=== PATIENT | female | born 1945 | race Caucasian/White ===

== ENCOUNTER → 2016-10-29 | Outpatient (CLI) | payer MEDICARE, OTHER ==
[~2016-10-29] MED LIST: AC500T PO; ASP81CT PO; ATEN25TA PO; ATN25T; ATR20T; CHOL500044 PO; CINN500C2 PO; CLON0.1T PO; DIPH25CA79 PO; DOXA1TAB2 PO; FAMO40TA72 PO; GMFB600T; HCTZ12.5T PO; LOSA50TA36 PO; MAGN-47 PO; METHOTREXATE PO; MILK OF MAGNESIA PO; MTX2.5T PO; OMEG1CAP24 PO; OXYC-12 PO; OXYC-188 PO; PHT5T PO; PRD20T PO; SENN1TAB76 PO; SUCR1TAB PO; TRM50T PO; WRF5T PO; [UNRECOGNIZED DRUG - CODE]
--- OUTSIDE RECORDS SUMMARY | 2016-10-29 13:49 | XMS REPORT | Continuity of Care Document ---
Author Author [facility] Organization [facility] Address Unknown Phone Unavailable Care Team Providers Care Meat Smoker Name Role Phone MONICA GREGORIO MD PCP Insurance Providers Payer Name Policy Number Subscriber Name Relationship Wps Medicare [id number] Narinder Gandara 18 Self / Same As Patient [employer] [id number] Narinder Gandara 18 Self / Same As Patient Advance Directives Directive Response Recorded Date/Time Advance Directives No 07/28/16 2:00pm Health Care Power of Pipe Line Repairer No 07/28/16 2:00pm Organ Donor No 07/28/16 2:00pm Resuscitation Status Full Code 07/28/16 2:00pm Problems Active Problems Medical Problem Onset Date Status Acute urticaria Unknown Acute Acute urticaria Unknown Acute Epigastric abdominal pain Unknown Acute Hypertension Unknown Acute Tachycardia Unknown Acute Medications Current Home Medications Medication Dose Units Route Directions Days/Qty Instructions Start Date Aspirin 81 Mg 81 Mg Oral Daily 09/01/11 Hydrochlorothiazide 12.5 Mg 12.5 Mg Oral Daily 09/01/11 Clonidine Hcl 0.1 Mg 0.1 Mg Oral Twice A Day 14 01/18/16 Famotidine 40 Mg 40 Mg Oral Daily 20 07/17/16 Sucralfate 1 Gm 1 Gm Oral Three Times A Day Before Meals 07/28/16 Doxazosin Mesylate 1 Mg 1 Mg Oral Twice A Day 07/28/16 Losartan Potassium 50 Mg 50 Mg Oral Twice A Day 07/28/16 [place]-3 Fatty Acids/Fish Oil 1 Each 1 Each Oral Daily 07/28/16 Cholecalciferol (Vitamin D3) 5,000 Unit 5,000 Unit Oral Weekly 07/28 Cinnamon Bark 500 Mg 500 Mg Oral Daily 07/28/16 Diphenhydramine Hcl 25 Mg 25 Mg Oral As Needed 07/28/16 Past Home Medications Medication Directions Ordered Status Papaverine Hcl 150 Mg Tab, 05/03/07 Discontinued Atenolol 25 Mg Tablet, 05/03/07 Discontinued Gemfibrozil 600 Mg Tablet, 05/03/07 Discontinued Atorvastatin Calcium 20 Mg Tablet, 05/03/07 Discontinued Atenolol 25 Mg Tablet, 1 Each Oral Twice A Day 09/01/11 Discontinued Oxycodone/Acetaminophen 1 Each Tablet, 1 - 2 Each Oral Three Times A Day as needed 09/01/11 Discontinued Phytonadione 5 Mg Tab, 1 Tab Oral Daily as needed 09/01/11 Discontinued Senna 1 Ea Tablet, 1 Ea Oral Twice A Day 09/01/11 Discontinued Tramadol Hcl 50 Mg Tab, 50 Mg Oral Every 6 Hours as needed 09/01/11 Discontinued Warfarin Sodium 5 Mg Tab, 5 Mg Oral Daily@18 09/01/11 Discontinued Acetaminophen 500 Mg Tablet, 1000 Mg Oral Every 6 Hours as needed 09/01/11 Discontinued Methotrexate 2.5 Mg Tab, 7.5 Mg Oral Every Mon And Tues 09/01/11 Discontinued Magnesium Hydroxide 400 Mg/5 Ml Oral.susp, 30 Ml Oral Twice A Day as needed 09/01/11 Discontinued Prednisone 20 Mg Tab, 20 Mg Oral Twice A Day 06/09/14 Discontinued Social History Social History Problem Response Recorded Date/Time Alcohol Use Denies Use 01/22/2016 9:48pm Recreational Drug Use No 01/22/2016 9:48pm Recent Foreign Travel No 07/28/2016 1:59pm Recent Infectious Disease Exposure No 07/28/2016 1:59pm Sexually Transmitted Disease No 07/28/2016 2:00pm HIV/AIDS No 07/28/2016 2:00pm Smoking Status Never a Smoker 07/28/2016 2:00pm Recent Hopitalizations No 07/28/2016 2:00pm Sexually Transmitted Disease No 07/28/2016 2:00pm Query Response Start Date Stop Date Smoking Status Never a Smoker Hospital Discharge Instructions No hospital discharge instructions. Plan of Care Discharge Date 07/28/16 2:12pm Prescriptions See Medication Section Functional Status No functional status results. Allergies, Adverse Reactions, Alerts Allergen Type Severity Reaction Status Last Updated triamterene ([id number]) Allergy Unknown Active 07/28/16 metoprolol ([id number]) Allergy Mild Active 01/22/16 Etanercept Allergy Intermediate HTN Active 01/22/16 Immunizations No immunization records. Vital Signs Acute Vital Signs Vital Response Date/Time Temperature (Fahrenheit) 97.1 degrees F (97.6 - 99.5) 07/17/2016 4:45pm Temperature (Calculated Celsius) 36.22207 degrees C (36.4 - 37.5) 07/17/2016 4:45pm Pulse Rate (adult) 50 bpm (60 - 90) 07/17/2016 6:10pm Respiratory Rate 16 bpm (12 - 24) 07/17/2016 6:10pm O2 Sat by Pulse Oximetry 99 % (88 - 100) 07/17/2016 6:10pm Blood Pressure 137/75 mm Hg 07/17/2016 6:10pm Blood Pressure Mean 111 mm Hg 07/17/2016 4:45pm Pain Numeric Pain Scale 3 07/17/2016 6:10pm Height (Feet) 5 feet 07/28/2016 1:59pm Height (Inches) 4.00 inches 07/28/2016 1:59pm Height (Calculated Centimeters) 162.148300 cm 07/28/2016 1:59pm Weight (Pounds) 201 pounds 07/28/2016 1:59pm Weight (Ounces) 6.0 oz 07/28/2016 1:59pm Weight (Calculated Grams) 32900.16 gm 07/28/2016 1:59pm Weight (Calculated Kilograms) 91.867787 kilograms 07/28/2016 1:59pm Calculated BMI 34.6 07/28/2016 1:59pm Capillary Refill Capillary Refill Less Than 3 Seconds 07/17/2016 4:45pm Results Laboratory Results Test Name Result Units Flags Reference Collection Date/Time Result Date/ Time Comments White Blood Count 8.7 10^3/uL 4.3-11.0 07/17/2016 4:55pm 07/17/2016 5: 08pm Red Blood Count 4.39 10^6/uL 4.35-5.85 07/17/2016 4:55pm 07/17/2016 5: 08pm Hemoglobin 13.1 G/DL 11.5-16.0 07/17/2016 4:55pm 07/17/2016 5:08pm Hematocrit 38 % 35-52 07/17/2016 4:55pm 07/17/2016 5:08pm Mean Corpuscular Volume 87 FL 80-99 07/17/2016 4:55pm 07/17/2016 5: 08pm Mean Corpuscular Hemoglobin 30 PG 25-34 07/17/2016 4:55pm 07/17/2016 5: 08pm Mean Corpuscular Hemoglobin Concent 34 G/DL 32-36 07/17/2016 4:55pm 5:08pm Red Cell Distribution Width 13.5 % 10.0-14.5 07/17/2016 4:55pm 2015 5:08pm Platelet Count 233 10^3/uL 130-400 07/17/2016 4:55pm 07/17/2016 5:08pm Mean Platelet Volume 10.5 FL H 7.4-10.4 07/17/2016 4:55pm 07/17/2016 5: 08pm Neutrophils (%) (Auto) 60 % 42-75 07/17/2016 4:55pm 07/17/2016 5:08pm Lymphocytes (%) (Auto) 28 % 12-44 07/17/2016 4:55pm 07/17/2016 5:08pm Monocytes (%) (Auto) 10 % 0-12 07/17/2016 4:55pm 07/17/2016 5:08pm Eosinophils (%) (Auto) 1 % 0-10 07/17/2016 4:55pm 07/17/2016 5:08pm Basophils (%) (Auto) 1 % 0-10 07/17/2016 4:55pm 07/17/2016 5:08pm Neutrophils # (Auto) 5.3 X 10^3 1.8-7.8 07/17/2016 4:55pm 07/17/2016 5: 08pm Lymphocytes # (Auto) 2.5 X 10^3 1.0-4.0 07/17/2016 4:55pm 07/17/2016 5: 08pm Monocytes # (Auto) 0.8 X 10^3 0.0-1.0 07/17/2016 4:55pm 07/17/2016 5: 08pm Eosinophils # (Auto) 0.1 10^3/uL 0.0-0.3 07/17/2016 4:55pm 07/17/2016 5 :08pm Basophils # (Auto) 0.0 10^3/uL 0.0-0.1 07/17/2016 4:55pm 07/17/2016 5: 08pm Prothrombin Time 12.6 SEC 12.2-14.7 07/17/2016 4:55pm 07/17/2016 5: 22pm INR Comment 1.0 0.8-1.4 07/17/2016 4:55pm 07/17/2016 5:22pm INTERPRETIVE DATA SUGGESTED THERAPEUTIC RANGE FOR INR'S: VENOUS THROMBOSIS, PULMONARY EMBOLISM, OR PREVENTION OF SYSTEMIC EMBOLISM (EG. IN ATRIAL FIBRILLATION): 2.0 - 3.0 MECHANICAL PROSTHETIC HEART VALVES: 2.5 - 3.5* *NOTE: INR'S UP TO 4.5 MAY BE NECESSARY IN SELECTED GROUPS OF HIGH RISK PATIENTS. [employer] OF [employer]ST PH[employer]ICIANS CONSENSUS CONFERENCE ON ANTITHROMBOTIC THERAPY (2000). Activated Partial Thromboplast Time 25 SEC 24-35 07/17/2016 4:55pm 5:22pm Sodium Level 141 MMOL/L 135-145 07/17/2016 4:55pm 07/17/2016 5:32pm Potassium Level 3.8 MMOL/L 3.6-5.0 07/17/2016 4:55pm 07/17/2016 5:32pm Chloride Level 108 MMOL/L H 98-107 07/17/2016 4:55pm 07/17/2016 5:32pm Carbon Dioxide Level 24 MMOL/L 21-32 07/17/2016 4:55pm 07/17/2016 5: 32pm Anion Gap 9 MMOL/L 5-14 07/17/2016 4:55pm 07/17/2016 5:32pm Blood Urea Nitrogen 19 MG/DL H 7-18 07/17/2016 4:55pm 07/17/2016 5:32pm Creatinine 0.79 MG/DL 0.60-1.30 07/17/2016 4:55pm 07/17/2016 5:32pm BUN/Creatinine Ratio 24 07/17/2016 4:55pm 07/17/2016 5:32pm Estimat Glomerular Filtration Rate > 60 07/17/2016 4:55pm 2015 5:32pm GFR INTERPRETIVE DATA UNITS FOR ESTIMATED GFR (eGFR): mL/min/1.73 M2 REFERENCE RANGE FOR ESTIMATED GFR (eGFR) eGFR NORMAL eGFR >60 MODERATELY DECREASED eGFR 30-59 SEVERLY DECREASED eGFR 15-29 KIDNEY FAILURE <15 (OR DIALYSIS) Glucose Level 96 MG/DL 70-105 07/17/2016 4:55pm 07/17/2016 5:32pm Calcium Level 9.3 MG/DL 8.5-10.1 07/17/2016 4:55pm 07/17/2016 5:32pm Magnesium Level 2.0 MG/DL 1.8-2.4 07/17/2016 4:55pm 07/17/2016 5:32pm Total Bilirubin 0.5 MG/DL 0.1-1.0 07/17/2016 4:55pm 07/17/2016 5:32pm Alkaline Phosphatase 56 U/L 40-136 07/17/2016 4:55pm 07/17/2016 5:32pm Aspartate Amino Transf (AST/SGOT) 22 U/L 5-34 07/17/2016 4:55pm 2015 5:32pm Alanine Aminotransferase (ALT/SGPT) 24 U/L 0-55 07/17/2016 4:55pm 07/17 5:32pm Troponin I < 0.30 NG/ML <0.30 07/17/2016 4:55pm 07/17/2016 5:36pm Myoglobin 46.3 NG/ML 10.0-92.0 07/17/2016 4:55pm 07/17/2016 5:36pm Total Protein 6.0 G/DL L 6.4-8.2 07/17/2016 4:55pm 07/17/2016 5:32pm Albumin 3.7 G/DL 3.2-4.5 07/17/2016 4:55pm 07/17/2016 5:32pm Lipase 46 U/L 8-78 07/17/2016 4:55pm 07/17/2016 5:32pm Procedures Procedure Status Date Provider(s) Tracing only of electrocardiogram Completed 07/17/16 TRAM ZAMORANO MD Encounters Encounter Location Arrival/Admit Date Discharge/Depart Date Attending Provider Departed Clinic [facility] 07/28/16 5:36am 10/26/16 2: 12pm TRAM PERALTA MD Departed Emergency Room [facility] 07/17/16 4:41pm 07/17 6:09pm TRAM ZAMORANO MD
--- NOTE | 2016-11-01 16:47 | Diagnostic Imaging Report ---
Bilateral screening mammogram. The current study was also evaluated with a Computer Aided Detection (CAD) system. INDICATION: Screening. No current complaints stated on the questionnaire. COMPARISON: 05/07/14 FINDINGS: The breasts are composed of scattered fibroglandular densities. There are scattered benign-appearing calcifications seen. Allowing for technique and positional differences, no suspicious change is seen. IMPRESSION: No significant change. ACR BI-RADS Category 2: Benign findings. Result letter will be mailed to the patient. Note: At least 10% of breast cancer is not imaged by mammography. Dictated by: Dictated on workstation # [id number]
== END ==
LOC: RAD 13:45
PROVIDERS: ATTEND Nurse Practitioner Family
DX: Z12.31 Encounter for screening mammogram for malignant neoplasm of breast (principal)

== ENCOUNTER 2016-11-29 09:44 | Emergency (ER) | payer MEDICARE, OTHER ==
[~2016-11-29] VITALS: Ht 165.1 cm; Wt 86.2 kg
--- OUTSIDE RECORDS SUMMARY | 2016-11-29 09:50 | XMS REPORT | Continuity of Care Document ---
Author Author [facility] Organization [facility] Address Unknown Phone Unavailable Care Team Providers Care Licensing Coordinator Name Role Phone MONICA GREGORIO MD PCP Insurance Providers Payer Name Policy Number Subscriber Name Relationship Wps Medicare [id number] Narinder Gandara 18 Self / Same As Patient [place] [employer] [id number] Narinder Gandara 17 Self / Same As Patient Advance Directives Directive Response Recorded Date/Time Advance Directives No 07/28/16 2:00pm Health Care Power of X Ray Technician No 07/28/16 2:00pm Organ Donor No 07/28/16 [...] 50 Mg Oral Twice A Day 07/28/16 [place]-3 Fatty Acids/Fish Oil 1 Each 1 Each [...] Type Severity Reaction Status Last Updated triamterene ([id number]) Allergy Unknown Active 07/28/16 metoprolol ([id number]) Allergy Mild Active 01/22/16 Etanercept Allergy Intermediate HTN Active 01/22/16 Immunizations No immunization records. Vital Signs Acute Vital Signs Vital Response Date/Time Temperature (Fahrenheit) 97.1 degrees F (97.6 - 99.5) 07/17/2016 4:45pm Temperature (Calculated Celsius) 36.13533 degrees C (36.4 - 37.5) 07/17/2016 4:45pm [...] 4.00 inches 07/28/2016 1:59pm Height (Calculated Centimeters) 162.342018 cm 07/28/2016 1:59pm Weight (Pounds) 201 pounds 07/28/2016 1:59pm Weight (Ounces) 6.0 oz 07/28/2016 1:59pm Weight (Calculated Grams) 41372.16 gm 07/28/2016 1:59pm Weight (Calculated Kilograms) 91.926644 kilograms 07/28/2016 1:59pm Calculated BMI 34.6 07/28/2016 [...] SELECTED GROUPS OF HIGH RISK PATIENTS. [employer] [employer] CONSENSUS CONFERENCE ON [...] Discharge/Depart Date Attending Provider Departed Clinic [facility] 07/28/16 5:36am 10/26/16 2: 12pm TRAM PERALTA MD Departed Emergency Room [facility] 07/17/16 4:41pm 07/17 6:09pm TRAM ZAMORANO MD
[2016-11-29] MEDS ORDERED: NS IV 500 ML 500 ML IV ONE ×2 (10:26→12:20)
--- NOTE | 2016-11-29 11:05 | ED General ---
General Chief Complaint: Dizziness/Syncope Stated Complaint: WEAKNESS Nursing Triage Note: c/o intermittant dizziness x 1 month. States BP has been fluctuating. Occasional cough. Nursing Sepsis Screen: No Definite Risk Source of Information: Patient Exam Limitations: No Limitations History of Present Illness Time Seen by Provider: 10:10 Initial Comments Here with overall not feeling well for the last month. She was diagnosed with influenza month ago and took the Tamiflu. Since she is reporting persistent weakness and still has some cough. Denies dysuria. States that she is persistently weak. Denies vomiting or diarrhea. Reports taking her meds as directed. Timing/Duration: 1 Week, Changing Over Time, Getting Worse Severity: Moderate Associated Systoms: No Chest Pain, CoughNo Fever/Chills, No Nausea/Vomiting, No Shortness of Air, Weakness Allergies and Home Medications Allergies Coded Allergies: etanercept (Verified Allergy, Intermediate, HTN, 01/22/16) metoprolol (Verified Allergy, Mild, 01/22/16) triamterene (Verified Allergy, Unknown, 07/28/16) Home Medications Cholecalciferol (Vitamin D3) 5,000 Unit Tablet 5,000 UNIT PO WEEKLY (Reported) Cinnamon Bark 500 Mg Capsule 500 MG PO DAILY (Reported) Clonidine HCl 0.1 Mg Tablet #14 0.1 MG PO BID Prescribed by: BELEN WONG on 01/18/16 1329 Diphenhydramine HCl 25 Mg Capsule 25 MG PO PRN (Reported) Doxazosin Mesylate 1 Mg Tablet 1 MG PO BID (Reported) Famotidine 40 Mg Tablet #20 40 MG PO DAILY Prescribed by: TRAM ZAMORANO MD on 07/17/16 1802 Hydrochlorothiazide 12.5 Mg Cap 12.5 MG PO DAILY (Reported) Losartan Potassium 50 Mg Tablet 50 MG PO BID (Reported) Alsey-3 Fatty Acids/Fish Oil 1 Each Capsule.dr 1 EACH PO DAILY (Reported) Constitutional: see HPINo chills, dizzinessNo fever EENTM: No nose congestion, No throat pain Respiratory: coughNo short of breath Cardiovascular: No chest pain, No edema Gastrointestinal: no symptoms reportedNo nausea, No vomiting Musculoskeletal: no symptoms reported Skin: no symptoms reported Psychiatric/Neurological: See HPI Anxiety Weakness Hematologic/Lymphatic: No Symptoms Reported All Other Systems Reviewed Negative Unless Noted: Yes Past Xcviham-Zavuvw-Olbfat Hx Patient Social History Alcohol Use: Denies Use Recreational Drug Use: No Smoking Status: Never a Smoker Recent Foreign Travel: No Contact w/Someone Who Travel: No Recent Infectious Disease Expo: No Recent Hopitalizations: No Immunizations Up To Date Tetanus Booster (TDap): Unknown Date of Influenza Vaccine: Jul 21, 2016 Seasonal Allergies Seasonal Allergies: No Surgeries HX Surgeries: Yes (EGD/COLONOSCOPY, BACK SURGERY) Surgeries: Gallbladder, Hysterectomy, Joint Replacement Respiratory Hx Respiratory Disorders: No Cardiovascular Hx Cardiac Disorders: Yes (ELEVATED TRIGLYCERIDES) Cardiac Disorders: Chronic Edema/Swelling, High Cholesterol, Hypertension, Palpitations Neurological Hx Neurological Disorders: Yes (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) Neurological Disorders: TIA, Vertigo Reproductive System Hx Reproductive Disorders: Yes (BENIGN TUMOR -HYSTERECTOMY AGE 29) Sexually Transmitted Disease: No HIV/AIDS: 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 Genitourinary Hx Genitourinary Disorders: Yes (AGE 8-KIDNEY INFECTION) Gastrointestinal Hx Gastrointestinal Disorders: Yes Gastrointestinal Disorders: Gastroesophageal Reflux, Chronic Constipation Musculoskeletal Hx Musculoskeletal Disorders: Yes (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) Musculoskeletal Disorders: Arthritis, Chronic Back Pain, Contracture Endocrine Hx Endocrine Disorders: No HEENT HX ENT Disorders: Yes (GLASSES, PARTIAL DENTURE) Loss of Vision: Bilateral Hearing Impairment: Denies Cancer Hx Cancer: No Psychosocial Hx Psychiatric Problems: No Integumentary HX Skin/Integumentary Disorder: Yes Skin/Integumentary Disorders: Psoriasis Blood Transfusions Hx Blood Disorders: No Adverse Reaction to a Blood Tr: No (N/A) Reviewed Nursing Assessment Reviewed/Agree w Nursing PMH: Yes Family Medical History Significant Family History: No Pertinent Family Hx Physical Exam Vital Signs Vital Sign - Last 12Hours 11/29/16 09:56 Temp 97.5 Pulse 62 Resp 18 B/P 150/76 Pulse Ox 98 O2 Delivery Room Air Capillary Refill : Less Than 3 Seconds General Appearance: No Apparent Distress WD/WN HEENT: PERRL/EOMI Pharynx Normal Neck: Non Tender Supple Respiratory: Lungs Clear Normal Breath Sounds Cardiovascular: Regular Rate, Rhythm No Murmur Gastrointestinal: Non Tender Soft Back: Normal Inspection No CVA Tenderness No Vertebral Tenderness Extremity: Non Tender No Calf Tenderness Neurologic/Psychiatric: Alert Oriented x3 Skin: Normal Color Warm/Dry Progress/Results/Core Measures Results/Orders Lab Results Laboratory Tests Test 11/29/16 11:05 11/29/16 11:10 Range/Units Alanine Aminotransferase (ALT/SGPT) 39 0-55 U/L Albumin 3.7 3.2-4.5 G/DL Alkaline Phosphatase 68 40-136 U/L Anion Gap 16 H 5-14 MMOL/L Aspartate Amino Transf (AST/SGOT) 26 5-34 U/L BUN/Creatinine Ratio 28 Basophils # (Auto) 0.0 0.0-0.1 10^3/uL Basophils (%) (Auto) 0 0-10 % Blood Urea Nitrogen 21 H 7-18 MG/DL C-Reactive Protein High Sensitivity 0.36 0.00-0.50 MG/DL Calcium Level 9.7 8.5-10.1 MG/DL Carbon Dioxide Level 20 L 21-32 MMOL/L Chloride Level 104 98-107 MMOL/L Creatinine 0.75 0.60-1.30 MG/DL D-Dimer 0.96 H 0.00-0.49 UG/ML Eosinophils # (Auto) 0.0 0.0-0.3 10^3/uL Eosinophils (%) (Auto) 0 0-10 % Estimat Glomerular Filtration Rate > 60 Glucose Level 88 70-105 MG/DL Hematocrit 42 35-52 % Hemoglobin 14.8 11.5-16.0 G/DL Lymphocytes # (Auto) 1.9 1.0-4.0 X 10^3 Lymphocytes (%) (Auto) 17 12-44 % Magnesium Level 2.0 1.8-2.4 MG/DL Mean Corpuscular Hemoglobin 30 25-34 PG Mean Corpuscular Hemoglobin Concent 35 32-36 G/DL Mean Corpuscular Volume 85 80-99 FL Mean Platelet Volume 10.7 H 7.4-10.4 FL Monocytes # (Auto) 1.2 H 0.0-1.0 X 10^3 Monocytes (%) (Auto) 11 0-12 % Neutrophils # (Auto) 7.9 H 1.8-7.8 X 10^3 Neutrophils (%) (Auto) 72 42-75 % Platelet Count 226 130-400 10^3/uL Potassium Level 3.1 L 3.6-5.0 MMOL/L Red Blood Count 4.92 4.35-5.85 10^6/uL Red Cell Distribution Width 13.8 10.0-14.5 % Sodium Level 140 135-145 MMOL/L Thyroid Stimulating Hormone (TSH) 3.23 0.35-4.94 UIU/ML Total Bilirubin 0.7 0.1-1.0 MG/DL Total Protein 6.3 L 6.4-8.2 G/DL Troponin I < 0.30 <0.30 NG/ML White Blood Count 11.1 H 4.3-11.0 10^3/uL Urine Bacteria NEGATIVE /HPF Urine Bilirubin NEGATIVE NEGATIVE Urine Casts NONE /LPF Urine Clarity SLIGHTLY CLOUDY Urine Color YELLOW Urine Crystals NONE /LPF Urine Culture Indicated NO Urine Glucose (UA) NEGATIVE NEGATIVE Urine Ketones NEGATIVE NEGATIVE Urine Leukocyte Esterase 1+ H NEGATIVE Urine Mucus NEGATIVE /LPF Urine Nitrite NEGATIVE NEGATIVE Urine Protein NEGATIVE NEGATIVE Urine RBC NONE /HPF Urine RBC (Auto) NEGATIVE NEGATIVE Urine Specific [place] 1.010 L 1.016-1.022 Urine Squamous Epithelial Cells 0-2 /HPF Urine Urobilinogen NORMAL NORMAL MG/DL Urine WBC NONE /HPF Urine pH 6.5 5-9 My Orders Orders-BELEN WONG MD Cbc With Automated Diff (11/29/16 10:26) Comprehensive Metabolic Panel (11/29/16 10:26) Hs C Reactive Protein (11/29/16 10:26) Fibrin Degradation Products (11/29/16 10:26) Magnesium (11/29/16 10:26) Troponin I (11/29/16 10:26) Ua Culture If Indicated (11/29/16 10:26) Saline Lock/Iv-Start (11/29/16 10:26) Ns Iv 500 Ml (Sodium Chloride 0.9%) (11/29/16 10:26) Ekg Tracing (11/29/16 10:26) Chest Pa/Lat (2 View) (11/29/16 10:26) Thyroid Stimulating Hormone (11/29/16 10:26) Ct Angio Chest W (11/29/16 12:09) Iohexol Injection (Omnipaque 350 Mg/Ml 1 (11/29/16 12:15) Sodium Chloride Flush (Catheter Flush Sy (11/29/16 12:15) Ns (Ivpb) (Sodium Chloride 0.9% Ivpb Bag (11/29/16 12:15) Ns Iv 500 Ml (Sodium Chloride 0.9%) (11/29/16 12:20) Medications Given in ED Current Medications Medications Dose Ordered Sig/Cheng Route Start Time Stop Time Status Last Admin Dose Admin Iohexol 125 ml ONCE ONCE IV 11/29/16 12:15 11/29/16 12:18 DC 11/29/16 13:35 125 ML Sodium Chloride 500 ml @ 0 mls/hr Q0M ONCE IV 11/29/16 10:26 11/29/16 10:29 DC 11/29/16 11:58 500 MLS/HR Sodium Chloride 500 ml @ 0 mls/hr Q0M ONCE IV 11/29/16 12:20 11/29/16 12:21 DC 11/29/16 13:09 0 MLS/HR Sodium Chloride 100 ml 100 ml ONCE ONCE IV 11/29/16 12:15 11/29/16 12:18 DC 11/29/16 13:35 80 ML Vital Signs/I&O Vital Sign - Last 12Hours 11/29/16 09:56 Temp 97.5 Pulse 62 Resp 18 B/P 150/76 Pulse Ox 98 O2 Delivery Room Air Blood Pressure Mean: 100 Progress Note : Progress Note Seen and evaluated. IV, labs, normal saline 500 mL bolus, EKG, chest x-ray and UA ordered. Monitor patient. D-dimer is elevated. CT angiogram chest ordered. Repeat normal saline 500 mL bolus. Monitor patient. 1435: I did discuss the case with Dr. Manuel. We did review workup including CT scan results. There was a note of pulmonary nodule that will need recheck in 4 months. I will send chart to Dr. Manuel's office. She will follow CT results and recommendations. All findings and concerns were discussed with the patient and family who agree. Patient has follow-up appointment with Dr. Manuel's nurse practitioner on and she will keep that appointment. Discharged home with return precautions. Patient verbalized understanding instructions and agreement with plan. ECG Initial ECG Impression Date: Nov 29, 2016 Initial ECG Impression Time: 11:26 Initial ECG Rate: 94 Initial ECG Rhythm: Normal Sinus Comment Sinus rhythm with leftward axis. Diffuse T-wave flattening. No evidence of ST elevation IN. Similar to previous of 07/17/16. Interpreted by me. Diagnostic Imaging Diagonstic Imaging: Xray Plain Films/CT/US/NM/MRI: chest Comments NAME: NARINDER SHAW Alex [facility] REC#: [id number] PT STATUS: REG ER : 1945 PHYSICIAN: BELEN WONG MD ADMIT DATE: 11/29/16/ER Signed Date of Exam: 11/29/16 CHEST PA/LAT (2 VIEW) PA and lateral views of the chest Indication: Dizziness. Cough. Findings: The lungs are clear. The heart size is normal. There is no effusion or pneumothorax The mediastinum and ayse appear unremarkable. Impression: Unremarkable study. Dictated by: Dictated on workstation # [id number] Dict: 11/29/16 1207 Trans: 11/29/[address] [facility] [id number] Interpreted by: MANUELA HARDY MD Electronically signed by:MANUELA HARDY MD 11/29/161208 Diagonstic Imaging: CT Plain Films/CT/US/NM/MRI: chest Comments NAME: NARINDER SHAW [facility] REC#: [id number] PT STATUS: REG ER : 1945 PHYSICIAN: BELEN WONG MD ADMIT DATE: 11/29/16/ER Signed Date of Exam: 11/29/16 CT ANGIO CHEST W PROCEDURE: CT angiography of the chest with contrast. TECHNIQUE: Multiple contiguous axial images were obtained through the chest after uneventful bolus administration of intravenous contrast. Reconstructed CTA MIP acquisitions were also performed. INDICATION: positive d-dimer. Dizziness. Weakness. 125 ML of Omnipaque 350 given the intravenously. Findings: The pulmonary arteries are well opacified with no filling defects to suggest pulmonary embolism. The thoracic aorta is normal in caliber. There are no dissection or aneurysm. Indeterminate pulmonary nodules are seen in the left the lower lobe and inferior lingula nodules up to 8 mm in size, and the nodule in the left suprahilar region centrally in the left upper lobe measuring 7 mm. No prior from studies are available to compare. No significant consolidation or mass. The heart size is at the upper limits of normal. There is a tiny pericardial effusion. No pleural effusion. No mediastinal mass or significantly enlarged lymph nodes is seen. No hilar or axillary lymphadenopathy. Sections of the upper abdomen demonstrate the diffuse hepatic steatosis. Cholecystectomy clips are seen. The osseous structures demonstrate mild degenerative changes. Impression: 1. No PE or aortic dissection. 2. Tiny pericardial effusion of uncertain significance. 3. Indeterminate the left suprahilar and left basilar pulmonary nodules up to 8 mm in size. Followup low dose the CT scan of the chest without contrast in 4 months is recommended for reevaluation. Dictated by: Dictated on workstation # [id number] Dict: 11/29/16 1421 Trans: 11/29/[address] [facility] [id number] Interpreted by: MANUELA HARDY MD Electronically signed by:MANUELA HARDY MD 11/29/16 1425 Departure Impression Impression: Primary Impression: Near syncope Additional Impressions: Hypokalemia Pulmonary nodule Disposition: HOME, SELF-CARE Condition: Improved Departure-Patient Inst. Decision time for Depature: 14:38 Referrals: MONICA MANUEL MD (PCP/Family) Primary Care Physician Patient Instructions: Hypokalemia (DC), Single Pulmonary Nodule, Syncope ( Fainting) (DC) Add. Discharge Instructions: All discharge instructions reviewed with patient and/or family. Voiced understanding. Follow-up with Dr. Manuel's office on as scheduled. Stop hydrochlorothiazide as directed by Dr. Manuel. This will be reviewed on at your next appointment. Continue other medications as prescribed. Eat a normal diet and drink a normal amount of fluids. Slowly return to activity. Return for worse pain, fever, vomiting, weakness, facial droop, slurred speech or other concerns as needed. Copy Copies To 1: MONICA MANUEL MD, TIMOTHY D MD Nov 29, 2016 11:05
[2016-11-29 11:12] LABS: BASOPHILS % (AUTO) 0 % (0-10); EOSINOPHILS % (AUTO) 0 % (0-10); LYMPHOCYTES # (AUTO) 1.9 X 10^3 (1.0-4.0); LYMPHOCYTES % (AUTO) 17 % (12-44); MEAN CORPUSCULAR HEMOGLOBIN 30 PG (25-34); MEAN CORPUSCULAR HGB CONC 35 G/DL (32-36); MEAN CORPUSCULAR VOLUME 85 FL (80-99); MEAN PLATELET VOLUME 10.7 FL (7.4-10.4); MONOCYTES # (AUTO) 1.2 X 10^3 (0.0-1.0); MONOCYTES % (AUTO) 11 % (0-12); NEUTROPHILS # (AUTO) 7.9 X 10^3 (1.8-7.8); NEUTROPHILS % (AUTO) 72 % (42-75); PLATELET COUNT 226 10^3/uL (130-400); RED BLOOD COUNT 4.92 10^6/uL (4.35-5.85); RED CELL DISTRIBUTION WIDTH 13.8 % (10.0-14.5); WHITE BLOOD COUNT 11.1 10^3/uL (4.3-11.0)
[2016-11-29 11:22] LABS: BILIRUBIN,URINE NEGATIVE (NEGATIVE); KETONES,URINE NEGATIVE (NEGATIVE); LEUKOCYTE ESTERASE ,URINE 1+ (NEGATIVE); NITRITE,URINE NEGATIVE (NEGATIVE); PH,URINE 6.5 (5-9); PROTEIN,URINE NEGATIVE (NEGATIVE); UROBILINOGEN,URINE NORMAL (NORMAL)
[2016-11-29 11:31] LABS: SQUAMOUS EPITHELIAL CELL,UR 0-2 /HPF
[2016-11-29 11:32] LABS: ALANINE AMINOTRANSFERASE 39 U/L (0-55); ALBUMIN 3.7 G/DL (3.2-4.5); ANION GAP 16 MMOL/L (5-14); ASPARTATE AMINO TRANSFERASE 26 U/L (5-34); BILIRUBIN,TOTAL 0.7 MG/DL (0.1-1.0); BLOOD UREA NITROGEN 21 MG/DL (7-18); BUN/CREATININE RATIO 28; CALCIUM 9.7 MG/DL (8.5-10.1); CARBON DIOXIDE 20 MMOL/L (21-32); CHLORIDE 104 MMOL/L (98-107); CREATININE SERUM 0.75 MG/DL (0.60-1.30); GFR ESTIMATED > 60; GLUCOSE 88 MG/DL (70-105); POTASSIUM 3.1 MMOL/L (3.6-5.0); SODIUM 140 MMOL/L (135-145); TOTAL PROTEIN 6.3 G/DL (6.4-8.2); hs C REACTIVE PROTEIN 0.36 MG/DL (0.00-0.50)
[2016-11-29 11:56] LABS: THYROID STIMULATING HORMONE 3.23 UIU/ML (0.35-4.94); TROPONIN I < 0.30 NG/ML (<0.30)
--- NOTE | 2016-11-29 12:07 | Diagnostic Imaging Report ---
PA and lateral views of the chest Indication: Dizziness. Cough. Findings: The lungs are clear. The heart size is normal. There is no effusion or pneumothorax The mediastinum and ayse appear unremarkable. Impression: Unremarkable study. Dictated by: Dictated on workstation # [id number]
[2016-11-29] MEDS ORDERED: CATHETER FLUSH 10 ML SYR IV PRN (12:15)
[2016-11-29] MEDS ORDERED: NS 100 ML (IVPB) BAG IV ONE (12:15)
[2016-11-29] MEDS ORDERED: IOHEXOL 350 MG/ML 150 ML (OMNIPAQUE 350) VIAL IV ONE (12:15)
--- NOTE | 2016-11-29 14:25 | Diagnostic Imaging Report ---
PROCEDURE: CT angiography of the chest with contrast. TECHNIQUE: Multiple contiguous axial images were obtained through the chest after uneventful bolus administration of intravenous contrast. Reconstructed CTA MIP acquisitions were also performed. INDICATION: positive d-dimer. Dizziness. Weakness. 125 ML of Omnipaque 350 given the intravenously. Findings: The pulmonary arteries are well opacified with no filling defects to suggest pulmonary embolism. The thoracic aorta is normal in caliber. There are no dissection or aneurysm. Indeterminate pulmonary nodules are seen in the left the lower lobe and inferior lingula nodules up to 8 mm in size, and the nodule in the left suprahilar region centrally in the left upper lobe measuring 7 mm. No prior from studies are available to compare. No significant consolidation or mass. The heart size is at the upper limits of normal. There is a tiny pericardial effusion. No pleural effusion. No mediastinal mass or significantly enlarged lymph nodes is seen. No hilar or axillary lymphadenopathy. Sections of the upper abdomen demonstrate the diffuse hepatic steatosis. Cholecystectomy clips are seen. The osseous structures demonstrate mild degenerative changes. Impression: 1. No PE or aortic dissection. 2. Tiny pericardial effusion of uncertain significance. 3. Indeterminate the left suprahilar and left basilar pulmonary nodules up to 8 mm in size. Followup low dose the CT scan of the chest without contrast in 4 months is recommended for reevaluation. Dictated by: Dictated on workstation # [id number]
[2016-11-29] MEDS ORDERED: KCL 10 MEQ TAB (MICRO K) PO ONE (14:45)
[2016-11-29 15:02] VITALS: BP 132/70
== END 2016-11-29 15:02 | disposition home or self-care (01) ==
LOC: EDUNIT# 09:44 → ER 09:45
DX: R55 Syncope and collapse (principal); E87.6 Hypokalemia; J90 Pleural effusion, not elsewhere classified; R91.8 Other nonspecific abnormal finding of lung field; I10 Essential (primary) hypertension; Z79.899 Other long term (current) drug therapy
CPT/HCPCS: 36415; 71020; 71275; 80053; 81000; 83735; 84443; 84484; 85025; 85379; 86141; 93005; 96360; 96361

== ENCOUNTER → 2017-04-15 | Outpatient (CLI) | payer MEDICARE, OTHER ==
--- NOTE | 2017-04-15 15:56 | Diagnostic Imaging Report ---
PROCEDURE: CT chest without contrast. TECHNIQUE: Multiple contiguous axial images were obtained through the chest without the use of intravenous contrast. INDICATION: Pulmonary nodule. Compared November 29, 2016. FINDINGS: The left basilar nodule in the far inferior aspect of the lingula anterior to the major fissure had previously measured 8 mm and is no longer clearly apparent. There is some linear scarring or subsegmental atelectasis in this region but no mass. Some trace atelectasis in the right middle lobe and posterior sulcal left lower lobe noted as well. No findings suggestive of pneumonia, however. There is no evidence for thoracic adenopathy and no effusion or pneumothorax. No acute chest wall pathology. IMPRESSION: Resolution of left basilar nodule. No suspicious mass on followup. Trace zones of atelectasis, otherwise negative. No acute or suspicious abnormality. Dictated by: Dictated on workstation # [id number]
== END ==
LOC: RAD 13:40
PROVIDERS: ATTEND Nurse Practitioner Family
DX: R91.1 Solitary pulmonary nodule (principal)
CPT/HCPCS: 71250

== ENCOUNTER 2018-01-02 23:56 | Emergency (ER) | payer MEDICARE, OTHER ==
[~2018-01-02] VITALS: Ht 162.6 cm; Wt 90.7 kg
--- OUTSIDE RECORDS SUMMARY | 2018-01-03 00:06 | XMS REPORT | CCD ---
Author Author [facility] Organization [facility] Address [address] [place] [address] Phone Care Team Providers Care Energy Attorney Name Role Phone PP Unavailable CCM Unavailable Summary Purpose Interface Exchange Insurance Providers Payer name Policy type / Coverage type Covered libertarian ID Effective Begin Date Effective End Date WPS Medicare Part B Medicare Part B [id number] 2013 Unknown [employer] Medicare Part B [id number] Unknown Family history Mother Diagnosis Age At Onset Diabetes Unknown Brother Diagnosis Age At Onset Diabetes Unknown Heart disease Unknown Son Diagnosis Age At Onset No Family Disease Entered N/A Father Diagnosis Age At Onset Prostatic cancer Unknown Heart disease Unknown Leukemia Unknown Sister Diagnosis Age At Onset Diabetes Unknown Social History Social History Element Codes Description Effective Dates Employment Unknown 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 09/08/2015 Marital status Unknown 07/13/[address]: 005956205 Nonsmoker 07/13/[address]: 979331901 Never drinks alcohol 07/13/2011 Allergies, Adverse Reactions, Alerts Substance Reaction Codes Entered Date Inactivated Date Status Metoprolol Succinate anaphylaxis, rash RxNorm: 6918 02/13/2016 No Inactive Date Active Past Medical History Illness Codes Condition Status Onset Date Resolved Date Other specified intestinal infections ICD-9: 009.0 ICD-10: A08.8 Active 08/03/2017 Unknown Encounter for immunization ICD-9: V04.81 ICD-10: Z23 Active 07/05/2017 Unknown Essential (primary) hypertension ICD-9: 401.1 ICD-10: I10 Active 07/21/2016 Unknown Myalgia ICD-9: 729.1 ICD-10: M79.1 Active 07/05/2017 Unknown Personal history of poliomyelitis ICD-9: V12.02 ICD-10: Z86.12 Active 07/05/2017 Unknown 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 Active 07/05/2017 Unknown Vitamin D deficiency, unspecified ICD-9: 268.9 ICD-10: E55.9 Active 07/05/2017 Unknown Allergic rhinitis due to pollen ICD-9: 477.9 ICD-10: J30.1 Active 11/22/2016 Unknown Acute laryngopharyngitis ICD-9: 465.0 ICD-10: J06.0 Active 11/05/2016 Unknown Influenza due to unidentified influenza virus with other respiratory manifestations ICD-9: 487.1 ICD-10: J11.1 Active 11/05/2016 Unknown Gastro-esophageal reflux disease without esophagitis ICD-9: 530.81 ICD-10: K21.9 Active 07/21/2016 Unknown Abdominal distension (gaseous) ICD-9: 787.3 ICD-10: R14.0 Active 05/19/2016 Unknown Essential (primary) hypertension ICD-9: 401.9 ICD-10: I10 Active 02/12/2016 Unknown Body mass index (BMI) 36.0-36.9, adult ICD-9: V85.36 ICD-10: Z68.36 Active 01/01/2016 Unknown Benign paroxysmal vertigo, bilateral ICD-9: 386.11 ICD-10: H81.13 Active 04/10/2012 Unknown Radiculopathy, cervical region ICD-9: 723.1 ICD-10: M54.12 Active 03/16/2012 Unknown Myositis, unspecified ICD-9: 729.1 ICD-10: M60.9 Active 03/20/2014 Unknown Other specified nonscarring hair loss ICD-9: 704.09 ICD-10: L65.8 Active 07/08/2015 Unknown Psoriasis, unspecified ICD-9: 696.1 ICD-10: L40.9 Active 07/08/2015 Unknown PALPITATIONS ICD-9: 785.1 Active 01/03/2015 Unknown Shoulder pain ICD-9: 719.41 Active 01/03/2015 Unknown Sacroiliitis ICD-9: 720.2 Active 09/16/2014 Unknown Arrhythmia ICD-9: 427.9 Active 08/15/2014 Unknown Nausea ICD-9: 787.02 Active 08/15/2014 Unknown Allergic reaction ICD- 9: 995.3 Active 06/12/2014 Unknown Back pain ICD-9: 724.5 Active 06/12/2014 Unknown ESSENTIAL HYPERTENSION ICD-9: 401.9 Active 06/12/2014 Unknown MYALGIA AND MYOSITIS ICD-9: 729.1 Active 03/20/2014 Unknown Thoracic back pain ICD -9: 724.1 Active 03/20/2014 Unknown Bleeding from the nose ICD-9: 784.7 Active 09/20/2012 Unknown Hair loss ICD-9: 704.00 Active 09/20/2012 Unknown Vitamin d deficiency ICD-9: 268.9 Active 09/20/2012 Unknown BPPV (benign paroxysmal positional vertigo) ICD-9: 386.11 Active 04/10/2012 Unknown Diverticulitis ICD-9: 562.11 Active 04/10/2012 Unknown Neck pain ICD-9: 723.1 Active 03/16/2012 Unknown Constipation - functional ICD-9: 564.09 Active 02/03/2012 Unknown HYPERLIPIDEMIA ICD-9: 272.4 Active 11/04/2011 Unknown VITAMIN DEFICIENCY ICD -9: 269.2 Active 11/04/2011 Unknown Diphtheria Unknown Active 07/13/2011 Unknown Disability Unknown Active 07/13/2011 Unknown Fibromyalgia Unknown Active 07/13/2011 Unknown Hyperlipidemia Unknown Active 07/13/2011 Unknown Hypertension Unknown Active 07/13/2011 Unknown Polio Unknown Active 07/13/2011 Unknown Post polio syndrome Unknown Active 07/13/2011 Unknown Psoriasis Unknown Active 07/13/2011 Unknown Rabies Unknown Active 07/13/2011 Unknown Scoliosis Unknown Active 07/13/2011 Unknown Vestibular response Unknown Active 07/13/2011 Unknown Vitamin D Deficiency Unknown Active 07/13/2011 Unknown Abdominal pain ICD-9: 789.00 Active 07/13/2011 Unknown 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 Active 07/13/2011 Unknown OBESITY ICD-9: 278.00 Active 07/13/2011 Unknown Postprandial bloating ICD-9: 787.3 Active 07/13/2011 Unknown Seasonal allergies ICD -9: 477.9 Active 07/13/2011 Unknown VAC STREP PNEUMONIAE-FLU ICD-9: V06.6 Active 07/13/2011 Unknown Problems Condition Codes Effective Dates Condition Status Other specified intestinal infections ICD-9: 009.0 ICD-10: A08.8 08/03/2017 Active Encounter for immunization ICD-9: V04.81 ICD-10: Z23 07/05/2017 Active Essential (primary) hypertension ICD-9: 401.1 ICD-10: I10 07/21/2016 Active Myalgia ICD-9: 729.1 ICD-10: M79.1 07/05/2017 Active Personal history of poliomyelitis ICD-9: V12.02 ICD-10: Z86.12 07/05/2017 Active 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 07/05/2017 Active Vitamin D deficiency, unspecified ICD-9: 268.9 ICD-10: E55.9 07/05/2017 Active Allergic rhinitis due to pollen ICD-9: 477.9 ICD-10: J30.1 11/22/2016 Active Acute laryngopharyngitis ICD-9: 465.0 ICD-10: J06.0 11/05/2016 Active Influenza due to unidentified influenza virus with other respiratory manifestations ICD-9: 487.1 ICD-10: J11.1 11/05/2016 Active Gastro-esophageal reflux disease without esophagitis ICD-9: 530.81 ICD-10: K21.9 07/21/2016 Active Abdominal distension (gaseous) ICD-9: 787.3 ICD-10: R14.0 05/19/2016 Active Essential (primary) hypertension ICD-9: 401.9 ICD-10: I10 02/12/2016 Active Body mass index (BMI) 36.0-36.9, adult ICD-9: V85.36 ICD-10: Z68.36 01/01/2016 Active Benign paroxysmal vertigo, bilateral ICD-9: 386.11 ICD-10: H81.13 04/10/2012 Active Radiculopathy, cervical region ICD-9: 723.1 ICD-10: M54.12 03/16/2012 Active Myositis, unspecified ICD-9: 729.1 ICD-10: M60.9 03/20/2014 Active Other specified nonscarring hair loss ICD-9: 704.09 ICD-10: L65.8 07/08/2015 Active Psoriasis, unspecified ICD-9: 696.1 ICD-10: L40.9 07/08/2015 Active PALPITATIONS ICD-9: 785.1 01/03/2015 Active Shoulder pain ICD-9: 719.41 01/03/2015 Active Sacroiliitis ICD-9: 720.2 09/16/2014 Active Arrhythmia ICD-9: 427.9 08/15/2014 Active Nausea ICD-9: 787.02 08/15/2014 Active Allergic reaction ICD- 9: 995.3 06/12/2014 Active Back pain ICD-9: 724.5 06/12/2014 Active ESSENTIAL HYPERTENSION ICD-9: 401.9 06/12/2014 Active MYALGIA AND MYOSITIS ICD-9: 729.1 03/20/2014 Active Thoracic back pain ICD -9: 724.1 03/20/2014 Active Bleeding from the nose ICD-9: 784.7 09/20/2012 Active Hair loss ICD-9: 704.00 09/20/2012 Active Vitamin d deficiency ICD-9: 268.9 09/20/2012 Active BPPV (benign paroxysmal positional vertigo) ICD-9: 386.11 04/10/2012 Active Diverticulitis ICD-9: 562.11 04/10/2012 Active Neck pain ICD-9: 723.1 03/16/2012 Active Constipation - functional ICD-9: 564.09 02/03/2012 Active HYPERLIPIDEMIA ICD-9: 272.4 11/04/2011 Active VITAMIN DEFICIENCY ICD -9: 269.2 11/04/2011 Active Diphtheria Unknown 07/13/2011 Active Disability Unknown 07/13/2011 Active Fibromyalgia Unknown 07/13/2011 Active Hyperlipidemia Unknown 07/13/2011 Active Hypertension Unknown 07/13/2011 Active Polio Unknown 07/13/2011 Active Post polio syndrome Unknown 07/13/2011 Active Psoriasis Unknown 07/13/2011 Active Rabies Unknown 07/13/2011 Active Scoliosis Unknown 07/13/2011 Active Vestibular response Unknown 07/13/2011 Active Vitamin D Deficiency Unknown 07/13/2011 Active Abdominal pain ICD-9: 789.00 07/13/2011 Active 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 07/13/2011 Active OBESITY ICD-9: 278.00 07/13/2011 Active Postprandial bloating ICD-9: 787.3 07/13/2011 Active Seasonal allergies ICD -9: 477.9 07/13/2011 Active VAC STREP PNEUMONIAE-FLU ICD-9: V06.6 07/13/2011 Active Medications Medication Codes Instructions Start Date Stop Date Status Fill Instructions hydrochlorothiazide 12.5 mg tablet RxNorm: 864899 1 Tablet(s) PO daily 10/28/2017 10/22/2018 Active famotidine 40 mg tablet RxNorm: 204644 TAKE 1 TABLET BY MOUTH EVERY MORNING 10/04/2017 09/28/2018 Active - Ref: 795308521 clonidine HCl 0.1 mg tablet RxNorm: 030192 1/2 Tablet(s) PO BID 07/05/2017 No Stop Date Active doxazosin 1 mg tablet RxNorm: 206159 1 Tablet(s) PO daily at midnight 07/05/2017 No Stop Date Active midnight doxazosin 1 mg tablet RxNorm: 128359 1 Tablet(s) PO BID 201607/04/2017 Inactive midnight prednisone 20 mg tablet RxNorm: 642398 3 Tablet(s) PO daily 11/26/2016 Inactive Tessalon Perles 100 mg capsule RxNorm: 983981 1 -2 Capsule(s) PO TID as needed cough 11/19/2016 No Stop Date Active Zithromax Z-Jeff 250 mg tablet RxNorm: 718605 1 Tablet(s) PO UD 11/19/2016 12/01/2016 Inactive z pack as directed Tamiflu 75 mg capsule RxNorm: 702507 1 Capsule(s) PO BID 201611/09/2016 Inactive Kenalog 40 mg/mL suspension for injection RxNorm: 9989804 Milliliter(s) Inj 11/05/2016 11/05/2016 Inactive Tessalon Perles 100 mg capsule RxNorm: 164179 1 -2 Capsule(s) PO TID as needed cough 11/04/2016 11/18/2016 Inactive famotidine 40 mg tablet RxNorm: 079592 1 Tablet(s) PO QAM 10/2510/03/2017 Inactive famotidine 40 mg tablet RxNorm: 048413 1 Tablet(s) PO QAM 08/0210/24/2016 Inactive Carafate 1 gram tablet RxNorm: 256615 1 Tablet(s) PO TID DISSOLVE THE PILL IN 10ML OF WATER 07/22/2016 10/19/2016 Inactive clonidine HCl 0.1 mg tablet RxNorm: 510595 1 Tablet(s) PO BID and 1 tablet as needed 07/22/2016 12/01/2016 Inactive aspirin 81 mg tablet,delayed release RxNorm: 115627 1 Tablet(s) PO QHS 05/19/2016 No Stop Date Active Cinnamon 1000 mg RxNorm: 1 PO daily 05/19/2016 No Stop Date Active losartan 25 mg tablet RxNorm: 796574 1 Tablet(s) PO BID 2015 No Stop Date Active atenolol 25 mg tablet RxNorm: 766612 1.5 Tablet(s) PO BID 201507/21/2016 Inactive losartan 25 mg tablet RxNorm: 578141 2 Tablet(s) PO BID 201505/11/2016 Inactive Cardizem CD 240 mg capsule,extended release RxNorm: 245344 1 Capsule(s) PO daily 01/13/2016 02/12/2016 Inactive losartan 100 mg tablet RxNorm: 817442 1/2 Tablet(s) PO BID 04/201601/12/2016 Inactive losartan 25 mg tablet RxNorm: 457344 2 Tablet(s) PO QPM 1 Tablet(s) PO QPM 12/18/2015 01/07/2016 Inactive atenolol 25 mg tablet RxNorm: 586082 1.5 Tablet(s) PO BID TAKE ONE TABLET BY MOUTH TWICE A DAY 12/18/2015 01/12/2016 Inactive atenolol 25 mg tablet RxNorm: 755245 Tablet(s) TAKE ONE TABLET BY MOUTH TWICE A DAY 11/14/2015 12/17/2015 Inactive losartan 25 mg tablet RxNorm: 562533 Tablet(s) 1 Tablet(s) PO QPM 11/14/2015 12/17/2015 Inactive spironolactone 25 mg tablet RxNorm: 455743 1 Tablet(s) PO daily 11/14/2015 12/14/2015 Inactive atenolol 25 mg tablet RxNorm: 341835 TAKE ONE TABLET BY MOUTH TWICE A DAY 08/07/2015 11/13/2015 Inactive atenolol 25 mg tablet RxNorm: 071508 1 Tablet(s) PO daily TAKE ONE TABLET BY MOUTH TWICE DAILY 08/06/2015 08/06/2015 Inactive Generic For:TENORMIN 25 MG TABLET 05/05 10:00:22 AM atenolol 25 mg tablet RxNorm: 244106 1 Tablet(s) PO daily TAKE ONE TABLET BY MOUTH TWICE DAILY 08/06/2015 08/05/2015 Inactive Generic For:TENORMIN 25 MG TABLET 05/05 10:00:22 AM betamethasone dipropionate 0.05 % topical ointment RxNorm: 358747 1 TOP TID as needed rash 07/09/2015 05/18/2016 Inactive betamethasone dipropionate 0.05 % topical ointment RxNorm: 782073 1 TOP TID as needed rash 07/09/2015 07/08/2015 Inactive spironolactone 25 mg tablet RxNorm: 175456 1 Tablet(s) PO daily 07/09/2015 07/08/2015 Inactive spironolactone 25 mg tablet RxNorm: 362007 1 Tablet(s) PO daily 07/09/2015 11/13/2015 Inactive losartan 25 mg tablet RxNorm: 180489 Tablet(s) 1 Tablet(s) PO QPM 05/27/2015 11/13/2015 Inactive atenolol 25 mg tablet RxNorm: 257815 TAKE ONE TABLET BY MOUTH TWICE DAILY 05/05/2015 08/05/2015 Inactive Generic For:TENORMIN 25 MG TABLET 05/05/2015 10:00:22 AM hydrochlorothiazide 25 mg tablet RxNorm: 963331 1/2 Tablet(s) PO BID 02/17/2015 07/08/2015 Inactive Generic For:HYDRODIURIL 25 MG TABLET sulfamethoxazole 800 mg-trimethoprim 160 mg tablet RxNorm: 659207 1 Tablet(s) PO BID 01/16/2015 01/25/2015 Inactive losartan 25 mg tablet RxNorm: 730303 1 Tablet(s) PO QPM 201405/26/2015 Inactive Kenalog 40 mg/mL suspension for injection RxNorm: 6084135 1 Milliliter(s) Inj 09/16/2014 09/16/2014 Inactive prednisone 20 mg tablet RxNorm: 487108 3 Tablet(s) PO daily 09/18/2014 Inactive losartan 25 mg tablet RxNorm: 032995 1 Tablet(s) PO QPM 201312/08/2014 Inactive hydrochlorothiazide 25 mg tablet RxNorm: 913440 TAKE 1/2 TABLET BY MOUTH TWICE DAILY 08/13/2014 02/08/2015 Inactive Generic For:HYDRODIURIL 25 MG TABLET atenolol 25 mg tablet RxNorm: 545585 TAKE ONE TABLET BY MOUTH TWICE DAILY 05/07/2014 05/01/2015 Inactive Generic For:TENORMIN 25 MG TABLET ketorolac 60 mg/2 mL intramuscular solution RxNorm: 822328 2 Milliliter(s) IM 03/20/2014 03/20/2014 Inactive hydrochlorothiazide 25 mg tablet RxNorm: 692635 Tablet(s) PO TAKE 1/2 TABLET BY MOUTH TWICE DAILY 02/14/2014 08/12/2014 Inactive Generic For:HYDRODIURIL 25 MG TABLET Generic For:HYDRODIURIL 25 MG TABLET 02/14/2014 3:45:03 PM atorvastatin 10 mg tablet RxNorm: 016600 1 Tablet(s) PO TIW 03/19/2014 Inactive atorvastatin 10 mg tablet RxNorm: 165089 tablet oral 201206/04/2015 Inactive hydrochlorothiazide 25 mg tablet RxNorm: 262703 Tablet(s) PO TAKE 1/2 TABLET BY MOUTH TWICE DAILY 08/06/2013 02/13/2014 Inactive Generic For:HYDRODIURIL 25 MG TABLET Generic For:HYDRODIURIL 25 MG TABLET 08/06/2013 1:52:35 PM amoxicillin 500 mg tablet RxNorm: 296245 2 Tablet(s) PO 2 tablets PO 1 hour before dental procedure. 07/26/20132012 Inactive amoxicillin 500 mg tablet RxNorm: 923708 2 Tablet(s) PO 2 tablets PO 1 hour before dental procedure. 07/26/20132012 Inactive methotrexate sodium 2.5 mg tablet RxNorm: 120096 tablet oral 01/15/2015 Inactive atenolol 25 mg tablet RxNorm: 452926 Tablet(s) PO TAKE ONE TABLET BY MOUTH TWICE DAILY 05/01/2013 05/06/2014 Inactive Generic For:TENORMIN 25 MG TABLET hydrochlorothiazide 25 mg tablet RxNorm: 626343 Tablet(s) PO TAKE 1/2 TABLET BY MOUTH TWICE DAILY 11/21/2012 08/05/2013 Inactive Generic For:HYDRODIURIL 25 MG TABLET atenolol 25 mg tablet RxNorm: 617966 Tablet(s) PO TAKE ONE TABLET BY MOUTH TWICE DAILY 10/02/2012 04/30/2013 Inactive Generic For:TENORMIN 25 MG TABLET gemfibrozil 600 mg tablet RxNorm: 689914 1 Tablet(s) PO BID 03/201210/08/2012 Inactive meclizine 25 mg tablet RxNorm: 223819 1 Tablet(s) PO Q4 PRN 03/201209/05/2012 Inactive prednisone 10 mg Tab RxNorm: 323453 2 Tablet(s) PO daily 201103/20/2012 Inactive atorvastatin 10 mg Tab RxNorm: 182759 1 Tablet(s) PO daily 12/20/2011 Inactive atorvastatin 10 mg Tab RxNorm: 658424 1 Tablet(s) PO daily 06/08/2012 Inactive methotrexate sodium 2.5 mg Tab RxNorm: 484083 Tablet(s) PO 06/12/2012 Inactive 3 on tuesday3 on hydrochlorothiazide 25 mg Tab RxNorm: 425703 1/2 Tablet(s) PO BID 11/01/2011 11/24/2012 Inactive hydrochlorothiazide 12.5 mg Cap RxNorm: 561392 Capsule(s) PO 06/08/2012 Inactive TAKE ONE TABLET BY MOUTH TWICE DAILY;Generic For:MICROZIDE 12.5 MG CAPSULE hydrochlorothiazide 25 mg Tab RxNorm: 041848 1/2 Tablet(s) PO BID 11/01/2011 11/24/2012 Inactive hydrochlorothiazide 25 mg tablet RxNorm: 343973 1/2 Tablet(s) PO BID 11/01/2011 10/31/2011 Inactive hydrochlorothiazide 25 mg Tab RxNorm: 317195 1/2 Tablet(s) PO BID 11/01/2011 10/31/2011 Inactive atenolol 25 mg tablet RxNorm: 861605 Tablet(s) PO 10/04/2011 10/01/2012 Inactive TAKE ONE TABLET BY MOUTH TWICE DAILY;Generic For:TENORMIN 25 MG TABLET hydrochlorothiazide 12.5 mg Cap RxNorm: 189234 1 Capsule(s) PO BID 09/13/2011 10/31/2011 Inactive Influenza Virus Vaccine 0.5 mL RxNorm: IM 07/13/2011 07/13/2011 Inactive Pneumovax 23 25 mcg/0.5 mL Injection RxNorm: 821961 Milliliter(s) Inj 07/13/2011 07/13/2011 Inactive Phenergan VC-Codeine 6.25 mg-5 mg-10 mg/5 mL syrup RxNorm: 408680 5 Milliliter(s) PO Q6 as needed No Start Date Active Cardale 3 Cap RxNorm: 1 Capsule(s) PO BID No Start Date Active Cinnamon 1000 mg RxNorm: 2 PO daily No Start Date Active atenolol 25 mg Tab RxNorm: 443357 1 Tablet(s) PO BID No Start Date 10/03/2011 Inactive niacin ER 500 mg Cap RxNorm: 922145 1 Capsule(s) PO daily No Start Date 06/08/2012 Inactive gemfibrozil 600 mg tablet RxNorm: 845178 1 Tablet(s) PO BID No Start Date 06/07/2012 Inactive Vitamin C 500 mg Tab RxNorm: 827620 1 Tablet(s) PO daily No Start Date 07/21/2016 Inactive Zithromax Z-Jeff 250 mg tablet RxNorm: 301214 1 Tablet(s) PO UD No Start Date 11/18/2016 Inactive z pack as directed doxazosin 1 mg tablet RxNorm: 035911 1 Tablet(s) PO BID No Start Date 12/01/2016 Inactive vitamin E (dl, acetate) 400 unit Cap RxNorm: 834712 1 Capsule(s) PO daily No Start Date 07/21/2016 Inactive famotidine 40 mg tablet RxNorm: 230939 1 Tablet(s) PO QAM No Start Date 08/01/2016 Inactive hydrochlorothiazide 25 mg Tab RxNorm: 772364 1/2 Tablet(s) PO BID No Start Date 09/12/2011 Inactive Tessalon Perles 100 mg capsule RxNorm: 159864 1 -2 Capsule(s) PO TID as needed cough No Start Date 11/03/2016 Inactive aspirin 81 mg Tab, Delayed Release RxNorm: 617173 1 Tablet(s) PO every other day No Start Date 05/18/2016 Inactive Cinnamon 1000 mg RxNorm: 2 PO daily No Start Date 05/18/2016 Inactive clonidine HCl 0.1 mg tablet RxNorm: 437626 1 Tablet(s) PO QHS and 1 Tablet as needed No Start Date 07/21/2016 Inactive niacin 500 mg tablet RxNorm: 396251 1 Tablet(s) PO QHS No Start Date 01/01/2015 Inactive multivitamin Tab RxNorm: 1 Tablet(s) PO daily No Start Date 07/21/2016 Inactive methotrexate sodium 2.5 mg Tab RxNorm: 768331 Tablet(s) PO No Start Date 11/15/2011 Inactive 3 on tuesday3 on T-Bio RxNorm: 1 PO daily No Start Date Inactive Vitamin D 2,000 unit Cap RxNorm: 1 Capsule(s) PO daily No Start Date 07/21/2016 Inactive hydrochlorothiazide 12.5 mg tablet RxNorm: 005668 1 Tablet(s) PO daily No Start Date 10/27/2017 Inactive Medication Administered Medication Codes Instructions Start Date Status Kenalog 40 mg/mL suspension for injection RxNorm: 5779715 Milliliter 11/05/2016 No longer Active Kenalog 40 mg/mL suspension for injection RxNorm: 5651765 1Milliliter 09/16/2014 No longer Active ketorolac 60 mg/2 mL intramuscular solution RxNorm: 295293 2Milliliter 03/20/2014 No longer Active Influenza Virus Vaccine 0.5 mL RxNorm: 07/13/2011 No longer Active Pneumovax 23 25 mcg/0.5 mL Injection RxNorm: 469594 Milliliter 07/13/2011 No longer Active Immunizations Vaccine Codes Date Status Influenza CVX: 141 07/05/2017 completed Influenza CVX: 141 07/22/2016 completed Influenza CVX: 141 09/17/2013 completed Influenza CVX: 141 10/13/2012 completed Influenza CVX: 141 07/13/2011 completed Pneumococcal (Adult) CVX: 33 07/13/2011 completed Assessments Condition Codes Effective Dates Other specified intestinal infections ICD-10: A08.8 ICD-9: 009.0 08/03/2017 Vitamin D deficiency, unspecified ICD-10: E55.9 ICD-9: 268.9 07/05/2017 Encounter for immunization ICD-10: Z23 ICD-9: V04.81 07/05/2017 Essential (primary) hypertension ICD-10: I10 ICD-9: 401.1 07/05/2017 Personal history of poliomyelitis ICD-10: Z86.12 ICD-9: V12.02 07/05/2017 Myalgia ICD-10: M79.1 ICD-9: 729.1 07/05/2017 Postpolio syndrome ICD-10: G14 ICD-9: 138 07/05/2017 Allergic rhinitis due to pollen ICD-10: J30.1 ICD-9: 477.9 11/22/2016 Influenza due to unidentified influenza virus with other respiratory manifestations ICD-10: J11.1 ICD-9: 487.1 11/05/2016 Acute laryngopharyngitis ICD-10: J06.0 ICD-9: 465.0 11/05/2016 Gastro-esophageal reflux disease without esophagitis ICD-10 : K21.9 ICD-9: 530.81 07/22/2016 Abdominal distension (gaseous) ICD-10: R14.0 ICD-9: 787.3 05/19/2016 Essential (primary) hypertension ICD-10: I10 ICD-9: 401.9 02/13/2016 Body mass index (BMI) 36.0-36.9, adult ICD-10: Z68.36 ICD-9: V85.36 01/02/2016 Benign paroxysmal vertigo, bilateral ICD-10: H81.13 ICD-9: 386.11 09/08/2015 Radiculopathy, cervical region ICD-10: M54.12 ICD-9: 723.1 09/08/2015 Other specified nonscarring hair loss ICD-10: L65.8 ICD-9: 704.09 07/09/2015 Psoriasis, unspecified ICD-10: L40.9 ICD-9: 696.1 07/09/2015 Myositis, unspecified ICD-10: M60.9 ICD-9: 729.1 07/09/2015 ESSENTIAL HYPERTENSION ICD-9: 401.9 01/16 PALPITATIONS ICD-9: 785.1 01/03/2015 Shoulder pain ICD-9: 719.41 01/03/2015 Sacroiliitis ICD-9: 720.2 09/16/2014 Back pain ICD-9: 724.5 09/16/2014 Nausea ICD-9: 787.02 08/15/2014 Arrhythmia ICD-9: 427.9 08/15/2014 Allergic reaction ICD-9: 995.3 2013 MYALGIA AND MYOSITIS ICD-9: 729.1 2013 Thoracic back pain ICD-9: 724.1 2013 HYPERLIPIDEMIA ICD-9: 272.4 12/10/2013 ABDOM PAIN NOS SITE ICD-9: 789.00 2013 OBESITY ICD-9: 278.00 05/21/2013 BENIGN PAROXYSMAL VERTIGO ICD-9: 386.11 01/17/2013 Vitamin d deficiency ICD-9: 268.9 2011 Bleeding from the nose ICD-9: 784.7 09/20 Hair loss ICD-9: 704.00 09/20/2012 Diverticulitis ICD-9: 562.11 04/10/2012 Neck pain ICD-9: 723.1 03/16/2012 Constipation - functional ICD-9: 564.09 02/03/2012 VITAMIN DEFICIENCY ICD-9: 269.2 2011 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 08/2011 Postprandial bloating ICD-9: 787.3 2010 Seasonal allergies ICD-9: 477.9 2010 VAC STREP PNEUMONIAE-FLU ICD-9: V06.6 08/2011 Reason For Visit Reason For Visit Effective Dates Notes diarrhea 08/03/2017 hypertension 07/05/2017 hypertension 12/02/2016 hypertension 11/22/2016 sinus congestion 11/05/2016 hypertension 07/22/2016 hypertension 05/19/2016 blood pressure followup 02/13/2016 blood pressure followup 01/13/2016 hypertension 01/02/2016 hypertension 12/18/2015 vertigo 09/08/2015 palpitations 07/09/2015 palpitations 01/16/2015 Left palpitations 01/03/2015 Left back pain 09/16/2014 right lower back/ hip pain starting last week nausea 08/15/2014 rash 06/12/2014 back pain 03/20/2014 abdominal pain 12/10/2013 hypertension 09/17/2013 back pain 05/21/2013 hypertension 01/17/2013 pain 09/20/2012 hyperlipidemia 06/08/2012 vertigo 04/10/2012 shoulder pain 03/16/2012 hypertension 02/03/2012 hyperlipidemia 11/04/2011 abdominal pain 07/13/2011 Results Observation Observation Code Item Item Code Result Date Potassium Ord64 K 3.8 mEq/L 12/06/2016 Comp Metabolic Qkw718 NA 134 mEq/L 12/03/2016 Comp Metabolic Cte002 K Specimen 3+ Hemolyzed mEq/L 2016 Comp Metabolic Xuo496 CL 106 mEq/L 12/03/2016 Comp Metabolic Uyf987 CO2 20.0 mEq/L 12/03/2016 Comp Metabolic Tbz667 ANION GAP 16 12/03/2016 Comp Metabolic Dot761 GLUCOSE 93 mg/dL 12/03/2016 Comp Metabolic Rar341 Creat 0.8 mg/dL 12/03/2016 Comp Metabolic Gil232 eGFR 73 ml/min/1.73m2 12/03/2016 Comp Metabolic Vqm468 BUN 14 mg/dL 12/03/2016 Comp Metabolic Fvl655 B/C Ratio 17.1 Ratio 12/03/2016 Comp Metabolic Bcz359 CALCIUM 9.3 mg/dL 12/03/2016 Comp Metabolic Owy650 ALK PHOS 63 U/L 12/03/2016 Comp Metabolic Yms305 AST(SGOT) 69 U/L 12/03/2016 Comp Metabolic Jrb511 ALT(SGPT) 33 U/L 12/03/2016 Comp Metabolic Jqx371 BILI T 1.0 mg/dL 12/03/2016 Comp Metabolic Mhg219 ALBUMIN 4.3 g/dL 12/03/2016 Comp Metabolic Gzy817 TPRO 6.7 g/dL 12/03/2016 Comp Metabolic Hub152 GLOB 2.4 g/dL 12/03/2016 Comp Metabolic Zks590 A/G Ratio 1.7 Ratio 12/03/2016 Comp Metabolic Cqh245 Osmo 268 mOsmo 12/03/2016 Comp Metabolic Bnj120 NA 138 mEq/L 12/18/2015 Comp Metabolic Rfl094 K 4.1 mEq/L 12/18/2015 Comp Metabolic Nfq871 CL 104 mEq/L 12/18/2015 Comp Metabolic Hly720 CO2 22.0 mEq/L 12/18/2015 Comp Metabolic Sba844 ANION GAP 16 12/18/2015 Comp Metabolic Phm635 GLUCOSE 89 mg/dL 12/18/2015 Comp Metabolic Rbg166 Creat 0.6 mg/dL 12/18/2015 Comp Metabolic Oxl744 eGFR 99 ml/min/1.73m2 12/18/2015 Comp Metabolic Xmu842 BUN 15 mg/dL 12/18/2015 Comp Metabolic Qdp084 B/C Ratio 23.8 Ratio 12/18/2015 Comp Metabolic Miw770 CALCIUM 10.4 mg/dL 12/18/2015 Comp Metabolic Kzd836 ALK PHOS 77 U/L 12/18/2015 Comp Metabolic Phd539 AST(SGOT) 19 U/L 12/18/2015 Comp Metabolic Gus504 ALT(SGPT) 17 U/L 12/18/2015 Comp Metabolic Bjd324 BILI T 0.8 mg/dL 12/18/2015 Comp Metabolic Oof668 ALBUMIN 4.3 g/dL 12/18/2015 Comp Metabolic Mzo725 TPRO 6.7 g/dL 12/18/2015 Comp Metabolic Xll677 GLOB 2.4 g/dL 12/18/2015 Comp Metabolic Iil726 A/G Ratio 1.7 Ratio 12/18/2015 Comp Metabolic Dcc544 Osmo 276 mOsmo 12/18/2015 Cbc With Differential Ord2 WBC 8.41 K/ul 12/18/2015 Cbc With Differential Ord2 RBC 5.18 M/ul 12/18/2015 Cbc With Differential Ord2 HGB 15.3 g/dl 12/18/2015 Cbc With Differential Ord2 Neut% 58.3 % 12/18/2015 Cbc With Differential Ord2 HCT 46.3 % 12/18/2015 Cbc With Differential Ord2 Lymph% 30.6 % 12/18/2015 Cbc With Differential Ord2 MCV 89.4 fl 12/18/2015 Cbc With Differential Ord2 MCH 29.5 pg 12/18/2015 Cbc With Differential Ord2 [place]% 9.4 % 12/18/2015 Cbc With Differential Ord2 Eos% 1.2 % 12/18/2015 Cbc With Differential Ord2 MCHC 33.0 pg 12/18/2015 Cbc With Differential Ord2 PLT 306 K/ul 12/18/2015 Cbc With Differential Ord2 Baso% 0.5 % 12/18/2015 Cbc With Differential Ord2 RDW 14.9 % 12/18/2015 Cbc With Differential Ord2 Neut ABS# 4.91 K/ul 12/18/2015 Cbc With Differential Ord2 Lymph ABS# 2.57 K/ul 12/18/2015 Cbc With Differential Ord2 [place] ABS# 0.8 K/ul 12/18/2015 Cbc With Differential Ord2 Eos ABS# 0.1 K/ul 12/18/2015 Cbc With Differential Ord2 Baso ABS# 0.0 K/ul 12/18/2015 Cbc With Differential Ord2 New Analyzer Notice Please note new ref ranges starting 10-15-2015 due to implemntation of new five part differential hematolgy analyzer. 12/18/2015 Total T3 Ord42 TT3 1.0 ng/ml 07/10/2015 Tsh Ord6 hTSH II 1.18 uIU/mL 07/09/2015 Free T3 Yyc173 Free T3 2.92 pg/ml 07/09/2015 Free T4 Ugt583 FREE T4 0.90 ng/dL 07/09/2015 URINALYSIS NONAUTO W/O SCOPE 37078 Specific [place] 1.005 DateTime(Free Text in Aprima) URINALYSIS NONAUTO W/O SCOPE 73054 PH 6 DateTime(Free Text in Aprima) URINALYSIS NONAUTO W/O SCOPE 36253 GLUCOSE neg DateTime( Free Text in Aprima) URINALYSIS NONAUTO W/O SCOPE 59923 Protein neg DateTime( Free Text in Aprima) URINALYSIS NONAUTO W/O SCOPE 98347 Blood neg DateTime(Free Text in Aprima) URINALYSIS NONAUTO W/O SCOPE 62181 Bilirubin neg DateTime(Free Text in Aprima) URINALYSIS NONAUTO W/O SCOPE 94584 Ketones neg DateTime( Free Text in Aprima) URINALYSIS NONAUTO W/O SCOPE 42489 Urobilinogen neg DateTime(Free Text in Aprima) URINALYSIS NONAUTO W/O SCOPE 17945 Nitrite neg DateTime( Free Text in Aprima) URINALYSIS NONAUTO W/O SCOPE 25471 Leukocytes neg DateTime(Free Text in Apr) Review of Systems System Result Effective Dates Constitutional recent illness 08/03/2017 Constitutional No chills 08/03/2017 Constitutional No diaphoresis 08/03/2017 Constitutional No fever 08/03/2017 Eyes No eye erythema 08/03/2017 Ears/Nose/Throat/Neck No nasal discharge 08/03/2017 Ears/Nose/Throat/Neck No nasal allergies 08/03/2017 Cardiovascular No chest pain/pressure 10/2016 Cardiovascular No dyspnea 08/03/2017 Respiratory No cough 08/03/2017 Respiratory No chest congestion 2016 Gastrointestinal No abdominal pain 2016 Gastrointestinal No constipation 2016 Gastrointestinal diarrhea 08/03/2017 Gastrointestinal No vomiting 08/03/2017 Gastrointestinal No nausea 08/03/2017 Gastrointestinal No melena 08/03/2017 Gastrointestinal No hematochezia 2016 Gastrointestinal No gastroesophageal reflux 08/03/2017 Musculoskeletal No joint complaint 2016 Dermatologic No rash 08/03/2017 Neurologic No alteration of consciousness 08/03/2017 Neurologic No mental status change 2016 Constitutional No recent illness 2016 Constitutional No anorexia 07/05/2017 Constitutional No night sweats 2016 Constitutional No chills 07/05/2017 Constitutional No diaphoresis 07/05/2017 Constitutional fatigue 07/05/2017 Constitutional No fever 07/05/2017 Constitutional No insomnia 07/05/2017 Constitutional malaise 07/05/2017 Eyes No eye discharge 07/05/2017 Eyes No eye erythema 07/05/2017 Ears/Nose/Throat/Neck dizziness 2016 Ears/Nose/Throat/Neck No nasal allergies 07/05/2017 Ears/Nose/Throat/Neck No nasal discharge 07/05/2017 Cardiovascular No chest pain/pressure 12/2016 Cardiovascular No dyspnea 07/05/2017 Cardiovascular No edema 07/05/2017 Cardiovascular fatigue 07/05/2017 Cardiovascular hypertension 07/05/2017 Respiratory No cigarette smoking 2016 Respiratory No cough 07/05/2017 Respiratory No dyspnea on exertion 2016 Respiratory No dyspnea 07/05/2017 Gastrointestinal No constipation 2016 Gastrointestinal No diarrhea 07/05/2017 Genitourinary/Nephrology No dysuria 07/05 Genitourinary/Nephrology No nocturia 12/2016 Neurologic dizziness 07/05/2017 Neurologic headache 07/05/2017 Dermatologic No rash 07/05/2017 Dermatologic No sores 07/05/2017 Musculoskeletal stiffness 07/05/2017 Musculoskeletal arthralgia(s) 07/05/2017 Musculoskeletal back pain 07/05/2017 Musculoskeletal myalgias 07/05/2017 Musculoskeletal muscle weakness 2016 Constitutional No recent illness 2016 Constitutional No anorexia 12/02/2016 Constitutional No night sweats 2016 Constitutional No chills 12/02/2016 Constitutional No diaphoresis 12/02/2016 Constitutional fatigue 12/02/2016 Constitutional No fever 12/02/2016 Constitutional insomnia 12/02/2016 Constitutional No malaise 12/02/2016 Constitutional No weight loss 12/02/2016 Constitutional No weight gain 12/02/2016 Eyes No eye discharge 12/02/2016 Eyes No eye erythema 12/02/2016 Ears/Nose/Throat/Neck dizziness 2016 Ears/Nose/Throat/Neck headache 2016 Cardiovascular No chest pain/pressure 11/2016 Cardiovascular No dyspnea 12/02/2016 Respiratory No productive sputum 2016 Respiratory No cough 12/02/2016 Gastrointestinal No abdominal pain 2016 Gastrointestinal No constipation 2016 Gastrointestinal No diarrhea 12/02/2016 Genitourinary/Nephrology No dysuria 12/02 Gastrointestinal gas and bloating 2016 Musculoskeletal joint complaint 2016 Dermatologic No rash 12/02/2016 Neurologic No alteration of consciousness 12/02/2016 Constitutional No recent illness 2016 Constitutional No anorexia 11/22/2016 Constitutional No night sweats 2016 Constitutional No chills 11/22/2016 Constitutional No diaphoresis 11/22/2016 Constitutional fatigue 11/22/2016 Constitutional No fever 11/22/2016 Constitutional No insomnia 11/22/2016 Constitutional No malaise 11/22/2016 Eyes No eye discharge 11/22/2016 Eyes No eye erythema 11/22/2016 Ears/Nose/Throat/Neck dizziness 2016 Ears/Nose/Throat/Neck No nasal allergies 11/22/2016 Ears/Nose/Throat/Neck No nasal discharge 11/22/2016 Cardiovascular No chest pain/pressure Cardiovascular No dyspnea 11/22/2016 Cardiovascular No edema 11/22/2016 Cardiovascular fatigue 11/22/2016 Cardiovascular hypertension 11/22/2016 Respiratory No cigarette smoking 2016 Respiratory No cough 11/22/2016 Respiratory No dyspnea on exertion 2016 Respiratory No dyspnea 11/22/2016 Gastrointestinal No constipation 2016 Gastrointestinal No diarrhea 11/22/2016 Genitourinary/Nephrology No dysuria 11/22 Genitourinary/Nephrology No nocturia Neurologic dizziness 11/22/2016 Neurologic headache 11/22/2016 Constitutional recent illness 11/05/2016 Constitutional chills 11/05/2016 Constitutional No diaphoresis 11/05/2016 Constitutional fever 11/05/2016 Eyes No eye erythema 11/05/2016 Ears/Nose/Throat/Neck nasal allergies 12/2016 Ears/Nose/Throat/Neck nasal discharge 12/2016 Ears/Nose/Throat/Neck postnasal drip 12/2016 Ears/Nose/Throat/Neck sinus congestion Ears/Nose/Throat/Neck sore throat 2016 Cardiovascular No chest pain/pressure 12/2016 Cardiovascular No dyspnea 11/05/2016 Respiratory No chest congestion 2016 Respiratory cough 11/05/2016 Respiratory No dyspnea 11/05/2016 Gastrointestinal No constipation 2016 Gastrointestinal No diarrhea 11/05/2016 Gastrointestinal No nausea 11/05/2016 Gastrointestinal No vomiting 11/05/2016 Dermatologic No rash 11/05/2016 Neurologic No alteration of consciousness 11/05/2016 Neurologic No mental status change 2016 Constitutional No recent illness 2015 Constitutional No chills 07/22/2016 Constitutional fatigue 07/22/2016 Constitutional No fever 07/22/2016 Constitutional No insomnia 07/22/2016 Ears/Nose/Throat/Neck No dizziness 2015 Cardiovascular No chest pain/pressure Cardiovascular No dyspnea 07/22/2016 Cardiovascular No edema 07/22/2016 Cardiovascular fatigue 07/22/2016 Cardiovascular No palpitations 2015 Respiratory No chest congestion 2015 Gastrointestinal No abdominal pain 2015 Gastrointestinal No diarrhea 07/22/2016 Gastrointestinal No vomiting 07/22/2016 Genitourinary/Nephrology No dysuria 07/22 Genitourinary/Nephrology No urinary frequency 07/22/2016 Musculoskeletal arthralgia(s) 07/22/2016 Dermatologic No sores 07/22/2016 Neurologic dizziness 07/22/2016 Psychiatric No anxiety 07/22/2016 Psychiatric No depression 07/22/2016 Eyes No vision change 07/22/2016 Musculoskeletal muscle weakness 2015 Constitutional No recent illness 2015 Constitutional No chills 05/19/2016 Constitutional No diaphoresis 05/19/2016 Constitutional fatigue 05/19/2016 Eyes No eye discharge 05/19/2016 Eyes No eye erythema 05/19/2016 Ears/Nose/Throat/Neck dizziness 2015 Ears/Nose/Throat/Neck No headache 2015 Ears/Nose/Throat/Neck No nasal allergies 05/19/2016 Ears/Nose/Throat/Neck No nasal discharge 05/19/2016 Cardiovascular No chest pain/pressure Cardiovascular No dyspnea 05/19/2016 Cardiovascular No edema 05/19/2016 Respiratory No chest congestion 2015 Respiratory No cough 05/19/2016 Gastrointestinal No abdominal pain 2015 Gastrointestinal constipation 05/19/2016 Gastrointestinal No diarrhea 05/19/2016 Gastrointestinal No nausea 05/19/2016 Gastrointestinal No vomiting 05/19/2016 Genitourinary/Nephrology No dysuria 05/19 Musculoskeletal joint complaint 2015 Dermatologic No rash 05/19/2016 Neurologic No alteration of consciousness 05/19/2016 Neurologic No mental status change 2015 Constitutional No recent illness 2015 Constitutional No anorexia 02/13/2016 Constitutional No night sweats 2015 Constitutional No chills 02/13/2016 Constitutional No diaphoresis 02/13/2016 Constitutional fatigue 02/13/2016 Constitutional No fever 02/13/2016 Constitutional No insomnia 02/13/2016 Constitutional No malaise 02/13/2016 Constitutional No weight loss 02/13/2016 Constitutional No weight gain 02/13/2016 Constitutional No obesity 02/13/2016 Cardiovascular No chest pain/pressure Cardiovascular No edema 02/13/2016 Cardiovascular hypertension 02/13/2016 Cardiovascular fatigue 02/13/2016 Cardiovascular No dyspnea 02/13/2016 Ears/Nose/Throat/Neck dizziness 2015 Ears/Nose/Throat/Neck No nasal discharge 02/13/2016 Ears/Nose/Throat/Neck No nasal allergies 02/13/2016 Respiratory No cigarette smoking 2015 Respiratory No cough 02/13/2016 Respiratory No dyspnea on exertion 2015 Respiratory No dyspnea 02/13/2016 Genitourinary/Nephrology No dysuria 02/12 Genitourinary/Nephrology No nocturia Eyes No eye discharge 02/13/2016 Eyes No eye erythema 02/13/2016 Gastrointestinal No diarrhea 02/13/2016 Gastrointestinal No constipation 2015 Neurologic dizziness 02/13/2016 Neurologic headache 02/13/2016 Constitutional No recent illness 2015 Constitutional No anorexia 01/13/2016 Constitutional No night sweats 2015 Constitutional No chills 01/13/2016 Constitutional No diaphoresis 01/13/2016 Constitutional No fatigue 01/13/2016 Constitutional No fever 01/13/2016 Constitutional No insomnia 01/13/2016 Constitutional No malaise 01/13/2016 Constitutional No weight loss 01/13/2016 Constitutional No weight gain 01/13/2016 Constitutional No obesity 01/13/2016 Cardiovascular No chest pain/pressure 09/2016 Cardiovascular No dyspnea 01/13/2016 Cardiovascular No edema 01/13/2016 Cardiovascular palpitations 01/13/2016 Cardiovascular No near-syncope/dizziness 01/13/2016 Neurologic dizziness 01/13/2016 Neurologic headache 01/13/2016 Respiratory No cigarette smoking 2015 Respiratory No cough 01/13/2016 Respiratory No chest tightness 2015 Respiratory No chest congestion 2015 Respiratory No dyspnea on exertion 2015 Respiratory No dyspnea 01/13/2016 Constitutional No recent illness 2015 Constitutional No chills 01/02/2016 Constitutional No diaphoresis 01/02/2016 Constitutional fatigue 01/02/2016 Constitutional No fever 01/02/2016 Constitutional No insomnia 01/02/2016 Constitutional No malaise 01/02/2016 Eyes No eye discharge 01/02/2016 Eyes No eye erythema 01/02/2016 Ears/Nose/Throat/Neck dizziness 2015 Ears/Nose/Throat/Neck No headache 2015 Cardiovascular No chest pain/pressure 10/2015 Cardiovascular No dyspnea 01/02/2016 Cardiovascular No edema 01/02/2016 Respiratory No cough 01/02/2016 Gastrointestinal No abdominal pain 2015 Genitourinary/Nephrology No dysuria 01/01 Musculoskeletal joint complaint 2015 Dermatologic No rash 01/02/2016 Ears/Nose/Throat/Neck No nasal allergies 01/02/2016 Ears/Nose/Throat/Neck No nasal discharge 01/02/2016 Respiratory No chest congestion 2015 Gastrointestinal constipation 01/02/2016 Gastrointestinal No diarrhea 01/02/2016 Gastrointestinal No nausea 01/02/2016 Gastrointestinal No vomiting 01/02/2016 Neurologic No alteration of consciousness 01/02/2016 Neurologic No mental status change 2015 Constitutional No recent illness 2015 Constitutional No anorexia 12/18/2015 Constitutional No night sweats 2015 Constitutional No chills 12/18/2015 Constitutional No diaphoresis 12/18/2015 Constitutional No fatigue 12/18/2015 Constitutional No fever 12/18/2015 Constitutional No insomnia 12/18/2015 Constitutional No malaise 12/18/2015 Constitutional No weight loss 12/18/2015 Constitutional No weight gain 12/18/2015 Eyes No eye discharge 12/18/2015 Eyes No eye erythema 12/18/2015 Ears/Nose/Throat/Neck dizziness 2015 Ears/Nose/Throat/Neck No headache 2015 Cardiovascular No chest pain/pressure Cardiovascular No dyspnea 12/18/2015 Cardiovascular No edema 12/18/2015 Respiratory No cough 12/18/2015 Gastrointestinal No abdominal pain 2015 Genitourinary/Nephrology No dysuria 12/17 Musculoskeletal joint complaint 2015 Dermatologic No rash 12/18/2015 Constitutional No recent illness 2014 Constitutional No chills 09/08/2015 Constitutional fatigue 09/08/2015 Constitutional No fever 09/08/2015 Constitutional No insomnia 09/08/2015 Ears/Nose/Throat/Neck No dizziness 2014 Cardiovascular No chest pain/pressure 04/2015 Cardiovascular dyspnea 09/08/2015 Cardiovascular No edema 09/08/2015 Cardiovascular fatigue 09/08/2015 Cardiovascular palpitations 09/08/2015 Respiratory No chest congestion 2014 Gastrointestinal No abdominal pain 2014 Gastrointestinal No diarrhea 09/08/2015 Gastrointestinal No vomiting 09/08/2015 Genitourinary/Nephrology No dysuria 09/08 Genitourinary/Nephrology No urinary frequency 09/08/2015 Musculoskeletal arthralgia(s) 09/08/2015 Dermatologic No sores 09/08/2015 Neurologic dizziness 09/08/2015 Psychiatric No anxiety 09/08/2015 Psychiatric No depression 09/08/2015 Constitutional No recent illness 2014 Constitutional No chills 07/09/2015 Constitutional No fatigue 07/09/2015 Constitutional No fever 07/09/2015 Constitutional No insomnia 07/09/2015 Ears/Nose/Throat/Neck No dizziness 2014 Cardiovascular No chest pain/pressure 04/2015 Cardiovascular No dyspnea 07/09/2015 Cardiovascular No edema 07/09/2015 Cardiovascular No fatigue 07/09/2015 Cardiovascular palpitations 07/09/2015 Respiratory No chest congestion 2014 Gastrointestinal No abdominal pain 2014 Gastrointestinal No diarrhea 07/09/2015 Gastrointestinal No vomiting 07/09/2015 Genitourinary/Nephrology No dysuria 07/09 Genitourinary/Nephrology No urinary frequency 07/09/2015 Musculoskeletal arthralgia(s) 07/09/2015 Dermatologic No sores 07/09/2015 Neurologic No dizziness 07/09/2015 Psychiatric No anxiety 07/09/2015 Psychiatric No depression 07/09/2015 Constitutional No malaise 07/09/2015 Eyes No blindness 07/09/2015 Eyes No vision change 07/09/2015 Ears/Nose/Throat/Neck No dental pain 04/2015 Ears/Nose/Throat/Neck No dysphagia 2014 Ears/Nose/Throat/Neck No headache 2014 Ears/Nose/Throat/Neck No hearing loss 04/2015 Ears/Nose/Throat/Neck No nasal allergies 07/09/2015 Ears/Nose/Throat/Neck No sore throat 04/2015 Ears/Nose/Throat/Neck No postnasal drip 07/09/2015 Ears/Nose/Throat/Neck No sinus congestion 07/09/2015 Cardiovascular No exercise intolerance Cardiovascular No near-syncope/dizziness 07/09/2015 Respiratory No chest tightness 2014 Respiratory No cough 07/09/2015 Respiratory No dyspnea 07/09/2015 Respiratory No pedal edema 07/09/2015 Gastrointestinal No constipation 2014 Gastrointestinal No gastroesophageal reflux 07/09/2015 Gastrointestinal No nausea 07/09/2015 Genitourinary/Nephrology No nocturia 04/2015 Genitourinary/Nephrology No urinary incontinence 07/09/2015 Musculoskeletal No stiffness 07/09/2015 Musculoskeletal No swelling 07/09/2015 Musculoskeletal No muscle weakness 2014 Musculoskeletal No myalgias 07/09/2015 Dermatologic No rash 07/09/2015 Dermatologic No scar 07/09/2015 Neurologic No headache 07/09/2015 Neurologic No neck pain 07/09/2015 Neurologic No syncope 07/09/2015 Constitutional No recent illness 2014 Constitutional No chills 01/16/2015 Constitutional fatigue 01/16/2015 Constitutional No fever 01/16/2015 Constitutional No insomnia 01/16/2015 Ears/Nose/Throat/Neck No dizziness 2014 Cardiovascular No chest pain/pressure Cardiovascular dyspnea 01/16/2015 Cardiovascular No edema 01/16/2015 Cardiovascular fatigue 01/16/2015 Cardiovascular palpitations 01/16/2015 Respiratory No chest congestion 2014 Gastrointestinal No abdominal pain 2014 Gastrointestinal No diarrhea 01/16/2015 Gastrointestinal No vomiting 01/16/2015 Genitourinary/Nephrology No dysuria 01/16 Genitourinary/Nephrology No urinary frequency 01/16/2015 Musculoskeletal arthralgia(s) 01/16/2015 Dermatologic No sores 01/16/2015 Neurologic dizziness 01/16/2015 Psychiatric No anxiety 01/16/2015 Psychiatric No depression 01/16/2015 Constitutional No recent illness 2014 Constitutional No chills 01/03/2015 Constitutional fatigue 01/03/2015 Constitutional No fever 01/03/2015 Constitutional No insomnia 01/03/2015 Ears/Nose/Throat/Neck No dizziness 2014 Cardiovascular No chest pain/pressure 12/2014 Cardiovascular dyspnea 01/03/2015 Cardiovascular No edema 01/03/2015 Cardiovascular fatigue 01/03/2015 Cardiovascular palpitations 01/03/2015 Respiratory No chest congestion 2014 Gastrointestinal No abdominal pain 2014 Gastrointestinal No diarrhea 01/03/2015 Gastrointestinal No vomiting 01/03/2015 Genitourinary/Nephrology No dysuria 01/03 Genitourinary/Nephrology No urinary frequency 01/03/2015 Musculoskeletal arthralgia(s) 01/03/2015 Dermatologic No sores 01/03/2015 Neurologic dizziness 01/03/2015 Psychiatric No anxiety 01/03/2015 Psychiatric No depression 01/03/2015 Constitutional No chills 09/16/2014 Constitutional No fever 09/16/2014 Eyes No eye erythema 09/16/2014 Eyes No eye floaters 09/16/2014 Eyes No eye pain 09/16/2014 Eyes No vision change 09/16/2014 Ears/Nose/Throat/Neck No dizziness 2013 Cardiovascular No chest pain/pressure Cardiovascular No dyspnea 09/16/2014 Cardiovascular No edema 09/16/2014 Cardiovascular No palpitations 2013 Respiratory No chest congestion 2013 Respiratory No chest tightness 2013 Gastrointestinal No abdominal pain 2013 Psychiatric No anxiety 09/16/2014 Psychiatric No depression 09/16/2014 Musculoskeletal stiffness 09/16/2014 Musculoskeletal arthralgia(s) 09/16/2014 Musculoskeletal back pain 09/16/2014 Constitutional No recent illness 2013 Constitutional No insomnia 08/15/2014 Constitutional fatigue 08/15/2014 Cardiovascular No chest pain/pressure Cardiovascular dyspnea 08/15/2014 Cardiovascular No edema 08/15/2014 Respiratory No chest congestion 2013 Respiratory cough 08/15/2014 Gastrointestinal constipation 08/15/2014 Gastrointestinal No diarrhea 08/15/2014 Gastrointestinal nausea 08/15/2014 Gastrointestinal No vomiting 08/15/2014 Gastrointestinal dyspepsia 08/15/2014 Genitourinary/Nephrology No dysuria 08/15 Genitourinary/Nephrology No urinary frequency 08/15/2014 Neurologic dizziness 08/15/2014 Cardiovascular fatigue 08/15/2014 Cardiovascular palpitations 08/15/2014 Psychiatric No anxiety 08/15/2014 Psychiatric No depression 08/15/2014 Musculoskeletal arthralgia(s) 08/15/2014 Constitutional No chills 08/15/2014 Constitutional No fever 08/15/2014 Ears/Nose/Throat/Neck No dizziness 2013 Gastrointestinal No abdominal pain 2013 Dermatologic No sores 08/15/2014 Constitutional No chills 06/12/2014 Constitutional No fever 06/12/2014 Eyes No eye erythema 06/12/2014 Eyes No eye floaters 06/12/2014 Eyes No eye pain 06/12/2014 Eyes No vision change 06/12/2014 Ears/Nose/Throat/Neck No dizziness 2013 Cardiovascular No chest pain/pressure 07/2014 Cardiovascular No dyspnea 06/12/2014 Cardiovascular No edema 06/12/2014 Cardiovascular No palpitations 2013 Respiratory No chest congestion 2013 Respiratory No chest tightness 2013 Gastrointestinal No abdominal pain 2013 Psychiatric No anxiety 06/12/2014 Psychiatric No depression 06/12/2014 Constitutional No chills 03/20/2014 Constitutional No fever 03/20/2014 Eyes No eye erythema 03/20/2014 Eyes No eye floaters 03/20/2014 Eyes No eye pain 03/20/2014 Eyes No vision change 03/20/2014 Ears/Nose/Throat/Neck No dizziness 2013 Cardiovascular No chest pain/pressure Cardiovascular No dyspnea 03/20/2014 Cardiovascular No edema 03/20/2014 Cardiovascular No palpitations 2013 Respiratory No chest congestion 2013 Respiratory No chest tightness 2013 Gastrointestinal No abdominal pain 2013 Dermatologic No rash 03/20/2014 Dermatologic No sores 03/20/2014 Psychiatric No anxiety 03/20/2014 Psychiatric No depression 03/20/2014 Constitutional No chills 12/10/2013 Constitutional No fever 12/10/2013 Eyes No eye erythema 12/10/2013 Eyes No eye floaters 12/10/2013 Eyes No eye pain 12/10/2013 Eyes No vision change 12/10/2013 Ears/Nose/Throat/Neck No dizziness 2013 Cardiovascular No chest pain/pressure 07/2014 Cardiovascular No dyspnea 12/10/2013 Cardiovascular No edema 12/10/2013 Cardiovascular No palpitations 2013 Respiratory No chest congestion 2013 Respiratory No chest tightness 2013 Gastrointestinal abdominal pain 2013 Dermatologic No rash 12/10/2013 Dermatologic No sores 12/10/2013 Psychiatric No anxiety 12/10/2013 Psychiatric No depression 12/10/2013 Gastrointestinal constipation 12/10/2013 Constitutional No chills 09/17/2013 Constitutional No fever 09/17/2013 Eyes No eye erythema 09/17/2013 Eyes No eye floaters 09/17/2013 Eyes No eye pain 09/17/2013 Eyes No vision change 09/17/2013 Ears/Nose/Throat/Neck No dizziness 2012 Cardiovascular No chest pain/pressure Cardiovascular No dyspnea 09/17/2013 Cardiovascular No edema 09/17/2013 Cardiovascular No palpitations 2012 Respiratory No chest congestion 2012 Respiratory No chest tightness 2012 Gastrointestinal No abdominal pain 2012 Dermatologic No rash 09/17/2013 Dermatologic No sores 09/17/2013 Psychiatric No anxiety 09/17/2013 Psychiatric No depression 09/17/2013 Constitutional No chills 05/21/2013 Constitutional No fever 05/21/2013 Eyes No eye erythema 05/21/2013 Eyes No eye floaters 05/21/2013 Eyes No eye pain 05/21/2013 Eyes No vision change 05/21/2013 Cardiovascular No chest pain/pressure Cardiovascular No dyspnea 05/21/2013 Cardiovascular No edema 05/21/2013 Cardiovascular No palpitations 2012 Respiratory No chest congestion 2012 Respiratory No chest tightness 2012 Gastrointestinal No abdominal pain 2012 Dermatologic No rash 05/21/2013 Dermatologic No sores 05/21/2013 Psychiatric No anxiety 05/21/2013 Psychiatric No depression 05/21/2013 Ears/Nose/Throat/Neck No dizziness 2012 Constitutional No chills 01/17/2013 Constitutional No fever 01/17/2013 Eyes No eye erythema 01/17/2013 Eyes No eye floaters 01/17/2013 Eyes No eye pain 01/17/2013 Eyes No vision change 01/17/2013 Cardiovascular No chest pain/pressure Cardiovascular No dyspnea 01/17/2013 Cardiovascular No edema 01/17/2013 Cardiovascular No palpitations 2012 Respiratory No chest congestion 2012 Respiratory No chest tightness 2012 Gastrointestinal No abdominal pain 2012 Dermatologic No rash 01/17/2013 Dermatologic No sores 01/17/2013 Psychiatric No anxiety 01/17/2013 Psychiatric No depression 01/17/2013 Constitutional No chills 09/20/2012 Constitutional No fever 09/20/2012 Eyes No eye erythema 09/20/2012 Eyes No eye floaters 09/20/2012 Eyes No eye pain 09/20/2012 Eyes No vision change 09/20/2012 Cardiovascular No chest pain/pressure Cardiovascular No dyspnea 09/20/2012 Cardiovascular No edema 09/20/2012 Cardiovascular No palpitations 2011 Respiratory No chest congestion 2011 Respiratory No chest tightness 2011 Gastrointestinal No abdominal pain 2011 Dermatologic No rash 09/20/2012 Dermatologic No sores 09/20/2012 Psychiatric No anxiety 09/20/2012 Psychiatric No depression 09/20/2012 Musculoskeletal arthralgia(s) 09/20/2012 Musculoskeletal stiffness 09/20/2012 Musculoskeletal muscle weakness 2011 Musculoskeletal myalgias 09/20/2012 Constitutional No chills 06/08/2012 Constitutional No fever 06/08/2012 Cardiovascular No chest pain/pressure 03/2012 Cardiovascular No dyspnea 06/08/2012 Cardiovascular No edema 06/08/2012 Cardiovascular No palpitations 2011 Respiratory No chest congestion 2011 Respiratory No chest tightness 2011 Gastrointestinal No abdominal pain 2011 Dermatologic No rash 06/08/2012 Dermatologic No sores 06/08/2012 Psychiatric No anxiety 06/08/2012 Psychiatric No depression 06/08/2012 Eyes No eye floaters 06/08/2012 Eyes No eye erythema 06/08/2012 Eyes No eye pain 06/08/2012 Eyes No vision change 06/08/2012 Constitutional No chills 04/10/2012 Constitutional No fever 04/10/2012 Cardiovascular No chest pain/pressure 06/2012 Cardiovascular No dyspnea 04/10/2012 Cardiovascular No edema 04/10/2012 Cardiovascular No palpitations 2011 Respiratory No chest congestion 2011 Respiratory No chest tightness 2011 Gastrointestinal No abdominal pain 2011 Dermatologic No rash 04/10/2012 Dermatologic No sores 04/10/2012 Psychiatric No anxiety 04/10/2012 Psychiatric No depression 04/10/2012 Constitutional No chills 03/16/2012 Constitutional No fever 03/16/2012 Respiratory No chest congestion 2011 Respiratory No chest tightness 2011 Gastrointestinal No abdominal pain 2011 Cardiovascular No chest pain/pressure Cardiovascular No dyspnea 03/16/2012 Cardiovascular No edema 03/16/2012 Cardiovascular No palpitations 2011 Psychiatric No anxiety 03/16/2012 Psychiatric No depression 03/16/2012 Dermatologic No rash 03/16/2012 Dermatologic No sores 03/16/2012 Constitutional night sweats 02/03/2012 Constitutional No chills 02/03/2012 Constitutional fatigue 02/03/2012 Constitutional No fever 02/03/2012 Constitutional insomnia 02/03/2012 Eyes vision change 02/03/2012 Ears/Nose/Throat/Neck No facial weakness 02/03/2012 Ears/Nose/Throat/Neck No hoarseness 02/02 Ears/Nose/Throat/Neck No nasal allergies 02/03/2012 Ears/Nose/Throat/Neck No nasal discharge 02/03/2012 Ears/Nose/Throat/Neck No nasal pain 02/02 Ears/Nose/Throat/Neck No sore throat 12/2011 Respiratory No chest congestion 2011 Respiratory No chest tightness 2011 Respiratory cough 02/03/2012 Gastrointestinal No abdominal pain 2011 Gastrointestinal constipation 02/03/2012 Gastrointestinal gastroesophageal reflux 02/03/2012 Genitourinary/Nephrology No urinary urgency 02/03/2012 Genitourinary/Nephrology urinary frequency 02/03/2012 Musculoskeletal stiffness 02/03/2012 Musculoskeletal swelling 02/03/2012 Musculoskeletal arthralgia(s) 02/03/2012 Musculoskeletal back pain 02/03/2012 Musculoskeletal joint complaint 2011 Dermatologic sores 02/03/2012 Neurologic memory loss 02/03/2012 Constitutional night sweats 11/04/2011 Constitutional No fever 11/04/2011 Constitutional No chills 11/04/2011 Constitutional fatigue 11/04/2011 Constitutional insomnia 11/04/2011 Eyes vision change 11/04/2011 Ears/Nose/Throat/Neck No sore throat 11/2011 Ears/Nose/Throat/Neck No nasal pain 11/04 Ears/Nose/Throat/Neck No facial weakness 11/04/2011 Ears/Nose/Throat/Neck No hoarseness 11/04 Ears/Nose/Throat/Neck No nasal allergies 11/04/2011 Ears/Nose/Throat/Neck No nasal discharge 11/04/2011 Cardiovascular No chest pain/pressure 11/2011 Cardiovascular No palpitations 2011 Cardiovascular No dyspnea 11/04/2011 Cardiovascular No edema 11/04/2011 Respiratory cough 11/04/2011 Respiratory No chest congestion 2011 Respiratory No chest tightness 2011 Gastrointestinal No abdominal pain 2011 Gastrointestinal constipation 11/04/2011 Gastrointestinal gastroesophageal reflux 11/04/2011 Musculoskeletal stiffness 11/04/2011 Musculoskeletal swelling 11/04/2011 Musculoskeletal arthralgia(s) 11/04/2011 Musculoskeletal joint complaint 2011 Musculoskeletal back pain 11/04/2011 Genitourinary/Nephrology urinary frequency 11/04/2011 Genitourinary/Nephrology No urinary urgency 11/04/2011 Dermatologic sores 11/04/2011 Neurologic memory loss 11/04/2011 Constitutional No anorexia 07/13/2011 Constitutional No chills 07/13/2011 Constitutional No fever 07/13/2011 Cardiovascular No chest pain/pressure 08/2011 Cardiovascular No dyspnea 07/13/2011 Cardiovascular edema 07/13/2011 Respiratory No chest congestion 2010 Respiratory No chest tightness 2010 Respiratory No cough 07/13/2011 Genitourinary/Nephrology No urinary urgency 07/13/2011 Genitourinary/Nephrology No urinary frequency 07/13/2011 Musculoskeletal arthralgia(s) 07/13/2011 Musculoskeletal stiffness 07/13/2011 Musculoskeletal muscle weakness 2010 Dermatologic No rash 07/13/2011 Dermatologic No sores 07/13/2011 Psychiatric No anxiety 07/13/2011 Psychiatric No depression 07/13/2011 Eyes No vision change 07/13/2011 Physical Exam Exam Name System Name Item Name Status Result Effective Dates Notes Full Exam - General 1994 Constitutional general appearance Overall: well developed 08/03/2017 None Full Exam - General 1994 Constitutional general appearance Overall: in no acute distress 08/03/2017 None Full Exam - General 1994 Constitutional general appearance Overall: well nourished 08/03/2017 None Full Exam - General 1994 Eyes conjunctiva /eyelids Overall: conjunctiva clear 08/03/2017 None Full Exam - General 1994 Eyes conjunctiva /eyelids Overall: eyelids normal 08/03/2017 None Full Exam - General 1994 Ears/Nose/Throat lips/teeth/gingiva Overall: benign lips 08/03/2017 None Full Exam - General 1994 Ears/Nose/Throat oral cavity/pharynx/larynx Overall: oral mucosa clear 08/03/2017 None Full Exam - General 1994 Ears/Nose/Throat oral cavity/pharynx/larynx Overall: oropharyngeal mucosa clear 08/03/2017 None Full Exam - General 1994 Respiratory auscultation Overall: breath sounds clear bilaterally 08/03/2017 None Full Exam - General 1994 Respiratory respiratory effort/rhythm Overall: no retractions 08/03/2017 None Full Exam - General 1994 Respiratory respiratory effort/rhythm Overall: normal rate 08/03/2017 None Full Exam - General 1994 Cardiovascular auscultation of heart Overall: regular rate 08/03/2017 None Full Exam - General 1994 Cardiovascular auscultation of heart Overall: normal heart sounds 08/03/2017 None Full Exam - General 1994 Abdomen abdominal exam Overall: normal bowel sounds 08/03/2017 None Full Exam - General 1994 Abdomen abdominal exam Overall: no tenderness 08/03/2017 None Full Exam - General 1994 Lymphatic neck nodes Overall: posterior cervical chain benign 08/03/2017 None Full Exam - General 1994 Lymphatic neck nodes Overall: anterior cervical chain benign 08/03/2017 None Full Exam - General 1994 Musculoskeletal head and neck Overall: head atraumatic 08/03/2017 None Full Exam - General 1994 Musculoskeletal gait and station Overall: normal station 08/03/2017 None Full Exam - General 1994 Musculoskeletal gait and station Overall: normal gait 08/03/2017 None Full Exam - General 1994 Neurologic cranial nerves Overall: crainial nerves 2 - 12 grossly intact 08/03/2017 None Full Exam - General 1994 Psychiatric orientation/consciousness Overall: oriented to person, place and time 08/03/2017 None Full Exam - General 1994 Psychiatric mood and affect Overall: normal mood and affect 08/03/2017 None Full Exam - General 1994 Constitutional general appearance Overall: well developed 07/05/2017 None Full Exam - General 1994 Constitutional general appearance Overall: in no acute distress 07/05/2017 None Full Exam - General 1994 Constitutional general appearance Overall: well nourished 07/05/2017 None Full Exam - General 1994 Eyes pupils and irises Overall: pupils equal, round, reactive to light and accomodation 07/05/2017 None Full Exam - General 1994 Ears/Nose/Throat lips/teeth/gingiva Overall: benign lips 07/05/2017 None Full Exam - General 1994 Ears/Nose/Throat oral cavity/pharynx/larynx Overall: oral mucosa clear 07/05/2017 None Full Exam - General 1994 Respiratory auscultation Overall: breath sounds clear bilaterally 07/05/2017 None Full Exam - General 1994 Respiratory respiratory effort/rhythm Overall: no retractions 07/05/2017 None Full Exam - General 1994 Respiratory respiratory effort/rhythm Overall: normal rate 07/05/2017 None Full Exam - General 1994 Cardiovascular auscultation of heart Overall: regular rate 07/05/2017 None Full Exam - General 1994 Cardiovascular auscultation of heart Overall: normal heart sounds 07/05/2017 None Full Exam - General 1994 Integument inspection of skin Overall: few scattered moles, no gross abnormalities 07/05/2017 None Full Exam - General 1994 Neurologic cranial nerves Overall: crainial nerves 2 - 12 grossly intact 07/05/2017 None Full Exam - General 1994 Psychiatric orientation/consciousness Overall: oriented to person, place and time 07/05/2017 None Full Exam - General 1994 Psychiatric mood and affect Overall: normal mood and affect 07/05/2017 None Full Exam - General 1994 Abdomen abdominal exam Overall: no tenderness 07/05/2017 None Full Exam - General 1994 Abdomen abdominal exam Overall: normal bowel sounds 07/05/2017 None Full Exam - General 1994 Lymphatic neck nodes Overall: anterior cervical chain benign 07/05/2017 None Full Exam - General 1994 Lymphatic neck nodes Overall: posterior cervical chain benign 07/05/2017 None Full Exam - General 1994 Constitutional general appearance Overall: well developed 12/02/2016 None Full Exam - General 1994 Constitutional general appearance Overall: in no acute distress 12/02/2016 None Full Exam - General 1994 Constitutional general appearance Overall: well nourished 12/02/2016 None Full Exam - General 1994 Ears/Nose/Throat lips/teeth/gingiva Overall: benign lips 12/02/2016 None Full Exam - General 1994 Ears/Nose/Throat oral cavity/pharynx/larynx Overall: oral mucosa clear 12/02/2016 None Full Exam - General 1994 Respiratory auscultation Overall: breath sounds clear bilaterally 12/02/2016 None Full Exam - General 1994 Respiratory respiratory effort/rhythm Overall: no retractions 12/02/2016 None Full Exam - General 1994 Respiratory respiratory effort/rhythm Overall: normal rate 12/02/2016 None Full Exam - General 1994 Cardiovascular auscultation of heart Overall: regular rate 12/02/2016 None Full Exam - General 1994 Cardiovascular auscultation of heart Overall: normal heart sounds 12/02/2016 None Full Exam - General 1994 Integument inspection of skin Overall: few scattered moles, no gross abnormalities 12/02/2016 None Full Exam - General 1994 Neurologic cranial nerves Overall: crainial nerves 2 - 12 grossly intact 12/02/2016 None Full Exam - General 1994 Psychiatric orientation/consciousness Overall: oriented to person, place and time 12/02/2016 None Full Exam - General 1994 Psychiatric mood and affect Overall: normal mood and affect 12/02/2016 None Full Exam - General 1994 Abdomen abdominal exam Overall: normal bowel sounds 12/02/2016 None Full Exam - General 1994 Abdomen abdominal exam Overall: no tenderness 12/02/2016 None Full Exam - General 1994 Constitutional general appearance Overall: well developed 11/22/2016 None Full Exam - General 1994 Constitutional general appearance Overall: in no acute distress 11/22/2016 None Full Exam - General 1994 Constitutional general appearance Overall: well nourished 11/22/2016 None Full Exam - General 1994 Ears/Nose/Throat lips/teeth/gingiva Overall: benign lips 11/22/2016 None Full Exam - General 1994 Ears/Nose/Throat oral cavity/pharynx/larynx Overall: oral mucosa clear 11/22/2016 None Full Exam - General 1994 Respiratory auscultation Overall: breath sounds clear bilaterally 11/22/2016 None Full Exam - General 1994 Respiratory respiratory effort/rhythm Overall: no retractions 11/22/2016 None Full Exam - General 1994 Respiratory respiratory effort/rhythm Overall: normal rate 11/22/2016 None Full Exam - General 1994 Cardiovascular auscultation of heart Overall: regular rate 11/22/2016 None Full Exam - General 1994 Cardiovascular auscultation of heart Overall: normal heart sounds 11/22/2016 None Full Exam - General 1994 Integument inspection of skin Overall: few scattered moles, no gross abnormalities 11/22/2016 None Full Exam - General 1994 Neurologic cranial nerves Overall: crainial nerves 2 - 12 grossly intact 11/22/2016 None Full Exam - General 1994 Psychiatric orientation/consciousness Overall: oriented to person, place and time 11/22/2016 None Full Exam - General 1994 Psychiatric mood and affect Overall: normal mood and affect 11/22/2016 None Full Exam - General 1994 Eyes pupils and irises Overall: pupils equal, round, reactive to light and accomodation 11/22/2016 None Full Exam - ENT Constitutional general appearance Overall: well nourished 11/05/2016 None Full Exam - ENT Constitutional general appearance Overall: well developed 11/05/2016 None Full Exam - ENT Constitutional general appearance Overall: in no acute distress 11/05/2016 None Full Exam - ENT Ears/Nose/Throat otoscopic exam Overall: external auditory canals normal 11/05/2016 None Full Exam - ENT Ears/Nose/Throat otoscopic exam Left tympanic membrane: air -fluid level 11/05/2016 None Full Exam - ENT Ears/Nose/Throat otoscopic exam Right tympanic membrane: air-fluid level 11/05/2016 None Full Exam - ENT Ears/Nose/Throat lips/ teeth/gingiva Overall: benign lips 11/05/2016 None Full Exam - ENT Ears/Nose/Throat oropharynx Overall: oral mucosa clear 11/05/2016 None Full Exam - ENT Ears/Nose/Throat oropharynx Posterior Pharynx: clear post nasal drainage 11/05/2016 None Full Exam - ENT Ears/Nose/Throat oropharynx Posterior Pharynx: erythema 11/05/2016 None Full Exam - ENT Respiratory inspection Overall: no retractions 11/05/2016 None Full Exam - ENT Respiratory inspection Overall: normal rate 12/2016 None Full Exam - ENT Respiratory auscultation Overall: breath sounds clear bilaterally 11/05/2016 None Full Exam - ENT Cardiovascular auscultation of heart Rate: normal rate 11/05/2016 None Full Exam - ENT Cardiovascular auscultation of heart Rhythm: regular rhythm 11/05/2016 None Full Exam - ENT Lymphatic palpation of lymph nodes Overall: anterior cervical chain benign 11/05/2016 None Full Exam - ENT Lymphatic palpation of lymph nodes Overall: posterior cervical chain benign 11/05/2016 None Full Exam - ENT Neurologic mood and affect Overall: normal mood 11/05/2016 None Full Exam - ENT Neurologic mood and affect Overall: normal affect 11/05/2016 None Full Exam - ENT Neurologic orientation Overall: oriented to person, place and time 11/05/2016 None Full Exam - General 1994 Constitutional general appearance Overall: well developed 07/22/2016 None Full Exam - General 1994 Constitutional general appearance Overall: in no acute distress 07/22/2016 None Full Exam - General 1994 Constitutional general appearance Overall: well nourished 07/22/2016 None Full Exam - General 1994 Eyes pupils and irises Overall: pupils equal, round, reactive to light and accomodation 07/22/2016 None Full Exam - General 1994 Ears/Nose/Throat otoscopic exam Overall: external auditory canals clear 07/22/2016 None Full Exam - General 1994 Ears/Nose/Throat otoscopic exam Overall: tympanic membranes clear 07/22/2016 None Full Exam - General 1994 Ears/Nose/Throat oral cavity/pharynx/larynx Overall: oral mucosa clear 07/22/2016 None Full Exam - General 1994 Ears/Nose/Throat oral cavity/pharynx/larynx Overall: oropharyngeal mucosa clear 07/22/2016 None Full Exam - General 1994 Ears/Nose/Throat oral cavity/pharynx/larynx Overall: no masses 07/22/2016 None Full Exam - General 1994 Respiratory auscultation Overall: breath sounds clear bilaterally 07/22/2016 None Full Exam - General 1994 Respiratory respiratory effort/rhythm Overall: no retractions 07/22/2016 None Full Exam - General 1994 Respiratory respiratory effort/rhythm Overall: normal rate 07/22/2016 None Full Exam - General 1994 Cardiovascular inspection of carotid pulses Overall: strong, bilaterally equal, no bruits 07/22/2016 None Full Exam - General 1994 Cardiovascular extremities Overall: no clubbing 07/22/2016 None Full Exam - General 1994 Cardiovascular auscultation of heart Overall: normal heart sounds 07/22/2016 None Full Exam - General 1994 Cardiovascular auscultation of heart Rate: regular rate 07/22/2016 None Full Exam - General 1994 Cardiovascular auscultation of heart Rhythm: irregular rhythm 07/22/2016 None Full Exam - General 1994 Abdomen abdominal exam Contour: rounded 07/22/2016 None Full Exam - General 1994 Abdomen abdominal exam Bowel sounds: a normal exam 07/22/2016 None Full Exam - General 1994 Abdomen abdominal exam Upper quadrant: non-tender to palpation 07/22/2016 None Full Exam - General 1994 Abdomen abdominal exam Lower quadrant: tender to palpation 07/22/2016 None Full Exam - General 1994 Musculoskeletal upper extremity Palpation - shoulder: tenderness @ subacromial space 07/22/2016 None Full Exam - General 1994 Musculoskeletal upper extremity Palpation - shoulder: tenderness @ bicipital groove 07/22/2016 None Full Exam - General 1994 Musculoskeletal upper extremity ROM - shoulder: crepitus 07/22/2016 None Full Exam - General 1994 Musculoskeletal spine, ribs and pelvis Posture: lordosis 07/22/2016 None Full Exam - General 1994 Musculoskeletal spine, ribs and pelvis Sacroiliac joints: tender right sacroiliac joint 07/22/2016 None Full Exam - General 1994 Musculoskeletal head and neck Overall: head atraumatic 07/22/2016 None Full Exam - General 1994 Integument inspection of skin Location: diffuse 07/22/2016 pink papular confluent Full Exam - General 1994 Integument inspection of skin Location: neck 07/22/2016 None Full Exam - General 1994 Integument inspection of skin Location: left arm 07/22/2016 None Full Exam - General 1994 Integument inspection of skin Location: right arm 07/22/2016 None Full Exam - General 1994 Integument inspection of skin Location: chest 07/22/2016 None Full Exam - General 1994 Integument inspection of skin Location: abdomen 07/22/2016 None Full Exam - General 1994 Neurologic gait Conventional walking: ataxic rhythm 07/22/2016 None Full Exam - General 1994 Neurologic gait Conventional walking: wide-based 07/22/2016 None Full Exam - General 1994 Neurologic cranial nerves Overall: crainial nerves 2 - 12 grossly intact 07/22/2016 None Full Exam - General 1994 Psychiatric orientation/consciousness Overall: oriented to person, place and time 07/22/2016 None Full Exam - General 1994 Psychiatric mood and affect Overall: normal mood and affect 07/22/2016 None Full Exam - General 1994 Constitutional general appearance Overall: well developed 05/19/2016 None Full Exam - General 1994 Constitutional general appearance Overall: in no acute distress 05/19/2016 None Full Exam - General 1994 Constitutional general appearance Overall: well nourished 05/19/2016 None Full Exam - General 1994 Ears/Nose/Throat lips/teeth/gingiva Overall: benign lips 05/19/2016 None Full Exam - General 1994 Ears/Nose/Throat oral cavity/pharynx/larynx Overall: oral mucosa clear 05/19/2016 None Full Exam - General 1994 Respiratory auscultation Overall: breath sounds clear bilaterally 05/19/2016 None Full Exam - General 1994 Respiratory respiratory effort/rhythm Overall: no retractions 05/19/2016 None Full Exam - General 1994 Respiratory respiratory effort/rhythm Overall: normal rate 05/19/2016 None Full Exam - General 1994 Cardiovascular auscultation of heart Overall: regular rate 05/19/2016 None Full Exam - General 1994 Cardiovascular auscultation of heart Overall: normal heart sounds 05/19/2016 None Full Exam - General 1994 Integument inspection of skin Overall: few scattered moles, no gross abnormalities 05/19/2016 None Full Exam - General 1994 Neurologic cranial nerves Overall: crainial nerves 2 - 12 grossly intact 05/19/2016 None Full Exam - General 1994 Psychiatric orientation/consciousness Overall: oriented to person, place and time 05/19/2016 None Full Exam - General 1994 Psychiatric mood and affect Overall: normal mood and affect 05/19/2016 None Full Exam - General 1994 Constitutional general appearance Overall: well developed 02/13/2016 None Full Exam - General 1994 Constitutional general appearance Overall: in no acute distress 02/13/2016 None Full Exam - General 1994 Constitutional general appearance Overall: well nourished 02/13/2016 None Full Exam - General 1994 Ears/Nose/Throat lips/teeth/gingiva Overall: benign lips 02/13/2016 None Full Exam - General 1994 Ears/Nose/Throat oral cavity/pharynx/larynx Overall: oral mucosa clear 02/13/2016 None Full Exam - General 1994 Respiratory auscultation Overall: breath sounds clear bilaterally 02/13/2016 None Full Exam - General 1994 Respiratory respiratory effort/rhythm Overall: no retractions 02/13/2016 None Full Exam - General 1994 Respiratory respiratory effort/rhythm Overall: normal rate 02/13/2016 None Full Exam - General 1994 Cardiovascular auscultation of heart Overall: regular rate 02/13/2016 None Full Exam - General 1994 Cardiovascular auscultation of heart Overall: normal heart sounds 02/13/2016 None Full Exam - General 1994 Integument inspection of skin Overall: few scattered moles, no gross abnormalities 02/13/2016 None Full Exam - General 1994 Neurologic cranial nerves Overall: crainial nerves 2 - 12 grossly intact 02/13/2016 None Full Exam - General 1994 Psychiatric orientation/consciousness Overall: oriented to person, place and time 02/13/2016 None Full Exam - General 1994 Psychiatric mood and affect Overall: normal mood and affect 02/13/2016 None Full Exam - General 1994 Constitutional general appearance Overall: well developed 01/13/2016 None Full Exam - General 1994 Constitutional general appearance Overall: in no acute distress 01/13/2016 None Full Exam - General 1994 Constitutional general appearance Overall: well nourished 01/13/2016 None Full Exam - General 1994 Ears/Nose/Throat lips/teeth/gingiva Overall: benign lips 01/13/2016 None Full Exam - General 1994 Ears/Nose/Throat oral cavity/pharynx/larynx Overall: oral mucosa clear 01/13/2016 None Full Exam - General 1994 Respiratory auscultation Overall: breath sounds clear bilaterally 01/13/2016 None Full Exam - General 1994 Respiratory respiratory effort/rhythm Overall: no retractions 01/13/2016 None Full Exam - General 1994 Respiratory respiratory effort/rhythm Overall: normal rate 01/13/2016 None Full Exam - General 1994 Cardiovascular auscultation of heart Overall: regular rate 01/13/2016 None Full Exam - General 1994 Cardiovascular auscultation of heart Overall: normal heart sounds 01/13/2016 None Full Exam - General 1994 Integument inspection of skin Overall: few scattered moles, no gross abnormalities 01/13/2016 None Full Exam - General 1994 Neurologic cranial nerves Overall: crainial nerves 2 - 12 grossly intact 01/13/2016 None Full Exam - General 1994 Psychiatric orientation/consciousness Overall: oriented to person, place and time 01/13/2016 None Full Exam - General 1994 Psychiatric mood and affect Overall: normal mood and affect 01/13/2016 None Full Exam - General 1994 Constitutional general appearance Overall: well developed 01/02/2016 None Full Exam - General 1994 Constitutional general appearance Overall: in no acute distress 01/02/2016 None Full Exam - General 1994 Constitutional general appearance Overall: well nourished 01/02/2016 None Full Exam - General 1994 Ears/Nose/Throat oral cavity/pharynx/larynx Overall: oral mucosa clear 01/02/2016 None Full Exam - General 1994 Respiratory auscultation Overall: breath sounds clear bilaterally 01/02/2016 None Full Exam - General 1994 Respiratory respiratory effort/rhythm Overall: no retractions 01/02/2016 None Full Exam - General 1994 Respiratory respiratory effort/rhythm Overall: normal rate 01/02/2016 None Full Exam - General 1994 Cardiovascular auscultation of heart Overall: regular rate 01/02/2016 None Full Exam - General 1994 Cardiovascular auscultation of heart Overall: normal heart sounds 01/02/2016 None Full Exam - General 1994 Integument inspection of skin Overall: few scattered moles, no gross abnormalities 01/02/2016 None Full Exam - General 1994 Neurologic cranial nerves Overall: crainial nerves 2 - 12 grossly intact 01/02/2016 None Full Exam - General 1994 Psychiatric orientation/consciousness Overall: oriented to person, place and time 01/02/2016 None Full Exam - General 1994 Ears/Nose/Throat lips/teeth/gingiva Overall: benign lips 01/02/2016 None Full Exam - General 1994 Psychiatric mood and affect Overall: normal mood and affect 01/02/2016 None Full Exam - General 1994 Constitutional general appearance Overall: well nourished 12/18/2015 None Full Exam - General 1994 Constitutional general appearance Overall: in no acute distress 12/18/2015 None Full Exam - General 1994 Constitutional general appearance Overall: well developed 12/18/2015 None Full Exam - General 1994 Psychiatric orientation/consciousness Overall: oriented to person, place and time 12/18/2015 None Full Exam - General 1994 Neurologic deep tendon reflexes Overall: deep tendon reflexes intact 12/18/2015 None Full Exam - General 1994 Neurologic cranial nerves Overall: crainial nerves 2 - 12 grossly intact 12/18/2015 None Full Exam - General 1994 Integument inspection of skin Overall: few scattered moles, no gross abnormalities 12/18/2015 None Full Exam - General 1994 Ears/Nose/Throat otoscopic exam Overall: tympanic membranes clear 12/18/2015 None Full Exam - General 1994 Ears/Nose/Throat otoscopic exam Overall: external auditory canals clear 12/18/2015 None Full Exam - General 1994 Ears/Nose/Throat oral cavity/pharynx/larynx Overall: oropharyngeal mucosa clear 12/18/2015 None Full Exam - General 1994 Ears/Nose/Throat oral cavity/pharynx/larynx Overall: no masses 12/18/2015 None Full Exam - General 1994 Ears/Nose/Throat oral cavity/pharynx/larynx Overall: oral mucosa clear 12/18/2015 None Full Exam - General 1994 Respiratory auscultation Overall: breath sounds clear bilaterally 12/18/2015 None Full Exam - General 1994 Respiratory respiratory effort/rhythm Overall: normal rate 12/18/2015 None Full Exam - General 1994 Respiratory respiratory effort/rhythm Overall: no retractions 12/18/2015 None Full Exam - General 1994 Cardiovascular auscultation of heart Overall: regular rate 12/18/2015 None Full Exam - General 1994 Cardiovascular auscultation of heart Overall: normal heart sounds 12/18/2015 None Full Exam - General 1994 Cardiovascular auscultation of heart Overall: no murmurs 12/18/2015 None Full Exam - General 1994 Constitutional general appearance Overall: well developed 09/08/2015 None Full Exam - General 1994 Constitutional general appearance Overall: in no acute distress 09/08/2015 None Full Exam - General 1994 Constitutional general appearance Overall: well nourished 09/08/2015 None Full Exam - General 1994 Eyes pupils and irises Overall: pupils equal, round, reactive to light and accomodation 09/08/2015 None Full Exam - General 1994 Respiratory auscultation Overall: breath sounds clear bilaterally 09/08/2015 None Full Exam - General 1994 Respiratory respiratory effort/rhythm Overall: no retractions 09/08/2015 None Full Exam - General 1994 Respiratory respiratory effort/rhythm Overall: normal rate 09/08/2015 None Full Exam - General 1994 Cardiovascular extremities Overall: no clubbing 09/08/2015 None Full Exam - General 1994 Cardiovascular auscultation of heart Rate: regular rate 09/08/2015 None Full Exam - General 1994 Cardiovascular auscultation of heart Rhythm: irregular rhythm 09/08/2015 None Full Exam - General 1994 Musculoskeletal upper extremity Palpation - shoulder: tenderness @ subacromial space 09/08/2015 None Full Exam - General 1994 Musculoskeletal upper extremity Palpation - shoulder: tenderness @ bicipital groove 09/08/2015 None Full Exam - General 1994 Musculoskeletal upper extremity ROM - shoulder: crepitus 09/08/2015 None Full Exam - General 1994 Musculoskeletal spine, ribs and pelvis Posture: lordosis 09/08/2015 None Full Exam - General 1994 Musculoskeletal head and neck Overall: head atraumatic 09/08/2015 None Full Exam - General 1994 Neurologic gait Conventional walking: ataxic rhythm 09/08/2015 None Full Exam - General 1994 Neurologic gait Conventional walking: wide-based 09/08/2015 None Full Exam - General 1994 Neurologic cranial nerves Overall: crainial nerves 2 - 12 grossly intact 09/08/2015 None Full Exam - General 1994 Psychiatric orientation/consciousness Overall: oriented to person, place and time 09/08/2015 None Full Exam - General 1994 Psychiatric mood and affect Overall: normal mood and affect 09/08/2015 None Full Exam - General 1994 Cardiovascular inspection of carotid pulses Overall: strong, bilaterally equal, no bruits 09/08/2015 None Full Exam - General 1994 Ears/Nose/Throat otoscopic exam Overall: external auditory canals clear 09/08/2015 None Full Exam - General 1994 Ears/Nose/Throat otoscopic exam Overall: tympanic membranes clear 09/08/2015 None Full Exam - General 1994 Ears/Nose/Throat oral cavity/pharynx/larynx Overall: oral mucosa clear 09/08/2015 None Full Exam - General 1994 Ears/Nose/Throat oral cavity/pharynx/larynx Overall: oropharyngeal mucosa clear 09/08/2015 None Full Exam - General 1994 Ears/Nose/Throat oral cavity/pharynx/larynx Overall: no masses 09/08/2015 None Full Exam - General 1994 Cardiovascular auscultation of heart Overall: normal heart sounds 09/08/2015 None Full Exam - General 1994 Abdomen abdominal exam Contour: rounded 09/08/2015 None Full Exam - General 1994 Abdomen abdominal exam Bowel sounds: a normal exam 09/08/2015 None Full Exam - General 1994 Abdomen abdominal exam Upper quadrant: non-tender to palpation 09/08/2015 None Full Exam - General 1994 Abdomen abdominal exam Lower quadrant: tender to palpation 09/08/2015 None Full Exam - General 1994 Musculoskeletal spine, ribs and pelvis Sacroiliac joints: tender right sacroiliac joint 09/08/2015 None Full Exam - General 1994 Integument inspection of skin Location: diffuse 09/08/2015 pink papular confluent Full Exam - General 1994 Integument inspection of skin Location: neck 09/08/2015 None Full Exam - General 1994 Integument inspection of skin Location: left arm 09/08/2015 None Full Exam - General 1994 Integument inspection of skin Location: right arm 09/08/2015 None Full Exam - General 1994 Integument inspection of skin Location: chest 09/08/2015 None Full Exam - General 1994 Integument inspection of skin Location: abdomen 09/08/2015 None Full Exam - General 1994 Constitutional general appearance Overall: well developed 07/09/2015 None Full Exam - General 1994 Constitutional general appearance Overall: in no acute distress 07/09/2015 None Full Exam - General 1994 Constitutional general appearance Overall: well nourished 07/09/2015 None Full Exam - General 1994 Eyes pupils and irises Overall: pupils equal, round, reactive to light and accomodation 07/09/2015 None Full Exam - General 1994 Respiratory auscultation Overall: breath sounds clear bilaterally 07/09/2015 None Full Exam - General 1994 Respiratory respiratory effort/rhythm Overall: no retractions 07/09/2015 None Full Exam - General 1994 Respiratory respiratory effort/rhythm Overall: normal rate 07/09/2015 None Full Exam - General 1994 Cardiovascular inspection of carotid pulses Overall: strong, bilaterally equal, no bruits 07/09/2015 None Full Exam - General 1994 Cardiovascular extremities Overall: no clubbing 07/09/2015 None Full Exam - General 1994 Cardiovascular auscultation of heart Rate: regular rate 07/09/2015 None Full Exam - General 1994 Cardiovascular auscultation of heart Rhythm: irregular rhythm 07/09/2015 None Full Exam - General 1994 Musculoskeletal upper extremity Palpation - shoulder: tenderness @ subacromial space 07/09/2015 None Full Exam - General 1994 Musculoskeletal upper extremity Palpation - shoulder: tenderness @ bicipital groove 07/09/2015 None Full Exam - General 1994 Musculoskeletal upper extremity ROM - shoulder: crepitus 07/09/2015 None Full Exam - General 1994 Musculoskeletal spine, ribs and pelvis Posture: lordosis 07/09/2015 None Full Exam - General 1994 Musculoskeletal head and neck Overall: head atraumatic 07/09/2015 None Full Exam - General 1994 Neurologic gait Conventional walking: ataxic rhythm 07/09/2015 None Full Exam - General 1994 Neurologic gait Conventional walking: wide-based 07/09/2015 None Full Exam - General 1994 Neurologic cranial nerves Overall: crainial nerves 2 - 12 grossly intact 07/09/2015 None Full Exam - General 1994 Psychiatric orientation/consciousness Overall: oriented to person, place and time 07/09/2015 None Full Exam - General 1994 Psychiatric mood and affect Overall: normal mood and affect 07/09/2015 None Full Exam - General 1994 Constitutional general appearance Development: well developed 07/09/2015 None Full Exam - General 1994 Constitutional general appearance Development: appears stated age 1007/09/2015 None Full Exam - General 1994 Constitutional general appearance Hygiene/Attention to Grooming: good hygiene 07/09/2015 None Full Exam - General 1994 Eyes conjunctiva /eyelids Overall: conjunctiva clear 07/09/2015 None Full Exam - General 1994 Eyes conjunctiva /eyelids Overall: cornea clear 07/09/2015 None Full Exam - General 1994 Eyes conjunctiva /eyelids Overall: eyelids normal 07/09/2015 None Full Exam - General 1994 Ears/Nose/Throat otoscopic exam Overall: external auditory canals clear 07/09/2015 None Full Exam - General 1994 Ears/Nose/Throat otoscopic exam Overall: tympanic membranes clear 07/09/2015 None Full Exam - General 1994 Ears/Nose/Throat lips/teeth/gingiva Overall: benign lips 07/09/2015 None Full Exam - General 1994 Ears/Nose/Throat lips/teeth/gingiva Overall: normal dentition 07/09/2015 None Full Exam - General 1994 Ears/Nose/Throat oral cavity/pharynx/larynx Overall: oral mucosa clear 07/09/2015 None Full Exam - General 1994 Ears/Nose/Throat oral cavity/pharynx/larynx Overall: oropharyngeal mucosa clear 07/09/2015 None Full Exam - General 1994 Ears/Nose/Throat oral cavity/pharynx/larynx Overall: hypopharynx benign 07/09/2015 None Full Exam - General 1994 Ears/Nose/Throat oral cavity/pharynx/larynx Overall: no masses 07/09/2015 None Full Exam - General 1994 Cardiovascular auscultation of heart Overall: regular rate 07/09/2015 None Full Exam - General 1994 Cardiovascular auscultation of heart Overall: normal heart sounds 07/09/2015 None Full Exam - General 1994 Abdomen abdominal exam Overall: no tenderness 07/09/2015 None Full Exam - General 1994 Abdomen abdominal exam Overall: normal bowel sounds 07/09/2015 None Full Exam - General 1994 Lymphatic neck nodes Overall: anterior cervical chain benign 07/09/2015 None Full Exam - General 1994 Lymphatic neck nodes Overall: posterior cervical chain benign 07/09/2015 None Full Exam - General 1994 Musculoskeletal spine, ribs and pelvis Overall: spine benign 07/09/2015 None Full Exam - General 1994 Musculoskeletal spine, ribs and pelvis Overall: sacroiliac joint benign 07/09/2015 None Full Exam - General 1994 Musculoskeletal spine, ribs and pelvis Overall: good posture 07/09/2015 None Full Exam - General 1994 Musculoskeletal head and neck Overall: cervical spine benign 07/09/2015 None Full Exam - General 1994 Neurologic deep tendon reflexes Overall: deep tendon reflexes intact 07/09/2015 None Full Exam - General 1994 Integument inspection of skin Rash/Lesions: patch 07/09/2015 of dry skin over lower abdomen bilaterally Full Exam - General 1994 Constitutional general appearance Overall: well developed 01/16/2015 None Full Exam - General 1994 Constitutional general appearance Overall: in no acute distress 01/16/2015 None Full Exam - General 1994 Constitutional general appearance Overall: well nourished 01/16/2015 None Full Exam - General 1994 Eyes pupils and irises Overall: pupils equal, round, reactive to light and accomodation 01/16/2015 None Full Exam - General 1994 Respiratory auscultation Overall: breath sounds clear bilaterally 01/16/2015 None Full Exam - General 1994 Respiratory respiratory effort/rhythm Overall: no retractions 01/16/2015 None Full Exam - General 1994 Respiratory respiratory effort/rhythm Overall: normal rate 01/16/2015 None Full Exam - General 1994 Cardiovascular extremities Overall: no clubbing 01/16/2015 None Full Exam - General 1994 Cardiovascular auscultation of heart Rate: regular rate 01/16/2015 None Full Exam - General 1994 Cardiovascular auscultation of heart Rhythm: irregular rhythm 01/16/2015 None Full Exam - General 1994 Musculoskeletal upper extremity Palpation - shoulder: tenderness @ subacromial space 01/16/2015 None Full Exam - General 1994 Musculoskeletal upper extremity Palpation - shoulder: tenderness @ bicipital groove 01/16/2015 None Full Exam - General 1994 Musculoskeletal upper extremity ROM - shoulder: crepitus 01/16/2015 None Full Exam - General 1994 Musculoskeletal spine, ribs and pelvis Posture: lordosis 01/16/2015 None Full Exam - General 1994 Musculoskeletal head and neck Overall: head atraumatic 01/16/2015 None Full Exam - General 1994 Neurologic gait Conventional walking: ataxic rhythm 01/16/2015 None Full Exam - General 1994 Neurologic gait Conventional walking: wide-based 01/16/2015 None Full Exam - General 1994 Neurologic cranial nerves Overall: crainial nerves 2 - 12 grossly intact 01/16/2015 None Full Exam - General 1994 Psychiatric orientation/consciousness Overall: oriented to person, place and time 01/16/2015 None Full Exam - General 1994 Psychiatric mood and affect Overall: normal mood and affect 01/16/2015 None Full Exam - General 1994 Cardiovascular inspection of carotid pulses Overall: strong, bilaterally equal, no bruits 01/16/2015 None Full Exam - General 1994 Constitutional general appearance Overall: well developed 01/03/2015 None Full Exam - General 1994 Constitutional general appearance Overall: in no acute distress 01/03/2015 None Full Exam - General 1994 Constitutional general appearance Overall: well nourished 01/03/2015 None Full Exam - General 1994 Eyes pupils and irises Overall: pupils equal, round, reactive to light and accomodation 01/03/2015 None Full Exam - General 1994 Respiratory auscultation Overall: breath sounds clear bilaterally 01/03/2015 None Full Exam - General 1994 Respiratory respiratory effort/rhythm Overall: no retractions 01/03/2015 None Full Exam - General 1994 Respiratory respiratory effort/rhythm Overall: normal rate 01/03/2015 None Full Exam - General 1994 Cardiovascular extremities Overall: no clubbing 01/03/2015 None Full Exam - General 1994 Cardiovascular auscultation of heart Rate: regular rate 01/03/2015 None Full Exam - General 1994 Cardiovascular auscultation of heart Rhythm: irregular rhythm 01/03/2015 None Full Exam - General 1994 Musculoskeletal spine, ribs and pelvis Posture: lordosis 01/03/2015 None Full Exam - General 1994 Musculoskeletal head and neck Overall: head atraumatic 01/03/2015 None Full Exam - General 1994 Neurologic gait Conventional walking: ataxic rhythm 01/03/2015 None Full Exam - General 1994 Neurologic gait Conventional walking: wide-based 01/03/2015 None Full Exam - General 1994 Neurologic cranial nerves Overall: crainial nerves 2 - 12 grossly intact 01/03/2015 None Full Exam - General 1994 Psychiatric orientation/consciousness Overall: oriented to person, place and time 01/03/2015 None Full Exam - General 1994 Psychiatric mood and affect Overall: normal mood and affect 01/03/2015 None Full Exam - General 1994 Musculoskeletal upper extremity Palpation - shoulder: tenderness @ subacromial space 01/03/2015 None Full Exam - General 1994 Musculoskeletal upper extremity Palpation - shoulder: tenderness @ bicipital groove 01/03/2015 None Full Exam - General 1994 Musculoskeletal upper extremity ROM - shoulder: crepitus 01/03/2015 None Full Exam - General 1994 Constitutional general appearance Overall: well developed 09/16/2014 None Full Exam - General 1994 Constitutional general appearance Overall: in no acute distress 09/16/2014 None Full Exam - General 1994 Constitutional general appearance Overall: well nourished 09/16/2014 None Full Exam - General 1994 Eyes pupils and irises Overall: pupils equal, round, reactive to light and accomodation 09/16/2014 None Full Exam - General 1994 Ears/Nose/Throat otoscopic exam Overall: external auditory canals clear 09/16/2014 None Full Exam - General 1994 Ears/Nose/Throat otoscopic exam Overall: tympanic membranes clear 09/16/2014 None Full Exam - General 1994 Ears/Nose/Throat internal nose Turbinates: a normal exam 09/16/2014 None Full Exam - General 1994 Ears/Nose/Throat internal nose Drainage: clear 09/16/2014 None Full Exam - General 1994 Ears/Nose/Throat internal nose Nasal cavity: a normal exam 09/16/2014 None Full Exam - General 1994 Ears/Nose/Throat internal nose Nasal cavity: mucosal exudate 09/16/2014 None Full Exam - General 1994 Ears/Nose/Throat oral cavity/pharynx/larynx Overall: oral mucosa clear 09/16/2014 None Full Exam - General 1994 Ears/Nose/Throat oral cavity/pharynx/larynx Overall: oropharyngeal mucosa clear 09/16/2014 None Full Exam - General 1994 Ears/Nose/Throat oral cavity/pharynx/larynx Overall: no masses 09/16/2014 None Full Exam - General 1994 Respiratory auscultation Overall: breath sounds clear bilaterally 09/16/2014 None Full Exam - General 1994 Respiratory respiratory effort/rhythm Overall: no retractions 09/16/2014 None Full Exam - General 1994 Respiratory respiratory effort/rhythm Overall: normal rate 09/16/2014 None Full Exam - General 1994 Cardiovascular auscultation of heart Overall: regular rate 09/16/2014 None Full Exam - General 1994 Cardiovascular auscultation of heart Overall: normal heart sounds 09/16/2014 None Full Exam - General 1994 Abdomen abdominal exam Contour: rounded 09/16/2014 None Full Exam - General 1994 Abdomen abdominal exam Bowel sounds: a normal exam 09/16/2014 None Full Exam - General 1994 Abdomen abdominal exam Upper quadrant: non-tender to palpation 09/16/2014 None Full Exam - General 1994 Abdomen abdominal exam Lower quadrant: tender to palpation 09/16/2014 None Full Exam - General 1994 Musculoskeletal spine, ribs and pelvis Posture: lordosis 09/16/2014 None Full Exam - General 1994 Musculoskeletal head and neck Overall: head atraumatic 09/16/2014 None Full Exam - General 1994 Integument inspection of skin Location: diffuse 09/16/2014 pink papular confluent Full Exam - General 1994 Integument inspection of skin Location: neck 09/16/2014 None Full Exam - General 1994 Integument inspection of skin Location: left arm 09/16/2014 None Full Exam - General 1994 Integument inspection of skin Location: right arm 09/16/2014 None Full Exam - General 1994 Integument inspection of skin Location: chest 09/16/2014 None Full Exam - General 1994 Integument inspection of skin Location: abdomen 09/16/2014 None Full Exam - General 1994 Neurologic gait Conventional walking: ataxic rhythm 09/16/2014 None Full Exam - General 1994 Neurologic gait Conventional walking: wide-based 09/16/2014 None Full Exam - General 1994 Neurologic cranial nerves Overall: crainial nerves 2 - 12 grossly intact 09/16/2014 None Full Exam - General 1994 Psychiatric orientation/consciousness Overall: oriented to person, place and time 09/16/2014 None Full Exam - General 1994 Psychiatric mood and affect Overall: normal mood and affect 09/16/2014 None Full Exam - General 1994 Musculoskeletal spine, ribs and pelvis Sacroiliac joints: tender right sacroiliac joint 09/16/2014 None Full Exam - General 1994 Constitutional general appearance Overall: well developed 08/15/2014 None Full Exam - General 1994 Constitutional general appearance Overall: in no acute distress 08/15/2014 None Full Exam - General 1994 Constitutional general appearance Overall: well nourished 08/15/2014 None Full Exam - General 1994 Eyes pupils and irises Overall: pupils equal, round, reactive to light and accomodation 08/15/2014 None Full Exam - General 1994 Ears/Nose/Throat otoscopic exam Overall: external auditory canals clear 08/15/2014 None Full Exam - General 1994 Ears/Nose/Throat otoscopic exam Overall: tympanic membranes clear 08/15/2014 None Full Exam - General 1994 Ears/Nose/Throat internal nose Turbinates: a normal exam 08/15/2014 None Full Exam - General 1994 Ears/Nose/Throat internal nose Drainage: clear 08/15/2014 None Full Exam - General 1994 Ears/Nose/Throat oral cavity/pharynx/larynx Overall: oral mucosa clear 08/15/2014 None Full Exam - General 1994 Ears/Nose/Throat oral cavity/pharynx/larynx Overall: oropharyngeal mucosa clear 08/15/2014 None Full Exam - General 1994 Ears/Nose/Throat oral cavity/pharynx/larynx Overall: no masses 08/15/2014 None Full Exam - General 1994 Respiratory auscultation Overall: breath sounds clear bilaterally 08/15/2014 None Full Exam - General 1994 Respiratory respiratory effort/rhythm Overall: no retractions 08/15/2014 None Full Exam - General 1994 Respiratory respiratory effort/rhythm Overall: normal rate 08/15/2014 None Full Exam - General 1994 Abdomen abdominal exam Contour: rounded 08/15/2014 None Full Exam - General 1994 Abdomen abdominal exam Bowel sounds: a normal exam 08/15/2014 None Full Exam - General 1994 Abdomen abdominal exam Upper quadrant: non-tender to palpation 08/15/2014 None Full Exam - General 1994 Abdomen abdominal exam Lower quadrant: tender to palpation 08/15/2014 None Full Exam - General 1994 Musculoskeletal spine, ribs and pelvis Posture: lordosis 08/15/2014 None Full Exam - General 1994 Musculoskeletal spine, ribs and pelvis Spine: tender @ cervical spine 08/15/2014 pt has multiple tender spots over the upper right neck, trapezius, suprascapular region on right and left Full Exam - General 1994 Musculoskeletal head and neck Overall: head atraumatic 08/15/2014 None Full Exam - General 1994 Neurologic gait Conventional walking: ataxic rhythm 08/15/2014 None Full Exam - General 1994 Neurologic gait Conventional walking: wide-based 08/15/2014 None Full Exam - General 1994 Neurologic cranial nerves Overall: crainial nerves 2 - 12 grossly intact 08/15/2014 None Full Exam - General 1994 Psychiatric orientation/consciousness Overall: oriented to person, place and time 08/15/2014 None Full Exam - General 1994 Psychiatric mood and affect Overall: normal mood and affect 08/15/2014 None Full Exam - General 1994 Cardiovascular auscultation of heart Rate: regular rate 08/15/2014 None Full Exam - General 1994 Cardiovascular auscultation of heart Rhythm: irregular rhythm 08/15/2014 None Full Exam - General 1994 Cardiovascular extremities Overall: no clubbing 08/15/2014 None Full Exam - General 1994 Constitutional general appearance Overall: well developed 06/12/2014 None Full Exam - General 1994 Constitutional general appearance Overall: in no acute distress 06/12/2014 None Full Exam - General 1994 Constitutional general appearance Overall: well nourished 06/12/2014 None Full Exam - General 1994 Eyes pupils and irises Overall: pupils equal, round, reactive to light and accomodation 06/12/2014 None Full Exam - General 1994 Ears/Nose/Throat otoscopic exam Overall: external auditory canals clear 06/12/2014 None Full Exam - General 1994 Ears/Nose/Throat otoscopic exam Overall: tympanic membranes clear 06/12/2014 None Full Exam - General 1994 Ears/Nose/Throat internal nose Turbinates: a normal exam 06/12/2014 None Full Exam - General 1994 Ears/Nose/Throat internal nose Drainage: clear 06/12/2014 None Full Exam - General 1994 Ears/Nose/Throat internal nose Nasal cavity: a normal exam 06/12/2014 None Full Exam - General 1994 Ears/Nose/Throat internal nose Nasal cavity: mucosal exudate 06/12/2014 None Full Exam - General 1994 Ears/Nose/Throat oral cavity/pharynx/larynx Overall: oral mucosa clear 06/12/2014 None Full Exam - General 1994 Ears/Nose/Throat oral cavity/pharynx/larynx Overall: oropharyngeal mucosa clear 06/12/2014 None Full Exam - General 1994 Ears/Nose/Throat oral cavity/pharynx/larynx Overall: no masses 06/12/2014 None Full Exam - General 1994 Respiratory auscultation Overall: breath sounds clear bilaterally 06/12/2014 None Full Exam - General 1994 Respiratory respiratory effort/rhythm Overall: no retractions 06/12/2014 None Full Exam - General 1994 Respiratory respiratory effort/rhythm Overall: normal rate 06/12/2014 None Full Exam - General 1994 Cardiovascular auscultation of heart Overall: regular rate 06/12/2014 None Full Exam - General 1994 Cardiovascular auscultation of heart Overall: normal heart sounds 06/12/2014 None Full Exam - General 1994 Abdomen abdominal exam Contour: rounded 06/12/2014 None Full Exam - General 1994 Abdomen abdominal exam Bowel sounds: a normal exam 06/12/2014 None Full Exam - General 1994 Abdomen abdominal exam Upper quadrant: non-tender to palpation 06/12/2014 None Full Exam - General 1994 Abdomen abdominal exam Lower quadrant: tender to palpation 06/12/2014 None Full Exam - General 1994 Musculoskeletal spine, ribs and pelvis Posture: lordosis 06/12/2014 None Full Exam - General 1994 Musculoskeletal spine, ribs and pelvis Spine: tender @ cervical spine 06/12/2014 pt has multiple tender spots over the upper right neck, trapezius, suprascapular region on right and left Full Exam - General 1994 Musculoskeletal head and neck Overall: head atraumatic 06/12/2014 None Full Exam - General 1994 Neurologic gait Conventional walking: ataxic rhythm 06/12/2014 None Full Exam - General 1994 Neurologic gait Conventional walking: wide-based 06/12/2014 None Full Exam - General 1994 Neurologic cranial nerves Overall: crainial nerves 2 - 12 grossly intact 06/12/2014 None Full Exam - General 1994 Psychiatric orientation/consciousness Overall: oriented to person, place and time 06/12/2014 None Full Exam - General 1994 Psychiatric mood and affect Overall: normal mood and affect 06/12/2014 None Full Exam - General 1994 Integument inspection of skin Location: left arm 06/12/2014 None Full Exam - General 1994 Integument inspection of skin Location: right arm 06/12/2014 None Full Exam - General 1994 Integument inspection of skin Location: chest 06/12/2014 None Full Exam - General 1994 Integument inspection of skin Location: abdomen 06/12/2014 None Full Exam - General 1994 Integument inspection of skin Location: neck 06/12/2014 None Full Exam - General 1994 Integument inspection of skin Location: diffuse 06/12/2014 pink papular confluent Full Exam - General 1994 Constitutional general appearance Overall: well developed 03/20/2014 None Full Exam - General 1994 Constitutional general appearance Overall: in no acute distress 03/20/2014 None Full Exam - General 1994 Constitutional general appearance Overall: well nourished 03/20/2014 None Full Exam - General 1994 Eyes pupils and irises Overall: pupils equal, round, reactive to light and accomodation 03/20/2014 None Full Exam - General 1994 Ears/Nose/Throat otoscopic exam Overall: external auditory canals clear 03/20/2014 None Full Exam - General 1994 Ears/Nose/Throat otoscopic exam Overall: tympanic membranes clear 03/20/2014 None Full Exam - General 1994 Ears/Nose/Throat internal nose Turbinates: a normal exam 03/20/2014 None Full Exam - General 1994 Ears/Nose/Throat internal nose Drainage: clear 03/20/2014 None Full Exam - General 1994 Ears/Nose/Throat internal nose Nasal cavity: a normal exam 03/20/2014 None Full Exam - General 1994 Ears/Nose/Throat internal nose Nasal cavity: mucosal exudate 03/20/2014 None Full Exam - General 1994 Ears/Nose/Throat oral cavity/pharynx/larynx Overall: oral mucosa clear 03/20/2014 None Full Exam - General 1994 Ears/Nose/Throat oral cavity/pharynx/larynx Overall: oropharyngeal mucosa clear 03/20/2014 None Full Exam - General 1994 Ears/Nose/Throat oral cavity/pharynx/larynx Overall: no masses 03/20/2014 None Full Exam - General 1994 Respiratory auscultation Overall: breath sounds clear bilaterally 03/20/2014 None Full Exam - General 1994 Respiratory respiratory effort/rhythm Overall: no retractions 03/20/2014 None Full Exam - General 1994 Respiratory respiratory effort/rhythm Overall: normal rate 03/20/2014 None Full Exam - General 1994 Cardiovascular auscultation of heart Overall: regular rate 03/20/2014 None Full Exam - General 1994 Cardiovascular auscultation of heart Overall: normal heart sounds 03/20/2014 None Full Exam - General 1994 Abdomen abdominal exam Contour: rounded 03/20/2014 None Full Exam - General 1994 Abdomen abdominal exam Bowel sounds: a normal exam 03/20/2014 None Full Exam - General 1994 Abdomen abdominal exam Upper quadrant: non-tender to palpation 03/20/2014 None Full Exam - General 1994 Abdomen abdominal exam Lower quadrant: tender to palpation 03/20/2014 None Full Exam - General 1994 Musculoskeletal spine, ribs and pelvis Posture: lordosis 03/20/2014 None Full Exam - General 1994 Musculoskeletal spine, ribs and pelvis Spine: tender @ cervical spine 03/20/2014 pt has multiple tender spots over the upper right neck, trapezius, suprascapular region on right and left Full Exam - General 1994 Musculoskeletal head and neck Overall: head atraumatic 03/20/2014 None Full Exam - General 1994 Neurologic gait Conventional walking: ataxic rhythm 03/20/2014 None Full Exam - General 1994 Neurologic gait Conventional walking: wide-based 03/20/2014 None Full Exam - General 1994 Neurologic cranial nerves Overall: crainial nerves 2 - 12 grossly intact 03/20/2014 None Full Exam - General 1994 Psychiatric orientation/consciousness Overall: oriented to person, place and time 03/20/2014 None Full Exam - General 1994 Psychiatric mood and affect Overall: normal mood and affect 03/20/2014 None Full Exam - General 1994 Musculoskeletal spine, ribs and pelvis Sacroiliac joints: tender right sacroiliac joint 03/20/2014 None Full Exam - General 1994 Constitutional general appearance Overall: well developed 12/10/2013 None Full Exam - General 1994 Constitutional general appearance Overall: in no acute distress 12/10/2013 None Full Exam - General 1994 Constitutional general appearance Overall: well nourished 12/10/2013 None Full Exam - General 1994 Eyes pupils and irises Overall: pupils equal, round, reactive to light and accomodation 12/10/2013 None Full Exam - General 1994 Ears/Nose/Throat otoscopic exam Overall: external auditory canals clear 12/10/2013 None Full Exam - General 1994 Ears/Nose/Throat otoscopic exam Overall: tympanic membranes clear 12/10/2013 None Full Exam - General 1994 Ears/Nose/Throat internal nose Turbinates: a normal exam 12/10/2013 None Full Exam - General 1994 Ears/Nose/Throat internal nose Drainage: clear 12/10/2013 None Full Exam - General 1994 Ears/Nose/Throat internal nose Nasal cavity: a normal exam 12/10/2013 None Full Exam - General 1994 Ears/Nose/Throat internal nose Nasal cavity: mucosal exudate 12/10/2013 None Full Exam - General 1994 Ears/Nose/Throat oral cavity/pharynx/larynx Overall: oral mucosa clear 12/10/2013 None Full Exam - General 1994 Ears/Nose/Throat oral cavity/pharynx/larynx Overall: oropharyngeal mucosa clear 12/10/2013 None Full Exam - General 1994 Ears/Nose/Throat oral cavity/pharynx/larynx Overall: no masses 12/10/2013 None Full Exam - General 1994 Respiratory auscultation Overall: breath sounds clear bilaterally 12/10/2013 None Full Exam - General 1994 Respiratory respiratory effort/rhythm Overall: no retractions 12/10/2013 None Full Exam - General 1994 Respiratory respiratory effort/rhythm Overall: normal rate 12/10/2013 None Full Exam - General 1994 Cardiovascular auscultation of heart Overall: regular rate 12/10/2013 None Full Exam - General 1994 Cardiovascular auscultation of heart Overall: normal heart sounds 12/10/2013 None Full Exam - General 1994 Abdomen abdominal exam Contour: rounded 12/10/2013 None Full Exam - General 1994 Abdomen abdominal exam Bowel sounds: a normal exam 12/10/2013 None Full Exam - General 1994 Abdomen abdominal exam Upper quadrant: non-tender to palpation 12/10/2013 None Full Exam - General 1994 Abdomen abdominal exam Lower quadrant: tender to palpation 12/10/2013 None Full Exam - General 1994 Musculoskeletal spine, ribs and pelvis Posture: lordosis 12/10/2013 None Full Exam - General 1994 Musculoskeletal spine, ribs and pelvis Spine: tender @ cervical spine 12/10/2013 pt has multiple tender spots over the upper right neck, trapezius, suprascapular region on right and left Full Exam - General 1994 Musculoskeletal head and neck Overall: head atraumatic 12/10/2013 None Full Exam - General 1994 Neurologic gait Conventional walking: ataxic rhythm 12/10/2013 None Full Exam - General 1994 Neurologic gait Conventional walking: wide-based 12/10/2013 None Full Exam - General 1994 Neurologic cranial nerves Overall: crainial nerves 2 - 12 grossly intact 12/10/2013 None Full Exam - General 1994 Psychiatric orientation/consciousness Overall: oriented to person, place and time 12/10/2013 None Full Exam - General 1994 Psychiatric mood and affect Overall: normal mood and affect 12/10/2013 None Full Exam - General 1994 Constitutional general appearance Overall: well developed 09/17/2013 None Full Exam - General 1994 Constitutional general appearance Overall: in no acute distress 09/17/2013 None Full Exam - General 1994 Constitutional general appearance Overall: well nourished 09/17/2013 None Full Exam - General 1994 Eyes pupils and irises Overall: pupils equal, round, reactive to light and accomodation 09/17/2013 None Full Exam - General 1994 Ears/Nose/Throat otoscopic exam Overall: external auditory canals clear 09/17/2013 None Full Exam - General 1994 Ears/Nose/Throat otoscopic exam Overall: tympanic membranes clear 09/17/2013 None Full Exam - General 1994 Abdomen abdominal exam Bowel sounds: a normal exam 09/17/2013 None Full Exam - General 1994 Abdomen abdominal exam Upper quadrant: non-tender to palpation 09/17/2013 None Full Exam - General 1994 Abdomen abdominal exam Lower quadrant: tender to palpation 09/17/2013 None Full Exam - General 1994 Musculoskeletal spine, ribs and pelvis Posture: lordosis 09/17/2013 None Full Exam - General 1994 Musculoskeletal spine, ribs and pelvis Spine: tender @ cervical spine 09/17/2013 pt has multiple tender spots over the upper right neck, trapezius, suprascapular region on right and left Full Exam - General 1994 Musculoskeletal head and neck Overall: head atraumatic 09/17/2013 None Full Exam - General 1994 Neurologic gait Conventional walking: ataxic rhythm 09/17/2013 None Full Exam - General 1994 Neurologic gait Conventional walking: wide-based 09/17/2013 None Full Exam - General 1994 Neurologic cranial nerves Overall: crainial nerves 2 - 12 grossly intact 09/17/2013 None Full Exam - General 1994 Psychiatric orientation/consciousness Overall: oriented to person, place and time 09/17/2013 None Full Exam - General 1994 Psychiatric mood and affect Overall: normal mood and affect 09/17/2013 None Full Exam - General 1994 Ears/Nose/Throat internal nose Turbinates: a normal exam 09/17/2013 None Full Exam - General 1994 Ears/Nose/Throat internal nose Drainage: clear 09/17/2013 None Full Exam - General 1994 Ears/Nose/Throat internal nose Nasal cavity: a normal exam 09/17/2013 None Full Exam - General 1994 Ears/Nose/Throat internal nose Nasal cavity: mucosal exudate 09/17/2013 None Full Exam - General 1994 Ears/Nose/Throat oral cavity/pharynx/larynx Overall: oral mucosa clear 09/17/2013 None Full Exam - General 1994 Ears/Nose/Throat oral cavity/pharynx/larynx Overall: oropharyngeal mucosa clear 09/17/2013 None Full Exam - General 1994 Ears/Nose/Throat oral cavity/pharynx/larynx Overall: no masses 09/17/2013 None Full Exam - General 1994 Respiratory auscultation Overall: breath sounds clear bilaterally 09/17/2013 None Full Exam - General 1994 Respiratory respiratory effort/rhythm Overall: no retractions 09/17/2013 None Full Exam - General 1994 Respiratory respiratory effort/rhythm Overall: normal rate 09/17/2013 None Full Exam - General 1994 Cardiovascular auscultation of heart Overall: regular rate 09/17/2013 None Full Exam - General 1994 Cardiovascular auscultation of heart Overall: normal heart sounds 09/17/2013 None Full Exam - General 1994 Abdomen abdominal exam Contour: rounded 09/17/2013 None Full Exam - General 1994 Constitutional general appearance Overall: well developed 05/21/2013 None Full Exam - General 1994 Constitutional general appearance Overall: in no acute distress 05/21/2013 None Full Exam - General 1994 Constitutional general appearance Overall: well nourished 05/21/2013 None Full Exam - General 1994 Eyes pupils and irises Overall: pupils equal, round, reactive to light and accomodation 05/21/2013 None Full Exam - General 1994 Ears/Nose/Throat otoscopic exam Overall: external auditory canals clear 05/21/2013 None Full Exam - General 1994 Ears/Nose/Throat otoscopic exam Overall: tympanic membranes clear 05/21/2013 None Full Exam - General 1994 Ears/Nose/Throat internal nose Turbinates: a normal exam 05/21/2013 None Full Exam - General 1994 Ears/Nose/Throat internal nose Drainage: clear 05/21/2013 None Full Exam - General 1994 Ears/Nose/Throat internal nose Nasal cavity: a normal exam 05/21/2013 None Full Exam - General 1994 Ears/Nose/Throat internal nose Nasal cavity: mucosal exudate 05/21/2013 None Full Exam - General 1994 Ears/Nose/Throat oral cavity/pharynx/larynx Overall: oral mucosa clear 05/21/2013 None Full Exam - General 1994 Ears/Nose/Throat oral cavity/pharynx/larynx Overall: oropharyngeal mucosa clear 05/21/2013 None Full Exam - General 1994 Ears/Nose/Throat oral cavity/pharynx/larynx Overall: no masses 05/21/2013 None Full Exam - General 1994 Neck inspection of neck Overall: normal size 05/21/2013 None Full Exam - General 1994 Neck inspection of neck Overall: normal appearance 05/21/2013 None Full Exam - General 1994 Respiratory auscultation Overall: breath sounds clear bilaterally 05/21/2013 None Full Exam - General 1994 Respiratory respiratory effort/rhythm Overall: no retractions 05/21/2013 None Full Exam - General 1994 Respiratory respiratory effort/rhythm Overall: normal rate 05/21/2013 None Full Exam - General 1994 Cardiovascular auscultation of heart Overall: regular rate 05/21/2013 None Full Exam - General 1994 Cardiovascular auscultation of heart Overall: normal heart sounds 05/21/2013 None Full Exam - General 1994 Abdomen abdominal exam Contour: rounded 05/21/2013 None Full Exam - General 1994 Abdomen abdominal exam Bowel sounds: a normal exam 05/21/2013 None Full Exam - General 1994 Abdomen abdominal exam Upper quadrant: non-tender to palpation 05/21/2013 None Full Exam - General 1994 Abdomen abdominal exam Lower quadrant: tender to palpation 05/21/2013 None Full Exam - General 1994 Musculoskeletal spine, ribs and pelvis Posture: lordosis 05/21/2013 None Full Exam - General 1994 Musculoskeletal spine, ribs and pelvis Spine: tender @ cervical spine 05/21/2013 pt has multiple tender spots over the upper right neck, trapezius, suprascapular region on right and left Full Exam - General 1994 Musculoskeletal head and neck Overall: head atraumatic 05/21/2013 None Full Exam - General 1994 Neurologic gait Conventional walking: ataxic rhythm 05/21/2013 None Full Exam - General 1994 Neurologic gait Conventional walking: wide-based 05/21/2013 None Full Exam - General 1994 Neurologic cranial nerves Overall: crainial nerves 2 - 12 grossly intact 05/21/2013 None Full Exam - General 1994 Psychiatric orientation/consciousness Overall: oriented to person, place and time 05/21/2013 None Full Exam - General 1994 Psychiatric mood and affect Overall: normal mood and affect 05/21/2013 None Full Exam - General 1994 Constitutional general appearance Overall: well developed 01/17/2013 None Full Exam - General 1994 Constitutional general appearance Overall: in no acute distress 01/17/2013 None Full Exam - General 1994 Constitutional general appearance Overall: well nourished 01/17/2013 None Full Exam - General 1994 Eyes pupils and irises Overall: pupils equal, round, reactive to light and accomodation 01/17/2013 None Full Exam - General 1994 Ears/Nose/Throat otoscopic exam Overall: external auditory canals clear 01/17/2013 None Full Exam - General 1994 Ears/Nose/Throat otoscopic exam Overall: tympanic membranes clear 01/17/2013 None Full Exam - General 1994 Ears/Nose/Throat oral cavity/pharynx/larynx Overall: oral mucosa clear 01/17/2013 None Full Exam - General 1994 Ears/Nose/Throat oral cavity/pharynx/larynx Overall: oropharyngeal mucosa clear 01/17/2013 None Full Exam - General 1994 Ears/Nose/Throat oral cavity/pharynx/larynx Overall: no masses 01/17/2013 None Full Exam - General 1994 Neck inspection of neck Overall: normal size 01/17/2013 None Full Exam - General 1994 Neck inspection of neck Overall: normal appearance 01/17/2013 None Full Exam - General 1994 Respiratory auscultation Overall: breath sounds clear bilaterally 01/17/2013 None Full Exam - General 1994 Respiratory respiratory effort/rhythm Overall: no retractions 01/17/2013 None Full Exam - General 1994 Respiratory respiratory effort/rhythm Overall: normal rate 01/17/2013 None Full Exam - General 1994 Cardiovascular auscultation of heart Overall: regular rate 01/17/2013 None Full Exam - General 1994 Cardiovascular auscultation of heart Overall: normal heart sounds 01/17/2013 None Full Exam - General 1994 Abdomen abdominal exam Contour: rounded 01/17/2013 None Full Exam - General 1994 Abdomen abdominal exam Bowel sounds: a normal exam 01/17/2013 None Full Exam - General 1994 Abdomen abdominal exam Upper quadrant: non-tender to palpation 01/17/2013 None Full Exam - General 1994 Abdomen abdominal exam Lower quadrant: tender to palpation 01/17/2013 None Full Exam - General 1994 Musculoskeletal spine, ribs and pelvis Posture: lordosis 01/17/2013 None Full Exam - General 1994 Musculoskeletal spine, ribs and pelvis Spine: tender @ cervical spine 01/17/2013 pt has multiple tender spots over the upper right neck, trapezius, suprascapular region on right and left Full Exam - General 1994 Musculoskeletal head and neck Overall: head atraumatic 01/17/2013 None Full Exam - General 1994 Neurologic gait Conventional walking: ataxic rhythm 01/17/2013 None Full Exam - General 1994 Neurologic gait Conventional walking: wide-based 01/17/2013 None Full Exam - General 1994 Neurologic cranial nerves Overall: crainial nerves 2 - 12 grossly intact 01/17/2013 None Full Exam - General 1994 Psychiatric orientation/consciousness Overall: oriented to person, place and time 01/17/2013 None Full Exam - General 1994 Psychiatric mood and affect Overall: normal mood and affect 01/17/2013 None Full Exam - General 1994 Neck inspection of neck Overall: normal size 09/20/2012 None Full Exam - General 1994 Neck inspection of neck Overall: normal appearance 09/20/2012 None Full Exam - General 1994 Respiratory auscultation Overall: breath sounds clear bilaterally 09/20/2012 None Full Exam - General 1994 Respiratory respiratory effort/rhythm Overall: no retractions 09/20/2012 None Full Exam - General 1994 Respiratory respiratory effort/rhythm Overall: normal rate 09/20/2012 None Full Exam - General 1994 Cardiovascular auscultation of heart Overall: regular rate 09/20/2012 None Full Exam - General 1994 Cardiovascular auscultation of heart Overall: normal heart sounds 09/20/2012 None Full Exam - General 1994 Abdomen abdominal exam Contour: rounded 09/20/2012 None Full Exam - General 1994 Abdomen abdominal exam Bowel sounds: a normal exam 09/20/2012 None Full Exam - General 1994 Abdomen abdominal exam Upper quadrant: non-tender to palpation 09/20/2012 None Full Exam - General 1994 Abdomen abdominal exam Lower quadrant: tender to palpation 09/20/2012 None Full Exam - General 1994 Musculoskeletal spine, ribs and pelvis Posture: lordosis 09/20/2012 None Full Exam - General 1994 Musculoskeletal spine, ribs and pelvis Spine: tender @ cervical spine 09/20/2012 pt has multiple tender spots over the upper right neck, trapezius, suprascapular region on right and left Full Exam - General 1994 Musculoskeletal head and neck Overall: head atraumatic 09/20/2012 None Full Exam - General 1994 Constitutional general appearance Overall: well developed 09/20/2012 None Full Exam - General 1994 Constitutional general appearance Overall: in no acute distress 09/20/2012 None Full Exam - General 1994 Constitutional general appearance Overall: well nourished 09/20/2012 None Full Exam - General 1994 Eyes pupils and irises Overall: pupils equal, round, reactive to light and accomodation 09/20/2012 None Full Exam - General 1994 Ears/Nose/Throat otoscopic exam Overall: external auditory canals clear 09/20/2012 None Full Exam - General 1994 Ears/Nose/Throat otoscopic exam Overall: tympanic membranes clear 09/20/2012 None Full Exam - General 1994 Ears/Nose/Throat oral cavity/pharynx/larynx Overall: oral mucosa clear 09/20/2012 None Full Exam - General 1994 Ears/Nose/Throat oral cavity/pharynx/larynx Overall: oropharyngeal mucosa clear 09/20/2012 None Full Exam - General 1994 Ears/Nose/Throat oral cavity/pharynx/larynx Overall: no masses 09/20/2012 None Full Exam - General 1994 Neurologic gait Conventional walking: ataxic rhythm 09/20/2012 None Full Exam - General 1994 Neurologic gait Conventional walking: wide-based 09/20/2012 None Full Exam - General 1994 Neurologic cranial nerves Overall: crainial nerves 2 - 12 grossly intact 09/20/2012 None Full Exam - General 1994 Psychiatric orientation/consciousness Overall: oriented to person, place and time 09/20/2012 None Full Exam - General 1994 Psychiatric mood and affect Overall: normal mood and affect 09/20/2012 None Full Exam - General 1994 Ears/Nose/Throat internal nose Turbinates: a normal exam 09/20/2012 None Full Exam - General 1994 Ears/Nose/Throat internal nose Drainage: clear 09/20/2012 None Full Exam - General 1994 Ears/Nose/Throat internal nose Nasal cavity: mucosal exudate 09/20/2012 None Full Exam - General 1994 Ears/Nose/Throat internal nose Nasal cavity: a normal exam 09/20/2012 None Full Exam - General 1994 Constitutional general appearance Overall: well developed 06/08/2012 None Full Exam - General 1994 Constitutional general appearance Overall: in no acute distress 06/08/2012 None Full Exam - General 1994 Constitutional general appearance Overall: well nourished 06/08/2012 None Full Exam - General 1994 Eyes pupils and irises Overall: pupils equal, round, reactive to light and accomodation 06/08/2012 None Full Exam - General 1994 Neck inspection of neck Overall: normal size 06/08/2012 None Full Exam - General 1994 Neck inspection of neck Overall: normal appearance 06/08/2012 None Full Exam - General 1994 Respiratory auscultation Overall: breath sounds clear bilaterally 06/08/2012 None Full Exam - General 1994 Respiratory respiratory effort/rhythm Overall: no retractions 06/08/2012 None Full Exam - General 1994 Respiratory respiratory effort/rhythm Overall: normal rate 06/08/2012 None Full Exam - General 1994 Cardiovascular auscultation of heart Overall: regular rate 06/08/2012 None Full Exam - General 1994 Cardiovascular auscultation of heart Overall: normal heart sounds 06/08/2012 None Full Exam - General 1994 Abdomen abdominal exam Contour: rounded 06/08/2012 None Full Exam - General 1994 Abdomen abdominal exam Bowel sounds: a normal exam 06/08/2012 None Full Exam - General 1994 Abdomen abdominal exam Upper quadrant: non-tender to palpation 06/08/2012 None Full Exam - General 1994 Abdomen abdominal exam Lower quadrant: tender to palpation 06/08/2012 None Full Exam - General 1994 Musculoskeletal spine, ribs and pelvis Posture: lordosis 06/08/2012 None Full Exam - General 1994 Musculoskeletal spine, ribs and pelvis Spine: tender @ cervical spine 06/08/2012 pt has multiple tender spots over the upper right neck, trapezius, suprascapular region on right and left Full Exam - General 1994 Musculoskeletal head and neck Overall: head atraumatic 06/08/2012 None Full Exam - General 1994 Neurologic gait Conventional walking: ataxic rhythm 06/08/2012 None Full Exam - General 1994 Neurologic gait Conventional walking: wide-based 06/08/2012 None Full Exam - General 1994 Neurologic cranial nerves Overall: crainial nerves 2 - 12 grossly intact 06/08/2012 None Full Exam - General 1994 Psychiatric orientation/consciousness Overall: oriented to person, place and time 06/08/2012 None Full Exam - General 1994 Psychiatric mood and affect Overall: normal mood and affect 06/08/2012 None Full Exam - General 1994 Ears/Nose/Throat oral cavity/pharynx/larynx Overall: oropharyngeal mucosa clear 06/08/2012 None Full Exam - General 1994 Ears/Nose/Throat oral cavity/pharynx/larynx Overall: no masses 06/08/2012 None Full Exam - General 1994 Ears/Nose/Throat oral cavity/pharynx/larynx Overall: oral mucosa clear 06/08/2012 None Full Exam - General 1994 Ears/Nose/Throat otoscopic exam Overall: tympanic membranes clear 06/08/2012 None Full Exam - General 1994 Ears/Nose/Throat otoscopic exam Overall: external auditory canals clear 06/08/2012 None Full Exam - General 1994 Musculoskeletal spine, ribs and pelvis Posture: lordosis 04/10/2012 None Full Exam - General 1994 Musculoskeletal spine, ribs and pelvis Spine: tender @ cervical spine 04/10/2012 pt has multiple tender spots over the upper right neck, trapezius, suprascapular region on right and left Full Exam - General 1994 Constitutional general appearance Overall: well nourished 04/10/2012 None Full Exam - General 1995 Constitutional general appearance Overall: well developed 04/10/2012 None Full Exam - General 1994 Constitutional general appearance Overall: in no acute distress 04/10/2012 None Full Exam - General 1995 Respiratory auscultation Overall: breath sounds clear bilaterally 04/10/2012 None Full Exam - General 1995 Respiratory respiratory effort/rhythm Overall: no retractions 04/10/2012 None Full Exam - General 1995 Respiratory respiratory effort/rhythm Overall: normal rate 04/10/2012 None Full Exam - General 1995 Cardiovascular auscultation of heart Overall: regular rate 04/10/2012 None Full Exam - General 1994 Cardiovascular auscultation of heart Overall: normal heart sounds 04/10/2012 None Full Exam - General 1994 Abdomen abdominal exam Contour: rounded 04/10/2012 None Full Exam - General 1994 Abdomen abdominal exam Bowel sounds: a normal exam 04/10/2012 None Full Exam - General 1994 Musculoskeletal head and neck Overall: head atraumatic 04/10/2012 None Full Exam - General 1994 Neurologic gait Conventional walking: ataxic rhythm 04/10/2012 None Full Exam - General 1994 Neurologic gait Conventional walking: wide-based 04/10/2012 None Full Exam - General 1994 Psychiatric orientation/consciousness Overall: oriented to person, place and time 04/10/2012 None Full Exam - General 1994 Psychiatric mood and affect Overall: normal mood and affect 04/10/2012 None Full Exam - General 1994 Neurologic cranial nerves Overall: crainial nerves 2 - 12 grossly intact 04/10/2012 None Full Exam - General 1994 Neck inspection of neck Overall: normal size 04/10/2012 None Full Exam - General 1994 Neck inspection of neck Overall: normal appearance 04/10/2012 None Full Exam - General 1994 Eyes pupils and irises Overall: pupils equal, round, reactive to light and accomodation 04/10/2012 None Full Exam - General 1994 Abdomen abdominal exam Upper quadrant: non-tender to palpation 04/10/2012 None Full Exam - General 1994 Abdomen abdominal exam Lower quadrant: tender to palpation 04/10/2012 None Full Exam - General 1994 Constitutional general appearance Overall: well nourished 03/16/2012 None Full Exam - General 1994 Constitutional general appearance Overall: well developed 03/16/2012 None Full Exam - General 1994 Constitutional general appearance Overall: in no acute distress 03/16/2012 None Full Exam - General 1994 Respiratory auscultation Overall: breath sounds clear bilaterally 03/16/2012 None Full Exam - General 1994 Respiratory respiratory effort/rhythm Overall: no retractions 03/16/2012 None Full Exam - General 1994 Respiratory respiratory effort/rhythm Overall: normal rate 03/16/2012 None Full Exam - General 1994 Cardiovascular auscultation of heart Overall: regular rate 03/16/2012 None Full Exam - General 1994 Cardiovascular auscultation of heart Overall: normal heart sounds 03/16/2012 None Full Exam - General 1994 Abdomen abdominal exam Contour: rounded 03/16/2012 None Full Exam - General 1994 Abdomen abdominal exam Bowel sounds: a normal exam 03/16/2012 None Full Exam - General 1994 Abdomen abdominal exam Percussion: a normal exam 03/16/2012 None Full Exam - General 1994 Musculoskeletal head and neck Overall: head atraumatic 03/16/2012 None Full Exam - General 1994 Neurologic gait Conventional walking: ataxic rhythm 03/16/2012 None Full Exam - General 1994 Neurologic gait Conventional walking: wide-based 03/16/2012 None Full Exam - General 1994 Psychiatric orientation/consciousness Overall: oriented to person, place and time 03/16/2012 None Full Exam - General 1994 Psychiatric mood and affect Overall: normal mood and affect 03/16/2012 None Full Exam - General 1994 Musculoskeletal spine, ribs and pelvis Posture: lordosis 03/16/2012 None Full Exam - General 1994 Musculoskeletal spine, ribs and pelvis Spine: tender @ cervical spine 03/16/2012 pt has multiple tender spots over the upper right neck, trapezius, suprascapular region on right and left Full Exam - General 1994 Constitutional general appearance Overall: well developed 02/03/2012 None Full Exam - General 1994 Constitutional general appearance Overall: in no acute distress 02/03/2012 None Full Exam - General 1994 Constitutional general appearance Overall: well nourished 02/03/2012 None Full Exam - General 1994 Constitutional general appearance Nourishment: obese 02/03/2012 None Full Exam - General 1994 Constitutional general appearance Hygiene/Attention to Grooming: normal grooming 02/03/2012 None Full Exam - General 1994 Constitutional general appearance Assistive Device: walker 02/03/2012 and brace to left leg Full Exam - General 1994 Ears/Nose/Throat external ear Overall: normal appearance 02/03/2012 None Full Exam - General 1994 Ears/Nose/Throat external ear Overall: no masses 02/03/2012 None Full Exam - General 1995 Ears/Nose/Throat external ear Overall: normal mastoids 02/03/2012 None Full Exam - General 1995 Ears/Nose/Throat external nose Overall: benign appearance 02/03/2012 None Full Exam - General 1995 Ears/Nose/Throat external nose Overall: no masses 02/03/2012 None Full Exam - General 1995 Ears/Nose/Throat external nose Overall: non-tender 02/03/2012 None Full Exam - General 1995 Ears/Nose/Throat otoscopic exam External auditory canal: minimal cerumen 02/03/2012 None Full Exam - General 1995 Ears/Nose/Throat otoscopic exam Tympanic membrane: a normal exam 02/03/2012 None Full Exam - General 1995 Ears/Nose/Throat lips/teeth/gingiva Overall: benign lips 02/03/2012 None Full Exam - General 1995 Ears/Nose/Throat lips/teeth/gingiva Overall: normal dentition 02/03/2012 None Full Exam - General 1995 Ears/Nose/Throat lips/teeth/gingiva Overall: benign gingiva 02/03/2012 None Full Exam - General 1995 Ears/Nose/Throat lips/teeth/gingiva Overall: no masses 02/03/2012 None Full Exam - General 1994 Neck inspection of neck Overall: normal size 02/03/2012 None Full Exam - General 1994 Neck inspection of neck Overall: normal appearance 02/03/2012 None Full Exam - General 1994 Neck inspection of neck Overall: no masses 02/03/2012 None Full Exam - General 1994 Neck inspection of neck Overall: absence of swelling 02/03/2012 None Full Exam - General 1994 Neck inspection of neck Overall: normal tracheal position 02/03/2012 None Full Exam - General 1994 Respiratory auscultation Overall: breath sounds clear bilaterally 02/03/2012 None Full Exam - General 1994 Respiratory respiratory effort/rhythm Overall: no retractions 02/03/2012 None Full Exam - General 1994 Respiratory respiratory effort/rhythm Overall: normal rate 02/03/2012 None Full Exam - General 1994 Cardiovascular auscultation of heart Overall: regular rate 02/03/2012 None Full Exam - General 1994 Cardiovascular auscultation of heart Overall: normal heart sounds 02/03/2012 None Full Exam - General 1994 Cardiovascular inspection of pedal pulses Overall: strong , equal bilaterally 02/03/2012 None Full Exam - General 1994 Abdomen abdominal exam Overall: no tenderness 02/03/2012 None Full Exam - General 1994 Abdomen abdominal exam Overall: normal bowel sounds 02/03/2012 None Full Exam - General 1995 Musculoskeletal lower extremity Inspection - lower leg: normal appearance 02/03/2012 None Full Exam - General 1995 Musculoskeletal lower extremity Inspection - lower leg: deformity 02/03/2012 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, wears brace Full Exam - General 1994 Musculoskeletal gait and station Gait: asymmetric 02/03/2012 None Full Exam - General 1994 Integument inspection of skin Dermatitis: scaling 02/03/2012 psoriasis flares Full Exam - General 1994 Psychiatric orientation/consciousness Overall: oriented to person, place and time 02/03/2012 None Full Exam - General 1994 Eyes pupils and irises Overall: pupils equal, round, reactive to light and accomodation 02/03/2012 None Full Exam - General 1994 Neurologic gait Conventional walking: wide-based 02/03/2012 None Full Exam - General 1994 Constitutional general appearance Overall: well nourished 11/04/2011 None Full Exam - General 1994 Constitutional general appearance Overall: well developed 11/04/2011 None Full Exam - General 1994 Constitutional general appearance Overall: in no acute distress 11/04/2011 None Full Exam - General 1994 Constitutional general appearance Nourishment: obese 11/04/2011 None Full Exam - General 1994 Constitutional general appearance Hygiene/Attention to Grooming: normal grooming 11/04/2011 None Full Exam - General 1994 Constitutional general appearance Assistive Device: walker 11/04/2011 and brace to left leg Full Exam - General 1994 Ears/Nose/Throat external ear Overall: no masses 11/04/2011 None Full Exam - General 1994 Ears/Nose/Throat external ear Overall: normal appearance 11/04/2011 None Full Exam - General 1995 Ears/Nose/Throat external ear Overall: normal mastoids 11/04/2011 None Full Exam - General 1995 Ears/Nose/Throat external nose Overall: benign appearance 11/04/2011 None Full Exam - General 1994 Ears/Nose/Throat external nose Overall: non-tender 11/04/2011 None Full Exam - General 1995 Ears/Nose/Throat external nose Overall: no masses 11/04/2011 None Full Exam - General 1995 Ears/Nose/Throat otoscopic exam Tympanic membrane: a normal exam 11/04/2011 None Full Exam - General 1995 Ears/Nose/Throat otoscopic exam External auditory canal: minimal cerumen 11/04/2011 None Full Exam - General 1995 Ears/Nose/Throat lips/teeth/gingiva Overall: benign lips 11/04/2011 None Full Exam - General 1995 Ears/Nose/Throat lips/teeth/gingiva Overall: normal dentition 11/04/2011 None Full Exam - General 1995 Ears/Nose/Throat lips/teeth/gingiva Overall: benign gingiva 11/04/2011 None Full Exam - General 1995 Ears/Nose/Throat lips/teeth/gingiva Overall: no masses 11/04/2011 None Full Exam - General 1995 Neck inspection of neck Overall: normal appearance 11/04/2011 None Full Exam - General 1995 Neck inspection of neck Overall: normal tracheal position 11/04/2011 None Full Exam - General 1995 Neck inspection of neck Overall: absence of swelling 11/04/2011 None Full Exam - General 1995 Neck inspection of neck Overall: no masses 11/04/2011 None Full Exam - General 1995 Neck inspection of neck Overall: normal size 11/04/2011 None Full Exam - General 1994 Respiratory auscultation Overall: breath sounds clear bilaterally 11/04/2011 None Full Exam - General 1994 Respiratory respiratory effort/rhythm Overall: no retractions 11/04/2011 None Full Exam - General 1995 Respiratory respiratory effort/rhythm Overall: normal rate 11/04/2011 None Full Exam - General 1994 Cardiovascular auscultation of heart Overall: regular rate 11/04/2011 None Full Exam - General 1994 Cardiovascular auscultation of heart Overall: normal heart sounds 11/04/2011 None Full Exam - General 1994 Cardiovascular inspection of pedal pulses Overall: strong , equal bilaterally 11/04/2011 None Full Exam - General 1994 Abdomen abdominal exam Overall: no tenderness 11/04/2011 None Full Exam - General 1994 Abdomen abdominal exam Overall: normal bowel sounds 11/04/2011 None Full Exam - General 1994 Musculoskeletal lower extremity Inspection - lower leg: normal appearance 11/04/2011 None Full Exam - General 1994 Musculoskeletal lower extremity Inspection - lower leg: deformity 11/04/2011 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, wears brace Full Exam - General 1994 Musculoskeletal gait and station Gait: asymmetric 11/04/2011 None Full Exam - General 1994 Integument inspection of skin Dermatitis: scaling 11/04/2011 psoriasis flares Full Exam - General 1994 Psychiatric orientation/consciousness Overall: oriented to person, place and time 11/04/2011 None Full Exam - General 1994 Musculoskeletal head and neck Overall: cervical spine benign 07/13/2011 None Full Exam - General 1994 Musculoskeletal head and neck Overall: head atraumatic 07/13/2011 None Full Exam - General 1994 Abdomen abdominal exam Contour: rounded 07/13/2011 None Full Exam - General 1994 Abdomen abdominal exam Bowel sounds: a normal exam 07/13/2011 None Full Exam - General 1994 Abdomen abdominal exam Percussion: a normal exam 07/13/2011 None Full Exam - General 1994 Abdomen abdominal exam Upper quadrant: non-tender to palpation 07/13/2011 None Full Exam - General 1994 Abdomen abdominal exam Lower quadrant: non-tender to palpation 07/13/2011 None Full Exam - General 1994 Abdomen abdominal exam Epigastric: non-tender to palpation 07/13/2011 None Full Exam - General 1994 Cardiovascular auscultation of heart Overall: regular rate 07/13/2011 None Full Exam - General 1994 Cardiovascular auscultation of heart Overall: normal heart sounds 07/13/2011 None Full Exam - General 1994 Respiratory respiratory effort/rhythm Overall: normal rate 07/13/2011 None Full Exam - General 1994 Respiratory respiratory effort/rhythm Overall: no retractions 07/13/2011 None Full Exam - General 1994 Respiratory auscultation Overall: breath sounds clear bilaterally 07/13/2011 None Full Exam - General 1994 Psychiatric mood and affect Overall: normal mood and affect 07/13/2011 None Full Exam - General 1994 Psychiatric orientation/consciousness Overall: oriented to person, place and time 07/13/2011 None Full Exam - General 1994 Neurologic gait Conventional walking: ataxic rhythm 07/13/2011 None Full Exam - General 1994 Neurologic gait Conventional walking: wide-based 07/13/2011 None Full Exam - General 1994 Constitutional general appearance Overall: well nourished 07/13/2011 None Full Exam - General 1994 Constitutional general appearance Overall: well developed 07/13/2011 None Full Exam - General 1994 Constitutional general appearance Overall: in no acute distress 07/13/2011 None Full Exam - General 1994 Ears/Nose/Throat oral cavity/pharynx/larynx Overall: oropharyngeal mucosa clear 07/13/2011 None Full Exam - General 1994 Ears/Nose/Throat oral cavity/pharynx/larynx Overall: no masses 07/13/2011 None Full Exam - General 1994 Ears/Nose/Throat oral cavity/pharynx/larynx Overall: oral mucosa clear 07/13/2011 None Full Exam - General 1994 Ears/Nose/Throat otoscopic exam Overall: tympanic membranes clear 07/13/2011 None Full Exam - General 1994 Ears/Nose/Throat otoscopic exam Overall: external auditory canals clear 07/13/2011 None Procedures Procedure Codes Date ADMIN INFLUENZA VIRUS VAC CPT-4: G0008 07/05/2017 FLU VACC PRSV FREE INC ANTIG CPT-4: 05235 07/05/2017 THER/PROPH/DIAG INJ SC/IM CPT-4: 08825 11/05/2016 TRIAMCINOLONE ACET INJ NOS CPT-4: J3301 11/05/2016 TRIAMCINOLONE ACET INJ NOS CPT-4: J3301 09/16/2014 DRAIN/INJECT JOINT/BURSA CPT-4: 28668 09/16/2014 KETOROLAC TROMETHAMINE INJ CPT-4: J1885 03/20/2014 URINALYSIS NONAUTO W/O SCOPE CPT-4: 86715 12/10/2013 PRESCRIP TRANSMIT VIA ERX SY CPT-4: G8553 09/17/2013 PRESCRIP TRANSMIT VIA ERX SY CPT-4: G8553 06/08/2012 TRIAMCINOLONE ACET INJ NOS CPT-4: J3301 03/16/2012 INJ TRIGGER POINT 1/2 MUSCL CPT-4: 08640 03/16/2012 PRESCRIP TRANSMIT VIA ERX SY CPT-4: G8553 03/16/2012 ADMIN INFLUENZA VIRUS VAC CPT-4: G0008 07/13/2011 FLULAVAL VACC, 3 YRS & >, IM CPT-4: Q2036 07/13/2011 ADMIN PNEUMOCOCCAL VACCINE SNOMED CT: [id number] CPT-4: G0009 07/13/2011 Pneumococcal Polysaccharide Vaccine, 23-Valent, Ad CPT-4: 01741 07/13/2011 Vital Signs Date Vital 08/03/2017 Blood Pressure 1: 122/60 Code : 8480-6 BMI: 36.0 Code : 96353-6 Heart Rate 1 : 60 bpm Height: 5'3" SpO2: 97% Weight: 203 lbs 07/05/2017 Blood Pressure 1: 140/76 Code : 8480-6 BMI: 36.0 Code : 51999-8 Heart Rate 1 : 58 bpm Height: 5'3" SpO2: 98% Weight: 203 lbs 12/02/2016 Blood Pressure 1: 122/70 Code : 8480-6 BMI: 34.4 Code : 03526-1 Heart Rate 1 : 66 bpm Height: 5'3" SpO2: 99% Temperature: 36.4 (C) / 97.5 (F) Weight: 194 lbs 11/22/2016 Blood Pressure 1: 102/60 Code : 8480-6 BMI: 34.2 Code : 90767-7 Heart Rate 1 : 110 bpm Height: 5'3" SpO2: 98% Temperature: 36.7 (C) / 98.0 (F) Weight: 193 lbs 11/05/2016 Blood Pressure 1: 140/62 Code : 8480-6 BMI: 36.1 Code : 14385-0 Heart Rate 1 : 102 bpm Height: 5'3" SpO2: 97% Temperature: 37.1 (C) / 98.7 (F) Weight: 204 lbs 07/22/2016 Blood Pressure 1: 158/80 Code : 8480-6 Blood Pressure 1: 160/76 Code: 8480-6 BMI: 36.8 Code: 13151-4 Heart Rate 1: 56 bpm Height: 5'3" SpO2: 98% Weight: 208 lbs 05/19/2016 Blood Pressure 1: 150/78 Code : 8480-6 Blood Pressure 1: 122/69 Code: 8480-6 BMI: 37.0 Code: 24430-3 Heart Rate 1: 61 bpm Height: 5'3" SpO2: 98% Weight: 209 lbs 02/13/2016 Blood Pressure 1: 140/76 Code : 8480-6 BMI: 36.8 Code : 31282-6 Heart Rate 1 : 64 bpm Height: 5'3" SpO2: 97% Weight: 208 lbs 01/13/2016 Blood Pressure 1: 170/70 Code : 8480-6 BMI: 36.8 Code : 24699-9 Heart Rate 1 : 65 bpm Height: 5'3" SpO2: 95% Weight: 208 lbs 01/02/2016 Blood Pressure 1: 150/88 Code : 8480-6 BMI: 36.8 Code : 90027-4 Heart Rate 1 : 61 bpm Height: 5'3" SpO2: 98% Weight: 208 lbs 12/18/2015 Blood Pressure 1: 148/90 Code : 8480-6 BMI: 37.6 Code : 55542-8 Heart Rate 1 : 64 bpm Height: 5'3" SpO2: 96% Weight: 212 lbs 09/08/2015 Blood Pressure 1: 130/88 Code : 8480-6 BMI: 37.0 Code : 98737-3 Heart Rate 1 : 62 bpm Height: 5'3" SpO2: 97% Weight: 209 lbs 07/09/2015 Blood Pressure 1: 142/82 Code : 8480-6 BMI: 36.4 Code : 66852-9 Heart Rate 1 : 66 bpm Height: 5'3" SpO2: 97% Weight: 205 lbs 5 oz 01/16/2015 Blood Pressure 1: 122/80 Code : 8480-6 BMI: 35.6 Code : 41792-2 Heart Rate 1 : 67 bpm Height: 5'3" SpO2: 98% Weight: 201 lbs 01/03/2015 Blood Pressure 1: 122/70 Code : 8480-6 BMI: 35.6 Code : 26585-9 Heart Rate 1 : 61 bpm Height: 5'3" Respiratory Rate: 16 bpm SpO2: 98% Weight: 201 lbs 09/16/2014 Blood Pressure 1: 132/78 Code : 8480-6 BMI: 34.9 Code : 46425-9 Heart Rate 1 : 56 bpm Height: 5'3" Weight: 197 lbs 08/15/2014 Blood Pressure 1: 152/80 Code : 8480-6 Blood Pressure 2: 160/82 Code: 8480-6 BMI: 34.0 Code: 83301-3 Heart Rate 1: 75 bpm Height: 5'3" Weight: 192 lbs 06/12/2014 Blood Pressure 1: 136/82 Code : 8480-6 BMI: 34.9 Code : 80954-9 Heart Rate 1 : 58 bpm Height: 5'3" SpO2: 96% Weight: 197 lbs 03/20/2014 Blood Pressure 1: 140/72 Code : 8480-6 BMI: 34.9 Code : 04831-0 Heart Rate 1 : 60 bpm Height: 5'3" Weight: 197 lbs 12/10/2013 Blood Pressure 1: 132/78 Code : 8480-6 BMI: 35.1 Code : 17564-1 Heart Rate 1 : 68 bpm Height: 5'3" Weight: 198 lbs 09/17/2013 Blood Pressure 1: 128/78 Code : 8480-6 BMI: 34.9 Code : 66567-6 Heart Rate 1 : 68 bpm Height: 5'3" Weight: 197 lbs 05/21/2013 Blood Pressure 1: 128/82 Code : 8480-6 BMI: 35.6 Code : 55911-9 Heart Rate 1 : 80 bpm Height: 5'3" Weight: 201 lbs 01/17/2013 Blood Pressure 1: 138/72 Code : 8480-6 BMI: 36.7 Code : 93112-2 Heart Rate 1 : 60 bpm Height: 5'3" Weight: 207 lbs 5 oz 09/20/2012 Blood Pressure 1: 128/78 Code : 8480-6 Heart Rate 1: 60 bpm 06/08/2012 Blood Pressure 1: 142/84 Code : 8480-6 Heart Rate 1: 68 bpm Weight: 222 lbs 04/10/2012 Blood Pressure 1: 152/74 Code : 8480-6 Heart Rate 1: 72 bpm Respiratory Rate : 16 bpm Weight: 219 lbs 8 oz 03/16/2012 Blood Pressure 1: 132/78 Code : 8480-6 Heart Rate 1: 64 bpm Respiratory Rate : 16 bpm Weight: 224 lbs 02/03/2012 Blood Pressure 1: 140/78 Code : 8480-6 BMI: 40.0 Code : 80941-7 Heart Rate 1 : 64 bpm Height: 5'3" Respiratory Rate: 16 bpm Weight: 226 lbs 11/04/2011 Blood Pressure 1: 136/76 Code : 8480-6 Heart Rate 1: 68 bpm Respiratory Rate : 16 bpm Weight: 226 lbs 07/13/2011 Blood Pressure 1: 142/80 Code : 8480-6 BMI: 40.0 Code : 38551-4 Heart Rate 1 : 60 bpm Height: 5'4" Respiratory Rate: 16 bpm Weight: 233 lbs Functional Status No Functional Status data History of Present Illness Symptom Name Status Result Effective Date Notes diarrhea Quality loose 08/03/2017 None diarrhea Onset and Resolution sudden in onset 08/03/2017 None diarrhea Onset of Symptom _ days ago 08/03/2017 None hypertension Onset and Resolution ongoing 07/05/2017 None hypertension Onset of Symptom during adulthood 07/05/2017 None hypertension Blood Pressure Values patient checking blood pressure at home - did not bring in readings 07/05/2017 None hypertension Alleviating Factors medication 07/05/2017 None hypertension Pertinent Findings dizziness 07/05/2017 and imbalance hypertension Pertinent Findings Denies dyspnea 07/05/2017 None hypertension Pertinent Findings edema 07/05/2017 -wears christine hose bilaterally hypertension Quality primary hypertension 07/05/2017 None hypertension Pertinent Findings decreased energy 07/05/2017 None gait abnormality Quality unsteady 07/05/2017 None gait abnormality Onset and Resolution ongoing 07/05/2017 None gait abnormality Quality worsening 07/05/2017 None gait abnormality Assistive devices cane 07/05/2017 None hypertension Quality intermittent 12/02/2016 None hypertension Onset and Resolution ongoing 12/02/2016 None hypertension Onset of Symptom during adulthood 12/02/2016 None hypertension Alleviating Factors medication 12/02/2016 None hypertension Pertinent Findings dizziness 12/02/2016 None hypertension Pertinent Findings dyspnea 12/02/2016 None hypertension Pertinent Findings edema 12/02/2016 -wears christine hose occasionally hypertension Blood Pressure Values pt checking blood pressure - see scanned document 12/02/2016 None hypertension Blood Pressure Values Stage 1:SBP 140-159 mmHg / DBP 90-99 mmHg 12/02/2016 None hypertension Blood Pressure Values Stage 2:SBP 160-179 mmHg / DBP 100-109 mmHg 12/02/2016 None hypertension Severity mild 12/02/2016 None hypertension Quality intermittent 11/22/2016 None hypertension Onset and Resolution ongoing 11/22/2016 None hypertension Onset of Symptom during adulthood 11/22/2016 None hypertension Alleviating Factors medication 11/22/2016 None hypertension Pertinent Findings dizziness 11/22/2016 None hypertension Pertinent Findings dyspnea 11/22/2016 None hypertension Pertinent Findings Denies edema 11/22/2016 -wears christine hose occasionally cough Quality intermittent 11/22/2016 None cough Onset and Resolution ongoing 11/22/2016 None hypertension Blood Pressure Values patient checking blood pressure at home - did not bring in readings 11/22/2016 None chest congestion Quality acute 11/22/2016 None chest congestion Onset and Resolution sudden in onset 11/22/2016 None chest congestion Pertinent Findings decreased energy 11/22/2016 None chest congestion Pertinent Findings weight loss 11/22/2016 None chest congestion Pertinent Findings Denies sputum production 11/22/2016 None chest congestion Pertinent Findings loss of appetite 11/22/2016 None chest congestion Pertinent Findings fever 11/22/2016 None chest congestion Pertinent Findings dyspnea 11/22/2016 None chest congestion Pertinent Findings cough 11/22/2016 None cough Quality acute None cough Pertinent Findings Denies sputum production 11/22/2016 None cough Pertinent Findings fever 11/22/2016 None sinus congestion Location on both sides 11/05/2016 None sinus congestion Quality fullness 11/05/2016 None sinus congestion Quality pressure 11/05/2016 None sinus congestion Onset and Resolution sudden in onset 11/05/2016 None sinus congestion Onset of Symptom 3 days ago 11/05/2016 None sinus congestion Frequency of Episodes daily 11/05/2016 None sinus congestion Pertinent Findings cough 11/05/2016 None sinus congestion Pertinent Findings hoarseness 11/05/2016 None chest congestion Quality constant 11/05/2016 None chest congestion Onset and Resolution sudden in onset 11/05/2016 None chest congestion Onset of Symptom 3 days ago 11/05/2016 None chest congestion Pertinent Findings decreased energy 11/05/2016 None chest congestion Pertinent Findings loss of appetite 11/05/2016 None chest congestion Pertinent Findings nasal congestion 11/05/2016 None chest congestion Pertinent Findings sinus congestion 11/05/2016 None hypertension Quality intermittent 07/22/2016 None hypertension Onset and Resolution ongoing 07/22/2016 None hypertension Onset of Symptom during adulthood 07/22/2016 None hypertension Blood Pressure Values pt checking blood pressure - see scanned document 07/22/2016 None hypertension Pertinent Findings dizziness 07/22/2016 None hypertension Pertinent Findings dyspnea 07/22/2016 None hypertension Pertinent Findings edema 07/22/2016 in her ankles- wears christine hose hypertension Alleviating Factors medication 07/22/2016 None abdominal pain Location in the epigastric area 07/22/2016 None abdominal pain Quality intermittent 07/22/2016 None abdominal pain Onset and Resolution ongoing 07/22/2016 None abdominal pain Exacerbating Factors eating 07/22/2016 None abdominal pain Alleviating Factors medication 07/22/2016 None dysphagia Location in the throat 07/22/2016 None dysphagia Quality difficulty with solids 07/22/2016 None dysphagia Quality intermittent 07/22/2016 None hypertension Onset and Resolution ongoing 05/19/2016 None hypertension Onset of Symptom during adulthood 05/19/2016 None hypertension Quality intermittent 05/19/2016 None hypertension Blood Pressure Values pt checking blood pressure - see scanned document 05/19/2016 None hypertension Pertinent Findings dizziness 05/19/2016 "all the time" hypertension Pertinent Findings Denies dyspnea 05/19/2016 None hypertension Pertinent Findings edema 05/19/2016 "some"- mostly in her hands blood pressure followup Quality intermittent 02/13/2016 None blood pressure followup Onset and Resolution ongoing 02/13/2016 None blood pressure followup Blood Pressure Values pt checking blood pressure at home, did not bring in to clinic 02/13/2016 None blood pressure followup Severity mild 02/13/2016 None blood pressure followup Frequency of Episodes increasing 02/13/2016 None blood pressure followup Significant Family History cerebrovascular accident 02/13/2016 None blood pressure followup Significant Medical Conditions cardiac disease 02/13/2016 None blood pressure followup Triggers no known associated factors 02/13/2016 None blood pressure followup Exacerbating Factors medication 02/13/2016 None blood pressure followup Pertinent Findings Denies anxiety 02/13/2016 None blood pressure followup Pertinent Findings Denies dizziness 02/13/2016 None blood pressure followup Pertinent Findings Denies dyspnea 02/13/2016 None blood pressure followup Pertinent Findings Denies edema 02/13/2016 None blood pressure followup Quality intermittent 01/13/2016 None blood pressure followup Onset and Resolution ongoing 01/13/2016 None blood pressure followup Blood Pressure Values pt checking blood pressure at home, did not bring in to clinic 01/13/2016 None blood pressure followup Pertinent Findings Denies anxiety 01/13/2016 None blood pressure followup Pertinent Findings Denies dizziness 01/13/2016 None blood pressure followup Pertinent Findings Denies dyspnea 01/13/2016 None blood pressure followup Pertinent Findings Denies edema 01/13/2016 None blood pressure followup Severity mild 01/13/2016 None blood pressure followup Frequency of Episodes increasing 01/13/2016 None blood pressure followup Significant Family History cerebrovascular accident 01/13/2016 None blood pressure followup Significant Medical Conditions cardiac disease 01/13/2016 None blood pressure followup Triggers no known associated factors 01/13/2016 None blood pressure followup Exacerbating Factors medication 01/13/2016 None hypertension Quality chronic 01/02/2016 None hypertension Onset and Resolution ongoing 01/02/2016 None hypertension Onset of Symptom during adulthood 01/02/2016 None hypertension Blood Pressure Values pt checking blood pressure - see scanned document 01/02/2016 None hypertension Severity not consistently severe symptoms, the symptoms fluctuate from no symptoms to anxiety and headaches 01/02/2016 None hypertension Frequency of Episodes unchanged 01/02/2016 None hypertension Triggers no known associated factors 01/02/2016 None hypertension Pertinent Findings Denies anxiety 01/02/2016 None hypertension Pertinent Findings Denies confusion 01/02/2016 None hypertension Pertinent Findings Denies dyspnea 01/02/2016 None hypertension Pertinent Findings Denies edema 01/02/2016 None hypertension Quality chronic 12/18/2015 None hypertension Onset and Resolution ongoing 12/18/2015 None hypertension Onset of Symptom during adulthood 12/18/2015 None hypertension Blood Pressure Values pt checking blood pressure - see scanned document 12/18/2015 None hypertension Severity not consistently severe symptoms, the symptoms fluctuate from no symptoms to anxiety and headaches 12/18/2015 None hypertension Frequency of Episodes unchanged 12/18/2015 None hypertension Triggers no known associated factors 12/18/2015 None hypertension Pertinent Findings Denies anxiety 12/18/2015 None hypertension Pertinent Findings Denies confusion 12/18/2015 None hypertension Pertinent Findings Denies dyspnea 12/18/2015 None hypertension Pertinent Findings Denies edema 12/18/2015 None vertigo Quality intermittent 09/08/2015 None vertigo Onset and Resolution ongoing 09/08/2015 None vertigo Onset of Symptom 5 days ago 09/08/2015 None vertigo Length of Episodes 1-2 minutes 09/08/2015 None vertigo Pertinent Findings dizziness 09/08/2015 None vertigo Pertinent Findings Denies ear pain 09/08/2015 None vertigo Pertinent Findings Denies syncope 09/08/2015 None vertigo Pertinent Findings Denies dyspnea 09/08/2015 None hypertension Blood Pressure Values not checking blood pressure at home 09/08/2015 None hypertension Pertinent Findings dizziness 09/08/2015 None hypertension Pertinent Findings Denies dyspnea 09/08/2015 None arm pain Location left forearm 09/08/2015 None arm pain Location right forearm 09/08/2015 None arm pain Quality intermittent 09/08/2015 None arm pain Quality electricity 09/08/2015 None arm pain Quality sharp pain 09/08/2015 None arm pain Onset of Symptom 5 days ago 09/08/2015 None arm pain Pertinent Findings female 09/08/2015 None arm pain Pertinent Findings gait disturbance 09/08/2015 uses a cane arm pain Pertinent Findings Denies pain with movement 09/08/2015 None arm pain Pertinent Findings Denies right hand dominant 09/08/2015 None palpitations Quality awareness of heartbeat 07/09/2015 no episodes since last time she was here palpitations Quality skipped beats 07/09/2015 None palpitations Onset and Resolution sudden in onset 07/09/2015 None palpitations Onset of Symptom 1 days ago 07/09/2015 None palpitations Frequency of Episodes daily 07/09/2015 None palpitations Pertinent Findings tachycardia 07/09/2015 one episode yesterday. Pulse this am 85 hypertension Blood Pressure Values not checking blood pressure at home 07/09/2015 None hypertension Pertinent Findings Denies dizziness 07/09/2015 None hypertension Pertinent Findings Denies dyspnea 07/09/2015 None memory loss Onset of Symptom _ years ago 07/09/2015 None memory loss Onset and Resolution ongoing 07/09/2015 pt states her asked her to cut his hair and she forgot.. also states she forgets things within an hour memory loss Quality worsening 07/09/2015 None memory loss Triggers no known associated factors 07/09/2015 None palpitations Quality awareness of heartbeat 01/16/2015 no episodes since last time she was here palpitations Quality skipped beats 01/16/2015 None palpitations Onset and Resolution sudden in onset 01/16/2015 None palpitations Onset of Symptom 1 days ago 01/16/2015 None palpitations Frequency of Episodes daily 01/16/2015 None palpitations Pertinent Findings tachycardia 01/16/2015 one episode yesterday. Pulse this am 85 shoulder pain Location on the left shoulder 01/16/2015 None shoulder pain Onset and Resolution sudden in onset 01/16/2015 None shoulder pain Onset of Symptom 4 days ago 01/16/2015 has felt pain in shoulder before a while ago. shoulder pain Pertinent Findings Denies loss of range of motion 01/16/2015 None shoulder pain Quality intermittent 01/16/2015 sharp pain that catches her breath, reports a little better palpitations Quality skipped beats 01/03/2015 None palpitations Quality awareness of heartbeat 01/03/2015 None palpitations Onset and Resolution sudden in onset 01/03/2015 None palpitations Onset of Symptom 1 days ago 01/03/2015 None palpitations Frequency of Episodes daily 01/03/2015 None palpitations Pertinent Findings tachycardia 01/03/2015 one episode yesterday. Pulse this am 85 shoulder pain Location on the left shoulder 01/03/2015 None shoulder pain Quality constant 01/03/2015 None shoulder pain Onset and Resolution sudden in onset 01/03/2015 None shoulder pain Onset of Symptom 4 days ago 01/03/2015 has felt pain in shoulder before a while ago. shoulder pain Pertinent Findings Denies loss of range of motion 01/03/2015 None back pain Location in the right lower back area 09/16/2014 None back pain Onset of Symptom 1 weeks ago 09/16/2014 None back pain Quality acute 09/16/2014 None back pain Quality constant 09/16/2014 None back pain Onset and Resolution ongoing 09/16/2014 None back pain Triggers activity 09/16/2014 None nausea Onset of Symptom 1 weeks ago 08/15/2014 None nausea Onset and Resolution gradual in onset 08/15/2014 None nausea Severity mild 08/15/2014 None nausea Triggers no known associated factors 08/15/2014 None nausea Alleviating Factors no alleviatng factors 08/15/2014 None rash Location-Major on the neck 06/12/2014 None rash Location-Major on the chest 06/12/2014 None rash Location-Major on the arms 06/12/2014 None rash Location-Major on the head 06/12/2014 None rash Color pink 2013 None rash Onset of Symptom 4 days ago 06/12/2014 None rash Severity moderate 06/12/2014 None rash Triggers certain foods 06/12/2014 None rash Pertinent Findings Denies fever 06/12/2014 None rash Pertinent Findings dizziness 06/12/2014 chronic problem rash Pertinent Findings history of similar rash 06/12/2014 None rash Pertinent Findings itching 06/12/2014 None rash Pertinent Findings Denies pain 06/12/2014 None rash Alleviating Factors treatment medication 06/12/2014 None back pain Location in the left middle back area 03/20/2014 None back pain Quality intermittent 03/20/2014 None back pain Quality sharp 03/20/2014 after rodolfo on feet for more then 15mins back pain Pertinent Findings Denies fever 03/20/2014 None back pain Pertinent Findings morning stiffness 03/20/2014 None back pain Pertinent Findings Denies sleep disturbance 03/20/2014 None back pain Alleviating Factors rest 03/20/2014 None back pain Alleviating Factors position change 03/20/2014 None back pain Radiating the back 03/20/2014 to stomach back pain Severity moderate 03/20/2014 None back pain Onset and Resolution ongoing 03/20/2014 None back pain Limitation on Activities moderately limits activities 03/20/2014 None abdominal pain Location in the suprapubic area 12/10/2013 None abdominal pain Quality cramping 12/10/2013 None abdominal pain Quality dull 12/10/2013 None abdominal pain Pertinent Findings Denies bloating 12/10/2013 None abdominal pain Pertinent Findings Denies abdominal distension 12/10/2013 states possible constipation abdominal pain Pertinent Findings Denies nausea 12/10/2013 None abdominal pain Onset of Symptom 1 days ago 12/10/2013 None back pain Location in the midline of in the upper back area 12/10/2013 None back pain Quality dull 12/10/2013 not hurting today, its off and on abdominal pain Triggers no known associated factors 12/10/2013 None back pain Onset and Resolution ongoing 12/10/2013 None back pain Limitation on Activities moderately limits activities 12/10/2013 None back pain Pertinent Findings Denies chills 12/10/2013 None back pain Pertinent Findings Denies fever 12/10/2013 None hypertension Quality chronic 09/17/2013 None hypertension Onset and Resolution ongoing 09/17/2013 None hypertension Quality stable 09/17/2013 None hypertension Blood Pressure Values not checking blood pressure at home 09/17/2013 None hypertension Pertinent Findings Denies decreased energy 09/17/2013 None hypertension Pertinent Findings Denies dizziness 09/17/2013 None hypertension Pertinent Findings Denies palpitations 09/17/2013 None hypertension Pertinent Findings Denies orthostatic hypotension 09/17/2013 None hypertension Pertinent Findings Denies tachycardia 09/17/2013 None hypertension Pertinent Findings Denies edema 09/17/2013 None hypertension Pertinent Findings Denies dyspnea 09/17/2013 None hypertension Severity mild 09/17/2013 None back pain Location in the right middle back area 05/21/2013 None back pain Location in the left middle back area 05/21/2013 None back pain Quality squeezing 05/21/2013 None back pain Quality intermittent 05/21/2013 None back pain Onset and Resolution sudden in onset 05/21/2013 None back pain Onset of Symptom 1 weeks ago 05/21/2013 None back pain Alleviating Factors medication 05/21/2013 ibuprofen back pain Pertinent Findings Denies muscle strain 05/21/2013 None back pain Pertinent Findings Denies fever 05/21/2013 None back pain Pertinent Findings Denies weakness 05/21/2013 None hypertension Quality chronic 05/21/2013 None hypertension Onset and Resolution ongoing 05/21/2013 None hypertension Blood Pressure Values not checking blood pressure at home 05/21/2013 None hypertension Pertinent Findings Denies dizziness 05/21/2013 None hypertension Pertinent Findings Denies dyspnea 05/21/2013 None hypertension Pertinent Findings Denies edema 05/21/2013 None hypertension Pertinent Findings Denies orthostatic hypotension 05/21/2013 None hypertension Pertinent Findings Denies palpitations 05/21/2013 None hypertension Pertinent Findings Denies tachycardia 05/21/2013 None hypertension Quality chronic 01/17/2013 None hypertension Onset and Resolution ongoing 01/17/2013 None hypertension Onset of Symptom during adulthood 01/17/2013 None hypertension Severity mild 01/17/2013 None hypertension Pertinent Findings Denies decreased energy 01/17/2013 None hypertension Pertinent Findings dizziness 01/17/2013 None hypertension Pertinent Findings Denies anxiety 01/17/2013 None hypertension Exacerbating Factors stress 01/17/2013 None hypertension Alleviating Factors medication 01/17/2013 None hypertension Alleviating Factors diet changes 01/17/2013 None hypertension Significant Family History heart disease 01/17/2013 None vertigo Onset and Resolution sudden in onset 09/20/2012 None vertigo Onset and Resolution ongoing 09/20/2012 states has had 2 spells since here last pain Quality uncomfortable 09/20/2012 states has generalized joint pain pain Onset and Resolution gradual in onset 09/20/2012 None pain Onset and Resolution ongoing 09/20/2012 None nosebleed Frequency of Episodes increasing 09/20/2012 states 3-4x in past month hypertension Quality stable 09/20/2012 None vertigo Quality acute 09/20/2012 None vertigo Onset and Resolution gradual in onset 09/20/2012 None vertigo Frequency of Episodes increasing 09/20/2012 states use to have a vertigo once and year and has had 3 episodes so far this year vertigo Triggers activity 09/20/2012 None vertigo Alleviating Factors rest 09/20/2012 None vertigo Alleviating Factors medication 09/20/2012 None vertigo Exacerbating Factors turning head to the left 09/20/2012 None vertigo Exacerbating Factors turning head to the right 09/20/2012 None vertigo Exacerbating Factors position change 09/20/2012 None vertigo Pertinent Findings dizziness 09/20/2012 None nosebleed Pertinent Findings Denies cough 09/20/2012 None nosebleed Pertinent Findings Denies easy bruising 09/20/2012 None nosebleed Pertinent Findings Denies hoarseness 09/20/2012 None nosebleed Pertinent Findings Denies lightheadedness 09/20/2012 None nosebleed Pertinent Findings Denies loss of consciousness 09/20/2012 None nosebleed Pertinent Findings Denies recurrent epistaxis 09/20/2012 None nosebleed Pertinent Findings Denies poor appetite 09/20/2012 None nosebleed Triggers dry weather 09/20/2012 None nosebleed Triggers nose blowing 09/20/2012 None nosebleed Triggers seasonal changes 09/20/2012 None nosebleed Timing of Episodes at night 09/20/2012 None nosebleed Quality intermittent 09/20/2012 None nosebleed Significant Medical Conditions allergic rhinitis 09/20/2012 None hypertension Onset and Resolution ongoing 09/20/2012 None hypertension Onset of Symptom during adulthood 09/20/2012 None hypertension Pertinent Findings Denies anxiety 09/20/2012 None hypertension Pertinent Findings Denies confusion 09/20/2012 None hypertension Pertinent Findings dizziness 09/20/2012 None hypertension Pertinent Findings Denies decreased energy 09/20/2012 None hypertension Exacerbating Factors stress 09/20/2012 None hypertension Alleviating Factors medication 09/20/2012 None hypertension Severity mild 09/20/2012 None hypertension Blood Pressure Values patient checking blood pressure at home - did not bring in readings 09/20/2012 None hyperlipidemia Onset and Resolution ongoing 06/08/2012 None hypertension Quality stable 06/08/2012 None vertigo Quality acute 06/08/2012 None vertigo Frequency of Episodes increasing 06/08/2012 states use to have a vertigo once and year and has had 3 episodes so far this year vertigo Pertinent Findings dizziness 06/08/2012 None vertigo Onset and Resolution gradual in onset 06/08/2012 None vertigo Onset and Resolution ongoing 06/08/2012 None vertigo Triggers activity 06/08/2012 None vertigo Alleviating Factors rest 06/08/2012 None vertigo Alleviating Factors medication 06/08/2012 None vertigo Exacerbating Factors turning head to the left 06/08/2012 None vertigo Exacerbating Factors turning head to the right 06/08/2012 None vertigo Exacerbating Factors position change 06/08/2012 None vertigo Quality acute 04/10/2012 None vertigo Onset and Resolution resolved 04/10/2012 None vertigo Onset of Symptom 1 weeks ago 04/10/2012 None vertigo Pertinent Findings dizziness 04/10/2012 None vertigo Frequency of Episodes increasing 04/10/2012 states use to have a vertigo once and year and has had 3 episodes so far this year abdominal pain Location in the RLQ 04/10/2012 None abdominal pain Quality acute 04/10/2012 None abdominal pain Quality intermittent 04/10/2012 None abdominal pain Pertinent Findings Denies hematemesis 04/10/2012 None abdominal pain Pertinent Findings Denies emesis 04/10/2012 None abdominal pain Pertinent Findings Denies nausea 04/10/2012 states approx one week before vertigo episdose had headaches and also after the attack abdominal pain Onset of Symptom 1 weeks ago 04/10/2012 None shoulder pain Onset of Symptom 4 days ago 03/16/2012 None shoulder pain Quality acute 03/16/2012 None shoulder pain Quality sharp 03/16/2012 None shoulder pain Quality worsening 03/16/2012 None shoulder pain Pertinent Findings Denies swelling 03/16/2012 None shoulder pain Pertinent Findings Denies limited range of motion 03/16/2012 None shoulder pain Location diffusely 03/16/2012 None shoulder pain Location on the left shoulder 03/16/2012 starts in her scapula and then transmits to her shoulder and her clavicle. She states that she has to change positions and the pain will resolve. shoulder pain Onset and Resolution gradual in onset 03/16/2012 The pain started on Tuesday. shoulder pain Quality stabbing 03/16/2012 The pain starts out like a stabbing hot poker like pain that then goes into a throbbing pain. shoulder pain Limitation on Activities moderately limits activities 03/16/2012 None shoulder pain Frequency of Episodes daily 03/16/2012 None shoulder pain Length of Episodes 5 days 03/16/2012 None shoulder pain Timing of Episodes in the afternoon 03/16/2012 The pain starts in the afternoon then progresses into the evening/night-time hours. shoulder pain Significant Medications NSAID's(has tried ibuprofen, it helped a little) 03/16/2012 None shoulder pain Mechanism of injury unknown 03/16/2012 Charley notes that she had adhesive capsulitis and Dr. Velez manipulated the shoulder to break the adhesions. 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 shoulder pain Triggers no known associated factors 03/16/2012 None shoulder pain Alleviating Factors NSAID ingestion 03/16/2012 only helped a little shoulder pain Alleviating Factors medication 03/16/2012 oxycodone helped a little medication follow up Additional Comments medication: was started on lipitor 02/03/2012 None hypertension Quality chronic 02/03/2012 None hypertension Onset and Resolution ongoing 02/03/2012 None lower leg pain Onset of Symptom 3 months ago 02/03/2012 associates it with when she started lipitor hyperlipidemia Onset and Resolution ongoing 02/03/2012 None hyperlipidemia Onset of Symptom during adulthood 02/03/2012 None hyperlipidemia Severity moderate 02/03/2012 None hyperlipidemia Exacerbating Factors diet 02/03/2012 None hyperlipidemia Pertinent Findings obesity 02/03/2012 None hyperlipidemia Quality chronic 02/03/2012 None hyperlipidemia Quality increased cholesterol 02/03/2012 None hyperlipidemia Quality increased LDL 02/03/2012 None hyperlipidemia Quality increased TG 02/03/2012 None hyperlipidemia Quality worsening 02/03/2012 None hyperlipidemia Onset and Resolution ongoing 11/04/2011 None hyperlipidemia Onset of Symptom during adulthood 11/04/2011 None hyperlipidemia Severity moderate 11/04/2011 None hyperlipidemia Quality chronic 11/04/2011 None hyperlipidemia Quality increased cholesterol 11/04/2011 None hyperlipidemia Quality increased LDL 11/04/2011 None hyperlipidemia Quality increased TG 11/04/2011 None hyperlipidemia Quality worsening 11/04/2011 None hyperlipidemia Pertinent Findings obesity 11/04/2011 None hyperlipidemia Exacerbating Factors diet 11/04/2011 None abdominal pain Quality cramping 07/13/2011 within 30 min of eating abdominal pain Quality acute 07/13/2011 within 30 minutes of eating mental status change Onset and Resolution waxing and waning 07/13/2011 pt describes a funny feeling in brain, has developed nausea with it recently abdominal pain Location in the periumbilical area 07/13/2011 None abdominal pain Location in the suprapubic area 07/13/2011 None abdominal pain Onset and Resolution gradual in onset 07/13/2011 None abdominal pain Onset of Symptom during adulthood 07/13/2011 None abdominal pain Limitation on Activities moderately limits activities 07/13/2011 when she eats out she has the discomfort. Advance Directives No Advance Directive data Encounters Encounter Performer Location Codes Date EST. PATIENT, LEVEL III Diagnosis: Other specified intestinal infections[ICD10: A08.8] [facility] CPT-4: 07792 08/03/2017 [id number]) [id number] EST. 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 PATIENT, LEVEL III Diagnosis: Essential (primary) hypertension[ICD10: I10] Юлия Manuel MD, [facility] CPT-4: 03607 12/02/2016 ([id number]) [id number] EST. PATIENT, LEVEL III Diagnosis: Essential (primary) hypertension[ICD10: I10] Diagnosis: Allergic rhinitis due to pollen[ICD10: J30.1] Giuliana Manuel MD, [facility] CPT-4: [id number] 11/22/2016 [id number] EST. PATIENT, LEVEL III Diagnosis: Acute laryngopharyngitis[ICD10: J06.0] Diagnosis: Influenza due to unidentified influenza virus with other respiratory manifestations[ICD10: J11.1] Willow Manuel MD, [facility] CPT-4: 78164 11/05/2016 ([id number]) [id number] EST. PATIENT, LEVEL III Diagnosis: Gastro-esophageal reflux disease without esophagitis[ICD10: K21.9] Diagnosis: Essential (primary) hypertension[ICD10: I10] Giuliana Manuel MD, [facility] CPT-4: 85768 07/22/2016 ([id number]) 58883 EST. PATIENT, LEVEL IV Diagnosis: Essential (primary) hypertension[ICD10: I10] Diagnosis: Abdominal distension (gaseous)[ICD10: R14.0] Giuliana Manuel MD, [facility] CPT-4: 24561 05/19/2016 ([id number]) 99765 EST. PATIENT, LEVEL III Diagnosis: Essential (primary) hypertension[ICD10: I10] Юлия Manuel MD, [facility] CPT-4: 00514 02/13/2016 ([id number]) 09241 EST. PATIENT, LEVEL III Diagnosis: Essential (primary) hypertension[ICD10: I10] Юлия Manuel MD, [facility] CPT-4: 24644 01/13/2016 72631 EST. PATIENT, LEVEL IV Diagnosis: Essential (primary) hypertension[ICD10: I10] Diagnosis: Body mass index (BMI) 36.0-36.9, adult[ICD10: Z68.36] Willow Manuel MD, [facility] CPT-4: 76640 01/02/2016 ([id number]) 37980 EST. PATIENT, LEVEL III Diagnosis: Essential (primary) hypertension[ICD10: I10] Юлия Manuel MD, [facility] CPT-4: 92696 12/18/2015 ([id number] 54038 EST. PATIENT, LEVEL IV Diagnosis: Essential (primary) hypertension[ICD10: I10] Diagnosis: Benign paroxysmal vertigo, bilateral[ICD10: H81.13] Diagnosis: Radiculopathy, cervical region[ICD10: M54.12] Giuliana Manuel MD, [facility] CPT-4: 31195 09/08/2015 ([id number]) 27267 EST. PATIENT, LEVEL IV Diagnosis: Other specified nonscarring hair loss[ICD10: L65.8] Diagnosis: Myositis, unspecified[ICD10: M60.9] Diagnosis: Psoriasis, unspecified[ICD10: L40.9] Diagnosis: Essential (primary) hypertension[ICD10: I10] Giuliana Manuel MD, [facility] CPT-4: 27488 07/09/2015 ([id number]) 92426 EST. PATIENT, LEVEL III Diagnosis: ESSENTIAL HYPERTENSION[ICD9: 401.9] Giuliana Manuel MD, [facility] CPT-4: 24580 01/16/2015 ([id number]) 72264 EST. PATIENT, LEVEL III Diagnosis: Shoulder pain[ICD9: 719.41] Diagnosis: ESSENTIAL HYPERTENSION[ICD9: 401.9] Diagnosis: PALPITATIONS[ICD9: 785.1] Giuliana Manuel MD, [facility] CPT-4: 51087 01/03/2015 ([id number]) 46979 EST. PATIENT, LEVEL III Diagnosis: Sacroiliitis[ICD9: 720.2] Diagnosis: Back pain[ICD9: 724.5] Diagnosis: ESSENTIAL HYPERTENSION[ICD9: 401.9] Giuliana Manuel MD, [facility] CPT-4: 59096 09/16/2014 ([id number] 20704 EST. PATIENT, LEVEL IV Diagnosis: ESSENTIAL HYPERTENSION[ICD9: 401.9] Diagnosis: Arrhythmia[ICD9: 427.9] Diagnosis: Nausea[ICD9: 787.02] Giuliana Manuel MD, [facility] CPT-4: 66753 08/15/2014 ([id number]) 49131 EST. PATIENT, LEVEL IV Diagnosis: ESSENTIAL HYPERTENSION[ICD9: 401.9] Diagnosis: Back pain[ICD9: 724.5] Diagnosis: Allergic reaction[ICD9: 995.3] Giuliana Manuel MD [facility] CPT- 4: 32363 06/12/2014 ([id number]) 52142 EST. PATIENT, LEVEL III Diagnosis: Thoracic back pain[ICD9: 724.1] Diagnosis: MYALGIA AND MYOSITIS[ICD9: 729.1] Giuliana Manuel MD [facility] CPT-4: 38836 03/20/2014 ([id number]) 33381 EST. PATIENT, LEVEL IV Diagnosis: HYPERLIPIDEMIA[ICD9: 272.4] Diagnosis: ESSENTIAL HYPERTENSION[SNOMED: 87433499] Diagnosis: ABDOM PAIN NOS SITE[ICD9: 789.00] Giuliana Manuel MD [facility] CPT-4: 06114 12/10/2013 ([id number]) 38808 EST. PATIENT, LEVEL IV Diagnosis: ESSENTIAL HYPERTENSION[SNOMED: 79481201] Diagnosis: HYPERLIPIDEMIA[ICD9: 272.4] Giuliana Manuel MD [facility] CPT- 4: 10366 09/17/2013 ([id number]) 23772 EST. PATIENT, LEVEL IV Diagnosis: ESSENTIAL HYPERTENSION[SNOMED: 25145755] Diagnosis: OBESITY[ICD9: 278.00] Diagnosis: Back pain[ICD9: 724.5] Giuliana Manuel MD [facility] CPT-4: 79240 05/21/2013 ([id number]) 21935 EST. PATIENT, LEVEL IV Diagnosis: ESSENTIAL HYPERTENSION[SNOMED: 36162377] Diagnosis: HYPERLIPIDEMIA[ICD9: 272.4] Diagnosis: Abdominal pain[ICD9: 789.00] Diagnosis: BENIGN PAROXYSMAL VERTIGO[ICD9: 386.11] Giuliana Manuel MD [facility] CPT-4: 39875 01/17/2013 ([id number]) 34894 EST. PATIENT, LEVEL IV Diagnosis: ESSENTIAL HYPERTENSION[SNOMED: 28684192] Diagnosis: BENIGN PAROXYSMAL VERTIGO[ICD9: 386.11] Diagnosis: Hair loss[ICD9: 704.00] Diagnosis: Vitamin d deficiency[ICD9: 268.9] Diagnosis: Bleeding from the nose[ICD9: 784.7] Giuliana Manuel MD [facility] CPT-4: 11547 09/20/2012 68404 EST. PATIENT, LEVEL IV Diagnosis: BPPV (benign paroxysmal positional vertigo)[ICD9: 386.11] Diagnosis: HYPERLIPIDEMIA[ICD9: 272.4] Diagnosis: ESSENTIAL HYPERTENSION[SNOMED: 06228916] Giuliana Manuel MD [facility] CPT-4: 32997 06/08/2012 ([id number]) 00651 EST. PATIENT, LEVEL IV Diagnosis: BPPV (benign paroxysmal positional vertigo)[ICD9: 386.11] Diagnosis: Diverticulitis[ICD9: 562.11] Diagnosis: Abdominal pain[ICD9: 789.00] Giuliana Manuel MD [facility] CPT- 4: 13973 04/10/2012 ([id number]) 58747 EST. PATIENT, LEVEL III Diagnosis: Neck pain[ICD9: 723.1] Diagnosis: Acute upper back pain[ICD9: 724.1] Giuliana Manuel MD [facility] CPT-4: 76107 03/16/2012 ([id number]) 52574 EST. PATIENT, LEVEL IV Diagnosis: HYPERLIPIDEMIA[ICD9: 272.4] Diagnosis: ESSENTIAL HYPERTENSION[SNOMED: 37356781] Diagnosis: Constipation - functional[ICD9: 564.09] Giuliana Manuel MD [facility] CPT-4: 03103 02/03/2012 ([id number]) 37073 EST. PATIENT, LEVEL IV Diagnosis: HYPERLIPIDEMIA[ICD9: 272.4] Diagnosis: VITAMIN DEFICIENCY[ICD9: 269.2] Diagnosis: ESSENTIAL HYPERTENSION[SNOMED: 56951398] Giuliana Manuel MD, [facility] CPT-4: 23113 11/04/2011 81561 EST. 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 CPT- 4: 40648 07/13/2011 Plan of Care Planned Activity Notes Codes Status Date Appointment: [facility] [phone] [facility] [place] ([facility] min) Complex 08/03/2017 Patient Education: Patient Medication Summary Completed 08/03/2017 Patient Education: Obesity Completed 08/03/2017 Appointment: [facility] [phone] [facility] [place] (15 min) Moderate 07/05/2017 Patient Education: Patient Medication Summary Completed 07/05/2017 Patient Education: Obesity Completed 07/05/2017 Appointment: [facility] [phone] [facility] [place] (15 min) Moderate 06/27/2017 Appointment: [facility] [phone] [facility] [place] (15 min) Moderate 06/21/2017 Appointment: [facility]лия Rojas [facility] [phone] [facility] [place] (30 min) Complex 12/23/2016 Appointment: [facility]jas [facility] [phone] [facility] [place] (30 min) Complex 12/02/2016 Patient Education: Patient Medication Summary Completed 12/02/2016 Patient Education: Obesity Completed 12/02/2016 Appointment: [facility] [phone] [facility] [place] (15 min) Moderate 11/22/2016 Patient Education: Patient Medication Summary Completed 11/22/2016 Patient Education: Obesity Completed 11/22/2016 Appointment: [facility] [phone] [facility] [place] (30 min) Complex 11/05/2016 Patient Education: Patient Medication Summary Completed 11/05/2016 Referral: Duarte Catalan Patient informed. Referral info faxed. Completed Appointment: [facility] [phone] [facility] (15 min) Moderate 07/22/2016 Patient Education: Patient Medication Summary Completed 07/22/2016 Patient Education: Obesity Completed 07/22/2016 Care Plan: Referral Order SNOMED-CT : [id number] Pending 07/22/2016 Patient Education: Patient Medication Summary Completed 05/19/2016 Patient Education: Obesity Completed 05/19/2016 Appointment: Giuliana Manuel WPtel: [facility] [place] (15 min) Moderate 05/17/2016 Appointment: Юлия Rojas WPtel: [phone] [place] (30 min) Complex 02/13/2016 Patient Education: Patient Medication Summary Completed 02/13/2016 Patient Education: Obesity Completed 02/13/2016 Patient Education: Hypertension Completed 02/13/2016 Appointment: (15 min) Moderate 01/16/2016 Appointment: (30 min) Complex 01/13/2016 Patient Education: Patient Medication Summary Completed 01/13/2016 Patient Education: Obesity Completed 01/13/2016 Patient Education: Hypertension Completed 01/13/2016 Appointment: (15 min) Moderate 01/02/2016 Patient Education: Patient Medication Summary Completed 01/02/2016 Patient Education: Obesity Completed 01/02/2016 Care Plan: BMI Above normal followup SELF-MGMT EDUC & TRAIN 1 PT Ordered 2015 Patient Education: Patient Medication Summary Completed 12/18/2015 Patient Education: Obesity Completed 12/18/2015 Appointment: Giuliana Manuel WPtel: [facility] [place] (15 min) Moderate 12/08/2015 [facility]: [facility] [facility] [place] Referral Completed 10/17/2015 Appointment: Giuliana Manuel WPtel: [facility] [place] (15 min) Moderate 09/08/2015 Patient Education: Patient Medication Summary Completed 09/08/2015 Patient Education: .Cervicalgia Neck Pain Completed 09/08/2015 Care Plan: Referral Order SNOMED-CT : [id number] Ordered 09/08/2015 Appointment: Giuliana Manuel WPtel: [facility] (15 min) Moderate 07/09/2015 Patient Education: Patient Medication Summary Completed 07/09/2015 Appointment: Giuliana Manuel WPtel: [address] [place] [address] (15 min) Moderate 07/07/2015 Appointment: Giuliana Manuel WPtel: [address] [place], [place] [phone] Follow up 03/17/2015 Appointment: Giuliana Manuel WPtel: [address] [place], [place] [phone] Other 01/16/2015 Patient Education: Patient Medication Summary Completed 01/16/2015 Patient Education: Hypertension Completed 01/16/2015 Appointment: Giuliana Manuel WPtel: [address] [place], [place] [phone] Follow up 01/03/2015 Patient Education: Patient Medication Summary Completed 01/03/2015 Patient Education: Hypertension Completed 01/03/2015 Patient Education: Patient Medication Summary Completed 09/16/2014 Patient Education: Hypertension Completed 09/16/2014 Appointment: Giuliana Manuel WPtel: [address] [place] [address] Follow up 09/09/2014 Appointment: Giuliana Manuel WPtel: [address] [place] [address] Sick 08/15/2014 Patient Education: Patient Medication Summary Completed 08/15/2014 Patient Education: Hypertension Completed 08/15/2014 Care Plan: Referral Order SNOMED-CT : [id number] Ordered 08/15/2014 Appointment: Giuliana Manuel WPtel: [address] [place], [place] [phone] Follow up 06/18/2014 Appointment: Giuliana Manuel WPtel: [address] [place], [place] [phone] Sick 06/12/2014 Patient Education: Patient Medication Summary Completed 06/12/2014 Patient Education: Hypertension Completed 06/12/2014 Care Plan: Referral Order SNOMED-CT : [id number] Ordered 06/12/2014 Appointment: Giuliana Manuel WPtel: [address] [place], [place] [phone] Follow up 03/20/2014 Patient Education: Patient Medication Summary Completed 03/20/2014 Appointment: Giuliana Manuel WPtel: [address] [place], [place] [phone] Follow up 12/10/2013 Patient Education: Patient Medication Summary Completed 12/10/2013 Patient Education: Hypertension Completed 12/10/2013 Appointment: Giuliana Manuel WPtel: [address] [place], [place] [phone] Follow up 09/17/2013 Patient Education: Patient Medication Summary Completed 09/17/2013 Patient Education: Hypertension Completed 09/17/2013 Appointment: Giuliana Manuel WPtel: [address] [place], [place] [phone] Follow up 05/21/2013 Patient Education: Patient Medication Summary Completed 05/21/2013 Patient Education: Hypertension Completed 05/21/2013 Appointment: Giuliana Manuel WPtel: [address] [place], [place] [phone] Follow up 01/17/2013 Patient Education: Patient Medication Summary Completed 01/17/2013 Patient Education: Hypertension Completed 01/17/2013 Appointment: Giuliana Manuel WPtel: [address] [place], [place] [phone] Follow up 09/20/2012 Patient Education: Patient Medication Summary Completed 09/20/2012 Patient Education: Hypertension Completed 09/20/2012 Appointment: Giuliana Manuel WPtel: [address] [place] [phone] Follow up 06/08/2012 Patient Education: Patient Medication Summary Completed 06/08/2012 Patient Education: High Blood Pressure: Essential Hypertension Completed 2011 Appointment: Giuliana Manuel WPtel: [address] [place], [place] [phone] Other 04/10/2012 Patient Education: Patient Medication Summary Completed 04/10/2012 Patient Education: .Belgicaing charts Paroxysmal positional vertigo Completed 06/2012 Patient Education: Diverticulosis Diet Completed 04/10/2012 Appointment: Giuliana Manuel WPtel: [address] [place], [place] [phone] Other 03/16/2012 Patient Education: Patient Medication Summary Completed 03/16/2012 Appointment: Giuliana Manuel WPtel: [address] [place], [place] [phone] Other 02/03/2012 Patient Education: Patient Medication Summary Completed 02/03/2012 Patient Education: High Blood Pressure: Essential Hypertension Completed 2011 Patient Education: .[employer] Pudding Completed 02/03/2012 Appointment: Giuliana Manuel WPtel: [address] [place], [place] [phone] Follow up 11/04/2011 Patient Education: Patient Medication Summary Completed 11/04/2011 Patient Education: High Blood Pressure: Essential Hypertension Completed 2011 Appointment: Giuliana Manuel WPtel: [address] [place], [place] [phone] Other 07/13/2011 Patient Education: Patient Medication Summary Completed 07/13/2011 Patient Education: .Gage millan Diabetic meal planning guide Completed 07/13 Referral: [facility] [place] Referral Appointment Requested Referral: Duarte Catalan Referral Appointment Requested Referral: Dr. Willams WPtel: [address] [place], [place] [phone] [place] Referral Initiated Referral: [facility] W[facility]el: [phone] [facility] [place] Referral Initiated Instructions No Instructions
--- OUTSIDE RECORDS SUMMARY | 2018-01-03 00:07 | XMS REPORT ---
Author ARVIND Tom Organization [employer] Address Unknown Phone Unavailable Care Team Providers Care Product Technician Name Role Phone ARVIND YEAGER CP Unavailable Allergies No Known Allergies Problems Problem Type Condition Code Onset Dates Condition Status Assessment Encounter for PPD test Z11.1 Active Medications No Known Medications Procedures Procedure Coding System Code Date TB INTRADERMAL TEST CPT-4 97873 Oct 10, 2015 Results No Known Results Summary Purpose [employer] Submission
--- OUTSIDE RECORDS SUMMARY | 2018-01-03 00:08 | XMS REPORT | Continuity of Care Document ---
Author Author [facility] Organization [facility] Address Unknown Phone Unavailable Allergies Active Description Code Type Severity Reaction Onset Reported/Identified Relationship to Patient Clinical Status Yes NKANo Known Allergies NKA Miscellaneous Allergy Unknown N/A 05/03/2007 Yes etanercept [id number] Drug Allergy Moderate HTN 01/22/2016 Yes metoprolol [id number] Drug Allergy Mild N/A 01/22/2016 Yes triamterene [id number] Drug Allergy Unknown N/A 07/28/2016 Medications There is no data. Problems Date Dx Coded Attending Type Code Diagnosis Diagnosed By 09/02/2011 Ot 138 LATE EFFECT ACUTE POLIO 09/02/2011 Ot 401.9 HYPERTENSION NOS 09/02/2011 Ot 530.81 ESOPHAGEAL REFLUX 09/02/2011 Ot 696.1 OTHER PSORIASIS 09/02/2011 Ot 728.2 MUSC DISUSE ATROPHY NEC 09/02/2011 Ot 728.87 MUSCLE WEAKNESS (GENERALIZED) 09/02/2011 Ot V12.54 PERSONAL HX OF TIA, CEREBRAL INFARCTION 09/02/2011 Ot V43.64 HIP JOINT REPLACEMENT STATUS 09/02/2011 Ot V54.81 AFTERCARE FOLLOWING JOINT REPLACEMENT 09/02/2011 Ot V57.1 PHYSICAL THERAPY NEC 09/02/2011 Ot V57.21 ENCOUNTER FOR OCCUPATIONAL THERAPY 09/02/2011 Ot V58.61 ANTICOAGULANTS,LT,CURRENT USE 06/09/2014 BO VARGAS MD Ot 708.9 URTICARIA NOS 06/09/2014 BO VARGAS MD Ot 782.1 NONSPECIF SKIN ERUPT NEC 08/20/2014 MONICA GREGORIO MD Ot 427.9 10/02/2014 MONICA GREGORIO MD Ot 427.9 10/11/2014 MONICA GREGORIO MD Ot 427.9 11/17/2014 MONICA GREGORIO MD Ot 427.9 CARDIAC DYSRHYTHMIA NOS 01/02/2015 TOMI PARIS DO Ot 785.1 PALPITATIONS 01/02/2015 TOMI PARIS DO Ot V58.61 ANTICOAGULANTS,LT,CURRENT USE 01/02/2015 TOMI PARIS DO Ot V58.69 OTH MED,LT,CURRENT USE 12/08/2015 Ot 562.10 12/08/2015 Ot V12.72 12/08/2015 Ot V76.51 12/08/2015 Ot V76.12 12/08/2015 Ot 715.95 12/08/2015 Ot 959.6 12/08/2015 Ot 959.7 12/08/2015 Ot E000.8 12/08/2015 Ot E849.0 12/08/2015 Ot E888.9 12/08/2015 Ot V58.61 12/08/2015 Ot V58.83 12/08/2015 Ot V43.64 12/08/2015 Ot V58.61 12/08/2015 Ot V58.83 12/08/2015 Ot V43.64 12/08/2015 Ot V58.61 12/08/2015 Ot V58.83 12/08/2015 Ot 722.4 12/08/2015 Ot 780.4 12/08/2015 Ot V76.12 12/08/2015 JG RG, MONICA Reese Ot V76.12 12/08/2015 JG RG, MONICA Reese Ot 427.9 12/11/2015 LORRAINE LYNNC, ALI FACP CCDS Ot E78.0 12/11/2015 LORRAINE LYNNC, ALI FACP CCDS Ot I10 12/11/2015 LORRAINE LYNNC, ALI FACP CCDS Ot R00.2 12/11/2015 LORRAINE RG FACC, ALI FACP CCDS Ot R07.89 12/30/2015 LORRAINE RG FACC, ALI FACP CCDS Ot E78.0 12/30/2015 LORRAINE RG FACC, ALI FACP CCDS Ot I10 12/30/2015 LORRAINE LYNNC, ALI FACP CCDS Ot R00.2 12/30/2015 LORRAINE RG FACC, ALI FACP CCDS Ot R07.89 12/30/2015 LORRAINE RG FACC, ALI FACP CCDS Ot E78.0 12/30/2015 LORRAINE RG FACC, ALI FACP CCDS Ot I10 12/30/2015 LORRAINE RG FACC, ALI FACP CCDS Ot R00.2 12/30/2015 LORRAINE RG FAC, ALI FACP CCDS Ot R07.89 01/18/2016 BELEN WONG MD Ot G14 POSTPOLIO SYNDROME 01/18/2016 BELEN WONG MD Ot I10 ESSENTIAL (PRIMARY) HYPERTENSION 01/18/2016 BELEN WONG MD Ot R00.0 TACHYCARDIA, UNSPECIFIED 01/20/2016 LORRAINE RG FAC, ALI FACP CCDS Ot E78.0 PURE HYPERCHOLESTEROLEMIA 01/20/2016 LORRAINE RG FAC, ALI FACP CCDS Ot I10 ESSENTIAL (PRIMARY) HYPERTENSION 01/20/2016 LORRAINE RG FAC, ALI FACP CCDS Ot R00.2 PALPITATIONS 01/20/2016 LORRAINE GR FAC, ALI FACP CCDS Ot R07.89 OTHER CHEST PAIN 01/20/2016 LORRAINE RG FAC, ALI FACP CCDS Ot E78.0 PURE HYPERCHOLESTEROLEMIA 01/20/2016 LORRAINE RG FAC, ALI FACP CCDS Ot I10 ESSENTIAL (PRIMARY) HYPERTENSION 01/20/2016 LORRAINE RG [facility], ALI FACP CCDS Ot R00.2 PALPITATIONS 01/20/2016 LORRAINE RG FAC, ALI FACP CCDS Ot R07.89 OTHER CHEST PAIN 01/22/2016 MONICA GREGORIO MD Ot 427.9 CARDIAC DYSRHYTHMIA NOS 01/22/2016 BELEN WONG MD Ot L50.0 ALLERGIC URTICARIA 01/22/2016 BELEN WONG MD Ot T44.7X5A ADVERSE EFFECT OF BETA-ADRENORECEPTOR AN 01/22/2016 Ot V76.12 OTH SCREEN MAMMO-MALIGN NEOPLASM OF GWEN 01/22/2016 Ot 715.95 OSTEOARTHROS NOS-PELVIS 01/22/2016 Ot 959.6 HIP THIGH INJURY NOS 01/22/2016 Ot 959.7 LOWER LEG INJURY NOS 01/22/2016 Ot E000.8 OTHER EXTERNAL CAUSE STATUS 01/22/2016 Ot E849.0 ACCIDENT IN HOME 01/22/2016 Ot E888.9 FALL NOS 01/22/2016 Ot V58.61 ANTICOAGULANTS,LT,CURRENT USE 01/22/2016 Ot V58.83 ENCOUNTER FOR THERAPEUTIC DRUG MONITORIN 01/22/2016 Ot V43.64 HIP JOINT REPLACEMENT STATUS 01/22/2016 Ot V58.61 ANTICOAGULANTS,LT,CURRENT USE 01/22/2016 Ot V58.83 ENCOUNTER FOR THERAPEUTIC DRUG MONITORIN 01/22/2016 Ot V43.64 HIP JOINT REPLACEMENT STATUS 01/22/2016 Ot V58.61 ANTICOAGULANTS,LT,CURRENT USE 01/22/2016 Ot V58.83 ENCOUNTER FOR THERAPEUTIC DRUG MONITORIN 01/22/2016 Ot 722.4 CERVICAL DISC DEGEN 01/22/2016 Ot 780.4 DIZZINESS AND GIDDINESS 01/22/2016 Ot V76.12 OTH SCREEN MAMMO-MALIGN NEOPLASM OF GWEN 01/22/2016 MONICA GREGORIO MD Ot V76.12 OTH SCREEN MAMMO-MALIGN NEOPLASM OF GWEN 01/22/2016 JG RG, MONIAC Reese Ot 427.9 CARDIAC DYSRHYTHMIA NOS 01/22/2016 LORRAINE RG FAC, ALI FACP CCDS Ot E78.0 PURE HYPERCHOLESTEROLEMIA 01/22/2016 LORRAINE RG FACC, ALI FACP CCDS Ot I10 ESSENTIAL (PRIMARY) HYPERTENSION 01/22/2016 LORRAINE RG FACC, ALI FACP CCDS Ot R00.2 PALPITATIONS 01/22/2016 LORRAINE RG FACC, ALI FACP CCDS Ot R07.89 OTHER CHEST PAIN 01/22/2016 LORRAINE RG FACC, ALI FACP CCDS Ot E78.0 PURE HYPERCHOLESTEROLEMIA 01/22/2016 LORRAINE RG FACC, ALI FACP CCDS Ot I10 ESSENTIAL (PRIMARY) HYPERTENSION 01/22/2016 LORRAINE RG FACC, ALI FACP CCDS Ot R00.2 PALPITATIONS 01/22/2016 LORRAINE RG FAC, ALI FACP CCDS Ot R07.89 OTHER CHEST PAIN 04/02/2016 JAMAR DURAN DO Ot G47.33 OBSTRUCTIVE SLEEP APNEA (ADULT) (PEDIATR 04/03/2016 JAMAR DURAN DO Ot G47.33 OBSTRUCTIVE SLEEP APNEA (ADULT) (PEDIATR 04/03/2016 JAMAR DURAN DO Ot I10 ESSENTIAL (PRIMARY) HYPERTENSION 04/15/2016 JAMAR DURAN DO Ot G47.33 OBSTRUCTIVE SLEEP APNEA (ADULT) (PEDIATR 04/15/2016 JAMAR DURAN DO Ot I10 ESSENTIAL (PRIMARY) HYPERTENSION 07/17/2016 JAUN RG, TRAM Lozano Ot I10 ESSENTIAL (PRIMARY) HYPERTENSION 07/17/2016 JAUN RG, TRAM Lozano Ot R07.89 OTHER CHEST PAIN 07/17/2016 JAUN RG, TRAM Lozano Ot R10.30 LOWER ABDOMINAL PAIN, UNSPECIFIED 07/17/2016 JAUN RG, TRAM Lozano Ot Z79.82 DRYWALL HANGER (CURRENT) USE OF ASPIRIN 07/17/2016 JAUN RG TRAM Lozano Ot Z79.899 OTHER DRYWALL HANGER (CURRENT) DRUG THERAPY 07/19/2016 JAUN RG, TRAM Lozano Ot I10 ESSENTIAL (PRIMARY) HYPERTENSION 07/19/2016 JAUN RG, TRAM Lozano Ot R07.89 OTHER CHEST PAIN 07/19/2016 JAUN RG, TRAM Marta Ot R10.30 LOWER ABDOMINAL PAIN, UNSPECIFIED 07/19/2016 JAUN RG, TRAM Marta Ot Z79.82 JAIL (CURRENT) USE OF ASPIRIN 07/19/2016 JAUN RG, TRAM Marta Ot Z79.899 OTHER DRYWALL HANGER (CURRENT) DRUG THERAPY 07/28/2016 MONICA GREGORIO MD Ot 427.9 CARDIAC DYSRHYTHMIA NOS 07/28/2016 MONICA GREGORIO MD Ot 427.9 CARDIAC DYSRHYTHMIA NOS 07/28/2016 TRAM PERALTA MD Ot K21.9 GASTRO-ESOPHAGEAL REFLUX DISEASE WITHOUT 07/28/2016 TRAM PERALTA MD Ot R13.10 DYSPHAGIA, UNSPECIFIED 07/28/2016 TRAM PERALTA MD Ot Z01.818 ENCOUNTER FOR OTHER PREPROCEDURAL EXAMIN 07/29/2016 TRAM PERALTA MD Ot K21.9 GASTRO-ESOPHAGEAL REFLUX DISEASE WITHOUT 07/29/2016 TRAM PERALTA MD Ot R13.10 DYSPHAGIA, UNSPECIFIED 07/29/2016 TRAM PERALTA MD Ot Z01.818 ENCOUNTER FOR OTHER PREPROCEDURAL EXAMIN 07/30/2016 TRAM PERALTA MD Ot K29.50 UNSPECIFIED CHRONIC GASTRITIS WITHOUT BL 08/19/2016 TRAM PERALTA MD Ot K29.50 UNSPECIFIED CHRONIC GASTRITIS WITHOUT BL 10/28/2016 Ot V58.61 ANTICOAGULANTS,LT,CURRENT USE 10/28/2016 Ot V58.83 ENCOUNTER FOR THERAPEUTIC DRUG MONITORIN 10/28/2016 Ot V43.64 HIP JOINT REPLACEMENT STATUS 10/28/2016 Ot V58.61 ANTICOAGULANTS,LT,CURRENT USE 10/28/2016 Ot V58.83 ENCOUNTER FOR THERAPEUTIC DRUG MONITORIN 10/28/2016 Ot V43.64 HIP JOINT REPLACEMENT STATUS 10/28/2016 Ot V58.61 ANTICOAGULANTS,LT,CURRENT USE 10/28/2016 Ot V58.83 ENCOUNTER FOR THERAPEUTIC DRUG MONITORIN 10/28/2016 Ot 722.4 CERVICAL DISC DEGEN 10/28/2016 Ot 780.4 DIZZINESS AND GIDDINESS 10/28/2016 Ot V76.12 OTH SCREEN MAMMO-MALIGN NEOPLASM OF GWEN 10/28/2016 MONICA GREGORIO MD Ot V76.12 OTH SCREEN MAMMO-MALIGN NEOPLASM OF GWEN 10/28/2016 MONICA GREGORIO MD Ot 427.9 CARDIAC DYSRHYTHMIA NOS 10/28/2016 LORRAINE RG FAC, ALI FACP CCDS Ot E78.0 PURE HYPERCHOLESTEROLEMIA 10/28/2016 LORRAINE RG FACC, ALI FACP CCDS Ot I10 ESSENTIAL (PRIMARY) HYPERTENSION 10/28/2016 LORRAINE RG FACC, ALI FACP CCDS Ot R00.2 PALPITATIONS 10/28/2016 LORRAINE RG FAC, ALI FACP CCDS Ot R07.89 OTHER CHEST PAIN 10/28/2016 LORRAINE RG FACC, ALI FACP CCDS Ot E78.0 PURE HYPERCHOLESTEROLEMIA 10/28/2016 LORRAINE RG FACC, ALI FACP CCDS Ot I10 ESSENTIAL (PRIMARY) HYPERTENSION 10/28/2016 LORRAINE RG FAC, ALI FACP CCDS Ot R00.2 PALPITATIONS 10/28/2016 LORRAINE RG FACC, ALI FACP CCDS Ot R07.89 OTHER CHEST PAIN 10/28/2016 OLMAN NORTON BANDER AND CELLOPHANER MACHINE Ot Z12.31 ENCNTR SCREEN MAMMOGRAM FOR MALIGNANT NE 10/28/2016 OLMAN NORTON BANDER AND CELLOPHANER MACHINE Ot Z12.31 ENCNTR SCREEN MAMMOGRAM FOR MALIGNANT NE 11/01/2016 OLMAN NORTON BANDER AND CELLOPHANER MACHINE Ot Z12.31 ENCNTR SCREEN MAMMOGRAM FOR MALIGNANT NE 11/01/2016 OLMAN NORTON BANDER AND CELLOPHANER MACHINE Ot Z12.31 ENCNTR SCREEN MAMMOGRAM FOR MALIGNANT NE 11/23/2016 OLMAN NORTON BANDER AND CELLOPHANER MACHINE Ot Z12.31 ENCNTR SCREEN MAMMOGRAM FOR MALIGNANT NE 11/29/2016 MARVIN RG, BELEN Mack Ot E87.6 HYPOKALEMIA 11/29/2016 BELEN WONG MD Ot I10 ESSENTIAL (PRIMARY) HYPERTENSION 11/29/2016 BELEN WONG MD Ot J90 PLEURAL EFFUSION, NOT ELSEWHERE CLASSIFI 11/29/2016 BELEN WONG MD Ot R53.1 WEAKNESS 11/29/2016 BELEN WONG MD Ot R55 SYNCOPE AND COLLAPSE 11/29/2016 BELEN WONG MD Ot R91.8 OTHER NONSPECIFIC ABNORMAL FINDING OF KOFI 11/29/2016 BELEN WONG MD Ot Z79.899 OTHER JAIL (CURRENT) DRUG THERAPY 12/03/2016 BELEN WONG MD Ot E87.6 HYPOKALEMIA 12/03/2016 BELEN WONG MD Ot I10 ESSENTIAL (PRIMARY) HYPERTENSION 12/03/2016 BELEN WONG MD Ot J90 PLEURAL EFFUSION, NOT ELSEWHERE CLASSIFI 12/03/2016 BELEN WONG MD Ot R53.1 WEAKNESS 12/03/2016 BELEN WONG MD Ot R55 SYNCOPE AND COLLAPSE 12/03/2016 BELEN WONG MD Ot R91.8 OTHER NONSPECIFIC ABNORMAL FINDING OF KOFI 12/03/2016 BELEN WONG MD Ot Z79.899 OTHER JAIL (CURRENT) DRUG THERAPY 04/13/2017 Ot 722.4 CERVICAL DISC DEGEN 04/13/2017 Ot 780.4 DIZZINESS AND GIDDINESS 04/13/2017 Ot V76.12 OTH SCREEN MAMMO-MALIGN NEOPLASM OF GWEN 04/13/2017 MONICA GREGOIRO MD Ot V76.12 OTH SCREEN MAMMO-MALIGN NEOPLASM OF GWEN 04/13/2017 MONICA GREGORIO MD Ot 427.9 CARDIAC DYSRHYTHMIA NOS 04/13/2017 LORRAINE RG FACC, ALI FACP CCDS Ot E78.0 PURE HYPERCHOLESTEROLEMIA 04/13/2017 LORRAINE RG FACC, ALI FACP CCDS Ot I10 ESSENTIAL (PRIMARY) HYPERTENSION 04/13/2017 LORRAINE RG FACC, ALI FACP CCDS Ot R00.2 PALPITATIONS 04/13/2017 LORRAINE RG FACC, ALI FACP CCDS Ot R07.89 OTHER CHEST PAIN 04/13/2017 LORRAINE RG FACC, ALI FACP CCDS Ot E78.0 PURE HYPERCHOLESTEROLEMIA 04/13/2017 LORRAINE RG [facility] CCDS Ot I10 ESSENTIAL (PRIMARY) HYPERTENSION 04/13/2017 LORRAINE RG [facility] CCDS Ot R00.2 PALPITATIONS 04/13/2017 LORRAINE RG [facility] CCDS Ot R07.89 OTHER CHEST PAIN 04/13/2017 OLMAN NORTON EDILSON Ot Z12.31 ENCNTR SCREEN MAMMOGRAM FOR MALIGNANT NE 04/18/2017 JONI LAURENT URANIUM PROCESSING SUPERVISOR Ot R91.1 SOLITARY PULMONARY NODULE 05/06/2017 JONI LAURENT URANIUM PROCESSING SUPERVISOR Ot R91.1 SOLITARY PULMONARY NODULE 05/12/2017 JONI LAURENT URANIUM PROCESSING SUPERVISOR Ot R91.1 SOLITARY PULMONARY NODULE Procedures There is no data. Results Test Result Range Complete blood count (CBC) with automated white blood cell (WBC) differential - 07/17/16 16:55 Blood leukocytes automated count (number/volume) 8.7 10*3/uL 4.3-11.0 Blood erythrocytes automated count (number/volume) 4.39 10*6/uL 4.35-5.85 Venous blood hemoglobin measurement (mass/volume) 13.1 g/dL 11.5-16.0 Blood hematocrit (volume fraction) 38 % 35-52 Automated erythrocyte mean corpuscular volume 87 [foz_us] 80-99 Automated erythrocyte mean corpuscular hemoglobin (mass per erythrocyte) 30 pg 25-34 Automated erythrocyte mean corpuscular hemoglobin concentration measurement ( mass/volume) 34 g/dL 32-36 Automated erythrocyte distribution width ratio 13.5 % 10.0-14.5 Automated blood platelet count (count/volume) 233 10*3/uL 130-400 Automated blood platelet mean volume measurement 10.5 [foz_us] 7.4-10.4 Automated blood neutrophils/100 leukocytes 60 % 42-75 Automated blood lymphocytes/100 leukocytes 28 % 12-44 Blood monocytes/100 leukocytes 10 % 0-12 Automated blood eosinophils/100 leukocytes 1 % 0-10 Automated blood basophils/100 leukocytes 1 % 0-10 Blood neutrophils automated count (number/volume) 5.3 10*3 1.8-7.8 Blood lymphocytes automated count (number/volume) 2.5 10*3 1.0-4.0 Blood monocytes automated count (number/volume) 0.8 10*3 0.0-1.0 Automated eosinophil count 0.1 10*3/uL 0.0-0.3 Automated blood basophil count (count/volume) 0.0 10*3/uL 0.0-0.1 PT panel in platelet poor plasma by coagulation assay - 07/17/16 16:55 Prothrombin time (PT) in platelet poor plasma by coagulation assay 12.6 s 12.2-14.7 INR in platelet poor plasma or blood by coagulation assay 1.0 0.8-1.4 Activated partial thromboplastin time (aPTT) in platelet poor plasma bycoagulation assay - 07/17/16 16:55 Activated partial thromboplastin time (aPTT) in platelet poor plasma bycoagulation assay 25 s 24-35 Comprehensive metabolic panel - 07/17/16 16:55 Serum or plasma sodium measurement (moles/volume) 141 mmol/L 135-145 Serum or plasma potassium measurement (moles/volume) 3.8 mmol/L 3.6-5.0 Serum or plasma chloride measurement (moles/volume) 108 mmol/L 98-107 Carbon dioxide 24 mmol/L 21-32 Serum or plasma anion gap determination (moles/volume) 9 mmol/L 5-14 Serum or plasma urea nitrogen measurement (mass/volume) 19 mg/dL 7-18 Serum or plasma creatinine measurement (mass/volume) 0.79 mg/dL 0.60-1.30 Serum or plasma urea nitrogen/creatinine mass ratio 24 NRG Serum or plasma creatinine measurement with calculation of estimated glomerular filtration rate > NRG Serum or plasma glucose measurement (mass/volume) 96 mg/dL 70-105 Serum or plasma calcium measurement (mass/volume) 9.3 mg/dL 8.5-10.1 Serum or plasma total bilirubin measurement (mass/volume) 0.5 mg/dL 0.1-1.0 Serum or plasma alkaline phosphatase measurement (enzymatic activity/volume) 56 U/L 40-136 Serum or plasma aspartate aminotransferase measurement (enzymatic activity/ volume) 22 U/L 5-34 Serum or plasma alanine aminotransferase measurement (enzymatic activity/volume ) 24 U/L 0-55 Serum or plasma protein measurement (mass/volume) 6.0 g/dL 6.4-8.2 Serum or plasma albumin measurement (mass/volume) 3.7 g/dL 3.2-4.5 Magnesium - 07/17/16 16:55 Magnesium 2.0 mg/dL 1.8-2.4 Serum or plasma troponin i.cardiac measurement (mass/volume) - 07/17/16 16:55 Serum or plasma troponin i.cardiac measurement (mass/volume) < ng/ mL <0.30 Myoglobin, serum - 07/17/16 16:55 Myoglobin, serum 46.3 ng/mL 10.0-92.0 Lipase - 07/17/16 16:55 Lipase 46 U/L 8-78 Complete blood count (CBC) with automated white blood cell (WBC) differential - 11/29/16 11:05 Blood leukocytes automated count (number/volume) 11.1 10*3/uL 4.3-11.0 Blood erythrocytes automated count (number/volume) 4.92 10*6/uL 4.35-5.85 Venous blood hemoglobin measurement (mass/volume) 14.8 g/dL 11.5-16.0 Blood hematocrit (volume fraction) 42 % 35-52 Automated erythrocyte mean corpuscular volume 85 [foz_us] 80-99 Automated erythrocyte mean corpuscular hemoglobin (mass per erythrocyte) 30 pg 25-34 Automated erythrocyte mean corpuscular hemoglobin concentration measurement ( mass/volume) 35 g/dL 32-36 Automated erythrocyte distribution width ratio 13.8 % 10.0-14.5 Automated blood platelet count (count/volume) 226 10*3/uL 130-400 Automated blood platelet mean volume measurement 10.7 [foz_us] 7.4-10.4 Automated blood neutrophils/100 leukocytes 72 % 42-75 Automated blood lymphocytes/100 leukocytes 17 % 12-44 Blood monocytes/100 leukocytes 11 % 0-12 Automated blood eosinophils/100 leukocytes 0 % 0-10 Automated blood basophils/100 leukocytes 0 % 0-10 Blood neutrophils automated count (number/volume) 7.9 10*3 1.8-7.8 Blood lymphocytes automated count (number/volume) 1.9 10*3 1.0-4.0 Blood monocytes automated count (number/volume) 1.2 10*3 0.0-1.0 Automated eosinophil count 0.0 10*3/uL 0.0-0.3 Automated blood basophil count (count/volume) 0.0 10*3/uL 0.0-0.1 Fibrin D-dimer FEU measurement in platelet poor plasma (mass/volume) - 11:05 Fibrin D-dimer FEU measurement in platelet poor plasma (mass/volume) 0.96 ug/mL 0.00-0.49 Comprehensive metabolic panel - 11/29/16 11:05 Serum or plasma sodium measurement (moles/volume) 140 mmol/L 135-145 Serum or plasma potassium measurement (moles/volume) 3.1 mmol/L 3.6-5.0 Serum or plasma chloride measurement (moles/volume) 104 mmol/L 98-107 Carbon dioxide 20 mmol/L 21-32 Serum or plasma anion gap determination (moles/volume) 16 mmol/L 5-14 Serum or plasma urea nitrogen measurement (mass/volume) 21 mg/dL 7-18 Serum or plasma creatinine measurement (mass/volume) 0.75 mg/dL 0.60-1.30 Serum or plasma urea nitrogen/creatinine mass ratio 28 NRG Serum or plasma creatinine measurement with calculation of estimated glomerular filtration rate > NRG Serum or plasma glucose measurement (mass/volume) 88 mg/dL 70-105 Serum or plasma calcium measurement (mass/volume) 9.7 mg/dL 8.5-10.1 Serum or plasma total bilirubin measurement (mass/volume) 0.7 mg/dL 0.1-1.0 Serum or plasma alkaline phosphatase measurement (enzymatic activity/volume) 68 U/L 40-136 Serum or plasma aspartate aminotransferase measurement (enzymatic activity/ volume) 26 U/L 5-34 Serum or plasma alanine aminotransferase measurement (enzymatic activity/volume ) 39 U/L 0-55 Serum or plasma protein measurement (mass/volume) 6.3 g/dL 6.4-8.2 Serum or plasma albumin measurement (mass/volume) 3.7 g/dL 3.2-4.5 Magnesium - 11/29/16 11:05 Magnesium 2.0 mg/dL 1.8-2.4 Serum or plasma troponin i.cardiac measurement (mass/volume) - 11/29/16 11:05 Serum or plasma troponin i.cardiac measurement (mass/volume) < ng/ mL <0.30 THYROID STIMULATING HORMONE - 11/29/16 11:05 THYROID STIMULATING HORMONE 3.23 u[iU]/mL 0.35-4.94 Serum or plasma C reactive protein measurement (mass/volume) - 11/29/16 11:05 Serum or plasma C reactive protein measurement (mass/volume) 0.36 mg /dL 0.00-0.50 Complete urinalysis with reflex to culture - 11/29/16 11:10 Urine color determination YELLOW NRG Urine clarity determination SLIGHTLY CLOUDY NRG Urine pH measurement by test strip 6.5 5-9 Specific gravity of urine by test strip 1.010 1.016- 1.022 Urine protein assay by test strip, semi-quantitative NEGATIVE NEGATIVE Urine glucose detection by automated test strip NEGATIVE NEGATIVE Erythrocytes detection in urine sediment by light microscopy NEGATIVE NEGATIVE Urine ketones detection by automated test strip NEGATIVE NEGATIVE Urine nitrite detection by test strip NEGATIVE NEGATIVE Urine total bilirubin detection by test strip NEGATIVE NEGATIVE Urine urobilinogen measurement by automated test strip (mass/volume) NORMAL NORMAL Urine leukocyte esterase detection by dipstick 1+ NEGATIVE Automated urine sediment erythrocyte count by microscopy (number/high power field) NONE NRG Automated urine sediment leukocyte count by microscopy (number/high power field ) NONE NRG Bacteria detection in urine sediment by light microscopy NEGATIVE NRG Squamous epithelial cells detection in urine sediment by light microscopy 0-2 NRG Crystals detection in urine sediment by light microscopy NONE NRG Casts detection in urine sediment by light microscopy NONE NRG Mucus detection in urine sediment by light microscopy NEGATIVE NRG Complete urinalysis with reflex to culture NO NRG Encounters ACCT No. Visit Date/Time Discharge Status Pt. Type Provider Facility Loc./Unit Complaint [id number] 07/27/2017 09:35:00 07/27/2017 23:59:59 CLS Preadmit MONICA GREGORIO MD [facility] RAD POSSIBLE CERVICAL CRUSH INJ [id number] 04/15/2017 13:40:00 04/15/2017 23:59:59 CLS Outpatient JONI LAURENT [facility] RAD PULMONARY NODULES [id number] 11/29/2016 09:45:00 11/29/2016 15:02:00 DIS Emergency MARVIN RG, BELEN Mack [facility] ER WEAKNESS [id number] 10/29/2016 13:45:00 10/29/2016 23:59:59 CLS Outpatient OLMAN NORTON APRN [facility] RAD SCREENING [id number] 07/30/2016 07:07:00 07/30/2016 10:25:00 DIS Outpatient TRAM PERALTA MD [facility] SDC REFLUX [id number] 07/28/2016 05:36:00 07/28/2016 14:12:00 DIS Outpatient TRAM PERALTA MD [facility] PREOP GERD [id number] 07/17/2016 16:41:00 07/17/2016 18:09:00 DIS Emergency TRAM ZAMORANO MD [facility] ER CHEST TIGHTNESS, SHAKING, ANXIETY POSS FROM MEDS [id number] 04/02/2016 20:13:00 04/03/2016 06:30:00 DIS Outpatient JAMAR DURAN DO [facility] SLEEP SHONNA,HYPERSOMNIA,HTN, SLEEP DISTURBANCE [id number] 01/22/2016 21:44:00 01/22/2016 23:03:00 DIS Emergency BELEN WONG MD [facility] ER ALERGIC REACTION [id number] 01/18/2016 10:36:00 01/18/2016 13:40:00 DIS Emergency BELEN WONG MD [facility] ER ELEVATED HEART RATE, DIZZINESS, POSS MED REACTION [id number] 12/09/2015 11:34:00 12/09/2015 23:59:59 CLS Outpatient JAKUB PETERS MD, FACC, FACP CCDS [facility] CARD PALPATATIONS [id number] 12/08/2015 14:28:00 12/08/2015 23:59:59 CLS Outpatient JAKUB PETERS MD, FACC, FACP CCDS [facility] CARD PALPATATIONS [id number] 01/02/2015 13:29:00 01/02/2015 15:05:00 DIS Emergency TOMI PARIS DO [facility] ER HEART PALPITATIONS [id number] 11/18/2014 08:00:00 11/18/2014 23:59:59 CLS Preadmit MONICA GREGORIO MD [facility] CARD ARRYTHMIA [id number] 08/19/2014 07:52:00 11/17/2014 00:01:00 DIS Outpatient MONICA GREGORIO MD [facility] CARD ARRYTHMIA [id number] 06/09/2014 22:47:00 06/09/2014 23:50:00 DIS Emergency BO VARGAS MD [facility] ER ALLERGIC REACTION [id number] 05/07/2014 09:04:00 05/07/2014 23:59:59 CLS Outpatient MONICA GREGORIO MD [facility] RAD SCREENING [id number] 12/08/2015 14:28:00 Document Registration [id number] 12/08/2015 14:28:00 Document Registration [id number] 01/19/2013 10:53:00 Document Registration [id number] 04/13/2012 10:08:00 Document Registration [id number] 09/09/2011 11:10:00 Document Registration [id number] 09/06/2011 11:00:00 Document Registration [id number] 09/03/2011 10:25:00 Document Registration [id number] 08/27/2011 14:58:00 Document Registration [id number] 05/04/2011 08:47:00 Document Registration [id number] 04/12/2011 14:35:00 Document Registration [id number] 06/26/2010 11:30:00 Document Registration [id number] 08/03/2017 00:45:09 08/03/2017 23:59:59 CLS Outpatient [id number] 01/02/2015 13:30:13 ACT Document Registration
--- NOTE | 2018-01-03 01:07 | ED Cardiac General ---
History of Present Illness General Chief Complaint: Cardiac/General Problems Stated Complaint: HIGH BLOOD PRESSURE 191/87 Nursing Triage Note: PT TO ED 8 W/ C/O HYPERTENSION CHRONIC, WORSE THIS EVENING. PT REPORTS SHE "DIDN'T FEEL WELL" EARLIER THIS EVENING, TOOK HER B/P, IT WAS ELEVATED SO SHE TOOK HALF A CLONIDINE. STATES CHECKED IT AGAIN 30 MIN LATER, NO IMPROVEMENT SO SHE TOOK HALF OF ANOTHER CLONIDINE. PT REPORTS SHE CONTINUED TO CHECK HER B/P THROUGHOUT THE EVENING AND TAKING ADDITIONAL MEDS TO IF IT WOULD HELP. DENIES IMPROVEMENT History of Present Illness Date Seen by Provider: Jan 03, 2018 Time Seen by Provider: 00:56 Initial Comments The patient presents to the ER by private conveyance with a chief complaint she has high blood pressure and chest palpitations. She's had these palpitations periodically in the past and had them worked up by Dr. Perez, cardiology but nothing was found on the monitors. She is not on a blood thinner. She does not have a history of atrial fibrillation. She is not having any chest pain, shortness breath, nausea, sweats, chills. She says that she missed her noon meds for blood pressure and started feeling the symptoms around 5 or 6. She started taking her medications one at a time every hour when she checked her blood pressure and find that it was elevated above 160 systolic. He got to the peak of 191. She took her clonidine as well as her other medications and by the time she got here her palpitations as well as her blood pressure had resolved. She is not having any symptoms currently. She does not have any neurologic symptoms of weakness and numbness, double vision, blurred vision, gait instability. 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 Allergies and Home Medications Allergies Coded Allergies: etanercept (Verified Allergy, Intermediate, HTN, 01/22/16) metoprolol (Verified Allergy, Mild, 01/22/16) triamterene (Verified Allergy, Unknown, 07/28/16) Home Medications Cholecalciferol (Vitamin D3) 5,000 Unit Tablet, 5,000 UNIT PO WEEKLY, (Reported) Cinnamon Bark 500 Mg Capsule, 500 MG PO DAILY, (Reported) Clonidine HCl 0.1 Mg Tablet, 0.1 MG PO BID Prescribed by: BELEN WONG on 01/18/16 1329 Diphenhydramine HCl 25 Mg Capsule, 25 MG PO PRN, (Reported) Doxazosin Mesylate 1 Mg Tablet, 1 MG PO BID, (Reported) Famotidine 40 Mg Tablet, 40 MG PO DAILY Prescribed by: TRAM ZAMORANO MD on 07/17/16 1802 Hydrochlorothiazide 12.5 Mg Cap, 12.5 MG PO DAILY, (Reported) Losartan Potassium 50 Mg Tablet, 50 MG PO BID, (Reported) [place]-3 Fatty Acids/Fish Oil 1 Each Capsule.dr, 1 EACH PO DAILY, (Reported) Patient Home Medication List Home Medication List Reviewed: Yes Review of Systems Constitutional: No chills, No diaphoresis, No fever, No malaise EENTM: No Blurred Vision, No Double Vision Respiratory: Denies Cough, Denies Shortness of Air Cardiovascular: Denies Chest Pain, Denies Edema, Irregular Heart Rate, Denies Lightheadedness, Palpitations Gastrointestinal: Denies Abdominal Pain, Denies Constipated, Denies Diarrhea, Denies Nausea Genitourinary: Denies Burning, Denies Discharge Musculoskeletal: No back pain, No joint pain Skin: No pruritus, No rash Psychiatric/Neurological: Denies Headache, Denies Numbness Past Bfaspog-Dsilbl-Wupjtc Hx Patient Social History Alcohol Use: Denies Use Recreational Drug Use: No Smoking Status: Never a Smoker Recent Foreign Travel: No Contact w/Someone Who Travel: No Recent Infectious Disease Expo: No Recent Hopitalizations: No Physical Abuse: No Sexual Abuse: No Mistreated: No Fear: No Immunizations Up To Date Tetanus Booster (TDap): Unknown Date of Influenza Vaccine: Jul 21, 2016 Seasonal Allergies Seasonal Allergies: No Surgeries History of Surgeries: Yes (EGD/COLONOSCOPY, BACK SURGERY) Surgeries: Gallbladder, Hysterectomy, Joint Replacement Respiratory History of Respiratory Disorde: No Cardiovascular History of Cardiac Disorders: Yes (ELEVATED TRIGLYCERIDES) Cardiac Disorders: Chronic Edema/Swelling, High Cholesterol, Hypertension, Palpitations Neurological History of Neurological Disord: Yes (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) Neurological Disorders: TIA, Vertigo Reproductive System Hx Reproductive Disorders: Yes (BENIGN TUMOR -HYSTERECTOMY AGE 29) Sexually Transmitted Disease: No HIV/AIDS: No FISHING HAND History: Hysterectomy Gastrointestinal History of Gastrointestinal Di: Yes Gastrointestinal Disorders: Gastroesophageal Reflux, Chronic Constipation Musculoskeletal History of Musculoskeletal Dis: Yes (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) Musculoskeletal Disorders: Arthritis, Chronic Back Pain, Contracture Endocrine History of Endocrine Disorders: No HEENT Loss of Vision: Bilateral Hearing Impairment: Denies Cancer History of Cancer: No Psychosocial History of Psychiatric Problem: No Suicide Risk Score: 0 Integumentary History of Skin or Integumenta: Yes Skin/Integumentary Disorders: Psoriasis Blood Transfusions History of Blood Disorders: No Adverse Reaction to a Blood Tr: No (N/A) Family Medical History Significant Family History: No Pertinent Family Hx Physical Exam Vital Signs Vital Signs - First Documented 01/03/18 00:17 Temp 95.5 Pulse 79 Resp 20 B/P (MAP) 161/77 (105) Pulse Ox 97 O2 Delivery Room Air Capillary Refill : Less Than 3 Seconds General Appearance: No Apparent Distress, WD/WN HEENT: PERRL/EOMI, Pharynx Normal Neck: Full Range of Motion, Normal Inspection, Non Tender, Supple Respiratory: Chest Non Tender, Lungs Clear, Normal Breath Sounds, No Accessory Muscle Use, No Respiratory Distress Cardiovascular: Regular Rate, Rhythm, No Edema, Normal Peripheral Pulses Gastrointestinal: Non Tender, Soft Extremity: Normal Capillary Refill, Normal Inspection, Non Tender, No Pedal Edema Neurologic/Psychiatric: Alert, Oriented x3 Skin: Normal Color, Warm/Dry Progress/Results/Core Measures Results/Orders Lab Results Laboratory Tests Test 01/03/18 01:25 Range/Units White Blood Count 8.6 4.3-11.0 10^3/uL Red Blood Count 4.50 4.35-5.85 10^6/uL Hemoglobin 13.8 11.5-16.0 G/DL Hematocrit 40 35-52 % Mean Corpuscular Volume 89 80-99 FL Mean Corpuscular Hemoglobin 31 25-34 PG Mean Corpuscular Hemoglobin Concent 35 32-36 G/DL Red Cell Distribution Width 13.9 10.0-14.5 % Platelet Count 285 130-400 10^3/uL Mean Platelet Volume 10.6 H 7.4-10.4 FL Sodium Level 140 135-145 MMOL/L Potassium Level 3.9 3.6-5.0 MMOL/L Chloride Level 106 98-107 MMOL/L Carbon Dioxide Level 22 21-32 MMOL/L Anion Gap 12 5-14 MMOL/L Blood Urea Nitrogen 19 H 7-18 MG/DL Creatinine 0.88 0.60-1.30 MG/DL Estimat Glomerular Filtration Rate > 60 BUN/Creatinine Ratio 22 Glucose Level 108 H 70-105 MG/DL Calcium Level 9.6 8.5-10.1 MG/DL Total Bilirubin 0.6 0.1-1.0 MG/DL Aspartate Amino Transf (AST/SGOT) 23 5-34 U/L Alanine Aminotransferase (ALT/SGPT) 26 0-55 U/L Alkaline Phosphatase 63 40-136 U/L Troponin I < 0.30 <0.30 NG/ML Total Protein 6.4 6.4-8.2 GM/DL Albumin 3.9 3.2-4.5 GM/DL My Orders Orders - DAYAMI BRUMFIELD Jose Cbc No Diff (01/03/18 01:04) Comprehensive Metabolic Panel (01/03/18 01:04) Troponin I (01/03/18 01:04) Ekg Tracing (01/03/18 01:04) Continuous Ekg Monitoring (01/03/18 01:04) Vital Signs/I&O Vital Sign - Last 12Hours 01/03/18 00:17 Temp 95.5 Pulse 79 Resp 20 B/P (MAP) 161/77 (105) Pulse Ox 97 O2 Delivery Room Air Blood Pressure Mean: 105 Progress Note : Time: 01:52 Progress Note We didn't catch any dysrhythmias on her initial EKG we'll keep her on the monitor for short bit while we get some lab work and a troponin see if anything electrolytes are off for anemia with be contributing to her palpitations. She's had a workup outpatient before for this and not found anything that may not be related to her heart but she's not having any gastrointestinal distress or other concerns as her symptoms have abated. Her palpitations and high blood pressure do seem to have a temporal relationship with her missing of her medications and then catching up with them causing them to go away. ECG Initial ECG Impression Date: Jan 03, 2018 Initial ECG Impression Time: 01:02 Initial ECG Rate: 57 Initial ECG Rhythm: Normal Sinus Initial ECG Intervals: Normal Initial ECG Impression: Normal Initial ECG Comparisson: Unchanged Comment No ST segment elevation or depression. Departure Impression Impression: Primary Impression: Hypertension Qualified Codes: I10 - Essential (primary) hypertension Additional Impression: Palpitations Disposition: 01 HOME, SELF-CARE Condition: Stable Departure-Patient Inst. Decision time for Depature: 02:30 Referrals: MONICA GREGORIO MD (PCP/Family) Primary Care Physician Patient Instructions: Palpitations (DC) Add. Discharge Instructions: Follow-up with your primary care physician or the hydrologist outpatient within the next 2-4 weeks. Discuss your blood pressure medicines as well as her palpitations and any further management. All discharge instructions reviewed with patient and/or family. Voiced understanding. Copy Copies To 1: MONICA GREGORIO MD; JAKUB PETERS MD [facility] DAYAMI BRUMFIELD Jan 03, 2018 01:07
[2018-01-03 01:35] LABS: HEMOGLOBIN 13.8 G/DL (11.5-16.0); MEAN PLATELET VOLUME 10.6 FL (7.4-10.4); RED BLOOD COUNT 4.5 10^6/uL (4.35-5.85); RED CELL DISTRIBUTION WIDTH 13.9 % (10.0-14.5); WHITE BLOOD COUNT 8.6 10^3/uL (4.3-11.0)
[2018-01-03 01:53] LABS: ALANINE AMINOTRANSFERASE 26 U/L (0-55); ALBUMIN 3.9 GM/DL (3.2-4.5); ALKALINE PHOSPHATASE 63 U/L (40-136); BILIRUBIN,TOTAL 0.6 MG/DL (0.1-1.0); BUN/CREATININE RATIO 22; CALCIUM 9.6 MG/DL (8.5-10.1); CARBON DIOXIDE 22 MMOL/L (21-32); CHLORIDE 106 MMOL/L (98-107); CREATININE SERUM 0.88 MG/DL (0.60-1.30); GFR ESTIMATED > 60; GLUCOSE 108 MG/DL (70-105); POTASSIUM 3.9 MMOL/L (3.6-5.0); SODIUM 140 MMOL/L (135-145); TOTAL PROTEIN 6.4 GM/DL (6.4-8.2)
[2018-01-03 02:46] VITALS: BP 136/71
== END 2018-01-03 02:46 | disposition home or self-care (01) ==
LOC: EDUNIT# 23:56 → ER 23:58
DX: I10 Essential (primary) hypertension (principal); R00.2 Palpitations; K21.9 Gastro-esophageal reflux disease without esophagitis; K59.09 Other constipation; E78.00 Pure hypercholesterolemia, unspecified; R60.0 Localized edema; Z86.018 Personal history of other benign neoplasm; Z90.710 Acquired absence of both cervix and uterus; Z86.73 Personal history of transient ischemic attack (TIA), and cerebral infarction without residual deficits; Z88.8 Allergy status to other drugs, medicaments and biological substances
CPT/HCPCS: 36415; 80053; 84484; 85027; 93005

== ENCOUNTER 2019-01-08 12:49 | Outpatient (RCR) | payer MEDICARE, OTHER ==
[~2019-01-08 12:49] MED LIST changes: -LOSA50TA36 PO; +LOSA50TA63 PO
== END 2019-01-08 13:30 | disposition home or self-care (01) ==
PROVIDERS: ATTEND Nurse Practitioner Family
DX: M25.511 Pain in right shoulder (principal); Z98.890 Other specified postprocedural states

== ENCOUNTER → 2019-01-22 | Outpatient (CLI) | payer MEDICARE, OTHER ==
--- NOTE | 2019-01-22 12:18 | Diagnostic Imaging Report ---
INDICATION: Routine screening. COMPARISON: 10/29/2016 and 05/07/2014. TECHNIQUE: 2D and 3D bilateral screening mammography was performed with CAD. FINDINGS: Scattered fibroglandular densities are identified bilaterally. Benign-appearing parenchymal and vascular calcifications are again noted bilaterally. The circumscribed nodular densities appear to be stable and consistent with benign etiologies. No spiculated mass or malignant appearing microcalcifications are seen. The axillae are unremarkable. IMPRESSION: No mammographic features suspicious for malignancy are identified. ACR BI-RADS Category 2: Benign findings. Result letter will be mailed to the patient. Note: At least 10% of breast cancer is not imaged by mammography. Dictated by: Dictated on workstation # [id number]
== END ==
LOC: RAD 09:51
PROVIDERS: ATTEND Nurse Practitioner Family
DX: Z12.31 Encounter for screening mammogram for malignant neoplasm of breast (principal)
CPT/HCPCS: 77067

== ENCOUNTER → 2019-03-19 | Outpatient (CLI) | payer MEDICARE, OTHER ==
--- NOTE | 2019-03-19 16:45 | Diagnostic Imaging Report ---
INDICATION: Right lower leg pain. History of multiple falls. COMPARISON: None available. TECHNIQUE: AP and lateral views of the right tibia and fibula were obtained. FINDINGS: Smooth periosteal reaction is present in the proximal to mid right fibular shaft. No fracture line is appreciated. No tibial fracture. Ankle and knee are normal in alignment. IMPRESSION: 1. Suggestion of smooth periosteal reaction of the proximal fibular shaft could relate to healing fracture. Dictated by: Dictated on workstation # [id number]
--- NOTE | 2019-03-19 16:48 | Diagnostic Imaging Report ---
INDICATION: Right knee pain with history of multiple falls. COMPARISON: Right tibial and fibular radiographs performed concurrently. TECHNIQUE: Three views of the right knee were obtained. FINDINGS: No fracture or malalignment. No knee joint effusion or mineralized intra-articular bodies. Suprapatellar enthesopathy is present. The joint spaces are fairly well-preserved. IMPRESSION: 1. No acute osseous abnormality of the right knee. 2. Please see the tibia and fibula report for features of periosteal reaction of the proximal fibula. Dictated by: Dictated on workstation # [id number]
== END ==
LOC: RAD 16:07
PROVIDERS: ATTEND Nurse Practitioner Family
DX: M25.561 Pain in right knee (principal); M79.661 Pain in right lower leg; Z91.81 History of falling
CPT/HCPCS: 73562; 73590

== ENCOUNTER 2019-07-05 13:35 | Outpatient (RCR) | payer MEDICARE, OTHER | END 2019-07-05 16:14 | disposition home or self-care (01) | PROVIDERS: ATTEND Physical Medicine & Rehabilitation | DX: M54.2 Cervicalgia (principal); M54.5 Low back pain ==

== ENCOUNTER → 2019-09-04 | Outpatient (CLI) | payer MEDICARE, OTHER | LOC: CARD 08:03 | PROVIDERS: ATTEND Internal Medicine Interventional Cardiology | DX: I08.0 Rheumatic disorders of both mitral and aortic valves (principal); E78.01 Familial hypercholesterolemia; E78.1 Pure hyperglyceridemia; I10 Essential (primary) hypertension; R55 Syncope and collapse | CPT/HCPCS: 93306 ==

== ENCOUNTER → 2019-09-06 | Outpatient (CLI) | payer MEDICARE, OTHER ==
[~2019-09-06] VITALS: Ht 161 cm; Wt 95.0 kg
[~2019-09-06] MED LIST changes: +CATHETER FLUSH 10 ML SYR IV PRN; +REGADENOSON 0.4 MG/5 ML SYR (LEXISCAN) IV ONE
[2019-09-06 09:42] VITALS: BP 153/73
[2019-09-06 09:46] VITALS: BP 161/76
--- NOTE | 2019-09-18 17:01 | Cardiology Stress Test Report ---
Stress Test Report Type of NM Stress Test: Test Type: LEXISCAN 0.4MG/5ML Date of Procedure/Referring: Date of Procedure: Sep 06, 2019 PCP Fritz Emerson MD Admitting Physician Giuliana Manuel MD Indications: Palpitations, risk factors for CAD. Baseline Heart Rate: 67 Baseline Blood Pressure: Blood Pressure Systolic: 161 Blood Pressure Diastolic: 76 Baseline EKG: Baseline EKG: sinus rhythm Summary & Conclusion: Summary: The patient was brought to the stress lab after informed consent was taken. Stress test was performed according to the Lexiscan protocol. 0.4 mg of IV Lexiscan was given. Low-grade exercise was performed. Baseline EKG showed sinus rhythm at 67 BPM. Initial blood pressure was 145/75 mmHg. Maximum heart rate was 81 bpm and blood pressure 156/83 mmHg. Patient did not have any chest pain, arrhythmias or ST segment changes during the stress test. 10.91 mCi of Myoview were given for rest imaging and 31.8 mCi of Myoview given for stress imaging. Transient ischemic dilatation score 1.05, EF 64 percent. Normal wall motion. Normal myocardial perfusion imaging during rest and stress. Conclusion: Pharmacological stress test was negative for ischemia. Normal LV function with no wall motion abnormalities. Normal myocardial perfusion imaging during rest and stress. Fritz EMERSON MD Sep 18, 2019 17:01 POS
== END ==
LOC: CARD 07:33
PROVIDERS: ATTEND Internal Medicine Interventional Cardiology
DX: E78.01 Familial hypercholesterolemia (principal); E78.1 Pure hyperglyceridemia; I10 Essential (primary) hypertension; R06.02 Shortness of breath; R55 Syncope and collapse
CPT/HCPCS: 78452; 93017

== ENCOUNTER 2020-01-21 13:07 | Observation (INO) | payer MEDICARE, OTHER ==
[~2020-01-21] VITALS: Ht 162.6 cm; Wt 93.4 kg
[~2020-01-21 13:07] MED LIST changes: -CATHETER FLUSH 10 ML SYR IV PRN; -REGADENOSON 0.4 MG/5 ML SYR (LEXISCAN) IV ONE
[2020-01-21] MEDS ORDERED: ASPIRIN 81 MG CHEW (CHILDREN'S ASA) PO STA (13:24)
[2020-01-21 13:28] LABS: BASOPHILS % (AUTO) 0 % (0-10); EOSINOPHILS % (AUTO) 1 % (0-10); HEMATOCRIT 43 % (35-52); HEMOGLOBIN 14.4 G/DL (11.5-16.0); LYMPHOCYTES # (AUTO) 2.5 X 10^3 (1.0-4.0); LYMPHOCYTES % (AUTO) 29 % (12-44); MEAN CORPUSCULAR HEMOGLOBIN 30 PG (25-34); MEAN CORPUSCULAR HGB CONC 33 G/DL (32-36); MEAN CORPUSCULAR VOLUME 90 FL (80-99); MONOCYTES # (AUTO) 0.7 X 10^3 (0.0-1.0); MONOCYTES % (AUTO) 8 % (0-12); NEUTROPHILS # (AUTO) 5.5 X 10^3 (1.8-7.8); NEUTROPHILS % (AUTO) 63 % (42-75); PLATELET COUNT 316 10^3/uL (130-400); RED CELL DISTRIBUTION WIDTH 14.7 % (10.0-14.5); WHITE BLOOD COUNT 8.7 10^3/uL (4.3-11.0)
[2020-01-21 13:39] LABS: CHLORIDE 106 MMOL/L (98-107); POTASSIUM 3.6 MMOL/L (3.6-5.0); SODIUM 142 MMOL/L (135-145)
[2020-01-21 13:40] LABS: AMYLASE 50 U/L (25-125); CALCIUM 9.9 MG/DL (8.5-10.1); INR 0.9 (0.8-1.4); PROTHROMBIN TIME PATIENT 12.7 SEC (12.2-14.7)
[2020-01-21 13:41] LABS: GLUCOSE 136 MG/DL (70-105)
[2020-01-21 13:42] LABS: CARBON DIOXIDE 21 MMOL/L (21-32)
[2020-01-21 13:43] LABS: BILIRUBIN,TOTAL 0.6 MG/DL (0.1-1.0)
--- NOTE | 2020-01-21 13:43 | ED Cardiac General ---
History of Present Illness General Chief Complaint: Cardiac/General Problems Stated Complaint: RACING HEART Nursing Triage Note: Assisted pt via ED w/c from POV with c/o palpitations et weakness associated with intermittent SOA. Pt reports symptoms began at approx 0900 on this day. Pt denies fever, new cough, or having been exposed to any known COVID-19. Pt denies CP. A&OX4. History of Present Illness Date Seen by Provider: Jan 21, 2020 Time Seen by Provider: 13:10 Initial Comments 74 year old female reports palpitations and tachycardia since 0900. She has history of this in the past but it usually lasts an hour or less. Possible history of a-fib, but not on anticoagulants or ASA. Denies chest pain, nausea, vomiting, diabetes, cough or congestion. Patient had an echo and stress test in September 2019 which were both essentially normal. Patient denies any increased stress or anxiety. She is active in her home, has not been more sedentary than usual. No history of DVT or PE. Timing/Duration: 4-6 hours Severity: mild Prior CP/Workup: no prior chest pain, echocardiography, stress test NTG SL SHAREPOINT MANAGER: No ASA po SHAREPOINT MANAGER: No Associated Systoms: No Chest Pain, No Cough, No Diaphoresis, No Fever/Chills, No Headaches, No Loss of Appetite, No Malaise, No Nausea/Vomiting, No Rash, No Seizure, No Shortness of Air, No Syncope; Weakness Allergies and Home Medications Allergies Coded Allergies: etanercept (Verified Allergy, Intermediate, HTN, 01/22/16) metoprolol (Verified Allergy, Mild, 01/22/16) triamterene (Verified Allergy, Unknown, 07/28/16) Home Medications Cholecalciferol (Vitamin D3) 5,000 Unit Tablet, 5,000 UNIT PO WEEKLY, (Reported) Cinnamon Bark 500 Mg Capsule, 500 MG PO DAILY, (Reported) Clonidine HCl 0.1 Mg Tablet, 0.1 MG PO BID Prescribed by: BELEN WONG on 01/18/16 1329 Diphenhydramine HCl 25 Mg Capsule, 25 MG PO PRN, (Reported) Doxazosin Mesylate 1 Mg Tablet, 1 MG PO BID, (Reported) Famotidine 40 Mg Tablet, 40 MG PO DAILY Prescribed by: TRAM ZAMORANO MD on 07/17/16 1802 Hydrochlorothiazide 12.5 Mg Cap, 12.5 MG PO DAILY, (Reported) Losartan Potassium 50 Mg Tablet, 50 MG PO BID, (Reported) [place]-3 Fatty Acids/Fish Oil 1 Each Capsule.dr, 1 EACH PO DAILY, (Reported) Patient Home Medication List Home Medication List Reviewed: Yes Review of Systems Review of Systems Constitutional: no symptoms reported, see HPI, weakness Cardiovascular: See HPI; Denies Chest Pain; Irregular Heart Rate, Palpitations Gastrointestinal: No Symptoms Reported, See HPI; Denies Nausea, Denies Vomiting Endocrine: No Symptoms Reported, See HPI All Other Systems Reviewed Negative Unless Noted: Yes Past Jejdfuj-Jolaip-Khvmbf Hx Past Med/Social Hx: Reviewed Nursing Past Med/Soc Hx Patient Social History Alcohol Use: Denies Use Recreational Drug Use: No Smoking Status: Never a Smoker 2nd Hand Smoke Exposure: No Recent Foreign Travel: No Contact w/Someone Who Travel: No Recent Infectious Disease Expo: No Recent Hopitalizations: No Immunizations Up To Date Tetanus Booster (TDap): Unknown Date of Influenza Vaccine: Jul 21, 2016 Seasonal Allergies Seasonal Allergies: No Past Medical History Surgeries: Yes (EGD/COLONOSCOPY, BACK SURGERY) Gallbladder, Hysterectomy, Joint Replacement Respiratory: No Cardiac: Yes (ELEVATED TRIGLYCERIDES) Chronic Edema/Swelling, High Cholesterol, Hypertension, Palpitations Neurological: Yes (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) TIA, Vertigo Reproductive Disorders: Yes (BENIGN TUMOR -HYSTERECTOMY AGE 29) 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 Sexually Transmitted Disease: No HIV/AIDS: No Gastrointestinal: Yes Gastroesophageal Reflux, Chronic Constipation Musculoskeletal: Yes (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 6.0oz. 90.713508hu; 36.00 BMI Method:Stated General Appearance: No Apparent Distress, WD/WN HEENT: PERRL/EOMI, TMs Normal, Normal ENT Inspection, Pharynx Normal Neck: Full Range of Motion, Normal Inspection, Non Tender, Supple; No Carotid Bruit Respiratory: Chest Non Tender, Lungs Clear, Normal Breath Sounds, No Accessory Muscle Use, No Respiratory Distress Cardiovascular: No Edema, No Murmur, Tachycardia Gastrointestinal: Normal Bowel Sounds, Non Tender, Soft Neurologic/Psychiatric: Alert, Oriented x3, No Motor/Sensory Deficits, Normal Mood/Affect Skin: Normal Color, Warm/Dry Progress/Results/Core Measures Results/Orders Lab Results Laboratory Tests Test 01/21/20 13:19 01/21/20 16:00 Range/Units White Blood Count 8.7 4.3-11.0 10^3/uL Red Blood Count 4.79 4.35-5.85 10^6/uL Hemoglobin 14.4 11.5-16.0 G/DL Hematocrit 43 35-52 % Mean Corpuscular Volume 90 80-99 FL Mean Corpuscular Hemoglobin 30 25-34 PG Mean Corpuscular Hemoglobin Concent 33 32-36 G/DL Red Cell Distribution Width 14.7 H 10.0-14.5 % Platelet Count 316 130-400 10^3/uL Mean Platelet Volume 10.0 7.4-10.4 FL Neutrophils (%) (Auto) 63 42-75 % Lymphocytes (%) (Auto) 29 12-44 % Monocytes (%) (Auto) 8 0-12 % Eosinophils (%) (Auto) 1 0-10 % Basophils (%) (Auto) 0 0-10 % Neutrophils # (Auto) 5.5 1.8-7.8 X 10^3 Lymphocytes # (Auto) 2.5 1.0-4.0 X 10^3 Monocytes # (Auto) 0.7 0.0-1.0 X 10^3 Eosinophils # (Auto) 0.0 0.0-0.3 10^3/uL Basophils # (Auto) 0.0 0.0-0.1 10^3/uL Prothrombin Time 12.7 12.2-14.7 SEC INR Comment 0.9 0.8-1.4 Activated Partial Thromboplast Time 30 24-35 SEC D-Dimer 0.28 0.00-0.49 UG/ML Sodium Level 142 135-145 MMOL/L Potassium Level 3.6 3.6-5.0 MMOL/L Chloride Level 106 98-107 MMOL/L Carbon Dioxide Level 21 21-32 MMOL/L Anion Gap 15 H 5-14 MMOL/L Blood Urea Nitrogen 14 7-18 MG/DL Creatinine 0.80 0.60-1.30 MG/DL Estimat Glomerular Filtration Rate > 60 BUN/Creatinine Ratio 18 Glucose Level 136 H 70-105 MG/DL Calcium Level 9.9 8.5-10.1 MG/DL Corrected Calcium 9.9 8.5-10.1 MG/DL Magnesium Level 1.8 1.6-2.4 MG/DL Total Bilirubin 0.6 0.1-1.0 MG/DL Aspartate Amino Transf (AST/SGOT) 30 5-34 U/L Alanine Aminotransferase (ALT/SGPT) 32 0-55 U/L Alkaline Phosphatase 74 40-136 U/L Myoglobin 67.3 10.0-92.0 NG/ML Troponin I < 0.028 0.036 H <0.028 NG/ML B-Type Natriuretic Peptide 26.5 <100.0 PG/ML Total Protein 7.0 6.4-8.2 GM/DL Albumin 4.0 3.2-4.5 GM/DL Amylase Level 50 25-125 U/L Lipase 51 8-78 U/L TSH [place] Testing 1.00 0.35-4.94 UIU/ML My Orders Orders - SMITH,JOCELYN CHARTER COORDINATOR Cbc With Automated Diff (01/21/20 13:15) Magnesium (01/21/20 13:15) Chest 1 View, Ap/Pa Only (01/21/20 13:15) Ekg Tracing (01/21/20 13:15) Comprehensive Metabolic Panel (01/21/20 13:15) Myoglobin Serum (01/21/20 13:15) Protime With Inr (01/21/20 13:15) Partial Thromboplastin Time (01/21/20 13:15) O2 (01/21/20 13:15) Monitor-Rhythm Ecg Trace Only (01/21/20 13:15) Ed Iv/Invasive Line Start (01/21/20 13:15) Lipase (01/21/20 13:15) Amylase (01/21/20 13:15) BNP (01/21/20 13:15) Troponin I (01/21/20 13:15) Fibrin Degradation Products (01/21/20 13:24) Aspirin Chewable Tablet (Baby Aspirin Ch (01/21/20 13:24) Carvedilol Tablet (Coreg Tablet) (01/21/20 14:00) Ed Iv/Invasive Line Start (01/21/20 13:53) Ns Iv 500 Ml (Sodium Chloride 0.9%) (01/21/20 13:53) Thyroid Analyzer (01/21/20 14:19) Ekg Tracing (01/21/20 15:10) Troponin I (01/21/20 15:53) Medications Given in ED Current Medications Medications Dose Ordered Sig/Cheng Route Start Time Stop Time Status Last Admin Dose Admin Carvedilol 6.25 mg ONCE ONCE PO 01/21/20 14:00 01/21/20 14:01 DC 01/21/20 14:33 6.25 MG Sodium Chloride 500 ml @ 0 mls/hr Q0M ONCE IV 01/21/20 13:53 01/21/20 13:54 DC 01/21/20 14:16 0 MLS/HR Vital Signs/I&O 01/21/20 13:07 Temp 36.4 Pulse 131 Resp 20 B/P (MAP) 159/87 (111) Pulse Ox 94 O2 Delivery Room Air Blood Pressure Mean: 111 Progress Progress Note : Time: 13:10 Progress Note Patient seen and evaluated, will obtain labs, chest x-ray and EKG. [address] Emerson, agreed with plan. Will give Coreg for tachy and await lab/x-ray results. 1350 Hgb 14, so tachy not from anemia. Will also check Thyroid. 1420 Awaiting Coreg from Pharmacy, HR continues to be 105-120. 1500 HR down to 100 after Coreg. [address] Emerson, he will see patient. Requests repeat Troponin. 1600 Dr. Emerson here to see patient, no additional recommendations. Spoke to Dr. Manuel by phone, agreed with plan to d/c to home if repeat Troponin is negative. She has appt with Dr. aMnuel tomorrow at 11:00. 1630 Repeat Troponin elevated, Dr. Emerson and Mar notified, agreed with plan to admit. 1645 B/P Elevated 160s/90s. patient reports it is time for her Clonidine. Will give 0.2mg orally. 1730 B/P improving 140s/70s. No complaints of palpitations. Will continue to monitor. Initial ECG Impression Date: Jan 21, 2020 Initial ECG Impression Time: 13:11 Initial ECG Rate: 124 Initial ECG Rhythm: S.Tach Initial ECG Intervals TX 146, QRSD 80, QT 317, QTC 456. Terral P 43, QRS -38, T 59. Initial ECG Impression: Normal Initial ECG Comparisson: Changed EKG : EKG Time: 15:22 Rate: 109 Rhythm: S.Tach Intervals: Normal Intervals TX 151, QRSD 82, QT 321, QTC 433. Terral P 44, QRS -30, teeth negative for. ECG Comparisson: Unchanged Diagnostic Imaging Plain Films/CT/US/NM/MRI: chest Comments NAME: [facility] REC#: [id number] PT STATUS: REG ER : 1945 PHYSICIAN: JOCELYN MTZ ADMIT DATE: 01/21/20/ER Signed Date of Exam:01/21/20 CHEST 1 VIEW, AP/PA ONLY Indication: Arrhythmia Portable chest 1:49 PM Heart size and pulmonary vascularity are normal. Lungs are clear. There are no effusions or pneumothoraces. IMPRESSION: Negative chest Dictated by: Dictated on workstation # [id number] Dict: 01/21/20 1355 Trans: 01/21/20 1355 TB [id number] Interpreted by: BELEN OBRIEN MD Electronically signed by: BELEN OBRIEN MD 01/21/20 1355 Reviewed: Reviewed by Me Departure Impression Primary Impression: Palpitations Additional Impression: Sinus tachycardia Disposition: 01 HOME, SELF-CARE Condition: Stable Admissions Decision to Admit Reason: Admit from ER (General) Departure-Patient Inst. Referrals: MONICA MANUEL MD (PCP/Family) Primary Care Physician Patient Instructions: Sinus Tachycardia (DC) Add. Discharge Instructions: All discharge instructions reviewed with patient and/or family. Voiced understanding. Copy Copies To 1: Fritz EMERSON MD, AMY ARNP Jan 21, 2020 13:43
[2020-01-21 13:44] LABS: ALKALINE PHOSPHATASE 74 U/L (40-136)
[2020-01-21 13:45] LABS: GFR ESTIMATED > 60
[2020-01-21 13:46] LABS: BUN/CREATININE RATIO 18
[2020-01-21 13:47] LABS: ALANINE AMINOTRANSFERASE 32 U/L (0-55)
[2020-01-21 13:48] LABS: MAGNESIUM 1.8 MG/DL (1.6-2.4)
[2020-01-21 13:49] LABS: LIPASE 51 U/L (8-78)
--- OUTSIDE RECORDS SUMMARY | 2020-01-21 13:50 | XMS REPORT | CCD ---
Author Author Narinder Manuel Organization [facility] Address [address] [place] [address] Phone Care Team Providers Care Box Person Name Role Phone PP Unavailable CCM Unavailable Summary Purpose Interface Exchange Insurance Providers Payer name Policy type / Coverage type Covered republican ID Effective Begin Date Effective End Date WPS Medicare Part B Medicare Part B [id number] Unknown [employer] Medicare Part B [id number] Unknown Family history Mother Diagnosis Age At Onset Diabetes Unknown Brother Diagnosis Age At Onset Diabetes Unknown Heart disease Unknown Son Diagnosis Age At Onset No Family Disease Entered N/A Father Diagnosis Age At Onset Prostatic cancer Unknown Heart disease Unknown Leukemia Unknown Sister Diagnosis Age At Onset Diabetes Unknown Social History Social History Element Codes Description Effective Dates Employment Unknown 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 09/08/2015 Marital status Unknown M arried 07/13/[address]: 665824525 Nonsmoker 07/13/[address]: 197808991 Never drinks alcohol 07/13/2011 Allergies, Adverse Reactions, Alerts Substance Reaction Codes Entered Date Inactivated Date Status Soy Unknown 07/13/2011 No Inactive Date Active Cardizem RxNorm: 524014 05/19/2016 No Inactive Date Active Metoprolol Succinate anaphylaxis, rash, RxNorm: 6918 02/13/2016 No Inactive Date Active Past Medical History Illness Codes Condition Status Onset Date Resolved Date Pain in right knee ICD- 9: 719.46 ICD-10: M25.561 Active 03/20/2019 Unknown Unspecified fracture of shaft of right fibula, initial encounter for closed fracture ICD-9: 823.81 ICD-10: S82.401A Active 03/20/2019 Unknown Asymptomatic varicos e veins of right lower extremity ICD-9: 454.9 ICD-10: I83.91 Active 03/15/2019 Unknown Otalgia, right ear ICD- 9: 388.70 ICD-10: H92.01 Active 01/01/2019 Unknown Other specified diso rders of teeth and supporting structures ICD-9: 525.9 ICD-10: K08.89 Active 01/08/2019 Unknown Essential (primary) hypertension ICD-9: 401.1 ICD-10: I10 Active 07/21/2016 Unknown Gastro-esophageal re flux disease without esophagitis ICD-9: 530.81 ICD-10: K21.9 Active 07/21/2016 Unknown Myalgia, other site ICD- 9: 729.1 ICD-10: M79.18 Active 12/18/2018 Unknown 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 Active 07/05/2017 Unknown Sciatica Unknown Active 09/18/2018 Unknow n Lumbago with sciatic a, right side ICD-9: 724.3 ICD-10: M54.41 Active 09/18/2018 Unknown Sacroiliitis, not el sewhere classified ICD-9: 720.2 ICD-10: M46.1 Active 09/18/2018 Unknown Nasal congestion ICD-9: 478.19 ICD-10: R09.81 Active 08/31/2018 Unknown Other allergic rhinitis ICD-9: 477.8 ICD-10: J30.89 Active 08/31/2018 Unknown Acute recurrent maxi llary sinusitis ICD-9: 461.0 ICD-10: J01.01 Active 08/14/2018 Unknown Encounter for immuni zation ICD-9: V04.81 ICD-10: Z23 Active 07/05/2017 Unknown Pain in right arm ICD-9: 729.5 ICD-10: M79.601 Active 05/22/2018 Unknown Pain in right shoulder ICD-9: 719.41 ICD-10: M25.511 Active 05/22/2018 Unknown Benign paroxysmal ve rtigo, bilateral ICD-9: 386.11 ICD-10: H81.13 Active 04/10/2012 Unknown Other specified inte stinal infections ICD-9: 009.0 ICD-10: A08.8 Active 08/03/2017 Unknown Myalgia ICD-9: 729.1 ICD-10: M79.1 Active 07/05/2017 Unknown Personal history of poliomyelitis ICD-9: V12.02 ICD-10: Z86.12 Active 07/05/2017 Unknown Vitamin D deficiency , unspecified ICD-9: 268.9 ICD-10: E55.9 Active 07/05/2017 Unknown Allergic rhinitis du e to pollen ICD-9: 477.9 ICD-10: J30.1 Active 11/22/2016 Unknown Acute laryngopharyng itis ICD-9: 465.0 ICD-10: J06.0 Active 11/05/2016 Unknown Influenza due to uni dentified influenza virus with other respiratory manifestations ICD-9: 487.1 ICD-10: J11.1 Active 11/05/2016 Unknown Abdominal distension (gaseous) ICD-9: 787.3 ICD-10: R14.0 Active 05/19/2016 Unknown Essential (primary) hypertension ICD-9: 401.9 ICD-10: I10 Active 02/12/2016 Unknown Body mass index (BMI ) 36.0-36.9, adult ICD-9: V85.36 ICD-10: Z68.36 Active 01/01/2016 Unknown Radiculopathy, cervi radha region ICD-9: 723.1 ICD-10: M54.12 Active 03/16/2012 Unknown Myositis, unspecified ICD-9: 729.1 ICD-10: M60.9 Active 03/20/2014 Unknown Other specified nons carring hair loss ICD-9: 704.09 ICD-10: L65.8 Active 07/08/2015 Unknown Psoriasis, unspecified ICD-9: 696.1 ICD-10: L40.9 Active 07/08/2015 Unknown PALPITATIONS ICD-9: 785.1 Active 01/03/2015 Unknown Shoulder pain ICD-9: 719.41 Active 01/03/2015 Unknown Sacroiliitis ICD-9: 720.2 Active 09/16/2014 Unknown Arrhythmia ICD-9: 427.9 Active 08/15/2014 Unknow n Nausea ICD-9: 787.02 Active 08/15/2014 Unknow n Allergic reaction ICD-9: 995.3 Active 06/12/2014 Unknown Back pain ICD-9: 724.5 Active 06/12/2014 Unknow n ESSENTIAL HYPERTENSION ICD-9: 401.9 Active 06/12/2014 Unknown MYALGIA AND MYOSITIS ICD-9: 729.1 Active 03/20/2014 Unknown Thoracic back pain ICD- 9: 724.1 Active 03/20/2014 Unknown Bleeding from the nose ICD-9: 784.7 Active 09/20/2012 Unknown Hair loss ICD-9: 704.00 Active 09/20/2012 Unknow n Vitamin d deficiency ICD-9: 268.9 Active 09/20/2012 Unknown BPPV (benign paroxys mal positional vertigo) ICD-9: 386.11 Active 04/10/2012 Unknown Diverticulitis ICD-9: 562.11 Active 04/10/2012 Unknown Neck pain ICD-9: 723.1 Active 03/16/2012 Unknow n Constipation - funct ional ICD-9: 564.09 Active 12/2011 Unknown HYPERLIPIDEMIA ICD-9: 272.4 Active 11/04/2011 Unknown VITAMIN DEFICIENCY ICD- 9: 269.2 Active 11/04/2011 Unknown Diphtheria Unknown Active 07/13/2011 Unknow n Disability Unknown Active 07/13/2011 Unknow n Fibromyalgia Unknown Active 07/13/2011 Unknow n Hyperlipidemia Unknown Active 07/13/2011 Unknow n Hypertension Unknown Active 07/13/2011 Unknow n Polio Unknown Active 07/13/2011 Unknow n Post polio syndrome Unknown Active 07/13/2011 Unknown Psoriasis Unknown Active 07/13/2011 Unknow n Rabies Unknown Active 07/13/2011 Unknow n Scoliosis Unknown Active 07/13/2011 Unknow n Vestibular response Unknown Active 07/13/2011 Unknown Vitamin D Deficiency Unknown Active 07/13/2011 Unknown Abdominal pain ICD-9: 789.00 Active 07/13/2011 Unknown 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 Active 07/13/2011 Unknown OBESITY ICD-9: 278.00 Active 07/13/2011 Unknow n Postprandial bloating ICD-9: 787.3 Active 07/13/2011 Unknown Seasonal allergies ICD- 9: 477.9 Active 07/13/2011 Unknown VAC STREP PNEUMONIAE -FLU ICD-9: V06.6 Active 07/03 Unknown Problems Condition Codes Effectiv e Dates Condition Status Pain in right knee ICD- 9: 719.46 ICD-10: M25.561 03/20/2019 Active Unspecified fracture of shaft of right fibula, initial encounter for closed fracture ICD-9: 823.81 ICD-10: S82.401A 03/20/2019 Active Asymptomatic varicos e veins of right lower extremity ICD-9: 454.9 ICD-10: I83.91 03/15/2019 Active Otalgia, right ear ICD- 9: 388.70 ICD-10: H92.01 01/01/2019 Active Other specified diso rders of teeth and supporting structures ICD-9: 525.9 ICD-10: K08.89 01/08/2019 Active Essential (primary) hypertension ICD-9: 401.1 ICD-10: I10 07/21/2016 Active Gastro-esophageal re flux disease without esophagitis ICD-9: 530.81 ICD-10: K21.9 07/21/2016 Active Myalgia, other site ICD- 9: 729.1 ICD-10: M79.18 12/18/2018 Active 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 07/05/2017 Active Sciatica Unknown 09/18/2018 Active Lumbago with sciatic a, right side ICD-9: 724.3 ICD-10: M54.41 09/18/2018 Active Sacroiliitis, not el sewhere classified ICD-9: 720.2 ICD-10: M46.1 09/18/2018 Active Nasal congestion ICD-9: 478.19 ICD-10: R09.81 08/31/2018 Active Other allergic rhinitis ICD-9: 477.8 ICD-10: J30.89 08/31/2018 Active Acute recurrent maxi llary sinusitis ICD-9: 461.0 ICD-10: J01.01 08/14/2018 Active Encounter for immuni zation ICD-9: V04.81 ICD-10: Z23 07/05/2017 Active Pain in right arm ICD-9: 729.5 ICD-10: M79.601 05/22/2018 Active Pain in right shoulder ICD-9: 719.41 ICD-10: M25.511 05/22/2018 Active Benign paroxysmal ve rtigo, bilateral ICD-9: 386.11 ICD-10: H81.13 04/10/2012 Active Other specified inte stinal infections ICD-9: 009.0 ICD-10: A08.8 08/03/2017 Active Myalgia ICD-9: 729.1 ICD-10: M79.1 07/05/2017 Active Personal history of poliomyelitis ICD-9: V12.02 ICD-10: Z86.12 07/05/2017 Active Vitamin D deficiency , unspecified ICD-9: 268.9 ICD-10: E55.9 07/05/2017 Active Allergic rhinitis du e to pollen ICD-9: 477.9 ICD-10: J30.1 11/22/2016 Active Acute laryngopharyng itis ICD-9: 465.0 ICD-10: J06.0 11/05/2016 Active Influenza due to uni dentified influenza virus with other respiratory manifestations ICD-9: 487.1 ICD-10: J11.1 11/05/2016 Active Abdominal distension (gaseous) ICD-9: 787.3 ICD-10: R14.0 05/19/2016 Active Essential (primary) hypertension ICD-9: 401.9 ICD-10: I10 02/12/2016 Active Body mass index (BMI ) 36.0-36.9, adult ICD-9: V85.36 ICD-10: Z68.36 01/01/2016 Active Radiculopathy, cervi radha region ICD-9: 723.1 ICD-10: M54.12 03/16/2012 Active Myositis, unspecified ICD-9: 729.1 ICD-10: M60.9 03/20/2014 Active Other specified nons carring hair loss ICD-9: 704.09 ICD-10: L65.8 07/08/2015 Active Psoriasis, unspecified ICD-9: 696.1 ICD-10: L40.9 07/08/2015 Active PALPITATIONS ICD-9: 785.1 01/03/2015 Active Shoulder pain ICD-9: 719.41 01/03/2015 Active Sacroiliitis ICD-9: 720.2 09/16/2014 Active Arrhythmia ICD-9: 427.9 08/15/2014 Active Nausea ICD-9: 787.02 08/15/2014 Active Allergic reaction ICD-9: 995.3 06/12/2014 Active Back pain ICD-9: 724.5 06/12/2014 Active ESSENTIAL HYPERTENSION ICD-9: 401.9 06/12/2014 Active MYALGIA AND MYOSITIS ICD-9: 729.1 03/20/2014 Active Thoracic back pain ICD- 9: 724.1 03/20/2014 Active Bleeding from the nose ICD-9: 784.7 09/20/2012 Active Hair loss ICD-9: 704.00 09/20/2012 Active Vitamin d deficiency ICD-9: 268.9 09/20/2012 Active BPPV (benign paroxys mal positional vertigo) ICD-9: 386.11 04/10/2012 Active Diverticulitis ICD-9: 562.11 04/10/2012 Active Neck pain ICD-9: 723.1 03/16/2012 Active Constipation - funct ional ICD-9: 564.09 02/03/2012 Active HYPERLIPIDEMIA ICD-9: 272.4 11/04/2011 Active VITAMIN DEFICIENCY ICD- 9: 269.2 11/04/2011 Active Diphtheria Unknown 07/13/2011 Active Disability Unknown 07/13/2011 Active Fibromyalgia Unknown 07/13/2011 Active Hyperlipidemia Unknown 07/13/2011 Active Hypertension Unknown 07/13/2011 Active Polio Unknown 07/13/2011 Active Post polio syndrome Unknown 07/13/2011 Active Psoriasis Unknown 07/13/2011 Active Rabies Unknown 07/13/2011 Active Scoliosis Unknown 07/13/2011 Active Vestibular response Unknown 07/13/2011 Active Vitamin D Deficiency Unknown 07/13/2011 Active Abdominal pain ICD-9: 789.00 07/13/2011 Active 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 07/13/2011 Active OBESITY ICD-9: 278.00 07/13/2011 Active Postprandial bloating ICD-9: 787.3 07/13/2011 Active Seasonal allergies ICD- 9: 477.9 07/13/2011 Active VAC STREP PNEUMONIAE -FLU ICD-9: V06.6 07/13/2011 Active Medications Medication Codes Instruc tions Start Date Stop Date Sta tus Fill Instructions atenolol 25 mg tablet RxNorm: 312964 1 Tablet(s) PO daily 05/28/2019 05/21/2020 Active Vitamin D2 50,000 un it capsule RxNorm: 9557446 1 Capsule(s) PO QW 04/13/2019 07/05/2019 Active Vitamin D2 50,000 un it capsule RxNorm: 0111073 1 Capsule(s) PO QW 04/13/2019 04/12/2019 Inactive clonidine HCl 0.1 mg tablet RxNorm: 147831 TAKE ONE-HALF TABLET BY MOUTH TWO TIMES DAILY 04/04/2019 03/28/2020 Active - Ref: [id number] doxazosin 1 mg tablet RxNorm: 013188 TAKE 1 TABLET BY MOUTH EVERY DAY AT [facility] 02/27/2019 11/23/2019 Ac tive - Ref: [id number] hydrochlorothiazide 12.5 mg tablet RxNorm: 675927 TAKE 1 TABLET BY MOUT H EVERY DAY 02/27/2019 11/23/2019 Ac tive - Ref: [id number] famotidine 40 mg tablet RxNorm: 720754 TAKE 1 TABLET BY MOUTH EVERY MORNING 02/27/2019 11/23/2019 Ac tive - Ref: [id number] Kenalog 40 mg/mL karl pension for injection RxNorm: 5742144 Milliliter(s) Inj 01/01/2019 01/01/2019 In active losartan 25 mg tablet RxNorm: 973422 1 Tablet(s) PO BID 11/01/2018 10/26/2019 Active losartan 25 mg tablet RxNorm: 915189 1 Tablet(s) PO BID 11/01/2018 10/31/2018 Inactive hydrochlorothiazide 12.5 mg tablet RxNorm: 203768 TAKE 1 TABLET BY MOUT H EVERY DAY 10/02/2018 02/26/2019 In active - First Attempt Ref: [id number] famotidine 40 mg tablet RxNorm: 054127 TAKE 1 TABLET BY MOUTH EVERY MORNING 10/02/2018 02/26/2019 In active - First Attempt Ref: [id number] doxazosin 1 mg tablet RxNorm: 954155 TAKE 1 TABLET BY MOUTH EVERY DAY AT [facility] 10/02/2018 02/26/2019 Inactive - First Attempt Ref: [id number] naproxen 500 mg tablet RxNorm: 271718 1 Tablet(s) PO BID 09/18/2018 09/24/2018 Inactive diclofenac 1 % topic al gel RxNorm: 021185 2 Application TOP QID 09/18/2018 11/16/2018 Inactive Kenalog 40 mg/mL karl pension for injection RxNorm: 3473502 1 Milliliter(s) Inj 08/31/2018 08/31/2018 In active clonidine HCl 0.1 mg tablet RxNorm: 755832 1/2 Tablet(s) PO BID 08/16/2018 04/03/2019 Inactive amoxicillin 500 mg t ablet RxNorm: 194395 1 Tablet(s) PO TID 08/14/2018 08/20/2018 Inactive losartan 25 mg tablet RxNorm: 472883 1 Tablet(s) PO BID 05/02/2018 05/01/2018 Inactive losartan 25 mg tablet RxNorm: 519367 1 Tablet(s) PO BID 05/02/2018 10/31/2018 Inactive losartan 25 mg tablet RxNorm: 729522 1 Tablet(s) PO BID 01/30/2018 05/01/2018 Inactive Vitamin D 2,000 unit capsule RxNorm: 1 Capsule(s) PO daily 11/18/2017 No Stop Date Active atenolol 25 mg tablet RxNorm: 061376 1 Tablet(s) PO BID managed by Dr Lafleur 11/18/2017 11/17/2017 In active clonidine HCl 0.1 mg tablet RxNorm: 602827 1/2 Tablet(s) PO BID 11/18/2017 08/15/2018 Inactive doxazosin 1 mg tablet RxNorm: 138491 1 Tablet(s) PO daily at midnight 11/18/2017 10/01/2018 In active midnight losartan 25 mg tablet RxNorm: 782654 1 Tablet(s) PO BID 11/18/2017 01/29/2018 Inactive hydrochlorothiazide 12.5 mg tablet RxNorm: 988021 1 Tablet(s) PO daily 11/18/2017 10/01/2018 In active atenolol 25 mg tablet RxNorm: 265221 1 Tablet(s) PO daily 11/18/2017 11/12/2018 Inactive famotidine 40 mg tablet RxNorm: 739516 1 Tablet(s) PO daily TAKE 1 TABLET BY [facility] EVERY MORNING 11/18/2017 10/01/2018 Inactive - Ref: [id number] hydrochlorothiazide 12.5 mg tablet RxNorm: 362256 1 Tablet(s) PO daily 10/28/2017 11/17/2017 In active famotidine 40 mg tablet RxNorm: 193754 TAKE 1 TABLET BY MOUTH EVERY MORNING 10/04/2017 11/17/2017 In active - Ref: [id number] clonidine HCl 0.1 mg tablet RxNorm: 896775 1/2 Tablet(s) PO BID 07/05/2017 11/17/2017 Inactive doxazosin 1 mg tablet RxNorm: 777494 1 Tablet(s) PO daily at midnight 07/05/2017 11/17/2017 In active midnight doxazosin 1 mg tablet RxNorm: 785215 1 Tablet(s) PO BID 12/02/2016 2017 Inactive midnight prednisone 20 mg tablet RxNorm: 672162 3 Tablet(s) PO daily 11/22/2016 11/26/2016 Inactive Tessalon Perles 100 mg capsule RxNorm: 052312 1 -2 Capsule(s) PO TI D as needed cough 11/19/2016 12/31/2018 Inactive Zithromax Z-Jeff 250 mg tablet RxNorm: 041208 1 Tablet(s) PO UD 11/19/2016 12/01/2016 Inactive z pack as directed Tamiflu 75 mg capsule RxNorm: 420254 1 Capsule(s) PO BID 11/05/2016 11/09/2016 Inactive Kenalog 40 mg/mL karl pension for injection RxNorm: 8060377 Milliliter(s) Inj 11/05/2016 11/05/2016 In active Tessalon Perles 100 mg capsule RxNorm: 650482 1 -2 Capsule(s) PO TI D as needed cough 11/04/2016 11/18/2016 Inactive famotidine 40 mg tablet RxNorm: 474640 1 Tablet(s) PO QAM 10/25/2016 10/03/2017 Inactive famotidine 40 mg tablet RxNorm: 210427 1 Tablet(s) PO QAM 08/02/2016 10/24/2016 Inactive Carafate 1 gram tablet RxNorm: 079745 1 Tablet(s) PO TID DISSOLVE THE PILL IN 10ML OF WATER 07/22/2016 10/19/2016 Inactive clonidine HCl 0.1 mg tablet RxNorm: 183822 1 Tablet(s) PO BID an d 1 tablet as needed 07/22/2016 12/01/2016 Inactive Cinnamon 1000 mg RxNorm: 1 PO daily 05/19/2016 No Stop Date Active aspirin 81 mg tablet ,delayed release RxNorm: 550115 1 Tablet(s) PO QHS 05/19/2016 11/27/2018 In active losartan 25 mg tablet RxNorm: 334969 1 Tablet(s) PO BID 05/19/2016 11/17/2017 Inactive atenolol 25 mg tablet RxNorm: 920400 1.5 Tablet(s) PO BID 02/13/2016 07/21/2016 Inactive losartan 25 mg tablet RxNorm: 869034 2 Tablet(s) PO BID 01/13/2016 05/11/2016 Inactive Cardizem CD 240 mg c apsule,extended release RxNorm: 125641 1 Capsule(s) PO daily 01/13/2016 02/12/2016 In active losartan 100 mg tablet RxNorm: 957200 1/2 Tablet(s) PO BID 01/08/2016 01/12/2016 Inactive losartan 25 mg tablet RxNorm: 356696 2 Tablet(s) PO QPM 1 Tablet(s) PO QPM 12/18/2015 01/07/2016 In active atenolol 25 mg tablet RxNorm: 358791 1.5 Tablet(s) PO BID TAKE ONE TABLET BY MOUTH TWICE A DAY 12/18/2015 01/12/2016 Inactive atenolol 25 mg tablet RxNorm: 606390 Tablet(s) TAKE ONE TABLET BY MOUTH TWICE A DAY 11/14/2015 12/17/2015 Inactive losartan 25 mg tablet RxNorm: 141280 Tablet(s) 1 Tablet(s) PO QPM 11/14/2015 12/17/2015 Inactive spironolactone 25 mg tablet RxNorm: 196951 1 Tablet(s) PO daily 11/14/2015 12/14/2015 Inactive atenolol 25 mg tablet RxNorm: 575389 TAKE ONE TABLET BY MOUTH TWICE A DAY 08/07/2015 11/13/2015 In active atenolol 25 mg tablet RxNorm: 172641 1 Tablet(s) PO daily TAKE ONE TABLET BY MOUTH TWICE DAILY 08/06/2015 08/06/2015 Inactive Generic For:TENORMIN 25 MG TABLET 05/05/2015 10:00:22 AM atenolol 25 mg tablet RxNorm: 138561 1 Tablet(s) PO daily TAKE ONE TABLET BY MOUTH TWICE DAILY 08/06/2015 08/05/2015 Inactive Generic For:TENORMIN 25 MG TABLET 05/05/2015 10:00:22 AM betamethasone diprop ionate 0.05 % topical ointment RxNorm: 139754 1 TOP TID as needed rash 07/09/2015 05/18/2016 Inactive betamethasone diprop ionate 0.05 % topical ointment RxNorm: 167779 1 TOP TID as needed rash 07/09/2015 07/08/2015 Inactive spironolactone 25 mg tablet RxNorm: 870738 1 Tablet(s) PO daily 07/09/2015 07/08/2015 Inactive spironolactone 25 mg tablet RxNorm: 787952 1 Tablet(s) PO daily 07/09/2015 11/13/2015 Inactive losartan 25 mg tablet RxNorm: 152221 Tablet(s) 1 Tablet(s) PO QPM 05/27/2015 11/13/2015 Inactive atenolol 25 mg tablet RxNorm: 041092 TAKE ONE TABLET BY MOUTH TWICE DAILY 05/05/2015 08/05/2015 In active Generic For:TENORMIN 25 MG TABLET 05/05 10:00:22 AM hydrochlorothiazide 25 mg tablet RxNorm: 487913 1/2 Tablet(s) PO BID 02/17/2015 07/08/2015 Inactive Generic For:HYDRODIURIL 25 MG TABLET sulfamethoxazole 800 mg-trimethoprim 160 mg tablet RxNorm: 899637 1 Tablet(s) PO BID 01/16/2015 01/25/2015 Inactive losartan 25 mg tablet RxNorm: 607406 1 Tablet(s) PO QPM 12/09/2014 05/26/2015 Inactive Kenalog 40 mg/mL karl pension for injection RxNorm: 5969337 1 Milliliter(s) Inj 09/16/2014 09/16/2014 In active prednisone 20 mg tablet RxNorm: 499127 3 Tablet(s) PO daily 09/16/2014 09/18/2014 Inactive losartan 25 mg tablet RxNorm: 917953 1 Tablet(s) PO QPM 08/15/2014 12/08/2014 Inactive hydrochlorothiazide 25 mg tablet RxNorm: 514307 TAKE 1/2 TABLET BY [facility] TWICE DAILY 08/13/2014 02/08/2015 Inactive Generic For:HYDRODIURIL 25 MG TABLET atenolol 25 mg tablet RxNorm: 905531 TAKE ONE TABLET BY MOUTH TWICE DAILY 05/07/2014 05/01/2015 In active Generic For:TENORMIN 25 MG TABLET ketorolac 60 mg/2 mL intramuscular solution RxNorm: 105228 2 Milliliter(s) IM 03/20/2014 03/20/2014 In active hydrochlorothiazide 25 mg tablet RxNorm: 541729 Tablet(s) PO TAKE 1/2 TABLET BY MOUTH TWICE DAILY 02/14/2014 08/12/2014 Inactive Generic For:HYDRODIURIL 25 MG TABLET Generic For:HYDRODIURIL 25 MG TABLET 02/14/2014 3:45:03 PM atorvastatin 10 mg t ablet RxNorm: 075768 1 Tablet(s) PO TIW 09/17/2013 03/19/2014 Inactive atorvastatin 10 mg t ablet RxNorm: 581447 tablet oral 09/17/2013 06/04/2015 Inactive hydrochlorothiazide 25 mg tablet RxNorm: 711521 Tablet(s) PO TAKE 1/2 TABLET BY MOUTH TWICE DAILY 08/06/2013 02/13/2014 Inactive Generic For:HYDRODIURIL 25 MG TABLET Generic For:HYDRODIURIL 25 MG TABLET 08/06/2013 1:52:35 PM amoxicillin 500 mg t ablet RxNorm: 944646 2 Tablet(s) PO 2 tabl ets PO 1 hour before dental procedure. 07/26/2013 07/25/2013 Inactive amoxicillin 500 mg t ablet RxNorm: 442645 2 Tablet(s) PO 2 tabl ets PO 1 hour before dental procedure. 07/26/2013 07/26/2013 Inactive methotrexate sodium 2.5 mg tablet RxNorm: 937958 tablet oral 07/13/2013 01/15/2015 Inactive atenolol 25 mg tablet RxNorm: 021100 Tablet(s) PO TAKE ONE TABLET BY MOUTH TW ICE DAILY 05/01/2013 05/06/2014 Inactive Generic For:TENORMIN 25 MG TABLET hydrochlorothiazide 25 mg tablet RxNorm: 936872 Tablet(s) PO TAKE 1/2 TABLET BY MOUTH TWICE DAILY 11/21/2012 08/05/2013 Inactive Generic For:HYDRODIURIL 25 MG TABLET atenolol 25 mg tablet RxNorm: 340726 Tablet(s) PO TAKE ONE TABLET BY MOUTH TW ICE DAILY 10/02/2012 04/30/2013 Inactive Generic For:TENORMIN 25 MG TABLET gemfibrozil 600 mg t ablet RxNorm: 579945 1 Tablet(s) PO BID 06/08/2012 10/08/2012 Inactive meclizine 25 mg tablet RxNorm: 2137221 1 Tablet(s) PO Q4 PRN 06/08/2012 09/05/2012 Inactive prednisone 10 mg Tab RxNorm: 137884 2 Tablet(s) PO daily 03/16/2012 03/20/2012 Inactive atorvastatin 10 mg Tab RxNorm: 506006 1 Tablet(s) PO daily 12/21/2011 12/20/2011 Inactive atorvastatin 10 mg Tab RxNorm: 696564 1 Tablet(s) PO daily 12/21/2011 06/08/2012 Inactive methotrexate sodium 2.5 mg Tab RxNorm: 941495 Tablet(s) PO 11/16/2011 06/12/2012 Inactive 3 on tuesday3 on hydrochlorothiazide 25 mg Tab RxNorm: 454018 1/2 Tablet(s) PO BID 11/01/2011 11/24/2012 Inactive hydrochlorothiazide 12.5 mg Cap RxNorm: 058050 Capsule(s) PO 11/01/2011 06/08/2012 Inactive TAKE ONE TABLET BY MOUTH TWICE DAILY;Gen sky For:MICROZIDE 12.5 MG CAPSULE hydrochlorothiazide 25 mg Tab RxNorm: 054380 1/2 Tablet(s) PO BID 11/01/2011 11/24/2012 Inactive hydrochlorothiazide 25 mg tablet RxNorm: 943168 1/2 Tablet(s) PO BID 11/01/2011 10/31/2011 Inactive hydrochlorothiazide 25 mg Tab RxNorm: 693086 1/2 Tablet(s) PO BID 11/01/2011 10/31/2011 Inactive atenolol 25 mg tablet RxNorm: 646101 Tablet(s) PO 10/04/2011 10/01/2012 Inactive TAKE ONE TABLET BY MOUTH TWICE DAILY;Generic For:TENORMIN 25 MG TABLET hydrochlorothiazide 12.5 mg Cap RxNorm: 915243 1 Capsule(s) PO BID 09/13/2011 10/31/2011 Inactive Influenza Virus Vacc ine 0.5 mL RxNorm: IM 07/13/2011 07/13/2011 Inactive Pneumovax 23 25 mcg/ 0.5 mL Injection RxNorm: 131396 Milliliter(s) Inj 07/13/2011 07/13/2011 In active vitamin B complex oral RxNorm: 12187 oral No Start Date Active Cinnamon 1000 mg RxNorm: 2 PO daily No Start Date Active atenolol 25 mg Tab RxNorm: 063690 1 Tablet(s) PO BID No Start Date 10/03/2011 Inactive niacin ER 500 mg Cap RxNorm: 037872 1 Capsule(s) PO daily No Start Date 06/08/2012 Inactive gemfibrozil 600 mg t ablet RxNorm: 293972 1 Tablet(s) PO BID No Start Date 06/07/2012 Inactive Vitamin C 500 mg Tab RxNorm: 474330 1 Tablet(s) PO daily No Start Date 07/21/2016 Inactive Zithromax Z-Jeff 250 mg tablet RxNorm: 784252 1 Tablet(s) PO UD No Start Date 11/18/2016 Inactive z pack as directed doxazosin 1 mg tablet RxNorm: 128009 1 Tablet(s) PO BID No Start Date 12/01/2016 Inactive vitamin E (dl, aceta te) 400 unit Cap RxNorm: 726434 1 Capsule(s) PO daily No Start Date 07/21/2016 Inactive famotidine 40 mg tablet RxNorm: 088077 1 Tablet(s) PO QAM No Start Date 08/01/2016 Inactive Phenergan VC-Codeine 6.25 mg-5 mg-10 mg/5 mL syrup RxNorm: 607146 5 Milliliter(s) PO Q6 as needed No Start Date 12/31/2018 Inactive hydrochlorothiazide 25 mg Tab RxNorm: 182799 1/2 Tablet(s) PO BID No Start Date 09/12/2011 Inactive Tessalon Perles 100 mg capsule RxNorm: 804607 1 -2 Capsule(s) PO TI D as needed cough No Start Date 11/03/2016 Inactive aspirin 81 mg Tab, D elayed Release RxNorm: 505562 1 Tablet(s) PO every other day No Start Date 05/18/2016 Inactive Cinnamon 1000 mg RxNorm: 2 PO daily No Start Date 05/18/2016 Inactive clonidine HCl 0.1 mg tablet RxNorm: 276302 1 Tablet(s) PO QHS an d 1 Tablet as needed No Start Date 07/21/2016 Inactive Lanexa 3 Cap RxNorm: 1 Capsule(s) PO BID No Start Date 12/31/2018 Inactive niacin 500 mg tablet RxNorm: 726343 1 Tablet(s) PO QHS No Start Date 01/01/2015 Inactive multivitamin Tab RxNorm: 1 Tablet(s) PO daily No Start Date 07/21/2016 Inactive methotrexate sodium 2.5 mg Tab RxNorm: 185595 Tablet(s) PO No Start Date 11/15/2011 Inactive 3 on tuesday3 on [employer] RxNorm: 1 PO daily No Start Date 05/18/2016 Inactive Vitamin D 2,000 unit Cap RxNorm: 1 Capsule(s) PO daily No Start Date 07/21/2016 Inactive hydrochlorothiazide 12.5 mg tablet RxNorm: 279807 1 Tablet(s) PO daily No Start Date 10/27/2017 Inactive Medication Administered Medication Codes Instruc tions Start Date Status Kenalog 40 mg/mL suspension for injection RxNorm: 9356182 Milliliter 01/01/2019 No longer Active Kenalog 40 mg/mL suspension for injection RxNorm: 0865633 1Milliliter 08/31/2018 N o longer Active Kenalog 40 mg/mL suspension for injection RxNorm: 1709892 Milliliter 11/05/2016 No longer Active Kenalog 40 mg/mL suspension for injection RxNorm: 8825750 1Milliliter 09/16/2014 N o longer Active ketorolac 60 mg/2 mL intramuscular solution RxNorm: 113147 2Milliliter 03/20/2014 N o longer Active Influenza Virus Vaccine 0.5 mL RxNorm: 07/13/2011 No longer Active Pneumovax 23 25 mcg/0.5 mL Injection RxNorm: 419144 Milliliter 07/13/2011 No longer Active Immunizations Vaccine Codes Date Status Influenza CVX: 141 07/06 completed Influenza CVX: 141 07/05 completed Influenza CVX: 141 07/22 completed Influenza CVX: 141 09/17 completed Influenza CVX: 141 10/13 completed Influenza CVX: 141 07/13 completed Pneumococcal (Adult) CVX: 33 07/13/2011 completed Assessments Condition Codes Effectiv e Dates Unspecified fracture of shaft of right f ibula, initial encounter for closed fracture ICD-10: S82.401A ICD-9: 823.81 03/20/2019 Pain in right knee ICD-10: M25.561 ICD-9: 719.46 03/20/2019 Asymptomatic varicose veins of right lower extremity ICD-10: I83.91 ICD-9: 454.9 03/15/2019 Other specified disorders of teeth and supporting stru ctures ICD-10: K08.89 ICD-9: 525.9 01/08/2019 Otalgia, right ear ICD-10: H92.01 ICD-9: 388.70 01/08/2019 Gastro-esophageal reflux disease without esophagitis ICD-10: K21.9 ICD-9: 530.81 12/18/2018 Myalgia, other site ICD-10: M79.18 ICD-9: 729.1 12/18/2018 Essential (primary) hypertension ICD -10: I10 ICD-9: 401.1 12/18/2018 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 89 ICD-9: 477.8 08/31/2018 Nasal congestion ICD-10: R09.81 ICD-9: 478.19 08/31/2018 Acute recurrent maxillary sinusitis ICD-10: J01.01 ICD-9: 461.0 08/14/2018 Encounter for immunization ICD-10: Z 23 ICD-9: V04.81 07/06/2018 Pain in right arm ICD-10: M79.601 ICD-9: 729.5 05/22/2018 Pain in right shoulder ICD-10: M25.5 11 ICD-9: 719.41 05/22/2018 Other specified intestinal infections ICD-10: A08.8 ICD-9: 009.0 08/03/2017 Vitamin D deficiency, unspecified IC D-10: E55.9 ICD-9: 268.9 07/05/2017 Personal history of poliomyelitis IC D-10: Z86.12 ICD-9: V12.02 07/05/2017 Myalgia ICD-10: M79.1 ICD-9: 729.1 07/05/2017 Allergic rhinitis due to pollen ICD- 10: J30.1 ICD-9: 477.9 11/22/2016 Influenza due to unidentified influenza virus with other respiratory manifestations ICD-10: J11.1 ICD-9: 487.1 11/05/2016 Acute laryngopharyngitis ICD-10: J06 .0 ICD-9: 465.0 11/05/2016 Abdominal distension (gaseous) ICD-1 0: R14.0 ICD-9: 787.3 05/19/2016 Essential (primary) hypertension ICD -10: I10 ICD-9: 401.9 02/13/2016 Body mass index (BMI) 36.0-36.9, adult ICD-10: Z68.36 ICD-9: V85.36 01/02/2016 Benign paroxysmal vertigo, bilateral ICD-10: H81.13 ICD-9: 386.11 09/08/2015 Radiculopathy, cervical region ICD-1 0: M54.12 ICD-9: 723.1 09/08/2015 Other specified nonscarring hair loss ICD-10: L65.8 ICD-9: 704.09 07/09/2015 Psoriasis, unspecified ICD-10: L40.9 ICD-9: 696.1 07/09/2015 Myositis, unspecified ICD-10: M60.9 ICD-9: 729.1 07/09/2015 ESSENTIAL HYPERTENSION ICD-9: 401.9 01/16/2015 PALPITATIONS ICD-9: 785.1 01/03/2015 Shoulder pain ICD-9: 719.41 01/03/2015 Sacroiliitis ICD-9: 720.2 09/16/2014 Back pain ICD-9: 724.5 1 11/17/2013 Nausea ICD-9: 787.02 Arrhythmia ICD-9: 427.9 08/15/2014 Allergic reaction ICD-9: 995.3 06/12/2014 MYALGIA AND MYOSITIS ICD-9: 729.1 03/20/2014 Thoracic back pain ICD-9: 724.1 03/20/2014 HYPERLIPIDEMIA ICD-9: 272.4 12/10/2013 ABDOM PAIN NOS SITE ICD-9: 789.00 12/10/2013 OBESITY ICD-9: 278.00 BENIGN PAROXYSMAL VERTIGO ICD-9: 386.11 01/17/2013 Vitamin d deficiency ICD-9: 268.9 09/20/2012 Bleeding from the nose ICD-9: 784.7 09/20/2012 Hair loss ICD-9: 704.00 09/20/2012 Diverticulitis ICD-9: 562.11 04/10/2012 Neck pain ICD-9: 723.1 0 03/16/2012 Constipation - functional ICD-9: 564.09 02/03/2012 VITAMIN DEFICIENCY ICD-9: 269.2 11/04/2011 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 07/13/2011 Postprandial bloating ICD-9: 787.3 07/13/2011 Seasonal allergies ICD-9: 477.9 07/13/2011 VAC STREP PNEUMONIAE-FLU ICD-9: V06.6 07/13/2011 Reason For Visit Reason For Visit Effective Dates Notes knee pain 03/20/2019 pain, limb 03/15/2019 earache 01/08/2019 earache 01/01/2019 myalgias 12/18/2018 low back pain 09/18/2018 nasal discharge 08/31/2018 sinus congestion 08/14/2018 vaccination against influenza 07/06/2018 neck and arm pain 05/22/2018 hypertension 11/18/2017 diarrhea 08/03/2017 hypertension 07/05/2017 hypertension 12/02/2016 hypertension 11/22/2016 sinus congestion 11/05/2016 hypertension 07/22/2016 hypertension 05/19/2016 blood pressure followup 02/13/2016 blood pressure followup 01/13/2016 hypertension 01/02/2016 hypertension 12/18/2015 vertigo 09/08/2015 palpitations 07/09/2015 palpitations 01/16/2015 Left palpitations 01/03/2015 Left back pain 09/16/2014 rig ht lower back/hip pain starting last week nausea 08/15/2014 rash 06/12/2014 back pain 03/20/2014 abdominal pain 12/10/2013 hypertension 09/17/2013 back pain 05/21/2013 hypertension 01/17/2013 pain 09/20/2012 hyperlipidemia 06/08/2012 vertigo 04/10/2012 shoulder pain 03/16/2012 hypertension 02/03/2012 hyperlipidemia 11/04/2011 abdominal pain 07/13/2011 Results Observation Observation Code Item Item Code Result Date Cbc With Differential Ord2 WBC 9.90 K/ul 03/27/2019 Cbc With Differential Ord2 RBC 4.67 M/ul 03/27/2019 Cbc With Differential Ord2 HGB 14.3 g/dl 03/27/2019 Cbc With Differential Ord2 Neut% 65.7 % 03/27/2019 Cbc With Differential Ord2 HCT 43.0 % 03/27/2019 Cbc With Differential Ord2 MCV 92.1 fl 03/27/2019 Cbc With Differential Ord2 Lymph% 24.4 % 03/27/2019 Cbc With Differential Ord2 MCH 30.6 pg 03/27/2019 Cbc With Differential Ord2 [place]% 8.1 % 03/27/2019 Cbc With Differential Ord2 MCHC 33.3 pg 03/27/2019 Cbc With Differential Ord2 Eos% 1.3 % 03/27/2019 Cbc With Differential Ord2 PLT 335 K/ul 03/27/2019 Cbc With Differential Ord2 Baso% 0.5 % 03/27/2019 Cbc With Differential Ord2 RDW 14.9 % 03/27/2019 Cbc With Differential Ord2 Neut ABS# 6.50 K/ul 03/27/2019 Cbc With Differential Ord2 Lymph ABS# 2.42 K/ul 03/27/2019 Cbc With Differential Ord2 [place] ABS# 0.8 K/ul 03/27/2019 Cbc With Differential Ord2 Eos ABS# 0.1 K/ul 03/27/2019 Cbc With Differential Ord2 Baso ABS# 0.1 K/ul 03/27/2019 Comp Metabolic Luo190 NA 141 mEq/L 03/27/2019 Comp Metabolic Dvk351 K 4.0 mEq/L 03/27/2019 Comp Metabolic Kqq463 CL 105 mEq/L 03/27/2019 Comp Metabolic Dor685 CO2 25.0 mEq/L 03/27/2019 Comp Metabolic Fxk693 AN ION GAP 15 03/27/2019 Comp Metabolic Neu068 GL UCOSE 106 mg/dL 03/27/2019 Comp Metabolic Iha622 Cr eat 0.7 mg/dL 03/27/2019 Comp Metabolic Iif215 eG FR 87 ml/min/1.73m2 03/27 Comp Metabolic Xdq267 BUN 15 mg/dL 03/27/2019 Comp Metabolic Ttr019 B/ C Ratio 21.4 Ratio 03/27/2019 Comp Metabolic Ofb389 CA LCIUM 9.8 mg/dL 03/27/2019 Comp Metabolic Tni752 AL K PHOS 60 U/L 03/27/2019 Comp Metabolic Lkf880 T(SGOT) 21 U/L 03/27/2019 Comp Metabolic Zxg091 AL T(SGPT) 23 U/L 03/27/2019 Comp Metabolic Lfc976 BI LI T 0.7 mg/dL 03/27/2019 Comp Metabolic Xvh326 AL BUMIN 4.1 g/dL 03/27/2019 Comp Metabolic Wti684 TP RO 6.3 g/dL 03/27/2019 Comp Metabolic Sur760 GL OB 2.3 g/dL 03/27/2019 Comp Metabolic Ngn322 A/ G Ratio 1.8 Ratio 03/27/2019 Comp Metabolic Wdj266 Os mo 283 mOsmo 03/27/2019 Tsh Ord6 TSH (3rd IS) 1.87 uIU/mL 03/27/2019 Vitamin D 25 Oh Cjg5358 VITAMIN D, 25 HYDROXY 27.62 ng/mL 03/27/2019 Lipid Ord30 CHOL 308 mg/dL 03/27/2019 Lipid Ord30 HDL 46.0 mg/dl 03/27/2019 Lipid Ord30 TRIG 336 mg/dL 03/27/2019 Lipid Ord30 LDL 195 mg/dL 03/27/2019 Lipid Ord30 C/HDL 6.7 Ratio 03/27/2019 Potassium Ord64 K 3.8 mEq/L 12/06/2016 Comp Metabolic Xff195 NA 134 mEq/L 12/03/2016 Comp Metabolic Svt386 K Specimen 3+ Hemolyzed mEq/L 12/04/19 17 Comp Metabolic Plx372 CL 106 mEq/L 12/03/2016 Comp Metabolic Lpr455 CO2 20.0 mEq/L 12/03/2016 Comp Metabolic Tlr773 AN ION GAP 16 12/03/2016 Comp Metabolic Vsq206 GL UCOSE 93 mg/dL 12/03/2016 Comp Metabolic Jab134 Cr eat 0.8 mg/dL 12/03/2016 Comp Metabolic Zfi691 eG FR 73 ml/min/1.73m2 12/03 Comp Metabolic Sam314 BUN 14 mg/dL 12/03/2016 Comp Metabolic Dgh495 B/ C Ratio 17.1 Ratio 12/03/2016 Comp Metabolic Dth422 CA LCIUM 9.3 mg/dL 12/03/2016 Comp Metabolic Dsl240 AL K PHOS 63 U/L 12/03/2016 Comp Metabolic Tzq113 T(SGOT) 69 U/L 12/03/2016 Comp Metabolic Pnx715 AL T(SGPT) 33 U/L 12/03/2016 Comp Metabolic Lit999 BI LI T 1.0 mg/dL 12/03/2016 Comp Metabolic Ujc289 AL BUMIN 4.3 g/dL 12/03/2016 Comp Metabolic Xvw673 TP RO 6.7 g/dL 12/03/2016 Comp Metabolic Ceu857 GL OB 2.4 g/dL 12/03/2016 Comp Metabolic Wtn294 A/ G Ratio 1.7 Ratio 12/03/2016 Comp Metabolic App677 Os mo 268 mOsmo 12/03/2016 Comp Metabolic Orn947 NA 138 mEq/L 12/18/2015 Comp Metabolic Ojg028 K 4.1 mEq/L 12/18/2015 Comp Metabolic Dcd279 CL 104 mEq/L 12/18/2015 Comp Metabolic Cbg748 CO2 22.0 mEq/L 12/18/2015 Comp Metabolic Yto632 AN ION GAP 16 12/18/2015 Comp Metabolic Aks905 GL UCOSE 89 mg/dL 12/18/2015 Comp Metabolic Hsv133 Cr eat 0.6 mg/dL 12/18/2015 Comp Metabolic Udp704 eG FR 99 ml/min/1.73m2 12/17 Comp Metabolic Lgp364 BUN 15 mg/dL 12/18/2015 Comp Metabolic Fmn627 B/ C Ratio 23.8 Ratio 12/18/2015 Comp Metabolic Giz203 CA LCIUM 10.4 mg/dL 12/18/2015 Comp Metabolic Rcc286 AL K PHOS 77 U/L 12/18/2015 Comp Metabolic Rxn946 T(SGOT) 19 U/L 12/18/2015 Comp Metabolic Goy020 AL T(SGPT) 17 U/L 12/18/2015 Comp Metabolic Jdj904 BI LI T 0.8 mg/dL 12/18/2015 Comp Metabolic Cdr991 AL BUMIN 4.3 g/dL 12/18/2015 Comp Metabolic Iyd451 TP RO 6.7 g/dL 12/18/2015 Comp Metabolic Wkl424 GL OB 2.4 g/dL 12/18/2015 Comp Metabolic Hyf694 A/ G Ratio 1.7 Ratio 12/18/2015 Comp Metabolic Vhg773 Os mo 276 mOsmo 12/18/2015 Cbc With Differential Ord2 WBC 8.41 K/ul 12/18/2015 Cbc With Differential Ord2 RBC 5.18 M/ul 12/18/2015 Cbc With Differential Ord2 HGB 15.3 g/dl 12/18/2015 Cbc With Differential Ord2 HCT 46.3 % 12/18/2015 Cbc With Differential Ord2 Neut% 58.3 % 12/18/2015 Cbc With Differential Ord2 MCV 89.4 fl 12/18/2015 Cbc With Differential Ord2 Lymph% 30.6 % 12/18/2015 Cbc With Differential Ord2 MCH 29.5 pg 12/18/2015 Cbc With Differential Ord2 [place]% 9.4 % 12/18/2015 Cbc With Differential Ord2 MCHC 33.0 pg 12/18/2015 Cbc With Differential Ord2 Eos% 1.2 % 12/18/2015 Cbc With Differential Ord2 PLT 306 K/ul 12/18/2015 Cbc With Differential Ord2 Baso% 0.5 % 12/18/2015 Cbc With Differential Ord2 RDW 14.9 % 12/18/2015 Cbc With Differential Ord2 Neut ABS# 4.91 K/ul 12/18/2015 Cbc With Differential Ord2 Lymph ABS# 2.57 K/ul 12/18/2015 Cbc With Differential Ord2 [place] ABS# 0.8 K/ul 12/18/2015 Cbc With Differential Ord2 Eos ABS# 0.1 K/ul 12/18/2015 Cbc With Differential Ord2 Baso ABS# 0.0 K/ul 12/18/2015 Cbc With Differential Ord2 New Analyzer Notice Please note new ref ranges s tarting 10-15-2015 due to implemntation of new five part differential hematolgy analyzer. 12/18/2015 Total T3 Ord42 TT3 1.0 ng/ml 07/10/2015 Free T4 Jsu026 FREE T4 0.90 ng/dL 07/09/2015 Free T3 Mmz354 Free T3 2.92 pg/ml 07/09/2015 Tsh Ord6 hTSH II 1.18 uIU/mL 07/09/2015 URINALYSIS NONAUTO W/O SCOPE 30546 Specific [place] 1.005 DateTime(Free Text in Aprima) URINALYSIS NONAUTO W/O SCOPE 72453 PH 6 DateTime(Free Text in Aprima) URINALYSIS NONAUTO W/O SCOPE 80577 GLUCOSE neg DateTime(Free Dano t in Aprima) URINALYSIS NONAUTO W/O SCOPE 66531 Protein neg DateTime(Free Dano t in Aprima) URINALYSIS NONAUTO W/O SCOPE 53747 Blood neg DateTime(Free Dano t in Apr) URINALYSIS NONAUTO W/O SCOPE 52355 Bilirubin neg DateTime(Free Dano t in Apr) URINALYSIS NONAUTO W/O SCOPE 54332 Ketones neg DateTime(Free Dano t in Aprima) URINALYSIS NONAUTO W/O SCOPE 55908 Urobilinogen neg DateTime(Free Text in Apr) URINALYSIS NONAUTO W/O SCOPE 07944 Nitrite neg DateTime(Free Dano t in ) URINALYSIS NONAUTO W/O SCOPE 73125 Leukocytes neg DateTime(Free Text in ) Review of Systems System Result Effective Dates Constitutional No recent illness 03/20/2019 Constitutional No night sweats 03/20/2019 Constitutional No chills 03/20/2019 Constitutional No diaphoresis 03/20/2019 Constitutional No fatigue 03/20/2019 Constitutional No fever 03/20/2019 Constitutional No insomnia 03/20/2019 Constitutional No malaise 03/20/2019 Constitutional No weight loss 03/20/2019 Constitutional No weight gain 03/20/2019 Constitutional No obesity 03/20/2019 Eyes No blindness 2018 Eyes No eye discharge Eyes No eye erythema Eyes No eye floaters Eyes No eye foreign body 03/20/2019 Eyes No eye pain 019 Eyes No eye tearing 03/03 Eyes No eye trauma 03/20 Eyes No eyelid edema Eyes No eyelid erythema 03/20/2019 Eyes No eyelid pain 03/03 Eyes No photophobia 03/03 Eyes No vision change Eyes No amblyopia 2018 Eyes No cataract 019 Eyes No glaucoma 019 Eyes No macular degeneration 03/20/2019 Ears/Nose/Throat/Neck No dry mouth 03/20/2019 Ears/Nose/Throat/Neck No dental pain 03/20/2019 Ears/Nose/Throat/Neck No dizziness 03/20/2019 Ears/Nose/Throat/Neck No dysphagia 03/20/2019 Ears/Nose/Throat/Neck No headache 03/20/2019 Ears/Nose/Throat/Neck No hearing loss 03/20/2019 Ears/Nose/Throat/Neck No nasal allergies 03/20/2019 Ears/Nose/Throat/Neck No nasal discharge 03/20/2019 Ears/Nose/Throat/Neck No postnasal drip 03/20/2019 Ears/Nose/Throat/Neck No sinus congestion 03/20/2019 Ears/Nose/Throat/Neck No sore throat 03/20/2019 Cardiovascular No arrhythmia 03/20/2019 Cardiovascular No chest pain/pressure 03/20/2019 Cardiovascular No dyspnea 03/20/2019 Cardiovascular No edema 03/20/2019 Cardiovascular No exercise intolerance 03/20/2019 Cardiovascular No fatigue 03/20/2019 Cardiovascular No near-syncope/dizziness 03/20/2019 Cardiovascular No orthopnea 03/20/2019 Cardiovascular No palpitations 03/20/2019 Respiratory No electronic cigarettes/Vapor 03/20/2019 Respiratory No asthma Respiratory No pleuritic pain 03/20/2019 Respiratory No productive sputum 03/20/2019 Respiratory No chest tightness 03/20/2019 Respiratory No cigarette smoking 03/20/2019 Respiratory No cough Respiratory No dyspnea 0 03/20/2019 Respiratory No pedal edema 03/20/2019 Respiratory No snoring 0 03/20/2019 Respiratory No wheezing 03/20/2019 Gastrointestinal No hemorrhoids 03/20/2019 Gastrointestinal No abdominal pain 03/20/2019 Gastrointestinal No constipation 03/20/2019 Gastrointestinal No diarrhea 03/20/2019 Gastrointestinal No gastroesophageal reflu x 03/20/2019 Gastrointestinal No melena 03/20/2019 Gastrointestinal No nausea 03/20/2019 Gastrointestinal No vomiting 03/20/2019 Genitourinary/Nephrology No dysuria 03/20/2019 Genitourinary/Nephrology No nocturia 03/20/2019 Genitourinary/Nephrology No urinary incontinence 03/20/2019 Musculoskeletal No stiffness 03/20/2019 Musculoskeletal No swelling 03/20/2019 Musculoskeletal No muscle weakness 03/20/2019 Musculoskeletal No myalgias 03/20/2019 Dermatologic No pruritus 03/20/2019 Dermatologic No rash Dermatologic No scar Neurologic No dizziness 03/20/2019 Neurologic No headache 0 03/20/2019 Neurologic No neck pain 03/20/2019 Neurologic No syncope Psychiatric No confusion 03/20/2019 Psychiatric No anxiety 0 03/20/2019 Psychiatric No depression 03/20/2019 Musculoskeletal arthralgia(s) 03/20/2019 Musculoskeletal joint complaint 03/20/2019 Constitutional No recent illness 03/15/2019 Constitutional No night sweats 03/15/2019 Constitutional No chills 03/15/2019 Constitutional No diaphoresis 03/15/2019 Constitutional fatigue 0 03/15/2019 Constitutional No fever 03/15/2019 Constitutional No insomnia 03/15/2019 Constitutional No malaise 03/15/2019 Constitutional No weight loss 03/15/2019 Constitutional No weight gain 03/15/2019 Constitutional No obesity 03/15/2019 Eyes No blindness 2018 Eyes No eye discharge Eyes No eye erythema Eyes No eye floaters Eyes No eye foreign body 03/15/2019 Eyes No eye pain 019 Eyes No eye tearing 03/03 Eyes No eye trauma 03/15 Eyes No eyelid edema Eyes No eyelid erythema 03/15/2019 Eyes No eyelid pain 03/03 Eyes No photophobia 03/03 Eyes No vision change Eyes No amblyopia 2018 Eyes No cataract 019 Eyes No glaucoma 019 Eyes No macular degeneration 03/15/2019 Ears/Nose/Throat/Neck No dry mouth 03/15/2019 Ears/Nose/Throat/Neck No dental pain 03/15/2019 Ears/Nose/Throat/Neck No dizziness 03/15/2019 Ears/Nose/Throat/Neck No dysphagia 03/15/2019 Ears/Nose/Throat/Neck No headache 03/15/2019 Ears/Nose/Throat/Neck No hearing loss 03/15/2019 Ears/Nose/Throat/Neck No nasal allergies 03/15/2019 Ears/Nose/Throat/Neck No nasal discharge 03/15/2019 Ears/Nose/Throat/Neck No postnasal drip 03/15/2019 Ears/Nose/Throat/Neck No sinus congestion 03/15/2019 Ears/Nose/Throat/Neck No sore throat 03/15/2019 Cardiovascular No arrhythmia 03/15/2019 Cardiovascular No chest pain/pressure 03/15/2019 Cardiovascular No dyspnea 03/15/2019 Cardiovascular No edema 03/15/2019 Cardiovascular No exercise intolerance 03/15/2019 Cardiovascular No fatigue 03/15/2019 Cardiovascular No near-syncope/dizziness 03/15/2019 Cardiovascular No orthopnea 03/15/2019 Cardiovascular No palpitations 03/15/2019 Respiratory No electronic cigarettes/Vapor 03/15/2019 Respiratory No asthma Respiratory No pleuritic pain 03/15/2019 Respiratory No productive sputum 03/15/2019 Respiratory No chest tightness 03/15/2019 Respiratory No cigarette smoking 03/15/2019 Respiratory No cough Respiratory No dyspnea 0 03/15/2019 Respiratory No pedal edema 03/15/2019 Respiratory No snoring 0 03/15/2019 Respiratory No wheezing 03/15/2019 Gastrointestinal No hemorrhoids 03/15/2019 Gastrointestinal No abdominal pain 03/15/2019 Gastrointestinal No constipation 03/15/2019 Gastrointestinal No diarrhea 03/15/2019 Gastrointestinal No gastroesophageal reflu x 03/15/2019 Gastrointestinal No melena 03/15/2019 Gastrointestinal No nausea 03/15/2019 Gastrointestinal No vomiting 03/15/2019 Genitourinary/Nephrology No dysuria 03/15/2019 Genitourinary/Nephrology No nocturia 03/15/2019 Genitourinary/Nephrology No urinary incontinence 03/15/2019 Musculoskeletal swelling 03/15/2019 Musculoskeletal muscle weakness 03/15/2019 Neurologic No dizziness 03/15/2019 Neurologic No headache 0 03/15/2019 Neurologic No neck pain 03/15/2019 Neurologic No syncope Constitutional No anorexia 03/15/2019 Dermatologic No drainage 03/15/2019 Dermatologic No erythema 03/15/2019 Constitutional No recent illness 01/08/2019 Constitutional No anorexia 01/08/2019 Constitutional No night sweats 01/08/2019 Constitutional No chills 01/08/2019 Constitutional No diaphoresis 01/08/2019 Constitutional No fatigue 01/08/2019 Constitutional No fever 01/08/2019 Constitutional No insomnia 01/08/2019 Constitutional No malaise 01/08/2019 Constitutional No weight loss 01/08/2019 Constitutional No weight gain 01/08/2019 Eyes No eye discharge Eyes No eye erythema 05/2019 Cardiovascular No chest pain/pressure 01/08/2019 Respiratory No cough 05/2019 Gastrointestinal No constipation 01/08/2019 Gastrointestinal No diarrhea 01/08/2019 Gastrointestinal No nausea 01/08/2019 Gastrointestinal No vomiting 01/08/2019 Musculoskeletal No joint complaint 01/08/2019 Dermatologic No rash 05/2019 Neurologic No alteration of consciousness 01/08/2019 Constitutional No recent illness 01/01/2019 Constitutional No anorexia 01/01/2019 Constitutional No night sweats 01/01/2019 Constitutional No chills 01/01/2019 Constitutional No diaphoresis 01/01/2019 Constitutional No fatigue 01/01/2019 Constitutional No fever 01/01/2019 Constitutional No insomnia 01/01/2019 Constitutional No weight loss 01/01/2019 Constitutional No weight gain 01/01/2019 Constitutional No malaise 01/01/2019 Eyes No eye erythema 10/2018 Eyes No eye discharge Cardiovascular No chest pain/pressure 01/01/2019 Respiratory No cough 10/2018 Gastrointestinal No vomiting 01/01/2019 Gastrointestinal No nausea 01/01/2019 Gastrointestinal No diarrhea 01/01/2019 Gastrointestinal No constipation 01/01/2019 Musculoskeletal No joint complaint 01/01/2019 Dermatologic No rash 10/2018 Neurologic No alteration of consciousness 01/01/2019 Constitutional No recent illness 12/18/2018 Constitutional No anorexia 12/18/2018 Constitutional No night sweats 12/18/2018 Constitutional No chills 12/18/2018 Constitutional No diaphoresis 12/18/2018 Constitutional fatigue 0 12/18/2018 Constitutional No fever 12/18/2018 Constitutional No insomnia 12/18/2018 Constitutional malaise 0 12/18/2018 Eyes No eye discharge Eyes No eye erythema Ears/Nose/Throat/Neck dizziness 12/18/2018 Ears/Nose/Throat/Neck No nasal allergies 12/18/2018 Ears/Nose/Throat/Neck No nasal discharge 12/18/2018 Cardiovascular No chest pain/pressure 12/18/2018 Cardiovascular No dyspnea 12/18/2018 Cardiovascular No edema 12/18/2018 Cardiovascular fatigue 0 12/18/2018 Cardiovascular hypertension 12/18/2018 Respiratory No cigarette smoking 12/18/2018 Respiratory No cough Respiratory No dyspnea on exertion 12/18/2018 Respiratory No dyspnea 0 12/18/2018 Gastrointestinal No constipation 12/18/2018 Gastrointestinal No diarrhea 12/18/2018 Genitourinary/Nephrology No dysuria 12/18/2018 Genitourinary/Nephrology No nocturia 12/18/2018 Musculoskeletal stiffness 12/18/2018 Musculoskeletal arthralgia(s) 12/18/2018 Musculoskeletal back pain 12/18/2018 Musculoskeletal muscle weakness 12/18/2018 Musculoskeletal myalgias 12/18/2018 Dermatologic No rash Dermatologic No sores Neurologic dizziness Neurologic headache 12/01 Psychiatric No anxiety 0 12/18/2018 Psychiatric No depression 12/18/2018 Gastrointestinal abdominal pain 12/18/2018 Constitutional No recent illness 09/18/2018 Constitutional No anorexia 09/18/2018 Constitutional No night sweats 09/18/2018 Constitutional No chills 09/18/2018 Constitutional No diaphoresis 09/18/2018 Constitutional fatigue 1 11/19/2017 Constitutional No fever 09/18/2018 Constitutional No insomnia 09/18/2018 Constitutional malaise 1 11/19/2017 Eyes No eye discharge Eyes No eye erythema Ears/Nose/Throat/Neck dizziness 09/18/2018 Ears/Nose/Throat/Neck No nasal allergies 09/18/2018 Ears/Nose/Throat/Neck No nasal discharge 09/18/2018 Cardiovascular No chest pain/pressure 09/18/2018 Cardiovascular No dyspnea 09/18/2018 Cardiovascular No edema 09/18/2018 Cardiovascular fatigue 1 11/19/2017 Cardiovascular hypertension 09/18/2018 Respiratory No cigarette smoking 09/18/2018 Respiratory No cough Respiratory No dyspnea on exertion 09/18/2018 Respiratory No dyspnea 1 11/19/2017 Gastrointestinal No constipation 09/18/2018 Gastrointestinal No diarrhea 09/18/2018 Genitourinary/Nephrology No dysuria 09/18/2018 Genitourinary/Nephrology No nocturia 09/18/2018 Musculoskeletal stiffness 09/18/2018 Musculoskeletal arthralgia(s) 09/18/2018 Musculoskeletal back pain 09/18/2018 Musculoskeletal muscle weakness 09/18/2018 Musculoskeletal myalgias 09/18/2018 Dermatologic No rash Dermatologic No sores Neurologic dizziness Neurologic headache 09/02 Psychiatric No anxiety 1 11/19/2017 Psychiatric No depression 09/18/2018 Constitutional recent illness 08/31/2018 Constitutional No anorexia 08/31/2018 Constitutional No night sweats 08/31/2018 Constitutional No chills 08/31/2018 Constitutional No diaphoresis 08/31/2018 Constitutional No fatigue 08/31/2018 Constitutional No fever 08/31/2018 Constitutional No insomnia 08/31/2018 Constitutional No weight loss 08/31/2018 Constitutional No weight gain 08/31/2018 Constitutional No malaise 08/31/2018 Eyes No eye discharge Eyes No eye erythema Ears/Nose/Throat/Neck No dizziness 08/31/2018 Ears/Nose/Throat/Neck No headache 08/31/2018 Ears/Nose/Throat/Neck nasal allergies 08/31/2018 Ears/Nose/Throat/Neck nasal discharge 08/31/2018 Ears/Nose/Throat/Neck No otalgia 08/31/2018 Ears/Nose/Throat/Neck sinus congestion 08/31/2018 Ears/Nose/Throat/Neck No sore throat 08/31/2018 Cardiovascular No chest pain/pressure 08/31/2018 Respiratory No productive sputum 08/31/2018 Respiratory cough 2017 Gastrointestinal No abdominal pain 08/31/2018 Gastrointestinal No anorexia 08/31/2018 Gastrointestinal No constipation 08/31/2018 Gastrointestinal No diarrhea 08/31/2018 Genitourinary/Nephrology No dysuria 08/31/2018 Musculoskeletal No joint complaint 08/31/2018 Dermatologic No pigmentation change 08/31/2018 Dermatologic No rash Dermatologic No sores Constitutional recent illness 08/14/2018 Constitutional No chills 08/14/2018 Constitutional No diaphoresis 08/14/2018 Constitutional No fever 08/14/2018 Eyes No blindness 2017 Ears/Nose/Throat/Neck nasal allergies 08/14/2018 Ears/Nose/Throat/Neck nasal discharge 08/14/2018 Ears/Nose/Throat/Neck postnasal drip 08/14/2018 Ears/Nose/Throat/Neck sinus congestion 08/14/2018 Ears/Nose/Throat/Neck sore throat 08/14/2018 Cardiovascular No chest pain/pressure 08/14/2018 Cardiovascular No dyspnea 08/14/2018 Respiratory No chest congestion 08/14/2018 Respiratory cough 2017 Respiratory No dyspnea 1 10/14/2017 Gastrointestinal No constipation 08/14/2018 Gastrointestinal No diarrhea 08/14/2018 Gastrointestinal No nausea 08/14/2018 Gastrointestinal No vomiting 08/14/2018 Dermatologic No rash 09/2018 Neurologic No alteration of consciousness 08/14/2018 Neurologic No mental status change 08/14/2018 Genitourinary/Nephrology No dysuria 08/14/2018 Constitutional No anorexia 08/14/2018 Constitutional No night sweats 08/14/2018 Constitutional No fatigue 08/14/2018 Constitutional No insomnia 08/14/2018 Constitutional No malaise 08/14/2018 Constitutional No weight loss 08/14/2018 Constitutional No weight gain 08/14/2018 Constitutional No recent illness 05/22/2018 Constitutional No chills 05/22/2018 Constitutional No fever 05/22/2018 Eyes No eye erythema Ears/Nose/Throat/Neck No nasal discharge 05/22/2018 Cardiovascular No chest pain/pressure 05/22/2018 Cardiovascular No dyspnea 05/22/2018 Respiratory No cough Respiratory No dyspnea 0 05/22/2018 Musculoskeletal joint complaint 05/22/2018 Neurologic No alteration of consciousness 05/22/2018 Neurologic No mental status change 05/22/2018 Musculoskeletal shoulder pain 05/22/2018 Constitutional No recent illness 11/18/2017 Constitutional No anorexia 11/18/2017 Constitutional No night sweats 11/18/2017 Constitutional No chills 11/18/2017 Constitutional No diaphoresis 11/18/2017 Constitutional fatigue 0 11/18/2017 Constitutional No fever 11/18/2017 Constitutional No insomnia 11/18/2017 Constitutional malaise 0 11/18/2017 Eyes No eye discharge Eyes No eye erythema Ears/Nose/Throat/Neck dizziness 11/18/2017 Ears/Nose/Throat/Neck No nasal allergies 11/18/2017 Ears/Nose/Throat/Neck No nasal discharge 11/18/2017 Cardiovascular No chest pain/pressure 11/18/2017 Cardiovascular No dyspnea 11/18/2017 Cardiovascular No edema 11/18/2017 Cardiovascular fatigue 0 11/18/2017 Cardiovascular hypertension 11/18/2017 Respiratory No cigarette smoking 11/18/2017 Respiratory No cough Respiratory No dyspnea on exertion 11/18/2017 Respiratory No dyspnea 0 11/18/2017 Gastrointestinal No constipation 11/18/2017 Gastrointestinal No diarrhea 11/18/2017 Genitourinary/Nephrology No dysuria 11/18/2017 Genitourinary/Nephrology No nocturia 11/18/2017 Musculoskeletal stiffness 11/18/2017 Musculoskeletal arthralgia(s) 11/18/2017 Musculoskeletal back pain 11/18/2017 Musculoskeletal muscle weakness 11/18/2017 Musculoskeletal myalgias 11/18/2017 Dermatologic No rash Dermatologic No sores Neurologic dizziness Neurologic headache 11/03 Psychiatric No anxiety 0 11/18/2017 Psychiatric No depression 11/18/2017 Constitutional recent illness 08/03/2017 Constitutional No chills 08/03/2017 Constitutional No diaphoresis 08/03/2017 Constitutional No fever 08/03/2017 Eyes No eye erythema 10/2016 Ears/Nose/Throat/Neck No nasal discharge 08/03/2017 Ears/Nose/Throat/Neck No nasal allergies 08/03/2017 Cardiovascular No chest pain/pressure 08/03/2017 Cardiovascular No dyspnea 08/03/2017 Respiratory No cough 10/2016 Respiratory No chest congestion 08/03/2017 Gastrointestinal No abdominal pain 08/03/2017 Gastrointestinal No constipation 08/03/2017 Gastrointestinal diarrhea 08/03/2017 Gastrointestinal No vomiting 08/03/2017 Gastrointestinal No nausea 08/03/2017 Gastrointestinal No melena 08/03/2017 Gastrointestinal No hematochezia 08/03/2017 Gastrointestinal No gastroesophageal reflu x 08/03/2017 Musculoskeletal No joint complaint 08/03/2017 Dermatologic No rash 10/2016 Neurologic No alteration of consciousness 08/03/2017 Neurologic No mental status change 08/03/2017 Constitutional No recent illness 07/05/2017 Constitutional No anorexia 07/05/2017 Constitutional No night sweats 07/05/2017 Constitutional No chills 07/05/2017 Constitutional No diaphoresis 07/05/2017 Constitutional fatigue 1 Constitutional No fever 07/05/2017 Constitutional No insomnia 07/05/2017 Constitutional malaise 1 Eyes No eye discharge Eyes No eye erythema 12/2016 Ears/Nose/Throat/Neck dizziness 07/05/2017 Ears/Nose/Throat/Neck No nasal allergies 07/05/2017 Ears/Nose/Throat/Neck No nasal discharge 07/05/2017 Cardiovascular No chest pain/pressure 07/05/2017 Cardiovascular No dyspnea 07/05/2017 Cardiovascular No edema 07/05/2017 Cardiovascular fatigue 1 Cardiovascular hypertension 07/05/2017 Respiratory No cigarette smoking 07/05/2017 Respiratory No cough 12/2016 Respiratory No dyspnea on exertion 07/05/2017 Respiratory No dyspnea 1 Gastrointestinal No constipation 07/05/2017 Gastrointestinal No diarrhea 07/05/2017 Genitourinary/Nephrology No dysuria 07/05/2017 Genitourinary/Nephrology No nocturia 07/05/2017 Neurologic dizziness 12/2016 Neurologic headache 12/2016 Dermatologic No rash 12/2016 Dermatologic No sores Musculoskeletal stiffness 07/05/2017 Musculoskeletal arthralgia(s) 07/05/2017 Musculoskeletal back pain 07/05/2017 Musculoskeletal myalgias 07/05/2017 Musculoskeletal muscle weakness 07/05/2017 Constitutional No recent illness 12/02/2016 Constitutional No anorexia 12/02/2016 Constitutional No night sweats 12/02/2016 Constitutional No chills 12/02/2016 Constitutional No diaphoresis 12/02/2016 Constitutional fatigue 0 12/02/2016 Constitutional No fever 12/02/2016 Constitutional insomnia 12/02/2016 Constitutional No malaise 12/02/2016 Constitutional No weight loss 12/02/2016 Constitutional No weight gain 12/02/2016 Eyes No eye discharge Eyes No eye erythema 11/2016 Ears/Nose/Throat/Neck dizziness 12/02/2016 Ears/Nose/Throat/Neck headache 12/02/2016 Cardiovascular No chest pain/pressure 12/02/2016 Cardiovascular No dyspnea 12/02/2016 Respiratory No productive sputum 12/02/2016 Respiratory No cough 11/2016 Gastrointestinal No abdominal pain 12/02/2016 Gastrointestinal No constipation 12/02/2016 Gastrointestinal No diarrhea 12/02/2016 Genitourinary/Nephrology No dysuria 12/02/2016 Gastrointestinal gas and bloating 12/02/2016 Musculoskeletal joint complaint 12/02/2016 Dermatologic No rash 11/2016 Neurologic No alteration of consciousness 12/02/2016 Constitutional No recent illness 11/22/2016 Constitutional No anorexia 11/22/2016 Constitutional No night sweats 11/22/2016 Constitutional No chills 11/22/2016 Constitutional No diaphoresis 11/22/2016 Constitutional fatigue 0 11/22/2016 Constitutional No fever 11/22/2016 Constitutional No insomnia 11/22/2016 Constitutional No malaise 11/22/2016 Eyes No eye discharge Eyes No eye erythema Ears/Nose/Throat/Neck dizziness 11/22/2016 Ears/Nose/Throat/Neck No nasal allergies 11/22/2016 Ears/Nose/Throat/Neck No nasal discharge 11/22/2016 Cardiovascular No chest pain/pressure 11/22/2016 Cardiovascular No dyspnea 11/22/2016 Cardiovascular No edema 11/22/2016 Cardiovascular fatigue 0 11/22/2016 Cardiovascular hypertension 11/22/2016 Respiratory No cigarette smoking 11/22/2016 Respiratory No cough Respiratory No dyspnea on exertion 11/22/2016 Respiratory No dyspnea 0 11/22/2016 Gastrointestinal No constipation 11/22/2016 Gastrointestinal No diarrhea 11/22/2016 Genitourinary/Nephrology No dysuria 11/22/2016 Genitourinary/Nephrology No nocturia 11/22/2016 Neurologic dizziness Neurologic headache 11/04 Constitutional recent illness 11/05/2016 Constitutional chills Constitutional No diaphoresis 11/05/2016 Constitutional fever 12/2016 Eyes No eye erythema 12/2016 Ears/Nose/Throat/Neck nasal allergies 11/05/2016 Ears/Nose/Throat/Neck nasal discharge 11/05/2016 Ears/Nose/Throat/Neck postnasal drip 11/05/2016 Ears/Nose/Throat/Neck sinus congestion 11/05/2016 Ears/Nose/Throat/Neck sore throat 11/05/2016 Cardiovascular No chest pain/pressure 11/05/2016 Cardiovascular No dyspnea 11/05/2016 Respiratory No chest congestion 11/05/2016 Respiratory cough 2016 Respiratory No dyspnea 0 11/05/2016 Gastrointestinal No constipation 11/05/2016 Gastrointestinal No diarrhea 11/05/2016 Gastrointestinal No nausea 11/05/2016 Gastrointestinal No vomiting 11/05/2016 Dermatologic No rash 12/2016 Neurologic No alteration of consciousness 11/05/2016 Neurologic No mental status change 11/05/2016 Constitutional No recent illness 07/22/2016 Constitutional No chills 07/22/2016 Constitutional fatigue 1 Constitutional No fever 07/22/2016 Constitutional No insomnia 07/22/2016 Ears/Nose/Throat/Neck No dizziness 07/22/2016 Cardiovascular No chest pain/pressure 07/22/2016 Cardiovascular No dyspnea 07/22/2016 Cardiovascular No edema 07/22/2016 Cardiovascular fatigue 1 Cardiovascular No palpitations 07/22/2016 Respiratory No chest congestion 07/22/2016 Gastrointestinal No abdominal pain 07/22/2016 Gastrointestinal No diarrhea 07/22/2016 Gastrointestinal No vomiting 07/22/2016 Genitourinary/Nephrology No dysuria 07/22/2016 Genitourinary/Nephrology No urinary frequency 07/22/2016 Musculoskeletal arthralgia(s) 07/22/2016 Dermatologic No sores Neurologic dizziness Psychiatric No anxiety 1 Psychiatric No depression 07/22/2016 Eyes No vision change Musculoskeletal muscle weakness 07/22/2016 Constitutional No recent illness 05/19/2016 Constitutional No chills 05/19/2016 Constitutional No diaphoresis 05/19/2016 Constitutional fatigue 0 05/19/2016 Eyes No eye discharge Eyes No eye erythema Ears/Nose/Throat/Neck dizziness 05/19/2016 Ears/Nose/Throat/Neck No headache 05/19/2016 Ears/Nose/Throat/Neck No nasal allergies 05/19/2016 Ears/Nose/Throat/Neck No nasal discharge 05/19/2016 Cardiovascular No chest pain/pressure 05/19/2016 Cardiovascular No dyspnea 05/19/2016 Cardiovascular No edema 05/19/2016 Respiratory No chest congestion 05/19/2016 Respiratory No cough Gastrointestinal No abdominal pain 05/19/2016 Gastrointestinal constipation 05/19/2016 Gastrointestinal No diarrhea 05/19/2016 Gastrointestinal No nausea 05/19/2016 Gastrointestinal No vomiting 05/19/2016 Genitourinary/Nephrology No dysuria 05/19/2016 Musculoskeletal joint complaint 05/19/2016 Dermatologic No rash Neurologic No alteration of consciousness 05/19/2016 Neurologic No mental status change 05/19/2016 Constitutional No recent illness 02/13/2016 Constitutional No anorexia 02/13/2016 Constitutional No night sweats 02/13/2016 Constitutional No chills 02/13/2016 Constitutional No diaphoresis 02/13/2016 Constitutional fatigue 0 02/13/2016 Constitutional No fever 02/13/2016 Constitutional No insomnia 02/13/2016 Constitutional No malaise 02/13/2016 Constitutional No weight loss 02/13/2016 Constitutional No weight gain 02/13/2016 Constitutional No obesity 02/13/2016 Cardiovascular No chest pain/pressure 02/13/2016 Cardiovascular No edema 02/13/2016 Cardiovascular hypertension 02/13/2016 Cardiovascular fatigue 0 02/13/2016 Cardiovascular No dyspnea 02/13/2016 Ears/Nose/Throat/Neck dizziness 02/13/2016 Ears/Nose/Throat/Neck No nasal discharge 02/13/2016 Ears/Nose/Throat/Neck No nasal allergies 02/13/2016 Respiratory No cigarette smoking 02/13/2016 Respiratory No cough Respiratory No dyspnea on exertion 02/13/2016 Respiratory No dyspnea 0 02/13/2016 Genitourinary/Nephrology No dysuria 02/13/2016 Genitourinary/Nephrology No nocturia 02/13/2016 Eyes No eye discharge Eyes No eye erythema Gastrointestinal No diarrhea 02/13/2016 Gastrointestinal No constipation 02/13/2016 Neurologic dizziness Neurologic headache 01/31 Constitutional No recent illness 01/13/2016 Constitutional No anorexia 01/13/2016 Constitutional No night sweats 01/13/2016 Constitutional No chills 01/13/2016 Constitutional No diaphoresis 01/13/2016 Constitutional No fatigue 01/13/2016 Constitutional No fever 01/13/2016 Constitutional No insomnia 01/13/2016 Constitutional No malaise 01/13/2016 Constitutional No weight loss 01/13/2016 Constitutional No weight gain 01/13/2016 Constitutional No obesity 01/13/2016 Cardiovascular No chest pain/pressure 01/13/2016 Cardiovascular No dyspnea 01/13/2016 Cardiovascular No edema 01/13/2016 Cardiovascular palpitations 01/13/2016 Cardiovascular No near-syncope/dizziness 01/13/2016 Neurologic dizziness 09/2016 Neurologic headache 01/01 Respiratory No cigarette smoking 01/13/2016 Respiratory No cough 09/2016 Respiratory No chest tightness 01/13/2016 Respiratory No chest congestion 01/13/2016 Respiratory No dyspnea on exertion 01/13/2016 Respiratory No dyspnea 0 01/13/2016 Constitutional No recent illness 01/02/2016 Constitutional No chills 01/02/2016 Constitutional No diaphoresis 01/02/2016 Constitutional fatigue 0 01/02/2016 Constitutional No fever 01/02/2016 Constitutional No insomnia 01/02/2016 Constitutional No malaise 01/02/2016 Eyes No eye discharge Eyes No eye erythema 10/2015 Ears/Nose/Throat/Neck dizziness 01/02/2016 Ears/Nose/Throat/Neck No headache 01/02/2016 Cardiovascular No chest pain/pressure 01/02/2016 Cardiovascular No dyspnea 01/02/2016 Cardiovascular No edema 01/02/2016 Respiratory No cough 10/2015 Gastrointestinal No abdominal pain 01/02/2016 Genitourinary/Nephrology No dysuria 01/02/2016 Musculoskeletal joint complaint 01/02/2016 Dermatologic No rash 10/2015 Ears/Nose/Throat/Neck No nasal allergies 01/02/2016 Ears/Nose/Throat/Neck No nasal discharge 01/02/2016 Respiratory No chest congestion 01/02/2016 Gastrointestinal constipation 01/02/2016 Gastrointestinal No diarrhea 01/02/2016 Gastrointestinal No nausea 01/02/2016 Gastrointestinal No vomiting 01/02/2016 Neurologic No alteration of consciousness 01/02/2016 Neurologic No mental status change 01/02/2016 Constitutional No recent illness 12/18/2015 Constitutional No anorexia 12/18/2015 Constitutional No night sweats 12/18/2015 Constitutional No chills 12/18/2015 Constitutional No diaphoresis 12/18/2015 Constitutional No fatigue 12/18/2015 Constitutional No fever 12/18/2015 Constitutional No insomnia 12/18/2015 Constitutional No malaise 12/18/2015 Constitutional No weight loss 12/18/2015 Constitutional No weight gain 12/18/2015 Eyes No eye discharge Eyes No eye erythema Ears/Nose/Throat/Neck dizziness 12/18/2015 Ears/Nose/Throat/Neck No headache 12/18/2015 Cardiovascular No chest pain/pressure 12/18/2015 Cardiovascular No dyspnea 12/18/2015 Cardiovascular No edema 12/18/2015 Respiratory No cough Gastrointestinal No abdominal pain 12/18/2015 Genitourinary/Nephrology No dysuria 12/18/2015 Musculoskeletal joint complaint 12/18/2015 Dermatologic No rash Constitutional No recent illness 09/08/2015 Constitutional No chills 09/08/2015 Constitutional fatigue 1 11/09/2014 Constitutional No fever 09/08/2015 Constitutional No insomnia 09/08/2015 Ears/Nose/Throat/Neck No dizziness 09/08/2015 Cardiovascular No chest pain/pressure 09/08/2015 Cardiovascular dyspnea 1 11/09/2014 Cardiovascular No edema 09/08/2015 Cardiovascular fatigue 1 11/09/2014 Cardiovascular palpitations 09/08/2015 Respiratory No chest congestion 09/08/2015 Gastrointestinal No abdominal pain 09/08/2015 Gastrointestinal No diarrhea 09/08/2015 Gastrointestinal No vomiting 09/08/2015 Genitourinary/Nephrology No dysuria 09/08/2015 Genitourinary/Nephrology No urinary frequency 09/08/2015 Musculoskeletal arthralgia(s) 09/08/2015 Dermatologic No sores Neurologic dizziness 04/2015 Psychiatric No anxiety 1 11/09/2014 Psychiatric No depression 09/08/2015 Constitutional No recent illness 07/09/2015 Constitutional No chills 07/09/2015 Constitutional No fatigue 07/09/2015 Constitutional No fever 07/09/2015 Constitutional No insomnia 07/09/2015 Ears/Nose/Throat/Neck No dizziness 07/09/2015 Cardiovascular No chest pain/pressure 07/09/2015 Cardiovascular No dyspnea 07/09/2015 Cardiovascular No edema 07/09/2015 Cardiovascular No fatigue 07/09/2015 Cardiovascular palpitations 07/09/2015 Respiratory No chest congestion 07/09/2015 Gastrointestinal No abdominal pain 07/09/2015 Gastrointestinal No diarrhea 07/09/2015 Gastrointestinal No vomiting 07/09/2015 Genitourinary/Nephrology No dysuria 07/09/2015 Genitourinary/Nephrology No urinary frequency 07/09/2015 Musculoskeletal arthralgia(s) 07/09/2015 Dermatologic No sores Neurologic No dizziness 07/09/2015 Psychiatric No anxiety 1 Psychiatric No depression 07/09/2015 Constitutional No malaise 07/09/2015 Eyes No blindness 2014 Eyes No vision change Ears/Nose/Throat/Neck No dental pain 07/09/2015 Ears/Nose/Throat/Neck No dysphagia 07/09/2015 Ears/Nose/Throat/Neck No headache 07/09/2015 Ears/Nose/Throat/Neck No hearing loss 07/09/2015 Ears/Nose/Throat/Neck No nasal allergies 07/09/2015 Ears/Nose/Throat/Neck No sore throat 07/09/2015 Ears/Nose/Throat/Neck No postnasal drip 07/09/2015 Ears/Nose/Throat/Neck No sinus congestion 07/09/2015 Cardiovascular No exercise intolerance 07/09/2015 Cardiovascular No near-syncope/dizziness 07/09/2015 Respiratory No chest tightness 07/09/2015 Respiratory No cough 04/2015 Respiratory No dyspnea 1 Respiratory No pedal edema 07/09/2015 Gastrointestinal No constipation 07/09/2015 Gastrointestinal No gastroesophageal reflu x 07/09/2015 Gastrointestinal No nausea 07/09/2015 Genitourinary/Nephrology No nocturia 07/09/2015 Genitourinary/Nephrology No urinary incontinence 07/09/2015 Musculoskeletal No stiffness 07/09/2015 Musculoskeletal No swelling 07/09/2015 Musculoskeletal No muscle weakness 07/09/2015 Musculoskeletal No myalgias 07/09/2015 Dermatologic No rash 04/2015 Dermatologic No scar 04/2015 Neurologic No headache 1 Neurologic No neck pain 07/09/2015 Neurologic No syncope Constitutional No recent illness 01/16/2015 Constitutional No chills 01/16/2015 Constitutional fatigue 0 01/16/2015 Constitutional No fever 01/16/2015 Constitutional No insomnia 01/16/2015 Ears/Nose/Throat/Neck No dizziness 01/16/2015 Cardiovascular No chest pain/pressure 01/16/2015 Cardiovascular dyspnea 0 01/16/2015 Cardiovascular No edema 01/16/2015 Cardiovascular fatigue 0 01/16/2015 Cardiovascular palpitations 01/16/2015 Respiratory No chest congestion 01/16/2015 Gastrointestinal No abdominal pain 01/16/2015 Gastrointestinal No diarrhea 01/16/2015 Gastrointestinal No vomiting 01/16/2015 Genitourinary/Nephrology No dysuria 01/16/2015 Genitourinary/Nephrology No urinary frequency 01/16/2015 Musculoskeletal arthralgia(s) 01/16/2015 Dermatologic No sores Neurologic dizziness Psychiatric No anxiety 0 01/16/2015 Psychiatric No depression 01/16/2015 Constitutional No recent illness 01/03/2015 Constitutional No chills 01/03/2015 Constitutional fatigue 0 01/03/2015 Constitutional No fever 01/03/2015 Constitutional No insomnia 01/03/2015 Ears/Nose/Throat/Neck No dizziness 01/03/2015 Cardiovascular No chest pain/pressure 01/03/2015 Cardiovascular dyspnea 0 01/03/2015 Cardiovascular No edema 01/03/2015 Cardiovascular fatigue 0 01/03/2015 Cardiovascular palpitations 01/03/2015 Respiratory No chest congestion 01/03/2015 Gastrointestinal No abdominal pain 01/03/2015 Gastrointestinal No diarrhea 01/03/2015 Gastrointestinal No vomiting 01/03/2015 Genitourinary/Nephrology No dysuria 01/03/2015 Genitourinary/Nephrology No urinary frequency 01/03/2015 Musculoskeletal arthralgia(s) 01/03/2015 Dermatologic No sores Neurologic dizziness 12/2014 Psychiatric No anxiety 0 01/03/2015 Psychiatric No depression 01/03/2015 Constitutional No chills 09/16/2014 Constitutional No fever 09/16/2014 Eyes No eye erythema Eyes No eye floaters Eyes No eye pain 014 Eyes No vision change Ears/Nose/Throat/Neck No dizziness 09/16/2014 Cardiovascular No chest pain/pressure 09/16/2014 Cardiovascular No dyspnea 09/16/2014 Cardiovascular No edema 09/16/2014 Cardiovascular No palpitations 09/16/2014 Respiratory No chest congestion 09/16/2014 Respiratory No chest tightness 09/16/2014 Gastrointestinal No abdominal pain 09/16/2014 Psychiatric No anxiety 1 11/17/2013 Psychiatric No depression 09/16/2014 Musculoskeletal stiffness 09/16/2014 Musculoskeletal arthralgia(s) 09/16/2014 Musculoskeletal back pain 09/16/2014 Constitutional No recent illness 08/15/2014 Constitutional No insomnia 08/15/2014 Constitutional fatigue 1 10/15/2013 Cardiovascular No chest pain/pressure 08/15/2014 Cardiovascular dyspnea 1 10/15/2013 Cardiovascular No edema 08/15/2014 Respiratory No chest congestion 08/15/2014 Respiratory cough 2013 Gastrointestinal constipation 08/15/2014 Gastrointestinal No diarrhea 08/15/2014 Gastrointestinal nausea 08/15/2014 Gastrointestinal No vomiting 08/15/2014 Gastrointestinal dyspepsia 08/15/2014 Genitourinary/Nephrology No dysuria 08/15/2014 Genitourinary/Nephrology No urinary frequency 08/15/2014 Neurologic dizziness Cardiovascular fatigue 1 10/15/2013 Cardiovascular palpitations 08/15/2014 Psychiatric No anxiety 1 10/15/2013 Psychiatric No depression 08/15/2014 Musculoskeletal arthralgia(s) 08/15/2014 Constitutional No chills 08/15/2014 Constitutional No fever 08/15/2014 Ears/Nose/Throat/Neck No dizziness 08/15/2014 Gastrointestinal No abdominal pain 08/15/2014 Dermatologic No sores Constitutional No chills 06/12/2014 Constitutional No fever 06/12/2014 Eyes No eye erythema 07/2014 Eyes No eye floaters 07/2014 Eyes No eye pain 014 Eyes No vision change Ears/Nose/Throat/Neck No dizziness 06/12/2014 Cardiovascular No chest pain/pressure 06/12/2014 Cardiovascular No dyspnea 06/12/2014 Cardiovascular No edema 06/12/2014 Cardiovascular No palpitations 06/12/2014 Respiratory No chest congestion 06/12/2014 Respiratory No chest tightness 06/12/2014 Gastrointestinal No abdominal pain 06/12/2014 Psychiatric No anxiety 0 06/12/2014 Psychiatric No depression 06/12/2014 Constitutional No chills 03/20/2014 Constitutional No fever 03/20/2014 Eyes No eye erythema Eyes No eye floaters Eyes No eye pain 014 Eyes No vision change Ears/Nose/Throat/Neck No dizziness 03/20/2014 Cardiovascular No chest pain/pressure 03/20/2014 Cardiovascular No dyspnea 03/20/2014 Cardiovascular No edema 03/20/2014 Cardiovascular No palpitations 03/20/2014 Respiratory No chest congestion 03/20/2014 Respiratory No chest tightness 03/20/2014 Gastrointestinal No abdominal pain 03/20/2014 Dermatologic No rash Dermatologic No sores Psychiatric No anxiety 0 03/20/2014 Psychiatric No depression 03/20/2014 Constitutional No chills 12/10/2013 Constitutional No fever 12/10/2013 Eyes No eye erythema 07/2014 Eyes No eye floaters 07/2014 Eyes No eye pain 014 Eyes No vision change Ears/Nose/Throat/Neck No dizziness 12/10/2013 Cardiovascular No chest pain/pressure 12/10/2013 Cardiovascular No dyspnea 12/10/2013 Cardiovascular No edema 12/10/2013 Cardiovascular No palpitations 12/10/2013 Respiratory No chest congestion 12/10/2013 Respiratory No chest tightness 12/10/2013 Gastrointestinal abdominal pain 12/10/2013 Dermatologic No rash 07/2014 Dermatologic No sores Psychiatric No anxiety 0 12/10/2013 Psychiatric No depression 12/10/2013 Gastrointestinal constipation 12/10/2013 Constitutional No chills 09/17/2013 Constitutional No fever 09/17/2013 Eyes No eye erythema Eyes No eye floaters Eyes No eye pain 013 Eyes No vision change Ears/Nose/Throat/Neck No dizziness 09/17/2013 Cardiovascular No chest pain/pressure 09/17/2013 Cardiovascular No dyspnea 09/17/2013 Cardiovascular No edema 09/17/2013 Cardiovascular No palpitations 09/17/2013 Respiratory No chest congestion 09/17/2013 Respiratory No chest tightness 09/17/2013 Gastrointestinal No abdominal pain 09/17/2013 Dermatologic No rash Dermatologic No sores Psychiatric No anxiety 1 11/18/2012 Psychiatric No depression 09/17/2013 Constitutional No chills 05/21/2013 Constitutional No fever 05/21/2013 Eyes No eye erythema Eyes No eye floaters Eyes No eye pain 013 Eyes No vision change Cardiovascular No chest pain/pressure 05/21/2013 Cardiovascular No dyspnea 05/21/2013 Cardiovascular No edema 05/21/2013 Cardiovascular No palpitations 05/21/2013 Respiratory No chest congestion 05/21/2013 Respiratory No chest tightness 05/21/2013 Gastrointestinal No abdominal pain 05/21/2013 Dermatologic No rash Dermatologic No sores Psychiatric No anxiety 0 05/21/2013 Psychiatric No depression 05/21/2013 Ears/Nose/Throat/Neck No dizziness 05/21/2013 Constitutional No chills 01/17/2013 Constitutional No fever 01/17/2013 Eyes No eye erythema Eyes No eye floaters Eyes No eye pain 013 Eyes No vision change Cardiovascular No chest pain/pressure 01/17/2013 Cardiovascular No dyspnea 01/17/2013 Cardiovascular No edema 01/17/2013 Cardiovascular No palpitations 01/17/2013 Respiratory No chest congestion 01/17/2013 Respiratory No chest tightness 01/17/2013 Gastrointestinal No abdominal pain 01/17/2013 Dermatologic No rash Dermatologic No sores Psychiatric No anxiety 0 01/17/2013 Psychiatric No depression 01/17/2013 Constitutional No chills 09/20/2012 Constitutional No fever 09/20/2012 Eyes No eye erythema Eyes No eye floaters Eyes No eye pain 012 Eyes No vision change Cardiovascular No chest pain/pressure 09/20/2012 Cardiovascular No dyspnea 09/20/2012 Cardiovascular No edema 09/20/2012 Cardiovascular No palpitations 09/20/2012 Respiratory No chest congestion 09/20/2012 Respiratory No chest tightness 09/20/2012 Gastrointestinal No abdominal pain 09/20/2012 Dermatologic No rash Dermatologic No sores Psychiatric No anxiety 1 11/21/2011 Psychiatric No depression 09/20/2012 Musculoskeletal arthralgia(s) 09/20/2012 Musculoskeletal stiffness 09/20/2012 Musculoskeletal muscle weakness 09/20/2012 Musculoskeletal myalgias 09/20/2012 Constitutional No chills 06/08/2012 Constitutional No fever 06/08/2012 Cardiovascular No chest pain/pressure 06/08/2012 Cardiovascular No dyspnea 06/08/2012 Cardiovascular No edema 06/08/2012 Cardiovascular No palpitations 06/08/2012 Respiratory No chest congestion 06/08/2012 Respiratory No chest tightness 06/08/2012 Gastrointestinal No abdominal pain 06/08/2012 Dermatologic No rash 03/2012 Dermatologic No sores Psychiatric No anxiety 0 06/08/2012 Psychiatric No depression 06/08/2012 Eyes No eye floaters 03/2012 Eyes No eye erythema 03/2012 Eyes No eye pain 012 Eyes No vision change Constitutional No chills 04/10/2012 Constitutional No fever 04/10/2012 Cardiovascular No chest pain/pressure 04/10/2012 Cardiovascular No dyspnea 04/10/2012 Cardiovascular No edema 04/10/2012 Cardiovascular No palpitations 04/10/2012 Respiratory No chest congestion 04/10/2012 Respiratory No chest tightness 04/10/2012 Gastrointestinal No abdominal pain 04/10/2012 Dermatologic No rash 06/2012 Dermatologic No sores Psychiatric No anxiety 0 04/10/2012 Psychiatric No depression 04/10/2012 Constitutional No chills 03/16/2012 Constitutional No fever 03/16/2012 Respiratory No chest congestion 03/16/2012 Respiratory No chest tightness 03/16/2012 Gastrointestinal No abdominal pain 03/16/2012 Cardiovascular No chest pain/pressure 03/16/2012 Cardiovascular No dyspnea 03/16/2012 Cardiovascular No edema 03/16/2012 Cardiovascular No palpitations 03/16/2012 Psychiatric No anxiety 0 03/16/2012 Psychiatric No depression 03/16/2012 Dermatologic No rash Dermatologic No sores Constitutional night sweats 02/03/2012 Constitutional No chills 02/03/2012 Constitutional fatigue 0 02/03/2012 Constitutional No fever 02/03/2012 Constitutional insomnia 02/03/2012 Eyes vision change 02/02 Ears/Nose/Throat/Neck No facial weakness 02/03/2012 Ears/Nose/Throat/Neck No hoarseness 02/03/2012 Ears/Nose/Throat/Neck No nasal allergies 02/03/2012 Ears/Nose/Throat/Neck No nasal discharge 02/03/2012 Ears/Nose/Throat/Neck No nasal pain 02/03/2012 Ears/Nose/Throat/Neck No sore throat 02/03/2012 Respiratory No chest congestion 02/03/2012 Respiratory No chest tightness 02/03/2012 Respiratory cough 2011 Gastrointestinal No abdominal pain 02/03/2012 Gastrointestinal constipation 02/03/2012 Gastrointestinal gastroesophageal reflux 02/03/2012 Genitourinary/Nephrology No urinary urgenc y 02/03/2012 Genitourinary/Nephrology urinary frequency 02/03/2012 Musculoskeletal stiffness 02/03/2012 Musculoskeletal swelling 02/03/2012 Musculoskeletal arthralgia(s) 02/03/2012 Musculoskeletal back pain 02/03/2012 Musculoskeletal joint complaint 02/03/2012 Dermatologic sores 02/02 Neurologic memory loss 0 02/03/2012 Constitutional night sweats 11/04/2011 Constitutional No fever 11/04/2011 Constitutional No chills 11/04/2011 Constitutional fatigue 0 11/04/2011 Constitutional insomnia 11/04/2011 Eyes vision change 11/04 Ears/Nose/Throat/Neck No sore throat 11/04/2011 Ears/Nose/Throat/Neck No nasal pain 11/04/2011 Ears/Nose/Throat/Neck No facial weakness 11/04/2011 Ears/Nose/Throat/Neck No hoarseness 11/04/2011 Ears/Nose/Throat/Neck No nasal allergies 11/04/2011 Ears/Nose/Throat/Neck No nasal discharge 11/04/2011 Cardiovascular No chest pain/pressure 11/04/2011 Cardiovascular No palpitations 11/04/2011 Cardiovascular No dyspnea 11/04/2011 Cardiovascular No edema 11/04/2011 Respiratory cough 2011 Respiratory No chest congestion 11/04/2011 Respiratory No chest tightness 11/04/2011 Gastrointestinal No abdominal pain 11/04/2011 Gastrointestinal constipation 11/04/2011 Gastrointestinal gastroesophageal reflux 11/04/2011 Musculoskeletal stiffness 11/04/2011 Musculoskeletal swelling 11/04/2011 Musculoskeletal arthralgia(s) 11/04/2011 Musculoskeletal joint complaint 11/04/2011 Musculoskeletal back pain 11/04/2011 Genitourinary/Nephrology urinary frequency 11/04/2011 Genitourinary/Nephrology No urinary urgenc y 11/04/2011 Dermatologic sores 11/04 Neurologic memory loss 0 11/04/2011 Constitutional No anorexia 07/13/2011 Constitutional No chills 07/13/2011 Constitutional No fever 07/13/2011 Cardiovascular No chest pain/pressure 07/13/2011 Cardiovascular No dyspnea 07/13/2011 Cardiovascular edema 08/2011 Respiratory No chest congestion 07/13/2011 Respiratory No chest tightness 07/13/2011 Respiratory No cough 08/2011 Genitourinary/Nephrology No urinary urgenc y 07/13/2011 Genitourinary/Nephrology No urinary frequency 07/13/2011 Musculoskeletal arthralgia(s) 07/13/2011 Musculoskeletal stiffness 07/13/2011 Musculoskeletal muscle weakness 07/13/2011 Dermatologic No rash 08/2011 Dermatologic No sores Psychiatric No anxiety 1 Psychiatric No depression 07/13/2011 Eyes No vision change Physical Exam Exam Name System Name It em Name Status Result Effective Dates Notes Full Exam - Orthopedics Constitutional general appearance Overall: well nourished 03/20/2019 None Full Exam - Orthopedics Constitutional general appearance Overall: well developed 03/20/2019 None Full Exam - Orthopedics Constitutional general appearance Overall: in no acute distress 03/20/2019 None Full Exam - Orthopedics Psychiatric orientation/consciousness Overall: oriented to person, place and time 03/20/2019 None Full Exam - Orthopedics MS: right lo wer extremity insp & palp - RLE Knee: tenderness over medial joint line 03/20/2019 None Full Exam - Orthopedics MS: right lo wer extremity insp & palp - RLE Lower leg: normal on palpation 03/20/2019 None Full Exam - Orthopedics Cardiovascular examination of vasculature Overall: no clubbing, cyanosis, edema 03/20/2019 None Full Exam - Orthopedics Respiratory auscultation Overall: breath sounds clear bilaterally 03/20/2019 None Full Exam - Orthopedics Respiratory respiratory effort/rhythm Overall: no retractions 03/20/2019 None Full Exam - Orthopedics Respiratory respiratory effort/rhythm Overall: normal rate 03/20/2019 None Full Exam - Orthopedics Respiratory respiratory effort/rhythm Overall: normal, symmetric chest expansion 03/20/2019 None Full Exam - General 1994 Constitutional general appearance Overall: well developed 03/15/2019 None Full Exam - General 1994 Constitutional general appearance Overall: in no acute distress 03/15/2019 None Full Exam - General 1994 Constitutional general appearance Overall: well nourished 03/15/2019 None Full Exam - General 1994 Eyes pupils and irises Overall: pupils equal, round, reactive to light and accomodation 03/15/2019 None Full Exam - General 1994 Ears/Nose/Throat lips/teeth/gingiva Overall: benign lips 03/15/2019 None Full Exam - General 1994 Ears/Nose/Throat oral cavity/pharynx/larynx Overall: oral mucosa clear 03/15/2019 None Full Exam - General 1994 Respiratory auscultation Overall: breath sounds clear bilaterally 03/15/2019 None Full Exam - General 1994 Respiratory respiratory effort/rhythm Overall: no retractions 03/15/2019 None Full Exam - General 1994 Respiratory respiratory effort/rhythm Overall: normal rate 03/15/2019 None Full Exam - General 1994 Cardiovascular auscultation of heart Overall: regular rate 03/15/2019 None Full Exam - General 1994 Cardiovascular auscultation of heart Overall: normal heart sounds 03/15/2019 None Full Exam - General 1994 Abdomen abdominal exam Overall: no tenderness 03/15/2019 None Full Exam - General 1994 Abdomen abdominal exam Overall: normal bowel sounds 03/15/2019 None Full Exam - General 1994 Lymphatic neck nodes Overall: anterior cervical chain benign 03/15/2019 None Full Exam - General 1994 Lymphatic neck nodes Overall: posterior cervical chain benign 03/15/2019 None Full Exam - General 1994 Integument inspection of skin Overall: few scattered moles, no gross abnormalities 03/15/2019 None Full Exam - General 1994 Neurologic cranial nerves Overall: crainial nerves 2 - 12 grossly intact 03/15/2019 None Full Exam - General 1994 Psychiatric orientation/consciousness Overall: oriented to person, place and time 03/15/2019 None Full Exam - General 1994 Psychiatric mood and affect Overall: normal mood and affect 03/15/2019 None Full Exam - Cardiology Integument inspection/palpation Location: right leg 03/15/2019 superficial varicose vein right anterior lower leg Full Exam - General 1994 Constitutional general appearance Overall: well developed 01/08/2019 None Full Exam - General 1994 Constitutional general appearance Overall: in no acute distress 01/08/2019 None Full Exam - General 1994 Constitutional general appearance Overall: well nourished 01/08/2019 None Full Exam - Cardiology Ears/Nose/Throat oral mucosa Overall: oral mucosa clear 01/08/2019 None Full Exam - General 1994 Eyes pupils and irises Overall: pupils equal, round, reactive to light and accomodation 01/08/2019 None Full Exam - General 1994 Ears/Nose/Throat lips/teeth/gingiva Overall: benign lips 01/08/2019 None Full Exam - General 1994 Ears/Nose/Throat oral cavity/pharynx/larynx Overall: oral mucosa clear 01/08/2019 None Full Exam - General 1994 Respiratory auscultation Overall: breath sounds clear bilaterally 01/08/2019 None Full Exam - General 1994 Respiratory respiratory effort/rhythm Overall: no retractions 01/08/2019 None Full Exam - General 1994 Respiratory respiratory effort/rhythm Overall: normal rate 01/08/2019 None Full Exam - General 1994 Cardiovascular auscultation of heart Overall: regular rate 01/08/2019 None Full Exam - General 1994 Cardiovascular auscultation of heart Overall: normal heart sounds 01/08/2019 None Full Exam - General 1994 Abdomen abdominal exam Overall: no tenderness 01/08/2019 None Full Exam - General 1994 Abdomen abdominal exam Overall: normal bowel sounds 01/08/2019 None Full Exam - General 1994 Lymphatic neck nodes Overall: anterior cervical chain benign 01/08/2019 None Full Exam - General 1994 Lymphatic neck nodes Overall: posterior cervical chain benign 01/08/2019 None Full Exam - General 1994 Integument inspection of skin Overall: few scattered moles, no gross abnormalities 01/08/2019 None Full Exam - General 1994 Neurologic cranial nerves Overall: crainial nerves 2 - 12 grossly intact 01/08/2019 None Full Exam - General 1994 Psychiatric orientation/consciousness Overall: oriented to person, place and time 01/08/2019 None Full Exam - General 1994 Psychiatric mood and affect Overall: normal mood and affect 01/08/2019 None Full Exam - General 1994 Ears/Nose/Throat lips/teeth/gingiva Teeth: partially edentulous 01/08/2019 None Full Exam - General 1994 Constitutional general appearance Overall: well developed 01/01/2019 None Full Exam - General 1994 Constitutional general appearance Overall: in no acute distress 01/01/2019 None Full Exam - General 1994 Constitutional general appearance Overall: well nourished 01/01/2019 None Full Exam - General 1994 Eyes pupils and irises Overall: pupils equal, round, reactive to light and accomodation 01/01/2019 None Full Exam - General 1994 Ears/Nose/Throat lips/teeth/gingiva Overall: benign lips 01/01/2019 None Full Exam - General 1994 Ears/Nose/Throat oral cavity/pharynx/larynx Overall: oral mucosa clear 01/01/2019 None Full Exam - General 1994 Respiratory auscultation Overall: breath sounds clear bilaterally 01/01/2019 None Full Exam - General 1994 Respiratory respiratory effort/rhythm Overall: no retractions 01/01/2019 None Full Exam - General 1994 Respiratory respiratory effort/rhythm Overall: normal rate 01/01/2019 None Full Exam - General 1994 Cardiovascular auscultation of heart Overall: regular rate 01/01/2019 None Full Exam - General 1994 Cardiovascular auscultation of heart Overall: normal heart sounds 01/01/2019 None Full Exam - General 1994 Abdomen abdominal exam Overall: no tenderness 01/01/2019 None Full Exam - General 1994 Abdomen abdominal exam Overall: normal bowel sounds 01/01/2019 None Full Exam - General 1994 Lymphatic neck nodes Overall: anterior cervical chain benign 01/01/2019 None Full Exam - General 1994 Lymphatic neck nodes Overall: posterior cervical chain benign 01/01/2019 None Full Exam - General 1994 Integument inspection of skin Overall: few scattered moles, no gross abnormalities 01/01/2019 None Full Exam - General 1994 Neurologic cranial nerves Overall: crainial nerves 2 - 12 grossly intact 01/01/2019 None Full Exam - General 1994 Psychiatric orientation/consciousness Overall: oriented to person, place and time 01/01/2019 None Full Exam - General 1994 Psychiatric mood and affect Overall: normal mood and affect 01/01/2019 None Full Exam - Cardiology Ears/Nose/Throat oral mucosa Overall: oral mucosa clear 01/01/2019 None Full Exam - General 1994 Constitutional general appearance Overall: well developed 12/18/2018 None Full Exam - General 1994 Constitutional general appearance Overall: in no acute distress 12/18/2018 None Full Exam - General 1994 Constitutional general appearance Overall: well nourished 12/18/2018 None Full Exam - General 1994 Eyes pupils and irises Overall: pupils equal, round, reactive to light and accomodation 12/18/2018 None Full Exam - General 1994 Ears/Nose/Throat lips/teeth/gingiva Overall: benign lips 12/18/2018 None Full Exam - General 1994 Ears/Nose/Throat oral cavity/pharynx/larynx Overall: oral mucosa clear 12/18/2018 None Full Exam - General 1994 Respiratory auscultation Overall: breath sounds clear bilaterally 12/18/2018 None Full Exam - General 1994 Respiratory respiratory effort/rhythm Overall: no retractions 12/18/2018 None Full Exam - General 1994 Respiratory respiratory effort/rhythm Overall: normal rate 12/18/2018 None Full Exam - General 1994 Cardiovascular auscultation of heart Overall: regular rate 12/18/2018 None Full Exam - General 1994 Cardiovascular auscultation of heart Overall: normal heart sounds 12/18/2018 None Full Exam - General 1994 Abdomen abdominal exam Overall: no tenderness 12/18/2018 None Full Exam - General 1994 Abdomen abdominal exam Overall: normal bowel sounds 12/18/2018 None Full Exam - General 1994 Lymphatic neck nodes Overall: anterior cervical chain benign 12/18/2018 None Full Exam - General 1994 Lymphatic neck nodes Overall: posterior cervical chain benign 12/18/2018 None Full Exam - General 1994 Integument inspection of skin Overall: few scattered moles, no gross abnormalities 12/18/2018 None Full Exam - General 1994 Neurologic cranial nerves Overall: crainial nerves 2 - 12 grossly intact 12/18/2018 None Full Exam - General 1994 Psychiatric orientation/consciousness Overall: oriented to person, place and time 12/18/2018 None Full Exam - General 1994 Psychiatric mood and affect Overall: normal mood and affect 12/18/2018 None Full Exam - General 1994 Constitutional general appearance Overall: well developed 09/18/2018 None Full Exam - General 1994 Constitutional general appearance Overall: in no acute distress 09/18/2018 None Full Exam - General 1994 Constitutional general appearance Overall: well nourished 09/18/2018 None Full Exam - General 1994 Eyes pupils and irises Overall: pupils equal, round, reactive to light and accomodation 09/18/2018 None Full Exam - General 1994 Ears/Nose/Throat lips/teeth/gingiva Overall: benign lips 09/18/2018 None Full Exam - General 1994 Ears/Nose/Throat oral cavity/pharynx/larynx Overall: oral mucosa clear 09/18/2018 None Full Exam - General 1994 Respiratory auscultation Overall: breath sounds clear bilaterally 09/18/2018 None Full Exam - General 1994 Respiratory respiratory effort/rhythm Overall: no retractions 09/18/2018 None Full Exam - General 1994 Respiratory respiratory effort/rhythm Overall: normal rate 09/18/2018 None Full Exam - General 1994 Cardiovascular auscultation of heart Overall: regular rate 09/18/2018 None Full Exam - General 1994 Cardiovascular auscultation of heart Overall: normal heart sounds 09/18/2018 None Full Exam - General 1994 Abdomen abdominal exam Overall: no tenderness 09/18/2018 None Full Exam - General 1994 Abdomen abdominal exam Overall: normal bowel sounds 09/18/2018 None Full Exam - General 1994 Lymphatic neck nodes Overall: anterior cervical chain benign 09/18/2018 None Full Exam - General 1994 Lymphatic neck nodes Overall: posterior cervical chain benign 09/18/2018 None Full Exam - General 1994 Integument inspection of skin Overall: few scattered moles, no gross abnormalities 09/18/2018 None Full Exam - General 1994 Neurologic cranial nerves Overall: crainial nerves 2 - 12 grossly intact 09/18/2018 None Full Exam - General 1994 Psychiatric orientation/consciousness Overall: oriented to person, place and time 09/18/2018 None Full Exam - General 1994 Psychiatric mood and affect Overall: normal mood and affect 09/18/2018 None Full Exam - ENT Constitutional general appearance Overall: well nourished 08/31/2018 None Full Exam - ENT Constitutional general appearance Overall: well developed 08/31/2018 None Full Exam - ENT Constitutional general appearance Overall: in no acute distress 08/31/2018 None Full Exam - ENT Ears/Nose/Throat otoscopic exam Overall: external auditory canals normal 08/31/2018 None Full Exam - ENT Ears/Nose/Throat otoscopic exam Right tympanic membrane: air-fluid level 08/31/2018 None Full Exam - ENT Ears/Nose/Throat lips/teeth/gingiva Overall: benign lips 08/31/2018 None Full Exam - ENT Ears/Nose/Throat oropharynx Overall: oral mucosa clear 08/31/2018 None Full Exam - ENT Ears/Nose/Throat oropharynx Posterior Pharynx: clear post nasal drainage 08/31/2018 None Full Exam - ENT Respiratory inspection Overall: no retractions 08/31/2018 None Full Exam - ENT Respiratory inspection Overall: normal rate None Full Exam - ENT Respiratory auscultation Overall: breath sounds clear bilater ally 08/31/2018 None Full Exam - ENT Cardiovascular auscultation of heart Rate: normal rate 08/31/2018 None Full Exam - ENT Cardiovascular auscultation of heart Rhythm: regular rhythm 08/31/2018 None Full Exam - ENT Lymphatic palpation of lymph nodes Overall: anterior cervical chain benign 08/31/2018 None Full Exam - ENT Lymphatic palpation of lymph nodes Overall: posterior cervical chain benign 08/31/2018 None Full Exam - ENT Neurologic mood and affect Overall: normal mood 08/31/2018 None Full Exam - ENT Neurologic mood and affect Overall: normal affect 08/31/2018 None Full Exam - ENT Neurologic orientation Overall: oriented to person, place a nd time 08/31/2018 None Full Exam - ENT Face and Head palpation Overall: no sinus tenderness 08/31/2018 None Full Exam - ENT Face and Head palpation Overall: no induration, no tendernes s 08/31/2018 None Full Exam - ENT Ears/Nose/Throat otoscopic exam Left tympanic membrane: intact 08/31/2018 None Full Exam - ENT Ears/Nose/Throat otoscopic exam Overall: tympanic membranes normal 08/31/2018 None Full Exam - ENT Constitutional general appearance Overall: well nourished 08/14/2018 None Full Exam - ENT Constitutional general appearance Overall: well developed 08/14/2018 None Full Exam - ENT Constitutional general appearance Overall: in no acute distress 08/14/2018 None Full Exam - ENT Ears/Nose/Throat otoscopic exam Overall: external auditory canals normal 08/14/2018 None Full Exam - ENT Ears/Nose/Throat otoscopic exam Left tympanic membrane: air-fluid le funmi 08/14/2018 None Full Exam - ENT Ears/Nose/Throat otoscopic exam Right tympanic membrane: air-fluid level 08/14/2018 None Full Exam - ENT Ears/Nose/Throat lips/teeth/gingiva Overall: benign lips 08/14/2018 None Full Exam - ENT Ears/Nose/Throat oropharynx Overall: oral mucosa clear 08/14/2018 None Full Exam - ENT Ears/Nose/Throat oropharynx Posterior Pharynx: clear post nasal drainage 08/14/2018 None Full Exam - ENT Ears/Nose/Throat oropharynx Posterior Pharynx: erythema 08/14/2018 None Full Exam - ENT Respiratory inspection Overall: no retractions 08/14/2018 None Full Exam - ENT Respiratory inspection Overall: normal rate 09/2018 None Full Exam - ENT Respiratory auscultation Overall: breath sounds clear bilater ally 08/14/2018 None Full Exam - ENT Cardiovascular auscultation of heart Rate: normal rate 08/14/2018 None Full Exam - ENT Cardiovascular auscultation of heart Rhythm: regular rhythm 08/14/2018 None Full Exam - ENT Lymphatic palpation of lymph nodes Overall: anterior cervical chain benign 08/14/2018 None Full Exam - ENT Lymphatic palpation of lymph nodes Overall: posterior cervical chain benign 08/14/2018 None Full Exam - ENT Neurologic mood and affect Overall: normal mood 08/14/2018 None Full Exam - ENT Neurologic mood and affect Overall: normal affect 08/14/2018 None Full Exam - ENT Neurologic orientation Overall: oriented to person, place a nd time 08/14/2018 None Full Exam - ENT Ears/Nose/Throat otoscopic exam Left tympanic membrane: erythematous 08/14/2018 None Full Exam - ENT Face and Head palpation Left maxillary sinus: tender 08/14/2018 None Full Exam - ENT Face and Head palpation Right maxillary sinus: tender 08/14/2018 None Full Exam - Orthopedics Constitutional general appearance Overall: well nourished 05/22/2018 None Full Exam - Orthopedics Constitutional general appearance Overall: well developed 05/22/2018 None Full Exam - Orthopedics Constitutional general appearance Overall: in no acute distress 05/22/2018 None Full Exam - Orthopedics Eyes conjunctiva/eyelids Overall: conjunctiva clear 05/22/2018 None Full Exam - Orthopedics Eyes conjunctiva/eyelids Overall: eyelids normal 05/22/2018 None Full Exam - Orthopedics Ears/Nose/Throat lips/teeth/gingiva Overall: benign lips 05/22/2018 None Full Exam - Orthopedics Ears/Nose/Throat oral cavity/pharynx/larynx Overall: oral mucosa clear 05/22/2018 None Full Exam - Orthopedics Respiratory respiratory effort/rhythm Overall: no retractions 05/22/2018 None Full Exam - Orthopedics Respiratory respiratory effort/rhythm Overall: normal rate 05/22/2018 None Full Exam - Orthopedics Psychiatric orientation/consciousness Overall: oriented to person, place and time 05/22/2018 None Full Exam - Orthopedics Psychiatric mood and affect Overall: normal mood and affect 05/22/2018 None Full Exam - Orthopedics Psychiatric appearance Overall: well-groomed, good eye contact 05/22/2018 None Full Exam - Orthopedics MS: head/neck insp & palp - H/N Overall: head atraumatic 05/22/2018 None Full Exam - Orthopedics MS: right up per extremity insp & palp - RUE Shoulder: normal appearance 05/22/2018 None Full Exam - Orthopedics MS: right up per extremity insp & palp - RUE Shoulder: tenderness on the long head of the biceps tendon 05/22/2018 None Full Exam - Orthopedics MS: right up per extremity insp & palp - RUE Shoulder: acromioclavicular joint tenderness 05/22/2018 None Full Exam - Orthopedics MS: right up per extremity insp & palp - RUE Upper arm: normal appearance 05/22/2018 None Full Exam - Orthopedics MS: right up per extremity insp & palp - RUE Upper arm: tenderness 05/22/2018 None Full Exam - General 1995 Constitutional general appearance Overall: well developed 11/18/2017 None Full Exam - General 1994 Constitutional general appearance Overall: in no acute distress 11/18/2017 None Full Exam - General 1994 Constitutional general appearance Overall: well nourished 11/18/2017 None Full Exam - General 1994 Eyes pupils and irises Overall: pupils equal, round, reactive to light and accomodation 11/18/2017 None Full Exam - General 1994 Ears/Nose/Throat lips/teeth/gingiva Overall: benign lips 11/18/2017 None Full Exam - General 1994 Ears/Nose/Throat oral cavity/pharynx/larynx Overall: oral mucosa clear 11/18/2017 None Full Exam - General 1994 Respiratory auscultation Overall: breath sounds clear bilaterally 11/18/2017 None Full Exam - General 1994 Respiratory respiratory effort/rhythm Overall: no retractions 11/18/2017 None Full Exam - General 1994 Respiratory respiratory effort/rhythm Overall: normal rate 11/18/2017 None Full Exam - General 1994 Cardiovascular auscultation of heart Overall: regular rate 11/18/2017 None Full Exam - General 1994 Cardiovascular auscultation of heart Overall: normal heart sounds 11/18/2017 None Full Exam - General 1994 Abdomen abdominal exam Overall: no tenderness 11/18/2017 None Full Exam - General 1994 Abdomen abdominal exam Overall: normal bowel sounds 11/18/2017 None Full Exam - General 1994 Lymphatic neck nodes Overall: anterior cervical chain benign 11/18/2017 None Full Exam - General 1994 Lymphatic neck nodes Overall: posterior cervical chain benign 11/18/2017 None Full Exam - General 1994 Integument inspection of skin Overall: few scattered moles, no gross abnormalities 11/18/2017 None Full Exam - General 1994 Neurologic cranial nerves Overall: crainial nerves 2 - 12 grossly intact 11/18/2017 None Full Exam - General 1994 Psychiatric orientation/consciousness Overall: oriented to person, place and time 11/18/2017 None Full Exam - General 1994 Psychiatric mood and affect Overall: normal mood and affect 11/18/2017 None Full Exam - General 1994 Constitutional general appearance Overall: well developed 08/03/2017 None Full Exam - General 1994 Constitutional general appearance Overall: in no acute distress 08/03/2017 None Full Exam - General 1994 Constitutional general appearance Overall: well nourished 08/03/2017 None Full Exam - General 1994 Eyes conjunctiva/eyelids Overall: conjunctiva clear 08/03/2017 None Full Exam - General 1994 Eyes conjunctiva/eyelids Overall: eyelids normal 08/03/2017 None Full Exam [...] ENT Ears/Nose/Throat otoscopic exam Left tympanic membrane: air-fluid le funmi 11/05/2016 None Full Exam - ENT Ears/Nose/Throat otoscopic exam Right tympanic membrane: air-fluid level 11/05/2016 None Full Exam - ENT Ears/Nose/Throat lips/teeth/gingiva Overall: benign lips 11/05/2016 None Full Exam [...] ENT Respiratory auscultation Overall: breath sounds clear bilater ally 11/05/2016 None Full Exam - ENT Cardiovascular [...] Neurologic orientation Overall: oriented to person, place a nd time 11/05/2016 None Full Exam - General [...] Abdomen abdominal exam Upper quadrant: non-tender to palpat ion 07/22/2016 None Full Exam - General 1994 [...] Abdomen abdominal exam Upper quadrant: non-tender to palpat ion 09/08/2015 None Full Exam - General 1994 [...] None Full Exam - General 1994 Eyes conjunctiva/eyelids Overall: conjunctiva clear 07/09/2015 None Full Exam - General 1994 Eyes conjunctiva/eyelids Overall: cornea clear 07/09/2015 None Full Exam - General 1994 Eyes conjunctiva/eyelids Overall: eyelids normal 07/09/2015 None Full Exam [...] patch 07/09/2015 of dry skin over lower ab domen bilaterally Full Exam - General 1994 Constitutional [...] Abdomen abdominal exam Upper quadrant: non-tender to palpat ion 09/16/2014 None Full Exam - General 1994 [...] Abdomen abdominal exam Upper quadrant: non-tender to palpat ion 08/15/2014 None Full Exam - General 1994 [...] Abdomen abdominal exam Upper quadrant: non-tender to palpat ion 06/12/2014 None Full Exam - General 1994 [...] clear 03/20/2014 None Full Exam - General 1995 Ears/Nose/Throat oral cavity/pharynx/larynx Overall: oropharyngeal mucosa clear [...] Abdomen abdominal exam Upper quadrant: non-tender to palpat ion 03/20/2014 None Full Exam - General 1994 [...] Abdomen abdominal exam Upper quadrant: non-tender to palpat ion 12/10/2013 None Full Exam - General 1994 [...] atraumatic 12/10/2013 None Full Exam - General 1995 Neurologic gait Conventional walking: ataxic rhythm 12/10/2013 [...] Abdomen abdominal exam Upper quadrant: non-tender to palpat ion 09/17/2013 None Full Exam - General 1994 [...] Abdomen abdominal exam Upper quadrant: non-tender to palpat ion 05/21/2013 None Full Exam - General 1994 [...] Abdomen abdominal exam Upper quadrant: non-tender to palpat ion 01/17/2013 None Full Exam - General 1994 [...] Abdomen abdominal exam Upper quadrant: non-tender to palpat ion 09/20/2012 None Full Exam - General 1994 [...] Abdomen abdominal exam Upper quadrant: non-tender to palpat ion 06/08/2012 None Full Exam - General 1994 [...] nourished 04/10/2012 None Full Exam - General 1994 Constitutional general appearance Overall: well developed 04/10/2012 None Full Exam - General 1994 Constitutional general appearance Overall: in no acute distress 04/10/2012 None Full Exam - General 1994 Respiratory auscultation Overall: breath sounds clear bilaterally 04/10/2012 None Full Exam - General 1994 Respiratory respiratory effort/rhythm Overall: no retractions 04/10/2012 None Full Exam - General 1994 Respiratory respiratory effort/rhythm Overall: normal rate 04/10/2012 [...] Abdomen abdominal exam Upper quadrant: non-tender to palpat ion 04/10/2012 None Full Exam - General 1994 [...] General 1994 Ears/Nose/Throat external ear Overall: normal mastoids 02/03/2012 None Full Exam - General 1994 Ears/Nose/Throat external nose Overall: benign appearance 02/03/2012 None Full Exam - General 1994 Ears/Nose/Throat external nose Overall: no masses 02/03/2012 None Full Exam - General 1994 Ears/Nose/Throat external nose Overall: non-tender 02/03/2012 None Full Exam - General 1994 Ears/Nose/Throat otoscopic exam External auditory canal: minimal cerumen 02/03/2012 None Full Exam - General 1994 Ears/Nose/Throat otoscopic exam Tympanic membrane: a normal exam 02/03/2012 None Full Exam - General 1994 Ears/Nose/Throat lips/teeth/gingiva Overall: benign lips 02/03/2012 None Full Exam - General 1995 Ears/Nose/Throat lips/teeth/gingiva Overall: normal dentition 02/03/2012 None Full Exam - General 1994 Ears/Nose/Throat lips/teeth/gingiva Overall: benign gingiva 02/03/2012 None Full Exam - General 1994 Ears/Nose/Throat lips/teeth/gingiva Overall: no masses 02/03/2012 None Full Exam - General 1995 Neck [...] 1994 Cardiovascular inspection of pedal pulses Overall: strong, equal bilaterally 02/03/2012 None Full Exam - General 1994 Abdomen abdominal exam Overall: no tenderness 02/03/2012 None Full Exam - General 1994 Abdomen abdominal exam Overall: normal bowel sounds 02/03/2012 None Full Exam - General 1994 Musculoskeletal [...] distress 11/04/2011 None Full Exam - General 1995 Constitutional general appearance Nourishment: obese 11/04/2011 None Full Exam - General 1995 Constitutional general appearance Hygiene/Attention to Grooming: normal grooming 11/04/2011 None Full Exam - General 1995 Constitutional general appearance Assistive Device: walker 11/04/2011 and brace to left leg Full Exam - General 1994 Ears/Nose/Throat external ear Overall: no masses 11/04/2011 None Full Exam - General 1995 Ears/Nose/Throat external ear Overall: normal appearance 11/04/2011 None Full Exam - General 1995 Ears/Nose/Throat external ear Overall: normal mastoids 11/04/2011 None Full Exam - General 1995 Ears/Nose/Throat external nose Overall: benign appearance 11/04/2011 None Full Exam - General 1995 Ears/Nose/Throat external nose Overall: non-tender 11/04/2011 None [...] 11/04/2011 None Full Exam - General 1994 Neck inspection of neck Overall: normal appearance 11/04/2011 None Full Exam - General 1994 Neck inspection of neck Overall: normal tracheal position 11/04/2011 None Full Exam - General 1994 Neck inspection of neck Overall: absence of swelling 11/04/2011 None Full Exam - General 1994 Neck inspection of neck Overall: no masses 11/04/2011 None Full Exam - General 1994 Neck inspection of neck Overall: normal size 11/04/2011 None Full Exam - General 1994 Respiratory auscultation Overall: breath sounds clear bilaterally 11/04/2011 None Full Exam - General 1995 Respiratory respiratory effort/rhythm Overall: no retractions 11/04/2011 None Full Exam - General 1994 Respiratory respiratory effort/rhythm Overall: normal rate 11/04/2011 None Full Exam - General 1994 Cardiovascular auscultation of heart Overall: regular rate 11/04/2011 None Full Exam - General 1994 Cardiovascular auscultation of heart Overall: normal heart sounds 11/04/2011 None Full Exam - General 1994 Cardiovascular inspection of pedal pulses Overall: strong, equal bilaterally 11/04/2011 None Full Exam - [...] Abdomen abdominal exam Upper quadrant: non-tender to palpat ion 07/13/2011 None Full Exam - General 1994 Abdomen abdominal exam Lower quadrant: non-tender to palpat ion 07/13/2011 None Full Exam - General 1994 [...] clear 07/13/2011 None Procedures Procedure Codes Date TRIAMCINOLONE ACET I [place] NOS CPT-4: J3301 01/01/2019 TRIAMCINOLONE ACET I NJ NOS CPT-4: J3301 08/31/2018 ADMIN INFLUENZA VIRU S VAC CPT-4: G0008 07/06/2018 FLU VACC PRSV FREE I NC ANTIG Formatting Model/CDA Sections, Assigned to/Kimberley Fagan CPT-4: 92040Auththq 07/06/2018 ADMIN INFLUENZA VIRU S VAC CPT-4: G0008 07/05/2017 FLU VACC PRSV FREE I NC ANTIG CPT-4: 47586 07/05/2017 THER/PROPH/DIAG INJ SC/IM CPT-4: 50558 11/05/2016 TRIAMCINOLONE ACET I NJ NOS CPT-4: J3301 11/05/2016 TRIAMCINOLONE ACET I NJ NOS CPT-4: J3301 09/16/2014 DRAIN/INJECT JOINT/B URSA CPT-4: 57231 09/16/2014 KETOROLAC TROMETHAMI NE INJ CPT-4: J1885 03/20/2014 URINALYSIS NONAUTO W /O SCOPE CPT-4: 41550 12/10/2013 PRESCRIP TRANSMIT A ERX SY CPT-4: G8553 09/17/2013 PRESCRIP TRANSMIT A ERX SY CPT-4: G8553 06/08/2012 TRIAMCINOLONE ACET I NJ NOS CPT-4: J3301 03/16/2012 INJ TRIGGER POINT 1/ 2 MUSCL CPT-4: 16048 03/16/2012 PRESCRIP TRANSMIT A ERX SY CPT-4: G8553 03/16/2012 ADMIN INFLUENZA VIRU S VAC CPT-4: G0008 07/13/2011 FLULAVAL VACC, 3 YRS & >, IM CPT-4: Q2036 07/13/2011 ADMIN PNEUMOCOCCAL V ACCINE SNOMED CT: [id number] CPT-4: G0009 07/13/2011 Pneumococcal Polysac charide Vaccine, 23-Valent, Ad CPT-4: 89799 07/13/2011 Vital Signs Date Vital 03/20/2019 Blood Pressure 1: 134/84 Code: 8480-6 BMI: 36.7 Code: 21887-7 Heart Rate 1: 63 bpm Height: 5'3" SpO2: 97% Weight: 207 lbs 03/15/2019 Blood Pressure 1: 138/76 Code: 8480-6 BMI: 36.7 Code: 88412-6 Heart Rate 1: 64 bpm Height: 5'3" SpO2: 98% Weight: 207 lbs 01/08/2019 Blood Pressure 1: 128/70 Code: 8480-6 Heart Rate 1: 67 bpm SpO2: 97% 01/01/2019 Blood Pressure 1: 138/80 Code: 8480-6 BMI: 36.3 Code: 79101-9 Heart Rate 1: 64 bpm Height: 5'3" SpO2: 98% Weight: 205 lbs 12/18/2018 Blood Pressure 1: 120/62 Code: 8480-6 BMI: 36.0 Code: 84562-9 Heart Rate 1: 67 bpm Height: 5'3" SpO2: 97% Weight: 203 lbs 09/18/2018 Blood Pressure 1: 126/70 Code: 8480-6 BMI: 36.3 Code: 96367-0 Heart Rate 1: 58 bpm Height: 5'3" SpO2: 98% Weight: 205 lbs 08/31/2018 Blood Pressure 1: 148/76 Code: 8480-6 BMI: 37.0 Code: 38025-0 Heart Rate 1: 60 bpm Height: 5'3" SpO2: 98% Weight: 209 lbs 08/14/2018 Blood Pressure 1: 140/80 Code: 8480-6 BMI: 37.2 Code: 32413-9 Heart Rate 1: 76 bpm Height: 5'3" SpO2: 96% Weight: 210 lbs 05/22/2018 Blood Pressure 1: 150/62 Code: 8480-6 BMI: 36.7 Code: 42206-1 Heart Rate 1: 74 bpm Height: 5'3" SpO2: 98% Weight: 207 lbs 11/18/2017 Blood Pressure 1: 122/66 Code: 8480-6 BMI: 35.8 Code: 93795-7 Heart Rate 1: 59 bpm Height: 5'3" SpO2: 97% Weight: 202 lbs 08/03/2017 Blood Pressure 1: 122/60 Code: 8480-6 BMI: 36.0 Code: 22950-3 Heart Rate 1: 60 bpm Height: 5'3" SpO2: 97% Weight: 203 lbs 07/05/2017 Blood Pressure 1: 140/76 Code: 8480-6 BMI: 36.0 Code: 22208-6 Heart Rate 1: 58 bpm Height: 5'3" SpO2: 98% Weight: 203 lbs 12/02/2016 Blood Pressure 1: 122/70 Code: 8480-6 BMI: 34.4 Code: 75524-7 Heart Rate 1: 66 bpm Height: 5'3" SpO2: 99% Temperature: 36.4 (C ) / 97.5 (F) Weight: 194 lbs 11/22/2016 Blood Pressure 1: 102/60 Code: 8480-6 BMI: 34.2 Code: 71639-3 Heart Rate 1: 110 bpm Height: 5'3" SpO2: 98% Temperature: 36.7 (C ) / 98.0 (F) Weight: 193 lbs 11/05/2016 Blood Pressure 1: 140/62 Code: 8480-6 BMI: 36.1 Code: 49599-5 Heart Rate 1: 102 bpm Height: 5'3" SpO2: 97% Temperature: 37.1 (C ) / 98.7 (F) Weight: 204 lbs 07/22/2016 Blood Pressure 1: 158/80 Code: 8480-6 Blood Pressure 1: 160/76 Code: 8480-6 BMI: 36.8 Code: 96938-1 Heart Rate 1: 56 bpm Height: 5'3" SpO2: 98% Weight: 208 lbs 05/19/2016 Blood Pressure 1: 150/78 Code: 8480-6 Blood Pressure 1: 122/69 Code: 8480-6 BMI: 37.0 Code: 24305-2 Heart Rate 1: 61 bpm Height: 5'3" SpO2: 98% Weight: 209 lbs 02/13/2016 Blood Pressure 1: 140/76 Code: 8480-6 BMI: 36.8 Code: 77155-2 Heart Rate 1: 64 bpm Height: 5'3" SpO2: 97% Weight: 208 lbs 01/13/2016 Blood Pressure 1: 170/70 Code: 8480-6 BMI: 36.8 Code: 91912-6 Heart Rate 1: 65 bpm Height: 5'3" SpO2: 95% Weight: 208 lbs 01/02/2016 Blood Pressure 1: 150/88 Code: 8480-6 BMI: 36.8 Code: 11739-7 Heart Rate 1: 61 bpm Height: 5'3" SpO2: 98% Weight: 208 lbs 12/18/2015 Blood Pressure 1: 148/90 Code: 8480-6 BMI: 37.6 Code: 41246-8 Heart Rate 1: 64 bpm Height: 5'3" SpO2: 96% Weight: 212 lbs 09/08/2015 Blood Pressure 1: 130/88 Code: 8480-6 BMI: 37.0 Code: 87311-3 Heart Rate 1: 62 bpm Height: 5'3" SpO2: 97% Weight: 209 lbs 07/09/2015 Blood Pressure 1: 142/82 Code: 8480-6 BMI: 36.4 Code: 47613-8 Heart Rate 1: 66 bpm Height: 5'3" SpO2: 97% Weight: 205 lbs 5 oz 01/16/2015 Blood Pressure 1: 122/80 Code: 8480-6 BMI: 35.6 Code: 43117-3 Heart Rate 1: 67 bpm Height: 5'3" SpO2: 98% Weight: 201 lbs 01/03/2015 Blood Pressure 1: 122/70 Code: 8480-6 BMI: 35.6 Code: 24671-7 Heart Rate 1: 61 bpm Height: 5'3" Respiratory Rate: 16 bpm SpO2: 98% Weight: 201 lbs 09/16/2014 Blood Pressure 1: 132/78 Code: 8480-6 BMI: 34.9 Code: 79274-3 Heart Rate 1: 56 bpm Height: 5'3" Weight: 197 lbs 08/15/2014 Blood Pressure 1: 152/80 Code: 8480-6 Blood Pressure 2: 160/82 Code: 8480-6 BMI: 34.0 Code: 39965-1 Heart Rate 1: 75 bpm Height: 5'3" Weight: 192 lbs 06/12/2014 Blood Pressure 1: 136/82 Code: 8480-6 BMI: 34.9 Code: 23344-6 Heart Rate 1: 58 bpm Height: 5'3" SpO2: 96% Weight: 197 lbs 03/20/2014 Blood Pressure 1: 140/72 Code: 8480-6 BMI: 34.9 Code: 77731-9 Heart Rate 1: 60 bpm Height: 5'3" Weight: 197 lbs 12/10/2013 Blood Pressure 1: 132/78 Code: 8480-6 BMI: 35.1 Code: 25886-9 Heart Rate 1: 68 bpm Height: 5'3" Weight: 198 lbs 09/17/2013 Blood Pressure 1: 128/78 Code: 8480-6 BMI: 34.9 Code: 42993-7 Heart Rate 1: 68 bpm Height: 5'3" Weight: 197 lbs 05/21/2013 Blood Pressure 1: 128/82 Code: 8480-6 BMI: 35.6 Code: 80687-2 Heart Rate 1: 80 bpm Height: 5'3" Weight: 201 lbs 01/17/2013 Blood Pressure 1: 138/72 Code: 8480-6 BMI: 36.7 Code: 55763-2 Heart Rate 1: 60 bpm Height: 5'3" Weight: 207 lbs 5 oz 09/20/2012 Blood Pressure 1: 128/78 Code: 8480-6 Heart Rate 1: 60 bpm 06/08/2012 Blood Pressure 1: 142/84 Code: 8480-6 Heart Rate 1: 68 bpm Weight: 222 lbs 04/10/2012 Blood Pressure 1: 152/74 Code: 8480-6 Heart Rate 1: 72 bpm Respiratory Rate: 16 bpm Weight: 219 lbs 8 oz 03/16/2012 Blood Pressure 1: 132/78 Code: 8480-6 Heart Rate 1: 64 bpm Respiratory Rate: 16 bpm Weight: 224 lbs 02/03/2012 Blood Pressure 1: 140/78 Code: 8480-6 BMI: 40.0 Code: 19552-5 Heart Rate 1: 64 bpm Height: 5'3" Respiratory Rate: 16 bpm Weight: 226 lbs 11/04/2011 Blood Pressure 1: 136/76 Code: 8480-6 Heart Rate 1: 68 bpm Respiratory Rate: 16 bpm Weight: 226 lbs 07/13/2011 Blood Pressure 1: 142/80 Code: 8480-6 BMI: 40.0 Code: 62854-0 Heart Rate 1: 60 bpm Height: 5'4" Respiratory Rate: 16 bpm Weight: 233 lbs Functional Status No Functional Status data History of Present Illness Symptom Name Status Resu lt Effective Date Notes Location on the right 03/20/[address] 03/20/2019 None Quality popping 03/20/2019 None Quality constant 03/20/2019 None Onset of Symptom _ wee ks ago 03/20/2019 None Frequency of Episodes decreasing 03/20/2019 None Severity mild 03/20/2019 None Significant Medical Conditions degenerative joint disease 03/20/2019 None Significant Medical Conditions prior injury 03/20/2019 None Significant Medications NSAID's 03/20/2019 None Mechanism of injury di rect trauma 03/20/2019 None Sports Participation n ot significant 03/20/2019 None Location on the right leg 03/15/2019 None Quality acute 03/15/2019 None Triggers no known asso ciated factors 03/15/2019 None Pertinent Findings mus daniela tenderness 03/15/2019 None Onset and Resolution o ngoing 03/15/2019 None Onset of Symptom _ wee ks ago 03/15/2019 None Limitation on Activities does not limit activities 03/15/2019 None Frequency of Episodes unchanged 03/15/2019 None Location right ear 01/08/2019 None Quality acute 01/08/2019 None Onset and Resolution o ngoing 01/08/2019 None Onset of Symptom _ wee ks ago 01/08/2019 None Severity mild 01/08/2019 None Frequency of Episodes daily 01/08/2019 None Triggers no known trig gers 01/08/2019 None Location right ear 01/01/2019 None Quality acute 01/01/2019 None Onset and Resolution g radual in onset 01/01/2019 None Onset of Symptom 1 wee ks ago 01/01/2019 None Severity mild 01/01/2019 None Frequency of Episodes increasing 01/01/2019 None Triggers no known trig gers 01/01/2019 None Location diffusely 12/18/2018 None Quality intermittent 12/18/2018 None Onset and Resolution g radual in onset 12/18/2018 None Onset of Symptom 3 mon ths ago 12/18/2018 None Frequency of Episodes daily 12/18/2018 None Location on both sides 09/18/2018 -worse on the right side - bad enough t o bring her to tears Quality acute 09/18/2018 None Onset and Resolution s udden in onset 09/18/2018 None Onset of Symptom 1 wee ks ago 09/18/2018 None Limitation on Activities moderately limits activities 09/18/2018 None Limitation on Activities is incapacitating 09/18/2018 None Alleviating Factors me dications 09/18/2018 None Alleviating Factors ch anging position 09/18/2018 None Exacerbating Factors c hanging position 09/18/2018 None Exacerbating Factors a ctivity 09/18/2018 None nasal discharge Location in both nares 08/31/2018 None nasal discharge Onset and Resolution ongoing 08/31/2018 None nasal discharge Quality acute 08/31/2018 None nasal discharge Onset of Symptom 6 weeks ago 08/31/2018 None nasal discharge Frequency of Episodes daily 08/31/2018 None nasal discharge Pertinent Findings cough 08/31/2018 -improving nasal discharge Pertinent Findings hearing change 08/31/2018 None nasal discharge Quality improving 08/31/2018 None sinus congestion Onset and Resolution gradual in onset 08/14/2018 None sinus congestion Onset of Symptom 2 weeks ago 08/14/2018 None sinus congestion Frequency of Episodes daily 08/14/2018 None sinus congestion Pertinent Findings cough 08/14/2018 None sinus congestion Pertinent Findings Denies dysphagia 08/14/2018 None sinus congestion Pertinent Findings Denies fever 08/14/2018 None sinus congestion Triggers no known associated factors 08/14/2018 None sinus congestion Location on both sides 08/14/2018 None sinus congestion Quality acute 08/14/2018 None neck and arm pain Radiating down the right arm 05/22/2018 None neck and arm pain Quality sharp pain 05/22/2018 None neck and arm pain Quality constant 05/22/2018 None hypertension Quality naomi mehta hypertension 11/18/2017 None hypertension Onset and Resolution ongoing 11/18/2017 None hypertension Onset of Symptom during adulthood 11/18/2017 None hypertension Blood Pressure Values patient checking blood pressure at home - did not bring in readings 11/18/2017 None hypertension Alleviating Factors medication 11/18/2017 None hypertension Pertinent Findings decreased energy 11/18/2017 None hypertension Pertinent Findings dizziness 11/18/2017 and imbalance hypertension Pertinent Findings Denies dyspnea 11/18/2017 None hypertension Pertinent Findings edema 11/18/2017 -wears christine hose bilateral ly abdominal pain Location in the LUQ 11/18/2017 None abdominal pain Quality c hronic 11/18/2017 None abdominal pain Quality i ntermittent 11/18/2017 None abdominal pain Quality a cute 11/18/2017 None abdominal pain Onset and Resolution ongoing 11/18/2017 None abdominal pain Onset of Symptom 1 weeks ago 11/18/2017 None abdominal pain Onset of Symptom during adulthood 11/18/2017 None abdominal pain Limitation on Activities does not limit activities 11/18/2017 None abdominal pain Triggers no known associated factors 11/18/2017 None diarrhea Quality loose 08/03/2017 None diarrhea Onset [...] Pertinent Findings edema 07/05/2017 -wears christine hose bilateral ly hypertension Quality naomi mehta hypertension 07/05/2017 None hypertension Pertinent Findings decreased energy 07/05/2017 None gait abnormality Quality unsteady 07/05/2017 None gait abnormality Onset and Resolution ongoing 07/05/2017 None gait abnormality Quality worsening 07/05/2017 None gait abnormality Assistive devices cane 07/05/2017 None hypertension Quality int ermittent 12/02/2016 None hypertension Onset and Resolution ongoing 12/02/2016 None hypertension Onset of Symptom during adulthood 12/02/2016 None hypertension Alleviating Factors medication 12/02/2016 None hypertension Pertinent Findings dizziness 12/02/2016 None hypertension Pertinent Findings dyspnea 12/02/2016 None hypertension Pertinent Findings edema 12/02/2016 -wears christine hose occasiona lly hypertension Blood Pressure Values pt checking blood pressure - see scanned document 12/02/2016 None hypertension Blood Pressure Values Stage 1:SBP 140-159 mmHg / DBP 90-99 mmHg 12/02/2016 None hypertension Blood Pressure Values Stage 2:SBP 160-179 mmHg / DBP 100-109 mmHg 12/02/2016 None hypertension Severity mi ld 12/02/2016 None hypertension Quality int ermittent 11/22/2016 None hypertension Onset and Resolution ongoing 11/22/2016 None hypertension Onset of Symptom during adulthood 11/22/2016 None hypertension Alleviating Factors medication 11/22/2016 None hypertension Pertinent Findings dizziness 11/22/2016 None hypertension Pertinent Findings dyspnea 11/22/2016 None hypertension Pertinent Findings Denies edema 11/22/2016 -wears christine hose occasiona lly cough Quality intermitte nt 11/22/2016 None cough Onset and Resolution ongoing [...] Findings cough 11/22/2016 None cough Quality acute 11/22/2016 None cough Pertinent Findings Denies sputum production [...] Findings sinus congestion 11/05/2016 None hypertension Quality int ermittent 07/22/2016 None hypertension Onset and Resolution ongoing [...] epigastric area 07/22/2016 None abdominal pain Quality i ntermittent 07/22/2016 None abdominal pain Onset and Resolution ongoing 07/22/2016 None abdominal pain Exacerbating Factors eating 07/22/2016 None abdominal pain Alleviating Factors medication 07/22/2016 None dysphagia Location in th e throat 07/22/2016 None dysphagia Quality diffic ulty with solids 07/22/2016 None dysphagia Quality interm ittent 07/22/2016 None hypertension Onset and Resolution ongoing 05/19/2016 None hypertension Onset of Symptom during adulthood 05/19/2016 None hypertension Quality int ermittent 05/19/2016 None hypertension Blood Pressure Values pt checking blood pressure - see scanned document 05/19/2016 None hypertension Pertinent Findings dizziness 05/19/2016 "all the time" hypertension Pertinent Findings Denies dyspnea 05/19/2016 None hypertension Pertinent Findings edema 05/19/2016 "some"- mostly in her beck ds blood pressure followup Quality intermittent 02/13/2016 None blood pressure followup Onset and Re solution ongoing 02/13/2016 None blood pressure followup Blood Pressu re Values pt checking blood pressure at home, did not bring in to clinic 02/13/2016 None blood pressure followup Severity mild 02/13/2016 None blood pressure followup Frequency of Episodes increasing 02/13/2016 No ne blood pressure followup Significant Family History cerebrovascular accident 02/13/2016 None blood pressure followup Significant Medical Conditions cardiac disease 02/13/2016 None blood pressure followup Triggers no known associated factors 02/13/2016 None blood pressure followup Exacerbating Factors medication 02/13/2016 No ne blood pressure followup Pertinent Findings Denies anxiety 02/13/2016 None blood pressure followup Pertinent Findings Denies dizziness 02/13/2016 None blood pressure followup Pertinent Findings Denies dyspnea 02/13/2016 None blood pressure followup Pertinent Findings Denies edema 02/13/2016 None blood pressure followup Quality intermittent 01/13/2016 None blood pressure followup Onset and Re solution ongoing 01/13/2016 None blood pressure followup Blood Pressu re Values pt checking blood pressure at home, [...] pressure followup Frequency of Episodes increasing 01/13/2016 No ne blood pressure followup Significant Family History cerebrovascular accident 01/13/2016 None blood pressure followup Significant Medical Conditions cardiac disease 01/13/2016 None blood pressure followup Triggers no known associated factors 01/13/2016 None blood pressure followup Exacerbating Factors medication 01/13/2016 No ne hypertension Quality chr onic 01/02/2016 None hypertension Onset and Resolution ongoing 01/02/2016 None hypertension Onset of Symptom during adulthood 01/02/2016 None hypertension Blood Pressure Values pt checking blood pressure - see scanned document 01/02/2016 None hypertension Severity no t consistently severe symptoms, the symptoms fluctuate from no symptoms to anxiety and headaches 01/02/2016 None hypertension Frequency of Episodes unchanged 01/02/2016 None hypertension Triggers no known associated factors 01/02/2016 None hypertension Pertinent Findings Denies anxiety 01/02/2016 None hypertension Pertinent Findings Denies confusion 01/02/2016 None hypertension Pertinent Findings Denies dyspnea 01/02/2016 None hypertension Pertinent Findings Denies edema 01/02/2016 None hypertension Quality chr onic 12/18/2015 None hypertension Onset and Resolution ongoing 12/18/2015 None hypertension Onset of Symptom during adulthood 12/18/2015 None hypertension Blood Pressure Values pt checking blood pressure - see scanned document 12/18/2015 None hypertension Severity no t consistently severe symptoms, the symptoms fluctuate from no symptoms to anxiety and headaches 12/18/2015 None hypertension Frequency of Episodes unchanged 12/18/2015 None hypertension Triggers no known associated factors 12/18/2015 None hypertension Pertinent Findings Denies anxiety 12/18/2015 None hypertension Pertinent Findings Denies confusion 12/18/2015 None hypertension Pertinent Findings Denies dyspnea 12/18/2015 None hypertension Pertinent Findings Denies edema 12/18/2015 None vertigo Quality intermit tent 09/08/2015 None vertigo Onset and Resolution ongoing [...] dyspnea 09/08/2015 None arm pain Location left f orearm 09/08/2015 None arm pain Location right forearm 09/08/2015 None arm pain Quality intermi ttent 09/08/2015 None arm pain Quality electri city 09/08/2015 None arm pain Quality sharp p ain 09/08/2015 None arm pain Onset of Symptom 5 days ago 09/08/2015 None arm pain Pertinent Findings female 09/08/2015 None arm pain Pertinent Findings gait disturbance 09/08/2015 uses a cane arm pain Pertinent Findings Denies pain with movement 09/08/2015 None arm pain Pertinent Findings Denies right hand dominant 09/08/2015 None palpitations Quality braden reness of heartbeat 07/09/2015 no episodes since last ti me she was here palpitations Quality ski pped beats 07/09/2015 None palpitations Onset and Resolution sudden in onset 07/09/2015 None palpitations Onset of Symptom 1 days ago 07/09/2015 None palpitations Frequency of Episodes daily 07/09/2015 None palpitations Pertinent Findings tachycardia 07/09/2015 one episode yesterday. Pu lse this am 84 hypertension Blood Pressure Values not checking blood pressure at home 07/09/2015 None hypertension Pertinent Findings Denies dizziness 07/09/2015 None hypertension Pertinent Findings Denies dyspnea 07/09/2015 None memory loss Onset of Symptom _ years ago 07/09/2015 None memory loss Onset and Resolution ongoing 07/09/2015 pt states her ask ed her to cut his hair and she forgot.. also states she forgets things within an hour memory loss Quality wors ening 07/09/2015 None memory loss Triggers no known associated factors 07/09/2015 None palpitations Quality braden reness of heartbeat 01/16/2015 no episodes since last ti me she was here palpitations Quality ski pped beats 01/16/2015 None palpitations Onset and Resolution sudden in onset 01/16/2015 None palpitations Onset of Symptom 1 days ago 01/16/2015 None palpitations Frequency of Episodes daily 01/16/2015 None palpitations Pertinent Findings tachycardia 01/16/2015 one episode yesterday. Pu lse this am 84 shoulder pain Location o n the left shoulder 01/16/2015 None shoulder pain Onset and Resolution sudden in onset 01/16/2015 None shoulder pain Onset of Symptom 4 days ago 01/16/2015 has felt pain in shoulder before a while ago. shoulder pain Pertinent Findings Denies loss of range of motion 01/16/2015 None shoulder pain Quality in termittent 01/16/2015 sharp pain that catches h er breath, reports a little better palpitations Quality ski pped beats 01/03/2015 None palpitations Quality braden reness of heartbeat 01/03/2015 None palpitations Onset and Resolution sudden in onset 01/03/2015 None palpitations Onset of Symptom 1 days ago 01/03/2015 None palpitations Frequency of Episodes daily 01/03/2015 None palpitations Pertinent Findings tachycardia 01/03/2015 one episode yesterday. Pu lse this am 84 shoulder pain Location o n the left shoulder 01/03/2015 None shoulder pain Quality co nstant 01/03/2015 None shoulder pain Onset and Resolution sudden in onset 01/03/2015 None shoulder pain Onset of Symptom 4 days ago 01/03/2015 has felt pain in shoulder before a while ago. shoulder pain Pertinent Findings Denies loss of range of motion 01/03/2015 None back pain Location in th e right lower back area 09/16/2014 None back pain Onset of Symptom 1 weeks ago 09/16/2014 None back pain Quality acute 09/16/2014 None back pain Quality consta nt 09/16/2014 None back pain Onset and Resolution ongoing 09/16/2014 None back pain Triggers activ ity 09/16/2014 None nausea Onset of Symptom 1 weeks ago 08/15/2014 None nausea Onset and Resolution gradual in onset 08/15/2014 None nausea Severity mild 08/15/2014 None nausea Triggers no known associated factors 08/15/2014 None nausea Alleviating Factors no alleviatng factors 08/15/2014 None rash Location-Major on t he neck 06/12/2014 None rash Location-Major on t he chest 06/12/2014 None rash Location-Major on t he arms 06/12/2014 None rash Location-Major on t he head 06/12/2014 None rash Color pink 06/12/2014 None rash Onset of Symptom 4 days ago 06/12/2014 None rash Severity moderate 06/12/2014 None rash Triggers certain fo ods 06/12/2014 None rash Pertinent Findings Denies fever 06/12/2014 None rash Pertinent Findings dizziness 06/12/2014 chronic problem rash Pertinent Findings history of similar rash 06/12/2014 None rash Pertinent Findings itching 06/12/2014 None rash Pertinent Findings Denies pain 06/12/2014 None rash Alleviating Factors treatment medication 06/12/2014 None back pain Location in th e left middle back area 03/20/2014 None back pain Quality interm ittent 03/20/2014 None back pain Quality sharp 03/20/2014 [...] back 03/20/2014 to stomach back pain Severity moder ate 03/20/2014 None back pain Onset and Resolution ongoing 03/20/2014 None back pain Limitation on Activities moderately limits activities 03/20/2014 None abdominal pain Location in the suprapubic area 12/10/2013 None abdominal pain Quality c ramping 12/10/2013 None abdominal pain Quality d ull 12/10/2013 None abdominal pain Pertinent Findings Denies bloating 12/10/2013 None abdominal pain Pertinent Findings Denies abdominal distension 12/10/2013 states possible constipation abdominal pain Pertinent Findings Denies nausea 12/10/2013 None abdominal pain Onset of Symptom 1 days ago 12/10/2013 None back pain Location in th e midline of in the upper back area [...] Findings Denies fever 12/10/2013 None hypertension Quality chr onic 09/17/2013 None hypertension Onset and Resolution ongoing 09/17/2013 None hypertension Quality sta ble 09/17/2013 None hypertension Blood Pressure Values not [...] Findings Denies dyspnea 09/17/2013 None hypertension Severity mi ld 09/17/2013 None back pain Location in th e right middle back area 05/21/2013 None back pain Location in th e left middle back area 05/21/2013 None back pain Quality squeez ing 05/21/2013 None back pain Quality interm ittent 05/21/2013 None back pain Onset and Resolution sudden in onset 05/21/2013 None back pain Onset of Symptom 1 weeks ago 05/21/2013 None back pain Alleviating Factors medication 05/21/2013 ibuprofen back pain Pertinent Findings Denies muscle strain 05/21/2013 None back pain Pertinent Findings Denies fever 05/21/2013 None back pain Pertinent Findings Denies weakness 05/21/2013 None hypertension Quality chr onic 05/21/2013 None hypertension Onset and Resolution ongoing [...] Findings Denies tachycardia 05/21/2013 None hypertension Quality chr onic 01/17/2013 None hypertension Onset and Resolution ongoing 01/17/2013 None hypertension Onset of Symptom during adulthood 01/17/2013 None hypertension Severity mi ld 01/17/2013 None hypertension Pertinent Findings Denies decreased [...] ongoing 09/20/2012 states has had 2 spells s donna here last pain Quality uncomfortab le 09/20/2012 states has generalized alfredo int pain pain Onset and Resolution gradual in onset 09/20/2012 None pain Onset and Resolution ongoing 09/20/2012 None nosebleed Frequency of Episodes increasing 09/20/2012 states 3-4x in past month hypertension Quality sta ble 09/20/2012 None vertigo Quality acute 09/20/2012 None vertigo Onset and Resolution gradual in onset 09/20/2012 None vertigo Frequency of Episodes increasing 09/20/2012 states use to have a vert igo once and year and has had 3 [...] poor appetite 09/20/2012 None nosebleed Triggers dry w eather 09/20/2012 None nosebleed Triggers nose blowing 09/20/2012 None nosebleed Triggers seaso nal changes 09/20/2012 None nosebleed Timing of Episodes at night 09/20/2012 None nosebleed Quality interm ittent 09/20/2012 None nosebleed Significant Medical Conditions allergic [...] Alleviating Factors medication 09/20/2012 None hypertension Severity mi ld 09/20/2012 None hypertension Blood Pressure Values patient checking blood pressure at home - did not bring in readings 09/20/2012 None hyperlipidemia Onset and Resolution ongoing 06/08/2012 None hypertension Quality sta ble 06/08/2012 None vertigo Quality acute 06/08/2012 None vertigo Frequency of Episodes increasing 06/08/2012 states use to have a vert igo once and year and has had 3 [...] increasing 04/10/2012 states use to have a vert igo once and year and has had 3 episodes so far this year abdominal pain Location in the RLQ 04/10/2012 None abdominal pain Quality a cute 04/10/2012 None abdominal pain Quality i ntermittent 04/10/2012 None abdominal pain Pertinent Findings Denies hematemesis 04/10/2012 None abdominal pain Pertinent Findings Denies emesis 04/10/2012 None abdominal pain Pertinent Findings Denies nausea 04/10/2012 states approx one week before vertigo episdose had headaches and also after the attack abdominal pain Onset of Symptom 1 weeks ago 04/10/2012 None shoulder pain Onset of Symptom 4 days ago 03/16/2012 None shoulder pain Quality ac nikolski 03/16/2012 None shoulder pain Quality sh kate 03/16/2012 None shoulder pain Quality wo rsening 03/16/2012 None shoulder pain Pertinent Findings Denies swelling 03/16/2012 None shoulder pain Pertinent Findings Denies limited range of motion 03/16/2012 None shoulder pain Location d iffusely 03/16/2012 None shoulder pain Location o n the left shoulder 03/16/2012 starts in her scapula and then transmits to her shoulder and her clavicle. She states that she has to change positions and the pain will resolve. shoulder pain Onset and Resolution gradual in onset 03/16/2012 The pain started on Tuesday. shoulder pain Quality st abbing 03/16/2012 The pain starts out like a [...] shoulder pain Mechanism of injury unknown 03/16/2012 Narinder notes that she had a dhesive capsulitis and Dr. Velez manipulated the shoulder to break the adhesions. 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 shoulder pain Triggers n o known associated factors 03/16/2012 None shoulder pain Alleviating Factors NSAID ingestion 03/16/2012 only helped a little shoulder pain Alleviating Factors medication 03/16/2012 oxycodone helped a little medication follow up Additional Comments medication: was started on lipitor 02/03/2012 None hypertension Quality chr onic 02/03/2012 None hypertension Onset and Resolution ongoing 02/03/2012 None lower leg pain Onset of Symptom 3 months ago 02/03/2012 associates it with when s he started lipitor hyperlipidemia Onset and Resolution ongoing 02/03/2012 None hyperlipidemia Onset of Symptom during adulthood 02/03/2012 None hyperlipidemia Severity moderate 02/03/2012 None hyperlipidemia Exacerbating Factors diet 02/03/2012 None hyperlipidemia Pertinent Findings obesity 02/03/2012 None hyperlipidemia Quality c hronic 02/03/2012 None hyperlipidemia Quality i ncreased cholesterol 02/03/2012 None hyperlipidemia Quality i ncreased LDL 02/03/2012 None hyperlipidemia Quality i ncreased TG 02/03/2012 None hyperlipidemia Quality w orsening 02/03/2012 None hyperlipidemia Onset and Resolution ongoing 11/04/2011 None hyperlipidemia Onset of Symptom during adulthood 11/04/2011 None hyperlipidemia Severity moderate 11/04/2011 None hyperlipidemia Quality c hronic 11/04/2011 None hyperlipidemia Quality i ncreased cholesterol 11/04/2011 None hyperlipidemia Quality i ncreased LDL 11/04/2011 None hyperlipidemia Quality i ncreased TG 11/04/2011 None hyperlipidemia Quality w orsening 11/04/2011 None hyperlipidemia Pertinent Findings obesity 11/04/2011 None hyperlipidemia Exacerbating Factors diet 11/04/2011 None abdominal pain Quality c ramping 07/13/2011 within 30 min of eating abdominal pain Quality a cute 07/13/2011 within 30 minutes of eati ng mental status change Onset and Resolution waxing [...] No Advance Directive data Encounters Encounter Performer Loca tion Codes Date [id number] EST. PATIENT, LEVEL II Diagnosis: Pain in right knee[ICD10: M25.561] Diagnosis: Unspecified fracture of shaft of right fibula, initial encounter for closed fracture[ICD10: S82.401A] [facility] CPT-4: 16021 03/20/2019 98875 EST. PATIENT, LEVEL III Diagnosis: Asymptomatic varicose veins of right lower extremity[ICD10: I83.91] Юлия Manuel MD, [facility] CPT-4: 31607 03/15/2019 ([id number]) 53405 EST. P ATIENT, LEVEL II Diagnosis: Otalgia, right ear[ICD10: H92.01] Diagnosis: Other specified disorders of teeth and supporting structures[ICD10: K08.89] Юлия Manuel MD, [facility] CPT-4: 61245 01/08/2019 ([id number]) 95801 EST. P ATIENT, LEVEL III Diagnosis: Otalgia, right ear[ICD10: H92.01] Юлия Manuel MD, [facility] CPT- 4: 44307 01/01/2019 ([id number]) 52723 EST. 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 P ATIENT, LEVEL III Diagnosis: Nasal congestion[ICD10: R09.81] Diagnosis: Other allergic rhinitis[ICD10: J30.89] Юлия Manuel MD, [facility] CPT-4: 07551 08/31/2018 ([id number]) 88017 EST. P ATIENT, LEVEL III Diagnosis: Acute recurrent maxillary sinusitis[ICD10: J01.01] Юлия Manuel MD, [facility] CPT-4: 16975 08/14/2018 24499 EST. PATIENT, LEVEL III Diagnosis: Pain in right shoulder[ICD10: M25.511] Diagnosis: Pain in right arm[ICD10: M79.601] Willow Manuel MD, [facility] CPT-4: 03099 05/22/2018 ([id number]) 33964 EST. 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 PATIENT, LEVEL III Diagnosis: Other specified intestinal infections[ICD10: A08.8] Willow Manuel MD, [facility] CPT-4: 25950 08/03/2017 ([id number]) 54165 EST. 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 P ATIENT, LEVEL III Diagnosis: Essential (primary) hypertension[ICD10: I10] Юлия Manuel MD, [facility] CPT-4: 97121 12/02/2016 ([id number]) 02031 EST. P ATIENT, LEVEL III Diagnosis: Essential (primary) hypertension[ICD10: I10] Diagnosis: Allergic rhinitis due to pollen[ICD10: J30.1] Giuliana Manuel MD, [facility] CPT-4: 71455 11/22/2016 57162 EST. PATIENT, LEVEL III Diagnosis: Acute laryngopharyngitis[ICD10: J06.0] Diagnosis: Influenza due to unidentified influenza virus with other respiratory manifestations[ICD10: J11.1] Willow Manuel MD, [facility] CPT-4: 14050 11/05/2016 ([id number]) 81860 EST. P ATIENT, LEVEL III Diagnosis: Gastro-esophageal reflux disease without esophagitis[ICD10: K21.9] Diagnosis: Essential (primary) hypertension[ICD10: I10] Giuliana Manuel MD, [facility] CPT-4: 82865 07/22/2016 ([id number]) 87079 EST. P ATIENT, LEVEL IV Diagnosis: Essential (primary) hypertension[ICD10: I10] Diagnosis: Abdominal distension (gaseous)[ICD10: R14.0] Giuliana Manuel MD, [facility] CPT-4: 07078 05/19/2016 ([id number]) 50515 EST. P ATIENT, LEVEL III Diagnosis: Essential (primary) hypertension[ICD10: I10] Юлия Manuel MD, [facility] CPT-4: 24833 02/13/2016 ([id number]) 70802 EST. P ATIENT, LEVEL III Diagnosis: Essential (primary) hypertension[ICD10: I10] Юлия Manuel MD, [facility] CPT-4: 82834 01/13/2016 22645 EST. PATIENT, LEVEL IV Diagnosis: Essential (primary) hypertension[ICD10: I10] Diagnosis: Body mass index (BMI) 36.0-36.9, adult[ICD10: Z68.36] Willow Manuel MD, [facility] CPT-4: 44391 01/02/2016 ([id number]) 21401 EST. P ATIENT, LEVEL III Diagnosis: Essential (primary) hypertension[ICD10: I10] Юлия Manuel MD, [facility] CPT-4: 62402 12/18/2015 ([id number]) 24583 EST. P ATIENT, LEVEL IV Diagnosis: Essential (primary) hypertension[ICD10: I10] Diagnosis: Benign paroxysmal vertigo, bilateral[ICD10: H81.13] Diagnosis: Radiculopathy, cervical region[ICD10: M54.12] Giuliana Manuel MD, [facility] CPT-4: 10652 09/08/2015 ([id number]) 03403 EST. P ATIENT, LEVEL IV Diagnosis: Other specified nonscarring hair loss[ICD10: L65.8] Diagnosis: Myositis, unspecified[ICD10: M60.9] Diagnosis: Psoriasis, unspecified[ICD10: L40.9] Diagnosis: Essential (primary) hypertension[ICD10: I10] Giuliana Manuel MD, [facility] CPT-4: 38480 07/09/2015 ([id number]) 09061 EST. P ATIENT, LEVEL III Diagnosis: ESSENTIAL HYPERTENSION[ICD9: 401.9] Giuliana Manuel MD, [facility] CPT- 4: 15830 01/16/2015 ([id number]) 53106 EST. P ATIENT, LEVEL III Diagnosis: Shoulder pain[ICD9: 719.41] Diagnosis: ESSENTIAL HYPERTENSION[ICD9: 401.9] Diagnosis: PALPITATIONS[ICD9: 785.1] Giuliana Manuel MD, [facility] CPT-4: 34034 01/03/2015 ([id number]) 08555 EST. P ATIENT, LEVEL III Diagnosis: Sacroiliitis[ICD9: 720.2] Diagnosis: Back pain[ICD9: 724.5] Diagnosis: ESSENTIAL HYPERTENSION[ICD9: 401.9] Giuliana Manuel MD, [facility] CPT- 4: 11133 09/16/2014 ([id number]) 13420 EST. P ATIENT, LEVEL IV Diagnosis: ESSENTIAL HYPERTENSION[ICD9: 401.9] Diagnosis: Arrhythmia[ICD9: 427.9] Diagnosis: Nausea[ICD9: 787.02] Giuliana Manuel MD, [facility] CPT-4: 13432 08/15/2014 ([id number]) 11314 EST. P ATIENT, LEVEL IV Diagnosis: ESSENTIAL HYPERTENSION[ICD9: 401.9] Diagnosis: Back pain[ICD9: 724.5] Diagnosis: Allergic reaction[ICD9: 995.3] Giuliana Manuel MD, [facility] CPT-4: 01410 06/12/2014 ([id number]) 23099 EST. P ATIENT, LEVEL III Diagnosis: Thoracic back pain[ICD9: 724.1] Diagnosis: MYALGIA AND MYOSITIS[ICD9: 729.1] Giuliana Manuel MD, [facility] CPT-4: 08364 03/20/2014 ([id number]) 40605 EST. P ATIENT, LEVEL IV Diagnosis: HYPERLIPIDEMIA[ICD9: 272.4] Diagnosis: ESSENTIAL HYPERTENSION[SNOMED: 36830591] Diagnosis: ABDOM PAIN NOS SITE[ICD9: 789.00] Giuliana Manuel MD, [facility] CPT-4: 28744 12/10/2013 ([id number]) 76927 EST. P ATIENT, LEVEL IV Diagnosis: ESSENTIAL HYPERTENSION[SNOMED: 75803753] Diagnosis: HYPERLIPIDEMIA[ICD9: 272.4] Giuliana Manuel MD, [facility] CPT-4: 91082 09/17/2013 ([id number]) 72428 EST. P ATIENT, LEVEL IV Diagnosis: ESSENTIAL HYPERTENSION[SNOMED: 63135851] Diagnosis: OBESITY[ICD9: 278.00] Diagnosis: Back pain[ICD9: 724.5] Giuliana Manuel MD, [facility] CPT-4: 16382 05/21/2013 ([id number]) 07758 EST. P ATIENT, LEVEL IV Diagnosis: ESSENTIAL HYPERTENSION[SNOMED: 91221158] Diagnosis: HYPERLIPIDEMIA[ICD9: 272.4] Diagnosis: Abdominal pain[ICD9: 789.00] Diagnosis: BENIGN PAROXYSMAL VERTIGO[ICD9: 386.11] Giuliana Manuel MD, [facility] CPT-4: 81982 01/17/2013 ([id number]) 44980 EST. P ATIENT, LEVEL IV Diagnosis: ESSENTIAL HYPERTENSION[SNOMED: 82207864] Diagnosis: BENIGN PAROXYSMAL VERTIGO[ICD9: 386.11] Diagnosis: Hair loss[ICD9: 704.00] Diagnosis: Vitamin d deficiency[ICD9: 268.9] Diagnosis: Bleeding from the nose[ICD9: 784.7] Giuliana Manuel MD, [facility] CPT- 4: 24432 09/20/2012 [id number] EST. PATIENT, LEVEL IV Diagnosis: BPPV (benign paroxysmal positional vertigo)[ICD9: 386.11] Diagnosis: HYPERLIPIDEMIA[ICD9: 272.4] Diagnosis: ESSENTIAL HYPERTENSION[SNOMED: 67769177] Giulinaa Manuel MD, [facility] CPT-4: 64908 06/08/2012 ([id number]) 43141 EST. P ATIENT, LEVEL IV Diagnosis: BPPV (benign paroxysmal positional vertigo)[ICD9: 386.11] Diagnosis: Diverticulitis[ICD9: 562.11] Diagnosis: Abdominal pain[ICD9: 789.00] Giuliana Manuel MD, [facility] CPT-4: 94808 04/10/2012 ([id number]) 51432 EST. P ATIENT, LEVEL III Diagnosis: Neck pain[ICD9: 723.1] Diagnosis: Acute upper back pain[ICD9: 724.1] Giuliana Manuel MD, [facility] CPT- 4: 14843 03/16/2012 ([id number]) 04002 EST. P ATIENT, LEVEL IV Diagnosis: HYPERLIPIDEMIA[ICD9: 272.4] Diagnosis: ESSENTIAL HYPERTENSION[SNOMED: 58138688] Diagnosis: Constipation - functional[ICD9: 564.09] Giuliana Manuel MD, [facility] CPT-4: 89239 02/03/2012 ([id number]) 12002 EST. P ATIENT, LEVEL IV Diagnosis: HYPERLIPIDEMIA[ICD9: 272.4] Diagnosis: VITAMIN DEFICIENCY[ICD9: 269.2] Diagnosis: ESSENTIAL HYPERTENSION[SNOMED: 51025423] Giuliana Manuel MD, [facility] CPT-4: 06736 11/04/2011 81185 EST. 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] Diagnosis: Seasonal allergies[ICD9: 477.9] Giuliana Manuel MD, [facility] CPT-4: 99090 07/13/2011 Plan of Care Planned Activity Notes C odes Status Date Appointment: Giuliana Manuel WPtel: [address] [place], [place] [id number] (15 min) Moderate 04/23/2019 Visit Plan: Right knee pain -contin ue rest, ice and anti inflammatories- call if pain does not improve or if any worse Fracture of right fibular shaft-xray shows healing -no change in current treatment -continue rest, anti inflammatories 03/20/2019 Patient Education: Patient Medication Summary Completed 03/20/2019 Visit Plan: Varicose vein -right lo wer leg -mildly tender - not inflamed -instructed patient to monitor and call if symptoms worsen, persist or new symptoms develop. Patient verbalized understanding of plan. 03/15/2019 Appointment: Юлия Rojas WPtel: [facility]5 [phone] (15 min) Moderate 03/15/2019 Patient Education: Patient Medication Summary Completed 03/15/2019 Visit Plan: Right earache -suspect trigeminal neuralgia- recommend patient have a dental eval to also check tooth that is bothering her on the right upper jaw -discussed treating trigeminal neuralgia if tooth is okay but instructed her to call if symptoms worsen -patient verbalized understanding of plan. 01/08/2019 Appointment: Юлия Rojas WPtel: [facility]5 [phone] (30 min) Complex 01/08/2019 Patient Education: Patient Medication Summary Completed 01/08/2019 Visit Plan: Right ear pain -concern for trigeminal neuralgia -she does have some sinus tenderness -will give kenalog injection today - continue anti histamine daily -monitor symptoms and call if persistent, worsen o r new symptoms develop. Patient verbalized understanding of plan. 01/01/2019 Appointment: Юлия Rojas WPtel: [facility]5 [phone] (30 min) Complex 01/01/2019 Patient Education: Patient Medication Summary Completed 01/01/2019 Visit Plan: Hypertension - well con trolled - continue with current medications, continue with no added salt diet. Pt has been encouraged to exercise daily. The pt has been advised to call the office if there are any acute concerns about change in blood pressure readings at home. 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 hold the omega 3 fish oil tabs x 2 weeks take ibuprofen 400mg twice daily x 2 weeks - then stop and restart the fish oil Esophageal Reflux - the patient has been counseled against excessive intake of caffeine, spicy foods, peppermint, and cinnamon - all of which can exacerbate esophageal reflux. The patient is to take medications as prescribed and call the office if the symptoms are not improving. 12/18/2018 Appointment: Giuliana Manuel WPtel: [phone] [facility] [place] (15 min) Moderate 12/18/2018 Patient Education: Patient Medication Summary Completed 12/18/2018 Visit Plan: Hypertension - well zoe de santiago - continue with current medications, continue with no added salt diet. Pt has been encouraged to exercise daily. The pt has been advised to call the office if there are any acute concerns about change in blood pressure readings at home. Sacroilitis - Lumbago with sciatic symptoms - rx for naproxen and voltaren gel, if not improving in the next 5-7 days - pt to call the office, she may need injection into low back. 09/18/2018 Appointment: Giuliana Manuel WPtel: [phone] [facility] (15 min) Moderate 09/18/2018 Patient Education: Patient Medication Summary Completed 09/18/2018 Visit Plan: Allergies - chronic - r ecommended pt to use allergy medication as prescribed. Pt has been counseled as to the appropriate use of the medication. Pt to call if allergy symptoms are not controlled with th e medication. If using nasal spray, instructions as follows: Nasal spray- use twice daily, one spray per nostril twice daily, after 30 minutes, rinse out nose with saline spray.. Use opposite hand per nostril to spray in the nasal steroid allergy spray. 08/31/2018 Visit Plan: Allergies - chronic - r ecommended pt to use allergy medication as prescribed. Pt has been counseled as to the appropriate use of the medication. Pt to call if allergy symptoms are not controlled with th e medication. If using nasal spray, instructions as follows: Nasal spray- use twice daily, one spray per nostril twice daily, after 30 minutes, rinse out nose with saline spray.. Use opposite hand per nostril to spray in the nasal steroid allergy spray. 08/31/2018 Appointment: Юлия Rojas WPtel: [phone] [phone] [place] (15 min) Moderate 08/31/2018 Patient Education: Patient Medication Summary Completed 08/31/2018 Visit Plan: Sinusitis - Pt has acut e infection - pain in face, maxillary region, Pt informed to use decongestant, RX given to patient, sinus rinses also recommended. Call if symptoms do not show improvement. 08/14/2018 Appointment: (15 min) Moderate 08/14/2018 Patient Education: Patient Medication Summary Completed 08/14/2018 Appointment: Injection 07/06/2018 Patient Education: Patient Medication Summary Completed 07/06/2018 Visit Plan: Right arm/shoulder pain - the patient was instructed in appropriate posture. The pt is to use prn antiinflammatories to manage acute pain. The patient is to call the office if the pain is worsening or does not improve. 05/22/2018 Appointment: Willow Garcia WPtel: [facility]9 [facility] (15 min) Moderate 05/22/2018 Patient Education: Patient Medication Summary Completed 05/22/2018 Visit Plan: Hypertension - well con trolled - continue with current medications, continue with no added salt diet. Pt has been encouraged to exercise daily. The pt has been advised to call the office if there are any acute concerns about change in blood pressure readings at home. 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 Esophageal Reflux - the patient has been counseled against excessive intake of caffeine, spicy foods, peppermint, and cinnamon - all of which can exacerbate esophageal reflux. The patient is to take medications as prescribed and call the office if the symptoms are not improving. 11/18/2017 Appointment: Giuliana Manuel WPtel: [facility]0 [facility] (15 min) Moderate 11/18/2017 Patient Education: Patient Medication Summary Completed 11/18/2017 Appointment: Giuliana Manuel WPtel: [phone] [facility] (15 min) Moderate 11/07/2017 Visit Plan: Diarrhea - recommended bland diet, low fat diet, start on probiotic, and rehydrate with gatorade-like product. Pt to call if feeling worse, diarrhea becomes bloody, or does not improve with above recomm endations. Pt to call for acute worsening of stomach upset or stomach pain. Gastroenteritis - discussed need to stay away from milk products while acutely ill with diarrhea and nausea and emesis as it may worsen the symptoms. Liquids initially until the nausea improves, then recommend to advance to bland diet for 1 day, then advance as tolerated. Call if symptoms not improved. 08/03/2017 Appointment: Willow Garcia WPtel: [facility]5 [facility] (30 min) Complex 08/03/2017 Patient Education: Patient Medication Summary Completed 08/03/2017 Patient Education: Obesity Completed 08/03/2017 Visit Plan: Hypertension - well con trolled - continue with current medications, continue with no added salt diet. Pt has been encouraged to exercise daily. The pt has been advised to call the office if there are any acute concerns about change in blood pressure readings at home. Post-polio syndrome - generalized weakness - I have recommended patient to have Referral to Dr. Kothari to do EMG. Vitamin D deficiency - continue with vitamin D daily. 07/05/2017 Appointment: Giuliana Manuel WPtel: [facility]5 [facility] (15 min) Moderate 07/05/2017 Patient Education: Patient Medication Summary Completed 07/05/2017 Patient Education: Obesity Completed 07/05/2017 Appointment: Giuliana Manuel WPtel: [facility]5 [facility] (15 min) Moderate 06/27/2017 Appointment: Giuliana Manuel WPtel: [facility]5 [facility] (15 min) Moderate 06/21/2017 Appointment: Юлия Rojas WPtel: [facility]5 [phone] [place] (30 min) Complex 12/23/2016 Visit Plan: Hypertension - - the pa amado's medications have been modified as documented in the visit note. The patient has been counseled to cut back on salt in diet for a no added salt diet, low fat diet, start an exercise program with low weight bearing exercises and higher aerobic activity for heart health. The patient is to check blood pressure readings as an outpatient and either fax, call, or email the readings to the office next week for practitioner to review. The pt is to call for acute concerns. STOP CLONIDINE DUE TO NIGHTMARES-INCREASE DOXAZOSIN TO TWICE DAILY-CHECK POTASSIUM LEVEL-OKAY TO RESTART HCTZ 12/02/2016 Appointment: Юлия Rojas WPtel: [phone] [phone] (30 min) Complex 12/02/2016 Patient Education: Patient Medication Summary Completed 12/02/2016 Patient Education: Obesity Completed 12/02/2016 Visit Plan: Hypertension - well con trolled - continue with current medications, continue with no added salt diet. Pt has been encouraged to exercise daily. The pt has been advised to call the office if there are any acute concerns about change in blood pressure readings at home.hold clonidine x 3 days then restart if blood pressure is above 130/70. URI - Pt advised to increase fluids, vitamin C. Discussed natural and expected course of this diagnosis and need to alert me if symptoms do not follow expected course, or if any worse. RX sent to patient's pharmacy. start on Robitussin over the counter and start on mucinex 600mg twice daily x 7 days 11/22/2016 Appointment: Giuliana Manuel WPtel: [facility]0 [facility] (15 min) Moderate 11/22/2016 Patient Education: Patient Medication Summary Completed 11/22/2016 Patient Education: Obesity Completed 11/22/2016 Visit Plan: Influenza - pt started on tamiflu - pt to start on anti-inflammatories, tylenol and monitor symptoms. Pt to call if not improving. Pt to alert any close contacts as to illness. 11/05/2016 [facility] ([facility] min[facility] 11/05/2016 Patient Education: Patient Medication Summary Completed 11/05/2016 Referral: Duarte Catalan Patient info rmed. Referral info faxed. Completed 07/26/2016 Visit Plan: Hypertension - uncontro lled - the patient's medications have been modified as documented in the visit note. The patient has been counseled to cut back on salt in diet for a no added salt diet, low fat d iet, start an exercise program with low weight bearing exercises and higher aerobic activity for heart health. The patient is to check blood pressure readings as an outpatient and either fax, call, or email the readings to the office next week for practitioner to review. The pt is to call for acute concerns. Esophageal Reflux - the patient has been counseled against excessive intake of caffeine, spicy foods, peppermint, and cinnamon - all of which can exacerbate esophageal reflux. The patient is to take medications as prescribed and call the office if the symptoms are not improving. Pt to start on carafate 07/22/2016 Appointment: Giuliana Manuel WPtel: [facility]5 [facility] (15 min) Moderate 07/22/2016 Patient Education: Patient Medication Summary Completed 07/22/2016 Patient Education: Obesity Completed 07/22/2016 Care Plan: Referral Order SNOMED-CT : [id number] Pending 07/22/2016 Visit Plan: Hypertension - well con trolled - continue with current medications, continue with no added salt diet. Pt has been encouraged to exercise daily. The pt has been advised to call the office if there are any acute concerns about change in blood pressure readings at home. Abdominal bloating - recommended gas-ex otc. - cut back on carbonated beverages. 05/19/2016 Patient Education: Patient Medication Summary Completed 05/19/2016 Patient Education: Obesity Completed 05/19/2016 Appointment: Giuliana Manuel WPtel: [facility]5 [facility] (15 min) Moderate 05/17/2016 Visit Plan: Hypertension - well con trolled - continue with current medications, continue with no added salt diet. Pt has been encouraged to exercise daily. The pt has been advised to call the office if there are any acute concerns about change in blood pressure readings at home. 02/13/2016 Appointment: Юлия Rojas WPtel: [facility]5 [phone] [place] (30 min) Complex 02/13/2016 Patient Education: Patient Medication Summary Completed 02/13/2016 Patient Education: Obesity Completed 02/13/2016 Patient Education: Hypertension Completed 02/13/2016 Appointment: (15 min) Moderate 01/16/2016 Visit Plan: Hypertension - uncontro lled - the patient's medications have been modified as documented in the visit note. The patient has been counseled to cut back on salt in diet for a no added salt diet, low fat d iet, start an exercise program with low weight bearing exercises and higher aerobic activity for heart health. The patient is to check blood pressure readings as an outpatient and either fax, call, or email the readings to the office next week for practitioner to review. The pt is to call for acute concerns. 01/13/2016 Appointment: (30 min) Complex 01/13/2016 Patient Education: Patient Medication Summary Completed 01/13/2016 Patient Education: Obesity Completed 01/13/2016 Patient Education: Hypertension Completed 01/13/2016 Visit Plan: Hypertension - uncontro lled - the patient's medications have been modified as documented in the visit note. The patient has been counseled to cut back on salt in diet for a no added salt diet, low fat d iet, start an exercise program with low weight bearing exercises and higher aerobic activity for heart health. The patient is to check blood pressure readings as an outpatient and either fax, call, or email the readings to the office next week for practitioner to review. The pt is to call for acute concerns. BMI 36 - The pt has been counseled about diet changes, calorie restriction, and need to exercise. Pt will RTC in 2 weeks for weight check. 01/02/2016 Appointment: (15 min) Moderate 01/02/2016 Patient Education: Patient Medication Summary Completed 01/02/2016 Patient Education: Obesity Completed 01/02/2016 Care Plan: BMI Above normal followup [facility]AN[facility]MT EDUC & TRAIN 1 PT Ordered 01/02/2016 Visit Plan: Hypertension - uncontro lled - the patient's medications have been modified as documented in the visit note. The patient has been counseled to cut back on salt in diet for a no added salt diet, low fat d iet, start an exercise program with low weight bearing exercises and higher aerobic activity for heart health. The patient is to check blood pressure readings as an outpatient and either fax, call, or email the readings to the office next week for practitioner to review. The pt is to call for acute concerns. 12/18/2015 Patient Education: Patient Medication Summary Completed 12/18/2015 Patient Education: Obesity Completed 12/18/2015 Appointment: Giuliana Manuel WPtel: [facility]9 [facility] (15 min) Moderate 12/08/2015 Referral: Jared Lafleur [address] [facility] Referral Completed 10/17/2015 Visit Plan: Hypertension - well con trolled - continue with current medications, continue with no added salt diet. Pt has been encouraged to exercise daily. The pt has been advised to call the office if there are any acute concerns about change in blood pressure readings at home. BPPV - Benign Paroxysmal Positional Vertigo - discussed diagnosis with the patient, offered the pt the appropriate additional information in hand-out. Pt instructed in home exercises to help alleviate and prevent future recurrent episodes of vertigo. Pt informed that if symptoms worsen, call the office for further instructions/medication interventions. Recommended pt to be seen by cardiology - need to consider a stress test. 09/08/2015 Appointment: Giuliana Manuel WPtel: [address] [place], [place] [id number] (15 min) Moderate 09/08/2015 Patient Education: Patient Medication Summary Completed 09/08/2015 Patient Education: .Cervicalgia Neck Pain Completed 09/08/2015 Care Plan: Referral Order SNOMED-CT : [id number] Ordered 09/08/2015 Visit Plan: Hypertension - uncontro lled - the patient's medications have been modified as documented in the visit note. The patient has been counseled to cut back on salt in diet for a no added salt diet, low fat d iet, start an exercise program with low weight bearing exercises and higher aerobic activity for heart health. The patient is to check blood pressure readings as an outpatient and either fax, call, or email the readings to the office next week for practitioner to review. The pt is to call for acute concerns. 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 Psoriasis - continue with steroid cream as prescribed today. Hair loss - and weight gain - recommended pt to have labs checked today. 07/09/2015 Appointment: Giuliana Manuel WPtel: [facility]7 [facility] (15 min) Moderate 07/09/2015 Patient Education: Patient Medication Summary Completed 07/09/2015 Appointment: Tonia Manuely WPtel: [address] [place] [address] [place] (15 min) Moderate 07/07/2015 Appointment: Tonia Manuely WPtel: [address] [place] [address] Follow up 03/17/2015 Visit Plan: Hypertension - well con trolled - continue with current medications, continue with no added salt diet. Pt has been encouraged to exercise daily. The pt has been advised to call the office if there are any acute concerns about change in blood pressure readings at home. Palpitations resolved. 01/16/2015 Appointment: Mar Giuliana WPtel: [address] [place] [address] Other 01/16/2015 Patient Education: Patient Medication Summary Completed 01/16/2015 Patient Education: Hypertension Completed 01/16/2015 Visit Plan: Hypertension - well con trolled - continue with current medications, continue with no added salt diet. Pt has been encouraged to exercise daily. The pt has been advised to call the office if there are any acute concerns about change in blood pressure readings at home. Palpitations - stable today - recommended pt to have an extra atenolol with her to take when she has symptoms of palpitations. Shoulder pain - - occasionally uncontrolled symptoms- recommend pt to take antiinflammatory as directed for pain control. Use tylenol for break through pain symptoms. 01/03/2015 Appointment: Giuliana Manuel WPtel: [address] [place] [address] Follow up 01/03/2015 Patient Education: Patient Medication Summary Completed 01/03/2015 Patient Education: Hypertension Completed 01/03/2015 Visit Plan: Hypertension - well con trolled - continue with current medications, continue with no added salt diet. Pt has been encouraged to exercise daily. The pt has been advised to call the office if there are any acute concerns about change in blood pressure readings at home. Sacroiliitis - back exercises discussed with the patient, pt to continue with anti- inflammatories. Pt is to call if the symptoms do not improve or if they worsen. 09/16/2014 Patient Education: Patient Medication Summary Completed 09/16/2014 Patient Education: Hypertension Completed 09/16/2014 Appointment: Giuliana Manuel WPtel: [address] [place], [place] [id number] Follow up 09/09/2014 Visit Plan: Hypertension - uncontro lled - the patient's medications have been modified as documented in the visit note. The patient has been counseled to cut back on salt in diet for a no added salt diet, low fat d iet, start an exercise program with low weight bearing exercises and higher aerobic activity for heart health. The patient is to check blood pressure readings as an outpatient and either fax, call, or email the readings to the office next week for practitioner to review. The pt is to call for acute concerns. Continue with atenolol and HCTZ, Start losartan (Cozaar) 25mg take at bedtime Will refer to Dr. Willams and Holter monitor x 48 hour Nausea - bland diet, monitor symptoms with improvement in her blood pressure, may notice improved nausea. Pt to go to emergency room if symptoms worsen. 08/15/2014 Appointment: Giuliana Manuel WPtel: [address] [place], [place] [phone] Sick 08/15/2014 Patient Education: Patient Medication Summary Completed 08/15/2014 Patient Education: Hypertension Completed 08/15/2014 Care Plan: Referral Order SNOMED-CT : [id number] Ordered 08/15/2014 Appointment: Giuliana Manuel WPtel: [address] [place], [place] [phone] Follow up 06/18/2014 Visit Plan: [facility]. Rash - reaction to soy containing food/drink. Pt to avoid use of food or beverage or body products with soy. Pt to finish steroid taper and call offic e if not improving. Pt to take steroid with food to avoid stomach upset. Hypertension - well controlled - continue with current medications, continue with no added salt diet. Pt has been encouraged to exercise daily. The pt has been advised to call the office if there are any acute concerns about change in blood pressure readings at home. 06/12/2014 Appointment: Giuliana Manuel WPtel: [address] [place] [id number] Sick 06/12/2014 Patient Education: Patient Medication Summary Completed 06/12/2014 Patient Education: Hypertension Completed 06/12/2014 Care Plan: Referral Order SNOMED-CT : [id number] Ordered 06/12/2014 Visit Plan: Hypertension - well con trolled - continue with current medications, continue with no added salt diet. Pt has been encouraged to exercise daily. The pt has been advised to call the office if there are any acute concerns about change in blood pressure readings at home. Back pain - Muscle aches - pt is to stop the statin therapy - and she is to start on ibuprofen 600mg bid x 10 days, then change to as needed, if symptoms do not resolve or improve with stopping of the statin, we will then do lumbar and throacic spine xrays. 03/20/2014 Appointment: Giuliana Manuel WPtel: [facility]5 [facility] Follow up 03/20/2014 Patient Education: Patient Medication Summary Completed 03/20/2014 Visit Plan: Hyperlipidemia - pt has been counseled about appropriate diet, exercise, and need for low fat food choices. I have discussed the need for the patient to take medications as prescribed. If the patient has negative side effects from the medication, they are to CALL the office and not abruptly discontinue the medication without discussion with a practicioner in the office. We will check labs in 3-6 months for follow up on the patient's chronic medical problem and to assure normal liver response to medications. Pt's labs are significantly improved from last labs - pt to stay on statin therapy. Hypertension - well controlled - continue with current medications, continue with no added salt diet. Pt has been encouraged to exercise daily. The pt has been advised to call the office if there are any acute concerns about change in blood pressure readings at home. Abdominal pain - recommended pt to increase the fiber in her diet. Urine check was negative for a UTI 12/10/2013 Appointment: Giuliana Manuel WPtel: [address] [facility] Follow up 12/10/2013 Patient Education: Patient Medication Summary Completed 12/10/2013 Patient Education: Hypertension Completed 12/10/2013 Visit Plan: Hypertension - well con trolled - continue with current medications, continue with no added salt diet. Pt has been encouraged to exercise daily. The pt has been advised to call the office if there are any acute concerns about change in blood pressure readings at home. Hyperlipidemia - pt has been counseled about appropriate diet, exercise, and need for low fat food choices. I have discussed the need for the patient to take medications as prescribed. If the patient has negative side effects from the medication, they are to CALL the office and not abruptly discontinue the medication without discussion with a practicioner in the office. We will check labs in 3-6 months for follow up on the patient's chronic medical problem and to assure normal liver response to medications. Pt has agreed to restart the atorvastatin and start three times weekly. 09/17/2013 Appointment: Giuliana Manuel WPtel: [phone] [id number] Follow up 09/17/2013 Patient Education: Patient Medication Summary Completed 09/17/2013 Patient Education: Hypertension Completed 09/17/2013 Visit Plan: Hypertension - well con trolled - continue with current medications, continue with no added salt diet. Pt has been encouraged to exercise daily. The pt has been advised to call the office if there are any acute concerns about change in blood pressure readings at home. Overweight - pt has lost 6.5 pounds and has been feeling a little bit better off and on. Back pain - recommended pt to start with muscle rub. 05/21/2013 Appointment: Giuliana Manuel WPtel: [phone] [id number] Follow up 05/21/2013 Patient Education: Patient Medication Summary Completed 05/21/2013 Patient Education: Hypertension Completed 05/21/2013 Visit Plan: Hypertension - well con trolled - continue with current medications, continue with no added salt diet. Pt has been encouraged to exercise daily. The pt has been advised to call the office if there are any acute concerns about change in blood pressure readings at home. Hyperlipidemia - pt has been counseled about appropriate diet, exercise, and need for low fat food choices. I have discussed the need for the patient to take medications as prescribed. If the patient has negative side effects from the medication, they are to CALL the office and not abruptly discontinue the medication without discussion with a practicioner in the office. We will check labs in 3-6 months for follow up on the patient's chronic medical problem and to assure normal liver response to medications. Pt is on Niacin - did not tolerate the statins, with her weight loss, will check labs. Abdominal pain - recommended pt to seeif the abdominal pain worsens with specific foods - monitor. Vertigo - chronic in nature - pt to continue with vertigo exercises, needs to be doing this chronically. Pt given exercises for the vertigo. 01/17/2013 App[facility]ment: [id number] Follow up 01/17/2013 Patient Education: Patient Medication Summary Completed 01/17/2013 Patient Education: Hypertension Completed 01/17/2013 Visit Plan: Hypertension - well con trolled - continue with current medications, continue with no added salt diet. Pt has been encouraged to exercise daily. The pt has been advised to call the office if there are any acute concerns about change in blood pressure readings at home. BPPV - Benign Paroxysmal Positional Vertigo - discussed diagnosis with the patient, offered the pt the appropriate additional information in hand-out. Pt instructed in home exercises to help alleviate and prevent future recurrent episodes of vertigo. Pt informed that if symptoms worsen, call the office for further instructions/medication interventions. Vitamin D deficiency - - check vitamin D level Hair loss - check TSH and consider treatment if needed. 09/20/2012 Appointment: Giuliana Manuel WPtel[id number] Follow up 09/20/2012 Patient Education: Patient Medication Summary Completed 09/20/2012 Patient Education: Hypertension Completed 09/20/2012 Visit Plan: BPPV - Benign Paroxysma l Positional Vertigo - discussed diagnosis with the patient, offered the pt the appropriate additional information in hand-out. Pt instructed in home exercises to help alleviate and prevent future recurrent episodes of vertigo. Pt informed that if symptoms worsen, call the office for further instructions/medication interventions. Hypertension - well controlled - continue with current medications, continue with no added salt diet. Pt has been encouraged to exercise daily. The pt has been advised to call the office if there are any acute concerns about change in blood pressure readings at home. Hyperlipidemia - pt to continue with gemfibrozil, call if having muscle weakness from medication, or symptoms of intolerance begin. 06/08/2012 Appointment: Giuliana Manuel WPtel: [address] [place], [place] [id number] Follow up 06/08/2012 Patient Education: Patient Medication Summary Completed 06/08/2012 Patient Education: High Blood Pressure: Essential Hypertension Completed 06/08/2012 Visit Plan: Neck pain- start physic al therapy and MRI OF CERVICAL SPINE The pt is to use prn antiinflammatories to manage acute pain. The patient is to call the office if the pain is worsening or does not improve. Diverticulitis - pt started on a liquid diet, and given RX for flagyl and cipro. No seeds, nuts, or popcorn. 04/10/2012 Appointment: Giuliana Manuel WPtel: [address] [place], [place] [phone] Other 04/10/2012 Patient Education: Patient Medication Summary Completed 04/10/2012 Patient Education: .Amazing charts Parox ysmal positional vertigo Completed 04/10/2012 Patient Education: Diverticulosis Diet Completed 04/10/2012 Visit Plan: Trigger Points - Inject ed trigger points today, pt given post-injection instructions, signs and symptoms for which to call the office. Pt to use heat to the muscles today, and take an anti-inflammatory today unless otherwise contraindicated by renal function or other disease process. Trigger points of left upper back and shoulder and neck Shoulder, neck and back pain - continue with prednisone taper as directed and use heat to neck and back - call if not better by Tuesday. 03/16/2012 Appointment: Giuliana Manuel WPtel: [address] [place], [place] [phone] [place] Other 03/16/2012 Patient Education: Patient Medication Summary Completed 03/16/2012 Visit Plan: Hypertension - well con trolled - continue with current medications, continue with no added salt diet. Pt has been encouraged to exercise daily. The pt has been advised to call the office if there are any acute concerns about change in blood pressure readings at home. Hyperlipidemia - pt has been counseled about appropriate diet, exercise, and need for low fat food choices. I have discussed the need for the patient to take medications as prescribed. If the patient has negative side effects from the medication, they are to CALL the office and not abruptly discontinue the medication without discussion with a practicioner in the office. We will check labs in 3-6 months for follow up on the patient's chronic medical problem and to assure normal liver response to medications. DUE TO PAIN AND MUSCLE WEAKNESS - WE HAVE DECIDED TO HOLD THE LIPITOR (ATORVASTATIN) FOR TWO WEEKS AND NARINDER IS TO CALL THE OFFICE AND LET US KNOW IF HER PAIN AND WEAKNESS IS BETTER OFF OF THE LIPITOR. IF THE PAIN AND WEAKNESS ARE BETTER OFF OF THE LIPITOR, THEN WILL TRY GEMFIBROZIL 600MG BID FOR HER CHOLESTEROL TREATMENT. NO CHANGE IN OTHER MEDICATIONS OF FISH OIL AND NIACIN. Constipation - uncontrolled - I have discussed with the patient the need for adequate fiber and water intake to facilitate soft, easily passed stools. The pt noted understanding of our conversation. I have given the patient a recipe for "power pudding" - equal parts, bran flakes, prune juice, and apple sauce. The pt is to call if symptoms not improved on this regimen. 02/03/2012 Appointment: Giuliana Manuel WPtel: [id number] Other 02/03/2012 Patient Education: Patient Medication Summary Completed 02/03/2012 Patient Education: High Blood Pressure: Essential Hypertension Completed 02/03/2012 Patient Education: .Amazing charts Power Pudding Completed 02/03/2012 Visit Plan: Hyperlipidemia - pt has been counseled about appropriate diet, exercise, and need for low fat food choices. I have discussed the need for the patient to take medications as prescribed. If the patient has negative side effects from the medication, they are to CALL the office and not abruptly discontinue the medication without discussion with a practicioner in the office. We will check labs in 3-6 months for follow up on the patient's chronic medical problem and to assure normal liver response to medications. START ON LIPITOR 10 mg every other day. Hypertension - well controlled - continue with current medications, continue with no added salt diet. Pt has been encouraged to exercise daily. The pt has been advised to call the office if there are any acute concerns about change in blood pressure readings at home. Vitamin D deficiency - pt to take an extra 5000mg of vitamin D once a week. 11/04/2011 Appointment: Giuliana Manuel WPtel: [address] [place], [place] [phone] Follow up 11/04/2011 Patient Education: Patient Medication Summary Completed 11/04/2011 Patient Education: High Blood Pressure: Essential Hypertension Completed 11/04/2011 Visit Plan: Abdominal pain - Gas an d bloating - discussed pt's need to monitor symptoms in relation to food intake. The patient has been instructed that the fat in her meals may be contributing to her symptoms. Pt is to keep a food diary. Obesity - chronic issue with this patient. The pt has been counseled about diet changes, calorie restriction, and need to exercise. Pt will RTC in a few months for weight check. 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 She will monitor her intake. Allergies - zyrte for the headaches to see ifnallergy medication helps to prevent the headaches flu shot pneumonia shot 07/13/2011 Appointment: Giuliana Manuel WPtel: [address] [place], [place] [phone] Other 07/13/2011 Patient Education: Patient Medication Summary Completed 07/13/2011 Patient Education: .Amazing yana [employer] tic meal planning guide Completed 07/13/2011 Referral: Jared Lafleur [address] [place], [place] [phone] [place] Referral Appointment Requested Referral: Duarte Catalan Referral Appointment Requested Referral: Dr. Willams WPtel: [address] [place], [place] [phone] [place] Referral Initiated Referral: [facility] WPtel: [address] [facility] [place] Referral Initiated Instructions Comment Add a losartan pill in the morning. Continue to check blood pressures, follow up in 2 weeks to see how you are doing. cut back on salt in diet for a no added salt diet, low fat diet, start an exercise program with low weight bearing exercises and higher aerobic activity for heart health. check blood pressure . Hypertension - uncontrolled - the osmin ent's medications have been modified as documented in the visit note. The patient has been counseled to cut back on salt in diet for a no added salt diet, low fat diet, start an exercise program with low weight bearing exercises and higher aerobic activity for heart health. The patient is to check blood pressure readings as an outpatient and either fax, call, or email the readings to the office next week for practitioner to review. The pt is to call for acute concerns. BMI 36 - The pt has been counseled about diet changes, calorie restriction, and need to exercise. Pt will RTC in 2 weeks for weight check. Back pain - Muscle a ches - pt is to stop the statin therapy - and she is to start on ibuprofen 600mg bid x 10 days, then change to as needed, if symptoms do not resolve or improve with stopping of the statin, we will then do lumbar and throacic spine xrays. . Hypertension - well controlled - mj nue with current medications, continue with no added salt diet. Pt has been encouraged to exercise daily. The pt has been advised to call the office if there are any acute concerns about change in blood pressure readings at home. Back pain - Muscle aches - pt is to stop the statin therapy - and she is to start on ibuprofen 600mg bid x 10 days, then change to as needed, if symptoms do not resolve or improve with stopping of the statin, we will then do lumbar and throacic spine xrays. . Sinusitis - Pt has acute infection - pain in face, maxillary region, Pt informed to use decongestant, RX given to patient, sinus rinses also recommended. Call if symptoms do not show improvement. . Hypertension - wel l controlled - continue with current medications, continue with no added salt diet. Pt has been encouraged to exercise daily. The pt has been advised to call the office if there are any acute concerns about change in blood pressure readings at home. BPPV - Benign Paroxysmal Positional Vertigo - discussed diagnosis with the patient, offered the pt the appropriate additional information in hand-out. Pt instructed in home exercises to help alleviate and prevent future recurrent episodes of vertigo. Pt informed that if symptoms worsen, call the office for further instructions/medication interventions. Vitamin D deficiency - - check vitamin D level Hair loss - check TSH and consider treatment if needed. . Varicose vein -rig ht lower leg -mildly tender -not inflamed -instructed patient to monitor and call if symptoms worsen, persist or new symptoms develop. Patient verbalized understanding of plan. . Hypertension - wel l controlled - continue with current medications, continue with no added salt diet. Pt has been encouraged to exercise daily. The pt has been advised to call the office if there are any acute concerns about change in blood pressure readings at home. Palpitations - stable today - recommended pt to have an extra atenolol with her to take when she has symptoms of palpitations. Shoulder pain - - occasionally uncontrolled symptoms- recommend pt to take antiinflammatory as directed for pain control. Use tylenol for break through pain symptoms. . Hyperlipidemia - pt has been counseled about appropriate diet, exercise, and need for low fat food choices. I have discussed the need for the patient to take medications as prescribed. If the patient has negative side effects from the medication, they are to CALL the office and not abruptly discontinue the medication without discussion with a practicioner in the office. We will check labs in 3-6 months for follow up on the patient's chronic medical problem and to assure normal liver response to medications. START ON LIPITOR 10 mg every other day. Hypertension - well controlled - continue with current medications, continue with no added salt diet. Pt has been encouraged to exercise daily. The pt has been advised to call the office if there are any acute concerns about change in blood pressure readings at home. Vitamin D deficiency - pt to take an extra 5000mg of vitamin D once a week. . Trigger Points - I njected trigger points today, pt given post-injection instructions, signs and symptoms for which to call the office. Pt to use heat to the muscles today, and take an anti-inflammatory today unless otherwise contraindicated by renal function or other disease process. Trigger points of left upper back and shoulder and neck Shoulder, neck and back pain - continue with prednisone taper as directed and use heat to neck and back - call if not better by Tuesday. . Hypertension - unc ontrolled - the patient's medications have been modified as documented in the visit note. The patient has been counseled to cut back on salt in diet for a no added salt diet, low fat diet, start an exercise program with low weight bearing exercises and higher aerobic activity for heart health. The patient is to check blood pressure readings as an outpatient and either fax, call, or email the readings to the office next week for practitioner to review. The pt is to call for acute concerns. . Neck pain- start p hysical therapy and MRI OF CERVICAL SPINE The pt is to use prn antiinflammatories to manage acute pain. The patient is to call the office if the pain is worsening or does not improve. Diverticulitis - pt started on a liquid diet, and given RX for flagyl and cipro. No seeds, nuts, or popcorn. increase Atenolol to 1.5 tabs twice daily . Hypertension - uncontrolled - the osmin ent's medications have been modified as documented in the visit note. The patient has been counseled to cut back on salt in diet for a no added salt diet, low fat diet, start an exercise program with low weight bearing exercises and higher aerobic activity for heart health. The patient is to check blood pressure readings as an outpatient and either fax, call, or email the readings to the office next week for practitioner to review. The pt is to call for acute concerns. KENALOG CONTINUE BENADRYL AT BEDTIME . Right ear pain -concern for trigeminal neuralgia -she does have some sinus tenderness -will give kenalog injection today -continue anti histamine daily - monitor symptoms and call if persistent, worsen or new symptoms develop. Patient verbalized understanding of plan. . Hypertension - unc ontrolled - the patient's medications have been modified as documented in the visit note. The patient has been counseled to cut back on salt in diet for a no added salt diet, low fat diet, start an exercise program with low weight bearing exercises and higher aerobic activity for heart health. The patient is to check blood pressure readings as an outpatient and either fax, call, or email the readings to the office next week for practitioner to review. The pt is to call for acute concerns. Esophageal Reflux - the patient has been counseled against excessive intake of caffeine, spicy foods, peppermint, and cinnamon - all of which can exacerbate esophageal reflux. The patient is to take medications as prescribed and call the office if the symptoms are not improving. Pt to start on carafate . Hypertension - wel l controlled - continue with current medications, continue with no added salt diet. Pt has been encouraged to exercise daily. The pt has been advised to call the office if there are any acute concerns about change in blood pressure readings at home. . Hypertension - uncontrolled - the patient's medications have been modified as documented in the visit note. The patient has been counseled to cut back on salt in diet for a no added salt diet, low fat diet, start an exercise program with low weight bearing exercises and higher aerobic activity for heart health. The patient is to check blood pressure readings as an outpatient and either fax, call, or email the readings to the office next week for practitioner to review. The pt is to call for acute concerns. 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 Psoriasis - continue with steroid cream as prescribed today. Hair loss - and weight gain - recommended pt to have labs checked today. . Hypertension - wel l controlled - continue with current medications, continue with no added salt diet. Pt has been encouraged to exercise daily. The pt has been advised to call the office if there are any acute concerns about change in blood pressure readings at home. Abdominal bloating - recommended gas-ex otc. - cut back on carbonated beverages. . Hypertension - wel l controlled - continue with current medications, continue with no added salt diet. Pt has been encouraged to exercise daily. The pt has been advised to call the office if there are any acute concerns about change in blood pressure readings at home. Sacroiliitis - back exercises discussed with the patient, pt to continue with anti-inflammatories. Pt is to call if the symptoms do not improve or if they worsen. . Right knee pain -c ontinue rest, ice and anti inflammatories- call if pain does not improve or if any worse Fracture of right fibular shaft-xray shows healing -no change in current treatment -continue rest, anti inflammatories . Right earache -karl pect trigeminal neuralgia- recommend patient have a dental eval to also check tooth that is bothering her on the right upper jaw -discussed treating trigeminal neuralgia if tooth is okay but instructed her to call if symptoms worsen -patient verbalized understanding of plan. . Back pain - referr al to [facility] therapy. Rash - reaction to soy containing food/drink. Pt to avoid use of food or beverage or body products with soy. Pt to finish steroid taper and call office if not improving. Pt to take steroid with food to avoid stomach upset. Hypertension - well controlled - continue with current medications, continue with no added salt diet. Pt has been encouraged to exercise daily. The pt has been advised to call the office if there are any acute concerns about change in blood pressure readings at home. . Hypertension - wel l controlled - continue with current medications, continue with no added salt diet. Pt has been encouraged to exercise daily. The pt has been advised to call the office if there are any acute concerns about change in blood pressure readings at home. BPPV - Benign Paroxysmal Positional Vertigo - discussed diagnosis with the patient, offered the pt the appropriate additional information in hand-out. Pt instructed in home exercises to help alleviate and prevent future recurrent episodes of vertigo. Pt informed that if symptoms worsen, call the office for further instructions/medication interventions. Recommended pt to be seen by cardiology - need to consider a stress test. . Hypertension - we ll controlled - continue with current medications, continue with no added salt diet. Pt has been encouraged to exercise daily. The pt has been advised to call the office if there are any acute concerns about change in blood pressure readings at home. Hyperlipidemia - pt has been counseled about appropriate diet, exercise, and need for low fat food choices. I have discussed the need for the patient to take medications as prescribed. If the patient has negative side effects from the medication, they are to CALL the office and not abruptly discontinue the medication without discussion with a practicioner in the office. We will check labs in 3-6 months for follow up on the patient's chronic medical problem and to assure normal liver response to medications. DUE TO PAIN AND MUSCLE WEAKNESS - WE HAVE DECIDED TO HOLD THE LIPITOR (ATORVASTATIN) FOR TWO WEEKS AND NARINDER IS TO CALL THE OFFICE AND LET US KNOW IF HER PAIN AND WEAKNESS IS BETTER OFF OF THE LIPITOR. IF THE PAIN AND WEAKNESS ARE BETTER OFF OF THE LIPITOR, THEN WILL TRY GEMFIBROZIL 600MG BID FOR HER CHOLESTEROL TREATMENT. NO CHANGE IN OTHER MEDICATIONS OF FISH OIL AND NIACIN. Constipation - uncontrolled - I have discussed with the patient the need for adequate fiber and water intake to facilitate soft, easily passed stools. The pt noted understanding of our conversation. I have given the patient a recipe for "power pudding" - equal parts, bran flakes, prune juice, and apple sauce. The pt is to call if symptoms not improved on this regimen. . Hyperlipidemia - pt has been counseled about appropriate diet, exercise, and need for low fat food choices. I have discussed the need for the patient to take medications as prescribed. If the patient has negative side effects from the medication, they are to CALL the office and not abruptly discontinue the medication without discussion with a practicioner in the office. We will check labs in 3-6 months for follow up on the patient's chronic medical problem and to assure normal liver response to medications. Pt's labs are significantly improved from last labs - pt to stay on statin therapy. Hypertension - well controlled - continue with current medications, continue with no added salt diet. Pt has been encouraged to exercise daily. The pt has been advised to call the office if there are any acute concerns about change in blood pressure readings at home. Abdominal pain - recommended pt to increase the fiber in her diet. Urine check was negative for a UTI Continue with atenol ol and HCTZ, Start losartan (Cozaar) 25mg take at bedtime Will refer to Dr. Willams and Holter monitor x 48 hour . Hypertension - uncontrolled - the osmin ent's medications have been modified as documented in the visit note. The patient has been counseled to cut back on salt in diet for a no added salt diet, low fat diet, start an exercise program with low weight bearing exercises and higher aerobic activity for heart health. The patient is to check blood pressure readings as an outpatient and either fax, call, or email the readings to the office next week for practitioner to review. The pt is to call for acute concerns. Continue with atenolol and HCTZ, Start losartan (Cozaar) 25mg take at bedtime Will refer to Dr. Willams and Holter monitor x 48 hour Nausea - bland diet, monitor symptoms with improvement in her blood pressure, may notice improved nausea. Pt to go to emergency room if symptoms worsen. . Hypertension - wel l controlled - continue with current medications, continue with no added salt diet. Pt has been encouraged to exercise daily. The pt has been advised to call the office if there are any acute concerns about change in blood pressure readings at home. Overweight - pt has lost 6.5 pounds and has been feeling a little bit better off and on. Back pain - recommended pt to start with muscle rub. . Hypertension - wel l controlled - continue with current medications, continue with no added salt diet. Pt has been encouraged to exercise daily. The pt has been advised to call the office if there are any acute concerns about change in blood pressure readings at home. Hyperlipidemia - pt has been counseled about appropriate diet, exercise, and need for low fat food choices. I have discussed the need for the patient to take medications as prescribed. If the patient has negative side effects from the medication, they are to CALL the office and not abruptly discontinue the medication without discussion with a practicioner in the office. We will check labs in 3-6 months for follow up on the patient's chronic medical problem and to assure normal liver response to medications. Pt has agreed to restart the atorvastatin and start three times weekly. . Hypertension - wel l controlled - continue with current medications, continue with no added salt diet. Pt has been encouraged to exercise daily. The pt has been advised to call the office if there are any acute concerns about change in blood pressure readings at home. Palpitations resolved. . Hypertension - wel l controlled - continue with current medications, continue with no added salt diet. Pt has been encouraged to exercise daily. The pt has been advised to call the office if there are any acute concerns about change in blood pressure readings at home. Post-polio syndrome - generalized weakness - I have recommended patient to have Referral to Dr. Kothari to do EMG. Vitamin D deficiency - continue with vitamin D daily. ibuprofen 2 pills 3 times a day x 3 days voltaren gel 3 times a day x 3 days if no better let me know and we will order an MRI. Right arm/shoulder pain - the patient was instructed in appropriate posture. The pt is to use prn antiinflammatories to manage acute pain. The patient is to call the office if the pain is worsening or does not improve. hold the omega 3 fis h oil tabs x 2 weeks take ibuprofen 400mg twice daily x 2 weeks - then stop and restart the fish oil vitamin b 12 liquid or dissolving tablets - 2000mcg daily folate 100mg daily . Hypertension - well controlled - mj nue with current medications, continue with no added salt diet. Pt has been encouraged to exercise daily. The pt has been advised to call the office if there are any acute concerns about change in blood pressure readings at home. 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 hold the omega 3 fish oil tabs x 2 weeks take ibuprofen 400mg twice daily x 2 weeks - then stop and restart the fish oil Esophageal Reflux - the patient has been counseled against excessive intake of caffeine, spicy foods, peppermint, and cinnamon - all of which can exacerbate esophageal reflux. The patient is to take medications as prescribed and call the office if the symptoms are not improving. bland diet, low fat diet, start on probiotic, and rehydrate with gatorade-like product. Pt to call if feeling worse, diarrhea becomes bloody, or does not improve with above recommendations. Pt to call for acute worsening of stomach upset or stomach pain.. Diarrhea - recommended bland diet, low fat diet, start on probiotic, and rehydrate with gatorade-like product. Pt to call if feeling worse, diarrhea becomes bloody, or does not improve with above recommendations. Pt to call for acute worsening of stomach upset or stomach pain. Gastroenteritis - discussed need to stay away from milk products while acutely ill with diarrhea and nausea and emesis as it may worsen the symptoms. Liquids initially until the nausea improves, then recommend to advance to bland diet for 1 day, then advance as tolerated. Call if symptoms not improved. hold clonidine x 3 d ays then restart if blood pressure is above 130/70. start on Robitussin over the counter and start on mucinex 600mg twice daily x 7 days . Hypertension - well controlled - mj nue with current medications, continue with no added salt diet. Pt has been encouraged to exercise daily. The pt has been advised to call the office if there are any acute concerns about change in blood pressure readings at home.hold clonidine x 3 days then restart if blood pressure is above 130/70. URI - Pt advised to increase fluids, vitamin C. Discussed natural and expected course of this diagnosis and need to alert me if symptoms do not follow expected course, or if any worse. RX sent to patient's pharmacy. start on Robitussin over the counter and start on mucinex 600mg twice daily x 7 days apply the voltaren g el to both sides of your lower back - 4 times a day. take the naproxen 500mg twice daily x 1 week . Hypertension - well controlled - mj nue with current medications, continue with no added salt diet. Pt has been encouraged to exercise daily. The pt has been advised to call the office if there are any acute concerns about change in blood pressure readings at home. Sacroilitis - Lumbago with sciatic symptoms - rx for naproxen and voltaren gel, if not improving in the next 5-7 days - pt to call the office, she may need injection into low back. . Abdominal pain - G as and bloating - discussed pt's need to monitor symptoms in relation to food intake. The patient has been instructed that the fat in her meals may be contributing to her symptoms. Pt is to keep a food diary. Obesity - chronic issue with this patient. The pt has been counseled about diet changes, calorie restriction, and need to exercise. Pt will RTC in a few months for weight check. 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 She will monitor her intake. Allergies - zyrtec for the headaches to see ifnallergy medication helps to prevent the headaches flu shot pneumonia shot . BPPV - Benign Paro xysmal Positional Vertigo - discussed diagnosis with the patient, offered the pt the appropriate additional information in hand-out. Pt instructed in home exercises to help alleviate and prevent future recurrent episodes of vertigo. Pt informed that if symptoms worsen, call the office for further instructions/medication interventions. Hypertension - well controlled - continue with current medications, continue with no added salt diet. Pt has been encouraged to exercise daily. The pt has been advised to call the office if there are any acute concerns about change in blood pressure readings at home. Hyperlipidemia - pt to continue with gemfibrozil, call if having muscle weakness from medication, or symptoms of intolerance begin. . Influenza - pt sta rted on tamiflu - pt to start on anti- inflammatories, tylenol and monitor symptoms. Pt to call if not improving. Pt to alert any close contacts as to illness. . Hypertension - wel l controlled - continue with current medications, continue with no added salt diet. Pt has been encouraged to exercise daily. The pt has been advised to call the office if there are any acute concerns about change in blood pressure readings at home. Hyperlipidemia - pt has been counseled about appropriate diet, exercise, and need for low fat food choices. I have discussed the need for the patient to take medications as prescribed. If the patient has negative side effects from the medication, they are to CALL the office and not abruptly discontinue the medication without discussion with a practicioner in the office. We will check labs in 3-6 months for follow up on the patient's chronic medical problem and to assure normal liver response to medications. Pt is on Niacin - did not tolerate the statins, with her weight loss, will check labs. Abdominal pain - recommended pt to seeif the abdominal pain worsens with specific foods - monitor. Vertigo - chronic in nature - pt to continue with vertigo exercises, needs to be doing this chronically. Pt given exercises for the vertigo. STOP CLONIDINE INCREASE DOXAZOSIN TO TWICE DAILY MAY TAKE A 3RD DOSE IF NEEDED FOR ELEVATED BLOOD PRESSURE RESTART HCTZ . Hypertension - - the patient's medicat ions have been modified as documented in the visit note. The patient has been counseled to cut back on salt in diet for a no added salt diet, low fat diet, start an exercise program with low weight bearing exercises and higher aerobic activity for heart health. The patient is to check blood pressure readings as an outpatient and either fax, call, or email the readings to the office next week for practitioner to review. The pt is to call for acute concerns. STOP CLONIDINE DUE TO NIGHTMARES-INCREASE DOXAZOSIN TO TWICE DAILY-CHECK POTASSIUM LEVEL-OKAY TO RESTART HCTZ . Hypertension - wel l controlled - continue with current medications, continue with no added salt diet. Pt has been encouraged to exercise daily. The pt has been advised to call the office if there are any acute concerns about change in blood pressure readings at home. 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 Esophageal Reflux - the patient has been counseled against excessive intake of caffeine, spicy foods, peppermint, and cinnamon - all of which can exacerbate esophageal reflux. The patient is to take medications as prescribed and call the office if the symptoms are not improving. KENALOG FLONASE BENADRYL . Allergies - chronic - recommended pt t o use allergy medication as prescribed. Pt has been counseled as to the appropriate use of the medication. Pt to call if allergy symptoms are not controlled with the medication. If using nasal spray, instructions as follows: Nasal spray- use twice daily, one spray per nostril twice daily, after 30 minutes, rinse out nose with saline spray.. Use opposite hand per nostril to spray in the nasal steroid allergy spray. KENALOG FLONASE BENADRYL . Allergies - chronic - recommended pt t o use allergy medication as prescribed. Pt has been counseled as to the appropriate use of the medication. Pt to call if allergy symptoms are not controlled with the medication. If using nasal spray, instructions as follows: Nasal spray- use twice daily, one spray per nostril twice daily, after 30 minutes, rinse out nose with saline spray.. Use opposite hand per nostril to spray in the nasal steroid allergy spray.
--- OUTSIDE RECORDS SUMMARY | 2020-01-21 13:52 | XMS REPORT | CCD ---
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 09/08/2015 Marital status Unknown M arried 07/13/[address]: 093412532 Nonsmoker 07/13/[address]: 130370809 Never drinks alcohol 07/13/2011 Allergies, Adverse Reactions, Alerts Substance Reaction Codes Entered Date Inactivated Date Status Soy Unknown 07/13/2011 No Inactive Date Active Cardizem RxNorm: 685559 05/19/2016 No Inactive Date Active Metoprolol Succinate [...] pain ICD-9: 789.00 Active 07/13/2011 Unknown DIETARY SURVEIL/TRADE SHOW COORDINATOR ICD-9: V65.3 Active 07/13/2011 Unknown OBESITY ICD-9: [...] Abdominal pain ICD-9: 789.00 07/13/2011 Active DIETARY SURVEIL/TRADE SHOW COORDINATOR ICD-9: V65.3 07/13/2011 Active OBESITY ICD-9: 278.00 07/13/2011 Active Postprandial bloating ICD-9: 787.3 07/13/2011 Active Seasonal allergies ICD- 9: 477.9 07/13/2011 Active VAC STREP PNEUMONIAE -FLU ICD-9: V06.6 07/13/2011 Active Medications Medication Codes Instruc tions Start Date Stop Date Sta tus Fill Instructions clonidine HCl 0.1 mg tablet RxNorm: 777523 TAKE ONE-HALF TABLET BY MOUTH TWO TIMES DAILY 04/04/2019 03/28/2020 Active - Ref: [id number] doxazosin 1 mg tablet RxNorm: 586858 TAKE 1 TABLET BY MOUTH EVERY DAY AT MIDN IGHT 02/27/2019 11/23/2019 Ac tive - Ref: [id number] hydrochlorothiazide 12.5 mg tablet RxNorm: 826198 TAKE 1 TABLET BY MOUT H EVERY DAY 02/27/2019 11/23/2019 Ac tive - Ref: [id number] famotidine 40 mg tablet RxNorm: 384308 TAKE 1 TABLET BY MOUTH EVERY MORNING 02/27/2019 11/23/2019 Ac tive - Ref: [id number] Kenalog 40 mg/mL karl pension for injection RxNorm: 1809408 Milliliter(s) Inj 01/01/2019 01/01/2019 In active losartan 25 mg tablet RxNorm: 114140 1 Tablet(s) PO BID 11/01/2018 10/26/2019 Active losartan 25 mg tablet RxNorm: 907163 1 Tablet(s) PO BID 11/01/2018 10/31/2018 Inactive hydrochlorothiazide 12.5 mg tablet RxNorm: 037770 TAKE 1 TABLET BY MOUT H EVERY DAY 10/02/2018 02/26/2019 In active - First Attempt Ref: [id number] famotidine 40 mg tablet RxNorm: 083755 TAKE 1 TABLET BY MOUTH EVERY MORNING 10/02/2018 02/26/2019 In active - First Attempt Ref: [id number] doxazosin 1 mg tablet RxNorm: 543714 TAKE 1 TABLET BY MOUTH EVERY DAY AT [facility] 10/02/2018 02/26/2019 Inactive - First Attempt Ref: [id number] naproxen 500 mg tablet RxNorm: 677086 1 Tablet(s) PO BID 09/18/2018 09/24/2018 Inactive diclofenac 1 % topic al gel RxNorm: 699861 2 Application TOP QID 09/18/2018 11/16/2018 Inactive Kenalog 40 mg/mL karl pension for injection RxNorm: 6815556 1 Milliliter(s) Inj 08/31/2018 08/31/2018 In active clonidine HCl 0.1 mg tablet RxNorm: 247795 1/2 Tablet(s) PO BID 08/16/2018 04/03/2019 Inactive amoxicillin 500 mg t ablet RxNorm: 055719 1 Tablet(s) PO TID 08/14/2018 08/20/2018 Inactive losartan 25 mg tablet RxNorm: 328802 1 Tablet(s) PO BID 05/02/2018 05/01/2018 Inactive losartan 25 mg tablet RxNorm: 471077 1 Tablet(s) PO BID 05/02/2018 10/31/2018 Inactive losartan 25 mg tablet RxNorm: 348581 1 Tablet(s) PO BID 01/30/2018 05/01/2018 Inactive Vitamin D 2,000 unit capsule RxNorm: 1 Capsule(s) PO daily 11/18/2017 No Stop Date Active atenolol 25 mg tablet RxNorm: 470038 1 Tablet(s) PO daily 11/18/2017 11/12/2018 Inactive atenolol 25 mg tablet RxNorm: 415558 1 Tablet(s) PO BID managed by Dr Lafleur 11/18/2017 11/17/2017 In active clonidine HCl 0.1 mg tablet RxNorm: 209350 1/2 Tablet(s) PO BID 11/18/2017 08/15/2018 Inactive doxazosin 1 mg tablet RxNorm: 206047 1 Tablet(s) PO daily at midnight 11/18/2017 10/01/2018 In active midnight losartan 25 mg tablet RxNorm: 183729 1 Tablet(s) PO BID 11/18/2017 01/29/2018 Inactive hydrochlorothiazide 12.5 mg tablet RxNorm: 814988 1 Tablet(s) PO daily 11/18/2017 10/01/2018 In active famotidine 40 mg tablet RxNorm: 660357 1 Tablet(s) PO daily TAKE 1 TABLET BY MO GAH EVERY MORNING 11/18/2017 10/01/2018 Inactive - Ref: [id number] hydrochlorothiazide 12.5 mg tablet RxNorm: 183174 1 Tablet(s) PO daily 10/28/2017 11/17/2017 In active famotidine 40 mg tablet RxNorm: 395874 TAKE 1 TABLET BY MOUTH EVERY MORNING 10/04/2017 11/17/2017 In active - Ref: [id number] clonidine HCl 0.1 mg tablet RxNorm: 280294 1/2 Tablet(s) PO BID 07/05/2017 11/17/2017 Inactive doxazosin 1 mg tablet RxNorm: 426501 1 Tablet(s) PO daily at midnight 07/05/2017 11/17/2017 In active midnight doxazosin 1 mg tablet RxNorm: 607613 1 Tablet(s) PO BID 12/02/2016 2017 Inactive midnight prednisone 20 mg tablet RxNorm: 132036 3 Tablet(s) PO daily 11/22/2016 11/26/2016 Inactive Tessalon Perles 100 mg capsule RxNorm: 634229 1 -2 Capsule(s) PO TI D as needed cough 11/19/2016 12/31/2018 Inactive Zithromax Z-Jeff 250 mg tablet RxNorm: 125618 1 Tablet(s) PO UD 11/19/2016 12/01/2016 Inactive z pack as directed Tamiflu 75 mg capsule RxNorm: 761137 1 Capsule(s) PO BID 11/05/2016 11/09/2016 Inactive Kenalog 40 mg/mL karl pension for injection RxNorm: 8509960 Milliliter(s) Inj 11/05/2016 11/05/2016 In active Tessalon Perles 100 mg capsule RxNorm: 834714 1 -2 Capsule(s) PO TI D as needed cough 11/04/2016 11/18/2016 Inactive famotidine 40 mg tablet RxNorm: 831370 1 Tablet(s) PO QAM 10/25/2016 10/03/2017 Inactive famotidine 40 mg tablet RxNorm: 909227 1 Tablet(s) PO QAM 08/02/2016 10/24/2016 Inactive Carafate 1 gram tablet RxNorm: 829374 1 Tablet(s) PO TID DISSOLVE THE PILL IN 10ML OF WATER 07/22/2016 10/19/2016 Inactive clonidine HCl 0.1 mg tablet RxNorm: 184714 1 Tablet(s) PO BID an d 1 tablet as needed 07/22/2016 12/01/2016 Inactive Cinnamon 1000 mg RxNorm: 1 PO daily 05/19/2016 No Stop Date Active aspirin 81 mg tablet ,delayed release RxNorm: 707496 1 Tablet(s) PO QHS 05/19/2016 11/27/2018 In active losartan 25 mg tablet RxNorm: 584380 1 Tablet(s) PO BID 05/19/2016 11/17/2017 Inactive atenolol 25 mg tablet RxNorm: 650649 1.5 Tablet(s) PO BID 02/13/2016 07/21/2016 Inactive losartan 25 mg tablet RxNorm: 516070 2 Tablet(s) PO BID 01/13/2016 05/11/2016 Inactive Cardizem CD 240 mg c apsule,extended release RxNorm: 288588 1 Capsule(s) PO daily 01/13/2016 02/12/2016 In active losartan 100 mg tablet RxNorm: 336690 1/2 Tablet(s) PO BID 01/08/2016 01/12/2016 Inactive losartan 25 mg tablet RxNorm: 828332 2 Tablet(s) PO QPM 1 Tablet(s) PO QPM 12/18/2015 01/07/2016 In active atenolol 25 mg tablet RxNorm: 223169 1.5 Tablet(s) PO BID TAKE ONE TABLET BY MOUTH TWICE A DAY 12/18/2015 01/12/2016 Inactive atenolol 25 mg tablet RxNorm: 007738 Tablet(s) TAKE ONE TABLET BY MOUTH TWICE A DAY 11/14/2015 12/17/2015 Inactive losartan 25 mg tablet RxNorm: 377907 Tablet(s) 1 Tablet(s) PO QPM 11/14/2015 12/17/2015 Inactive spironolactone 25 mg tablet RxNorm: 697284 1 Tablet(s) PO daily 11/14/2015 12/14/2015 Inactive atenolol 25 mg tablet RxNorm: 105091 TAKE ONE TABLET BY MOUTH TWICE A DAY 08/07/2015 11/13/2015 In active atenolol 25 mg tablet RxNorm: 041936 1 Tablet(s) PO daily TAKE ONE TABLET BY MOUTH TWICE DAILY 08/06/2015 08/06/2015 Inactive Generic For:TENORMIN 25 MG TABLET 05/05/2015 10:00:22 AM atenolol 25 mg tablet RxNorm: 592097 1 Tablet(s) PO daily TAKE ONE TABLET BY MOUTH TWICE DAILY 08/06/2015 08/05/2015 Inactive Generic For:TENORMIN 25 MG TABLET 05/05/2015 10:00:22 AM betamethasone diprop ionate 0.05 % topical ointment RxNorm: 244387 1 TOP TID as needed rash 07/09/2015 05/18/2016 Inactive betamethasone diprop ionate 0.05 % topical ointment RxNorm: 433024 1 TOP TID as needed rash 07/09/2015 07/08/2015 Inactive spironolactone 25 mg tablet RxNorm: 878375 1 Tablet(s) PO daily 07/09/2015 07/08/2015 Inactive spironolactone 25 mg tablet RxNorm: 953173 1 Tablet(s) PO daily 07/09/2015 11/13/2015 Inactive losartan 25 mg tablet RxNorm: 380506 Tablet(s) 1 Tablet(s) PO QPM 05/27/2015 11/13/2015 Inactive atenolol 25 mg tablet RxNorm: 579325 TAKE ONE TABLET BY MOUTH TWICE DAILY 05/05/2015 08/05/2015 In active Generic For:TENORMIN 25 MG TABLET 05/05 10:00:22 AM hydrochlorothiazide 25 mg tablet RxNorm: 239011 1/2 Tablet(s) PO BID 02/17/2015 07/08/2015 Inactive Generic For:HYDRODIURIL 25 MG TABLET sulfamethoxazole 800 mg-trimethoprim 160 mg tablet RxNorm: 421986 1 Tablet(s) PO BID 01/16/2015 01/25/2015 Inactive losartan 25 mg tablet RxNorm: 137281 1 Tablet(s) PO QPM 12/09/2014 05/26/2015 Inactive Kenalog 40 mg/mL karl pension for injection RxNorm: 3456736 1 Milliliter(s) Inj 09/16/2014 09/16/2014 In active prednisone 20 mg tablet RxNorm: 172682 3 Tablet(s) PO daily 09/16/2014 09/18/2014 Inactive losartan 25 mg tablet RxNorm: 904040 1 Tablet(s) PO QPM 08/15/2014 12/08/2014 Inactive hydrochlorothiazide 25 mg tablet RxNorm: 186349 TAKE 1/2 TABLET BY MO [facility] TWICE DAILY 08/13/2014 02/08/2015 Inactive Generic For:HYDRODIURIL 25 MG TABLET atenolol 25 mg tablet RxNorm: 640129 TAKE ONE TABLET BY MOUTH TWICE DAILY 05/07/2014 05/01/2015 In active Generic For:TENORMIN 25 MG TABLET ketorolac 60 mg/2 mL intramuscular solution RxNorm: 938424 2 Milliliter(s) IM 03/20/2014 03/20/2014 In active hydrochlorothiazide 25 mg tablet RxNorm: 441255 Tablet(s) PO TAKE 1/2 TABLET BY MOUTH TWICE DAILY 02/14/2014 08/12/2014 Inactive Generic For:HYDRODIURIL 25 MG TABLET Generic For:HYDRODIURIL 25 MG TABLET 02/14/2014 3:45:03 PM atorvastatin 10 mg t ablet RxNorm: 001745 1 Tablet(s) PO TIW 09/17/2013 03/19/2014 Inactive atorvastatin 10 mg t ablet RxNorm: 184364 tablet oral 09/17/2013 06/04/2015 Inactive hydrochlorothiazide 25 mg tablet RxNorm: 533699 Tablet(s) PO TAKE 1/2 TABLET BY MOUTH TWICE DAILY 08/06/2013 02/13/2014 Inactive Generic For:HYDRODIURIL 25 MG TABLET Generic For:HYDRODIURIL 25 MG TABLET 08/06/2013 1:52:35 PM amoxicillin 500 mg t ablet RxNorm: 259239 2 Tablet(s) PO 2 tabl ets PO 1 hour before dental procedure. 07/26/2013 07/25/2013 Inactive amoxicillin 500 mg t ablet RxNorm: 022885 2 Tablet(s) PO 2 tabl ets PO 1 hour before dental procedure. 07/26/2013 07/26/2013 Inactive methotrexate sodium 2.5 mg tablet RxNorm: 012156 tablet oral 07/13/2013 01/15/2015 Inactive atenolol 25 mg tablet RxNorm: 359066 Tablet(s) PO TAKE ONE TABLET BY MOUTH TW ICE DAILY 05/01/2013 05/06/2014 Inactive Generic For:TENORMIN 25 MG TABLET hydrochlorothiazide 25 mg tablet RxNorm: 602537 Tablet(s) PO TAKE 1/2 TABLET BY MOUTH TWICE DAILY 11/21/2012 08/05/2013 Inactive Generic For:HYDRODIURIL 25 MG TABLET atenolol 25 mg tablet RxNorm: 831127 Tablet(s) PO TAKE ONE TABLET BY MOUTH TW ICE DAILY 10/02/2012 04/30/2013 Inactive Generic For:TENORMIN 25 MG TABLET gemfibrozil 600 mg t ablet RxNorm: 447896 1 Tablet(s) PO BID 06/08/2012 10/08/2012 Inactive meclizine 25 mg tablet RxNorm: 0788546 1 Tablet(s) PO Q4 PRN 06/08/2012 09/05/2012 Inactive prednisone 10 mg Tab RxNorm: 060995 2 Tablet(s) PO daily 03/16/2012 03/20/2012 Inactive atorvastatin 10 mg Tab RxNorm: 541626 1 Tablet(s) PO daily 12/21/2011 12/20/2011 Inactive atorvastatin 10 mg Tab RxNorm: 560552 1 Tablet(s) PO daily 12/21/2011 06/08/2012 Inactive methotrexate sodium 2.5 mg Tab RxNorm: 965132 Tablet(s) PO 11/16/2011 06/12/2012 Inactive 3 on tuesday3 on hydrochlorothiazide 25 mg Tab RxNorm: 106648 1/2 Tablet(s) PO BID 11/01/2011 11/24/2012 Inactive hydrochlorothiazide 12.5 mg Cap RxNorm: 118599 Capsule(s) PO 11/01/2011 06/08/2012 Inactive TAKE ONE TABLET BY MOUTH TWICE DAILY;Gen sky For:MICROZIDE 12.5 MG CAPSULE hydrochlorothiazide 25 mg Tab RxNorm: 711321 1/2 Tablet(s) PO BID 11/01/2011 11/24/2012 Inactive hydrochlorothiazide 25 mg tablet RxNorm: 044095 1/2 Tablet(s) PO BID 11/01/2011 10/31/2011 Inactive hydrochlorothiazide 25 mg Tab RxNorm: 779764 1/2 Tablet(s) PO BID 11/01/2011 10/31/2011 Inactive atenolol 25 mg tablet RxNorm: 518595 Tablet(s) PO 10/04/2011 10/01/2012 Inactive TAKE ONE TABLET BY MOUTH TWICE DAILY;Generic For:TENORMIN 25 MG TABLET hydrochlorothiazide 12.5 mg Cap RxNorm: 240400 1 Capsule(s) PO BID 09/13/2011 10/31/2011 Inactive Influenza Virus Vacc ine 0.5 mL RxNorm: IM 07/13/2011 07/13/2011 Inactive Pneumovax 23 25 mcg/ 0.5 mL Injection RxNorm: 646231 Milliliter(s) Inj 07/13/2011 07/13/2011 In active vitamin B complex oral RxNorm: 69244 oral No Start Date Active Cinnamon 1000 mg RxNorm: 2 PO daily No Start Date Active atenolol 25 mg Tab RxNorm: 755663 1 Tablet(s) PO BID No Start Date 10/03/2011 Inactive niacin ER 500 mg Cap RxNorm: 387208 1 Capsule(s) PO daily No Start Date 06/08/2012 Inactive gemfibrozil 600 mg t ablet RxNorm: 741558 1 Tablet(s) PO BID No Start Date 06/07/2012 Inactive Vitamin C 500 mg Tab RxNorm: 203522 1 Tablet(s) PO daily No Start Date 07/21/2016 Inactive Zithromax Z-Jeff 250 mg tablet RxNorm: 929894 1 Tablet(s) PO UD No Start Date 11/18/2016 Inactive z pack as directed doxazosin 1 mg tablet RxNorm: 466159 1 Tablet(s) PO BID No Start Date 12/01/2016 Inactive vitamin E (dl, aceta te) 400 unit Cap RxNorm: 995686 1 Capsule(s) PO daily No Start Date 07/21/2016 Inactive famotidine 40 mg tablet RxNorm: 497130 1 Tablet(s) PO QAM No Start Date 08/01/2016 Inactive Phenergan VC-Codeine 6.25 mg-5 mg-10 mg/5 mL syrup RxNorm: 121411 5 Milliliter(s) PO Q6 as needed No Start Date 12/31/2018 Inactive hydrochlorothiazide 25 mg Tab RxNorm: 478064 1/2 Tablet(s) PO BID No Start Date 09/12/2011 Inactive Tessalon Perles 100 mg capsule RxNorm: 652136 1 -2 Capsule(s) PO TI D as needed cough No Start Date 11/03/2016 Inactive aspirin 81 mg Tab, D elayed Release RxNorm: 459887 1 Tablet(s) PO every other day No Start Date 05/18/2016 Inactive Cinnamon 1000 mg RxNorm: 2 PO daily No Start Date 05/18/2016 Inactive clonidine HCl 0.1 mg tablet RxNorm: 343490 1 Tablet(s) PO QHS an d 1 Tablet as needed No Start Date 07/21/2016 Inactive [place] 3 Cap RxNorm: 1 Capsule(s) PO BID No Start Date 12/31/2018 Inactive niacin 500 mg tablet RxNorm: 131895 1 Tablet(s) PO QHS No Start Date 01/01/2015 Inactive multivitamin Tab RxNorm: 1 Tablet(s) PO daily No Start Date 07/21/2016 Inactive methotrexate sodium 2.5 mg Tab RxNorm: 796252 Tablet(s) PO No Start Date 11/15/2011 Inactive 3 on tuesday3 on T-Bio RxNorm: 1 PO daily No Start Date 05/18/2016 Inactive Vitamin D 2,000 unit Cap RxNorm: 1 Capsule(s) PO daily No Start Date 07/21/2016 Inactive hydrochlorothiazide 12.5 mg tablet RxNorm: 919303 1 Tablet(s) PO daily No Start Date 10/27/2017 Inactive Medication Administered Medication Codes Instruc tions Start Date Status Kenalog 40 mg/mL suspension for injection RxNorm: 9825966 Milliliter 01/01/2019 No longer Active Kenalog 40 mg/mL suspension for injection RxNorm: 5033274 1Milliliter 08/31/2018 N o longer Active Kenalog 40 mg/mL suspension for injection RxNorm: 1765709 Milliliter 11/05/2016 No longer Active Kenalog 40 mg/mL suspension for injection RxNorm: 9033349 1Milliliter 09/16/2014 N o longer Active ketorolac 60 mg/2 mL intramuscular solution RxNorm: 450562 2Milliliter 03/20/2014 N o longer Active Influenza Virus Vaccine 0.5 mL RxNorm: 07/13/2011 No longer Active Pneumovax 23 25 mcg/0.5 mL Injection RxNorm: 454960 Milliliter 07/13/2011 No longer Active Immunizations Vaccine [...] 02/03/2012 VITAMIN DEFICIENCY ICD-9: 269.2 11/04/2011 DIETARY SURVEIL/TRADE SHOW COORDINATOR ICD-9: V65.3 07/13/2011 Postprandial bloating ICD-9: 787.3 [...] 30.6 pg 03/27/2019 Cbc With Differential Ord2 [place]% 8.1 % 03/27/2019 Cbc With Differential Ord2 [...] 2.42 K/ul 03/27/2019 Cbc With Differential Ord2 [place] ABS# 0.8 K/ul 03/27/2019 Cbc With Differential Ord2 Eos ABS# 0.1 K/ul 03/27/2019 Cbc With Differential Ord2 Baso ABS# 0.1 K/ul 03/27/2019 Comp Metabolic Rkt619 NA 141 mEq/L 03/27/2019 Comp Metabolic Que630 K 4.0 mEq/L 03/27/2019 Comp Metabolic Zbs886 CL 105 mEq/L 03/27/2019 Comp Metabolic Jxf553 CO2 25.0 mEq/L 03/27/2019 Comp Metabolic Ant908 AN ION GAP 15 03/27/2019 Comp Metabolic Sqr197 GL UCOSE 106 mg/dL 03/27/2019 Comp Metabolic Umw907 Cr eat 0.7 mg/dL 03/27/2019 Comp Metabolic Twy275 eG FR 87 ml/min/1.73m2 03/27 Comp Metabolic Jyc840 BUN 15 mg/dL 03/27/2019 Comp Metabolic Wwj158 B/ C Ratio 21.4 Ratio 03/27/2019 Comp Metabolic Nyg567 CA LCIUM 9.8 mg/dL 03/27/2019 Comp Metabolic Wxm539 AL K PHOS 60 U/L 03/27/2019 Comp Metabolic Ghr614 T(SGOT) 21 U/L 03/27/2019 Comp Metabolic Kyo562 AL T(SGPT) 23 U/L 03/27/2019 Comp Metabolic Cpx183 BI LI T 0.7 mg/dL 03/27/2019 Comp Metabolic Krj886 AL BUMIN 4.1 g/dL 03/27/2019 Comp Metabolic Hks556 TP RO 6.3 g/dL 03/27/2019 Comp Metabolic Fgh228 GL OB 2.3 g/dL 03/27/2019 Comp Metabolic Sqx984 A/ G Ratio 1.8 Ratio 03/27/2019 Comp Metabolic Jzl213 Os mo 283 mOsmo 03/27/2019 Tsh Ord6 TSH (3rd IS) 1.87 uIU/mL 03/27/2019 Vitamin D 25 Oh Iyx2511 VITAMIN D, 25 HYDROXY 27.62 ng/mL 03/27/2019 Lipid Ord30 CHOL 308 mg/dL 03/27/2019 Lipid Ord30 HDL 46.0 mg/dl 03/27/2019 Lipid Ord30 TRIG 336 mg/dL 03/27/2019 Lipid Ord30 LDL 195 mg/dL 03/27/2019 Lipid Ord30 C/HDL 6.7 Ratio 03/27/2019 Potassium Ord64 K 3.8 mEq/L 12/06/2016 Comp Metabolic Gkl400 NA 134 mEq/L 12/03/2016 Comp Metabolic Xci729 K Specimen 3+ Hemolyzed mEq/L 12/04/19 17 Comp Metabolic Jim607 CL 106 mEq/L 12/03/2016 Comp Metabolic Lwx958 CO2 20.0 mEq/L 12/03/2016 Comp Metabolic Qxq527 AN ION GAP 16 12/03/2016 Comp Metabolic Xvr213 GL UCOSE 93 mg/dL 12/03/2016 Comp Metabolic Xzr635 Cr eat 0.8 mg/dL 12/03/2016 Comp Metabolic Jtp004 eG FR 73 ml/min/1.73m2 12/03 Comp Metabolic Bda530 BUN 14 mg/dL 12/03/2016 Comp Metabolic Grf548 B/ C Ratio 17.1 Ratio 12/03/2016 Comp Metabolic Zaw979 CA LCIUM 9.3 mg/dL 12/03/2016 Comp Metabolic Sdk356 AL K PHOS 63 U/L 12/03/2016 Comp Metabolic Ikj735 T(SGOT) 69 U/L 12/03/2016 Comp Metabolic Bsh676 AL T(SGPT) 33 U/L 12/03/2016 Comp Metabolic Zui561 BI LI T 1.0 mg/dL 12/03/2016 Comp Metabolic Qpj920 AL BUMIN 4.3 g/dL 12/03/2016 Comp Metabolic Fnf291 TP RO 6.7 g/dL 12/03/2016 Comp Metabolic Pwa944 GL OB 2.4 g/dL 12/03/2016 Comp Metabolic Xtu818 A/ G Ratio 1.7 Ratio 12/03/2016 Comp Metabolic Gkp090 Os mo 268 mOsmo 12/03/2016 Comp Metabolic Krw965 NA 138 mEq/L 12/18/2015 Comp Metabolic Zga624 K 4.1 mEq/L 12/18/2015 Comp Metabolic Gqb771 CL 104 mEq/L 12/18/2015 Comp Metabolic Amb633 CO2 22.0 mEq/L 12/18/2015 Comp Metabolic Cgi654 AN ION GAP 16 12/18/2015 Comp Metabolic Nyb749 GL UCOSE 89 mg/dL 12/18/2015 Comp Metabolic Xcl723 Cr eat 0.6 mg/dL 12/18/2015 Comp Metabolic Oku007 eG FR 99 ml/min/1.73m2 12/17 Comp Metabolic Eqf579 BUN 15 mg/dL 12/18/2015 Comp Metabolic Zhm751 B/ C Ratio 23.8 Ratio 12/18/2015 Comp Metabolic Uxk663 CA LCIUM 10.4 mg/dL 12/18/2015 Comp Metabolic Cvg126 AL K PHOS 77 U/L 12/18/2015 Comp Metabolic Exm363 T(SGOT) 19 U/L 12/18/2015 Comp Metabolic Vhi818 AL T(SGPT) 17 U/L 12/18/2015 Comp Metabolic Pwd615 BI LI T 0.8 mg/dL 12/18/2015 Comp Metabolic Grf943 AL BUMIN 4.3 g/dL 12/18/2015 Comp Metabolic Jow533 TP RO 6.7 g/dL 12/18/2015 Comp Metabolic Ptc489 GL OB 2.4 g/dL 12/18/2015 Comp Metabolic Nds292 A/ G Ratio 1.7 Ratio 12/18/2015 Comp Metabolic Fjc232 Os mo 276 mOsmo 12/18/2015 Cbc With [...] 29.5 pg 12/18/2015 Cbc With Differential Ord2 [place]% 9.4 % 12/18/2015 Cbc With Differential Ord2 [...] 2.57 K/ul 12/18/2015 Cbc With Differential Ord2 [place] ABS# 0.8 K/ul 12/18/2015 Cbc With Differential Ord2 Eos ABS# 0.1 K/ul 12/18/2015 Cbc With Differential Ord2 Baso ABS# 0.0 K/ul 12/18/2015 Cbc With Differential Ord2 New Analyzer Notice Please note new ref ranges s tarting 10-15-2015 due to implemntation of new five part differential hematolgy analyzer. 12/18/2015 Total T3 Ord42 TT3 1.0 ng/ml 07/10/2015 Free T4 Mqb091 FREE T4 0.90 ng/dL 07/09/2015 Free T3 Zhw064 Free T3 2.92 pg/ml 07/09/2015 Tsh Ord6 hTSH II 1.18 uIU/mL 07/09/2015 URINALYSIS NONAUTO W/O SCOPE 61237 Specific [place] 1.005 DateTime(Free Text in Aprima) URINALYSIS NONAUTO W/O SCOPE 73104 PH 6 DateTime(Free Text in Aprima) URINALYSIS NONAUTO W/O SCOPE 67784 GLUCOSE neg DateTime(Free Dano t in Aprima) URINALYSIS NONAUTO W/O SCOPE 48213 Protein neg DateTime(Free Dano t in Aprima) URINALYSIS NONAUTO W/O SCOPE 92181 Blood neg DateTime(Free Dano t in Aprima) URINALYSIS NONAUTO W/O SCOPE 21545 Bilirubin neg DateTime(Free Dano t in Aprima) URINALYSIS NONAUTO W/O SCOPE 86797 Ketones neg DateTime(Free Dano t in Aprima) URINALYSIS NONAUTO W/O SCOPE 31894 Urobilinogen neg DateTime(Free Text in Aprima) URINALYSIS NONAUTO W/O SCOPE 25833 Nitrite neg DateTime(Free Dano t in ) URINALYSIS NONAUTO W/O SCOPE 46533 Leukocytes neg DateTime(Free Text in ) Review [...] developed 03/15/2019 None Full Exam - General 1995 Constitutional general appearance Overall: in no acute [...] tenderness 05/22/2018 None Full Exam - General 1994 Constitutional general appearance Overall: well developed 11/18/2017 [...] exam 09/17/2013 None Full Exam - General 1995 Ears/Nose/Throat internal nose Drainage: clear 09/17/2013 None Full Exam - General 1994 Ears/Nose/Throat internal nose Nasal cavity: a normal exam 09/17/2013 None Full Exam - General 1995 Ears/Nose/Throat internal nose Nasal cavity: mucosal exudate 09/17/2013 None Full Exam - General 1995 Ears/Nose/Throat oral cavity/pharynx/larynx Overall: oral mucosa clear 09/17/2013 None Full Exam - General 1995 Ears/Nose/Throat oral cavity/pharynx/larynx Overall: oropharyngeal mucosa clear 09/17/2013 None Full Exam - General 1995 Ears/Nose/Throat oral cavity/pharynx/larynx Overall: no masses 09/17/2013 [...] exam 05/21/2013 None Full Exam - General 1995 Ears/Nose/Throat internal nose Nasal cavity: mucosal exudate [...] masses 06/08/2012 None Full Exam - General 1995 Ears/Nose/Throat oral cavity/pharynx/larynx Overall: oral mucosa clear [...] lips 02/03/2012 None Full Exam - General 1994 Ears/Nose/Throat lips/teeth/gingiva Overall: normal dentition 02/03/2012 None [...] swelling 02/03/2012 None Full Exam - General 1995 Neck inspection of neck Overall: normal tracheal position 02/03/2012 None Full Exam - General 1994 Respiratory auscultation Overall: breath sounds clear bilaterally 02/03/2012 None Full Exam - General 1994 Respiratory respiratory effort/rhythm Overall: no retractions 02/03/2012 None Full Exam - General 1995 Respiratory respiratory effort/rhythm Overall: normal rate 02/03/2012 [...] Formatting Model/CDA Sections, Assigned to/Kimberley Fagan CPT-4: [id number] 07/06/2018 ADMIN INFLUENZA VIRU S VAC CPT-4: G0008 07/05/2017 FLU VACC PRSV FREE I NC ANTIG CPT-4: 77181 07/05/2017 THER/PROPH/DIAG INJ SC/IM CPT-4: 16904 11/05/2016 TRIAMCINOLONE ACET I [place] NOS CPT-4: J3301 11/05/2016 TRIAMCINOLONE ACET I [place] NOS CPT-4: J3301 09/16/2014 DRAIN/INJECT JOINT/B URSA CPT-4: 15826 09/16/2014 KETOROLAC TROMETHAMI NE INJ CPT-4: J1885 03/20/2014 URINALYSIS NONAUTO W /O SCOPE CPT-4: 46574 12/10/2013 PRESCRIP TRANSMIT A ERX SY CPT-4: G8553 09/17/2013 PRESCRIP TRANSMIT A ERX SY CPT-4: G8553 06/08/2012 TRIAMCINOLONE ACET I [place] NOS CPT-4: J3301 03/16/2012 INJ TRIGGER POINT 1/ 2 MUSCL CPT-4: 16000 03/16/2012 PRESCRIP TRANSMIT A ERX SY CPT-4: G8553 03/16/2012 ADMIN INFLUENZA VIRU S VAC CPT-4: G0008 07/13/2011 FLULAVAL VACC, 3 YRS & >, IM CPT-4: Q2036 07/13/2011 ADMIN PNEUMOCOCCAL V ACCINE SNOMED CT: [id number] CPT-4: G0009 07/13/2011 Pneumococcal Polysac charide Vaccine, 23-Valent, Ad CPT-4: 71125 07/13/2011 Vital Signs Date Vital 03/20/2019 Blood Pressure 1: 134/84 Code: 8480-6 BMI: 36.7 Code: 47145-1 Heart Rate 1: 63 bpm Height: 5'3" SpO2: 97% Weight: 207 lbs 03/15/2019 Blood Pressure 1: 138/76 Code: 8480-6 BMI: 36.7 Code: 60868-5 Heart Rate 1: 64 bpm Height: 5'3" SpO2: 98% Weight: 207 lbs 01/08/2019 Blood Pressure 1: 128/70 Code: 8480-6 Heart Rate 1: 67 bpm SpO2: 97% 01/01/2019 Blood Pressure 1: 138/80 Code: 8480-6 BMI: 36.3 Code: 21411-7 Heart Rate 1: 64 bpm Height: 5'3" SpO2: 98% Weight: 205 lbs 12/18/2018 Blood Pressure 1: 120/62 Code: 8480-6 BMI: 36.0 Code: 33275-9 Heart Rate 1: 67 bpm Height: 5'3" SpO2: 97% Weight: 203 lbs 09/18/2018 Blood Pressure 1: 126/70 Code: 8480-6 BMI: 36.3 Code: 31683-0 Heart Rate 1: 58 bpm Height: 5'3" SpO2: 98% Weight: 205 lbs 08/31/2018 Blood Pressure 1: 148/76 Code: 8480-6 BMI: 37.0 Code: 70255-2 Heart Rate 1: 60 bpm Height: 5'3" SpO2: 98% Weight: 209 lbs 08/14/2018 Blood Pressure 1: 140/80 Code: 8480-6 BMI: 37.2 Code: 44945-9 Heart Rate 1: 76 bpm Height: 5'3" SpO2: 96% Weight: 210 lbs 05/22/2018 Blood Pressure 1: 150/62 Code: 8480-6 BMI: 36.7 Code: 13108-5 Heart Rate 1: 74 bpm Height: 5'3" SpO2: 98% Weight: 207 lbs 11/18/2017 Blood Pressure 1: 122/66 Code: 8480-6 BMI: 35.8 Code: 21056-2 Heart Rate 1: 59 bpm Height: 5'3" SpO2: 97% Weight: 202 lbs 08/03/2017 Blood Pressure 1: 122/60 Code: 8480-6 BMI: 36.0 Code: 31455-1 Heart Rate 1: 60 bpm Height: 5'3" SpO2: 97% Weight: 203 lbs 07/05/2017 Blood Pressure 1: 140/76 Code: 8480-6 BMI: 36.0 Code: 83589-3 Heart Rate 1: 58 bpm Height: 5'3" SpO2: 98% Weight: 203 lbs 12/02/2016 Blood Pressure 1: 122/70 Code: 8480-6 BMI: 34.4 Code: 83594-1 Heart Rate 1: 66 bpm Height: 5'3" SpO2: 99% Temperature: 36.4 (C ) / 97.5 (F) Weight: 194 lbs 11/22/2016 Blood Pressure 1: 102/60 Code: 8480-6 BMI: 34.2 Code: 02952-4 Heart Rate 1: 110 bpm Height: 5'3" SpO2: 98% Temperature: 36.7 (C ) / 98.0 (F) Weight: 193 lbs 11/05/2016 Blood Pressure 1: 140/62 Code: 8480-6 BMI: 36.1 Code: 65313-1 Heart Rate 1: 102 bpm Height: 5'3" SpO2: 97% Temperature: 37.1 (C ) / 98.7 (F) Weight: 204 lbs 07/22/2016 Blood Pressure 1: 158/80 Code: 8480-6 Blood Pressure 1: 160/76 Code: 8480-6 BMI: 36.8 Code: 10596-2 Heart Rate 1: 56 bpm Height: 5'3" SpO2: 98% Weight: 208 lbs 05/19/2016 Blood Pressure 1: 150/78 Code: 8480-6 Blood Pressure 1: 122/69 Code: 8480-6 BMI: 37.0 Code: 35701-3 Heart Rate 1: 61 bpm Height: 5'3" SpO2: 98% Weight: 209 lbs 02/13/2016 Blood Pressure 1: 140/76 Code: 8480-6 BMI: 36.8 Code: 09024-2 Heart Rate 1: 64 bpm Height: 5'3" SpO2: 97% Weight: 208 lbs 01/13/2016 Blood Pressure 1: 170/70 Code: 8480-6 BMI: 36.8 Code: 78883-6 Heart Rate 1: 65 bpm Height: 5'3" SpO2: 95% Weight: 208 lbs 01/02/2016 Blood Pressure 1: 150/88 Code: 8480-6 BMI: 36.8 Code: 67217-0 Heart Rate 1: 61 bpm Height: 5'3" SpO2: 98% Weight: 208 lbs 12/18/2015 Blood Pressure 1: 148/90 Code: 8480-6 BMI: 37.6 Code: 57212-6 Heart Rate 1: 64 bpm Height: 5'3" SpO2: 96% Weight: 212 lbs 09/08/2015 Blood Pressure 1: 130/88 Code: 8480-6 BMI: 37.0 Code: 10650-3 Heart Rate 1: 62 bpm Height: 5'3" SpO2: 97% Weight: 209 lbs 07/09/2015 Blood Pressure 1: 142/82 Code: 8480-6 BMI: 36.4 Code: 87463-2 Heart Rate 1: 66 bpm Height: 5'3" SpO2: 97% Weight: 205 lbs 5 oz 01/16/2015 Blood Pressure 1: 122/80 Code: 8480-6 BMI: 35.6 Code: 21906-0 Heart Rate 1: 67 bpm Height: 5'3" SpO2: 98% Weight: 201 lbs 01/03/2015 Blood Pressure 1: 122/70 Code: 8480-6 BMI: 35.6 Code: 07913-6 Heart Rate 1: 61 bpm Height: 5'3" Respiratory Rate: 16 bpm SpO2: 98% Weight: 201 lbs 09/16/2014 Blood Pressure 1: 132/78 Code: 8480-6 BMI: 34.9 Code: 61403-9 Heart Rate 1: 56 bpm Height: 5'3" Weight: 197 lbs 08/15/2014 Blood Pressure 1: 152/80 Code: 8480-6 Blood Pressure 2: 160/82 Code: 8480-6 BMI: 34.0 Code: 80376-0 Heart Rate 1: 75 bpm Height: 5'3" Weight: 192 lbs 06/12/2014 Blood Pressure 1: 136/82 Code: 8480-6 BMI: 34.9 Code: 19864-9 Heart Rate 1: 58 bpm Height: 5'3" SpO2: 96% Weight: 197 lbs 03/20/2014 Blood Pressure 1: 140/72 Code: 8480-6 BMI: 34.9 Code: 31825-4 Heart Rate 1: 60 bpm Height: 5'3" Weight: 197 lbs 12/10/2013 Blood Pressure 1: 132/78 Code: 8480-6 BMI: 35.1 Code: 66970-2 Heart Rate 1: 68 bpm Height: 5'3" Weight: 198 lbs 09/17/2013 Blood Pressure 1: 128/78 Code: 8480-6 BMI: 34.9 Code: 48553-8 Heart Rate 1: 68 bpm Height: 5'3" Weight: 197 lbs 05/21/2013 Blood Pressure 1: 128/82 Code: 8480-6 BMI: 35.6 Code: 96070-1 Heart Rate 1: 80 bpm Height: 5'3" Weight: 201 lbs 01/17/2013 Blood Pressure 1: 138/72 Code: 8480-6 BMI: 36.7 Code: 20101-9 Heart Rate 1: 60 bpm Height: 5'3" [...] 1: 140/78 Code: 8480-6 BMI: 40.0 Code: 79182-4 Heart Rate 1: 64 bpm Height: 5'3" Respiratory Rate: 16 bpm Weight: 226 lbs 11/04/2011 Blood Pressure 1: 136/76 Code: 8480-6 Heart Rate 1: 68 bpm Respiratory Rate: 16 bpm Weight: 226 lbs 07/13/2011 Blood Pressure 1: 142/80 Code: 8480-6 BMI: 40.0 Code: 33623-2 Heart Rate 1: 60 bpm Height: 5'4" [...] Quality constant 05/22/2018 None hypertension Quality naomi janine hypertension 11/18/2017 None hypertension Onset and Resolution [...] christine hose bilateral ly hypertension Quality naomi janine hypertension 07/05/2017 None hypertension Pertinent Findings decreased [...] ago 03/16/2012 None shoulder pain Quality ac [place] 03/16/2012 None shoulder pain Quality sh kate [...] Encounters Encounter Performer Loca tion Codes Date EST. PATIENT, LEVEL II Diagnosis: Pain in right knee[ICD10: M25.561] Diagnosis: Unspecified fracture of shaft of right fibula, initial encounter for closed fracture[ICD10: S82.401A] [facility] CPT-4: 97715 03/20/2019 40597 EST. PATIENT, LEVEL III Diagnosis: Asymptomatic varicose veins of right lower extremity[ICD10: I83.91] [facility] CPT-4: 78178 03/15/2019 ([id number]) 64763 EST. P ATIENT, LEVEL II Diagnosis: Otalgia, right ear[ICD10: H92.01] Diagnosis: Other specified disorders of teeth and supporting structures[ICD10: K08.89] [facility] CPT-4: 37686 01/08/2019 ([id number]) 53123 EST. P ATIENT, LEVEL III Diagnosis: Otalgia, right ear[ICD10: H92.01] Юлия Manuel MD, [facility] CPT- 4: 04324 01/01/2019 ([id number]) 93475 EST. 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 P ATIENT, LEVEL III Diagnosis: Nasal congestion[ICD10: R09.81] Diagnosis: Other allergic rhinitis[ICD10: J30.89] Юлия Manuel MD, [facility] CPT-4: 34401 08/31/2018 ([id number]) 92308 EST. P ATIENT, LEVEL III Diagnosis: Acute recurrent maxillary sinusitis[ICD10: J01.01] Юлия Manuel MD, [facility] CPT-4: 73193 08/14/2018 23530 EST. PATIENT, LEVEL III Diagnosis: Pain in right shoulder[ICD10: M25.511] Diagnosis: Pain in right arm[ICD10: M79.601] Willow Manuel MD, [facility] CPT-4: 12563 05/22/2018 ([id number]) 62957 EST. 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 PATIENT, LEVEL III Diagnosis: Other specified intestinal infections[ICD10: A08.8] Willow Manuel MD, [facility] CPT-4: 73120 08/03/2017 ([id number]) 18604 EST. 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 P ATIENT, LEVEL III Diagnosis: Essential (primary) hypertension[ICD10: I10] Юлия Manuel MD, [facility] CPT-4: 47595 12/02/2016 ([id number]) 33577 EST. P ATIENT, LEVEL III Diagnosis: Essential (primary) hypertension[ICD10: I10] Diagnosis: Allergic rhinitis due to pollen[ICD10: J30.1] Giuliana Manuel MD, [facility] CPT-4: 08108 11/22/2016 12027 EST. PATIENT, LEVEL III Diagnosis: Acute laryngopharyngitis[ICD10: J06.0] Diagnosis: Influenza due to unidentified influenza virus with other respiratory manifestations[ICD10: J11.1] Willow Manuel MD, [facility] CPT-4: 59485 11/05/2016 ([id number]) 64193 EST. P ATIENT, LEVEL III Diagnosis: Gastro-esophageal reflux disease without esophagitis[ICD10: K21.9] Diagnosis: Essential (primary) hypertension[ICD10: I10] Giuliana Manuel [facility] CPT-4: 21466 07/22/2016 ([id number]) 02667 EST. P ATIENT, LEVEL IV Diagnosis: Essential (primary) hypertension[ICD10: I10] Diagnosis: Abdominal distension (gaseous)[ICD10: R14.0] Giuliana Manuel [facility] CPT-4: 04651 05/19/2016 ([id number]) 37971 EST. P ATIENT, LEVEL III Diagnosis: Essential (primary) hypertension[ICD10: I10] Юлия Manuel MD, [facility] CPT-4: 51021 02/13/2016 ([id number]) 22935 EST. P ATIENT, LEVEL III Diagnosis: Essential (primary) hypertension[ICD10: I10] Юлия Manuel MD, [facility] CPT-4: 69494 01/13/2016 21210 EST. PATIENT, LEVEL IV Diagnosis: Essential (primary) hypertension[ICD10: I10] Diagnosis: Body mass index (BMI) 36.0-36.9, adult[ICD10: Z68.36] Willow Manuel MD, [facility] CPT-4: 19907 01/02/2016 ([id number]) 74773 EST. P ATIENT, LEVEL III Diagnosis: Essential (primary) hypertension[ICD10: I10] Юлия Manuel MD, [facility] CPT-4: 12640 12/18/2015 ([id number]) 58608 EST. P ATIENT, LEVEL IV Diagnosis: Essential (primary) hypertension[ICD10: I10] Diagnosis: Benign paroxysmal vertigo, bilateral[ICD10: H81.13] Diagnosis: Radiculopathy, cervical region[ICD10: M54.12] Giuliana Manuel MD, [facility] CPT-4: 68513 09/08/2015 ([id number]) 84437 EST. P ATIENT, LEVEL IV Diagnosis: Other specified nonscarring hair loss[ICD10: L65.8] Diagnosis: Myositis, unspecified[ICD10: M60.9] Diagnosis: Psoriasis, unspecified[ICD10: L40.9] Diagnosis: Essential (primary) hypertension[ICD10: I10] Giuliana Manuel [facility] CPT-4: 53851 07/09/2015 ([id number]) 91181 EST. P ATIENT, LEVEL III Diagnosis: ESSENTIAL HYPERTENSION[ICD9: 401.9] Giuliana Manuel MD, [facility] CPT- 4: 33839 01/16/2015 ([id number]) 64477 EST. P ATIENT, LEVEL III Diagnosis: Shoulder pain[ICD9: 719.41] Diagnosis: ESSENTIAL HYPERTENSION[ICD9: 401.9] Diagnosis: PALPITATIONS[ICD9: 785.1] Giuliana Manuel MD, [facility] CPT-4: 32161 01/03/2015 ([id number]) 14526 EST. P ATIENT, LEVEL III Diagnosis: Sacroiliitis[ICD9: 720.2] Diagnosis: Back pain[ICD9: 724.5] Diagnosis: ESSENTIAL HYPERTENSION[ICD9: 401.9] Giuliana Manuel MD, [facility] CPT- 4: 39566 09/16/2014 ([id number]) 76438 EST. P ATIENT, LEVEL IV Diagnosis: ESSENTIAL HYPERTENSION[ICD9: 401.9] Diagnosis: Arrhythmia[ICD9: 427.9] Diagnosis: Nausea[ICD9: 787.02] Giuliana Manuel MD [facility] CPT-4: 37358 08/15/2014 ([id number]) 65344 EST. P ATIENT, LEVEL IV Diagnosis: ESSENTIAL HYPERTENSION[ICD9: 401.9] Diagnosis: Back pain[ICD9: 724.5] Diagnosis: Allergic reaction[ICD9: 995.3] Giuliana Manuel MD, [facility] CPT-4: 59549 06/12/2014 ([id number]) 98027 EST. P ATIENT, LEVEL III Diagnosis: Thoracic back pain[ICD9: 724.1] Diagnosis: MYALGIA AND MYOSITIS[ICD9: 729.1] Giuliana Manuel MD [facility] CPT-4: 52291 03/20/2014 ([id number]) 98001 EST. P ATIENT, LEVEL IV Diagnosis: HYPERLIPIDEMIA[ICD9: 272.4] Diagnosis: ESSENTIAL HYPERTENSION[SNOMED: 04566426] Diagnosis: ABDOM PAIN NOS SITE[ICD9: 789.00] Giuliana Manuel MD, [facility] CPT-4: 14430 12/10/2013 ([id number]) 42854 EST. P ATIENT, LEVEL IV Diagnosis: ESSENTIAL HYPERTENSION[SNOMED: 07512799] Diagnosis: HYPERLIPIDEMIA[ICD9: 272.4] Giuliana Manuel MD, [facility] CPT-4: 57471 09/17/2013 ([id number]) 84919 EST. P ATIENT, LEVEL IV Diagnosis: ESSENTIAL HYPERTENSION[SNOMED: 89672997] Diagnosis: OBESITY[ICD9: 278.00] Diagnosis: Back pain[ICD9: 724.5] Giuliana Manuel MD, [facility] CPT-4: 32771 05/21/2013 ([id number]) 47179 EST. P ATIENT, LEVEL IV Diagnosis: ESSENTIAL HYPERTENSION[SNOMED: 39728920] Diagnosis: HYPERLIPIDEMIA[ICD9: 272.4] Diagnosis: Abdominal pain[ICD9: 789.00] Diagnosis: BENIGN PAROXYSMAL VERTIGO[ICD9: 386.11] Giuliana Manuel MD, [facility] CPT-4: 00187 01/17/2013 ([id number]) 86615 EST. P ATIENT, LEVEL IV Diagnosis: ESSENTIAL HYPERTENSION[SNOMED: 27497398] Diagnosis: BENIGN PAROXYSMAL VERTIGO[ICD9: 386.11] Diagnosis: Hair loss[ICD9: 704.00] Diagnosis: Vitamin d deficiency[ICD9: 268.9] Diagnosis: Bleeding from the nose[ICD9: 784.7] Giuliana Manuel MD, [facility] CPT- 4: 34700 09/20/2012 34873 EST. PATIENT, LEVEL IV Diagnosis: BPPV (benign paroxysmal positional vertigo)[ICD9: 386.11] Diagnosis: HYPERLIPIDEMIA[ICD9: 272.4] Diagnosis: ESSENTIAL HYPERTENSION[SNOMED: 39629378] Giuliana Manuel MD, [facility] CPT-4: 52020 06/08/2012 ([id number]) 18568 EST. P ATIENT, LEVEL IV Diagnosis: BPPV (benign paroxysmal positional vertigo)[ICD9: 386.11] Diagnosis: Diverticulitis[ICD9: 562.11] Diagnosis: Abdominal pain[ICD9: 789.00] Giuliana Manuel MD, [facility] CPT-4: 35381 04/10/2012 ([id number]) 86604 EST. P ATIENT, LEVEL III Diagnosis: Neck pain[ICD9: 723.1] Diagnosis: Acute upper back pain[ICD9: 724.1] Giuliana Manuel MD, [facility] CPT- 4: 50730 03/16/2012 ([id number]) 93865 EST. P ATIENT, LEVEL IV Diagnosis: HYPERLIPIDEMIA[ICD9: 272.4] Diagnosis: ESSENTIAL HYPERTENSION[SNOMED: 45181784] Diagnosis: Constipation - functional[ICD9: 564.09] Giuliana Manuel MD, [facility] CPT-4: 23978 02/03/2012 ([id number]) 25241 EST. P ATIENT, LEVEL IV Diagnosis: HYPERLIPIDEMIA[ICD9: 272.4] Diagnosis: VITAMIN DEFICIENCY[ICD9: 269.2] Diagnosis: ESSENTIAL HYPERTENSION[SNOMED: 73513226] Giuliana Manuel MD, [facility] CPT-4: 88007 11/04/2011 26436 EST. 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 03/15/2019 Appointment: Юлия Rojas WPtel: [address] [place], [place] [phone] (15 min) Moderate 03/15/2019 Patient Education: Patient Medication Summary Completed 03/15/2019 Visit Plan: Right earache -suspect trigeminal neuralgia- recommend patient have a dental eval to also check tooth that is bothering her on the right upper jaw -discussed treating trigeminal neuralgia if tooth is okay but instructed her to call if symptoms worsen -patient verbalized understanding of plan. 01/08/2019 Appointment: Юлия Rojas WPtel: [facility]0 [phone] (30 min) Complex 01/08/2019 Patient Education: Patient Medication Summary Completed 01/08/2019 Visit Plan: Right ear pain -concern for trigeminal neuralgia -she does have some sinus tenderness -will give kenalog injection today - continue anti histamine daily -monitor symptoms and call if persistent, worsen o r new symptoms develop. Patient verbalized understanding of plan. 01/01/2019 Appointment: Юлия Rojas WPtel: [phone] [phone] (30 min) Complex 01/01/2019 Patient Education: [...] not improving. 12/18/2018 Appointment: Giuliana Manuel WPtel: [facility]1 [facility] (15 min) Moderate 12/18/2018 Patient Education: Patient Medication Summary Completed 12/18/2018 Visit Plan: Hypertension - well con trolled [...] low back. 09/18/2018 Appointment: Giuliana Manuel WPtel: [phone] [facility] (15 min) Moderate 09/18/2018 Patient Education: Patient [...] allergy spray. 08/31/2018 Appointment: Юлия Rojas WPtel: [phone] [phone] (15 min) Moderate 08/31/2018 Patient Education: Patient [...] not improve. 05/22/2018 Appointment: Willow Garcia WPtel: [address] [facility] (15 min) Moderate 05/22/2018 Patient Education: Patient [...] not improving. 11/18/2017 Appointment: Giuliana Manuel WPtel: [address] [facility] (15 min) Moderate 11/18/2017 Patient Education: Patient Medication Summary Completed 11/18/2017 Appointment: Giuliana Manuel WPtel: [phone] [facility] (15 min) Moderate 11/07/2017 Visit Plan: Diarrhea [...] not improved. 08/03/2017 Appointment: Willow Garcia WPtel: [facility]7 [facility] (30 min) Complex 08/03/2017 Patient Education: [...] D daily. 07/05/2017 Appointment: Giuliana Manuel WPtel: [phone] [facility] [place] (15 min) Moderate 07/05/2017 Patient Education: Patient Medication Summary Completed 07/05/2017 Patient Education: Obesity Completed 07/05/2017 Appointment: iGuliana Manuel WPtel: [phone] [facility] [place] (15 min) Moderate 06/27/2017 Appointment: Giuliana Manuel WPtel: [phone] [facility] [place] (15 min) Moderate 06/21/2017 Appointment: Юлия Rojas WPtel: [address] [phone] [place] (30 min) Complex 12/23/2016 Visit Plan: Hypertension - - the sharron amado's medications have been modified as documented [...] RESTART HCTZ 12/02/2016 Appointment: Юлия Rojas WPtel: [phone] [phone] [place] (30 min) Complex 12/02/2016 Patient Education: [...] 7 days 11/22/2016 Appointment: Giuliana Manuel WPtel: [address] [facility] (15 min) Moderate 11/22/2016 Patient Education: Patient Medication Summary Completed 11/22/2016 Patient Education: Obesity Completed 11/22/2016 Visit Plan: Influenza - pt started on tamiflu - pt to start on anti-inflammatories, tylenol and monitor symptoms. Pt to call if not improving. Pt to alert any close contacts as to illness. 11/05/2016 Appointment: Willow Garcia WPtel: [phone] [facility] (30 min) Complex 11/05/2016 Patient Education: Patient [...] on carafate 07/22/2016 Appointment: Giuliana Manuel WPtel: [phone] [facility] (15 min) Moderate 07/22/2016 Patient Education: Patient Medication Summary Completed 07/22/2016 Patient Education: Obesity Completed 07/22/2016 Care Plan: Referral Order SNOMED-CT : [id number] Pending 07/22/2016 Visit Plan: Hypertension - well [...] Obesity Completed 05/19/2016 Appointment: Giuliana Manuel WPtel: [facility]5 [facility] (15 min) Moderate 05/17/2016 Visit Plan: Hypertension - well con trolled - continue with current medications, continue with no added salt diet. Pt has been encouraged to exercise daily. The pt has been advised to call the office if there are any acute concerns about change in blood pressure readings at home. 02/13/2016 Appointment: Юлия Rojas WPtel: [facility]5 [phone] (30 min) Complex 02/13/2016 Patient Education: Patient [...] Obesity Completed 12/18/2015 [facility]ment: [phone] ([facility]) Moderate 12/08/2015 [facility] [facility] Completed 10/17/2015 Visit Plan: Hypertension - [...] stress test. 09/08/2015 Appointment: Giuliana Manuel WPtel: [facility]5 [facility] (15 min) Moderate 09/08/2015 Patient Education: Patient Medication Summary Completed 09/08/2015 Patient Education: .Cervicalgia Neck Pain Completed 09/08/2015 Care Plan: Referral Order SNOMED-CT : [id number] Ordered 09/08/2015 Visit Plan: Hypertension - uncontro [...] checked today. 07/09/2015 Appointment: Giuliana Manuel WPtel: [address] [place], [place] [phone] (15 min) Moderate 07/09/2015 Patient Education: Patient Medication Summary Completed 07/09/2015 Appointment: Giuliana Manuel WPtel: [address] [place], [place] [phone] (15 min) Moderate 07/07/2015 Appointment: Giuliana Manuel WPtel: [address] [place], [place] [phone] Follow up 03/17/2015 Visit Plan: Hypertension - well con trolled - continue with current medications, continue with no added salt diet. Pt has been encouraged to exercise daily. The pt has been advised to call the office if there are any acute concerns about change in blood pressure readings at home. Palpitations resolved. 01/16/2015 Appointment: Giuliana Manuel WPtel: [facility]5 [facility] Other 01/16/2015 Patient Education: Patient Medication Summary [...] pain symptoms. 01/03/2015 Appointment: Giuliana Manuel WPtel: [facility] Follow up 01/03/2015 Patient Education: Patient Medication [...] Hypertension Completed 09/16/2014 Appointment: Giuliana Manuel WPtel: [phone] [facility] Follow up 09/09/2014 Visit Plan: Hypertension - [...] symptoms worsen. 08/15/2014 Appointment: Giuliana Manuel WPtel: [address] [place], [place] [phone] [facility] 08/15/2014 Patient Education: Patient Medication Summary Completed 08/15/2014 Patient Education: Hypertension Completed 08/15/2014 Care Plan: Referral Order SNOMED-CT : [id number] Ordered 08/15/2014 Appointment: Giuliana Manuel WPtel: [facility]5 [place] [phone] Follow up 06/18/2014 Visit Plan: Back pain - referral to [facility]. Rash - reaction to soy [...] at home. 06/12/2014 Appointment: Giuliana Manuel WPtel: [facility]5 [facility] [facility] 06/12/2014 Patient Education: Patient Medication Summary Completed 06/12/2014 Patient Education: Hypertension Completed 06/12/2014 Care Plan: Referral Order SNOMED-CT : [id number] Ordered 06/12/2014 Visit Plan: Hypertension - well [...] spine xrays. 03/20/2014 Appointment: [phone] [facility] 03/20/2014 Patient Education: Patient Medication [...] was negative for a UTI 12/10/2013 Appointment: Ranchita[place]onia guzmany [facility]Ptel[phone] Follow up 12/10/2013 Patient Education: Patient Medication [...] times weekly. 09/17/2013 Appointment: Giuliana Manuel WPtel: [phone] [facility] Follow up 09/17/2013 Patient Education: Patient Medication [...] muscle rub. 05/21/2013 Appointment: Giuliana Manuel WPtel: [facility]2 [facility] Follow up 05/21/2013 Patient Education: Patient Medication [...] the vertigo. 01/17/2013 Appointment: Giuliana Manuel WPtel: [phone] [facility] Follow up 01/17/2013 Patient Education: Patient Medication [...] if needed. 09/20/2012 Appointment: Giuliana Manuel WPtel: [address] [place] [address] Follow up 09/20/2012 Patient Education: Patient Medication [...] intolerance begin. 06/08/2012 Appointment: Giuliana Manuel WPtel: [address] [place], [place] [phone] Follow up 06/08/2012 Patient Education: Patient Medication [...] or popcorn. 04/10/2012 Appointment: Giuliana Manuel WPtel: [phone] [facility] Other 04/10/2012 Patient Education: Patient Medication Summary [...] by Tuesday. 03/16/2012 Appointment: [facility] [facility] 03/16/2012 Patient Education: Patient Medication Summary [...] this regimen. 02/03/2012 Appointment: Giul[phone] Other 02/03/2012 Patient Education: Patient Medication Summary [...] a week. 11/04/2011 Appointment: Giul[facility] Manuel [facility]el[phone] Follow [facility] 11/04/2011 Patient Education: Patient Medication [...] She will monitor her intake. Allergies - [facility] for [facility] headaches to see ifnallergy medication helps to prevent the headaches flu shot pneumonia shot 07/13/2011 Appointment: Giuliana Manuel WPtel: [address]5 [facility] [place] Other 07/13/2011 Patient Education: Patient Medication Summary Completed 07/13/2011 Patient Education: .Amazing charts Di[employer] tic meal planning guide Completed 07/13/2011 Referral: Jared Lafleur [address] [facility] [place] Referral Appointment Requested Referral: Duarte Catalan Referral Appointment Requested Referral: Dr. Willams WPtel: [id number] [place] Referral Initiated Referral: [facility] WPtel: [id number] [facility] [place] Referral Initiated Instructions Comment . Hypertension - wel l controlled - [...] TSH and consider treatment if needed. . Hypertension - wel l controlled - [...] Use tylenol for break through pain symptoms. increase Atenolol to 1.5 tabs twice daily [...] is to call for acute concerns. . Hypertension - unc ontrolled - the [...] - need to consider a stress test. KENALOG CONTINUE BENADRYL AT BEDTIME . Right ear pain -concern for trigeminal neuralgia -she does have some sinus tenderness -will give kenalog injection today -continue anti histamine daily - monitor symptoms and call if persistent, worsen or new symptoms develop. Patient verbalized understanding of plan. . Neck pain- start p hysical therapy and MRI OF CERVICAL SPINE The pt is to use prn antiinflammatories to manage acute pain. The patient is to call the office if the pain is worsening or does not improve. Diverticulitis - pt started on a liquid diet, and given RX for flagyl and cipro. No seeds, nuts, or popcorn. . Hypertension - unc ontrolled - the [...] is to call for acute concerns. . Trigger Points - I njected trigger [...] call if not better by Tuesday. . Hyperlipidemia - pt has been counseled [...] of vitamin D once a week. . Varicose vein -rig ht lower leg -mildly tender -not inflamed -instructed patient to monitor and call if symptoms worsen, persist or new symptoms develop. Patient verbalized understanding of plan. . Sinusitis - Pt has acute infection - pain in face, maxillary region, Pt informed to use decongestant, RX given to patient, sinus rinses also recommended. Call if symptoms do not show improvement. Back pain - Muscle a ches - [...] then do lumbar and throacic spine xrays. Add a losartan pill in the morning. [...] RTC in 2 weeks for weight check. . Hypertension - wel l controlled - [...] recommended pt to start with muscle rub. Continue with atenol ol and HCTZ, Start [...] to emergency room if symptoms worsen. . Hyperlipidemia - pt has been counseled [...] Urine check was negative for a UTI . Hypertension - we ll controlled - [...] symptoms not improved on this regimen. . Back pain - referr al to [facility]. Rash - reaction to soy [...] in blood pressure readings at home. . Right earache -karl yanez trigeminal neuralgia- recommend patient have a dental eval to also check tooth that is bothering her on the right upper jaw -discussed treating trigeminal neuralgia if tooth is okay but instructed her to call if symptoms worsen -patient verbalized understanding of plan. . Right knee pain -c ontinue rest, ice and anti inflammatories- call if pain does not improve or if any worse Fracture of right fibular shaft-xray shows healing -no change in current treatment -continue rest, anti inflammatories . Hypertension - wel l controlled - [...] not improve or if they worsen. . Hypertension - wel l controlled - continue with current medications, continue with no added salt diet. Pt has been encouraged to exercise daily. The pt has been advised to call the office if there are any acute concerns about change in blood pressure readings at home. Abdominal bloating - recommended gas-ex otc. - cut back on carbonated beverages. . Hypertension - uncontrolled - the patient's [...] chronically. Pt given exercises for the vertigo. . Hypertension - wel l controlled - [...] spray in the nasal steroid allergy spray. STOP CLONIDINE INCREASE DOXAZOSIN TO TWICE DAILY [...]
[2020-01-21] MEDS ORDERED: NS IV 500 ML 500 ML IV ONE (13:53)
--- OUTSIDE RECORDS SUMMARY | 2020-01-21 13:54 | XMS REPORT | CCD ---
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/2015 Marital status Unknown M arried 07/13/[address]: 667939009 Nonsmoker 07/13/[address]: 152718218 Never drinks alcohol 07/13/2011 Allergies, Adverse Reactions, Alerts Substance Reaction Codes Entered Date Inactivated Date Status Soy Unknown 07/13/2011 No Inactive Date Active Cardizem RxNorm: 204312 05/19/2016 No Inactive Date Active Metoprolol Succinate [...] pain ICD-9: 789.00 Active 07/13/2011 Unknown 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 Active 07/13/2011 Unknown OBESITY ICD-9: [...] Abdominal pain ICD-9: 789.00 07/13/2011 Active 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 07/13/2011 Active OBESITY ICD-9: 278.00 07/13/2011 Active Postprandial bloating ICD-9: 787.3 07/13/2011 Active Seasonal allergies ICD- 9: 477.9 07/13/2011 Active VAC STREP PNEUMONIAE -FLU ICD-9: V06.6 07/13/2011 Active Medications Medication Codes Instruc tions Start Date Stop Date Sta tus Fill Instructions doxazosin 1 mg tablet RxNorm: 211134 TAKE 1 TABLET BY MOUTH EVERY DAY AT [facility] 02/27/2019 11/23/2019 Ac tive - Ref: [id number] hydrochlorothiazide 12.5 mg tablet RxNorm: 641458 TAKE 1 TABLET BY MOUT H EVERY DAY 02/27/2019 11/23/2019 Ac tive - Ref: [id number] famotidine 40 mg tablet RxNorm: 857344 TAKE 1 TABLET BY MOUTH EVERY MORNING 02/27/2019 11/23/2019 Ac tive - Ref: [id number] Kenalog 40 mg/mL karl pension for injection RxNorm: 1434888 Milliliter(s) Inj 01/01/2019 01/01/2019 In active losartan 25 mg tablet RxNorm: 438744 1 Tablet(s) PO BID 11/01/2018 10/26/2019 Active losartan 25 mg tablet RxNorm: 920117 1 Tablet(s) PO BID 11/01/2018 10/31/2018 Inactive hydrochlorothiazide 12.5 mg tablet RxNorm: 885882 TAKE 1 TABLET BY MOUT H EVERY DAY 10/02/2018 02/26/2019 In active - First Attempt Ref: [id number] famotidine 40 mg tablet RxNorm: 746600 TAKE 1 TABLET BY MOUTH EVERY MORNING 10/02/2018 02/26/2019 In active - First Attempt Ref: [id number] doxazosin 1 mg tablet RxNorm: 764673 TAKE 1 TABLET BY MOUTH EVERY DAY AT [facility] 10/02/2018 02/26/2019 Inactive - First Attempt Ref: [id number] naproxen 500 mg tablet RxNorm: 868292 1 Tablet(s) PO BID 09/18/2018 09/24/2018 Inactive diclofenac 1 % topic al gel RxNorm: 011998 2 Application TOP QID 09/18/2018 11/16/2018 Inactive Kenalog 40 mg/mL karl pension for injection RxNorm: 7813805 1 Milliliter(s) Inj 08/31/2018 08/31/2018 In active clonidine HCl 0.1 mg tablet RxNorm: 339172 1/2 Tablet(s) PO BID 08/16/2018 08/10/2019 Active amoxicillin 500 mg t ablet RxNorm: 675104 1 Tablet(s) PO TID 08/14/2018 08/20/2018 Inactive losartan 25 mg tablet RxNorm: 603836 1 Tablet(s) PO BID 05/02/2018 05/01/2018 Inactive losartan 25 mg tablet RxNorm: 544307 1 Tablet(s) PO BID 05/02/2018 10/31/2018 Inactive losartan 25 mg tablet RxNorm: 944670 1 Tablet(s) PO BID 01/30/2018 05/01/2018 Inactive Vitamin D 2,000 unit capsule RxNorm: 1 Capsule(s) PO daily 11/18/2017 No Stop Date Active atenolol 25 mg tablet RxNorm: 324813 1 Tablet(s) PO daily 11/18/2017 11/12/2018 Inactive atenolol 25 mg tablet RxNorm: 811239 1 Tablet(s) PO BID managed by Dr Lafleur 11/18/2017 11/17/2017 In active clonidine HCl 0.1 mg tablet RxNorm: 273479 1/2 Tablet(s) PO BID 11/18/2017 08/15/2018 Inactive doxazosin 1 mg tablet RxNorm: 958753 1 Tablet(s) PO daily at midnight 11/18/2017 10/01/2018 In active midnight losartan 25 mg tablet RxNorm: 454003 1 Tablet(s) PO BID 11/18/2017 01/29/2018 Inactive hydrochlorothiazide 12.5 mg tablet RxNorm: 013441 1 Tablet(s) PO daily 11/18/2017 10/01/2018 In active famotidine 40 mg tablet RxNorm: 320460 1 Tablet(s) PO daily TAKE 1 TABLET BY MO [facility] EVERY MORNING 11/18/2017 10/01/2018 Inactive - Ref: [id number] hydrochlorothiazide 12.5 mg tablet RxNorm: 350393 1 Tablet(s) PO daily 10/28/2017 11/17/2017 In active famotidine 40 mg tablet RxNorm: 230625 TAKE 1 TABLET BY MOUTH EVERY MORNING 10/04/2017 11/17/2017 In active - Ref: [id number] clonidine HCl 0.1 mg tablet RxNorm: 616703 1/2 Tablet(s) PO BID 07/05/2017 11/17/2017 Inactive doxazosin 1 mg tablet RxNorm: 055255 1 Tablet(s) PO daily at midnight 07/05/2017 11/17/2017 In active midnight doxazosin 1 mg tablet RxNorm: 787073 1 Tablet(s) PO BID 12/02/2016 2017 Inactive midnight prednisone 20 mg tablet RxNorm: 090732 3 Tablet(s) PO daily 11/22/2016 11/26/2016 Inactive Tessalon Perles 100 mg capsule RxNorm: 301553 1 -2 Capsule(s) PO TI D as needed cough 11/19/2016 12/31/2018 Inactive Zithromax Z-Jeff 250 mg tablet RxNorm: 122433 1 Tablet(s) PO UD 11/19/2016 12/01/2016 Inactive z pack as directed Tamiflu 75 mg capsule RxNorm: 154967 1 Capsule(s) PO BID 11/05/2016 11/09/2016 Inactive Kenalog 40 mg/mL karl pension for injection RxNorm: 3277840 Milliliter(s) Inj 11/05/2016 11/05/2016 In active Tessalon Perles 100 mg capsule RxNorm: 966101 1 -2 Capsule(s) PO TI D as needed cough 11/04/2016 11/18/2016 Inactive famotidine 40 mg tablet RxNorm: 326547 1 Tablet(s) PO QAM 10/25/2016 10/03/2017 Inactive famotidine 40 mg tablet RxNorm: 343436 1 Tablet(s) PO QAM 08/02/2016 10/24/2016 Inactive Carafate 1 gram tablet RxNorm: 351391 1 Tablet(s) PO TID DISSOLVE THE PILL IN 10ML OF WATER 07/22/2016 10/19/2016 Inactive clonidine HCl 0.1 mg tablet RxNorm: 750770 1 Tablet(s) PO BID an d 1 tablet as needed 07/22/2016 12/01/2016 Inactive Cinnamon 1000 mg RxNorm: 1 PO daily 05/19/2016 No Stop Date Active aspirin 81 mg tablet ,delayed release RxNorm: 990935 1 Tablet(s) PO QHS 05/19/2016 11/27/2018 In active losartan 25 mg tablet RxNorm: 055875 1 Tablet(s) PO BID 05/19/2016 11/17/2017 Inactive atenolol 25 mg tablet RxNorm: 226555 1.5 Tablet(s) PO BID 02/13/2016 07/21/2016 Inactive losartan 25 mg tablet RxNorm: 849928 2 Tablet(s) PO BID 01/13/2016 05/11/2016 Inactive Cardizem CD 240 mg c apsule,extended release RxNorm: 112585 1 Capsule(s) PO daily 01/13/2016 02/12/2016 In active losartan 100 mg tablet RxNorm: 204132 1/2 Tablet(s) PO BID 01/08/2016 01/12/2016 Inactive losartan 25 mg tablet RxNorm: 408002 2 Tablet(s) PO QPM 1 Tablet(s) PO QPM 12/18/2015 01/07/2016 In active atenolol 25 mg tablet RxNorm: 288116 1.5 Tablet(s) PO BID TAKE ONE TABLET BY MOUTH TWICE A DAY 12/18/2015 01/12/2016 Inactive atenolol 25 mg tablet RxNorm: 597075 Tablet(s) TAKE ONE TABLET BY MOUTH TWICE A DAY 11/14/2015 12/17/2015 Inactive losartan 25 mg tablet RxNorm: 607963 Tablet(s) 1 Tablet(s) PO QPM 11/14/2015 12/17/2015 Inactive spironolactone 25 mg tablet RxNorm: 920700 1 Tablet(s) PO daily 11/14/2015 12/14/2015 Inactive atenolol 25 mg tablet RxNorm: 897108 TAKE ONE TABLET BY MOUTH TWICE A DAY 08/07/2015 11/13/2015 In active atenolol 25 mg tablet RxNorm: 760947 1 Tablet(s) PO daily TAKE ONE TABLET BY MOUTH TWICE DAILY 08/06/2015 08/06/2015 Inactive Generic For:TENORMIN 25 MG TABLET 05/05/2015 10:00:22 AM atenolol 25 mg tablet RxNorm: 865568 1 Tablet(s) PO daily TAKE ONE TABLET BY MOUTH TWICE DAILY 08/06/2015 08/05/2015 Inactive Generic For:TENORMIN 25 MG TABLET 05/05/2015 10:00:22 AM betamethasone diprop ionate 0.05 % topical ointment RxNorm: 764790 1 TOP TID as needed rash 07/09/2015 05/18/2016 Inactive betamethasone diprop ionate 0.05 % topical ointment RxNorm: 129504 1 TOP TID as needed rash 07/09/2015 07/08/2015 Inactive spironolactone 25 mg tablet RxNorm: 880891 1 Tablet(s) PO daily 07/09/2015 07/08/2015 Inactive spironolactone 25 mg tablet RxNorm: 549962 1 Tablet(s) PO daily 07/09/2015 11/13/2015 Inactive losartan 25 mg tablet RxNorm: 545016 Tablet(s) 1 Tablet(s) PO QPM 05/27/2015 11/13/2015 Inactive atenolol 25 mg tablet RxNorm: 446246 TAKE ONE TABLET BY MOUTH TWICE DAILY 05/05/2015 08/05/2015 In active Generic For:TENORMIN 25 MG TABLET 05/05 10:00:22 AM hydrochlorothiazide 25 mg tablet RxNorm: 753812 1/2 Tablet(s) PO BID 02/17/2015 07/08/2015 Inactive Generic For:HYDRODIURIL 25 MG TABLET sulfamethoxazole 800 mg-trimethoprim 160 mg tablet RxNorm: 820866 1 Tablet(s) PO BID 01/16/2015 01/25/2015 Inactive losartan 25 mg tablet RxNorm: 078321 1 Tablet(s) PO QPM 12/09/2014 05/26/2015 Inactive Kenalog 40 mg/mL karl pension for injection RxNorm: 8366651 1 Milliliter(s) Inj 09/16/2014 09/16/2014 In active prednisone 20 mg tablet RxNorm: 536576 3 Tablet(s) PO daily 09/16/2014 09/18/2014 Inactive losartan 25 mg tablet RxNorm: 244842 1 Tablet(s) PO QPM 08/15/2014 12/08/2014 Inactive hydrochlorothiazide 25 mg tablet RxNorm: 663325 TAKE 1/2 TABLET BY MO [facility] TWICE DAILY 08/13/2014 02/08/2015 Inactive Generic For:HYDRODIURIL 25 MG TABLET atenolol 25 mg tablet RxNorm: 912794 TAKE ONE TABLET BY MOUTH TWICE DAILY 05/07/2014 05/01/2015 In active Generic For:TENORMIN 25 MG TABLET ketorolac 60 mg/2 mL intramuscular solution RxNorm: 131208 2 Milliliter(s) IM 03/20/2014 03/20/2014 In active hydrochlorothiazide 25 mg tablet RxNorm: 689067 Tablet(s) PO TAKE 1/2 TABLET BY MOUTH TWICE DAILY 02/14/2014 08/12/2014 Inactive Generic For:HYDRODIURIL 25 MG TABLET Generic For:HYDRODIURIL 25 MG TABLET 02/14/2014 3:45:03 PM atorvastatin 10 mg t ablet RxNorm: 754835 1 Tablet(s) PO TIW 09/17/2013 03/19/2014 Inactive atorvastatin 10 mg t ablet RxNorm: 425072 tablet oral 09/17/2013 06/04/2015 Inactive hydrochlorothiazide 25 mg tablet RxNorm: 482035 Tablet(s) PO TAKE 1/2 TABLET BY MOUTH TWICE DAILY 08/06/2013 02/13/2014 Inactive Generic For:HYDRODIURIL 25 MG TABLET Generic For:HYDRODIURIL 25 MG TABLET 08/06/2013 1:52:35 PM amoxicillin 500 mg t ablet RxNorm: 088186 2 Tablet(s) PO 2 tabl ets PO 1 hour before dental procedure. 07/26/2013 07/25/2013 Inactive amoxicillin 500 mg t ablet RxNorm: 368924 2 Tablet(s) PO 2 tabl ets PO 1 hour before dental procedure. 07/26/2013 07/26/2013 Inactive methotrexate sodium 2.5 mg tablet RxNorm: 043288 tablet oral 07/13/2013 01/15/2015 Inactive atenolol 25 mg tablet RxNorm: 721107 Tablet(s) PO TAKE ONE TABLET BY MOUTH TW ICE DAILY 05/01/2013 05/06/2014 Inactive Generic For:TENORMIN 25 MG TABLET hydrochlorothiazide 25 mg tablet RxNorm: 040274 Tablet(s) PO TAKE 1/2 TABLET BY MOUTH TWICE DAILY 11/21/2012 08/05/2013 Inactive Generic For:HYDRODIURIL 25 MG TABLET atenolol 25 mg tablet RxNorm: 808128 Tablet(s) PO TAKE ONE TABLET BY MOUTH TW ICE DAILY 10/02/2012 04/30/2013 Inactive Generic For:TENORMIN 25 MG TABLET gemfibrozil 600 mg t ablet RxNorm: 918612 1 Tablet(s) PO BID 06/08/2012 10/08/2012 Inactive meclizine 25 mg tablet RxNorm: 9582686 1 Tablet(s) PO Q4 PRN 06/08/2012 09/05/2012 Inactive prednisone 10 mg Tab RxNorm: 548441 2 Tablet(s) PO daily 03/16/2012 03/20/2012 Inactive atorvastatin 10 mg Tab RxNorm: 767291 1 Tablet(s) PO daily 12/21/2011 12/20/2011 Inactive atorvastatin 10 mg Tab RxNorm: 526406 1 Tablet(s) PO daily 12/21/2011 06/08/2012 Inactive methotrexate sodium 2.5 mg Tab RxNorm: 366639 Tablet(s) PO 11/16/2011 06/12/2012 Inactive 3 on tuesday3 on hydrochlorothiazide 25 mg Tab RxNorm: 363239 1/2 Tablet(s) PO BID 11/01/2011 11/24/2012 Inactive hydrochlorothiazide 12.5 mg Cap RxNorm: 219689 Capsule(s) PO 11/01/2011 06/08/2012 Inactive TAKE ONE TABLET BY MOUTH TWICE DAILY;Gen sky For:MICROZIDE 12.5 MG CAPSULE hydrochlorothiazide 25 mg Tab RxNorm: 910610 1/2 Tablet(s) PO BID 11/01/2011 11/24/2012 Inactive hydrochlorothiazide 25 mg tablet RxNorm: 928424 1/2 Tablet(s) PO BID 11/01/2011 10/31/2011 Inactive hydrochlorothiazide 25 mg Tab RxNorm: 418089 1/2 Tablet(s) PO BID 11/01/2011 10/31/2011 Inactive atenolol 25 mg tablet RxNorm: 157811 Tablet(s) PO 10/04/2011 10/01/2012 Inactive TAKE ONE TABLET BY MOUTH TWICE DAILY;Generic For:TENORMIN 25 MG TABLET hydrochlorothiazide 12.5 mg Cap RxNorm: 152870 1 Capsule(s) PO BID 09/13/2011 10/31/2011 Inactive Influenza Virus Vacc ine 0.5 mL RxNorm: IM 07/13/2011 07/13/2011 Inactive Pneumovax 23 25 mcg/ 0.5 mL Injection RxNorm: 359238 Milliliter(s) Inj 07/13/2011 07/13/2011 In active vitamin B complex oral RxNorm: 51912 oral No Start Date Active Cinnamon 1000 mg RxNorm: 2 PO daily No Start Date Active atenolol 25 mg Tab RxNorm: 190705 1 Tablet(s) PO BID No Start Date 10/03/2011 Inactive niacin ER 500 mg Cap RxNorm: 602379 1 Capsule(s) PO daily No Start Date 06/08/2012 Inactive gemfibrozil 600 mg t ablet RxNorm: 047002 1 Tablet(s) PO BID No Start Date 06/07/2012 Inactive Vitamin C 500 mg Tab RxNorm: 693680 1 Tablet(s) PO daily No Start Date 07/21/2016 Inactive Zithromax Z-Jeff 250 mg tablet RxNorm: 327180 1 Tablet(s) PO UD No Start Date 11/18/2016 Inactive z pack as directed doxazosin 1 mg tablet RxNorm: 186137 1 Tablet(s) PO BID No Start Date 12/01/2016 Inactive vitamin E (dl, aceta te) 400 unit Cap RxNorm: 215502 1 Capsule(s) PO daily No Start Date 07/21/2016 Inactive famotidine 40 mg tablet RxNorm: 461077 1 Tablet(s) PO QAM No Start Date 08/01/2016 Inactive Phenergan VC-Codeine 6.25 mg-5 mg-10 mg/5 mL syrup RxNorm: 805031 5 Milliliter(s) PO Q6 as needed No Start Date 12/31/2018 Inactive hydrochlorothiazide 25 mg Tab RxNorm: 598045 1/2 Tablet(s) PO BID No Start Date 09/12/2011 Inactive Tessalon Perles 100 mg capsule RxNorm: 150179 1 -2 Capsule(s) PO TI D as needed cough No Start Date 11/03/2016 Inactive aspirin 81 mg Tab, D elayed Release RxNorm: 526457 1 Tablet(s) PO every other day No Start Date 05/18/2016 Inactive Cinnamon 1000 mg RxNorm: 2 PO daily No Start Date 05/18/2016 Inactive clonidine HCl 0.1 mg tablet RxNorm: 706670 1 Tablet(s) PO QHS an d 1 Tablet as needed No Start Date 07/21/2016 Inactive [place] 3 Cap RxNorm: 1 Capsule(s) PO BID No Start Date 12/31/2018 Inactive niacin 500 mg tablet RxNorm: 047410 1 Tablet(s) PO QHS No Start Date 01/01/2015 Inactive multivitamin Tab RxNorm: 1 Tablet(s) PO daily No Start Date 07/21/2016 Inactive methotrexate sodium 2.5 mg Tab RxNorm: 397613 Tablet(s) PO No Start Date 11/15/2011 Inactive 3 on tuesday3 on T-Bio RxNorm: 1 PO daily No Start Date 05/18/2016 Inactive Vitamin D 2,000 unit Cap RxNorm: 1 Capsule(s) PO daily No Start Date 07/21/2016 Inactive hydrochlorothiazide 12.5 mg tablet RxNorm: 036977 1 Tablet(s) PO daily No Start Date 10/27/2017 Inactive Medication Administered Medication Codes Instruc tions Start Date Status Kenalog 40 mg/mL suspension for injection RxNorm: 2686190 Milliliter 01/01/2019 No longer Active Kenalog 40 mg/mL suspension for injection RxNorm: 8440929 1Milliliter 08/31/2018 N o longer Active Kenalog 40 mg/mL suspension for injection RxNorm: 9831902 Milliliter 11/05/2016 No longer Active Kenalog 40 mg/mL suspension for injection RxNorm: 1447168 1Milliliter 09/16/2014 N o longer Active ketorolac 60 mg/2 mL intramuscular solution RxNorm: 252108 2Milliliter 03/20/2014 N o longer Active Influenza Virus Vaccine 0.5 mL RxNorm: 07/13/2011 No longer Active Pneumovax 23 25 mcg/0.5 mL Injection RxNorm: 998348 Milliliter 07/13/2011 No longer Active Immunizations Vaccine [...] 02/03/2012 VITAMIN DEFICIENCY ICD-9: 269.2 11/04/2011 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 07/13/2011 Postprandial bloating ICD-9: 787.3 [...] 14.3 g/dl 03/27/2019 Cbc With Differential Ord2 HCT 43.0 % 03/27/2019 Cbc With Differential Ord2 Neut% 65.7 % 03/27/2019 Cbc With Differential Ord2 MCV 92.1 fl 03/27/2019 Cbc With Differential Ord2 Lymph% 24.4 % 03/27/2019 Cbc With Differential Ord2 MCH 30.6 pg 03/27/2019 Cbc With Differential Ord2 [place]% 8.1 % 03/27/2019 Cbc With Differential Ord2 [...] 2.42 K/ul 03/27/2019 Cbc With Differential Ord2 [place] ABS# 0.8 K/ul 03/27/2019 Cbc With Differential Ord2 Eos ABS# 0.1 K/ul 03/27/2019 Cbc With Differential Ord2 Baso ABS# 0.1 K/ul 03/27/2019 Comp Metabolic Wvv881 NA 141 mEq/L 03/27/2019 Comp Metabolic Ywl140 K 4.0 mEq/L 03/27/2019 Comp Metabolic Jwy706 CL 105 mEq/L 03/27/2019 Comp Metabolic Qds480 CO2 25.0 mEq/L 03/27/2019 Comp Metabolic Dkq598 AN ION GAP 15 03/27/2019 Comp Metabolic Rcb035 GL UCOSE 106 mg/dL 03/27/2019 Comp Metabolic Cfu350 Cr eat 0.7 mg/dL 03/27/2019 Comp Metabolic Qmi262 eG FR 87 ml/min/1.73m2 03/27 Comp Metabolic Oxg930 BUN 15 mg/dL 03/27/2019 Comp Metabolic Dtj532 B/ C Ratio 21.4 Ratio 03/27/2019 Comp Metabolic Wop249 CA LCIUM 9.8 mg/dL 03/27/2019 Comp Metabolic Uyi657 AL K PHOS 60 U/L 03/27/2019 Comp Metabolic Gic573 T(SGOT) 21 U/L 03/27/2019 Comp Metabolic Jjq261 AL T(SGPT) 23 U/L 03/27/2019 Comp Metabolic Ckf091 BI LI T 0.7 mg/dL 03/27/2019 Comp Metabolic Lmr485 AL BUMIN 4.1 g/dL 03/27/2019 Comp Metabolic Ssb634 TP RO 6.3 g/dL 03/27/2019 Comp Metabolic Gti640 GL OB 2.3 g/dL 03/27/2019 Comp Metabolic Cyo270 A/ G Ratio 1.8 Ratio 03/27/2019 Comp Metabolic Aia864 Os mo 283 mOsmo 03/27/2019 Tsh Ord6 TSH (3rd IS) 1.87 uIU/mL 03/27/2019 Vitamin D 25 Oh Svd9716 VITAMIN D, 25 HYDROXY 27.62 ng/mL 03/27/2019 Lipid Ord30 CHOL 308 mg/dL 03/27/2019 Lipid Ord30 HDL 46.0 mg/dl 03/27/2019 Lipid Ord30 TRIG 336 mg/dL 03/27/2019 Lipid Ord30 LDL 195 mg/dL 03/27/2019 Lipid Ord30 C/HDL 6.7 Ratio 03/27/2019 Potassium Ord64 K 3.8 mEq/L 12/06/2016 Comp Metabolic Wlc937 NA 134 mEq/L 12/03/2016 Comp Metabolic Kvh607 K Specimen 3+ Hemolyzed mEq/L 12/04/19 17 Comp Metabolic Lqg244 CL 106 mEq/L 12/03/2016 Comp Metabolic Ahz617 CO2 20.0 mEq/L 12/03/2016 Comp Metabolic Jqy250 AN ION GAP 16 12/03/2016 Comp Metabolic Xvl026 GL UCOSE 93 mg/dL 12/03/2016 Comp Metabolic Int433 Cr eat 0.8 mg/dL 12/03/2016 Comp Metabolic Uvd394 eG FR 73 ml/min/1.73m2 12/03 Comp Metabolic Zfd597 BUN 14 mg/dL 12/03/2016 Comp Metabolic Qfe240 B/ C Ratio 17.1 Ratio 12/03/2016 Comp Metabolic Kqu488 CA LCIUM 9.3 mg/dL 12/03/2016 Comp Metabolic Naz615 AL K PHOS 63 U/L 12/03/2016 Comp Metabolic Nuj836 T(SGOT) 69 U/L 12/03/2016 Comp Metabolic Yog138 AL T(SGPT) 33 U/L 12/03/2016 Comp Metabolic Wss336 BI LI T 1.0 mg/dL 12/03/2016 Comp Metabolic Vef803 AL BUMIN 4.3 g/dL 12/03/2016 Comp Metabolic Cib295 TP RO 6.7 g/dL 12/03/2016 Comp Metabolic Mtq726 GL OB 2.4 g/dL 12/03/2016 Comp Metabolic Wzr786 A/ G Ratio 1.7 Ratio 12/03/2016 Comp Metabolic Xpb053 Os mo 268 mOsmo 12/03/2016 Comp Metabolic Wcy828 NA 138 mEq/L 12/18/2015 Comp Metabolic Srs942 K 4.1 mEq/L 12/18/2015 Comp Metabolic Clq589 CL 104 mEq/L 12/18/2015 Comp Metabolic Rzw528 CO2 22.0 mEq/L 12/18/2015 Comp Metabolic Njo476 AN ION GAP 16 12/18/2015 Comp Metabolic Xih023 GL UCOSE 89 mg/dL 12/18/2015 Comp Metabolic Odx968 Cr eat 0.6 mg/dL 12/18/2015 Comp Metabolic Kvq381 eG FR 99 ml/min/1.73m2 12/17 Comp Metabolic Aie668 BUN 15 mg/dL 12/18/2015 Comp Metabolic Zyv979 B/ C Ratio 23.8 Ratio 12/18/2015 Comp Metabolic Thf024 CA LCIUM 10.4 mg/dL 12/18/2015 Comp Metabolic Ojd486 AL K PHOS 77 U/L 12/18/2015 Comp Metabolic Frt804 T(SGOT) 19 U/L 12/18/2015 Comp Metabolic Bey125 AL T(SGPT) 17 U/L 12/18/2015 Comp Metabolic Gdy969 BI LI T 0.8 mg/dL 12/18/2015 Comp Metabolic Pnf672 AL BUMIN 4.3 g/dL 12/18/2015 Comp Metabolic Lze920 TP RO 6.7 g/dL 12/18/2015 Comp Metabolic Hgp698 GL OB 2.4 g/dL 12/18/2015 Comp Metabolic Bbe745 A/ G Ratio 1.7 Ratio 12/18/2015 Comp Metabolic Zqi873 Os mo 276 mOsmo 12/18/2015 Cbc With [...] 29.5 pg 12/18/2015 Cbc With Differential Ord2 [place]% 9.4 % 12/18/2015 Cbc With Differential Ord2 [...] 2.57 K/ul 12/18/2015 Cbc With Differential Ord2 [place] ABS# 0.8 K/ul 12/18/2015 Cbc With Differential Ord2 Eos ABS# 0.1 K/ul 12/18/2015 Cbc With Differential Ord2 Baso ABS# 0.0 K/ul 12/18/2015 Cbc With Differential Ord2 New Analyzer Notice Please note new ref ranges s tarting 10-15-2015 due to implemntation of new five part differential hematolgy analyzer. 12/18/2015 Total T3 Ord42 TT3 1.0 ng/ml 07/10/2015 Free T4 Bhh228 FREE T4 0.90 ng/dL 07/09/2015 Free T3 Mqs170 Free T3 2.92 pg/ml 07/09/2015 Tsh Ord6 hTSH II 1.18 uIU/mL 07/09/2015 URINALYSIS NONAUTO W/O SCOPE 96710 Specific [place] 1.005 DateTime(Free Text in Aprima) URINALYSIS NONAUTO W/O SCOPE 32265 PH 6 DateTime(Free Text in Aprima) URINALYSIS NONAUTO W/O SCOPE 62209 GLUCOSE neg DateTime(Free Dano t in Aprima) URINALYSIS NONAUTO W/O SCOPE 04741 Protein neg DateTime(Free Dano t in Aprima) URINALYSIS NONAUTO W/O SCOPE 93456 Blood neg DateTime(Free Dano t in Aprima) URINALYSIS NONAUTO W/O SCOPE 99579 Bilirubin neg DateTime(Free Dano t in Aprima) URINALYSIS NONAUTO W/O SCOPE 18104 Ketones neg DateTime(Free Dano t in Aprima) URINALYSIS NONAUTO W/O SCOPE 08660 Urobilinogen neg DateTime(Free Text in Aprima) URINALYSIS NONAUTO W/O SCOPE 38118 Nitrite neg DateTime(Free Dano t in Aprima) URINALYSIS NONAUTO W/O SCOPE 97067 Leukocytes neg DateTime(Free Text in Aprima) Review of Systems System Result Effective Dates [...] nocturia 07/05/2017 Neurologic dizziness 12/2016 Neurologic headache 10/0 12/2016 Dermatologic No rash 12/2016 Dermatologic No [...] bilaterally 02/03/2012 None Full Exam - General 1995 Respiratory respiratory effort/rhythm Overall: no retractions 02/03/2012 None Full Exam - General 1995 Respiratory respiratory effort/rhythm Overall: normal rate 02/03/2012 None Full Exam - General 1995 Cardiovascular auscultation of heart Overall: regular rate 02/03/2012 None Full Exam - General 1995 Cardiovascular auscultation of heart Overall: normal heart sounds 02/03/2012 None Full Exam - General 1994 Cardiovascular inspection of pedal pulses Overall: strong, equal bilaterally 02/03/2012 None Full Exam - General 1994 Abdomen abdominal exam Overall: no tenderness 02/03/2012 None Full Exam - General 1995 Abdomen abdominal exam Overall: normal bowel sounds [...] 1994 Ears/Nose/Throat external ear Overall: normal mastoids 11/04/2011 [...] Formatting Model/CDA Sections, Assigned to/Kimberley Fagan CPT-4: 01073Jjqhynt 07/06/2018 ADMIN INFLUENZA VIRU S VAC CPT-4: G0008 07/05/2017 FLU VACC PRSV FREE I NC ANTIG CPT-4: 06068 07/05/2017 THER/PROPH/DIAG INJ SC/IM CPT-4: 69830 11/05/2016 TRIAMCINOLONE ACET I [place] NOS CPT-4: J3301 11/05/2016 TRIAMCINOLONE ACET I [place] NOS CPT-4: J3301 09/16/2014 DRAIN/INJECT JOINT/B URSA CPT-4: 16522 09/16/2014 KETOROLAC TROMETHAMI NE INJ CPT-4: J1885 03/20/2014 URINALYSIS NONAUTO W /O SCOPE CPT-4: 37590 12/10/2013 PRESCRIP TRANSMIT A ERX SY CPT-4: G8553 09/17/2013 PRESCRIP TRANSMIT A ERX SY CPT-4: G8553 06/08/2012 TRIAMCINOLONE ACET I [place] NOS CPT-4: J3301 03/16/2012 INJ TRIGGER POINT 1/ 2 MUSCL CPT-4: 09473 03/16/2012 PRESCRIP TRANSMIT A ERX SY CPT-4: G8553 03/16/2012 ADMIN INFLUENZA VIRU S VAC CPT-4: G0008 07/13/2011 FLULAVAL VACC, 3 YRS & >, IM CPT-4: Q2036 07/13/2011 ADMIN PNEUMOCOCCAL V ACCINE SNOMED CT: 84216075 CPT-4: G0009 07/13/2011 Pneumococcal Polysac charide Vaccine, 23-Valent, Ad CPT-4: 27387 07/13/2011 Vital Signs Date Vital 03/20/2019 Blood Pressure 1: 134/84 Code: 8480-6 BMI: 36.7 Code: 06352-5 Heart Rate 1: 63 bpm Height: 5'3" SpO2: 97% Weight: 207 lbs 03/15/2019 Blood Pressure 1: 138/76 Code: 8480-6 BMI: 36.7 Code: 85543-8 Heart Rate 1: 64 bpm Height: 5'3" SpO2: 98% Weight: 207 lbs 01/08/2019 Blood Pressure 1: 128/70 Code: 8480-6 Heart Rate 1: 67 bpm SpO2: 97% 01/01/2019 Blood Pressure 1: 138/80 Code: 8480-6 BMI: 36.3 Code: 66065-8 Heart Rate 1: 64 bpm Height: 5'3" SpO2: 98% Weight: 205 lbs 12/18/2018 Blood Pressure 1: 120/62 Code: 8480-6 BMI: 36.0 Code: 65001-1 Heart Rate 1: 67 bpm Height: 5'3" SpO2: 97% Weight: 203 lbs 09/18/2018 Blood Pressure 1: 126/70 Code: 8480-6 BMI: 36.3 Code: 63405-3 Heart Rate 1: 58 bpm Height: 5'3" SpO2: 98% Weight: 205 lbs 08/31/2018 Blood Pressure 1: 148/76 Code: 8480-6 BMI: 37.0 Code: 95351-4 Heart Rate 1: 60 bpm Height: 5'3" SpO2: 98% Weight: 209 lbs 08/14/2018 Blood Pressure 1: 140/80 Code: 8480-6 BMI: 37.2 Code: 44622-0 Heart Rate 1: 76 bpm Height: 5'3" SpO2: 96% Weight: 210 lbs 05/22/2018 Blood Pressure 1: 150/62 Code: 8480-6 BMI: 36.7 Code: 06265-8 Heart Rate 1: 74 bpm Height: 5'3" SpO2: 98% Weight: 207 lbs 11/18/2017 Blood Pressure 1: 122/66 Code: 8480-6 BMI: 35.8 Code: 17550-1 Heart Rate 1: 59 bpm Height: 5'3" SpO2: 97% Weight: 202 lbs 08/03/2017 Blood Pressure 1: 122/60 Code: 8480-6 BMI: 36.0 Code: 72479-8 Heart Rate 1: 60 bpm Height: 5'3" SpO2: 97% Weight: 203 lbs 07/05/2017 Blood Pressure 1: 140/76 Code: 8480-6 BMI: 36.0 Code: 32187-8 Heart Rate 1: 58 bpm Height: 5'3" SpO2: 98% Weight: 203 lbs 12/02/2016 Blood Pressure 1: 122/70 Code: 8480-6 BMI: 34.4 Code: 40071-4 Heart Rate 1: 66 bpm Height: 5'3" SpO2: 99% Temperature: 36.4 (C ) / 97.5 (F) Weight: 194 lbs 11/22/2016 Blood Pressure 1: 102/60 Code: 8480-6 BMI: 34.2 Code: 08525-8 Heart Rate 1: 110 bpm Height: 5'3" SpO2: 98% Temperature: 36.7 (C ) / 98.0 (F) Weight: 193 lbs 11/05/2016 Blood Pressure 1: 140/62 Code: 8480-6 BMI: 36.1 Code: 48789-5 Heart Rate 1: 102 bpm Height: 5'3" SpO2: 97% Temperature: 37.1 (C ) / 98.7 (F) Weight: 204 lbs 07/22/2016 Blood Pressure 1: 158/80 Code: 8480-6 Blood Pressure 1: 160/76 Code: 8480-6 BMI: 36.8 Code: 99610-4 Heart Rate 1: 56 bpm Height: 5'3" SpO2: 98% Weight: 208 lbs 05/19/2016 Blood Pressure 1: 150/78 Code: 8480-6 Blood Pressure 1: 122/69 Code: 8480-6 BMI: 37.0 Code: 54075-0 Heart Rate 1: 61 bpm Height: 5'3" SpO2: 98% Weight: 209 lbs 02/13/2016 Blood Pressure 1: 140/76 Code: 8480-6 BMI: 36.8 Code: 80008-1 Heart Rate 1: 64 bpm Height: 5'3" SpO2: 97% Weight: 208 lbs 01/13/2016 Blood Pressure 1: 170/70 Code: 8480-6 BMI: 36.8 Code: 24060-3 Heart Rate 1: 65 bpm Height: 5'3" SpO2: 95% Weight: 208 lbs 01/02/2016 Blood Pressure 1: 150/88 Code: 8480-6 BMI: 36.8 Code: 74710-1 Heart Rate 1: 61 bpm Height: 5'3" SpO2: 98% Weight: 208 lbs 12/18/2015 Blood Pressure 1: 148/90 Code: 8480-6 BMI: 37.6 Code: 99185-2 Heart Rate 1: 64 bpm Height: 5'3" SpO2: 96% Weight: 212 lbs 09/08/2015 Blood Pressure 1: 130/88 Code: 8480-6 BMI: 37.0 Code: 61754-8 Heart Rate 1: 62 bpm Height: 5'3" SpO2: 97% Weight: 209 lbs 07/09/2015 Blood Pressure 1: 142/82 Code: 8480-6 BMI: 36.4 Code: 71294-8 Heart Rate 1: 66 bpm Height: 5'3" SpO2: 97% Weight: 205 lbs 5 oz 01/16/2015 Blood Pressure 1: 122/80 Code: 8480-6 BMI: 35.6 Code: 44013-1 Heart Rate 1: 67 bpm Height: 5'3" SpO2: 98% Weight: 201 lbs 01/03/2015 Blood Pressure 1: 122/70 Code: 8480-6 BMI: 35.6 Code: 09561-2 Heart Rate 1: 61 bpm Height: 5'3" Respiratory Rate: 16 bpm SpO2: 98% Weight: 201 lbs 09/16/2014 Blood Pressure 1: 132/78 Code: 8480-6 BMI: 34.9 Code: 66458-6 Heart Rate 1: 56 bpm Height: 5'3" Weight: 197 lbs 08/15/2014 Blood Pressure 1: 152/80 Code: 8480-6 Blood Pressure 2: 160/82 Code: 8480-6 BMI: 34.0 Code: 12878-6 Heart Rate 1: 75 bpm Height: 5'3" Weight: 192 lbs 06/12/2014 Blood Pressure 1: 136/82 Code: 8480-6 BMI: 34.9 Code: 62662-2 Heart Rate 1: 58 bpm Height: 5'3" SpO2: 96% Weight: 197 lbs 03/20/2014 Blood Pressure 1: 140/72 Code: 8480-6 BMI: 34.9 Code: 91354-9 Heart Rate 1: 60 bpm Height: 5'3" Weight: 197 lbs 12/10/2013 Blood Pressure 1: 132/78 Code: 8480-6 BMI: 35.1 Code: 48214-4 Heart Rate 1: 68 bpm Height: 5'3" Weight: 198 lbs 09/17/2013 Blood Pressure 1: 128/78 Code: 8480-6 BMI: 34.9 Code: 32382-9 Heart Rate 1: 68 bpm Height: 5'3" Weight: 197 lbs 05/21/2013 Blood Pressure 1: 128/82 Code: 8480-6 BMI: 35.6 Code: 04280-9 Heart Rate 1: 80 bpm Height: 5'3" Weight: 201 lbs 01/17/2013 Blood Pressure 1: 138/72 Code: 8480-6 BMI: 36.7 Code: 40116-4 Heart Rate 1: 60 bpm Height: 5'3" [...] 1: 140/78 Code: 8480-6 BMI: 40.0 Code: 68301-3 Heart Rate 1: 64 bpm Height: 5'3" Respiratory Rate: 16 bpm Weight: 226 lbs 11/04/2011 Blood Pressure 1: 136/76 Code: 8480-6 Heart Rate 1: 68 bpm Respiratory Rate: 16 bpm Weight: 226 lbs 07/13/2011 Blood Pressure 1: 142/80 Code: 8480-6 BMI: 40.0 Code: 75704-4 Heart Rate 1: 60 bpm Height: 5'4" [...] ago 03/16/2012 None shoulder pain Quality ac earnest 03/16/2012 None shoulder pain Quality sh kate [...] Encounters Encounter Performer Loca tion Codes Date 89554 EST. PATIENT, LEVEL II Diagnosis: Pain in right knee[ICD10: M25.561] Diagnosis: Unspecified fracture of shaft of right fibula, initial encounter for closed fracture[ICD10: S82.401A] [facility] CPT-4: 68053 03/20/2019 08646 EST. PATIENT, LEVEL III Diagnosis: Asymptomatic varicose veins of right lower extremity[ICD10: I83.91] [facility] CPT-4: 86808 03/15/2019 ([id number]) 60285 EST. P ATIENT, LEVEL II Diagnosis: Otalgia, right ear[ICD10: H92.01] Diagnosis: Other specified disorders of teeth and supporting structures[ICD10: K08.89] [facility] CPT-4: 37294 01/08/2019 ([id number]) 23206 EST. P ATIENT, LEVEL III Diagnosis: Otalgia, right ear[ICD10: H92.01] [facility] CPT- 4: 91781 01/01/2019 ([id number]) 47215 EST. 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 P ATIENT, LEVEL III Diagnosis: Nasal congestion[ICD10: R09.81] Diagnosis: Other allergic rhinitis[ICD10: J30.89] Юлия Manuel MD, [facility] CPT-4: 21833 08/31/2018 ([id number]) 81503 EST. P ATIENT, LEVEL III Diagnosis: Acute recurrent maxillary sinusitis[ICD10: J01.01] Юлия Manuel MD, [facility] CPT-4: 38709 08/14/2018 91960 EST. PATIENT, LEVEL III Diagnosis: Pain in right shoulder[ICD10: M25.511] Diagnosis: Pain in right arm[ICD10: M79.601] Willow Manuel MD, [facility] CPT-4: 26884 05/22/2018 ([id number]) 19628 EST. 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 PATIENT, LEVEL III Diagnosis: Other specified intestinal infections[ICD10: A08.8] Willow Manuel MD, [facility] CPT-4: 06805 08/03/2017 ([id number]) 12777 EST. 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 P ATIENT, LEVEL III Diagnosis: Essential (primary) hypertension[ICD10: I10] Юлия Manuel MD, [facility] CPT-4: 86119 12/02/2016 ([id number]) 44616 EST. P ATIENT, LEVEL III Diagnosis: Essential (primary) hypertension[ICD10: I10] Diagnosis: Allergic rhinitis due to pollen[ICD10: J30.1] Giuliana Manuel MD[facility] CPT-4: 49154 11/22/2016 88149 EST. PATIENT, LEVEL III Diagnosis: Acute laryngopharyngitis[ICD10: J06.0] Diagnosis: Influenza due to unidentified influenza virus with other respiratory manifestations[ICD10: J11.1] Willow Manuel MD, [facility] CPT-4: 30294 11/05/2016 ([id number]) 58679 EST. P ATIENT, LEVEL III Diagnosis: Gastro-esophageal reflux disease without esophagitis[ICD10: K21.9] Diagnosis: Essential (primary) hypertension[ICD10: I10] Giuliana Manuel [facility] CPT-4: 96705 07/22/2016 ([id number]) 03718 EST. P ATIENT, LEVEL IV Diagnosis: Essential (primary) hypertension[ICD10: I10] Diagnosis: Abdominal distension (gaseous)[ICD10: R14.0] Giuliana Manuel [facility] CPT-4: 29646 05/19/2016 ([id number]) 92738 EST. P ATIENT, LEVEL III Diagnosis: Essential (primary) hypertension[ICD10: I10] Юлия Manuel MD, [facility] CPT-4: 52194 02/13/2016 ([id number]) 46766 EST. P ATIENT, LEVEL III Diagnosis: Essential (primary) hypertension[ICD10: I10] Юлия Manuel MD, [facility] CPT-4: 57122 01/13/2016 09862 EST. PATIENT, LEVEL IV Diagnosis: Essential (primary) hypertension[ICD10: I10] Diagnosis: Body mass index (BMI) 36.0-36.9, adult[ICD10: Z68.36] Willow Manuel MD, [facility] CPT-4: 23675 01/02/2016 ([id number]) 14802 EST. P ATIENT, LEVEL III Diagnosis: Essential (primary) hypertension[ICD10: I10] Юлия Manuel MD, [facility] CPT-4: 60558 12/18/2015 ([id number]) 10725 EST. P ATIENT, LEVEL IV Diagnosis: Essential (primary) hypertension[ICD10: I10] Diagnosis: Benign paroxysmal vertigo, bilateral[ICD10: H81.13] Diagnosis: Radiculopathy, cervical region[ICD10: M54.12] Giuliana Manuel [facility] CPT-4: 98284 09/08/2015 ([id number]) 23364 EST. P ATIENT, LEVEL IV Diagnosis: Other specified nonscarring hair loss[ICD10: L65.8] Diagnosis: Myositis, unspecified[ICD10: M60.9] Diagnosis: Psoriasis, unspecified[ICD10: L40.9] Diagnosis: Essential (primary) hypertension[ICD10: I10] Giuliana Manuel [facility] CPT-4: 75626 07/09/2015 ([id number]) 37601 EST. P ATIENT, LEVEL III Diagnosis: ESSENTIAL HYPERTENSION[ICD9: 401.9] Giuliana Manuel MD, [facility] CPT- 4: 61569 01/16/2015 ([id number]) 52968 EST. P ATIENT, LEVEL III Diagnosis: Shoulder pain[ICD9: 719.41] Diagnosis: ESSENTIAL HYPERTENSION[ICD9: 401.9] Diagnosis: PALPITATIONS[ICD9: 785.1] Giuliana Manuel MD, [facility] CPT-4: 69536 01/03/2015 ([id number]) 38853 EST. P ATIENT, LEVEL III Diagnosis: Sacroiliitis[ICD9: 720.2] Diagnosis: Back pain[ICD9: 724.5] Diagnosis: ESSENTIAL HYPERTENSION[ICD9: 401.9] Giuliana Manuel MD [facility] CPT- 4: 44244 09/16/2014 ([id number]) 11949 EST. P ATIENT, LEVEL IV Diagnosis: ESSENTIAL HYPERTENSION[ICD9: 401.9] Diagnosis: Arrhythmia[ICD9: 427.9] Diagnosis: Nausea[ICD9: 787.02] Giuliana Manuel MD [facility] CPT-4: 94290 08/15/2014 ([id number]) 21725 EST. P ATIENT, LEVEL IV Diagnosis: ESSENTIAL HYPERTENSION[ICD9: 401.9] Diagnosis: Back pain[ICD9: 724.5] Diagnosis: Allergic reaction[ICD9: 995.3] Giuliana Manuel MD, [facility] CPT-4: 23515 06/12/2014 ([id number]) 27088 EST. P ATIENT, LEVEL III Diagnosis: Thoracic back pain[ICD9: 724.1] Diagnosis: MYALGIA AND MYOSITIS[ICD9: 729.1] Giuliana Manuel MD, [facility] CPT-4: 40322 03/20/2014 ([id number]) 79839 EST. P ATIENT, LEVEL IV Diagnosis: HYPERLIPIDEMIA[ICD9: 272.4] Diagnosis: ESSENTIAL HYPERTENSION[SNOMED: 85262863] Diagnosis: ABDOM PAIN NOS SITE[ICD9: 789.00] Giuliana Manuel MD, [facility] CPT-4: 48049 12/10/2013 ([id number]) 52367 EST. P ATIENT, LEVEL IV Diagnosis: ESSENTIAL HYPERTENSION[SNOMED: 38077843] Diagnosis: HYPERLIPIDEMIA[ICD9: 272.4] Giuliana Manuel MD, [facility] CPT-4: 60117 09/17/2013 ([id number]) 77340 EST. P ATIENT, LEVEL IV Diagnosis: ESSENTIAL HYPERTENSION[SNOMED: 83723804] Diagnosis: OBESITY[ICD9: 278.00] Diagnosis: Back pain[ICD9: 724.5] Giuliana Manuel MD, [facility] CPT-4: 76214 05/21/2013 ([id number]) 13208 EST. P ATIENT, LEVEL IV Diagnosis: ESSENTIAL HYPERTENSION[SNOMED: 33251658] Diagnosis: HYPERLIPIDEMIA[ICD9: 272.4] Diagnosis: Abdominal pain[ICD9: 789.00] Diagnosis: BENIGN PAROXYSMAL VERTIGO[ICD9: 386.11] Giuliana Manuel MD, [facility] CPT-4: 27638 01/17/2013 ([id number]) 99879 EST. P ATIENT, LEVEL IV Diagnosis: ESSENTIAL HYPERTENSION[SNOMED: 30447870] Diagnosis: BENIGN PAROXYSMAL VERTIGO[ICD9: 386.11] Diagnosis: Hair loss[ICD9: 704.00] Diagnosis: Vitamin d deficiency[ICD9: 268.9] Diagnosis: Bleeding from the nose[ICD9: 784.7] Giuliana Manuel MD, [facility] CPT- 4: 74886 09/20/2012 46158 EST. PATIENT, LEVEL IV Diagnosis: BPPV (benign paroxysmal positional vertigo)[ICD9: 386.11] Diagnosis: HYPERLIPIDEMIA[ICD9: 272.4] Diagnosis: ESSENTIAL HYPERTENSION[SNOMED: 64252695] Giuliana Manuel MD, [facility] CPT-4: 71170 06/08/2012 ([id number]) 49713 EST. P ATIENT, LEVEL IV Diagnosis: BPPV (benign paroxysmal positional vertigo)[ICD9: 386.11] Diagnosis: Diverticulitis[ICD9: 562.11] Diagnosis: Abdominal pain[ICD9: 789.00] Giuliana Manule MD, [facility] CPT-4: 70212 04/10/2012 ([id number]) 85304 EST. P ATIENT, LEVEL III Diagnosis: Neck pain[ICD9: 723.1] Diagnosis: Acute upper back pain[ICD9: 724.1] Giuliana Manuel MD, [facility] CPT- 4: 77112 03/16/2012 ([id number]) 36391 EST. P ATIENT, LEVEL IV Diagnosis: HYPERLIPIDEMIA[ICD9: 272.4] Diagnosis: ESSENTIAL HYPERTENSION[SNOMED: 92772506] Diagnosis: Constipation - functional[ICD9: 564.09] Giuliana Manuel MD, [facility] CPT-4: 85341 02/03/2012 ([id number]) 47184 EST. P ATIENT, LEVEL IV Diagnosis: HYPERLIPIDEMIA[ICD9: 272.4] Diagnosis: VITAMIN DEFICIENCY[ICD9: 269.2] Diagnosis: ESSENTIAL HYPERTENSION[SNOMED: 45653989] Giuliana Manuel MD, [facility] CPT-4: 67085 11/04/2011 07781 EST. 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 03/15/2019 Appointment: [facility]el[phone] (15 min) Moderate 03/15/2019 Patient Education: Patient Medication Summary Completed 03/15/2019 Visit Plan: Right earache -suspect trigeminal neuralgia- recommend patient have a dental eval to also check tooth that is bothering her on the right upper jaw -discussed treating trigeminal neuralgia if tooth is okay but instructed her to call if symptoms worsen -patient verbalized understanding of plan. 01/08/2019 Appointment: Юлия Rojas WPtel: [phone] [phone] (30 min) Complex 01/08/2019 Patient Education: Patient Medication Summary Completed 01/08/2019 Visit Plan: Right ear pain -concern for trigeminal neuralgia -she does have some sinus tenderness -will give kenalog injection today - continue anti histamine daily -monitor symptoms and call if persistent, worsen o r new symptoms develop. Patient verbalized understanding of plan. 01/01/2019 Appointment: Юлия Rojas WPtel: [phone] [phone] (30 min) Complex 01/01/2019 Patient Education: Patient [...] not improving. 12/18/2018 Appointment: Giuliana Manuel WPtel: [facility] (15 min) Moderate 12/18/2018 Patient Education: Patient [...] back. 09/18/2018 Appointment: Giuliana Manuel WPtel: [phone] [facility] (15 min) Moderate 09/18/2018 Patient Education: Patient [...] spray. 08/31/2018 Appointment: Юлия Rojas WPtel: [phone] [phone] [place] (15 min) Moderate 08/31/2018 Patient Education: [...] improve. 05/22/2018 Appointment: Willow Garcia [phone] [facility] [place] (15 min) Moderate 05/22/2018 Patient Education: Patient [...] improving. 11/18/2017 Appointment: Giuliana Manuel WPtel: [phone] [facility] (15 min) Moderate 11/18/2017 Patient Education: Patient Medication Summary Completed 11/18/2017 Appointment: Giuliana Manuel WPtel: [phone] [facility] (15 min) Moderate 11/07/2017 Visit Plan: Diarrhea [...] not improved. 08/03/2017 Appointment: Willow Garcia WPtel: [phone] [facility] (30 min) Complex 08/03/2017 Patient Education: Patient [...] D daily. 07/05/2017 Appointment: Giuliana Manuel WPtel: [facility] [place] (15 min) Moderate 07/05/2017 Patient Education: Patient Medication Summary Completed 07/05/2017 Patient Education: Obesity Completed 07/05/2017 Appointment: Giuliana Manuel WPtel: [phone] [facility] [place] (15 min) Moderate 06/27/2017 Appointment: Giuliana Manuel WPtel: [phone] [facility] [place] (15 min) Moderate 06/21/2017 Appointment: Юлия Rojas WPtel: [phone] [phone] [place] (30 min) Complex 12/23/2016 Visit Plan: Hypertension - - the sharron fischer's medications have been modified as documented in [...] RESTART HCTZ 12/02/2016 Appointment: Юлия Rojas WPtel: [phone] [place] (30 min) Complex 12/02/2016 Patient Education: [...] 7 days 11/22/2016 Appointment: Giuliana Manuel WPtel: [phone] [facility] (15 min) Moderate 11/22/2016 Patient Education: Patient Medication Summary Completed 11/22/2016 Patient Education: Obesity Completed 11/22/2016 Visit Plan: Influenza - pt started on tamiflu - pt to start on anti-inflammatories, tylenol and monitor symptoms. Pt to call if not improving. Pt to alert any close contacts as to illness. 11/05/2016 Appointment: Willow Garcia WPtel: [phone] [facility] (30 min) Complex 11/05/2016 Patient Education: Patient [...] carafate 07/22/2016 [facility]ment: [phone] ([facility]) Moderate 07/22/2016 Patient Education: Patient Medication Summary Completed 07/22/2016 Patient Education: Obesity Completed 07/22/2016 Care Plan: Referral Order SNOMED-CT : [id number] Pending 07/22/2016 Visit Plan: Hypertension - well [...] Obesity Completed 05/19/2016 Appointment: Giuliana Manuel WPtel: [facility] (15 min) Moderate 05/17/2016 Visit Plan: Hypertension - well con trolled - continue with current medications, continue with no added salt diet. Pt has been encouraged to exercise daily. The pt has been advised to call the office if there are any acute concerns about change in blood pressure readings at home. 02/13/2016 Appointment: Юлия Rojas WPtel: [phone] (30 min) Complex 02/13/2016 Patient Education: Patient [...] Obesity Completed 12/18/2015 Appointment: Giul[facility] Manuel [phone] [facility] ([facility] min) Moderate 12/08/2015 [facility] [address] [facility] Ref[facility] Completed 10/17/2015 Visit Plan: Hypertension [...] stress test. 09/08/2015 Appointment: Giuliana Manuel WPtel: [address] [place], [place] [phone] (15 min) Moderate 09/08/2015 Patient Education: Patient Medication Summary Completed 09/08/2015 Patient Education: .Cervicalgia Neck Pain Completed 09/08/2015 Care Plan: Referral Order SNOMED-CT : [id number] Ordered 09/08/2015 Visit Plan: Hypertension - uncontro [...] checked today. 07/09/2015 Appointment: Giuliana Manuel WPtel: [address] [place], [place] [phone] (15 min) Moderate 07/09/2015 Patient Education: Patient Medication Summary Completed 07/09/2015 Appointment: Giuliana Manuel WPtel: [address] [place], [place] [phone] (15 min) Moderate 07/07/2015 Appointment: Giuliana Manuel WPtel: [address] [place], [place] [phone] [place] Follow up 03/17/2015 Visit Plan: Hypertension - well con trolled - continue with current medications, continue with no added salt diet. Pt has been encouraged to exercise daily. The pt has been advised to call the office if there are any acute concerns about change in blood pressure readings at home. Palpitations resolved. 01/16/2015 Appointment: Giuliana Manuel WPtel: [address] [place], [place] [phone] Other 01/16/2015 Patient Education: Patient Medication Summary Completed 01/16/2015 Patient Education: Hypertension Completed 01/16/2015 Visit Plan: Hypertension - well con seanlled - continue with current medications, continue with [...] pain symptoms. 01/03/2015 Appointment: Giuliana Manuel WPtel: [phone] [facility] Follow up 01/03/2015 Patient Education: Patient Medication Summary Completed 01/03/2015 Patient Education: Hypertension Completed 01/03/2015 Visit Plan: Hypertension - well con seanlled - continue with current medications, continue with [...] Hypertension Completed 09/16/2014 Appointment: Giuliana Manuel WPtel: [phone] [facility] Follow up 09/09/2014 Visit Plan: Hypertension - [...] symptoms worsen. 08/15/2014 Appointment: Giuliana Manuel WPtel: [address] [place], [place] [phone] Sick 08/15/2014 Patient Education: Patient Medication Summary Completed 08/15/2014 Patient Education: Hypertension Completed 08/15/2014 Care Plan: Referral Order SNOMED-CT : [id number] Ordered 08/15/2014 Appointment: Giuliana Manuel WPtel: [address] [place] [address] Follow up 06/18/2014 Visit Plan: Back pain - referral to [facility]. Rash - reaction to soy [...] at home. 06/12/2014 Appointment: Giuliana Manuel WPtel: [address] [place], [place] [phone] Sick 06/12/2014 Patient Education: Patient Medication Summary Completed 06/12/2014 Patient Education: Hypertension Completed 06/12/2014 Care Plan: Referral Order SNOMED-CT : [id number] Ordered 06/12/2014 Visit Plan: Hypertension - well [...] xrays. 03/20/2014 Appointment: Giul[phone] [facility] 03/20/2014 Patient Education: Patient Medication [...] a UTI 12/10/2013 Appointment: Giul[facility] Manuel [phone] Follow [facility] 12/10/2013 Patient Education: Patient Medication [...] times weekly. 09/17/2013 Appointment: Giuliana Manuel [facility]Ptel[phone] [facility] [place] Follow up 09/17/2013 Patient Education: Patient Medication [...] muscle rub. 05/21/2013 Appointment: Giuliana Manuel WPtel: [address] [facility] Follow up 05/21/2013 Patient Education: Patient Medication [...] the vertigo. 01/17/2013 Appointment: Giuliana Manuel WPtel: [address] [facility] Follow up 01/17/2013 Patient Education: Patient Medication [...] if needed. 09/20/2012 Appointment: Giuliana Manuel WPtel: [address] [place], [place] [phone] Follow up 09/20/2012 Patient Education: Patient Medication [...] intolerance begin. 06/08/2012 Appointment: Giuliana Manuel WPtel: [address] [place], [place] [phone] Follow up 06/08/2012 Patient Education: Patient Medication [...] popcorn. 04/10/2012 Appointment: Giul[facility] Manuel [phone] [facility] 04/10/2012 Patient Education: Patient Medication Summary [...] by Tuesday. 03/16/2012 Appointment: Giul[facility] Manuel [facility] [facility] [place] 03/16/2012 Patient Education: Patient Medication Summary [...] this regimen. 02/03/2012 Appointment: Giuliana Manuel [facility]Ptel[phone] [facility] [place] 02/03/2012 Patient Education: Patient Medication [...] a week. 11/04/2011 Appointment: Giul[facility] Manuel [facility]Ptel[phone] Follow [facility] 11/04/2011 Patient Education: Patient Medication [...] shot 07/13/2011 Appointment: Giuliana Manuel WPtel: [address] [facility] Other 07/13/2011 Patient Education: Patient Medication Summary Completed 07/13/2011 Patient Education: .Amazing charts Diabe tic meal planning guide Completed 07/13/2011 Referral: Jared Lafleur [address] [facility] Referral Appointment Requested Referral: Duarte Catalan Referral Appointment Requested Referral: Dr. Willams WPtel: [address] [place], [place] [phone] [place] Referral Initiated Referral: [facility] WPtel: [address] Referral Initiated Instructions Comment . Trigger Points - I njected trigger [...] call if not better by Tuesday. . Neck pain- start p hysical therapy and MRI OF CERVICAL SPINE The pt is to use prn antiinflammatories to manage acute pain. The patient is to call the office if the pain is worsening or does not improve. Diverticulitis - pt started on a liquid diet, and given RX for flagyl and cipro. No seeds, nuts, or popcorn. . Hyperlipidemia - pt has been counseled [...] symptoms not improved on this regimen. . Hypertension - wel l controlled - [...] need to consider a stress test. . Back pain - referr al to [facility]. Rash - reaction to [...] readings at home. . Right earache -karl pect trigeminal neuralgia- recommend patient have a dental eval to also check tooth that is bothering her on the right upper jaw -discussed treating trigeminal neuralgia if tooth is okay but instructed her to call if symptoms worsen -patient verbalized understanding of plan. hold the omega 3 fis h oil [...] office if the symptoms are not improving. . Right knee pain -c ontinue rest, [...] do not improve or if they worsen. apply the voltaren g el to both [...] may need injection into low back. . Hypertension - wel l controlled - continue with current medications, continue with no added salt diet. Pt has been encouraged to exercise daily. The pt has been advised to call the office if there are any acute concerns about change in blood pressure readings at home. Abdominal bloating - recommended gas-ex otc. - cut back on carbonated beverages. . BPPV - Benign Paro xysmal Positional [...] contacts as to illness. . Hypertension - uncontrolled - the patient's [...] pressure readings at home. . Hypertension - unc ontrolled - the [...] not improving. Pt to start on carafate KENALOG CONTINUE BENADRYL AT BEDTIME . Right ear pain -concern for trigeminal neuralgia -she does have some sinus tenderness -will give kenalog injection today -continue anti histamine daily - monitor symptoms and call if persistent, worsen or new symptoms develop. Patient verbalized understanding of plan. increase Atenolol to 1.5 tabs twice daily [...] is to call for acute concerns. . Hyperlipidemia - pt has been counseled [...] of vitamin D once a week. . Hypertension - wel l controlled - [...] tylenol for break through pain symptoms. . Varicose vein -rig ht lower leg [...] TSH and consider treatment if needed. . Sinusitis - Pt has acute infection [...] RTC in 2 weeks for weight check. Continue with atenol ol and HCTZ, Start [...] pain is worsening or does not improve. bland diet, low fat diet, start on [...] 600mg twice daily x 7 days . Abdominal pain - G as and [...] the headaches flu shot pneumonia shot . Hypertension - wel l controlled - [...]
--- NOTE | 2020-01-21 13:57 | Diagnostic Imaging Report ---
Indication: Arrhythmia Portable chest 1:49 PM Heart size and pulmonary vascularity are normal. Lungs are clear. There are no effusions or pneumothoraces. IMPRESSION: Negative chest Dictated by: Dictated on workstation # [id number]
--- OUTSIDE RECORDS SUMMARY | 2020-01-21 13:57 | XMS REPORT | CCD ---
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/08/2015 Marital status Unknown M arried 07/13/[address]: 106867672 Nonsmoker 07/13/[address]: 759288359 Never drinks alcohol 07/13/2011 Allergies, Adverse Reactions, Alerts Substance Reaction Codes Entered Date Inactivated Date Status Soy Unknown 07/13/2011 No Inactive Date Active Cardizem RxNorm: 303904 05/19/2016 No Inactive Date Active Metoprolol Succinate [...] pain ICD-9: 789.00 Active 07/13/2011 Unknown 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 Active 07/13/2011 Unknown OBESITY ICD-9: [...] Abdominal pain ICD-9: 789.00 07/13/2011 Active 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 07/13/2011 Active OBESITY ICD-9: 278.00 07/13/2011 Active Postprandial bloating ICD-9: 787.3 07/13/2011 Active Seasonal allergies ICD- 9: 477.9 07/13/2011 Active VAC STREP PNEUMONIAE -FLU ICD-9: V06.6 07/13/2011 Active Medications Medication Codes Instruc tions Start Date Stop Date Sta tus Fill Instructions doxazosin 1 mg tablet RxNorm: 687435 TAKE 1 TABLET BY MOUTH EVERY DAY AT [facility] 02/27/2019 11/23/2019 Ac tive - Ref: [id number] hydrochlorothiazide 12.5 mg tablet RxNorm: 681328 TAKE 1 TABLET BY MOUT H EVERY DAY 02/27/2019 11/23/2019 Ac tive - Ref: [id number] famotidine 40 mg tablet RxNorm: 617726 TAKE 1 TABLET BY MOUTH EVERY MORNING 02/27/2019 11/23/2019 Ac tive - Ref: [id number] Kenalog 40 mg/mL karl pension for injection RxNorm: 6036794 Milliliter(s) Inj 01/01/2019 01/01/2019 In active losartan 25 mg tablet RxNorm: 326915 1 Tablet(s) PO BID 11/01/2018 10/26/2019 Active losartan 25 mg tablet RxNorm: 143347 1 Tablet(s) PO BID 11/01/2018 10/31/2018 Inactive hydrochlorothiazide 12.5 mg tablet RxNorm: 515131 TAKE 1 TABLET BY MOUT H EVERY DAY 10/02/2018 02/26/2019 In active - First Attempt Ref: [id number] famotidine 40 mg tablet RxNorm: 843091 TAKE 1 TABLET BY MOUTH EVERY MORNING 10/02/2018 02/26/2019 In active - First Attempt Ref: [id number] doxazosin 1 mg tablet RxNorm: 499782 TAKE 1 TABLET BY MOUTH EVERY DAY AT [facility] 10/02/2018 02/26/2019 Inactive - First Attempt Ref: [id number] naproxen 500 mg tablet RxNorm: 481185 1 Tablet(s) PO BID 09/18/2018 09/24/2018 Inactive diclofenac 1 % topic al gel RxNorm: 585088 2 Application TOP QID 09/18/2018 11/16/2018 Inactive Kenalog 40 mg/mL karl pension for injection RxNorm: 3208699 1 Milliliter(s) Inj 08/31/2018 08/31/2018 In active clonidine HCl 0.1 mg tablet RxNorm: 601866 1/2 Tablet(s) PO BID 08/16/2018 08/10/2019 Active amoxicillin 500 mg t ablet RxNorm: 477707 1 Tablet(s) PO TID 08/14/2018 08/20/2018 Inactive losartan 25 mg tablet RxNorm: 865457 1 Tablet(s) PO BID 05/02/2018 05/01/2018 Inactive losartan 25 mg tablet RxNorm: 230663 1 Tablet(s) PO BID 05/02/2018 10/31/2018 Inactive losartan 25 mg tablet RxNorm: 707430 1 Tablet(s) PO BID 01/30/2018 05/01/2018 Inactive Vitamin D 2,000 unit capsule RxNorm: 1 Capsule(s) PO daily 11/18/2017 No Stop Date Active atenolol 25 mg tablet RxNorm: 898607 1 Tablet(s) PO daily 11/18/2017 11/12/2018 Inactive atenolol 25 mg tablet RxNorm: 364220 1 Tablet(s) PO BID managed by Dr Lafleur 11/18/2017 11/17/2017 In active clonidine HCl 0.1 mg tablet RxNorm: 496288 1/2 Tablet(s) PO BID 11/18/2017 08/15/2018 Inactive doxazosin 1 mg tablet RxNorm: 387307 1 Tablet(s) PO daily at midnight 11/18/2017 10/01/2018 In active midnight losartan 25 mg tablet RxNorm: 416192 1 Tablet(s) PO BID 11/18/2017 01/29/2018 Inactive hydrochlorothiazide 12.5 mg tablet RxNorm: 025827 1 Tablet(s) PO daily 11/18/2017 10/01/2018 In active famotidine 40 mg tablet RxNorm: 914032 1 Tablet(s) PO daily TAKE 1 TABLET BY [facility] EVERY MORNING 11/18/2017 10/01/2018 Inactive - Ref: [id number] hydrochlorothiazide 12.5 mg tablet RxNorm: 389733 1 Tablet(s) PO daily 10/28/2017 11/17/2017 In active famotidine 40 mg tablet RxNorm: 928276 TAKE 1 TABLET BY MOUTH EVERY MORNING 10/04/2017 11/17/2017 In active - Ref: [id number] clonidine HCl 0.1 mg tablet RxNorm: 442901 1/2 Tablet(s) PO BID 07/05/2017 11/17/2017 Inactive doxazosin 1 mg tablet RxNorm: 115073 1 Tablet(s) PO daily at midnight 07/05/2017 11/17/2017 In active midnight doxazosin 1 mg tablet RxNorm: 429718 1 Tablet(s) PO BID 12/02/2016 2017 Inactive midnight prednisone 20 mg tablet RxNorm: 246287 3 Tablet(s) PO daily 11/22/2016 11/26/2016 Inactive Tessalon Perles 100 mg capsule RxNorm: 549354 1 -2 Capsule(s) PO TI D as needed cough 11/19/2016 12/31/2018 Inactive Zithromax Z-Jeff 250 mg tablet RxNorm: 406567 1 Tablet(s) PO UD 11/19/2016 12/01/2016 Inactive z pack as directed Tamiflu 75 mg capsule RxNorm: 129529 1 Capsule(s) PO BID 11/05/2016 11/09/2016 Inactive Kenalog 40 mg/mL karl pension for injection RxNorm: 1092852 Milliliter(s) Inj 11/05/2016 11/05/2016 In active Tessalon Perles 100 mg capsule RxNorm: 906128 1 -2 Capsule(s) PO TI D as needed cough 11/04/2016 11/18/2016 Inactive famotidine 40 mg tablet RxNorm: 703051 1 Tablet(s) PO QAM 10/25/2016 10/03/2017 Inactive famotidine 40 mg tablet RxNorm: 542249 1 Tablet(s) PO QAM 08/02/2016 10/24/2016 Inactive Carafate 1 gram tablet RxNorm: 801162 1 Tablet(s) PO TID DISSOLVE THE PILL IN 10ML OF WATER 07/22/2016 10/19/2016 Inactive clonidine HCl 0.1 mg tablet RxNorm: 796056 1 Tablet(s) PO BID an d 1 tablet as needed 07/22/2016 12/01/2016 Inactive Cinnamon 1000 mg RxNorm: 1 PO daily 05/19/2016 No Stop Date Active aspirin 81 mg tablet ,delayed release RxNorm: 160966 1 Tablet(s) PO QHS 05/19/2016 11/27/2018 In active losartan 25 mg tablet RxNorm: 912516 1 Tablet(s) PO BID 05/19/2016 11/17/2017 Inactive atenolol 25 mg tablet RxNorm: 643621 1.5 Tablet(s) PO BID 02/13/2016 07/21/2016 Inactive losartan 25 mg tablet RxNorm: 472156 2 Tablet(s) PO BID 01/13/2016 05/11/2016 Inactive Cardizem CD 240 mg c apsule,extended release RxNorm: 904857 1 Capsule(s) PO daily 01/13/2016 02/12/2016 In active losartan 100 mg tablet RxNorm: 573571 1/2 Tablet(s) PO BID 01/08/2016 01/12/2016 Inactive losartan 25 mg tablet RxNorm: 300494 2 Tablet(s) PO QPM 1 Tablet(s) PO QPM 12/18/2015 01/07/2016 In active atenolol 25 mg tablet RxNorm: 546127 1.5 Tablet(s) PO BID TAKE ONE TABLET BY MOUTH TWICE A DAY 12/18/2015 01/12/2016 Inactive atenolol 25 mg tablet RxNorm: 950441 Tablet(s) TAKE ONE TABLET BY MOUTH TWICE A DAY 11/14/2015 12/17/2015 Inactive losartan 25 mg tablet RxNorm: 703906 Tablet(s) 1 Tablet(s) PO QPM 11/14/2015 12/17/2015 Inactive spironolactone 25 mg tablet RxNorm: 198323 1 Tablet(s) PO daily 11/14/2015 12/14/2015 Inactive atenolol 25 mg tablet RxNorm: 273913 TAKE ONE TABLET BY MOUTH TWICE A DAY 08/07/2015 11/13/2015 In active atenolol 25 mg tablet RxNorm: 090141 1 Tablet(s) PO daily TAKE ONE TABLET BY MOUTH TWICE DAILY 08/06/2015 08/06/2015 Inactive Generic For:TENORMIN 25 MG TABLET 05/05/2015 10:00:22 AM atenolol 25 mg tablet RxNorm: 348976 1 Tablet(s) PO daily TAKE ONE TABLET BY MOUTH TWICE DAILY 08/06/2015 08/05/2015 Inactive Generic For:TENORMIN 25 MG TABLET 05/05/2015 10:00:22 AM betamethasone diprop ionate 0.05 % topical ointment RxNorm: 257126 1 TOP TID as needed rash 07/09/2015 05/18/2016 Inactive betamethasone diprop ionate 0.05 % topical ointment RxNorm: 967336 1 TOP TID as needed rash 07/09/2015 07/08/2015 Inactive spironolactone 25 mg tablet RxNorm: 978276 1 Tablet(s) PO daily 07/09/2015 07/08/2015 Inactive spironolactone 25 mg tablet RxNorm: 069637 1 Tablet(s) PO daily 07/09/2015 11/13/2015 Inactive losartan 25 mg tablet RxNorm: 560354 Tablet(s) 1 Tablet(s) PO QPM 05/27/2015 11/13/2015 Inactive atenolol 25 mg tablet RxNorm: 697634 TAKE ONE TABLET BY MOUTH TWICE DAILY 05/05/2015 08/05/2015 In active Generic For:TENORMIN 25 MG TABLET 05/05 10:00:22 AM hydrochlorothiazide 25 mg tablet RxNorm: 539033 1/2 Tablet(s) PO BID 02/17/2015 07/08/2015 Inactive Generic For:HYDRODIURIL 25 MG TABLET sulfamethoxazole 800 mg-trimethoprim 160 mg tablet RxNorm: 625929 1 Tablet(s) PO BID 01/16/2015 01/25/2015 Inactive losartan 25 mg tablet RxNorm: 468754 1 Tablet(s) PO QPM 12/09/2014 05/26/2015 Inactive Kenalog 40 mg/mL karl pension for injection RxNorm: 6238613 1 Milliliter(s) Inj 09/16/2014 09/16/2014 In active prednisone 20 mg tablet RxNorm: 547916 3 Tablet(s) PO daily 09/16/2014 09/18/2014 Inactive losartan 25 mg tablet RxNorm: 269866 1 Tablet(s) PO QPM 08/15/2014 12/08/2014 Inactive hydrochlorothiazide 25 mg tablet RxNorm: 163443 TAKE 1/2 TABLET BY MO [facility] TWICE DAILY 08/13/2014 02/08/2015 Inactive Generic For:HYDRODIURIL 25 MG TABLET atenolol 25 mg tablet RxNorm: 997056 TAKE ONE TABLET BY MOUTH TWICE DAILY 05/07/2014 05/01/2015 In active Generic For:TENORMIN 25 MG TABLET ketorolac 60 mg/2 mL intramuscular solution RxNorm: 777112 2 Milliliter(s) IM 03/20/2014 03/20/2014 In active hydrochlorothiazide 25 mg tablet RxNorm: 605546 Tablet(s) PO TAKE 1/2 TABLET BY MOUTH TWICE DAILY 02/14/2014 08/12/2014 Inactive Generic For:HYDRODIURIL 25 MG TABLET Generic For:HYDRODIURIL 25 MG TABLET 02/14/2014 3:45:03 PM atorvastatin 10 mg t ablet RxNorm: 712736 1 Tablet(s) PO TIW 09/17/2013 03/19/2014 Inactive atorvastatin 10 mg t ablet RxNorm: 630772 tablet oral 09/17/2013 06/04/2015 Inactive hydrochlorothiazide 25 mg tablet RxNorm: 329992 Tablet(s) PO TAKE 1/2 TABLET BY MOUTH TWICE DAILY 08/06/2013 02/13/2014 Inactive Generic For:HYDRODIURIL 25 MG TABLET Generic For:HYDRODIURIL 25 MG TABLET 08/06/2013 1:52:35 PM amoxicillin 500 mg t ablet RxNorm: 706959 2 Tablet(s) PO 2 tabl ets PO 1 hour before dental procedure. 07/26/2013 07/25/2013 Inactive amoxicillin 500 mg t ablet RxNorm: 963878 2 Tablet(s) PO 2 tabl ets PO 1 hour before dental procedure. 07/26/2013 07/26/2013 Inactive methotrexate sodium 2.5 mg tablet RxNorm: 843207 tablet oral 07/13/2013 01/15/2015 Inactive atenolol 25 mg tablet RxNorm: 237400 Tablet(s) PO TAKE ONE TABLET BY MOUTH TW ICE DAILY 05/01/2013 05/06/2014 Inactive Generic For:TENORMIN 25 MG TABLET hydrochlorothiazide 25 mg tablet RxNorm: 032034 Tablet(s) PO TAKE 1/2 TABLET BY MOUTH TWICE DAILY 11/21/2012 08/05/2013 Inactive Generic For:HYDRODIURIL 25 MG TABLET atenolol 25 mg tablet RxNorm: 998682 Tablet(s) PO TAKE ONE TABLET BY MOUTH TW ICE DAILY 10/02/2012 04/30/2013 Inactive Generic For:TENORMIN 25 MG TABLET gemfibrozil 600 mg t ablet RxNorm: 068428 1 Tablet(s) PO BID 06/08/2012 10/08/2012 Inactive meclizine 25 mg tablet RxNorm: 6352046 1 Tablet(s) PO Q4 PRN 06/08/2012 09/05/2012 Inactive prednisone 10 mg Tab RxNorm: 192958 2 Tablet(s) PO daily 03/16/2012 03/20/2012 Inactive atorvastatin 10 mg Tab RxNorm: 028860 1 Tablet(s) PO daily 12/21/2011 12/20/2011 Inactive atorvastatin 10 mg Tab RxNorm: 027963 1 Tablet(s) PO daily 12/21/2011 06/08/2012 Inactive methotrexate sodium 2.5 mg Tab RxNorm: 923142 Tablet(s) PO 11/16/2011 06/12/2012 Inactive 3 on tuesday3 on hydrochlorothiazide 25 mg Tab RxNorm: 729283 1/2 Tablet(s) PO BID 11/01/2011 11/24/2012 Inactive hydrochlorothiazide 12.5 mg Cap RxNorm: 219512 Capsule(s) PO 11/01/2011 06/08/2012 Inactive TAKE ONE TABLET BY MOUTH TWICE DAILY;Gen sky For:MICROZIDE 12.5 MG CAPSULE hydrochlorothiazide 25 mg Tab RxNorm: 295564 1/2 Tablet(s) PO BID 11/01/2011 11/24/2012 Inactive hydrochlorothiazide 25 mg tablet RxNorm: 766510 1/2 Tablet(s) PO BID 11/01/2011 10/31/2011 Inactive hydrochlorothiazide 25 mg Tab RxNorm: 221327 1/2 Tablet(s) PO BID 11/01/2011 10/31/2011 Inactive atenolol 25 mg tablet RxNorm: 472997 Tablet(s) PO 10/04/2011 10/01/2012 Inactive TAKE ONE TABLET BY MOUTH TWICE DAILY;Generic For:TENORMIN 25 MG TABLET hydrochlorothiazide 12.5 mg Cap RxNorm: 403948 1 Capsule(s) PO BID 09/13/2011 10/31/2011 Inactive Influenza Virus Vacc ine 0.5 mL RxNorm: IM 07/13/2011 07/13/2011 Inactive Pneumovax 23 25 mcg/ 0.5 mL Injection RxNorm: 805616 Milliliter(s) Inj 07/13/2011 07/13/2011 In active vitamin B complex oral RxNorm: 22339 oral No Start Date Active Cinnamon 1000 mg RxNorm: 2 PO daily No Start Date Active atenolol 25 mg Tab RxNorm: 067868 1 Tablet(s) PO BID No Start Date 10/03/2011 Inactive niacin ER 500 mg Cap RxNorm: 880506 1 Capsule(s) PO daily No Start Date 06/08/2012 Inactive gemfibrozil 600 mg t ablet RxNorm: 433256 1 Tablet(s) PO BID No Start Date 06/07/2012 Inactive Vitamin C 500 mg Tab RxNorm: 959270 1 Tablet(s) PO daily No Start Date 07/21/2016 Inactive Zithromax Z-Jeff 250 mg tablet RxNorm: 219729 1 Tablet(s) PO UD No Start Date 11/18/2016 Inactive z pack as directed doxazosin 1 mg tablet RxNorm: 572344 1 Tablet(s) PO BID No Start Date 12/01/2016 Inactive vitamin E (dl, aceta te) 400 unit Cap RxNorm: 507342 1 Capsule(s) PO daily No Start Date 07/21/2016 Inactive famotidine 40 mg tablet RxNorm: 161211 1 Tablet(s) PO QAM No Start Date 08/01/2016 Inactive Phenergan VC-Codeine 6.25 mg-5 mg-10 mg/5 mL syrup RxNorm: 309884 5 Milliliter(s) PO Q6 as needed No Start Date 12/31/2018 Inactive hydrochlorothiazide 25 mg Tab RxNorm: 062212 1/2 Tablet(s) PO BID No Start Date 09/12/2011 Inactive Tessalon Perles 100 mg capsule RxNorm: 611743 1 -2 Capsule(s) PO TI D as needed cough No Start Date 11/03/2016 Inactive aspirin 81 mg Tab, D elayed Release RxNorm: 519866 1 Tablet(s) PO every other day No Start Date 05/18/2016 Inactive Cinnamon 1000 mg RxNorm: 2 PO daily No Start Date 05/18/2016 Inactive clonidine HCl 0.1 mg tablet RxNorm: 064094 1 Tablet(s) PO QHS an d 1 Tablet as needed No Start Date 07/21/2016 Inactive Rosalia 3 Cap RxNorm: 1 Capsule(s) PO BID No Start Date 12/31/2018 Inactive niacin 500 mg tablet RxNorm: 271019 1 Tablet(s) PO QHS No Start Date 01/01/2015 Inactive multivitamin Tab RxNorm: 1 Tablet(s) PO daily No Start Date 07/21/2016 Inactive methotrexate sodium 2.5 mg Tab RxNorm: 150278 Tablet(s) PO No Start Date 11/15/2011 Inactive 3 on tuesday3 on T-Bio RxNorm: 1 PO daily No Start Date 05/18/2016 Inactive Vitamin D 2,000 unit Cap RxNorm: 1 Capsule(s) PO daily No Start Date 07/21/2016 Inactive hydrochlorothiazide 12.5 mg tablet RxNorm: 734324 1 Tablet(s) PO daily No Start Date 10/27/2017 Inactive Medication Administered Medication Codes Instruc tions Start Date Status Kenalog 40 mg/mL suspension for injection RxNorm: 2372188 Milliliter 01/01/2019 No longer Active Kenalog 40 mg/mL suspension for injection RxNorm: 8367264 1Milliliter 08/31/2018 N o longer Active Kenalog 40 mg/mL suspension for injection RxNorm: 6924063 Milliliter 11/05/2016 No longer Active Kenalog 40 mg/mL suspension for injection RxNorm: 9180442 1Milliliter 09/16/2014 N o longer Active ketorolac 60 mg/2 mL intramuscular solution RxNorm: 794564 2Milliliter 03/20/2014 N o longer Active Influenza Virus Vaccine 0.5 mL RxNorm: 07/13/2011 No longer Active Pneumovax 23 25 mcg/0.5 mL Injection RxNorm: 832826 Milliliter 07/13/2011 No longer Active Immunizations Vaccine [...] 02/03/2012 VITAMIN DEFICIENCY ICD-9: 269.2 11/04/2011 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 07/13/2011 Postprandial bloating ICD-9: 787.3 [...] Ord64 K 3.8 mEq/L 12/06/2016 Comp Metabolic Vue265 NA 134 mEq/L 12/03/2016 Comp Metabolic Gmz396 K Specimen 3+ Hemolyzed mEq/L 12/04/19 17 Comp Metabolic Oii587 CL 106 mEq/L 12/03/2016 Comp Metabolic Egx678 CO2 20.0 mEq/L 12/03/2016 Comp Metabolic Hxb822 AN ION GAP 16 12/03/2016 Comp Metabolic Vlv590 GL UCOSE 93 mg/dL 12/03/2016 Comp Metabolic Rhy735 Cr eat 0.8 mg/dL 12/03/2016 Comp Metabolic Jhu296 eG FR 73 ml/min/1.73m2 12/03 Comp Metabolic Ktc578 BUN 14 mg/dL 12/03/2016 Comp Metabolic Xod605 B/ C Ratio 17.1 Ratio 12/03/2016 Comp Metabolic Wln065 CA LCIUM 9.3 mg/dL 12/03/2016 Comp Metabolic Qrn046 AL K PHOS 63 U/L 12/03/2016 Comp Metabolic Goo634 T(SGOT) 69 U/L 12/03/2016 Comp Metabolic Clx704 AL T(SGPT) 33 U/L 12/03/2016 Comp Metabolic Wqj391 BI LI T 1.0 mg/dL 12/03/2016 Comp Metabolic Unr742 AL BUMIN 4.3 g/dL 12/03/2016 Comp Metabolic Qst049 TP RO 6.7 g/dL 12/03/2016 Comp Metabolic Lzw630 GL OB 2.4 g/dL 12/03/2016 Comp Metabolic Mfm278 A/ G Ratio 1.7 Ratio 12/03/2016 Comp Metabolic Qsb890 Os mo 268 mOsmo 12/03/2016 Comp Metabolic Ydj771 NA 138 mEq/L 12/18/2015 Comp Metabolic Buf801 K 4.1 mEq/L 12/18/2015 Comp Metabolic Gmb922 CL 104 mEq/L 12/18/2015 Comp Metabolic Fik751 CO2 22.0 mEq/L 12/18/2015 Comp Metabolic Tnp647 AN ION GAP 16 12/18/2015 Comp Metabolic Sln108 GL UCOSE 89 mg/dL 12/18/2015 Comp Metabolic Mgc598 Cr eat 0.6 mg/dL 12/18/2015 Comp Metabolic Lrl395 eG FR 99 ml/min/1.73m2 12/17 Comp Metabolic Nme237 BUN 15 mg/dL 12/18/2015 Comp Metabolic Eoi769 B/ C Ratio 23.8 Ratio 12/18/2015 Comp Metabolic Bsd389 CA LCIUM 10.4 mg/dL 12/18/2015 Comp Metabolic Uvr372 AL K PHOS 77 U/L 12/18/2015 Comp Metabolic Ajf117 T(SGOT) 19 U/L 12/18/2015 Comp Metabolic Dnn010 AL T(SGPT) 17 U/L 12/18/2015 Comp Metabolic Ffe171 BI LI T 0.8 mg/dL 12/18/2015 Comp Metabolic Awl642 AL BUMIN 4.3 g/dL 12/18/2015 Comp Metabolic Sfo470 TP RO 6.7 g/dL 12/18/2015 Comp Metabolic Yld193 GL OB 2.4 g/dL 12/18/2015 Comp Metabolic Erc733 A/ G Ratio 1.7 Ratio 12/18/2015 Comp Metabolic Kkx945 Os mo 276 mOsmo 12/18/2015 Cbc With [...] 29.5 pg 12/18/2015 Cbc With Differential Ord2 Phillips% 9.4 % 12/18/2015 Cbc With Differential Ord2 [...] 2.57 K/ul 12/18/2015 Cbc With Differential Ord2 Phillips ABS# 0.8 K/ul 12/18/2015 Cbc With Differential Ord2 Eos ABS# 0.1 K/ul 12/18/2015 Cbc With Differential Ord2 Baso ABS# 0.0 K/ul 12/18/2015 Cbc With Differential Ord2 New Analyzer Notice Please note new ref ranges s tarting 10-15-2015 due to implemntation of new five part differential hematolgy analyzer. 12/18/2015 Total T3 Ord42 TT3 1.0 ng/ml 07/10/2015 Free T4 Aan357 FREE T4 0.90 ng/dL 07/09/2015 Free T3 Jcf878 Free T3 2.92 pg/ml 07/09/2015 Tsh Ord6 hTSH II 1.18 uIU/mL 07/09/2015 URINALYSIS NONAUTO W/O SCOPE 36168 Specific [place] 1.005 DateTime(Free Text in Apr) URINALYSIS NONAUTO W/O SCOPE 89692 PH 6 DateTime(Free Text in Apr) URINALYSIS NONAUTO W/O SCOPE 18073 GLUCOSE neg DateTime(Free Dano t in Aprima) URINALYSIS NONAUTO W/O SCOPE 72350 Protein neg DateTime(Free Dano t in Aprima) URINALYSIS NONAUTO W/O SCOPE 01540 Blood neg DateTime(Free Dano t in Apr) URINALYSIS NONAUTO W/O SCOPE 80395 Bilirubin neg DateTime(Free Dano t in Apr) URINALYSIS NONAUTO W/O SCOPE 15131 Ketones neg DateTime(Free Dano t in Apr) URINALYSIS NONAUTO W/O SCOPE 27080 Urobilinogen neg DateTime(Free Text in ) URINALYSIS NONAUTO W/O SCOPE 89704 Nitrite neg DateTime(Free Dano t in Apr) URINALYSIS NONAUTO W/O SCOPE 12784 Leukocytes neg DateTime(Free Text in ) Review [...] nocturia 07/05/2017 Neurologic dizziness 12/2016 Neurologic headache 10/12/2016 Dermatologic No rash 12/2016 Dermatologic No sores [...] No constipation 02/13/2016 Neurologic dizziness Neurologic headache /1 12/2015 Constitutional No recent illness 01/13/2016 Constitutional No [...] clear 05/21/2013 None Full Exam - General 1995 Ears/Nose/Throat oral cavity/pharynx/larynx Overall: oropharyngeal mucosa clear 05/21/2013 None Full Exam - General 1995 Ears/Nose/Throat oral cavity/pharynx/larynx Overall: no masses 05/21/2013 [...] atraumatic 06/08/2012 None Full Exam - General 1995 Neurologic gait Conventional walking: ataxic rhythm 06/08/2012 None Full Exam - General 1995 Neurologic gait Conventional walking: wide-based 06/08/2012 None Full Exam - General 1994 Neurologic cranial nerves Overall: crainial nerves 2 - 12 grossly intact 06/08/2012 None Full Exam - General 1994 Psychiatric orientation/consciousness Overall: oriented to person, place and time 06/08/2012 None Full Exam - General 1994 Psychiatric mood and affect Overall: normal mood and affect 06/08/2012 None Full Exam - General 1995 Ears/Nose/Throat oral cavity/pharynx/larynx Overall: oropharyngeal mucosa clear 06/08/2012 None Full Exam - General 1995 Ears/Nose/Throat oral cavity/pharynx/larynx Overall: no masses 06/08/2012 None Full Exam - General 1995 Ears/Nose/Throat oral cavity/pharynx/larynx Overall: oral mucosa clear 06/08/2012 None Full Exam - General 1994 Ears/Nose/Throat otoscopic exam Overall: tympanic membranes clear 06/08/2012 None Full Exam - General 1995 Ears/Nose/Throat otoscopic exam Overall: external auditory canals [...] nourished 11/04/2011 None Full Exam - General 1995 Constitutional general appearance Overall: well developed 11/04/2011 [...] rate 11/04/2011 None Full Exam - General 1995 Cardiovascular [...] Formatting Model/CDA Sections, Assigned to/Kimberley Fagan CPT-4: 45428Ntzocdl 07/06/2018 ADMIN INFLUENZA VIRU S VAC CPT-4: G0008 07/05/2017 FLU VACC PRSV FREE I NC ANTIG CPT-4: 16257 07/05/2017 THER/PROPH/DIAG INJ SC/IM CPT-4: 90352 11/05/2016 TRIAMCINOLONE ACET I NJ NOS CPT-4: J3301 11/05/2016 TRIAMCINOLONE ACET I [place] NOS CPT-4: J3301 09/16/2014 DRAIN/INJECT JOINT/B URSA CPT-4: 73002 09/16/2014 KETOROLAC TROMETHAMI NE INJ CPT-4: J1885 03/20/2014 URINALYSIS NONAUTO W /O SCOPE CPT-4: 09042 12/10/2013 PRESCRIP TRANSMIT A ERX SY CPT-4: G8553 09/17/2013 PRESCRIP TRANSMIT A ERX SY CPT-4: G8553 06/08/2012 TRIAMCINOLONE ACET I [place] NOS CPT-4: J3301 03/16/2012 INJ TRIGGER POINT 1/ 2 MUSCL CPT-4: 10159 03/16/2012 PRESCRIP TRANSMIT A ERX SY CPT-4: G8553 03/16/2012 ADMIN INFLUENZA VIRU S VAC CPT-4: G0008 07/13/2011 FLULAVAL VACC, 3 YRS & >, IM CPT-4: Q2036 07/13/2011 ADMIN PNEUMOCOCCAL V ACCINE SNOMED CT: [id number] CPT-4: G0009 07/13/2011 Pneumococcal Polysac charide Vaccine, 23-Valent, Ad CPT-4: 23289 07/13/2011 Vital Signs Date Vital 03/20/2019 Blood Pressure 1: 134/84 Code: 8480-6 BMI: 36.7 Code: 79839-8 Heart Rate 1: 63 bpm Height: 5'3" SpO2: 97% Weight: 207 lbs 03/15/2019 Blood Pressure 1: 138/76 Code: 8480-6 BMI: 36.7 Code: 40518-1 Heart Rate 1: 64 bpm Height: 5'3" SpO2: 98% Weight: 207 lbs 01/08/2019 Blood Pressure 1: 128/70 Code: 8480-6 Heart Rate 1: 67 bpm SpO2: 97% 01/01/2019 Blood Pressure 1: 138/80 Code: 8480-6 BMI: 36.3 Code: 33234-6 Heart Rate 1: 64 bpm Height: 5'3" SpO2: 98% Weight: 205 lbs 12/18/2018 Blood Pressure 1: 120/62 Code: 8480-6 BMI: 36.0 Code: 85129-0 Heart Rate 1: 67 bpm Height: 5'3" SpO2: 97% Weight: 203 lbs 09/18/2018 Blood Pressure 1: 126/70 Code: 8480-6 BMI: 36.3 Code: 38268-6 Heart Rate 1: 58 bpm Height: 5'3" SpO2: 98% Weight: 205 lbs 08/31/2018 Blood Pressure 1: 148/76 Code: 8480-6 BMI: 37.0 Code: 18605-6 Heart Rate 1: 60 bpm Height: 5'3" SpO2: 98% Weight: 209 lbs 08/14/2018 Blood Pressure 1: 140/80 Code: 8480-6 BMI: 37.2 Code: 72114-0 Heart Rate 1: 76 bpm Height: 5'3" SpO2: 96% Weight: 210 lbs 05/22/2018 Blood Pressure 1: 150/62 Code: 8480-6 BMI: 36.7 Code: 23937-9 Heart Rate 1: 74 bpm Height: 5'3" SpO2: 98% Weight: 207 lbs 11/18/2017 Blood Pressure 1: 122/66 Code: 8480-6 BMI: 35.8 Code: 28922-0 Heart Rate 1: 59 bpm Height: 5'3" SpO2: 97% Weight: 202 lbs 08/03/2017 Blood Pressure 1: 122/60 Code: 8480-6 BMI: 36.0 Code: 01127-2 Heart Rate 1: 60 bpm Height: 5'3" SpO2: 97% Weight: 203 lbs 07/05/2017 Blood Pressure 1: 140/76 Code: 8480-6 BMI: 36.0 Code: 28260-7 Heart Rate 1: 58 bpm Height: 5'3" SpO2: 98% Weight: 203 lbs 12/02/2016 Blood Pressure 1: 122/70 Code: 8480-6 BMI: 34.4 Code: 85172-8 Heart Rate 1: 66 bpm Height: 5'3" SpO2: 99% Temperature: 36.4 (C ) / 97.5 (F) Weight: 194 lbs 11/22/2016 Blood Pressure 1: 102/60 Code: 8480-6 BMI: 34.2 Code: 14397-4 Heart Rate 1: 110 bpm Height: 5'3" SpO2: 98% Temperature: 36.7 (C ) / 98.0 (F) Weight: 193 lbs 11/05/2016 Blood Pressure 1: 140/62 Code: 8480-6 BMI: 36.1 Code: 41277-4 Heart Rate 1: 102 bpm Height: 5'3" SpO2: 97% Temperature: 37.1 (C ) / 98.7 (F) Weight: 204 lbs 07/22/2016 Blood Pressure 1: 158/80 Code: 8480-6 Blood Pressure 1: 160/76 Code: 8480-6 BMI: 36.8 Code: 25498-6 Heart Rate 1: 56 bpm Height: 5'3" SpO2: 98% Weight: 208 lbs 05/19/2016 Blood Pressure 1: 150/78 Code: 8480-6 Blood Pressure 1: 122/69 Code: 8480-6 BMI: 37.0 Code: 25965-0 Heart Rate 1: 61 bpm Height: 5'3" SpO2: 98% Weight: 209 lbs 02/13/2016 Blood Pressure 1: 140/76 Code: 8480-6 BMI: 36.8 Code: 70799-7 Heart Rate 1: 64 bpm Height: 5'3" SpO2: 97% Weight: 208 lbs 01/13/2016 Blood Pressure 1: 170/70 Code: 8480-6 BMI: 36.8 Code: 79810-3 Heart Rate 1: 65 bpm Height: 5'3" SpO2: 95% Weight: 208 lbs 01/02/2016 Blood Pressure 1: 150/88 Code: 8480-6 BMI: 36.8 Code: 58603-5 Heart Rate 1: 61 bpm Height: 5'3" SpO2: 98% Weight: 208 lbs 12/18/2015 Blood Pressure 1: 148/90 Code: 8480-6 BMI: 37.6 Code: 90887-0 Heart Rate 1: 64 bpm Height: 5'3" SpO2: 96% Weight: 212 lbs 09/08/2015 Blood Pressure 1: 130/88 Code: 8480-6 BMI: 37.0 Code: 24793-8 Heart Rate 1: 62 bpm Height: 5'3" SpO2: 97% Weight: 209 lbs 07/09/2015 Blood Pressure 1: 142/82 Code: 8480-6 BMI: 36.4 Code: 82080-3 Heart Rate 1: 66 bpm Height: 5'3" SpO2: 97% Weight: 205 lbs 5 oz 01/16/2015 Blood Pressure 1: 122/80 Code: 8480-6 BMI: 35.6 Code: 19744-5 Heart Rate 1: 67 bpm Height: 5'3" SpO2: 98% Weight: 201 lbs 01/03/2015 Blood Pressure 1: 122/70 Code: 8480-6 BMI: 35.6 Code: 16451-3 Heart Rate 1: 61 bpm Height: 5'3" Respiratory Rate: 16 bpm SpO2: 98% Weight: 201 lbs 09/16/2014 Blood Pressure 1: 132/78 Code: 8480-6 BMI: 34.9 Code: 70217-3 Heart Rate 1: 56 bpm Height: 5'3" Weight: 197 lbs 08/15/2014 Blood Pressure 1: 152/80 Code: 8480-6 Blood Pressure 2: 160/82 Code: 8480-6 BMI: 34.0 Code: 27871-2 Heart Rate 1: 75 bpm Height: 5'3" Weight: 192 lbs 06/12/2014 Blood Pressure 1: 136/82 Code: 8480-6 BMI: 34.9 Code: 00813-8 Heart Rate 1: 58 bpm Height: 5'3" SpO2: 96% Weight: 197 lbs 03/20/2014 Blood Pressure 1: 140/72 Code: 8480-6 BMI: 34.9 Code: 94146-0 Heart Rate 1: 60 bpm Height: 5'3" Weight: 197 lbs 12/10/2013 Blood Pressure 1: 132/78 Code: 8480-6 BMI: 35.1 Code: 16167-5 Heart Rate 1: 68 bpm Height: 5'3" Weight: 198 lbs 09/17/2013 Blood Pressure 1: 128/78 Code: 8480-6 BMI: 34.9 Code: 90827-2 Heart Rate 1: 68 bpm Height: 5'3" Weight: 197 lbs 05/21/2013 Blood Pressure 1: 128/82 Code: 8480-6 BMI: 35.6 Code: 92131-7 Heart Rate 1: 80 bpm Height: 5'3" Weight: 201 lbs 01/17/2013 Blood Pressure 1: 138/72 Code: 8480-6 BMI: 36.7 Code: 31526-9 Heart Rate 1: 60 bpm Height: 5'3" [...] 1: 140/78 Code: 8480-6 BMI: 40.0 Code: 08400-5 Heart Rate 1: 64 bpm Height: 5'3" Respiratory Rate: 16 bpm Weight: 226 lbs 11/04/2011 Blood Pressure 1: 136/76 Code: 8480-6 Heart Rate 1: 68 bpm Respiratory Rate: 16 bpm Weight: 226 lbs 07/13/2011 Blood Pressure 1: 142/80 Code: 8480-6 BMI: 40.0 Code: 54486-6 Heart Rate 1: 60 bpm Height: 5'4" [...] ngoing 03/15/2019 None Onset of Symptom _ [place] 03/15/2019 None Limitation on Activities does not limit activities 03/15/2019 None Frequency of Episodes unchanged 03/15/2019 None Location right ear 01/08/2019 None Quality acute 01/08/2019 None Onset and Resolution o ngoing 01/08/2019 None Onset of Symptom _ [place] ago 01/08/2019 None Severity mild 01/08/2019 [...] ago 03/16/2012 None shoulder pain Quality ac [place] 03/16/2012 None shoulder pain Quality sh kate [...] Encounters Encounter Performer Loca tion Codes Date 60107 EST. PATIENT, LEVEL II Diagnosis: Pain in right knee[ICD10: M25.561] Diagnosis: Unspecified fracture of shaft of right fibula, initial encounter for closed fracture[ICD10: S82.401A] Юлия Manuel MD, [facility] CPT-4: 70952 03/20/2019 05770 EST. PATIENT, LEVEL III Diagnosis: Asymptomatic varicose veins of right lower extremity[ICD10: I83.91] Юлия Manuel MD, [facility] CPT-4: 03739 03/15/2019 ([id number]) 78635 EST. P ATIENT, LEVEL II Diagnosis: Otalgia, right ear[ICD10: H92.01] Diagnosis: Other specified disorders of teeth and supporting structures[ICD10: K08.89] Юлия Manuel MD, [facility] CPT-4: 10633 01/08/2019 ([id number]) 73512 EST. P ATIENT, LEVEL III Diagnosis: Otalgia, right ear[ICD10: H92.01] Юлия Manuel MD, [facility] CPT- 4: 75238 01/01/2019 ([id number]) 20518 EST. 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 P ATIENT, LEVEL III Diagnosis: Nasal congestion[ICD10: R09.81] Diagnosis: Other allergic rhinitis[ICD10: J30.89] Юлия Manuel MD, [facility] CPT-4: 05933 08/31/2018 ([id number]) 12431 EST. P ATIENT, LEVEL III Diagnosis: Acute recurrent maxillary sinusitis[ICD10: J01.01] Юлия Manuel MD, [facility] CPT-4: 39491 08/14/2018 60122 EST. PATIENT, LEVEL III Diagnosis: Pain in right shoulder[ICD10: M25.511] Diagnosis: Pain in right arm[ICD10: M79.601] Willow Manuel MD, [facility] CPT-4: 43332 05/22/2018 ([id number]) 30701 EST. 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 PATIENT, LEVEL III Diagnosis: Other specified intestinal infections[ICD10: A08.8] Willow Manuel MD, [facility] CPT-4: 40122 08/03/2017 ([id number]) 21788 EST. 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 P ATIENT, LEVEL III Diagnosis: Essential (primary) hypertension[ICD10: I10] Юлия Manuel MD, [facility] CPT-4: 18405 12/02/2016 ([id number]) 55120 EST. P ATIENT, LEVEL III Diagnosis: Essential (primary) hypertension[ICD10: I10] Diagnosis: Allergic rhinitis due to pollen[ICD10: J30.1] Giuliana Manuel MD, [facility] CPT-4: 61403 11/22/2016 29408 EST. PATIENT, LEVEL III Diagnosis: Acute laryngopharyngitis[ICD10: J06.0] Diagnosis: Influenza due to unidentified influenza virus with other respiratory manifestations[ICD10: J11.1] Willow Manuel MD, [facility] CPT-4: 67161 11/05/2016 ([id number]) 54848 EST. P ATIENT, LEVEL III Diagnosis: Gastro-esophageal reflux disease without esophagitis[ICD10: K21.9] Diagnosis: Essential (primary) hypertension[ICD10: I10] Giuliana Manuel MD, [facility] CPT-4: 57309 07/22/2016 ([id number]) 73019 EST. P ATIENT, LEVEL IV Diagnosis: Essential (primary) hypertension[ICD10: I10] Diagnosis: Abdominal distension (gaseous)[ICD10: R14.0] Giuliana Manuel MD, [facility] CPT-4: 61644 05/19/2016 ([id number]) 35708 EST. P ATIENT, LEVEL III Diagnosis: Essential (primary) hypertension[ICD10: I10] Юлия Manuel MD, [facility] CPT-4: 04762 02/13/2016 ([id number]) 97596 EST. P ATIENT, LEVEL III Diagnosis: Essential (primary) hypertension[ICD10: I10] Юлия Manuel MD, [facility] CPT-4: 20479 01/13/2016 42533 EST. PATIENT, LEVEL IV Diagnosis: Essential (primary) hypertension[ICD10: I10] Diagnosis: Body mass index (BMI) 36.0-36.9, adult[ICD10: Z68.36] Willow Manuel MD, [facility] CPT-4: 76702 01/02/2016 ([id number]) 17922 EST. P ATIENT, LEVEL III Diagnosis: Essential (primary) hypertension[ICD10: I10] Юлия Manuel MD, [facility] CPT-4: 11198 12/18/2015 ([id number]) 52839 EST. P ATIENT, LEVEL IV Diagnosis: Essential (primary) hypertension[ICD10: I10] Diagnosis: Benign paroxysmal vertigo, bilateral[ICD10: H81.13] Diagnosis: Radiculopathy, cervical region[ICD10: M54.12] Giuliana Manuel MD, [facility] CPT-4: 66175 09/08/2015 ([id number]) 67318 EST. P ATIENT, LEVEL IV Diagnosis: Other specified nonscarring hair loss[ICD10: L65.8] Diagnosis: Myositis, unspecified[ICD10: M60.9] Diagnosis: Psoriasis, unspecified[ICD10: L40.9] Diagnosis: Essential (primary) hypertension[ICD10: I10] Giuliana Manuel MD, [facility] CPT-4: 52841 07/09/2015 ([id number]) 75001 EST. P ATIENT, LEVEL III Diagnosis: ESSENTIAL HYPERTENSION[ICD9: 401.9] Giuliana Manuel MD, [facility] CPT- 4: 92265 01/16/2015 ([id number]) 44577 EST. P ATIENT, LEVEL III Diagnosis: Shoulder pain[ICD9: 719.41] Diagnosis: ESSENTIAL HYPERTENSION[ICD9: 401.9] Diagnosis: PALPITATIONS[ICD9: 785.1] Giuliana Manuel MD, [facility] CPT-4: 58752 01/03/2015 ([id number]) 66833 EST. P ATIENT, LEVEL III Diagnosis: Sacroiliitis[ICD9: 720.2] Diagnosis: Back pain[ICD9: 724.5] Diagnosis: ESSENTIAL HYPERTENSION[ICD9: 401.9] Giuliana Manuel MD, [facility] CPT- 4: 05888 09/16/2014 ([id number]) 26208 EST. P ATIENT, LEVEL IV Diagnosis: ESSENTIAL HYPERTENSION[ICD9: 401.9] Diagnosis: Arrhythmia[ICD9: 427.9] Diagnosis: Nausea[ICD9: 787.02] Giuliana Manuel MD, [facility] CPT-4: 56163 08/15/2014 ([id number]) 11476 EST. P ATIENT, LEVEL IV Diagnosis: ESSENTIAL HYPERTENSION[ICD9: 401.9] Diagnosis: Back pain[ICD9: 724.5] Diagnosis: Allergic reaction[ICD9: 995.3] Giuliana Manuel MD, [facility] CPT-4: 40879 06/12/2014 ([id number]) 18164 EST. P ATIENT, LEVEL III Diagnosis: Thoracic back pain[ICD9: 724.1] Diagnosis: MYALGIA AND MYOSITIS[ICD9: 729.1] Giuliana Manuel MD, [facility] CPT-4: 50723 03/20/2014 ([id number]) 01990 EST. P ATIENT, LEVEL IV Diagnosis: HYPERLIPIDEMIA[ICD9: 272.4] Diagnosis: ESSENTIAL HYPERTENSION[SNOMED: 09605708] Diagnosis: ABDOM PAIN NOS SITE[ICD9: 789.00] Giuliana Manuel MD, [facility] CPT-4: 09605 12/10/2013 ([id number]) 92043 EST. P ATIENT, LEVEL IV Diagnosis: ESSENTIAL HYPERTENSION[SNOMED: 90607845] Diagnosis: HYPERLIPIDEMIA[ICD9: 272.4] Giuliana Manuel MD, [facility] CPT-4: 04874 09/17/2013 ([id number]) 98787 EST. P ATIENT, LEVEL IV Diagnosis: ESSENTIAL HYPERTENSION[SNOMED: 77369995] Diagnosis: OBESITY[ICD9: 278.00] Diagnosis: Back pain[ICD9: 724.5] Giuliana Manuel MD, [facility] CPT-4: 11547 05/21/2013 ([id number]) 36109 EST. P ATIENT, LEVEL IV Diagnosis: ESSENTIAL HYPERTENSION[SNOMED: 05882893] Diagnosis: HYPERLIPIDEMIA[ICD9: 272.4] Diagnosis: Abdominal pain[ICD9: 789.00] Diagnosis: BENIGN PAROXYSMAL VERTIGO[ICD9: 386.11] Giuliana Manuel MD, [facility] CPT-4: 39681 01/17/2013 ([id number]) 57664 EST. P ATIENT, LEVEL IV Diagnosis: ESSENTIAL HYPERTENSION[SNOMED: 11550956] Diagnosis: BENIGN PAROXYSMAL VERTIGO[ICD9: 386.11] Diagnosis: Hair loss[ICD9: 704.00] Diagnosis: Vitamin d deficiency[ICD9: 268.9] Diagnosis: Bleeding from the nose[ICD9: 784.7] Giuliana Manuel MD, [facility] CPT- 4: 55949 09/20/2012 63557 EST. PATIENT, LEVEL IV Diagnosis: BPPV (benign paroxysmal positional vertigo)[ICD9: 386.11] Diagnosis: HYPERLIPIDEMIA[ICD9: 272.4] Diagnosis: ESSENTIAL HYPERTENSION[SNOMED: 08325989] Giuliana Manuel MD, C CPT-4: 14448 06/08/2012 ([id number]) 34489 EST. P ATIENT, LEVEL IV Diagnosis: BPPV (benign paroxysmal positional vertigo)[ICD9: 386.11] Diagnosis: Diverticulitis[ICD9: 562.11] Diagnosis: Abdominal pain[ICD9: 789.00] Giuliana Manuel MD, [facility] CPT-4: 54396 04/10/2012 ([id number]) 22768 EST. P ATIENT, LEVEL III Diagnosis: Neck pain[ICD9: 723.1] Diagnosis: Acute upper back pain[ICD9: 724.1] Giuliana Manuel MD, [facility] CPT- 4: 82647 03/16/2012 ([id number]) 67246 EST. P ATIENT, LEVEL IV Diagnosis: HYPERLIPIDEMIA[ICD9: 272.4] Diagnosis: ESSENTIAL HYPERTENSION[SNOMED: 08284004] Diagnosis: Constipation - functional[ICD9: 564.09] Giuliana Manuel MD, [facility] CPT-4: 37582 02/03/2012 ([id number]) 28644 EST. P ATIENT, LEVEL IV Diagnosis: HYPERLIPIDEMIA[ICD9: 272.4] Diagnosis: VITAMIN DEFICIENCY[ICD9: 269.2] Diagnosis: ESSENTIAL HYPERTENSION[SNOMED: 14447724] Giuliana Manuel MD, C CPT-4: 22304 11/04/2011 88291 EST. 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 03/15/2019 Appointment: Юлия Rojas WPtel: [phone] [phone] (15 min) Moderate 03/15/2019 Patient Education: Patient Medication Summary Completed 03/15/2019 Visit Plan: Right earache -suspect trigeminal neuralgia- recommend patient have a dental eval to also check tooth that is bothering her on the right upper jaw -discussed treating trigeminal neuralgia if tooth is okay but instructed her to call if symptoms worsen -patient verbalized understanding of plan. 01/08/2019 Appointment: Юлия Rojas WPtel: [phone] (30 min) Complex 01/08/2019 Patient Education: Patient Medication Summary Completed 01/08/2019 Visit Plan: Right ear pain -concern for trigeminal neuralgia -she does have some sinus tenderness -will give kenalog injection today - continue anti histamine daily -monitor symptoms and call if persistent, worsen o r new symptoms develop. Patient verbalized understanding of plan. 01/01/2019 Appointment: Юлия Rojas WPtel: [facility]5 [phone] (30 min) Complex 01/01/2019 Patient Education: Patient [...] not improving. 12/18/2018 Appointment: Giuliana Manuel WPtel: [facility]6 [facility] (15 min) Moderate 12/18/2018 Patient Education: Patient [...] low back. 09/18/2018 Appointment: Giuliana Manuel WPtel: [facility]6 [facility] (15 min) Moderate 09/18/2018 Patient Education: Patient [...] allergy spray. 08/31/2018 Appointment: Юлия Rojas WPtel: [phone] [place] (15 min) Moderate 08/31/2018 Patient Education: [...] improve. 05/22/2018 Appointment: Willow Garcia WPtel: [phone] [phone] (15 min) Moderate 05/22/2018 Patient Education: Patient [...] not improving. 11/18/2017 Appointment: Giuliana Manuel WPtel: [facility] [place] (15 min) Moderate 11/18/2017 Patient Education: Patient Medication Summary Completed 11/18/2017 Appointment: Giuliana Manuel WPtel: [phone] [facility] [place] (15 min) Moderate 11/07/2017 Visit Plan: Diarrhea [...] not improved. 08/03/2017 Appointment: Willow Garcia WPtel: [facility]5 [facility] (30 min) Complex 08/03/2017 Patient Education: Patient [...] D daily. 07/05/2017 Appointment: Giuliana Manuel WPtel: [facility]5 [facility] (15 min) Moderate 07/05/2017 Patient Education: Patient Medication Summary Completed 07/05/2017 Patient Education: Obesity Completed 07/05/2017 Appointment: Giuliana Manuel WPtel: [facility] (15 min) Moderate 06/27/2017 Appointment: Giuliana Manuel WPtel: [facility] (15 min) Moderate 06/21/2017 Appointment: Юлия Rojas WPtel: [phone] [place] (30 min) Complex 12/23/2016 Visit Plan: [...] RESTART HCTZ 12/02/2016 Appointment: Юлия Rojas WPtel: [phone] (30 min) Complex 12/02/2016 Patient Education: Patient [...] 7 days 11/22/2016 Appointment: Giuliana Manuel WPtel: [facility] (15 min) Moderate 11/22/2016 Patient Education: Patient Medication Summary Completed 11/22/2016 Patient Education: Obesity Completed 11/22/2016 Visit Plan: Influenza - pt started on tamiflu - pt to start on anti-inflammatories, tylenol and monitor symptoms. Pt to call if not improving. Pt to alert any close contacts as to illness. 11/05/2016 Appointment: Willow Garcia WPtel: [facility]4 [facility] (30 min) Complex 11/05/2016 Patient Education: Patient [...] on carafate 07/22/2016 Appointment: Giuliana Manuel WPtel: [facility]5 [facility] (15 min) Moderate 07/22/2016 Patient Education: Patient Medication Summary Completed 07/22/2016 Patient Education: Obesity Completed 07/22/2016 Care Plan: Referral Order SNOMED-CT : [id number] Pending 07/22/2016 Visit Plan: Hypertension - well [...] Obesity Completed 05/19/2016 Appointment: Giuliana Manuel WPtel: [facility] [facility] [place] (15 min) Moderate 05/17/2016 Visit Plan: Hypertension - well con trolled - continue with current medications, continue with no added salt diet. Pt has been encouraged to exercise daily. The pt has been advised to call the office if there are any acute concerns about change in blood pressure readings at home. 02/13/2016 Appointment: Юлия Rojas WPtel: [phone] [place] (30 min) Complex 02/13/2016 Patient Education: [...] Completed 12/18/2015 Appointment: Giuliana Manuel WPtel: [phone] [facility] (15 min) Moderate 12/08/2015 Referral: Jared Lafleur [address] [place], [place] [id number] Referral Completed 10/17/2015 Visit Plan: Hypertension - [...] to consider a stress test. 09/08/2015 Appointment: Giulaina Manuel WPtel: [phone] [facility] (15 min) Moderate 09/08/2015 Patient Education: Patient Medication Summary Completed 09/08/2015 Patient Education: .Cervicalgia Neck Pain Completed 09/08/2015 Care Plan: Referral Order SNOMED-CT : [id number] Ordered 09/08/2015 Visit Plan: Hypertension - uncontro [...] checked today. 07/09/2015 Appointment: Giuliana Manuel WPtel: [address] [place], [place] [phone] (15 min) Moderate 07/09/2015 Patient Education: Patient Medication Summary Completed 07/09/2015 Appointment: Tonia Manuely WPtel: [address] [place], [place] [phone] (15 min) Moderate 07/07/2015 [place]: [place] W[place]: [address] [place], [place] [phone] Follow up 03/17/2015 Visit Plan: Hypertension - well con trolled - continue with current medications, continue with no added salt diet. Pt has been encouraged to exercise daily. The pt has been advised to call the office if there are any acute concerns about change in blood pressure readings at home. Palpitations resolved. 01/16/2015 Appointment: Mar Giuliana WPtel: [address] [place], [place] [phone] Other 01/16/2015 Patient Education: Patient Medication Summary [...] for break through pain symptoms. 01/03/2015 Appointment: Tonia Manuely WPtel: [address] [place], [place] [phone] Follow up 01/03/2015 Patient Education: Patient Medication [...] Hypertension Completed 09/16/2014 Appointment: Giuliana Manuel WPtel: [address] [place] [address] Follow up 09/09/2014 Visit Plan: Hypertension - [...] symptoms worsen. 08/15/2014 Appointment: Giuliana Manuel WPtel: [facility]5 [facility] Sick 08/15/2014 Patient Education: Patient Medication Summary Completed 08/15/2014 Patient Education: Hypertension Completed 08/15/2014 Care Plan: Referral Order SNOMED-CT : [id number] Ordered 08/15/2014 Appointment: Giuliana Manuel WPtel: [address] [place], [place] [phone] Follow up 06/18/2014 Visit Plan: Back pain [facility]. Rash - reaction to soy [...] at home. 06/12/2014 Appointment: Giuliana Manuel WPtel: [address] [facility] [facility] 06/12/2014 Patient Education: Patient Medication Summary Completed 06/12/2014 Patient Education: Hypertension Completed 06/12/2014 Care Plan: Referral Order SNOMED-CT : [id number] Ordered 06/12/2014 Visit Plan: Hypertension - well [...] spine xrays. 03/20/2014 Appointment: Giuliana Manuel WPtel: [facility] Follow up 03/20/2014 Patient Education: Patient [...] UTI 12/10/2013 Appointment: Giuliana Manuel WPtel: [phone] [facility] Follow up 12/10/2013 Patient Education: Patient [...] times weekly. 09/17/2013 Appointment: Giuliana Manuel WPtel: [phone] [facility] Follow up 09/17/2013 Patient Education: Patient Medication [...] muscle rub. 05/21/2013 Appointment: Giuliana Manuel WPtel: [phone] [facility] Follow up 05/21/2013 Patient Education: Patient Medication [...] vertigo. 01/17/2013 Appointment: Giuliana Manuel WPtel: [phone] [facility] Follow up 01/17/2013 Patient Education: Patient [...] if needed. 09/20/2012 Appointment: Giuliana Manuel WPtel: [address] [facility] Follow up 09/20/2012 Patient Education: Patient Medication [...] intolerance begin. 06/08/2012 Appointment: Giuliana Manuel WPtel: [address] [place], [place] [phone] Follow up 06/08/2012 Patient Education: Patient Medication [...] or popcorn. 04/10/2012 Appointment: Giuliana Manuel WPtel: [address] [place], [place] [phone] Other 04/10/2012 Patient Education: Patient Medication Summary [...] by Tuesday. 03/16/2012 Appointment: Giuliana Manuel WPtel: [facility] Other 03/16/2012 Patient Education: Patient Medication Summary [...] this regimen. 02/03/2012 Appointment: Giuliana Manuel WPtel: [address] [place], [place] [address] Other 02/03/2012 Patient Education: Patient Medication Summary [...] a week. 11/04/2011 Appointment: Giuliana Manuel WPtel: [facility] Follow up 11/04/2011 Patient Education: Patient Medication [...] She will monitor her intake. Allergies - [facility] for the headaches to see ifnallergy medication helps to prevent the headaches flu shot pneumonia shot 07/13/2011 Appointment: Giuliana Manuel WPtel: [address] [place], [place] [phone] Other 07/13/2011 Patient Education: Patient Medication Summary Completed 07/13/2011 Patient Education: .Amazing charts Diabe tic meal planning guide Completed 07/13/2011 Referral: Jared Lafleur [address] [facility] [place] Referral Appointment Requested Referral: Duarte Catalan Referral Appointment Requested Referral: Dr. Willams WPtel: [address] [place], [place] [phone] [place] Referral Initiated Referral: [facility] WPtel: [address] [place] [phone] [place] Referral Initiated Instructions Comment . Varicose vein -rig ht lower leg -mildly tender -not inflamed -instructed patient to monitor and call if symptoms worsen, persist or new symptoms develop. Patient verbalized understanding of plan. . Hyperlipidemia - pt has been counseled [...] of vitamin D once a week. . Neck pain- start p hysical therapy [...] improving. Pt to start on carafate . Right knee pain -c ontinue rest, [...] atorvastatin and start three times weekly. . Right earache -karl yanez trigeminal neuralgia- recommend patient have a dental eval to also check tooth that is bothering her on the right upper jaw -discussed treating trigeminal neuralgia if tooth is okay but instructed her to call if symptoms worsen -patient verbalized understanding of plan. . Hypertension - [...] in blood pressure readings at home. . Abdominal pain - G as and [...] prevent the headaches flu shot pneumonia shot KENALOG CONTINUE BENADRYL AT BEDTIME . Right ear pain -concern for trigeminal neuralgia -she does have some sinus tenderness -will give kenalog injection today -continue anti histamine daily - monitor symptoms and call if persistent, worsen or new symptoms develop. Patient verbalized understanding of plan. . Influenza - pt sta rted on tamiflu - pt to start on anti- inflammatories, tylenol and monitor symptoms. Pt to call if not improving. Pt to alert any close contacts as to illness. increase Atenolol to 1.5 tabs twice daily [...] to call for acute concerns. STOP CLONIDINE INCREASE DOXAZOSIN TO TWICE DAILY [...] if the symptoms are not improving. . Hypertension - unc ontrolled - the [...] not better by Tuesday. . Hypertension - wel l controlled - [...] tylenol for break through pain symptoms. . Hypertension - wel l controlled - [...] RTC in 2 weeks for weight check. ibuprofen 2 pills 3 times a day [...] pain is worsening or does not improve. . Hypertension - wel l controlled - [...] deficiency - continue with vitamin D daily. . Hypertension - wel l controlled - [...] . Back pain - referr al to [facility]. Rash - reaction to soy [...] change in blood pressure readings at home. hold the omega 3 fis h oil [...] may need injection into low back. . BPPV - Benign Paro xysmal Positional [...] medication, or symptoms of intolerance begin. . Hypertension - wel l controlled - [...] chronically. Pt given exercises for the vertigo. KENALOG FLONASE BENADRYL . Allergies - chronic [...]
--- OUTSIDE RECORDS SUMMARY | 2020-01-21 13:59 | XMS REPORT | CCD ---
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 09/08/2015 Marital status Unknown M arried 07/13/[address]: 600914265 Nonsmoker 07/13/[address]: 856772280 Never drinks alcohol 07/13/2011 Allergies, Adverse Reactions, Alerts Substance Reaction Codes Entered Date Inactivated Date Status Soy Unknown 07/13/2011 No Inactive Date Active Cardizem RxNorm: 425092 05/19/2016 No Inactive Date Active Metoprolol Succinate [...] pain ICD-9: 789.00 Active 07/13/2011 Unknown 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 Active 07/13/2011 Unknown OBESITY ICD-9: [...] Abdominal pain ICD-9: 789.00 07/13/2011 Active 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 07/13/2011 Active OBESITY ICD-9: 278.00 07/13/2011 Active Postprandial bloating ICD-9: 787.3 07/13/2011 Active Seasonal allergies ICD- 9: 477.9 07/13/2011 Active VAC STREP PNEUMONIAE -FLU ICD-9: V06.6 07/13/2011 Active Medications Medication Codes Instruc tions Start Date Stop Date Sta tus Fill Instructions doxazosin 1 mg tablet RxNorm: 503188 TAKE 1 TABLET BY [facility] 02/27/2019 11/23/2019 Ac tive - Ref: [id number] hydrochlorothiazide 12.5 mg tablet RxNorm: 606218 TAKE 1 TABLET BY MOUT H EVERY DAY 02/27/2019 11/23/2019 Ac tive - Ref: [id number] famotidine 40 mg tablet RxNorm: 337584 TAKE 1 TABLET BY MOUTH EVERY MORNING 02/27/2019 11/23/2019 Ac tive - Ref: [id number] Kenalog 40 mg/mL karl pension for injection RxNorm: 7234680 Milliliter(s) Inj 01/01/2019 01/01/2019 In active losartan 25 mg tablet RxNorm: 851818 1 Tablet(s) PO BID 11/01/2018 10/26/2019 Active losartan 25 mg tablet RxNorm: 841535 1 Tablet(s) PO BID 11/01/2018 10/31/2018 Inactive hydrochlorothiazide 12.5 mg tablet RxNorm: 780923 TAKE 1 TABLET BY MOUT H EVERY DAY 10/02/2018 02/26/2019 In active - First Attempt Ref: [id number] famotidine 40 mg tablet RxNorm: 855851 TAKE 1 TABLET BY MOUTH EVERY MORNING 10/02/2018 02/26/2019 In active - First Attempt Ref: [id number] doxazosin 1 mg tablet RxNorm: 343736 TAKE 1 TABLET BY MOUTH EVERY DAY AT [facility] 10/02/2018 02/26/2019 Inactive - First Attempt Ref: [id number] naproxen 500 mg tablet RxNorm: 965909 1 Tablet(s) PO BID 09/18/2018 09/24/2018 Inactive diclofenac 1 % topic al gel RxNorm: 777879 2 Application TOP QID 09/18/2018 11/16/2018 Inactive Kenalog 40 mg/mL karl pension for injection RxNorm: 8946356 1 Milliliter(s) Inj 08/31/2018 08/31/2018 In active clonidine HCl 0.1 mg tablet RxNorm: 895591 1/2 Tablet(s) PO BID 08/16/2018 08/10/2019 Active amoxicillin 500 mg t ablet RxNorm: 823078 1 Tablet(s) PO TID 08/14/2018 08/20/2018 Inactive losartan 25 mg tablet RxNorm: 148627 1 Tablet(s) PO BID 05/02/2018 05/01/2018 Inactive losartan 25 mg tablet RxNorm: 061931 1 Tablet(s) PO BID 05/02/2018 10/31/2018 Inactive losartan 25 mg tablet RxNorm: 473662 1 Tablet(s) PO BID 01/30/2018 05/01/2018 Inactive Vitamin D 2,000 unit capsule RxNorm: 1 Capsule(s) PO daily 11/18/2017 No Stop Date Active atenolol 25 mg tablet RxNorm: 570981 1 Tablet(s) PO daily 11/18/2017 11/12/2018 Inactive atenolol 25 mg tablet RxNorm: 515578 1 Tablet(s) PO BID managed by Dr Lafleur 11/18/2017 11/17/2017 In active clonidine HCl 0.1 mg tablet RxNorm: 071399 1/2 Tablet(s) PO BID 11/18/2017 08/15/2018 Inactive doxazosin 1 mg tablet RxNorm: 431158 1 Tablet(s) PO daily at midnight 11/18/2017 10/01/2018 In active midnight losartan 25 mg tablet RxNorm: 784654 1 Tablet(s) PO BID 11/18/2017 01/29/2018 Inactive hydrochlorothiazide 12.5 mg tablet RxNorm: 919530 1 Tablet(s) PO daily 11/18/2017 10/01/2018 In active famotidine 40 mg tablet RxNorm: 389783 1 Tablet(s) PO daily TAKE 1 TABLET BY MO [facility] EVERY MORNING 11/18/2017 10/01/2018 Inactive - Ref: [id number] hydrochlorothiazide 12.5 mg tablet RxNorm: 807373 1 Tablet(s) PO daily 10/28/2017 11/17/2017 In active famotidine 40 mg tablet RxNorm: 295158 TAKE 1 TABLET BY MOUTH EVERY MORNING 10/04/2017 11/17/2017 In active - Ref: [id number] clonidine HCl 0.1 mg tablet RxNorm: 843817 1/2 Tablet(s) PO BID 07/05/2017 11/17/2017 Inactive doxazosin 1 mg tablet RxNorm: 661559 1 Tablet(s) PO daily at midnight 07/05/2017 11/17/2017 In active midnight doxazosin 1 mg tablet RxNorm: 584196 1 Tablet(s) PO BID 12/02/2016 2017 Inactive midnight prednisone 20 mg tablet RxNorm: 147600 3 Tablet(s) PO daily 11/22/2016 11/26/2016 Inactive Tessalon Perles 100 mg capsule RxNorm: 304388 1 -2 Capsule(s) PO TI D as needed cough 11/19/2016 12/31/2018 Inactive Zithromax Z-Jeff 250 mg tablet RxNorm: 884248 1 Tablet(s) PO UD 11/19/2016 12/01/2016 Inactive z pack as directed Tamiflu 75 mg capsule RxNorm: 466535 1 Capsule(s) PO BID 11/05/2016 11/09/2016 Inactive Kenalog 40 mg/mL karl pension for injection RxNorm: 1717361 Milliliter(s) Inj 11/05/2016 11/05/2016 In active Tessalon Perles 100 mg capsule RxNorm: 976822 1 -2 Capsule(s) PO TI D as needed cough 11/04/2016 11/18/2016 Inactive famotidine 40 mg tablet RxNorm: 893796 1 Tablet(s) PO QAM 10/25/2016 10/03/2017 Inactive famotidine 40 mg tablet RxNorm: 307066 1 Tablet(s) PO QAM 08/02/2016 10/24/2016 Inactive Carafate 1 gram tablet RxNorm: 616408 1 Tablet(s) PO TID DISSOLVE THE PILL IN 10ML OF WATER 07/22/2016 10/19/2016 Inactive clonidine HCl 0.1 mg tablet RxNorm: 582423 1 Tablet(s) PO BID an d 1 tablet as needed 07/22/2016 12/01/2016 Inactive Cinnamon 1000 mg RxNorm: 1 PO daily 05/19/2016 No Stop Date Active aspirin 81 mg tablet ,delayed release RxNorm: 217563 1 Tablet(s) PO QHS 05/19/2016 11/27/2018 In active losartan 25 mg tablet RxNorm: 092859 1 Tablet(s) PO BID 05/19/2016 11/17/2017 Inactive atenolol 25 mg tablet RxNorm: 302810 1.5 Tablet(s) PO BID 02/13/2016 07/21/2016 Inactive losartan 25 mg tablet RxNorm: 703581 2 Tablet(s) PO BID 01/13/2016 05/11/2016 Inactive Cardizem CD 240 mg c apsule,extended release RxNorm: 449506 1 Capsule(s) PO daily 01/13/2016 02/12/2016 In active losartan 100 mg tablet RxNorm: 893336 1/2 Tablet(s) PO BID 01/08/2016 01/12/2016 Inactive losartan 25 mg tablet RxNorm: 432925 2 Tablet(s) PO QPM 1 Tablet(s) PO QPM 12/18/2015 01/07/2016 In active atenolol 25 mg tablet RxNorm: 438031 1.5 Tablet(s) PO BID TAKE ONE TABLET BY MOUTH TWICE A DAY 12/18/2015 01/12/2016 Inactive atenolol 25 mg tablet RxNorm: 813348 Tablet(s) TAKE ONE TABLET BY MOUTH TWICE A DAY 11/14/2015 12/17/2015 Inactive losartan 25 mg tablet RxNorm: 498192 Tablet(s) 1 Tablet(s) PO QPM 11/14/2015 12/17/2015 Inactive spironolactone 25 mg tablet RxNorm: 054607 1 Tablet(s) PO daily 11/14/2015 12/14/2015 Inactive atenolol 25 mg tablet RxNorm: 121450 TAKE ONE TABLET BY MOUTH TWICE A DAY 08/07/2015 11/13/2015 In active atenolol 25 mg tablet RxNorm: 845232 1 Tablet(s) PO daily TAKE ONE TABLET BY MOUTH TWICE DAILY 08/06/2015 08/06/2015 Inactive Generic For:TENORMIN 25 MG TABLET 05/05/2015 10:00:22 AM atenolol 25 mg tablet RxNorm: 337609 1 Tablet(s) PO daily TAKE ONE TABLET BY MOUTH TWICE DAILY 08/06/2015 08/05/2015 Inactive Generic For:TENORMIN 25 MG TABLET 05/05/2015 10:00:22 AM betamethasone diprop ionate 0.05 % topical ointment RxNorm: 260452 1 TOP TID as needed rash 07/09/2015 05/18/2016 Inactive betamethasone diprop ionate 0.05 % topical ointment RxNorm: 920317 1 TOP TID as needed rash 07/09/2015 07/08/2015 Inactive spironolactone 25 mg tablet RxNorm: 383497 1 Tablet(s) PO daily 07/09/2015 07/08/2015 Inactive spironolactone 25 mg tablet RxNorm: 123467 1 Tablet(s) PO daily 07/09/2015 11/13/2015 Inactive losartan 25 mg tablet RxNorm: 826004 Tablet(s) 1 Tablet(s) PO QPM 05/27/2015 11/13/2015 Inactive atenolol 25 mg tablet RxNorm: 913033 TAKE ONE TABLET BY MOUTH TWICE DAILY 05/05/2015 08/05/2015 In active Generic For:TENORMIN 25 MG TABLET 05/05 10:00:22 AM hydrochlorothiazide 25 mg tablet RxNorm: 495870 1/2 Tablet(s) PO BID 02/17/2015 07/08/2015 Inactive Generic For:HYDRODIURIL 25 MG TABLET sulfamethoxazole 800 mg-trimethoprim 160 mg tablet RxNorm: 777806 1 Tablet(s) PO BID 01/16/2015 01/25/2015 Inactive losartan 25 mg tablet RxNorm: 804459 1 Tablet(s) PO QPM 12/09/2014 05/26/2015 Inactive Kenalog 40 mg/mL karl pension for injection RxNorm: 9583353 1 Milliliter(s) Inj 09/16/2014 09/16/2014 In active prednisone 20 mg tablet RxNorm: 093991 3 Tablet(s) PO daily 09/16/2014 09/18/2014 Inactive losartan 25 mg tablet RxNorm: 054139 1 Tablet(s) PO QPM 08/15/2014 12/08/2014 Inactive hydrochlorothiazide 25 mg tablet RxNorm: 234309 TAKE 1/2 TABLET BY MO [facility] TWICE DAILY 08/13/2014 02/08/2015 Inactive Generic For:HYDRODIURIL 25 MG TABLET atenolol 25 mg tablet RxNorm: 736603 TAKE ONE TABLET BY MOUTH TWICE DAILY 05/07/2014 05/01/2015 In active Generic For:TENORMIN 25 MG TABLET ketorolac 60 mg/2 mL intramuscular solution RxNorm: 070444 2 Milliliter(s) IM 03/20/2014 03/20/2014 In active hydrochlorothiazide 25 mg tablet RxNorm: 895074 Tablet(s) PO TAKE 1/2 TABLET BY MOUTH TWICE DAILY 02/14/2014 08/12/2014 Inactive Generic For:HYDRODIURIL 25 MG TABLET Generic For:HYDRODIURIL 25 MG TABLET 02/14/2014 3:45:03 PM atorvastatin 10 mg t ablet RxNorm: 738662 1 Tablet(s) PO TIW 09/17/2013 03/19/2014 Inactive atorvastatin 10 mg t ablet RxNorm: 034069 tablet oral 09/17/2013 06/04/2015 Inactive hydrochlorothiazide 25 mg tablet RxNorm: 654710 Tablet(s) PO TAKE 1/2 TABLET BY MOUTH TWICE DAILY 08/06/2013 02/13/2014 Inactive Generic For:HYDRODIURIL 25 MG TABLET Generic For:HYDRODIURIL 25 MG TABLET 08/06/2013 1:52:35 PM amoxicillin 500 mg t ablet RxNorm: 896390 2 Tablet(s) PO 2 tabl ets PO 1 hour before dental procedure. 07/26/2013 07/25/2013 Inactive amoxicillin 500 mg t ablet RxNorm: 159136 2 Tablet(s) PO 2 tabl ets PO 1 hour before dental procedure. 07/26/2013 07/26/2013 Inactive methotrexate sodium 2.5 mg tablet RxNorm: 099712 tablet oral 07/13/2013 01/15/2015 Inactive atenolol 25 mg tablet RxNorm: 696303 Tablet(s) PO TAKE ONE TABLET BY MOUTH TW ICE DAILY 05/01/2013 05/06/2014 Inactive Generic For:TENORMIN 25 MG TABLET hydrochlorothiazide 25 mg tablet RxNorm: 516660 Tablet(s) PO TAKE 1/2 TABLET BY MOUTH TWICE DAILY 11/21/2012 08/05/2013 Inactive Generic For:HYDRODIURIL 25 MG TABLET atenolol 25 mg tablet RxNorm: 288183 Tablet(s) PO TAKE ONE TABLET BY MOUTH TW ICE DAILY 10/02/2012 04/30/2013 Inactive Generic For:TENORMIN 25 MG TABLET gemfibrozil 600 mg t ablet RxNorm: 399938 1 Tablet(s) PO BID 06/08/2012 10/08/2012 Inactive meclizine 25 mg tablet RxNorm: 0813751 1 Tablet(s) PO Q4 PRN 06/08/2012 09/05/2012 Inactive prednisone 10 mg Tab RxNorm: 598870 2 Tablet(s) PO daily 03/16/2012 03/20/2012 Inactive atorvastatin 10 mg Tab RxNorm: 312083 1 Tablet(s) PO daily 12/21/2011 12/20/2011 Inactive atorvastatin 10 mg Tab RxNorm: 619770 1 Tablet(s) PO daily 12/21/2011 06/08/2012 Inactive methotrexate sodium 2.5 mg Tab RxNorm: 050887 Tablet(s) PO 11/16/2011 06/12/2012 Inactive 3 on tuesday3 on hydrochlorothiazide 25 mg Tab RxNorm: 000100 1/2 Tablet(s) PO BID 11/01/2011 11/24/2012 Inactive hydrochlorothiazide 12.5 mg Cap RxNorm: 576151 Capsule(s) PO 11/01/2011 06/08/2012 Inactive TAKE ONE TABLET BY MOUTH TWICE DAILY;Gen sky For:MICROZIDE 12.5 MG CAPSULE hydrochlorothiazide 25 mg Tab RxNorm: 626974 1/2 Tablet(s) PO BID 11/01/2011 11/24/2012 Inactive hydrochlorothiazide 25 mg tablet RxNorm: 067107 1/2 Tablet(s) PO BID 11/01/2011 10/31/2011 Inactive hydrochlorothiazide 25 mg Tab RxNorm: 299961 1/2 Tablet(s) PO BID 11/01/2011 10/31/2011 Inactive atenolol 25 mg tablet RxNorm: 847898 Tablet(s) PO 10/04/2011 10/01/2012 Inactive TAKE ONE TABLET BY MOUTH TWICE DAILY;Generic For:TENORMIN 25 MG TABLET hydrochlorothiazide 12.5 mg Cap RxNorm: 712839 1 Capsule(s) PO BID 09/13/2011 10/31/2011 Inactive Influenza Virus Vacc ine 0.5 mL RxNorm: IM 07/13/2011 07/13/2011 Inactive Pneumovax 23 25 mcg/ 0.5 mL Injection RxNorm: 908004 Milliliter(s) Inj 07/13/2011 07/13/2011 In active vitamin B complex oral RxNorm: 68562 oral No Start Date Active Cinnamon 1000 mg RxNorm: 2 PO daily No Start Date Active atenolol 25 mg Tab RxNorm: 478281 1 Tablet(s) PO BID No Start Date 10/03/2011 Inactive niacin ER 500 mg Cap RxNorm: 477639 1 Capsule(s) PO daily No Start Date 06/08/2012 Inactive gemfibrozil 600 mg t ablet RxNorm: 155382 1 Tablet(s) PO BID No Start Date 06/07/2012 Inactive Vitamin C 500 mg Tab RxNorm: 486313 1 Tablet(s) PO daily No Start Date 07/21/2016 Inactive Zithromax Z-Jeff 250 mg tablet RxNorm: 792849 1 Tablet(s) PO UD No Start Date 11/18/2016 Inactive z pack as directed doxazosin 1 mg tablet RxNorm: 548174 1 Tablet(s) PO BID No Start Date 12/01/2016 Inactive vitamin E (dl, aceta te) 400 unit Cap RxNorm: 890074 1 Capsule(s) PO daily No Start Date 07/21/2016 Inactive famotidine 40 mg tablet RxNorm: 256350 1 Tablet(s) PO QAM No Start Date 08/01/2016 Inactive Phenergan VC-Codeine 6.25 mg-5 mg-10 mg/5 mL syrup RxNorm: 132376 5 Milliliter(s) PO Q6 as needed No Start Date 12/31/2018 Inactive hydrochlorothiazide 25 mg Tab RxNorm: 812720 1/2 Tablet(s) PO BID No Start Date 09/12/2011 Inactive Tessalon Perles 100 mg capsule RxNorm: 321102 1 -2 Capsule(s) PO TI D as needed cough No Start Date 11/03/2016 Inactive aspirin 81 mg Tab, D elayed Release RxNorm: 015034 1 Tablet(s) PO every other day No Start Date 05/18/2016 Inactive Cinnamon 1000 mg RxNorm: 2 PO daily No Start Date 05/18/2016 Inactive clonidine HCl 0.1 mg tablet RxNorm: 113729 1 Tablet(s) PO QHS an d 1 Tablet as needed No Start Date 07/21/2016 Inactive Webster 3 Cap RxNorm: 1 Capsule(s) PO BID No Start Date 12/31/2018 Inactive niacin 500 mg tablet RxNorm: 723691 1 Tablet(s) PO QHS No Start Date 01/01/2015 Inactive multivitamin Tab RxNorm: 1 Tablet(s) PO daily No Start Date 07/21/2016 Inactive methotrexate sodium 2.5 mg Tab RxNorm: 505600 Tablet(s) PO No Start Date 11/15/2011 Inactive 3 on tuesday3 on T-Bio RxNorm: 1 PO daily No Start Date 05/18/2016 Inactive Vitamin D 2,000 unit Cap RxNorm: 1 Capsule(s) PO daily No Start Date 07/21/2016 Inactive hydrochlorothiazide 12.5 mg tablet RxNorm: 497204 1 Tablet(s) PO daily No Start Date 10/27/2017 Inactive Medication Administered Medication Codes Instruc tions Start Date Status Kenalog 40 mg/mL suspension for injection RxNorm: 8622450 Milliliter 01/01/2019 No longer Active Kenalog 40 mg/mL suspension for injection RxNorm: 4067347 1Milliliter 08/31/2018 N o longer Active Kenalog 40 mg/mL suspension for injection RxNorm: 2899330 Milliliter 11/05/2016 No longer Active Kenalog 40 mg/mL suspension for injection RxNorm: 4250517 1Milliliter 09/16/2014 N o longer Active ketorolac 60 mg/2 mL intramuscular solution RxNorm: 464298 2Milliliter 03/20/2014 N o longer Active Influenza Virus Vaccine 0.5 mL RxNorm: 07/13/2011 No longer Active Pneumovax 23 25 mcg/0.5 mL Injection RxNorm: 375207 Milliliter 07/13/2011 No longer Active Immunizations Vaccine [...] 02/03/2012 VITAMIN DEFICIENCY ICD-9: 269.2 11/04/2011 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 07/13/2011 Postprandial bloating ICD-9: 787.3 [...] Ord64 K 3.8 mEq/L 12/06/2016 Comp Metabolic Vnd800 NA 134 mEq/L 12/03/2016 Comp Metabolic Xfe143 K Specimen 3+ Hemolyzed mEq/L 12/04/19 17 Comp Metabolic Dbq659 CL 106 mEq/L 12/03/2016 Comp Metabolic Iub843 CO2 20.0 mEq/L 12/03/2016 Comp Metabolic Zle352 AN ION GAP 16 12/03/2016 Comp Metabolic Pxi631 GL UCOSE 93 mg/dL 12/03/2016 Comp Metabolic Obp185 Cr eat 0.8 mg/dL 12/03/2016 Comp Metabolic Knn208 eG FR 73 ml/min/1.73m2 12/03 Comp Metabolic Dji714 BUN 14 mg/dL 12/03/2016 Comp Metabolic Mwc096 B/ C Ratio 17.1 Ratio 12/03/2016 Comp Metabolic Htl873 CA LCIUM 9.3 mg/dL 12/03/2016 Comp Metabolic Usy397 AL K PHOS 63 U/L 12/03/2016 Comp Metabolic Tee872 T(SGOT) 69 U/L 12/03/2016 Comp Metabolic Bym673 AL T(SGPT) 33 U/L 12/03/2016 Comp Metabolic Uoq780 BI LI T 1.0 mg/dL 12/03/2016 Comp Metabolic Jie566 AL BUMIN 4.3 g/dL 12/03/2016 Comp Metabolic Wlh404 TP RO 6.7 g/dL 12/03/2016 Comp Metabolic Kjr210 GL OB 2.4 g/dL 12/03/2016 Comp Metabolic Rqa529 A/ G Ratio 1.7 Ratio 12/03/2016 Comp Metabolic Mvi891 Os mo 268 mOsmo 12/03/2016 Comp Metabolic Jgm425 NA 138 mEq/L 12/18/2015 Comp Metabolic Uva665 K 4.1 mEq/L 12/18/2015 Comp Metabolic Lzg320 CL 104 mEq/L 12/18/2015 Comp Metabolic Kgq947 CO2 22.0 mEq/L 12/18/2015 Comp Metabolic Lhh614 AN ION GAP 16 12/18/2015 Comp Metabolic Hnw583 GL UCOSE 89 mg/dL 12/18/2015 Comp Metabolic Qgk890 Cr eat 0.6 mg/dL 12/18/2015 Comp Metabolic Mor866 eG FR 99 ml/min/1.73m2 12/17 Comp Metabolic Xjn752 BUN 15 mg/dL 12/18/2015 Comp Metabolic Oos002 B/ C Ratio 23.8 Ratio 12/18/2015 Comp Metabolic Isp392 CA LCIUM 10.4 mg/dL 12/18/2015 Comp Metabolic Jto903 AL K PHOS 77 U/L 12/18/2015 Comp Metabolic Yxd628 T(SGOT) 19 U/L 12/18/2015 Comp Metabolic Ccf603 AL T(SGPT) 17 U/L 12/18/2015 Comp Metabolic Uid328 BI LI T 0.8 mg/dL 12/18/2015 Comp Metabolic Ocx760 AL BUMIN 4.3 g/dL 12/18/2015 Comp Metabolic Irv791 TP RO 6.7 g/dL 12/18/2015 Comp Metabolic Scv146 GL OB 2.4 g/dL 12/18/2015 Comp Metabolic Aoc775 A/ G Ratio 1.7 Ratio 12/18/2015 Comp Metabolic Emu729 Os mo 276 mOsmo 12/18/2015 Cbc With [...] 29.5 pg 12/18/2015 Cbc With Differential Ord2 [place]% 9.4 % 12/18/2015 Cbc With Differential Ord2 [...] 2.57 K/ul 12/18/2015 Cbc With Differential Ord2 [place] ABS# 0.8 K/ul 12/18/2015 Cbc With Differential Ord2 Eos ABS# 0.1 K/ul 12/18/2015 Cbc With Differential Ord2 Baso ABS# 0.0 K/ul 12/18/2015 Cbc With Differential Ord2 New Analyzer Notice Please note new ref ranges s tarting 10-15-2015 due to implemntation of new five part differential hematolgy analyzer. 12/18/2015 Total T3 Ord42 TT3 1.0 ng/ml 07/10/2015 Free T4 Zcj186 FREE T4 0.90 ng/dL 07/09/2015 Free T3 Tnt052 Free T3 2.92 pg/ml 07/09/2015 Tsh Ord6 hTSH II 1.18 uIU/mL 07/09/2015 URINALYSIS NONAUTO W/O SCOPE 27450 Specific [place] 1.005 DateTime(Free Text in Apr) URINALYSIS NONAUTO W/O SCOPE 87544 PH 6 DateTime(Free Text in Apr) URINALYSIS NONAUTO W/O SCOPE 61190 GLUCOSE neg DateTime(Free Dano t in Aprima) URINALYSIS NONAUTO W/O SCOPE 84764 Protein neg DateTime(Free Dano t in Aprima) URINALYSIS NONAUTO W/O SCOPE 29142 Blood neg DateTime(Free Dano t in Apr) URINALYSIS NONAUTO W/O SCOPE 61212 Bilirubin neg DateTime(Free Dano t in Apr) URINALYSIS NONAUTO W/O SCOPE 48855 Ketones neg DateTime(Free Dano t in Apr) URINALYSIS NONAUTO W/O SCOPE 25139 Urobilinogen neg DateTime(Free Text in ) URINALYSIS NONAUTO W/O SCOPE 81652 Nitrite neg DateTime(Free Dano t in Apr) URINALYSIS NONAUTO W/O SCOPE 08648 Leukocytes neg DateTime(Free Text in ) Review [...] Formatting Model/CDA Sections, Assigned to/Kimberley Fagan CPT-4: 74460Opsjskq 07/06/2018 ADMIN INFLUENZA VIRU S VAC CPT-4: G0008 07/05/2017 FLU VACC PRSV FREE I NC ANTIG CPT-4: 13380 07/05/2017 THER/PROPH/DIAG INJ SC/IM CPT-4: 23256 11/05/2016 TRIAMCINOLONE ACET I [place] NOS CPT-4: J3301 11/05/2016 TRIAMCINOLONE ACET I [place] NOS CPT-4: J3301 09/16/2014 DRAIN/INJECT JOINT/B URSA CPT-4: 88857 09/16/2014 KETOROLAC TROMETHAMI NE INJ CPT-4: J1885 03/20/2014 URINALYSIS NONAUTO W /O SCOPE CPT-4: 17650 12/10/2013 PRESCRIP TRANSMIT A ERX SY CPT-4: G8553 09/17/2013 PRESCRIP TRANSMIT A ERX SY CPT-4: G8553 06/08/2012 TRIAMCINOLONE ACET I [place] NOS CPT-4: J3301 03/16/2012 INJ TRIGGER POINT 1/ 2 MUSCL CPT-4: 86633 03/16/2012 PRESCRIP TRANSMIT A ERX SY CPT-4: G8553 03/16/2012 ADMIN INFLUENZA VIRU S VAC CPT-4: G0008 07/13/2011 FLULAVAL VACC, 3 YRS & >, IM CPT-4: Q2036 07/13/2011 ADMIN PNEUMOCOCCAL V ACCINE SNOMED CT: 07745930 CPT-4: G0009 07/13/2011 Pneumococcal Polysac charide Vaccine, 23-Valent, Ad CPT-4: 61275 07/13/2011 Vital Signs Date Vital 03/20/2019 Blood Pressure 1: 134/84 Code: 8480-6 BMI: 36.7 Code: 62226-9 Heart Rate 1: 63 bpm Height: 5'3" SpO2: 97% Weight: 207 lbs 03/15/2019 Blood Pressure 1: 138/76 Code: 8480-6 BMI: 36.7 Code: 50350-0 Heart Rate 1: 64 bpm Height: 5'3" SpO2: 98% Weight: 207 lbs 01/08/2019 Blood Pressure 1: 128/70 Code: 8480-6 Heart Rate 1: 67 bpm SpO2: 97% 01/01/2019 Blood Pressure 1: 138/80 Code: 8480-6 BMI: 36.3 Code: 49242-1 Heart Rate 1: 64 bpm Height: 5'3" SpO2: 98% Weight: 205 lbs 12/18/2018 Blood Pressure 1: 120/62 Code: 8480-6 BMI: 36.0 Code: 46563-8 Heart Rate 1: 67 bpm Height: 5'3" SpO2: 97% Weight: 203 lbs 09/18/2018 Blood Pressure 1: 126/70 Code: 8480-6 BMI: 36.3 Code: 61297-0 Heart Rate 1: 58 bpm Height: 5'3" SpO2: 98% Weight: 205 lbs 08/31/2018 Blood Pressure 1: 148/76 Code: 8480-6 BMI: 37.0 Code: 35309-3 Heart Rate 1: 60 bpm Height: 5'3" SpO2: 98% Weight: 209 lbs 08/14/2018 Blood Pressure 1: 140/80 Code: 8480-6 BMI: 37.2 Code: 57706-4 Heart Rate 1: 76 bpm Height: 5'3" SpO2: 96% Weight: 210 lbs 05/22/2018 Blood Pressure 1: 150/62 Code: 8480-6 BMI: 36.7 Code: 46932-1 Heart Rate 1: 74 bpm Height: 5'3" SpO2: 98% Weight: 207 lbs 11/18/2017 Blood Pressure 1: 122/66 Code: 8480-6 BMI: 35.8 Code: 24575-4 Heart Rate 1: 59 bpm Height: 5'3" SpO2: 97% Weight: 202 lbs 08/03/2017 Blood Pressure 1: 122/60 Code: 8480-6 BMI: 36.0 Code: 98315-1 Heart Rate 1: 60 bpm Height: 5'3" SpO2: 97% Weight: 203 lbs 07/05/2017 Blood Pressure 1: 140/76 Code: 8480-6 BMI: 36.0 Code: 16062-0 Heart Rate 1: 58 bpm Height: 5'3" SpO2: 98% Weight: 203 lbs 12/02/2016 Blood Pressure 1: 122/70 Code: 8480-6 BMI: 34.4 Code: 73971-4 Heart Rate 1: 66 bpm Height: 5'3" SpO2: 99% Temperature: 36.4 (C ) / 97.5 (F) Weight: 194 lbs 11/22/2016 Blood Pressure 1: 102/60 Code: 8480-6 BMI: 34.2 Code: 74408-8 Heart Rate 1: 110 bpm Height: 5'3" SpO2: 98% Temperature: 36.7 (C ) / 98.0 (F) Weight: 193 lbs 11/05/2016 Blood Pressure 1: 140/62 Code: 8480-6 BMI: 36.1 Code: 03096-0 Heart Rate 1: 102 bpm Height: 5'3" SpO2: 97% Temperature: 37.1 (C ) / 98.7 (F) Weight: 204 lbs 07/22/2016 Blood Pressure 1: 158/80 Code: 8480-6 Blood Pressure 1: 160/76 Code: 8480-6 BMI: 36.8 Code: 83740-0 Heart Rate 1: 56 bpm Height: 5'3" SpO2: 98% Weight: 208 lbs 05/19/2016 Blood Pressure 1: 150/78 Code: 8480-6 Blood Pressure 1: 122/69 Code: 8480-6 BMI: 37.0 Code: 38137-9 Heart Rate 1: 61 bpm Height: 5'3" SpO2: 98% Weight: 209 lbs 02/13/2016 Blood Pressure 1: 140/76 Code: 8480-6 BMI: 36.8 Code: 68837-9 Heart Rate 1: 64 bpm Height: 5'3" SpO2: 97% Weight: 208 lbs 01/13/2016 Blood Pressure 1: 170/70 Code: 8480-6 BMI: 36.8 Code: 99045-5 Heart Rate 1: 65 bpm Height: 5'3" SpO2: 95% Weight: 208 lbs 01/02/2016 Blood Pressure 1: 150/88 Code: 8480-6 BMI: 36.8 Code: 44324-1 Heart Rate 1: 61 bpm Height: 5'3" SpO2: 98% Weight: 208 lbs 12/18/2015 Blood Pressure 1: 148/90 Code: 8480-6 BMI: 37.6 Code: 30152-4 Heart Rate 1: 64 bpm Height: 5'3" SpO2: 96% Weight: 212 lbs 09/08/2015 Blood Pressure 1: 130/88 Code: 8480-6 BMI: 37.0 Code: 96276-5 Heart Rate 1: 62 bpm Height: 5'3" SpO2: 97% Weight: 209 lbs 07/09/2015 Blood Pressure 1: 142/82 Code: 8480-6 BMI: 36.4 Code: 54501-4 Heart Rate 1: 66 bpm Height: 5'3" SpO2: 97% Weight: 205 lbs 5 oz 01/16/2015 Blood Pressure 1: 122/80 Code: 8480-6 BMI: 35.6 Code: 36749-9 Heart Rate 1: 67 bpm Height: 5'3" SpO2: 98% Weight: 201 lbs 01/03/2015 Blood Pressure 1: 122/70 Code: 8480-6 BMI: 35.6 Code: 20948-7 Heart Rate 1: 61 bpm Height: 5'3" Respiratory Rate: 16 bpm SpO2: 98% Weight: 201 lbs 09/16/2014 Blood Pressure 1: 132/78 Code: 8480-6 BMI: 34.9 Code: 65266-6 Heart Rate 1: 56 bpm Height: 5'3" Weight: 197 lbs 08/15/2014 Blood Pressure 1: 152/80 Code: 8480-6 Blood Pressure 2: 160/82 Code: 8480-6 BMI: 34.0 Code: 21756-7 Heart Rate 1: 75 bpm Height: 5'3" Weight: 192 lbs 06/12/2014 Blood Pressure 1: 136/82 Code: 8480-6 BMI: 34.9 Code: 99958-3 Heart Rate 1: 58 bpm Height: 5'3" SpO2: 96% Weight: 197 lbs 03/20/2014 Blood Pressure 1: 140/72 Code: 8480-6 BMI: 34.9 Code: 74606-4 Heart Rate 1: 60 bpm Height: 5'3" Weight: 197 lbs 12/10/2013 Blood Pressure 1: 132/78 Code: 8480-6 BMI: 35.1 Code: 19833-5 Heart Rate 1: 68 bpm Height: 5'3" Weight: 198 lbs 09/17/2013 Blood Pressure 1: 128/78 Code: 8480-6 BMI: 34.9 Code: 67817-7 Heart Rate 1: 68 bpm Height: 5'3" Weight: 197 lbs 05/21/2013 Blood Pressure 1: 128/82 Code: 8480-6 BMI: 35.6 Code: 23020-8 Heart Rate 1: 80 bpm Height: 5'3" Weight: 201 lbs 01/17/2013 Blood Pressure 1: 138/72 Code: 8480-6 BMI: 36.7 Code: 40713-5 Heart Rate 1: 60 bpm Height: 5'3" [...] 1: 140/78 Code: 8480-6 BMI: 40.0 Code: 24536-6 Heart Rate 1: 64 bpm Height: 5'3" Respiratory Rate: 16 bpm Weight: 226 lbs 11/04/2011 Blood Pressure 1: 136/76 Code: 8480-6 Heart Rate 1: 68 bpm Respiratory Rate: 16 bpm Weight: 226 lbs 07/13/2011 Blood Pressure 1: 142/80 Code: 8480-6 BMI: 40.0 Code: 17699-2 Heart Rate 1: 60 bpm Height: 5'4" [...] ago 03/16/2012 None shoulder pain Quality ac rincon 03/16/2012 None shoulder pain Quality sh kate [...] Encounters Encounter Performer Loca tion Codes Date 43060 EST. PATIENT, LEVEL II Diagnosis: Pain in right knee[ICD10: M25.561] Diagnosis: Unspecified fracture of shaft of right fibula, initial encounter for closed fracture[ICD10: S82.401A] Юлия Manuel MD, [facility] CPT-4: 88912 03/20/2019 [id number] EST. PATIENT, LEVEL III Diagnosis: Asymptomatic varicose veins of right lower extremity[ICD10: I83.91] Юлия Manuel MD, [facility] CPT-4: 05014 03/15/2019 ([id number]) 16659 EST. P ATIENT, LEVEL II Diagnosis: Otalgia, right ear[ICD10: H92.01] Diagnosis: Other specified disorders of teeth and supporting structures[ICD10: K08.89] Юлия Manuel MD, [facility] CPT-4: 93767 01/08/2019 ([id number]) 51693 EST. P ATIENT, LEVEL III Diagnosis: Otalgia, right ear[ICD10: H92.01] Юлия Manuel MD, [facility] CPT- 4: 89931 01/01/2019 ([id number]) 84392 EST. 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 P ATIENT, LEVEL III Diagnosis: Nasal congestion[ICD10: R09.81] Diagnosis: Other allergic rhinitis[ICD10: J30.89] Юлия Manuel MD, [facility] CPT-4: 24820 08/31/2018 ([id number]) 58390 EST. P ATIENT, LEVEL III Diagnosis: Acute recurrent maxillary sinusitis[ICD10: J01.01] Юлия Manuel MD, [facility] CPT-4: 80629 08/14/2018 80098 EST. PATIENT, LEVEL III Diagnosis: Pain in right shoulder[ICD10: M25.511] Diagnosis: Pain in right arm[ICD10: M79.601] Willow Manuel MD, [facility] CPT-4: 01135 05/22/2018 ([id number]) 99228 EST. 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 PATIENT, LEVEL III Diagnosis: Other specified intestinal infections[ICD10: A08.8] Willow Manuel MD, [facility] CPT-4: 20743 08/03/2017 ([id number]) 82023 EST. 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 P ATIENT, LEVEL III Diagnosis: Essential (primary) hypertension[ICD10: I10] Юлия Manuel MD, [facility] CPT-4: 48911 12/02/2016 ([id number]) 08548 EST. P ATIENT, LEVEL III Diagnosis: Essential (primary) hypertension[ICD10: I10] Diagnosis: Allergic rhinitis due to pollen[ICD10: J30.1] Giuliana Manuel MD, [facility] CPT-4: 36235 11/22/2016 98180 EST. PATIENT, LEVEL III Diagnosis: Acute laryngopharyngitis[ICD10: J06.0] Diagnosis: Influenza due to unidentified influenza virus with other respiratory manifestations[ICD10: J11.1] Willow Manuel MD, [facility] CPT-4: 64099 11/05/2016 ([id number]) 22844 EST. P ATIENT, LEVEL III Diagnosis: Gastro-esophageal reflux disease without esophagitis[ICD10: K21.9] Diagnosis: Essential (primary) hypertension[ICD10: I10] Giuliana Manuel MD, C CPT-4: 77552 07/22/2016 ([id number]) 06078 EST. P ATIENT, LEVEL IV Diagnosis: Essential (primary) hypertension[ICD10: I10] Diagnosis: Abdominal distension (gaseous)[ICD10: R14.0] Giuliana Manuel MD, [facility] CPT-4: 99540 05/19/2016 ([id number]) 86065 EST. P ATIENT, LEVEL III Diagnosis: Essential (primary) hypertension[ICD10: I10] Юлия Manuel MD, [facility] CPT-4: 84970 02/13/2016 ([id number]) 43885 EST. P ATIENT, LEVEL III Diagnosis: Essential (primary) hypertension[ICD10: I10] Юлия Manuel MD, [facility] CPT-4: 04247 01/13/2016 87447 EST. PATIENT, LEVEL IV Diagnosis: Essential (primary) hypertension[ICD10: I10] Diagnosis: Body mass index (BMI) 36.0-36.9, adult[ICD10: Z68.36] Willow Manuel MD, [facility] CPT-4: 13584 01/02/2016 ([id number]) 59100 EST. P ATIENT, LEVEL III Diagnosis: Essential (primary) hypertension[ICD10: I10] Юлия Manuel MD, [facility] CPT-4: 76643 12/18/2015 ([id number]) 87492 EST. P ATIENT, LEVEL IV Diagnosis: Essential (primary) hypertension[ICD10: I10] Diagnosis: Benign paroxysmal vertigo, bilateral[ICD10: H81.13] Diagnosis: Radiculopathy, cervical region[ICD10: M54.12] Giuliana Manuel MD, C CPT-4: 94695 09/08/2015 ([id number]) 43357 EST. P ATIENT, LEVEL IV Diagnosis: Other specified nonscarring hair loss[ICD10: L65.8] Diagnosis: Myositis, unspecified[ICD10: M60.9] Diagnosis: Psoriasis, unspecified[ICD10: L40.9] Diagnosis: Essential (primary) hypertension[ICD10: I10] Giuliana Manuel MD, [facility] CPT-4: 96275 07/09/2015 ([id number]) 43054 EST. P ATIENT, LEVEL III Diagnosis: ESSENTIAL HYPERTENSION[ICD9: 401.9] Giuliana Manuel MD, [facility] CPT- 4: 27980 01/16/2015 ([id number]) 49224 EST. P ATIENT, LEVEL III Diagnosis: Shoulder pain[ICD9: 719.41] Diagnosis: ESSENTIAL HYPERTENSION[ICD9: 401.9] Diagnosis: PALPITATIONS[ICD9: 785.1] Giuliana Manuel MD, [facility] CPT-4: 67935 01/03/2015 ([id number]) 04281 EST. P ATIENT, LEVEL III Diagnosis: Sacroiliitis[ICD9: 720.2] Diagnosis: Back pain[ICD9: 724.5] Diagnosis: ESSENTIAL HYPERTENSION[ICD9: 401.9] Giuliana Manuel MD, [facility] CPT- 4: 70539 09/16/2014 ([id number]) 14886 EST. P ATIENT, LEVEL IV Diagnosis: ESSENTIAL HYPERTENSION[ICD9: 401.9] Diagnosis: Arrhythmia[ICD9: 427.9] Diagnosis: Nausea[ICD9: 787.02] Giuliana Manuel MD, [facility] CPT-4: 27448 08/15/2014 ([id number]) 35236 EST. P ATIENT, LEVEL IV Diagnosis: ESSENTIAL HYPERTENSION[ICD9: 401.9] Diagnosis: Back pain[ICD9: 724.5] Diagnosis: Allergic reaction[ICD9: 995.3] Giuliana Manuel MD, [facility] CPT-4: 50428 06/12/2014 ([id number]) 24950 EST. P ATIENT, LEVEL III Diagnosis: Thoracic back pain[ICD9: 724.1] Diagnosis: MYALGIA AND MYOSITIS[ICD9: 729.1] Giuliana Manuel MD, [facility] CPT-4: 76920 03/20/2014 ([id number]) 42161 EST. P ATIENT, LEVEL IV Diagnosis: HYPERLIPIDEMIA[ICD9: 272.4] Diagnosis: ESSENTIAL HYPERTENSION[SNOMED: 28623366] Diagnosis: ABDOM PAIN NOS SITE[ICD9: 789.00] Giuliana Manuel MD, [facility] CPT-4: 39302 12/10/2013 ([id number]) 59098 EST. P ATIENT, LEVEL IV Diagnosis: ESSENTIAL HYPERTENSION[SNOMED: 45671604] Diagnosis: HYPERLIPIDEMIA[ICD9: 272.4] Giuliana Manuel MD, [facility] CPT-4: 05662 09/17/2013 ([id number]) 82107 EST. P ATIENT, LEVEL IV Diagnosis: ESSENTIAL HYPERTENSION[SNOMED: 02915838] Diagnosis: OBESITY[ICD9: 278.00] Diagnosis: Back pain[ICD9: 724.5] Giuliana Manuel MD, [facility] CPT-4: 29172 05/21/2013 ([id number]) 82766 EST. P ATIENT, LEVEL IV Diagnosis: ESSENTIAL HYPERTENSION[SNOMED: 74726459] Diagnosis: HYPERLIPIDEMIA[ICD9: 272.4] Diagnosis: Abdominal pain[ICD9: 789.00] Diagnosis: BENIGN PAROXYSMAL VERTIGO[ICD9: 386.11] Giuliana Manuel MD, [facility] CPT-4: 24131 01/17/2013 ([id number]) 38444 EST. P ATIENT, LEVEL IV Diagnosis: ESSENTIAL HYPERTENSION[SNOMED: 52235103] Diagnosis: BENIGN PAROXYSMAL VERTIGO[ICD9: 386.11] Diagnosis: Hair loss[ICD9: 704.00] Diagnosis: Vitamin d deficiency[ICD9: 268.9] Diagnosis: Bleeding from the nose[ICD9: 784.7] Giuliana Manuel MD, [facility] CPT- 4: 95188 09/20/2012 31368 EST. PATIENT, LEVEL IV Diagnosis: BPPV (benign paroxysmal positional vertigo)[ICD9: 386.11] Diagnosis: HYPERLIPIDEMIA[ICD9: 272.4] Diagnosis: ESSENTIAL HYPERTENSION[SNOMED: 42444691] Giuliana Manuel MD, C CPT-4: 63130 06/08/2012 ([id number]) 91572 EST. P ATIENT, LEVEL IV Diagnosis: BPPV (benign paroxysmal positional vertigo)[ICD9: 386.11] Diagnosis: Diverticulitis[ICD9: 562.11] Diagnosis: Abdominal pain[ICD9: 789.00] Giuliana Manuel MD, [facility] CPT-4: 13240 04/10/2012 ([id number]) 39062 EST. P ATIENT, LEVEL III Diagnosis: Neck pain[ICD9: 723.1] Diagnosis: Acute upper back pain[ICD9: 724.1] Giuliana Manuel MD, [facility] CPT- 4: 91920 03/16/2012 ([id number]) 58794 EST. P ATIENT, LEVEL IV Diagnosis: HYPERLIPIDEMIA[ICD9: 272.4] Diagnosis: ESSENTIAL HYPERTENSION[SNOMED: 04732296] Diagnosis: Constipation - functional[ICD9: 564.09] Giuliana Manuel MD, [facility] CPT-4: 42278 02/03/2012 ([id number]) 25055 EST. P ATIENT, LEVEL IV Diagnosis: HYPERLIPIDEMIA[ICD9: 272.4] Diagnosis: VITAMIN DEFICIENCY[ICD9: 269.2] Diagnosis: ESSENTIAL HYPERTENSION[SNOMED: 69731128] Giuliana Manuel MD, C CPT-4: 14450 11/04/2011 69258 EST. 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 03/15/2019 Appointment: Юлия Rojas WPtel: [phone] [phone] (15 min) Moderate 03/15/2019 Patient Education: [...] of plan. 01/08/2019 Appointment: Юлия Rojas WPtel: [phone] (30 min) Complex 01/08/2019 Patient Education: Patient Medication Summary Completed 01/08/2019 Visit Plan: Right ear pain -concern for trigeminal neuralgia -she does have some sinus tenderness -will give kenalog injection today - continue anti histamine daily -monitor symptoms and call if persistent, worsen o r new symptoms develop. Patient verbalized understanding of plan. 01/01/2019 Appointment: Юлия Rojas WPtel: [phone] (30 min) Complex 01/01/2019 Patient Education: [...] not improving. 12/18/2018 Appointment: Giuliana Manuel WPtel: [facility] (15 min) Moderate 12/18/2018 Patient Education: Patient [...] low back. 09/18/2018 Appointment: Giuliana Manuel WPtel: [facility] (15 min) Moderate 09/18/2018 Patient Education: Patient [...] allergy spray. 08/31/2018 Appointment: Юлия Rojas WPtel: [phone] [place] (15 min) Moderate 08/31/2018 Patient [...] improve. 05/22/2018 Appointment: Willow Garcia WPtel: [phone] [facility] (15 min) Moderate 05/22/2018 Patient Education: Patient [...] not improving. 11/18/2017 Appointment: Giuliana Manuel WPtel: [facility] [place] (15 min) Moderate 11/18/2017 Patient Education: Patient Medication Summary Completed 11/18/2017 Appointment: Giuliana Manuel WPtel: [phone] [facility] [place] (15 min) Moderate 11/07/2017 Visit Plan: [...] not improved. 08/03/2017 Appointment: Willow Garcia WPtel: [facility] (30 min) Complex 08/03/2017 Patient Education: [...] D daily. 07/05/2017 Appointment: Giuliana Manuel WPtel: [facility] (15 min) Moderate 07/05/2017 Patient Education: Patient Medication Summary Completed 07/05/2017 Patient Education: Obesity Completed 07/05/2017 Appointment: Giuliana Manuel WPtel: [facility] (15 min) Moderate 06/27/2017 Appointment: Giuliana Manuel WPtel: [facility] (15 min) Moderate 06/21/2017 Appointment: Юлия Rojas WPtel: [phone] [place] (30 min) Complex 12/23/2016 Visit [...] RESTART HCTZ 12/02/2016 Appointment: Юлия Rojas WPtel: [phone] (30 min) Complex 12/02/2016 Patient Education: [...] 7 days 11/22/2016 Appointment: Giuliana Manuel WPtel: [facility] [address] (15 min) Moderate 11/22/2016 Patient Education: Patient Medication Summary Completed 11/22/2016 Patient Education: Obesity Completed 11/22/2016 Visit Plan: Influenza - pt started on tamiflu - pt to start on anti-inflammatories, tylenol and monitor symptoms. Pt to call if not improving. Pt to alert any close contacts as to illness. 11/05/2016 Appointment: Willow Garcia WPtel: [facility] (30 min) Complex 11/05/2016 Patient Education: [...] on carafate 07/22/2016 Appointment: Giuliana Manuel WPtel: [facility] (15 min) Moderate 07/22/2016 Patient Education: Patient Medication Summary Completed 07/22/2016 Patient Education: Obesity Completed 07/22/2016 Care Plan: Referral Order SNOMED-CT : [id number] Pending 07/22/2016 Visit Plan: Hypertension - well [...] Obesity Completed 05/19/2016 Appointment: Giuliana Manuel WPtel: [facility] [place] [place] (15 min) Moderate 05/17/2016 Visit Plan: Hypertension - well con trolled - continue with current medications, continue with no added salt diet. Pt has been encouraged to exercise daily. The pt has been advised to call the office if there are any acute concerns about change in blood pressure readings at home. 02/13/2016 Appointment: Юлия Rojas WPtel: [phone] [place] (30 min) Complex 02/13/2016 Patient [...] Completed 12/18/2015 Appointment: Giuliana Manuel WPtel: [phone] [facility] (15 min) Moderate 12/08/2015 Referral: Jared Lafleur [address] [place], [place] [id number] Referral Completed 10/17/2015 Visit Plan: Hypertension - [...] stress test. 09/08/2015 Appointment: Giuliana Manuel WPtel: [phone] [facility] (15 min) Moderate 09/08/2015 Patient Education: Patient Medication Summary Completed 09/08/2015 Patient Education: .Cervicalgia Neck Pain Completed 09/08/2015 Care Plan: Referral Order SNOMED-CT : [id number] Ordered 09/08/2015 Visit Plan: Hypertension - uncontro [...] checked today. 07/09/2015 Appointment: Giuliana Manuel WPtel: [address] [place], [place] [phone] (15 min) Moderate 07/09/2015 Patient Education: Patient Medication Summary Completed 07/09/2015 Appointment: Tonia Manuely WPtel: [address] [place], [place] [phone] (15 min) Moderate 07/07/2015 Appointment: HallettTonia guzmany WPtel: [address] [place], [place] [phone] Follow up 03/17/2015 Visit Plan: Hypertension - well con trolled - continue with current medications, continue with no added salt diet. Pt has been encouraged to exercise daily. The pt has been advised to call the office if there are any acute concerns about change in blood pressure readings at home. Palpitations resolved. 01/16/2015 Appointment: Mar Giuliana WPtel: [address] [place], [place] [phone] Other 01/16/2015 Patient Education: Patient Medication Summary [...] pain symptoms. 01/03/2015 Appointment: Tonia Manuely WPtel: [address] [place], [place] [phone] Follow up 01/03/2015 Patient Education: Patient Medication [...] Hypertension Completed 09/16/2014 Appointment: Giuliana Manuel WPtel: [address] [place] [address] Follow up 09/09/2014 Visit Plan: Hypertension - [...] symptoms worsen. 08/15/2014 Appointment: Giuliana Manuel WPtel: [facility]5 [facility] Sick 08/15/2014 Patient Education: Patient Medication Summary Completed 08/15/2014 Patient Education: Hypertension Completed 08/15/2014 Care Plan: Referral Order SNOMED-CT : [id number] Ordered 08/15/2014 Appointment: Giuliana Manuel WPtel: [address] [place], [place] [phone] Follow up 06/18/2014 Visit Plan: [facility]. Rash - reaction [...] home. 06/12/2014 Appointment: Giuliana Manuel WPtel: [phone] [facility] [facility] 06/12/2014 Patient Education: Patient Medication Summary Completed 06/12/2014 Patient Education: Hypertension Completed 06/12/2014 Care Plan: Referral Order SNOMED-CT : [id number] Ordered 06/12/2014 Visit Plan: Hypertension - well [...] spine xrays. 03/20/2014 Appointment: Giuliana Manuel WPtel: [facility] [place] Follow up 03/20/2014 Patient Education: Patient Medication [...] UTI 12/10/2013 Appointment: Giuliana Manuel WPtel: [phone] Follow up 12/10/2013 Patient Education: Patient Medication [...] times weekly. 09/17/2013 Appointment: Giuliana Manuel WPtel: [phone] [facility] Follow up 09/17/2013 Patient Education: Patient [...] muscle rub. 05/21/2013 Appointment: Giuliana Manuel WPtel: [phone] Follow up 05/21/2013 Patient Education: Patient Medication [...] vertigo. 01/17/2013 Appointment: Giuliana Manuel WPtel: [phone] [facility] Follow up 01/17/2013 Patient Education: Patient [...] if needed. 09/20/2012 Appointment: Giuliana Manuel WPtel: [phone] [place] Follow up 09/20/2012 Patient Education: Patient Medication [...] intolerance begin. 06/08/2012 Appointment: Giuliana Manuel WPtel: [address] [place], [place] [phone] Follow up 06/08/2012 Patient Education: Patient Medication [...] or popcorn. 04/10/2012 Appointment: Giuliana Manuel WPtel: [address] [place], [place] [phone] Other 04/10/2012 Patient Education: Patient Medication Summary [...] by Tuesday. 03/16/2012 Appointment: Giuliana Manuel WPtel: [facility] Other 03/16/2012 Patient Education: Patient Medication Summary [...] this regimen. 02/03/2012 Appointment: Giuliana Manuel WPtel: [address] [place] [address] Other 02/03/2012 Patient Education: Patient Medication Summary [...] vitamin D once a week. 11/04/2011 Appointment: Giuliaan Manuel WPtel: [facility] Follow up 11/04/2011 Patient Education: Patient Medication [...] She will monitor her intake. Allergies - [facility] for the headaches to see ifnallergy medication helps to prevent the headaches flu shot pneumonia shot 07/13/2011 Appointment: Giuliana Manuel WPtel: [address] [place], [place] [phone] Other 07/13/2011 Patient Education: Patient Medication Summary Completed 07/13/2011 Patient Education: .Amazing charts Diabe tic meal planning guide Completed 07/13/2011 Referral: Jared Lafleur [facility] [place] Referral Appointment Requested Referral: Duarte Catalan Referral Appointment Requested Referral: Dr. Willams WPtel: [address] [place], [place] [phone] [place] Referral Initiated Referral: [facility] WPtel: [address] [phone] [place] Referral Initiated Instructions Comment Add a [...] . Back pain - referr al to [facility] therapy. Rash - reaction to [...] She will monitor her intake. Allergies - zte for the headaches to see ifnallergy medication [...]
[2020-01-21] MEDS ORDERED: CARVEDILOL 6.25 MG (COREG) TAB PO ONE (14:00)
--- OUTSIDE RECORDS SUMMARY | 2020-01-21 14:02 | XMS REPORT | CCD ---
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/08/2015 Marital status Unknown M arried 07/13/[address]: 603851864 Nonsmoker 07/13/[address]: 919188198 Never drinks alcohol 07/13/2011 Allergies, Adverse Reactions, Alerts Substance Reaction Codes Entered Date Inactivated Date Status Soy Unknown 07/13/2011 No Inactive Date Active Cardizem RxNorm: 736453 05/19/2016 No Inactive Date Active Metoprolol Succinate anaphylaxis, rash, RxNorm: 6918 02/13/2016 No Inactive Date Active Past Medical History Illness Codes Condition Status Onset Date Resolved Date Asymptomatic varicos e veins of right lower [...] pain ICD-9: 789.00 Active 07/13/2011 Unknown 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 Active 07/13/2011 Unknown OBESITY ICD-9: 278.00 Active 07/13/2011 Unknow n Postprandial bloating ICD-9: 787.3 Active 07/13/2011 Unknown Seasonal allergies ICD- 9: 477.9 Active 07/13/2011 Unknown VAC STREP PNEUMONIAE -FLU ICD-9: V06.6 Active 07/03 Unknown Problems Condition Codes Effectiv e Dates Condition Status Asymptomatic varicos e veins of right lower [...] Abdominal pain ICD-9: 789.00 07/13/2011 Active 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 07/13/2011 Active OBESITY ICD-9: 278.00 07/13/2011 Active Postprandial bloating ICD-9: 787.3 07/13/2011 Active Seasonal allergies ICD- 9: 477.9 07/13/2011 Active VAC STREP PNEUMONIAE -FLU ICD-9: V06.6 07/13/2011 Active Medications Medication Codes Instruc tions Start Date Stop Date Sta tus Fill Instructions doxazosin 1 mg tablet RxNorm: 992396 TAKE 1 TABLET BY M[facility]TH [facility] 02/27/2019 11/23/2019 Ac tive - Ref: [id number] hydrochlorothiazide 12.5 mg tablet RxNorm: 566941 TAKE 1 TABLET BY MOUT H EVERY DAY 02/27/2019 11/23/2019 Ac tive - Ref: [id number] famotidine 40 mg tablet RxNorm: 595952 TAKE 1 TABLET BY MOUTH EVERY MORNING 02/27/2019 11/23/2019 Ac tive - Ref: [id number] Kenalog 40 mg/mL karl pension for injection RxNorm: 0516728 Milliliter(s) Inj 01/01/2019 01/01/2019 In active losartan 25 mg tablet RxNorm: 641142 1 Tablet(s) PO BID 11/01/2018 10/26/2019 Active losartan 25 mg tablet RxNorm: 359186 1 Tablet(s) PO BID 11/01/2018 10/31/2018 Inactive hydrochlorothiazide 12.5 mg tablet RxNorm: 478102 TAKE 1 TABLET BY MOUT H EVERY DAY 10/02/2018 02/26/2019 In active - First Attempt Ref: [id number] famotidine 40 mg tablet RxNorm: 679150 TAKE 1 TABLET BY MOUTH EVERY MORNING 10/02/2018 02/26/2019 In active - First Attempt Ref: [id number] doxazosin 1 mg tablet RxNorm: 419041 TAKE 1 TABLET BY MOUTH [facility] DAY [facility] 10/02/2018 02/26/2019 Inactive - First Attempt Ref: [id number] naproxen 500 mg tablet RxNorm: 168729 1 Tablet(s) PO BID 09/18/2018 09/24/2018 Inactive diclofenac 1 % topic al gel RxNorm: 893516 2 Application TOP QID 09/18/2018 11/16/2018 Inactive Kenalog 40 mg/mL karl pension for injection RxNorm: 4054463 1 Milliliter(s) Inj 08/31/2018 08/31/2018 In active clonidine HCl 0.1 mg tablet RxNorm: 317887 1/2 Tablet(s) PO BID 08/16/2018 08/10/2019 Active amoxicillin 500 mg t ablet RxNorm: 215529 1 Tablet(s) PO TID 08/14/2018 08/20/2018 Inactive losartan 25 mg tablet RxNorm: 641197 1 Tablet(s) PO BID 05/02/2018 05/01/2018 Inactive losartan 25 mg tablet RxNorm: 503091 1 Tablet(s) PO BID 05/02/2018 10/31/2018 Inactive losartan 25 mg tablet RxNorm: 474293 1 Tablet(s) PO BID 01/30/2018 05/01/2018 Inactive Vitamin D 2,000 unit capsule RxNorm: 1 Capsule(s) PO daily 11/18/2017 No Stop Date Active atenolol 25 mg tablet RxNorm: 489267 1 Tablet(s) PO daily 11/18/2017 11/12/2018 Inactive atenolol 25 mg tablet RxNorm: 575423 1 Tablet(s) PO BID managed by Dr Lafleur 11/18/2017 11/17/2017 In active clonidine HCl 0.1 mg tablet RxNorm: 646940 1/2 Tablet(s) PO BID 11/18/2017 08/15/2018 Inactive doxazosin 1 mg tablet RxNorm: 151942 1 Tablet(s) PO daily at midnight 11/18/2017 10/01/2018 In active midnight losartan 25 mg tablet RxNorm: 422332 1 Tablet(s) PO BID 11/18/2017 01/29/2018 Inactive hydrochlorothiazide 12.5 mg tablet RxNorm: 228093 1 Tablet(s) PO daily 11/18/2017 10/01/2018 In active famotidine 40 mg tablet RxNorm: 808919 1 Tablet(s) PO daily TAKE 1 TABLET BY MO UTH EVERY MORNING 11/18/2017 10/01/2018 Inactive - Ref: [id number] hydrochlorothiazide 12.5 mg tablet RxNorm: 184131 1 Tablet(s) PO daily 10/28/2017 11/17/2017 In active famotidine 40 mg tablet RxNorm: 345789 TAKE 1 TABLET BY MOUTH EVERY MORNING 10/04/2017 11/17/2017 In active - Ref: [id number] clonidine HCl 0.1 mg tablet RxNorm: 425489 1/2 Tablet(s) PO BID 07/05/2017 11/17/2017 Inactive doxazosin 1 mg tablet RxNorm: 538156 1 Tablet(s) PO daily at midnight 07/05/2017 11/17/2017 In active midnight doxazosin 1 mg tablet RxNorm: 149313 1 Tablet(s) PO BID 12/02/2016 2017 Inactive midnight prednisone 20 mg tablet RxNorm: 809882 3 Tablet(s) PO daily 11/22/2016 11/26/2016 Inactive Tessalon Perles 100 mg capsule RxNorm: 725667 1 -2 Capsule(s) PO TI D as needed cough 11/19/2016 12/31/2018 Inactive Zithromax Z-Jeff 250 mg tablet RxNorm: 941866 1 Tablet(s) PO UD 11/19/2016 12/01/2016 Inactive z pack as directed Tamiflu 75 mg capsule RxNorm: 236586 1 Capsule(s) PO BID 11/05/2016 11/09/2016 Inactive Kenalog 40 mg/mL karl pension for injection RxNorm: 5248522 Milliliter(s) Inj 11/05/2016 11/05/2016 In active Tessalon Perles 100 mg capsule RxNorm: 901262 1 -2 Capsule(s) PO TI D as needed cough 11/04/2016 11/18/2016 Inactive famotidine 40 mg tablet RxNorm: 567118 1 Tablet(s) PO QAM 10/25/2016 10/03/2017 Inactive famotidine 40 mg tablet RxNorm: 730745 1 Tablet(s) PO QAM 08/02/2016 10/24/2016 Inactive Carafate 1 gram tablet RxNorm: 274116 1 Tablet(s) PO TID DISSOLVE THE PILL IN 10ML OF WATER 07/22/2016 10/19/2016 Inactive clonidine HCl 0.1 mg tablet RxNorm: 086384 1 Tablet(s) PO BID an d 1 tablet as needed 07/22/2016 12/01/2016 Inactive Cinnamon 1000 mg RxNorm: 1 PO daily 05/19/2016 No Stop Date Active aspirin 81 mg tablet ,delayed release RxNorm: 547312 1 Tablet(s) PO QHS 05/19/2016 11/27/2018 In active losartan 25 mg tablet RxNorm: 855855 1 Tablet(s) PO BID 05/19/2016 11/17/2017 Inactive atenolol 25 mg tablet RxNorm: 969409 1.5 Tablet(s) PO BID 02/13/2016 07/21/2016 Inactive losartan 25 mg tablet RxNorm: 176772 2 Tablet(s) PO BID 01/13/2016 05/11/2016 Inactive Cardizem CD 240 mg c apsule,extended release RxNorm: 864369 1 Capsule(s) PO daily 01/13/2016 02/12/2016 In active losartan 100 mg tablet RxNorm: 994919 1/2 Tablet(s) PO BID 01/08/2016 01/12/2016 Inactive losartan 25 mg tablet RxNorm: 723167 2 Tablet(s) PO QPM 1 Tablet(s) PO QPM 12/18/2015 01/07/2016 In active atenolol 25 mg tablet RxNorm: 723398 1.5 Tablet(s) PO BID TAKE ONE TABLET BY MOUTH TWICE A DAY 12/18/2015 01/12/2016 Inactive atenolol 25 mg tablet RxNorm: 577034 Tablet(s) TAKE ONE TABLET BY MOUTH TWICE A DAY 11/14/2015 12/17/2015 Inactive losartan 25 mg tablet RxNorm: 963800 Tablet(s) 1 Tablet(s) PO QPM 11/14/2015 12/17/2015 Inactive spironolactone 25 mg tablet RxNorm: 817835 1 Tablet(s) PO daily 11/14/2015 12/14/2015 Inactive atenolol 25 mg tablet RxNorm: 433826 TAKE ONE TABLET BY MOUTH TWICE A DAY 08/07/2015 11/13/2015 In active atenolol 25 mg tablet RxNorm: 322805 1 Tablet(s) PO daily TAKE ONE TABLET BY MOUTH TWICE DAILY 08/06/2015 08/06/2015 Inactive Generic For:TENORMIN 25 MG TABLET 05/05/2015 10:00:22 AM atenolol 25 mg tablet RxNorm: 484396 1 Tablet(s) PO daily TAKE ONE TABLET BY MOUTH TWICE DAILY 08/06/2015 08/05/2015 Inactive Generic For:TENORMIN 25 MG TABLET 05/05/2015 10:00:22 AM betamethasone diprop ionate 0.05 % topical ointment RxNorm: 670595 1 TOP TID as needed rash 07/09/2015 05/18/2016 Inactive betamethasone diprop ionate 0.05 % topical ointment RxNorm: 765479 1 TOP TID as needed rash 07/09/2015 07/08/2015 Inactive spironolactone 25 mg tablet RxNorm: 529302 1 Tablet(s) PO daily 07/09/2015 07/08/2015 Inactive spironolactone 25 mg tablet RxNorm: 504302 1 Tablet(s) PO daily 07/09/2015 11/13/2015 Inactive losartan 25 mg tablet RxNorm: 262469 Tablet(s) 1 Tablet(s) PO QPM 05/27/2015 11/13/2015 Inactive atenolol 25 mg tablet RxNorm: 272714 TAKE ONE TABLET BY MOUTH TWICE DAILY 05/05/2015 08/05/2015 In active Generic For:TENORMIN 25 MG TABLET 05/05 10:00:22 AM hydrochlorothiazide 25 mg tablet RxNorm: 210445 1/2 Tablet(s) PO BID 02/17/2015 07/08/2015 Inactive Generic For:HYDRODIURIL 25 MG TABLET sulfamethoxazole 800 mg-trimethoprim 160 mg tablet RxNorm: 733297 1 Tablet(s) PO BID 01/16/2015 01/25/2015 Inactive losartan 25 mg tablet RxNorm: 853362 1 Tablet(s) PO QPM 12/09/2014 05/26/2015 Inactive Kenalog 40 mg/mL karl pension for injection RxNorm: 0489589 1 Milliliter(s) Inj 09/16/2014 09/16/2014 In active prednisone 20 mg tablet RxNorm: 356972 3 Tablet(s) PO daily 09/16/2014 09/18/2014 Inactive losartan 25 mg tablet RxNorm: 838612 1 Tablet(s) PO QPM 08/15/2014 12/08/2014 Inactive hydrochlorothiazide 25 mg tablet RxNorm: 193372 TAKE 1/2 TABLET BY MO UTH TWICE DAILY 08/13/2014 02/08/2015 Inactive Generic For:HYDRODIURIL 25 MG TABLET atenolol 25 mg tablet RxNorm: 097240 TAKE ONE TABLET BY MOUTH TWICE DAILY 05/07/2014 05/01/2015 In active Generic For:TENORMIN 25 MG TABLET ketorolac 60 mg/2 mL intramuscular solution RxNorm: 248243 2 Milliliter(s) IM 03/20/2014 03/20/2014 In active hydrochlorothiazide 25 mg tablet RxNorm: 011356 Tablet(s) PO TAKE 1/2 TABLET BY MOUTH TWICE DAILY 02/14/2014 08/12/2014 Inactive Generic For:HYDRODIURIL 25 MG TABLET Generic For:HYDRODIURIL 25 MG TABLET 02/14/2014 3:45:03 PM atorvastatin 10 mg t ablet RxNorm: 585129 1 Tablet(s) PO TIW 09/17/2013 03/19/2014 Inactive atorvastatin 10 mg t ablet RxNorm: 599211 tablet oral 09/17/2013 06/04/2015 Inactive hydrochlorothiazide 25 mg tablet RxNorm: 758351 Tablet(s) PO TAKE 1/2 TABLET BY MOUTH TWICE DAILY 08/06/2013 02/13/2014 Inactive Generic For:HYDRODIURIL 25 MG TABLET Generic For:HYDRODIURIL 25 MG TABLET 08/06/2013 1:52:35 PM amoxicillin 500 mg t ablet RxNorm: 543889 2 Tablet(s) PO 2 tabl ets PO 1 hour before dental procedure. 07/26/2013 07/25/2013 Inactive amoxicillin 500 mg t ablet RxNorm: 915755 2 Tablet(s) PO 2 tabl ets PO 1 hour before dental procedure. 07/26/2013 07/26/2013 Inactive methotrexate sodium 2.5 mg tablet RxNorm: 929896 tablet oral 07/13/2013 01/15/2015 Inactive atenolol 25 mg tablet RxNorm: 837920 Tablet(s) PO TAKE ONE TABLET BY MOUTH TW ICE DAILY 05/01/2013 05/06/2014 Inactive Generic For:TENORMIN 25 MG TABLET hydrochlorothiazide 25 mg tablet RxNorm: 460828 Tablet(s) PO TAKE 1/2 TABLET BY MOUTH TWICE DAILY 11/21/2012 08/05/2013 Inactive Generic For:HYDRODIURIL 25 MG TABLET atenolol 25 mg tablet RxNorm: 095044 Tablet(s) PO TAKE ONE TABLET BY MOUTH TW ICE DAILY 10/02/2012 04/30/2013 Inactive Generic For:TENORMIN 25 MG TABLET gemfibrozil 600 mg t ablet RxNorm: 442508 1 Tablet(s) PO BID 06/08/2012 10/08/2012 Inactive meclizine 25 mg tablet RxNorm: 7163157 1 Tablet(s) PO Q4 PRN 06/08/2012 09/05/2012 Inactive prednisone 10 mg Tab RxNorm: 705006 2 Tablet(s) PO daily 03/16/2012 03/20/2012 Inactive atorvastatin 10 mg Tab RxNorm: 818642 1 Tablet(s) PO daily 12/21/2011 12/20/2011 Inactive atorvastatin 10 mg Tab RxNorm: 162825 1 Tablet(s) PO daily 12/21/2011 06/08/2012 Inactive methotrexate sodium 2.5 mg Tab RxNorm: 196112 Tablet(s) PO 11/16/2011 06/12/2012 Inactive 3 on tuesday3 on hydrochlorothiazide 25 mg Tab RxNorm: 446156 1/2 Tablet(s) PO BID 11/01/2011 11/24/2012 Inactive hydrochlorothiazide 12.5 mg Cap RxNorm: 953117 Capsule(s) PO 11/01/2011 06/08/2012 Inactive TAKE ONE TABLET BY MOUTH TWICE DAILY;Gen sky For:MICROZIDE 12.5 MG CAPSULE hydrochlorothiazide 25 mg Tab RxNorm: 889982 1/2 Tablet(s) PO BID 11/01/2011 11/24/2012 Inactive hydrochlorothiazide 25 mg tablet RxNorm: 909850 1/2 Tablet(s) PO BID 11/01/2011 10/31/2011 Inactive hydrochlorothiazide 25 mg Tab RxNorm: 193470 1/2 Tablet(s) PO BID 11/01/2011 10/31/2011 Inactive atenolol 25 mg tablet RxNorm: 382532 Tablet(s) PO 10/04/2011 10/01/2012 Inactive TAKE ONE TABLET BY MOUTH TWICE DAILY;Generic For:TENORMIN 25 MG TABLET hydrochlorothiazide 12.5 mg Cap RxNorm: 381723 1 Capsule(s) PO BID 09/13/2011 10/31/2011 Inactive Influenza Virus Vacc ine 0.5 mL RxNorm: IM 07/13/2011 07/13/2011 Inactive Pneumovax 23 25 mcg/ 0.5 mL Injection RxNorm: 623584 Milliliter(s) Inj 07/13/2011 07/13/2011 In active vitamin B complex oral RxNorm: 56172 oral No Start Date Active Cinnamon 1000 mg RxNorm: 2 PO daily No Start Date Active atenolol 25 mg Tab RxNorm: 853685 1 Tablet(s) PO BID No Start Date 10/03/2011 Inactive niacin ER 500 mg Cap RxNorm: 318507 1 Capsule(s) PO daily No Start Date 06/08/2012 Inactive gemfibrozil 600 mg t ablet RxNorm: 007630 1 Tablet(s) PO BID No Start Date 06/07/2012 Inactive Vitamin C 500 mg Tab RxNorm: 888144 1 Tablet(s) PO daily No Start Date 07/21/2016 Inactive Zithromax Z-Jeff 250 mg tablet RxNorm: 916825 1 Tablet(s) PO UD No Start Date 11/18/2016 Inactive z pack as directed doxazosin 1 mg tablet RxNorm: 113114 1 Tablet(s) PO BID No Start Date 12/01/2016 Inactive vitamin E (dl, aceta te) 400 unit Cap RxNorm: 475207 1 Capsule(s) PO daily No Start Date 07/21/2016 Inactive famotidine 40 mg tablet RxNorm: 388707 1 Tablet(s) PO QAM No Start Date 08/01/2016 Inactive Phenergan VC-Codeine 6.25 mg-5 mg-10 mg/5 mL syrup RxNorm: 902493 5 Milliliter(s) PO Q6 as needed No Start Date 12/31/2018 Inactive hydrochlorothiazide 25 mg Tab RxNorm: 271046 1/2 Tablet(s) PO BID No Start Date 09/12/2011 Inactive Tessalon Perles 100 mg capsule RxNorm: 499151 1 -2 Capsule(s) PO TI D as needed cough No Start Date 11/03/2016 Inactive aspirin 81 mg Tab, D elayed Release RxNorm: 869941 1 Tablet(s) PO every other day No Start Date 05/18/2016 Inactive Cinnamon 1000 mg RxNorm: 2 PO daily No Start Date 05/18/2016 Inactive clonidine HCl 0.1 mg tablet RxNorm: 736914 1 Tablet(s) PO QHS an d 1 Tablet as needed No Start Date 07/21/2016 Inactive Clarence 3 Cap RxNorm: 1 Capsule(s) PO BID No Start Date 12/31/2018 Inactive niacin 500 mg tablet RxNorm: 151663 1 Tablet(s) PO QHS No Start Date 01/01/2015 Inactive multivitamin Tab RxNorm: 1 Tablet(s) PO daily No Start Date 07/21/2016 Inactive methotrexate sodium 2.5 mg Tab RxNorm: 425598 Tablet(s) PO No Start Date 11/15/2011 Inactive 3 on tuesday3 on T-Bio RxNorm: 1 PO daily No Start Date 05/18/2016 Inactive Vitamin D 2,000 unit Cap RxNorm: 1 Capsule(s) PO daily No Start Date 07/21/2016 Inactive hydrochlorothiazide 12.5 mg tablet RxNorm: 052792 1 Tablet(s) PO daily No Start Date 10/27/2017 Inactive Medication Administered Medication Codes Instruc tions Start Date Status Kenalog 40 mg/mL suspension for injection RxNorm: 5306053 Milliliter 01/01/2019 No longer Active Kenalog 40 mg/mL suspension for injection RxNorm: 0679067 1Milliliter 08/31/2018 N o longer Active Kenalog 40 mg/mL suspension for injection RxNorm: 4756363 Milliliter 11/05/2016 No longer Active Kenalog 40 mg/mL suspension for injection RxNorm: 8621258 1Milliliter 09/16/2014 N o longer Active ketorolac 60 mg/2 mL intramuscular solution RxNorm: 633518 2Milliliter 03/20/2014 N o longer Active Influenza Virus Vaccine 0.5 mL RxNorm: 07/13/2011 No longer Active Pneumovax 23 25 mcg/0.5 mL Injection RxNorm: 744703 Milliliter 07/13/2011 No longer Active Immunizations Vaccine Codes Date Status Influenza CVX: 141 07/06 completed Influenza CVX: 141 07/05 completed Influenza CVX: 141 07/22 completed Influenza CVX: 141 09/17 completed Influenza CVX: 141 10/13 completed Influenza CVX: 141 07/13 completed Pneumococcal (Adult) CVX: 33 07/13/2011 completed Assessments Condition Codes Effectiv e Dates Asymptomatic varicose veins of right lower extremity [...] 02/03/2012 VITAMIN DEFICIENCY ICD-9: 269.2 11/04/2011 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 07/13/2011 Postprandial bloating ICD-9: 787.3 07/13/2011 Seasonal allergies ICD-9: 477.9 07/13/2011 VAC STREP PNEUMONIAE-FLU ICD-9: V06.6 07/13/2011 Reason For Visit Reason For Visit Effective Dates Notes pain, limb 03/15/2019 earache 01/08/2019 earache 01/01/2019 [...] Ord64 K 3.8 mEq/L 12/06/2016 Comp Metabolic Lrp679 NA 134 mEq/L 12/03/2016 Comp Metabolic Tva365 K Specimen 3+ Hemolyzed mEq/L 12/04/19 17 Comp Metabolic Lfe302 CL 106 mEq/L 12/03/2016 Comp Metabolic Tll248 CO2 20.0 mEq/L 12/03/2016 Comp Metabolic Upn413 AN ION GAP 16 12/03/2016 Comp Metabolic Txh523 GL UCOSE 93 mg/dL 12/03/2016 Comp Metabolic Kli857 Cr eat 0.8 mg/dL 12/03/2016 Comp Metabolic Wam246 eG FR 73 ml/min/1.73m2 12/03 Comp Metabolic Tkp391 BUN 14 mg/dL 12/03/2016 Comp Metabolic Doc573 B/ C Ratio 17.1 Ratio 12/03/2016 Comp Metabolic Lza126 CA LCIUM 9.3 mg/dL 12/03/2016 Comp Metabolic Kqs003 AL K PHOS 63 U/L 12/03/2016 Comp Metabolic Tlk863 T(SGOT) 69 U/L 12/03/2016 Comp Metabolic Ons201 AL T(SGPT) 33 U/L 12/03/2016 Comp Metabolic Whg847 BI LI T 1.0 mg/dL 12/03/2016 Comp Metabolic Tmv335 AL BUMIN 4.3 g/dL 12/03/2016 Comp Metabolic Xtn543 TP RO 6.7 g/dL 12/03/2016 Comp Metabolic Ylx046 GL OB 2.4 g/dL 12/03/2016 Comp Metabolic Atw240 A/ G Ratio 1.7 Ratio 12/03/2016 Comp Metabolic Hgl993 Os mo 268 mOsmo 12/03/2016 Comp Metabolic Rwm536 NA 138 mEq/L 12/18/2015 Comp Metabolic Kwt979 K 4.1 mEq/L 12/18/2015 Comp Metabolic Uag697 CL 104 mEq/L 12/18/2015 Comp Metabolic Xph508 CO2 22.0 mEq/L 12/18/2015 Comp Metabolic Grx793 AN ION GAP 16 12/18/2015 Comp Metabolic Hkv125 GL UCOSE 89 mg/dL 12/18/2015 Comp Metabolic Rax597 Cr eat 0.6 mg/dL 12/18/2015 Comp Metabolic Dzw122 eG FR 99 ml/min/1.73m2 12/17 Comp Metabolic Gno666 BUN 15 mg/dL 12/18/2015 Comp Metabolic Gzr711 B/ C Ratio 23.8 Ratio 12/18/2015 Comp Metabolic Ujk615 CA LCIUM 10.4 mg/dL 12/18/2015 Comp Metabolic Apz768 AL K PHOS 77 U/L 12/18/2015 Comp Metabolic Lgp032 T(SGOT) 19 U/L 12/18/2015 Comp Metabolic Bsq670 AL T(SGPT) 17 U/L 12/18/2015 Comp Metabolic Ted046 BI LI T 0.8 mg/dL 12/18/2015 Comp Metabolic Jmw703 AL BUMIN 4.3 g/dL 12/18/2015 Comp Metabolic Jkd029 TP RO 6.7 g/dL 12/18/2015 Comp Metabolic Jmm701 GL OB 2.4 g/dL 12/18/2015 Comp Metabolic Jhr453 A/ G Ratio 1.7 Ratio 12/18/2015 Comp Metabolic Egy117 Os mo 276 mOsmo 12/18/2015 Cbc With [...] 29.5 pg 12/18/2015 Cbc With Differential Ord2 [place]% 9.4 % 12/18/2015 Cbc With Differential Ord2 [...] 2.57 K/ul 12/18/2015 Cbc With Differential Ord2 [place] ABS# 0.8 K/ul 12/18/2015 Cbc With Differential Ord2 Eos ABS# 0.1 K/ul 12/18/2015 Cbc With Differential Ord2 Baso ABS# 0.0 K/ul 12/18/2015 Cbc With Differential Ord2 New Analyzer Notice Please note new ref ranges s tarting 10-15-2015 due to implemntation of new five part differential hematolgy analyzer. 12/18/2015 Total T3 Ord42 TT3 1.0 ng/ml 07/10/2015 Free T4 Hqc674 FREE T4 0.90 ng/dL 07/09/2015 Free T3 Gld419 Free T3 2.92 pg/ml 07/09/2015 Tsh Ord6 hTSH II 1.18 uIU/mL 07/09/2015 URINALYSIS NONAUTO W/O SCOPE 29442 Specific [place] 1.005 DateTime(Free Text in Aprima) URINALYSIS NONAUTO W/O SCOPE 05691 PH 6 DateTime(Free Text in Aprima) URINALYSIS NONAUTO W/O SCOPE 67907 GLUCOSE neg DateTime(Free Dano t in Aprima) URINALYSIS NONAUTO W/O SCOPE 71654 Protein neg DateTime(Free Dano t in Aprima) URINALYSIS NONAUTO W/O SCOPE 87069 Blood neg DateTime(Free Dano t in Aprima) URINALYSIS NONAUTO W/O SCOPE 98434 Bilirubin neg DateTime(Free Dano t in Aprima) URINALYSIS NONAUTO W/O SCOPE 95119 Ketones neg DateTime(Free Dano t in Aprima) URINALYSIS NONAUTO W/O SCOPE 62496 Urobilinogen neg DateTime(Free Text in Aprima) URINALYSIS NONAUTO W/O SCOPE 63911 Nitrite neg DateTime(Free Dano t in ) URINALYSIS NONAUTO W/O SCOPE 16274 Leukocytes neg DateTime(Free Text in ) Review of Systems System Result Effective Dates Constitutional No recent illness 03/15/2019 Constitutional No [...] accomodation 09/17/2013 None Full Exam - General 1995 Ears/Nose/Throat otoscopic exam Overall: external auditory canals clear 09/17/2013 None Full Exam - General 1995 Ears/Nose/Throat otoscopic exam Overall: tympanic membranes clear [...] clear 09/20/2012 None Full Exam - General 1995 Ears/Nose/Throat [...] right and left Full Exam - General 1995 Constitutional general appearance Overall: well nourished 04/10/2012 [...] - General 1995 Ears/Nose/Throat external ear Overall: no masses 02/03/2012 [...] - General 1995 Abdomen abdominal exam Overall: no tenderness 02/03/2012 [...] non-tender 11/04/2011 None Full Exam - General 1994 Ears/Nose/Throat external nose Overall: no masses 11/04/2011 [...] Formatting Model/CDA Sections, Assigned to/Kimberley Fagan CPT-4: [id number] 07/06/2018 ADMIN INFLUENZA VIRU S VAC CPT-4: G0008 07/05/2017 FLU VACC PRSV FREE I NC ANTIG CPT-4: 63096 07/05/2017 THER/PROPH/DIAG INJ SC/IM CPT-4: 98879 11/05/2016 TRIAMCINOLONE ACET I [place] NOS CPT-4: J3301 11/05/2016 TRIAMCINOLONE ACET I [place] NOS CPT-4: J3301 09/16/2014 DRAIN/INJECT JOINT/B URSA CPT-4: 73933 09/16/2014 KETOROLAC TROMETHAMI NE INJ CPT-4: J1885 03/20/2014 URINALYSIS NONAUTO W /O SCOPE CPT-4: 79065 12/10/2013 PRESCRIP TRANSMIT A ERX SY CPT-4: G8553 09/17/2013 PRESCRIP TRANSMIT A ERX SY CPT-4: G8553 06/08/2012 TRIAMCINOLONE ACET I [place] NOS CPT-4: J3301 03/16/2012 INJ TRIGGER POINT 1/ 2 MUSCL CPT-4: 32315 03/16/2012 PRESCRIP TRANSMIT A ERX SY CPT-4: G8553 03/16/2012 ADMIN INFLUENZA VIRU S VAC CPT-4: G0008 07/13/2011 FLULAVAL VACC, 3 YRS & >, IM CPT-4: Q2036 07/13/2011 ADMIN PNEUMOCOCCAL V ACCINE SNOMED CT: [id number] CPT-4: G0009 07/13/2011 Pneumococcal Polysac charide Vaccine, 23-Valent, Ad CPT-4: 46151 07/13/2011 Vital Signs Date Vital 03/15/2019 Blood Pressure 1: 138/76 Code: 8480-6 BMI: 36.7 Code: 10778-7 Heart Rate 1: 64 bpm Height: 5'3" SpO2: 98% Weight: 207 lbs 01/08/2019 Blood Pressure 1: 128/70 Code: 8480-6 Heart Rate 1: 67 bpm SpO2: 97% 01/01/2019 Blood Pressure 1: 138/80 Code: 8480-6 BMI: 36.3 Code: 58838-8 Heart Rate 1: 64 bpm Height: 5'3" SpO2: 98% Weight: 205 lbs 12/18/2018 Blood Pressure 1: 120/62 Code: 8480-6 BMI: 36.0 Code: 82318-9 Heart Rate 1: 67 bpm Height: 5'3" SpO2: 97% Weight: 203 lbs 09/18/2018 Blood Pressure 1: 126/70 Code: 8480-6 BMI: 36.3 Code: 71321-6 Heart Rate 1: 58 bpm Height: 5'3" SpO2: 98% Weight: 205 lbs 08/31/2018 Blood Pressure 1: 148/76 Code: 8480-6 BMI: 37.0 Code: 19138-1 Heart Rate 1: 60 bpm Height: 5'3" SpO2: 98% Weight: 209 lbs 08/14/2018 Blood Pressure 1: 140/80 Code: 8480-6 BMI: 37.2 Code: 12532-9 Heart Rate 1: 76 bpm Height: 5'3" SpO2: 96% Weight: 210 lbs 05/22/2018 Blood Pressure 1: 150/62 Code: 8480-6 BMI: 36.7 Code: 38055-4 Heart Rate 1: 74 bpm Height: 5'3" SpO2: 98% Weight: 207 lbs 11/18/2017 Blood Pressure 1: 122/66 Code: 8480-6 BMI: 35.8 Code: 56854-5 Heart Rate 1: 59 bpm Height: 5'3" SpO2: 97% Weight: 202 lbs 08/03/2017 Blood Pressure 1: 122/60 Code: 8480-6 BMI: 36.0 Code: 21547-8 Heart Rate 1: 60 bpm Height: 5'3" SpO2: 97% Weight: 203 lbs 07/05/2017 Blood Pressure 1: 140/76 Code: 8480-6 BMI: 36.0 Code: 23122-4 Heart Rate 1: 58 bpm Height: 5'3" SpO2: 98% Weight: 203 lbs 12/02/2016 Blood Pressure 1: 122/70 Code: 8480-6 BMI: 34.4 Code: 66026-9 Heart Rate 1: 66 bpm Height: 5'3" SpO2: 99% Temperature: 36.4 (C ) / 97.5 (F) Weight: 194 lbs 11/22/2016 Blood Pressure 1: 102/60 Code: 8480-6 BMI: 34.2 Code: 71318-9 Heart Rate 1: 110 bpm Height: 5'3" SpO2: 98% Temperature: 36.7 (C ) / 98.0 (F) Weight: 193 lbs 11/05/2016 Blood Pressure 1: 140/62 Code: 8480-6 BMI: 36.1 Code: 19500-9 Heart Rate 1: 102 bpm Height: 5'3" SpO2: 97% Temperature: 37.1 (C ) / 98.7 (F) Weight: 204 lbs 07/22/2016 Blood Pressure 1: 158/80 Code: 8480-6 Blood Pressure 1: 160/76 Code: 8480-6 BMI: 36.8 Code: 33198-4 Heart Rate 1: 56 bpm Height: 5'3" SpO2: 98% Weight: 208 lbs 05/19/2016 Blood Pressure 1: 150/78 Code: 8480-6 Blood Pressure 1: 122/69 Code: 8480-6 BMI: 37.0 Code: 05533-4 Heart Rate 1: 61 bpm Height: 5'3" SpO2: 98% Weight: 209 lbs 02/13/2016 Blood Pressure 1: 140/76 Code: 8480-6 BMI: 36.8 Code: 23953-7 Heart Rate 1: 64 bpm Height: 5'3" SpO2: 97% Weight: 208 lbs 01/13/2016 Blood Pressure 1: 170/70 Code: 8480-6 BMI: 36.8 Code: 78404-0 Heart Rate 1: 65 bpm Height: 5'3" SpO2: 95% Weight: 208 lbs 01/02/2016 Blood Pressure 1: 150/88 Code: 8480-6 BMI: 36.8 Code: 31812-5 Heart Rate 1: 61 bpm Height: 5'3" SpO2: 98% Weight: 208 lbs 12/18/2015 Blood Pressure 1: 148/90 Code: 8480-6 BMI: 37.6 Code: 20261-9 Heart Rate 1: 64 bpm Height: 5'3" SpO2: 96% Weight: 212 lbs 09/08/2015 Blood Pressure 1: 130/88 Code: 8480-6 BMI: 37.0 Code: 95568-8 Heart Rate 1: 62 bpm Height: 5'3" SpO2: 97% Weight: 209 lbs 07/09/2015 Blood Pressure 1: 142/82 Code: 8480-6 BMI: 36.4 Code: 08034-0 Heart Rate 1: 66 bpm Height: 5'3" SpO2: 97% Weight: 205 lbs 5 oz 01/16/2015 Blood Pressure 1: 122/80 Code: 8480-6 BMI: 35.6 Code: 21592-0 Heart Rate 1: 67 bpm Height: 5'3" SpO2: 98% Weight: 201 lbs 01/03/2015 Blood Pressure 1: 122/70 Code: 8480-6 BMI: 35.6 Code: 49301-3 Heart Rate 1: 61 bpm Height: 5'3" Respiratory Rate: 16 bpm SpO2: 98% Weight: 201 lbs 09/16/2014 Blood Pressure 1: 132/78 Code: 8480-6 BMI: 34.9 Code: 70869-9 Heart Rate 1: 56 bpm Height: 5'3" Weight: 197 lbs 08/15/2014 Blood Pressure 1: 152/80 Code: 8480-6 Blood Pressure 2: 160/82 Code: 8480-6 BMI: 34.0 Code: 12207-6 Heart Rate 1: 75 bpm Height: 5'3" Weight: 192 lbs 06/12/2014 Blood Pressure 1: 136/82 Code: 8480-6 BMI: 34.9 Code: 18695-3 Heart Rate 1: 58 bpm Height: 5'3" SpO2: 96% Weight: 197 lbs 03/20/2014 Blood Pressure 1: 140/72 Code: 8480-6 BMI: 34.9 Code: 43132-6 Heart Rate 1: 60 bpm Height: 5'3" Weight: 197 lbs 12/10/2013 Blood Pressure 1: 132/78 Code: 8480-6 BMI: 35.1 Code: 27657-7 Heart Rate 1: 68 bpm Height: 5'3" Weight: 198 lbs 09/17/2013 Blood Pressure 1: 128/78 Code: 8480-6 BMI: 34.9 Code: 93607-6 Heart Rate 1: 68 bpm Height: 5'3" Weight: 197 lbs 05/21/2013 Blood Pressure 1: 128/82 Code: 8480-6 BMI: 35.6 Code: 15330-1 Heart Rate 1: 80 bpm Height: 5'3" Weight: 201 lbs 01/17/2013 Blood Pressure 1: 138/72 Code: 8480-6 BMI: 36.7 Code: 32435-6 Heart Rate 1: 60 bpm Height: 5'3" [...] 1: 140/78 Code: 8480-6 BMI: 40.0 Code: 15701-1 Heart Rate 1: 64 bpm Height: 5'3" Respiratory Rate: 16 bpm Weight: 226 lbs 11/04/2011 Blood Pressure 1: 136/76 Code: 8480-6 Heart Rate 1: 68 bpm Respiratory Rate: 16 bpm Weight: 226 lbs 07/13/2011 Blood Pressure 1: 142/80 Code: 8480-6 BMI: 40.0 Code: 94196-2 Heart Rate 1: 60 bpm Height: 5'4" Respiratory Rate: 16 bpm Weight: 233 lbs Functional Status No Functional Status data History of Present Illness Symptom Name Status Resu lt Effective Date Notes Location on the right leg 03/15/2019 None Quality acute 03/15/2019 None Triggers no known asso ciated factors 03/15/2019 None Pertinent Findings mus daniela tenderness 03/15/2019 None Onset and Resolution o ngoing 03/15/2019 None Onset of Symptom _ darrell conner ago 03/15/2019 None Limitation on Activities does not limit activities 03/15/2019 None Frequency of Episodes unchanged 03/15/2019 None Location right ear 01/08/2019 None Quality acute 01/08/2019 None Onset and Resolution o ngoing 01/08/2019 None Onset of Symptom _ darrell conner ago 01/08/2019 None Severity mild 01/08/2019 None Frequency of Episodes daily 01/08/2019 None Triggers no known trig gers 01/08/2019 None Location right ear 01/01/2019 None Quality acute 01/01/2019 None Onset and Resolution g radual in onset 01/01/2019 None Onset of Symptom 1 darrell conner ago 01/01/2019 None Severity mild 01/01/2019 None [...] onset 09/18/2018 None Onset of Symptom 1 darrell conner ago 09/18/2018 None Limitation on Activities moderately [...] Encounters Encounter Performer Loca tion Codes Date [id number] EST. PATIENT, LEVEL III Diagnosis: Asymptomatic varicose veins of right lower extremity[ICD10: I83.91] Юлия Manuel MD, [facility] CPT-4: 48760 03/15/2019 ([id number]) 87791 EST. P ATIENT, LEVEL II Diagnosis: Otalgia, right ear[ICD10: H92.01] Diagnosis: Other specified disorders of teeth and supporting structures[ICD10: K08.89] Юлия Manuel MD, [facility] CPT-4: 65334 01/08/2019 ([id number]) 39582 EST. P ATIENT, LEVEL III Diagnosis: Otalgia, right ear[ICD10: H92.01] Юлия Manuel MD, [facility] CPT- 4: 27687 01/01/2019 ([id number]) 56906 EST. 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 CPT-4: 83687 12/18/2018 ([id number]) 23682 EST. 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 CPT-4: 81919 09/18/2018 ([id number]) 82443 EST. P ATIENT, LEVEL III Diagnosis: Nasal congestion[ICD10: R09.81] Diagnosis: Other allergic rhinitis[ICD10: J30.89] Юлия Manuel MD, [facility] CPT-4: 78717 08/31/2018 ([id number]) 75481 EST. P ATIENT, LEVEL III Diagnosis: Acute recurrent maxillary sinusitis[ICD10: J01.01] Юлия Manuel MD, [facility] CPT-4: 69242 08/14/2018 22871 EST. PATIENT, LEVEL III Diagnosis: Pain in right shoulder[ICD10: M25.511] Diagnosis: Pain in right arm[ICD10: M79.601] Willow Manuel MD, [facility] CPT-4: 50553 05/22/2018 ([id number]) 40555 EST. 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 CPT-4: 03106 11/18/2017 [id number] EST. PATIENT, LEVEL III Diagnosis: Other specified intestinal infections[ICD10: A08.8] Willow Manuel MD, [facility] CPT-4: 67944 08/03/2017 ([id number]) 71693 EST. 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 CPT-4: 34509 07/05/2017 ([id number]) 22772 EST. P ATIENT, LEVEL III Diagnosis: Essential (primary) hypertension[ICD10: I10] Юлия Manuel MD, [facility] CPT-4: 45330 12/02/2016 ([id number]) 57842 EST. P ATIENT, LEVEL III Diagnosis: Essential (primary) hypertension[ICD10: I10] Diagnosis: Allergic rhinitis due to pollen[ICD10: J30.1] Giuliana Manuel MD, [facility] CPT-4: 55068 11/22/2016 [id number] EST. PATIENT, LEVEL III Diagnosis: Acute laryngopharyngitis[ICD10: J06.0] Diagnosis: Influenza due to unidentified influenza virus with other respiratory manifestations[ICD10: J11.1] Willow Manuel MD, [facility] CPT-4: 49175 11/05/2016 ([id number]) 34567 EST. P ATIENT, LEVEL III Diagnosis: Gastro-esophageal reflux disease without esophagitis[ICD10: K21.9] Diagnosis: Essential (primary) hypertension[ICD10: I10] Giuliana Manuel MD, [facility] CPT-4: 60363 07/22/2016 ([id number]) 95582 EST. P ATIENT, LEVEL IV Diagnosis: Essential (primary) hypertension[ICD10: I10] Diagnosis: Abdominal distension (gaseous)[ICD10: R14.0] Giuliana Manuel MD, [facility] CPT-4: 61087 05/19/2016 ([id number]) 09923 EST. P ATIENT, LEVEL III Diagnosis: Essential (primary) hypertension[ICD10: I10] Юлия Manuel MD, [facility] CPT-4: 50307 02/13/2016 ([id number]) 87584 EST. P ATIENT, LEVEL III Diagnosis: Essential (primary) hypertension[ICD10: I10] Юлия Manuel MD, [facility] CPT-4: 64672 01/13/2016 76279 EST. PATIENT, LEVEL IV Diagnosis: Essential (primary) hypertension[ICD10: I10] Diagnosis: Body mass index (BMI) 36.0-36.9, adult[ICD10: Z68.36] Willow Manuel MD, [facility] CPT-4: 02561 01/02/2016 ([id number]) 74977 EST. P ATIENT, LEVEL III Diagnosis: Essential (primary) hypertension[ICD10: I10] Юлия Manuel MD, [facility] CPT-4: 23496 12/18/2015 ([id number]) 47910 EST. P ATIENT, LEVEL IV Diagnosis: Essential (primary) hypertension[ICD10: I10] Diagnosis: Benign paroxysmal vertigo, bilateral[ICD10: H81.13] Diagnosis: Radiculopathy, cervical region[ICD10: M54.12] Giuliana Manuel MD, [facility] CPT-4: 24444 09/08/2015 ([id number]) 71388 EST. P ATIENT, LEVEL IV Diagnosis: Other specified nonscarring hair loss[ICD10: L65.8] Diagnosis: Myositis, unspecified[ICD10: M60.9] Diagnosis: Psoriasis, unspecified[ICD10: L40.9] Diagnosis: Essential (primary) hypertension[ICD10: I10] Giuliana Manuel MD, [facility] CPT-4: 82960 07/09/2015 ([id number]) 63269 EST. P ATIENT, LEVEL III Diagnosis: ESSENTIAL HYPERTENSION[ICD9: 401.9] Giuliana Manuel MD, [facility] CPT- 4: 49110 01/16/2015 ([id number]) 52054 EST. P ATIENT, LEVEL III Diagnosis: Shoulder pain[ICD9: 719.41] Diagnosis: ESSENTIAL HYPERTENSION[ICD9: 401.9] Diagnosis: PALPITATIONS[ICD9: 785.1] Giuliana Manuel MD, [facility] CPT-4: 69934 01/03/2015 ([id number]) 48182 EST. P ATIENT, LEVEL III Diagnosis: Sacroiliitis[ICD9: 720.2] Diagnosis: Back pain[ICD9: 724.5] Diagnosis: ESSENTIAL HYPERTENSION[ICD9: 401.9] Giuliana Manuel MD, [facility] CPT- 4: 95797 09/16/2014 ([id number]) 51357 EST. P ATIENT, LEVEL IV Diagnosis: ESSENTIAL HYPERTENSION[ICD9: 401.9] Diagnosis: Arrhythmia[ICD9: 427.9] Diagnosis: Nausea[ICD9: 787.02] Giuliana Manuel MD, [facility] CPT-4: 29816 08/15/2014 ([id number]) 66411 EST. P ATIENT, LEVEL IV Diagnosis: ESSENTIAL HYPERTENSION[ICD9: 401.9] Diagnosis: Back pain[ICD9: 724.5] Diagnosis: Allergic reaction[ICD9: 995.3] Giuliana Manuel MD, [facility] CPT-4: 69517 06/12/2014 ([id number]) 96258 EST. P ATIENT, LEVEL III Diagnosis: Thoracic back pain[ICD9: 724.1] Diagnosis: MYALGIA AND MYOSITIS[ICD9: 729.1] Giuliana Manuel MD, [facility] CPT-4: 64328 03/20/2014 ([id number]) 09590 EST. P ATIENT, LEVEL IV Diagnosis: HYPERLIPIDEMIA[ICD9: 272.4] Diagnosis: ESSENTIAL HYPERTENSION[SNOMED: 52475682] Diagnosis: ABDOM PAIN NOS SITE[ICD9: 789.00] Giuliana Manuel MD, [facility] CPT-4: 05374 12/10/2013 ([id number]) 55608 EST. P ATIENT, LEVEL IV Diagnosis: ESSENTIAL HYPERTENSION[SNOMED: 10779187] Diagnosis: HYPERLIPIDEMIA[ICD9: 272.4] Giuliana Manuel MD, [facility] CPT-4: 85493 09/17/2013 ([id number]) 90838 EST. P ATIENT, LEVEL IV Diagnosis: ESSENTIAL HYPERTENSION[SNOMED: 63887734] Diagnosis: OBESITY[ICD9: 278.00] Diagnosis: Back pain[ICD9: 724.5] Giuliana Manuel MD, [facility] CPT-4: 38143 05/21/2013 ([id number]) 69860 EST. P ATIENT, LEVEL IV Diagnosis: ESSENTIAL HYPERTENSION[SNOMED: 18490203] Diagnosis: HYPERLIPIDEMIA[ICD9: 272.4] Diagnosis: Abdominal pain[ICD9: 789.00] Diagnosis: BENIGN PAROXYSMAL VERTIGO[ICD9: 386.11] Giuliana Manuel MD, [facility] CPT-4: 21185 01/17/2013 ([id number]) 01064 EST. P ATIENT, LEVEL IV Diagnosis: ESSENTIAL HYPERTENSION[SNOMED: 96919339] Diagnosis: BENIGN PAROXYSMAL VERTIGO[ICD9: 386.11] Diagnosis: Hair loss[ICD9: 704.00] Diagnosis: Vitamin d deficiency[ICD9: 268.9] Diagnosis: Bleeding from the nose[ICD9: 784.7] Giuliana Manuel MD, [facility] CPT- 4: 36142 09/20/2012 70264 EST. PATIENT, LEVEL IV Diagnosis: BPPV (benign paroxysmal positional vertigo)[ICD9: 386.11] Diagnosis: HYPERLIPIDEMIA[ICD9: 272.4] Diagnosis: ESSENTIAL HYPERTENSION[SNOMED: 03711066] Giuliana Manuel MD, [facility] CPT-4: 83686 06/08/2012 ([id number]) 43371 EST. P ATIENT, LEVEL IV Diagnosis: BPPV (benign paroxysmal positional vertigo)[ICD9: 386.11] Diagnosis: Diverticulitis[ICD9: 562.11] Diagnosis: Abdominal pain[ICD9: 789.00] Giuliana Manuel MD, [facility] CPT-4: 90190 04/10/2012 ([id number]) 62333 EST. P ATIENT, LEVEL III Diagnosis: Neck pain[ICD9: 723.1] Diagnosis: Acute upper back pain[ICD9: 724.1] Giuliana Manuel MD, [facility] CPT- 4: 04687 03/16/2012 ([id number]) 69437 EST. P ATIENT, LEVEL IV Diagnosis: HYPERLIPIDEMIA[ICD9: 272.4] Diagnosis: ESSENTIAL HYPERTENSION[SNOMED: 59461413] Diagnosis: Constipation - functional[ICD9: 564.09] Giuliana Manuel MD, [facility] CPT-4: 04024 02/03/2012 ([id number]) 86217 EST. P ATIENT, LEVEL IV Diagnosis: HYPERLIPIDEMIA[ICD9: 272.4] Diagnosis: VITAMIN DEFICIENCY[ICD9: 269.2] Diagnosis: ESSENTIAL HYPERTENSION[SNOMED: 35214759] Giuliana Manuel MD, [facility] CPT-4: 27145 11/04/2011 [id number] EST. 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 CPT-4: 18868 07/13/2011 Plan of Care Planned Activity Notes C odes Status Date Visit Plan: Varicose vein -right lo wer leg -mildly tender - not inflamed -instructed patient to monitor and call if symptoms worsen, persist or new symptoms develop. Patient verbalized understanding of plan. 03/15/2019 Patient Education: Patient Medication Summary Completed 03/15/2019 Visit Plan: Right earache -suspect trigeminal neuralgia- recommend patient have a dental eval to also check tooth that is bothering her on the right upper jaw -discussed treating trigeminal neuralgia if tooth is okay but instructed her to call if symptoms worsen -patient verbalized understanding of plan. 01/08/2019 Appointment: Юлия Rojas WPtel: [facility]5 [phone] (30 min) Complex 01/08/2019 Patient Education: Patient Medication Summary Completed 01/08/2019 Visit Plan: Right ear pain -concern for trigeminal neuralgia -she does have some sinus tenderness -will give kenalog injection today - continue anti histamine daily -monitor symptoms and call if persistent, worsen o r new symptoms develop. Patient verbalized understanding of plan. 01/01/2019 Appointment: Юлия Rojas WPtel: [phone] [phone] (30 min) Complex 01/01/2019 Patient Education: Patient [...] not improving. 12/18/2018 Appointment: Giuliana Manuel WPtel: [facility] (15 min) Moderate 12/18/2018 Patient Education: Patient [...] low back. 09/18/2018 Appointment: Giuliana Manuel WPtel: [phone] [facility] (15 min) Moderate 09/18/2018 Patient Education: Patient [...] allergy spray. 08/31/2018 Appointment: Юлия Rojas WPtel: [phone] [phone] (15 min) Moderate 08/31/2018 Patient Education: Patient [...] improve. 05/22/2018 Appointment: Willow Garcia WPtel: [phone] [facility] (15 min) Moderate 05/22/2018 Patient Education: [...] improving. 11/18/2017 Appointment: Giuliana Manuel WPtel: [phone] [facility] (15 min) Moderate 11/18/2017 Patient Education: Patient Medication Summary Completed 11/18/2017 Appointment: Giuliana Manuel WPtel: [phone] [facility] (15 min) Moderate 11/07/2017 Visit Plan: Diarrhea [...] not improved. 08/03/2017 Appointment: Willow Garcia WPtel: [phone] [facility] (30 min) Complex 08/03/2017 Patient Education: Patient [...] daily. 07/05/2017 Appointment: Giuliana Manuel WPtel: [phone] [facility] [place] (15 min) Moderate 07/05/2017 Patient Education: Patient Medication Summary Completed 07/05/2017 Patient Education: Obesity Completed 07/05/2017 Appointment: Giuliana Manuel WPtel: [phone] [facility] [place] (15 min) Moderate 06/27/2017 Appointment: Giuliana Manuel WPtel: [phone] [facility] [place] (15 min) Moderate 06/21/2017 Appointment: Юлия Rojas WPtel: [phone] [phone] [place] (30 min) Complex 12/23/2016 Visit Plan: [...] RESTART HCTZ 12/02/2016 Appointment: Юлия Rojas WPtel: [phone] [phone] [place] (30 min) Complex 12/02/2016 Patient Education: [...] days 11/22/2016 Appointment: Giuliana Manuel WPtel: [phone] [facility] (15 min) Moderate 11/22/2016 Patient Education: Patient Medication Summary Completed 11/22/2016 Patient Education: Obesity Completed 11/22/2016 Visit Plan: Influenza - pt started on tamiflu - pt to start on anti-inflammatories, tylenol and monitor symptoms. Pt to call if not improving. Pt to alert any close contacts as to illness. 11/05/2016 Appointment: Willow Garcia WPtel: [phone] [facility] (30 min) Complex 11/05/2016 Patient Education: Patient [...] carafate 07/22/2016 Appointment: Giuliana Manuel WPtel: [phone] [facility] (15 min) Moderate 07/22/2016 Patient Education: Patient Medication Summary Completed 07/22/2016 Patient Education: Obesity Completed 07/22/2016 Care Plan: Referral Order SNOMED-CT : [id number] Pending 07/22/2016 Visit Plan: Hypertension - well [...] Obesity Completed 05/19/2016 Appointment: Giuliana Manuel WPtel: [phone] [facility] (15 min) Moderate 05/17/2016 Visit Plan: Hypertension - well con trolled - continue with current medications, continue with no added salt diet. Pt has been encouraged to exercise daily. The pt has been advised to call the office if there are any acute concerns about change in blood pressure readings at home. 02/13/2016 Appointment: Юлия Rojas WPtel: [phone] [phone] (30 min) Complex 02/13/2016 Patient Education: Patient [...] Completed 12/18/2015 Appointment: Giul[phone] (15 min) Moderate 12/08/2015 [facility] Referral Completed 10/17/2015 Visit Plan: Hypertension - [...] stress test. 09/08/2015 Appointment: Giuliana Manuel WPtel: [facility]5 [facility] (15 min) Moderate 09/08/2015 Patient Education: Patient Medication Summary Completed 09/08/2015 Patient Education: .Cervicalgia Neck Pain Completed 09/08/2015 Care Plan: Referral Order SNOMED-CT : [id number] Ordered 09/08/2015 Visit Plan: Hypertension - uncontro [...] checked today. 07/09/2015 Appointment: Giuliana Manuel WPtel: [address] [place], [place] [phone] (15 min) Moderate 07/09/2015 Patient Education: Patient Medication Summary Completed 07/09/2015 Appointment: Giuliana Manuel WPtel: [address] [place] [phone] (15 min) Moderate 07/07/2015 Appointment: Giuliana Manuel WPtel: [address] [place] [phone] Follow up 03/17/2015 Visit Plan: Hypertension - well con trolled - continue with current medications, continue with no added salt diet. Pt has been encouraged to exercise daily. The pt has been advised to call the office if there are any acute concerns about change in blood pressure readings at home. Palpitations resolved. 01/16/2015 Appointment: Giuliana Manuel WPtel: [facility]5 [facility] Other 01/16/2015 Patient Education: Patient Medication Summary [...] pain symptoms. 01/03/2015 Appointment: Giuliana Manuel WPtel: [facility]3 [facility] Follow up 01/03/2015 Patient Education: Patient Medication [...] Hypertension Completed 09/16/2014 Appointment: Giuliana Manuel WPtel: [facility]8 [facility] Follow up 09/09/2014 Visit Plan: Hypertension - [...] worsen. 08/15/2014 Appointment: Giuliana Manuel WPtel: [address] [place], [place] [phone] [facility] 08/15/2014 Patient Education: Patient Medication Summary Completed 08/15/2014 Patient Education: Hypertension Completed 08/15/2014 Care Plan: Referral Order SNOMED-CT : [id number] Ordered 08/15/2014 Appointment: Giuliana Manuel WPtel: [facility]5 [facility] Follow up 06/18/2014 Visit Plan: [facility]. Rash - reaction to soy [...] at home. 06/12/2014 Appointment: Giuliana Manuel WPtel: [facility]5 [facility] [facility] 06/12/2014 Patient Education: Patient Medication Summary Completed 06/12/2014 Patient Education: Hypertension Completed 06/12/2014 Care Plan: Referral Order SNOMED-CT : [id number] Ordered 06/12/2014 Visit Plan: Hypertension - well [...] xrays. 03/20/2014 Appointment: Giuliana Manuel [facility]Ptel: [phone] [facility] Follow [facility] 03/20/2014 Patient Education: Patient [...] was negative for a UTI 12/10/2013 Appointment: Brodhead Giuliana WPtel: [phone] [facility] Follow up 12/10/2013 Patient Education: Patient [...] weekly. 09/17/2013 Appointment: Giuliana Manuel WPtel: 101 [facility] Follow up 09/17/2013 Patient Education: Patient Medication [...] muscle rub. 05/21/2013 Appointment: Giuliana Manuel WPtel: [facility]4 [facility] Follow up 05/21/2013 Patient Education: Patient Medication [...] the vertigo. 01/17/2013 Appointment: Giuliana Manuel WPtel: [facility]9 [facility] Follow up 01/17/2013 Patient Education: Patient Medication [...] if needed. 09/20/2012 Appointment: Giuliana Manuel [facility]Ptel: [phone] [facility] Follow up 09/20/2012 Patient Education: Patient [...] intolerance begin. 06/08/2012 Appointment: Giuliana Manuel [facility]Ptel: [facility] Follow up 06/08/2012 Patient Education: Patient Medication [...] or popcorn. 04/10/2012 Appointment: Giuliana Manuel [facility]Ptel: [phone] [facility] Other 04/10/2012 Patient Education: Patient Medication [...] by Tuesday. 03/16/2012 Appointment: Giuliana Manuel [facility]Ptel: [facility] [facility] Other 03/16/2012 Patient Education: Patient Medication [...] regimen. 02/03/2012 Appointment: Giuliana Manuel [facility]Ptel: [facility] [facility] Other 02/03/2012 Patient Education: Patient Medication [...] week. 11/04/2011 Appointment: Giuliana Manuel [facility]Ptel: [phone] [facility] Follow up 11/04/2011 Patient Education: Patient [...] She will monitor her intake. Allergies - [facility] for the headaches to see ifnallergy medication helps to prevent the headaches flu shot pneumonia shot 07/13/2011 Appointment: Giuliana Manuel WPtel: [address]5 [facility] [place] Other 07/13/2011 Patient Education: Patient Medication Summary Completed 07/13/2011 Patient Education: .Amazing charts Di[employer] tic meal planning guide Completed 07/13/2011 Referral: Jared Lafleur [address] [facility] [place] Referral Appointment Requested Referral: Duarte Catalan Referral Appointment Requested Referral: Dr. Willams WPtel: [facility] [place] Referral Initiated Referral: [facility] WPtel: [address] [facility] [place] Referral Initiated Instructions Comment Add a [...] improve or if they worsen. . Right earache -karl pect trigeminal neuralgia- recommend patient have a dental eval to also check tooth that is bothering her on the right upper jaw -discussed treating trigeminal neuralgia if tooth is okay but instructed her to call if symptoms worsen -patient verbalized understanding of plan. . Back pain - referr al to [facility]. Rash - reaction to [...] She will monitor her intake. Allergies - [facility] for the headaches to see ifnallergy [...]
--- OUTSIDE RECORDS SUMMARY | 2020-01-21 14:04 | XMS REPORT | CCD ---
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 09/08/2015 Marital status Unknown M arried 07/13/[address]: 977139593 Nonsmoker 07/13/[address]: 534360103 Never drinks alcohol 07/13/2011 Allergies, Adverse Reactions, Alerts Substance Reaction Codes Entered Date Inactivated Date Status Soy Unknown 07/13/2011 No Inactive Date Active Cardizem RxNorm: 656624 05/19/2016 No Inactive Date Active Metoprolol Succinate anaphylaxis, rash, RxNorm: 6918 02/13/2016 No Inactive Date Active Past Medical History Illness Codes Condition Status Onset Date Resolved Date Otalgia, right ear ICD- 9: 388.70 ICD-10: [...] pain ICD-9: 789.00 Active 07/13/2011 Unknown 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 07/13/2011 Unknown OBESITY ICD-9: 278.00 Active 07/13/2011 Unknow n Postprandial bloating ICD-9: 787.3 Active 07/13/2011 Unknown Seasonal allergies ICD- 9: 477.9 Active 07/13/2011 Unknown VAC STREP PNEUMONIAE -FLU ICD-9: V06.6 Active 07/03 Unknown Problems Condition Codes Effectiv e Dates Condition Status Otalgia, right ear ICD- 9: 388.70 ICD-10: [...] Abdominal pain ICD-9: 789.00 07/13/2011 Active 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 07/13/2011 Active OBESITY ICD-9: 278.00 07/13/2011 Active Postprandial bloating ICD-9: 787.3 07/13/2011 Active Seasonal allergies ICD- 9: 477.9 07/13/2011 Active VAC STREP PNEUMONIAE -FLU ICD-9: V06.6 07/13/2011 Active Medications Medication Codes Instruc tions Start Date Stop Date Sta tus Fill Instructions doxazosin 1 mg tablet RxNorm: 939170 TAKE 1 TABLET BY MOUTH EVERY DAY AT [facility] 02/27/2019 11/23/2019 Ac tive - Ref: [id number] hydrochlorothiazide 12.5 mg tablet RxNorm: 379872 TAKE 1 TABLET BY MOUT H EVERY DAY 02/27/2019 11/23/2019 Ac tive - Ref: [id number] famotidine 40 mg tablet RxNorm: 926831 TAKE 1 TABLET BY MOUTH EVERY MORNING 02/27/2019 11/23/2019 Ac tive - Ref: [id number] Kenalog 40 mg/mL karl pension for injection RxNorm: 8501616 Milliliter(s) Inj 01/01/2019 01/01/2019 In active losartan 25 mg tablet RxNorm: 542038 1 Tablet(s) PO BID 11/01/2018 10/26/2019 Active losartan 25 mg tablet RxNorm: 876300 1 Tablet(s) PO BID 11/01/2018 10/31/2018 Inactive hydrochlorothiazide 12.5 mg tablet RxNorm: 167168 TAKE 1 TABLET BY MOUT H EVERY DAY 10/02/2018 02/26/2019 In active - First Attempt Ref: [id number] famotidine 40 mg tablet RxNorm: 341279 TAKE 1 TABLET BY MOUTH EVERY MORNING 10/02/2018 02/26/2019 In active - First Attempt Ref: [id number] doxazosin 1 mg tablet RxNorm: 497444 TAKE 1 TABLET BY MOUTH EVERY DAY AT MIDN IGHT 10/02/2018 02/26/2019 Inactive - First Attempt Ref: [id number] naproxen 500 mg tablet RxNorm: 139273 1 Tablet(s) PO BID 09/18/2018 09/24/2018 Inactive diclofenac 1 % topic al gel RxNorm: 987984 2 Application TOP QID 09/18/2018 11/16/2018 Inactive Kenalog 40 mg/mL karl pension for injection RxNorm: 8646688 1 Milliliter(s) Inj 08/31/2018 08/31/2018 In active clonidine HCl 0.1 mg tablet RxNorm: 334986 1/2 Tablet(s) PO BID 08/16/2018 08/10/2019 Active amoxicillin 500 mg t ablet RxNorm: 178978 1 Tablet(s) PO TID 08/14/2018 08/20/2018 Inactive losartan 25 mg tablet RxNorm: 420716 1 Tablet(s) PO BID 05/02/2018 05/01/2018 Inactive losartan 25 mg tablet RxNorm: 714306 1 Tablet(s) PO BID 05/02/2018 10/31/2018 Inactive losartan 25 mg tablet RxNorm: 335773 1 Tablet(s) PO BID 01/30/2018 05/01/2018 Inactive Vitamin D 2,000 unit capsule RxNorm: 1 Capsule(s) PO daily 11/18/2017 No Stop Date Active atenolol 25 mg tablet RxNorm: 195640 1 Tablet(s) PO daily 11/18/2017 11/12/2018 Inactive atenolol 25 mg tablet RxNorm: 954343 1 Tablet(s) PO BID managed by Dr Lafleur 11/18/2017 11/17/2017 In active clonidine HCl 0.1 mg tablet RxNorm: 051324 1/2 Tablet(s) PO BID 11/18/2017 08/15/2018 Inactive doxazosin 1 mg tablet RxNorm: 011470 1 Tablet(s) PO daily at midnight 11/18/2017 10/01/2018 In active midnight losartan 25 mg tablet RxNorm: 309055 1 Tablet(s) PO BID 11/18/2017 01/29/2018 Inactive hydrochlorothiazide 12.5 mg tablet RxNorm: 798572 1 Tablet(s) PO daily 11/18/2017 10/01/2018 In active famotidine 40 mg tablet RxNorm: 886694 1 Tablet(s) PO daily TAKE 1 TABLET BY MO UTH EVERY MORNING 11/18/2017 10/01/2018 Inactive - Ref: [id number] hydrochlorothiazide 12.5 mg tablet RxNorm: 995545 1 Tablet(s) PO daily 10/28/2017 11/17/2017 In active famotidine 40 mg tablet RxNorm: 399153 TAKE 1 TABLET BY MOUTH EVERY MORNING 10/04/2017 11/17/2017 In active - Ref: [id number] clonidine HCl 0.1 mg tablet RxNorm: 113164 1/2 Tablet(s) PO BID 07/05/2017 11/17/2017 Inactive doxazosin 1 mg tablet RxNorm: 954201 1 Tablet(s) PO daily at midnight 07/05/2017 11/17/2017 In active midnight doxazosin 1 mg tablet RxNorm: 654472 1 Tablet(s) PO BID 12/02/2016 2017 Inactive midnight prednisone 20 mg tablet RxNorm: 159028 3 Tablet(s) PO daily 11/22/2016 11/26/2016 Inactive Tessalon Perles 100 mg capsule RxNorm: 468425 1 -2 Capsule(s) PO TI D as needed cough 11/19/2016 12/31/2018 Inactive Zithromax Z-Jeff 250 mg tablet RxNorm: 252076 1 Tablet(s) PO UD 11/19/2016 12/01/2016 Inactive z pack as directed Tamiflu 75 mg capsule RxNorm: 639769 1 Capsule(s) PO BID 11/05/2016 11/09/2016 Inactive Kenalog 40 mg/mL karl pension for injection RxNorm: 1124143 Milliliter(s) Inj 11/05/2016 11/05/2016 In active Tessalon Perles 100 mg capsule RxNorm: 438095 1 -2 Capsule(s) PO TI D as needed cough 11/04/2016 11/18/2016 Inactive famotidine 40 mg tablet RxNorm: 315149 1 Tablet(s) PO QAM 10/25/2016 10/03/2017 Inactive famotidine 40 mg tablet RxNorm: 657805 1 Tablet(s) PO QAM 08/02/2016 10/24/2016 Inactive Carafate 1 gram tablet RxNorm: 461259 1 Tablet(s) PO TID DISSOLVE THE PILL IN 10ML OF WATER 07/22/2016 10/19/2016 Inactive clonidine HCl 0.1 mg tablet RxNorm: 607583 1 Tablet(s) PO BID an d 1 tablet as needed 07/22/2016 12/01/2016 Inactive Cinnamon 1000 mg RxNorm: 1 PO daily 05/19/2016 No Stop Date Active aspirin 81 mg tablet ,delayed release RxNorm: 602655 1 Tablet(s) PO QHS 05/19/2016 11/27/2018 In active losartan 25 mg tablet RxNorm: 094319 1 Tablet(s) PO BID 05/19/2016 11/17/2017 Inactive atenolol 25 mg tablet RxNorm: 801758 1.5 Tablet(s) PO BID 02/13/2016 07/21/2016 Inactive losartan 25 mg tablet RxNorm: 610218 2 Tablet(s) PO BID 01/13/2016 05/11/2016 Inactive Cardizem CD 240 mg c apsule,extended release RxNorm: 271174 1 Capsule(s) PO daily 01/13/2016 02/12/2016 In active losartan 100 mg tablet RxNorm: 861164 1/2 Tablet(s) PO BID 01/08/2016 01/12/2016 Inactive losartan 25 mg tablet RxNorm: 336098 2 Tablet(s) PO QPM 1 Tablet(s) PO QPM 12/18/2015 01/07/2016 In active atenolol 25 mg tablet RxNorm: 713616 1.5 Tablet(s) PO BID TAKE ONE TABLET BY MOUTH TWICE A DAY 12/18/2015 01/12/2016 Inactive atenolol 25 mg tablet RxNorm: 743886 Tablet(s) TAKE ONE TABLET BY MOUTH TWICE A DAY 11/14/2015 12/17/2015 Inactive losartan 25 mg tablet RxNorm: 101895 Tablet(s) 1 Tablet(s) PO QPM 11/14/2015 12/17/2015 Inactive spironolactone 25 mg tablet RxNorm: 812677 1 Tablet(s) PO daily 11/14/2015 12/14/2015 Inactive atenolol 25 mg tablet RxNorm: 305159 TAKE ONE TABLET BY MOUTH TWICE A DAY 08/07/2015 11/13/2015 In active atenolol 25 mg tablet RxNorm: 895711 1 Tablet(s) PO daily TAKE ONE TABLET BY MOUTH TWICE DAILY 08/06/2015 08/06/2015 Inactive Generic For:TENORMIN 25 MG TABLET 05/05/2015 10:00:22 AM atenolol 25 mg tablet RxNorm: 080465 1 Tablet(s) PO daily TAKE ONE TABLET BY MOUTH TWICE DAILY 08/06/2015 08/05/2015 Inactive Generic For:TENORMIN 25 MG TABLET 05/05/2015 10:00:22 AM betamethasone diprop ionate 0.05 % topical ointment RxNorm: 694227 1 TOP TID as needed rash 07/09/2015 05/18/2016 Inactive betamethasone diprop ionate 0.05 % topical ointment RxNorm: 283962 1 TOP TID as needed rash 07/09/2015 07/08/2015 Inactive spironolactone 25 mg tablet RxNorm: 406657 1 Tablet(s) PO daily 07/09/2015 07/08/2015 Inactive spironolactone 25 mg tablet RxNorm: 620220 1 Tablet(s) PO daily 07/09/2015 11/13/2015 Inactive losartan 25 mg tablet RxNorm: 727847 Tablet(s) 1 Tablet(s) PO QPM 05/27/2015 11/13/2015 Inactive atenolol 25 mg tablet RxNorm: 252843 TAKE ONE TABLET BY MOUTH TWICE DAILY 05/05/2015 08/05/2015 In active Generic For:TENORMIN 25 MG TABLET 05/05 10:00:22 AM hydrochlorothiazide 25 mg tablet RxNorm: 825125 1/2 Tablet(s) PO BID 02/17/2015 07/08/2015 Inactive Generic For:HYDRODIURIL 25 MG TABLET sulfamethoxazole 800 mg-trimethoprim 160 mg tablet RxNorm: 136601 1 Tablet(s) PO BID 01/16/2015 01/25/2015 Inactive losartan 25 mg tablet RxNorm: 187079 1 Tablet(s) PO QPM 12/09/2014 05/26/2015 Inactive Kenalog 40 mg/mL karl pension for injection RxNorm: 4415343 1 Milliliter(s) Inj 09/16/2014 09/16/2014 In active prednisone 20 mg tablet RxNorm: 246357 3 Tablet(s) PO daily 09/16/2014 09/18/2014 Inactive losartan 25 mg tablet RxNorm: 406533 1 Tablet(s) PO QPM 08/15/2014 12/08/2014 Inactive hydrochlorothiazide 25 mg tablet RxNorm: 572037 TAKE 1/2 TABLET BY MO UTH TWICE DAILY 08/13/2014 02/08/2015 Inactive Generic For:HYDRODIURIL 25 MG TABLET atenolol 25 mg tablet RxNorm: 123915 TAKE ONE TABLET BY MOUTH TWICE DAILY 05/07/2014 05/01/2015 In active Generic For:TENORMIN 25 MG TABLET ketorolac 60 mg/2 mL intramuscular solution RxNorm: 444120 2 Milliliter(s) IM 03/20/2014 03/20/2014 In active hydrochlorothiazide 25 mg tablet RxNorm: 867928 Tablet(s) PO TAKE 1/2 TABLET BY MOUTH TWICE DAILY 02/14/2014 08/12/2014 Inactive Generic For:HYDRODIURIL 25 MG TABLET Generic For:HYDRODIURIL 25 MG TABLET 02/14/2014 3:45:03 PM atorvastatin 10 mg t ablet RxNorm: 041778 1 Tablet(s) PO TIW 09/17/2013 03/19/2014 Inactive atorvastatin 10 mg t ablet RxNorm: 108115 tablet oral 09/17/2013 06/04/2015 Inactive hydrochlorothiazide 25 mg tablet RxNorm: 714374 Tablet(s) PO TAKE 1/2 TABLET BY MOUTH TWICE DAILY 08/06/2013 02/13/2014 Inactive Generic For:HYDRODIURIL 25 MG TABLET Generic For:HYDRODIURIL 25 MG TABLET 08/06/2013 1:52:35 PM amoxicillin 500 mg t ablet RxNorm: 130240 2 Tablet(s) PO 2 tabl ets PO 1 hour before dental procedure. 07/26/2013 07/25/2013 Inactive amoxicillin 500 mg t ablet RxNorm: 102855 2 Tablet(s) PO 2 tabl ets PO 1 hour before dental procedure. 07/26/2013 07/26/2013 Inactive methotrexate sodium 2.5 mg tablet RxNorm: 637038 tablet oral 07/13/2013 01/15/2015 Inactive atenolol 25 mg tablet RxNorm: 127643 Tablet(s) PO TAKE ONE TABLET BY MOUTH TW ICE DAILY 05/01/2013 05/06/2014 Inactive Generic For:TENORMIN 25 MG TABLET hydrochlorothiazide 25 mg tablet RxNorm: 761729 Tablet(s) PO TAKE 1/2 TABLET BY MOUTH TWICE DAILY 11/21/2012 08/05/2013 Inactive Generic For:HYDRODIURIL 25 MG TABLET atenolol 25 mg tablet RxNorm: 970246 Tablet(s) PO TAKE ONE TABLET BY MOUTH TW ICE DAILY 10/02/2012 04/30/2013 Inactive Generic For:TENORMIN 25 MG TABLET gemfibrozil 600 mg t ablet RxNorm: 216031 1 Tablet(s) PO BID 06/08/2012 10/08/2012 Inactive meclizine 25 mg tablet RxNorm: 3353134 1 Tablet(s) PO Q4 PRN 06/08/2012 09/05/2012 Inactive prednisone 10 mg Tab RxNorm: 055705 2 Tablet(s) PO daily 03/16/2012 03/20/2012 Inactive atorvastatin 10 mg Tab RxNorm: 450506 1 Tablet(s) PO daily 12/21/2011 12/20/2011 Inactive atorvastatin 10 mg Tab RxNorm: 749348 1 Tablet(s) PO daily 12/21/2011 06/08/2012 Inactive methotrexate sodium 2.5 mg Tab RxNorm: 783900 Tablet(s) PO 11/16/2011 06/12/2012 Inactive 3 on tuesday3 on hydrochlorothiazide 25 mg Tab RxNorm: 060572 1/2 Tablet(s) PO BID 11/01/2011 11/24/2012 Inactive hydrochlorothiazide 12.5 mg Cap RxNorm: 959056 Capsule(s) PO 11/01/2011 06/08/2012 Inactive TAKE ONE TABLET BY MOUTH TWICE DAILY;Gen swanson For:MICROZIDE 12.5 MG CAPSULE hydrochlorothiazide 25 mg Tab RxNorm: 090640 1/2 Tablet(s) PO BID 11/01/2011 11/24/2012 Inactive hydrochlorothiazide 25 mg tablet RxNorm: 851962 1/2 Tablet(s) PO BID 11/01/2011 10/31/2011 Inactive hydrochlorothiazide 25 mg Tab RxNorm: 294024 1/2 Tablet(s) PO BID 11/01/2011 10/31/2011 Inactive atenolol 25 mg tablet RxNorm: 709049 Tablet(s) PO 10/04/2011 10/01/2012 Inactive TAKE ONE TABLET BY MOUTH TWICE DAILY;Generic For:TENORMIN 25 MG TABLET hydrochlorothiazide 12.5 mg Cap RxNorm: 849818 1 Capsule(s) PO BID 09/13/2011 10/31/2011 Inactive Influenza Virus Vacc ine 0.5 mL RxNorm: IM 07/13/2011 07/13/2011 Inactive Pneumovax 23 25 mcg/ 0.5 mL Injection RxNorm: 525263 Milliliter(s) Inj 07/13/2011 07/13/2011 In active Cinnamon 1000 mg RxNorm: 2 PO daily No Start Date Active atenolol 25 mg Tab RxNorm: 878776 1 Tablet(s) PO BID No Start Date 10/03/2011 Inactive niacin ER 500 mg Cap RxNorm: 381185 1 Capsule(s) PO daily No Start Date 06/08/2012 Inactive gemfibrozil 600 mg t ablet RxNorm: 539828 1 Tablet(s) PO BID No Start Date 06/07/2012 Inactive Vitamin C 500 mg Tab RxNorm: 721617 1 Tablet(s) PO daily No Start Date 07/21/2016 Inactive Zithromax Z-Jeff 250 mg tablet RxNorm: 004984 1 Tablet(s) PO UD No Start Date 11/18/2016 Inactive z pack as directed doxazosin 1 mg tablet RxNorm: 860516 1 Tablet(s) PO BID No Start Date 12/01/2016 Inactive vitamin E (dl, aceta te) 400 unit Cap RxNorm: 839532 1 Capsule(s) PO daily No Start Date 07/21/2016 Inactive famotidine 40 mg tablet RxNorm: 130436 1 Tablet(s) PO QAM No Start Date 08/01/2016 Inactive Phenergan VC-Codeine 6.25 mg-5 mg-10 mg/5 mL syrup RxNorm: 866481 5 Milliliter(s) PO Q6 as needed No Start Date 12/31/2018 Inactive hydrochlorothiazide 25 mg Tab RxNorm: 333493 1/2 Tablet(s) PO BID No Start Date 09/12/2011 Inactive Tessalon Perles 100 mg capsule RxNorm: 151865 1 -2 Capsule(s) PO TI D as needed cough No Start Date 11/03/2016 Inactive aspirin 81 mg Tab, D elayed Release RxNorm: 101485 1 Tablet(s) PO every other day No Start Date 05/18/2016 Inactive Cinnamon 1000 mg RxNorm: 2 PO daily No Start Date 05/18/2016 Inactive clonidine HCl 0.1 mg tablet RxNorm: 807207 1 Tablet(s) PO QHS an d 1 Tablet as needed No Start Date 07/21/2016 Inactive Polo 3 Cap RxNorm: 1 Capsule(s) PO BID No Start Date 12/31/2018 Inactive niacin 500 mg tablet RxNorm: 405429 1 Tablet(s) PO QHS No Start Date 01/01/2015 Inactive multivitamin Tab RxNorm: 1 Tablet(s) PO daily No Start Date 07/21/2016 Inactive methotrexate sodium 2.5 mg Tab RxNorm: 618371 Tablet(s) PO No Start Date 11/15/2011 Inactive 3 on tuesday3 on T-Bio RxNorm: 1 PO daily No Start Date 05/18/2016 Inactive Vitamin D 2,000 unit Cap RxNorm: 1 Capsule(s) PO daily No Start Date 07/21/2016 Inactive hydrochlorothiazide 12.5 mg tablet RxNorm: 207834 1 Tablet(s) PO daily No Start Date 10/27/2017 Inactive Medication Administered Medication Codes Instruc tions Start Date Status Kenalog 40 mg/mL suspension for injection RxNorm: 7852463 Milliliter 01/01/2019 No longer Active Kenalog 40 mg/mL suspension for injection RxNorm: 1668974 1Milliliter 08/31/2018 N o longer Active Kenalog 40 mg/mL suspension for injection RxNorm: 4620532 Milliliter 11/05/2016 No longer Active Kenalog 40 mg/mL suspension for injection RxNorm: 6688211 1Milliliter 09/16/2014 N o longer Active ketorolac 60 mg/2 mL intramuscular solution RxNorm: 672258 2Milliliter 03/20/2014 N o longer Active Influenza Virus Vaccine 0.5 mL RxNorm: 07/13/2011 No longer Active Pneumovax 23 25 mcg/0.5 mL Injection RxNorm: 537310 Milliliter 07/13/2011 No longer Active Immunizations Vaccine Codes Date Status Influenza CVX: 141 07/06 completed Influenza CVX: 141 07/05 completed Influenza CVX: 141 07/22 completed Influenza CVX: 141 09/17 completed Influenza CVX: 141 10/13 completed Influenza CVX: 141 07/13 completed Pneumococcal (Adult) CVX: 33 07/13/2011 completed Assessments Condition Codes Effectiv e Dates Other specified disorders of teeth and supporting [...] 02/03/2012 VITAMIN DEFICIENCY ICD-9: 269.2 11/04/2011 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 07/13/2011 Postprandial bloating ICD-9: 787.3 07/13/2011 Seasonal allergies ICD-9: 477.9 07/13/2011 VAC STREP PNEUMONIAE-FLU ICD-9: V06.6 07/13/2011 Reason For Visit Reason For Visit Effective Dates Notes earache 01/08/2019 earache 01/01/2019 myalgias 12/18/2018 low [...] Ord64 K 3.8 mEq/L 12/06/2016 Comp Metabolic Mpp810 NA 134 mEq/L 12/03/2016 Comp Metabolic Xrk524 K Specimen 3+ Hemolyzed mEq/L 12/04/19 Comp Metabolic Zck308 CL 106 mEq/L 12/03/2016 Comp Metabolic Hif963 CO2 20.0 mEq/L 12/03/2016 Comp Metabolic Gnp522 AN ION GAP 16 12/03/2016 Comp Metabolic Qnd202 GL UCOSE 93 mg/dL 12/03/2016 Comp Metabolic Yjw020 Cr eat 0.8 mg/dL 12/03/2016 Comp Metabolic Mud757 eG FR 73 ml/min/1.73m2 12/03 Comp Metabolic Shi962 BUN 14 mg/dL 12/03/2016 Comp Metabolic Ttd113 B/ C Ratio 17.1 Ratio 12/03/2016 Comp Metabolic Gvl090 CA LCIUM 9.3 mg/dL 12/03/2016 Comp Metabolic Vrq902 AL K PHOS 63 U/L 12/03/2016 Comp Metabolic Mew679 T(SGOT) 69 U/L 12/03/2016 Comp Metabolic Nwq496 AL T(SGPT) 33 U/L 12/03/2016 Comp Metabolic Plj407 BI LI T 1.0 mg/dL 12/03/2016 Comp Metabolic Xhg197 AL BUMIN 4.3 g/dL 12/03/2016 Comp Metabolic Kwp080 TP RO 6.7 g/dL 12/03/2016 Comp Metabolic Zjo209 GL OB 2.4 g/dL 12/03/2016 Comp Metabolic Urn707 A/ G Ratio 1.7 Ratio 12/03/2016 Comp Metabolic Nfd907 Os mo 268 mOsmo 12/03/2016 Comp Metabolic Pma339 NA 138 mEq/L 12/18/2015 Comp Metabolic Etj149 K 4.1 mEq/L 12/18/2015 Comp Metabolic Wib366 CL 104 mEq/L 12/18/2015 Comp Metabolic Fkz934 CO2 22.0 mEq/L 12/18/2015 Comp Metabolic Fkh024 AN ION GAP 16 12/18/2015 Comp Metabolic Xuv881 GL UCOSE 89 mg/dL 12/18/2015 Comp Metabolic Smf685 Cr eat 0.6 mg/dL 12/18/2015 Comp Metabolic Mjo862 eG FR 99 ml/min/1.73m2 12/17 Comp Metabolic Igx207 BUN 15 mg/dL 12/18/2015 Comp Metabolic Laa258 B/ C Ratio 23.8 Ratio 12/18/2015 Comp Metabolic Ymq139 CA LCIUM 10.4 mg/dL 12/18/2015 Comp Metabolic Dyq730 AL K PHOS 77 U/L 12/18/2015 Comp Metabolic Xlm104 T(SGOT) 19 U/L 12/18/2015 Comp Metabolic Ozn174 AL T(SGPT) 17 U/L 12/18/2015 Comp Metabolic Hkd646 BI LI T 0.8 mg/dL 12/18/2015 Comp Metabolic Swl195 AL BUMIN 4.3 g/dL 12/18/2015 Comp Metabolic Nrm712 TP RO 6.7 g/dL 12/18/2015 Comp Metabolic Ztz190 GL OB 2.4 g/dL 12/18/2015 Comp Metabolic Kgy139 A/ G Ratio 1.7 Ratio 12/18/2015 Comp Metabolic Rdf068 Os mo 276 mOsmo 12/18/2015 Cbc With [...] 29.5 pg 12/18/2015 Cbc With Differential Ord2 [place]verse% 9.4 % 12/18/2015 Cbc With Differential Ord2 [...] 2.57 K/ul 12/18/2015 Cbc With Differential Ord2 Converse ABS# 0.8 K/ul 12/18/2015 Cbc With Differential Ord2 Eos ABS# 0.1 K/ul 12/18/2015 Cbc With Differential Ord2 Baso ABS# 0.0 K/ul 12/18/2015 Cbc With Differential Ord2 New Analyzer Notice Please note new ref ranges s tarting 10-15-2015 due to implemntation of new five part differential hematolgy analyzer. 12/18/2015 Total T3 Ord42 TT3 1.0 ng/ml 07/10/2015 Free T4 Iyo852 FREE T4 0.90 ng/dL 07/09/2015 Free T3 Ojw993 Free T3 2.92 pg/ml 07/09/2015 Tsh Ord6 hTSH II 1.18 uIU/mL 07/09/2015 URINALYSIS NONAUTO W/O SCOPE 91373 Specific [place] 1.005 DateTime(Free Text in Aprima) URINALYSIS NONAUTO W/O SCOPE 48588 PH 6 DateTime(Free Text in Aprima) URINALYSIS NONAUTO W/O SCOPE 44183 GLUCOSE neg DateTime(Free Dano t in Aprima) URINALYSIS NONAUTO W/O SCOPE 75262 Protein neg DateTime(Free Dano t in Aprima) URINALYSIS NONAUTO W/O SCOPE 79419 Blood neg DateTime(Free Dano t in Aprima) URINALYSIS NONAUTO W/O SCOPE 69424 Bilirubin neg DateTime(Free Dano t in Aprima) URINALYSIS NONAUTO W/O SCOPE 45890 Ketones neg DateTime(Free Dano t in Aprima) URINALYSIS NONAUTO W/O SCOPE 23581 Urobilinogen neg DateTime(Free Text in Aprima) URINALYSIS NONAUTO W/O SCOPE 85140 Nitrite neg DateTime(Free Dano t in Aprima) URINALYSIS NONAUTO W/O SCOPE 82408 Leukocytes neg DateTime(Free Text in Aprima) Review of Systems System Result Effective Dates Constitutional No recent illness 01/08/2019 Constitutional No [...] lips 11/18/2017 None Full Exam - General 1995 Ears/Nose/Throat [...] exam 06/12/2014 None Full Exam - General 1995 Ears/Nose/Throat internal nose Nasal cavity: mucosal exudate 06/12/2014 None Full Exam - General 1994 Ears/Nose/Throat oral cavity/pharynx/larynx Overall: oral mucosa clear 06/12/2014 None Full Exam - General 1995 Ears/Nose/Throat [...] exudate 05/21/2013 None Full Exam - General 1995 [...] accomodation 06/08/2012 None Full Exam - General 1995 Neck inspection of neck Overall: normal size 06/08/2012 None Full Exam - General 1994 Neck inspection of neck Overall: normal appearance 06/08/2012 None Full Exam - General 1995 Respiratory [...] to left leg Full Exam - General 1995 Ears/Nose/Throat external ear Overall: normal appearance 02/03/2012 [...] position 02/03/2012 None Full Exam - General 1995 [...] None Full Exam - General 1995 Cardiovascular inspection of pedal pulses Overall: strong, [...] Formatting Model/CDA Sections, Assigned to/Kimberley Fagan CPT-4: 79609Wuksnlm 07/06/2018 ADMIN INFLUENZA VIRU S VAC CPT-4: G0008 07/05/2017 FLU VACC PRSV FREE I NC ANTIG CPT-4: 44391 07/05/2017 THER/PROPH/DIAG INJ SC/IM CPT-4: 58426 11/05/2016 TRIAMCINOLONE ACET I [place] NOS CPT-4: J3301 11/05/2016 TRIAMCINOLONE ACET I [place] NOS CPT-4: J3301 09/16/2014 DRAIN/INJECT JOINT/B URSA CPT-4: 33756 09/16/2014 KETOROLAC TROMETHAMI NE INJ CPT-4: J1885 03/20/2014 URINALYSIS NONAUTO W /O SCOPE CPT-4: 77301 12/10/2013 PRESCRIP TRANSMIT A ERX SY CPT-4: G8553 09/17/2013 PRESCRIP TRANSMIT A ERX SY CPT-4: G8553 06/08/2012 TRIAMCINOLONE ACET I [place] NOS CPT-4: J3301 03/16/2012 INJ TRIGGER POINT 1/ 2 MUSCL CPT-4: 79211 03/16/2012 PRESCRIP TRANSMIT A ERX SY CPT-4: G8553 03/16/2012 ADMIN INFLUENZA VIRU S VAC CPT-4: G0008 07/13/2011 FLULAVAL VACC, 3 YRS & >, IM CPT-4: Q2036 07/13/2011 ADMIN PNEUMOCOCCAL V ACCINE SNOMED CT: 04284243 CPT-4: G0009 07/13/2011 Pneumococcal Polysac charide Vaccine, 23-Valent, Ad CPT-4: 27204 07/13/2011 Vital Signs Date Vital 01/08/2019 Blood Pressure 1: 128/70 Code: 8480-6 Heart Rate 1: 67 bpm SpO2: 97% 01/01/2019 Blood Pressure 1: 138/80 Code: 8480-6 BMI: 36.3 Code: 04189-9 Heart Rate 1: 64 bpm Height: 5'3" SpO2: 98% Weight: 205 lbs 12/18/2018 Blood Pressure 1: 120/62 Code: 8480-6 BMI: 36.0 Code: 61406-7 Heart Rate 1: 67 bpm Height: 5'3" SpO2: 97% Weight: 203 lbs 09/18/2018 Blood Pressure 1: 126/70 Code: 8480-6 BMI: 36.3 Code: 27288-5 Heart Rate 1: 58 bpm Height: 5'3" SpO2: 98% Weight: 205 lbs 08/31/2018 Blood Pressure 1: 148/76 Code: 8480-6 BMI: 37.0 Code: 17734-8 Heart Rate 1: 60 bpm Height: 5'3" SpO2: 98% Weight: 209 lbs 08/14/2018 Blood Pressure 1: 140/80 Code: 8480-6 BMI: 37.2 Code: 81202-4 Heart Rate 1: 76 bpm Height: 5'3" SpO2: 96% Weight: 210 lbs 05/22/2018 Blood Pressure 1: 150/62 Code: 8480-6 BMI: 36.7 Code: 75913-1 Heart Rate 1: 74 bpm Height: 5'3" SpO2: 98% Weight: 207 lbs 11/18/2017 Blood Pressure 1: 122/66 Code: 8480-6 BMI: 35.8 Code: 01926-9 Heart Rate 1: 59 bpm Height: 5'3" SpO2: 97% Weight: 202 lbs 08/03/2017 Blood Pressure 1: 122/60 Code: 8480-6 BMI: 36.0 Code: 57874-6 Heart Rate 1: 60 bpm Height: 5'3" SpO2: 97% Weight: 203 lbs 07/05/2017 Blood Pressure 1: 140/76 Code: 8480-6 BMI: 36.0 Code: 34916-8 Heart Rate 1: 58 bpm Height: 5'3" SpO2: 98% Weight: 203 lbs 12/02/2016 Blood Pressure 1: 122/70 Code: 8480-6 BMI: 34.4 Code: 18642-4 Heart Rate 1: 66 bpm Height: 5'3" SpO2: 99% Temperature: 36.4 (C ) / 97.5 (F) Weight: 194 lbs 11/22/2016 Blood Pressure 1: 102/60 Code: 8480-6 BMI: 34.2 Code: 99551-3 Heart Rate 1: 110 bpm Height: 5'3" SpO2: 98% Temperature: 36.7 (C ) / 98.0 (F) Weight: 193 lbs 11/05/2016 Blood Pressure 1: 140/62 Code: 8480-6 BMI: 36.1 Code: 67426-2 Heart Rate 1: 102 bpm Height: 5'3" SpO2: 97% Temperature: 37.1 (C ) / 98.7 (F) Weight: 204 lbs 07/22/2016 Blood Pressure 1: 158/80 Code: 8480-6 Blood Pressure 1: 160/76 Code: 8480-6 BMI: 36.8 Code: 33343-6 Heart Rate 1: 56 bpm Height: 5'3" SpO2: 98% Weight: 208 lbs 05/19/2016 Blood Pressure 1: 150/78 Code: 8480-6 Blood Pressure 1: 122/69 Code: 8480-6 BMI: 37.0 Code: 09064-7 Heart Rate 1: 61 bpm Height: 5'3" SpO2: 98% Weight: 209 lbs 02/13/2016 Blood Pressure 1: 140/76 Code: 8480-6 BMI: 36.8 Code: 71806-8 Heart Rate 1: 64 bpm Height: 5'3" SpO2: 97% Weight: 208 lbs 01/13/2016 Blood Pressure 1: 170/70 Code: 8480-6 BMI: 36.8 Code: 85991-7 Heart Rate 1: 65 bpm Height: 5'3" SpO2: 95% Weight: 208 lbs 01/02/2016 Blood Pressure 1: 150/88 Code: 8480-6 BMI: 36.8 Code: 25609-7 Heart Rate 1: 61 bpm Height: 5'3" SpO2: 98% Weight: 208 lbs 12/18/2015 Blood Pressure 1: 148/90 Code: 8480-6 BMI: 37.6 Code: 61907-6 Heart Rate 1: 64 bpm Height: 5'3" SpO2: 96% Weight: 212 lbs 09/08/2015 Blood Pressure 1: 130/88 Code: 8480-6 BMI: 37.0 Code: 17788-9 Heart Rate 1: 62 bpm Height: 5'3" SpO2: 97% Weight: 209 lbs 07/09/2015 Blood Pressure 1: 142/82 Code: 8480-6 BMI: 36.4 Code: 36509-5 Heart Rate 1: 66 bpm Height: 5'3" SpO2: 97% Weight: 205 lbs 5 oz 01/16/2015 Blood Pressure 1: 122/80 Code: 8480-6 BMI: 35.6 Code: 47699-3 Heart Rate 1: 67 bpm Height: 5'3" SpO2: 98% Weight: 201 lbs 01/03/2015 Blood Pressure 1: 122/70 Code: 8480-6 BMI: 35.6 Code: 30059-9 Heart Rate 1: 61 bpm Height: 5'3" Respiratory Rate: 16 bpm SpO2: 98% Weight: 201 lbs 09/16/2014 Blood Pressure 1: 132/78 Code: 8480-6 BMI: 34.9 Code: 74082-1 Heart Rate 1: 56 bpm Height: 5'3" Weight: 197 lbs 08/15/2014 Blood Pressure 1: 152/80 Code: 8480-6 Blood Pressure 2: 160/82 Code: 8480-6 BMI: 34.0 Code: 41226-1 Heart Rate 1: 75 bpm Height: 5'3" Weight: 192 lbs 06/12/2014 Blood Pressure 1: 136/82 Code: 8480-6 BMI: 34.9 Code: 65404-7 Heart Rate 1: 58 bpm Height: 5'3" SpO2: 96% Weight: 197 lbs 03/20/2014 Blood Pressure 1: 140/72 Code: 8480-6 BMI: 34.9 Code: 51078-1 Heart Rate 1: 60 bpm Height: 5'3" Weight: 197 lbs 12/10/2013 Blood Pressure 1: 132/78 Code: 8480-6 BMI: 35.1 Code: 58576-3 Heart Rate 1: 68 bpm Height: 5'3" Weight: 198 lbs 09/17/2013 Blood Pressure 1: 128/78 Code: 8480-6 BMI: 34.9 Code: 95360-1 Heart Rate 1: 68 bpm Height: 5'3" Weight: 197 lbs 05/21/2013 Blood Pressure 1: 128/82 Code: 8480-6 BMI: 35.6 Code: 96597-0 Heart Rate 1: 80 bpm Height: 5'3" Weight: 201 lbs 01/17/2013 Blood Pressure 1: 138/72 Code: 8480-6 BMI: 36.7 Code: 31906-2 Heart Rate 1: 60 bpm Height: 5'3" [...] 1: 140/78 Code: 8480-6 BMI: 40.0 Code: 65864-5 Heart Rate 1: 64 bpm Height: 5'3" Respiratory Rate: 16 bpm Weight: 226 lbs 11/04/2011 Blood Pressure 1: 136/76 Code: 8480-6 Heart Rate 1: 68 bpm Respiratory Rate: 16 bpm Weight: 226 lbs 07/13/2011 Blood Pressure 1: 142/80 Code: 8480-6 BMI: 40.0 Code: 11508-2 Heart Rate 1: 60 bpm Height: 5'4" Respiratory Rate: 16 bpm Weight: 233 lbs Functional Status No Functional Status data History of Present Illness Symptom Name Status Resu lt Effective Date Notes Location right ear 01/08/2019 None Quality acute [...] she had a dhesive capsulitis and Dr. Vleez manipulated the shoulder to break the adhesions. [...] Encounters Encounter Performer Loca tion Codes Date ([id number]) 49468 EST. P ATIENT, LEVEL II Diagnosis: Otalgia, right ear[ICD10: H92.01] Diagnosis: Other specified disorders of teeth and supporting structures[ICD10: K08.89] Юлия Manuel MD, [facility] CPT-4: 16115 01/08/2019 ([id number]) 05391 EST. P ATIENT, LEVEL III Diagnosis: Otalgia, right ear[ICD10: H92.01] Юлия Manuel MD, [facility] CPT- 4: 55153 01/01/2019 ([id number]) 13868 EST. 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 P ATIENT, LEVEL III Diagnosis: Nasal congestion[ICD10: R09.81] Diagnosis: Other allergic rhinitis[ICD10: J30.89] Юлия Manuel MD, [facility] CPT-4: 67492 08/31/2018 ([id number]) 48393 EST. P ATIENT, LEVEL III Diagnosis: Acute recurrent maxillary sinusitis[ICD10: J01.01] Юлия Manuel MD, [facility] CPT-4: 70560 08/14/2018 29273 EST. PATIENT, LEVEL III Diagnosis: Pain in right shoulder[ICD10: M25.511] Diagnosis: Pain in right arm[ICD10: M79.601] Willow Manuel MD, [facility] CPT-4: 15459 05/22/2018 ([id number]) 20832 EST. 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 PATIENT, LEVEL III Diagnosis: Other specified intestinal infections[ICD10: A08.8] Willow Manuel MD, [facility] CPT-4: 84256 08/03/2017 ([id number]) 30845 EST. 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 P ATIENT, LEVEL III Diagnosis: Essential (primary) hypertension[ICD10: I10] Юлия Manuel MD, [facility] CPT-4: 49800 12/02/2016 ([id number]) 75873 EST. P ATIENT, LEVEL III Diagnosis: Essential (primary) hypertension[ICD10: I10] Diagnosis: Allergic rhinitis due to pollen[ICD10: J30.1] Giuliana Manuel MD, [facility] CPT-4: 94581 11/22/2016 50942 EST. PATIENT, LEVEL III Diagnosis: Acute laryngopharyngitis[ICD10: J06.0] Diagnosis: Influenza due to unidentified influenza virus with other respiratory manifestations[ICD10: J11.1] Willow Manuel MD, [facility] CPT-4: 72149 11/05/2016 ([id number]) 58505 EST. P ATIENT, LEVEL III Diagnosis: Gastro-esophageal reflux disease without esophagitis[ICD10: K21.9] Diagnosis: Essential (primary) hypertension[ICD10: I10] Giuliana Manuel MD, [facility] CPT-4: 85483 07/22/2016 ([id number]) 01814 EST. P ATIENT, LEVEL IV Diagnosis: Essential (primary) hypertension[ICD10: I10] Diagnosis: Abdominal distension (gaseous)[ICD10: R14.0] Giuliana Manuel MD, [facility] CPT-4: 01754 05/19/2016 ([id number]) 29627 EST. P ATIENT, LEVEL III Diagnosis: Essential (primary) hypertension[ICD10: I10] Юлия Manuel MD, [facility] CPT-4: 59781 02/13/2016 ([id number]) 48755 EST. P ATIENT, LEVEL III Diagnosis: Essential (primary) hypertension[ICD10: I10] Юлия Manuel MD, [facility] CPT-4: 08572 01/13/2016 76069 EST. PATIENT, LEVEL IV Diagnosis: Essential (primary) hypertension[ICD10: I10] Diagnosis: Body mass index (BMI) 36.0-36.9, adult[ICD10: Z68.36] Willow Manuel MD, [facility] CPT-4: 98654 01/02/2016 ([id number]) 30280 EST. P ATIENT, LEVEL III Diagnosis: Essential (primary) hypertension[ICD10: I10] Юлия Manuel MD, [facility] CPT-4: 56999 12/18/2015 ([id number]) 92562 EST. P ATIENT, LEVEL IV Diagnosis: Essential (primary) hypertension[ICD10: I10] Diagnosis: Benign paroxysmal vertigo, bilateral[ICD10: H81.13] Diagnosis: Radiculopathy, cervical region[ICD10: M54.12] Giuliana Manuel MD, [facility] CPT-4: 37164 09/08/2015 ([id number]) 34207 EST. P ATIENT, LEVEL IV Diagnosis: Other specified nonscarring hair loss[ICD10: L65.8] Diagnosis: Myositis, unspecified[ICD10: M60.9] Diagnosis: Psoriasis, unspecified[ICD10: L40.9] Diagnosis: Essential (primary) hypertension[ICD10: I10] Giuliana Manuel MD, [facility] CPT-4: 79251 07/09/2015 ([id number]) 04329 EST. P ATIENT, LEVEL III Diagnosis: ESSENTIAL HYPERTENSION[ICD9: 401.9] Giuliana Manuel MD, [facility] CPT- 4: 81336 01/16/2015 ([id number]) 78297 EST. P ATIENT, LEVEL III Diagnosis: Shoulder pain[ICD9: 719.41] Diagnosis: ESSENTIAL HYPERTENSION[ICD9: 401.9] Diagnosis: PALPITATIONS[ICD9: 785.1] Giuliana Manuel MD, [facility] CPT-4: 94144 01/03/2015 ([id number]) 16394 EST. P ATIENT, LEVEL III Diagnosis: Sacroiliitis[ICD9: 720.2] Diagnosis: Back pain[ICD9: 724.5] Diagnosis: ESSENTIAL HYPERTENSION[ICD9: 401.9] Giuliana Manuel MD, [facility] CPT- 4: 46201 09/16/2014 ([id number]) 53683 EST. P ATIENT, LEVEL IV Diagnosis: ESSENTIAL HYPERTENSION[ICD9: 401.9] Diagnosis: Arrhythmia[ICD9: 427.9] Diagnosis: Nausea[ICD9: 787.02] Giuliana Manuel MD, [facility] CPT-4: 16704 08/15/2014 ([id number]) 77658 EST. P ATIENT, LEVEL IV Diagnosis: ESSENTIAL HYPERTENSION[ICD9: 401.9] Diagnosis: Back pain[ICD9: 724.5] Diagnosis: Allergic reaction[ICD9: 995.3] Giuliana Manuel MD, [facility] CPT-4: 62902 06/12/2014 ([id number]) 05972 EST. P ATIENT, LEVEL III Diagnosis: Thoracic back pain[ICD9: 724.1] Diagnosis: MYALGIA AND MYOSITIS[ICD9: 729.1] Giuliana Manuel MD, [facility] CPT-4: 61263 03/20/2014 ([id number]) 10333 EST. P ATIENT, LEVEL IV Diagnosis: HYPERLIPIDEMIA[ICD9: 272.4] Diagnosis: ESSENTIAL HYPERTENSION[SNOMED: 93770796] Diagnosis: ABDOM PAIN NOS SITE[ICD9: 789.00] Giuliana Manuel MD, [facility] CPT-4: 64257 12/10/2013 ([id number]) 12636 EST. P ATIENT, LEVEL IV Diagnosis: ESSENTIAL HYPERTENSION[SNOMED: 26081080] Diagnosis: HYPERLIPIDEMIA[ICD9: 272.4] Giuliana Manuel MD, [facility] CPT-4: 94798 09/17/2013 ([id number]) 69174 EST. P ATIENT, LEVEL IV Diagnosis: ESSENTIAL HYPERTENSION[SNOMED: 14370577] Diagnosis: OBESITY[ICD9: 278.00] Diagnosis: Back pain[ICD9: 724.5] Giuliana Manuel MD, [facility] CPT-4: 09261 05/21/2013 ([id number]) 78229 EST. P ATIENT, LEVEL IV Diagnosis: ESSENTIAL HYPERTENSION[SNOMED: 23672028] Diagnosis: HYPERLIPIDEMIA[ICD9: 272.4] Diagnosis: Abdominal pain[ICD9: 789.00] Diagnosis: BENIGN PAROXYSMAL VERTIGO[ICD9: 386.11] Giuliana Manuel MD, [facility] CPT-4: 86573 01/17/2013 ([id number]) 78360 EST. P ATIENT, LEVEL IV Diagnosis: ESSENTIAL HYPERTENSION[SNOMED: 35757381] Diagnosis: BENIGN PAROXYSMAL VERTIGO[ICD9: 386.11] Diagnosis: Hair loss[ICD9: 704.00] Diagnosis: Vitamin d deficiency[ICD9: 268.9] Diagnosis: Bleeding from the nose[ICD9: 784.7] Giuliana Manuel MD, [facility] CPT- 4: 88748 09/20/2012 48369 EST. PATIENT, LEVEL IV Diagnosis: BPPV (benign paroxysmal positional vertigo)[ICD9: 386.11] Diagnosis: HYPERLIPIDEMIA[ICD9: 272.4] Diagnosis: ESSENTIAL HYPERTENSION[SNOMED: 33651472] Giuliana Manuel MD, [facility] CPT-4: 39783 06/08/2012 ([id number]) 73753 EST. P ATIENT, LEVEL IV Diagnosis: BPPV (benign paroxysmal positional vertigo)[ICD9: 386.11] Diagnosis: Diverticulitis[ICD9: 562.11] Diagnosis: Abdominal pain[ICD9: 789.00] Giuliana Manuel MD, [facility] CPT-4: 98120 04/10/2012 ([id number]) 26564 EST. P ATIENT, LEVEL III Diagnosis: Neck pain[ICD9: 723.1] Diagnosis: Acute upper back pain[ICD9: 724.1] Giuliana Manuel MD, [facility] CPT- 4: 20282 03/16/2012 ([id number]) 17637 EST. P ATIENT, LEVEL IV Diagnosis: HYPERLIPIDEMIA[ICD9: 272.4] Diagnosis: ESSENTIAL HYPERTENSION[SNOMED: 15350606] Diagnosis: Constipation - functional[ICD9: 564.09] Giuliana Manuel MD, [facility] CPT-4: 15616 02/03/2012 ([id number]) 53834 EST. P ATIENT, LEVEL IV Diagnosis: HYPERLIPIDEMIA[ICD9: 272.4] Diagnosis: VITAMIN DEFICIENCY[ICD9: 269.2] Diagnosis: ESSENTIAL HYPERTENSION[SNOMED: 86381520] Giuliana Manuel MD, [facility] CPT-4: 10567 11/04/2011 01242 EST. 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 01/08/2019 Appointment: Юлия Rojas WPtel: [address] [place], [place] [phone] (30 min) [facility] 01/08/2019 Patient Education: Patient Medication Summary Completed 01/08/2019 Visit Plan: Right ear pain -concern for trigeminal neuralgia -she does have some sinus tenderness -will give kenalog injection today - continue anti histamine daily -monitor symptoms and call if persistent, worsen o r new symptoms develop. Patient verbalized understanding of plan. 01/01/2019 Appointment: Юлия Rojas WPtel: [phone] [phone] (30 min) Complex 01/01/2019 Patient Education: [...] not improving. 12/18/2018 Appointment: Giuliana Manuel WPtel: [phone] [facility] (15 min) Moderate 12/18/2018 Patient Education: [...] low back. 09/18/2018 Appointment: Giuliana Manuel WPtel: [phone] [facility] (15 min) Moderate 09/18/2018 Patient Education: [...] allergy spray. 08/31/2018 Appointment: Юлия Rojas WPtel: [phone] [phone] (15 min) Moderate 08/31/2018 Patient Education: [...] not improve. 05/22/2018 [facility]ment[phone] ([facility] min) Moderate 05/22/2018 Patient Education: Patient [...] improving. 11/18/2017 Appointment: Giuliana Manuel WPtel: [facility] (15 min) Moderate 11/18/2017 Patient Education: Patient Medication Summary Completed 11/18/2017 Appointment: Giuliana Manuel WPtel: [address] [place], [place] [phone] (15 min) Moderate 11/07/2017 Visit Plan: Diarrhea [...] improved. 08/03/2017 Appointment: Willow Garcia WPtel: [facility] (30 min) Complex 08/03/2017 Patient Education: [...] daily. 07/05/2017 Appointment: Giuliana Manuel WPtel: [facility] (15 min) Moderate 07/05/2017 Patient Education: Patient Medication Summary Completed 07/05/2017 Patient Education: Obesity Completed 07/05/2017 Appointment: Giuliana Manuel WPtel: [facility] (15 min) Moderate 06/27/2017 Appointment: Giuliana Manuel WPtel: [phone] [facility] (15 min) Moderate 06/21/2017 Appointment: Юлия Rojas WPtel: [address] [place], [place] [phone] (30 min) Complex 12/23/2016 Visit Plan: Hypertension - - the pa amaod's medications have been modified as documented in [...] RESTART HCTZ 12/02/2016 Appointment: Юлия Rojas WPtel: [address] [place], [place] [phone] (30 min) Complex 12/02/2016 Patient Education: Patient [...] days 11/22/2016 Appointment: Giuliana Manuel WPtel: [facility] (15 min) Moderate 11/22/2016 Patient Education: Patient Medication Summary Completed 11/22/2016 Patient Education: Obesity Completed 11/22/2016 Visit Plan: Influenza - pt started on tamiflu - pt to start on anti-inflammatories, tylenol and monitor symptoms. Pt to call if not improving. Pt to alert any close contacts as to illness. 11/05/2016 [facility]ment: [phone] (30 min) Complex 11/05/2016 Patient Education: Patient [...] on carafate 07/22/2016 [facility]ment: [phone] ([facility]) Mod[facility] 07/22/2016 Patient Education: Patient Medication Summary Completed 07/22/2016 Patient Education: Obesity Completed 07/22/2016 Care Plan: Referral Order SNOMED-CT : [id number] Pending 07/22/2016 Visit Plan: Hypertension - well [...] Obesity Completed 05/19/2016 Appointment: [phone] (15 min) Moderate 05/17/2016 Visit Plan: Hypertension - well con trolled - continue with current medications, continue with no added salt diet. Pt has been encouraged to exercise daily. The pt has been advised to call the office if there are any acute concerns about change in blood pressure readings at home. 02/13/2016 Appointment: [phone] (30 min) Complex 02/13/2016 Patient Education: Patient [...] Obesity Completed 12/18/2015 Appointment: Giuliana Manuel WPtel: [facility] (15 min) Moderate 12/08/2015 Referral: Jared Lafleur [address] [place], [place] [phone] Referral Completed 10/17/2015 Visit Plan: Hypertension - [...] stress test. 09/08/2015 Appointment: Giuliana Manuel WPtel: [facility] (15 min) Moderate 09/08/2015 Patient Education: Patient Medication Summary Completed 09/08/2015 Patient Education: .Cervicalgia Neck Pain Completed 09/08/2015 Care Plan: Referral Order SNOMED-CT : [id number] Ordered 09/08/2015 Visit Plan: Hypertension - uncontro [...] checked today. 07/09/2015 Appointment: Giuliana Manuel WPtel: [address] [place] [address] (15 min) Moderate 07/09/2015 Patient Education: Patient Medication Summary Completed 07/09/2015 Appointment: Giuliana Manuel WPtel: [address] [place], [place] [phone] (15 min) Moderate 07/07/2015 Appointment: Giuliana Manuel WPtel: [address] [place], [place] [phone] Follow up 03/17/2015 Visit Plan: Hypertension - well con trolled - continue with current medications, continue with no added salt diet. Pt has been encouraged to exercise daily. The pt has been advised to call the office if there are any acute concerns about change in blood pressure readings at home. Palpitations resolved. 01/16/2015 Appointment: Giuliana Manuel WPtel: [facility] Other 01/16/2015 Patient Education: Patient Medication [...] pain symptoms. 01/03/2015 Appointment: Giuliana Manuel WPtel: [facility] Follow up 01/03/2015 Patient Education: Patient [...] Hypertension Completed 09/16/2014 Appointment: Giuliana Manuel WPtel: [facility] Follow up 09/09/2014 Visit Plan: Hypertension [...] worsen. 08/15/2014 Appointment: Giuliana Manuel WPtel: [facility] [facility] 08/15/2014 Patient Education: Patient Medication Summary Completed 08/15/2014 Patient Education: Hypertension Completed 08/15/2014 Care Plan: Referral Order SNOMED-CT : [id number] Ordered 08/15/2014 Appointment: Giuliana Manuel WPtel: [phone] [facility] Follow up 06/18/2014 Visit Plan: Back pain - [facility] Rash - reaction to [...] at home. 06/12/2014 Appointment: Giuliana Manuel WPtel: [facility] [facility] 06/12/2014 Patient Education: Patient Medication Summary Completed 06/12/2014 Patient Education: Hypertension Completed 06/12/2014 Care Plan: Referral Order SNOMED-CT : [id number] Ordered 06/12/2014 Visit Plan: Hypertension - well [...] spine xrays. 03/20/2014 Appointment: Giuliana Manuel WPtel: [phone] [facility] Follow up 03/20/2014 Patient Education: Patient Medication [...] UTI 12/10/2013 Appointment: Giuliana Manuel WPtel: [phone] [facility] Follow up 12/10/2013 Patient Education: Patient Medication [...] weekly. 09/17/2013 Appointment: Giuliana Manuel WPtel: [phone] [facility] Follow up 09/17/2013 Patient Education: Patient [...] muscle rub. 05/21/2013 Appointment: [phone] Follow [facility] 05/21/2013 Patient Education: Patient Medication [...] vertigo. 01/17/2013 Appointment: Giul[phone] Follow up 01/17/2013 Patient Education: Patient Medication [...] if needed. 09/20/2012 Appointment: Giuliana Manuel WPtel: [facility] Follow up 09/20/2012 Patient Education: Patient Medication [...] intolerance begin. 06/08/2012 Appointment: Giuliana Manuel WPtel: [facility] Follow up 06/08/2012 Patient Education: Patient Medication [...] or popcorn. 04/10/2012 Appointment: Giuliana Manuel WPtel: [address] [place], [place] [phone] Other 04/10/2012 Patient Education: Patient Medication Summary [...] if not better by Tuesday. 03/16/2012 Appointment: Mar Giuliana WPtel: [phone] [facility] Other 03/16/2012 Patient Education: Patient Medication Summary Completed 03/16/2012 Visit Plan: Hypertension - well con trolalyed - continue with current medications, continue with [...] this regimen. 02/03/2012 Appointment: [phone] Other 02/03/2012 Patient Education: Patient Medication Summary Completed 02/03/2012 Patient Education: High Blood Pressure: Essential Hypertension Completed 02/03/2012 Patient Education: .Belgicaing yana Stephan Soni Completed 02/03/2012 Visit Plan: Hyperlipidemia - pt [...] week. 11/04/2011 Appointment: Giuliana Manuel WPtel: [facility] Follow up 11/04/2011 Patient Education: Patient [...] She will monitor her intake. Allergies - [facility] for the headaches to see ifnallergy medication helps to prevent the headaches flu shot pneumonia shot 07/13/2011 Appointment: Giul[facility] Manuel [facility]el[phone] Other 07/13/2011 Patient Education: Patient Medication Summary Completed 07/13/2011 Patient Education: .Gage millan Diabe tic meal planning guide Completed 07/13/2011 Referral: Jared Lafleur [address] [facility] D [id number] Referral Appointment Requested Referral: Duarte Catalan Referral Appointment Requested Referral: Dr. Willams WPtel: [phone] [facility] [place] Referral Initiated Referral: [facility] WPtel: [phone] [facility] Referral Initiated Instructions Comment . Hyperlipidemia - pt has been counseled [...] negative for a UTI . Hypertension - wel l controlled - [...] . Back pain - referr al to [facility]. Rash - reaction to soy [...] recommended pt to have labs checked today. KENALOG CONTINUE BENADRYL AT BEDTIME . Right [...] pt is to call for acute concerns. apply the voltaren g el to both [...] may need injection into low back. . Neck pain- start p hysical therapy [...] back - call if not better by Thong. . Hyperlipidemia - pt has been counseled [...] room if symptoms worsen. . Hypertension - we ll controlled - [...] THE LIPITOR (ATORVASTATIN) FOR TWO WEEKS AND NARINEDR IS TO CALL THE OFFICE AND LET [...] blood pressure readings at home. Palpitations resolved. ibuprofen 2 pills 3 times a day [...] do not improve or if they worsen. hold the omega 3 fis h oil [...] as tolerated. Call if symptoms not improved. . Hypertension - wel l controlled - [...] not improving. Pt to start on carafate hold clonidine x 3 d ays then [...]
--- OUTSIDE RECORDS SUMMARY | 2020-01-21 14:06 | XMS REPORT | CCD ---
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 09/08/2015 Marital status Unknown M arried 07/13/[address]: 981359904 Nonsmoker 07/13/[address]: 167155957 Never drinks alcohol 07/13/2011 Allergies, Adverse Reactions, Alerts Substance Reaction Codes Entered Date Inactivated Date Status Soy Unknown 07/13/2011 No Inactive Date Active Cardizem RxNorm: 043652 05/19/2016 No Inactive Date Active Metoprolol Succinate [...] pain ICD-9: 789.00 Active 07/13/2011 Unknown 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 Active 07/13/2011 Unknown OBESITY ICD-9: [...] Abdominal pain ICD-9: 789.00 07/13/2011 Active 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 07/13/2011 Active OBESITY ICD-9: 278.00 07/13/2011 Active Postprandial bloating ICD-9: 787.3 07/13/2011 Active Seasonal allergies ICD- 9: 477.9 07/13/2011 Active VAC STREP PNEUMONIAE -FLU ICD-9: V06.6 07/13/2011 Active Medications Medication Codes Instruc tions Start Date Stop Date Sta tus Fill Instructions Kenalog 40 mg/mL karl pension for injection RxNorm: 8935581 Milliliter(s) Inj 01/01/2019 01/01/2019 In active losartan 25 mg tablet RxNorm: 618686 1 Tablet(s) PO BID 11/01/2018 10/26/2019 Active losartan 25 mg tablet RxNorm: 625423 1 Tablet(s) PO BID 11/01/2018 10/31/2018 Inactive hydrochlorothiazide 12.5 mg tablet RxNorm: 691723 TAKE 1 TABLET BY MOUT H EVERY DAY 10/02/2018 03/30/2019 Ac tive - First Attempt Ref: [id number] famotidine 40 mg tablet RxNorm: 298711 TAKE 1 TABLET BY MOUTH EVERY MORNING 10/02/2018 03/30/2019 Ac tive - First Attempt Ref: [id number] doxazosin 1 mg tablet RxNorm: 071379 TAKE 1 TABLET BY [facility] 10/02/2018 03/30/2019 Ac tive - First Attempt Ref: [id number] naproxen 500 mg tablet RxNorm: 133465 1 Tablet(s) PO BID 09/18/2018 09/24/2018 Inactive diclofenac 1 % topic al gel RxNorm: 592932 2 Application TOP QID 09/18/2018 11/16/2018 Inactive Kenalog 40 mg/mL karl pension for injection RxNorm: 3212969 1 Milliliter(s) Inj 08/31/2018 08/31/2018 In active clonidine HCl 0.1 mg tablet RxNorm: 146761 1/2 Tablet(s) PO BID 08/16/2018 08/10/2019 Active amoxicillin 500 mg t ablet RxNorm: 564171 1 Tablet(s) PO TID 08/14/2018 08/20/2018 Inactive losartan 25 mg tablet RxNorm: 190786 1 Tablet(s) PO BID 05/02/2018 05/01/2018 Inactive losartan 25 mg tablet RxNorm: 804465 1 Tablet(s) PO BID 05/02/2018 10/31/2018 Inactive losartan 25 mg tablet RxNorm: 039345 1 Tablet(s) PO BID 01/30/2018 05/01/2018 Inactive Vitamin D 2,000 unit capsule RxNorm: 1 Capsule(s) PO daily 11/18/2017 No Stop Date Active atenolol 25 mg tablet RxNorm: 832547 1 Tablet(s) PO daily 11/18/2017 11/12/2018 Inactive atenolol 25 mg tablet RxNorm: 928577 1 Tablet(s) PO BID managed by Dr Lafleur 11/18/2017 11/17/2017 In active clonidine HCl 0.1 mg tablet RxNorm: 940837 1/2 Tablet(s) PO BID 11/18/2017 08/15/2018 Inactive doxazosin 1 mg tablet RxNorm: 896193 1 Tablet(s) PO daily at midnight 11/18/2017 10/01/2018 In active midnight losartan 25 mg tablet RxNorm: 970740 1 Tablet(s) PO BID 11/18/2017 01/29/2018 Inactive hydrochlorothiazide 12.5 mg tablet RxNorm: 746007 1 Tablet(s) PO daily 11/18/2017 10/01/2018 In active famotidine 40 mg tablet RxNorm: 318296 1 Tablet(s) PO daily TAKE 1 TABLET BY MO UTH EVERY MORNING 11/18/2017 10/01/2018 Inactive - Ref: [id number] hydrochlorothiazide 12.5 mg tablet RxNorm: 231098 1 Tablet(s) PO daily 10/28/2017 11/17/2017 In active famotidine 40 mg tablet RxNorm: 548244 TAKE 1 TABLET BY MOUTH EVERY MORNING 10/04/2017 11/17/2017 In active - Ref: [id number] clonidine HCl 0.1 mg tablet RxNorm: 590210 1/2 Tablet(s) PO BID 07/05/2017 11/17/2017 Inactive doxazosin 1 mg tablet RxNorm: 412783 1 Tablet(s) PO daily at midnight 07/05/2017 11/17/2017 In active midnight doxazosin 1 mg tablet RxNorm: 691679 1 Tablet(s) PO BID 12/02/2016 2017 Inactive midnight prednisone 20 mg tablet RxNorm: 986470 3 Tablet(s) PO daily 11/22/2016 11/26/2016 Inactive Tessalon Perles 100 mg capsule RxNorm: 509304 1 -2 Capsule(s) PO TI D as needed cough 11/19/2016 12/31/2018 Inactive Zithromax Z-Jeff 250 mg tablet RxNorm: 515177 1 Tablet(s) PO UD 11/19/2016 12/01/2016 Inactive z pack as directed Tamiflu 75 mg capsule RxNorm: 529440 1 Capsule(s) PO BID 11/05/2016 11/09/2016 Inactive Kenalog 40 mg/mL karl pension for injection RxNorm: 2482396 Milliliter(s) Inj 11/05/2016 11/05/2016 In active Tessalon Perles 100 mg capsule RxNorm: 075670 1 -2 Capsule(s) PO TI D as needed cough 11/04/2016 11/18/2016 Inactive famotidine 40 mg tablet RxNorm: 800040 1 Tablet(s) PO QAM 10/25/2016 10/03/2017 Inactive famotidine 40 mg tablet RxNorm: 124699 1 Tablet(s) PO QAM 08/02/2016 10/24/2016 Inactive Carafate 1 gram tablet RxNorm: 613715 1 Tablet(s) PO TID DISSOLVE THE PILL IN 10ML OF WATER 07/22/2016 10/19/2016 Inactive clonidine HCl 0.1 mg tablet RxNorm: 458496 1 Tablet(s) PO BID an d 1 tablet as needed 07/22/2016 12/01/2016 Inactive Cinnamon 1000 mg RxNorm: 1 PO daily 05/19/2016 No Stop Date Active aspirin 81 mg tablet ,delayed release RxNorm: 134257 1 Tablet(s) PO QHS 05/19/2016 11/27/2018 In active losartan 25 mg tablet RxNorm: 710156 1 Tablet(s) PO BID 05/19/2016 11/17/2017 Inactive atenolol 25 mg tablet RxNorm: 625123 1.5 Tablet(s) PO BID 02/13/2016 07/21/2016 Inactive losartan 25 mg tablet RxNorm: 604662 2 Tablet(s) PO BID 01/13/2016 05/11/2016 Inactive Cardizem CD 240 mg c apsule,extended release RxNorm: 332012 1 Capsule(s) PO daily 01/13/2016 02/12/2016 In active losartan 100 mg tablet RxNorm: 632537 1/2 Tablet(s) PO BID 01/08/2016 01/12/2016 Inactive losartan 25 mg tablet RxNorm: 128734 2 Tablet(s) PO QPM 1 Tablet(s) PO QPM 12/18/2015 01/07/2016 In active atenolol 25 mg tablet RxNorm: 041013 1.5 Tablet(s) PO BID TAKE ONE TABLET BY MOUTH TWICE A DAY 12/18/2015 01/12/2016 Inactive atenolol 25 mg tablet RxNorm: 616849 Tablet(s) TAKE ONE TABLET BY MOUTH TWICE A DAY 11/14/2015 12/17/2015 Inactive losartan 25 mg tablet RxNorm: 779131 Tablet(s) 1 Tablet(s) PO QPM 11/14/2015 12/17/2015 Inactive spironolactone 25 mg tablet RxNorm: 705645 1 Tablet(s) PO daily 11/14/2015 12/14/2015 Inactive atenolol 25 mg tablet RxNorm: 087562 TAKE ONE TABLET BY MOUTH TWICE A DAY 08/07/2015 11/13/2015 In active atenolol 25 mg tablet RxNorm: 887798 1 Tablet(s) PO daily TAKE ONE TABLET BY MOUTH TWICE DAILY 08/06/2015 08/06/2015 Inactive Generic For:TENORMIN 25 MG TABLET 05/05/2015 10:00:22 AM atenolol 25 mg tablet RxNorm: 905664 1 Tablet(s) PO daily TAKE ONE TABLET BY MOUTH TWICE DAILY 08/06/2015 08/05/2015 Inactive Generic For:TENORMIN 25 MG TABLET 05/05/2015 10:00:22 AM betamethasone diprop ionate 0.05 % topical ointment RxNorm: 896298 1 TOP TID as needed rash 07/09/2015 05/18/2016 Inactive betamethasone diprop ionate 0.05 % topical ointment RxNorm: 746621 1 TOP TID as needed rash 07/09/2015 07/08/2015 Inactive spironolactone 25 mg tablet RxNorm: 544339 1 Tablet(s) PO daily 07/09/2015 07/08/2015 Inactive spironolactone 25 mg tablet RxNorm: 253357 1 Tablet(s) PO daily 07/09/2015 11/13/2015 Inactive losartan 25 mg tablet RxNorm: 969285 Tablet(s) 1 Tablet(s) PO QPM 05/27/2015 11/13/2015 Inactive atenolol 25 mg tablet RxNorm: 139888 TAKE ONE TABLET BY MOUTH TWICE DAILY 05/05/2015 08/05/2015 In active Generic For:TENORMIN 25 MG TABLET 05/05 10:00:22 AM hydrochlorothiazide 25 mg tablet RxNorm: 544878 1/2 Tablet(s) PO BID 02/17/2015 07/08/2015 Inactive Generic For:HYDRODIURIL 25 MG TABLET sulfamethoxazole 800 mg-trimethoprim 160 mg tablet RxNorm: 830159 1 Tablet(s) PO BID 01/16/2015 01/25/2015 Inactive losartan 25 mg tablet RxNorm: 752665 1 Tablet(s) PO QPM 12/09/2014 05/26/2015 Inactive Kenalog 40 mg/mL karl pension for injection RxNorm: 3649438 1 Milliliter(s) Inj 09/16/2014 09/16/2014 In active prednisone 20 mg tablet RxNorm: 055483 3 Tablet(s) PO daily 09/16/2014 09/18/2014 Inactive losartan 25 mg tablet RxNorm: 343878 1 Tablet(s) PO QPM 08/15/2014 12/08/2014 Inactive hydrochlorothiazide 25 mg tablet RxNorm: 630827 TAKE 1/2 TABLET BY MO UTH TWICE DAILY 08/13/2014 02/08/2015 Inactive Generic For:HYDRODIURIL 25 MG TABLET atenolol 25 mg tablet RxNorm: 097086 TAKE ONE TABLET BY MOUTH TWICE DAILY 05/07/2014 05/01/2015 In active Generic For:TENORMIN 25 MG TABLET ketorolac 60 mg/2 mL intramuscular solution RxNorm: 444287 2 Milliliter(s) IM 03/20/2014 03/20/2014 In active hydrochlorothiazide 25 mg tablet RxNorm: 818895 Tablet(s) PO TAKE 1/2 TABLET BY MOUTH TWICE DAILY 02/14/2014 08/12/2014 Inactive Generic For:HYDRODIURIL 25 MG TABLET Generic For:HYDRODIURIL 25 MG TABLET 02/14/2014 3:45:03 PM atorvastatin 10 mg t ablet RxNorm: 585383 1 Tablet(s) PO TIW 09/17/2013 03/19/2014 Inactive atorvastatin 10 mg t ablet RxNorm: 603788 tablet oral 09/17/2013 06/04/2015 Inactive hydrochlorothiazide 25 mg tablet RxNorm: 988617 Tablet(s) PO TAKE 1/2 TABLET BY MOUTH TWICE DAILY 08/06/2013 02/13/2014 Inactive Generic For:HYDRODIURIL 25 MG TABLET Generic For:HYDRODIURIL 25 MG TABLET 08/06/2013 1:52:35 PM amoxicillin 500 mg t ablet RxNorm: 987232 2 Tablet(s) PO 2 tabl ets PO 1 hour before dental procedure. 07/26/2013 07/25/2013 Inactive amoxicillin 500 mg t ablet RxNorm: 396296 2 Tablet(s) PO 2 tabl ets PO 1 hour before dental procedure. 07/26/2013 07/26/2013 Inactive methotrexate sodium 2.5 mg tablet RxNorm: 836791 tablet oral 07/13/2013 01/15/2015 Inactive atenolol 25 mg tablet RxNorm: 645813 Tablet(s) PO TAKE ONE TABLET BY MOUTH TW ICE DAILY 05/01/2013 05/06/2014 Inactive Generic For:TENORMIN 25 MG TABLET hydrochlorothiazide 25 mg tablet RxNorm: 371381 Tablet(s) PO TAKE 1/2 TABLET BY MOUTH TWICE DAILY 11/21/2012 08/05/2013 Inactive Generic For:HYDRODIURIL 25 MG TABLET atenolol 25 mg tablet RxNorm: 969579 Tablet(s) PO TAKE ONE TABLET BY MOUTH TW ICE DAILY 10/02/2012 04/30/2013 Inactive Generic For:TENORMIN 25 MG TABLET gemfibrozil 600 mg t ablet RxNorm: 698255 1 Tablet(s) PO BID 06/08/2012 10/08/2012 Inactive meclizine 25 mg tablet RxNorm: 7247609 1 Tablet(s) PO Q4 PRN 06/08/2012 09/05/2012 Inactive prednisone 10 mg Tab RxNorm: 448736 2 Tablet(s) PO daily 03/16/2012 03/20/2012 Inactive atorvastatin 10 mg Tab RxNorm: 854087 1 Tablet(s) PO daily 12/21/2011 12/20/2011 Inactive atorvastatin 10 mg Tab RxNorm: 441912 1 Tablet(s) PO daily 12/21/2011 06/08/2012 Inactive methotrexate sodium 2.5 mg Tab RxNorm: 661983 Tablet(s) PO 11/16/2011 06/12/2012 Inactive 3 on tuesday3 on hydrochlorothiazide 25 mg Tab RxNorm: 357078 1/2 Tablet(s) PO BID 11/01/2011 11/24/2012 Inactive hydrochlorothiazide 12.5 mg Cap RxNorm: 278833 Capsule(s) PO 11/01/2011 06/08/2012 Inactive TAKE ONE TABLET BY MOUTH TWICE DAILY;Gen sky For:MICROZIDE 12.5 MG CAPSULE hydrochlorothiazide 25 mg Tab RxNorm: 537942 1/2 Tablet(s) PO BID 11/01/2011 11/24/2012 Inactive hydrochlorothiazide 25 mg tablet RxNorm: 093214 1/2 Tablet(s) PO BID 11/01/2011 10/31/2011 Inactive hydrochlorothiazide 25 mg Tab RxNorm: 330662 1/2 Tablet(s) PO BID 11/01/2011 10/31/2011 Inactive atenolol 25 mg tablet RxNorm: 863468 Tablet(s) PO 10/04/2011 10/01/2012 Inactive TAKE ONE TABLET BY MOUTH TWICE DAILY;Generic For:TENORMIN 25 MG TABLET hydrochlorothiazide 12.5 mg Cap RxNorm: 523687 1 Capsule(s) PO BID 09/13/2011 10/31/2011 Inactive Influenza Virus Vacc ine 0.5 mL RxNorm: IM 07/13/2011 07/13/2011 Inactive Pneumovax 23 25 mcg/ 0.5 mL Injection RxNorm: 797730 Milliliter(s) Inj 07/13/2011 07/13/2011 In active Cinnamon 1000 mg RxNorm: 2 PO daily No Start Date Active atenolol 25 mg Tab RxNorm: 057288 1 Tablet(s) PO BID No Start Date 10/03/2011 Inactive niacin ER 500 mg Cap RxNorm: 604517 1 Capsule(s) PO daily No Start Date 06/08/2012 Inactive gemfibrozil 600 mg t ablet RxNorm: 694070 1 Tablet(s) PO BID No Start Date 06/07/2012 Inactive Vitamin C 500 mg Tab RxNorm: 218451 1 Tablet(s) PO daily No Start Date 07/21/2016 Inactive Zithromax Z-Jeff 250 mg tablet RxNorm: 617814 1 Tablet(s) PO UD No Start Date 11/18/2016 Inactive z pack as directed doxazosin 1 mg tablet RxNorm: 667654 1 Tablet(s) PO BID No Start Date 12/01/2016 Inactive vitamin E (dl, aceta te) 400 unit Cap RxNorm: 956949 1 Capsule(s) PO daily No Start Date 07/21/2016 Inactive famotidine 40 mg tablet RxNorm: 394017 1 Tablet(s) PO QAM No Start Date 08/01/2016 Inactive Phenergan VC-Codeine 6.25 mg-5 mg-10 mg/5 mL syrup RxNorm: 282218 5 Milliliter(s) PO Q6 as needed No Start Date 12/31/2018 Inactive hydrochlorothiazide 25 mg Tab RxNorm: 104345 1/2 Tablet(s) PO BID No Start Date 09/12/2011 Inactive Tessalon Perles 100 mg capsule RxNorm: 400952 1 -2 Capsule(s) PO TI D as needed cough No Start Date 11/03/2016 Inactive aspirin 81 mg Tab, D elayed Release RxNorm: 710811 1 Tablet(s) PO every other day No Start Date 05/18/2016 Inactive Cinnamon 1000 mg RxNorm: 2 PO daily No Start Date 05/18/2016 Inactive clonidine HCl 0.1 mg tablet RxNorm: 024062 1 Tablet(s) PO QHS an d 1 Tablet as needed No Start Date 07/21/2016 Inactive [place] 3 Cap RxNorm: 1 Capsule(s) PO BID No Start Date 12/31/2018 Inactive niacin 500 mg tablet RxNorm: 450848 1 Tablet(s) PO QHS No Start Date 01/01/2015 Inactive multivitamin Tab RxNorm: 1 Tablet(s) PO daily No Start Date 07/21/2016 Inactive methotrexate sodium 2.5 mg Tab RxNorm: 185518 Tablet(s) PO No Start Date 11/15/2011 Inactive 3 on tuesday3 on T-Bio RxNorm: 1 PO daily No Start Date 05/18/2016 Inactive Vitamin D 2,000 unit Cap RxNorm: 1 Capsule(s) PO daily No Start Date 07/21/2016 Inactive hydrochlorothiazide 12.5 mg tablet RxNorm: 166068 1 Tablet(s) PO daily No Start Date 10/27/2017 Inactive Medication Administered Medication Codes Instruc tions Start Date Status Kenalog 40 mg/mL suspension for injection RxNorm: 0327405 Milliliter 01/01/2019 No longer Active Kenalog 40 mg/mL suspension for injection RxNorm: 6323127 1Milliliter 08/31/2018 N o longer Active Kenalog 40 mg/mL suspension for injection RxNorm: 0203283 Milliliter 11/05/2016 No longer Active Kenalog 40 mg/mL suspension for injection RxNorm: 3027025 1Milliliter 09/16/2014 N o longer Active ketorolac 60 mg/2 mL intramuscular solution RxNorm: 093166 2Milliliter 03/20/2014 N o longer Active Influenza Virus Vaccine 0.5 mL RxNorm: 07/13/2011 No longer Active Pneumovax 23 25 mcg/0.5 mL Injection RxNorm: 330478 Milliliter 07/13/2011 No longer Active Immunizations Vaccine [...] 02/03/2012 VITAMIN DEFICIENCY ICD-9: 269.2 11/04/2011 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 07/13/2011 Postprandial bloating ICD-9: 787.3 [...] Ord64 K 3.8 mEq/L 12/06/2016 Comp Metabolic Qlx525 NA 134 mEq/L 12/03/2016 Comp Metabolic Jws623 K Specimen 3+ Hemolyzed mEq/L 12/04/19 Comp Metabolic Lgx799 CL 106 mEq/L 12/03/2016 Comp Metabolic Vmy274 CO2 20.0 mEq/L 12/03/2016 Comp Metabolic Gwd794 AN ION GAP 16 12/03/2016 Comp Metabolic Wra278 GL UCOSE 93 mg/dL 12/03/2016 Comp Metabolic Xup427 Cr eat 0.8 mg/dL 12/03/2016 Comp Metabolic Bve367 eG FR 73 ml/min/1.73m2 12/03 Comp Metabolic Spg967 BUN 14 mg/dL 12/03/2016 Comp Metabolic Xhm498 B/ C Ratio 17.1 Ratio 12/03/2016 Comp Metabolic Dxy720 CA LCIUM 9.3 mg/dL 12/03/2016 Comp Metabolic Afp518 AL K PHOS 63 U/L 12/03/2016 Comp Metabolic Ruj495 T(SGOT) 69 U/L 12/03/2016 Comp Metabolic Mnd732 AL T(SGPT) 33 U/L 12/03/2016 Comp Metabolic Klk392 BI LI T 1.0 mg/dL 12/03/2016 Comp Metabolic Nkl424 AL BUMIN 4.3 g/dL 12/03/2016 Comp Metabolic Ocx843 TP RO 6.7 g/dL 12/03/2016 Comp Metabolic Ugx661 GL OB 2.4 g/dL 12/03/2016 Comp Metabolic Zri311 A/ G Ratio 1.7 Ratio 12/03/2016 Comp Metabolic Wpv606 Os mo 268 mOsmo 12/03/2016 Comp Metabolic Cbp819 NA 138 mEq/L 12/18/2015 Comp Metabolic Oyx607 K 4.1 mEq/L 12/18/2015 Comp Metabolic Rew346 CL 104 mEq/L 12/18/2015 Comp Metabolic Epc974 CO2 22.0 mEq/L 12/18/2015 Comp Metabolic Myl311 AN ION GAP 16 12/18/2015 Comp Metabolic Xys694 GL UCOSE 89 mg/dL 12/18/2015 Comp Metabolic Jax348 Cr eat 0.6 mg/dL 12/18/2015 Comp Metabolic Sid627 eG FR 99 ml/min/1.73m2 12/17 Comp Metabolic Cwl167 BUN 15 mg/dL 12/18/2015 Comp Metabolic Xof735 B/ C Ratio 23.8 Ratio 12/18/2015 Comp Metabolic Jrq219 CA LCIUM 10.4 mg/dL 12/18/2015 Comp Metabolic Vhm387 AL K PHOS 77 U/L 12/18/2015 Comp Metabolic Ogc454 T(SGOT) 19 U/L 12/18/2015 Comp Metabolic Knv113 AL T(SGPT) 17 U/L 12/18/2015 Comp Metabolic Ngs041 BI LI T 0.8 mg/dL 12/18/2015 Comp Metabolic Pte990 AL BUMIN 4.3 g/dL 12/18/2015 Comp Metabolic Qmn924 TP RO 6.7 g/dL 12/18/2015 Comp Metabolic Nwr216 GL OB 2.4 g/dL 12/18/2015 Comp Metabolic Vye787 A/ G Ratio 1.7 Ratio 12/18/2015 Comp Metabolic Oiy767 Os mo 276 mOsmo 12/18/2015 Cbc With [...] 29.5 pg 12/18/2015 Cbc With Differential Ord2 [place]% 9.4 % 12/18/2015 Cbc With Differential Ord2 [...] 2.57 K/ul 12/18/2015 Cbc With Differential Ord2 [place] ABS# 0.8 K/ul 12/18/2015 Cbc With Differential Ord2 Eos ABS# 0.1 K/ul 12/18/2015 Cbc With Differential Ord2 Baso ABS# 0.0 K/ul 12/18/2015 Cbc With Differential Ord2 New Analyzer Notice Please note new ref ranges s tarting 10-15-2015 due to implemntation of new five part differential hematolgy analyzer. 12/18/2015 Total T3 Ord42 TT3 1.0 ng/ml 07/10/2015 Free T4 Zzy250 FREE T4 0.90 ng/dL 07/09/2015 Free T3 Keb675 Free T3 2.92 pg/ml 07/09/2015 Tsh Ord6 hTSH II 1.18 uIU/mL 07/09/2015 URINALYSIS NONAUTO W/O SCOPE 65168 Specific [place] 1.005 DateTime(Free Text in ) URINALYSIS NONAUTO W/O SCOPE 30989 PH 6 DateTime(Free Text in ) URINALYSIS NONAUTO W/O SCOPE 21591 GLUCOSE neg DateTime(Free Dano t in ) URINALYSIS NONAUTO W/O SCOPE 14190 Protein neg DateTime(Free Dano t in ) URINALYSIS NONAUTO W/O SCOPE 40147 Blood neg DateTime(Free Dano t in ) URINALYSIS NONAUTO W/O SCOPE 41080 Bilirubin neg DateTime(Free Dano t in ) URINALYSIS NONAUTO W/O SCOPE 87786 Ketones neg DateTime(Free Dano t in ) URINALYSIS NONAUTO W/O SCOPE 03825 Urobilinogen neg DateTime(Free Text in ) URINALYSIS NONAUTO W/O SCOPE 59036 Nitrite neg DateTime(Free Dano t in ) URINALYSIS NONAUTO W/O SCOPE 20019 Leukocytes neg DateTime(Free Text in ) Review [...] clear 12/10/2013 None Full Exam - General 1995 Ears/Nose/Throat [...] Formatting Model/CDA Sections, Assigned to/Kimberley Fagan CPT-4: 56606Rvvplki 07/06/2018 ADMIN INFLUENZA VIRU S VAC CPT-4: G0008 07/05/2017 FLU VACC PRSV FREE I NC ANTIG CPT-4: 66578 07/05/2017 THER/PROPH/DIAG INJ SC/IM CPT-4: 89092 11/05/2016 TRIAMCINOLONE ACET I [place] NOS CPT-4: J3301 11/05/2016 TRIAMCINOLONE ACET I [place] NOS CPT-4: J3301 09/16/2014 DRAIN/INJECT JOINT/B URSA CPT-4: 15428 09/16/2014 KETOROLAC TROMETHAMI NE INJ CPT-4: J1885 03/20/2014 URINALYSIS NONAUTO W /O SCOPE CPT-4: 91973 12/10/2013 PRESCRIP TRANSMIT A ERX SY CPT-4: G8553 09/17/2013 PRESCRIP TRANSMIT A ERX SY CPT-4: G8553 06/08/2012 TRIAMCINOLONE ACET I [place] NOS CPT-4: J3301 03/16/2012 INJ TRIGGER POINT 1/ 2 MUSCL CPT-4: 72164 03/16/2012 PRESCRIP TRANSMIT A ERX SY CPT-4: G8553 03/16/2012 ADMIN INFLUENZA VIRU S VAC CPT-4: G0008 07/13/2011 FLULAVAL VACC, 3 YRS & >, IM CPT-4: Q2036 07/13/2011 ADMIN PNEUMOCOCCAL V ACCINE SNOMED CT: [id number] CPT-4: G0009 07/13/2011 Pneumococcal Polysac charide Vaccine, 23-Valent, Ad CPT-4: 19675 07/13/2011 Vital Signs Date Vital 01/08/2019 Blood Pressure 1: 128/70 Code: 8480-6 Heart Rate 1: 67 bpm SpO2: 97% 01/01/2019 Blood Pressure 1: 138/80 Code: 8480-6 BMI: 36.3 Code: 82259-0 Heart Rate 1: 64 bpm Height: 5'3" SpO2: 98% Weight: 205 lbs 12/18/2018 Blood Pressure 1: 120/62 Code: 8480-6 BMI: 36.0 Code: 03235-2 Heart Rate 1: 67 bpm Height: 5'3" SpO2: 97% Weight: 203 lbs 09/18/2018 Blood Pressure 1: 126/70 Code: 8480-6 BMI: 36.3 Code: 92023-0 Heart Rate 1: 58 bpm Height: 5'3" SpO2: 98% Weight: 205 lbs 08/31/2018 Blood Pressure 1: 148/76 Code: 8480-6 BMI: 37.0 Code: 15323-7 Heart Rate 1: 60 bpm Height: 5'3" SpO2: 98% Weight: 209 lbs 08/14/2018 Blood Pressure 1: 140/80 Code: 8480-6 BMI: 37.2 Code: 06829-1 Heart Rate 1: 76 bpm Height: 5'3" SpO2: 96% Weight: 210 lbs 05/22/2018 Blood Pressure 1: 150/62 Code: 8480-6 BMI: 36.7 Code: 01735-7 Heart Rate 1: 74 bpm Height: 5'3" SpO2: 98% Weight: 207 lbs 11/18/2017 Blood Pressure 1: 122/66 Code: 8480-6 BMI: 35.8 Code: 11192-7 Heart Rate 1: 59 bpm Height: 5'3" SpO2: 97% Weight: 202 lbs 08/03/2017 Blood Pressure 1: 122/60 Code: 8480-6 BMI: 36.0 Code: 39856-9 Heart Rate 1: 60 bpm Height: 5'3" SpO2: 97% Weight: 203 lbs 07/05/2017 Blood Pressure 1: 140/76 Code: 8480-6 BMI: 36.0 Code: 25497-4 Heart Rate 1: 58 bpm Height: 5'3" SpO2: 98% Weight: 203 lbs 12/02/2016 Blood Pressure 1: 122/70 Code: 8480-6 BMI: 34.4 Code: 88747-5 Heart Rate 1: 66 bpm Height: 5'3" SpO2: 99% Temperature: 36.4 (C ) / 97.5 (F) Weight: 194 lbs 11/22/2016 Blood Pressure 1: 102/60 Code: 8480-6 BMI: 34.2 Code: 06228-0 Heart Rate 1: 110 bpm Height: 5'3" SpO2: 98% Temperature: 36.7 (C ) / 98.0 (F) Weight: 193 lbs 11/05/2016 Blood Pressure 1: 140/62 Code: 8480-6 BMI: 36.1 Code: 45237-4 Heart Rate 1: 102 bpm Height: 5'3" SpO2: 97% Temperature: 37.1 (C ) / 98.7 (F) Weight: 204 lbs 07/22/2016 Blood Pressure 1: 158/80 Code: 8480-6 Blood Pressure 1: 160/76 Code: 8480-6 BMI: 36.8 Code: 61186-7 Heart Rate 1: 56 bpm Height: 5'3" SpO2: 98% Weight: 208 lbs 05/19/2016 Blood Pressure 1: 150/78 Code: 8480-6 Blood Pressure 1: 122/69 Code: 8480-6 BMI: 37.0 Code: 04264-2 Heart Rate 1: 61 bpm Height: 5'3" SpO2: 98% Weight: 209 lbs 02/13/2016 Blood Pressure 1: 140/76 Code: 8480-6 BMI: 36.8 Code: 97327-4 Heart Rate 1: 64 bpm Height: 5'3" SpO2: 97% Weight: 208 lbs 01/13/2016 Blood Pressure 1: 170/70 Code: 8480-6 BMI: 36.8 Code: 06096-4 Heart Rate 1: 65 bpm Height: 5'3" SpO2: 95% Weight: 208 lbs 01/02/2016 Blood Pressure 1: 150/88 Code: 8480-6 BMI: 36.8 Code: 69238-8 Heart Rate 1: 61 bpm Height: 5'3" SpO2: 98% Weight: 208 lbs 12/18/2015 Blood Pressure 1: 148/90 Code: 8480-6 BMI: 37.6 Code: 10313-1 Heart Rate 1: 64 bpm Height: 5'3" SpO2: 96% Weight: 212 lbs 09/08/2015 Blood Pressure 1: 130/88 Code: 8480-6 BMI: 37.0 Code: 54829-9 Heart Rate 1: 62 bpm Height: 5'3" SpO2: 97% Weight: 209 lbs 07/09/2015 Blood Pressure 1: 142/82 Code: 8480-6 BMI: 36.4 Code: 20732-8 Heart Rate 1: 66 bpm Height: 5'3" SpO2: 97% Weight: 205 lbs 5 oz 01/16/2015 Blood Pressure 1: 122/80 Code: 8480-6 BMI: 35.6 Code: 24030-8 Heart Rate 1: 67 bpm Height: 5'3" SpO2: 98% Weight: 201 lbs 01/03/2015 Blood Pressure 1: 122/70 Code: 8480-6 BMI: 35.6 Code: 90067-1 Heart Rate 1: 61 bpm Height: 5'3" Respiratory Rate: 16 bpm SpO2: 98% Weight: 201 lbs 09/16/2014 Blood Pressure 1: 132/78 Code: 8480-6 BMI: 34.9 Code: 89423-4 Heart Rate 1: 56 bpm Height: 5'3" Weight: 197 lbs 08/15/2014 Blood Pressure 1: 152/80 Code: 8480-6 Blood Pressure 2: 160/82 Code: 8480-6 BMI: 34.0 Code: 24338-9 Heart Rate 1: 75 bpm Height: 5'3" Weight: 192 lbs 06/12/2014 Blood Pressure 1: 136/82 Code: 8480-6 BMI: 34.9 Code: 58083-3 Heart Rate 1: 58 bpm Height: 5'3" SpO2: 96% Weight: 197 lbs 03/20/2014 Blood Pressure 1: 140/72 Code: 8480-6 BMI: 34.9 Code: 55645-6 Heart Rate 1: 60 bpm Height: 5'3" Weight: 197 lbs 12/10/2013 Blood Pressure 1: 132/78 Code: 8480-6 BMI: 35.1 Code: 52659-7 Heart Rate 1: 68 bpm Height: 5'3" Weight: 198 lbs 09/17/2013 Blood Pressure 1: 128/78 Code: 8480-6 BMI: 34.9 Code: 09420-8 Heart Rate 1: 68 bpm Height: 5'3" Weight: 197 lbs 05/21/2013 Blood Pressure 1: 128/82 Code: 8480-6 BMI: 35.6 Code: 66167-2 Heart Rate 1: 80 bpm Height: 5'3" Weight: 201 lbs 01/17/2013 Blood Pressure 1: 138/72 Code: 8480-6 BMI: 36.7 Code: 68760-7 Heart Rate 1: 60 bpm Height: 5'3" [...] 1: 140/78 Code: 8480-6 BMI: 40.0 Code: 01616-1 Heart Rate 1: 64 bpm Height: 5'3" Respiratory Rate: 16 bpm Weight: 226 lbs 11/04/2011 Blood Pressure 1: 136/76 Code: 8480-6 Heart Rate 1: 68 bpm Respiratory Rate: 16 bpm Weight: 226 lbs 07/13/2011 Blood Pressure 1: 142/80 Code: 8480-6 BMI: 40.0 Code: 06295-6 Heart Rate 1: 60 bpm Height: 5'4" [...] ago 03/16/2012 None shoulder pain Quality [facility] 03/16/2012 None shoulder pain Quality sh kate [...] Encounters Encounter Performer Loca tion Codes Date ) 87822 EST. P ATIENT, LEVEL II Diagnosis: Otalgia, right ear[ICD10: H92.01] Diagnosis: Other specified disorders of teeth and supporting structures[ICD10: K08.89] [facility] CPT-4: 38131 01/08/2019 [id number]) 03251 EST. P ATIENT, LEVEL III Diagnosis: Otalgia, right ear[ICD10: H92.01] [facility] CPT- 4: 99021 01/01/2019 [id number] 41514 EST. 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 P ATIENT, LEVEL III Diagnosis: Nasal congestion[ICD10: R09.81] Diagnosis: Other allergic rhinitis[ICD10: J30.89] Юлия Manuel MD, [facility] CPT-4: 10702 08/31/2018 ([id number]) 01811 EST. P ATIENT, LEVEL III Diagnosis: Acute recurrent maxillary sinusitis[ICD10: J01.01] [facility] CPT-4: 98904 08/14/2018 49143 EST. PATIENT, LEVEL III Diagnosis: Pain in right shoulder[ICD10: M25.511] Diagnosis: Pain in right arm[ICD10: M79.601] Willow [facility] CPT-4: 22819 05/22/2018 ([id number]) 16005 EST. 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 PATIENT, LEVEL III Diagnosis: Other specified intestinal infections[ICD10: A08.8] [facility] CPT-4: 78868 08/03/2017 ([id number]) 82624 EST. 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 P ATIENT, LEVEL III Diagnosis: Essential (primary) hypertension[ICD10: I10] Юлия Manuel MD, [facility] CPT-4: 35321 12/02/2016 ([id number]) 85799 EST. P ATIENT, LEVEL III Diagnosis: Essential (primary) hypertension[ICD10: I10] Diagnosis: Allergic rhinitis due to pollen[ICD10: J30.1] Giuliana Manuel MD, C CPT-4: 04720 11/22/2016 61509 EST. PATIENT, LEVEL III Diagnosis: Acute laryngopharyngitis[ICD10: J06.0] Diagnosis: Influenza due to unidentified influenza virus with other respiratory manifestations[ICD10: J11.1] Willow Manuel MD, [facility] CPT-4: 24910 11/05/2016 ([id number]) 48998 EST. P ATIENT, LEVEL III Diagnosis: Gastro-esophageal reflux disease without esophagitis[ICD10: K21.9] Diagnosis: Essential (primary) hypertension[ICD10: I10] Giuliana Manuel MD[facility] C CPT-4: 08852 07/22/2016 ([id number]) 10058 EST. P ATIENT, LEVEL IV Diagnosis: Essential (primary) hypertension[ICD10: I10] Diagnosis: Abdominal distension (gaseous)[ICD10: R14.0] Giuliana Manuel MD[facility] C CPT-4: 62813 05/19/2016 ([id number]) 55647 EST. P ATIENT, LEVEL III Diagnosis: Essential (primary) hypertension[ICD10: I10] Юлия Manuel MD, [facility] CPT-4: 95343 02/13/2016 ([id number]) 93921 EST. P ATIENT, LEVEL III Diagnosis: Essential (primary) hypertension[ICD10: I10] Юлия Manuel MD, [facility] CPT-4: 77485 01/13/2016 29005 EST. PATIENT, LEVEL IV Diagnosis: Essential (primary) hypertension[ICD10: I10] Diagnosis: Body mass index (BMI) 36.0-36.9, adult[ICD10: Z68.36] Willow Manuel MD, [facility] CPT-4: 93299 01/02/2016 ([id number]) 00826 EST. P ATIENT, LEVEL III Diagnosis: Essential (primary) hypertension[ICD10: I10] Юлия Manuel MD, [facility] CPT-4: 54218 12/18/2015 ([id number]) 46961 EST. P ATIENT, LEVEL IV Diagnosis: Essential (primary) hypertension[ICD10: I10] Diagnosis: Benign paroxysmal vertigo, bilateral[ICD10: H81.13] Diagnosis: Radiculopathy, cervical region[ICD10: M54.12] Giuliana Manuel MD, [facility] CPT-4: 71587 09/08/2015 ([id number]) 93860 EST. P ATIENT, LEVEL IV Diagnosis: Other specified nonscarring hair loss[ICD10: L65.8] Diagnosis: Myositis, unspecified[ICD10: M60.9] Diagnosis: Psoriasis, unspecified[ICD10: L40.9] Diagnosis: Essential (primary) hypertension[ICD10: I10] Giuliana Manuel MD, C CPT-4: 19064 07/09/2015 ([id number]) 28813 EST. P ATIENT, LEVEL III Diagnosis: ESSENTIAL HYPERTENSION[ICD9: 401.9] Giuliana Manuel MD, [facility] CPT- 4: 21730 01/16/2015 ([id number]) 73323 EST. P ATIENT, LEVEL III Diagnosis: Shoulder pain[ICD9: 719.41] Diagnosis: ESSENTIAL HYPERTENSION[ICD9: 401.9] Diagnosis: PALPITATIONS[ICD9: 785.1] Giuliana Manuel MD, [facility] CPT-4: 64145 01/03/2015 ([id number]) 40800 EST. P ATIENT, LEVEL III Diagnosis: Sacroiliitis[ICD9: 720.2] Diagnosis: Back pain[ICD9: 724.5] Diagnosis: ESSENTIAL HYPERTENSION[ICD9: 401.9] Giuliana Manuel MD [facility] CPT- 4: 59443 09/16/2014 ([id number]) 48633 EST. P ATIENT, LEVEL IV Diagnosis: ESSENTIAL HYPERTENSION[ICD9: 401.9] Diagnosis: Arrhythmia[ICD9: 427.9] Diagnosis: Nausea[ICD9: 787.02] Giuliana Manuel MD [facility] CPT-4: 13251 08/15/2014 ([id number]) 18331 EST. P ATIENT, LEVEL IV Diagnosis: ESSENTIAL HYPERTENSION[ICD9: 401.9] Diagnosis: Back pain[ICD9: 724.5] Diagnosis: Allergic reaction[ICD9: 995.3] Giuliana Manuel MD [facility] CPT-4: 56278 06/12/2014 ([id number]) 00248 EST. P ATIENT, LEVEL III Diagnosis: Thoracic back pain[ICD9: 724.1] Diagnosis: MYALGIA AND MYOSITIS[ICD9: 729.1] Giuliana Manuel MD [facility] CPT-4: 18328 03/20/2014 ([id number]) 27351 EST. P ATIENT, LEVEL IV Diagnosis: HYPERLIPIDEMIA[ICD9: 272.4] Diagnosis: ESSENTIAL HYPERTENSION[SNOMED: 78083405] Diagnosis: ABDOM PAIN NOS SITE[ICD9: 789.00] Giuliana Manuel MD [facility] CPT-4: 69690 12/10/2013 ([id number]) 01079 EST. P ATIENT, LEVEL IV Diagnosis: ESSENTIAL HYPERTENSION[SNOMED: 12995400] Diagnosis: HYPERLIPIDEMIA[ICD9: 272.4] Giuliana Manuel MD [facility] CPT-4: 47541 09/17/2013 ([id number]) 56257 EST. P ATIENT, LEVEL IV Diagnosis: ESSENTIAL HYPERTENSION[SNOMED: 40397994] Diagnosis: OBESITY[ICD9: 278.00] Diagnosis: Back pain[ICD9: 724.5] Giuliana Manuel MD [facility] CPT-4: 47116 05/21/2013 ([id number]) 24518 EST. P ATIENT, LEVEL IV Diagnosis: ESSENTIAL HYPERTENSION[SNOMED: 04306112] Diagnosis: HYPERLIPIDEMIA[ICD9: 272.4] Diagnosis: Abdominal pain[ICD9: 789.00] Diagnosis: BENIGN PAROXYSMAL VERTIGO[ICD9: 386.11] Giuliana Manuel MD, [facility] CPT-4: 49226 01/17/2013 ([id number]) 73517 EST. P ATIENT, LEVEL IV Diagnosis: ESSENTIAL HYPERTENSION[SNOMED: 54064626] Diagnosis: BENIGN PAROXYSMAL VERTIGO[ICD9: 386.11] Diagnosis: Hair loss[ICD9: 704.00] Diagnosis: Vitamin d deficiency[ICD9: 268.9] Diagnosis: Bleeding from the nose[ICD9: 784.7] Giuliana Manuel MD, [facility] CPT- 4: 58486 09/20/2012 87394 EST. PATIENT, LEVEL IV Diagnosis: BPPV (benign paroxysmal positional vertigo)[ICD9: 386.11] Diagnosis: HYPERLIPIDEMIA[ICD9: 272.4] Diagnosis: ESSENTIAL HYPERTENSION[SNOMED: 48334431] Giuliana Manuel MD, [facility] CPT-4: 91788 06/08/2012 ([id number]) 16600 EST. P ATIENT, LEVEL IV Diagnosis: BPPV (benign paroxysmal positional vertigo)[ICD9: 386.11] Diagnosis: Diverticulitis[ICD9: 562.11] Diagnosis: Abdominal pain[ICD9: 789.00] Giuliana Manuel MD, [facility] CPT-4: 06129 04/10/2012 ([id number]) 56706 EST. P ATIENT, LEVEL III Diagnosis: Neck pain[ICD9: 723.1] Diagnosis: Acute upper back pain[ICD9: 724.1] Giuliana Manuel MD, [facility] CPT- 4: 81395 03/16/2012 ([id number]) 52753 EST. P ATIENT, LEVEL IV Diagnosis: HYPERLIPIDEMIA[ICD9: 272.4] Diagnosis: ESSENTIAL HYPERTENSION[SNOMED: 32794806] Diagnosis: Constipation - functional[ICD9: 564.09] Giuliana Manuel MD, [facility] CPT-4: 20314 02/03/2012 ([id number] 61876 EST. P ATIENT, LEVEL IV Diagnosis: HYPERLIPIDEMIA[ICD9: 272.4] Diagnosis: VITAMIN DEFICIENCY[ICD9: 269.2] Diagnosis: ESSENTIAL HYPERTENSION[SNOMED: 81029944] Giuliana Manuel MD, [facility] CPT-4: 00498 11/04/2011 24123 EST. 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 01/08/2019 Appointment: Юлия Rojas WPtel: [address] [place] [address] (30 min) Complex 01/08/2019 Patient Education: Patient Medication Summary Completed 01/08/2019 Visit Plan: Right ear pain -concern for trigeminal neuralgia -she does have some sinus tenderness -will give kenalog injection today - continue anti histamine daily -monitor symptoms and call if persistent, worsen o r new symptoms develop. Patient verbalized understanding of plan. 01/01/2019 Appointment: Юлия Rojas WPtel: [phone] (30 min) Complex 01/01/2019 Patient Education: [...] improving. 12/18/2018 Appointment: Giuliana Manuel WPtel: [phone] [facility] (15 min) Moderate 12/18/2018 Patient Education: [...] back. 09/18/2018 Appointment: Giuliana Manuel WPtel: [phone] [facility] (15 min) Moderate 09/18/2018 Patient Education: [...] spray. 08/31/2018 Appointment: Юлия Rojas WPtel: [phone] [phone] [place] (15 min) Moderate 08/31/2018 Patient [...] not improve. 05/22/2018 Appointment: Willow Garcia WPtel: [address] [facility] [place] (15 min) Moderate 05/22/2018 Patient Education: [...] not improving. 11/18/2017 Appointment: Giuliana Manuel WPtel: [phone] [facility] [place] (15 min) Moderate 11/18/2017 Patient Education: Patient Medication Summary Completed 11/18/2017 Appointment: Giuliana Manuel WPtel: [phone] [facility] [place] (15 min) Moderate 11/07/2017 Visit [...] Willow Garcia WPtel: [facility] (30 min) Complex 08/03/2017 Patient Education: [...] daily. 07/05/2017 Appointment: Giuliana Manuel WPtel: [phone] [facility] (15 min) Moderate 07/05/2017 Patient Education: Patient Medication Summary Completed 07/05/2017 Patient Education: Obesity Completed 07/05/2017 Appointment: Giuliana Manuel WPtel: [facility] [place] (15 min) Moderate 06/27/2017 Appointment: Giuliana Manuel WPtel: [phone] [facility] [place] (15 min) Moderate 06/21/2017 Appointment: Юлия Rojas WPtel: [phone] [place] (30 min) Complex 12/23/2016 Visit [...] HCTZ 12/02/2016 Appointment: Юлия Rojas WPtel: [phone] (30 min) Complex 12/02/2016 Patient Education: [...] Manuel WPtel: [facility] (15 min) Moderate 11/22/2016 Patient Education: Patient Medication Summary Completed 11/22/2016 Patient Education: Obesity Completed 11/22/2016 Visit Plan: Influenza - pt started on tamiflu - pt to start on anti-inflammatories, tylenol and monitor symptoms. Pt to call if not improving. Pt to alert any close contacts as to illness. 11/05/2016 Appointment: Willow Garcia WPtel: [facility] (30 min) Complex 11/05/2016 Patient Education: [...] carafate 07/22/2016 Appointment: Giuliana Manuel WPtel: [facility] (15 min) Moderate 07/22/2016 Patient Education: Patient Medication Summary Completed 07/22/2016 Patient Education: Obesity Completed 07/22/2016 Care Plan: Referral Order SNOMED-CT : [id number] Pending 07/22/2016 Visit Plan: Hypertension - well [...] Completed 05/19/2016 Appointment: Giuliana Manuel WPtel: [facility] (15 min) Moderate 05/17/2016 Visit Plan: Hypertension - well con trolled - continue with current medications, continue with no added salt diet. Pt has been encouraged to exercise daily. The pt has been advised to call the office if there are any acute concerns about change in blood pressure readings at home. 02/13/2016 Appointment: Rojas Юлия [facility]Ptel[phone] (30 min) Complex 02/13/2016 Patient Education: [...] Manuel WPtel: [facility] (15 min) Moderate 12/08/2015 [facility]: [facility] Referral Completed 10/17/2015 Visit Plan: Hypertension - [...] Manuel WPtel: [facility] (15 min) Moderate 09/08/2015 Patient Education: Patient Medication Summary Completed 09/08/2015 Patient Education: .Cervicalgia Neck Pain Completed 09/08/2015 Care Plan: Referral Order SNOMED-CT : [id number] Ordered 09/08/2015 Visit Plan: Hypertension - uncontro [...] checked today. 07/09/2015 Appointment: Giuliana Manuel WPtel: [address] [place], [place] [phone] (15 min) Moderate 07/09/2015 Patient Education: Patient Medication Summary Completed 07/09/2015 Appointment: Giuliana Manuel WPtel: [address] [place], [place] [phone] (15 min) Moderate 07/07/2015 Appointment: Giuliana Manuel WPtel: [address] [place] [address] Follow up 03/17/2015 Visit Plan: Hypertension - well con trolled - continue with current medications, continue with no added salt diet. Pt has been encouraged to exercise daily. The pt has been advised to call the office if there are any acute concerns about change in blood pressure readings at home. Palpitations resolved. 01/16/2015 Appointment: Giuliana Manuel WPtel: [address] [place] [address] Other 01/16/2015 Patient Education: Patient Medication Summary [...] pain symptoms. 01/03/2015 Appointment: Giuliana Manuel WPtel: [address] [place], [place] [phone] Follow up 01/03/2015 Patient Education: Patient Medication [...] Hypertension Completed 09/16/2014 Appointment: Giuliana Manuel WPtel: [address] [place] [address] Follow up 09/09/2014 Visit Plan: Hypertension - [...] Manuel WPtel: [facility] Sick 08/15/2014 Patient Education: Patient Medication Summary Completed 08/15/2014 Patient Education: Hypertension Completed 08/15/2014 Care Plan: Referral Order SNOMED-CT : [id number] Ordered 08/15/2014 Appointment: Giuliana Manuel WPtel: [facility] Follow up 06/18/2014 Visit Plan: Back pain [facility]. Rash - reaction to [...] home. 06/12/2014 Appointment: Giuliana Manuel WPtel: [phone] [facility] [facility] 06/12/2014 Patient Education: Patient Medication Summary Completed 06/12/2014 Patient Education: Hypertension Completed 06/12/2014 Care Plan: Referral Order SNOMED-CT : [id number] Ordered 06/12/2014 Visit Plan: Hypertension - well [...] xrays. 03/20/2014 Appointment: Giuliana Manuel WPtel: [phone] [facility] Follow up 03/20/2014 Patient Education: Patient [...] UTI 12/10/2013 Appointment: Giuliana Manuel [facility]Ptel: [phone] Follow up 12/10/2013 Patient Education: Patient [...] weekly. 09/17/2013 Appointment: Giuliana Manuel WPtel: [phone] [facility] Follow up 09/17/2013 Patient Education: Patient [...] muscle rub. 05/21/2013 Appointment: Giuliana Manuel [facility]Ptel: [phone] [facility] Follow up 05/21/2013 Patient Education: Patient Medication [...] the vertigo. 01/17/2013 Appointment: Giuliana Manuel WPtel: [facility] Follow up 01/17/2013 Patient Education: Patient [...] needed. 09/20/2012 Appointment: Giuliana Manuel WPtel: [phone] [facility] Follow up 09/20/2012 Patient Education: Patient [...] intolerance begin. 06/08/2012 Appointment: Giuliana Manuel WPtel: [address] [place], [place] [phone] Follow up 06/08/2012 Patient Education: Patient Medication [...] or popcorn. 04/10/2012 Appointment: Giuliana Manuel WPtel: [address] [place], [place] [phone] [place] Other 04/10/2012 Patient Education: Patient Medication Summary [...] Tuesday. 03/16/2012 Appointment: Giuliana Manuel WPtel: [facility] Other 03/16/2012 Patient Education: Patient Medication Summary Completed 03/16/2012 Visit Plan: Hypertension - well zoe de [...] this regimen. 02/03/2012 Appointment: Giuliana Manuel WPtel: [facility] Other 02/03/2012 Patient Education: Patient Medication [...] Manuel WPtel: [facility] Follow up 11/04/2011 Patient Education: Patient [...] She will monitor her intake. Allergies - [facility] for the headaches to see ifnallergy medication helps to prevent the headaches flu shot pneumonia shot 07/13/2011 Appointment: Giuliana Manuel WPtel: [facility] [place] Other 07/13/2011 Patient Education: Patient Medication Summary Completed 07/13/2011 Patient Education: .Gage Wilder tic meal planning guide Completed 07/13/2011 Referral: Jared Lafleur [address] [facility] [id number] [place] Referral Appointment Requested Referral: Duarte Catalan Referral Appointment Requested Referral: Dr. Willams WPtel: [address] [facility] [place] Referral Initiated Referral: [facility] WPtel: [address] [facility] [place] Referral Initiated Instructions Comment . [...] TSH and consider treatment if needed. . Neck pain- start p hysical therapy and MRI OF CERVICAL SPINE The pt is to use prn antiinflammatories to manage acute pain. The patient is to call the office if the pain is worsening or does not improve. Diverticulitis - pt started on a liquid diet, and given RX for flagyl and cipro. No seeds, nuts, or popcorn. KENALOG CONTINUE BENADRYL AT BEDTIME . Right ear pain -concern for trigeminal neuralgia -she does have some sinus tenderness -will give kenalog injection today -continue anti histamine daily - monitor symptoms and call if persistent, worsen or new symptoms develop. Patient verbalized understanding of plan. . Right earache -karl pect trigeminal neuralgia- recommend patient have a dental eval to also check tooth that is bothering her on the right upper jaw -discussed treating trigeminal neuralgia if tooth is okay but instructed her to call if symptoms worsen -patient verbalized understanding of plan. . Hypertension - we ll controlled - [...] deficiency - continue with vitamin D daily. apply the voltaren g el to both [...] She will monitor her intake. Allergies - [facility] for the headaches to see ifnallergy medication helps to prevent the headaches flu shot pneumonia shot hold clonidine x 3 d ays then [...] mucinex 600mg twice daily x 7 days bland diet, low fat diet, start on [...] TWICE DAILY-CHECK POTASSIUM LEVEL-OKAY TO RESTART HCTZ hold the omega 3 fis h oil [...] office if the symptoms are not improving. ibuprofen 2 pills 3 times a day [...] the atorvastatin and start three times weekly. Continue with atenol ol and HCTZ, Start [...] Back pain - referr al to [facility] physical therapy. Rash - reaction to [...] not improving. Pt to start on carafate increase Atenolol to 1.5 tabs twice daily [...] tylenol for break through pain symptoms. . Sinusitis - Pt has acute infection [...] in 2 weeks for weight check. . BPPV - Benign Paro xysmal Positional [...]
--- OUTSIDE RECORDS SUMMARY | 2020-01-21 14:08 | XMS REPORT | CCD ---
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 09/08/2015 Marital status Unknown M arried 07/13/[address]: 204967926 Nonsmoker 07/13/[address]: 670240030 Never drinks alcohol 07/13/2011 Allergies, Adverse Reactions, Alerts Substance Reaction Codes Entered Date Inactivated Date Status Soy Unknown 07/13/2011 No Inactive Date Active Cardizem RxNorm: 209461 05/19/2016 No Inactive Date Active Metoprolol Succinate [...] pain ICD-9: 789.00 Active 07/13/2011 Unknown 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 Active 07/13/2011 Unknown OBESITY ICD-9: [...] Abdominal pain ICD-9: 789.00 07/13/2011 Active 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 07/13/2011 Active OBESITY ICD-9: 278.00 07/13/2011 Active Postprandial bloating ICD-9: 787.3 07/13/2011 Active Seasonal allergies ICD- 9: 477.9 07/13/2011 Active VAC STREP PNEUMONIAE -FLU ICD-9: V06.6 07/13/2011 Active Medications Medication Codes Instruc tions Start Date Stop Date Sta tus Fill Instructions Kenalog 40 mg/mL karl pension for injection RxNorm: 6867696 Milliliter(s) Inj 01/01/2019 01/01/2019 In active losartan 25 mg tablet RxNorm: 950004 1 Tablet(s) PO BID 11/01/2018 10/26/2019 Active losartan 25 mg tablet RxNorm: 698002 1 Tablet(s) PO BID 11/01/2018 10/31/2018 Inactive hydrochlorothiazide 12.5 mg tablet RxNorm: 778999 TAKE 1 TABLET BY MOUT H EVERY DAY 10/02/2018 03/30/2019 Ac tive - First Attempt Ref: [id number] famotidine 40 mg tablet RxNorm: 100116 TAKE 1 TABLET BY MOUTH EVERY MORNING 10/02/2018 03/30/2019 Ac tive - First Attempt Ref: [id number] doxazosin 1 mg tablet RxNorm: 481053 [facility] 10/02/2018 03/30/2019 Ac tive - First Attempt Ref: [id number] naproxen 500 mg tablet RxNorm: 445021 1 Tablet(s) PO BID 09/18/2018 09/24/2018 Inactive diclofenac 1 % topic al gel RxNorm: 265672 2 Application TOP QID 09/18/2018 11/16/2018 Inactive Kenalog 40 mg/mL karl pension for injection RxNorm: 5901660 1 Milliliter(s) Inj 08/31/2018 08/31/2018 In active clonidine HCl 0.1 mg tablet RxNorm: 312121 1/2 Tablet(s) PO BID 08/16/2018 08/10/2019 Active amoxicillin 500 mg t ablet RxNorm: 449871 1 Tablet(s) PO TID 08/14/2018 08/20/2018 Inactive losartan 25 mg tablet RxNorm: 558397 1 Tablet(s) PO BID 05/02/2018 05/01/2018 Inactive losartan 25 mg tablet RxNorm: 458739 1 Tablet(s) PO BID 05/02/2018 10/31/2018 Inactive losartan 25 mg tablet RxNorm: 612772 1 Tablet(s) PO BID 01/30/2018 05/01/2018 Inactive Vitamin D 2,000 unit capsule RxNorm: 1 Capsule(s) PO daily 11/18/2017 No Stop Date Active atenolol 25 mg tablet RxNorm: 317786 1 Tablet(s) PO daily 11/18/2017 11/12/2018 Inactive atenolol 25 mg tablet RxNorm: 897975 1 Tablet(s) PO BID managed by Dr Lafleur 11/18/2017 11/17/2017 In active clonidine HCl 0.1 mg tablet RxNorm: 758463 1/2 Tablet(s) PO BID 11/18/2017 08/15/2018 Inactive doxazosin 1 mg tablet RxNorm: 012710 1 Tablet(s) PO daily at midnight 11/18/2017 10/01/2018 In active midnight losartan 25 mg tablet RxNorm: 040392 1 Tablet(s) PO BID 11/18/2017 01/29/2018 Inactive hydrochlorothiazide 12.5 mg tablet RxNorm: 351980 1 Tablet(s) PO daily 11/18/2017 10/01/2018 In active famotidine 40 mg tablet RxNorm: 344422 1 Tablet(s) PO daily TAKE 1 TABLET BY MO UTH EVERY MORNING 11/18/2017 10/01/2018 Inactive - Ref: [id number] hydrochlorothiazide 12.5 mg tablet RxNorm: 766902 1 Tablet(s) PO daily 10/28/2017 11/17/2017 In active famotidine 40 mg tablet RxNorm: 584678 TAKE 1 TABLET BY MOUTH EVERY MORNING 10/04/2017 11/17/2017 In active - Ref: [id number] clonidine HCl 0.1 mg tablet RxNorm: 823565 1/2 Tablet(s) PO BID 07/05/2017 11/17/2017 Inactive doxazosin 1 mg tablet RxNorm: 791009 1 Tablet(s) PO daily at midnight 07/05/2017 11/17/2017 In active midnight doxazosin 1 mg tablet RxNorm: 757431 1 Tablet(s) PO BID 12/02/2016 2017 Inactive midnight prednisone 20 mg tablet RxNorm: 090557 3 Tablet(s) PO daily 11/22/2016 11/26/2016 Inactive Tessalon Perles 100 mg capsule RxNorm: 904811 1 -2 Capsule(s) PO TI D as needed cough 11/19/2016 12/31/2018 Inactive Zithromax Z-Jeff 250 mg tablet RxNorm: 498576 1 Tablet(s) PO UD 11/19/2016 12/01/2016 Inactive z pack as directed Tamiflu 75 mg capsule RxNorm: 812911 1 Capsule(s) PO BID 11/05/2016 11/09/2016 Inactive Kenalog 40 mg/mL karl pension for injection RxNorm: 1808207 Milliliter(s) Inj 11/05/2016 11/05/2016 In active Tessalon Perles 100 mg capsule RxNorm: 934689 1 -2 Capsule(s) PO TI D as needed cough 11/04/2016 11/18/2016 Inactive famotidine 40 mg tablet RxNorm: 803433 1 Tablet(s) PO QAM 10/25/2016 10/03/2017 Inactive famotidine 40 mg tablet RxNorm: 760896 1 Tablet(s) PO QAM 08/02/2016 10/24/2016 Inactive Carafate 1 gram tablet RxNorm: 132325 1 Tablet(s) PO TID DISSOLVE THE PILL IN 10ML OF WATER 07/22/2016 10/19/2016 Inactive clonidine HCl 0.1 mg tablet RxNorm: 065422 1 Tablet(s) PO BID an d 1 tablet as needed 07/22/2016 12/01/2016 Inactive Cinnamon 1000 mg RxNorm: 1 PO daily 05/19/2016 No Stop Date Active aspirin 81 mg tablet ,delayed release RxNorm: 848598 1 Tablet(s) PO QHS 05/19/2016 11/27/2018 In active losartan 25 mg tablet RxNorm: 136157 1 Tablet(s) PO BID 05/19/2016 11/17/2017 Inactive atenolol 25 mg tablet RxNorm: 891775 1.5 Tablet(s) PO BID 02/13/2016 07/21/2016 Inactive losartan 25 mg tablet RxNorm: 761618 2 Tablet(s) PO BID 01/13/2016 05/11/2016 Inactive Cardizem CD 240 mg c apsule,extended release RxNorm: 043467 1 Capsule(s) PO daily 01/13/2016 02/12/2016 In active losartan 100 mg tablet RxNorm: 505726 1/2 Tablet(s) PO BID 01/08/2016 01/12/2016 Inactive losartan 25 mg tablet RxNorm: 794601 2 Tablet(s) PO QPM 1 Tablet(s) PO QPM 12/18/2015 01/07/2016 In active atenolol 25 mg tablet RxNorm: 218322 1.5 Tablet(s) PO BID TAKE ONE TABLET BY MOUTH TWICE A DAY 12/18/2015 01/12/2016 Inactive atenolol 25 mg tablet RxNorm: 013898 Tablet(s) TAKE ONE TABLET BY MOUTH TWICE A DAY 11/14/2015 12/17/2015 Inactive losartan 25 mg tablet RxNorm: 830107 Tablet(s) 1 Tablet(s) PO QPM 11/14/2015 12/17/2015 Inactive spironolactone 25 mg tablet RxNorm: 363376 1 Tablet(s) PO daily 11/14/2015 12/14/2015 Inactive atenolol 25 mg tablet RxNorm: 947371 TAKE ONE TABLET BY MOUTH TWICE A DAY 08/07/2015 11/13/2015 In active atenolol 25 mg tablet RxNorm: 382503 1 Tablet(s) PO daily TAKE ONE TABLET BY MOUTH TWICE DAILY 08/06/2015 08/06/2015 Inactive Generic For:TENORMIN 25 MG TABLET 05/05/2015 10:00:22 AM atenolol 25 mg tablet RxNorm: 685450 1 Tablet(s) PO daily TAKE ONE TABLET BY MOUTH TWICE DAILY 08/06/2015 08/05/2015 Inactive Generic For:TENORMIN 25 MG TABLET 05/05/2015 10:00:22 AM betamethasone diprop ionate 0.05 % topical ointment RxNorm: 862496 1 TOP TID as needed rash 07/09/2015 05/18/2016 Inactive betamethasone diprop ionate 0.05 % topical ointment RxNorm: 634446 1 TOP TID as needed rash 07/09/2015 07/08/2015 Inactive spironolactone 25 mg tablet RxNorm: 102068 1 Tablet(s) PO daily 07/09/2015 07/08/2015 Inactive spironolactone 25 mg tablet RxNorm: 728134 1 Tablet(s) PO daily 07/09/2015 11/13/2015 Inactive losartan 25 mg tablet RxNorm: 537167 Tablet(s) 1 Tablet(s) PO QPM 05/27/2015 11/13/2015 Inactive atenolol 25 mg tablet RxNorm: 317743 TAKE ONE TABLET BY MOUTH TWICE DAILY 05/05/2015 08/05/2015 In active Generic For:TENORMIN 25 MG TABLET 05/05 10:00:22 AM hydrochlorothiazide 25 mg tablet RxNorm: 697690 1/2 Tablet(s) PO BID 02/17/2015 07/08/2015 Inactive Generic For:HYDRODIURIL 25 MG TABLET sulfamethoxazole 800 mg-trimethoprim 160 mg tablet RxNorm: 577355 1 Tablet(s) PO BID 01/16/2015 01/25/2015 Inactive losartan 25 mg tablet RxNorm: 232620 1 Tablet(s) PO QPM 12/09/2014 05/26/2015 Inactive Kenalog 40 mg/mL karl pension for injection RxNorm: 6514779 1 Milliliter(s) Inj 09/16/2014 09/16/2014 In active prednisone 20 mg tablet RxNorm: 338277 3 Tablet(s) PO daily 09/16/2014 09/18/2014 Inactive losartan 25 mg tablet RxNorm: 782737 1 Tablet(s) PO QPM 08/15/2014 12/08/2014 Inactive hydrochlorothiazide 25 mg tablet RxNorm: 988843 TAKE 1/2 TABLET BY MO UTH TWICE DAILY 08/13/2014 02/08/2015 Inactive Generic For:HYDRODIURIL 25 MG TABLET atenolol 25 mg tablet RxNorm: 009947 TAKE ONE TABLET BY MOUTH TWICE DAILY 05/07/2014 05/01/2015 In active Generic For:TENORMIN 25 MG TABLET ketorolac 60 mg/2 mL intramuscular solution RxNorm: 254267 2 Milliliter(s) IM 03/20/2014 03/20/2014 In active hydrochlorothiazide 25 mg tablet RxNorm: 574276 Tablet(s) PO TAKE 1/2 TABLET BY MOUTH TWICE DAILY 02/14/2014 08/12/2014 Inactive Generic For:HYDRODIURIL 25 MG TABLET Generic For:HYDRODIURIL 25 MG TABLET 02/14/2014 3:45:03 PM atorvastatin 10 mg t ablet RxNorm: 464724 1 Tablet(s) PO TIW 09/17/2013 03/19/2014 Inactive atorvastatin 10 mg t ablet RxNorm: 526987 tablet oral 09/17/2013 06/04/2015 Inactive hydrochlorothiazide 25 mg tablet RxNorm: 716279 Tablet(s) PO TAKE 1/2 TABLET BY MOUTH TWICE DAILY 08/06/2013 02/13/2014 Inactive Generic For:HYDRODIURIL 25 MG TABLET Generic For:HYDRODIURIL 25 MG TABLET 08/06/2013 1:52:35 PM amoxicillin 500 mg t ablet RxNorm: 121497 2 Tablet(s) PO 2 tabl ets PO 1 hour before dental procedure. 07/26/2013 07/25/2013 Inactive amoxicillin 500 mg t ablet RxNorm: 261536 2 Tablet(s) PO 2 tabl ets PO 1 hour before dental procedure. 07/26/2013 07/26/2013 Inactive methotrexate sodium 2.5 mg tablet RxNorm: 594597 tablet oral 07/13/2013 01/15/2015 Inactive atenolol 25 mg tablet RxNorm: 131698 Tablet(s) PO TAKE ONE TABLET BY MOUTH TW ICE DAILY 05/01/2013 05/06/2014 Inactive Generic For:TENORMIN 25 MG TABLET hydrochlorothiazide 25 mg tablet RxNorm: 999528 Tablet(s) PO TAKE 1/2 TABLET BY MOUTH TWICE DAILY 11/21/2012 08/05/2013 Inactive Generic For:HYDRODIURIL 25 MG TABLET atenolol 25 mg tablet RxNorm: 340156 Tablet(s) PO TAKE ONE TABLET BY MOUTH TW ICE DAILY 10/02/2012 04/30/2013 Inactive Generic For:TENORMIN 25 MG TABLET gemfibrozil 600 mg t ablet RxNorm: 856553 1 Tablet(s) PO BID 06/08/2012 10/08/2012 Inactive meclizine 25 mg tablet RxNorm: 5253009 1 Tablet(s) PO Q4 PRN 06/08/2012 09/05/2012 Inactive prednisone 10 mg Tab RxNorm: 518930 2 Tablet(s) PO daily 03/16/2012 03/20/2012 Inactive atorvastatin 10 mg Tab RxNorm: 425241 1 Tablet(s) PO daily 12/21/2011 12/20/2011 Inactive atorvastatin 10 mg Tab RxNorm: 678882 1 Tablet(s) PO daily 12/21/2011 06/08/2012 Inactive methotrexate sodium 2.5 mg Tab RxNorm: 508230 Tablet(s) PO 11/16/2011 06/12/2012 Inactive 3 on tuesday3 on hydrochlorothiazide 25 mg Tab RxNorm: 712430 1/2 Tablet(s) PO BID 11/01/2011 11/24/2012 Inactive hydrochlorothiazide 12.5 mg Cap RxNorm: 636790 Capsule(s) PO 11/01/2011 06/08/2012 Inactive TAKE ONE TABLET BY MOUTH TWICE DAILY;Gen sky For:MICROZIDE 12.5 MG CAPSULE hydrochlorothiazide 25 mg Tab RxNorm: 510480 1/2 Tablet(s) PO BID 11/01/2011 11/24/2012 Inactive hydrochlorothiazide 25 mg tablet RxNorm: 347079 1/2 Tablet(s) PO BID 11/01/2011 10/31/2011 Inactive hydrochlorothiazide 25 mg Tab RxNorm: 294362 1/2 Tablet(s) PO BID 11/01/2011 10/31/2011 Inactive atenolol 25 mg tablet RxNorm: 979643 Tablet(s) PO 10/04/2011 10/01/2012 Inactive TAKE ONE TABLET BY MOUTH TWICE DAILY;Generic For:TENORMIN 25 MG TABLET hydrochlorothiazide 12.5 mg Cap RxNorm: 811183 1 Capsule(s) PO BID 09/13/2011 10/31/2011 Inactive Influenza Virus Vacc ine 0.5 mL RxNorm: IM 07/13/2011 07/13/2011 Inactive Pneumovax 23 25 mcg/ 0.5 mL Injection RxNorm: 216521 Milliliter(s) Inj 07/13/2011 07/13/2011 In active Cinnamon 1000 mg RxNorm: 2 PO daily No Start Date Active atenolol 25 mg Tab RxNorm: 334386 1 Tablet(s) PO BID No Start Date 10/03/2011 Inactive niacin ER 500 mg Cap RxNorm: 832351 1 Capsule(s) PO daily No Start Date 06/08/2012 Inactive gemfibrozil 600 mg t ablet RxNorm: 553604 1 Tablet(s) PO BID No Start Date 06/07/2012 Inactive Vitamin C 500 mg Tab RxNorm: 184688 1 Tablet(s) PO daily No Start Date 07/21/2016 Inactive Zithromax Z-Jeff 250 mg tablet RxNorm: 192592 1 Tablet(s) PO UD No Start Date 11/18/2016 Inactive z pack as directed doxazosin 1 mg tablet RxNorm: 723124 1 Tablet(s) PO BID No Start Date 12/01/2016 Inactive vitamin E (dl, aceta te) 400 unit Cap RxNorm: 568306 1 Capsule(s) PO daily No Start Date 07/21/2016 Inactive famotidine 40 mg tablet RxNorm: 402362 1 Tablet(s) PO QAM No Start Date 08/01/2016 Inactive Phenergan VC-Codeine 6.25 mg-5 mg-10 mg/5 mL syrup RxNorm: 378141 5 Milliliter(s) PO Q6 as needed No Start Date 12/31/2018 Inactive hydrochlorothiazide 25 mg Tab RxNorm: 539249 1/2 Tablet(s) PO BID No Start Date 09/12/2011 Inactive Tessalon Perles 100 mg capsule RxNorm: 703577 1 -2 Capsule(s) PO TI D as needed cough No Start Date 11/03/2016 Inactive aspirin 81 mg Tab, D elayed Release RxNorm: 143980 1 Tablet(s) PO every other day No Start Date 05/18/2016 Inactive Cinnamon 1000 mg RxNorm: 2 PO daily No Start Date 05/18/2016 Inactive clonidine HCl 0.1 mg tablet RxNorm: 708714 1 Tablet(s) PO QHS an d 1 Tablet as needed No Start Date 07/21/2016 Inactive [place] 3 Cap RxNorm: 1 Capsule(s) PO BID No Start Date 12/31/2018 Inactive niacin 500 mg tablet RxNorm: 770478 1 Tablet(s) PO QHS No Start Date 01/01/2015 Inactive multivitamin Tab RxNorm: 1 Tablet(s) PO daily No Start Date 07/21/2016 Inactive methotrexate sodium 2.5 mg Tab RxNorm: 823662 Tablet(s) PO No Start Date 11/15/2011 Inactive 3 on tuesday3 on T-Bio RxNorm: 1 PO daily No Start Date 05/18/2016 Inactive Vitamin D 2,000 unit Cap RxNorm: 1 Capsule(s) PO daily No Start Date 07/21/2016 Inactive hydrochlorothiazide 12.5 mg tablet RxNorm: 538214 1 Tablet(s) PO daily No Start Date 10/27/2017 Inactive Medication Administered Medication Codes Instruc tions Start Date Status Kenalog 40 mg/mL suspension for injection RxNorm: 4330423 Milliliter 01/01/2019 No longer Active Kenalog 40 mg/mL suspension for injection RxNorm: 6914848 1Milliliter 08/31/2018 N o longer Active Kenalog 40 mg/mL suspension for injection RxNorm: 5906849 Milliliter 11/05/2016 No longer Active Kenalog 40 mg/mL suspension for injection RxNorm: 9647371 1Milliliter 09/16/2014 N o longer Active ketorolac 60 mg/2 mL intramuscular solution RxNorm: 736061 2Milliliter 03/20/2014 N o longer Active Influenza Virus Vaccine 0.5 mL RxNorm: 07/13/2011 No longer Active Pneumovax 23 25 mcg/0.5 mL Injection RxNorm: 175501 Milliliter 07/13/2011 No longer Active Immunizations Vaccine [...] 02/03/2012 VITAMIN DEFICIENCY ICD-9: 269.2 11/04/2011 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 07/13/2011 Postprandial bloating ICD-9: 787.3 [...] Ord64 K 3.8 mEq/L 12/06/2016 Comp Metabolic Aur238 NA 134 mEq/L 12/03/2016 Comp Metabolic Ipa220 K Specimen 3+ Hemolyzed mEq/L 12/04/19 Comp Metabolic Pxp144 CL 106 mEq/L 12/03/2016 Comp Metabolic Rfu545 CO2 20.0 mEq/L 12/03/2016 Comp Metabolic Zxt171 AN ION GAP 16 12/03/2016 Comp Metabolic Msj530 GL UCOSE 93 mg/dL 12/03/2016 Comp Metabolic Kzb803 Cr eat 0.8 mg/dL 12/03/2016 Comp Metabolic Ttr469 eG FR 73 ml/min/1.73m2 12/03 Comp Metabolic Rsk987 BUN 14 mg/dL 12/03/2016 Comp Metabolic Cnt041 B/ C Ratio 17.1 Ratio 12/03/2016 Comp Metabolic Nvp027 CA LCIUM 9.3 mg/dL 12/03/2016 Comp Metabolic Hvd330 AL K PHOS 63 U/L 12/03/2016 Comp Metabolic Wua605 T(SGOT) 69 U/L 12/03/2016 Comp Metabolic Wmg574 AL T(SGPT) 33 U/L 12/03/2016 Comp Metabolic Jth486 BI LI T 1.0 mg/dL 12/03/2016 Comp Metabolic Vww995 AL BUMIN 4.3 g/dL 12/03/2016 Comp Metabolic Wqh162 TP RO 6.7 g/dL 12/03/2016 Comp Metabolic Yow082 GL OB 2.4 g/dL 12/03/2016 Comp Metabolic Oam603 A/ G Ratio 1.7 Ratio 12/03/2016 Comp Metabolic Tad683 Os mo 268 mOsmo 12/03/2016 Comp Metabolic Drl129 NA 138 mEq/L 12/18/2015 Comp Metabolic Rxh495 K 4.1 mEq/L 12/18/2015 Comp Metabolic Xns875 CL 104 mEq/L 12/18/2015 Comp Metabolic Tos788 CO2 22.0 mEq/L 12/18/2015 Comp Metabolic Eaf929 AN ION GAP 16 12/18/2015 Comp Metabolic Cur572 GL UCOSE 89 mg/dL 12/18/2015 Comp Metabolic Hhv704 Cr eat 0.6 mg/dL 12/18/2015 Comp Metabolic Lip628 eG FR 99 ml/min/1.73m2 12/17 Comp Metabolic Xyp580 BUN 15 mg/dL 12/18/2015 Comp Metabolic Xtp820 B/ C Ratio 23.8 Ratio 12/18/2015 Comp Metabolic Teb953 CA LCIUM 10.4 mg/dL 12/18/2015 Comp Metabolic Wbn922 AL K PHOS 77 U/L 12/18/2015 Comp Metabolic Tvt217 T(SGOT) 19 U/L 12/18/2015 Comp Metabolic Was600 AL T(SGPT) 17 U/L 12/18/2015 Comp Metabolic Wxo811 BI LI T 0.8 mg/dL 12/18/2015 Comp Metabolic Ykd039 AL BUMIN 4.3 g/dL 12/18/2015 Comp Metabolic Jxd339 TP RO 6.7 g/dL 12/18/2015 Comp Metabolic Hpx612 GL OB 2.4 g/dL 12/18/2015 Comp Metabolic Kup826 A/ G Ratio 1.7 Ratio 12/18/2015 Comp Metabolic Wej882 Os mo 276 mOsmo 12/18/2015 Cbc With [...] 29.5 pg 12/18/2015 Cbc With Differential Ord2 [place]% 9.4 % 12/18/2015 Cbc With Differential Ord2 [...] 2.57 K/ul 12/18/2015 Cbc With Differential Ord2 [place] ABS# 0.8 K/ul 12/18/2015 Cbc With Differential Ord2 Eos ABS# 0.1 K/ul 12/18/2015 Cbc With Differential Ord2 Baso ABS# 0.0 K/ul 12/18/2015 Cbc With Differential Ord2 New Analyzer Notice Please note new ref ranges s tarting 10-15-2015 due to implemntation of new five part differential hematolgy analyzer. 12/18/2015 Total T3 Ord42 TT3 1.0 ng/ml 07/10/2015 Free T4 Skz198 FREE T4 0.90 ng/dL 07/09/2015 Free T3 Ufm609 Free T3 2.92 pg/ml 07/09/2015 Tsh Ord6 hTSH II 1.18 uIU/mL 07/09/2015 URINALYSIS NONAUTO W/O SCOPE 26059 Specific [place] 1.005 DateTime(Free Text in ) URINALYSIS NONAUTO W/O SCOPE 99021 PH 6 DateTime(Free Text in ) URINALYSIS NONAUTO W/O SCOPE 47034 GLUCOSE neg DateTime(Free Dano t in ) URINALYSIS NONAUTO W/O SCOPE 14506 Protein neg DateTime(Free Dano t in ) URINALYSIS NONAUTO W/O SCOPE 24483 Blood neg DateTime(Free Dano t in ) URINALYSIS NONAUTO W/O SCOPE 60639 Bilirubin neg DateTime(Free Dano t in ) URINALYSIS NONAUTO W/O SCOPE 35217 Ketones neg DateTime(Free Dano t in ) URINALYSIS NONAUTO W/O SCOPE 03661 Urobilinogen neg DateTime(Free Text in ) URINALYSIS NONAUTO W/O SCOPE 82213 Nitrite neg DateTime(Free Dano t in ) URINALYSIS NONAUTO W/O SCOPE 27329 Leukocytes neg DateTime(Free Text in ) Review [...] Formatting Model/CDA Sections, Assigned to/Kimberley Fagan CPT-4: 42309Ejswwyt 07/06/2018 ADMIN INFLUENZA VIRU S VAC CPT-4: G0008 07/05/2017 FLU VACC PRSV FREE I NC ANTIG CPT-4: 38619 07/05/2017 THER/PROPH/DIAG INJ SC/IM CPT-4: 81919 11/05/2016 TRIAMCINOLONE ACET I [place] NOS CPT-4: J3301 11/05/2016 TRIAMCINOLONE ACET I [place] NOS CPT-4: J3301 09/16/2014 DRAIN/INJECT JOINT/B URSA CPT-4: 52105 09/16/2014 KETOROLAC TROMETHAMI NE INJ CPT-4: J1885 03/20/2014 URINALYSIS NONAUTO W /O SCOPE CPT-4: 02971 12/10/2013 PRESCRIP TRANSMIT A ERX SY CPT-4: G8553 09/17/2013 PRESCRIP TRANSMIT A ERX SY CPT-4: G8553 06/08/2012 TRIAMCINOLONE ACET I [place] NOS CPT-4: J3301 03/16/2012 INJ TRIGGER POINT 1/ 2 MUSCL CPT-4: 57789 03/16/2012 PRESCRIP TRANSMIT A ERX SY CPT-4: G8553 03/16/2012 ADMIN INFLUENZA VIRU S VAC CPT-4: G0008 07/13/2011 FLULAVAL VACC, 3 YRS & >, IM CPT-4: Q2036 07/13/2011 ADMIN PNEUMOCOCCAL V ACCINE SNOMED CT: [id number] CPT-4: G0009 07/13/2011 Pneumococcal Polysac charide Vaccine, 23-Valent, Ad CPT-4: 21693 07/13/2011 Vital Signs Date Vital 01/08/2019 Blood Pressure 1: 128/70 Code: 8480-6 Heart Rate 1: 67 bpm SpO2: 97% 01/01/2019 Blood Pressure 1: 138/80 Code: 8480-6 BMI: 36.3 Code: 12684-8 Heart Rate 1: 64 bpm Height: 5'3" SpO2: 98% Weight: 205 lbs 12/18/2018 Blood Pressure 1: 120/62 Code: 8480-6 BMI: 36.0 Code: 94827-0 Heart Rate 1: 67 bpm Height: 5'3" SpO2: 97% Weight: 203 lbs 09/18/2018 Blood Pressure 1: 126/70 Code: 8480-6 BMI: 36.3 Code: 24167-7 Heart Rate 1: 58 bpm Height: 5'3" SpO2: 98% Weight: 205 lbs 08/31/2018 Blood Pressure 1: 148/76 Code: 8480-6 BMI: 37.0 Code: 09231-1 Heart Rate 1: 60 bpm Height: 5'3" SpO2: 98% Weight: 209 lbs 08/14/2018 Blood Pressure 1: 140/80 Code: 8480-6 BMI: 37.2 Code: 21609-3 Heart Rate 1: 76 bpm Height: 5'3" SpO2: 96% Weight: 210 lbs 05/22/2018 Blood Pressure 1: 150/62 Code: 8480-6 BMI: 36.7 Code: 97186-4 Heart Rate 1: 74 bpm Height: 5'3" SpO2: 98% Weight: 207 lbs 11/18/2017 Blood Pressure 1: 122/66 Code: 8480-6 BMI: 35.8 Code: 64358-8 Heart Rate 1: 59 bpm Height: 5'3" SpO2: 97% Weight: 202 lbs 08/03/2017 Blood Pressure 1: 122/60 Code: 8480-6 BMI: 36.0 Code: 79689-1 Heart Rate 1: 60 bpm Height: 5'3" SpO2: 97% Weight: 203 lbs 07/05/2017 Blood Pressure 1: 140/76 Code: 8480-6 BMI: 36.0 Code: 68470-1 Heart Rate 1: 58 bpm Height: 5'3" SpO2: 98% Weight: 203 lbs 12/02/2016 Blood Pressure 1: 122/70 Code: 8480-6 BMI: 34.4 Code: 38987-5 Heart Rate 1: 66 bpm Height: 5'3" SpO2: 99% Temperature: 36.4 (C ) / 97.5 (F) Weight: 194 lbs 11/22/2016 Blood Pressure 1: 102/60 Code: 8480-6 BMI: 34.2 Code: 18993-1 Heart Rate 1: 110 bpm Height: 5'3" SpO2: 98% Temperature: 36.7 (C ) / 98.0 (F) Weight: 193 lbs 11/05/2016 Blood Pressure 1: 140/62 Code: 8480-6 BMI: 36.1 Code: 64865-5 Heart Rate 1: 102 bpm Height: 5'3" SpO2: 97% Temperature: 37.1 (C ) / 98.7 (F) Weight: 204 lbs 07/22/2016 Blood Pressure 1: 158/80 Code: 8480-6 Blood Pressure 1: 160/76 Code: 8480-6 BMI: 36.8 Code: 76700-7 Heart Rate 1: 56 bpm Height: 5'3" SpO2: 98% Weight: 208 lbs 05/19/2016 Blood Pressure 1: 150/78 Code: 8480-6 Blood Pressure 1: 122/69 Code: 8480-6 BMI: 37.0 Code: 74803-7 Heart Rate 1: 61 bpm Height: 5'3" SpO2: 98% Weight: 209 lbs 02/13/2016 Blood Pressure 1: 140/76 Code: 8480-6 BMI: 36.8 Code: 33161-0 Heart Rate 1: 64 bpm Height: 5'3" SpO2: 97% Weight: 208 lbs 01/13/2016 Blood Pressure 1: 170/70 Code: 8480-6 BMI: 36.8 Code: 43110-1 Heart Rate 1: 65 bpm Height: 5'3" SpO2: 95% Weight: 208 lbs 01/02/2016 Blood Pressure 1: 150/88 Code: 8480-6 BMI: 36.8 Code: 27198-8 Heart Rate 1: 61 bpm Height: 5'3" SpO2: 98% Weight: 208 lbs 12/18/2015 Blood Pressure 1: 148/90 Code: 8480-6 BMI: 37.6 Code: 71131-2 Heart Rate 1: 64 bpm Height: 5'3" SpO2: 96% Weight: 212 lbs 09/08/2015 Blood Pressure 1: 130/88 Code: 8480-6 BMI: 37.0 Code: 69778-0 Heart Rate 1: 62 bpm Height: 5'3" SpO2: 97% Weight: 209 lbs 07/09/2015 Blood Pressure 1: 142/82 Code: 8480-6 BMI: 36.4 Code: 08717-0 Heart Rate 1: 66 bpm Height: 5'3" SpO2: 97% Weight: 205 lbs 5 oz 01/16/2015 Blood Pressure 1: 122/80 Code: 8480-6 BMI: 35.6 Code: 91890-7 Heart Rate 1: 67 bpm Height: 5'3" SpO2: 98% Weight: 201 lbs 01/03/2015 Blood Pressure 1: 122/70 Code: 8480-6 BMI: 35.6 Code: 82011-6 Heart Rate 1: 61 bpm Height: 5'3" Respiratory Rate: 16 bpm SpO2: 98% Weight: 201 lbs 09/16/2014 Blood Pressure 1: 132/78 Code: 8480-6 BMI: 34.9 Code: 33792-4 Heart Rate 1: 56 bpm Height: 5'3" Weight: 197 lbs 08/15/2014 Blood Pressure 1: 152/80 Code: 8480-6 Blood Pressure 2: 160/82 Code: 8480-6 BMI: 34.0 Code: 86476-3 Heart Rate 1: 75 bpm Height: 5'3" Weight: 192 lbs 06/12/2014 Blood Pressure 1: 136/82 Code: 8480-6 BMI: 34.9 Code: 83994-2 Heart Rate 1: 58 bpm Height: 5'3" SpO2: 96% Weight: 197 lbs 03/20/2014 Blood Pressure 1: 140/72 Code: 8480-6 BMI: 34.9 Code: 33125-6 Heart Rate 1: 60 bpm Height: 5'3" Weight: 197 lbs 12/10/2013 Blood Pressure 1: 132/78 Code: 8480-6 BMI: 35.1 Code: 87465-8 Heart Rate 1: 68 bpm Height: 5'3" Weight: 198 lbs 09/17/2013 Blood Pressure 1: 128/78 Code: 8480-6 BMI: 34.9 Code: 12202-1 Heart Rate 1: 68 bpm Height: 5'3" Weight: 197 lbs 05/21/2013 Blood Pressure 1: 128/82 Code: 8480-6 BMI: 35.6 Code: 53138-8 Heart Rate 1: 80 bpm Height: 5'3" Weight: 201 lbs 01/17/2013 Blood Pressure 1: 138/72 Code: 8480-6 BMI: 36.7 Code: 39894-5 Heart Rate 1: 60 bpm Height: 5'3" [...] 1: 140/78 Code: 8480-6 BMI: 40.0 Code: 75652-7 Heart Rate 1: 64 bpm Height: 5'3" Respiratory Rate: 16 bpm Weight: 226 lbs 11/04/2011 Blood Pressure 1: 136/76 Code: 8480-6 Heart Rate 1: 68 bpm Respiratory Rate: 16 bpm Weight: 226 lbs 07/13/2011 Blood Pressure 1: 142/80 Code: 8480-6 BMI: 40.0 Code: 84748-6 Heart Rate 1: 60 bpm Height: 5'4" [...] ago 03/16/2012 None shoulder pain Quality [place] 03/16/2012 None shoulder pain Quality sh kate [...] Encounter Performer Loca tion Codes Date ) 96541 EST. P ATIENT, LEVEL II Diagnosis: Otalgia, right ear[ICD10: H92.01] Diagnosis: Other specified disorders of teeth and supporting structures[ICD10: K08.89] [facility] CPT-4: 08440 01/08/2019 [id number]) 56683 EST. P ATIENT, LEVEL III Diagnosis: Otalgia, right ear[ICD10: H92.01] [facility] CPT- 4: 57841 01/01/2019 [id number] 84224 EST. 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 P ATIENT, LEVEL III Diagnosis: Nasal congestion[ICD10: R09.81] Diagnosis: Other allergic rhinitis[ICD10: J30.89] Юлия Manuel MD, [facility] CPT-4: 77948 08/31/2018 ([id number]) 03599 EST. P ATIENT, LEVEL III Diagnosis: Acute recurrent maxillary sinusitis[ICD10: J01.01] [facility] CPT-4: 56240 08/14/2018 79310 EST. PATIENT, LEVEL III Diagnosis: Pain in right shoulder[ICD10: M25.511] Diagnosis: Pain in right arm[ICD10: M79.601] Willow [facility] CPT-4: 72268 05/22/2018 ([id number]) 90442 EST. 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 PATIENT, LEVEL III Diagnosis: Other specified intestinal infections[ICD10: A08.8] [facility]ow [facility] CPT-4: 67229 08/03/2017 ([id number]) 25583 EST. 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 P ATIENT, LEVEL III Diagnosis: Essential (primary) hypertension[ICD10: I10] Юлия Manuel MD, [facility] CPT-4: 44840 12/02/2016 ([id number]) 58278 EST. P ATIENT, LEVEL III Diagnosis: Essential (primary) hypertension[ICD10: I10] Diagnosis: Allergic rhinitis due to pollen[ICD10: J30.1] Giuliana Manuel MD, C CPT-4: 70455 11/22/2016 35778 EST. PATIENT, LEVEL III Diagnosis: Acute laryngopharyngitis[ICD10: J06.0] Diagnosis: Influenza due to unidentified influenza virus with other respiratory manifestations[ICD10: J11.1] Willow Manuel MD, [facility] CPT-4: 59535 11/05/2016 ([id number]) 28086 EST. P ATIENT, LEVEL III Diagnosis: Gastro-esophageal reflux disease without esophagitis[ICD10: K21.9] Diagnosis: Essential (primary) hypertension[ICD10: I10] Giuliana Manuel MD, C CPT-4: 64607 07/22/2016 ([id number]) 22689 EST. P ATIENT, LEVEL IV Diagnosis: Essential (primary) hypertension[ICD10: I10] Diagnosis: Abdominal distension (gaseous)[ICD10: R14.0] Giuliana Manuel MD, C CPT-4: 75681 05/19/2016 ([id number]) 71768 EST. P ATIENT, LEVEL III Diagnosis: Essential (primary) hypertension[ICD10: I10] Юлия Manuel MD, [facility] CPT-4: 14420 02/13/2016 ([id number]) 76788 EST. P ATIENT, LEVEL III Diagnosis: Essential (primary) hypertension[ICD10: I10] Юлия Manuel MD, [facility] CPT-4: 60212 01/13/2016 53788 EST. PATIENT, LEVEL IV Diagnosis: Essential (primary) hypertension[ICD10: I10] Diagnosis: Body mass index (BMI) 36.0-36.9, adult[ICD10: Z68.36] Willow Manuel MD, [facility] CPT-4: 31989 01/02/2016 ([id number]) 54609 EST. P ATIENT, LEVEL III Diagnosis: Essential (primary) hypertension[ICD10: I10] Юлия Manuel MD, [facility] CPT-4: 43911 12/18/2015 ([id number]) 66533 EST. P ATIENT, LEVEL IV Diagnosis: Essential (primary) hypertension[ICD10: I10] Diagnosis: Benign paroxysmal vertigo, bilateral[ICD10: H81.13] Diagnosis: Radiculopathy, cervical region[ICD10: M54.12] Giuliana Manuel MD, [facility] CPT-4: 70304 09/08/2015 ([id number]) 95349 EST. P ATIENT, LEVEL IV Diagnosis: Other specified nonscarring hair loss[ICD10: L65.8] Diagnosis: Myositis, unspecified[ICD10: M60.9] Diagnosis: Psoriasis, unspecified[ICD10: L40.9] Diagnosis: Essential (primary) hypertension[ICD10: I10] Giuliana Manuel MD, C CPT-4: 14973 07/09/2015 ([id number]) 31511 EST. P ATIENT, LEVEL III Diagnosis: ESSENTIAL HYPERTENSION[ICD9: 401.9] Giuliana Manuel MD, [facility] CPT- 4: 85886 01/16/2015 ([id number]) 52307 EST. P ATIENT, LEVEL III Diagnosis: Shoulder pain[ICD9: 719.41] Diagnosis: ESSENTIAL HYPERTENSION[ICD9: 401.9] Diagnosis: PALPITATIONS[ICD9: 785.1] Giuliana Manuel MD, [facility] CPT-4: 44782 01/03/2015 ([id number]) 97032 EST. P ATIENT, LEVEL III Diagnosis: Sacroiliitis[ICD9: 720.2] Diagnosis: Back pain[ICD9: 724.5] Diagnosis: ESSENTIAL HYPERTENSION[ICD9: 401.9] Giuliana Manuel MD [facility] CPT- 4: 25284 09/16/2014 ([id number]) 87066 EST. P ATIENT, LEVEL IV Diagnosis: ESSENTIAL HYPERTENSION[ICD9: 401.9] Diagnosis: Arrhythmia[ICD9: 427.9] Diagnosis: Nausea[ICD9: 787.02] Giuliana Manuel MD [facility] CPT-4: 95254 08/15/2014 ([id number]) 66396 EST. P ATIENT, LEVEL IV Diagnosis: ESSENTIAL HYPERTENSION[ICD9: 401.9] Diagnosis: Back pain[ICD9: 724.5] Diagnosis: Allergic reaction[ICD9: 995.3] Giuliana Manuel MD [facility] CPT-4: 34815 06/12/2014 ([id number]) 38151 EST. P ATIENT, LEVEL III Diagnosis: Thoracic back pain[ICD9: 724.1] Diagnosis: MYALGIA AND MYOSITIS[ICD9: 729.1] Giuliana Manuel MD [facility] CPT-4: 53107 03/20/2014 ([id number]) 02944 EST. P ATIENT, LEVEL IV Diagnosis: HYPERLIPIDEMIA[ICD9: 272.4] Diagnosis: ESSENTIAL HYPERTENSION[SNOMED: 38525564] Diagnosis: ABDOM PAIN NOS SITE[ICD9: 789.00] Giuliana Manuel MD [facility] CPT-4: 08595 12/10/2013 ([id number]) 56417 EST. P ATIENT, LEVEL IV Diagnosis: ESSENTIAL HYPERTENSION[SNOMED: 30982117] Diagnosis: HYPERLIPIDEMIA[ICD9: 272.4] Giuliana Manuel MD [facility] CPT-4: 95342 09/17/2013 ([id number]) 70028 EST. P ATIENT, LEVEL IV Diagnosis: ESSENTIAL HYPERTENSION[SNOMED: 75261203] Diagnosis: OBESITY[ICD9: 278.00] Diagnosis: Back pain[ICD9: 724.5] Giuliana Manuel MD [facility] CPT-4: 62014 05/21/2013 ([id number]) 22582 EST. P ATIENT, LEVEL IV Diagnosis: ESSENTIAL HYPERTENSION[SNOMED: 68960425] Diagnosis: HYPERLIPIDEMIA[ICD9: 272.4] Diagnosis: Abdominal pain[ICD9: 789.00] Diagnosis: BENIGN PAROXYSMAL VERTIGO[ICD9: 386.11] Giuliana Manuel MD, [facility] CPT-4: 37845 01/17/2013 ([id number]) 30807 EST. P ATIENT, LEVEL IV Diagnosis: ESSENTIAL HYPERTENSION[SNOMED: 66440502] Diagnosis: BENIGN PAROXYSMAL VERTIGO[ICD9: 386.11] Diagnosis: Hair loss[ICD9: 704.00] Diagnosis: Vitamin d deficiency[ICD9: 268.9] Diagnosis: Bleeding from the nose[ICD9: 784.7] Giuliana Manuel MD, [facility] CPT- 4: 54689 09/20/2012 02357 EST. PATIENT, LEVEL IV Diagnosis: BPPV (benign paroxysmal positional vertigo)[ICD9: 386.11] Diagnosis: HYPERLIPIDEMIA[ICD9: 272.4] Diagnosis: ESSENTIAL HYPERTENSION[SNOMED: 23645264] Giuliana Manuel MD, [facility] CPT-4: 43117 06/08/2012 ([id number]) 25300 EST. P ATIENT, LEVEL IV Diagnosis: BPPV (benign paroxysmal positional vertigo)[ICD9: 386.11] Diagnosis: Diverticulitis[ICD9: 562.11] Diagnosis: Abdominal pain[ICD9: 789.00] Giuliana Manuel MD, [facility] CPT-4: 36288 04/10/2012 ([id number]) 71584 EST. P ATIENT, LEVEL III Diagnosis: Neck pain[ICD9: 723.1] Diagnosis: Acute upper back pain[ICD9: 724.1] Giuliana Manuel MD, [facility] CPT- 4: 12670 03/16/2012 ([id number]) 49284 EST. P ATIENT, LEVEL IV Diagnosis: HYPERLIPIDEMIA[ICD9: 272.4] Diagnosis: ESSENTIAL HYPERTENSION[SNOMED: 11294477] Diagnosis: Constipation - functional[ICD9: 564.09] Giuliana Manuel MD, [facility] CPT-4: 74948 02/03/2012 ([id number] 81225 EST. P ATIENT, LEVEL IV Diagnosis: HYPERLIPIDEMIA[ICD9: 272.4] Diagnosis: VITAMIN DEFICIENCY[ICD9: 269.2] Diagnosis: ESSENTIAL HYPERTENSION[SNOMED: 08401817] Giuliana Manuel MD, [facility] CPT-4: 34030 11/04/2011 65171 EST. 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 01/08/2019 Patient Education: Patient Medication Summary Completed 01/08/2019 Visit Plan: Right ear pain -concern for trigeminal neuralgia -she does have some sinus tenderness -will give kenalog injection today - continue anti histamine daily -monitor symptoms and call if persistent, worsen o r new symptoms develop. Patient verbalized understanding of plan. 01/01/2019 Appointment: Юлия Rojas WPtel: [address] [place], [place] [phone] (30 min) [facility] 01/01/2019 Patient Education: Patient Medication Summary Completed [...] improving. 12/18/2018 Appointment: Giuliana Manuel WPtel: [phone] [facility] (15 min) Moderate 12/18/2018 Patient Education: Patient [...] low back. 09/18/2018 Appointment: Giuliana Manuel WPtel: [facility] (15 min) Moderate 09/18/2018 Patient Education: Patient [...] spray. 08/31/2018 Appointment: [phone] [place] (15 min) Moderate 08/31/2018 Patient Education: [...] improve. 05/22/2018 Appointment: Willow [facility] (15 min) Moderate 05/22/2018 Patient Education: Patient [...] improving. 11/18/2017 Appointment: [facility] Manuel [phone] [place] (15 min) Moderate 11/18/2017 Patient Education: Patient Medication Summary Completed 11/18/2017 Appointment: Giuliana Manuel WPtel: [phone] [facility] [place] (15 min) Moderate 11/07/2017 Visit Plan: [...] not improved. 08/03/2017 Appointment: Willow Garcia WPtel: [facility]5 [facility] (30 min) Complex 08/03/2017 Patient Education: [...] D daily. 07/05/2017 Appointment: Giuliana Manuel WPtel: [facility] (15 min) Moderate 07/05/2017 Patient Education: Patient Medication Summary Completed 07/05/2017 Patient Education: Obesity Completed 07/05/2017 Appointment: Giuliana Manuel WPtel: [address] [place], [place] [phone] (15 min) Moderate 06/27/2017 Appointment: Giuliana Manuel WPtel: [facility] (15 min) Moderate 06/21/2017 Appointment: Юлия Rojas WPtel: [address] [place], [place] [phone] [place] (30 min) Complex 12/23/2016 Visit Plan: [...] RESTART HCTZ 12/02/2016 Appointment: Юлия Rojas WPtel: [facility]3 [phone] (30 min) Complex 12/02/2016 Patient Education: [...] 7 days 11/22/2016 Appointment: Giuliana Manuel WPtel: [facility] (15 min) Moderate 11/22/2016 Patient Education: Patient Medication Summary Completed 11/22/2016 Patient Education: Obesity Completed 11/22/2016 Visit Plan: Influenza - pt started on tamiflu - pt to start on anti-inflammatories, tylenol and monitor symptoms. Pt to call if not improving. Pt to alert any close contacts as to illness. 11/05/2016 Appointment: Willow Garcia WPtel: [facility] (30 min) Complex 11/05/2016 Patient Education: [...] on carafate 07/22/2016 Appointment: Giuliana Manuel WPtel: [facility] (15 min) Moderate 07/22/2016 Patient Education: Patient Medication Summary Completed 07/22/2016 Patient Education: Obesity Completed 07/22/2016 Care Plan: Referral Order SNOMED-CT : [id number] Pending 07/22/2016 Visit Plan: Hypertension - well [...] Obesity Completed 05/19/2016 Appointment: Giuliana Manuel WPtel: [facility] [place] (15 min) Moderate 05/17/2016 Visit Plan: Hypertension - well con trolled - continue with current medications, continue with no added salt diet. Pt has been encouraged to exercise daily. The pt has been advised to call the office if there are any acute concerns about change in blood pressure readings at home. 02/13/2016 Appointment: Юлия Rojas WPtel: [facility]3 [phone] [place] (30 min) Complex 02/13/2016 Patient [...] Obesity Completed 12/18/2015 Appointment: Giuliana Manuel WPtel: [facility] (15 min) Moderate 12/08/2015 Referral: Jared Lafleur [address] [facility] Referral Completed 10/17/2015 Visit Plan: Hypertension - [...] stress test. 09/08/2015 Appointment: Giuliana Manuel WPtel: [facility] (15 min) Moderate 09/08/2015 Patient Education: Patient Medication Summary Completed 09/08/2015 Patient Education: .Cervicalgia Neck Pain Completed 09/08/2015 Care Plan: Referral Order SNOMED-CT : [id number] Ordered 09/08/2015 Visit Plan: Hypertension - uncontro [...] checked today. 07/09/2015 Appointment: Giuliana Manuel WPtel: [facility] (15 min) Moderate 07/09/2015 Patient Education: Patient Medication Summary Completed 07/09/2015 Appointment: Tonia Manuely WPtel: [address] [place], [place] [phone] (15 min) Moderate 07/07/2015 Appointment: [place] W[place]el: [address] [place], [place] [phone] Follow up 03/17/2015 Visit Plan: Hypertension - well con trolled - continue with current medications, continue with no added salt diet. Pt has been encouraged to exercise daily. The pt has been advised to call the office if there are any acute concerns about change in blood pressure readings at home. Palpitations resolved. 01/16/2015 Appointment: Giuliana Manuel WPtel: [address] [place], [place] [phone] Other 01/16/2015 Patient Education: Patient Medication Summary [...] pain symptoms. 01/03/2015 Appointment: Giuliana Manuel WPtel: [address] [place], [place] [phone] Follow up 01/03/2015 Patient Education: Patient Medication [...] Hypertension Completed 09/16/2014 Appointment: Giuliana Manuel WPtel: [address] [place], [place] [phone] Follow up 09/09/2014 Visit Plan: Hypertension - [...] symptoms worsen. 08/15/2014 Appointment: Giuliana Manuel WPtel: [facility] Sick 08/15/2014 Patient Education: Patient Medication Summary Completed 08/15/2014 Patient Education: Hypertension Completed 08/15/2014 Care Plan: Referral Order SNOMED-CT : [id number] Ordered 08/15/2014 Appointment: Giuliana Manuel WPtel: [facility] Follow up 06/18/2014 Visit Plan: Back pain - [facility]. Rash - reaction to [...] at home. 06/12/2014 Appointment: Giuliana Manuel WPtel: [address] [place], [place] [phone] [facility] 06/12/2014 Patient Education: Patient Medication Summary Completed 06/12/2014 Patient Education: Hypertension Completed 06/12/2014 Care Plan: Referral Order SNOMED-CT : [id number] Ordered 06/12/2014 Visit Plan: Hypertension - well [...] spine xrays. 03/20/2014 Appointment: Giuliana Manuel WPtel: [address] [place], [place] [phone] Follow up 03/20/2014 Patient Education: Patient Medication [...] a UTI 12/10/2013 Appointment: Giuliana Manuel WPtel: [facility] Follow up 12/10/2013 Patient Education: Patient Medication [...] weekly. 09/17/2013 Appointment: Giuliana Manuel WPtel: [phone] [facility] Follow up 09/17/2013 Patient Education: Patient Medication [...] muscle rub. 05/21/2013 Appointment: Giuliana Manuel [facility]el: [phone] Follow up 05/21/2013 Patient Education: Patient Medication [...] vertigo. 01/17/2013 Appointment: Giuliana Manuel WPtel: [phone] [facility] Follow up 01/17/2013 Patient Education: Patient Medication [...] if needed. 09/20/2012 Appointment: Giuliana Manuel WPtel: [phone] [place] Follow up 09/20/2012 Patient Education: Patient Medication [...] intolerance begin. 06/08/2012 Appointment: Giuliana Manuel WPtel: [address] [place], [place] [phone] Follow up 06/08/2012 Patient Education: Patient Medication [...] or popcorn. 04/10/2012 Appointment: Giuliana Manuel WPtel: [facility] Other 04/10/2012 Patient Education: Patient Medication Summary [...] by Tuesday. 03/16/2012 Appointment: Giuliana Manuel WPtel: [facility] Other 03/16/2012 Patient Education: Patient Medication Summary [...] this regimen. 02/03/2012 Appointment: Giuliana Manuel WPtel: [address] [place], [place] [address] Other 02/03/2012 Patient Education: Patient Medication Summary [...] a week. 11/04/2011 Appointment: Giuliana Manuel WPtel: [address] [place], [place] [phone] Follow up 11/04/2011 Patient Education: Patient Medication [...] She will monitor her intake. Allergies - [facility] for the headaches to see ifnallergy medication helps to prevent the headaches flu shot pneumonia shot 07/13/2011 Appointment: Giuliana Manuel WPtel: [address] [place], [place] [phone] Other 07/13/2011 Patient Education: Patient Medication Summary Completed 07/13/2011 Patient Education: .Amazing charts Diabe tic meal planning guide Completed 07/13/2011 Referral: Jared Lafleur [facility] [place] Referral Appointment Requested Referral: Duarte Catalan Referral Appointment Requested Referral: Dr. Willams WPtel: [address] [place], [place] [phone] [place] Referral Initiated Referral: [facility] WPtel: [address] [place] [phone] [place] Referral Initiated Instructions Comment Add a [...] Back pain - referr al to [facility] physical therapy. Rash - reaction to [...]
--- OUTSIDE RECORDS SUMMARY | 2020-01-21 14:10 | XMS REPORT | CCD ---
Author Author Narinder Manuel Organization [facility] Address [address] [place] [address] Phone Care Team Providers Care Sports Therapist Name Role Phone PP Unavailable CCM Unavailable Summary Purpose Interface Exchange Insurance Providers Payer name Policy type / Coverage type Covered constitution party ID Effective Begin Date Effective End Date WPS Medicare Part B Medicare Part B [id number] Unknown [employer] Medicare Part B [id number] Unknown Family history Mother Diagnosis Age At [...] M arried 07/13/[address]: 616506784 Nonsmoker 07/13/[address]: 282600596 Never drinks alcohol 07/13/2011 Allergies, Adverse Reactions, Alerts Substance Reaction Codes Entered Date Inactivated Date Status Soy Unknown 07/13/2011 No Inactive Date Active Cardizem RxNorm: 061956 05/19/2016 No Inactive Date Active Metoprolol Succinate anaphylaxis, rash, RxNorm: 6918 02/13/2016 No Inactive Date Active Past Medical History Illness Codes Condition Status Onset Date Resolved Date Otalgia, right ear ICD- 9: 388.70 ICD-10: H92.01 Active 01/01/2019 Unknown Essential (primary) hypertension ICD-9: 401.1 ICD-10: [...] pain ICD-9: 789.00 Active 07/13/2011 Unknown 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 Unknown OBESITY ICD-9: 278.00 Active 07/13/2011 Unknow n Postprandial bloating ICD-9: 787.3 Active 07/13/2011 Unknown Seasonal allergies ICD- 9: 477.9 Active 07/13/2011 Unknown VAC STREP PNEUMONIAE -FLU ICD-9: V06.6 Active 07/03 Unknown Problems Condition Codes Effectiv e Dates Condition Status Otalgia, right ear ICD- 9: 388.70 ICD-10: H92.01 01/01/2019 Active Essential (primary) hypertension ICD-9: 401.1 ICD-10: [...] Abdominal pain ICD-9: 789.00 07/13/2011 Active 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/13/2011 Active OBESITY ICD-9: 278.00 07/13/2011 Active Postprandial bloating ICD-9: 787.3 07/13/2011 Active Seasonal allergies ICD- 9: 477.9 07/13/2011 Active VAC STREP PNEUMONIAE -FLU ICD-9: V06.6 07/13/2011 Active Medications Medication Codes Instruc tions Start Date Stop Date Sta tus Fill Instructions Kenalog 40 mg/mL karl pension for injection RxNorm: 5002097 Milliliter(s) Inj 01/01/2019 01/01/2019 In active losartan 25 mg tablet RxNorm: 328913 1 Tablet(s) PO BID 11/01/2018 10/26/2019 Active losartan 25 mg tablet RxNorm: 553861 1 Tablet(s) PO BID 11/01/2018 10/31/2018 Inactive hydrochlorothiazide 12.5 mg tablet RxNorm: 224494 TAKE 1 TABLET BY MOUT H EVERY DAY 10/02/2018 03/30/2019 Ac tive - First Attempt Ref: [id number] famotidine 40 mg tablet RxNorm: 815875 TAKE 1 TABLET BY MOUTH EVERY MORNING 10/02/2018 03/30/2019 Ac tive - First Attempt Ref: [id number] doxazosin 1 mg tablet RxNorm: 257248 TAKE 1 TABLET BY MOUTH EVERY DAY AT [facility] 10/02/2018 03/30/2019 Ac tive - First Attempt Ref: [id number] naproxen 500 mg tablet RxNorm: 741577 1 Tablet(s) PO BID 09/18/2018 09/24/2018 Inactive diclofenac 1 % topic al gel RxNorm: 257958 2 Application TOP QID 09/18/2018 11/16/2018 Inactive Kenalog 40 mg/mL karl pension for injection RxNorm: 5881510 1 Milliliter(s) Inj 08/31/2018 08/31/2018 In active clonidine HCl 0.1 mg tablet RxNorm: 123286 1/2 Tablet(s) PO BID 08/16/2018 08/10/2019 Active amoxicillin 500 mg t ablet RxNorm: 350965 1 Tablet(s) PO TID 08/14/2018 08/20/2018 Inactive losartan 25 mg tablet RxNorm: 784718 1 Tablet(s) PO BID 05/02/2018 05/01/2018 Inactive losartan 25 mg tablet RxNorm: 478501 1 Tablet(s) PO BID 05/02/2018 10/31/2018 Inactive losartan 25 mg tablet RxNorm: 903578 1 Tablet(s) PO BID 01/30/2018 05/01/2018 Inactive Vitamin D 2,000 unit capsule RxNorm: 1 Capsule(s) PO daily 11/18/2017 No Stop Date Active atenolol 25 mg tablet RxNorm: 619022 1 Tablet(s) PO daily 11/18/2017 11/12/2018 Inactive atenolol 25 mg tablet RxNorm: 603052 1 Tablet(s) PO BID managed by Dr Lafleur 11/18/2017 11/17/2017 In active clonidine HCl 0.1 mg tablet RxNorm: 492581 1/2 Tablet(s) PO BID 11/18/2017 08/15/2018 Inactive doxazosin 1 mg tablet RxNorm: 375798 1 Tablet(s) PO daily at midnight 11/18/2017 10/01/2018 In active midnight losartan 25 mg tablet RxNorm: 988399 1 Tablet(s) PO BID 11/18/2017 01/29/2018 Inactive hydrochlorothiazide 12.5 mg tablet RxNorm: 265927 1 Tablet(s) PO daily 11/18/2017 10/01/2018 In active famotidine 40 mg tablet RxNorm: 016445 1 Tablet(s) PO daily TAKE 1 TABLET BY [facility] EVERY MORNING 11/18/2017 10/01/2018 Inactive - Ref: [id number] hydrochlorothiazide 12.5 mg tablet RxNorm: 205470 1 Tablet(s) PO daily 10/28/2017 11/17/2017 In active famotidine 40 mg tablet RxNorm: 962766 TAKE 1 TABLET BY MOUTH EVERY MORNING 10/04/2017 11/17/2017 In active - Ref: [id number] clonidine HCl 0.1 mg tablet RxNorm: 837580 1/2 Tablet(s) PO BID 07/05/2017 11/17/2017 Inactive doxazosin 1 mg tablet RxNorm: 261871 1 Tablet(s) PO daily at midnight 07/05/2017 11/17/2017 In active midnight doxazosin 1 mg tablet RxNorm: 199356 1 Tablet(s) PO BID 12/02/2016 2017 Inactive midnight prednisone 20 mg tablet RxNorm: 631852 3 Tablet(s) PO daily 11/22/2016 11/26/2016 Inactive Tessalon Perles 100 mg capsule RxNorm: 832183 1 -2 Capsule(s) PO TI D as needed cough 11/19/2016 12/31/2018 Inactive Zithromax Z-Jeff 250 mg tablet RxNorm: 215903 1 Tablet(s) PO UD 11/19/2016 12/01/2016 Inactive z pack as directed Tamiflu 75 mg capsule RxNorm: 444225 1 Capsule(s) PO BID 11/05/2016 11/09/2016 Inactive Kenalog 40 mg/mL karl pension for injection RxNorm: 9164042 Milliliter(s) Inj 11/05/2016 11/05/2016 In active Tessalon Perles 100 mg capsule RxNorm: 303331 1 -2 Capsule(s) PO TI D as needed cough 11/04/2016 11/18/2016 Inactive famotidine 40 mg tablet RxNorm: 622653 1 Tablet(s) PO QAM 10/25/2016 10/03/2017 Inactive famotidine 40 mg tablet RxNorm: 121442 1 Tablet(s) PO QAM 08/02/2016 10/24/2016 Inactive Carafate 1 gram tablet RxNorm: 973758 1 Tablet(s) PO TID DISSOLVE THE PILL IN 10ML OF WATER 07/22/2016 10/19/2016 Inactive clonidine HCl 0.1 mg tablet RxNorm: 419633 1 Tablet(s) PO BID an d 1 tablet as needed 07/22/2016 12/01/2016 Inactive Cinnamon 1000 mg RxNorm: 1 PO daily 05/19/2016 No Stop Date Active aspirin 81 mg tablet ,delayed release RxNorm: 454064 1 Tablet(s) PO QHS 05/19/2016 11/27/2018 In active losartan 25 mg tablet RxNorm: 634928 1 Tablet(s) PO BID 05/19/2016 11/17/2017 Inactive atenolol 25 mg tablet RxNorm: 558916 1.5 Tablet(s) PO BID 02/13/2016 07/21/2016 Inactive losartan 25 mg tablet RxNorm: 545592 2 Tablet(s) PO BID 01/13/2016 05/11/2016 Inactive Cardizem CD 240 mg c apsule,extended release RxNorm: 138161 1 Capsule(s) PO daily 01/13/2016 02/12/2016 In active losartan 100 mg tablet RxNorm: 445400 1/2 Tablet(s) PO BID 01/08/2016 01/12/2016 Inactive losartan 25 mg tablet RxNorm: 693362 2 Tablet(s) PO QPM 1 Tablet(s) PO QPM 12/18/2015 01/07/2016 In active atenolol 25 mg tablet RxNorm: 478347 1.5 Tablet(s) PO BID TAKE ONE TABLET BY MOUTH TWICE A DAY 12/18/2015 01/12/2016 Inactive atenolol 25 mg tablet RxNorm: 612722 Tablet(s) TAKE ONE TABLET BY MOUTH TWICE A DAY 11/14/2015 12/17/2015 Inactive losartan 25 mg tablet RxNorm: 072079 Tablet(s) 1 Tablet(s) PO QPM 11/14/2015 12/17/2015 Inactive spironolactone 25 mg tablet RxNorm: 042158 1 Tablet(s) PO daily 11/14/2015 12/14/2015 Inactive atenolol 25 mg tablet RxNorm: 710011 TAKE ONE TABLET BY MOUTH TWICE A DAY 08/07/2015 11/13/2015 In active atenolol 25 mg tablet RxNorm: 535328 1 Tablet(s) PO daily TAKE ONE TABLET BY MOUTH TWICE DAILY 08/06/2015 08/06/2015 Inactive Generic For:TENORMIN 25 MG TABLET 05/05/2015 10:00:22 AM atenolol 25 mg tablet RxNorm: 920260 1 Tablet(s) PO daily TAKE ONE TABLET BY MOUTH TWICE DAILY 08/06/2015 08/05/2015 Inactive Generic For:TENORMIN 25 MG TABLET 05/05/2015 10:00:22 AM betamethasone diprop ionate 0.05 % topical ointment RxNorm: 061676 1 TOP TID as needed rash 07/09/2015 05/18/2016 Inactive betamethasone diprop ionate 0.05 % topical ointment RxNorm: 384915 1 TOP TID as needed rash 07/09/2015 07/08/2015 Inactive spironolactone 25 mg tablet RxNorm: 843347 1 Tablet(s) PO daily 07/09/2015 07/08/2015 Inactive spironolactone 25 mg tablet RxNorm: 178819 1 Tablet(s) PO daily 07/09/2015 11/13/2015 Inactive losartan 25 mg tablet RxNorm: 152716 Tablet(s) 1 Tablet(s) PO QPM 05/27/2015 11/13/2015 Inactive atenolol 25 mg tablet RxNorm: 961064 TAKE ONE TABLET BY MOUTH TWICE DAILY 05/05/2015 08/05/2015 In active Generic For:TENORMIN 25 MG TABLET 05/05 10:00:22 AM hydrochlorothiazide 25 mg tablet RxNorm: 014615 1/2 Tablet(s) PO BID 02/17/2015 07/08/2015 Inactive Generic For:HYDRODIURIL 25 MG TABLET sulfamethoxazole 800 mg-trimethoprim 160 mg tablet RxNorm: 516133 1 Tablet(s) PO BID 01/16/2015 01/25/2015 Inactive losartan 25 mg tablet RxNorm: 393646 1 Tablet(s) PO QPM 12/09/2014 05/26/2015 Inactive Kenalog 40 mg/mL karl pension for injection RxNorm: 5409181 1 Milliliter(s) Inj 09/16/2014 09/16/2014 In active prednisone 20 mg tablet RxNorm: 461112 3 Tablet(s) PO daily 09/16/2014 09/18/2014 Inactive losartan 25 mg tablet RxNorm: 462048 1 Tablet(s) PO QPM 08/15/2014 12/08/2014 Inactive hydrochlorothiazide 25 mg tablet RxNorm: 789021 TAKE 1/2 TABLET BY [facility] TWICE DAILY 08/13/2014 02/08/2015 Inactive Generic For:HYDRODIURIL 25 MG TABLET atenolol 25 mg tablet RxNorm: 531553 TAKE ONE TABLET BY MOUTH TWICE DAILY 05/07/2014 05/01/2015 In active Generic For:TENORMIN 25 MG TABLET ketorolac 60 mg/2 mL intramuscular solution RxNorm: 767670 2 Milliliter(s) IM 03/20/2014 03/20/2014 In active hydrochlorothiazide 25 mg tablet RxNorm: 931780 Tablet(s) PO TAKE 1/2 TABLET BY MOUTH TWICE DAILY 02/14/2014 08/12/2014 Inactive Generic For:HYDRODIURIL 25 MG TABLET Generic For:HYDRODIURIL 25 MG TABLET 02/14/2014 3:45:03 PM atorvastatin 10 mg t ablet RxNorm: 958843 1 Tablet(s) PO TIW 09/17/2013 03/19/2014 Inactive atorvastatin 10 mg t ablet RxNorm: 355845 tablet oral 09/17/2013 06/04/2015 Inactive hydrochlorothiazide 25 mg tablet RxNorm: 823919 Tablet(s) PO TAKE 1/2 TABLET BY MOUTH TWICE DAILY 08/06/2013 02/13/2014 Inactive Generic For:HYDRODIURIL 25 MG TABLET Generic For:HYDRODIURIL 25 MG TABLET 08/06/2013 1:52:35 PM amoxicillin 500 mg t ablet RxNorm: 263579 2 Tablet(s) PO 2 tabl ets PO 1 hour before dental procedure. 07/26/2013 07/25/2013 Inactive amoxicillin 500 mg t ablet RxNorm: 829266 2 Tablet(s) PO 2 tabl ets PO 1 hour before dental procedure. 07/26/2013 07/26/2013 Inactive methotrexate sodium 2.5 mg tablet RxNorm: 892839 tablet oral 07/13/2013 01/15/2015 Inactive atenolol 25 mg tablet RxNorm: 635781 Tablet(s) PO TAKE ONE TABLET BY MOUTH TW ICE DAILY 05/01/2013 05/06/2014 Inactive Generic For:TENORMIN 25 MG TABLET hydrochlorothiazide 25 mg tablet RxNorm: 344412 Tablet(s) PO TAKE 1/2 TABLET BY MOUTH TWICE DAILY 11/21/2012 08/05/2013 Inactive Generic For:HYDRODIURIL 25 MG TABLET atenolol 25 mg tablet RxNorm: 228614 Tablet(s) PO TAKE ONE TABLET BY MOUTH TW ICE DAILY 10/02/2012 04/30/2013 Inactive Generic For:TENORMIN 25 MG TABLET gemfibrozil 600 mg t ablet RxNorm: 107283 1 Tablet(s) PO BID 06/08/2012 10/08/2012 Inactive meclizine 25 mg tablet RxNorm: 3246258 1 Tablet(s) PO Q4 PRN 06/08/2012 09/05/2012 Inactive prednisone 10 mg Tab RxNorm: 667411 2 Tablet(s) PO daily 03/16/2012 03/20/2012 Inactive atorvastatin 10 mg Tab RxNorm: 528065 1 Tablet(s) PO daily 12/21/2011 12/20/2011 Inactive atorvastatin 10 mg Tab RxNorm: 205753 1 Tablet(s) PO daily 12/21/2011 06/08/2012 Inactive methotrexate sodium 2.5 mg Tab RxNorm: 504152 Tablet(s) PO 11/16/2011 06/12/2012 Inactive 3 on on hydrochlorothiazide 25 mg Tab RxNorm: 893637 1/2 Tablet(s) PO BID 11/01/2011 11/24/2012 Inactive hydrochlorothiazide 12.5 mg Cap RxNorm: 668233 Capsule(s) PO 11/01/2011 06/08/2012 Inactive TAKE ONE TABLET BY MOUTH TWICE DAILY;Gen sky For:MICROZIDE 12.5 MG CAPSULE hydrochlorothiazide 25 mg Tab RxNorm: 352775 1/2 Tablet(s) PO BID 11/01/2011 11/24/2012 Inactive hydrochlorothiazide 25 mg tablet RxNorm: 270858 1/2 Tablet(s) PO BID 11/01/2011 10/31/2011 Inactive hydrochlorothiazide 25 mg Tab RxNorm: 716377 1/2 Tablet(s) PO BID 11/01/2011 10/31/2011 Inactive atenolol 25 mg tablet RxNorm: 400536 Tablet(s) PO 10/04/2011 10/01/2012 Inactive TAKE ONE TABLET BY MOUTH TWICE DAILY;Generic For:TENORMIN 25 MG TABLET hydrochlorothiazide 12.5 mg Cap RxNorm: 041276 1 Capsule(s) PO BID 09/13/2011 10/31/2011 Inactive Influenza Virus Vacc ine 0.5 mL RxNorm: IM 07/13/2011 07/13/2011 Inactive Pneumovax 23 25 mcg/ 0.5 mL Injection RxNorm: 633319 Milliliter(s) Inj 07/13/2011 07/13/2011 In active Cinnamon 1000 mg RxNorm: 2 PO daily No Start Date Active atenolol 25 mg Tab RxNorm: 056694 1 Tablet(s) PO BID No Start Date 10/03/2011 Inactive niacin ER 500 mg Cap RxNorm: 023470 1 Capsule(s) PO daily No Start Date 06/08/2012 Inactive gemfibrozil 600 mg t ablet RxNorm: 546847 1 Tablet(s) PO BID No Start Date 06/07/2012 Inactive Vitamin C 500 mg Tab RxNorm: 710081 1 Tablet(s) PO daily No Start Date 07/21/2016 Inactive Zithromax Z-Jeff 250 mg tablet RxNorm: 766115 1 Tablet(s) PO UD No Start Date 11/18/2016 Inactive z pack as directed doxazosin 1 mg tablet RxNorm: 043814 1 Tablet(s) PO BID No Start Date 12/01/2016 Inactive vitamin E (dl, aceta te) 400 unit Cap RxNorm: 272254 1 Capsule(s) PO daily No Start Date 07/21/2016 Inactive famotidine 40 mg tablet RxNorm: 127733 1 Tablet(s) PO QAM No Start Date 08/01/2016 Inactive Phenergan VC-Codeine 6.25 mg-5 mg-10 mg/5 mL syrup RxNorm: 044120 5 Milliliter(s) PO Q6 as needed No Start Date 12/31/2018 Inactive hydrochlorothiazide 25 mg Tab RxNorm: 744850 1/2 Tablet(s) PO BID No Start Date 09/12/2011 Inactive Tessalon Perles 100 mg capsule RxNorm: 971582 1 -2 Capsule(s) PO TI D as needed cough No Start Date 11/03/2016 Inactive aspirin 81 mg Tab, D elayed Release RxNorm: 376983 1 Tablet(s) PO every other day No Start Date 05/18/2016 Inactive Cinnamon 1000 mg RxNorm: 2 PO daily No Start Date 05/18/2016 Inactive clonidine HCl 0.1 mg tablet RxNorm: 398286 1 Tablet(s) PO QHS an d 1 Tablet as needed No Start Date 07/21/2016 Inactive [place] 3 Cap RxNorm: 1 Capsule(s) PO BID No Start Date 12/31/2018 Inactive niacin 500 mg tablet RxNorm: 588303 1 Tablet(s) PO QHS No Start Date 01/01/2015 Inactive multivitamin Tab RxNorm: 1 Tablet(s) PO daily No Start Date 07/21/2016 Inactive methotrexate sodium 2.5 mg Tab RxNorm: 142337 Tablet(s) PO No Start Date 11/15/2011 Inactive 3 on tuesday3 on T-Bio RxNorm: 1 PO daily No Start Date 05/18/2016 Inactive Vitamin D 2,000 unit Cap RxNorm: 1 Capsule(s) PO daily No Start Date 07/21/2016 Inactive hydrochlorothiazide 12.5 mg tablet RxNorm: 846982 1 Tablet(s) PO daily No Start Date 10/27/2017 Inactive Medication Administered Medication Codes Instruc tions Start Date Status Kenalog 40 mg/mL suspension for injection RxNorm: 1850176 Milliliter 01/01/2019 Ac tive Kenalog 40 mg/mL suspension for injection RxNorm: 2881703 1Milliliter 08/31/2018 N o longer Active Kenalog 40 mg/mL suspension for injection RxNorm: 5858301 Milliliter 11/05/2016 No longer Active Kenalog 40 mg/mL suspension for injection RxNorm: 2984453 1Milliliter 09/16/2014 N o longer Active ketorolac 60 mg/2 mL intramuscular solution RxNorm: 816854 2Milliliter 03/20/2014 N o longer Active Influenza Virus Vaccine 0.5 mL RxNorm: 07/13/2011 No longer Active Pneumovax 23 25 mcg/0.5 mL Injection RxNorm: 523788 Milliliter 07/13/2011 No longer Active Immunizations Vaccine Codes Date Status Influenza CVX: 141 07/06 completed Influenza CVX: 141 07/05 completed Influenza CVX: 141 07/22 completed Influenza CVX: 141 09/17 completed Influenza CVX: 141 10/13 completed Influenza CVX: 141 07/13 completed Pneumococcal (Adult) CVX: 33 07/13/2011 completed Assessments Condition Codes Effectiv e Dates Otalgia, right ear ICD-10: H92.01 ICD-9: 388.70 01/01/2019 Gastro-esophageal reflux disease without esophagitis ICD-10: K21.9 [...] 02/03/2012 VITAMIN DEFICIENCY ICD-9: 269.2 11/04/2011 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/13/2011 Postprandial bloating ICD-9: 787.3 07/13/2011 Seasonal allergies ICD-9: 477.9 07/13/2011 VAC STREP PNEUMONIAE-FLU ICD-9: V06.6 07/13/2011 Reason For Visit Reason For Visit Effective Dates Notes earache 01/01/2019 myalgias 12/18/2018 low back pain [...] Ord64 K 3.8 mEq/L 12/06/2016 Comp Metabolic Sql285 NA 134 mEq/L 12/03/2016 Comp Metabolic Asl954 K Specimen 3+ Hemolyzed mEq/L 12/04/19 17 Comp Metabolic Dou007 CL 106 mEq/L 12/03/2016 Comp Metabolic Dmr930 CO2 20.0 mEq/L 12/03/2016 Comp Metabolic Rxo362 AN ION GAP 16 12/03/2016 Comp Metabolic Tmy908 GL UCOSE 93 mg/dL 12/03/2016 Comp Metabolic Bsg567 Cr eat 0.8 mg/dL 12/03/2016 Comp Metabolic Osx568 eG FR 73 ml/min/1.73m2 12/03 Comp Metabolic Mvl539 BUN 14 mg/dL 12/03/2016 Comp Metabolic Ftp954 B/ C Ratio 17.1 Ratio 12/03/2016 Comp Metabolic Yew559 CA LCIUM 9.3 mg/dL 12/03/2016 Comp Metabolic Bjm417 AL K PHOS 63 U/L 12/03/2016 Comp Metabolic Ryt130 T(SGOT) 69 U/L 12/03/2016 Comp Metabolic Hll381 AL T(SGPT) 33 U/L 12/03/2016 Comp Metabolic Tau808 BI LI T 1.0 mg/dL 12/03/2016 Comp Metabolic Ntp703 AL BUMIN 4.3 g/dL 12/03/2016 Comp Metabolic Hgo355 TP RO 6.7 g/dL 12/03/2016 Comp Metabolic Uxm666 GL OB 2.4 g/dL 12/03/2016 Comp Metabolic Rgc555 A/ G Ratio 1.7 Ratio 12/03/2016 Comp Metabolic Yoe086 Os mo 268 mOsmo 12/03/2016 Comp Metabolic Vrn705 NA 138 mEq/L 12/18/2015 Comp Metabolic Ozb388 K 4.1 mEq/L 12/18/2015 Comp Metabolic Oqm341 CL 104 mEq/L 12/18/2015 Comp Metabolic Myi104 CO2 22.0 mEq/L 12/18/2015 Comp Metabolic Yxq476 AN ION GAP 16 12/18/2015 Comp Metabolic Hkp927 GL UCOSE 89 mg/dL 12/18/2015 Comp Metabolic Cja287 Cr eat 0.6 mg/dL 12/18/2015 Comp Metabolic Heb033 eG FR 99 ml/min/1.73m2 12/17 Comp Metabolic Oex052 BUN 15 mg/dL 12/18/2015 Comp Metabolic Jzu210 B/ C Ratio 23.8 Ratio 12/18/2015 Comp Metabolic Pxo976 CA LCIUM 10.4 mg/dL 12/18/2015 Comp Metabolic Wqo347 AL K PHOS 77 U/L 12/18/2015 Comp Metabolic Mtm090 T(SGOT) 19 U/L 12/18/2015 Comp Metabolic Crv741 AL T(SGPT) 17 U/L 12/18/2015 Comp Metabolic Kyv991 BI LI T 0.8 mg/dL 12/18/2015 Comp Metabolic Ant349 AL BUMIN 4.3 g/dL 12/18/2015 Comp Metabolic Bry990 TP RO 6.7 g/dL 12/18/2015 Comp Metabolic Jgg308 GL OB 2.4 g/dL 12/18/2015 Comp Metabolic Zob677 A/ G Ratio 1.7 Ratio 12/18/2015 Comp Metabolic Kcm161 Os mo 276 mOsmo 12/18/2015 Cbc With [...] 29.5 pg 12/18/2015 Cbc With Differential Ord2 [place]% 9.4 % 12/18/2015 Cbc With Differential Ord2 [...] 2.57 K/ul 12/18/2015 Cbc With Differential Ord2 [place] ABS# 0.8 K/ul 12/18/2015 Cbc With Differential Ord2 Eos ABS# 0.1 K/ul 12/18/2015 Cbc With Differential Ord2 Baso ABS# 0.0 K/ul 12/18/2015 Cbc With Differential Ord2 New Analyzer Notice Please note new ref ranges s tarting 10-15-2015 due to implemntation of new five part differential hematolgy analyzer. 12/18/2015 Total T3 Ord42 TT3 1.0 ng/ml 07/10/2015 Free T4 Rrs632 FREE T4 0.90 ng/dL 07/09/2015 Free T3 Czd473 Free T3 2.92 pg/ml 07/09/2015 Tsh Ord6 hTSH II 1.18 uIU/mL 07/09/2015 URINALYSIS NONAUTO W/O SCOPE 89452 Specific [place] 1.005 DateTime(Free Text in Aprima) URINALYSIS NONAUTO W/O SCOPE 86594 PH 6 DateTime(Free Text in Aprima) URINALYSIS NONAUTO W/O SCOPE 02950 GLUCOSE neg DateTime(Free Dano t in Aprima) URINALYSIS NONAUTO W/O SCOPE 79122 Protein neg DateTime(Free Dano t in Aprima) URINALYSIS NONAUTO W/O SCOPE 21891 Blood neg DateTime(Free Dano t in Aprima) URINALYSIS NONAUTO W/O SCOPE 59501 Bilirubin neg DateTime(Free Dano t in Aprima) URINALYSIS NONAUTO W/O SCOPE 29950 Ketones neg DateTime(Free Dano t in Aprima) URINALYSIS NONAUTO W/O SCOPE 78912 Urobilinogen neg DateTime(Free Text in Apr) URINALYSIS NONAUTO W/O SCOPE 72959 Nitrite neg DateTime(Free Dano t in Apr) URINALYSIS NONAUTO W/O SCOPE 30709 Leukocytes neg DateTime(Free Text in Apr) Review of Systems System Result Effective Dates Constitutional No recent illness 01/01/2019 Constitutional No [...] No constipation 02/13/2016 Neurologic dizziness Neurologic headache 05/12/2015 Constitutional No recent illness 01/13/2016 Constitutional No [...] accomodation 07/05/2017 None Full Exam - General 1995 Ears/Nose/Throat lips/teeth/gingiva Overall: benign lips 07/05/2017 None [...] exam 09/20/2012 None Full Exam - General 1995 Constitutional general appearance Overall: well developed 06/08/2012 [...] size 02/03/2012 None Full Exam - General 1995 [...] 1995 Ears/Nose/Throat external ear Overall: no masses 11/04/2011 [...] sounds 11/04/2011 None Full Exam - General 1995 Musculoskeletal lower extremity Inspection - lower leg: normal appearance 11/04/2011 None Full Exam - General 1995 Musculoskeletal [...] Formatting Model/CDA Sections, Assigned to/Kimberley Fagan CPT-4: [id number] 07/06/2018 ADMIN INFLUENZA VIRU S VAC CPT-4: G0008 07/05/2017 FLU VACC PRSV FREE I NC ANTIG CPT-4: 91146 07/05/2017 THER/PROPH/DIAG INJ SC/IM CPT-4: 34652 11/05/2016 TRIAMCINOLONE ACET I [place] NOS CPT-4: J3301 11/05/2016 TRIAMCINOLONE ACET I [place] NOS CPT-4: J3301 09/16/2014 DRAIN/INJECT JOINT/B URSA CPT-4: 95861 09/16/2014 KETOROLAC TROMETHAMI NE INJ CPT-4: J1885 03/20/2014 URINALYSIS NONAUTO W /O SCOPE CPT-4: 81266 12/10/2013 PRESCRIP TRANSMIT A ERX SY CPT-4: G8553 09/17/2013 PRESCRIP TRANSMIT A ERX SY CPT-4: G8553 06/08/2012 TRIAMCINOLONE ACET I [place] NOS CPT-4: J3301 03/16/2012 INJ TRIGGER POINT 1/ 2 MUSCL CPT-4: 71705 03/16/2012 PRESCRIP TRANSMIT A ERX SY CPT-4: G8553 03/16/2012 ADMIN INFLUENZA VIRU S VAC CPT-4: G0008 07/13/2011 FLULAVAL VACC, 3 YRS & >, IM CPT-4: Q2036 07/13/2011 ADMIN PNEUMOCOCCAL V ACCINE SNOMED CT: 80105744 CPT-4: G0009 07/13/2011 Pneumococcal Polysac charide Vaccine, 23-Valent, Ad CPT-4: 40610 07/13/2011 Vital Signs Date Vital 01/01/2019 Blood Pressure 1: 138/80 Code: 8480-6 BMI: 36.3 Code: 07215-4 Heart Rate 1: 64 bpm Height: 5'3" SpO2: 98% Weight: 205 lbs 12/18/2018 Blood Pressure 1: 120/62 Code: 8480-6 BMI: 36.0 Code: 67540-7 Heart Rate 1: 67 bpm Height: 5'3" SpO2: 97% Weight: 203 lbs 09/18/2018 Blood Pressure 1: 126/70 Code: 8480-6 BMI: 36.3 Code: 43985-4 Heart Rate 1: 58 bpm Height: 5'3" SpO2: 98% Weight: 205 lbs 08/31/2018 Blood Pressure 1: 148/76 Code: 8480-6 BMI: 37.0 Code: 62641-9 Heart Rate 1: 60 bpm Height: 5'3" SpO2: 98% Weight: 209 lbs 08/14/2018 Blood Pressure 1: 140/80 Code: 8480-6 BMI: 37.2 Code: 76353-4 Heart Rate 1: 76 bpm Height: 5'3" SpO2: 96% Weight: 210 lbs 05/22/2018 Blood Pressure 1: 150/62 Code: 8480-6 BMI: 36.7 Code: 60229-2 Heart Rate 1: 74 bpm Height: 5'3" SpO2: 98% Weight: 207 lbs 11/18/2017 Blood Pressure 1: 122/66 Code: 8480-6 BMI: 35.8 Code: 93721-3 Heart Rate 1: 59 bpm Height: 5'3" SpO2: 97% Weight: 202 lbs 08/03/2017 Blood Pressure 1: 122/60 Code: 8480-6 BMI: 36.0 Code: 97602-6 Heart Rate 1: 60 bpm Height: 5'3" SpO2: 97% Weight: 203 lbs 07/05/2017 Blood Pressure 1: 140/76 Code: 8480-6 BMI: 36.0 Code: 89048-5 Heart Rate 1: 58 bpm Height: 5'3" SpO2: 98% Weight: 203 lbs 12/02/2016 Blood Pressure 1: 122/70 Code: 8480-6 BMI: 34.4 Code: 03337-1 Heart Rate 1: 66 bpm Height: 5'3" SpO2: 99% Temperature: 36.4 (C ) / 97.5 (F) Weight: 194 lbs 11/22/2016 Blood Pressure 1: 102/60 Code: 8480-6 BMI: 34.2 Code: 13332-0 Heart Rate 1: 110 bpm Height: 5'3" SpO2: 98% Temperature: 36.7 (C ) / 98.0 (F) Weight: 193 lbs 11/05/2016 Blood Pressure 1: 140/62 Code: 8480-6 BMI: 36.1 Code: 25124-8 Heart Rate 1: 102 bpm Height: 5'3" SpO2: 97% Temperature: 37.1 (C ) / 98.7 (F) Weight: 204 lbs 07/22/2016 Blood Pressure 1: 158/80 Code: 8480-6 Blood Pressure 1: 160/76 Code: 8480-6 BMI: 36.8 Code: 91687-6 Heart Rate 1: 56 bpm Height: 5'3" SpO2: 98% Weight: 208 lbs 05/19/2016 Blood Pressure 1: 150/78 Code: 8480-6 Blood Pressure 1: 122/69 Code: 8480-6 BMI: 37.0 Code: 52312-6 Heart Rate 1: 61 bpm Height: 5'3" SpO2: 98% Weight: 209 lbs 02/13/2016 Blood Pressure 1: 140/76 Code: 8480-6 BMI: 36.8 Code: 24348-9 Heart Rate 1: 64 bpm Height: 5'3" SpO2: 97% Weight: 208 lbs 01/13/2016 Blood Pressure 1: 170/70 Code: 8480-6 BMI: 36.8 Code: 71928-6 Heart Rate 1: 65 bpm Height: 5'3" SpO2: 95% Weight: 208 lbs 01/02/2016 Blood Pressure 1: 150/88 Code: 8480-6 BMI: 36.8 Code: 78113-9 Heart Rate 1: 61 bpm Height: 5'3" SpO2: 98% Weight: 208 lbs 12/18/2015 Blood Pressure 1: 148/90 Code: 8480-6 BMI: 37.6 Code: 26176-6 Heart Rate 1: 64 bpm Height: 5'3" SpO2: 96% Weight: 212 lbs 09/08/2015 Blood Pressure 1: 130/88 Code: 8480-6 BMI: 37.0 Code: 61431-0 Heart Rate 1: 62 bpm Height: 5'3" SpO2: 97% Weight: 209 lbs 07/09/2015 Blood Pressure 1: 142/82 Code: 8480-6 BMI: 36.4 Code: 52904-5 Heart Rate 1: 66 bpm Height: 5'3" SpO2: 97% Weight: 205 lbs 5 oz 01/16/2015 Blood Pressure 1: 122/80 Code: 8480-6 BMI: 35.6 Code: 79024-6 Heart Rate 1: 67 bpm Height: 5'3" SpO2: 98% Weight: 201 lbs 01/03/2015 Blood Pressure 1: 122/70 Code: 8480-6 BMI: 35.6 Code: 17936-5 Heart Rate 1: 61 bpm Height: 5'3" Respiratory Rate: 16 bpm SpO2: 98% Weight: 201 lbs 09/16/2014 Blood Pressure 1: 132/78 Code: 8480-6 BMI: 34.9 Code: 99131-5 Heart Rate 1: 56 bpm Height: 5'3" Weight: 197 lbs 08/15/2014 Blood Pressure 1: 152/80 Code: 8480-6 Blood Pressure 2: 160/82 Code: 8480-6 BMI: 34.0 Code: 08034-8 Heart Rate 1: 75 bpm Height: 5'3" Weight: 192 lbs 06/12/2014 Blood Pressure 1: 136/82 Code: 8480-6 BMI: 34.9 Code: 10656-0 Heart Rate 1: 58 bpm Height: 5'3" SpO2: 96% Weight: 197 lbs 03/20/2014 Blood Pressure 1: 140/72 Code: 8480-6 BMI: 34.9 Code: 54093-1 Heart Rate 1: 60 bpm Height: 5'3" Weight: 197 lbs 12/10/2013 Blood Pressure 1: 132/78 Code: 8480-6 BMI: 35.1 Code: 52164-3 Heart Rate 1: 68 bpm Height: 5'3" Weight: 198 lbs 09/17/2013 Blood Pressure 1: 128/78 Code: 8480-6 BMI: 34.9 Code: 83671-1 Heart Rate 1: 68 bpm Height: 5'3" Weight: 197 lbs 05/21/2013 Blood Pressure 1: 128/82 Code: 8480-6 BMI: 35.6 Code: 55754-6 Heart Rate 1: 80 bpm Height: 5'3" Weight: 201 lbs 01/17/2013 Blood Pressure 1: 138/72 Code: 8480-6 BMI: 36.7 Code: 28226-8 Heart Rate 1: 60 bpm Height: 5'3" [...] 1: 140/78 Code: 8480-6 BMI: 40.0 Code: 98829-7 Heart Rate 1: 64 bpm Height: 5'3" Respiratory Rate: 16 bpm Weight: 226 lbs 11/04/2011 Blood Pressure 1: 136/76 Code: 8480-6 Heart Rate 1: 68 bpm Respiratory Rate: 16 bpm Weight: 226 lbs 07/13/2011 Blood Pressure 1: 142/80 Code: 8480-6 BMI: 40.0 Code: 48054-2 Heart Rate 1: 60 bpm Height: 5'4" Respiratory Rate: 16 bpm Weight: 233 lbs Functional Status No Functional Status data History of Present Illness Symptom Name Status Resu lt Effective Date Notes Location right ear 01/01/2019 None Quality acute [...] intermi ttent 09/08/2015 None arm pain Quality [facility] 09/08/2015 None arm pain Quality [place] [...] ago 03/16/2012 None shoulder pain Quality [place] 03/16/2012 None shoulder pain Quality sh kate [...] Encounters Encounter Performer Loca tion Codes Date ([id number]) 30306 EST. P ATIENT, LEVEL III Diagnosis: Otalgia, right ear[ICD10: H92.01] [facility] CPT- 4: 75170 01/01/2019 ([id number]) 19201 EST. 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 P ATIENT, LEVEL III Diagnosis: Nasal congestion[ICD10: R09.81] Diagnosis: Other allergic rhinitis[ICD10: J30.89] Юлия Manuel MD, [facility] CPT-4: 61277 08/31/2018 ([id number]) 12864 EST. P ATIENT, LEVEL III Diagnosis: Acute recurrent maxillary sinusitis[ICD10: J01.01] Юлия Manuel MD, [facility] CPT-4: 65288 08/14/2018 35433 EST. PATIENT, LEVEL III Diagnosis: Pain in right shoulder[ICD10: M25.511] Diagnosis: Pain in right arm[ICD10: M79.601] Willow Manuel MD, [facility] CPT-4: 33363 05/22/2018 ([id number]) 45671 EST. 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 PATIENT, LEVEL III Diagnosis: Other specified intestinal infections[ICD10: A08.8] Willow Manuel MD, [facility] CPT-4: 96961 08/03/2017 ([id number]) 21401 EST. 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 P ATIENT, LEVEL III Diagnosis: Essential (primary) hypertension[ICD10: I10] Юлия Manuel MD, [facility] CPT-4: 47428 12/02/2016 ([id number]) 00690 EST. P ATIENT, LEVEL III Diagnosis: Essential (primary) hypertension[ICD10: I10] Diagnosis: Allergic rhinitis due to pollen[ICD10: J30.1] Giuliana Manuel MD, [facility] CPT-4: 00916 11/22/2016 01281 EST. PATIENT, LEVEL III Diagnosis: Acute laryngopharyngitis[ICD10: J06.0] Diagnosis: Influenza due to unidentified influenza virus with other respiratory manifestations[ICD10: J11.1] Willow Manuel MD, [facility] CPT-4: 51394 11/05/2016 ([id number]) 51015 EST. P ATIENT, LEVEL III Diagnosis: Gastro-esophageal reflux disease without esophagitis[ICD10: K21.9] Diagnosis: Essential (primary) hypertension[ICD10: I10] Giuliana Manuel MD[facility] CPT-4: 97296 07/22/2016 ([id number]) 16788 EST. P ATIENT, LEVEL IV Diagnosis: Essential (primary) hypertension[ICD10: I10] Diagnosis: Abdominal distension (gaseous)[ICD10: R14.0] Giuliana Manuel MD, [facility] CPT-4: 35338 05/19/2016 ([id number]) 98793 EST. P ATIENT, LEVEL III Diagnosis: Essential (primary) hypertension[ICD10: I10] Юлия Manuel MD, [facility] CPT-4: 31408 02/13/2016 ([id number]) 38002 EST. P ATIENT, LEVEL III Diagnosis: Essential (primary) hypertension[ICD10: I10] Юлия Manuel MD, [facility] CPT-4: 18441 01/13/2016 83999 EST. PATIENT, LEVEL IV Diagnosis: Essential (primary) hypertension[ICD10: I10] Diagnosis: Body mass index (BMI) 36.0-36.9, adult[ICD10: Z68.36] Willow Manuel MD, [facility] CPT-4: 68446 01/02/2016 ([id number]) 30454 EST. P ATIENT, LEVEL III Diagnosis: Essential (primary) hypertension[ICD10: I10] Юлия Manuel MD, [facility] CPT-4: 94497 12/18/2015 ([id number]) 73031 EST. P ATIENT, LEVEL IV Diagnosis: Essential (primary) hypertension[ICD10: I10] Diagnosis: Benign paroxysmal vertigo, bilateral[ICD10: H81.13] Diagnosis: Radiculopathy, cervical region[ICD10: M54.12] Giuliana Manuel MD, [facility] CPT-4: 53747 09/08/2015 ([id number]) 90954 EST. P ATIENT, LEVEL IV Diagnosis: Other specified nonscarring hair loss[ICD10: L65.8] Diagnosis: Myositis, unspecified[ICD10: M60.9] Diagnosis: Psoriasis, unspecified[ICD10: L40.9] Diagnosis: Essential (primary) hypertension[ICD10: I10] Giuliana Manuel MD[facility] CPT-4: 53407 07/09/2015 ([id number]) 41736 EST. P ATIENT, LEVEL III Diagnosis: ESSENTIAL HYPERTENSION[ICD9: 401.9] Giuliana Manuel MD, [facility] CPT- 4: 72215 01/16/2015 ([id number]) 95777 EST. P ATIENT, LEVEL III Diagnosis: Shoulder pain[ICD9: 719.41] Diagnosis: ESSENTIAL HYPERTENSION[ICD9: 401.9] Diagnosis: PALPITATIONS[ICD9: 785.1] Giuliana Manuel MD, [facility] CPT-4: 82439 01/03/2015 ([id number]) 38790 EST. P ATIENT, LEVEL III Diagnosis: Sacroiliitis[ICD9: 720.2] Diagnosis: Back pain[ICD9: 724.5] Diagnosis: ESSENTIAL HYPERTENSION[ICD9: 401.9] Giuliana Manuel MD, [facility] CPT- 4: 46430 09/16/2014 ([id number]) 69371 EST. P ATIENT, LEVEL IV Diagnosis: ESSENTIAL HYPERTENSION[ICD9: 401.9] Diagnosis: Arrhythmia[ICD9: 427.9] Diagnosis: Nausea[ICD9: 787.02] Giuliana Manuel MD [facility] CPT-4: 04781 08/15/2014 ([id number]) 21990 EST. P ATIENT, LEVEL IV Diagnosis: ESSENTIAL HYPERTENSION[ICD9: 401.9] Diagnosis: Back pain[ICD9: 724.5] Diagnosis: Allergic reaction[ICD9: 995.3] Giuliana Manuel MD, [facility] CPT-4: 95887 06/12/2014 ([id number]) 01684 EST. P ATIENT, LEVEL III Diagnosis: Thoracic back pain[ICD9: 724.1] Diagnosis: MYALGIA AND MYOSITIS[ICD9: 729.1] Giuliana Manuel MD, [facility] CPT-4: 99820 03/20/2014 ([id number]) 90205 EST. P ATIENT, LEVEL IV Diagnosis: HYPERLIPIDEMIA[ICD9: 272.4] Diagnosis: ESSENTIAL HYPERTENSION[SNOMED: 68799648] Diagnosis: ABDOM PAIN NOS SITE[ICD9: 789.00] Giuliana Manuel MD, [facility] CPT-4: 93377 12/10/2013 ([id number]) 41362 EST. P ATIENT, LEVEL IV Diagnosis: ESSENTIAL HYPERTENSION[SNOMED: 08123815] Diagnosis: HYPERLIPIDEMIA[ICD9: 272.4] Giuliana Manuel MD, [facility] CPT-4: 68560 09/17/2013 ([id number]) 07144 EST. P ATIENT, LEVEL IV Diagnosis: ESSENTIAL HYPERTENSION[SNOMED: 07334229] Diagnosis: OBESITY[ICD9: 278.00] Diagnosis: Back pain[ICD9: 724.5] Giuliana Manuel MD, [facility] CPT-4: 16722 05/21/2013 ([id number]) 24737 EST. P ATIENT, LEVEL IV Diagnosis: ESSENTIAL HYPERTENSION[SNOMED: 47628255] Diagnosis: HYPERLIPIDEMIA[ICD9: 272.4] Diagnosis: Abdominal pain[ICD9: 789.00] Diagnosis: BENIGN PAROXYSMAL VERTIGO[ICD9: 386.11] Giuliana Manuel MD, [facility] CPT-4: 56482 01/17/2013 ([id number]) 85688 EST. P ATIENT, LEVEL IV Diagnosis: ESSENTIAL HYPERTENSION[SNOMED: 74444648] Diagnosis: BENIGN PAROXYSMAL VERTIGO[ICD9: 386.11] Diagnosis: Hair loss[ICD9: 704.00] Diagnosis: Vitamin d deficiency[ICD9: 268.9] Diagnosis: Bleeding from the nose[ICD9: 784.7] Giuliana Manuel MD, [facility] CPT- 4: 75265 09/20/2012 33208 EST. PATIENT, LEVEL IV Diagnosis: BPPV (benign paroxysmal positional vertigo)[ICD9: 386.11] Diagnosis: HYPERLIPIDEMIA[ICD9: 272.4] Diagnosis: ESSENTIAL HYPERTENSION[SNOMED: 05825659] Giuliana Manuel MD, [facility] CPT-4: 50407 06/08/2012 ([id number]) 04172 [facility]: BPPV (benign paroxysmal positional vertigo)[ICD9: 386.11] Diagnosis: Diverticulitis[ICD9: 562.11] Diagnosis: Abdominal pain[ICD9: 789.00] Giuliana Manuel MD, [facility] CPT-4: 13580 04/10/2012 ([id number]) 81937 EST. [facility] Diagnosis: Neck pain[ICD9: 723.1] Diagnosis: Acute upper back pain[ICD9: 724.1] Giuliana Manuel MD, [facility] CPT- 4: 64986 03/16/2012 ([id number]) 81116 EST. [facility] Diagnosis: HYPERLIPIDEMIA[ICD9: 272.4] Diagnosis: ESSENTIAL HYPERTENSION[SNOMED: 35148741] Diagnosis: Constipation - functional[ICD9: 564.09] Giuliana Manuel MD, [facility] CPT-4: 78175 02/03/2012 ([id number]) 25782 EST. P ATIENT, LEVEL IV Diagnosis: HYPERLIPIDEMIA[ICD9: 272.4] Diagnosis: VITAMIN DEFICIENCY[ICD9: 269.2] Diagnosis: ESSENTIAL HYPERTENSION[SNOMED: 98526209] Giuliana Manuel MD, [facility] CPT-4: 32569 11/04/2011 16813 EST. PATIENT, LEVEL IV Diagnosis: Abdominal pain[ICD9: 789.00] Diagnosis: Postprandial bloating[ICD9: 787.3] Diagnosis: VAC STREP PNEUMONIAE-FLU[ICD9: V06.6] Diagnosis: OBESITY[ICD9: 278.00] Diagnosis: DIETARY SURVEIL/[employer][ICD9: V65.3] Diagnosis: Seasonal allergies[ICD9: 477.9] Giuliana Manuel MD, [facility] CPT-4: 18096 07/13/2011 Plan of Care Planned Activity Notes C odes Status Date Visit Plan: Right ear pain -concern for trigeminal neuralgia -she does have some sinus tenderness -will give kenalog injection today - continue anti histamine daily -monitor symptoms and call if persistent, worsen o r new symptoms develop. Patient verbalized understanding of plan. 01/01/2019 Patient Education: Patient Medication Summary Completed [...] not improving. 12/18/2018 Appointment: Giuliana Manuel WPtel: [address] [place], [place] [address] [place] (15 min) Moderate 12/18/2018 Patient Education: Patient Medication Summary Completed 12/18/2018 Visit Plan: Hypertension - well con anyi - continue with current medications, continue with [...] back. 09/18/2018 App[facility]ment: [phone] (15 min) Moderate 09/18/2018 Patient Education: Patient [...] spray. 08/31/2018 App[facility]ment[phone] [place] (15 min) Moderate 08/31/2018 Patient Education: [...] improve. 05/22/2018 Appointment: Willow Garcia WPtel: [phone] [facility] (15 min) Moderate 05/22/2018 Patient Education: [...] improving. 11/18/2017 Appointment: Giuliana Manuel WPtel: [phone] [facility] (15 min) Moderate 11/18/2017 Patient Education: Patient Medication Summary Completed 11/18/2017 Appointment: Giuliana Manuel WPtel: [phone] [facility] (15 min) Moderate 11/07/2017 Visit Plan: [...] improved. 08/03/2017 Appointment: Willow Garcia WPtel: [phone] [facility] (30 min) Complex 08/03/2017 Patient Education: [...] daily. 07/05/2017 Appointment: Giuliana Manuel WPtel: [phone] [facility] (15 min) Moderate 07/05/2017 Patient Education: Patient Medication Summary Completed 07/05/2017 Patient Education: Obesity Completed 07/05/2017 Appointment: Giuliana Manuel WPtel: [phone] [facility] (15 min) Moderate 06/27/2017 Appointment: Giuliana Manuel WPtel: [phone] [facility] (15 min) Moderate 06/21/2017 Appointment: Юлия Rojas WPtel: [phone] [phone] [place] (30 min) Complex 12/23/2016 Visit Plan: Hypertension - - the sharron ramirezjennifer's medications have been modified as documented in [...] RESTART HCTZ 12/02/2016 Appointment: Юлия Rojas WPtel: [phone] (30 min) Complex 12/02/2016 Patient Education: [...] 7 days 11/22/2016 Appointment: Giuliana Manuel WPtel: [facility] (15 min) Moderate 11/22/2016 Patient Education: Patient Medication Summary Completed 11/22/2016 Patient Education: Obesity Completed 11/22/2016 Visit Plan: Influenza - pt started on tamiflu - pt to start on anti-inflammatories, tylenol and monitor symptoms. Pt to call if not improving. Pt to alert any close contacts as to illness. 11/05/2016 Appointment: Willow Garcia WPtel: [facility] (30 min) Complex 11/05/2016 Patient Education: Patient [...] on carafate 07/22/2016 Appointment: Giul[facility] Manuel [facility]el[facility] [address] [facility] (15 min) Moderate 07/22/2016 Patient Education: Patient Medication Summary Completed 07/22/2016 Patient Education: Obesity Completed 07/22/2016 Care Plan: Referral Order SNOMED-CT : [id number] Pending 07/22/2016 Visit Plan: Hypertension - well [...] Obesity Completed 05/19/2016 Appointment: Giuliana Manuel WPtel: [facility] [place] (15 min) Moderate 05/17/2016 Visit Plan: Hypertension - well con trolled - continue with current medications, continue with no added salt diet. Pt has been encouraged to exercise daily. The pt has been advised to call the office if there are any acute concerns about change in blood pressure readings at home. 02/13/2016 Appointment: Юлия Rojas [facility]Ptel[facility] [phone] [phone] [place] (30 min) Complex 02/13/2016 Patient Education: [...] 12/18/2015 Appointment: Giuliana Manuel [facility]Ptel[facility] [phone] [facility] (15 min) Moderate 12/08/2015 Referral: Jared Lafleur [address] [facility] D [id number] Referral Completed 10/17/2015 Visit Plan: Hypertension - [...] stress test. 09/08/2015 Appointment: Giuliana Manuel WPtel: [address] [place], [place] [phone] (15 min) Moderate 09/08/2015 Patient Education: Patient Medication Summary Completed 09/08/2015 Patient Education: .Cervicalgia Neck Pain Completed 09/08/2015 Care Plan: Referral Order SNOMED-CT : [id number] Ordered 09/08/2015 Visit Plan: Hypertension - uncontro [...] checked today. 07/09/2015 Appointment: Giuliana Manuel WPtel: [address] [place], [place] [phone] (15 min) Moderate 07/09/2015 Patient Education: Patient Medication Summary Completed 07/09/2015 Appointment: Giuliana Manuel WPtel: [address] [place], [place] [phone] (15 min) Moderate 07/07/2015 Appointment: Giuliana Manuel WPtel: [address] [place], [place] [phone] Follow up 03/17/2015 Visit Plan: Hypertension - well con trolled - continue with current medications, continue with no added salt diet. Pt has been encouraged to exercise daily. The pt has been advised to call the office if there are any acute concerns about change in blood pressure readings at home. Palpitations resolved. 01/16/2015 Appointment: Giuliana Manuel WPtel: [address] [place], [place] [phone] Other 01/16/2015 Patient Education: Patient Medication Summary [...] pain symptoms. 01/03/2015 Appointment: Giuliana Manuel WPtel: [address] [place], [place] [phone] Follow up 01/03/2015 Patient Education: Patient Medication [...] Hypertension Completed 09/16/2014 Appointment: Giuliana Manuel WPtel: [address] [place], [place] [phone] Follow up 09/09/2014 Visit Plan: Hypertension - [...] symptoms worsen. 08/15/2014 Appointment: Giuliana Manuel WPtel: [address] [place] [address] Sick 08/15/2014 Patient Education: Patient Medication Summary Completed 08/15/2014 Patient Education: Hypertension Completed 08/15/2014 Care Plan: Referral Order SNOMED-CT : [id number] Ordered 08/15/2014 Appointment: Giuliana Manuel WPtel: [address] [place], [place] [phone] Follow up 06/18/2014 Visit Plan: [facility] Rash - reaction [...] at home. 06/12/2014 Appointment: Giuliana Manuel WPtel: [facility] Sick 06/12/2014 Patient Education: Patient Medication Summary Completed 06/12/2014 Patient Education: Hypertension Completed 06/12/2014 Care Plan: Referral Order SNOMED-CT : [id number] Ordered 06/12/2014 Visit Plan: Hypertension - well [...] xrays. 03/20/2014 Appointment: Giul[facility]Ptel[phone] Follow up 03/20/2014 Patient Education: Patient [...] UTI 12/10/2013 Appointment: Giul[facility] Manuel [facility]Ptel: [phone] Follow up 12/10/2013 Patient Education: Patient [...] weekly. 09/17/2013 Appointment: Giuliana Manuel WPtel: [phone] [facility] Follow up 09/17/2013 Patient Education: [...] rub. 05/21/2013 Appointment: Giuliana Manuel WPtel: [address] [facility] Follow up 05/21/2013 Patient Education: Patient [...] the vertigo. 01/17/2013 Appointment: Giuliana Manuel WPtel: [address] [place] [address] Follow up 01/17/2013 Patient Education: Patient Medication [...] if needed. 09/20/2012 Appointment: Giuliana Manuel WPtel: [address] [place], [place] [phone] Follow up 09/20/2012 Patient Education: Patient Medication [...] begin. 06/08/2012 Appointment: Giul[facility] Manuel [facility]Ptel: [phone] Follow up 06/08/2012 Patient Education: Patient [...] or popcorn. 04/10/2012 Appointment: Giuliana Manuel WPtel: [facility] Other 04/10/2012 Patient Education: Patient Medication Summary [...] by Tuesday. 03/16/2012 Appointment: Giuliana Manuel WPtel: [address] [place], [place] [phone] Other 03/16/2012 Patient Education: Patient Medication Summary [...] regimen. 02/03/2012 Appointment: Giul[facility] Manuel [facility]Ptel[phone] [facility] Other 02/03/2012 Patient Education: Patient Medication [...] a week. 11/04/2011 Appointment: Giul[facility] Manuel [facility]Ptel[phone] Follow up 11/04/2011 Patient Education: Patient [...] shot 07/13/2011 Appointment: Giuliana Manuel WPtel: [phone] [facility] Other 07/13/2011 Patient Education: Patient Medication Summary Completed 07/13/2011 Patient Education: .Gage Gallaghere tic meal planning guide Completed 07/13/2011 Referral: [facility] Referral Appointment Requested Referral: Duarte Catalan Referral Appointment Requested Referral: Dr. Willams WPtel: [address] [place], [place] [phone] Referral Initiated Referral: [facility] WPtel: [address] [facility] [place] Referral Initiated Instructions Comment Add a [...] not improve or if they worsen. . Back pain - [facility]. Rash - reaction to [...]
--- OUTSIDE RECORDS SUMMARY | 2020-01-21 14:12 | XMS REPORT | CCD ---
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 09/08/2015 Marital status Unknown M arried 07/13/[address]: 038687525 Nonsmoker 07/13/[address]: 523491509 Never drinks alcohol 07/13/2011 Allergies, Adverse Reactions, Alerts Substance Reaction Codes Entered Date Inactivated Date Status Soy Unknown 07/13/2011 No Inactive Date Active Cardizem RxNorm: 792652 05/19/2016 No Inactive Date Active Metoprolol Succinate [...] pain ICD-9: 789.00 Active 07/13/2011 Unknown 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 Active 07/13/2011 Unknown OBESITY ICD-9: [...] Abdominal pain ICD-9: 789.00 07/13/2011 Active 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 07/13/2011 Active OBESITY ICD-9: 278.00 07/13/2011 Active Postprandial bloating ICD-9: 787.3 07/13/2011 Active Seasonal allergies ICD- 9: 477.9 07/13/2011 Active VAC STREP PNEUMONIAE -FLU ICD-9: V06.6 07/13/2011 Active Medications Medication Codes Instruc tions Start Date Stop Date Sta tus Fill Instructions Kenalog 40 mg/mL karl pension for injection RxNorm: 4598420 Milliliter(s) Inj 01/01/2019 01/01/2019 In active losartan 25 mg tablet RxNorm: 134404 1 Tablet(s) PO BID 11/01/2018 10/26/2019 Active losartan 25 mg tablet RxNorm: 067169 1 Tablet(s) PO BID 11/01/2018 10/31/2018 Inactive hydrochlorothiazide 12.5 mg tablet RxNorm: 361670 TAKE 1 TABLET BY MOUT H EVERY DAY 10/02/2018 03/30/2019 Ac tive - First Attempt Ref: [id number] famotidine 40 mg tablet RxNorm: 446490 TAKE 1 TABLET BY MOUTH EVERY MORNING 10/02/2018 03/30/2019 Ac tive - First Attempt Ref: [id number] doxazosin 1 mg tablet RxNorm: 479988 TAKE 1 TABLET BY MOUTH EVERY DAY AT [facility] 10/02/2018 03/30/2019 Ac tive - First Attempt Ref: [id number] naproxen 500 mg tablet RxNorm: 897682 1 Tablet(s) PO BID 09/18/2018 09/24/2018 Inactive diclofenac 1 % topic al gel RxNorm: 715661 2 Application TOP QID 09/18/2018 11/16/2018 Inactive Kenalog 40 mg/mL karl pension for injection RxNorm: 2616704 1 Milliliter(s) Inj 08/31/2018 08/31/2018 In active clonidine HCl 0.1 mg tablet RxNorm: 439417 1/2 Tablet(s) PO BID 08/16/2018 08/10/2019 Active amoxicillin 500 mg t ablet RxNorm: 760339 1 Tablet(s) PO TID 08/14/2018 08/20/2018 Inactive losartan 25 mg tablet RxNorm: 794806 1 Tablet(s) PO BID 05/02/2018 05/01/2018 Inactive losartan 25 mg tablet RxNorm: 419354 1 Tablet(s) PO BID 05/02/2018 10/31/2018 Inactive losartan 25 mg tablet RxNorm: 422781 1 Tablet(s) PO BID 01/30/2018 05/01/2018 Inactive Vitamin D 2,000 unit capsule RxNorm: 1 Capsule(s) PO daily 11/18/2017 No Stop Date Active atenolol 25 mg tablet RxNorm: 585297 1 Tablet(s) PO daily 11/18/2017 11/12/2018 Inactive atenolol 25 mg tablet RxNorm: 094222 1 Tablet(s) PO BID managed by Dr Lafleur 11/18/2017 11/17/2017 In active clonidine HCl 0.1 mg tablet RxNorm: 092173 1/2 Tablet(s) PO BID 11/18/2017 08/15/2018 Inactive doxazosin 1 mg tablet RxNorm: 379459 1 Tablet(s) PO daily at midnight 11/18/2017 10/01/2018 In active midnight losartan 25 mg tablet RxNorm: 268995 1 Tablet(s) PO BID 11/18/2017 01/29/2018 Inactive hydrochlorothiazide 12.5 mg tablet RxNorm: 958119 1 Tablet(s) PO daily 11/18/2017 10/01/2018 In active famotidine 40 mg tablet RxNorm: 042808 1 Tablet(s) PO daily TAKE 1 TABLET BY [facility] EVERY MORNING 11/18/2017 10/01/2018 Inactive - Ref: [id number] hydrochlorothiazide 12.5 mg tablet RxNorm: 460301 1 Tablet(s) PO daily 10/28/2017 11/17/2017 In active famotidine 40 mg tablet RxNorm: 907245 TAKE 1 TABLET BY MOUTH EVERY MORNING 10/04/2017 11/17/2017 In active - Ref: [id number] clonidine HCl 0.1 mg tablet RxNorm: 468516 1/2 Tablet(s) PO BID 07/05/2017 11/17/2017 Inactive doxazosin 1 mg tablet RxNorm: 146707 1 Tablet(s) PO daily at midnight 07/05/2017 11/17/2017 In active midnight doxazosin 1 mg tablet RxNorm: 655250 1 Tablet(s) PO BID 12/02/2016 2017 Inactive midnight prednisone 20 mg tablet RxNorm: 790552 3 Tablet(s) PO daily 11/22/2016 11/26/2016 Inactive Tessalon Perles 100 mg capsule RxNorm: 374651 1 -2 Capsule(s) PO TI D as needed cough 11/19/2016 12/31/2018 Inactive Zithromax Z-Jfef 250 mg tablet RxNorm: 337007 1 Tablet(s) PO UD 11/19/2016 12/01/2016 Inactive z pack as directed Tamiflu 75 mg capsule RxNorm: 511605 1 Capsule(s) PO BID 11/05/2016 11/09/2016 Inactive Kenalog 40 mg/mL karl pension for injection RxNorm: 3754575 Milliliter(s) Inj 11/05/2016 11/05/2016 In active Tessalon Perles 100 mg capsule RxNorm: 346150 1 -2 Capsule(s) PO TI D as needed cough 11/04/2016 11/18/2016 Inactive famotidine 40 mg tablet RxNorm: 583904 1 Tablet(s) PO QAM 10/25/2016 10/03/2017 Inactive famotidine 40 mg tablet RxNorm: 927911 1 Tablet(s) PO QAM 08/02/2016 10/24/2016 Inactive Carafate 1 gram tablet RxNorm: 595815 1 Tablet(s) PO TID DISSOLVE THE PILL IN 10ML OF WATER 07/22/2016 10/19/2016 Inactive clonidine HCl 0.1 mg tablet RxNorm: 697186 1 Tablet(s) PO BID an d 1 tablet as needed 07/22/2016 12/01/2016 Inactive Cinnamon 1000 mg RxNorm: 1 PO daily 05/19/2016 No Stop Date Active aspirin 81 mg tablet ,delayed release RxNorm: 813200 1 Tablet(s) PO QHS 05/19/2016 11/27/2018 In active losartan 25 mg tablet RxNorm: 652934 1 Tablet(s) PO BID 05/19/2016 11/17/2017 Inactive atenolol 25 mg tablet RxNorm: 509225 1.5 Tablet(s) PO BID 02/13/2016 07/21/2016 Inactive losartan 25 mg tablet RxNorm: 021701 2 Tablet(s) PO BID 01/13/2016 05/11/2016 Inactive Cardizem CD 240 mg c apsule,extended release RxNorm: 604610 1 Capsule(s) PO daily 01/13/2016 02/12/2016 In active losartan 100 mg tablet RxNorm: 779316 1/2 Tablet(s) PO BID 01/08/2016 01/12/2016 Inactive losartan 25 mg tablet RxNorm: 101753 2 Tablet(s) PO QPM 1 Tablet(s) PO QPM 12/18/2015 01/07/2016 In active atenolol 25 mg tablet RxNorm: 640281 1.5 Tablet(s) PO BID TAKE ONE TABLET BY MOUTH TWICE A DAY 12/18/2015 01/12/2016 Inactive atenolol 25 mg tablet RxNorm: 998777 Tablet(s) TAKE ONE TABLET BY MOUTH TWICE A DAY 11/14/2015 12/17/2015 Inactive losartan 25 mg tablet RxNorm: 827887 Tablet(s) 1 Tablet(s) PO QPM 11/14/2015 12/17/2015 Inactive spironolactone 25 mg tablet RxNorm: 101284 1 Tablet(s) PO daily 11/14/2015 12/14/2015 Inactive atenolol 25 mg tablet RxNorm: 140449 TAKE ONE TABLET BY MOUTH TWICE A DAY 08/07/2015 11/13/2015 In active atenolol 25 mg tablet RxNorm: 768199 1 Tablet(s) PO daily TAKE ONE TABLET BY MOUTH TWICE DAILY 08/06/2015 08/06/2015 Inactive Generic For:TENORMIN 25 MG TABLET 05/05/2015 10:00:22 AM atenolol 25 mg tablet RxNorm: 150228 1 Tablet(s) PO daily TAKE ONE TABLET BY MOUTH TWICE DAILY 08/06/2015 08/05/2015 Inactive Generic For:TENORMIN 25 MG TABLET 05/05/2015 10:00:22 AM betamethasone diprop ionate 0.05 % topical ointment RxNorm: 872970 1 TOP TID as needed rash 07/09/2015 05/18/2016 Inactive betamethasone diprop ionate 0.05 % topical ointment RxNorm: 172600 1 TOP TID as needed rash 07/09/2015 07/08/2015 Inactive spironolactone 25 mg tablet RxNorm: 878105 1 Tablet(s) PO daily 07/09/2015 07/08/2015 Inactive spironolactone 25 mg tablet RxNorm: 634780 1 Tablet(s) PO daily 07/09/2015 11/13/2015 Inactive losartan 25 mg tablet RxNorm: 336930 Tablet(s) 1 Tablet(s) PO QPM 05/27/2015 11/13/2015 Inactive atenolol 25 mg tablet RxNorm: 334827 TAKE ONE TABLET BY MOUTH TWICE DAILY 05/05/2015 08/05/2015 In active Generic For:TENORMIN 25 MG TABLET 05/05 10:00:22 AM hydrochlorothiazide 25 mg tablet RxNorm: 276608 1/2 Tablet(s) PO BID 02/17/2015 07/08/2015 Inactive Generic For:HYDRODIURIL 25 MG TABLET sulfamethoxazole 800 mg-trimethoprim 160 mg tablet RxNorm: 007296 1 Tablet(s) PO BID 01/16/2015 01/25/2015 Inactive losartan 25 mg tablet RxNorm: 704539 1 Tablet(s) PO QPM 12/09/2014 05/26/2015 Inactive Kenalog 40 mg/mL karl pension for injection RxNorm: 2334257 1 Milliliter(s) Inj 09/16/2014 09/16/2014 In active prednisone 20 mg tablet RxNorm: 228019 3 Tablet(s) PO daily 09/16/2014 09/18/2014 Inactive losartan 25 mg tablet RxNorm: 525716 1 Tablet(s) PO QPM 08/15/2014 12/08/2014 Inactive hydrochlorothiazide 25 mg tablet RxNorm: 134686 TAKE 1/2 TABLET BY [facility] TWICE DAILY 08/13/2014 02/08/2015 Inactive Generic For:HYDRODIURIL 25 MG TABLET atenolol 25 mg tablet RxNorm: 044045 TAKE ONE TABLET BY MOUTH TWICE DAILY 05/07/2014 05/01/2015 In active Generic For:TENORMIN 25 MG TABLET ketorolac 60 mg/2 mL intramuscular solution RxNorm: 404892 2 Milliliter(s) IM 03/20/2014 03/20/2014 In active hydrochlorothiazide 25 mg tablet RxNorm: 398938 Tablet(s) PO TAKE 1/2 TABLET BY MOUTH TWICE DAILY 02/14/2014 08/12/2014 Inactive Generic For:HYDRODIURIL 25 MG TABLET Generic For:HYDRODIURIL 25 MG TABLET 02/14/2014 3:45:03 PM atorvastatin 10 mg t ablet RxNorm: 535219 1 Tablet(s) PO TIW 09/17/2013 03/19/2014 Inactive atorvastatin 10 mg t ablet RxNorm: 294862 tablet oral 09/17/2013 06/04/2015 Inactive hydrochlorothiazide 25 mg tablet RxNorm: 650107 Tablet(s) PO TAKE 1/2 TABLET BY MOUTH TWICE DAILY 08/06/2013 02/13/2014 Inactive Generic For:HYDRODIURIL 25 MG TABLET Generic For:HYDRODIURIL 25 MG TABLET 08/06/2013 1:52:35 PM amoxicillin 500 mg t ablet RxNorm: 520708 2 Tablet(s) PO 2 tabl ets PO 1 hour before dental procedure. 07/26/2013 07/25/2013 Inactive amoxicillin 500 mg t ablet RxNorm: 108805 2 Tablet(s) PO 2 tabl ets PO 1 hour before dental procedure. 07/26/2013 07/26/2013 Inactive methotrexate sodium 2.5 mg tablet RxNorm: 627988 tablet oral 07/13/2013 01/15/2015 Inactive atenolol 25 mg tablet RxNorm: 962211 Tablet(s) PO TAKE ONE TABLET BY MOUTH TW ICE DAILY 05/01/2013 05/06/2014 Inactive Generic For:TENORMIN 25 MG TABLET hydrochlorothiazide 25 mg tablet RxNorm: 938669 Tablet(s) PO TAKE 1/2 TABLET BY MOUTH TWICE DAILY 11/21/2012 08/05/2013 Inactive Generic For:HYDRODIURIL 25 MG TABLET atenolol 25 mg tablet RxNorm: 065779 Tablet(s) PO TAKE ONE TABLET BY MOUTH TW ICE DAILY 10/02/2012 04/30/2013 Inactive Generic For:TENORMIN 25 MG TABLET gemfibrozil 600 mg t ablet RxNorm: 291631 1 Tablet(s) PO BID 06/08/2012 10/08/2012 Inactive meclizine 25 mg tablet RxNorm: 4221486 1 Tablet(s) PO Q4 PRN 06/08/2012 09/05/2012 Inactive prednisone 10 mg Tab RxNorm: 876714 2 Tablet(s) PO daily 03/16/2012 03/20/2012 Inactive atorvastatin 10 mg Tab RxNorm: 647185 1 Tablet(s) PO daily 12/21/2011 12/20/2011 Inactive atorvastatin 10 mg Tab RxNorm: 423837 1 Tablet(s) PO daily 12/21/2011 06/08/2012 Inactive methotrexate sodium 2.5 mg Tab RxNorm: 955327 Tablet(s) PO 11/16/2011 06/12/2012 Inactive 3 on on hydrochlorothiazide 25 mg Tab RxNorm: 107639 1/2 Tablet(s) PO BID 11/01/2011 11/24/2012 Inactive hydrochlorothiazide 12.5 mg Cap RxNorm: 703537 Capsule(s) PO 11/01/2011 06/08/2012 Inactive TAKE ONE TABLET BY MOUTH TWICE DAILY;Gen sky For:MICROZIDE 12.5 MG CAPSULE hydrochlorothiazide 25 mg Tab RxNorm: 427435 1/2 Tablet(s) PO BID 11/01/2011 11/24/2012 Inactive hydrochlorothiazide 25 mg tablet RxNorm: 745923 1/2 Tablet(s) PO BID 11/01/2011 10/31/2011 Inactive hydrochlorothiazide 25 mg Tab RxNorm: 108061 1/2 Tablet(s) PO BID 11/01/2011 10/31/2011 Inactive atenolol 25 mg tablet RxNorm: 716845 Tablet(s) PO 10/04/2011 10/01/2012 Inactive TAKE ONE TABLET BY MOUTH TWICE DAILY;Generic For:TENORMIN 25 MG TABLET hydrochlorothiazide 12.5 mg Cap RxNorm: 066573 1 Capsule(s) PO BID 09/13/2011 10/31/2011 Inactive Influenza Virus Vacc ine 0.5 mL RxNorm: IM 07/13/2011 07/13/2011 Inactive Pneumovax 23 25 mcg/ 0.5 mL Injection RxNorm: 098407 Milliliter(s) Inj 07/13/2011 07/13/2011 In active Cinnamon 1000 mg RxNorm: 2 PO daily No Start Date Active atenolol 25 mg Tab RxNorm: 496416 1 Tablet(s) PO BID No Start Date 10/03/2011 Inactive niacin ER 500 mg Cap RxNorm: 271954 1 Capsule(s) PO daily No Start Date 06/08/2012 Inactive gemfibrozil 600 mg t ablet RxNorm: 636716 1 Tablet(s) PO BID No Start Date 06/07/2012 Inactive Vitamin C 500 mg Tab RxNorm: 669694 1 Tablet(s) PO daily No Start Date 07/21/2016 Inactive Zithromax Z-Jeff 250 mg tablet RxNorm: 419308 1 Tablet(s) PO UD No Start Date 11/18/2016 Inactive z pack as directed doxazosin 1 mg tablet RxNorm: 896678 1 Tablet(s) PO BID No Start Date 12/01/2016 Inactive vitamin E (dl, aceta te) 400 unit Cap RxNorm: 355009 1 Capsule(s) PO daily No Start Date 07/21/2016 Inactive famotidine 40 mg tablet RxNorm: 651818 1 Tablet(s) PO QAM No Start Date 08/01/2016 Inactive Phenergan VC-Codeine 6.25 mg-5 mg-10 mg/5 mL syrup RxNorm: 727776 5 Milliliter(s) PO Q6 as needed No Start Date 12/31/2018 Inactive hydrochlorothiazide 25 mg Tab RxNorm: 494156 1/2 Tablet(s) PO BID No Start Date 09/12/2011 Inactive Tessalon Perles 100 mg capsule RxNorm: 505575 1 -2 Capsule(s) PO TI D as needed cough No Start Date 11/03/2016 Inactive aspirin 81 mg Tab, D elayed Release RxNorm: 071589 1 Tablet(s) PO every other day No Start Date 05/18/2016 Inactive Cinnamon 1000 mg RxNorm: 2 PO daily No Start Date 05/18/2016 Inactive clonidine HCl 0.1 mg tablet RxNorm: 399717 1 Tablet(s) PO QHS an d 1 Tablet as needed No Start Date 07/21/2016 Inactive [place] 3 Cap RxNorm: 1 Capsule(s) PO BID No Start Date 12/31/2018 Inactive niacin 500 mg tablet RxNorm: 098190 1 Tablet(s) PO QHS No Start Date 01/01/2015 Inactive multivitamin Tab RxNorm: 1 Tablet(s) PO daily No Start Date 07/21/2016 Inactive methotrexate sodium 2.5 mg Tab RxNorm: 831020 Tablet(s) PO No Start Date 11/15/2011 Inactive 3 on tuesday3 on T-Bio RxNorm: 1 PO daily No Start Date 05/18/2016 Inactive Vitamin D 2,000 unit Cap RxNorm: 1 Capsule(s) PO daily No Start Date 07/21/2016 Inactive hydrochlorothiazide 12.5 mg tablet RxNorm: 155485 1 Tablet(s) PO daily No Start Date 10/27/2017 Inactive Medication Administered Medication Codes Instruc tions Start Date Status Kenalog 40 mg/mL suspension for injection RxNorm: 8351311 Milliliter 01/01/2019 Ac tive Kenalog 40 mg/mL suspension for injection RxNorm: 5086649 1Milliliter 08/31/2018 N o longer Active Kenalog 40 mg/mL suspension for injection RxNorm: 3376072 Milliliter 11/05/2016 No longer Active Kenalog 40 mg/mL suspension for injection RxNorm: 8600717 1Milliliter 09/16/2014 N o longer Active ketorolac 60 mg/2 mL intramuscular solution RxNorm: 140636 2Milliliter 03/20/2014 N o longer Active Influenza Virus Vaccine 0.5 mL RxNorm: 07/13/2011 No longer Active Pneumovax 23 25 mcg/0.5 mL Injection RxNorm: 376181 Milliliter 07/13/2011 No longer Active Immunizations Vaccine [...] 02/03/2012 VITAMIN DEFICIENCY ICD-9: 269.2 11/04/2011 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 07/13/2011 Postprandial bloating ICD-9: 787.3 [...] Ord64 K 3.8 mEq/L 12/06/2016 Comp Metabolic Crd696 NA 134 mEq/L 12/03/2016 Comp Metabolic Uqy635 K Specimen 3+ Hemolyzed mEq/L 12/04/19 17 Comp Metabolic Pgd476 CL 106 mEq/L 12/03/2016 Comp Metabolic Hxl048 CO2 20.0 mEq/L 12/03/2016 Comp Metabolic Qxu240 AN ION GAP 16 12/03/2016 Comp Metabolic Rmb164 GL UCOSE 93 mg/dL 12/03/2016 Comp Metabolic Ffq869 Cr eat 0.8 mg/dL 12/03/2016 Comp Metabolic Sec559 eG FR 73 ml/min/1.73m2 12/03 Comp Metabolic Oii643 BUN 14 mg/dL 12/03/2016 Comp Metabolic Hem850 B/ C Ratio 17.1 Ratio 12/03/2016 Comp Metabolic Muo190 CA LCIUM 9.3 mg/dL 12/03/2016 Comp Metabolic Ciu341 AL K PHOS 63 U/L 12/03/2016 Comp Metabolic Vtc665 T(SGOT) 69 U/L 12/03/2016 Comp Metabolic Cbg374 AL T(SGPT) 33 U/L 12/03/2016 Comp Metabolic Uhp023 BI LI T 1.0 mg/dL 12/03/2016 Comp Metabolic Kqm385 AL BUMIN 4.3 g/dL 12/03/2016 Comp Metabolic Paf623 TP RO 6.7 g/dL 12/03/2016 Comp Metabolic Hws744 GL OB 2.4 g/dL 12/03/2016 Comp Metabolic Fby713 A/ G Ratio 1.7 Ratio 12/03/2016 Comp Metabolic Fmd219 Os mo 268 mOsmo 12/03/2016 Comp Metabolic Hcs410 NA 138 mEq/L 12/18/2015 Comp Metabolic Rsj148 K 4.1 mEq/L 12/18/2015 Comp Metabolic Max986 CL 104 mEq/L 12/18/2015 Comp Metabolic Ouw858 CO2 22.0 mEq/L 12/18/2015 Comp Metabolic Ftf702 AN ION GAP 16 12/18/2015 Comp Metabolic Lin405 GL UCOSE 89 mg/dL 12/18/2015 Comp Metabolic Sls090 Cr eat 0.6 mg/dL 12/18/2015 Comp Metabolic Nxr172 eG FR 99 ml/min/1.73m2 12/17 Comp Metabolic Mbw004 BUN 15 mg/dL 12/18/2015 Comp Metabolic Fyd844 B/ C Ratio 23.8 Ratio 12/18/2015 Comp Metabolic Olq230 CA LCIUM 10.4 mg/dL 12/18/2015 Comp Metabolic Jiq462 AL K PHOS 77 U/L 12/18/2015 Comp Metabolic Hzc593 T(SGOT) 19 U/L 12/18/2015 Comp Metabolic Nia917 AL T(SGPT) 17 U/L 12/18/2015 Comp Metabolic Oqv929 BI LI T 0.8 mg/dL 12/18/2015 Comp Metabolic Dhx921 AL BUMIN 4.3 g/dL 12/18/2015 Comp Metabolic Wzy313 TP RO 6.7 g/dL 12/18/2015 Comp Metabolic Ckt569 GL OB 2.4 g/dL 12/18/2015 Comp Metabolic Dfx839 A/ G Ratio 1.7 Ratio 12/18/2015 Comp Metabolic Szz632 Os mo 276 mOsmo 12/18/2015 Cbc With [...] 29.5 pg 12/18/2015 Cbc With Differential Ord2 [place]% 9.4 % 12/18/2015 Cbc With Differential Ord2 [...] 2.57 K/ul 12/18/2015 Cbc With Differential Ord2 [place] ABS# 0.8 K/ul 12/18/2015 Cbc With Differential Ord2 Eos ABS# 0.1 K/ul 12/18/2015 Cbc With Differential Ord2 Baso ABS# 0.0 K/ul 12/18/2015 Cbc With Differential Ord2 New Analyzer Notice Please note new ref ranges s tarting 10-15-2015 due to implemntation of new five part differential hematolgy analyzer. 12/18/2015 Total T3 Ord42 TT3 1.0 ng/ml 07/10/2015 Free T4 Fao958 FREE T4 0.90 ng/dL 07/09/2015 Free T3 Gxe889 Free T3 2.92 pg/ml 07/09/2015 Tsh Ord6 hTSH II 1.18 uIU/mL 07/09/2015 URINALYSIS NONAUTO W/O SCOPE 22308 Specific [place] 1.005 DateTime(Free Text in Aprima) URINALYSIS NONAUTO W/O SCOPE 38274 PH 6 DateTime(Free Text in Aprima) URINALYSIS NONAUTO W/O SCOPE 73793 GLUCOSE neg DateTime(Free Dano t in Aprima) URINALYSIS NONAUTO W/O SCOPE 37893 Protein neg DateTime(Free Dano t in Aprima) URINALYSIS NONAUTO W/O SCOPE 35928 Blood neg DateTime(Free Dano t in Aprima) URINALYSIS NONAUTO W/O SCOPE 47872 Bilirubin neg DateTime(Free Dano t in Aprima) URINALYSIS NONAUTO W/O SCOPE 82661 Ketones neg DateTime(Free Dano t in Aprima) URINALYSIS NONAUTO W/O SCOPE 36679 Urobilinogen neg DateTime(Free Text in Apr) URINALYSIS NONAUTO W/O SCOPE 86013 Nitrite neg DateTime(Free Dano t in Apr) URINALYSIS NONAUTO W/O SCOPE 90720 Leukocytes neg DateTime(Free Text in Apr) Review [...] Formatting Model/CDA Sections, Assigned to/Kimberley Fagan CPT-4: [id number] 07/06/2018 ADMIN INFLUENZA VIRU S VAC CPT-4: G0008 07/05/2017 FLU VACC PRSV FREE I NC ANTIG CPT-4: 76631 07/05/2017 THER/PROPH/DIAG INJ SC/IM CPT-4: 01255 11/05/2016 TRIAMCINOLONE ACET I [place] NOS CPT-4: J3301 11/05/2016 TRIAMCINOLONE ACET I [place] NOS CPT-4: J3301 09/16/2014 DRAIN/INJECT JOINT/B URSA CPT-4: 36945 09/16/2014 KETOROLAC TROMETHAMI NE INJ CPT-4: J1885 03/20/2014 URINALYSIS NONAUTO W /O SCOPE CPT-4: 43307 12/10/2013 PRESCRIP TRANSMIT A ERX SY CPT-4: G8553 09/17/2013 PRESCRIP TRANSMIT A ERX SY CPT-4: G8553 06/08/2012 TRIAMCINOLONE ACET I [place] NOS CPT-4: J3301 03/16/2012 INJ TRIGGER POINT 1/ 2 MUSCL CPT-4: 92614 03/16/2012 PRESCRIP TRANSMIT A ERX SY CPT-4: G8553 03/16/2012 ADMIN INFLUENZA VIRU S VAC CPT-4: G0008 07/13/2011 FLULAVAL VACC, 3 YRS & >, IM CPT-4: Q2036 07/13/2011 ADMIN PNEUMOCOCCAL V ACCINE SNOMED CT: 01406349 CPT-4: G0009 07/13/2011 Pneumococcal Polysac charide Vaccine, 23-Valent, Ad CPT-4: 27048 07/13/2011 Vital Signs Date Vital 01/01/2019 Blood Pressure 1: 138/80 Code: 8480-6 BMI: 36.3 Code: 35701-2 Heart Rate 1: 64 bpm Height: 5'3" SpO2: 98% Weight: 205 lbs 12/18/2018 Blood Pressure 1: 120/62 Code: 8480-6 BMI: 36.0 Code: 29237-5 Heart Rate 1: 67 bpm Height: 5'3" SpO2: 97% Weight: 203 lbs 09/18/2018 Blood Pressure 1: 126/70 Code: 8480-6 BMI: 36.3 Code: 53380-2 Heart Rate 1: 58 bpm Height: 5'3" SpO2: 98% Weight: 205 lbs 08/31/2018 Blood Pressure 1: 148/76 Code: 8480-6 BMI: 37.0 Code: 08883-3 Heart Rate 1: 60 bpm Height: 5'3" SpO2: 98% Weight: 209 lbs 08/14/2018 Blood Pressure 1: 140/80 Code: 8480-6 BMI: 37.2 Code: 47462-5 Heart Rate 1: 76 bpm Height: 5'3" SpO2: 96% Weight: 210 lbs 05/22/2018 Blood Pressure 1: 150/62 Code: 8480-6 BMI: 36.7 Code: 71785-0 Heart Rate 1: 74 bpm Height: 5'3" SpO2: 98% Weight: 207 lbs 11/18/2017 Blood Pressure 1: 122/66 Code: 8480-6 BMI: 35.8 Code: 69807-6 Heart Rate 1: 59 bpm Height: 5'3" SpO2: 97% Weight: 202 lbs 08/03/2017 Blood Pressure 1: 122/60 Code: 8480-6 BMI: 36.0 Code: 38071-7 Heart Rate 1: 60 bpm Height: 5'3" SpO2: 97% Weight: 203 lbs 07/05/2017 Blood Pressure 1: 140/76 Code: 8480-6 BMI: 36.0 Code: 97040-9 Heart Rate 1: 58 bpm Height: 5'3" SpO2: 98% Weight: 203 lbs 12/02/2016 Blood Pressure 1: 122/70 Code: 8480-6 BMI: 34.4 Code: 06803-6 Heart Rate 1: 66 bpm Height: 5'3" SpO2: 99% Temperature: 36.4 (C ) / 97.5 (F) Weight: 194 lbs 11/22/2016 Blood Pressure 1: 102/60 Code: 8480-6 BMI: 34.2 Code: 59090-6 Heart Rate 1: 110 bpm Height: 5'3" SpO2: 98% Temperature: 36.7 (C ) / 98.0 (F) Weight: 193 lbs 11/05/2016 Blood Pressure 1: 140/62 Code: 8480-6 BMI: 36.1 Code: 36077-5 Heart Rate 1: 102 bpm Height: 5'3" SpO2: 97% Temperature: 37.1 (C ) / 98.7 (F) Weight: 204 lbs 07/22/2016 Blood Pressure 1: 158/80 Code: 8480-6 Blood Pressure 1: 160/76 Code: 8480-6 BMI: 36.8 Code: 98896-9 Heart Rate 1: 56 bpm Height: 5'3" SpO2: 98% Weight: 208 lbs 05/19/2016 Blood Pressure 1: 150/78 Code: 8480-6 Blood Pressure 1: 122/69 Code: 8480-6 BMI: 37.0 Code: 91426-3 Heart Rate 1: 61 bpm Height: 5'3" SpO2: 98% Weight: 209 lbs 02/13/2016 Blood Pressure 1: 140/76 Code: 8480-6 BMI: 36.8 Code: 16911-0 Heart Rate 1: 64 bpm Height: 5'3" SpO2: 97% Weight: 208 lbs 01/13/2016 Blood Pressure 1: 170/70 Code: 8480-6 BMI: 36.8 Code: 34479-2 Heart Rate 1: 65 bpm Height: 5'3" SpO2: 95% Weight: 208 lbs 01/02/2016 Blood Pressure 1: 150/88 Code: 8480-6 BMI: 36.8 Code: 09613-8 Heart Rate 1: 61 bpm Height: 5'3" SpO2: 98% Weight: 208 lbs 12/18/2015 Blood Pressure 1: 148/90 Code: 8480-6 BMI: 37.6 Code: 35988-7 Heart Rate 1: 64 bpm Height: 5'3" SpO2: 96% Weight: 212 lbs 09/08/2015 Blood Pressure 1: 130/88 Code: 8480-6 BMI: 37.0 Code: 59976-0 Heart Rate 1: 62 bpm Height: 5'3" SpO2: 97% Weight: 209 lbs 07/09/2015 Blood Pressure 1: 142/82 Code: 8480-6 BMI: 36.4 Code: 00872-6 Heart Rate 1: 66 bpm Height: 5'3" SpO2: 97% Weight: 205 lbs 5 oz 01/16/2015 Blood Pressure 1: 122/80 Code: 8480-6 BMI: 35.6 Code: 75327-0 Heart Rate 1: 67 bpm Height: 5'3" SpO2: 98% Weight: 201 lbs 01/03/2015 Blood Pressure 1: 122/70 Code: 8480-6 BMI: 35.6 Code: 09492-4 Heart Rate 1: 61 bpm Height: 5'3" Respiratory Rate: 16 bpm SpO2: 98% Weight: 201 lbs 09/16/2014 Blood Pressure 1: 132/78 Code: 8480-6 BMI: 34.9 Code: 60065-2 Heart Rate 1: 56 bpm Height: 5'3" Weight: 197 lbs 08/15/2014 Blood Pressure 1: 152/80 Code: 8480-6 Blood Pressure 2: 160/82 Code: 8480-6 BMI: 34.0 Code: 71567-1 Heart Rate 1: 75 bpm Height: 5'3" Weight: 192 lbs 06/12/2014 Blood Pressure 1: 136/82 Code: 8480-6 BMI: 34.9 Code: 56483-9 Heart Rate 1: 58 bpm Height: 5'3" SpO2: 96% Weight: 197 lbs 03/20/2014 Blood Pressure 1: 140/72 Code: 8480-6 BMI: 34.9 Code: 19086-2 Heart Rate 1: 60 bpm Height: 5'3" Weight: 197 lbs 12/10/2013 Blood Pressure 1: 132/78 Code: 8480-6 BMI: 35.1 Code: 45224-2 Heart Rate 1: 68 bpm Height: 5'3" Weight: 198 lbs 09/17/2013 Blood Pressure 1: 128/78 Code: 8480-6 BMI: 34.9 Code: 50745-2 Heart Rate 1: 68 bpm Height: 5'3" Weight: 197 lbs 05/21/2013 Blood Pressure 1: 128/82 Code: 8480-6 BMI: 35.6 Code: 84110-2 Heart Rate 1: 80 bpm Height: 5'3" Weight: 201 lbs 01/17/2013 Blood Pressure 1: 138/72 Code: 8480-6 BMI: 36.7 Code: 94342-7 Heart Rate 1: 60 bpm Height: 5'3" [...] 1: 140/78 Code: 8480-6 BMI: 40.0 Code: 84630-9 Heart Rate 1: 64 bpm Height: 5'3" Respiratory Rate: 16 bpm Weight: 226 lbs 11/04/2011 Blood Pressure 1: 136/76 Code: 8480-6 Heart Rate 1: 68 bpm Respiratory Rate: 16 bpm Weight: 226 lbs 07/13/2011 Blood Pressure 1: 142/80 Code: 8480-6 BMI: 40.0 Code: 13549-8 Heart Rate 1: 60 bpm Height: 5'4" [...] intermi ttent 09/08/2015 None arm pain Quality the [facility] [place] [facility] 09/08/2015 None arm pain Quality sharp [...] 09/20/2012 states has had 2 spells s odnna here last pain Quality uncomfortab le 09/20/2012 [...] ago 03/16/2012 None shoulder pain Quality ac samish 03/16/2012 None shoulder pain Quality sh kate [...] Encounters Encounter Performer Loca tion Codes Date ([id number]) 43370 EST. P ATIENT, LEVEL III Diagnosis: Otalgia, right ear[ICD10: H92.01] [facility] CPT- 4: 84673 01/01/2019 ([id number]) 02001 EST. 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 P ATIENT, LEVEL III Diagnosis: Nasal congestion[ICD10: R09.81] Diagnosis: Other allergic rhinitis[ICD10: J30.89] Юлия Manuel MD, [facility] CPT-4: 95091 08/31/2018 ([id number]) 26998 EST. P ATIENT, LEVEL III Diagnosis: Acute recurrent maxillary sinusitis[ICD10: J01.01] Юлия Manuel MD, [facility] CPT-4: 70743 08/14/2018 46496 EST. PATIENT, LEVEL III Diagnosis: Pain in right shoulder[ICD10: M25.511] Diagnosis: Pain in right arm[ICD10: M79.601] Willow Manuel MD, [facility] CPT-4: 50873 05/22/2018 ([id number]) 06460 EST. 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 PATIENT, LEVEL III Diagnosis: Other specified intestinal infections[ICD10: A08.8] Willow Manuel MD, [facility] CPT-4: 09021 08/03/2017 ([id number]) 23452 EST. 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 P ATIENT, LEVEL III Diagnosis: Essential (primary) hypertension[ICD10: I10] Юлия Manuel MD, [facility] CPT-4: 29382 12/02/2016 ([id number]) 19206 EST. P ATIENT, LEVEL III Diagnosis: Essential (primary) hypertension[ICD10: I10] Diagnosis: Allergic rhinitis due to pollen[ICD10: J30.1] Giuliana Manuel MD, C CPT-4: 90962 11/22/2016 78964 EST. PATIENT, LEVEL III Diagnosis: Acute laryngopharyngitis[ICD10: J06.0] Diagnosis: Influenza due to unidentified influenza virus with other respiratory manifestations[ICD10: J11.1] Willow Manuel MD, [facility] CPT-4: 18721 11/05/2016 ([id number]) 40934 EST. P ATIENT, LEVEL III Diagnosis: Gastro-esophageal reflux disease without esophagitis[ICD10: K21.9] Diagnosis: Essential (primary) hypertension[ICD10: I10] Giuliana Manuel MD, C CPT-4: 33328 07/22/2016 ([id number]) 11156 EST. P ATIENT, LEVEL IV Diagnosis: Essential (primary) hypertension[ICD10: I10] Diagnosis: Abdominal distension (gaseous)[ICD10: R14.0] Giuliana Manuel MD, C CPT-4: 34650 05/19/2016 ([id number]) 07461 EST. P ATIENT, LEVEL III Diagnosis: Essential (primary) hypertension[ICD10: I10] Юлия Manuel MD, [facility] CPT-4: 73282 02/13/2016 ([id number]) 07713 EST. P ATIENT, LEVEL III Diagnosis: Essential (primary) hypertension[ICD10: I10] Юлия Manuel MD, [facility] CPT-4: 46599 01/13/2016 88716 EST. PATIENT, LEVEL IV Diagnosis: Essential (primary) hypertension[ICD10: I10] Diagnosis: Body mass index (BMI) 36.0-36.9, adult[ICD10: Z68.36] Willow Manuel MD, [facility] CPT-4: 39956 01/02/2016 ([id number]) 78381 EST. P ATIENT, LEVEL III Diagnosis: Essential (primary) hypertension[ICD10: I10] Юлия Manuel MD, [facility] CPT-4: 45001 12/18/2015 ([id number]) 20582 EST. P ATIENT, LEVEL IV Diagnosis: Essential (primary) hypertension[ICD10: I10] Diagnosis: Benign paroxysmal vertigo, bilateral[ICD10: H81.13] Diagnosis: Radiculopathy, cervical region[ICD10: M54.12] Giuliana Manuel MD, C CPT-4: 90917 09/08/2015 ([id number]) 73986 EST. P ATIENT, LEVEL IV Diagnosis: Other specified nonscarring hair loss[ICD10: L65.8] Diagnosis: Myositis, unspecified[ICD10: M60.9] Diagnosis: Psoriasis, unspecified[ICD10: L40.9] Diagnosis: Essential (primary) hypertension[ICD10: I10] Giuliana Manuel MD, C CPT-4: 27344 07/09/2015 ([id number]) 49886 EST. P ATIENT, LEVEL III Diagnosis: ESSENTIAL HYPERTENSION[ICD9: 401.9] Giuliana Manuel MD, [facility] CPT- 4: 96357 01/16/2015 ([id number]) 65938 EST. P ATIENT, LEVEL III Diagnosis: Shoulder pain[ICD9: 719.41] Diagnosis: ESSENTIAL HYPERTENSION[ICD9: 401.9] Diagnosis: PALPITATIONS[ICD9: 785.1] Giuliana Manuel MD, [facility] CPT-4: 49065 01/03/2015 ([id number]) 41922 EST. P ATIENT, LEVEL III Diagnosis: Sacroiliitis[ICD9: 720.2] Diagnosis: Back pain[ICD9: 724.5] Diagnosis: ESSENTIAL HYPERTENSION[ICD9: 401.9] Giuliana Manuel MD, [facility] CPT- 4: 39001 09/16/2014 ([id number]) 41305 EST. P ATIENT, LEVEL IV Diagnosis: ESSENTIAL HYPERTENSION[ICD9: 401.9] Diagnosis: Arrhythmia[ICD9: 427.9] Diagnosis: Nausea[ICD9: 787.02] Giuliana Manuel MD [facility] CPT-4: 81595 08/15/2014 ([id number]) 38159 EST. P ATIENT, LEVEL IV Diagnosis: ESSENTIAL HYPERTENSION[ICD9: 401.9] Diagnosis: Back pain[ICD9: 724.5] Diagnosis: Allergic reaction[ICD9: 995.3] Giuliana Manuel MD, [facility] CPT-4: 29214 06/12/2014 ([id number]) 39325 EST. P ATIENT, LEVEL III Diagnosis: Thoracic back pain[ICD9: 724.1] Diagnosis: MYALGIA AND MYOSITIS[ICD9: 729.1] Giuliana Manuel MD, [facility] CPT-4: 09915 03/20/2014 ([id number]) 80096 EST. P ATIENT, LEVEL IV Diagnosis: HYPERLIPIDEMIA[ICD9: 272.4] Diagnosis: ESSENTIAL HYPERTENSION[SNOMED: 71977297] Diagnosis: ABDOM PAIN NOS SITE[ICD9: 789.00] Giuliana Manuel MD, [facility] CPT-4: 08963 12/10/2013 ([id number]) 36812 EST. P ATIENT, LEVEL IV Diagnosis: ESSENTIAL HYPERTENSION[SNOMED: 86950893] Diagnosis: HYPERLIPIDEMIA[ICD9: 272.4] Giuliana Manuel MD, [facility] CPT-4: 56693 09/17/2013 ([id number]) 36346 EST. P ATIENT, LEVEL IV Diagnosis: ESSENTIAL HYPERTENSION[SNOMED: 90489533] Diagnosis: OBESITY[ICD9: 278.00] Diagnosis: Back pain[ICD9: 724.5] Giuliana Manuel MD, [facility] CPT-4: 77813 05/21/2013 ([id number]) 22032 EST. P ATIENT, LEVEL IV Diagnosis: ESSENTIAL HYPERTENSION[SNOMED: 97108751] Diagnosis: HYPERLIPIDEMIA[ICD9: 272.4] Diagnosis: Abdominal pain[ICD9: 789.00] Diagnosis: BENIGN PAROXYSMAL VERTIGO[ICD9: 386.11] Giuliana Manuel MD, [facility] CPT-4: 11762 01/17/2013 ([id number]) 05461 EST. P ATIENT, LEVEL IV Diagnosis: ESSENTIAL HYPERTENSION[SNOMED: 41539497] Diagnosis: BENIGN PAROXYSMAL VERTIGO[ICD9: 386.11] Diagnosis: Hair loss[ICD9: 704.00] Diagnosis: Vitamin d deficiency[ICD9: 268.9] Diagnosis: Bleeding from the nose[ICD9: 784.7] Giuliana Manuel MD, [facility] CPT- 4: 24290 09/20/2012 94988 EST. PATIENT, LEVEL IV Diagnosis: BPPV (benign paroxysmal positional vertigo)[ICD9: 386.11] Diagnosis: HYPERLIPIDEMIA[ICD9: 272.4] Diagnosis: ESSENTIAL HYPERTENSION[SNOMED: 62442240] Giuliana Manuel MD, [facility] CPT-4: 56244 06/08/2012 ([id number]) 35955 EST. [facility]: BPPV (benign paroxysmal positional vertigo)[ICD9: 386.11] Diagnosis: Diverticulitis[ICD9: 562.11] Diagnosis: Abdominal pain[ICD9: 789.00] Giuliana Manuel MD, [facility] CPT-4: 56450 04/10/2012 ([id number]) 21035 EST. [facility] Diagnosis: Neck pain[ICD9: 723.1] Diagnosis: Acute upper back pain[ICD9: 724.1] Giuliana Manuel MD, [facility] CPT- 4: 11520 03/16/2012 ([id number]) 88996 EST. [facility] Diagnosis: HYPERLIPIDEMIA[ICD9: 272.4] Diagnosis: ESSENTIAL HYPERTENSION[SNOMED: 13382654] Diagnosis: Constipation - functional[ICD9: 564.09] Giuliana Manuel MD, [facility] CPT-4: 58022 02/03/2012 ([id number]) 07168 EST. P ATIENT, LEVEL IV Diagnosis: HYPERLIPIDEMIA[ICD9: 272.4] Diagnosis: VITAMIN DEFICIENCY[ICD9: 269.2] Diagnosis: ESSENTIAL HYPERTENSION[SNOMED: 01932294] Giuliana Manuel MD, [facility] CPT-4: 12781 11/04/2011 31846 EST. PATIENT, LEVEL IV Diagnosis: Abdominal pain[ICD9: 789.00] Diagnosis: Postprandial bloating[ICD9: 787.3] Diagnosis: VAC STREP PNEUMONIAE-FLU[ICD9: V06.6] Diagnosis: OBESITY[ICD9: 278.00] Diagnosis: DIETARY SURVEIL/WIRE GALVANIZER[ICD9: V65.3] Diagnosis: Seasonal allergies[ICD9: 477.9] Giuliana Manuel MD, [facility] CPT-4: 47625 07/13/2011 Plan of Care Planned Activity Notes [...] not improving. 12/18/2018 Appointment: Giuliana Manuel WPtel: [address] [place], [place] [address] [place] (15 min) Moderate 12/18/2018 Patient Education: [...] back. 09/18/2018 Appointment: [phone] [place] (15 min) Moderate 09/18/2018 Patient Education: Patient [...] spray. 08/31/2018 Appointment: [phone] [phone] [place] (15 min) Moderate 08/31/2018 Patient Education: [...] improve. 05/22/2018 Appointment: Willow Garcia WPtel: [phone] [facility] (15 min) Moderate 05/22/2018 Patient Education: [...] improving. 11/18/2017 Appointment: Giuliana Manuel WPtel: [phone] [facility] (15 min) Moderate 11/18/2017 Patient Education: Patient Medication Summary Completed 11/18/2017 Appointment: Giuliana Manuel WPtel: [phone] [facility] (15 min) Moderate 11/07/2017 Visit Plan: [...] if symptoms not improved. 08/03/2017 Appointment: Willow Gacria WPtel: [phone] [facility] (30 min) Complex 08/03/2017 Patient Education: [...] daily. 07/05/2017 Appointment: Giuliana Manuel WPtel: [phone] [facility] (15 min) Moderate 07/05/2017 Patient Education: Patient Medication Summary Completed 07/05/2017 Patient Education: Obesity Completed 07/05/2017 Appointment: Giuliana Manuel WPtel: [phone] [facility] (15 min) Moderate 06/27/2017 Appointment: Giuliana Manuel WPtel: [phone] [facility] (15 min) Moderate 06/21/2017 Appointment: Юлия Rojas WPtel: [phone] [phone] [place] (30 min) Complex 12/23/2016 Visit [...] RESTART HCTZ 12/02/2016 Appointment: Юлия Rojas WPtel: [facility]5 [phone] (30 min) Complex 12/02/2016 Patient Education: [...] 7 days 11/22/2016 Appointment: Giuliana Manuel WPtel: [facility]5 [facility] (15 min) Moderate 11/22/2016 Patient Education: Patient Medication Summary Completed 11/22/2016 Patient Education: Obesity Completed 11/22/2016 Visit Plan: Influenza - pt started on tamiflu - pt to start on anti-inflammatories, tylenol and monitor symptoms. Pt to call if not improving. Pt to alert any close contacts as to illness. 11/05/2016 Appointment: Willow Garcai WPtel: [facility]5 [facility] (30 min) Complex 11/05/2016 Patient Education: Patient [...] carafate 07/22/2016 Appointment: Giuliana Manuel [facility]Ptel: [phone] [facility] [place] (15 min) Moderate 07/22/2016 Patient Education: Patient Medication Summary Completed 07/22/2016 Patient Education: Obesity Completed 07/22/2016 Care Plan: Referral Order SNOMED-CT : [id number] Pending 07/22/2016 Visit Plan: Hypertension - well [...] Obesity Completed 05/19/2016 Appointment: Giuliana Manuel WPtel: [facility] [place] [place] (15 min) Moderate 05/17/2016 Visit Plan: Hypertension - well con trolled - continue with current medications, continue with no added salt diet. Pt has been encouraged to exercise daily. The pt has been advised to call the office if there are any acute concerns about change in blood pressure readings at home. 02/13/2016 Appointment: [facility] Rojas [facility]el[phone] [phone] [place] (30 min) Complex 02/13/2016 Patient Education: [...] Completed 12/18/2015 Appointment: Giuliana Manuel WPtel: [phone] [place] (15 min) Moderate 12/08/2015 Referral: Jared Lafleur [address] [facility] D [id number] Referral Completed 10/17/2015 Visit Plan: Hypertension - [...] stress test. 09/08/2015 Appointment: Giuliana Manuel WPtel: [address] [place], [place] [phone] (15 min) Moderate 09/08/2015 Patient Education: Patient Medication Summary Completed 09/08/2015 Patient Education: .Cervicalgia Neck Pain Completed 09/08/2015 Care Plan: Referral Order SNOMED-CT : [id number] Ordered 09/08/2015 Visit Plan: Hypertension - uncontro [...] checked today. 07/09/2015 Appointment: Giuliana Manuel WPtel: [address] [place], [place] [phone] (15 min) Moderate 07/09/2015 Patient Education: Patient Medication Summary Completed 07/09/2015 Appointment: Giuliana Manuel WPtel: [address] [place], [place] [phone] (15 min) Moderate 07/07/2015 Appointment: Giuliana Manuel WPtel: [address] [place], [place] [phone] Follow up 03/17/2015 Visit Plan: Hypertension - well con trolled - continue with current medications, continue with no added salt diet. Pt has been encouraged to exercise daily. The pt has been advised to call the office if there are any acute concerns about change in blood pressure readings at home. Palpitations resolved. 01/16/2015 Appointment: Giuliana Manuel WPtel: [address] [place], [place] [phone] Other 01/16/2015 Patient Education: Patient Medication Summary [...] pain symptoms. 01/03/2015 Appointment: Giuliana Manuel WPtel: [address] [place], [place] [phone] Follow up 01/03/2015 Patient Education: Patient Medication [...] Hypertension Completed 09/16/2014 Appointment: Giuliana Manuel WPtel: [address] [place], [place] [phone] Follow up 09/09/2014 Visit Plan: Hypertension - [...] symptoms worsen. 08/15/2014 Appointment: Giuliana Manuel WPtel: [address] [place] [address] Sick 08/15/2014 Patient Education: Patient Medication Summary Completed 08/15/2014 Patient Education: Hypertension Completed 08/15/2014 Care Plan: Referral Order SNOMED-CT : [id number] Ordered 08/15/2014 Appointment: Giuliana Manuel WPtel: [address] [place], [place] [phone] Follow up 06/18/2014 Visit Plan: [facility] Rash - reaction [...] at home. 06/12/2014 Appointment: Giuliana Manuel WPtel: [facility] Sick 06/12/2014 Patient Education: Patient Medication Summary Completed 06/12/2014 Patient Education: Hypertension Completed 06/12/2014 Care Plan: Referral Order SNOMED-CT : [id number] Ordered 06/12/2014 Visit Plan: Hypertension - well [...] xrays. 03/20/2014 Appointment: Giuliana Manuel WPtel: [phone] [place] Follow up 03/20/2014 Patient Education: Patient Medication [...] UTI 12/10/2013 Appointment: Giuliana Manuel WPtel: [phone] [place] Follow up 12/10/2013 Patient Education: Patient Medication [...] times weekly. 09/17/2013 Appointment: Giuliana Manuel WPtel: [phone] [facility] Follow up 09/17/2013 Patient Education: Patient [...] rub. 05/21/2013 Appointment: Giuliana Manuel WPtel: [phone] [facility] Follow up 05/21/2013 Patient Education: Patient [...] the vertigo. 01/17/2013 Appointment: Giuliana Manuel WPtel: [address] [place] [address] Follow up 01/17/2013 Patient Education: Patient Medication [...] if needed. 09/20/2012 Appointment: Giuliana Manuel WPtel: [address] [place], [place] [phone] Follow up 09/20/2012 Patient Education: Patient Medication [...] begin. 06/08/2012 Appointment: Giuliana Manuel WPtel: [phone] [place] Follow up 06/08/2012 Patient Education: Patient Medication [...] or popcorn. 04/10/2012 Appointment: Giuliana Manuel WPtel: [facility] Other 04/10/2012 Patient Education: Patient Medication [...] by Tuesday. 03/16/2012 Appointment: Giuliana Manuel WPtel: [address] [place], [place] [phone] Other 03/16/2012 Patient Education: Patient Medication Summary [...] improved on this regimen. 02/03/2012 Appointment: Giuliana Maneul WPtel: [phone] [facility] [place] Other 02/03/2012 Patient Education: Patient Medication Summary [...] a week. 11/04/2011 Appointment: Giuliana Manuel WPtel: [phone] [facility] [place] Follow up 11/04/2011 Patient Education: Patient Medication [...] shot 07/13/2011 Appointment: Giuliana Manuel WPtel: [phone] [facility] [place] Other 07/13/2011 Patient Education: Patient Medication Summary Completed 07/13/2011 Patient Education: .Gage Gallaghere tic meal planning guide Completed 07/13/2011 Referral: Jared Lafleur [facility] [facility] [place] Referral Appointment Requested Referral: Duarte Catalan Referral Appointment Requested Referral: Dr. Willams WPtel: [address] [place], [place] [phone] Referral Initiated Referral: [facility] WPtel: [address] [facility]66[facility] Referral Initiated Instructions Comment . Sinusitis - Pt has acute infection - pain in face, maxillary region, Pt informed to use decongestant, RX given to patient, sinus rinses also recommended. Call if symptoms do not show improvement. KENALOG CONTINUE BENADRYL AT BEDTIME . Right [...] pt is to call for acute concerns. hold the omega 3 fis h oil [...] if the symptoms are not improving. . Trigger Points - I njected trigger [...] - call if not better by Tuesday. apply the voltaren g el to both [...] may need injection into low back. . Hyperlipidemia - pt has been counseled [...] check TSH and consider treatment if needed. Back pain - Muscle a ches - [...] . Back pain - referr al to [facility] physical therapy. Rash - reaction to [...]
--- OUTSIDE RECORDS SUMMARY | 2020-01-21 14:14 | XMS REPORT | CCD ---
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/08/2015 Marital status Unknown M arried 07/13/[address]: 592387277 Nonsmoker 07/13/[address]: 806475165 Never drinks alcohol 07/13/2011 Allergies, Adverse Reactions, Alerts Substance Reaction Codes Entered Date Inactivated Date Status Soy Unknown 07/13/2011 No Inactive Date Active Cardizem RxNorm: 475177 05/19/2016 No Inactive Date Active Metoprolol Succinate anaphylaxis, rash, RxNorm: 6918 02/13/2016 No Inactive Date Active Past Medical History Illness Codes Condition Status Onset Date Resolved Date Essential (primary) hypertension ICD-9: 401.1 ICD-10: I10 [...] pain ICD-9: 789.00 Active 07/13/2011 Unknown 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 Active 07/13/2011 Unknown OBESITY ICD-9: 278.00 Active 07/13/2011 Unknow n Postprandial bloating ICD-9: 787.3 Active 07/13/2011 Unknown Seasonal allergies ICD- 9: 477.9 Active 07/13/2011 Unknown VAC STREP PNEUMONIAE -FLU ICD-9: V06.6 Active 07/03 Unknown Problems Condition Codes Effectiv e Dates Condition Status Essential (primary) hypertension ICD-9: 401.1 ICD-10: I10 [...] Abdominal pain ICD-9: 789.00 07/13/2011 Active 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 07/13/2011 Active OBESITY ICD-9: 278.00 07/13/2011 Active Postprandial bloating ICD-9: 787.3 07/13/2011 Active Seasonal allergies ICD- 9: 477.9 07/13/2011 Active VAC STREP PNEUMONIAE -FLU ICD-9: V06.6 07/13/2011 Active Medications Medication Codes Instruc tions Start Date Stop Date Sta tus Fill Instructions losartan 25 mg tablet RxNorm: 230332 1 Tablet(s) PO BID 11/01/2018 10/26/2019 Active losartan 25 mg tablet RxNorm: 347786 1 Tablet(s) PO BID 11/01/2018 10/31/2018 Inactive hydrochlorothiazide 12.5 mg tablet RxNorm: 466948 TAKE 1 TABLET BY MOUT H EVERY DAY 10/02/2018 03/30/2019 Ac tive - First Attempt Ref: [id number] famotidine 40 mg tablet RxNorm: 842196 TAKE 1 TABLET BY MOUTH EVERY MORNING 10/02/2018 03/30/2019 Ac tive - First Attempt Ref: [id number] doxazosin 1 mg tablet RxNorm: 344680 TAKE 1 TABLET BY MOUTH EVERY DAY AT [facility] 10/02/2018 03/30/2019 Ac tive - First Attempt Ref: [id number] naproxen 500 mg tablet RxNorm: 911565 1 Tablet(s) PO BID 09/18/2018 09/24/2018 Inactive diclofenac 1 % topic al gel RxNorm: 886502 2 Application TOP QID 09/18/2018 11/16/2018 Inactive Kenalog 40 mg/mL karl pension for injection RxNorm: 4139837 1 Milliliter(s) Inj 08/31/2018 08/31/2018 In active clonidine HCl 0.1 mg tablet RxNorm: 511480 1/2 Tablet(s) PO BID 08/16/2018 08/10/2019 Active amoxicillin 500 mg t ablet RxNorm: 927053 1 Tablet(s) PO TID 08/14/2018 08/20/2018 Inactive losartan 25 mg tablet RxNorm: 773148 1 Tablet(s) PO BID 05/02/2018 05/01/2018 Inactive losartan 25 mg tablet RxNorm: 825631 1 Tablet(s) PO BID 05/02/2018 10/31/2018 Inactive losartan 25 mg tablet RxNorm: 176667 1 Tablet(s) PO BID 01/30/2018 05/01/2018 Inactive Vitamin D 2,000 unit capsule RxNorm: 1 Capsule(s) PO daily 11/18/2017 No Stop Date Active atenolol 25 mg tablet RxNorm: 775925 1 Tablet(s) PO daily 11/18/2017 11/12/2018 Inactive atenolol 25 mg tablet RxNorm: 004655 1 Tablet(s) PO BID managed by Dr Lafleur 11/18/2017 11/17/2017 In active clonidine HCl 0.1 mg tablet RxNorm: 537862 1/2 Tablet(s) PO BID 11/18/2017 08/15/2018 Inactive doxazosin 1 mg tablet RxNorm: 219863 1 Tablet(s) PO daily at midnight 11/18/2017 10/01/2018 In active midnight losartan 25 mg tablet RxNorm: 849340 1 Tablet(s) PO BID 11/18/2017 01/29/2018 Inactive hydrochlorothiazide 12.5 mg tablet RxNorm: 146147 1 Tablet(s) PO daily 11/18/2017 10/01/2018 In active famotidine 40 mg tablet RxNorm: 756974 1 Tablet(s) PO daily TAKE 1 TABLET BY MO SCH EVERY MORNING 11/18/2017 10/01/2018 Inactive - Ref: [id number] hydrochlorothiazide 12.5 mg tablet RxNorm: 423330 1 Tablet(s) PO daily 10/28/2017 11/17/2017 In active famotidine 40 mg tablet RxNorm: 424803 TAKE 1 TABLET BY MOUTH EVERY MORNING 10/04/2017 11/17/2017 In active - Ref: [id number] clonidine HCl 0.1 mg tablet RxNorm: 153198 1/2 Tablet(s) PO BID 07/05/2017 11/17/2017 Inactive doxazosin 1 mg tablet RxNorm: 188426 1 Tablet(s) PO daily at midnight 07/05/2017 11/17/2017 In active midnight doxazosin 1 mg tablet RxNorm: 160548 1 Tablet(s) PO BID 12/02/2016 2017 Inactive midnight prednisone 20 mg tablet RxNorm: 218559 3 Tablet(s) PO daily 11/22/2016 11/26/2016 Inactive Tessalon Perles 100 mg capsule RxNorm: 326574 1 -2 Capsule(s) PO TI D as needed cough 11/19/2016 No Stop Date Active Zithromax Z-Jeff 250 mg tablet RxNorm: 258629 1 Tablet(s) PO UD 11/19/2016 12/01/2016 Inactive z pack as directed Tamiflu 75 mg capsule RxNorm: 793419 1 Capsule(s) PO BID 11/05/2016 11/09/2016 Inactive Kenalog 40 mg/mL karl pension for injection RxNorm: 3880753 Milliliter(s) Inj 11/05/2016 11/05/2016 In active Tessalon Perles 100 mg capsule RxNorm: 745829 1 -2 Capsule(s) PO TI D as needed cough 11/04/2016 11/18/2016 Inactive famotidine 40 mg tablet RxNorm: 379144 1 Tablet(s) PO QAM 10/25/2016 10/03/2017 Inactive famotidine 40 mg tablet RxNorm: 826808 1 Tablet(s) PO QAM 08/02/2016 10/24/2016 Inactive Carafate 1 gram tablet RxNorm: 759772 1 Tablet(s) PO TID DISSOLVE THE PILL IN 10ML OF WATER 07/22/2016 10/19/2016 Inactive clonidine HCl 0.1 mg tablet RxNorm: 420167 1 Tablet(s) PO BID an d 1 tablet as needed 07/22/2016 12/01/2016 Inactive Cinnamon 1000 mg RxNorm: 1 PO daily 05/19/2016 No Stop Date Active aspirin 81 mg tablet ,delayed release RxNorm: 783166 1 Tablet(s) PO QHS 05/19/2016 11/27/2018 In active losartan 25 mg tablet RxNorm: 122063 1 Tablet(s) PO BID 05/19/2016 11/17/2017 Inactive atenolol 25 mg tablet RxNorm: 599241 1.5 Tablet(s) PO BID 02/13/2016 07/21/2016 Inactive losartan 25 mg tablet RxNorm: 038198 2 Tablet(s) PO BID 01/13/2016 05/11/2016 Inactive Cardizem CD 240 mg c apsule,extended release RxNorm: 800734 1 Capsule(s) PO daily 01/13/2016 02/12/2016 In active losartan 100 mg tablet RxNorm: 311757 1/2 Tablet(s) PO BID 01/08/2016 01/12/2016 Inactive losartan 25 mg tablet RxNorm: 168017 2 Tablet(s) PO QPM 1 Tablet(s) PO QPM 12/18/2015 01/07/2016 In active atenolol 25 mg tablet RxNorm: 358973 1.5 Tablet(s) PO BID TAKE ONE TABLET BY MOUTH TWICE A DAY 12/18/2015 01/12/2016 Inactive atenolol 25 mg tablet RxNorm: 782535 Tablet(s) TAKE ONE TABLET BY MOUTH TWICE A DAY 11/14/2015 12/17/2015 Inactive losartan 25 mg tablet RxNorm: 890091 Tablet(s) 1 Tablet(s) PO QPM 11/14/2015 12/17/2015 Inactive spironolactone 25 mg tablet RxNorm: 019078 1 Tablet(s) PO daily 11/14/2015 12/14/2015 Inactive atenolol 25 mg tablet RxNorm: 052462 TAKE ONE TABLET BY MOUTH TWICE A DAY 08/07/2015 11/13/2015 In active atenolol 25 mg tablet RxNorm: 323113 1 Tablet(s) PO daily TAKE ONE TABLET BY MOUTH TWICE DAILY 08/06/2015 08/06/2015 Inactive Generic For:TENORMIN 25 MG TABLET 05/05/2015 10:00:22 AM atenolol 25 mg tablet RxNorm: 846327 1 Tablet(s) PO daily TAKE ONE TABLET BY MOUTH TWICE DAILY 08/06/2015 08/05/2015 Inactive Generic For:TENORMIN 25 MG TABLET 05/05/2015 10:00:22 AM betamethasone diprop ionate 0.05 % topical ointment RxNorm: 730816 1 TOP TID as needed rash 07/09/2015 05/18/2016 Inactive betamethasone diprop ionate 0.05 % topical ointment RxNorm: 303987 1 TOP TID as needed rash 07/09/2015 07/08/2015 Inactive spironolactone 25 mg tablet RxNorm: 905299 1 Tablet(s) PO daily 07/09/2015 07/08/2015 Inactive spironolactone 25 mg tablet RxNorm: 675449 1 Tablet(s) PO daily 07/09/2015 11/13/2015 Inactive losartan 25 mg tablet RxNorm: 720682 Tablet(s) 1 Tablet(s) PO QPM 05/27/2015 11/13/2015 Inactive atenolol 25 mg tablet RxNorm: 720762 TAKE ONE TABLET BY MOUTH TWICE DAILY 05/05/2015 08/05/2015 In active Generic For:TENORMIN 25 MG TABLET 05/05 10:00:22 AM hydrochlorothiazide 25 mg tablet RxNorm: 678311 1/2 Tablet(s) PO BID 02/17/2015 07/08/2015 Inactive Generic For:HYDRODIURIL 25 MG TABLET sulfamethoxazole 800 mg-trimethoprim 160 mg tablet RxNorm: 111620 1 Tablet(s) PO BID 01/16/2015 01/25/2015 Inactive losartan 25 mg tablet RxNorm: 181915 1 Tablet(s) PO QPM 12/09/2014 05/26/2015 Inactive Kenalog 40 mg/mL karl pension for injection RxNorm: 6739278 1 Milliliter(s) Inj 09/16/2014 09/16/2014 In active prednisone 20 mg tablet RxNorm: 754893 3 Tablet(s) PO daily 09/16/2014 09/18/2014 Inactive losartan 25 mg tablet RxNorm: 362466 1 Tablet(s) PO QPM 08/15/2014 12/08/2014 Inactive hydrochlorothiazide 25 mg tablet RxNorm: 573771 TAKE 1/2 TABLET BY MO UT TWICE DAILY 08/13/2014 02/08/2015 Inactive Generic For:HYDRODIURIL 25 MG TABLET atenolol 25 mg tablet RxNorm: 002935 TAKE ONE TABLET BY MOUTH TWICE DAILY 05/07/2014 05/01/2015 In active Generic For:TENORMIN 25 MG TABLET ketorolac 60 mg/2 mL intramuscular solution RxNorm: 213524 2 Milliliter(s) IM 03/20/2014 03/20/2014 In active hydrochlorothiazide 25 mg tablet RxNorm: 015917 Tablet(s) PO TAKE 1/2 TABLET BY MOUTH TWICE DAILY 02/14/2014 08/12/2014 Inactive Generic For:HYDRODIURIL 25 MG TABLET Generic For:HYDRODIURIL 25 MG TABLET 02/14/2014 3:45:03 PM atorvastatin 10 mg t ablet RxNorm: 267093 1 Tablet(s) PO TIW 09/17/2013 03/19/2014 Inactive atorvastatin 10 mg t ablet RxNorm: 761411 tablet oral 09/17/2013 06/04/2015 Inactive hydrochlorothiazide 25 mg tablet RxNorm: 284269 Tablet(s) PO TAKE 1/2 TABLET BY MOUTH TWICE DAILY 08/06/2013 02/13/2014 Inactive Generic For:HYDRODIURIL 25 MG TABLET Generic For:HYDRODIURIL 25 MG TABLET 08/06/2013 1:52:35 PM amoxicillin 500 mg t ablet RxNorm: 453615 2 Tablet(s) PO 2 tabl ets PO 1 hour before dental procedure. 07/26/2013 07/25/2013 Inactive amoxicillin 500 mg t ablet RxNorm: 344019 2 Tablet(s) PO 2 tabl ets PO 1 hour before dental procedure. 07/26/2013 07/26/2013 Inactive methotrexate sodium 2.5 mg tablet RxNorm: 623540 tablet oral 07/13/2013 01/15/2015 Inactive atenolol 25 mg tablet RxNorm: 230314 Tablet(s) PO TAKE ONE TABLET BY MOUTH TW ICE DAILY 05/01/2013 05/06/2014 Inactive Generic For:TENORMIN 25 MG TABLET hydrochlorothiazide 25 mg tablet RxNorm: 683929 Tablet(s) PO TAKE 1/2 TABLET BY MOUTH TWICE DAILY 11/21/2012 08/05/2013 Inactive Generic For:HYDRODIURIL 25 MG TABLET atenolol 25 mg tablet RxNorm: 664711 Tablet(s) PO TAKE ONE TABLET BY MOUTH TW ICE DAILY 10/02/2012 04/30/2013 Inactive Generic For:TENORMIN 25 MG TABLET gemfibrozil 600 mg t ablet RxNorm: 323656 1 Tablet(s) PO BID 06/08/2012 10/08/2012 Inactive meclizine 25 mg tablet RxNorm: 7152107 1 Tablet(s) PO Q4 PRN 06/08/2012 09/05/2012 Inactive prednisone 10 mg Tab RxNorm: 784004 2 Tablet(s) PO daily 03/16/2012 03/20/2012 Inactive atorvastatin 10 mg Tab RxNorm: 288855 1 Tablet(s) PO daily 12/21/2011 12/20/2011 Inactive atorvastatin 10 mg Tab RxNorm: 457646 1 Tablet(s) PO daily 12/21/2011 06/08/2012 Inactive methotrexate sodium 2.5 mg Tab RxNorm: 916140 Tablet(s) PO 11/16/2011 06/12/2012 Inactive 3 on tuesday3 on hydrochlorothiazide 25 mg Tab RxNorm: 489514 1/2 Tablet(s) PO BID 11/01/2011 11/24/2012 Inactive hydrochlorothiazide 12.5 mg Cap RxNorm: Capsule(s) PO 11/01/2011 06/08/2012 Inactive TAKE ONE TABLET BY MOUTH TWICE DAILY;Gen sky For:MICROZIDE 12.5 MG CAPSULE hydrochlorothiazide 25 mg Tab RxNorm: 245329 1/2 Tablet(s) PO BID 11/01/2011 11/24/2012 Inactive hydrochlorothiazide 25 mg tablet RxNorm: 907246 1/2 Tablet(s) PO BID 11/01/2011 10/31/2011 Inactive hydrochlorothiazide 25 mg Tab RxNorm: 259034 1/2 Tablet(s) PO BID 11/01/2011 10/31/2011 Inactive atenolol 25 mg tablet RxNorm: 357582 Tablet(s) PO 10/04/2011 10/01/2012 Inactive TAKE ONE TABLET BY MOUTH TWICE DAILY;Generic For:TENORMIN 25 MG TABLET hydrochlorothiazide 12.5 mg Cap RxNorm: 926259 1 Capsule(s) PO BID 09/13/2011 10/31/2011 Inactive Influenza Virus Vacc ine 0.5 mL RxNorm: IM 07/13/2011 07/13/2011 Inactive Pneumovax 23 25 mcg/ 0.5 mL Injection RxNorm: 941354 Milliliter(s) Inj 07/13/2011 07/13/2011 In active Phenergan VC-Codeine 6.25 mg-5 mg-10 mg/5 mL syrup RxNorm: 463440 5 Milliliter(s) PO Q6 as needed No Start Date Active [place] 3 Cap RxNorm: 1 Capsule(s) PO BID No Start Date Active Cinnamon 1000 mg RxNorm: 2 PO daily No Start Date Active atenolol 25 mg Tab RxNorm: 680156 1 Tablet(s) PO BID No Start Date 10/03/2011 Inactive niacin ER 500 mg Cap RxNorm: 934611 1 Capsule(s) PO daily No Start Date 06/08/2012 Inactive gemfibrozil 600 mg t ablet RxNorm: 575143 1 Tablet(s) PO BID No Start Date 06/07/2012 Inactive Vitamin C 500 mg Tab RxNorm: 474344 1 Tablet(s) PO daily No Start Date 07/21/2016 Inactive Zithromax Z-Jeff 250 mg tablet RxNorm: 559186 1 Tablet(s) PO UD No Start Date 11/18/2016 Inactive z pack as directed doxazosin 1 mg tablet RxNorm: 954160 1 Tablet(s) PO BID No Start Date 12/01/2016 Inactive vitamin E (dl, aceta te) 400 unit Cap RxNorm: 403641 1 Capsule(s) PO daily No Start Date 07/21/2016 Inactive famotidine 40 mg tablet RxNorm: 140323 1 Tablet(s) PO QAM No Start Date 08/01/2016 Inactive hydrochlorothiazide 25 mg Tab RxNorm: 909770 1/2 Tablet(s) PO BID No Start Date 09/12/2011 Inactive Tessalon Perles 100 mg capsule RxNorm: 255061 1 -2 Capsule(s) PO TI D as needed cough No Start Date 11/03/2016 Inactive aspirin 81 mg Tab, D elayed Release RxNorm: 337003 1 Tablet(s) PO every other day No Start Date 05/18/2016 Inactive Cinnamon 1000 mg RxNorm: 2 PO daily No Start Date 05/18/2016 Inactive clonidine HCl 0.1 mg tablet RxNorm: 780219 1 Tablet(s) PO QHS an d 1 Tablet as needed No Start Date 07/21/2016 Inactive niacin 500 mg tablet RxNorm: 641285 1 Tablet(s) PO QHS No Start Date 01/01/2015 Inactive multivitamin Tab RxNorm: 1 Tablet(s) PO daily No Start Date 07/21/2016 Inactive methotrexate sodium 2.5 mg Tab RxNorm: 742028 Tablet(s) PO No Start Date 11/15/2011 Inactive 3 on tuesday3 on T-Bio RxNorm: 1 PO daily No Start Date 05/18/2016 Inactive Vitamin D 2,000 unit Cap RxNorm: 1 Capsule(s) PO daily No Start Date 07/21/2016 Inactive hydrochlorothiazide 12.5 mg tablet RxNorm: 595961 1 Tablet(s) PO daily No Start Date 10/27/2017 Inactive Medication Administered Medication Codes Instruc tions Start Date Status Kenalog 40 mg/mL suspension for injection RxNorm: 4026136 1Milliliter 08/31/2018 N o longer Active Kenalog 40 mg/mL suspension for injection RxNorm: 2504846 Milliliter 11/05/2016 No longer Active Kenalog 40 mg/mL suspension for injection RxNorm: 5325687 1Milliliter 09/16/2014 N o longer Active ketorolac 60 mg/2 mL intramuscular solution RxNorm: 427222 2Milliliter 03/20/2014 N o longer Active Influenza Virus Vaccine 0.5 mL RxNorm: 07/13/2011 No longer Active Pneumovax 23 25 mcg/0.5 mL Injection RxNorm: 333225 Milliliter 07/13/2011 No longer Active Immunizations Vaccine Codes Date Status Influenza CVX: 141 07/06 completed Influenza CVX: 141 07/05 completed Influenza CVX: 141 07/22 completed Influenza CVX: 141 09/17 completed Influenza CVX: 141 10/13 completed Influenza CVX: 141 07/13 completed Pneumococcal (Adult) CVX: 33 07/13/2011 completed Assessments Condition Codes Effectiv e Dates Gastro-esophageal reflux disease without esophagitis ICD-10: K21.9 [...] 02/03/2012 VITAMIN DEFICIENCY ICD-9: 269.2 11/04/2011 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 07/13/2011 Postprandial bloating ICD-9: 787.3 07/13/2011 Seasonal allergies ICD-9: 477.9 07/13/2011 VAC STREP PNEUMONIAE-FLU ICD-9: V06.6 07/13/2011 Reason For Visit Reason For Visit Effective Dates Notes myalgias 12/18/2018 low back pain 09/18/2018 nasal [...] Ord64 K 3.8 mEq/L 12/06/2016 Comp Metabolic Pwz995 NA 134 mEq/L 12/03/2016 Comp Metabolic Hxq748 K Specimen 3+ Hemolyzed mEq/L 12/04/19 17 Comp Metabolic Cvf849 CL 106 mEq/L 12/03/2016 Comp Metabolic Lbi392 CO2 20.0 mEq/L 12/03/2016 Comp Metabolic Yuk579 AN ION GAP 16 12/03/2016 Comp Metabolic Rep510 GL UCOSE 93 mg/dL 12/03/2016 Comp Metabolic Mps846 Cr eat 0.8 mg/dL 12/03/2016 Comp Metabolic Nch032 eG FR 73 ml/min/1.73m2 12/03 Comp Metabolic Cbb171 BUN 14 mg/dL 12/03/2016 Comp Metabolic Cox197 B/ C Ratio 17.1 Ratio 12/03/2016 Comp Metabolic Xcz224 CA LCIUM 9.3 mg/dL 12/03/2016 Comp Metabolic Kib454 AL K PHOS 63 U/L 12/03/2016 Comp Metabolic Msi060 T(SGOT) 69 U/L 12/03/2016 Comp Metabolic Cad995 AL T(SGPT) 33 U/L 12/03/2016 Comp Metabolic Tij716 BI LI T 1.0 mg/dL 12/03/2016 Comp Metabolic Qhv053 AL BUMIN 4.3 g/dL 12/03/2016 Comp Metabolic Jda673 TP RO 6.7 g/dL 12/03/2016 Comp Metabolic Ibq434 GL OB 2.4 g/dL 12/03/2016 Comp Metabolic Hlp603 A/ G Ratio 1.7 Ratio 12/03/2016 Comp Metabolic Hzr736 Os mo 268 mOsmo 12/03/2016 Comp Metabolic Afo247 NA 138 mEq/L 12/18/2015 Comp Metabolic Wnd531 K 4.1 mEq/L 12/18/2015 Comp Metabolic Ter651 CL 104 mEq/L 12/18/2015 Comp Metabolic Awp427 CO2 22.0 mEq/L 12/18/2015 Comp Metabolic Bbi222 AN ION GAP 16 12/18/2015 Comp Metabolic Ksp651 GL UCOSE 89 mg/dL 12/18/2015 Comp Metabolic Lht350 Cr eat 0.6 mg/dL 12/18/2015 Comp Metabolic Pkj615 eG FR 99 ml/min/1.73m2 12/17 Comp Metabolic Tii597 BUN 15 mg/dL 12/18/2015 Comp Metabolic Mee745 B/ C Ratio 23.8 Ratio 12/18/2015 Comp Metabolic Jbc330 CA LCIUM 10.4 mg/dL 12/18/2015 Comp Metabolic Gsz981 AL K PHOS 77 U/L 12/18/2015 Comp Metabolic Idk836 T(SGOT) 19 U/L 12/18/2015 Comp Metabolic Txe418 AL T(SGPT) 17 U/L 12/18/2015 Comp Metabolic Alw087 BI LI T 0.8 mg/dL 12/18/2015 Comp Metabolic Eiy184 AL BUMIN 4.3 g/dL 12/18/2015 Comp Metabolic Vjo707 TP RO 6.7 g/dL 12/18/2015 Comp Metabolic Yir399 GL OB 2.4 g/dL 12/18/2015 Comp Metabolic Ogb882 A/ G Ratio 1.7 Ratio 12/18/2015 Comp Metabolic Dmf738 Os mo 276 mOsmo 12/18/2015 Cbc With [...] 29.5 pg 12/18/2015 Cbc With Differential Ord2 [place]% 9.4 % 12/18/2015 Cbc With Differential Ord2 [...] 2.57 K/ul 12/18/2015 Cbc With Differential Ord2 [place] ABS# 0.8 K/ul 12/18/2015 Cbc With Differential Ord2 Eos ABS# 0.1 K/ul 12/18/2015 Cbc With Differential Ord2 Baso ABS# 0.0 K/ul 12/18/2015 Cbc With Differential Ord2 New Analyzer Notice Please note new ref ranges s tarting 10-15-2015 due to implemntation of new five part differential hematolgy analyzer. 12/18/2015 Total T3 Ord42 TT3 1.0 ng/ml 07/10/2015 Free T4 Jux545 FREE T4 0.90 ng/dL 07/09/2015 Free T3 Msx808 Free T3 2.92 pg/ml 07/09/2015 Tsh Ord6 hTSH II 1.18 uIU/mL 07/09/2015 URINALYSIS NONAUTO W/O SCOPE 13592 Specific [place] 1.005 DateTime(Free Text in Aprima) URINALYSIS NONAUTO W/O SCOPE 84435 PH 6 DateTime(Free Text in Aprima) URINALYSIS NONAUTO W/O SCOPE 75697 GLUCOSE neg DateTime(Free Dano t in Aprima) URINALYSIS NONAUTO W/O SCOPE 81677 Protein neg DateTime(Free Dano t in Aprima) URINALYSIS NONAUTO W/O SCOPE 59199 Blood neg DateTime(Free Dano t in Aprima) URINALYSIS NONAUTO W/O SCOPE 49639 Bilirubin neg DateTime(Free Dano t in Aprima) URINALYSIS NONAUTO W/O SCOPE 53248 Ketones neg DateTime(Free Dano t in Aprima) URINALYSIS NONAUTO W/O SCOPE 75001 Urobilinogen neg DateTime(Free Text in Aprima) URINALYSIS NONAUTO W/O SCOPE 61257 Nitrite neg DateTime(Free Dano t in ) URINALYSIS NONAUTO W/O SCOPE 49683 Leukocytes neg DateTime(Free Text in ) Review of Systems System Result Effective Dates Constitutional No recent illness 12/18/2018 Constitutional No [...] masses 01/17/2013 None Full Exam - General 1995 Neck inspection of neck Overall: normal size 01/17/2013 None Full Exam - General 1994 Neck inspection of neck Overall: normal appearance 01/17/2013 None Full Exam - General 1995 Respiratory auscultation Overall: breath sounds clear bilaterally 01/17/2013 None Full Exam - General 1995 Respiratory respiratory effort/rhythm Overall: no retractions 01/17/2013 [...] sounds 04/10/2012 None Full Exam - General 1995 Abdomen abdominal exam Contour: rounded 04/10/2012 None Full Exam - General 1995 Abdomen abdominal exam Bowel sounds: a normal exam 04/10/2012 None Full Exam - General 1995 Musculoskeletal head and neck Overall: head atraumatic 04/10/2012 None Full Exam - General 1994 Neurologic gait Conventional walking: ataxic rhythm 04/10/2012 None Full Exam - General 1995 Neurologic gait Conventional walking: wide-based 04/10/2012 None [...] size 11/04/2011 None Full Exam - General 1995 [...] Formatting Model/CDA Sections, Assigned to/Kimberley Fagan CPT-4: 67717Phuudmg 07/06/2018 ADMIN INFLUENZA VIRU S VAC CPT-4: G0008 07/05/2017 FLU VACC PRSV FREE I NC ANTIG CPT-4: 00816 07/05/2017 THER/PROPH/DIAG INJ SC/IM CPT-4: 26758 11/05/2016 TRIAMCINOLONE ACET I [place] NOS CPT-4: J3301 11/05/2016 TRIAMCINOLONE ACET I [place] NOS CPT-4: J3301 09/16/2014 DRAIN/INJECT JOINT/B URSA CPT-4: 35475 09/16/2014 KETOROLAC TROMETHAMI NE INJ CPT-4: J1885 03/20/2014 URINALYSIS NONAUTO W /O SCOPE CPT-4: 68755 12/10/2013 PRESCRIP TRANSMIT A ERX SY CPT-4: G8553 09/17/2013 PRESCRIP TRANSMIT A ERX SY CPT-4: G8553 06/08/2012 TRIAMCINOLONE ACET I [place] NOS CPT-4: J3301 03/16/2012 INJ TRIGGER POINT 1/ 2 MUSCL CPT-4: 30999 03/16/2012 PRESCRIP TRANSMIT A ERX SY CPT-4: G8553 03/16/2012 ADMIN INFLUENZA VIRU S VAC CPT-4: G0008 07/13/2011 FLULAVAL VACC, 3 YRS & >, IM CPT-4: Q2036 07/13/2011 ADMIN PNEUMOCOCCAL V ACCINE SNOMED CT: [id number] CPT-4: G0009 07/13/2011 Pneumococcal Polysac charide Vaccine, 23-Valent, Ad CPT-4: 25761 07/13/2011 Vital Signs Date Vital 12/18/2018 Blood Pressure 1: 120/62 Code: 8480-6 BMI: 36.0 Code: 26968-1 Heart Rate 1: 67 bpm Height: 5'3" SpO2: 97% Weight: 203 lbs 09/18/2018 Blood Pressure 1: 126/70 Code: 8480-6 BMI: 36.3 Code: 01929-6 Heart Rate 1: 58 bpm Height: 5'3" SpO2: 98% Weight: 205 lbs 08/31/2018 Blood Pressure 1: 148/76 Code: 8480-6 BMI: 37.0 Code: 29389-1 Heart Rate 1: 60 bpm Height: 5'3" SpO2: 98% Weight: 209 lbs 08/14/2018 Blood Pressure 1: 140/80 Code: 8480-6 BMI: 37.2 Code: 61007-9 Heart Rate 1: 76 bpm Height: 5'3" SpO2: 96% Weight: 210 lbs 05/22/2018 Blood Pressure 1: 150/62 Code: 8480-6 BMI: 36.7 Code: 60936-3 Heart Rate 1: 74 bpm Height: 5'3" SpO2: 98% Weight: 207 lbs 11/18/2017 Blood Pressure 1: 122/66 Code: 8480-6 BMI: 35.8 Code: 73874-7 Heart Rate 1: 59 bpm Height: 5'3" SpO2: 97% Weight: 202 lbs 08/03/2017 Blood Pressure 1: 122/60 Code: 8480-6 BMI: 36.0 Code: 01086-8 Heart Rate 1: 60 bpm Height: 5'3" SpO2: 97% Weight: 203 lbs 07/05/2017 Blood Pressure 1: 140/76 Code: 8480-6 BMI: 36.0 Code: 06309-7 Heart Rate 1: 58 bpm Height: 5'3" SpO2: 98% Weight: 203 lbs 12/02/2016 Blood Pressure 1: 122/70 Code: 8480-6 BMI: 34.4 Code: 40896-5 Heart Rate 1: 66 bpm Height: 5'3" SpO2: 99% Temperature: 36.4 (C ) / 97.5 (F) Weight: 194 lbs 11/22/2016 Blood Pressure 1: 102/60 Code: 8480-6 BMI: 34.2 Code: 79345-5 Heart Rate 1: 110 bpm Height: 5'3" SpO2: 98% Temperature: 36.7 (C ) / 98.0 (F) Weight: 193 lbs 11/05/2016 Blood Pressure 1: 140/62 Code: 8480-6 BMI: 36.1 Code: 55086-8 Heart Rate 1: 102 bpm Height: 5'3" SpO2: 97% Temperature: 37.1 (C ) / 98.7 (F) Weight: 204 lbs 07/22/2016 Blood Pressure 1: 158/80 Code: 8480-6 Blood Pressure 1: 160/76 Code: 8480-6 BMI: 36.8 Code: 57030-5 Heart Rate 1: 56 bpm Height: 5'3" SpO2: 98% Weight: 208 lbs 05/19/2016 Blood Pressure 1: 150/78 Code: 8480-6 Blood Pressure 1: 122/69 Code: 8480-6 BMI: 37.0 Code: 56013-4 Heart Rate 1: 61 bpm Height: 5'3" SpO2: 98% Weight: 209 lbs 02/13/2016 Blood Pressure 1: 140/76 Code: 8480-6 BMI: 36.8 Code: 17044-8 Heart Rate 1: 64 bpm Height: 5'3" SpO2: 97% Weight: 208 lbs 01/13/2016 Blood Pressure 1: 170/70 Code: 8480-6 BMI: 36.8 Code: 45358-6 Heart Rate 1: 65 bpm Height: 5'3" SpO2: 95% Weight: 208 lbs 01/02/2016 Blood Pressure 1: 150/88 Code: 8480-6 BMI: 36.8 Code: 58510-3 Heart Rate 1: 61 bpm Height: 5'3" SpO2: 98% Weight: 208 lbs 12/18/2015 Blood Pressure 1: 148/90 Code: 8480-6 BMI: 37.6 Code: 16199-7 Heart Rate 1: 64 bpm Height: 5'3" SpO2: 96% Weight: 212 lbs 09/08/2015 Blood Pressure 1: 130/88 Code: 8480-6 BMI: 37.0 Code: 75308-6 Heart Rate 1: 62 bpm Height: 5'3" SpO2: 97% Weight: 209 lbs 07/09/2015 Blood Pressure 1: 142/82 Code: 8480-6 BMI: 36.4 Code: 65865-3 Heart Rate 1: 66 bpm Height: 5'3" SpO2: 97% Weight: 205 lbs 5 oz 01/16/2015 Blood Pressure 1: 122/80 Code: 8480-6 BMI: 35.6 Code: 70256-3 Heart Rate 1: 67 bpm Height: 5'3" SpO2: 98% Weight: 201 lbs 01/03/2015 Blood Pressure 1: 122/70 Code: 8480-6 BMI: 35.6 Code: 73367-6 Heart Rate 1: 61 bpm Height: 5'3" Respiratory Rate: 16 bpm SpO2: 98% Weight: 201 lbs 09/16/2014 Blood Pressure 1: 132/78 Code: 8480-6 BMI: 34.9 Code: 01960-3 Heart Rate 1: 56 bpm Height: 5'3" Weight: 197 lbs 08/15/2014 Blood Pressure 1: 152/80 Code: 8480-6 Blood Pressure 2: 160/82 Code: 8480-6 BMI: 34.0 Code: 61235-6 Heart Rate 1: 75 bpm Height: 5'3" Weight: 192 lbs 06/12/2014 Blood Pressure 1: 136/82 Code: 8480-6 BMI: 34.9 Code: 69337-2 Heart Rate 1: 58 bpm Height: 5'3" SpO2: 96% Weight: 197 lbs 03/20/2014 Blood Pressure 1: 140/72 Code: 8480-6 BMI: 34.9 Code: 21034-9 Heart Rate 1: 60 bpm Height: 5'3" Weight: 197 lbs 12/10/2013 Blood Pressure 1: 132/78 Code: 8480-6 BMI: 35.1 Code: 57162-2 Heart Rate 1: 68 bpm Height: 5'3" Weight: 198 lbs 09/17/2013 Blood Pressure 1: 128/78 Code: 8480-6 BMI: 34.9 Code: 56017-8 Heart Rate 1: 68 bpm Height: 5'3" Weight: 197 lbs 05/21/2013 Blood Pressure 1: 128/82 Code: 8480-6 BMI: 35.6 Code: 33823-4 Heart Rate 1: 80 bpm Height: 5'3" Weight: 201 lbs 01/17/2013 Blood Pressure 1: 138/72 Code: 8480-6 BMI: 36.7 Code: 06835-1 Heart Rate 1: 60 bpm Height: 5'3" [...] 1: 140/78 Code: 8480-6 BMI: 40.0 Code: 06956-1 Heart Rate 1: 64 bpm Height: 5'3" Respiratory Rate: 16 bpm Weight: 226 lbs 11/04/2011 Blood Pressure 1: 136/76 Code: 8480-6 Heart Rate 1: 68 bpm Respiratory Rate: 16 bpm Weight: 226 lbs 07/13/2011 Blood Pressure 1: 142/80 Code: 8480-6 BMI: 40.0 Code: 11946-6 Heart Rate 1: 60 bpm Height: 5'4" Respiratory Rate: 16 bpm Weight: 233 lbs Functional Status No Functional Status data History of Present Illness Symptom Name Status Resu lt Effective Date Notes Location diffusely 12/18/2018 None Quality intermittent 12/18/2018 [...] hypertension Pertinent Findings edema 12/02/2016 -wears christine clarkea lly hypertension Blood Pressure Values pt checking [...] Pertinent Findings Denies edema 11/22/2016 -wears christine clarkea lly cough Quality intermitte nt 11/22/2016 None [...] Encounters Encounter Performer Loca tion Codes Date ([id number]) 33939 EST. 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 CPT-4: 22447 12/18/2018 ([id number]) 93998 EST. 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 CPT-4: 88401 09/18/2018 ([id number]) 11880 EST. P ATIENT, LEVEL III Diagnosis: Nasal congestion[ICD10: R09.81] Diagnosis: Other allergic rhinitis[ICD10: J30.89] Юлия Manuel MD, [facility] CPT-4: 09362 08/31/2018 ([id number]) 31598 EST. P ATIENT, LEVEL III Diagnosis: Acute recurrent maxillary sinusitis[ICD10: J01.01] Юлия Manuel MD, [facility] CPT-4: 29280 08/14/2018 44905 EST. PATIENT, LEVEL III Diagnosis: Pain in right shoulder[ICD10: M25.511] Diagnosis: Pain in right arm[ICD10: M79.601] Willow Manuel MD, [facility] CPT-4: 83964 05/22/2018 ([id number]) 43245 EST. 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 CPT-4: 41792 11/18/2017 45512 EST. PATIENT, LEVEL III Diagnosis: Other specified intestinal infections[ICD10: A08.8] Willow Manuel MD, [facility] CPT-4: 02997 08/03/2017 ([id number]) 37163 EST. 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 CPT-4: 33736 07/05/2017 ([id number]) 05897 EST. P ATIENT, LEVEL III Diagnosis: Essential (primary) hypertension[ICD10: I10] Юлия Manuel MD, [facility] CPT-4: 04777 12/02/2016 ([id number]) 13324 EST. P ATIENT, LEVEL III Diagnosis: Essential (primary) hypertension[ICD10: I10] Diagnosis: Allergic rhinitis due to pollen[ICD10: J30.1] Giuliana Manuel MD, C CPT-4: 72346 11/22/2016 86812 EST. PATIENT, LEVEL III Diagnosis: Acute laryngopharyngitis[ICD10: J06.0] Diagnosis: Influenza due to unidentified influenza virus with other respiratory manifestations[ICD10: J11.1] Willow Manuel MD, [facility] CPT-4: 57289 11/05/2016 ([id number]) 67817 EST. P ATIENT, LEVEL III Diagnosis: Gastro-esophageal reflux disease without esophagitis[ICD10: K21.9] Diagnosis: Essential (primary) hypertension[ICD10: I10] Giuliana Manuel MD, [facility] CPT-4: 57907 07/22/2016 ([id number]) 85115 EST. P ATIENT, LEVEL IV Diagnosis: Essential (primary) hypertension[ICD10: I10] Diagnosis: Abdominal distension (gaseous)[ICD10: R14.0] Giuliana Manuel MD, [facility] CPT-4: 96066 05/19/2016 ([id number]) 14248 EST. P ATIENT, LEVEL III Diagnosis: Essential (primary) hypertension[ICD10: I10] Юлия Manuel MD, [facility] CPT-4: 96970 02/13/2016 ([id number]) 08437 EST. P ATIENT, LEVEL III Diagnosis: Essential (primary) hypertension[ICD10: I10] Юлия Manuel MD, [facility] CPT-4: 63574 01/13/2016 30549 EST. PATIENT, LEVEL IV Diagnosis: Essential (primary) hypertension[ICD10: I10] Diagnosis: Body mass index (BMI) 36.0-36.9, adult[ICD10: Z68.36] Willow Manuel MD, [facility] CPT-4: 72978 01/02/2016 ([id number]) 31573 EST. P ATIENT, LEVEL III Diagnosis: Essential (primary) hypertension[ICD10: I10] Юлия Manuel MD, [facility] CPT-4: 88363 12/18/2015 ([id number]) 29298 EST. P ATIENT, LEVEL IV Diagnosis: Essential (primary) hypertension[ICD10: I10] Diagnosis: Benign paroxysmal vertigo, bilateral[ICD10: H81.13] Diagnosis: Radiculopathy, cervical region[ICD10: M54.12] Giuliana Manuel MD, [facility] CPT-4: 58773 09/08/2015 ([id number]) 81827 EST. P ATIENT, LEVEL IV Diagnosis: Other specified nonscarring hair loss[ICD10: L65.8] Diagnosis: Myositis, unspecified[ICD10: M60.9] Diagnosis: Psoriasis, unspecified[ICD10: L40.9] Diagnosis: Essential (primary) hypertension[ICD10: I10] Giuliana Manuel MD, [facility] CPT-4: 99472 07/09/2015 ([id number]) 44603 EST. P ATIENT, LEVEL III Diagnosis: ESSENTIAL HYPERTENSION[ICD9: 401.9] Giuliana Manuel MD, [facility] CPT- 4: 34894 01/16/2015 ([id number]) 38358 EST. P ATIENT, LEVEL III Diagnosis: Shoulder pain[ICD9: 719.41] Diagnosis: ESSENTIAL HYPERTENSION[ICD9: 401.9] Diagnosis: PALPITATIONS[ICD9: 785.1] Giuliana Manuel MD, [facility] CPT-4: 58654 01/03/2015 ([id number]) 50193 EST. P ATIENT, LEVEL III Diagnosis: Sacroiliitis[ICD9: 720.2] Diagnosis: Back pain[ICD9: 724.5] Diagnosis: ESSENTIAL HYPERTENSION[ICD9: 401.9] Giuliana Manuel MD, [facility] CPT- 4: 77294 09/16/2014 ([id number]) 68719 EST. P ATIENT, LEVEL IV Diagnosis: ESSENTIAL HYPERTENSION[ICD9: 401.9] Diagnosis: Arrhythmia[ICD9: 427.9] Diagnosis: Nausea[ICD9: 787.02] Giuliana Manuel MD, [facility] CPT-4: 28800 08/15/2014 ([id number]) 67772 EST. P ATIENT, LEVEL IV Diagnosis: ESSENTIAL HYPERTENSION[ICD9: 401.9] Diagnosis: Back pain[ICD9: 724.5] Diagnosis: Allergic reaction[ICD9: 995.3] Giuliana Manuel MD, [facility] CPT-4: 47886 06/12/2014 ([id number]) 86246 EST. P ATIENT, LEVEL III Diagnosis: Thoracic back pain[ICD9: 724.1] Diagnosis: MYALGIA AND MYOSITIS[ICD9: 729.1] Giuliana Manuel MD, [facility] CPT-4: 15880 03/20/2014 ([id number]) 34411 EST. P ATIENT, LEVEL IV Diagnosis: HYPERLIPIDEMIA[ICD9: 272.4] Diagnosis: ESSENTIAL HYPERTENSION[SNOMED: 54666177] Diagnosis: ABDOM PAIN NOS SITE[ICD9: 789.00] Giuliana Manuel MD, [facility] CPT-4: 59416 12/10/2013 ([id number]) 01581 EST. P ATIENT, LEVEL IV Diagnosis: ESSENTIAL HYPERTENSION[SNOMED: 63341558] Diagnosis: HYPERLIPIDEMIA[ICD9: 272.4] Giuliana Manuel MD, [facility] CPT-4: 94002 09/17/2013 ([id number]) 68171 EST. P ATIENT, LEVEL IV Diagnosis: ESSENTIAL HYPERTENSION[SNOMED: 47328945] Diagnosis: OBESITY[ICD9: 278.00] Diagnosis: Back pain[ICD9: 724.5] Giuliana Manuel MD, [facility] CPT-4: 63869 05/21/2013 ([id number]) 31714 EST. P ATIENT, LEVEL IV Diagnosis: ESSENTIAL HYPERTENSION[SNOMED: 60658140] Diagnosis: HYPERLIPIDEMIA[ICD9: 272.4] Diagnosis: Abdominal pain[ICD9: 789.00] Diagnosis: BENIGN PAROXYSMAL VERTIGO[ICD9: 386.11] Giuliana Manuel MD, [facility] CPT-4: 92060 01/17/2013 ([id number]) 49040 EST. P ATIENT, LEVEL IV Diagnosis: ESSENTIAL HYPERTENSION[SNOMED: 32328592] Diagnosis: BENIGN PAROXYSMAL VERTIGO[ICD9: 386.11] Diagnosis: Hair loss[ICD9: 704.00] Diagnosis: Vitamin d deficiency[ICD9: 268.9] Diagnosis: Bleeding from the nose[ICD9: 784.7] Giuliana Manuel MD, [facility] CPT- 4: 55230 09/20/2012 31368 EST. PATIENT, LEVEL IV Diagnosis: BPPV (benign paroxysmal positional vertigo)[ICD9: 386.11] Diagnosis: HYPERLIPIDEMIA[ICD9: 272.4] Diagnosis: ESSENTIAL HYPERTENSION[SNOMED: 19911040] Giuliana Manuel MD, [facility] CPT-4: 01601 06/08/2012 ([id number]) 71477 EST. P ATIENT, LEVEL IV Diagnosis: BPPV (benign paroxysmal positional vertigo)[ICD9: 386.11] Diagnosis: Diverticulitis[ICD9: 562.11] Diagnosis: Abdominal pain[ICD9: 789.00] Giuliana Manuel MD, [facility] CPT-4: 38096 04/10/2012 ([id number]) 09730 EST. P ATIENT, LEVEL III Diagnosis: Neck pain[ICD9: 723.1] Diagnosis: Acute upper back pain[ICD9: 724.1] Giuliana Manuel MD, [facility] CPT- 4: 06763 03/16/2012 ([id number]) 50500 EST. P ATIENT, LEVEL IV Diagnosis: HYPERLIPIDEMIA[ICD9: 272.4] Diagnosis: ESSENTIAL HYPERTENSION[SNOMED: 16333004] Diagnosis: Constipation - functional[ICD9: 564.09] [facility] CPT-4: 92196 02/03/2012 ([id number]) 44729 EST. P ATIENT, LEVEL IV Diagnosis: HYPERLIPIDEMIA[ICD9: 272.4] Diagnosis: VITAMIN DEFICIENCY[ICD9: 269.2] Diagnosis: ESSENTIAL HYPERTENSION[SNOMED: 51933085] Giuliana Manuel MD, [facility] CPT-4: 72751 11/04/2011 43079 EST. 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 CPT-4: 68213 07/13/2011 Plan of Care Planned Activity Notes C odes Status Date Visit Plan: Hypertension - well con anyi [...] if the symptoms are not improving. 12/18/2018 Patient Education: Patient Medication Summary Completed 12/18/2018 Visit Plan: Hypertension - well con seanlled [...] back. 09/18/2018 Appointment: Giuliana Manuel WPtel: [phone] [facility] (15 min) Moderate 09/18/2018 Patient Education: [...] allergy spray. 08/31/2018 Appointment: Юлия Rojas WPtel: [phone] (15 min) Moderate 08/31/2018 Patient Education: [...] improve. 05/22/2018 Appointment: Willow Garcia WPtel: [phone] [facility] (15 min) Moderate 05/22/2018 Patient Education: [...] not improving. 11/18/2017 Appointment: Giuliana Manuel WPtel: [phone] [facility] (15 min) Moderate 11/18/2017 Patient Education: Patient Medication Summary Completed 11/18/2017 Appointment: Giuliana Manuel WPtel: [phone] [facility] (15 min) Moderate 11/07/2017 Visit [...] not improved. 08/03/2017 [facility]ment: [phone] (30 min) Complex 08/03/2017 Patient Education: Patient [...] daily. 07/05/2017 Appointment: Giuliana Manuel WPtel: [phone] [facility] (15 min) Moderate 07/05/2017 Patient Education: Patient Medication Summary Completed 07/05/2017 Patient Education: Obesity Completed 07/05/2017 Appointment: Giuliana Manuel WPtel: [phone] [facility] [place] (15 min) Moderate 06/27/2017 Appointment: Giuliana Manuel WPtel: [phone] [facility] (15 min) Moderate 06/21/2017 Appointment: Юлия Rojas WPtel: [phone] [phone] [place] (30 min) Complex 12/23/2016 Visit [...] HCTZ 12/02/2016 Appointment: Юлия Rojas WPtel: [phone] [phone] [place] (30 min) Complex 12/02/2016 Patient [...] 7 days 11/22/2016 Appointment: Giul[facility]el[phone] (15 min) Moderate 11/22/2016 Patient Education: Patient Medication Summary Completed 11/22/2016 Patient Education: Obesity Completed 11/22/2016 Visit Plan: Influenza - pt started on tamiflu - pt to start on anti-inflammatories, tylenol and monitor symptoms. Pt to call if not improving. Pt to alert any close contacts as to illness. 11/05/2016 Appointment: [phone] (30 min) Complex 11/05/2016 Patient Education: [...] carafate 07/22/2016 Appointment: Giul[facility] Manuel [facility]Ptel[phone] (15 min) Moderate 07/22/2016 Patient Education: Patient Medication Summary Completed 07/22/2016 Patient Education: Obesity Completed 07/22/2016 Care Plan: Referral Order SNOMED-CT : [id number] Pending 07/22/2016 Visit Plan: Hypertension - well [...] Obesity Completed 05/19/2016 Appointment: Giuliana Manuel WPtel: [facility] (15 min) Moderate 05/17/2016 Visit Plan: Hypertension - well con trolled - continue with current medications, continue with no added salt diet. Pt has been encouraged to exercise daily. The pt has been advised to call the office if there are any acute concerns about change in blood pressure readings at home. 02/13/2016 Appointment: Юлия Rojas WPtel: [phone] (30 min) Complex 02/13/2016 Patient Education: [...] Obesity Completed 12/18/2015 Appointment: Giuliana Manuel WPtel: [phone] (15 min) Moderate 12/08/2015 [facility]: [facility] [place] Referral Completed 10/17/2015 Visit Plan: Hypertension - [...] stress test. 09/08/2015 Appointment: Giuliana Manuel WPtel: [address] [place], [place] [phone] (15 min) Moderate 09/08/2015 Patient Education: Patient Medication Summary Completed 09/08/2015 Patient Education: .Cervicalgia Neck Pain Completed 09/08/2015 Care Plan: Referral Order SNOMED-CT : [id number] Ordered 09/08/2015 Visit Plan: Hypertension - uncontro [...] checked today. 07/09/2015 Appointment: Giuliana Manuel WPtel: [address] [place], [place] [phone] (15 min) Moderate 07/09/2015 Patient Education: Patient Medication Summary Completed 07/09/2015 Appointment: Giuliana Manuel WPtel: [address] [place], [place] [phone] (15 min) Moderate 07/07/2015 Appointment: Giuliana Manuel WPtel: [address] [place], [place] [phone] [place] Follow up 03/17/2015 Visit Plan: Hypertension - well con trolled - continue with current medications, continue with no added salt diet. Pt has been encouraged to exercise daily. The pt has been advised to call the office if there are any acute concerns about change in blood pressure readings at home. Palpitations resolved. 01/16/2015 Appointment: Giuliana Manuel WPtel: [phone] [facility] [place] Other 01/16/2015 Patient Education: Patient Medication Summary Completed 01/16/2015 Patient Education: Hypertension Completed 01/16/2015 Visit Plan: Hypertension - well zoe de [...] for break through pain symptoms. 01/03/2015 Appointment: Giuilana Manuel WPtel: [phone] [facility] Follow up 01/03/2015 Patient Education: Patient Medication Summary Completed 01/03/2015 Patient Education: Hypertension Completed 01/03/2015 Visit Plan: Hypertension - well con anyi [...] Hypertension Completed 09/16/2014 Appointment: Giuliana Manuel WPtel: [phone] [facility] Follow up 09/09/2014 Visit Plan: [...] symptoms worsen. 08/15/2014 Appointment: Giuliana Manuel WPtel: [address] [place] [address] Sick 08/15/2014 Patient Education: Patient Medication Summary Completed 08/15/2014 Patient Education: Hypertension Completed 08/15/2014 Care Plan: Referral Order SNOMED-CT : [id number] Ordered 08/15/2014 Appointment: Giuliana Manuel WPtel: [address] [place], [place] [phone] Follow up 06/18/2014 Visit Plan: [facility]. Rash - reaction to soy [...] at home. 06/12/2014 Appointment: Giuliana Manuel WPtel: [facility] [facility] 06/12/2014 Patient Education: Patient Medication Summary Completed 06/12/2014 Patient Education: Hypertension Completed 06/12/2014 Care Plan: Referral Order SNOMED-CT : [id number] Ordered 06/12/2014 Visit Plan: Hypertension - well [...] xrays. 03/20/2014 Appointment: Giuliana Manuel WPtel: [phone] Follow up 03/20/2014 Patient Education: Patient [...] Giuliana Manuel [facility]Ptel: [phone] Follow up 12/10/2013 Patient Education: Patient [...] start three times weekly. 09/17/2013 Appointment: Giuliana Manuell: [phone] Follow up 09/17/2013 Patient Education: Patient Medication [...] rub. 05/21/2013 Appointment: Giuliana Manuel WPtel: [phone] [facility] Follow up 05/21/2013 Patient Education: [...] vertigo. 01/17/2013 Appointment: Giuliana Manuel WPtel: [phone] [facility] Follow up 01/17/2013 Patient Education: [...] Giuliana Manuel WPtel: [phone] Follow up 09/20/2012 Patient Education: Patient [...] intolerance begin. 06/08/2012 Appointment: Giuliana Manuel WPtel: [facility] Follow up 06/08/2012 Patient Education: Patient [...] popcorn. 04/10/2012 Appointment: Giuliana Manuel WPtel: [phone] Other 04/10/2012 Patient Education: Patient Medication [...] Tuesday. 03/16/2012 Appointment: Giuliana Manuel WPtel: [phone] Other 03/16/2012 Patient Education: Patient Medication [...] this regimen. 02/03/2012 Appointment: Giuliana Manuel WPtel: [phone] Other 02/03/2012 Patient Education: Patient Medication [...] a week. 11/04/2011 Appointment: Giuliana Manuel WPtel: [phone] Follow up 11/04/2011 Patient Education: Patient [...] She will monitor her intake. [facility]ies - [facility] to see ifnallergy medication helps to prevent the headaches flu shot pneumonia shot 07/13/2011 Appointment: Giuliana Manuel WPtel: [phone] [facility] [place] Other 07/13/2011 Patient Education: Patient Medication Summary Completed 07/13/2011 Patient Education: .Amazing charts Diabe tic meal planning guide Completed 07/13/2011 Referral: Jared Lafleur [address] [facility] [place] Referral Appointment Requested Referral: Duarte Catalan Referral Appointment Requested Referral: Dr. Willams WPtel: [address] [place] [address] [place] Referral Initiated Referral: [facility] WPtel: [phone] [place] [address] [place] Referral Initiated Instructions Comment . Neck pain- start p hysical therapy [...] go to emergency room if symptoms worsen. hold the omega 3 fis h [...] symptoms are not improving. . Hypertension - we ll controlled - [...] pain - referr al to [facility] physical therapy. Rash - reaction to [...] blood pressure readings at home. Palpitations resolved. bland diet, low fat diet, start on [...] TWICE DAILY-CHECK POTASSIUM LEVEL-OKAY TO RESTART HCTZ KENALOG FLONASE BENADRYL . Allergies - chronic [...]
--- OUTSIDE RECORDS SUMMARY | 2020-01-21 14:16 | XMS REPORT | CCD ---
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 09/08/2015 Marital status Unknown M arried 07/13/[address]: 495234324 Nonsmoker 07/13/[address]: 463359355 Never drinks alcohol 07/13/2011 Allergies, Adverse Reactions, Alerts Substance Reaction Codes Entered Date Inactivated Date Status Soy Unknown 07/13/2011 No Inactive Date Active Cardizem RxNorm: 663307 05/19/2016 No Inactive Date Active Metoprolol Succinate anaphylaxis, rash, RxNorm: 6918 02/13/2016 No Inactive Date Active Past Medical History Illness Codes Condition Status Onset Date Resolved Date Sciatica Unknown Active 09/18/2018 Unknow n Lumbago with sciatic a, right side ICD-9: 724.3 ICD-10: M54.41 Active 09/18/2018 Unknown 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 Active 07/05/2017 Unknown Sacroiliitis, not el sewhere classified ICD-9: [...] ICD-9: 386.11 ICD-10: H81.13 Active 04/10/2012 Unknown Essential (primary) hypertension ICD-9: 401.1 ICD-10: I10 Active 07/21/2016 Unknown Gastro-esophageal re flux disease without esophagitis ICD-9: 530.81 ICD-10: K21.9 Active 07/21/2016 Unknown Other specified inte stinal infections ICD-9: [...] pain ICD-9: 789.00 Active 07/13/2011 Unknown 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 Active 07/13/2011 Unknown OBESITY ICD-9: 278.00 Active 07/13/2011 Unknow n Postprandial bloating ICD-9: 787.3 Active 07/13/2011 Unknown Seasonal allergies ICD- 9: 477.9 Active 07/13/2011 Unknown VAC STREP PNEUMONIAE -FLU ICD-9: V06.6 Active 07/03 Unknown Problems Condition Codes Effectiv e Dates Condition Status Sciatica Unknown 09/18/2018 Active Lumbago with sciatic a, right side ICD-9: 724.3 ICD-10: M54.41 09/18/2018 Active 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 07/05/2017 Active Sacroiliitis, not el sewhere classified ICD-9: [...] bilateral ICD-9: 386.11 ICD-10: H81.13 04/10/2012 Active Essential (primary) hypertension ICD-9: 401.1 ICD-10: I10 07/21/2016 Active Gastro-esophageal re flux disease without esophagitis ICD-9: 530.81 ICD-10: K21.9 07/21/2016 Active Other specified inte stinal infections ICD-9: [...] Abdominal pain ICD-9: 789.00 07/13/2011 Active 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 07/13/2011 Active OBESITY ICD-9: 278.00 07/13/2011 Active Postprandial bloating ICD-9: 787.3 07/13/2011 Active Seasonal allergies ICD- 9: 477.9 07/13/2011 Active VAC STREP PNEUMONIAE -FLU ICD-9: V06.6 07/13/2011 Active Medications Medication Codes Instruc tions Start Date Stop Date Sta tus Fill Instructions losartan 25 mg tablet RxNorm: 291472 1 Tablet(s) PO BID 11/01/2018 10/26/2019 Active losartan 25 mg tablet RxNorm: 700253 1 Tablet(s) PO BID 11/01/2018 10/31/2018 Inactive hydrochlorothiazide 12.5 mg tablet RxNorm: 041032 TAKE 1 TABLET BY MOUT H EVERY DAY 10/02/2018 03/30/2019 Ac tive - First Attempt Ref: [id number] famotidine 40 mg tablet RxNorm: 521491 TAKE 1 TABLET BY MOUTH EVERY MORNING 10/02/2018 03/30/2019 Ac tive - First Attempt Ref: [id number] doxazosin 1 mg tablet RxNorm: 443551 TAKE 1 TABLET BY MOUTH [facility] 10/02/2018 03/30/2019 Ac tive - First Attempt Ref: [id number] diclofenac 1 % topic al gel RxNorm: 486200 2 Application TOP QID 09/18/2018 11/16/2018 Active naproxen 500 mg tablet RxNorm: 422380 1 Tablet(s) PO BID 09/18/2018 09/24/2018 Inactive Kenalog 40 mg/mL karl pension for injection RxNorm: 2619966 1 Milliliter(s) Inj 08/31/2018 08/31/2018 In active clonidine HCl 0.1 mg tablet RxNorm: 487545 1/2 Tablet(s) PO BID 08/16/2018 08/10/2019 Active amoxicillin 500 mg t ablet RxNorm: 780598 1 Tablet(s) PO TID 08/14/2018 08/20/2018 Inactive losartan 25 mg tablet RxNorm: 833848 1 Tablet(s) PO BID 05/02/2018 05/01/2018 Inactive losartan 25 mg tablet RxNorm: 980802 1 Tablet(s) PO BID 05/02/2018 10/31/2018 Inactive losartan 25 mg tablet RxNorm: 118652 1 Tablet(s) PO BID 01/30/2018 05/01/2018 Inactive Vitamin D 2,000 unit capsule RxNorm: 1 Capsule(s) PO daily 11/18/2017 No Stop Date Active atenolol 25 mg tablet RxNorm: 449532 1 Tablet(s) PO daily 11/18/2017 11/12/2018 Active atenolol 25 mg tablet RxNorm: 940038 1 Tablet(s) PO BID managed by Dr Lafleur 11/18/2017 11/17/2017 In active clonidine HCl 0.1 mg tablet RxNorm: 792740 1/2 Tablet(s) PO BID 11/18/2017 08/15/2018 Inactive doxazosin 1 mg tablet RxNorm: 348893 1 Tablet(s) PO daily at midnight 11/18/2017 10/01/2018 In active midnight losartan 25 mg tablet RxNorm: 470388 1 Tablet(s) PO BID 11/18/2017 01/29/2018 Inactive hydrochlorothiazide 12.5 mg tablet RxNorm: 318115 1 Tablet(s) PO daily 11/18/2017 10/01/2018 In active famotidine 40 mg tablet RxNorm: 875600 1 Tablet(s) PO daily TAKE 1 TABLET BY MO UTH EVERY MORNING 11/18/2017 10/01/2018 Inactive - Ref: [id number] hydrochlorothiazide 12.5 mg tablet RxNorm: 155517 1 Tablet(s) PO daily 10/28/2017 11/17/2017 In active famotidine 40 mg tablet RxNorm: 603359 TAKE 1 TABLET BY MOUTH EVERY MORNING 10/04/2017 11/17/2017 In active - Ref: [id number] clonidine HCl 0.1 mg tablet RxNorm: 438988 1/2 Tablet(s) PO BID 07/05/2017 11/17/2017 Inactive doxazosin 1 mg tablet RxNorm: 547468 1 Tablet(s) PO daily at midnight 07/05/2017 11/17/2017 In active midnight doxazosin 1 mg tablet RxNorm: 722021 1 Tablet(s) PO BID 12/02/2016 2017 Inactive midnight prednisone 20 mg tablet RxNorm: 493870 3 Tablet(s) PO daily 11/22/2016 11/26/2016 Inactive Tessalon Perles 100 mg capsule RxNorm: 563164 1 -2 Capsule(s) PO TI D as needed cough 11/19/2016 No Stop Date Active Zithromax Z-Jeff 250 mg tablet RxNorm: 498652 1 Tablet(s) PO UD 11/19/2016 12/01/2016 Inactive z pack as directed Tamiflu 75 mg capsule RxNorm: 013121 1 Capsule(s) PO BID 11/05/2016 11/09/2016 Inactive Kenalog 40 mg/mL karl pension for injection RxNorm: 7011481 Milliliter(s) Inj 11/05/2016 11/05/2016 In active Tessalon Perles 100 mg capsule RxNorm: 168556 1 -2 Capsule(s) PO TI D as needed cough 11/04/2016 11/18/2016 Inactive famotidine 40 mg tablet RxNorm: 610478 1 Tablet(s) PO QAM 10/25/2016 10/03/2017 Inactive famotidine 40 mg tablet RxNorm: 334280 1 Tablet(s) PO QAM 08/02/2016 10/24/2016 Inactive Carafate 1 gram tablet RxNorm: 468132 1 Tablet(s) PO TID DISSOLVE THE PILL IN 10ML OF WATER 07/22/2016 10/19/2016 Inactive clonidine HCl 0.1 mg tablet RxNorm: 999504 1 Tablet(s) PO BID an d 1 tablet as needed 07/22/2016 12/01/2016 Inactive aspirin 81 mg tablet ,delayed release RxNorm: 930234 1 Tablet(s) PO QHS 05/19/2016 No Stop Date Active Cinnamon 1000 mg RxNorm: 1 PO daily 05/19/2016 No Stop Date Active losartan 25 mg tablet RxNorm: 635346 1 Tablet(s) PO BID 05/19/2016 11/17/2017 Inactive atenolol 25 mg tablet RxNorm: 977177 1.5 Tablet(s) PO BID 02/13/2016 07/21/2016 Inactive losartan 25 mg tablet RxNorm: 822335 2 Tablet(s) PO BID 01/13/2016 05/11/2016 Inactive Cardizem CD 240 mg c apsule,extended release RxNorm: 191414 1 Capsule(s) PO daily 01/13/2016 02/12/2016 In active losartan 100 mg tablet RxNorm: 841162 1/2 Tablet(s) PO BID 01/08/2016 01/12/2016 Inactive losartan 25 mg tablet RxNorm: 464099 2 Tablet(s) PO QPM 1 Tablet(s) PO QPM 12/18/2015 01/07/2016 In active atenolol 25 mg tablet RxNorm: 435407 1.5 Tablet(s) PO BID TAKE ONE TABLET BY MOUTH TWICE A DAY 12/18/2015 01/12/2016 Inactive atenolol 25 mg tablet RxNorm: 629801 Tablet(s) TAKE ONE TABLET BY MOUTH TWICE A DAY 11/14/2015 12/17/2015 Inactive losartan 25 mg tablet RxNorm: 140583 Tablet(s) 1 Tablet(s) PO QPM 11/14/2015 12/17/2015 Inactive spironolactone 25 mg tablet RxNorm: 351382 1 Tablet(s) PO daily 11/14/2015 12/14/2015 Inactive atenolol 25 mg tablet RxNorm: 017474 TAKE ONE TABLET BY MOUTH TWICE A DAY 08/07/2015 11/13/2015 In active atenolol 25 mg tablet RxNorm: 070329 1 Tablet(s) PO daily TAKE ONE TABLET BY MOUTH TWICE DAILY 08/06/2015 08/06/2015 Inactive Generic For:TENORMIN 25 MG TABLET 05/05/2015 10:00:22 AM atenolol 25 mg tablet RxNorm: 330403 1 Tablet(s) PO daily TAKE ONE TABLET BY MOUTH TWICE DAILY 08/06/2015 08/05/2015 Inactive Generic For:TENORMIN 25 MG TABLET 05/05/2015 10:00:22 AM betamethasone diprop ionate 0.05 % topical ointment RxNorm: 078812 1 TOP TID as needed rash 07/09/2015 05/18/2016 Inactive betamethasone diprop ionate 0.05 % topical ointment RxNorm: 275239 1 TOP TID as needed rash 07/09/2015 07/08/2015 Inactive spironolactone 25 mg tablet RxNorm: 759118 1 Tablet(s) PO daily 07/09/2015 07/08/2015 Inactive spironolactone 25 mg tablet RxNorm: 072837 1 Tablet(s) PO daily 07/09/2015 11/13/2015 Inactive losartan 25 mg tablet RxNorm: 096506 Tablet(s) 1 Tablet(s) PO QPM 05/27/2015 11/13/2015 Inactive atenolol 25 mg tablet RxNorm: 580662 TAKE ONE TABLET BY MOUTH TWICE DAILY 05/05/2015 08/05/2015 In active Generic For:TENORMIN 25 MG TABLET 05/05 10:00:22 AM hydrochlorothiazide 25 mg tablet RxNorm: 382183 1/2 Tablet(s) PO BID 02/17/2015 07/08/2015 Inactive Generic For:HYDRODIURIL 25 MG TABLET sulfamethoxazole 800 mg-trimethoprim 160 mg tablet RxNorm: 169769 1 Tablet(s) PO BID 01/16/2015 01/25/2015 Inactive losartan 25 mg tablet RxNorm: 125795 1 Tablet(s) PO QPM 12/09/2014 05/26/2015 Inactive Kenalog 40 mg/mL karl pension for injection RxNorm: 4973477 1 Milliliter(s) Inj 09/16/2014 09/16/2014 In active prednisone 20 mg tablet RxNorm: 690122 3 Tablet(s) PO daily 09/16/2014 09/18/2014 Inactive losartan 25 mg tablet RxNorm: 032569 1 Tablet(s) PO QPM 08/15/2014 12/08/2014 Inactive hydrochlorothiazide 25 mg tablet RxNorm: 021719 TAKE 1/2 TABLET BY MO UTH TWICE DAILY 08/13/2014 02/08/2015 Inactive Generic For:HYDRODIURIL 25 MG TABLET atenolol 25 mg tablet RxNorm: 915020 TAKE ONE TABLET BY MOUTH TWICE DAILY 05/07/2014 05/01/2015 In active Generic For:TENORMIN 25 MG TABLET ketorolac 60 mg/2 mL intramuscular solution RxNorm: 643391 2 Milliliter(s) IM 03/20/2014 03/20/2014 In active hydrochlorothiazide 25 mg tablet RxNorm: 667505 Tablet(s) PO TAKE 1/2 TABLET BY MOUTH TWICE DAILY 02/14/2014 08/12/2014 Inactive Generic For:HYDRODIURIL 25 MG TABLET Generic For:HYDRODIURIL 25 MG TABLET 02/14/2014 3:45:03 PM atorvastatin 10 mg t ablet RxNorm: 423784 1 Tablet(s) PO TIW 09/17/2013 03/19/2014 Inactive atorvastatin 10 mg t ablet RxNorm: 113524 tablet oral 09/17/2013 06/04/2015 Inactive hydrochlorothiazide 25 mg tablet RxNorm: 041593 Tablet(s) PO TAKE 1/2 TABLET BY MOUTH TWICE DAILY 08/06/2013 02/13/2014 Inactive Generic For:HYDRODIURIL 25 MG TABLET Generic For:HYDRODIURIL 25 MG TABLET 08/06/2013 1:52:35 PM amoxicillin 500 mg t ablet RxNorm: 246778 2 Tablet(s) PO 2 tabl ets PO 1 hour before dental procedure. 07/26/2013 07/25/2013 Inactive amoxicillin 500 mg t ablet RxNorm: 913259 2 Tablet(s) PO 2 tabl ets PO 1 hour before dental procedure. 07/26/2013 07/26/2013 Inactive methotrexate sodium 2.5 mg tablet RxNorm: 533882 tablet oral 07/13/2013 01/15/2015 Inactive atenolol 25 mg tablet RxNorm: 112972 Tablet(s) PO TAKE ONE TABLET BY MOUTH TW ICE DAILY 05/01/2013 05/06/2014 Inactive Generic For:TENORMIN 25 MG TABLET hydrochlorothiazide 25 mg tablet RxNorm: 880526 Tablet(s) PO TAKE 1/2 TABLET BY MOUTH TWICE DAILY 11/21/2012 08/05/2013 Inactive Generic For:HYDRODIURIL 25 MG TABLET atenolol 25 mg tablet RxNorm: 748946 Tablet(s) PO TAKE ONE TABLET BY MOUTH TW ICE DAILY 10/02/2012 04/30/2013 Inactive Generic For:TENORMIN 25 MG TABLET gemfibrozil 600 mg t ablet RxNorm: 714357 1 Tablet(s) PO BID 06/08/2012 10/08/2012 Inactive meclizine 25 mg tablet RxNorm: 235339 1 Tablet(s) PO Q4 PRN 06/08/2012 09/05/2012 Inactive prednisone 10 mg Tab RxNorm: 719794 2 Tablet(s) PO daily 03/16/2012 03/20/2012 Inactive atorvastatin 10 mg Tab RxNorm: 322650 1 Tablet(s) PO daily 12/21/2011 12/20/2011 Inactive atorvastatin 10 mg Tab RxNorm: 749456 1 Tablet(s) PO daily 12/21/2011 06/08/2012 Inactive methotrexate sodium 2.5 mg Tab RxNorm: 878576 Tablet(s) PO 11/16/2011 06/12/2012 Inactive 3 on hydrochlorothiazide 25 mg Tab RxNorm: 837119 1/2 Tablet(s) PO BID 11/01/2011 11/24/2012 Inactive hydrochlorothiazide 12.5 mg Cap RxNorm: Capsule(s) PO 11/01/2011 06/08/2012 Inactive TAKE ONE TABLET BY MOUTH TWICE DAILY;Gen sky For:MICROZIDE 12.5 MG CAPSULE hydrochlorothiazide 25 mg Tab RxNorm: 840881 1/2 Tablet(s) PO BID 11/01/2011 11/24/2012 Inactive hydrochlorothiazide 25 mg tablet RxNorm: 969484 1/2 Tablet(s) PO BID 11/01/2011 10/31/2011 Inactive hydrochlorothiazide 25 mg Tab RxNorm: 469077 1/2 Tablet(s) PO BID 11/01/2011 10/31/2011 Inactive atenolol 25 mg tablet RxNorm: 366264 Tablet(s) PO 10/04/2011 10/01/2012 Inactive TAKE ONE TABLET BY MOUTH TWICE DAILY;Generic For:TENORMIN 25 MG TABLET hydrochlorothiazide 12.5 mg Cap RxNorm: 083086 1 Capsule(s) PO BID 09/13/2011 10/31/2011 Inactive Influenza Virus Vacc ine 0.5 mL RxNorm: IM 07/13/2011 07/13/2011 Inactive Pneumovax 23 25 mcg/ 0.5 mL Injection RxNorm: 499230 Milliliter(s) Inj 07/13/2011 07/13/2011 In active Phenergan VC-Codeine 6.25 mg-5 mg-10 mg/5 mL syrup RxNorm: 101922 5 Milliliter(s) PO Q6 as needed No Start Date Active [place] 3 Cap RxNorm: 1 Capsule(s) PO BID No Start Date Active Cinnamon 1000 mg RxNorm: 2 PO daily No Start Date Active atenolol 25 mg Tab RxNorm: 332660 1 Tablet(s) PO BID No Start Date 10/03/2011 Inactive niacin ER 500 mg Cap RxNorm: 175775 1 Capsule(s) PO daily No Start Date 06/08/2012 Inactive gemfibrozil 600 mg t ablet RxNorm: 784840 1 Tablet(s) PO BID No Start Date 06/07/2012 Inactive Vitamin C 500 mg Tab RxNorm: 643552 1 Tablet(s) PO daily No Start Date 07/21/2016 Inactive Zithromax Z-Jeff 250 mg tablet RxNorm: 979256 1 Tablet(s) PO UD No Start Date 11/18/2016 Inactive z pack as directed doxazosin 1 mg tablet RxNorm: 986199 1 Tablet(s) PO BID No Start Date 12/01/2016 Inactive vitamin E (dl, aceta te) 400 unit Cap RxNorm: 926623 1 Capsule(s) PO daily No Start Date 07/21/2016 Inactive famotidine 40 mg tablet RxNorm: 772858 1 Tablet(s) PO QAM No Start Date 08/01/2016 Inactive hydrochlorothiazide 25 mg Tab RxNorm: 167326 1/2 Tablet(s) PO BID No Start Date 09/12/2011 Inactive Tessalon Perles 100 mg capsule RxNorm: 604751 1 -2 Capsule(s) PO TI D as needed cough No Start Date 11/03/2016 Inactive aspirin 81 mg Tab, D elayed Release RxNorm: 922290 1 Tablet(s) PO every other day No Start Date 05/18/2016 Inactive Cinnamon 1000 mg RxNorm: 2 PO daily No Start Date 05/18/2016 Inactive clonidine HCl 0.1 mg tablet RxNorm: 060955 1 Tablet(s) PO QHS an d 1 Tablet as needed No Start Date 07/21/2016 Inactive niacin 500 mg tablet RxNorm: 135848 1 Tablet(s) PO QHS No Start Date 01/01/2015 Inactive multivitamin Tab RxNorm: 1 Tablet(s) PO daily No Start Date 07/21/2016 Inactive methotrexate sodium 2.5 mg Tab RxNorm: 827732 Tablet(s) PO No Start Date 11/15/2011 Inactive 3 on tuesday3 on T-Bio RxNorm: 1 PO daily No Start Date 05/18/2016 Inactive Vitamin D 2,000 unit Cap RxNorm: 1 Capsule(s) PO daily No Start Date 07/21/2016 Inactive hydrochlorothiazide 12.5 mg tablet RxNorm: 476576 1 Tablet(s) PO daily No Start Date 10/27/2017 Inactive Medication Administered Medication Codes Instruc tions Start Date Status Kenalog 40 mg/mL suspension for injection RxNorm: 4846153 1Milliliter 08/31/2018 N o longer Active Kenalog 40 mg/mL suspension for injection RxNorm: 7635754 Milliliter 11/05/2016 No longer Active Kenalog 40 mg/mL suspension for injection RxNorm: 7443571 1Milliliter 09/16/2014 N o longer Active ketorolac 60 mg/2 mL intramuscular solution RxNorm: 344836 2Milliliter 03/20/2014 N o longer Active Pneumovax 23 25 mcg/0.5 mL Injection RxNorm: 712240 Milliliter 07/13/2011 No longer Active Influenza Virus Vaccine 0.5 mL RxNorm: 07/13/2011 No longer Active Immunizations Vaccine Codes Date Status Influenza CVX: 141 07/06 completed Influenza CVX: 141 07/05 completed Influenza CVX: 141 07/22 completed Influenza CVX: 141 09/17 completed Influenza CVX: 141 10/13 completed Influenza CVX: 141 07/13 completed Pneumococcal (Adult) CVX: 33 07/13/2011 completed Assessments Condition Codes Effectiv e Dates Sacroiliitis, not elsewhere classified ICD-10: M46.1 ICD-9: 720.2 09/18/2018 Postpolio syndrome ICD-10: G14 ICD-9: 138 09/18/2018 Lumbago with sciatica, right side IC [...] shoulder ICD-10: M25.5 11 ICD-9: 719.41 05/22/2018 Essential (primary) hypertension ICD -10: I10 ICD-9: 401.1 11/18/2017 Gastro-esophageal reflux disease without esophagitis ICD-10: K21.9 ICD-9: 530.81 11/18/2017 Other specified intestinal infections ICD-10: A08.8 ICD-9: [...] 02/03/2012 VITAMIN DEFICIENCY ICD-9: 269.2 11/04/2011 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 07/13/2011 Postprandial bloating ICD-9: 787.3 07/13/2011 Seasonal allergies ICD-9: 477.9 07/13/2011 VAC STREP PNEUMONIAE-FLU ICD-9: V06.6 07/13/2011 Reason For Visit Reason For Visit Effective Dates Notes low back pain 09/18/2018 nasal discharge 08/31/2018 [...] Ord64 K 3.8 mEq/L 12/06/2016 Comp Metabolic Jdp497 NA 134 mEq/L 12/03/2016 Comp Metabolic Rgu637 K Specimen 3+ Hemolyzed mEq/L 12/04/19 Comp Metabolic Uim795 CL 106 mEq/L 12/03/2016 Comp Metabolic Cxz444 CO2 20.0 mEq/L 12/03/2016 Comp Metabolic Lom985 AN ION GAP 16 12/03/2016 Comp Metabolic Stv657 GL UCOSE 93 mg/dL 12/03/2016 Comp Metabolic Spp072 Cr eat 0.8 mg/dL 12/03/2016 Comp Metabolic Zrr372 eG FR 73 ml/min/1.73m2 12/03 Comp Metabolic Mpc330 BUN 14 mg/dL 12/03/2016 Comp Metabolic Jka089 B/ C Ratio 17.1 Ratio 12/03/2016 Comp Metabolic Cos034 CA LCIUM 9.3 mg/dL 12/03/2016 Comp Metabolic Ogi446 AL K PHOS 63 U/L 12/03/2016 Comp Metabolic Tex959 T(SGOT) 69 U/L 12/03/2016 Comp Metabolic Zud807 AL T(SGPT) 33 U/L 12/03/2016 Comp Metabolic Ngt541 BI LI T 1.0 mg/dL 12/03/2016 Comp Metabolic Egv285 AL BUMIN 4.3 g/dL 12/03/2016 Comp Metabolic Rif675 TP RO 6.7 g/dL 12/03/2016 Comp Metabolic Nxe138 GL OB 2.4 g/dL 12/03/2016 Comp Metabolic Doz196 A/ G Ratio 1.7 Ratio 12/03/2016 Comp Metabolic Xlf503 Os mo 268 mOsmo 12/03/2016 Comp Metabolic Cys580 NA 138 mEq/L 12/18/2015 Comp Metabolic Rbj245 K 4.1 mEq/L 12/18/2015 Comp Metabolic Ecl307 CL 104 mEq/L 12/18/2015 Comp Metabolic Sdi008 CO2 22.0 mEq/L 12/18/2015 Comp Metabolic Uov691 AN ION GAP 16 12/18/2015 Comp Metabolic Vvq900 GL UCOSE 89 mg/dL 12/18/2015 Comp Metabolic Ddv140 Cr eat 0.6 mg/dL 12/18/2015 Comp Metabolic Uck345 eG FR 99 ml/min/1.73m2 12/17 Comp Metabolic Lch214 BUN 15 mg/dL 12/18/2015 Comp Metabolic Vkl537 B/ C Ratio 23.8 Ratio 12/18/2015 Comp Metabolic Yjp573 CA LCIUM 10.4 mg/dL 12/18/2015 Comp Metabolic Lup806 AL K PHOS 77 U/L 12/18/2015 Comp Metabolic Dcw249 T(SGOT) 19 U/L 12/18/2015 Comp Metabolic Tjy560 AL T(SGPT) 17 U/L 12/18/2015 Comp Metabolic Dhz543 BI LI T 0.8 mg/dL 12/18/2015 Comp Metabolic Gaw640 AL BUMIN 4.3 g/dL 12/18/2015 Comp Metabolic Vrc238 TP RO 6.7 g/dL 12/18/2015 Comp Metabolic Lvg446 GL OB 2.4 g/dL 12/18/2015 Comp Metabolic Yel652 A/ G Ratio 1.7 Ratio 12/18/2015 Comp Metabolic Ays889 Os mo 276 mOsmo 12/18/2015 Cbc With [...] 29.5 pg 12/18/2015 Cbc With Differential Ord2 Sanders% 9.4 % 12/18/2015 Cbc With Differential Ord2 [...] 2.57 K/ul 12/18/2015 Cbc With Differential Ord2 Sanders ABS# 0.8 K/ul 12/18/2015 Cbc With Differential Ord2 Eos ABS# 0.1 K/ul 12/18/2015 Cbc With Differential Ord2 Baso ABS# 0.0 K/ul 12/18/2015 Cbc With Differential Ord2 New Analyzer Notice Please note new ref ranges s tarting 10-15-2015 due to implemntation of new five part differential hematolgy analyzer. 12/18/2015 Total T3 Ord42 TT3 1.0 ng/ml 07/10/2015 Free T4 Pvn173 FREE T4 0.90 ng/dL 07/09/2015 Free T3 Cux618 Free T3 2.92 pg/ml 07/09/2015 Tsh Ord6 hTSH II 1.18 uIU/mL 07/09/2015 URINALYSIS NONAUTO W/O SCOPE 72196 Specific [place] 1.005 DateTime(Free Text in Aprima) URINALYSIS NONAUTO W/O SCOPE 40027 PH 6 DateTime(Free Text in Aprima) URINALYSIS NONAUTO W/O SCOPE 41316 GLUCOSE neg DateTime(Free Dano t in Aprima) URINALYSIS NONAUTO W/O SCOPE 76811 Protein neg DateTime(Free Dano t in Aprima) URINALYSIS NONAUTO W/O SCOPE 30876 Blood neg DateTime(Free Dano t in Aprima) URINALYSIS NONAUTO W/O SCOPE 58782 Bilirubin neg DateTime(Free Dano t in Aprima) URINALYSIS NONAUTO W/O SCOPE 26288 Ketones neg DateTime(Free Dano t in Aprima) URINALYSIS NONAUTO W/O SCOPE 16704 Urobilinogen neg DateTime(Free Text in Aprima) URINALYSIS NONAUTO W/O SCOPE 91609 Nitrite neg DateTime(Free Dano t in Aprima) URINALYSIS NONAUTO W/O SCOPE 74314 Leukocytes neg DateTime(Free Text in Aprima) Review of Systems System Result Effective Dates Constitutional No recent illness 09/18/2018 Constitutional No [...] nocturia 07/05/2017 Neurologic dizziness 12/2016 Neurologic headache 1012/2016 Dermatologic No rash 12/2016 Dermatologic No sores [...] otoscopic exam Left tympanic membrane: air-fluid le fnumi 11/05/2016 None Full Exam - ENT Ears/Nose/Throat [...] 1995 Ears/Nose/Throat oral cavity/pharynx/larynx Overall: no masses 09/20/2012 [...] rounded 03/16/2012 None Full Exam - General 1995 Abdomen [...] Formatting Model/CDA Sections, Assigned to/Kimberley Fagan CPT-4: [id number] 07/06/2018 ADMIN INFLUENZA VIRU S VAC CPT-4: G0008 07/05/2017 FLU VACC PRSV FREE I NC ANTIG CPT-4: 35426 07/05/2017 THER/PROPH/DIAG INJ SC/IM CPT-4: 44352 11/05/2016 TRIAMCINOLONE ACET I [place] NOS CPT-4: J3301 11/05/2016 TRIAMCINOLONE ACET I [place] NOS CPT-4: J3301 09/16/2014 DRAIN/INJECT JOINT/B URSA CPT-4: 81964 09/16/2014 KETOROLAC TROMETHAMI NE INJ CPT-4: J1885 03/20/2014 URINALYSIS NONAUTO W /O SCOPE CPT-4: 60552 12/10/2013 PRESCRIP TRANSMIT A ERX SY CPT-4: G8553 09/17/2013 PRESCRIP TRANSMIT A ERX SY CPT-4: G8553 06/08/2012 TRIAMCINOLONE ACET I [place] NOS CPT-4: J3301 03/16/2012 INJ TRIGGER POINT 1/ 2 MUSCL CPT-4: 63084 03/16/2012 PRESCRIP TRANSMIT A ERX SY CPT-4: G8553 03/16/2012 ADMIN INFLUENZA VIRU S VAC CPT-4: G0008 07/13/2011 FLULAVAL VACC, 3 YRS & >, IM CPT-4: Q2036 07/13/2011 ADMIN PNEUMOCOCCAL V ACCINE SNOMED CT: 11776181 CPT-4: G0009 07/13/2011 Pneumococcal Polysac charide Vaccine, 23-Valent, Ad CPT-4: 56994 07/13/2011 Vital Signs Date Vital 09/18/2018 Blood Pressure 1: 126/70 Code: 8480-6 BMI: 36.3 Code: 05556-9 Heart Rate 1: 58 bpm Height: 5'3" SpO2: 98% Weight: 205 lbs 08/31/2018 Blood Pressure 1: 148/76 Code: 8480-6 BMI: 37.0 Code: 59321-6 Heart Rate 1: 60 bpm Height: 5'3" SpO2: 98% Weight: 209 lbs 08/14/2018 Blood Pressure 1: 140/80 Code: 8480-6 BMI: 37.2 Code: 18808-2 Heart Rate 1: 76 bpm Height: 5'3" SpO2: 96% Weight: 210 lbs 05/22/2018 Blood Pressure 1: 150/62 Code: 8480-6 BMI: 36.7 Code: 77555-2 Heart Rate 1: 74 bpm Height: 5'3" SpO2: 98% Weight: 207 lbs 11/18/2017 Blood Pressure 1: 122/66 Code: 8480-6 BMI: 35.8 Code: 95214-7 Heart Rate 1: 59 bpm Height: 5'3" SpO2: 97% Weight: 202 lbs 08/03/2017 Blood Pressure 1: 122/60 Code: 8480-6 BMI: 36.0 Code: 40005-4 Heart Rate 1: 60 bpm Height: 5'3" SpO2: 97% Weight: 203 lbs 07/05/2017 Blood Pressure 1: 140/76 Code: 8480-6 BMI: 36.0 Code: 92852-9 Heart Rate 1: 58 bpm Height: 5'3" SpO2: 98% Weight: 203 lbs 12/02/2016 Blood Pressure 1: 122/70 Code: 8480-6 BMI: 34.4 Code: 47915-8 Heart Rate 1: 66 bpm Height: 5'3" SpO2: 99% Temperature: 36.4 (C ) / 97.5 (F) Weight: 194 lbs 11/22/2016 Blood Pressure 1: 102/60 Code: 8480-6 BMI: 34.2 Code: 94343-0 Heart Rate 1: 110 bpm Height: 5'3" SpO2: 98% Temperature: 36.7 (C ) / 98.0 (F) Weight: 193 lbs 11/05/2016 Blood Pressure 1: 140/62 Code: 8480-6 BMI: 36.1 Code: 62381-0 Heart Rate 1: 102 bpm Height: 5'3" SpO2: 97% Temperature: 37.1 (C ) / 98.7 (F) Weight: 204 lbs 07/22/2016 Blood Pressure 1: 158/80 Code: 8480-6 Blood Pressure 1: 160/76 Code: 8480-6 BMI: 36.8 Code: 45328-8 Heart Rate 1: 56 bpm Height: 5'3" SpO2: 98% Weight: 208 lbs 05/19/2016 Blood Pressure 1: 150/78 Code: 8480-6 Blood Pressure 1: 122/69 Code: 8480-6 BMI: 37.0 Code: 14375-0 Heart Rate 1: 61 bpm Height: 5'3" SpO2: 98% Weight: 209 lbs 02/13/2016 Blood Pressure 1: 140/76 Code: 8480-6 BMI: 36.8 Code: 16454-2 Heart Rate 1: 64 bpm Height: 5'3" SpO2: 97% Weight: 208 lbs 01/13/2016 Blood Pressure 1: 170/70 Code: 8480-6 BMI: 36.8 Code: 66438-2 Heart Rate 1: 65 bpm Height: 5'3" SpO2: 95% Weight: 208 lbs 01/02/2016 Blood Pressure 1: 150/88 Code: 8480-6 BMI: 36.8 Code: 47712-3 Heart Rate 1: 61 bpm Height: 5'3" SpO2: 98% Weight: 208 lbs 12/18/2015 Blood Pressure 1: 148/90 Code: 8480-6 BMI: 37.6 Code: 13196-2 Heart Rate 1: 64 bpm Height: 5'3" SpO2: 96% Weight: 212 lbs 09/08/2015 Blood Pressure 1: 130/88 Code: 8480-6 BMI: 37.0 Code: 74139-3 Heart Rate 1: 62 bpm Height: 5'3" SpO2: 97% Weight: 209 lbs 07/09/2015 Blood Pressure 1: 142/82 Code: 8480-6 BMI: 36.4 Code: 49563-7 Heart Rate 1: 66 bpm Height: 5'3" SpO2: 97% Weight: 205 lbs 5 oz 01/16/2015 Blood Pressure 1: 122/80 Code: 8480-6 BMI: 35.6 Code: 64060-6 Heart Rate 1: 67 bpm Height: 5'3" SpO2: 98% Weight: 201 lbs 01/03/2015 Blood Pressure 1: 122/70 Code: 8480-6 BMI: 35.6 Code: 99532-2 Heart Rate 1: 61 bpm Height: 5'3" Respiratory Rate: 16 bpm SpO2: 98% Weight: 201 lbs 09/16/2014 Blood Pressure 1: 132/78 Code: 8480-6 BMI: 34.9 Code: 47586-1 Heart Rate 1: 56 bpm Height: 5'3" Weight: 197 lbs 08/15/2014 Blood Pressure 1: 152/80 Code: 8480-6 Blood Pressure 2: 160/82 Code: 8480-6 BMI: 34.0 Code: 55295-4 Heart Rate 1: 75 bpm Height: 5'3" Weight: 192 lbs 06/12/2014 Blood Pressure 1: 136/82 Code: 8480-6 BMI: 34.9 Code: 39607-2 Heart Rate 1: 58 bpm Height: 5'3" SpO2: 96% Weight: 197 lbs 03/20/2014 Blood Pressure 1: 140/72 Code: 8480-6 BMI: 34.9 Code: 94048-3 Heart Rate 1: 60 bpm Height: 5'3" Weight: 197 lbs 12/10/2013 Blood Pressure 1: 132/78 Code: 8480-6 BMI: 35.1 Code: 72188-0 Heart Rate 1: 68 bpm Height: 5'3" Weight: 198 lbs 09/17/2013 Blood Pressure 1: 128/78 Code: 8480-6 BMI: 34.9 Code: 53622-8 Heart Rate 1: 68 bpm Height: 5'3" Weight: 197 lbs 05/21/2013 Blood Pressure 1: 128/82 Code: 8480-6 BMI: 35.6 Code: 08749-3 Heart Rate 1: 80 bpm Height: 5'3" Weight: 201 lbs 01/17/2013 Blood Pressure 1: 138/72 Code: 8480-6 BMI: 36.7 Code: 20932-9 Heart Rate 1: 60 bpm Height: 5'3" [...] 1: 140/78 Code: 8480-6 BMI: 40.0 Code: 92121-8 Heart Rate 1: 64 bpm Height: 5'3" Respiratory Rate: 16 bpm Weight: 226 lbs 11/04/2011 Blood Pressure 1: 136/76 Code: 8480-6 Heart Rate 1: 68 bpm Respiratory Rate: 16 bpm Weight: 226 lbs 07/13/2011 Blood Pressure 1: 142/80 Code: 8480-6 BMI: 40.0 Code: 57500-0 Heart Rate 1: 60 bpm Height: 5'4" Respiratory Rate: 16 bpm Weight: 233 lbs Functional Status No Functional Status data History of Present Illness Symptom Name Status Resu lt Effective Date Notes Location on both sides 09/18/2018 -worse on [...] ago 03/16/2012 None shoulder pain Quality ac [place] 03/16/2012 None shoulder pain Quality sh kate [...] Encounters Encounter Performer Loca tion Codes Date ([id number]) 93628 EST. 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 P ATIENT, LEVEL III Diagnosis: Nasal congestion[ICD10: R09.81] Diagnosis: Other allergic rhinitis[ICD10: J30.89] Юлия Manuel MD, [facility] CPT-4: 37492 08/31/2018 ([id number]) 35908 EST. P ATIENT, LEVEL III Diagnosis: Acute recurrent maxillary sinusitis[ICD10: J01.01] Юлия Manuel MD, [facility] CPT-4: 62838 08/14/2018 22724 EST. PATIENT, LEVEL III Diagnosis: Pain in right shoulder[ICD10: M25.511] Diagnosis: Pain in right arm[ICD10: M79.601] Willow Manuel MD, [facility] CPT-4: 78146 05/22/2018 ([id number]) 58946 EST. 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 PATIENT, LEVEL III Diagnosis: Other specified intestinal infections[ICD10: A08.8] Willow Manuel MD, [facility] CPT-4: 55062 08/03/2017 ([id number]) 91193 EST. 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 P ATIENT, LEVEL III Diagnosis: Essential (primary) hypertension[ICD10: I10] Юлия Manuel MD, [facility] CPT-4: 95379 12/02/2016 ([id number]) 62794 EST. P ATIENT, LEVEL III Diagnosis: Essential (primary) hypertension[ICD10: I10] Diagnosis: Allergic rhinitis due to pollen[ICD10: J30.1] Giuliana Manuel MD, [facility] CPT-4: 14565 11/22/2016 85037 EST. PATIENT, LEVEL III Diagnosis: Acute laryngopharyngitis[ICD10: J06.0] Diagnosis: Influenza due to unidentified influenza virus with other respiratory manifestations[ICD10: J11.1] Willow Manuel MD, [facility] CPT-4: 01577 11/05/2016 ([id number]) 50049 EST. P ATIENT, LEVEL III Diagnosis: Gastro-esophageal reflux disease without esophagitis[ICD10: K21.9] Diagnosis: Essential (primary) hypertension[ICD10: I10] Giuliana Manuel MD, [facility] CPT-4: 70698 07/22/2016 ([id number]) 76854 EST. P ATIENT, LEVEL IV Diagnosis: Essential (primary) hypertension[ICD10: I10] Diagnosis: Abdominal distension (gaseous)[ICD10: R14.0] Giuliana Manuel MD, [facility] CPT-4: 34664 05/19/2016 ([id number]) 63445 EST. P ATIENT, LEVEL III Diagnosis: Essential (primary) hypertension[ICD10: I10] Юлия Manuel MD, [facility] CPT-4: 61848 02/13/2016 ([id number]) 15445 EST. P ATIENT, LEVEL III Diagnosis: Essential (primary) hypertension[ICD10: I10] Юлия Manuel MD, [facility] CPT-4: 69031 01/13/2016 57988 EST. PATIENT, LEVEL IV Diagnosis: Essential (primary) hypertension[ICD10: I10] Diagnosis: Body mass index (BMI) 36.0-36.9, adult[ICD10: Z68.36] Willow Manuel MD, [facility] CPT-4: 84916 01/02/2016 ([id number]) 23826 EST. P ATIENT, LEVEL III Diagnosis: Essential (primary) hypertension[ICD10: I10] Юлия Manuel MD, [facility] CPT-4: 96464 12/18/2015 ([id number]) 29472 EST. P ATIENT, LEVEL IV Diagnosis: Essential (primary) hypertension[ICD10: I10] Diagnosis: Benign paroxysmal vertigo, bilateral[ICD10: H81.13] Diagnosis: Radiculopathy, cervical region[ICD10: M54.12] Giuliana Manuel MD, [facility] CPT-4: 18848 09/08/2015 ([id number]) 21746 EST. P ATIENT, LEVEL IV Diagnosis: Other specified nonscarring hair loss[ICD10: L65.8] Diagnosis: Myositis, unspecified[ICD10: M60.9] Diagnosis: Psoriasis, unspecified[ICD10: L40.9] Diagnosis: Essential (primary) hypertension[ICD10: I10] Giuliana Manuel MD, [facility] CPT-4: 11567 07/09/2015 ([id number]) 28571 EST. P ATIENT, LEVEL III Diagnosis: ESSENTIAL HYPERTENSION[ICD9: 401.9] Giuliana Manuel MD, [facility] CPT- 4: 05860 01/16/2015 ([id number]) 85000 EST. P ATIENT, LEVEL III Diagnosis: Shoulder pain[ICD9: 719.41] Diagnosis: ESSENTIAL HYPERTENSION[ICD9: 401.9] Diagnosis: PALPITATIONS[ICD9: 785.1] Giuliana Manuel MD, [facility] CPT-4: 73931 01/03/2015 ([id number]) 65375 EST. P ATIENT, LEVEL III Diagnosis: Sacroiliitis[ICD9: 720.2] Diagnosis: Back pain[ICD9: 724.5] Diagnosis: ESSENTIAL HYPERTENSION[ICD9: 401.9] Giuliana Manuel MD, [facility] CPT- 4: 88452 09/16/2014 ([id number]) 34614 EST. P ATIENT, LEVEL IV Diagnosis: ESSENTIAL HYPERTENSION[ICD9: 401.9] Diagnosis: Arrhythmia[ICD9: 427.9] Diagnosis: Nausea[ICD9: 787.02] Giuliana Manuel MD, [facility] CPT-4: 33698 08/15/2014 ([id number]) 11019 EST. P ATIENT, LEVEL IV Diagnosis: ESSENTIAL HYPERTENSION[ICD9: 401.9] Diagnosis: Back pain[ICD9: 724.5] Diagnosis: Allergic reaction[ICD9: 995.3] Giuliana Manuel MD, [facility] CPT-4: 43346 06/12/2014 ([id number]) 05807 EST. P ATIENT, LEVEL III Diagnosis: Thoracic back pain[ICD9: 724.1] Diagnosis: MYALGIA AND MYOSITIS[ICD9: 729.1] Giuliana Manuel MD, [facility] CPT-4: 38751 03/20/2014 ([id number]) 77528 EST. P ATIENT, LEVEL IV Diagnosis: HYPERLIPIDEMIA[ICD9: 272.4] Diagnosis: ESSENTIAL HYPERTENSION[SNOMED: 75641134] Diagnosis: ABDOM PAIN NOS SITE[ICD9: 789.00] Giuliana Manuel MD, [facility] CPT-4: 87711 12/10/2013 ([id number]) 21913 EST. P ATIENT, LEVEL IV Diagnosis: ESSENTIAL HYPERTENSION[SNOMED: 72169723] Diagnosis: HYPERLIPIDEMIA[ICD9: 272.4] Giuliana Mnauel MD, [facility] CPT-4: 42482 09/17/2013 ([id number]) 36919 EST. P ATIENT, LEVEL IV Diagnosis: ESSENTIAL HYPERTENSION[SNOMED: 41394465] Diagnosis: OBESITY[ICD9: 278.00] Diagnosis: Back pain[ICD9: 724.5] Giuliana Manuel MD, [facility] CPT-4: 34283 05/21/2013 ([id number]) 12260 EST. P ATIENT, LEVEL IV Diagnosis: ESSENTIAL HYPERTENSION[SNOMED: 68540850] Diagnosis: HYPERLIPIDEMIA[ICD9: 272.4] Diagnosis: Abdominal pain[ICD9: 789.00] Diagnosis: BENIGN PAROXYSMAL VERTIGO[ICD9: 386.11] Giuliana Manuel MD, [facility] CPT-4: 17864 01/17/2013 ([id number]) 31827 EST. P ATIENT, LEVEL IV Diagnosis: ESSENTIAL HYPERTENSION[SNOMED: 02814833] Diagnosis: BENIGN PAROXYSMAL VERTIGO[ICD9: 386.11] Diagnosis: Hair loss[ICD9: 704.00] Diagnosis: Vitamin d deficiency[ICD9: 268.9] Diagnosis: Bleeding from the nose[ICD9: 784.7] Giuliana Manuel MD, [facility] CPT- 4: 41543 09/20/2012 77989 EST. PATIENT, LEVEL IV Diagnosis: BPPV (benign paroxysmal positional vertigo)[ICD9: 386.11] Diagnosis: HYPERLIPIDEMIA[ICD9: 272.4] Diagnosis: ESSENTIAL HYPERTENSION[SNOMED: 47334449] Giuliana Manuel MD, [facility] CPT-4: 20165 06/08/2012 ([id number]) 12224 EST. P ATIENT, LEVEL IV Diagnosis: BPPV (benign paroxysmal positional vertigo)[ICD9: 386.11] Diagnosis: Diverticulitis[ICD9: 562.11] Diagnosis: Abdominal pain[ICD9: 789.00] Giuliana Manuel MD, [facility] CPT-4: 88998 04/10/2012 ([id number]) 58670 EST. P ATIENT, LEVEL III Diagnosis: Neck pain[ICD9: 723.1] Diagnosis: Acute upper back pain[ICD9: 724.1] Giuliana Manuel MD, [facility] CPT- 4: 53688 03/16/2012 ([id number]) 57006 EST. P ATIENT, LEVEL IV Diagnosis: HYPERLIPIDEMIA[ICD9: 272.4] Diagnosis: ESSENTIAL HYPERTENSION[SNOMED: 24915758] Diagnosis: Constipation - functional[ICD9: 564.09] Giuliana Manuel MD, [facility] CPT-4: 08583 02/03/2012 ([id number]) 62268 EST. P ATIENT, LEVEL IV Diagnosis: HYPERLIPIDEMIA[ICD9: 272.4] Diagnosis: VITAMIN DEFICIENCY[ICD9: 269.2] Diagnosis: ESSENTIAL HYPERTENSION[SNOMED: 12909046] Giuliana Manuel MD, [facility] CPT-4: 70674 11/04/2011 13135 EST. 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 08/31/2018 App[facility]ment[phone] [place] (15 min) Moderate 08/31/2018 Patient Education: [...] improve. 05/22/2018 Appointment: [phone] (15 min) Moderate 05/22/2018 Patient Education: Patient [...] improving. 11/18/2017 Appointment: Giul[facility] Manuel [facility]: [phone] [place] (15 min) Moderate 11/18/2017 Patient Education: Patient Medication Summary Completed 11/18/2017 Appointment: Giuliana Manuel WPtel: [phone] [facility] [place] (15 min) Moderate 11/07/2017 Visit [...] not improved. 08/03/2017 Appointment: Willow Garcia WPtel: [facility]5 [facility] (30 min) Complex 08/03/2017 Patient Education: Patient [...] D daily. 07/05/2017 Appointment: Giuliana Manuel WPtel: [facility]5 [facility] (15 min) Moderate 07/05/2017 Patient Education: Patient Medication Summary Completed 07/05/2017 Patient Education: Obesity Completed 07/05/2017 Appointment: Giuliana Manuel WPtel: [address] [place], [place] [phone] (15 min) Moderate 06/27/2017 Appointment: Giuliana Manuel WPtel: [facility]5 [facility] (15 min) Moderate 06/21/2017 Appointment: Юлия Rojas WPtel: [address] [place], [place] [phone] [place] (30 min) Complex 12/23/2016 Visit Plan: [...] RESTART HCTZ 12/02/2016 Appointment: Юлия Rojas WPtel: [facility]1 [phone] (30 min) Complex 12/02/2016 Patient Education: Patient [...] 7 days 11/22/2016 Appointment: Giuliana Manuel WPtel: [facility]7 [address] (15 min) Moderate 11/22/2016 Patient Education: Patient Medication Summary Completed 11/22/2016 Patient Education: Obesity Completed 11/22/2016 Visit Plan: Influenza - pt started on tamiflu - pt to start on anti-inflammatories, tylenol and monitor symptoms. Pt to call if not improving. Pt to alert any close contacts as to illness. 11/05/2016 Appointment: Willow Garcia WPtel: [facility]8 [phone] (30 min) Complex 11/05/2016 Patient Education: Patient [...] on carafate 07/22/2016 Appointment: Giuliana Manuel WPtel: [facility]5 [facility] (15 min) Moderate 07/22/2016 Patient Education: Patient Medication Summary Completed 07/22/2016 Patient Education: Obesity Completed 07/22/2016 Care Plan: Referral Order SNOMED-CT : [id number] Pending 07/22/2016 Visit Plan: Hypertension - well [...] Obesity Completed 05/19/2016 Appointment: Giuliana Manuel WPtel: [facility]5 [facility] [place] (15 min) Moderate 05/17/2016 Visit Plan: Hypertension - well con trolled - continue with current medications, continue with no added salt diet. Pt has been encouraged to exercise daily. The pt has been advised to call the office if there are any acute concerns about change in blood pressure readings at home. 02/13/2016 Appointment: Юлия Rojas WPtel: [facility]1 [phone] [place] (30 min) Complex 02/13/2016 Patient Education: [...] Obesity Completed 12/18/2015 Appointment: Giuliana Manuel WPtel: [facility]5 [facility]6[address] (15 min) Moderate 12/08/2015 Referral: Jared Lafleur [address] [facility] Referral Completed 10/17/2015 Visit Plan: Hypertension [...] stress test. 09/08/2015 Appointment: Giuliana Manuel WPtel: [facility]5 [facility]6[address] (15 min) Moderate 09/08/2015 Patient Education: Patient Medication Summary Completed 09/08/2015 Patient Education: .Cervicalgia Neck Pain Completed 09/08/2015 Care Plan: Referral Order SNOMED-CT : [id number] Ordered 09/08/2015 Visit Plan: Hypertension - uncontro [...] checked today. 07/09/2015 Appointment: Giuliana Manuel WPtel: [facility]5 [facility] (15 min) Moderate 07/09/2015 Patient Education: Patient Medication Summary Completed 07/09/2015 Appointment: Tonia Manuely WPtel: [address] [place], [place] [phone] (15 min) Moderate 07/07/2015 Appointment: MarTonia guzmany WPtel: [address] [place], [place] [phone] Follow up 03/17/2015 Visit Plan: Hypertension - well con trolled - continue with current medications, continue with no added salt diet. Pt has been encouraged to exercise daily. The pt has been advised to call the office if there are any acute concerns about change in blood pressure readings at home. Palpitations resolved. 01/16/2015 Appointment: Giuliana Manuel WPtel: [address] [place], [place] [phone] Other 01/16/2015 Patient Education: Patient Medication Summary [...] pain symptoms. 01/03/2015 Appointment: Giuliana Manuel WPtel: [address] [place], [place] [phone] Follow up 01/03/2015 Patient Education: Patient Medication [...] Hypertension Completed 09/16/2014 Appointment: Giuliana Manuel WPtel: [address] [place], [place] [phone] Follow up 09/09/2014 Visit Plan: Hypertension - [...] symptoms worsen. 08/15/2014 Appointment: Giuliana Manuel WPtel: [facility]5 [facility] Sick 08/15/2014 Patient Education: Patient Medication Summary Completed 08/15/2014 Patient Education: Hypertension Completed 08/15/2014 Care Plan: Referral Order SNOMED-CT : [id number] Ordered 08/15/2014 Appointment: Giuliana Manuel WPtel: [facility]5 [facility] Follow up 06/18/2014 Visit Plan: [facility] Rash - [...] at home. 06/12/2014 Appointment: Giuliana Manuel WPtel: [address] [place], [place] [phone] [facility] 06/12/2014 Patient Education: Patient Medication Summary Completed 06/12/2014 Patient Education: Hypertension Completed 06/12/2014 Care Plan: Referral Order SNOMED-CT : [id number] Ordered 06/12/2014 Visit Plan: Hypertension - well [...] spine xrays. 03/20/2014 Appointment: Giuliana Manuel WPtel: [address] [place], [place] [phone] Follow up 03/20/2014 Patient Education: Patient Medication [...] a UTI 12/10/2013 Appointment: Giuliana Manuel WPtel: [facility]6 [facility] Follow up 12/10/2013 Patient Education: Patient Medication [...] weekly. 09/17/2013 Appointment: Giuliana Manuel WPtel: [phone] [facility] Follow up 09/17/2013 Patient Education: [...] muscle rub. 05/21/2013 Appointment: Giuliana Manuel WPtel: [phone] Follow up 05/21/2013 Patient Education: Patient Medication [...] the vertigo. 01/17/2013 Appointment: Giuliana Manuel WPtel: [phone] [facility] Follow up 01/17/2013 Patient Education: [...] if needed. 09/20/2012 Appointment: Giuliana Manuel WPtel: [phone] [place] Follow up 09/20/2012 Patient Education: Patient [...] intolerance begin. 06/08/2012 Appointment: Giuliana Manuel WPtel: [address] [place], [place] [phone] Follow up 06/08/2012 Patient Education: Patient Medication [...] or popcorn. 04/10/2012 Appointment: Giuliana Manuel WPtel: [facility]4 [facility] Other 04/10/2012 Patient Education: Patient [...] by Tuesday. 03/16/2012 Appointment: Giuliana Manuel WPtel: [facility]3 [facility] Other 03/16/2012 Patient Education: Patient Medication [...] this regimen. 02/03/2012 Appointment: Giuliana Manuel WPtel: [address] [place] [id number] Other 02/03/2012 Patient Education: Patient Medication Summary [...] a week. 11/04/2011 Appointment: Giuliana Manuel WPtel: [address] [place], [place] [phone] Follow up 11/04/2011 Patient Education: Patient Medication [...] She will monitor her intake. Allergies - [facility] for the headaches to see ifnallergy medication helps to prevent the headaches flu shot pneumonia shot 07/13/2011 Appointment: Giuliana Manuel WPtel: [address] [place], [place] [phone] Other 07/13/2011 Patient Education: Patient Medication Summary Completed 07/13/2011 Patient Education: .Amazing charts Diabe tic meal planning guide Completed 07/13/2011 Referral: Jared Lafleur [facility]1 [facility] [place] Referral Appointment Requested Referral: Duarte Catalan Referral Appointment Requested Referral: Dr. Willams WPtel: [address] [place], [place] [phone] [place] Referral Initiated Referral: [facility] WPtel: [address] [place] [phone] [place] Referral Initiated Instructions Comment Add a [...] . Back pain - referr al to [facility] physical therapy. Rash - reaction to soy [...]
--- OUTSIDE RECORDS SUMMARY | 2020-01-21 14:18 | XMS REPORT | CCD ---
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/08/2015 Marital status Unknown M arried 07/13/[address]: 418261327 Nonsmoker 07/13/[address]: 787914675 Never drinks alcohol 07/13/2011 Allergies, Adverse Reactions, Alerts Substance Reaction Codes Entered Date Inactivated Date Status Soy Unknown 07/13/2011 No Inactive Date Active Cardizem RxNorm: 392493 05/19/2016 No Inactive Date Active Metoprolol Succinate [...] pain ICD-9: 789.00 Active 07/13/2011 Unknown 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 Active 07/13/2011 Unknown OBESITY ICD-9: [...] Abdominal pain ICD-9: 789.00 07/13/2011 Active 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 07/13/2011 Active OBESITY ICD-9: 278.00 07/13/2011 Active Postprandial bloating ICD-9: 787.3 07/13/2011 Active Seasonal allergies ICD- 9: 477.9 07/13/2011 Active VAC STREP PNEUMONIAE -FLU ICD-9: V06.6 07/13/2011 Active Medications Medication Codes Instruc tions Start Date Stop Date Sta tus Fill Instructions losartan 25 mg tablet RxNorm: 147825 1 Tablet(s) PO BID 11/01/2018 11/30/2018 Active hydrochlorothiazide 12.5 mg tablet RxNorm: 920004 TAKE 1 TABLET BY MOUT H EVERY DAY 10/02/2018 03/30/2019 Ac tive - First Attempt Ref: [id number] famotidine 40 mg tablet RxNorm: 858417 TAKE 1 TABLET BY MOUTH EVERY MORNING 10/02/2018 03/30/2019 Ac tive - First Attempt Ref: [id number] doxazosin 1 mg tablet RxNorm: 603637 TAKE 1 TABLET BY [facility] 10/02/2018 03/30/2019 Ac tive - First Attempt Ref: [id number] diclofenac 1 % topic al gel RxNorm: 792894 2 Application TOP QID 09/18/2018 11/16/2018 Active naproxen 500 mg tablet RxNorm: 082543 1 Tablet(s) PO BID 09/18/2018 09/24/2018 Inactive Kenalog 40 mg/mL karl pension for injection RxNorm: 6788343 1 Milliliter(s) Inj 08/31/2018 08/31/2018 In active clonidine HCl 0.1 mg tablet RxNorm: 166612 1/2 Tablet(s) PO BID 08/16/2018 08/10/2019 Active amoxicillin 500 mg t ablet RxNorm: 331718 1 Tablet(s) PO TID 08/14/2018 08/20/2018 Inactive losartan 25 mg tablet RxNorm: 947008 1 Tablet(s) PO BID 05/02/2018 05/01/2018 Inactive losartan 25 mg tablet RxNorm: 738718 1 Tablet(s) PO BID 05/02/2018 10/31/2018 Inactive losartan 25 mg tablet RxNorm: 367747 1 Tablet(s) PO BID 01/30/2018 05/01/2018 Inactive Vitamin D 2,000 unit capsule RxNorm: 1 Capsule(s) PO daily 11/18/2017 No Stop Date Active atenolol 25 mg tablet RxNorm: 256252 1 Tablet(s) PO daily 11/18/2017 11/12/2018 Active atenolol 25 mg tablet RxNorm: 748643 1 Tablet(s) PO BID managed by Dr Lafleur 11/18/2017 11/17/2017 In active clonidine HCl 0.1 mg tablet RxNorm: 746223 1/2 Tablet(s) PO BID 11/18/2017 08/15/2018 Inactive doxazosin 1 mg tablet RxNorm: 058076 1 Tablet(s) PO daily at midnight 11/18/2017 10/01/2018 In active midnight losartan 25 mg tablet RxNorm: 817777 1 Tablet(s) PO BID 11/18/2017 01/29/2018 Inactive hydrochlorothiazide 12.5 mg tablet RxNorm: 454621 1 Tablet(s) PO daily 11/18/2017 10/01/2018 In active famotidine 40 mg tablet RxNorm: 836898 1 Tablet(s) PO daily TAKE 1 TABLET BY MO UTH EVERY MORNING 11/18/2017 10/01/2018 Inactive - Ref: [id number] hydrochlorothiazide 12.5 mg tablet RxNorm: 984312 1 Tablet(s) PO daily 10/28/2017 11/17/2017 In active famotidine 40 mg tablet RxNorm: 324953 TAKE 1 TABLET BY MOUTH EVERY MORNING 10/04/2017 11/17/2017 In active - Ref: [id number] clonidine HCl 0.1 mg tablet RxNorm: 556214 1/2 Tablet(s) PO BID 07/05/2017 11/17/2017 Inactive doxazosin 1 mg tablet RxNorm: 811770 1 Tablet(s) PO daily at midnight 07/05/2017 11/17/2017 In active midnight doxazosin 1 mg tablet RxNorm: 630681 1 Tablet(s) PO BID 12/02/2016 2017 Inactive midnight prednisone 20 mg tablet RxNorm: 354694 3 Tablet(s) PO daily 11/22/2016 11/26/2016 Inactive Tessalon Perles 100 mg capsule RxNorm: 863621 1 -2 Capsule(s) PO TI D as needed cough 11/19/2016 No Stop Date Active Zithromax Z-Jeff 250 mg tablet RxNorm: 543587 1 Tablet(s) PO UD 11/19/2016 12/01/2016 Inactive z pack as directed Tamiflu 75 mg capsule RxNorm: 512387 1 Capsule(s) PO BID 11/05/2016 11/09/2016 Inactive Kenalog 40 mg/mL karl pension for injection RxNorm: 8317459 Milliliter(s) Inj 11/05/2016 11/05/2016 In active Sushmasalmarylou Perles 100 mg capsule RxNorm: 320304 1 -2 Capsule(s) PO TI D as needed cough 11/04/2016 11/18/2016 Inactive famotidine 40 mg tablet RxNorm: 765001 1 Tablet(s) PO QAM 10/25/2016 10/03/2017 Inactive famotidine 40 mg tablet RxNorm: 803805 1 Tablet(s) PO QAM 08/02/2016 10/24/2016 Inactive Carafate 1 gram tablet RxNorm: 394873 1 Tablet(s) PO TID DISSOLVE THE PILL IN 10ML OF WATER 07/22/2016 10/19/2016 Inactive clonidine HCl 0.1 mg tablet RxNorm: 476916 1 Tablet(s) PO BID an d 1 tablet as needed 07/22/2016 12/01/2016 Inactive aspirin 81 mg tablet ,delayed release RxNorm: 162788 1 Tablet(s) PO QHS 05/19/2016 No Stop Date Active Cinnamon 1000 mg RxNorm: 1 PO daily 05/19/2016 No Stop Date Active losartan 25 mg tablet RxNorm: 810009 1 Tablet(s) PO BID 05/19/2016 11/17/2017 Inactive atenolol 25 mg tablet RxNorm: 765304 1.5 Tablet(s) PO BID 02/13/2016 07/21/2016 Inactive losartan 25 mg tablet RxNorm: 383338 2 Tablet(s) PO BID 01/13/2016 05/11/2016 Inactive Cardizem CD 240 mg c apsule,extended release RxNorm: 207003 1 Capsule(s) PO daily 01/13/2016 02/12/2016 In active losartan 100 mg tablet RxNorm: 432081 1/2 Tablet(s) PO BID 01/08/2016 01/12/2016 Inactive losartan 25 mg tablet RxNorm: 892999 2 Tablet(s) PO QPM 1 Tablet(s) PO QPM 12/18/2015 01/07/2016 In active atenolol 25 mg tablet RxNorm: 449019 1.5 Tablet(s) PO BID TAKE ONE TABLET BY MOUTH TWICE A DAY 12/18/2015 01/12/2016 Inactive atenolol 25 mg tablet RxNorm: 011351 Tablet(s) TAKE ONE TABLET BY MOUTH TWICE A DAY 11/14/2015 12/17/2015 Inactive losartan 25 mg tablet RxNorm: 186978 Tablet(s) 1 Tablet(s) PO QPM 11/14/2015 12/17/2015 Inactive spironolactone 25 mg tablet RxNorm: 304777 1 Tablet(s) PO daily 11/14/2015 12/14/2015 Inactive atenolol 25 mg tablet RxNorm: 867149 TAKE ONE TABLET BY MOUTH TWICE A DAY 08/07/2015 11/13/2015 In active atenolol 25 mg tablet RxNorm: 136312 1 Tablet(s) PO daily TAKE ONE TABLET BY MOUTH TWICE DAILY 08/06/2015 08/06/2015 Inactive Generic For:TENORMIN 25 MG TABLET 05/05/2015 10:00:22 AM atenolol 25 mg tablet RxNorm: 507181 1 Tablet(s) PO daily TAKE ONE TABLET BY MOUTH TWICE DAILY 08/06/2015 08/05/2015 Inactive Generic For:TENORMIN 25 MG TABLET 05/05/2015 10:00:22 AM betamethasone diprop ionate 0.05 % topical ointment RxNorm: 380834 1 TOP TID as needed rash 07/09/2015 05/18/2016 Inactive betamethasone diprop ionate 0.05 % topical ointment RxNorm: 441276 1 TOP TID as needed rash 07/09/2015 07/08/2015 Inactive spironolactone 25 mg tablet RxNorm: 056042 1 Tablet(s) PO daily 07/09/2015 07/08/2015 Inactive spironolactone 25 mg tablet RxNorm: 570112 1 Tablet(s) PO daily 07/09/2015 11/13/2015 Inactive losartan 25 mg tablet RxNorm: 228668 Tablet(s) 1 Tablet(s) PO QPM 05/27/2015 11/13/2015 Inactive atenolol 25 mg tablet RxNorm: 338187 TAKE ONE TABLET BY MOUTH TWICE DAILY 05/05/2015 08/05/2015 In active Generic For:TENORMIN 25 MG TABLET 05/05 10:00:22 AM hydrochlorothiazide 25 mg tablet RxNorm: 241015 1/2 Tablet(s) PO BID 02/17/2015 07/08/2015 Inactive Generic For:HYDRODIURIL 25 MG TABLET sulfamethoxazole 800 mg-trimethoprim 160 mg tablet RxNorm: 233718 1 Tablet(s) PO BID 01/16/2015 01/25/2015 Inactive losartan 25 mg tablet RxNorm: 247417 1 Tablet(s) PO QPM 12/09/2014 05/26/2015 Inactive Kenalog 40 mg/mL karl pension for injection RxNorm: 5405576 1 Milliliter(s) Inj 09/16/2014 09/16/2014 In active prednisone 20 mg tablet RxNorm: 257966 3 Tablet(s) PO daily 09/16/2014 09/18/2014 Inactive losartan 25 mg tablet RxNorm: 538850 1 Tablet(s) PO QPM 08/15/2014 12/08/2014 Inactive hydrochlorothiazide 25 mg tablet RxNorm: 816004 TAKE 1/2 TABLET BY MO UTH TWICE DAILY 08/13/2014 02/08/2015 Inactive Generic For:HYDRODIURIL 25 MG TABLET atenolol 25 mg tablet RxNorm: 539870 TAKE ONE TABLET BY MOUTH TWICE DAILY 05/07/2014 05/01/2015 In active Generic For:TENORMIN 25 MG TABLET ketorolac 60 mg/2 mL intramuscular solution RxNorm: 348382 2 Milliliter(s) IM 03/20/2014 03/20/2014 In active hydrochlorothiazide 25 mg tablet RxNorm: 325133 Tablet(s) PO TAKE 1/2 TABLET BY MOUTH TWICE DAILY 02/14/2014 08/12/2014 Inactive Generic For:HYDRODIURIL 25 MG TABLET Generic For:HYDRODIURIL 25 MG TABLET 02/14/2014 3:45:03 PM atorvastatin 10 mg t ablet RxNorm: 629941 1 Tablet(s) PO TIW 09/17/2013 03/19/2014 Inactive atorvastatin 10 mg t ablet RxNorm: 195212 tablet oral 09/17/2013 06/04/2015 Inactive hydrochlorothiazide 25 mg tablet RxNorm: 424118 Tablet(s) PO TAKE 1/2 TABLET BY MOUTH TWICE DAILY 08/06/2013 02/13/2014 Inactive Generic For:HYDRODIURIL 25 MG TABLET Generic For:HYDRODIURIL 25 MG TABLET 08/06/2013 1:52:35 PM amoxicillin 500 mg t ablet RxNorm: 679197 2 Tablet(s) PO 2 tabl ets PO 1 hour before dental procedure. 07/26/2013 07/25/2013 Inactive amoxicillin 500 mg t ablet RxNorm: 772253 2 Tablet(s) PO 2 tabl ets PO 1 hour before dental procedure. 07/26/2013 07/26/2013 Inactive methotrexate sodium 2.5 mg tablet RxNorm: 509700 tablet oral 07/13/2013 01/15/2015 Inactive atenolol 25 mg tablet RxNorm: 615196 Tablet(s) PO TAKE ONE TABLET BY MOUTH TW ICE DAILY 05/01/2013 05/06/2014 Inactive Generic For:TENORMIN 25 MG TABLET hydrochlorothiazide 25 mg tablet RxNorm: 222656 Tablet(s) PO TAKE 1/2 TABLET BY MOUTH TWICE DAILY 11/21/2012 08/05/2013 Inactive Generic For:HYDRODIURIL 25 MG TABLET atenolol 25 mg tablet RxNorm: 726231 Tablet(s) PO TAKE ONE TABLET BY MOUTH TW ICE DAILY 10/02/2012 04/30/2013 Inactive Generic For:TENORMIN 25 MG TABLET gemfibrozil 600 mg t ablet RxNorm: 703603 1 Tablet(s) PO BID 06/08/2012 10/08/2012 Inactive meclizine 25 mg tablet RxNorm: 001631 1 Tablet(s) PO Q4 PRN 06/08/2012 09/05/2012 Inactive prednisone 10 mg Tab RxNorm: 552853 2 Tablet(s) PO daily 03/16/2012 03/20/2012 Inactive atorvastatin 10 mg Tab RxNorm: 129447 1 Tablet(s) PO daily 12/21/2011 12/20/2011 Inactive atorvastatin 10 mg Tab RxNorm: 170385 1 Tablet(s) PO daily 12/21/2011 06/08/2012 Inactive methotrexate sodium 2.5 mg Tab RxNorm: 092211 Tablet(s) PO 11/16/2011 06/12/2012 Inactive 3 on tuesday3 on hydrochlorothiazide 25 mg Tab RxNorm: 101099 1/2 Tablet(s) PO BID 11/01/2011 11/24/2012 Inactive hydrochlorothiazide 12.5 mg Cap RxNorm: Capsule(s) PO 11/01/2011 06/08/2012 Inactive TAKE ONE TABLET BY MOUTH TWICE DAILY;Gen sky For:MICROZIDE 12.5 MG CAPSULE hydrochlorothiazide 25 mg Tab RxNorm: 604989 1/2 Tablet(s) PO BID 11/01/2011 11/24/2012 Inactive hydrochlorothiazide 25 mg tablet RxNorm: 652057 1/2 Tablet(s) PO BID 11/01/2011 10/31/2011 Inactive hydrochlorothiazide 25 mg Tab RxNorm: 584625 1/2 Tablet(s) PO BID 11/01/2011 10/31/2011 Inactive atenolol 25 mg tablet RxNorm: 347470 Tablet(s) PO 10/04/2011 10/01/2012 Inactive TAKE ONE TABLET BY MOUTH TWICE DAILY;Generic For:TENORMIN 25 MG TABLET hydrochlorothiazide 12.5 mg Cap RxNorm: 003140 1 Capsule(s) PO BID 09/13/2011 10/31/2011 Inactive Influenza Virus Vacc ine 0.5 mL RxNorm: IM 07/13/2011 07/13/2011 Inactive Pneumovax 23 25 mcg/ 0.5 mL Injection RxNorm: 539890 Milliliter(s) Inj 07/13/2011 07/13/2011 In active Phenergan VC-Codeine 6.25 mg-5 mg-10 mg/5 mL syrup RxNorm: 668548 5 Milliliter(s) PO Q6 as needed No Start Date Active [place] 3 Cap RxNorm: 1 Capsule(s) PO BID No Start Date Active Cinnamon 1000 mg RxNorm: 2 PO daily No Start Date Active atenolol 25 mg Tab RxNorm: 981799 1 Tablet(s) PO BID No Start Date 10/03/2011 Inactive niacin ER 500 mg Cap RxNorm: 663269 1 Capsule(s) PO daily No Start Date 06/08/2012 Inactive gemfibrozil 600 mg t ablet RxNorm: 875060 1 Tablet(s) PO BID No Start Date 06/07/2012 Inactive Vitamin C 500 mg Tab RxNorm: 160387 1 Tablet(s) PO daily No Start Date 07/21/2016 Inactive Zithromax Z-Jeff 250 mg tablet RxNorm: 027493 1 Tablet(s) PO UD No Start Date 11/18/2016 Inactive z pack as directed doxazosin 1 mg tablet RxNorm: 960017 1 Tablet(s) PO BID No Start Date 12/01/2016 Inactive vitamin E (dl, aceta te) 400 unit Cap RxNorm: 331631 1 Capsule(s) PO daily No Start Date 07/21/2016 Inactive famotidine 40 mg tablet RxNorm: 568151 1 Tablet(s) PO QAM No Start Date 08/01/2016 Inactive hydrochlorothiazide 25 mg Tab RxNorm: 621090 1/2 Tablet(s) PO BID No Start Date 09/12/2011 Inactive Tessalon Perles 100 mg capsule RxNorm: 736542 1 -2 Capsule(s) PO TI D as needed cough No Start Date 11/03/2016 Inactive aspirin 81 mg Tab, D elayed Release RxNorm: 922869 1 Tablet(s) PO every other day No Start Date 05/18/2016 Inactive Cinnamon 1000 mg RxNorm: 2 PO daily No Start Date 05/18/2016 Inactive clonidine HCl 0.1 mg tablet RxNorm: 187751 1 Tablet(s) PO QHS an d 1 Tablet as needed No Start Date 07/21/2016 Inactive niacin 500 mg tablet RxNorm: 249960 1 Tablet(s) PO QHS No Start Date 01/01/2015 Inactive multivitamin Tab RxNorm: 1 Tablet(s) PO daily No Start Date 07/21/2016 Inactive methotrexate sodium 2.5 mg Tab RxNorm: 466490 Tablet(s) PO No Start Date 11/15/2011 Inactive 3 on tuesday3 on T-Bio RxNorm: 1 PO daily No Start Date 05/18/2016 Inactive Vitamin D 2,000 unit Cap RxNorm: 1 Capsule(s) PO daily No Start Date 07/21/2016 Inactive hydrochlorothiazide 12.5 mg tablet RxNorm: 580758 1 Tablet(s) PO daily No Start Date 10/27/2017 Inactive Medication Administered Medication Codes Instruc tions Start Date Status Kenalog 40 mg/mL suspension for injection RxNorm: 6990859 1Milliliter 08/31/2018 N o longer Active Kenalog 40 mg/mL suspension for injection RxNorm: 1340970 Milliliter 11/05/2016 No longer Active Kenalog 40 mg/mL suspension for injection RxNorm: 7585665 1Milliliter 09/16/2014 N o longer Active ketorolac 60 mg/2 mL intramuscular solution RxNorm: 678556 2Milliliter 03/20/2014 N o longer Active Pneumovax 23 25 mcg/0.5 mL Injection RxNorm: 024273 Milliliter 07/13/2011 No longer Active Influenza Virus [...] 02/03/2012 VITAMIN DEFICIENCY ICD-9: 269.2 11/04/2011 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 07/13/2011 Postprandial bloating ICD-9: 787.3 [...] Ord64 K 3.8 mEq/L 12/06/2016 Comp Metabolic Ohp460 NA 134 mEq/L 12/03/2016 Comp Metabolic Ktt956 K Specimen 3+ Hemolyzed mEq/L 12/04/19 Comp Metabolic Rcp181 CL 106 mEq/L 12/03/2016 Comp Metabolic Dxx177 CO2 20.0 mEq/L 12/03/2016 Comp Metabolic Bdd040 AN ION GAP 16 12/03/2016 Comp Metabolic Yuw590 GL UCOSE 93 mg/dL 12/03/2016 Comp Metabolic Ixj059 Cr eat 0.8 mg/dL 12/03/2016 Comp Metabolic Tia572 eG FR 73 ml/min/1.73m2 12/03 Comp Metabolic Blv316 BUN 14 mg/dL 12/03/2016 Comp Metabolic Bgr698 B/ C Ratio 17.1 Ratio 12/03/2016 Comp Metabolic Rdf256 CA LCIUM 9.3 mg/dL 12/03/2016 Comp Metabolic Ptn639 AL K PHOS 63 U/L 12/03/2016 Comp Metabolic Nrj447 T(SGOT) 69 U/L 12/03/2016 Comp Metabolic Knm929 AL T(SGPT) 33 U/L 12/03/2016 Comp Metabolic Fgp721 BI LI T 1.0 mg/dL 12/03/2016 Comp Metabolic Ecf904 AL BUMIN 4.3 g/dL 12/03/2016 Comp Metabolic Vrt183 TP RO 6.7 g/dL 12/03/2016 Comp Metabolic Uia195 GL OB 2.4 g/dL 12/03/2016 Comp Metabolic Ujt745 A/ G Ratio 1.7 Ratio 12/03/2016 Comp Metabolic Wnl093 Os mo 268 mOsmo 12/03/2016 Comp Metabolic Cck140 NA 138 mEq/L 12/18/2015 Comp Metabolic Nvh478 K 4.1 mEq/L 12/18/2015 Comp Metabolic Ozj729 CL 104 mEq/L 12/18/2015 Comp Metabolic Agf721 CO2 22.0 mEq/L 12/18/2015 Comp Metabolic Yqg394 AN ION GAP 16 12/18/2015 Comp Metabolic Rfu056 GL UCOSE 89 mg/dL 12/18/2015 Comp Metabolic Vhd467 Cr eat 0.6 mg/dL 12/18/2015 Comp Metabolic Sap934 eG FR 99 ml/min/1.73m2 12/17 Comp Metabolic Hfr873 BUN 15 mg/dL 12/18/2015 Comp Metabolic Nda045 B/ C Ratio 23.8 Ratio 12/18/2015 Comp Metabolic Xfc997 CA LCIUM 10.4 mg/dL 12/18/2015 Comp Metabolic Wyy221 AL K PHOS 77 U/L 12/18/2015 Comp Metabolic Wxz277 T(SGOT) 19 U/L 12/18/2015 Comp Metabolic Xho287 AL T(SGPT) 17 U/L 12/18/2015 Comp Metabolic Sek915 BI LI T 0.8 mg/dL 12/18/2015 Comp Metabolic Lwd788 AL BUMIN 4.3 g/dL 12/18/2015 Comp Metabolic Omi398 TP RO 6.7 g/dL 12/18/2015 Comp Metabolic Ucj720 GL OB 2.4 g/dL 12/18/2015 Comp Metabolic Ztl576 A/ G Ratio 1.7 Ratio 12/18/2015 Comp Metabolic Exb449 Os mo 276 mOsmo 12/18/2015 Cbc With Differential Ord2 WBC 8.41 K/ul 12/18/2015 Cbc With Differential Ord2 RBC 5.18 M/ul 12/18/2015 Cbc With Differential Ord2 HGB 15.3 g/dl 12/18/2015 Cbc With Differential Ord2 Neut% 58.3 % 12/18/2015 Cbc With Differential Ord2 HCT 46.3 % 12/18/2015 Cbc With Differential Ord2 MCV 89.4 fl 12/18/2015 Cbc With Differential Ord2 Lymph% 30.6 % 12/18/2015 Cbc With Differential Ord2 MCH 29.5 pg 12/18/2015 Cbc With Differential Ord2 [place]% 9.4 % 12/18/2015 Cbc With Differential Ord2 Eos% 1.2 % 12/18/2015 Cbc With Differential Ord2 MCHC 33.0 pg 12/18/2015 Cbc With Differential Ord2 Baso% 0.5 % 12/18/2015 Cbc With Differential Ord2 PLT 306 K/ul 12/18/2015 Cbc With Differential Ord2 RDW 14.9 % 12/18/2015 Cbc With Differential Ord2 Neut ABS# 4.91 K/ul 12/18/2015 Cbc With Differential Ord2 Lymph ABS# 2.57 K/ul 12/18/2015 Cbc With Differential Ord2 [place] ABS# 0.8 K/ul 12/18/2015 Cbc With Differential Ord2 Eos ABS# 0.1 K/ul 12/18/2015 Cbc With Differential Ord2 Baso ABS# 0.0 K/ul 12/18/2015 Cbc With Differential Ord2 New Analyzer Notice Please note new ref ranges s tarting 10-15-2015 due to implemntation of new five part differential hematolgy analyzer. 12/18/2015 Total T3 Ord42 TT3 1.0 ng/ml 07/10/2015 Free T4 Zeq502 FREE T4 0.90 ng/dL 07/09/2015 Free T3 Sbp504 Free T3 2.92 pg/ml 07/09/2015 Tsh Ord6 hTSH II 1.18 uIU/mL 07/09/2015 URINALYSIS NONAUTO W/O SCOPE 12554 Specific [place] 1.005 DateTime(Free Text in Aprima) URINALYSIS NONAUTO W/O SCOPE 35805 PH 6 DateTime(Free Text in Aprima) URINALYSIS NONAUTO W/O SCOPE 86974 GLUCOSE neg DateTime(Free Dano t in Aprima) URINALYSIS NONAUTO W/O SCOPE 81091 Protein neg DateTime(Free Dano t in Aprima) URINALYSIS NONAUTO W/O SCOPE 90386 Blood neg DateTime(Free Dano t in Aprima) URINALYSIS NONAUTO W/O SCOPE 02780 Bilirubin neg DateTime(Free Dano t in Aprima) URINALYSIS NONAUTO W/O SCOPE 14346 Ketones neg DateTime(Free Dano t in Aprima) URINALYSIS NONAUTO W/O SCOPE 07417 Urobilinogen neg DateTime(Free Text in Aprima) URINALYSIS NONAUTO W/O SCOPE 97137 Nitrite neg DateTime(Free Dano t in Aprima) URINALYSIS NONAUTO W/O SCOPE 48749 Leukocytes neg DateTime(Free Text in Aprima) Review [...] No constipation 02/13/2016 Neurologic dizziness Neurologic headache 1 12/2015 Constitutional No recent illness 01/13/2016 Constitutional [...] clear 01/17/2013 None Full Exam - General 1995 Ears/Nose/Throat [...] wide-based 02/03/2012 None Full Exam - General 1995 Constitutional general appearance Overall: well nourished 11/04/2011 [...] Formatting Model/CDA Sections, Assigned to/Kimberley Fagan CPT-4: 71630Iwgqgbj 07/06/2018 ADMIN INFLUENZA VIRU S VAC CPT-4: G0008 07/05/2017 FLU VACC PRSV FREE I NC ANTIG CPT-4: 53625 07/05/2017 THER/PROPH/DIAG INJ SC/IM CPT-4: 97127 11/05/2016 TRIAMCINOLONE ACET I [place] NOS CPT-4: J3301 11/05/2016 TRIAMCINOLONE ACET I [place] NOS CPT-4: J3301 09/16/2014 DRAIN/INJECT JOINT/B URSA CPT-4: 28524 09/16/2014 KETOROLAC TROMETHAMI NE INJ CPT-4: J1885 03/20/2014 URINALYSIS NONAUTO W /O SCOPE CPT-4: 51829 12/10/2013 PRESCRIP TRANSMIT A ERX SY CPT-4: G8553 09/17/2013 PRESCRIP TRANSMIT A ERX SY CPT-4: G8553 06/08/2012 TRIAMCINOLONE ACET I [place] NOS CPT-4: J3301 03/16/2012 INJ TRIGGER POINT 1/ 2 MUSCL CPT-4: 81721 03/16/2012 PRESCRIP TRANSMIT A ERX SY CPT-4: G8553 03/16/2012 ADMIN INFLUENZA VIRU S VAC CPT-4: G0008 07/13/2011 FLULAVAL VACC, 3 YRS & >, IM CPT-4: Q2036 07/13/2011 ADMIN PNEUMOCOCCAL V ACCINE SNOMED CT: 06983477 CPT-4: G0009 07/13/2011 Pneumococcal Polysac charide Vaccine, 23-Valent, Ad CPT-4: 64499 07/13/2011 Vital Signs Date Vital 09/18/2018 Blood Pressure 1: 126/70 Code: 8480-6 BMI: 36.3 Code: 29801-3 Heart Rate 1: 58 bpm Height: 5'3" SpO2: 98% Weight: 205 lbs 08/31/2018 Blood Pressure 1: 148/76 Code: 8480-6 BMI: 37.0 Code: 54838-0 Heart Rate 1: 60 bpm Height: 5'3" SpO2: 98% Weight: 209 lbs 08/14/2018 Blood Pressure 1: 140/80 Code: 8480-6 BMI: 37.2 Code: 85747-7 Heart Rate 1: 76 bpm Height: 5'3" SpO2: 96% Weight: 210 lbs 05/22/2018 Blood Pressure 1: 150/62 Code: 8480-6 BMI: 36.7 Code: 12697-4 Heart Rate 1: 74 bpm Height: 5'3" SpO2: 98% Weight: 207 lbs 11/18/2017 Blood Pressure 1: 122/66 Code: 8480-6 BMI: 35.8 Code: 90859-8 Heart Rate 1: 59 bpm Height: 5'3" SpO2: 97% Weight: 202 lbs 08/03/2017 Blood Pressure 1: 122/60 Code: 8480-6 BMI: 36.0 Code: 27478-7 Heart Rate 1: 60 bpm Height: 5'3" SpO2: 97% Weight: 203 lbs 07/05/2017 Blood Pressure 1: 140/76 Code: 8480-6 BMI: 36.0 Code: 62462-1 Heart Rate 1: 58 bpm Height: 5'3" SpO2: 98% Weight: 203 lbs 12/02/2016 Blood Pressure 1: 122/70 Code: 8480-6 BMI: 34.4 Code: 63017-7 Heart Rate 1: 66 bpm Height: 5'3" SpO2: 99% Temperature: 36.4 (C ) / 97.5 (F) Weight: 194 lbs 11/22/2016 Blood Pressure 1: 102/60 Code: 8480-6 BMI: 34.2 Code: 05390-7 Heart Rate 1: 110 bpm Height: 5'3" SpO2: 98% Temperature: 36.7 (C ) / 98.0 (F) Weight: 193 lbs 11/05/2016 Blood Pressure 1: 140/62 Code: 8480-6 BMI: 36.1 Code: 98779-5 Heart Rate 1: 102 bpm Height: 5'3" SpO2: 97% Temperature: 37.1 (C ) / 98.7 (F) Weight: 204 lbs 07/22/2016 Blood Pressure 1: 158/80 Code: 8480-6 Blood Pressure 1: 160/76 Code: 8480-6 BMI: 36.8 Code: 60762-3 Heart Rate 1: 56 bpm Height: 5'3" SpO2: 98% Weight: 208 lbs 05/19/2016 Blood Pressure 1: 122/69 Code: 8480-6 Blood Pressure 1: 150/78 Code: 8480-6 BMI: 37.0 Code: 35638-3 Heart Rate 1: 61 bpm Height: 5'3" SpO2: 98% Weight: 209 lbs 02/13/2016 Blood Pressure 1: 140/76 Code: 8480-6 BMI: 36.8 Code: 83768-4 Heart Rate 1: 64 bpm Height: 5'3" SpO2: 97% Weight: 208 lbs 01/13/2016 Blood Pressure 1: 170/70 Code: 8480-6 BMI: 36.8 Code: 51718-0 Heart Rate 1: 65 bpm Height: 5'3" SpO2: 95% Weight: 208 lbs 01/02/2016 Blood Pressure 1: 150/88 Code: 8480-6 BMI: 36.8 Code: 08658-0 Heart Rate 1: 61 bpm Height: 5'3" SpO2: 98% Weight: 208 lbs 12/18/2015 Blood Pressure 1: 148/90 Code: 8480-6 BMI: 37.6 Code: 22410-6 Heart Rate 1: 64 bpm Height: 5'3" SpO2: 96% Weight: 212 lbs 09/08/2015 Blood Pressure 1: 130/88 Code: 8480-6 BMI: 37.0 Code: 15874-9 Heart Rate 1: 62 bpm Height: 5'3" SpO2: 97% Weight: 209 lbs 07/09/2015 Blood Pressure 1: 142/82 Code: 8480-6 BMI: 36.4 Code: 11613-3 Heart Rate 1: 66 bpm Height: 5'3" SpO2: 97% Weight: 205 lbs 5 oz 01/16/2015 Blood Pressure 1: 122/80 Code: 8480-6 BMI: 35.6 Code: 98329-3 Heart Rate 1: 67 bpm Height: 5'3" SpO2: 98% Weight: 201 lbs 01/03/2015 Blood Pressure 1: 122/70 Code: 8480-6 BMI: 35.6 Code: 60094-6 Heart Rate 1: 61 bpm Height: 5'3" Respiratory Rate: 16 bpm SpO2: 98% Weight: 201 lbs 09/16/2014 Blood Pressure 1: 132/78 Code: 8480-6 BMI: 34.9 Code: 84515-5 Heart Rate 1: 56 bpm Height: 5'3" Weight: 197 lbs 08/15/2014 Blood Pressure 1: 152/80 Code: 8480-6 Blood Pressure 2: 160/82 Code: 8480-6 BMI: 34.0 Code: 23079-3 Heart Rate 1: 75 bpm Height: 5'3" Weight: 192 lbs 06/12/2014 Blood Pressure 1: 136/82 Code: 8480-6 BMI: 34.9 Code: 21356-0 Heart Rate 1: 58 bpm Height: 5'3" SpO2: 96% Weight: 197 lbs 03/20/2014 Blood Pressure 1: 140/72 Code: 8480-6 BMI: 34.9 Code: 13644-6 Heart Rate 1: 60 bpm Height: 5'3" Weight: 197 lbs 12/10/2013 Blood Pressure 1: 132/78 Code: 8480-6 BMI: 35.1 Code: 32866-6 Heart Rate 1: 68 bpm Height: 5'3" Weight: 198 lbs 09/17/2013 Blood Pressure 1: 128/78 Code: 8480-6 BMI: 34.9 Code: 45396-8 Heart Rate 1: 68 bpm Height: 5'3" Weight: 197 lbs 05/21/2013 Blood Pressure 1: 128/82 Code: 8480-6 BMI: 35.6 Code: 95452-3 Heart Rate 1: 80 bpm Height: 5'3" Weight: 201 lbs 01/17/2013 Blood Pressure 1: 138/72 Code: 8480-6 BMI: 36.7 Code: 23364-8 Heart Rate 1: 60 bpm Height: 5'3" [...] 1: 140/78 Code: 8480-6 BMI: 40.0 Code: 99093-2 Heart Rate 1: 64 bpm Height: 5'3" Respiratory Rate: 16 bpm Weight: 226 lbs 11/04/2011 Blood Pressure 1: 136/76 Code: 8480-6 Heart Rate 1: 68 bpm Respiratory Rate: 16 bpm Weight: 226 lbs 07/13/2011 Blood Pressure 1: 142/80 Code: 8480-6 BMI: 40.0 Code: 33540-7 Heart Rate 1: 60 bpm Height: 5'4" [...] intermi ttent 09/08/2015 None arm pain Quality [facility] [place] 09/08/2015 None arm pain Quality [...] ago 03/16/2012 None shoulder pain Quality ac crow 03/16/2012 None shoulder pain Quality sh kate [...] Encounters Encounter Performer Loca tion Codes Date ([id number]) 65804 EST. 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 P ATIENT, LEVEL III Diagnosis: Nasal congestion[ICD10: R09.81] Diagnosis: Other allergic rhinitis[ICD10: J30.89] Юлия Manuel MD, [facility] CPT-4: 03741 08/31/2018 ([id number]) 25627 EST. P ATIENT, LEVEL III Diagnosis: Acute recurrent maxillary sinusitis[ICD10: J01.01] Юлия Manuel MD, [facility] CPT-4: 06045 08/14/2018 24688 EST. PATIENT, LEVEL III Diagnosis: Pain in right shoulder[ICD10: M25.511] Diagnosis: Pain in right arm[ICD10: M79.601] Willow Manuel MD, [facility] CPT-4: 19391 05/22/2018 ([id number]) 07053 EST. 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 PATIENT, LEVEL III Diagnosis: Other specified intestinal infections[ICD10: A08.8] Willow Manuel MD, [facility] CPT-4: 32214 08/03/2017 ([id number]) 16916 EST. 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 P ATIENT, LEVEL III Diagnosis: Essential (primary) hypertension[ICD10: I10] Юлия Manuel MD, [facility] CPT-4: 20723 12/02/2016 ([id number]) 28817 EST. P ATIENT, LEVEL III Diagnosis: Essential (primary) hypertension[ICD10: I10] Diagnosis: Allergic rhinitis due to pollen[ICD10: J30.1] Giuliana Manuel MD, C CPT-4: 74216 11/22/2016 04478 EST. PATIENT, LEVEL III Diagnosis: Acute laryngopharyngitis[ICD10: J06.0] Diagnosis: Influenza due to unidentified influenza virus with other respiratory manifestations[ICD10: J11.1] Willow Manuel MD, [facility] CPT-4: 88534 11/05/2016 ([id number]) 62727 EST. P ATIENT, LEVEL III Diagnosis: Gastro-esophageal reflux disease without esophagitis[ICD10: K21.9] Diagnosis: Essential (primary) hypertension[ICD10: I10] Giuliana Manuel MD, [facility] CPT-4: 08566 07/22/2016 ([id number]) 15995 EST. P ATIENT, LEVEL IV Diagnosis: Essential (primary) hypertension[ICD10: I10] Diagnosis: Abdominal distension (gaseous)[ICD10: R14.0] Giuliana Manuel MD, [facility] CPT-4: 77136 05/19/2016 ([id number]) 07723 EST. P ATIENT, LEVEL III Diagnosis: Essential (primary) hypertension[ICD10: I10] Юлия Manuel MD, [facility] CPT-4: 57916 02/13/2016 ([id number]) 72614 EST. P ATIENT, LEVEL III Diagnosis: Essential (primary) hypertension[ICD10: I10] Юлия Manuel MD, [facility] CPT-4: 60694 01/13/2016 19163 EST. PATIENT, LEVEL IV Diagnosis: Essential (primary) hypertension[ICD10: I10] Diagnosis: Body mass index (BMI) 36.0-36.9, adult[ICD10: Z68.36] Willow Manuel MD, [facility] CPT-4: 84757 01/02/2016 ([id number]) 80694 EST. P ATIENT, LEVEL III Diagnosis: Essential (primary) hypertension[ICD10: I10] Юлия Manuel MD, [facility] CPT-4: 34411 12/18/2015 ([id number]) 78357 EST. P ATIENT, LEVEL IV Diagnosis: Essential (primary) hypertension[ICD10: I10] Diagnosis: Benign paroxysmal vertigo, bilateral[ICD10: H81.13] Diagnosis: Radiculopathy, cervical region[ICD10: M54.12] Giuliana Manuel MD, [facility] CPT-4: 42570 09/08/2015 ([id number]) 93113 EST. P ATIENT, LEVEL IV Diagnosis: Other specified nonscarring hair loss[ICD10: L65.8] Diagnosis: Myositis, unspecified[ICD10: M60.9] Diagnosis: Psoriasis, unspecified[ICD10: L40.9] Diagnosis: Essential (primary) hypertension[ICD10: I10] Giuliana Manuel MD, [facility] CPT-4: 96895 07/09/2015 ([id number]) 36859 EST. P ATIENT, LEVEL III Diagnosis: ESSENTIAL HYPERTENSION[ICD9: 401.9] Giuliana Manuel MD, [facility] CPT- 4: 37256 01/16/2015 ([id number]) 09283 EST. P ATIENT, LEVEL III Diagnosis: Shoulder pain[ICD9: 719.41] Diagnosis: ESSENTIAL HYPERTENSION[ICD9: 401.9] Diagnosis: PALPITATIONS[ICD9: 785.1] Giuliana Manuel MD, [facility] CPT-4: 56339 01/03/2015 ([id number]) 77277 EST. P ATIENT, LEVEL III Diagnosis: Sacroiliitis[ICD9: 720.2] Diagnosis: Back pain[ICD9: 724.5] Diagnosis: ESSENTIAL HYPERTENSION[ICD9: 401.9] Giuliana Manuel MD, [facility] CPT- 4: 17969 09/16/2014 ([id number]) 09773 EST. P ATIENT, LEVEL IV Diagnosis: ESSENTIAL HYPERTENSION[ICD9: 401.9] Diagnosis: Arrhythmia[ICD9: 427.9] Diagnosis: Nausea[ICD9: 787.02] Giuliana Manuel MD, [facility] CPT-4: 16530 08/15/2014 ([id number]) 79873 EST. P ATIENT, LEVEL IV Diagnosis: ESSENTIAL HYPERTENSION[ICD9: 401.9] Diagnosis: Back pain[ICD9: 724.5] Diagnosis: Allergic reaction[ICD9: 995.3] Giuliana Manuel MD [facility] CPT-4: 42670 06/12/2014 ([id number]) 38083 EST. P ATIENT, LEVEL III Diagnosis: Thoracic back pain[ICD9: 724.1] Diagnosis: MYALGIA AND MYOSITIS[ICD9: 729.1] Giuliana Manuel MD [facility] CPT-4: 29531 03/20/2014 ([id number]) 83426 EST. P ATIENT, LEVEL IV Diagnosis: HYPERLIPIDEMIA[ICD9: 272.4] Diagnosis: ESSENTIAL HYPERTENSION[SNOMED: 38985282] Diagnosis: ABDOM PAIN NOS SITE[ICD9: 789.00] Giuliana Manuel MD [facility] CPT-4: 29675 12/10/2013 ([id number]) 11251 EST. P ATIENT, LEVEL IV Diagnosis: ESSENTIAL HYPERTENSION[SNOMED: 25398756] Diagnosis: HYPERLIPIDEMIA[ICD9: 272.4] Giuliaan Manuel MD [facility] CPT-4: 37995 09/17/2013 ([id number]) 46597 EST. P ATIENT, LEVEL IV Diagnosis: ESSENTIAL HYPERTENSION[SNOMED: 81653049] Diagnosis: OBESITY[ICD9: 278.00] Diagnosis: Back pain[ICD9: 724.5] Giuliana Manuel MD [facility] CPT-4: 40995 05/21/2013 ([id number]) 34382 EST. P ATIENT, LEVEL IV Diagnosis: ESSENTIAL HYPERTENSION[SNOMED: 72363782] Diagnosis: HYPERLIPIDEMIA[ICD9: 272.4] Diagnosis: Abdominal pain[ICD9: 789.00] Diagnosis: BENIGN PAROXYSMAL VERTIGO[ICD9: 386.11] Giuliana Manuel MD [facility] CPT-4: 83275 01/17/2013 ([id number]) 76356 EST. P ATIENT, LEVEL IV Diagnosis: ESSENTIAL HYPERTENSION[SNOMED: 84685468] Diagnosis: BENIGN PAROXYSMAL VERTIGO[ICD9: 386.11] Diagnosis: Hair loss[ICD9: 704.00] Diagnosis: Vitamin d deficiency[ICD9: 268.9] Diagnosis: Bleeding from the nose[ICD9: 784.7] Giuliana Manuel MD, [facility] CPT- 4: 27055 09/20/2012 21459 EST. PATIENT, LEVEL IV Diagnosis: BPPV (benign paroxysmal positional vertigo)[ICD9: 386.11] Diagnosis: HYPERLIPIDEMIA[ICD9: 272.4] Diagnosis: ESSENTIAL HYPERTENSION[SNOMED: 92563397] Giuliana Manuel MD, C CPT-4: 83150 06/08/2012 ([id number]) 84588 EST. P ATIENT, LEVEL IV Diagnosis: BPPV (benign paroxysmal positional vertigo)[ICD9: 386.11] Diagnosis: Diverticulitis[ICD9: 562.11] Diagnosis: Abdominal pain[ICD9: 789.00] Giuliana Manuel MD, [facility] CPT-4: 86697 04/10/2012 ([id number]) 25635 EST. P ATIENT, LEVEL III Diagnosis: Neck pain[ICD9: 723.1] Diagnosis: Acute upper back pain[ICD9: 724.1] Giuliana Manuel MD, [facility] CPT- 4: 94381 03/16/2012 ([id number]) 23161 EST. P ATIENT, LEVEL IV Diagnosis: HYPERLIPIDEMIA[ICD9: 272.4] Diagnosis: ESSENTIAL HYPERTENSION[SNOMED: 51888494] Diagnosis: Constipation - functional[ICD9: 564.09] Giuliana Manuel MD, [facility] CPT-4: 49531 02/03/2012 ([id number]) 35628 EST. P ATIENT, LEVEL IV Diagnosis: HYPERLIPIDEMIA[ICD9: 272.4] Diagnosis: VITAMIN DEFICIENCY[ICD9: 269.2] Diagnosis: ESSENTIAL HYPERTENSION[SNOMED: 06797871] Giuliana Manuel MD, C CPT-4: 56507 11/04/2011 91923 EST. 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 09/18/2018 App[facility]ment[phone] (15 min) Moderate 09/18/2018 Patient Education: [...] spray. 08/31/2018 Appointment: [facility]jas [phone] [phone] (15 min) Moderate 08/31/2018 Patient Education: Patient [...] not improve. 05/22/2018 Appointment: Willow Garcia WPtel: [facility]5 [facility] (15 min) Moderate 05/22/2018 Patient [...] not improving. 11/18/2017 Appointment: Giuliana Manuel WPtel: [facility]5 [facility] (15 min) Moderate 11/18/2017 Patient Education: Patient Medication Summary Completed 11/18/2017 Appointment: Giuliana Manuel WPtel: [facility]6 [facility] (15 min) Moderate 11/07/2017 Visit Plan: [...] not improved. 08/03/2017 Appointment: Willow Garcia WPtel: [facility]5 [facility] (30 min) Complex 08/03/2017 Patient Education: Patient [...] D daily. 07/05/2017 Appointment: Giuliana Manuel WPtel: [facility]5 [facility] (15 min) Moderate 07/05/2017 Patient Education: Patient Medication Summary Completed 07/05/2017 Patient Education: Obesity Completed 07/05/2017 Appointment: Giuliana Manuel WPtel: [facility]5 [facility] (15 min) Moderate 06/27/2017 Appointment: Giuliana Manuel WPtel: [facility]5 [facility] (15 min) Moderate 06/21/2017 Appointment: Юлия Rojas WPtel: [facility]5 [phone] [place] (30 min) Complex 12/23/2016 Visit Plan: [...] RESTART HCTZ 12/02/2016 Appointment: Юлия Rojas WPtel: [phone] [phone] (30 min) Complex 12/02/2016 Patient Education: Patient [...] days 11/22/2016 Appointment: Giuliana Manuel WPtel: [phone] [facility] (15 min) Moderate 11/22/2016 Patient Education: Patient Medication Summary Completed 11/22/2016 Patient Education: Obesity Completed 11/22/2016 Visit Plan: Influenza - pt started on tamiflu - pt to start on anti-inflammatories, tylenol and monitor symptoms. Pt to call if not improving. Pt to alert any close contacts as to illness. 11/05/2016 Appointment: Willow Garcia WPtel: [phone] [facility] [place] (30 min) Complex 11/05/2016 Patient Education: [...] on carafate 07/22/2016 Appointment: Giuliana Manuel WPtel: [facility]5 [facility] (15 min) Moderate 07/22/2016 Patient Education: Patient Medication Summary Completed 07/22/2016 Patient Education: Obesity Completed 07/22/2016 Care Plan: Referral Order SNOMED-CT : [id number] Pending 07/22/2016 Visit Plan: Hypertension - well [...] Obesity Completed 05/19/2016 Appointment: Giuliana Manuel WPtel: [facility]5 [facility] [place] (15 min) Moderate 05/17/2016 Visit Plan: Hypertension - well con trolled - continue with current medications, continue with no added salt diet. Pt has been encouraged to exercise daily. The pt has been advised to call the office if there are any acute concerns about change in blood pressure readings at home. 02/13/2016 Appointment: Юлия Rojas WPtel: [phone] [place] (30 min) Complex 02/13/2016 Patient Education: [...] Completed 12/18/2015 Appointment: Giuliana Manuel WPtel: [phone] [facility] (15 min) Moderate 12/08/2015 Referral: Jared Lafleur 27[address] [facility] Referral Completed 10/17/2015 Visit Plan: Hypertension - [...] stress test. 09/08/2015 Appointment: Giuliana Manuel WPtel: [phone] [facility] (15 min) Moderate 09/08/2015 Patient Education: Patient Medication Summary Completed 09/08/2015 Patient Education: .Cervicalgia Neck Pain Completed 09/08/2015 Care Plan: Referral Order SNOMED-CT : [id number] Ordered 09/08/2015 Visit Plan: Hypertension - uncontro [...] checked today. 07/09/2015 Appointment: Giuliana Manuel WPtel: [phone] [facility] (15 min) Moderate 07/09/2015 Patient Education: Patient Medication Summary Completed 07/09/2015 Appointment: Giuliana Manuel WPtel: [facility]8 [facility] (15 min) Moderate 07/07/2015 Appointment: Giuliana Manuel WPtel: [address] [place], [place] [phone] Follow up 03/17/2015 Visit Plan: Hypertension - well con trolled - continue with current medications, continue with no added salt diet. Pt has been encouraged to exercise daily. The pt has been advised to call the office if there are any acute concerns about change in blood pressure readings at home. Palpitations resolved. 01/16/2015 Appointment: Mar Giuliana WPtel: [facility]0 [facility] Other 01/16/2015 Patient Education: Patient Medication [...] for break through pain symptoms. 01/03/2015 Appointment: Mar Giuliana WPtel: [address] [place], [place] [phone] Follow up 01/03/2015 Patient Education: Patient Medication [...] Hypertension Completed 09/16/2014 Appointment: Giuliana Manuel WPtel: [facility]5 [facility] Follow up 09/09/2014 Visit Plan: Hypertension [...] symptoms worsen. 08/15/2014 Appointment: Giuliana Manuel WPtel: [address] [place], [place] [phone] [facility] 08/15/2014 Patient Education: Patient Medication Summary Completed 08/15/2014 Patient Education: Hypertension Completed 08/15/2014 Care Plan: Referral Order SNOMED-CT : [id number] Ordered 08/15/2014 Appointment: Giuliana Manuel WPtel: [facility]5 [facility] Follow up 06/18/2014 Visit Plan: [facility]. Rash - reaction [...] home. 06/12/2014 Appointment: [phone] [facility] 06/12/2014 Patient Education: Patient Medication Summary Completed 06/12/2014 Patient Education: Hypertension Completed 06/12/2014 Care Plan: Referral Order SNOMED-CT : [id number] Ordered 06/12/2014 Visit Plan: Hypertension - well [...] xrays. 03/20/2014 Appointment: Giuliana Manuel WPtel: [phone] [facility] Follow up 03/20/2014 Patient Education: Patient [...] a UTI 12/10/2013 Appointment: Giuliana Manuel WPtel: [phone] [facility] Follow up 12/10/2013 Patient Education: Patient [...] times weekly. 09/17/2013 Appointment: Giuliana Manuel WPtel: [phone] [facility] Follow up 09/17/2013 Patient Education: Patient [...] rub. 05/21/2013 Appointment: Giuliana Manuel WPtel: [phone] [facility] Follow up 05/21/2013 Patient Education: Patient [...] the vertigo. 01/17/2013 Appointment: Giuliana Manuel WPtel: [address] [place], [place] [phone] Follow up 01/17/2013 Patient Education: Patient Medication [...] if needed. 09/20/2012 Appointment: Giuliana Manuel WPtel: [facility] Follow up 09/20/2012 Patient Education: [...] intolerance begin. 06/08/2012 Appointment: Giuliana Manuel WPtel: [facility]2 [facility] Follow up 06/08/2012 Patient Education: Patient [...] or popcorn. 04/10/2012 Appointment: Giuliana Manuel WPtel: [address] [place] [address] [place] Other 04/10/2012 Patient Education: Patient Medication [...] by Tuesday. 03/16/2012 Appointment: Giuliana Manuel WPtel: [facility]3 [facility] [place] Other 03/16/2012 Patient Education: Patient Medication [...] this regimen. 02/03/2012 Appointment: Giuliana Manuel WPtel: [address] [place], [place] [address] Other 02/03/2012 Patient Education: Patient Medication Summary [...] a week. 11/04/2011 Appointment: Giuliana Manuel WPtel: [address] [place], [place] [phone] Follow up 11/04/2011 Patient Education: Patient Medication [...] pneumonia shot 07/13/2011 Appointment: Giuliana Manuel WPtel: [facility]5 [facility] [place] Other 07/13/2011 Patient Education: Patient Medication Summary Completed 07/13/2011 Patient Education: .Belgicaing yana Diabe tic meal planning guide Completed 07/13/2011 Referral: Jared Lafleur [address] [facility] [place] Referral Appointment Requested Referral: Duarte Catalan Referral Appointment Requested Referral: Dr. Willams WPtel: [address] [place], [place] [phone] [place] Referral Initiated Referral: [facility] WPtel: [phone] [facility] [place] Referral Initiated Instructions Comment . Hypertension [...] Back pain - referr al to [facility]. Rash - reaction to soy [...] pressure readings at home. Palpitations resolved. . Hyperlipidemia - pt has been counseled [...] - need to consider a stress test. ibuprofen 2 pills 3 times a day [...] spray in the nasal steroid allergy spray. . Hypertension - wel l controlled - [...]
--- OUTSIDE RECORDS SUMMARY | 2020-01-21 14:20 | XMS REPORT | CCD ---
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/08/2015 Marital status Unknown M arried 07/13/[address]: 017295952 Nonsmoker 07/13/[address]: 071858346 Never drinks alcohol 07/13/2011 Allergies, Adverse Reactions, Alerts Substance Reaction Codes Entered Date Inactivated Date Status Soy Unknown 07/13/2011 No Inactive Date Active Cardizem RxNorm: 678642 05/19/2016 No Inactive Date Active Metoprolol Succinate [...] pain ICD-9: 789.00 Active 07/13/2011 Unknown 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 Active 07/13/2011 Unknown OBESITY ICD-9: [...] Abdominal pain ICD-9: 789.00 07/13/2011 Active 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 07/13/2011 Active OBESITY ICD-9: 278.00 07/13/2011 Active Postprandial bloating ICD-9: 787.3 07/13/2011 Active Seasonal allergies ICD- 9: 477.9 07/13/2011 Active VAC STREP PNEUMONIAE -FLU ICD-9: V06.6 07/13/2011 Active Medications Medication Codes Instruc tions Start Date Stop Date Sta tus Fill Instructions famotidine 40 mg tablet RxNorm: 496227 TAKE 1 TABLET BY MOUTH EVERY MORNING 10/02/2018 03/30/2019 Ac tive - First Attempt Ref: [id number] doxazosin 1 mg tablet RxNorm: 678504 TAKE 1 TABLET BY MOUTH EVERY DAY AT MIDN IGHT 10/02/2018 03/30/2019 Ac tive - First Attempt Ref: [id number] diclofenac 1 % topic al gel RxNorm: 351000 2 Application TOP QID 09/18/2018 11/16/2018 Active naproxen 500 mg tablet RxNorm: 542092 1 Tablet(s) PO BID 09/18/2018 09/24/2018 Inactive Kenalog 40 mg/mL karl pension for injection RxNorm: 3041775 1 Milliliter(s) Inj 08/31/2018 08/31/2018 In active clonidine HCl 0.1 mg tablet RxNorm: 660500 1/2 Tablet(s) PO BID 08/16/2018 08/10/2019 Active amoxicillin 500 mg t ablet RxNorm: 486087 1 Tablet(s) PO TID 08/14/2018 08/20/2018 Inactive losartan 25 mg tablet RxNorm: 244480 1 Tablet(s) PO BID 05/02/2018 04/26/2019 Active losartan 25 mg tablet RxNorm: 283718 1 Tablet(s) PO BID 05/02/2018 05/01/2018 Inactive losartan 25 mg tablet RxNorm: 765541 1 Tablet(s) PO BID 01/30/2018 05/01/2018 Inactive Vitamin D 2,000 unit capsule RxNorm: 1 Capsule(s) PO daily 11/18/2017 No Stop Date Active hydrochlorothiazide 12.5 mg tablet RxNorm: 362055 1 Tablet(s) PO daily 11/18/2017 11/12/2018 Ac tive atenolol 25 mg tablet RxNorm: 614399 1 Tablet(s) PO daily 11/18/2017 11/12/2018 Active atenolol 25 mg tablet RxNorm: 935349 1 Tablet(s) PO BID managed by Dr Lafleur 11/18/2017 11/17/2017 In active clonidine HCl 0.1 mg tablet RxNorm: 654775 1/2 Tablet(s) PO BID 11/18/2017 08/15/2018 Inactive doxazosin 1 mg tablet RxNorm: 844930 1 Tablet(s) PO daily at midnight 11/18/2017 10/01/2018 In active midnight losartan 25 mg tablet RxNorm: 246021 1 Tablet(s) PO BID 11/18/2017 01/29/2018 Inactive famotidine 40 mg tablet RxNorm: 925747 1 Tablet(s) PO daily TAKE 1 TABLET BY MO UTH EVERY MORNING 11/18/2017 10/01/2018 Inactive - Ref: [id number] hydrochlorothiazide 12.5 mg tablet RxNorm: 446334 1 Tablet(s) PO daily 10/28/2017 11/17/2017 In active famotidine 40 mg tablet RxNorm: 504504 TAKE 1 TABLET BY MOUTH EVERY MORNING 10/04/2017 11/17/2017 In active - Ref: [id number] clonidine HCl 0.1 mg tablet RxNorm: 272221 1/2 Tablet(s) PO BID 07/05/2017 11/17/2017 Inactive doxazosin 1 mg tablet RxNorm: 459920 1 Tablet(s) PO daily at midnight 07/05/2017 11/17/2017 In active midnight doxazosin 1 mg tablet RxNorm: 511070 1 Tablet(s) PO BID 12/02/2016 2017 Inactive midnight prednisone 20 mg tablet RxNorm: 643735 3 Tablet(s) PO daily 11/22/2016 11/26/2016 Inactive Tessalon Perles 100 mg capsule RxNorm: 857162 1 -2 Capsule(s) PO TI D as needed cough 11/19/2016 No Stop Date Active Zithromax Z-Jeff 250 mg tablet RxNorm: 804297 1 Tablet(s) PO UD 11/19/2016 12/01/2016 Inactive z pack as directed Tamiflu 75 mg capsule RxNorm: 067873 1 Capsule(s) PO BID 11/05/2016 11/09/2016 Inactive Kenalog 40 mg/mL karl pension for injection RxNorm: 9768162 Milliliter(s) Inj 11/05/2016 11/05/2016 In active Tessalon Perles 100 mg capsule RxNorm: 595269 1 -2 Capsule(s) PO TI D as needed cough 11/04/2016 11/18/2016 Inactive famotidine 40 mg tablet RxNorm: 063188 1 Tablet(s) PO QAM 10/25/2016 10/03/2017 Inactive famotidine 40 mg tablet RxNorm: 895741 1 Tablet(s) PO QAM 08/02/2016 10/24/2016 Inactive Carafate 1 gram tablet RxNorm: 400658 1 Tablet(s) PO TID DISSOLVE THE PILL IN 10ML OF WATER 07/22/2016 10/19/2016 Inactive clonidine HCl 0.1 mg tablet RxNorm: 747927 1 Tablet(s) PO BID an d 1 tablet as needed 07/22/2016 12/01/2016 Inactive aspirin 81 mg tablet ,delayed release RxNorm: 088038 1 Tablet(s) PO QHS 05/19/2016 No Stop Date Active Cinnamon 1000 mg RxNorm: 1 PO daily 05/19/2016 No Stop Date Active losartan 25 mg tablet RxNorm: 995979 1 Tablet(s) PO BID 05/19/2016 11/17/2017 Inactive atenolol 25 mg tablet RxNorm: 497973 1.5 Tablet(s) PO BID 02/13/2016 07/21/2016 Inactive losartan 25 mg tablet RxNorm: 008301 2 Tablet(s) PO BID 01/13/2016 05/11/2016 Inactive Cardizem CD 240 mg c apsule,extended release RxNorm: 884987 1 Capsule(s) PO daily 01/13/2016 02/12/2016 In active losartan 100 mg tablet RxNorm: 516180 1/2 Tablet(s) PO BID 01/08/2016 01/12/2016 Inactive losartan 25 mg tablet RxNorm: 282571 2 Tablet(s) PO QPM 1 Tablet(s) PO QPM 12/18/2015 01/07/2016 In active atenolol 25 mg tablet RxNorm: 887575 1.5 Tablet(s) PO BID TAKE ONE TABLET BY MOUTH TWICE A DAY 12/18/2015 01/12/2016 Inactive atenolol 25 mg tablet RxNorm: 831543 Tablet(s) TAKE ONE TABLET BY MOUTH TWICE A DAY 11/14/2015 12/17/2015 Inactive losartan 25 mg tablet RxNorm: 365204 Tablet(s) 1 Tablet(s) PO QPM 11/14/2015 12/17/2015 Inactive spironolactone 25 mg tablet RxNorm: 304013 1 Tablet(s) PO daily 11/14/2015 12/14/2015 Inactive atenolol 25 mg tablet RxNorm: 225557 TAKE ONE TABLET BY MOUTH TWICE A DAY 08/07/2015 11/13/2015 In active atenolol 25 mg tablet RxNorm: 147044 1 Tablet(s) PO daily TAKE ONE TABLET BY MOUTH TWICE DAILY 08/06/2015 08/06/2015 Inactive Generic For:TENORMIN 25 MG TABLET 05/05/2015 10:00:22 AM atenolol 25 mg tablet RxNorm: 780643 1 Tablet(s) PO daily TAKE ONE TABLET BY MOUTH TWICE DAILY 08/06/2015 08/05/2015 Inactive Generic For:TENORMIN 25 MG TABLET 05/05/2015 10:00:22 AM betamethasone diprop ionate 0.05 % topical ointment RxNorm: 249741 1 TOP TID as needed rash 07/09/2015 05/18/2016 Inactive betamethasone diprop ionate 0.05 % topical ointment RxNorm: 118997 1 TOP TID as needed rash 07/09/2015 07/08/2015 Inactive spironolactone 25 mg tablet RxNorm: 247701 1 Tablet(s) PO daily 07/09/2015 07/08/2015 Inactive spironolactone 25 mg tablet RxNorm: 958904 1 Tablet(s) PO daily 07/09/2015 11/13/2015 Inactive losartan 25 mg tablet RxNorm: 394086 Tablet(s) 1 Tablet(s) PO QPM 05/27/2015 11/13/2015 Inactive atenolol 25 mg tablet RxNorm: 894508 TAKE ONE TABLET BY MOUTH TWICE DAILY 05/05/2015 08/05/2015 In active Generic For:TENORMIN 25 MG TABLET 05/05 10:00:22 AM hydrochlorothiazide 25 mg tablet RxNorm: 377888 1/2 Tablet(s) PO BID 02/17/2015 07/08/2015 Inactive Generic For:HYDRODIURIL 25 MG TABLET sulfamethoxazole 800 mg-trimethoprim 160 mg tablet RxNorm: 792748 1 Tablet(s) PO BID 01/16/2015 01/25/2015 Inactive losartan 25 mg tablet RxNorm: 444884 1 Tablet(s) PO QPM 12/09/2014 05/26/2015 Inactive Kenalog 40 mg/mL karl pension for injection RxNorm: 8163232 1 Milliliter(s) Inj 09/16/2014 09/16/2014 In active prednisone 20 mg tablet RxNorm: 454458 3 Tablet(s) PO daily 09/16/2014 09/18/2014 Inactive losartan 25 mg tablet RxNorm: 523863 1 Tablet(s) PO QPM 08/15/2014 12/08/2014 Inactive hydrochlorothiazide 25 mg tablet RxNorm: 868845 TAKE 1/2 TABLET BY MO UTH TWICE DAILY 08/13/2014 02/08/2015 Inactive Generic For:HYDRODIURIL 25 MG TABLET atenolol 25 mg tablet RxNorm: 108517 TAKE ONE TABLET BY MOUTH TWICE DAILY 05/07/2014 05/01/2015 In active Generic For:TENORMIN 25 MG TABLET ketorolac 60 mg/2 mL intramuscular solution RxNorm: 157654 2 Milliliter(s) IM 03/20/2014 03/20/2014 In active hydrochlorothiazide 25 mg tablet RxNorm: 581764 Tablet(s) PO TAKE 1/2 TABLET BY MOUTH TWICE DAILY 02/14/2014 08/12/2014 Inactive Generic For:HYDRODIURIL 25 MG TABLET Generic For:HYDRODIURIL 25 MG TABLET 02/14/2014 3:45:03 PM atorvastatin 10 mg t ablet RxNorm: 181274 1 Tablet(s) PO TIW 09/17/2013 03/19/2014 Inactive atorvastatin 10 mg t ablet RxNorm: 471300 tablet oral 09/17/2013 06/04/2015 Inactive hydrochlorothiazide 25 mg tablet RxNorm: 573179 Tablet(s) PO TAKE 1/2 TABLET BY MOUTH TWICE DAILY 08/06/2013 02/13/2014 Inactive Generic For:HYDRODIURIL 25 MG TABLET Generic For:HYDRODIURIL 25 MG TABLET 08/06/2013 1:52:35 PM amoxicillin 500 mg t ablet RxNorm: 930782 2 Tablet(s) PO 2 tabl ets PO 1 hour before dental procedure. 07/26/2013 07/25/2013 Inactive amoxicillin 500 mg t ablet RxNorm: 274639 2 Tablet(s) PO 2 tabl ets PO 1 hour before dental procedure. 07/26/2013 07/26/2013 Inactive methotrexate sodium 2.5 mg tablet RxNorm: 241856 tablet oral 07/13/2013 01/15/2015 Inactive atenolol 25 mg tablet RxNorm: 163578 Tablet(s) PO TAKE ONE TABLET BY MOUTH TW ICE DAILY 05/01/2013 05/06/2014 Inactive Generic For:TENORMIN 25 MG TABLET hydrochlorothiazide 25 mg tablet RxNorm: 305631 Tablet(s) PO TAKE 1/2 TABLET BY MOUTH TWICE DAILY 11/21/2012 08/05/2013 Inactive Generic For:HYDRODIURIL 25 MG TABLET atenolol 25 mg tablet RxNorm: 938329 Tablet(s) PO TAKE ONE TABLET BY MOUTH TW ICE DAILY 10/02/2012 04/30/2013 Inactive Generic For:TENORMIN 25 MG TABLET gemfibrozil 600 mg t ablet RxNorm: 789409 1 Tablet(s) PO BID 06/08/2012 10/08/2012 Inactive meclizine 25 mg tablet RxNorm: 789173 1 Tablet(s) PO Q4 PRN 06/08/2012 09/05/2012 Inactive prednisone 10 mg Tab RxNorm: 885074 2 Tablet(s) PO daily 03/16/2012 03/20/2012 Inactive atorvastatin 10 mg Tab RxNorm: 367653 1 Tablet(s) PO daily 12/21/2011 12/20/2011 Inactive atorvastatin 10 mg Tab RxNorm: 946995 1 Tablet(s) PO daily 12/21/2011 06/08/2012 Inactive methotrexate sodium 2.5 mg Tab RxNorm: 916868 Tablet(s) PO 11/16/2011 06/12/2012 Inactive 3 on tuesday3 on hydrochlorothiazide 25 mg Tab RxNorm: 081280 1/2 Tablet(s) PO BID 11/01/2011 11/24/2012 Inactive hydrochlorothiazide 12.5 mg Cap RxNorm: 882569 Capsule(s) PO 11/01/2011 06/08/2012 Inactive TAKE ONE TABLET BY MOUTH TWICE DAILY;Gen sky For:MICROZIDE 12.5 MG CAPSULE hydrochlorothiazide 25 mg Tab RxNorm: 861051 1/2 Tablet(s) PO BID 11/01/2011 11/24/2012 Inactive hydrochlorothiazide 25 mg tablet RxNorm: 927952 1/2 Tablet(s) PO BID 11/01/2011 10/31/2011 Inactive hydrochlorothiazide 25 mg Tab RxNorm: 262543 1/2 Tablet(s) PO BID 11/01/2011 10/31/2011 Inactive atenolol 25 mg tablet RxNorm: 906180 Tablet(s) PO 10/04/2011 10/01/2012 Inactive TAKE ONE TABLET BY MOUTH TWICE DAILY;Generic For:TENORMIN 25 MG TABLET hydrochlorothiazide 12.5 mg Cap RxNorm: 302589 1 Capsule(s) PO BID 09/13/2011 10/31/2011 Inactive Influenza Virus Vacc ine 0.5 mL RxNorm: IM 07/13/2011 07/13/2011 Inactive Pneumovax 23 25 mcg/ 0.5 mL Injection RxNorm: 940874 Milliliter(s) Inj 07/13/2011 07/13/2011 In active Phenergan VC-Codeine 6.25 mg-5 mg-10 mg/5 mL syrup RxNorm: 243916 5 Milliliter(s) PO Q6 as needed No Start Date Active Sharon 3 Cap RxNorm: 1 Capsule(s) PO BID No Start Date Active Cinnamon 1000 mg RxNorm: 2 PO daily No Start Date Active atenolol 25 mg Tab RxNorm: 391095 1 Tablet(s) PO BID No Start Date 10/03/2011 Inactive niacin ER 500 mg Cap RxNorm: 810245 1 Capsule(s) PO daily No Start Date 06/08/2012 Inactive gemfibrozil 600 mg t ablet RxNorm: 807896 1 Tablet(s) PO BID No Start Date 06/07/2012 Inactive Vitamin C 500 mg Tab RxNorm: 495909 1 Tablet(s) PO daily No Start Date 07/21/2016 Inactive Zithromax Z-Jeff 250 mg tablet RxNorm: 448638 1 Tablet(s) PO UD No Start Date 11/18/2016 Inactive z pack as directed doxazosin 1 mg tablet RxNorm: 673426 1 Tablet(s) PO BID No Start Date 12/01/2016 Inactive vitamin E (dl, aceta te) 400 unit Cap RxNorm: 718641 1 Capsule(s) PO daily No Start Date 07/21/2016 Inactive famotidine 40 mg tablet RxNorm: 505116 1 Tablet(s) PO QAM No Start Date 08/01/2016 Inactive hydrochlorothiazide 25 mg Tab RxNorm: 636091 1/2 Tablet(s) PO BID No Start Date 09/12/2011 Inactive Tessalon Perles 100 mg capsule RxNorm: 639900 1 -2 Capsule(s) PO TI D as needed cough No Start Date 11/03/2016 Inactive aspirin 81 mg Tab, D elayed Release RxNorm: 845722 1 Tablet(s) PO every other day No Start Date 05/18/2016 Inactive Cinnamon 1000 mg RxNorm: 2 PO daily No Start Date 05/18/2016 Inactive clonidine HCl 0.1 mg tablet RxNorm: 012189 1 Tablet(s) PO QHS an d 1 Tablet as needed No Start Date 07/21/2016 Inactive niacin 500 mg tablet RxNorm: 383749 1 Tablet(s) PO QHS No Start Date 01/01/2015 Inactive multivitamin Tab RxNorm: 1 Tablet(s) PO daily No Start Date 07/21/2016 Inactive methotrexate sodium 2.5 mg Tab RxNorm: 891889 Tablet(s) PO No Start Date 11/15/2011 Inactive 3 on tuesday3 on T-Bio RxNorm: 1 PO daily No Start Date 05/18/2016 Inactive Vitamin D 2,000 unit Cap RxNorm: 1 Capsule(s) PO daily No Start Date 07/21/2016 Inactive hydrochlorothiazide 12.5 mg tablet RxNorm: 811707 1 Tablet(s) PO daily No Start Date 10/27/2017 Inactive Medication Administered Medication Codes Instruc tions Start Date Status Kenalog 40 mg/mL suspension for injection RxNorm: 2929948 1Milliliter 08/31/2018 N o longer Active Kenalog 40 mg/mL suspension for injection RxNorm: 8565669 Milliliter 11/05/2016 No longer Active Kenalog 40 mg/mL suspension for injection RxNorm: 5258488 1Milliliter 09/16/2014 N o longer Active ketorolac 60 mg/2 mL intramuscular solution RxNorm: 011458 2Milliliter 03/20/2014 N o longer Active Pneumovax 23 25 mcg/0.5 mL Injection RxNorm: 031753 Milliliter 07/13/2011 No longer Active Influenza Virus [...] 02/03/2012 VITAMIN DEFICIENCY ICD-9: 269.2 11/04/2011 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 07/13/2011 Postprandial bloating ICD-9: 787.3 [...] Ord64 K 3.8 mEq/L 12/06/2016 Comp Metabolic Fon466 NA 134 mEq/L 12/03/2016 Comp Metabolic Pqs848 K Specimen 3+ Hemolyzed mEq/L 12/04/19 Comp Metabolic Jqr596 CL 106 mEq/L 12/03/2016 Comp Metabolic Dxt660 CO2 20.0 mEq/L 12/03/2016 Comp Metabolic Ymd563 AN ION GAP 16 12/03/2016 Comp Metabolic Sui013 GL UCOSE 93 mg/dL 12/03/2016 Comp Metabolic Ngv033 Cr eat 0.8 mg/dL 12/03/2016 Comp Metabolic Rdp013 eG FR 73 ml/min/1.73m2 12/03 Comp Metabolic Lag075 BUN 14 mg/dL 12/03/2016 Comp Metabolic Rql479 B/ C Ratio 17.1 Ratio 12/03/2016 Comp Metabolic Pge410 CA LCIUM 9.3 mg/dL 12/03/2016 Comp Metabolic Kww307 AL K PHOS 63 U/L 12/03/2016 Comp Metabolic Pcm352 T(SGOT) 69 U/L 12/03/2016 Comp Metabolic Zfx334 AL T(SGPT) 33 U/L 12/03/2016 Comp Metabolic Bal608 BI LI T 1.0 mg/dL 12/03/2016 Comp Metabolic Bhq013 AL BUMIN 4.3 g/dL 12/03/2016 Comp Metabolic Lkh123 TP RO 6.7 g/dL 12/03/2016 Comp Metabolic Lyk267 GL OB 2.4 g/dL 12/03/2016 Comp Metabolic Agc941 A/ G Ratio 1.7 Ratio 12/03/2016 Comp Metabolic Bcg385 Os mo 268 mOsmo 12/03/2016 Comp Metabolic Gdl031 NA 138 mEq/L 12/18/2015 Comp Metabolic Nkw082 K 4.1 mEq/L 12/18/2015 Comp Metabolic Rtg821 CL 104 mEq/L 12/18/2015 Comp Metabolic Gnu098 CO2 22.0 mEq/L 12/18/2015 Comp Metabolic Wht911 AN ION GAP 16 12/18/2015 Comp Metabolic Pau585 GL UCOSE 89 mg/dL 12/18/2015 Comp Metabolic Bur263 Cr eat 0.6 mg/dL 12/18/2015 Comp Metabolic Olc217 eG FR 99 ml/min/1.73m2 12/17 Comp Metabolic Wav904 BUN 15 mg/dL 12/18/2015 Comp Metabolic Syv614 B/ C Ratio 23.8 Ratio 12/18/2015 Comp Metabolic Pyj492 CA LCIUM 10.4 mg/dL 12/18/2015 Comp Metabolic Mpm712 AL K PHOS 77 U/L 12/18/2015 Comp Metabolic Xgy680 T(SGOT) 19 U/L 12/18/2015 Comp Metabolic Fzc854 AL T(SGPT) 17 U/L 12/18/2015 Comp Metabolic Ayq082 BI LI T 0.8 mg/dL 12/18/2015 Comp Metabolic Sfl360 AL BUMIN 4.3 g/dL 12/18/2015 Comp Metabolic Qui670 TP RO 6.7 g/dL 12/18/2015 Comp Metabolic Hwj946 GL OB 2.4 g/dL 12/18/2015 Comp Metabolic Wal288 A/ G Ratio 1.7 Ratio 12/18/2015 Comp Metabolic Hcf614 Os mo 276 mOsmo 12/18/2015 Cbc With Differential Ord2 WBC 8.41 K/ul 12/18/2015 Cbc With Differential Ord2 RBC 5.18 M/ul 12/18/2015 Cbc With Differential Ord2 HGB 15.3 g/dl 12/18/2015 Cbc With Differential Ord2 HCT 46.3 % 12/18/2015 Cbc With Differential Ord2 Neut% 58.3 % 12/18/2015 Cbc With Differential Ord2 Lymph% 30.6 % 12/18/2015 Cbc With Differential Ord2 MCV 89.4 fl 12/18/2015 Cbc With Differential Ord2 Sully% 9.4 % 12/18/2015 Cbc With Differential Ord2 MCH 29.5 pg 12/18/2015 Cbc With Differential Ord2 MCHC 33.0 pg 12/18/2015 Cbc With Differential Ord2 Eos% 1.2 % 12/18/2015 Cbc With Differential Ord2 Baso% 0.5 % 12/18/2015 Cbc With Differential Ord2 PLT 306 K/ul 12/18/2015 Cbc With Differential Ord2 RDW 14.9 % 12/18/2015 Cbc With Differential Ord2 Neut ABS# 4.91 K/ul 12/18/2015 Cbc With Differential Ord2 Lymph ABS# 2.57 K/ul 12/18/2015 Cbc With Differential Ord2 Sully ABS# 0.8 K/ul 12/18/2015 Cbc With Differential Ord2 Eos ABS# 0.1 K/ul 12/18/2015 Cbc With Differential Ord2 Baso ABS# 0.0 K/ul 12/18/2015 Cbc With Differential Ord2 New Analyzer Notice Please note new ref ranges s tarting 10-15-2015 due to implemntation of new five part differential hematolgy analyzer. 12/18/2015 Total T3 Ord42 TT3 1.0 ng/ml 07/10/2015 Free T4 Ezv520 FREE T4 0.90 ng/dL 07/09/2015 Free T3 Gmj273 Free T3 2.92 pg/ml 07/09/2015 Tsh Ord6 hTSH II 1.18 uIU/mL 07/09/2015 URINALYSIS NONAUTO W/O SCOPE 05148 Specific [place] 1.005 DateTime(Free Text in Aprima) URINALYSIS NONAUTO W/O SCOPE 74425 PH 6 DateTime(Free Text in Aprima) URINALYSIS NONAUTO W/O SCOPE 19465 GLUCOSE neg DateTime(Free Dano t in Apr) URINALYSIS NONAUTO W/O SCOPE 95014 Protein neg DateTime(Free Dano t in Aprima) URINALYSIS NONAUTO W/O SCOPE 54000 Blood neg DateTime(Free Dano t in Aprima) URINALYSIS NONAUTO W/O SCOPE 56483 Bilirubin neg DateTime(Free Dano t in Apr) URINALYSIS NONAUTO W/O SCOPE 70691 Ketones neg DateTime(Free Dano t in Aprima) URINALYSIS NONAUTO W/O SCOPE 58128 Urobilinogen neg DateTime(Free Text in Apr) URINALYSIS NONAUTO W/O SCOPE 31991 Nitrite neg DateTime(Free Dano t in Apr) URINALYSIS NONAUTO W/O SCOPE 77049 Leukocytes neg DateTime(Free Text in Apr) Review [...] Formatting Model/CDA Sections, Assigned to/Kimberley Fagan CPT-4: [id number] 07/06/2018 ADMIN INFLUENZA VIRU S VAC CPT-4: G0008 07/05/2017 FLU VACC PRSV FREE I NC ANTIG CPT-4: 51726 07/05/2017 THER/PROPH/DIAG INJ SC/IM CPT-4: 14888 11/05/2016 TRIAMCINOLONE ACET I [place] NOS CPT-4: J3301 11/05/2016 TRIAMCINOLONE ACET I [place] NOS CPT-4: J3301 09/16/2014 DRAIN/INJECT JOINT/B URSA CPT-4: 14695 09/16/2014 KETOROLAC TROMETHAMI NE INJ CPT-4: J1885 03/20/2014 URINALYSIS NONAUTO W /O SCOPE CPT-4: 35761 12/10/2013 PRESCRIP TRANSMIT A ERX SY CPT-4: G8553 09/17/2013 PRESCRIP TRANSMIT A ERX SY CPT-4: G8553 06/08/2012 TRIAMCINOLONE ACET I [place] NOS CPT-4: J3301 03/16/2012 INJ TRIGGER POINT 1/ 2 MUSCL CPT-4: 01705 03/16/2012 PRESCRIP TRANSMIT A ERX SY CPT-4: G8553 03/16/2012 ADMIN INFLUENZA VIRU S VAC CPT-4: G0008 07/13/2011 FLULAVAL VACC, 3 YRS & >, IM CPT-4: Q2036 07/13/2011 ADMIN PNEUMOCOCCAL V ACCINE SNOMED CT: 28318045 CPT-4: G0009 07/13/2011 Pneumococcal Polysac charide Vaccine, 23-Valent, Ad CPT-4: 11602 07/13/2011 Vital Signs Date Vital 09/18/2018 Blood Pressure 1: 126/70 Code: 8480-6 BMI: 36.3 Code: 88375-7 Heart Rate 1: 58 bpm Height: 5'3" SpO2: 98% Weight: 205 lbs 08/31/2018 Blood Pressure 1: 148/76 Code: 8480-6 BMI: 37.0 Code: 61954-2 Heart Rate 1: 60 bpm Height: 5'3" SpO2: 98% Weight: 209 lbs 08/14/2018 Blood Pressure 1: 140/80 Code: 8480-6 BMI: 37.2 Code: 73657-0 Heart Rate 1: 76 bpm Height: 5'3" SpO2: 96% Weight: 210 lbs 05/22/2018 Blood Pressure 1: 150/62 Code: 8480-6 BMI: 36.7 Code: 20631-6 Heart Rate 1: 74 bpm Height: 5'3" SpO2: 98% Weight: 207 lbs 11/18/2017 Blood Pressure 1: 122/66 Code: 8480-6 BMI: 35.8 Code: 05468-7 Heart Rate 1: 59 bpm Height: 5'3" SpO2: 97% Weight: 202 lbs 08/03/2017 Blood Pressure 1: 122/60 Code: 8480-6 BMI: 36.0 Code: 53273-7 Heart Rate 1: 60 bpm Height: 5'3" SpO2: 97% Weight: 203 lbs 07/05/2017 Blood Pressure 1: 140/76 Code: 8480-6 BMI: 36.0 Code: 41287-3 Heart Rate 1: 58 bpm Height: 5'3" SpO2: 98% Weight: 203 lbs 12/02/2016 Blood Pressure 1: 122/70 Code: 8480-6 BMI: 34.4 Code: 25107-2 Heart Rate 1: 66 bpm Height: 5'3" SpO2: 99% Temperature: 36.4 (C ) / 97.5 (F) Weight: 194 lbs 11/22/2016 Blood Pressure 1: 102/60 Code: 8480-6 BMI: 34.2 Code: 71441-3 Heart Rate 1: 110 bpm Height: 5'3" SpO2: 98% Temperature: 36.7 (C ) / 98.0 (F) Weight: 193 lbs 11/05/2016 Blood Pressure 1: 140/62 Code: 8480-6 BMI: 36.1 Code: 42108-3 Heart Rate 1: 102 bpm Height: 5'3" SpO2: 97% Temperature: 37.1 (C ) / 98.7 (F) Weight: 204 lbs 07/22/2016 Blood Pressure 1: 158/80 Code: 8480-6 Blood Pressure 1: 160/76 Code: 8480-6 BMI: 36.8 Code: 19119-2 Heart Rate 1: 56 bpm Height: 5'3" SpO2: 98% Weight: 208 lbs 05/19/2016 Blood Pressure 1: 150/78 Code: 8480-6 Blood Pressure 1: 122/69 Code: 8480-6 BMI: 37.0 Code: 06976-9 Heart Rate 1: 61 bpm Height: 5'3" SpO2: 98% Weight: 209 lbs 02/13/2016 Blood Pressure 1: 140/76 Code: 8480-6 BMI: 36.8 Code: 80060-0 Heart Rate 1: 64 bpm Height: 5'3" SpO2: 97% Weight: 208 lbs 01/13/2016 Blood Pressure 1: 170/70 Code: 8480-6 BMI: 36.8 Code: 77283-4 Heart Rate 1: 65 bpm Height: 5'3" SpO2: 95% Weight: 208 lbs 01/02/2016 Blood Pressure 1: 150/88 Code: 8480-6 BMI: 36.8 Code: 16334-2 Heart Rate 1: 61 bpm Height: 5'3" SpO2: 98% Weight: 208 lbs 12/18/2015 Blood Pressure 1: 148/90 Code: 8480-6 BMI: 37.6 Code: 52133-4 Heart Rate 1: 64 bpm Height: 5'3" SpO2: 96% Weight: 212 lbs 09/08/2015 Blood Pressure 1: 130/88 Code: 8480-6 BMI: 37.0 Code: 62649-8 Heart Rate 1: 62 bpm Height: 5'3" SpO2: 97% Weight: 209 lbs 07/09/2015 Blood Pressure 1: 142/82 Code: 8480-6 BMI: 36.4 Code: 26813-6 Heart Rate 1: 66 bpm Height: 5'3" SpO2: 97% Weight: 205 lbs 5 oz 01/16/2015 Blood Pressure 1: 122/80 Code: 8480-6 BMI: 35.6 Code: 91546-6 Heart Rate 1: 67 bpm Height: 5'3" SpO2: 98% Weight: 201 lbs 01/03/2015 Blood Pressure 1: 122/70 Code: 8480-6 BMI: 35.6 Code: 50877-4 Heart Rate 1: 61 bpm Height: 5'3" Respiratory Rate: 16 bpm SpO2: 98% Weight: 201 lbs 09/16/2014 Blood Pressure 1: 132/78 Code: 8480-6 BMI: 34.9 Code: 72219-1 Heart Rate 1: 56 bpm Height: 5'3" Weight: 197 lbs 08/15/2014 Blood Pressure 1: 152/80 Code: 8480-6 Blood Pressure 2: 160/82 Code: 8480-6 BMI: 34.0 Code: 48251-1 Heart Rate 1: 75 bpm Height: 5'3" Weight: 192 lbs 06/12/2014 Blood Pressure 1: 136/82 Code: 8480-6 BMI: 34.9 Code: 87342-7 Heart Rate 1: 58 bpm Height: 5'3" SpO2: 96% Weight: 197 lbs 03/20/2014 Blood Pressure 1: 140/72 Code: 8480-6 BMI: 34.9 Code: 70818-4 Heart Rate 1: 60 bpm Height: 5'3" Weight: 197 lbs 12/10/2013 Blood Pressure 1: 132/78 Code: 8480-6 BMI: 35.1 Code: 91211-8 Heart Rate 1: 68 bpm Height: 5'3" Weight: 198 lbs 09/17/2013 Blood Pressure 1: 128/78 Code: 8480-6 BMI: 34.9 Code: 38913-0 Heart Rate 1: 68 bpm Height: 5'3" Weight: 197 lbs 05/21/2013 Blood Pressure 1: 128/82 Code: 8480-6 BMI: 35.6 Code: 51662-9 Heart Rate 1: 80 bpm Height: 5'3" Weight: 201 lbs 01/17/2013 Blood Pressure 1: 138/72 Code: 8480-6 BMI: 36.7 Code: 26445-8 Heart Rate 1: 60 bpm Height: 5'3" [...] 1: 140/78 Code: 8480-6 BMI: 40.0 Code: 91686-5 Heart Rate 1: 64 bpm Height: 5'3" Respiratory Rate: 16 bpm Weight: 226 lbs 11/04/2011 Blood Pressure 1: 136/76 Code: 8480-6 Heart Rate 1: 68 bpm Respiratory Rate: 16 bpm Weight: 226 lbs 07/13/2011 Blood Pressure 1: 142/80 Code: 8480-6 BMI: 40.0 Code: 51254-1 Heart Rate 1: 60 bpm Height: 5'4" [...] Encounters Encounter Performer Loca tion Codes Date ([id number]) [id number] EST. 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 P ATIENT, LEVEL III Diagnosis: Nasal congestion[ICD10: R09.81] Diagnosis: Other allergic rhinitis[ICD10: J30.89] Юлия Manuel MD, [facility] CPT-4: 56595 08/31/2018 ([id number]) 59835 EST. P ATIENT, LEVEL III Diagnosis: Acute recurrent maxillary sinusitis[ICD10: J01.01] Юлия Manuel MD, [facility] CPT-4: 19567 08/14/2018 19796 EST. PATIENT, LEVEL III Diagnosis: Pain in right shoulder[ICD10: M25.511] Diagnosis: Pain in right arm[ICD10: M79.601] Willow Manuel MD, [facility] CPT-4: 09643 05/22/2018 ([id number]) 32986 EST. 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 PATIENT, LEVEL III Diagnosis: Other specified intestinal infections[ICD10: A08.8] Willow Manuel MD, [facility] CPT-4: 20272 08/03/2017 ([id number]) 83352 EST. 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 P ATIENT, LEVEL III Diagnosis: Essential (primary) hypertension[ICD10: I10] Юлия Manuel MD, [facility] CPT-4: 30379 12/02/2016 ([id number]) 36366 EST. P ATIENT, LEVEL III Diagnosis: Essential (primary) hypertension[ICD10: I10] Diagnosis: Allergic rhinitis due to pollen[ICD10: J30.1] Giuliana Manuel MD, C CPT-4: 54156 11/22/2016 84588 EST. PATIENT, LEVEL III Diagnosis: Acute laryngopharyngitis[ICD10: J06.0] Diagnosis: Influenza due to unidentified influenza virus with other respiratory manifestations[ICD10: J11.1] Willow Manuel MD, [facility] CPT-4: 43232 11/05/2016 ([id number]) 58097 EST. P ATIENT, LEVEL III Diagnosis: Gastro-esophageal reflux disease without esophagitis[ICD10: K21.9] Diagnosis: Essential (primary) hypertension[ICD10: I10] Giuliana Manuel MD, [facility] CPT-4: 14016 07/22/2016 ([id number]) 39388 EST. P ATIENT, LEVEL IV Diagnosis: Essential (primary) hypertension[ICD10: I10] Diagnosis: Abdominal distension (gaseous)[ICD10: R14.0] Giuliana Manuel MD, [facility] CPT-4: 83822 05/19/2016 ([id number]) 92191 EST. P ATIENT, LEVEL III Diagnosis: Essential (primary) hypertension[ICD10: I10] Юлия Manuel MD, [facility] CPT-4: 23608 02/13/2016 ([id number]) 81084 EST. P ATIENT, LEVEL III Diagnosis: Essential (primary) hypertension[ICD10: I10] Юлия Manuel MD, [facility] CPT-4: 01553 01/13/2016 25507 EST. PATIENT, LEVEL IV Diagnosis: Essential (primary) hypertension[ICD10: I10] Diagnosis: Body mass index (BMI) 36.0-36.9, adult[ICD10: Z68.36] Willow Manuel MD, [facility] CPT-4: 80383 01/02/2016 ([id number]) 06980 EST. P ATIENT, LEVEL III Diagnosis: Essential (primary) hypertension[ICD10: I10] Юлия Manuel MD, [facility] CPT-4: 26454 12/18/2015 ([id number]) 80877 EST. P ATIENT, LEVEL IV Diagnosis: Essential (primary) hypertension[ICD10: I10] Diagnosis: Benign paroxysmal vertigo, bilateral[ICD10: H81.13] Diagnosis: Radiculopathy, cervical region[ICD10: M54.12] Giuliana Manuel MD, [facility] CPT-4: 19435 09/08/2015 ([id number]) 94707 EST. P ATIENT, LEVEL IV Diagnosis: Other specified nonscarring hair loss[ICD10: L65.8] Diagnosis: Myositis, unspecified[ICD10: M60.9] Diagnosis: Psoriasis, unspecified[ICD10: L40.9] Diagnosis: Essential (primary) hypertension[ICD10: I10] Giuliana Manuel MD, [facility] CPT-4: 78892 07/09/2015 ([id number]) 91930 EST. P ATIENT, LEVEL III Diagnosis: ESSENTIAL HYPERTENSION[ICD9: 401.9] Giuliana Manuel MD, [facility] CPT- 4: 70640 01/16/2015 ([id number]) 40514 EST. P ATIENT, LEVEL III Diagnosis: Shoulder pain[ICD9: 719.41] Diagnosis: ESSENTIAL HYPERTENSION[ICD9: 401.9] Diagnosis: PALPITATIONS[ICD9: 785.1] Giuliana Manuel MD, [facility] CPT-4: 66899 01/03/2015 ([id number]) 92834 EST. P ATIENT, LEVEL III Diagnosis: Sacroiliitis[ICD9: 720.2] Diagnosis: Back pain[ICD9: 724.5] Diagnosis: ESSENTIAL HYPERTENSION[ICD9: 401.9] Giuliana Manuel MD, [facility] CPT- 4: 00188 09/16/2014 ([id number]) 34810 EST. P ATIENT, LEVEL IV Diagnosis: ESSENTIAL HYPERTENSION[ICD9: 401.9] Diagnosis: Arrhythmia[ICD9: 427.9] Diagnosis: Nausea[ICD9: 787.02] Giuliana Manuel MD, [facility] CPT-4: 75809 08/15/2014 ([id number]) 89387 EST. P ATIENT, LEVEL IV Diagnosis: ESSENTIAL HYPERTENSION[ICD9: 401.9] Diagnosis: Back pain[ICD9: 724.5] Diagnosis: Allergic reaction[ICD9: 995.3] Giuliana Manuel MD, [facility] CPT-4: 04545 06/12/2014 ([id number]) 41073 EST. P ATIENT, LEVEL III Diagnosis: Thoracic back pain[ICD9: 724.1] Diagnosis: MYALGIA AND MYOSITIS[ICD9: 729.1] Giuliana Manuel MD, [facility] CPT-4: 66743 03/20/2014 ([id number]) 61399 EST. P ATIENT, LEVEL IV Diagnosis: HYPERLIPIDEMIA[ICD9: 272.4] Diagnosis: ESSENTIAL HYPERTENSION[SNOMED: 06202469] Diagnosis: ABDOM PAIN NOS SITE[ICD9: 789.00] Giuliana Manuel MD, [facility] CPT-4: 05176 12/10/2013 ([id number]) 16032 EST. P ATIENT, LEVEL IV Diagnosis: ESSENTIAL HYPERTENSION[SNOMED: 31275453] Diagnosis: HYPERLIPIDEMIA[ICD9: 272.4] Giuliana Manuel MD, [facility] CPT-4: 09135 09/17/2013 ([id number]) 31755 EST. P ATIENT, LEVEL IV Diagnosis: ESSENTIAL HYPERTENSION[SNOMED: 55230632] Diagnosis: OBESITY[ICD9: 278.00] Diagnosis: Back pain[ICD9: 724.5] Giuliana Manuel MD, [facility] CPT-4: 72702 05/21/2013 ([id number]) 64201 EST. P ATIENT, LEVEL IV Diagnosis: ESSENTIAL HYPERTENSION[SNOMED: 86261717] Diagnosis: HYPERLIPIDEMIA[ICD9: 272.4] Diagnosis: Abdominal pain[ICD9: 789.00] Diagnosis: BENIGN PAROXYSMAL VERTIGO[ICD9: 386.11] Giuliana Manuel MD, [facility] CPT-4: 02776 01/17/2013 ([id number]) 68989 EST. P ATIENT, LEVEL IV Diagnosis: ESSENTIAL HYPERTENSION[SNOMED: 96887451] Diagnosis: BENIGN PAROXYSMAL VERTIGO[ICD9: 386.11] Diagnosis: Hair loss[ICD9: 704.00] Diagnosis: Vitamin d deficiency[ICD9: 268.9] Diagnosis: Bleeding from the nose[ICD9: 784.7] Giuliana Manuel MD, [facility] CPT- 4: 74828 09/20/2012 35997 EST. PATIENT, LEVEL IV Diagnosis: BPPV (benign paroxysmal positional vertigo)[ICD9: 386.11] Diagnosis: HYPERLIPIDEMIA[ICD9: 272.4] Diagnosis: ESSENTIAL HYPERTENSION[SNOMED: 01244076] Giuliana Manuel MD, C CPT-4: 34520 06/08/2012 ([id number]) 42026 EST. P ATIENT, LEVEL IV Diagnosis: BPPV (benign paroxysmal positional vertigo)[ICD9: 386.11] Diagnosis: Diverticulitis[ICD9: 562.11] Diagnosis: Abdominal pain[ICD9: 789.00] Giuliana Manuel MD, [facility] CPT-4: 27084 04/10/2012 ([id number]) 21673 EST. P ATIENT, LEVEL III Diagnosis: Neck pain[ICD9: 723.1] Diagnosis: Acute upper back pain[ICD9: 724.1] Giuliana Manuel MD, [facility] CPT- 4: 75830 03/16/2012 ([id number]) 62217 EST. P ATIENT, LEVEL IV Diagnosis: HYPERLIPIDEMIA[ICD9: 272.4] Diagnosis: ESSENTIAL HYPERTENSION[SNOMED: 60757386] Diagnosis: Constipation - functional[ICD9: 564.09] Giuliana Manuel MD, [facility] CPT-4: 99732 02/03/2012 ([id number]) 02956 EST. P ATIENT, LEVEL IV Diagnosis: HYPERLIPIDEMIA[ICD9: 272.4] Diagnosis: VITAMIN DEFICIENCY[ICD9: 269.2] Diagnosis: ESSENTIAL HYPERTENSION[SNOMED: 07858487] Giuliana Manuel MD, [facility] CPT-4: 96883 11/04/2011 [id number] EST. 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 09/18/2018 Appointment: Giuliana Manuel WPtel: [phone] [facility] (15 min) Moderate 09/18/2018 Patient [...] spray. 08/31/2018 Appointment: Юлия Rojas WPtel: [phone] [phone] [place] (15 min) Moderate 08/31/2018 Patient Education: [...] improve. 05/22/2018 Appointment: Willow Garcia WPtel: [phone] [facility] (15 min) Moderate 05/22/2018 Patient Education: Patient [...] improving. 11/18/2017 Appointment: Giuliana Manuel WPtel: [phone] [facility] (15 min) Moderate 11/18/2017 Patient Education: Patient Medication Summary Completed 11/18/2017 Appointment: Giuliana Manuel WPtel: [address] [facility] (15 min) Moderate 11/07/2017 Visit [...] improved. 08/03/2017 Appointment: Willow Garcia WPtel: [phone] [facility] (30 min) Complex 08/03/2017 Patient Education: Patient Medication Summary Completed 08/03/2017 Patient Education: Obesity Completed 08/03/2017 Visit Plan: Hypertension - well con elvined - continue with current medications, continue with [...] daily. 07/05/2017 Appointment: Giuliana Manuel WPtel: [phone] [facility] (15 min) Moderate 07/05/2017 Patient Education: Patient Medication Summary Completed 07/05/2017 Patient Education: Obesity Completed 07/05/2017 Appointment: Giuliana Manuel WPtel: [facility] (15 min) Moderate 06/27/2017 Appointment: Giuliana Manuel WPtel: [facility]5 [facility] (15 min) Moderate 06/21/2017 Appointment: Юлия Rojas WPtel: [phone] [place] (30 min) Complex 12/23/2016 Visit Plan: [...] RESTART HCTZ 12/02/2016 Appointment: Юлия Rojas WPtel: [phone] [phone] (30 min) Complex 12/02/2016 Patient Education: Patient [...] 7 days 11/22/2016 Appointment: Giuliana Manuel WPtel: [facility]8 [facility] (15 min) Moderate 11/22/2016 Patient Education: Patient Medication Summary Completed 11/22/2016 Patient Education: Obesity Completed 11/22/2016 Visit Plan: Influenza - pt started on tamiflu - pt to start on anti-inflammatories, tylenol and monitor symptoms. Pt to call if not improving. Pt to alert any close contacts as to illness. 11/05/2016 Appointment: Willow Garcia WPtel: [facility] (30 min) Complex 11/05/2016 Patient Education: Patient [...] on carafate 07/22/2016 Appointment: Giuliana Manuel WPtel: [phone] [facility] (15 min) Moderate 07/22/2016 Patient Education: Patient Medication Summary Completed 07/22/2016 Patient Education: Obesity Completed 07/22/2016 Care Plan: Referral Order SNOMED-CT : [id number] Pending 07/22/2016 Visit Plan: Hypertension - well [...] Obesity Completed 05/19/2016 Appointment: Giuliana Manuel WPtel: [facility] (15 min) Moderate 05/17/2016 Visit Plan: Hypertension - well con trolled - continue with current medications, continue with no added salt diet. Pt has been encouraged to exercise daily. The pt has been advised to call the office if there are any acute concerns about change in blood pressure readings at home. 02/13/2016 Appointment: [facility]jas [phone] [place] (30 min) Complex 02/13/2016 Patient Education: [...] Completed 12/18/2015 Appointment: Giul[facility] Manuel [phone] (15 min) Moderate 12/08/2015 [facility] Referral Completed 10/17/2015 Visit Plan: Hypertension [...] test. 09/08/2015 Appointment: Giuliana Manuel WPtel: [address] [place], [place] [phone] (15 min) Moderate 09/08/2015 Patient Education: Patient Medication Summary Completed 09/08/2015 Patient Education: .Cervicalgia Neck Pain Completed 09/08/2015 Care Plan: Referral Order SNOMED-CT : [id number] Ordered 09/08/2015 Visit Plan: Hypertension - uncontro [...] today. 07/09/2015 Appointment: Giuliana Manuel WPtel: [address] [place], [place] [phone] (15 min) Moderate 07/09/2015 Patient Education: Patient Medication Summary Completed 07/09/2015 Appointment: Giuliana Manuel WPtel: [facility]9 [facility] (15 min) Moderate 07/07/2015 Appointment: Giuliana Manuel WPtel: [address] [place], [place] [phone] Follow up 03/17/2015 Visit Plan: Hypertension - well con trolled - continue with current medications, continue with no added salt diet. Pt has been encouraged to exercise daily. The pt has been advised to call the office if there are any acute concerns about change in blood pressure readings at home. Palpitations resolved. 01/16/2015 Appointment: Giuliana Manuel WPtel: [address] [place], [place] [phone] Other 01/16/2015 Patient Education: Patient Medication Summary [...] pain symptoms. 01/03/2015 Appointment: Giuliana Manuel WPtel: [address] [place], [place] [phone] Follow up 01/03/2015 Patient Education: Patient Medication [...] Hypertension Completed 09/16/2014 Appointment: Giuliana Manuel WPtel: [address] [place], [place] [phone] Follow up 09/09/2014 Visit Plan: Hypertension - [...] symptoms worsen. 08/15/2014 Appointment: Giuliana Manuel WPtel: [address] [place] [address] Sick 08/15/2014 Patient Education: Patient Medication Summary Completed 08/15/2014 Patient Education: Hypertension Completed 08/15/2014 Care Plan: Referral Order SNOMED-CT : [id number] Ordered 08/15/2014 Appointment: Giuliana Manuel WPtel: [address] [place], [place] [phone] Follow up 06/18/2014 Visit Plan: [facility]. Rash - reaction to [...] at home. 06/12/2014 Appointment: Giuliana Manuel WPtel: [facility] Sick 06/12/2014 Patient Education: Patient Medication Summary Completed 06/12/2014 Patient Education: Hypertension Completed 06/12/2014 Care Plan: Referral Order SNOMED-CT : [id number] Ordered 06/12/2014 Visit Plan: Hypertension - well con seanlled [...] spine xrays. 03/20/2014 Appointment: Giuliana Manuel WPtel: [phone] Follow up 03/20/2014 Patient Education: Patient Medication [...] a UTI 12/10/2013 Appointment: Giuliana Manuel WPtel: [phone] Follow up 12/10/2013 Patient Education: Patient Medication Summary Completed 12/10/2013 Patient Education: Hypertension Completed 12/10/2013 Visit Plan: Hypertension - well con seanlled [...] weekly. 09/17/2013 Appointment: Giuliana Manuel WPtel: [phone] Follow up 09/17/2013 Patient Education: Patient Medication [...] rub. 05/21/2013 Appointment: Giuliana Manuel WPtel: [phone] [facility] Follow up 05/21/2013 Patient Education: [...] the vertigo. 01/17/2013 Appointment: Giuliana Manuel WPtel: [address] [place], [place] [phone] Follow up 01/17/2013 Patient Education: Patient Medication [...] needed. 09/20/2012 Appointment: Giuliana Manuel WPtel: [address] [place], [place] [phone] Follow up 09/20/2012 Patient Education: Patient Medication [...] begin. 06/08/2012 Appointment: Giuliana Manuel WPtel: [address] [place], [place] [phone] Follow up 06/08/2012 Patient Education: Patient Medication [...] popcorn. 04/10/2012 Appointment: Giuliana Manuel WPtel: [phone] [facility] Other 04/10/2012 Patient Education: Patient [...] Tuesday. 03/16/2012 Appointment: Giuliana Manuel WPtel: [phone] [facility] Other 03/16/2012 Patient Education: Patient [...] regimen. 02/03/2012 Appointment: Giuliana Manuel WPtel: [phone] [facility] Other 02/03/2012 Patient Education: Patient Medication Summary [...] a week. 11/04/2011 Appointment: Giuliana Manuel WPtel: [phone] [facility] Follow up 11/04/2011 Patient Education: Patient [...] She will monitor her intake. [facility]ergies - [facility] to see ifnallergy medication helps to prevent the headaches flu shot pneumonia shot 07/13/2011 Appointment: Giuliana Manuel WPtel: [phone] Other 07/13/2011 Patient Education: Patient Medication Summary Completed 07/13/2011 Patient Education: .[employer] yana craven meal planning guide Completed 07/13/2011 Referral: Jared Lafleur [address] Referral Appointment Requested Referral: Duarte Catalan Referral Appointment Requested Referral: Dr. Willams WPtel: [address] [place] [address] [place] Referral Initiated Referral: [facility] WPtel: [phone] [place] [address] [place] Referral Initiated Instructions Comment Continue with atenol ol and HCTZ, Start [...] cipro. No seeds, nuts, or popcorn. . Trigger Points - I njected trigger [...] and throacic spine xrays. . Hypertension - wel l controlled - [...] atorvastatin and start three times weekly. . Hyperlipidemia - pt has been counseled [...] . Back pain - referr al to [facility] therapy. Rash - reaction to [...] if symptoms not improved. . Hypertension - uncontrolled - the patient's [...] recommended pt to have labs checked today. hold clonidine x 3 d ays then [...] symptoms of intolerance begin. . Hypertension - unc ontrolled - the [...] call for acute concerns. . Hypertension - wel l controlled - [...] Pt given exercises for the vertigo. . Hyperlipidemia - pt has been counseled [...] 5000mg of vitamin D once a week. STOP CLONIDINE INCREASE DOXAZOSIN TO TWICE DAILY [...] TWICE DAILY-CHECK POTASSIUM LEVEL-OKAY TO RESTART HCTZ Add a losartan pill in the morning. [...] in 2 weeks for weight check. . Influenza - pt sta rted on [...]
--- OUTSIDE RECORDS SUMMARY | 2020-01-21 14:22 | XMS REPORT | CCD ---
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/08/2015 Marital status Unknown M arried 07/13/[address]: 180685929 Nonsmoker 07/13/[address]: 284402456 Never drinks alcohol 07/13/2011 Allergies, Adverse Reactions, Alerts Substance Reaction Codes Entered Date Inactivated Date Status Soy Unknown 07/13/2011 No Inactive Date Active Cardizem RxNorm: 324435 05/19/2016 No Inactive Date Active Metoprolol Succinate [...] pain ICD-9: 789.00 Active 07/13/2011 Unknown 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 Active 07/13/2011 Unknown OBESITY ICD-9: [...] Abdominal pain ICD-9: 789.00 07/13/2011 Active 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 07/13/2011 Active OBESITY ICD-9: 278.00 07/13/2011 Active Postprandial bloating ICD-9: 787.3 07/13/2011 Active Seasonal allergies ICD- 9: 477.9 07/13/2011 Active VAC STREP PNEUMONIAE -FLU ICD-9: V06.6 07/13/2011 Active Medications Medication Codes Instruc tions Start Date Stop Date Sta tus Fill Instructions naproxen 500 mg tablet RxNorm: 206291 1 Tablet(s) PO BID 09/18/2018 09/24/2018 Active diclofenac 1 % topic al gel RxNorm: 867464 2 Application TOP QID 09/18/2018 11/16/2018 Active Kenalog 40 mg/mL karl pension for injection RxNorm: 8085508 1 Milliliter(s) Inj 08/31/2018 08/31/2018 In active clonidine HCl 0.1 mg tablet RxNorm: 655758 1/2 Tablet(s) PO BID 08/16/2018 08/10/2019 Active amoxicillin 500 mg t ablet RxNorm: 724700 1 Tablet(s) PO TID 08/14/2018 08/20/2018 Inactive losartan 25 mg tablet RxNorm: 214053 1 Tablet(s) PO BID 05/02/2018 04/26/2019 Active losartan 25 mg tablet RxNorm: 296665 1 Tablet(s) PO BID 05/02/2018 05/01/2018 Inactive losartan 25 mg tablet RxNorm: 632584 1 Tablet(s) PO BID 01/30/2018 05/01/2018 Inactive Vitamin D 2,000 unit capsule RxNorm: 1 Capsule(s) PO daily 11/18/2017 No Stop Date Active doxazosin 1 mg tablet RxNorm: 379068 1 Tablet(s) PO daily at midnight 11/18/2017 11/12/2018 Ac tive midnight hydrochlorothiazide 12.5 mg tablet RxNorm: 260053 1 Tablet(s) PO daily 11/18/2017 11/12/2018 Ac tive atenolol 25 mg tablet RxNorm: 343870 1 Tablet(s) PO daily 11/18/2017 11/12/2018 Active famotidine 40 mg tablet RxNorm: 209931 1 Tablet(s) PO daily TAKE 1 TABLET BY [facility] EVERY MORNING 11/18/2017 11/12/2018 Active - Ref: [id number] atenolol 25 mg tablet RxNorm: 949559 1 Tablet(s) PO BID managed by Dr Lafleur 11/18/2017 11/17/2017 In active clonidine HCl 0.1 mg tablet RxNorm: 717403 1/2 Tablet(s) PO BID 11/18/2017 08/15/2018 Inactive losartan 25 mg tablet RxNorm: 287721 1 Tablet(s) PO BID 11/18/2017 01/29/2018 Inactive hydrochlorothiazide 12.5 mg tablet RxNorm: 764865 1 Tablet(s) PO daily 10/28/2017 11/17/2017 In active famotidine 40 mg tablet RxNorm: 259500 TAKE 1 TABLET BY MOUTH EVERY MORNING 10/04/2017 11/17/2017 In active - Ref: [id number] clonidine HCl 0.1 mg tablet RxNorm: 088900 1/2 Tablet(s) PO BID 07/05/2017 11/17/2017 Inactive doxazosin 1 mg tablet RxNorm: 716663 1 Tablet(s) PO daily at midnight 07/05/2017 11/17/2017 In active midnight doxazosin 1 mg tablet RxNorm: 032843 1 Tablet(s) PO BID 12/02/2016 2017 Inactive midnight prednisone 20 mg tablet RxNorm: 914832 3 Tablet(s) PO daily 11/22/2016 11/26/2016 Inactive Tessalon Perles 100 mg capsule RxNorm: 584640 1 -2 Capsule(s) PO TI D as needed cough 11/19/2016 No Stop Date Active Zithromax Z-Jeff 250 mg tablet RxNorm: 986176 1 Tablet(s) PO UD 11/19/2016 12/01/2016 Inactive z pack as directed Tamiflu 75 mg capsule RxNorm: 015397 1 Capsule(s) PO BID 11/05/2016 11/09/2016 Inactive Kenalog 40 mg/mL karl pension for injection RxNorm: 6748289 Milliliter(s) Inj 11/05/2016 11/05/2016 In active Tessalon Perles 100 mg capsule RxNorm: 035139 1 -2 Capsule(s) PO TI D as needed cough 11/04/2016 11/18/2016 Inactive famotidine 40 mg tablet RxNorm: 098181 1 Tablet(s) PO QAM 10/25/2016 10/03/2017 Inactive famotidine 40 mg tablet RxNorm: 734255 1 Tablet(s) PO QAM 08/02/2016 10/24/2016 Inactive Carafate 1 gram tablet RxNorm: 034686 1 Tablet(s) PO TID DISSOLVE THE PILL IN 10ML OF WATER 07/22/2016 10/19/2016 Inactive clonidine HCl 0.1 mg tablet RxNorm: 500693 1 Tablet(s) PO BID an d 1 tablet as needed 07/22/2016 12/01/2016 Inactive aspirin 81 mg tablet ,delayed release RxNorm: 998109 1 Tablet(s) PO QHS 05/19/2016 No Stop Date Active Cinnamon 1000 mg RxNorm: 1 PO daily 05/19/2016 No Stop Date Active losartan 25 mg tablet RxNorm: 721450 1 Tablet(s) PO BID 05/19/2016 11/17/2017 Inactive atenolol 25 mg tablet RxNorm: 947722 1.5 Tablet(s) PO BID 02/13/2016 07/21/2016 Inactive losartan 25 mg tablet RxNorm: 547112 2 Tablet(s) PO BID 01/13/2016 05/11/2016 Inactive Cardizem CD 240 mg c apsule,extended release RxNorm: 783432 1 Capsule(s) PO daily 01/13/2016 02/12/2016 In active losartan 100 mg tablet RxNorm: 849052 1/2 Tablet(s) PO BID 01/08/2016 01/12/2016 Inactive losartan 25 mg tablet RxNorm: 283350 2 Tablet(s) PO QPM 1 Tablet(s) PO QPM 12/18/2015 01/07/2016 In active atenolol 25 mg tablet RxNorm: 355135 1.5 Tablet(s) PO BID TAKE ONE TABLET BY MOUTH TWICE A DAY 12/18/2015 01/12/2016 Inactive atenolol 25 mg tablet RxNorm: 108300 Tablet(s) TAKE ONE TABLET BY MOUTH TWICE A DAY 11/14/2015 12/17/2015 Inactive losartan 25 mg tablet RxNorm: 448988 Tablet(s) 1 Tablet(s) PO QPM 11/14/2015 12/17/2015 Inactive spironolactone 25 mg tablet RxNorm: 009151 1 Tablet(s) PO daily 11/14/2015 12/14/2015 Inactive atenolol 25 mg tablet RxNorm: 823813 TAKE ONE TABLET BY MOUTH TWICE A DAY 08/07/2015 11/13/2015 In active atenolol 25 mg tablet RxNorm: 292148 1 Tablet(s) PO daily TAKE ONE TABLET BY MOUTH TWICE DAILY 08/06/2015 08/06/2015 Inactive Generic For:TENORMIN 25 MG TABLET 05/05/2015 10:00:22 AM atenolol 25 mg tablet RxNorm: 033192 1 Tablet(s) PO daily TAKE ONE TABLET BY MOUTH TWICE DAILY 08/06/2015 08/05/2015 Inactive Generic For:TENORMIN 25 MG TABLET 05/05/2015 10:00:22 AM betamethasone diprop ionate 0.05 % topical ointment RxNorm: 510220 1 TOP TID as needed rash 07/09/2015 05/18/2016 Inactive betamethasone diprop ionate 0.05 % topical ointment RxNorm: 375319 1 TOP TID as needed rash 07/09/2015 07/08/2015 Inactive spironolactone 25 mg tablet RxNorm: 305461 1 Tablet(s) PO daily 07/09/2015 07/08/2015 Inactive spironolactone 25 mg tablet RxNorm: 799920 1 Tablet(s) PO daily 07/09/2015 11/13/2015 Inactive losartan 25 mg tablet RxNorm: 390883 Tablet(s) 1 Tablet(s) PO QPM 05/27/2015 11/13/2015 Inactive atenolol 25 mg tablet RxNorm: 757921 TAKE ONE TABLET BY MOUTH TWICE DAILY 05/05/2015 08/05/2015 In active Generic For:TENORMIN 25 MG TABLET 05/05 10:00:22 AM hydrochlorothiazide 25 mg tablet RxNorm: 482917 1/2 Tablet(s) PO BID 02/17/2015 07/08/2015 Inactive Generic For:HYDRODIURIL 25 MG TABLET sulfamethoxazole 800 mg-trimethoprim 160 mg tablet RxNorm: 310228 1 Tablet(s) PO BID 01/16/2015 01/25/2015 Inactive losartan 25 mg tablet RxNorm: 676970 1 Tablet(s) PO QPM 12/09/2014 05/26/2015 Inactive Kenalog 40 mg/mL karl pension for injection RxNorm: 3918473 1 Milliliter(s) Inj 09/16/2014 09/16/2014 In active prednisone 20 mg tablet RxNorm: 297371 3 Tablet(s) PO daily 09/16/2014 09/18/2014 Inactive losartan 25 mg tablet RxNorm: 446729 1 Tablet(s) PO QPM 08/15/2014 12/08/2014 Inactive hydrochlorothiazide 25 mg tablet RxNorm: 861695 TAKE 1/2 TABLET BY MO UTH TWICE DAILY 08/13/2014 02/08/2015 Inactive Generic For:HYDRODIURIL 25 MG TABLET atenolol 25 mg tablet RxNorm: 188320 TAKE ONE TABLET BY MOUTH TWICE DAILY 05/07/2014 05/01/2015 In active Generic For:TENORMIN 25 MG TABLET ketorolac 60 mg/2 mL intramuscular solution RxNorm: 078767 2 Milliliter(s) IM 03/20/2014 03/20/2014 In active hydrochlorothiazide 25 mg tablet RxNorm: 995383 Tablet(s) PO TAKE 1/2 TABLET BY MOUTH TWICE DAILY 02/14/2014 08/12/2014 Inactive Generic For:HYDRODIURIL 25 MG TABLET Generic For:HYDRODIURIL 25 MG TABLET 02/14/2014 3:45:03 PM atorvastatin 10 mg t ablet RxNorm: 044164 1 Tablet(s) PO TIW 09/17/2013 03/19/2014 Inactive atorvastatin 10 mg t ablet RxNorm: 614040 tablet oral 09/17/2013 06/04/2015 Inactive hydrochlorothiazide 25 mg tablet RxNorm: 510501 Tablet(s) PO TAKE 1/2 TABLET BY MOUTH TWICE DAILY 08/06/2013 02/13/2014 Inactive Generic For:HYDRODIURIL 25 MG TABLET Generic For:HYDRODIURIL 25 MG TABLET 08/06/2013 1:52:35 PM amoxicillin 500 mg t ablet RxNorm: 214776 2 Tablet(s) PO 2 tabl ets PO 1 hour before dental procedure. 07/26/2013 07/25/2013 Inactive amoxicillin 500 mg t ablet RxNorm: 798055 2 Tablet(s) PO 2 tabl ets PO 1 hour before dental procedure. 07/26/2013 07/26/2013 Inactive methotrexate sodium 2.5 mg tablet RxNorm: 875121 tablet oral 07/13/2013 01/15/2015 Inactive atenolol 25 mg tablet RxNorm: 874557 Tablet(s) PO TAKE ONE TABLET BY MOUTH TW ICE DAILY 05/01/2013 05/06/2014 Inactive Generic For:TENORMIN 25 MG TABLET hydrochlorothiazide 25 mg tablet RxNorm: 848687 Tablet(s) PO TAKE 1/2 TABLET BY MOUTH TWICE DAILY 11/21/2012 08/05/2013 Inactive Generic For:HYDRODIURIL 25 MG TABLET atenolol 25 mg tablet RxNorm: 432448 Tablet(s) PO TAKE ONE TABLET BY MOUTH TW ICE DAILY 10/02/2012 04/30/2013 Inactive Generic For:TENORMIN 25 MG TABLET gemfibrozil 600 mg t ablet RxNorm: 726569 1 Tablet(s) PO BID 06/08/2012 10/08/2012 Inactive meclizine 25 mg tablet RxNorm: 581621 1 Tablet(s) PO Q4 PRN 06/08/2012 09/05/2012 Inactive prednisone 10 mg Tab RxNorm: 236876 2 Tablet(s) PO daily 03/16/2012 03/20/2012 Inactive atorvastatin 10 mg Tab RxNorm: 143423 1 Tablet(s) PO daily 12/21/2011 12/20/2011 Inactive atorvastatin 10 mg Tab RxNorm: 069361 1 Tablet(s) PO daily 12/21/2011 06/08/2012 Inactive methotrexate sodium 2.5 mg Tab RxNorm: 798843 Tablet(s) PO 11/16/2011 06/12/2012 Inactive 3 on tuesday3 on hydrochlorothiazide 25 mg Tab RxNorm: 177646 1/2 Tablet(s) PO BID 11/01/2011 11/24/2012 Inactive hydrochlorothiazide 12.5 mg Cap RxNorm: 187086 Capsule(s) PO 11/01/2011 06/08/2012 Inactive TAKE ONE TABLET BY MOUTH TWICE DAILY;Gen sky For:MICROZIDE 12.5 MG CAPSULE hydrochlorothiazide 25 mg Tab RxNorm: 787315 1/2 Tablet(s) PO BID 11/01/2011 11/24/2012 Inactive hydrochlorothiazide 25 mg tablet RxNorm: 432876 1/2 Tablet(s) PO BID 11/01/2011 10/31/2011 Inactive hydrochlorothiazide 25 mg Tab RxNorm: 442998 1/2 Tablet(s) PO BID 11/01/2011 10/31/2011 Inactive atenolol 25 mg tablet RxNorm: 825738 Tablet(s) PO 10/04/2011 10/01/2012 Inactive TAKE ONE TABLET BY MOUTH TWICE DAILY;Generic For:TENORMIN 25 MG TABLET hydrochlorothiazide 12.5 mg Cap RxNorm: 365004 1 Capsule(s) PO BID 09/13/2011 10/31/2011 Inactive Influenza Virus Vacc ine 0.5 mL RxNorm: IM 07/13/2011 07/13/2011 Inactive Pneumovax 23 25 mcg/ 0.5 mL Injection RxNorm: 104448 Milliliter(s) Inj 07/13/2011 07/13/2011 In active Phenergan VC-Codeine 6.25 mg-5 mg-10 mg/5 mL syrup RxNorm: 103111 5 Milliliter(s) PO Q6 as needed No Start Date Active [place] 3 Cap RxNorm: 1 Capsule(s) PO BID No Start Date Active Cinnamon 1000 mg RxNorm: 2 PO daily No Start Date Active atenolol 25 mg Tab RxNorm: 939466 1 Tablet(s) PO BID No Start Date 10/03/2011 Inactive niacin ER 500 mg Cap RxNorm: 526644 1 Capsule(s) PO daily No Start Date 06/08/2012 Inactive gemfibrozil 600 mg t ablet RxNorm: 197019 1 Tablet(s) PO BID No Start Date 06/07/2012 Inactive Vitamin C 500 mg Tab RxNorm: 882086 1 Tablet(s) PO daily No Start Date 07/21/2016 Inactive Zithromax Z-Jeff 250 mg tablet RxNorm: 580678 1 Tablet(s) PO UD No Start Date 11/18/2016 Inactive z pack as directed doxazosin 1 mg tablet RxNorm: 300486 1 Tablet(s) PO BID No Start Date 12/01/2016 Inactive vitamin E (dl, aceta te) 400 unit Cap RxNorm: 862803 1 Capsule(s) PO daily No Start Date 07/21/2016 Inactive famotidine 40 mg tablet RxNorm: 801327 1 Tablet(s) PO QAM No Start Date 08/01/2016 Inactive hydrochlorothiazide 25 mg Tab RxNorm: 192381 1/2 Tablet(s) PO BID No Start Date 09/12/2011 Inactive Tessalon Perles 100 mg capsule RxNorm: 723280 1 -2 Capsule(s) PO TI D as needed cough No Start Date 11/03/2016 Inactive aspirin 81 mg Tab, D elayed Release RxNorm: 756765 1 Tablet(s) PO every other day No Start Date 05/18/2016 Inactive Cinnamon 1000 mg RxNorm: 2 PO daily No Start Date 05/18/2016 Inactive clonidine HCl 0.1 mg tablet RxNorm: 399137 1 Tablet(s) PO QHS an d 1 Tablet as needed No Start Date 07/21/2016 Inactive niacin 500 mg tablet RxNorm: 174069 1 Tablet(s) PO QHS No Start Date 01/01/2015 Inactive multivitamin Tab RxNorm: 1 Tablet(s) PO daily No Start Date 07/21/2016 Inactive methotrexate sodium 2.5 mg Tab RxNorm: 985489 Tablet(s) PO No Start Date 11/15/2011 Inactive 3 on tuesday3 on T-Bio RxNorm: 1 PO daily No Start Date 05/18/2016 Inactive Vitamin D 2,000 unit Cap RxNorm: 1 Capsule(s) PO daily No Start Date 07/21/2016 Inactive hydrochlorothiazide 12.5 mg tablet RxNorm: 157959 1 Tablet(s) PO daily No Start Date 10/27/2017 Inactive Medication Administered Medication Codes Instruc tions Start Date Status Kenalog 40 mg/mL suspension for injection RxNorm: 2006411 1Milliliter 08/31/2018 N o longer Active Kenalog 40 mg/mL suspension for injection RxNorm: 9726668 Milliliter 11/05/2016 No longer Active Kenalog 40 mg/mL suspension for injection RxNorm: 7971749 1Milliliter 09/16/2014 N o longer Active ketorolac 60 mg/2 mL intramuscular solution RxNorm: 357721 2Milliliter 03/20/2014 N o longer Active Pneumovax 23 25 mcg/0.5 mL Injection RxNorm: 034434 Milliliter 07/13/2011 No longer Active Influenza Virus [...] 02/03/2012 VITAMIN DEFICIENCY ICD-9: 269.2 11/04/2011 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 07/13/2011 Postprandial bloating ICD-9: 787.3 [...] Ord64 K 3.8 mEq/L 12/06/2016 Comp Metabolic Fps473 NA 134 mEq/L 12/03/2016 Comp Metabolic Hwn542 K Specimen 3+ Hemolyzed mEq/L 12/04/19 17 Comp Metabolic Oec233 CL 106 mEq/L 12/03/2016 Comp Metabolic Iks575 CO2 20.0 mEq/L 12/03/2016 Comp Metabolic Bdf758 AN ION GAP 16 12/03/2016 Comp Metabolic Hva344 GL UCOSE 93 mg/dL 12/03/2016 Comp Metabolic Jui368 Cr eat 0.8 mg/dL 12/03/2016 Comp Metabolic Auf354 eG FR 73 ml/min/1.73m2 12/03 Comp Metabolic Xcp436 BUN 14 mg/dL 12/03/2016 Comp Metabolic Dek188 B/ C Ratio 17.1 Ratio 12/03/2016 Comp Metabolic Gjm220 CA LCIUM 9.3 mg/dL 12/03/2016 Comp Metabolic Zcb230 AL K PHOS 63 U/L 12/03/2016 Comp Metabolic Dnu872 T(SGOT) 69 U/L 12/03/2016 Comp Metabolic Urd322 AL T(SGPT) 33 U/L 12/03/2016 Comp Metabolic Dvd296 BI LI T 1.0 mg/dL 12/03/2016 Comp Metabolic Isg212 AL BUMIN 4.3 g/dL 12/03/2016 Comp Metabolic Wzs525 TP RO 6.7 g/dL 12/03/2016 Comp Metabolic Lgi417 GL OB 2.4 g/dL 12/03/2016 Comp Metabolic Vnj675 A/ G Ratio 1.7 Ratio 12/03/2016 Comp Metabolic Wwi182 Os mo 268 mOsmo 12/03/2016 Comp Metabolic Frf833 NA 138 mEq/L 12/18/2015 Comp Metabolic Nxv942 K 4.1 mEq/L 12/18/2015 Comp Metabolic Ukw923 CL 104 mEq/L 12/18/2015 Comp Metabolic Quc769 CO2 22.0 mEq/L 12/18/2015 Comp Metabolic Xmp963 AN ION GAP 16 12/18/2015 Comp Metabolic Qli900 GL UCOSE 89 mg/dL 12/18/2015 Comp Metabolic Hjs170 Cr eat 0.6 mg/dL 12/18/2015 Comp Metabolic Fqm670 eG FR 99 ml/min/1.73m2 12/17 Comp Metabolic Ufx759 BUN 15 mg/dL 12/18/2015 Comp Metabolic Uug438 B/ C Ratio 23.8 Ratio 12/18/2015 Comp Metabolic Bka037 CA LCIUM 10.4 mg/dL 12/18/2015 Comp Metabolic Kgy309 AL K PHOS 77 U/L 12/18/2015 Comp Metabolic Pyu615 T(SGOT) 19 U/L 12/18/2015 Comp Metabolic Lon312 AL T(SGPT) 17 U/L 12/18/2015 Comp Metabolic Mtb808 BI LI T 0.8 mg/dL 12/18/2015 Comp Metabolic Yvr339 AL BUMIN 4.3 g/dL 12/18/2015 Comp Metabolic Zis824 TP RO 6.7 g/dL 12/18/2015 Comp Metabolic Fbc112 GL OB 2.4 g/dL 12/18/2015 Comp Metabolic Sfj658 A/ G Ratio 1.7 Ratio 12/18/2015 Comp Metabolic Kpo559 Os mo 276 mOsmo 12/18/2015 Cbc With [...] 89.4 fl 12/18/2015 Cbc With Differential Ord2 Mcdowell% 9.4 % 12/18/2015 Cbc With Differential Ord2 [...] 2.57 K/ul 12/18/2015 Cbc With Differential Ord2 Mcdowell ABS# 0.8 K/ul 12/18/2015 Cbc With Differential Ord2 Eos ABS# 0.1 K/ul 12/18/2015 Cbc With Differential Ord2 Baso ABS# 0.0 K/ul 12/18/2015 Cbc With Differential Ord2 New Analyzer Notice Please note new ref ranges s tarting 10-15-2015 due to implemntation of new five part differential hematolgy analyzer. 12/18/2015 Total T3 Ord42 TT3 1.0 ng/ml 07/10/2015 Free T4 Xsr403 FREE T4 0.90 ng/dL 07/09/2015 Free T3 Rmt520 Free T3 2.92 pg/ml 07/09/2015 Tsh Ord6 hTSH II 1.18 uIU/mL 07/09/2015 URINALYSIS NONAUTO W/O SCOPE 80276 Specific [place] 1.005 DateTime(Free Text in Aprima) URINALYSIS NONAUTO W/O SCOPE 23042 PH 6 DateTime(Free Text in Aprima) URINALYSIS NONAUTO W/O SCOPE 63070 GLUCOSE neg DateTime(Free Dano t in Aprima) URINALYSIS NONAUTO W/O SCOPE 96065 Protein neg DateTime(Free Dano t in Aprima) URINALYSIS NONAUTO W/O SCOPE 14588 Blood neg DateTime(Free Dano t in Aprima) URINALYSIS NONAUTO W/O SCOPE 77323 Bilirubin neg DateTime(Free Dano t in Aprima) URINALYSIS NONAUTO W/O SCOPE 29986 Ketones neg DateTime(Free Dano t in Apr) URINALYSIS NONAUTO W/O SCOPE 24362 Urobilinogen neg DateTime(Free Text in Apr) URINALYSIS NONAUTO W/O SCOPE 07172 Nitrite neg DateTime(Free Dano t in Apr) URINALYSIS NONAUTO W/O SCOPE 62875 Leukocytes neg DateTime(Free Text in ) Review [...] lips 08/03/2017 None Full Exam - General 1995 Ears/Nose/Throat [...] developed 11/04/2011 None Full Exam - General 1995 [...] mastoids 11/04/2011 None Full Exam - General 1994 Ears/Nose/Throat external nose Overall: benign appearance 11/04/2011 [...] Formatting Model/CDA Sections, Assigned to/Kimberley Fagan CPT-4: 89212Sqhknvw 07/06/2018 ADMIN INFLUENZA VIRU S VAC CPT-4: G0008 07/05/2017 FLU VACC PRSV FREE I NC ANTIG CPT-4: 72412 07/05/2017 THER/PROPH/DIAG INJ SC/IM CPT-4: 34567 11/05/2016 TRIAMCINOLONE ACET I [place] NOS CPT-4: J3301 11/05/2016 TRIAMCINOLONE ACET I [place] NOS CPT-4: J3301 09/16/2014 DRAIN/INJECT JOINT/B URSA CPT-4: 48964 09/16/2014 KETOROLAC TROMETHAMI NE INJ CPT-4: J1885 03/20/2014 URINALYSIS NONAUTO W /O SCOPE CPT-4: 92170 12/10/2013 PRESCRIP TRANSMIT A ERX SY CPT-4: G8553 09/17/2013 PRESCRIP TRANSMIT A ERX SY CPT-4: G8553 06/08/2012 TRIAMCINOLONE ACET I [place] NOS CPT-4: J3301 03/16/2012 INJ TRIGGER POINT 1/ 2 MUSCL CPT-4: 22541 03/16/2012 PRESCRIP TRANSMIT A ERX SY CPT-4: G8553 03/16/2012 ADMIN INFLUENZA VIRU S VAC CPT-4: G0008 07/13/2011 FLULAVAL VACC, 3 YRS & >, IM CPT-4: Q2036 07/13/2011 ADMIN PNEUMOCOCCAL V ACCINE SNOMED CT: 64607791 CPT-4: G0009 07/13/2011 Pneumococcal Polysac charide Vaccine, 23-Valent, Ad CPT-4: 02880 07/13/2011 Vital Signs Date Vital 09/18/2018 Blood Pressure 1: 126/70 Code: 8480-6 BMI: 36.3 Code: 72661-0 Heart Rate 1: 58 bpm Height: 5'3" SpO2: 98% Weight: 205 lbs 08/31/2018 Blood Pressure 1: 148/76 Code: 8480-6 BMI: 37.0 Code: 90319-4 Heart Rate 1: 60 bpm Height: 5'3" SpO2: 98% Weight: 209 lbs 08/14/2018 Blood Pressure 1: 140/80 Code: 8480-6 BMI: 37.2 Code: 18593-4 Heart Rate 1: 76 bpm Height: 5'3" SpO2: 96% Weight: 210 lbs 05/22/2018 Blood Pressure 1: 150/62 Code: 8480-6 BMI: 36.7 Code: 43855-0 Heart Rate 1: 74 bpm Height: 5'3" SpO2: 98% Weight: 207 lbs 11/18/2017 Blood Pressure 1: 122/66 Code: 8480-6 BMI: 35.8 Code: 47468-7 Heart Rate 1: 59 bpm Height: 5'3" SpO2: 97% Weight: 202 lbs 08/03/2017 Blood Pressure 1: 122/60 Code: 8480-6 BMI: 36.0 Code: 37069-1 Heart Rate 1: 60 bpm Height: 5'3" SpO2: 97% Weight: 203 lbs 07/05/2017 Blood Pressure 1: 140/76 Code: 8480-6 BMI: 36.0 Code: 31126-1 Heart Rate 1: 58 bpm Height: 5'3" SpO2: 98% Weight: 203 lbs 12/02/2016 Blood Pressure 1: 122/70 Code: 8480-6 BMI: 34.4 Code: 12435-0 Heart Rate 1: 66 bpm Height: 5'3" SpO2: 99% Temperature: 36.4 (C ) / 97.5 (F) Weight: 194 lbs 11/22/2016 Blood Pressure 1: 102/60 Code: 8480-6 BMI: 34.2 Code: 24323-9 Heart Rate 1: 110 bpm Height: 5'3" SpO2: 98% Temperature: 36.7 (C ) / 98.0 (F) Weight: 193 lbs 11/05/2016 Blood Pressure 1: 140/62 Code: 8480-6 BMI: 36.1 Code: 02083-4 Heart Rate 1: 102 bpm Height: 5'3" SpO2: 97% Temperature: 37.1 (C ) / 98.7 (F) Weight: 204 lbs 07/22/2016 Blood Pressure 1: 158/80 Code: 8480-6 Blood Pressure 1: 160/76 Code: 8480-6 BMI: 36.8 Code: 29447-4 Heart Rate 1: 56 bpm Height: 5'3" SpO2: 98% Weight: 208 lbs 05/19/2016 Blood Pressure 1: 150/78 Code: 8480-6 Blood Pressure 1: 122/69 Code: 8480-6 BMI: 37.0 Code: 90252-3 Heart Rate 1: 61 bpm Height: 5'3" SpO2: 98% Weight: 209 lbs 02/13/2016 Blood Pressure 1: 140/76 Code: 8480-6 BMI: 36.8 Code: 37806-1 Heart Rate 1: 64 bpm Height: 5'3" SpO2: 97% Weight: 208 lbs 01/13/2016 Blood Pressure 1: 170/70 Code: 8480-6 BMI: 36.8 Code: 91948-1 Heart Rate 1: 65 bpm Height: 5'3" SpO2: 95% Weight: 208 lbs 01/02/2016 Blood Pressure 1: 150/88 Code: 8480-6 BMI: 36.8 Code: 98092-2 Heart Rate 1: 61 bpm Height: 5'3" SpO2: 98% Weight: 208 lbs 12/18/2015 Blood Pressure 1: 148/90 Code: 8480-6 BMI: 37.6 Code: 69084-5 Heart Rate 1: 64 bpm Height: 5'3" SpO2: 96% Weight: 212 lbs 09/08/2015 Blood Pressure 1: 130/88 Code: 8480-6 BMI: 37.0 Code: 14324-9 Heart Rate 1: 62 bpm Height: 5'3" SpO2: 97% Weight: 209 lbs 07/09/2015 Blood Pressure 1: 142/82 Code: 8480-6 BMI: 36.4 Code: 37771-7 Heart Rate 1: 66 bpm Height: 5'3" SpO2: 97% Weight: 205 lbs 5 oz 01/16/2015 Blood Pressure 1: 122/80 Code: 8480-6 BMI: 35.6 Code: 63939-8 Heart Rate 1: 67 bpm Height: 5'3" SpO2: 98% Weight: 201 lbs 01/03/2015 Blood Pressure 1: 122/70 Code: 8480-6 BMI: 35.6 Code: 10746-5 Heart Rate 1: 61 bpm Height: 5'3" Respiratory Rate: 16 bpm SpO2: 98% Weight: 201 lbs 09/16/2014 Blood Pressure 1: 132/78 Code: 8480-6 BMI: 34.9 Code: 44360-7 Heart Rate 1: 56 bpm Height: 5'3" Weight: 197 lbs 08/15/2014 Blood Pressure 1: 152/80 Code: 8480-6 Blood Pressure 2: 160/82 Code: 8480-6 BMI: 34.0 Code: 02601-6 Heart Rate 1: 75 bpm Height: 5'3" Weight: 192 lbs 06/12/2014 Blood Pressure 1: 136/82 Code: 8480-6 BMI: 34.9 Code: 47989-1 Heart Rate 1: 58 bpm Height: 5'3" SpO2: 96% Weight: 197 lbs 03/20/2014 Blood Pressure 1: 140/72 Code: 8480-6 BMI: 34.9 Code: 60360-1 Heart Rate 1: 60 bpm Height: 5'3" Weight: 197 lbs 12/10/2013 Blood Pressure 1: 132/78 Code: 8480-6 BMI: 35.1 Code: 02132-4 Heart Rate 1: 68 bpm Height: 5'3" Weight: 198 lbs 09/17/2013 Blood Pressure 1: 128/78 Code: 8480-6 BMI: 34.9 Code: 16537-5 Heart Rate 1: 68 bpm Height: 5'3" Weight: 197 lbs 05/21/2013 Blood Pressure 1: 128/82 Code: 8480-6 BMI: 35.6 Code: 92715-9 Heart Rate 1: 80 bpm Height: 5'3" Weight: 201 lbs 01/17/2013 Blood Pressure 1: 138/72 Code: 8480-6 BMI: 36.7 Code: 94812-9 Heart Rate 1: 60 bpm Height: 5'3" [...] 1: 140/78 Code: 8480-6 BMI: 40.0 Code: 82500-5 Heart Rate 1: 64 bpm Height: 5'3" Respiratory Rate: 16 bpm Weight: 226 lbs 11/04/2011 Blood Pressure 1: 136/76 Code: 8480-6 Heart Rate 1: 68 bpm Respiratory Rate: 16 bpm Weight: 226 lbs 07/13/2011 Blood Pressure 1: 142/80 Code: 8480-6 BMI: 40.0 Code: 51937-7 Heart Rate 1: 60 bpm Height: 5'4" [...] ago 03/16/2012 None shoulder pain [facility] [place] 03/16/2012 None shoulder pain Quality [facility] [place] [...] Encounters Encounter Performer Loca tion Codes Date ( [id number] EST. 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 P ATIENT, LEVEL III Diagnosis: Nasal congestion[ICD10: R09.81] Diagnosis: Other allergic rhinitis[ICD10: J30.89] [facility] CPT-4: 31595 08/31/2018 [id number]) [id number] EST. P ATIENT, LEVEL III Diagnosis: Acute recurrent maxillary sinusitis[ICD10: J01.01] [facility] CPT-4: 11894 08/14/2018 [id number] EST. PATIENT, LEVEL III Diagnosis: Pain in right shoulder[ICD10: M25.511] Diagnosis: Pain in right arm[ICD10: M79.601] Willow Manuel MD, [facility] CPT-4: 82733 05/22/2018 ([id number]) [id number] EST. P ATIENT, LEVEL IV Diagnosis: Essential (primary) hypertension[ICD10: I10] Diagnosis: Postpolio syndrome[ICD10: G14] Diagnosis: Gastro-esophageal reflux disease without esophagitis[ICD10: K21.9] Giuliana Manuel MD, [facility] CPT-4: 18421 11/18/2017 89300 EST. PATIENT, LEVEL III Diagnosis: Other specified intestinal infections[ICD10: A08.8] Willow Manuel MD, [facility] CPT-4: 68032 08/03/2017 ([id number]) 28388 EST. 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 P ATIENT, LEVEL III Diagnosis: Essential (primary) hypertension[ICD10: I10] Юлия Manuel MD, [facility] CPT-4: 51158 12/02/2016 ([id number]) 60275 EST. P ATIENT, LEVEL III Diagnosis: Essential (primary) hypertension[ICD10: I10] Diagnosis: Allergic rhinitis due to pollen[ICD10: J30.1] Giuliana Manuel MD [facility] CPT-4: 86823 11/22/2016 66987 EST. PATIENT, LEVEL III Diagnosis: Acute laryngopharyngitis[ICD10: J06.0] Diagnosis: Influenza due to unidentified influenza virus with other respiratory manifestations[ICD10: J11.1] Willow Manuel MD, [facility] CPT-4: 76319 11/05/2016 ([id number]) 39789 EST. P ATIENT, LEVEL III Diagnosis: Gastro-esophageal reflux disease without esophagitis[ICD10: K21.9] Diagnosis: Essential (primary) hypertension[ICD10: I10] Giuliana Manuel MD, [facility] CPT-4: 94347 07/22/2016 ([id number]) 77346 EST. P ATIENT, LEVEL IV Diagnosis: Essential (primary) hypertension[ICD10: I10] Diagnosis: Abdominal distension (gaseous)[ICD10: R14.0] Giuliana Manuel MD, [facility] CPT-4: 70578 05/19/2016 ([id number]) 12190 EST. P ATIENT, LEVEL III Diagnosis: Essential (primary) hypertension[ICD10: I10] Юлия Manuel MD, [facility] CPT-4: 62593 02/13/2016 ([id number]) 94098 EST. P ATIENT, LEVEL III Diagnosis: Essential (primary) hypertension[ICD10: I10] Юлия Manuel MD, [facility] CPT-4: 78226 01/13/2016 45683 EST. PATIENT, LEVEL IV Diagnosis: Essential (primary) hypertension[ICD10: I10] Diagnosis: Body mass index (BMI) 36.0-36.9, adult[ICD10: Z68.36] Willow Manuel MD, [facility] CPT-4: 90656 01/02/2016 ([id number]) 52585 EST. P ATIENT, LEVEL III Diagnosis: Essential (primary) hypertension[ICD10: I10] Юлия Manuel MD, [facility] CPT-4: 28284 12/18/2015 ([id number]) 52243 EST. P ATIENT, LEVEL IV Diagnosis: Essential (primary) hypertension[ICD10: I10] Diagnosis: Benign paroxysmal vertigo, bilateral[ICD10: H81.13] Diagnosis: Radiculopathy, cervical region[ICD10: M54.12] Giuliana Manuel MD, [facility] CPT-4: 59131 09/08/2015 ([id number]) 56540 EST. P ATIENT, LEVEL IV Diagnosis: Other specified nonscarring hair loss[ICD10: L65.8] Diagnosis: Myositis, unspecified[ICD10: M60.9] Diagnosis: Psoriasis, unspecified[ICD10: L40.9] Diagnosis: Essential (primary) hypertension[ICD10: I10] Giuliana Manuel MD, [facility] CPT-4: 64856 07/09/2015 ([id number]) 45220 EST. P ATIENT, LEVEL III Diagnosis: ESSENTIAL HYPERTENSION[ICD9: 401.9] Giuliana Manuel MD, [facility] CPT- 4: 25690 01/16/2015 ([id number]) 38752 EST. P ATIENT, LEVEL III Diagnosis: Shoulder pain[ICD9: 719.41] Diagnosis: ESSENTIAL HYPERTENSION[ICD9: 401.9] Diagnosis: PALPITATIONS[ICD9: 785.1] Giuliana Manuel MD, [facility] CPT-4: 01929 01/03/2015 ([id number]) 94654 EST. P ATIENT, LEVEL III Diagnosis: Sacroiliitis[ICD9: 720.2] Diagnosis: Back pain[ICD9: 724.5] Diagnosis: ESSENTIAL HYPERTENSION[ICD9: 401.9] Giuliana Manuel MD, [facility] CPT- 4: 36768 09/16/2014 ([id number]) 98603 EST. P ATIENT, LEVEL IV Diagnosis: ESSENTIAL HYPERTENSION[ICD9: 401.9] Diagnosis: Arrhythmia[ICD9: 427.9] Diagnosis: Nausea[ICD9: 787.02] Giuliana Manuel MD, [facility] CPT-4: 81657 08/15/2014 ([id number]) 27111 EST. P ATIENT, LEVEL IV Diagnosis: ESSENTIAL HYPERTENSION[ICD9: 401.9] Diagnosis: Back pain[ICD9: 724.5] Diagnosis: Allergic reaction[ICD9: 995.3] Giuliana Manuel MD, [facility] CPT-4: 80946 06/12/2014 ([id number]) 46086 EST. P ATIENT, LEVEL III Diagnosis: Thoracic back pain[ICD9: 724.1] Diagnosis: MYALGIA AND MYOSITIS[ICD9: 729.1] Giuliana Manuel MD, [facility] CPT-4: 75493 03/20/2014 ([id number]) 29100 EST. P ATIENT, LEVEL IV Diagnosis: HYPERLIPIDEMIA[ICD9: 272.4] Diagnosis: ESSENTIAL HYPERTENSION[SNOMED: 32728806] Diagnosis: ABDOM PAIN NOS SITE[ICD9: 789.00] Giuliana Manuel MD, [facility] CPT-4: 41272 12/10/2013 ([id number]) 16459 EST. P ATIENT, LEVEL IV Diagnosis: ESSENTIAL HYPERTENSION[SNOMED: 74965196] Diagnosis: HYPERLIPIDEMIA[ICD9: 272.4] Giuliana Manuel MD, [facility] CPT-4: 28357 09/17/2013 ([id number]) 25439 EST. P ATIENT, LEVEL IV Diagnosis: ESSENTIAL HYPERTENSION[SNOMED: 90124381] Diagnosis: OBESITY[ICD9: 278.00] Diagnosis: Back pain[ICD9: 724.5] Giuliana Manuel MD, [facility] CPT-4: 30829 05/21/2013 ([id number]) 77954 EST. P ATIENT, LEVEL IV Diagnosis: ESSENTIAL HYPERTENSION[SNOMED: 25055732] Diagnosis: HYPERLIPIDEMIA[ICD9: 272.4] Diagnosis: Abdominal pain[ICD9: 789.00] Diagnosis: BENIGN PAROXYSMAL VERTIGO[ICD9: 386.11] Giuliana Manuel MD, [facility] CPT-4: 87236 01/17/2013 ([id number]) 97648 EST. P ATIENT, LEVEL IV Diagnosis: ESSENTIAL HYPERTENSION[SNOMED: 50708640] Diagnosis: BENIGN PAROXYSMAL VERTIGO[ICD9: 386.11] Diagnosis: Hair loss[ICD9: 704.00] Diagnosis: Vitamin d deficiency[ICD9: 268.9] Diagnosis: Bleeding from the nose[ICD9: 784.7] Giuliana Manuel MD, [facility] CPT- 4: 71029 09/20/2012 12271 EST. PATIENT, LEVEL IV Diagnosis: BPPV (benign paroxysmal positional vertigo)[ICD9: 386.11] Diagnosis: HYPERLIPIDEMIA[ICD9: 272.4] Diagnosis: ESSENTIAL HYPERTENSION[SNOMED: 10618635] Giuliana Manuel MD, [facility] CPT-4: 48635 06/08/2012 ([id number]) 33514 EST. P ATIENT, LEVEL IV Diagnosis: BPPV (benign paroxysmal positional vertigo)[ICD9: 386.11] Diagnosis: Diverticulitis[ICD9: 562.11] Diagnosis: Abdominal pain[ICD9: 789.00] Giuliana Manuel MD, [facility] CPT-4: 50561 04/10/2012 ([id number]) 67185 EST. P ATIENT, LEVEL III Diagnosis: Neck pain[ICD9: 723.1] Diagnosis: Acute upper back pain[ICD9: 724.1] Giuliana Manuel MD, [facility] CPT- 4: 52617 03/16/2012 ([id number]) 54862 EST. P ATIENT, LEVEL IV Diagnosis: HYPERLIPIDEMIA[ICD9: 272.4] Diagnosis: ESSENTIAL HYPERTENSION[SNOMED: 03316822] Diagnosis: Constipation - functional[ICD9: 564.09] Giuliana Manuel MD, [facility] CPT-4: 70237 02/03/2012 ([id number]) 51764 EST. P ATIENT, LEVEL IV Diagnosis: HYPERLIPIDEMIA[ICD9: 272.4] Diagnosis: VITAMIN DEFICIENCY[ICD9: 269.2] Diagnosis: ESSENTIAL HYPERTENSION[SNOMED: 15271346] Giuliana Manuel MD, [facility] CPT-4: 22500 11/04/2011 39722 EST. 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 09/18/2018 Patient Education: Patient Medication Summary Completed [...] allergy spray. 08/31/2018 Appointment: Юлия Rojas [phone] (15 min) Moderate 08/31/2018 Patient Education: Patient [...] improve. 05/22/2018 Appointment: Willow Garcia [phone] (15 min) Moderate 05/22/2018 Patient Education: Patient [...] improving. 11/18/2017 Appointment: Giuliana Manuel WPtel: [phone] [facility] (15 min) Moderate 11/18/2017 Patient Education: Patient Medication Summary Completed 11/18/2017 Appointment: Giuliana Manuel WPtel: [phone] [facility] (15 min) Moderate 11/07/2017 Visit Plan: Diarrhea [...] not improved. 08/03/2017 Appointment: Willow Garcia WPtel: [phone] [facility] (30 min) Complex 08/03/2017 Patient Education: Patient [...] daily. 07/05/2017 Appointment: Giuliana Manuel WPtel: [phone] [facility] (15 min) Moderate 07/05/2017 Patient Education: Patient Medication Summary Completed 07/05/2017 Patient Education: Obesity Completed 07/05/2017 Appointment: Giuliana Manuel WPtel: [phone] [facility] [place] (15 min) Moderate 06/27/2017 Appointment: Giuliana Manuel WPtel: [phone] [facility] [place] (15 min) Moderate 06/21/2017 Appointment: Юлия Rojas WPtel: [phone] [phone] [place] (30 min) Complex 12/23/2016 Visit Plan: [...] RESTART HCTZ 12/02/2016 Appointment: Юлия Rojas WPtel: [phone] [place] (30 min) Complex 12/02/2016 Patient Education: [...] days 11/22/2016 Appointment: Giuliana Manuel WPtel: [phone] [facility] (15 min) Moderate 11/22/2016 Patient Education: Patient Medication Summary Completed 11/22/2016 Patient Education: Obesity Completed 11/22/2016 Visit Plan: Influenza - pt started on tamiflu - pt to start on anti-inflammatories, tylenol and monitor symptoms. Pt to call if not improving. Pt to alert any close contacts as to illness. 11/05/2016 Appointment: Willow Garcia WPtel: [phone] [facility] (30 min) Complex 11/05/2016 Patient Education: Patient [...] carafate 07/22/2016 Appointment: [phone] ([facility] min) Moderate 07/22/2016 Patient Education: Patient Medication Summary Completed 07/22/2016 Patient Education: Obesity Completed 07/22/2016 Care Plan: Referral Order SNOMED-CT : [id number] Pending 07/22/2016 Visit Plan: Hypertension - well [...] Obesity Completed 05/19/2016 Appointment: Giuliana Manuel WPtel: [facility] (15 min) Moderate 05/17/2016 Visit Plan: Hypertension - well con trolled - continue with current medications, continue with no added salt diet. Pt has been encouraged to exercise daily. The pt has been advised to call the office if there are any acute concerns about change in blood pressure readings at home. 02/13/2016 Appointment: Юлия Rojas WPtel: [phone] [place] (30 min) Complex 02/13/2016 Patient Education: [...] Obesity Completed 12/18/2015 Appointment: Giuliana Manuel WPtel: [facility] (15 min) Moderate 12/08/2015 [facility] Referral Completed 10/17/2015 Visit Plan: Hypertension - [...] stress test. 09/08/2015 Appointment: Giuliana Manuel WPtel: [address] [place], [place] [phone] (15 min) Moderate 09/08/2015 Patient Education: Patient Medication Summary Completed 09/08/2015 Patient Education: .Cervicalgia Neck Pain Completed 09/08/2015 Care Plan: Referral Order SNOMED-CT : [id number] Ordered 09/08/2015 Visit Plan: Hypertension - uncontro [...] checked today. 07/09/2015 Appointment: Giuliana Manuel WPtel: [address] [place], [place] [phone] (15 min) Moderate 07/09/2015 Patient Education: Patient Medication Summary Completed 07/09/2015 Appointment: Giuliana Manuel WPtel: [address] [place], [place] [phone] (15 min) Moderate 07/07/2015 Appointment: Giuliana Manuel WPtel: [address] [place], [place] [phone] [place] Follow up 03/17/2015 Visit Plan: Hypertension - well con trolled - continue with current medications, continue with no added salt diet. Pt has been encouraged to exercise daily. The pt has been advised to call the office if there are any acute concerns about change in blood pressure readings at home. Palpitations resolved. 01/16/2015 Appointment: Giuliana Manuel WPtel: [phone] [facility] Other 01/16/2015 Patient Education: Patient Medication Summary [...] pain symptoms. 01/03/2015 Appointment: Giuliana Manuel WPtel: [phone] [facility] Follow up 01/03/2015 Patient Education: Patient Medication [...] Hypertension Completed 09/16/2014 Appointment: Giuliana Manuel WPtel: [phone] [facility] Follow up 09/09/2014 Visit Plan: Hypertension - [...] symptoms worsen. 08/15/2014 Appointment: Giuliana Manuel WPtel: [address] [place], [place] [phone] Sick 08/15/2014 Patient Education: Patient Medication Summary Completed 08/15/2014 Patient Education: Hypertension Completed 08/15/2014 Care Plan: Referral Order SNOMED-CT : [id number] Ordered 08/15/2014 Appointment: Giuliana Manuel WPtel: [address] [place] [address] Follow up 06/18/2014 Visit Plan: [facility] Rash - reaction [...] at home. 06/12/2014 Appointment: Giuliana Manuel WPtel: [facility]5 [facility] Sick 06/12/2014 Patient Education: Patient Medication Summary Completed 06/12/2014 Patient Education: Hypertension Completed 06/12/2014 Care Plan: Referral Order SNOMED-CT : [id number] Ordered 06/12/2014 Visit Plan: Hypertension - well [...] xrays. 03/20/2014 Appointment: Giul[facility] Manuel [phone] Follow [facility] 03/20/2014 Patient Education: Patient [...] UTI 12/10/2013 Appointment: Giul[facility] Manuel [phone] Follow up 12/10/2013 Patient Education: Patient [...] weekly. 09/17/2013 Appointment: Giuliana Manuel [facility]el: [phone] [place] Follow up 09/17/2013 Patient Education: [...] muscle rub. 05/21/2013 Appointment: Giuliana Manuel WPtel: [phone] [facility] Follow up 05/21/2013 Patient Education: Patient Medication [...] the vertigo. 01/17/2013 Appointment: Giuliana Manuel [facility]: [phone] Follow up 01/17/2013 Patient Education: Patient [...] if needed. 09/20/2012 Appointment: Giuliana Manuel WPtel: [address] [place], [place] [phone] Follow up 09/20/2012 Patient Education: Patient Medication [...] intolerance begin. 06/08/2012 Appointment: Giuliana Manuel WPtel: [address] [place], [place] [phone] Follow up 06/08/2012 Patient Education: Patient Medication [...] seeds, nuts, or popcorn. 04/10/2012 Appointment: Giuliana Manuel: [phone] [facility] Other 04/10/2012 Patient Education: Patient Medication [...] Tuesday. 03/16/2012 Appointment: Giuliana Manuel WPtel: [phone] [facility] Other 03/16/2012 Patient Education: Patient Medication [...] not improved on this regimen. 02/03/2012 Appointment: Mar Giuliana WPtel: [phone] [facility]66[facility] Other 02/03/2012 Patient Education: Patient Medication Summary [...] a week. 11/04/2011 Appointment: Giuliana Manuel WPtel: [facility]5 [facility] Follow up 11/04/2011 Patient Education: Patient Medication [...] will monitor her intake. Allergies - [facility] for the headaches to see ifnallergy medication helps to prevent the headaches flu shot pneumonia shot 07/13/2011 Appointment: Giuliana Manuel WPtel: [phone] Other 07/13/2011 Patient Education: Patient Medication Summary Completed 07/13/2011 Patient Education: .Amazing charts [employer] tic meal planning guide Completed 07/13/2011 Referral: Jared Lafleur [address] [facility]66[facility] Referral Appointment Requested Referral: Duarte Catalan Referral Appointment Requested Referral: Dr. Willams WPtel: [address] [place] [address] Referral Initiated Referral: [facility] WPtel: [phone] Referral Initiated Instructions Comment Add a losartan [...] . Back pain - referr al to [facility]. Rash - reaction to [...]
--- OUTSIDE RECORDS SUMMARY | 2020-01-21 14:24 | XMS REPORT | CCD ---
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 09/08/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 Marital status Unknown M arried 07/13/[address]: 244743248 Nonsmoker 07/13/[address]: 229989584 Never drinks alcohol 07/13/2011 Allergies, Adverse Reactions, Alerts Substance Reaction Codes Entered Date Inactivated Date Status Soy Unknown 07/13/2011 No Inactive Date Active Cardizem RxNorm: 731740 05/19/2016 No Inactive Date Active Metoprolol Succinate anaphylaxis, rash, RxNorm: 6918 02/13/2016 No Inactive Date Active Past Medical History Illness Codes Condition Status Onset Date Resolved Date Nasal congestion ICD-9: 478.19 ICD-10: R09.81 Active [...] ICD-9: 530.81 ICD-10: K21.9 Active 07/21/2016 Unknown 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 Active 07/05/2017 Unknown Other specified inte stinal infections ICD-9: [...] pain ICD-9: 789.00 Active 07/13/2011 Unknown 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 Active 07/13/2011 Unknown OBESITY ICD-9: 278.00 Active 07/13/2011 Unknow n Postprandial bloating ICD-9: 787.3 Active 07/13/2011 Unknown Seasonal allergies ICD- 9: 477.9 Active 07/13/2011 Unknown VAC STREP PNEUMONIAE -FLU ICD-9: V06.6 Active 07/03 Unknown Problems Condition Codes Effectiv e Dates Condition Status Nasal congestion ICD-9: 478.19 ICD-10: R09.81 08/31/2018 [...] esophagitis ICD-9: 530.81 ICD-10: K21.9 07/21/2016 Active 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 07/05/2017 Active Other specified inte stinal infections ICD-9: [...] Abdominal pain ICD-9: 789.00 07/13/2011 Active 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 07/13/2011 Active OBESITY ICD-9: 278.00 07/13/2011 Active Postprandial bloating ICD-9: 787.3 07/13/2011 Active Seasonal allergies ICD- 9: 477.9 07/13/2011 Active VAC STREP PNEUMONIAE -FLU ICD-9: V06.6 07/13/2011 Active Medications Medication Codes Instruc tions Start Date Stop Date Sta tus Fill Instructions Kenalog 40 mg/mL karl pension for injection RxNorm: 2595721 1 Milliliter(s) Inj 08/31/2018 08/31/2018 In active clonidine HCl 0.1 mg tablet RxNorm: 089345 1/2 Tablet(s) PO BID 08/16/2018 08/10/2019 Active amoxicillin 500 mg t ablet RxNorm: 251263 1 Tablet(s) PO TID 08/14/2018 08/20/2018 Inactive losartan 25 mg tablet RxNorm: 726667 1 Tablet(s) PO BID 05/02/2018 04/26/2019 Active losartan 25 mg tablet RxNorm: 312781 1 Tablet(s) PO BID 05/02/2018 05/01/2018 Inactive losartan 25 mg tablet RxNorm: 411529 1 Tablet(s) PO BID 01/30/2018 05/01/2018 Inactive Vitamin D 2,000 unit capsule RxNorm: 1 Capsule(s) PO daily 11/18/2017 No Stop Date Active doxazosin 1 mg tablet RxNorm: 374342 1 Tablet(s) PO daily at midnight 11/18/2017 11/12/2018 Ac tive midnight hydrochlorothiazide 12.5 mg tablet RxNorm: 119519 1 Tablet(s) PO daily 11/18/2017 11/12/2018 Ac tive atenolol 25 mg tablet RxNorm: 657002 1 Tablet(s) PO daily 11/18/2017 11/12/2018 Active famotidine 40 mg tablet RxNorm: 400549 1 Tablet(s) PO daily TAKE 1 TABLET BY [facility] EVERY MORNING 11/18/2017 11/12/2018 Active - Ref: [id number] atenolol 25 mg tablet RxNorm: 457130 1 Tablet(s) PO BID managed by Dr Lafleur 11/18/2017 11/17/2017 In active clonidine HCl 0.1 mg tablet RxNorm: 552019 1/2 Tablet(s) PO BID 11/18/2017 08/15/2018 Inactive losartan 25 mg tablet RxNorm: 844175 1 Tablet(s) PO BID 11/18/2017 01/29/2018 Inactive hydrochlorothiazide 12.5 mg tablet RxNorm: 934509 1 Tablet(s) PO daily 10/28/2017 11/17/2017 In active famotidine 40 mg tablet RxNorm: 184274 TAKE 1 TABLET BY MOUTH EVERY MORNING 10/04/2017 11/17/2017 In active - Ref: [id number] clonidine HCl 0.1 mg tablet RxNorm: 762814 1/2 Tablet(s) PO BID 07/05/2017 11/17/2017 Inactive doxazosin 1 mg tablet RxNorm: 565529 1 Tablet(s) PO daily at midnight 07/05/2017 11/17/2017 In active midnight doxazosin 1 mg tablet RxNorm: 137698 1 Tablet(s) PO BID 12/02/2016 2017 Inactive midnight prednisone 20 mg tablet RxNorm: 830760 3 Tablet(s) PO daily 11/22/2016 11/26/2016 Inactive Tessalon Perles 100 mg capsule RxNorm: 981457 1 -2 Capsule(s) PO TI D as needed cough 11/19/2016 No Stop Date Active Zithromax Z-Jeff 250 mg tablet RxNorm: 334626 1 Tablet(s) PO UD 11/19/2016 12/01/2016 Inactive z pack as directed Tamiflu 75 mg capsule RxNorm: 878677 1 Capsule(s) PO BID 11/05/2016 11/09/2016 Inactive Kenalog 40 mg/mL karl pension for injection RxNorm: 8636699 Milliliter(s) Inj 11/05/2016 11/05/2016 In active Tessalon Perles 100 mg capsule RxNorm: 334891 1 -2 Capsule(s) PO TI D as needed cough 11/04/2016 11/18/2016 Inactive famotidine 40 mg tablet RxNorm: 242500 1 Tablet(s) PO QAM 10/25/2016 10/03/2017 Inactive famotidine 40 mg tablet RxNorm: 775172 1 Tablet(s) PO QAM 08/02/2016 10/24/2016 Inactive Carafate 1 gram tablet RxNorm: 239576 1 Tablet(s) PO TID DISSOLVE THE PILL IN 10ML OF WATER 07/22/2016 10/19/2016 Inactive clonidine HCl 0.1 mg tablet RxNorm: 009467 1 Tablet(s) PO BID an d 1 tablet as needed 07/22/2016 12/01/2016 Inactive aspirin 81 mg tablet ,delayed release RxNorm: 032810 1 Tablet(s) PO QHS 05/19/2016 No Stop Date Active Cinnamon 1000 mg RxNorm: 1 PO daily 05/19/2016 No Stop Date Active losartan 25 mg tablet RxNorm: 230917 1 Tablet(s) PO BID 05/19/2016 11/17/2017 Inactive atenolol 25 mg tablet RxNorm: 683574 1.5 Tablet(s) PO BID 02/13/2016 07/21/2016 Inactive losartan 25 mg tablet RxNorm: 798030 2 Tablet(s) PO BID 01/13/2016 05/11/2016 Inactive Cardizem CD 240 mg c apsule,extended release RxNorm: 180868 1 Capsule(s) PO daily 01/13/2016 02/12/2016 In active losartan 100 mg tablet RxNorm: 364540 1/2 Tablet(s) PO BID 01/08/2016 01/12/2016 Inactive losartan 25 mg tablet RxNorm: 873417 2 Tablet(s) PO QPM 1 Tablet(s) PO QPM 12/18/2015 01/07/2016 In active atenolol 25 mg tablet RxNorm: 564086 1.5 Tablet(s) PO BID TAKE ONE TABLET BY MOUTH TWICE A DAY 12/18/2015 01/12/2016 Inactive atenolol 25 mg tablet RxNorm: 837745 Tablet(s) TAKE ONE TABLET BY MOUTH TWICE A DAY 11/14/2015 12/17/2015 Inactive losartan 25 mg tablet RxNorm: 820469 Tablet(s) 1 Tablet(s) PO QPM 11/14/2015 12/17/2015 Inactive spironolactone 25 mg tablet RxNorm: 445061 1 Tablet(s) PO daily 11/14/2015 12/14/2015 Inactive atenolol 25 mg tablet RxNorm: 087163 TAKE ONE TABLET BY MOUTH TWICE A DAY 08/07/2015 11/13/2015 In active atenolol 25 mg tablet RxNorm: 059548 1 Tablet(s) PO daily TAKE ONE TABLET BY MOUTH TWICE DAILY 08/06/2015 08/06/2015 Inactive Generic For:TENORMIN 25 MG TABLET 05/05/2015 10:00:22 AM atenolol 25 mg tablet RxNorm: 538403 1 Tablet(s) PO daily TAKE ONE TABLET BY MOUTH TWICE DAILY 08/06/2015 08/05/2015 Inactive Generic For:TENORMIN 25 MG TABLET 05/05/2015 10:00:22 AM betamethasone diprop ionate 0.05 % topical ointment RxNorm: 466351 1 TOP TID as needed rash 07/09/2015 05/18/2016 Inactive betamethasone diprop ionate 0.05 % topical ointment RxNorm: 434363 1 TOP TID as needed rash 07/09/2015 07/08/2015 Inactive spironolactone 25 mg tablet RxNorm: 592256 1 Tablet(s) PO daily 07/09/2015 07/08/2015 Inactive spironolactone 25 mg tablet RxNorm: 665528 1 Tablet(s) PO daily 07/09/2015 11/13/2015 Inactive losartan 25 mg tablet RxNorm: 818140 Tablet(s) 1 Tablet(s) PO QPM 05/27/2015 11/13/2015 Inactive atenolol 25 mg tablet RxNorm: 854482 TAKE ONE TABLET BY MOUTH TWICE DAILY 05/05/2015 08/05/2015 In active Generic For:TENORMIN 25 MG TABLET 05/05 10:00:22 AM hydrochlorothiazide 25 mg tablet RxNorm: 221249 1/2 Tablet(s) PO BID 02/17/2015 07/08/2015 Inactive Generic For:HYDRODIURIL 25 MG TABLET sulfamethoxazole 800 mg-trimethoprim 160 mg tablet RxNorm: 632612 1 Tablet(s) PO BID 01/16/2015 01/25/2015 Inactive losartan 25 mg tablet RxNorm: 010646 1 Tablet(s) PO QPM 12/09/2014 05/26/2015 Inactive Kenalog 40 mg/mL karl pension for injection RxNorm: 5558399 1 Milliliter(s) Inj 09/16/2014 09/16/2014 In active prednisone 20 mg tablet RxNorm: 133682 3 Tablet(s) PO daily 09/16/2014 09/18/2014 Inactive losartan 25 mg tablet RxNorm: 653522 1 Tablet(s) PO QPM 08/15/2014 12/08/2014 Inactive hydrochlorothiazide 25 mg tablet RxNorm: 990030 TAKE 1/2 TABLET BY MO ALH TWICE DAILY 08/13/2014 02/08/2015 Inactive Generic For:HYDRODIURIL 25 MG TABLET atenolol 25 mg tablet RxNorm: 300494 TAKE ONE TABLET BY MOUTH TWICE DAILY 05/07/2014 05/01/2015 In active Generic For:TENORMIN 25 MG TABLET ketorolac 60 mg/2 mL intramuscular solution RxNorm: 932448 2 Milliliter(s) IM 03/20/2014 03/20/2014 In active hydrochlorothiazide 25 mg tablet RxNorm: 932161 Tablet(s) PO TAKE 1/2 TABLET BY MOUTH TWICE DAILY 02/14/2014 08/12/2014 Inactive Generic For:HYDRODIURIL 25 MG TABLET Generic For:HYDRODIURIL 25 MG TABLET 02/14/2014 3:45:03 PM atorvastatin 10 mg t ablet RxNorm: 934435 1 Tablet(s) PO TIW 09/17/2013 03/19/2014 Inactive atorvastatin 10 mg t ablet RxNorm: 374312 tablet oral 09/17/2013 06/04/2015 Inactive hydrochlorothiazide 25 mg tablet RxNorm: 165824 Tablet(s) PO TAKE 1/2 TABLET BY MOUTH TWICE DAILY 08/06/2013 02/13/2014 Inactive Generic For:HYDRODIURIL 25 MG TABLET Generic For:HYDRODIURIL 25 MG TABLET 08/06/2013 1:52:35 PM amoxicillin 500 mg t ablet RxNorm: 635752 2 Tablet(s) PO 2 tabl ets PO 1 hour before dental procedure. 07/26/2013 07/25/2013 Inactive amoxicillin 500 mg t ablet RxNorm: 361779 2 Tablet(s) PO 2 tabl ets PO 1 hour before dental procedure. 07/26/2013 07/26/2013 Inactive methotrexate sodium 2.5 mg tablet RxNorm: 798220 tablet oral 07/13/2013 01/15/2015 Inactive atenolol 25 mg tablet RxNorm: 092071 Tablet(s) PO TAKE ONE TABLET BY MOUTH TW ICE DAILY 05/01/2013 05/06/2014 Inactive Generic For:TENORMIN 25 MG TABLET hydrochlorothiazide 25 mg tablet RxNorm: 275737 Tablet(s) PO TAKE 1/2 TABLET BY MOUTH TWICE DAILY 11/21/2012 08/05/2013 Inactive Generic For:HYDRODIURIL 25 MG TABLET atenolol 25 mg tablet RxNorm: 151689 Tablet(s) PO TAKE ONE TABLET BY MOUTH TW ICE DAILY 10/02/2012 04/30/2013 Inactive Generic For:TENORMIN 25 MG TABLET gemfibrozil 600 mg t ablet RxNorm: 751772 1 Tablet(s) PO BID 06/08/2012 10/08/2012 Inactive meclizine 25 mg tablet RxNorm: 026105 1 Tablet(s) PO Q4 PRN 06/08/2012 09/05/2012 Inactive prednisone 10 mg Tab RxNorm: 189553 2 Tablet(s) PO daily 03/16/2012 03/20/2012 Inactive atorvastatin 10 mg Tab RxNorm: 665473 1 Tablet(s) PO daily 12/21/2011 12/20/2011 Inactive atorvastatin 10 mg Tab RxNorm: 216267 1 Tablet(s) PO daily 12/21/2011 06/08/2012 Inactive methotrexate sodium 2.5 mg Tab RxNorm: 925572 Tablet(s) PO 11/16/2011 06/12/2012 Inactive 3 on tuesday3 on hydrochlorothiazide 25 mg Tab RxNorm: 619120 1/2 Tablet(s) PO BID 11/01/2011 11/24/2012 Inactive hydrochlorothiazide 12.5 mg Cap RxNorm: 671010 Capsule(s) PO 11/01/2011 06/08/2012 Inactive TAKE ONE TABLET BY MOUTH TWICE DAILY;Gen sky For:MICROZIDE 12.5 MG CAPSULE hydrochlorothiazide 25 mg Tab RxNorm: 093554 1/2 Tablet(s) PO BID 11/01/2011 11/24/2012 Inactive hydrochlorothiazide 25 mg tablet RxNorm: 796128 1/2 Tablet(s) PO BID 11/01/2011 10/31/2011 Inactive hydrochlorothiazide 25 mg Tab RxNorm: 948660 1/2 Tablet(s) PO BID 11/01/2011 10/31/2011 Inactive atenolol 25 mg tablet RxNorm: 584071 Tablet(s) PO 10/04/2011 10/01/2012 Inactive TAKE ONE TABLET BY MOUTH TWICE DAILY;Generic For:TENORMIN 25 MG TABLET hydrochlorothiazide 12.5 mg Cap RxNorm: 648199 1 Capsule(s) PO BID 09/13/2011 10/31/2011 Inactive Influenza Virus Vacc ine 0.5 mL RxNorm: IM 07/13/2011 07/13/2011 Inactive Pneumovax 23 25 mcg/ 0.5 mL Injection RxNorm: 722624 Milliliter(s) Inj 07/13/2011 07/13/2011 In active Phenergan VC-Codeine 6.25 mg-5 mg-10 mg/5 mL syrup RxNorm: 621721 5 Milliliter(s) PO Q6 as needed No Start Date Active [place] 3 Cap RxNorm: 1 Capsule(s) PO BID No Start Date Active Cinnamon 1000 mg RxNorm: 2 PO daily No Start Date Active atenolol 25 mg Tab RxNorm: 398222 1 Tablet(s) PO BID No Start Date 10/03/2011 Inactive niacin ER 500 mg Cap RxNorm: 065291 1 Capsule(s) PO daily No Start Date 06/08/2012 Inactive gemfibrozil 600 mg t ablet RxNorm: 165751 1 Tablet(s) PO BID No Start Date 06/07/2012 Inactive Vitamin C 500 mg Tab RxNorm: 203570 1 Tablet(s) PO daily No Start Date 07/21/2016 Inactive Zithromax Z-Jeff 250 mg tablet RxNorm: 310881 1 Tablet(s) PO UD No Start Date 11/18/2016 Inactive z pack as directed doxazosin 1 mg tablet RxNorm: 893384 1 Tablet(s) PO BID No Start Date 12/01/2016 Inactive vitamin E (dl, aceta te) 400 unit Cap RxNorm: 849854 1 Capsule(s) PO daily No Start Date 07/21/2016 Inactive famotidine 40 mg tablet RxNorm: 600256 1 Tablet(s) PO QAM No Start Date 08/01/2016 Inactive hydrochlorothiazide 25 mg Tab RxNorm: 654709 1/2 Tablet(s) PO BID No Start Date 09/12/2011 Inactive Tessalon Perles 100 mg capsule RxNorm: 099903 1 -2 Capsule(s) PO TI D as needed cough No Start Date 11/03/2016 Inactive aspirin 81 mg Tab, D elayed Release RxNorm: 067542 1 Tablet(s) PO every other day No Start Date 05/18/2016 Inactive Cinnamon 1000 mg RxNorm: 2 PO daily No Start Date 05/18/2016 Inactive clonidine HCl 0.1 mg tablet RxNorm: 667876 1 Tablet(s) PO QHS an d 1 Tablet as needed No Start Date 07/21/2016 Inactive niacin 500 mg tablet RxNorm: 734854 1 Tablet(s) PO QHS No Start Date 01/01/2015 Inactive multivitamin Tab RxNorm: 1 Tablet(s) PO daily No Start Date 07/21/2016 Inactive methotrexate sodium 2.5 mg Tab RxNorm: 077794 Tablet(s) PO No Start Date 11/15/2011 Inactive 3 on T-Bio RxNorm: 1 PO daily No Start Date 05/18/2016 Inactive Vitamin D 2,000 unit Cap RxNorm: 1 Capsule(s) PO daily No Start Date 07/21/2016 Inactive hydrochlorothiazide 12.5 mg tablet RxNorm: 367811 1 Tablet(s) PO daily No Start Date 10/27/2017 Inactive Medication Administered Medication Codes Instruc tions Start Date Status Kenalog 40 mg/mL suspension for injection RxNorm: 3222317 1Milliliter 08/31/2018 N o longer Active Kenalog 40 mg/mL suspension for injection RxNorm: 5128274 Milliliter 11/05/2016 No longer Active Kenalog 40 mg/mL suspension for injection RxNorm: 6274659 1Milliliter 09/16/2014 N o longer Active ketorolac 60 mg/2 mL intramuscular solution RxNorm: 228172 2Milliliter 03/20/2014 N o longer Active Influenza Virus Vaccine 0.5 mL RxNorm: 07/13/2011 No longer Active Pneumovax 23 25 mcg/0.5 mL Injection RxNorm: 363656 Milliliter 07/13/2011 No longer Active Immunizations Vaccine Codes Date Status Influenza CVX: 141 07/06 completed Influenza CVX: 141 07/05 completed Influenza CVX: 141 07/22 completed Influenza CVX: 141 09/17 completed Influenza CVX: 141 10/13 completed Influenza CVX: 141 07/13 completed Pneumococcal (Adult) CVX: 33 07/13/2011 completed Assessments Condition Codes Effectiv e Dates Other allergic rhinitis ICD-10: J30. 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 07/13/2011 Postprandial bloating ICD-9: 787.3 07/13/2011 Seasonal allergies ICD-9: 477.9 07/13/2011 VAC STREP PNEUMONIAE-FLU ICD-9: V06.6 07/13/2011 Reason For Visit Reason For Visit Effective Dates Notes nasal discharge 08/31/2018 sinus congestion 08/14/2018 vaccination [...] Ord64 K 3.8 mEq/L 12/06/2016 Comp Metabolic Qdq712 NA 134 mEq/L 12/03/2016 Comp Metabolic Jkd703 K Specimen 3+ Hemolyzed mEq/L 12/04/19 Comp Metabolic Mpu286 CL 106 mEq/L 12/03/2016 Comp Metabolic Qyn634 CO2 20.0 mEq/L 12/03/2016 Comp Metabolic Gjb585 AN ION GAP 16 12/03/2016 Comp Metabolic Kem091 GL UCOSE 93 mg/dL 12/03/2016 Comp Metabolic Grk978 Cr eat 0.8 mg/dL 12/03/2016 Comp Metabolic Cde185 eG FR 73 ml/min/1.73m2 12/03 Comp Metabolic Pdw134 BUN 14 mg/dL 12/03/2016 Comp Metabolic Bny398 B/ C Ratio 17.1 Ratio 12/03/2016 Comp Metabolic Lnt995 CA LCIUM 9.3 mg/dL 12/03/2016 Comp Metabolic Vux271 AL K PHOS 63 U/L 12/03/2016 Comp Metabolic Apy874 T(SGOT) 69 U/L 12/03/2016 Comp Metabolic Euh476 AL T(SGPT) 33 U/L 12/03/2016 Comp Metabolic Zhn107 BI LI T 1.0 mg/dL 12/03/2016 Comp Metabolic Qha433 AL BUMIN 4.3 g/dL 12/03/2016 Comp Metabolic Kuq457 TP RO 6.7 g/dL 12/03/2016 Comp Metabolic Jnn151 GL OB 2.4 g/dL 12/03/2016 Comp Metabolic Bom171 A/ G Ratio 1.7 Ratio 12/03/2016 Comp Metabolic Mdp712 Os mo 268 mOsmo 12/03/2016 Comp Metabolic Vwn808 NA 138 mEq/L 12/18/2015 Comp Metabolic Bvy102 K 4.1 mEq/L 12/18/2015 Comp Metabolic Xyl919 CL 104 mEq/L 12/18/2015 Comp Metabolic Cll549 CO2 22.0 mEq/L 12/18/2015 Comp Metabolic Xyx828 AN ION GAP 16 12/18/2015 Comp Metabolic Mmy734 GL UCOSE 89 mg/dL 12/18/2015 Comp Metabolic Cve346 Cr eat 0.6 mg/dL 12/18/2015 Comp Metabolic Jze055 eG FR 99 ml/min/1.73m2 12/17 Comp Metabolic Fvd969 BUN 15 mg/dL 12/18/2015 Comp Metabolic Dlv153 B/ C Ratio 23.8 Ratio 12/18/2015 Comp Metabolic Pqk522 CA LCIUM 10.4 mg/dL 12/18/2015 Comp Metabolic Mpb758 AL K PHOS 77 U/L 12/18/2015 Comp Metabolic Ode765 T(SGOT) 19 U/L 12/18/2015 Comp Metabolic Vgz391 AL T(SGPT) 17 U/L 12/18/2015 Comp Metabolic Luw083 BI LI T 0.8 mg/dL 12/18/2015 Comp Metabolic Ybz778 AL BUMIN 4.3 g/dL 12/18/2015 Comp Metabolic Unm503 TP RO 6.7 g/dL 12/18/2015 Comp Metabolic Akd608 GL OB 2.4 g/dL 12/18/2015 Comp Metabolic Gsq238 A/ G Ratio 1.7 Ratio 12/18/2015 Comp Metabolic Rpu231 Os mo 276 mOsmo 12/18/2015 Cbc With [...] 29.5 pg 12/18/2015 Cbc With Differential Ord2 [place]% 9.4 % 12/18/2015 Cbc With Differential Ord2 [...] 2.57 K/ul 12/18/2015 Cbc With Differential Ord2 [place] ABS# 0.8 K/ul 12/18/2015 Cbc With Differential Ord2 Eos ABS# 0.1 K/ul 12/18/2015 Cbc With Differential Ord2 Baso ABS# 0.0 K/ul 12/18/2015 Cbc With Differential Ord2 New Analyzer Notice Please note new ref ranges s tarting 10-15-2015 due to implemntation of new five part differential hematolgy analyzer. 12/18/2015 Total T3 Ord42 TT3 1.0 ng/ml 07/10/2015 Free T4 Kiz949 FREE T4 0.90 ng/dL 07/09/2015 Free T3 Fxi707 Free T3 2.92 pg/ml 07/09/2015 Tsh Ord6 hTSH II 1.18 uIU/mL 07/09/2015 URINALYSIS NONAUTO W/O SCOPE 09368 Specific [place] 1.005 DateTime(Free Text in Aprima) URINALYSIS NONAUTO W/O SCOPE 56902 PH 6 DateTime(Free Text in Aprima) URINALYSIS NONAUTO W/O SCOPE 41512 GLUCOSE neg DateTime(Free Dano t in Aprima) URINALYSIS NONAUTO W/O SCOPE 11142 Protein neg DateTime(Free Dano t in Aprima) URINALYSIS NONAUTO W/O SCOPE 31841 Blood neg DateTime(Free Dano t in Aprima) URINALYSIS NONAUTO W/O SCOPE 26865 Bilirubin neg DateTime(Free Dano t in Aprima) URINALYSIS NONAUTO W/O SCOPE 70590 Ketones neg DateTime(Free Dano t in Aprima) URINALYSIS NONAUTO W/O SCOPE 96970 Urobilinogen neg DateTime(Free Text in Aprima) URINALYSIS NONAUTO W/O SCOPE 47615 Nitrite neg DateTime(Free Dano t in Aprima) URINALYSIS NONAUTO W/O SCOPE 23744 Leukocytes neg DateTime(Free Text in Aprima) Review of Systems System Result Effective Dates Constitutional recent illness 08/31/2018 Constitutional No anorexia [...] near-syncope/dizziness 01/13/2016 Neurologic dizziness 09/2016 Neurologic headache /1 11/2015 Respiratory No cigarette smoking 01/13/2016 Respiratory No [...] Result Effective Dates Notes Full Exam - ENT Constitutional general appearance [...] Formatting Model/CDA Sections, Assigned to/Kimberley Fagan CPT-4: 55944Frjfgas 07/06/2018 ADMIN INFLUENZA VIRU S VAC CPT-4: G0008 07/05/2017 FLU VACC PRSV FREE I NC ANTIG CPT-4: 18045 07/05/2017 THER/PROPH/DIAG INJ SC/IM CPT-4: 44906 11/05/2016 TRIAMCINOLONE ACET I [place] NOS CPT-4: J3301 11/05/2016 TRIAMCINOLONE ACET I [place] NOS CPT-4: J3301 09/16/2014 DRAIN/INJECT JOINT/B URSA CPT-4: 19480 09/16/2014 KETOROLAC TROMETHAMI NE INJ CPT-4: J1885 03/20/2014 URINALYSIS NONAUTO W /O SCOPE CPT-4: 15105 12/10/2013 PRESCRIP TRANSMIT A ERX SY CPT-4: G8553 09/17/2013 PRESCRIP TRANSMIT A ERX SY CPT-4: G8553 06/08/2012 TRIAMCINOLONE ACET I [place] NOS CPT-4: J3301 03/16/2012 INJ TRIGGER POINT 1/ 2 MUSCL CPT-4: 78450 03/16/2012 PRESCRIP TRANSMIT A ERX SY CPT-4: G8553 03/16/2012 ADMIN INFLUENZA VIRU S VAC CPT-4: G0008 07/13/2011 FLULAVAL VACC, 3 YRS & >, IM CPT-4: Q2036 07/13/2011 ADMIN PNEUMOCOCCAL V ACCINE SNOMED CT: 12495445 CPT-4: G0009 07/13/2011 Pneumococcal Polysac charide Vaccine, 23-Valent, Ad CPT-4: 71238 07/13/2011 Vital Signs Date Vital 08/31/2018 Blood Pressure 1: 148/76 Code: 8480-6 BMI: 37.0 Code: 77204-5 Heart Rate 1: 60 bpm Height: 5'3" SpO2: 98% Weight: 209 lbs 08/14/2018 Blood Pressure 1: 140/80 Code: 8480-6 BMI: 37.2 Code: 56195-0 Heart Rate 1: 76 bpm Height: 5'3" SpO2: 96% Weight: 210 lbs 05/22/2018 Blood Pressure 1: 150/62 Code: 8480-6 BMI: 36.7 Code: 11339-1 Heart Rate 1: 74 bpm Height: 5'3" SpO2: 98% Weight: 207 lbs 11/18/2017 Blood Pressure 1: 122/66 Code: 8480-6 BMI: 35.8 Code: 53036-8 Heart Rate 1: 59 bpm Height: 5'3" SpO2: 97% Weight: 202 lbs 08/03/2017 Blood Pressure 1: 122/60 Code: 8480-6 BMI: 36.0 Code: 20449-7 Heart Rate 1: 60 bpm Height: 5'3" SpO2: 97% Weight: 203 lbs 07/05/2017 Blood Pressure 1: 140/76 Code: 8480-6 BMI: 36.0 Code: 71439-2 Heart Rate 1: 58 bpm Height: 5'3" SpO2: 98% Weight: 203 lbs 12/02/2016 Blood Pressure 1: 122/70 Code: 8480-6 BMI: 34.4 Code: 77619-7 Heart Rate 1: 66 bpm Height: 5'3" SpO2: 99% Temperature: 36.4 (C ) / 97.5 (F) Weight: 194 lbs 11/22/2016 Blood Pressure 1: 102/60 Code: 8480-6 BMI: 34.2 Code: 01176-9 Heart Rate 1: 110 bpm Height: 5'3" SpO2: 98% Temperature: 36.7 (C ) / 98.0 (F) Weight: 193 lbs 11/05/2016 Blood Pressure 1: 140/62 Code: 8480-6 BMI: 36.1 Code: 73036-6 Heart Rate 1: 102 bpm Height: 5'3" SpO2: 97% Temperature: 37.1 (C ) / 98.7 (F) Weight: 204 lbs 07/22/2016 Blood Pressure 1: 158/80 Code: 8480-6 Blood Pressure 1: 160/76 Code: 8480-6 BMI: 36.8 Code: 53221-6 Heart Rate 1: 56 bpm Height: 5'3" SpO2: 98% Weight: 208 lbs 05/19/2016 Blood Pressure 1: 150/78 Code: 8480-6 Blood Pressure 1: 122/69 Code: 8480-6 BMI: 37.0 Code: 09543-9 Heart Rate 1: 61 bpm Height: 5'3" SpO2: 98% Weight: 209 lbs 02/13/2016 Blood Pressure 1: 140/76 Code: 8480-6 BMI: 36.8 Code: 81679-5 Heart Rate 1: 64 bpm Height: 5'3" SpO2: 97% Weight: 208 lbs 01/13/2016 Blood Pressure 1: 170/70 Code: 8480-6 BMI: 36.8 Code: 09734-0 Heart Rate 1: 65 bpm Height: 5'3" SpO2: 95% Weight: 208 lbs 01/02/2016 Blood Pressure 1: 150/88 Code: 8480-6 BMI: 36.8 Code: 55557-5 Heart Rate 1: 61 bpm Height: 5'3" SpO2: 98% Weight: 208 lbs 12/18/2015 Blood Pressure 1: 148/90 Code: 8480-6 BMI: 37.6 Code: 42429-6 Heart Rate 1: 64 bpm Height: 5'3" SpO2: 96% Weight: 212 lbs 09/08/2015 Blood Pressure 1: 130/88 Code: 8480-6 BMI: 37.0 Code: 65331-2 Heart Rate 1: 62 bpm Height: 5'3" SpO2: 97% Weight: 209 lbs 07/09/2015 Blood Pressure 1: 142/82 Code: 8480-6 BMI: 36.4 Code: 11407-9 Heart Rate 1: 66 bpm Height: 5'3" SpO2: 97% Weight: 205 lbs 5 oz 01/16/2015 Blood Pressure 1: 122/80 Code: 8480-6 BMI: 35.6 Code: 63705-8 Heart Rate 1: 67 bpm Height: 5'3" SpO2: 98% Weight: 201 lbs 01/03/2015 Blood Pressure 1: 122/70 Code: 8480-6 BMI: 35.6 Code: 46826-4 Heart Rate 1: 61 bpm Height: 5'3" Respiratory Rate: 16 bpm SpO2: 98% Weight: 201 lbs 09/16/2014 Blood Pressure 1: 132/78 Code: 8480-6 BMI: 34.9 Code: 12073-0 Heart Rate 1: 56 bpm Height: 5'3" Weight: 197 lbs 08/15/2014 Blood Pressure 1: 152/80 Code: 8480-6 Blood Pressure 2: 160/82 Code: 8480-6 BMI: 34.0 Code: 02217-2 Heart Rate 1: 75 bpm Height: 5'3" Weight: 192 lbs 06/12/2014 Blood Pressure 1: 136/82 Code: 8480-6 BMI: 34.9 Code: 16620-5 Heart Rate 1: 58 bpm Height: 5'3" SpO2: 96% Weight: 197 lbs 03/20/2014 Blood Pressure 1: 140/72 Code: 8480-6 BMI: 34.9 Code: 21517-2 Heart Rate 1: 60 bpm Height: 5'3" Weight: 197 lbs 12/10/2013 Blood Pressure 1: 132/78 Code: 8480-6 BMI: 35.1 Code: 40069-5 Heart Rate 1: 68 bpm Height: 5'3" Weight: 198 lbs 09/17/2013 Blood Pressure 1: 128/78 Code: 8480-6 BMI: 34.9 Code: 55641-0 Heart Rate 1: 68 bpm Height: 5'3" Weight: 197 lbs 05/21/2013 Blood Pressure 1: 128/82 Code: 8480-6 BMI: 35.6 Code: 74372-0 Heart Rate 1: 80 bpm Height: 5'3" Weight: 201 lbs 01/17/2013 Blood Pressure 1: 138/72 Code: 8480-6 BMI: 36.7 Code: 26177-3 Heart Rate 1: 60 bpm Height: 5'3" [...] 1: 140/78 Code: 8480-6 BMI: 40.0 Code: 36888-2 Heart Rate 1: 64 bpm Height: 5'3" Respiratory Rate: 16 bpm Weight: 226 lbs 11/04/2011 Blood Pressure 1: 136/76 Code: 8480-6 Heart Rate 1: 68 bpm Respiratory Rate: 16 bpm Weight: 226 lbs 07/13/2011 Blood Pressure 1: 142/80 Code: 8480-6 BMI: 40.0 Code: 79063-4 Heart Rate 1: 60 bpm Height: 5'4" Respiratory Rate: 16 bpm Weight: 233 lbs Functional Status No Functional Status data History of Present Illness Symptom Name Status Resu lt Effective Date Notes nasal discharge Location in both nares 08/31/2018 [...] Encounters Encounter Performer Loca tion Codes Date () 68022 EST. P ATIENT, LEVEL III Diagnosis: Nasal congestion[ICD10: R09.81] Diagnosis: Other allergic rhinitis[ICD10: J30.89] Юлия Manuel MD, [facility] CPT-4: 61756 08/31/2018 ([id number]) 52791 EST. P ATIENT, LEVEL III Diagnosis: Acute recurrent maxillary sinusitis[ICD10: J01.01] Юлия Manuel MD, [facility] CPT-4: 42246 08/14/2018 03764 EST. PATIENT, LEVEL III Diagnosis: Pain in right shoulder[ICD10: M25.511] Diagnosis: Pain in right arm[ICD10: M79.601] Willow Manuel MD, [facility] CPT-4: 99214 05/22/2018 ([id number] EST. 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 PATIENT, LEVEL III Diagnosis: Other specified intestinal infections[ICD10: A08.8] Willow Manuel MD, [facility] CPT-4: 36196 08/03/2017 ([id number] 01606 EST. 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 P ATIENT, LEVEL III Diagnosis: Essential (primary) hypertension[ICD10: I10] Юлия Manuel MD, [facility] CPT-4: 95482 12/02/2016 ([id number]) 61241 EST. P ATIENT, LEVEL III Diagnosis: Essential (primary) hypertension[ICD10: I10] Diagnosis: Allergic rhinitis due to pollen[ICD10: J30.1] Giuliana Manuel MD, [facility] CPT-4: 87220 11/22/2016 98519 EST. PATIENT, LEVEL III Diagnosis: Acute laryngopharyngitis[ICD10: J06.0] Diagnosis: Influenza due to unidentified influenza virus with other respiratory manifestations[ICD10: J11.1] Willow Manuel MD, [facility] CPT-4: 76271 11/05/2016 ([id number]) 70474 EST. P ATIENT, LEVEL III Diagnosis: Gastro-esophageal reflux disease without esophagitis[ICD10: K21.9] Diagnosis: Essential (primary) hypertension[ICD10: I10] Giuliana Maunel MD, [facility] CPT-4: 03644 07/22/2016 ([id number]) 47355 EST. P ATIENT, LEVEL IV Diagnosis: Essential (primary) hypertension[ICD10: I10] Diagnosis: Abdominal distension (gaseous)[ICD10: R14.0] Giuliana Manuel MD, [facility] CPT-4: 18265 05/19/2016 ([id number]) 65905 EST. P ATIENT, LEVEL III Diagnosis: Essential (primary) hypertension[ICD10: I10] Юлия Manuel MD, [facility] CPT-4: 61513 02/13/2016 ([id number]) 11429 EST. P ATIENT, LEVEL III Diagnosis: Essential (primary) hypertension[ICD10: I10] Юлия Manuel MD, [facility] CPT-4: 41699 01/13/2016 43043 EST. PATIENT, LEVEL IV Diagnosis: Essential (primary) hypertension[ICD10: I10] Diagnosis: Body mass index (BMI) 36.0-36.9, adult[ICD10: Z68.36] Willow Manuel MD, [facility] CPT-4: 69534 01/02/2016 ([id number]) 79787 EST. P ATIENT, LEVEL III Diagnosis: Essential (primary) hypertension[ICD10: I10] Юиля Manuel MD, [facility] CPT-4: 60303 12/18/2015 ([id number]) 18948 EST. P ATIENT, LEVEL IV Diagnosis: Essential (primary) hypertension[ICD10: I10] Diagnosis: Benign paroxysmal vertigo, bilateral[ICD10: H81.13] Diagnosis: Radiculopathy, cervical region[ICD10: M54.12] Giuliana Manuel MD, [facility] CPT-4: 54122 09/08/2015 ([id number]) 92075 EST. P ATIENT, LEVEL IV Diagnosis: Other specified nonscarring hair loss[ICD10: L65.8] Diagnosis: Myositis, unspecified[ICD10: M60.9] Diagnosis: Psoriasis, unspecified[ICD10: L40.9] Diagnosis: Essential (primary) hypertension[ICD10: I10] Giuliana Manuel MD, [facility] CPT-4: 41591 07/09/2015 ([id number]) 55436 EST. P ATIENT, LEVEL III Diagnosis: ESSENTIAL HYPERTENSION[ICD9: 401.9] Giuliana Manuel MD, [facility] CPT- 4: 55355 01/16/2015 ([id number]) 10291 EST. P ATIENT, LEVEL III Diagnosis: Shoulder pain[ICD9: 719.41] Diagnosis: ESSENTIAL HYPERTENSION[ICD9: 401.9] Diagnosis: PALPITATIONS[ICD9: 785.1] Giuliana Manuel MD, [facility] CPT-4: 21351 01/03/2015 ([id number]) 01666 EST. P ATIENT, LEVEL III Diagnosis: Sacroiliitis[ICD9: 720.2] Diagnosis: Back pain[ICD9: 724.5] Diagnosis: ESSENTIAL HYPERTENSION[ICD9: 401.9] Giuliana Manuel MD, [facility] CPT- 4: 45179 09/16/2014 ([id number]) 36721 EST. P ATIENT, LEVEL IV Diagnosis: ESSENTIAL HYPERTENSION[ICD9: 401.9] Diagnosis: Arrhythmia[ICD9: 427.9] Diagnosis: Nausea[ICD9: 787.02] Giuliana Manuel MD, [facility] CPT-4: 31018 08/15/2014 ([id number]) 75711 EST. P ATIENT, LEVEL IV Diagnosis: ESSENTIAL HYPERTENSION[ICD9: 401.9] Diagnosis: Back pain[ICD9: 724.5] Diagnosis: Allergic reaction[ICD9: 995.3] Giuliana Manuel MD, [facility] CPT-4: 88229 06/12/2014 ([id number]) 54863 EST. P ATIENT, LEVEL III Diagnosis: Thoracic back pain[ICD9: 724.1] Diagnosis: MYALGIA AND MYOSITIS[ICD9: 729.1] Giuliana Manuel MD, [facility] CPT-4: 31604 03/20/2014 ([id number]) 88150 EST. P ATIENT, LEVEL IV Diagnosis: HYPERLIPIDEMIA[ICD9: 272.4] Diagnosis: ESSENTIAL HYPERTENSION[SNOMED: 58080316] Diagnosis: ABDOM PAIN NOS SITE[ICD9: 789.00] Giuliana Manuel MD, [facility] CPT-4: 64329 12/10/2013 ([id number]) 88054 EST. P ATIENT, LEVEL IV Diagnosis: ESSENTIAL HYPERTENSION[SNOMED: 33784026] Diagnosis: HYPERLIPIDEMIA[ICD9: 272.4] Giuliana Manuel MD [facility] CPT-4: 64058 09/17/2013 ([id number]) 74250 EST. P ATIENT, LEVEL IV Diagnosis: ESSENTIAL HYPERTENSION[SNOMED: 42038056] Diagnosis: OBESITY[ICD9: 278.00] Diagnosis: Back pain[ICD9: 724.5] Giuliana Manuel MD [facility] CPT-4: 21331 05/21/2013 ([id number]) 21815 EST. P ATIENT, LEVEL IV Diagnosis: ESSENTIAL HYPERTENSION[SNOMED: 83356845] Diagnosis: HYPERLIPIDEMIA[ICD9: 272.4] Diagnosis: Abdominal pain[ICD9: 789.00] Diagnosis: BENIGN PAROXYSMAL VERTIGO[ICD9: 386.11] Giuliana Manuel MD [facility] CPT-4: 07271 01/17/2013 ([id number]) 14377 EST. P ATIENT, LEVEL IV Diagnosis: ESSENTIAL HYPERTENSION[SNOMED: 12147618] Diagnosis: BENIGN PAROXYSMAL VERTIGO[ICD9: 386.11] Diagnosis: Hair loss[ICD9: 704.00] Diagnosis: Vitamin d deficiency[ICD9: 268.9] Diagnosis: Bleeding from the nose[ICD9: 784.7] Giuliana Manuel MD, [facility] CPT- 4: 30612 09/20/2012 73519 EST. PATIENT, LEVEL IV Diagnosis: BPPV (benign paroxysmal positional vertigo)[ICD9: 386.11] Diagnosis: HYPERLIPIDEMIA[ICD9: 272.4] Diagnosis: ESSENTIAL HYPERTENSION[SNOMED: 66701761] Giuliana Manuel MD, C CPT-4: 83174 06/08/2012 ([id number]) 68861 EST. P ATIENT, LEVEL IV Diagnosis: BPPV (benign paroxysmal positional vertigo)[ICD9: 386.11] Diagnosis: Diverticulitis[ICD9: 562.11] Diagnosis: Abdominal pain[ICD9: 789.00] Giuliana Manuel MD, [facility] CPT-4: 10384 04/10/2012 ([id number]) 38057 EST. P ATIENT, LEVEL III Diagnosis: Neck pain[ICD9: 723.1] Diagnosis: Acute upper back pain[ICD9: 724.1] Giuliana Manuel MD, [facility] CPT- 4: 72530 03/16/2012 ([id number]) 51711 EST. P ATIENT, LEVEL IV Diagnosis: HYPERLIPIDEMIA[ICD9: 272.4] Diagnosis: ESSENTIAL HYPERTENSION[SNOMED: 00870209] Diagnosis: Constipation - functional[ICD9: 564.09] Giuliana Manuel MD, [facility] CPT-4: 09060 02/03/2012 ([id number]) 47129 EST. P ATIENT, LEVEL IV Diagnosis: HYPERLIPIDEMIA[ICD9: 272.4] Diagnosis: VITAMIN DEFICIENCY[ICD9: 269.2] Diagnosis: ESSENTIAL HYPERTENSION[SNOMED: 42255448] Giuliana Manuel MD, [facility] CPT-4: 84731 11/04/2011 22621 EST. 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 08/31/2018 Appointment: Юлия Rojas WPtel: [address] [place], [place] [phone] (15 min) Moderate 08/31/2018 Patient Education: Patient [...] improve. 05/22/2018 Appointment: Willow Garcia WPtel: [phone] [facility] (15 min) Moderate 05/22/2018 Patient Education: Patient [...] improving. 11/18/2017 Appointment: Giuliana Manuel WPtel: [phone] [facility] (15 min) Moderate 11/18/2017 Patient Education: Patient Medication Summary Completed 11/18/2017 Appointment: Giuliana Manuel WPtel: [phone] [facility] (15 min) Moderate 11/07/2017 Visit [...] improved. 08/03/2017 Appointment: Willow Garcia WPtel: [phone] [facility] (30 min) Complex 08/03/2017 Patient Education: Patient [...] daily. 07/05/2017 Appointment: Giuliana Manuel WPtel: [phone] [facility] [place] (15 min) Moderate 07/05/2017 Patient Education: Patient Medication Summary Completed 07/05/2017 Patient Education: Obesity Completed 07/05/2017 Appointment: Giuliana Manuel WPtel: [phone] [facility] [place] (15 min) Moderate 06/27/2017 Appointment: Giuliana Manuel WPtel: [phone] [facility] [place] (15 min) Moderate 06/21/2017 Appointment: Юлия Rojas WPtel: [phone] [phone] [place] (30 min) Complex 12/23/2016 Visit Plan: [...] HCTZ 12/02/2016 Appointment: Юлия Rojas WPtel: [phone] [phone] [place] (30 min) Complex 12/02/2016 Patient Education: [...] days 11/22/2016 Appointment: Giuliana Manuel WPtel: [phone] [facility] (15 min) Moderate 11/22/2016 Patient Education: Patient Medication Summary Completed 11/22/2016 Patient Education: Obesity Completed 11/22/2016 Visit Plan: Influenza - pt started on tamiflu - pt to start on anti-inflammatories, tylenol and monitor symptoms. Pt to call if not improving. Pt to alert any close contacts as to illness. 11/05/2016 Appointment: [phone] ([facility] Complex 11/05/2016 Patient Education: Patient [...] carafate 07/22/2016 Appointment: Giuliana Manuel WPtel: [phone] [facility] (15 min) Moderate 07/22/2016 Patient Education: Patient Medication Summary Completed 07/22/2016 Patient Education: Obesity Completed 07/22/2016 Care Plan: Referral Order SNOMED-CT : [id number] Pending 07/22/2016 Visit Plan: Hypertension - well [...] Completed 05/19/2016 Appointment: Giuliana Manuel WPtel: [phone] [facility] (15 min) Moderate 05/17/2016 Visit Plan: Hypertension - well con trolled - continue with current medications, continue with no added salt diet. Pt has been encouraged to exercise daily. The pt has been advised to call the office if there are any acute concerns about change in blood pressure readings at home. 02/13/2016 Appointment: Юлия Rojas WPtel: [phone] [phone] (30 min) Complex 02/13/2016 Patient Education: Patient [...] Completed 12/18/2015 [facility]ment: [phone] (15 min) Moderate 12/08/2015 Referral: Jared Lafleur [address] [facility] D [id number] Referral Completed 10/17/2015 Visit Plan: Hypertension - [...] stress test. 09/08/2015 Appointment: Giuliana Manuel WPtel: [facility] (15 min) Moderate 09/08/2015 Patient Education: Patient Medication Summary Completed 09/08/2015 Patient Education: .Cervicalgia Neck Pain Completed 09/08/2015 Care Plan: Referral Order SNOMED-CT : [id number] Ordered 09/08/2015 Visit Plan: Hypertension - uncontro [...] checked today. 07/09/2015 Appointment: Giuliana Manuel WPtel: [address] [place], [place] [phone] (15 min) Moderate 07/09/2015 Patient Education: Patient Medication Summary Completed 07/09/2015 Appointment: Giuliana Manuel WPtel: [facility] (15 min) Moderate 07/07/2015 Appointment: Giuliana Manuel WPtel: [address] [place], [place] [phone] Follow up 03/17/2015 Visit Plan: Hypertension - well con trolled - continue with current medications, continue with no added salt diet. Pt has been encouraged to exercise daily. The pt has been advised to call the office if there are any acute concerns about change in blood pressure readings at home. Palpitations resolved. 01/16/2015 Appointment: Giuliana Manuel WPtel: [phone] [facility] Other 01/16/2015 Patient Education: Patient Medication [...] pain symptoms. 01/03/2015 Appointment: Giuliana Manuel WPtel: [facility] Follow up 01/03/2015 Patient Education: Patient [...] Hypertension Completed 09/16/2014 Appointment: Giuliana Manuel WPtel: [phone] [facility] Follow up 09/09/2014 Visit Plan: Hypertension [...] worsen. 08/15/2014 Appointment: Giuliana Manuel WPtel: [address] [place], [place] [phone] [facility] 08/15/2014 Patient Education: Patient Medication Summary Completed 08/15/2014 Patient Education: Hypertension Completed 08/15/2014 Care Plan: Referral Order SNOMED-CT : [id number] Ordered 08/15/2014 Appointment: Giuliana Manuel WPtel: [facility] Follow up 06/18/2014 Visit Plan: Back pain - referral to [facility]. Rash - reaction to soy [...] Giuliana Manuel WPtel: [facility] [facility] 06/12/2014 Patient Education: Patient Medication Summary Completed 06/12/2014 Patient Education: Hypertension Completed 06/12/2014 Care Plan: Referral Order SNOMED-CT : [id number] Ordered 06/12/2014 Visit Plan: Hypertension - well [...] lumbar and throacic spine xrays. 03/20/2014 Appointment: MarGiuliana guzman WPtel: [phone] [facility] Follow up 03/20/2014 Patient Education: Patient Medication [...] was negative for a UTI 12/10/2013 Appointment: Mar Giuliana [facility]Ptel: [phone] Follow up 12/10/2013 Patient Education: Patient Medication [...] times weekly. 09/17/2013 Appointment: Giuliana Manuel WPtel: [facility] Follow up 09/17/2013 Patient Education: Patient [...] muscle rub. 05/21/2013 Appointment: Giuliana Manuel WPtel: [facility] Follow up 05/21/2013 Patient Education: Patient [...] the vertigo. 01/17/2013 Appointment: Giuliana Manuel WPtel: [facility] Follow up 01/17/2013 Patient Education: Patient [...] needed. 09/20/2012 Appointment: Giuliana Manuel [facility]Ptel: [phone] Follow up 09/20/2012 Patient Education: Patient Medication [...] begin. 06/08/2012 Appointment: Giuliana Manuel WPtel: [phone] [facility] [place] Follow up 06/08/2012 Patient Education: Patient Medication [...] popcorn. 04/10/2012 Appointment: Giuliana Manuel WPtel: [phone] Other 04/10/2012 Patient Education: Patient Medication Summary [...] Tuesday. 03/16/2012 Appointment: Giuliana Manuel WPtel: [phone] Other 03/16/2012 Patient Education: Patient Medication Summary [...] regimen. 02/03/2012 Appointment: Giuliana Manuel WPtel: [phone] [facility] 02/03/2012 Patient Education: Patient Medication Summary [...] a week. 11/04/2011 Appointment: Giuliana Manuel [facility]Ptel: [phone] Follow up 11/04/2011 Patient Education: Patient Medication [...] She will monitor her intake. Allergies - [facility] for the headaches to see ifnallergy medication helps to prevent the headaches flu shot pneumonia shot 07/13/2011 Appointment: Giuliana Manuel WPtel: [phone] [facility] [place] Other 07/13/2011 Patient Education: Patient Medication Summary Completed 07/13/2011 Patient Education: .[employer]zing [employer] t[employer] meal planning guide Completed 07/13/2011 Referral: [facility]ur [facility] [place] Referral Appointment Requested Referral: Duarte Catalan Referral Appointment Requested Referral: Dr. Willams WPtel: [phone] [facility] [place] Referral Initiated Referral: [facility] WPtel: [phone] [facility] [place] Referral Initiated Instructions Comment [...] . Back pain - referr al to [facility] physical therapy. Rash - reaction to [...]
--- OUTSIDE RECORDS SUMMARY | 2020-01-21 14:26 | XMS REPORT | CCD ---
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/2015 Marital status Unknown M arried 07/13/[address]: 018181117 Nonsmoker 07/13/[address]: 950081756 Never drinks alcohol 07/13/2011 Allergies, Adverse Reactions, Alerts Substance Reaction Codes Entered Date Inactivated Date Status Soy Unknown 07/13/2011 No Inactive Date Active Cardizem RxNorm: 957678 05/19/2016 No Inactive Date Active Metoprolol Succinate [...] pain ICD-9: 789.00 Active 07/13/2011 Unknown 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 Active 07/13/2011 Unknown OBESITY ICD-9: [...] Abdominal pain ICD-9: 789.00 07/13/2011 Active 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 07/13/2011 Active OBESITY ICD-9: 278.00 07/13/2011 Active Postprandial bloating ICD-9: 787.3 07/13/2011 Active Seasonal allergies ICD- 9: 477.9 07/13/2011 Active VAC STREP PNEUMONIAE -FLU ICD-9: V06.6 07/13/2011 Active Medications Medication Codes Instruc tions Start Date Stop Date Sta tus Fill Instructions Kenalog 40 mg/mL karl pension for injection RxNorm: 0508958 1 Milliliter(s) Inj 08/31/2018 08/31/2018 In active clonidine HCl 0.1 mg tablet RxNorm: 928158 1/2 Tablet(s) PO BID 08/16/2018 08/10/2019 Active amoxicillin 500 mg t ablet RxNorm: 203037 1 Tablet(s) PO TID 08/14/2018 08/20/2018 Inactive losartan 25 mg tablet RxNorm: 046766 1 Tablet(s) PO BID 05/02/2018 04/26/2019 Active losartan 25 mg tablet RxNorm: 193694 1 Tablet(s) PO BID 05/02/2018 05/01/2018 Inactive losartan 25 mg tablet RxNorm: 763509 1 Tablet(s) PO BID 01/30/2018 05/01/2018 Inactive Vitamin D 2,000 unit capsule RxNorm: 1 Capsule(s) PO daily 11/18/2017 No Stop Date Active doxazosin 1 mg tablet RxNorm: 234945 1 Tablet(s) PO daily at midnight 11/18/2017 11/12/2018 Ac tive midnight hydrochlorothiazide 12.5 mg tablet RxNorm: 865127 1 Tablet(s) PO daily 11/18/2017 11/12/2018 Ac tive atenolol 25 mg tablet RxNorm: 126370 1 Tablet(s) PO daily 11/18/2017 11/12/2018 Active famotidine 40 mg tablet RxNorm: 613956 1 Tablet(s) PO daily TAKE 1 TABLET BY [facility] EVERY MORNING 11/18/2017 11/12/2018 Active - Ref: [id number] atenolol 25 mg tablet RxNorm: 029729 1 Tablet(s) PO BID managed by Dr Lafleur 11/18/2017 11/17/2017 In active clonidine HCl 0.1 mg tablet RxNorm: 328722 1/2 Tablet(s) PO BID 11/18/2017 08/15/2018 Inactive losartan 25 mg tablet RxNorm: 413771 1 Tablet(s) PO BID 11/18/2017 01/29/2018 Inactive hydrochlorothiazide 12.5 mg tablet RxNorm: 877913 1 Tablet(s) PO daily 10/28/2017 11/17/2017 In active famotidine 40 mg tablet RxNorm: 251636 TAKE 1 TABLET BY MOUTH EVERY MORNING 10/04/2017 11/17/2017 In active - Ref: [id number] clonidine HCl 0.1 mg tablet RxNorm: 868168 1/2 Tablet(s) PO BID 07/05/2017 11/17/2017 Inactive doxazosin 1 mg tablet RxNorm: 203870 1 Tablet(s) PO daily at midnight 07/05/2017 11/17/2017 In active midnight doxazosin 1 mg tablet RxNorm: 101441 1 Tablet(s) PO BID 12/02/2016 2017 Inactive midnight prednisone 20 mg tablet RxNorm: 157699 3 Tablet(s) PO daily 11/22/2016 11/26/2016 Inactive Tessalon Perles 100 mg capsule RxNorm: 829966 1 -2 Capsule(s) PO TI D as needed cough 11/19/2016 No Stop Date Active Zithromax Z-Jeff 250 mg tablet RxNorm: 755458 1 Tablet(s) PO UD 11/19/2016 12/01/2016 Inactive z pack as directed Tamiflu 75 mg capsule RxNorm: 514849 1 Capsule(s) PO BID 11/05/2016 11/09/2016 Inactive Kenalog 40 mg/mL karl pension for injection RxNorm: 9075122 Milliliter(s) Inj 11/05/2016 11/05/2016 In active Tessalon Perles 100 mg capsule RxNorm: 316024 1 -2 Capsule(s) PO TI D as needed cough 11/04/2016 11/18/2016 Inactive famotidine 40 mg tablet RxNorm: 101121 1 Tablet(s) PO QAM 10/25/2016 10/03/2017 Inactive famotidine 40 mg tablet RxNorm: 891758 1 Tablet(s) PO QAM 08/02/2016 10/24/2016 Inactive Carafate 1 gram tablet RxNorm: 615128 1 Tablet(s) PO TID DISSOLVE THE PILL IN 10ML OF WATER 07/22/2016 10/19/2016 Inactive clonidine HCl 0.1 mg tablet RxNorm: 938736 1 Tablet(s) PO BID an d 1 tablet as needed 07/22/2016 12/01/2016 Inactive aspirin 81 mg tablet ,delayed release RxNorm: 557612 1 Tablet(s) PO QHS 05/19/2016 No Stop Date Active Cinnamon 1000 mg RxNorm: 1 PO daily 05/19/2016 No Stop Date Active losartan 25 mg tablet RxNorm: 654027 1 Tablet(s) PO BID 05/19/2016 11/17/2017 Inactive atenolol 25 mg tablet RxNorm: 805650 1.5 Tablet(s) PO BID 02/13/2016 07/21/2016 Inactive losartan 25 mg tablet RxNorm: 292975 2 Tablet(s) PO BID 01/13/2016 05/11/2016 Inactive Cardizem CD 240 mg c apsule,extended release RxNorm: 448010 1 Capsule(s) PO daily 01/13/2016 02/12/2016 In active losartan 100 mg tablet RxNorm: 239020 1/2 Tablet(s) PO BID 01/08/2016 01/12/2016 Inactive losartan 25 mg tablet RxNorm: 110408 2 Tablet(s) PO QPM 1 Tablet(s) PO QPM 12/18/2015 01/07/2016 In active atenolol 25 mg tablet RxNorm: 979292 1.5 Tablet(s) PO BID TAKE ONE TABLET BY MOUTH TWICE A DAY 12/18/2015 01/12/2016 Inactive atenolol 25 mg tablet RxNorm: 469835 Tablet(s) TAKE ONE TABLET BY MOUTH TWICE A DAY 11/14/2015 12/17/2015 Inactive losartan 25 mg tablet RxNorm: 080450 Tablet(s) 1 Tablet(s) PO QPM 11/14/2015 12/17/2015 Inactive spironolactone 25 mg tablet RxNorm: 823521 1 Tablet(s) PO daily 11/14/2015 12/14/2015 Inactive atenolol 25 mg tablet RxNorm: 007469 TAKE ONE TABLET BY MOUTH TWICE A DAY 08/07/2015 11/13/2015 In active atenolol 25 mg tablet RxNorm: 175372 1 Tablet(s) PO daily TAKE ONE TABLET BY MOUTH TWICE DAILY 08/06/2015 08/06/2015 Inactive Generic For:TENORMIN 25 MG TABLET 05/05/2015 10:00:22 AM atenolol 25 mg tablet RxNorm: 218704 1 Tablet(s) PO daily TAKE ONE TABLET BY MOUTH TWICE DAILY 08/06/2015 08/05/2015 Inactive Generic For:TENORMIN 25 MG TABLET 05/05/2015 10:00:22 AM betamethasone diprop ionate 0.05 % topical ointment RxNorm: 835663 1 TOP TID as needed rash 07/09/2015 05/18/2016 Inactive betamethasone diprop ionate 0.05 % topical ointment RxNorm: 433742 1 TOP TID as needed rash 07/09/2015 07/08/2015 Inactive spironolactone 25 mg tablet RxNorm: 448670 1 Tablet(s) PO daily 07/09/2015 07/08/2015 Inactive spironolactone 25 mg tablet RxNorm: 408654 1 Tablet(s) PO daily 07/09/2015 11/13/2015 Inactive losartan 25 mg tablet RxNorm: 491421 Tablet(s) 1 Tablet(s) PO QPM 05/27/2015 11/13/2015 Inactive atenolol 25 mg tablet RxNorm: 936120 TAKE ONE TABLET BY MOUTH TWICE DAILY 05/05/2015 08/05/2015 In active Generic For:TENORMIN 25 MG TABLET 05/05 10:00:22 AM hydrochlorothiazide 25 mg tablet RxNorm: 186540 1/2 Tablet(s) PO BID 02/17/2015 07/08/2015 Inactive Generic For:HYDRODIURIL 25 MG TABLET sulfamethoxazole 800 mg-trimethoprim 160 mg tablet RxNorm: 012191 1 Tablet(s) PO BID 01/16/2015 01/25/2015 Inactive losartan 25 mg tablet RxNorm: 969358 1 Tablet(s) PO QPM 12/09/2014 05/26/2015 Inactive Kenalog 40 mg/mL karl pension for injection RxNorm: 0985004 1 Milliliter(s) Inj 09/16/2014 09/16/2014 In active prednisone 20 mg tablet RxNorm: 817875 3 Tablet(s) PO daily 09/16/2014 09/18/2014 Inactive losartan 25 mg tablet RxNorm: 885719 1 Tablet(s) PO QPM 08/15/2014 12/08/2014 Inactive hydrochlorothiazide 25 mg tablet RxNorm: 205538 TAKE 1/2 TABLET BY MO [facility] TWICE DAILY 08/13/2014 02/08/2015 Inactive Generic For:HYDRODIURIL 25 MG TABLET atenolol 25 mg tablet RxNorm: 363734 TAKE ONE TABLET BY MOUTH TWICE DAILY 05/07/2014 05/01/2015 In active Generic For:TENORMIN 25 MG TABLET ketorolac 60 mg/2 mL intramuscular solution RxNorm: 920301 2 Milliliter(s) IM 03/20/2014 03/20/2014 In active hydrochlorothiazide 25 mg tablet RxNorm: 330461 Tablet(s) PO TAKE 1/2 TABLET BY MOUTH TWICE DAILY 02/14/2014 08/12/2014 Inactive Generic For:HYDRODIURIL 25 MG TABLET Generic For:HYDRODIURIL 25 MG TABLET 02/14/2014 3:45:03 PM atorvastatin 10 mg t ablet RxNorm: 236766 1 Tablet(s) PO TIW 09/17/2013 03/19/2014 Inactive atorvastatin 10 mg t ablet RxNorm: 900603 tablet oral 09/17/2013 06/04/2015 Inactive hydrochlorothiazide 25 mg tablet RxNorm: 744385 Tablet(s) PO TAKE 1/2 TABLET BY MOUTH TWICE DAILY 08/06/2013 02/13/2014 Inactive Generic For:HYDRODIURIL 25 MG TABLET Generic For:HYDRODIURIL 25 MG TABLET 08/06/2013 1:52:35 PM amoxicillin 500 mg t ablet RxNorm: 862967 2 Tablet(s) PO 2 tabl ets PO 1 hour before dental procedure. 07/26/2013 07/25/2013 Inactive amoxicillin 500 mg t ablet RxNorm: 480721 2 Tablet(s) PO 2 tabl ets PO 1 hour before dental procedure. 07/26/2013 07/26/2013 Inactive methotrexate sodium 2.5 mg tablet RxNorm: 215371 tablet oral 07/13/2013 01/15/2015 Inactive atenolol 25 mg tablet RxNorm: 254014 Tablet(s) PO TAKE ONE TABLET BY MOUTH TW ICE DAILY 05/01/2013 05/06/2014 Inactive Generic For:TENORMIN 25 MG TABLET hydrochlorothiazide 25 mg tablet RxNorm: 019214 Tablet(s) PO TAKE 1/2 TABLET BY MOUTH TWICE DAILY 11/21/2012 08/05/2013 Inactive Generic For:HYDRODIURIL 25 MG TABLET atenolol 25 mg tablet RxNorm: 348520 Tablet(s) PO TAKE ONE TABLET BY MOUTH TW ICE DAILY 10/02/2012 04/30/2013 Inactive Generic For:TENORMIN 25 MG TABLET gemfibrozil 600 mg t ablet RxNorm: 076575 1 Tablet(s) PO BID 06/08/2012 10/08/2012 Inactive meclizine 25 mg tablet RxNorm: 068627 1 Tablet(s) PO Q4 PRN 06/08/2012 09/05/2012 Inactive prednisone 10 mg Tab RxNorm: 955087 2 Tablet(s) PO daily 03/16/2012 03/20/2012 Inactive atorvastatin 10 mg Tab RxNorm: 619582 1 Tablet(s) PO daily 12/21/2011 12/20/2011 Inactive atorvastatin 10 mg Tab RxNorm: 115329 1 Tablet(s) PO daily 12/21/2011 06/08/2012 Inactive methotrexate sodium 2.5 mg Tab RxNorm: 215079 Tablet(s) PO 11/16/2011 06/12/2012 Inactive 3 on tuesday3 on hydrochlorothiazide 25 mg Tab RxNorm: 644816 1/2 Tablet(s) PO BID 11/01/2011 11/24/2012 Inactive hydrochlorothiazide 12.5 mg Cap RxNorm: 027904 Capsule(s) PO 11/01/2011 06/08/2012 Inactive TAKE ONE TABLET BY MOUTH TWICE DAILY;Gen sky For:MICROZIDE 12.5 MG CAPSULE hydrochlorothiazide 25 mg Tab RxNorm: 025937 1/2 Tablet(s) PO BID 11/01/2011 11/24/2012 Inactive hydrochlorothiazide 25 mg tablet RxNorm: 469804 1/2 Tablet(s) PO BID 11/01/2011 10/31/2011 Inactive hydrochlorothiazide 25 mg Tab RxNorm: 349635 1/2 Tablet(s) PO BID 11/01/2011 10/31/2011 Inactive atenolol 25 mg tablet RxNorm: 007143 Tablet(s) PO 10/04/2011 10/01/2012 Inactive TAKE ONE TABLET BY MOUTH TWICE DAILY;Generic For:TENORMIN 25 MG TABLET hydrochlorothiazide 12.5 mg Cap RxNorm: 711014 1 Capsule(s) PO BID 09/13/2011 10/31/2011 Inactive Influenza Virus Vacc ine 0.5 mL RxNorm: IM 07/13/2011 07/13/2011 Inactive Pneumovax 23 25 mcg/ 0.5 mL Injection RxNorm: 867439 Milliliter(s) Inj 07/13/2011 07/13/2011 In active Phenergan VC-Codeine 6.25 mg-5 mg-10 mg/5 mL syrup RxNorm: 439905 5 Milliliter(s) PO Q6 as needed No Start Date Active [place] 3 Cap RxNorm: 1 Capsule(s) PO BID No Start Date Active Cinnamon 1000 mg RxNorm: 2 PO daily No Start Date Active atenolol 25 mg Tab RxNorm: 109482 1 Tablet(s) PO BID No Start Date 10/03/2011 Inactive niacin ER 500 mg Cap RxNorm: 375736 1 Capsule(s) PO daily No Start Date 06/08/2012 Inactive gemfibrozil 600 mg t ablet RxNorm: 903168 1 Tablet(s) PO BID No Start Date 06/07/2012 Inactive Vitamin C 500 mg Tab RxNorm: 264185 1 Tablet(s) PO daily No Start Date 07/21/2016 Inactive Zithromax Z-Jeff 250 mg tablet RxNorm: 751712 1 Tablet(s) PO UD No Start Date 11/18/2016 Inactive z pack as directed doxazosin 1 mg tablet RxNorm: 802910 1 Tablet(s) PO BID No Start Date 12/01/2016 Inactive vitamin E (dl, aceta te) 400 unit Cap RxNorm: 260927 1 Capsule(s) PO daily No Start Date 07/21/2016 Inactive famotidine 40 mg tablet RxNorm: 479343 1 Tablet(s) PO QAM No Start Date 08/01/2016 Inactive hydrochlorothiazide 25 mg Tab RxNorm: 442185 1/2 Tablet(s) PO BID No Start Date 09/12/2011 Inactive Tessalon Perles 100 mg capsule RxNorm: 758645 1 -2 Capsule(s) PO TI D as needed cough No Start Date 11/03/2016 Inactive aspirin 81 mg Tab, D elayed Release RxNorm: 827668 1 Tablet(s) PO every other day No Start Date 05/18/2016 Inactive Cinnamon 1000 mg RxNorm: 2 PO daily No Start Date 05/18/2016 Inactive clonidine HCl 0.1 mg tablet RxNorm: 187447 1 Tablet(s) PO QHS an d 1 Tablet as needed No Start Date 07/21/2016 Inactive niacin 500 mg tablet RxNorm: 354743 1 Tablet(s) PO QHS No Start Date 01/01/2015 Inactive multivitamin Tab RxNorm: 1 Tablet(s) PO daily No Start Date 07/21/2016 Inactive methotrexate sodium 2.5 mg Tab RxNorm: 212151 Tablet(s) PO No Start Date 11/15/2011 Inactive 3 on tuesday3 T-Bio RxNorm: 1 PO daily No Start Date 05/18/2016 Inactive Vitamin D 2,000 unit Cap RxNorm: 1 Capsule(s) PO daily No Start Date 07/21/2016 Inactive hydrochlorothiazide 12.5 mg tablet RxNorm: 144275 1 Tablet(s) PO daily No Start Date 10/27/2017 Inactive Medication Administered Medication Codes Instruc tions Start Date Status Kenalog 40 mg/mL suspension for injection RxNorm: 5318700 1Milliliter 08/31/2018 A ctive Kenalog 40 mg/mL suspension for injection RxNorm: 8072100 Milliliter 11/05/2016 No longer Active Kenalog 40 mg/mL suspension for injection RxNorm: 9300038 1Milliliter 09/16/2014 N o longer Active ketorolac 60 mg/2 mL intramuscular solution RxNorm: 171209 2Milliliter 03/20/2014 N o longer Active Pneumovax 23 25 mcg/0.5 mL Injection RxNorm: 161059 Milliliter 07/13/2011 No longer Active Influenza Virus [...] 02/03/2012 VITAMIN DEFICIENCY ICD-9: 269.2 11/04/2011 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 07/13/2011 Postprandial bloating ICD-9: 787.3 [...] Ord64 K 3.8 mEq/L 12/06/2016 Comp Metabolic Qea378 NA 134 mEq/L 12/03/2016 Comp Metabolic Sro273 K Specimen 3+ Hemolyzed mEq/L 12/04/19 Comp Metabolic Ovq024 CL 106 mEq/L 12/03/2016 Comp Metabolic Xbc906 CO2 20.0 mEq/L 12/03/2016 Comp Metabolic Qpr177 AN ION GAP 16 12/03/2016 Comp Metabolic Vyk976 GL UCOSE 93 mg/dL 12/03/2016 Comp Metabolic Eon050 Cr eat 0.8 mg/dL 12/03/2016 Comp Metabolic Eyu147 eG FR 73 ml/min/1.73m2 12/03 Comp Metabolic Mks457 BUN 14 mg/dL 12/03/2016 Comp Metabolic Fkg879 B/ C Ratio 17.1 Ratio 12/03/2016 Comp Metabolic Xbh455 CA LCIUM 9.3 mg/dL 12/03/2016 Comp Metabolic Dup172 AL K PHOS 63 U/L 12/03/2016 Comp Metabolic Dva817 T(SGOT) 69 U/L 12/03/2016 Comp Metabolic Jmo276 AL T(SGPT) 33 U/L 12/03/2016 Comp Metabolic Mjt457 BI LI T 1.0 mg/dL 12/03/2016 Comp Metabolic Rdr451 AL BUMIN 4.3 g/dL 12/03/2016 Comp Metabolic Bip389 TP RO 6.7 g/dL 12/03/2016 Comp Metabolic Idj492 GL OB 2.4 g/dL 12/03/2016 Comp Metabolic Mji345 A/ G Ratio 1.7 Ratio 12/03/2016 Comp Metabolic Dug081 Os mo 268 mOsmo 12/03/2016 Comp Metabolic Onn368 NA 138 mEq/L 12/18/2015 Comp Metabolic Bog864 K 4.1 mEq/L 12/18/2015 Comp Metabolic Fjs037 CL 104 mEq/L 12/18/2015 Comp Metabolic Nsf599 CO2 22.0 mEq/L 12/18/2015 Comp Metabolic Zpr170 AN ION GAP 16 12/18/2015 Comp Metabolic Sjl810 GL UCOSE 89 mg/dL 12/18/2015 Comp Metabolic Jtk736 Cr eat 0.6 mg/dL 12/18/2015 Comp Metabolic Dls291 eG FR 99 ml/min/1.73m2 12/17 Comp Metabolic Qzz698 BUN 15 mg/dL 12/18/2015 Comp Metabolic Hhy743 B/ C Ratio 23.8 Ratio 12/18/2015 Comp Metabolic Rfu985 CA LCIUM 10.4 mg/dL 12/18/2015 Comp Metabolic Dwn571 AL K PHOS 77 U/L 12/18/2015 Comp Metabolic Xyt098 T(SGOT) 19 U/L 12/18/2015 Comp Metabolic Ior298 AL T(SGPT) 17 U/L 12/18/2015 Comp Metabolic Ksb523 BI LI T 0.8 mg/dL 12/18/2015 Comp Metabolic Wmx689 AL BUMIN 4.3 g/dL 12/18/2015 Comp Metabolic Ybe701 TP RO 6.7 g/dL 12/18/2015 Comp Metabolic Nkj757 GL OB 2.4 g/dL 12/18/2015 Comp Metabolic Aat211 A/ G Ratio 1.7 Ratio 12/18/2015 Comp Metabolic Nfx506 Os mo 276 mOsmo 12/18/2015 Cbc With [...] 29.5 pg 12/18/2015 Cbc With Differential Ord2 [place]% 9.4 % 12/18/2015 Cbc With Differential Ord2 [...] 2.57 K/ul 12/18/2015 Cbc With Differential Ord2 [place] ABS# 0.8 K/ul 12/18/2015 Cbc With Differential Ord2 Eos ABS# 0.1 K/ul 12/18/2015 Cbc With Differential Ord2 Baso ABS# 0.0 K/ul 12/18/2015 Cbc With Differential Ord2 New Analyzer Notice Please note new ref ranges s tarting 10-15-2015 due to implemntation of new five part differential hematolgy analyzer. 12/18/2015 Total T3 Ord42 TT3 1.0 ng/ml 07/10/2015 Free T4 Oxz666 FREE T4 0.90 ng/dL 07/09/2015 Free T3 Ipb265 Free T3 2.92 pg/ml 07/09/2015 Tsh Ord6 hTSH II 1.18 uIU/mL 07/09/2015 URINALYSIS NONAUTO W/O SCOPE 21340 Specific [place] 1.005 DateTime(Free Text in Aprima) URINALYSIS NONAUTO W/O SCOPE 05304 PH 6 DateTime(Free Text in Aprima) URINALYSIS NONAUTO W/O SCOPE 48421 GLUCOSE neg DateTime(Free Dano t in Aprima) URINALYSIS NONAUTO W/O SCOPE 97762 Protein neg DateTime(Free Dano t in Aprima) URINALYSIS NONAUTO W/O SCOPE 04316 Blood neg DateTime(Free Dano t in Aprima) URINALYSIS NONAUTO W/O SCOPE 55194 Bilirubin neg DateTime(Free Dano t in Aprima) URINALYSIS NONAUTO W/O SCOPE 63493 Ketones neg DateTime(Free Dano t in Aprima) URINALYSIS NONAUTO W/O SCOPE 45605 Urobilinogen neg DateTime(Free Text in Aprima) URINALYSIS NONAUTO W/O SCOPE 28188 Nitrite neg DateTime(Free Dano t in Aprima) URINALYSIS NONAUTO W/O SCOPE 25376 Leukocytes neg DateTime(Free Text in Aprima) Review [...] clear 07/13/2011 None Procedures Procedure Codes Date THER/PROPH/DIAG INJ SC/IM CPT-4: 33614 08/31/2018 ADMIN INFLUENZA VIRU S VAC CPT-4: G0008 07/06/2018 FLU VACC PRSV FREE I NC ANTIG Formatting Model/CDA Sections, Assigned to/Kimberley Fagan CPT-4: [id number] 07/06/2018 ADMIN INFLUENZA VIRU S VAC CPT-4: G0008 07/05/2017 FLU VACC PRSV FREE I NC ANTIG CPT-4: 76508 07/05/2017 THER/PROPH/DIAG INJ SC/IM CPT-4: 50582 11/05/2016 TRIAMCINOLONE ACET I [place] NOS CPT-4: J3301 11/05/2016 TRIAMCINOLONE ACET I [place] NOS CPT-4: J3301 09/16/2014 DRAIN/INJECT JOINT/B URSA CPT-4: 08037 09/16/2014 KETOROLAC TROMETHAMI NE INJ CPT-4: J1885 03/20/2014 URINALYSIS NONAUTO W /O SCOPE CPT-4: 17860 12/10/2013 PRESCRIP TRANSMIT A ERX SY CPT-4: G8553 09/17/2013 PRESCRIP TRANSMIT A ERX SY CPT-4: G8553 06/08/2012 TRIAMCINOLONE ACET I [place] NOS CPT-4: J3301 03/16/2012 INJ TRIGGER POINT 1/ 2 MUSCL CPT-4: 96702 03/16/2012 PRESCRIP TRANSMIT A ERX SY CPT-4: G8553 03/16/2012 ADMIN INFLUENZA VIRU S VAC CPT-4: G0008 07/13/2011 FLULAVAL VACC, 3 YRS & >, IM CPT-4: Q2036 07/13/2011 ADMIN PNEUMOCOCCAL V ACCINE SNOMED CT: 11503726 CPT-4: G0009 07/13/2011 Pneumococcal Polysac charide Vaccine, 23-Valent, Ad CPT-4: 20743 07/13/2011 Vital Signs Date Vital 08/31/2018 Blood Pressure 1: 148/76 Code: 8480-6 BMI: 37.0 Code: 71434-1 Heart Rate 1: 60 bpm Height: 5'3" SpO2: 98% Weight: 209 lbs 08/14/2018 Blood Pressure 1: 140/80 Code: 8480-6 BMI: 37.2 Code: 32099-6 Heart Rate 1: 76 bpm Height: 5'3" SpO2: 96% Weight: 210 lbs 05/22/2018 Blood Pressure 1: 150/62 Code: 8480-6 BMI: 36.7 Code: 00452-2 Heart Rate 1: 74 bpm Height: 5'3" SpO2: 98% Weight: 207 lbs 11/18/2017 Blood Pressure 1: 122/66 Code: 8480-6 BMI: 35.8 Code: 03036-0 Heart Rate 1: 59 bpm Height: 5'3" SpO2: 97% Weight: 202 lbs 08/03/2017 Blood Pressure 1: 122/60 Code: 8480-6 BMI: 36.0 Code: 96806-3 Heart Rate 1: 60 bpm Height: 5'3" SpO2: 97% Weight: 203 lbs 07/05/2017 Blood Pressure 1: 140/76 Code: 8480-6 BMI: 36.0 Code: 22480-6 Heart Rate 1: 58 bpm Height: 5'3" SpO2: 98% Weight: 203 lbs 12/02/2016 Blood Pressure 1: 122/70 Code: 8480-6 BMI: 34.4 Code: 91996-3 Heart Rate 1: 66 bpm Height: 5'3" SpO2: 99% Temperature: 36.4 (C ) / 97.5 (F) Weight: 194 lbs 11/22/2016 Blood Pressure 1: 102/60 Code: 8480-6 BMI: 34.2 Code: 18132-2 Heart Rate 1: 110 bpm Height: 5'3" SpO2: 98% Temperature: 36.7 (C ) / 98.0 (F) Weight: 193 lbs 11/05/2016 Blood Pressure 1: 140/62 Code: 8480-6 BMI: 36.1 Code: 03257-8 Heart Rate 1: 102 bpm Height: 5'3" SpO2: 97% Temperature: 37.1 (C ) / 98.7 (F) Weight: 204 lbs 07/22/2016 Blood Pressure 1: 158/80 Code: 8480-6 Blood Pressure 1: 160/76 Code: 8480-6 BMI: 36.8 Code: 54969-6 Heart Rate 1: 56 bpm Height: 5'3" SpO2: 98% Weight: 208 lbs 05/19/2016 Blood Pressure 1: 150/78 Code: 8480-6 Blood Pressure 1: 122/69 Code: 8480-6 BMI: 37.0 Code: 94092-8 Heart Rate 1: 61 bpm Height: 5'3" SpO2: 98% Weight: 209 lbs 02/13/2016 Blood Pressure 1: 140/76 Code: 8480-6 BMI: 36.8 Code: 06068-6 Heart Rate 1: 64 bpm Height: 5'3" SpO2: 97% Weight: 208 lbs 01/13/2016 Blood Pressure 1: 170/70 Code: 8480-6 BMI: 36.8 Code: 72631-7 Heart Rate 1: 65 bpm Height: 5'3" SpO2: 95% Weight: 208 lbs 01/02/2016 Blood Pressure 1: 150/88 Code: 8480-6 BMI: 36.8 Code: 43404-4 Heart Rate 1: 61 bpm Height: 5'3" SpO2: 98% Weight: 208 lbs 12/18/2015 Blood Pressure 1: 148/90 Code: 8480-6 BMI: 37.6 Code: 53110-9 Heart Rate 1: 64 bpm Height: 5'3" SpO2: 96% Weight: 212 lbs 09/08/2015 Blood Pressure 1: 130/88 Code: 8480-6 BMI: 37.0 Code: 95036-0 Heart Rate 1: 62 bpm Height: 5'3" SpO2: 97% Weight: 209 lbs 07/09/2015 Blood Pressure 1: 142/82 Code: 8480-6 BMI: 36.4 Code: 13996-9 Heart Rate 1: 66 bpm Height: 5'3" SpO2: 97% Weight: 205 lbs 5 oz 01/16/2015 Blood Pressure 1: 122/80 Code: 8480-6 BMI: 35.6 Code: 13083-0 Heart Rate 1: 67 bpm Height: 5'3" SpO2: 98% Weight: 201 lbs 01/03/2015 Blood Pressure 1: 122/70 Code: 8480-6 BMI: 35.6 Code: 70414-9 Heart Rate 1: 61 bpm Height: 5'3" Respiratory Rate: 16 bpm SpO2: 98% Weight: 201 lbs 09/16/2014 Blood Pressure 1: 132/78 Code: 8480-6 BMI: 34.9 Code: 08857-5 Heart Rate 1: 56 bpm Height: 5'3" Weight: 197 lbs 08/15/2014 Blood Pressure 1: 152/80 Code: 8480-6 Blood Pressure 2: 160/82 Code: 8480-6 BMI: 34.0 Code: 90713-7 Heart Rate 1: 75 bpm Height: 5'3" Weight: 192 lbs 06/12/2014 Blood Pressure 1: 136/82 Code: 8480-6 BMI: 34.9 Code: 70515-7 Heart Rate 1: 58 bpm Height: 5'3" SpO2: 96% Weight: 197 lbs 03/20/2014 Blood Pressure 1: 140/72 Code: 8480-6 BMI: 34.9 Code: 20781-2 Heart Rate 1: 60 bpm Height: 5'3" Weight: 197 lbs 12/10/2013 Blood Pressure 1: 132/78 Code: 8480-6 BMI: 35.1 Code: 97208-9 Heart Rate 1: 68 bpm Height: 5'3" Weight: 198 lbs 09/17/2013 Blood Pressure 1: 128/78 Code: 8480-6 BMI: 34.9 Code: 79861-1 Heart Rate 1: 68 bpm Height: 5'3" Weight: 197 lbs 05/21/2013 Blood Pressure 1: 128/82 Code: 8480-6 BMI: 35.6 Code: 40533-4 Heart Rate 1: 80 bpm Height: 5'3" Weight: 201 lbs 01/17/2013 Blood Pressure 1: 138/72 Code: 8480-6 BMI: 36.7 Code: 16948-4 Heart Rate 1: 60 bpm Height: 5'3" [...] 1: 140/78 Code: 8480-6 BMI: 40.0 Code: 24958-1 Heart Rate 1: 64 bpm Height: 5'3" Respiratory Rate: 16 bpm Weight: 226 lbs 11/04/2011 Blood Pressure 1: 136/76 Code: 8480-6 Heart Rate 1: 68 bpm Respiratory Rate: 16 bpm Weight: 226 lbs 07/13/2011 Blood Pressure 1: 142/80 Code: 8480-6 BMI: 40.0 Code: 45163-5 Heart Rate 1: 60 bpm Height: 5'4" [...] Encounter Performer Loca tion Codes Date () [id number] EST. P ATIENT, LEVEL III Diagnosis: Nasal congestion[ICD10: R09.81] Diagnosis: Other allergic rhinitis[ICD10: J30.89] Юлия Manuel MD, [facility] CPT-4: 48739 08/31/2018 ([id number]) [id number] EST. P ATIENT, LEVEL III Diagnosis: Acute recurrent maxillary sinusitis[ICD10: J01.01] Юлия Manuel MD, [facility] CPT-4: 66346 08/14/2018 [id number] EST. PATIENT, LEVEL III Diagnosis: Pain in right shoulder[ICD10: M25.511] Diagnosis: Pain in right arm[ICD10: M79.601] Willow Manuel MD, [facility] CPT-4: 81273 05/22/2018 ([id number] EST. 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 PATIENT, LEVEL III Diagnosis: Other specified intestinal infections[ICD10: A08.8] Willow Manuel MD, [facility] CPT-4: 66204 08/03/2017 ([id number] EST. 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 P ATIENT, LEVEL III Diagnosis: Essential (primary) hypertension[ICD10: I10] Юлия Manuel MD, [facility] CPT-4: 31929 12/02/2016 ([id number]) 32779 EST. P ATIENT, LEVEL III Diagnosis: Essential (primary) hypertension[ICD10: I10] Diagnosis: Allergic rhinitis due to pollen[ICD10: J30.1] Giuliana Manuel MD, C CPT-4: 62365 11/22/2016 40913 EST. PATIENT, LEVEL III Diagnosis: Acute laryngopharyngitis[ICD10: J06.0] Diagnosis: Influenza due to unidentified influenza virus with other respiratory manifestations[ICD10: J11.1] Willow Manuel MD, [facility] CPT-4: 10695 11/05/2016 ([id number]) 30066 EST. P ATIENT, LEVEL III Diagnosis: Gastro-esophageal reflux disease without esophagitis[ICD10: K21.9] Diagnosis: Essential (primary) hypertension[ICD10: I10] Giuliana Manuel MD, [facility] CPT-4: 61570 07/22/2016 ([id number]) 03884 EST. P ATIENT, LEVEL IV Diagnosis: Essential (primary) hypertension[ICD10: I10] Diagnosis: Abdominal distension (gaseous)[ICD10: R14.0] Giuliana Manuel MD, [facility] CPT-4: 79495 05/19/2016 ([id number]) 13604 EST. P ATIENT, LEVEL III Diagnosis: Essential (primary) hypertension[ICD10: I10] Юлия Manuel MD, [facility] CPT-4: 56045 02/13/2016 ([id number]) 67569 EST. P ATIENT, LEVEL III Diagnosis: Essential (primary) hypertension[ICD10: I10] Юлия Manuel MD, [facility] CPT-4: 14323 01/13/2016 58702 EST. PATIENT, LEVEL IV Diagnosis: Essential (primary) hypertension[ICD10: I10] Diagnosis: Body mass index (BMI) 36.0-36.9, adult[ICD10: Z68.36] Willow Manuel MD, [facility] CPT-4: 52256 01/02/2016 ([id number]) 00935 EST. P ATIENT, LEVEL III Diagnosis: Essential (primary) hypertension[ICD10: I10] Юлия Manuel MD, [facility] CPT-4: 37665 12/18/2015 ([id number]) 28396 EST. P ATIENT, LEVEL IV Diagnosis: Essential (primary) hypertension[ICD10: I10] Diagnosis: Benign paroxysmal vertigo, bilateral[ICD10: H81.13] Diagnosis: Radiculopathy, cervical region[ICD10: M54.12] Giuliana Manuel MD, [facility] CPT-4: 63193 09/08/2015 ([id number]) 38835 EST. P ATIENT, LEVEL IV Diagnosis: Other specified nonscarring hair loss[ICD10: L65.8] Diagnosis: Myositis, unspecified[ICD10: M60.9] Diagnosis: Psoriasis, unspecified[ICD10: L40.9] Diagnosis: Essential (primary) hypertension[ICD10: I10] Giuliana Manuel MD, [facility] CPT-4: 83418 07/09/2015 ([id number]) 23526 EST. P ATIENT, LEVEL III Diagnosis: ESSENTIAL HYPERTENSION[ICD9: 401.9] Giuliana Manuel MD, [facility] CPT- 4: 78839 01/16/2015 ([id number]) 96368 EST. P ATIENT, LEVEL III Diagnosis: Shoulder pain[ICD9: 719.41] Diagnosis: ESSENTIAL HYPERTENSION[ICD9: 401.9] Diagnosis: PALPITATIONS[ICD9: 785.1] Giuliana Manuel MD, [facility] CPT-4: 06853 01/03/2015 ([id number]) 07046 EST. P ATIENT, LEVEL III Diagnosis: Sacroiliitis[ICD9: 720.2] Diagnosis: Back pain[ICD9: 724.5] Diagnosis: ESSENTIAL HYPERTENSION[ICD9: 401.9] Giuliana Manuel MD, [facility] CPT- 4: 82102 09/16/2014 ([id number]) 78646 EST. P ATIENT, LEVEL IV Diagnosis: ESSENTIAL HYPERTENSION[ICD9: 401.9] Diagnosis: Arrhythmia[ICD9: 427.9] Diagnosis: Nausea[ICD9: 787.02] Giuliana Manuel MD, [facility] CPT-4: 29845 08/15/2014 ([id number]) 56517 EST. P ATIENT, LEVEL IV Diagnosis: ESSENTIAL HYPERTENSION[ICD9: 401.9] Diagnosis: Back pain[ICD9: 724.5] Diagnosis: Allergic reaction[ICD9: 995.3] Giuliana Manuel MD, [facility] CPT-4: 05054 06/12/2014 ([id number]) 61861 EST. P ATIENT, LEVEL III Diagnosis: Thoracic back pain[ICD9: 724.1] Diagnosis: MYALGIA AND MYOSITIS[ICD9: 729.1] Giuliana Manuel MD, [facility] CPT-4: 53179 03/20/2014 ([id number]) 19704 EST. P ATIENT, LEVEL IV Diagnosis: HYPERLIPIDEMIA[ICD9: 272.4] Diagnosis: ESSENTIAL HYPERTENSION[SNOMED: 69964447] Diagnosis: ABDOM PAIN NOS SITE[ICD9: 789.00] Giuliana Manuel MD, [facility] CPT-4: 41575 12/10/2013 ([id number]) 19151 EST. P ATIENT, LEVEL IV Diagnosis: ESSENTIAL HYPERTENSION[SNOMED: 73223005] Diagnosis: HYPERLIPIDEMIA[ICD9: 272.4] Giuliana Manuel MD [facility] CPT-4: 23509 09/17/2013 ([id number]) 32164 EST. P ATIENT, LEVEL IV Diagnosis: ESSENTIAL HYPERTENSION[SNOMED: 61153834] Diagnosis: OBESITY[ICD9: 278.00] Diagnosis: Back pain[ICD9: 724.5] Giuliana Manuel MD [facility] CPT-4: 26208 05/21/2013 ([id number]) 52272 EST. P ATIENT, LEVEL IV Diagnosis: ESSENTIAL HYPERTENSION[SNOMED: 16266606] Diagnosis: HYPERLIPIDEMIA[ICD9: 272.4] Diagnosis: Abdominal pain[ICD9: 789.00] Diagnosis: BENIGN PAROXYSMAL VERTIGO[ICD9: 386.11] Giuliana Manuel MD, [facility] CPT-4: 29697 01/17/2013 ([id number]) 01222 EST. P ATIENT, LEVEL IV Diagnosis: ESSENTIAL HYPERTENSION[SNOMED: 55708180] Diagnosis: BENIGN PAROXYSMAL VERTIGO[ICD9: 386.11] Diagnosis: Hair loss[ICD9: 704.00] Diagnosis: Vitamin d deficiency[ICD9: 268.9] Diagnosis: Bleeding from the nose[ICD9: 784.7] Giuliaan Manuel MD, [facility] CPT- 4: 98648 09/20/2012 39182 EST. PATIENT, LEVEL IV Diagnosis: BPPV (benign paroxysmal positional vertigo)[ICD9: 386.11] Diagnosis: HYPERLIPIDEMIA[ICD9: 272.4] Diagnosis: ESSENTIAL HYPERTENSION[SNOMED: 96592322] Giuliana Manuel MD, C CPT-4: 18849 06/08/2012 ([id number]) 61976 EST. P ATIENT, LEVEL IV Diagnosis: BPPV (benign paroxysmal positional vertigo)[ICD9: 386.11] Diagnosis: Diverticulitis[ICD9: 562.11] Diagnosis: Abdominal pain[ICD9: 789.00] Giuliana Manuel MD, [facility] CPT-4: 86287 04/10/2012 ([id number]) 91519 EST. P ATIENT, LEVEL III Diagnosis: Neck pain[ICD9: 723.1] Diagnosis: Acute upper back pain[ICD9: 724.1] Giuliana Maunel MD, [facility] CPT- 4: 18871 03/16/2012 ([id number]) 11818 EST. P ATIENT, LEVEL IV Diagnosis: HYPERLIPIDEMIA[ICD9: 272.4] Diagnosis: ESSENTIAL HYPERTENSION[SNOMED: 03630683] Diagnosis: Constipation - functional[ICD9: 564.09] Giuliana Manuel MD, [facility] CPT-4: 01228 02/03/2012 ([id number]) 91615 EST. P ATIENT, LEVEL IV Diagnosis: HYPERLIPIDEMIA[ICD9: 272.4] Diagnosis: VITAMIN DEFICIENCY[ICD9: 269.2] Diagnosis: ESSENTIAL HYPERTENSION[SNOMED: 30984099] Giuliana Manuel MD, C CPT-4: 71452 11/04/2011 88573 EST. PATIENT, LEVEL IV Diagnosis: Abdominal pain[ICD9: 789.00] Diagnosis: Postprandial bloating[ICD9: 787.3] Diagnosis: VAC STREP PNEUMONIAE-FLU[ICD9: V06.6] Diagnosis: OBESITY[ICD9: 278.00] Diagnosis: DIETARY SURVEIL/SHADE BANDER[ICD9: V65.3] Diagnosis: Seasonal allergies[ICD9: 477.9] [facility] CPT-4: 87943 07/13/2011 Plan of Care Planned Activity Notes [...] in the nasal steroid allergy spray. 08/31/2018 Patient Education: Patient Medication Summary Completed [...] not improve. 05/22/2018 Appointment: Willow Garcia WPtel: [address] [place], [place] [address] (15 min) Moderate 05/22/2018 Patient Education: Patient [...] not improving. 11/18/2017 Appointment: Giuliana Manuel WPtel: [facility]4 [facility] (15 min) Moderate 11/18/2017 Patient Education: Patient Medication Summary Completed 11/18/2017 Appointment: Giuliana Manuel WPtel: [facility]9 [facility] (15 min) Moderate 11/07/2017 Visit Plan: Diarrhea [...] not improved. 08/03/2017 Appointment: Willow Garcia WPtel: [facility] (30 min) Complex 08/03/2017 Patient Education: [...] D daily. 07/05/2017 Appointment: Giuliana Manuel WPtel: [facility]0 [facility] (15 min) Moderate 07/05/2017 Patient Education: Patient Medication Summary Completed 07/05/2017 Patient Education: Obesity Completed 07/05/2017 Appointment: Giuliana Manuel WPtel: [address] [place], [place] [phone] (15 min) Moderate 06/27/2017 Appointment: Giuliana Manuel WPtel: [phone] [facility] (15 min) Moderate 06/21/2017 Appointment: Юлия Rojas WPtel: [phone] [phone] (30 min) Complex 12/23/2016 Visit Plan: Hypertension [...] HCTZ 12/02/2016 Appointment: Юлия Rojas WPtel: [phone] [phone] [place] (30 min) Complex 12/02/2016 Patient [...] days 11/22/2016 Appointment: Giul[phone] (15 min) Moderate 11/22/2016 Patient Education: Patient Medication Summary Completed 11/22/2016 Patient Education: Obesity Completed 11/22/2016 Visit Plan: Influenza - pt started on tamiflu - pt to start on anti-inflammatories, tylenol and monitor symptoms. Pt to call if not improving. Pt to alert any close contacts as to illness. 11/05/2016 App[facility]ment: [phone] ([facility] min) Complex 11/05/2016 Patient Education: [...] carafate 07/22/2016 Appointment: Giuliana Manuel [facility]el[phone] (15 min) Moderate 07/22/2016 Patient Education: Patient Medication Summary Completed 07/22/2016 Patient Education: Obesity Completed 07/22/2016 Care Plan: Referral Order SNOMED-CT : [id number] Pending 07/22/2016 Visit Plan: Hypertension - well [...] 05/19/2016 Patient Education: Obesity Completed 05/19/2016 Appointment: Mar Giuliana [facility]Ptel[phone] [facility] (15 min) Moderate 05/17/2016 Visit Plan: Hypertension - well con trolled - continue with current medications, continue with no added salt diet. Pt has been encouraged to exercise daily. The pt has been advised to call the office if there are any acute concerns about change in blood pressure readings at home. 02/13/2016 Appointment: Юлия Rojas WPtel[phone] [phone] (30 min) Complex 02/13/2016 Patient Education: [...] Obesity Completed 12/18/2015 Appointment: Giuliana Manuel WPtel: [phone] [facility] (15 min) Moderate 12/08/2015 Referral: Jared Lafleur [address] [facility] Referral Completed 10/17/2015 Visit Plan: Hypertension - [...] stress test. 09/08/2015 Appointment: Giuliana Manuel WPtel: [phone] [facility] (15 min) Moderate 09/08/2015 Patient Education: Patient Medication Summary Completed 09/08/2015 Patient Education: .Cervicalgia Neck Pain Completed 09/08/2015 Care Plan: Referral Order SNOMED-CT : [id number] Ordered 09/08/2015 Visit Plan: Hypertension - uncontro [...] checked today. 07/09/2015 Appointment: Giuliana Manuel WPtel: [facility]1 [facility]66[facility] (15 min) Moderate 07/09/2015 Patient Education: Patient Medication Summary Completed 07/09/2015 Appointment: Giuliana Manuel WPtel: [address] [place], [place] [phone] (15 min) Moderate 07/07/2015 Appointment: Giuliana Manuel WPtel: [address] [place], [place] [phone] Follow up 03/17/2015 Visit Plan: Hypertension - well con trolled - continue with current medications, continue with no added salt diet. Pt has been encouraged to exercise daily. The pt has been advised to call the office if there are any acute concerns about change in blood pressure readings at home. Palpitations resolved. 01/16/2015 Appointment: Giuliana Manuel WPtel: [facility]6 [facility] Other 01/16/2015 Patient Education: Patient Medication Summary [...] symptoms. 01/03/2015 Appointment: Giuliana Manuel WPtel: [phone] [facility] Follow up 01/03/2015 Patient Education: Patient Medication [...] Completed 09/16/2014 Appointment: Giuliana Manuel WPtel: [phone] [facility] Follow up 09/09/2014 Visit Plan: Hypertension - [...] symptoms worsen. 08/15/2014 Appointment: Giuliana Manuel [facility]Ptel[phone] [facility] Sick 08/15/2014 Patient Education: Patient Medication Summary Completed 08/15/2014 Patient Education: Hypertension Completed 08/15/2014 Care Plan: Referral Order SNOMED-CT : [id number] Ordered 08/15/2014 Appointment: Giuliana Manuel WPtel: [facility]5 [facility] Follow up 06/18/2014 Visit Plan: Back pain - referral to [facility] physical therapy. Rash - reaction [...] at home. 06/12/2014 Appointment: Giuliana Manuel WPtel: [facility]5 [facility] [facility] 06/12/2014 Patient Education: Patient Medication Summary Completed 06/12/2014 Patient Education: Hypertension Completed 06/12/2014 Care Plan: Referral Order SNOMED-CT : [id number] Ordered 06/12/2014 Visit Plan: Hypertension - well [...] spine xrays. 03/20/2014 Appointment: Giuliana Manuel WPtel: [facility] Follow [facility] 03/20/2014 Patient Education: Patient [...] a UTI 12/10/2013 Appointment: Giuliana Manuel WPtel: [phone] [facility] Follow up 12/10/2013 Patient Education: [...] weekly. 09/17/2013 Appointment: Giuliana Manuel [facility]Ptel: [phone] [facility] Follow up 09/17/2013 Patient Education: Patient [...] rub. 05/21/2013 Appointment: Giuliana Manuel WPtel: [phone] [facility] Follow up 05/21/2013 Patient Education: Patient Medication [...] vertigo. 01/17/2013 Appointment: Giuliana Manuel WPtel: [phone] [facility] Follow up 01/17/2013 Patient Education: Patient [...] if needed. 09/20/2012 Appointment: Giuliana Manuel WPtel: [address] [place], [place] [phone] Follow up 09/20/2012 Patient Education: Patient Medication [...] intolerance begin. 06/08/2012 Appointment: Giuliana Manuel WPtel: [address] [place], [place] [phone] Follow up 06/08/2012 Patient Education: Patient Medication [...] or popcorn. 04/10/2012 Appointment: Giuliana Manuel WPtel: [address] [place], [place] [phone] Other 04/10/2012 Patient Education: Patient Medication Summary [...] if not better by Tuesday. 03/16/2012 Appointment: EncinoTonia guzmany WPtel: [phone] [facility] Other 03/16/2012 Patient Education: Patient Medication [...] regimen. 02/03/2012 Appointment: Giuliana Manuel WPtel: [phone] [facility] Other 02/03/2012 Patient Education: Patient [...] a week. 11/04/2011 Appointment: Giuliana Manuel WPtel: [facility] [address] Follow up 11/04/2011 Patient Education: Patient Medication [...] shot 07/13/2011 Appointment: Giuliana Manuel WPtel: [phone] [place] [phone] Other 07/13/2011 Patient Education: Patient Medication Summary Completed 07/13/2011 Patient Education: .Amazing yana [employer] tic meal planning guide Completed 07/13/2011 Referral: Jared Lafleur [address] [place], [place] [id number] [place] Referral Appointment Requested Referral: Duarte Catalan Referral Appointment Requested Referral: Dr. Willams WPtel: [phone] [facility] [place] Referral Initiated Referral: [facility] WPtel: [phone] [facility] [id number] [place] Referral Initiated Instructions Comment Add a [...] . Back pain - referr al to [facility] physical therapy. Rash - reaction [...]
--- OUTSIDE RECORDS SUMMARY | 2020-01-21 14:28 | XMS REPORT | CCD ---
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0 [...] pain ICD-9: 789.00 Active 07/13/2011 Unknown 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 Active 07/13/2011 Unknown OBESITY ICD-9: 278.00 Active 07/13/2011 Unknow n Postprandial bloating ICD-9: 787.3 Active 07/13/2011 Unknown Seasonal allergies ICD- 9: 477.9 Active 07/13/2011 Unknown VAC STREP PNEUMONIAE -FLU ICD-9: V06.6 Active 07/03 Unknown Problems Condition Codes Effectiv e Dates Condition Status Acute recurrent maxi llary sinusitis ICD-9: 461.0 [...] Abdominal pain ICD-9: 789.00 07/13/2011 Active 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 07/13/2011 Active OBESITY ICD-9: 278.00 07/13/2011 Active Postprandial bloating ICD-9: 787.3 07/13/2011 Active Seasonal allergies ICD- 9: 477.9 07/13/2011 Active VAC STREP PNEUMONIAE -FLU ICD-9: V06.6 07/13/2011 Active Medications Medication Codes Instruc tions Start Date Stop Date Sta tus Fill Instructions clonidine HCl 0.1 mg tablet RxNorm: 164299 1/2 Tablet(s) PO BID 08/16/2018 08/10/2019 Active amoxicillin 500 mg t ablet RxNorm: 481755 1 Tablet(s) PO TID 08/14/2018 08/20/2018 Active losartan 25 mg tablet RxNorm: 674866 1 Tablet(s) PO BID 05/02/2018 04/26/2019 Active losartan 25 mg tablet RxNorm: 908365 1 Tablet(s) PO BID 05/02/2018 05/01/2018 Inactive losartan 25 mg tablet RxNorm: 507971 1 Tablet(s) PO BID 01/30/2018 05/01/2018 Inactive Vitamin D 2,000 unit capsule RxNorm: 1 Capsule(s) PO daily 11/18/2017 No Stop Date Active doxazosin 1 mg tablet RxNorm: 619009 1 Tablet(s) PO daily at midnight 11/18/2017 11/12/2018 Ac tive midnight hydrochlorothiazide 12.5 mg tablet RxNorm: 916897 1 Tablet(s) PO daily 11/18/2017 11/12/2018 Ac tive atenolol 25 mg tablet RxNorm: 221914 1 Tablet(s) PO daily 11/18/2017 11/12/2018 Active famotidine 40 mg tablet RxNorm: 009293 1 Tablet(s) PO daily TAKE 1 TABLET BY MO [facility] EVERY MORNING 11/18/2017 11/12/2018 Active - Ref: [id number] atenolol 25 mg tablet RxNorm: 228046 1 Tablet(s) PO BID managed by Dr Lafleur 11/18/2017 11/17/2017 In active clonidine HCl 0.1 mg tablet RxNorm: 405433 1/2 Tablet(s) PO BID 11/18/2017 08/15/2018 Inactive losartan 25 mg tablet RxNorm: 537355 1 Tablet(s) PO BID 11/18/2017 01/29/2018 Inactive hydrochlorothiazide 12.5 mg tablet RxNorm: 348803 1 Tablet(s) PO daily 10/28/2017 11/17/2017 In active famotidine 40 mg tablet RxNorm: 504054 TAKE 1 TABLET BY MOUTH EVERY MORNING 10/04/2017 11/17/2017 In active - Ref: [id number] clonidine HCl 0.1 mg tablet RxNorm: 398020 1/2 Tablet(s) PO BID 07/05/2017 11/17/2017 Inactive doxazosin 1 mg tablet RxNorm: 679065 1 Tablet(s) PO daily at midnight 07/05/2017 11/17/2017 In active midnight doxazosin 1 mg tablet RxNorm: 549476 1 Tablet(s) PO BID 12/02/2016 2017 Inactive midnight prednisone 20 mg tablet RxNorm: 800111 3 Tablet(s) PO daily 11/22/2016 11/26/2016 Inactive Tessalon Perles 100 mg capsule RxNorm: 865394 1 -2 Capsule(s) PO TI D as needed cough 11/19/2016 No Stop Date Active Zithromax Z-Jeff 250 mg tablet RxNorm: 507507 1 Tablet(s) PO UD 11/19/2016 12/01/2016 Inactive z pack as directed Tamiflu 75 mg capsule RxNorm: 283346 1 Capsule(s) PO BID 11/05/2016 11/09/2016 Inactive Kenalog 40 mg/mL karl mendezon for injection RxNorm: 5642046 Milliliter(s) Inj 11/05/2016 11/05/2016 In active Tessalmarylou Perles 100 mg capsule RxNorm: 683237 1 -2 Capsule(s) PO TI D as needed cough 11/04/2016 11/18/2016 Inactive famotidine 40 mg tablet RxNorm: 472191 1 Tablet(s) PO QAM 10/25/2016 10/03/2017 Inactive famotidine 40 mg tablet RxNorm: 409946 1 Tablet(s) PO QAM 08/02/2016 10/24/2016 Inactive Carafate 1 gram tablet RxNorm: 372639 1 Tablet(s) PO TID DISSOLVE THE PILL IN 10ML OF WATER 07/22/2016 10/19/2016 Inactive clonidine HCl 0.1 mg tablet RxNorm: 839205 1 Tablet(s) PO BID an d 1 tablet as needed 07/22/2016 12/01/2016 Inactive aspirin 81 mg tablet ,delayed release RxNorm: 478899 1 Tablet(s) PO QHS 05/19/2016 No Stop Date Active Cinnamon 1000 mg RxNorm: 1 PO daily 05/19/2016 No Stop Date Active losartan 25 mg tablet RxNorm: 005893 1 Tablet(s) PO BID 05/19/2016 11/17/2017 Inactive atenolol 25 mg tablet RxNorm: 660831 1.5 Tablet(s) PO BID 02/13/2016 07/21/2016 Inactive losartan 25 mg tablet RxNorm: 216400 2 Tablet(s) PO BID 01/13/2016 05/11/2016 Inactive Cardizem CD 240 mg c apsule,extended release RxNorm: 981157 1 Capsule(s) PO daily 01/13/2016 02/12/2016 In active losartan 100 mg tablet RxNorm: 330816 1/2 Tablet(s) PO BID 01/08/2016 01/12/2016 Inactive losartan 25 mg tablet RxNorm: 223074 2 Tablet(s) PO QPM 1 Tablet(s) PO QPM 12/18/2015 01/07/2016 In active atenolol 25 mg tablet RxNorm: 737625 1.5 Tablet(s) PO BID TAKE ONE TABLET BY MOUTH TWICE A DAY 12/18/2015 01/12/2016 Inactive atenolol 25 mg tablet RxNorm: 483412 Tablet(s) TAKE ONE TABLET BY MOUTH TWICE A DAY 11/14/2015 12/17/2015 Inactive losartan 25 mg tablet RxNorm: 543006 Tablet(s) 1 Tablet(s) PO QPM 11/14/2015 12/17/2015 Inactive spironolactone 25 mg tablet RxNorm: 470862 1 Tablet(s) PO daily 11/14/2015 12/14/2015 Inactive atenolol 25 mg tablet RxNorm: 616048 TAKE ONE TABLET BY MOUTH TWICE A DAY 08/07/2015 11/13/2015 In active atenolol 25 mg tablet RxNorm: 049899 1 Tablet(s) PO daily TAKE ONE TABLET BY MOUTH TWICE DAILY 08/06/2015 08/06/2015 Inactive Generic For:TENORMIN 25 MG TABLET 05/05/2015 10:00:22 AM atenolol 25 mg tablet RxNorm: 131992 1 Tablet(s) PO daily TAKE ONE TABLET BY MOUTH TWICE DAILY 08/06/2015 08/05/2015 Inactive Generic For:TENORMIN 25 MG TABLET 05/05/2015 10:00:22 AM betamethasone diprop ionate 0.05 % topical ointment RxNorm: 656406 1 TOP TID as needed rash 07/09/2015 05/18/2016 Inactive betamethasone diprop ionate 0.05 % topical ointment RxNorm: 131864 1 TOP TID as needed rash 07/09/2015 07/08/2015 Inactive spironolactone 25 mg tablet RxNorm: 858555 1 Tablet(s) PO daily 07/09/2015 07/08/2015 Inactive spironolactone 25 mg tablet RxNorm: 199809 1 Tablet(s) PO daily 07/09/2015 11/13/2015 Inactive losartan 25 mg tablet RxNorm: 347998 Tablet(s) 1 Tablet(s) PO QPM 05/27/2015 11/13/2015 Inactive atenolol 25 mg tablet RxNorm: 466385 TAKE ONE TABLET BY MOUTH TWICE DAILY 05/05/2015 08/05/2015 In active Generic For:TENORMIN 25 MG TABLET 05/05 10:00:22 AM hydrochlorothiazide 25 mg tablet RxNorm: 902901 1/2 Tablet(s) PO BID 02/17/2015 07/08/2015 Inactive Generic For:HYDRODIURIL 25 MG TABLET sulfamethoxazole 800 mg-trimethoprim 160 mg tablet RxNorm: 145681 1 Tablet(s) PO BID 01/16/2015 01/25/2015 Inactive losartan 25 mg tablet RxNorm: 662146 1 Tablet(s) PO QPM 12/09/2014 05/26/2015 Inactive Kenalog 40 mg/mL karl pension for injection RxNorm: 9157422 1 Milliliter(s) Inj 09/16/2014 09/16/2014 In active prednisone 20 mg tablet RxNorm: 622257 3 Tablet(s) PO daily 09/16/2014 09/18/2014 Inactive losartan 25 mg tablet RxNorm: 883096 1 Tablet(s) PO QPM 08/15/2014 12/08/2014 Inactive hydrochlorothiazide 25 mg tablet RxNorm: 173159 TAKE 1/2 TABLET BY MO UTH TWICE DAILY 08/13/2014 02/08/2015 Inactive Generic For:HYDRODIURIL 25 MG TABLET atenolol 25 mg tablet RxNorm: 312544 TAKE ONE TABLET BY MOUTH TWICE DAILY 05/07/2014 05/01/2015 In active Generic For:TENORMIN 25 MG TABLET ketorolac 60 mg/2 mL intramuscular solution RxNorm: 128465 2 Milliliter(s) IM 03/20/2014 03/20/2014 In active hydrochlorothiazide 25 mg tablet RxNorm: 147310 Tablet(s) PO TAKE 1/2 TABLET BY MOUTH TWICE DAILY 02/14/2014 08/12/2014 Inactive Generic For:HYDRODIURIL 25 MG TABLET Generic For:HYDRODIURIL 25 MG TABLET 02/14/2014 3:45:03 PM atorvastatin 10 mg t ablet RxNorm: 410932 1 Tablet(s) PO TIW 09/17/2013 03/19/2014 Inactive atorvastatin 10 mg t ablet RxNorm: 193587 tablet oral 09/17/2013 06/04/2015 Inactive hydrochlorothiazide 25 mg tablet RxNorm: 119914 Tablet(s) PO TAKE 1/2 TABLET BY MOUTH TWICE DAILY 08/06/2013 02/13/2014 Inactive Generic For:HYDRODIURIL 25 MG TABLET Generic For:HYDRODIURIL 25 MG TABLET 08/06/2013 1:52:35 PM amoxicillin 500 mg t ablet RxNorm: 167410 2 Tablet(s) PO 2 tabl ets PO 1 hour before dental procedure. 07/26/2013 07/25/2013 Inactive amoxicillin 500 mg t ablet RxNorm: 605337 2 Tablet(s) PO 2 tabl ets PO 1 hour before dental procedure. 07/26/2013 07/26/2013 Inactive methotrexate sodium 2.5 mg tablet RxNorm: 000026 tablet oral 07/13/2013 01/15/2015 Inactive atenolol 25 mg tablet RxNorm: 177723 Tablet(s) PO TAKE ONE TABLET BY MOUTH TW ICE DAILY 05/01/2013 05/06/2014 Inactive Generic For:TENORMIN 25 MG TABLET hydrochlorothiazide 25 mg tablet RxNorm: 937421 Tablet(s) PO TAKE 1/2 TABLET BY MOUTH TWICE DAILY 11/21/2012 08/05/2013 Inactive Generic For:HYDRODIURIL 25 MG TABLET atenolol 25 mg tablet RxNorm: 816789 Tablet(s) PO TAKE ONE TABLET BY MOUTH TW ICE DAILY 10/02/2012 04/30/2013 Inactive Generic For:TENORMIN 25 MG TABLET gemfibrozil 600 mg t ablet RxNorm: 477866 1 Tablet(s) PO BID 06/08/2012 10/08/2012 Inactive meclizine 25 mg tablet RxNorm: 938102 1 Tablet(s) PO Q4 PRN 06/08/2012 09/05/2012 Inactive prednisone 10 mg Tab RxNorm: 030093 2 Tablet(s) PO daily 03/16/2012 03/20/2012 Inactive atorvastatin 10 mg Tab RxNorm: 982367 1 Tablet(s) PO daily 12/21/2011 12/20/2011 Inactive atorvastatin 10 mg Tab RxNorm: 859400 1 Tablet(s) PO daily 12/21/2011 06/08/2012 Inactive methotrexate sodium 2.5 mg Tab RxNorm: 594188 Tablet(s) PO 11/16/2011 06/12/2012 Inactive 3 on tuesday3 on hydrochlorothiazide 25 mg Tab RxNorm: 227776 1/2 Tablet(s) PO BID 11/01/2011 11/24/2012 Inactive hydrochlorothiazide 12.5 mg Cap RxNorm: 112738 Capsule(s) PO 11/01/2011 06/08/2012 Inactive TAKE ONE TABLET BY MOUTH TWICE DAILY;Gen sky For:MICROZIDE 12.5 MG CAPSULE hydrochlorothiazide 25 mg Tab RxNorm: 774523 1/2 Tablet(s) PO BID 11/01/2011 11/24/2012 Inactive hydrochlorothiazide 25 mg tablet RxNorm: 872194 1/2 Tablet(s) PO BID 11/01/2011 10/31/2011 Inactive hydrochlorothiazide 25 mg Tab RxNorm: 676645 1/2 Tablet(s) PO BID 11/01/2011 10/31/2011 Inactive atenolol 25 mg tablet RxNorm: 038252 Tablet(s) PO 10/04/2011 10/01/2012 Inactive TAKE ONE TABLET BY MOUTH TWICE DAILY;Generic For:TENORMIN 25 MG TABLET hydrochlorothiazide 12.5 mg Cap RxNorm: 009739 1 Capsule(s) PO BID 09/13/2011 10/31/2011 Inactive Influenza Virus Vacc ine 0.5 mL RxNorm: IM 07/13/2011 07/13/2011 Inactive Pneumovax 23 25 mcg/ 0.5 mL Injection RxNorm: 704973 Milliliter(s) Inj 07/13/2011 07/13/2011 In active Phenergan VC-Codeine 6.25 mg-5 mg-10 mg/5 mL syrup RxNorm: 977485 5 Milliliter(s) PO Q6 as needed No Start Date Active Wolf 3 Cap RxNorm: 1 Capsule(s) PO BID No Start Date Active Cinnamon 1000 mg RxNorm: 2 PO daily No Start Date Active atenolol 25 mg Tab RxNorm: 023740 1 Tablet(s) PO BID No Start Date 10/03/2011 Inactive niacin ER 500 mg Cap RxNorm: 836622 1 Capsule(s) PO daily No Start Date 06/08/2012 Inactive gemfibrozil 600 mg t ablet RxNorm: 094408 1 Tablet(s) PO BID No Start Date 06/07/2012 Inactive Vitamin C 500 mg Tab RxNorm: 426469 1 Tablet(s) PO daily No Start Date 07/21/2016 Inactive Zithromax Z-Jeff 250 mg tablet RxNorm: 179324 1 Tablet(s) PO UD No Start Date 11/18/2016 Inactive z pack as directed doxazosin 1 mg tablet RxNorm: 619636 1 Tablet(s) PO BID No Start Date 12/01/2016 Inactive vitamin E (dl, aceta te) 400 unit Cap RxNorm: 316469 1 Capsule(s) PO daily No Start Date 07/21/2016 Inactive famotidine 40 mg tablet RxNorm: 106134 1 Tablet(s) PO QAM No Start Date 08/01/2016 Inactive hydrochlorothiazide 25 mg Tab RxNorm: 027085 1/2 Tablet(s) PO BID No Start Date 09/12/2011 Inactive Tessalon Perles 100 mg capsule RxNorm: 475967 1 -2 Capsule(s) PO TI D as needed cough No Start Date 11/03/2016 Inactive aspirin 81 mg Tab, D elayed Release RxNorm: 854609 1 Tablet(s) PO every other day No Start Date 05/18/2016 Inactive Cinnamon 1000 mg RxNorm: 2 PO daily No Start Date 05/18/2016 Inactive clonidine HCl 0.1 mg tablet RxNorm: 223722 1 Tablet(s) PO QHS an d 1 Tablet as needed No Start Date 07/21/2016 Inactive niacin 500 mg tablet RxNorm: 672337 1 Tablet(s) PO QHS No Start Date 01/01/2015 Inactive multivitamin Tab RxNorm: 1 Tablet(s) PO daily No Start Date 07/21/2016 Inactive methotrexate sodium 2.5 mg Tab RxNorm: 632842 Tablet(s) PO No Start Date 11/15/2011 Inactive 3 on tuesday3 on T-Bio RxNorm: 1 PO daily No Start Date 05/18/2016 Inactive Vitamin D 2,000 unit Cap RxNorm: 1 Capsule(s) PO daily No Start Date 07/21/2016 Inactive hydrochlorothiazide 12.5 mg tablet RxNorm: 330529 1 Tablet(s) PO daily No Start Date 10/27/2017 Inactive Medication Administered Medication Codes Instruc tions Start Date Status Kenalog 40 mg/mL suspension for injection RxNorm: 6625418 Milliliter 11/05/2016 No longer Active Kenalog 40 mg/mL suspension for injection RxNorm: 0991472 1Milliliter 09/16/2014 N o longer Active ketorolac 60 mg/2 mL intramuscular solution RxNorm: 479299 2Milliliter 03/20/2014 N o longer Active Pneumovax 23 25 mcg/0.5 mL Injection RxNorm: 691471 Milliliter 07/13/2011 No longer Active Influenza Virus Vaccine 0.5 mL RxNorm: 07/13/2011 No longer Active Immunizations Vaccine Codes Date Status Influenza CVX: 141 07/06 completed Influenza CVX: 141 07/05 completed Influenza CVX: 141 07/22 completed Influenza CVX: 141 09/17 completed Influenza CVX: 141 10/13 completed Influenza CVX: 141 07/13 completed Pneumococcal (Adult) CVX: 33 07/13/2011 completed Assessments Condition Codes Effectiv e Dates Acute recurrent maxillary sinusitis ICD-10: J01.01 ICD-9: [...] 02/03/2012 VITAMIN DEFICIENCY ICD-9: 269.2 11/04/2011 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 07/13/2011 Postprandial bloating ICD-9: 787.3 07/13/2011 Seasonal allergies ICD-9: 477.9 07/13/2011 VAC STREP PNEUMONIAE-FLU ICD-9: V06.6 07/13/2011 Reason For Visit Reason For Visit Effective Dates Notes sinus congestion 08/14/2018 vaccination against influenza 07/06/2018 [...] Ord64 K 3.8 mEq/L 12/06/2016 Comp Metabolic Wuc869 NA 134 mEq/L 12/03/2016 Comp Metabolic Vne598 K Specimen 3+ Hemolyzed mEq/L 12/04/19 17 Comp Metabolic Gew156 CL 106 mEq/L 12/03/2016 Comp Metabolic Jkh910 CO2 20.0 mEq/L 12/03/2016 Comp Metabolic Vem099 AN ION GAP 16 12/03/2016 Comp Metabolic Rjp848 GL UCOSE 93 mg/dL 12/03/2016 Comp Metabolic Clo708 Cr eat 0.8 mg/dL 12/03/2016 Comp Metabolic Uhj611 eG FR 73 ml/min/1.73m2 12/03 Comp Metabolic Ona996 BUN 14 mg/dL 12/03/2016 Comp Metabolic Eto212 B/ C Ratio 17.1 Ratio 12/03/2016 Comp Metabolic Dyn211 CA LCIUM 9.3 mg/dL 12/03/2016 Comp Metabolic Pbl138 AL K PHOS 63 U/L 12/03/2016 Comp Metabolic Yzi464 T(SGOT) 69 U/L 12/03/2016 Comp Metabolic Glh957 AL T(SGPT) 33 U/L 12/03/2016 Comp Metabolic Ioh667 BI LI T 1.0 mg/dL 12/03/2016 Comp Metabolic Uvs623 AL BUMIN 4.3 g/dL 12/03/2016 Comp Metabolic Oxy350 TP RO 6.7 g/dL 12/03/2016 Comp Metabolic Meo631 GL OB 2.4 g/dL 12/03/2016 Comp Metabolic Qqc755 A/ G Ratio 1.7 Ratio 12/03/2016 Comp Metabolic Ikz492 Os mo 268 mOsmo 12/03/2016 Comp Metabolic Ort039 NA 138 mEq/L 12/18/2015 Comp Metabolic Ibl982 K 4.1 mEq/L 12/18/2015 Comp Metabolic Nby194 CL 104 mEq/L 12/18/2015 Comp Metabolic Jae764 CO2 22.0 mEq/L 12/18/2015 Comp Metabolic Tms323 AN ION GAP 16 12/18/2015 Comp Metabolic Bah042 GL UCOSE 89 mg/dL 12/18/2015 Comp Metabolic Zft906 Cr eat 0.6 mg/dL 12/18/2015 Comp Metabolic Zbq436 eG FR 99 ml/min/1.73m2 12/17 Comp Metabolic Lcr498 BUN 15 mg/dL 12/18/2015 Comp Metabolic Dzt167 B/ C Ratio 23.8 Ratio 12/18/2015 Comp Metabolic Eiy156 CA LCIUM 10.4 mg/dL 12/18/2015 Comp Metabolic Cvy416 AL K PHOS 77 U/L 12/18/2015 Comp Metabolic Tum032 T(SGOT) 19 U/L 12/18/2015 Comp Metabolic Izp766 AL T(SGPT) 17 U/L 12/18/2015 Comp Metabolic Bkz009 BI LI T 0.8 mg/dL 12/18/2015 Comp Metabolic Jlz547 AL BUMIN 4.3 g/dL 12/18/2015 Comp Metabolic Dra437 TP RO 6.7 g/dL 12/18/2015 Comp Metabolic Rdh278 GL OB 2.4 g/dL 12/18/2015 Comp Metabolic Wgc165 A/ G Ratio 1.7 Ratio 12/18/2015 Comp Metabolic Zbz292 Os mo 276 mOsmo 12/18/2015 Cbc With [...] 29.5 pg 12/18/2015 Cbc With Differential Ord2 [place]% 9.4 % 12/18/2015 Cbc With Differential Ord2 [...] 2.57 K/ul 12/18/2015 Cbc With Differential Ord2 [place] ABS# 0.8 K/ul 12/18/2015 Cbc With Differential Ord2 Eos ABS# 0.1 K/ul 12/18/2015 Cbc With Differential Ord2 Baso ABS# 0.0 K/ul 12/18/2015 Cbc With Differential Ord2 New Analyzer Notice Please note new ref ranges s tarting 10-15-2015 due to implemntation of new five part differential hematolgy analyzer. 12/18/2015 Total T3 Ord42 TT3 1.0 ng/ml 07/10/2015 Free T4 Tfr385 FREE T4 0.90 ng/dL 07/09/2015 Free T3 Jvk630 Free T3 2.92 pg/ml 07/09/2015 Tsh Ord6 hTSH II 1.18 uIU/mL 07/09/2015 URINALYSIS NONAUTO W/O SCOPE 57898 Specific [place] 1.005 DateTime(Free Text in Aprima) URINALYSIS NONAUTO W/O SCOPE 84555 PH 6 DateTime(Free Text in Aprima) URINALYSIS NONAUTO W/O SCOPE 27627 GLUCOSE neg DateTime(Free Dano t in Aprima) URINALYSIS NONAUTO W/O SCOPE 65379 Protein neg DateTime(Free Dano t in Aprima) URINALYSIS NONAUTO W/O SCOPE 28503 Blood neg DateTime(Free Dano t in Aprima) URINALYSIS NONAUTO W/O SCOPE 98153 Bilirubin neg DateTime(Free Dano t in Aprima) URINALYSIS NONAUTO W/O SCOPE 97142 Ketones neg DateTime(Free Dano t in Aprima) URINALYSIS NONAUTO W/O SCOPE 21272 Urobilinogen neg DateTime(Free Text in Aprima) URINALYSIS NONAUTO W/O SCOPE 95531 Nitrite neg DateTime(Free Dano t in Aprima) URINALYSIS NONAUTO W/O SCOPE 56505 Leukocytes neg DateTime(Free Text in Aprima) Review of Systems System Result Effective Dates Constitutional recent illness 08/14/2018 Constitutional No chills [...] developed 06/08/2012 None Full Exam - General 1995 Constitutional general appearance Overall: in no acute distress 06/08/2012 None Full Exam - General 1995 Constitutional general appearance Overall: well nourished 06/08/2012 [...] time 04/10/2012 None Full Exam - General 1995 Psychiatric mood and affect Overall: normal mood [...] None Procedures Procedure Codes Date ADMIN INFLUENZA VIRU S VAC CPT-4: G0008 07/06/2018 FLU VACC PRSV FREE I NC ANTIG Formatting Model/CDA Sections, Assigned to/Kimberley Fagan CPT-4: [id number] 07/06/2018 ADMIN INFLUENZA VIRU S VAC CPT-4: G0008 07/05/2017 FLU VACC PRSV FREE I NC ANTIG CPT-4: 08556 07/05/2017 THER/PROPH/DIAG INJ SC/IM CPT-4: 25283 11/05/2016 TRIAMCINOLONE ACET I [place] NOS CPT-4: J3301 11/05/2016 TRIAMCINOLONE ACET I [place] NOS CPT-4: J3301 09/16/2014 DRAIN/INJECT JOINT/B URSA CPT-4: 15988 09/16/2014 KETOROLAC TROMETHAMI NE INJ CPT-4: J1885 03/20/2014 URINALYSIS NONAUTO W /O SCOPE CPT-4: 66657 12/10/2013 PRESCRIP TRANSMIT A ERX SY CPT-4: G8553 09/17/2013 PRESCRIP TRANSMIT A ERX SY CPT-4: G8553 06/08/2012 TRIAMCINOLONE ACET I [place] NOS CPT-4: J3301 03/16/2012 INJ TRIGGER POINT 1/ 2 MUSCL CPT-4: 80981 03/16/2012 PRESCRIP TRANSMIT A ERX SY CPT-4: G8553 03/16/2012 ADMIN INFLUENZA VIRU S VAC CPT-4: G0008 07/13/2011 FLULAVAL VACC, 3 YRS & >, IM CPT-4: Q2036 07/13/2011 ADMIN PNEUMOCOCCAL V ACCINE SNOMED CT: [id number] CPT-4: G0009 07/13/2011 Pneumococcal Polysac charide Vaccine, 23-Valent, Ad CPT-4: 82845 07/13/2011 Vital Signs Date Vital 08/14/2018 Blood Pressure 1: 140/80 Code: 8480-6 BMI: 37.2 Code: 24873-4 Heart Rate 1: 76 bpm Height: 5'3" SpO2: 96% Weight: 210 lbs 05/22/2018 Blood Pressure 1: 150/62 Code: 8480-6 BMI: 36.7 Code: 45108-5 Heart Rate 1: 74 bpm Height: 5'3" SpO2: 98% Weight: 207 lbs 11/18/2017 Blood Pressure 1: 122/66 Code: 8480-6 BMI: 35.8 Code: 35976-3 Heart Rate 1: 59 bpm Height: 5'3" SpO2: 97% Weight: 202 lbs 08/03/2017 Blood Pressure 1: 122/60 Code: 8480-6 BMI: 36.0 Code: 51843-9 Heart Rate 1: 60 bpm Height: 5'3" SpO2: 97% Weight: 203 lbs 07/05/2017 Blood Pressure 1: 140/76 Code: 8480-6 BMI: 36.0 Code: 29117-7 Heart Rate 1: 58 bpm Height: 5'3" SpO2: 98% Weight: 203 lbs 12/02/2016 Blood Pressure 1: 122/70 Code: 8480-6 BMI: 34.4 Code: 47008-2 Heart Rate 1: 66 bpm Height: 5'3" SpO2: 99% Temperature: 36.4 (C ) / 97.5 (F) Weight: 194 lbs 11/22/2016 Blood Pressure 1: 102/60 Code: 8480-6 BMI: 34.2 Code: 71057-7 Heart Rate 1: 110 bpm Height: 5'3" SpO2: 98% Temperature: 36.7 (C ) / 98.0 (F) Weight: 193 lbs 11/05/2016 Blood Pressure 1: 140/62 Code: 8480-6 BMI: 36.1 Code: 07302-5 Heart Rate 1: 102 bpm Height: 5'3" SpO2: 97% Temperature: 37.1 (C ) / 98.7 (F) Weight: 204 lbs 07/22/2016 Blood Pressure 1: 158/80 Code: 8480-6 Blood Pressure 1: 160/76 Code: 8480-6 BMI: 36.8 Code: 91247-0 Heart Rate 1: 56 bpm Height: 5'3" SpO2: 98% Weight: 208 lbs 05/19/2016 Blood Pressure 1: 150/78 Code: 8480-6 Blood Pressure 1: 122/69 Code: 8480-6 BMI: 37.0 Code: 87828-5 Heart Rate 1: 61 bpm Height: 5'3" SpO2: 98% Weight: 209 lbs 02/13/2016 Blood Pressure 1: 140/76 Code: 8480-6 BMI: 36.8 Code: 62722-6 Heart Rate 1: 64 bpm Height: 5'3" SpO2: 97% Weight: 208 lbs 01/13/2016 Blood Pressure 1: 170/70 Code: 8480-6 BMI: 36.8 Code: 99567-1 Heart Rate 1: 65 bpm Height: 5'3" SpO2: 95% Weight: 208 lbs 01/02/2016 Blood Pressure 1: 150/88 Code: 8480-6 BMI: 36.8 Code: 20105-7 Heart Rate 1: 61 bpm Height: 5'3" SpO2: 98% Weight: 208 lbs 12/18/2015 Blood Pressure 1: 148/90 Code: 8480-6 BMI: 37.6 Code: 17167-3 Heart Rate 1: 64 bpm Height: 5'3" SpO2: 96% Weight: 212 lbs 09/08/2015 Blood Pressure 1: 130/88 Code: 8480-6 BMI: 37.0 Code: 86092-9 Heart Rate 1: 62 bpm Height: 5'3" SpO2: 97% Weight: 209 lbs 07/09/2015 Blood Pressure 1: 142/82 Code: 8480-6 BMI: 36.4 Code: 49183-0 Heart Rate 1: 66 bpm Height: 5'3" SpO2: 97% Weight: 205 lbs 5 oz 01/16/2015 Blood Pressure 1: 122/80 Code: 8480-6 BMI: 35.6 Code: 31755-2 Heart Rate 1: 67 bpm Height: 5'3" SpO2: 98% Weight: 201 lbs 01/03/2015 Blood Pressure 1: 122/70 Code: 8480-6 BMI: 35.6 Code: 57528-8 Heart Rate 1: 61 bpm Height: 5'3" Respiratory Rate: 16 bpm SpO2: 98% Weight: 201 lbs 09/16/2014 Blood Pressure 1: 132/78 Code: 8480-6 BMI: 34.9 Code: 30890-0 Heart Rate 1: 56 bpm Height: 5'3" Weight: 197 lbs 08/15/2014 Blood Pressure 1: 152/80 Code: 8480-6 Blood Pressure 2: 160/82 Code: 8480-6 BMI: 34.0 Code: 17195-1 Heart Rate 1: 75 bpm Height: 5'3" Weight: 192 lbs 06/12/2014 Blood Pressure 1: 136/82 Code: 8480-6 BMI: 34.9 Code: 79508-4 Heart Rate 1: 58 bpm Height: 5'3" SpO2: 96% Weight: 197 lbs 03/20/2014 Blood Pressure 1: 140/72 Code: 8480-6 BMI: 34.9 Code: 55539-4 Heart Rate 1: 60 bpm Height: 5'3" Weight: 197 lbs 12/10/2013 Blood Pressure 1: 132/78 Code: 8480-6 BMI: 35.1 Code: 11138-4 Heart Rate 1: 68 bpm Height: 5'3" Weight: 198 lbs 09/17/2013 Blood Pressure 1: 128/78 Code: 8480-6 BMI: 34.9 Code: 55489-3 Heart Rate 1: 68 bpm Height: 5'3" Weight: 197 lbs 05/21/2013 Blood Pressure 1: 128/82 Code: 8480-6 BMI: 35.6 Code: 49026-8 Heart Rate 1: 80 bpm Height: 5'3" Weight: 201 lbs 01/17/2013 Blood Pressure 1: 138/72 Code: 8480-6 BMI: 36.7 Code: 48977-6 Heart Rate 1: 60 bpm Height: 5'3" [...] 1: 140/78 Code: 8480-6 BMI: 40.0 Code: 84490-9 Heart Rate 1: 64 bpm Height: 5'3" Respiratory Rate: 16 bpm Weight: 226 lbs 11/04/2011 Blood Pressure 1: 136/76 Code: 8480-6 Heart Rate 1: 68 bpm Respiratory Rate: 16 bpm Weight: 226 lbs 07/13/2011 Blood Pressure 1: 142/80 Code: 8480-6 BMI: 40.0 Code: 57149-0 Heart Rate 1: 60 bpm Height: 5'4" Respiratory Rate: 16 bpm Weight: 233 lbs Functional Status No Functional Status data History of Present Illness Symptom Name Status Resu lt Effective Date Notes sinus congestion Onset and Resolution gradual in [...] Pertinent Findings Denies edema 11/22/2016 -wears christine finnegan cough Quality intermitte nt 11/22/2016 None cough [...] unknown 03/16/2012 Charley notes that she had a dhesive capsulitis [...] Encounters Encounter Performer Loca tion Codes Date ([id number]) 06746 EST. P ATIENT, LEVEL III Diagnosis: Acute recurrent maxillary sinusitis[ICD10: J01.01] [facility] CPT-4: 79014 08/14/2018 06308 EST. PATIENT, LEVEL III Diagnosis: Pain in right shoulder[ICD10: M25.511] Diagnosis: Pain in right arm[ICD10: M79.601] [facility] CPT-4: 35497 05/22/2018 [id number]) 43110 EST. 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 PATIENT, LEVEL III Diagnosis: Other specified intestinal infections[ICD10: A08.8] Willow Manuel MD, [facility] CPT-4: 87496 08/03/2017 ([id number]) 05042 EST. 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 P ATIENT, LEVEL III Diagnosis: Essential (primary) hypertension[ICD10: I10] Юлия Manuel MD, [facility] CPT-4: 79908 12/02/2016 ([id number]) 55805 EST. P ATIENT, LEVEL III Diagnosis: Essential (primary) hypertension[ICD10: I10] Diagnosis: Allergic rhinitis due to pollen[ICD10: J30.1] Giuliana [facility] CPT-4: 86654 11/22/2016 94971 EST. PATIENT, LEVEL III Diagnosis: Acute laryngopharyngitis[ICD10: J06.0] Diagnosis: Influenza due to unidentified influenza virus with other respiratory manifestations[ICD10: J11.1] Willow Manuel MD, [facility] CPT-4: 48711 11/05/2016 ([id number]) 03215 EST. P ATIENT, LEVEL III Diagnosis: Gastro-esophageal reflux disease without esophagitis[ICD10: K21.9] Diagnosis: Essential (primary) hypertension[ICD10: I10] Giuliana [facility] CPT-4: 44190 07/22/2016 ([id number] 38337 EST. P ATIENT, LEVEL IV Diagnosis: Essential (primary) hypertension[ICD10: I10] Diagnosis: Abdominal distension (gaseous)[ICD10: R14.0] Giuliana [facility] CPT-4: 35147 05/19/2016 ([id number]) 39426 EST. P ATIENT, LEVEL III Diagnosis: Essential (primary) hypertension[ICD10: I10] Юлия Manuel MD, [facility] CPT-4: 04998 02/13/2016 ([id number]) 44441 EST. P ATIENT, LEVEL III Diagnosis: Essential (primary) hypertension[ICD10: I10] Юлия Manuel MD, [facility] CPT-4: 60653 01/13/2016 59628 EST. PATIENT, LEVEL IV Diagnosis: Essential (primary) hypertension[ICD10: I10] Diagnosis: Body mass index (BMI) 36.0-36.9, adult[ICD10: Z68.36] Willow Manuel MD, [facility] CPT-4: 11951 01/02/2016 ([id number]) 15208 EST. P ATIENT, LEVEL III Diagnosis: Essential (primary) hypertension[ICD10: I10] Юлия Manuel MD, [facility] CPT-4: 61757 12/18/2015 ([id number]) 14658 EST. P ATIENT, LEVEL IV Diagnosis: Essential (primary) hypertension[ICD10: I10] Diagnosis: Benign paroxysmal vertigo, bilateral[ICD10: H81.13] Diagnosis: Radiculopathy, cervical region[ICD10: M54.12] Giuliana Manuel [facility] CPT-4: 56822 09/08/2015 ([id number]) 55586 EST. P ATIENT, LEVEL IV Diagnosis: Other specified nonscarring hair loss[ICD10: L65.8] Diagnosis: Myositis, unspecified[ICD10: M60.9] Diagnosis: Psoriasis, unspecified[ICD10: L40.9] Diagnosis: Essential (primary) hypertension[ICD10: I10] Giuliana [facility] CPT-4: 88758 07/09/2015 ([id number]) 78438 EST. P ATIENT, LEVEL III Diagnosis: ESSENTIAL HYPERTENSION[ICD9: 401.9] Giuliana Manuel MD, [facility] CPT- 4: 41466 01/16/2015 ([id number]) 24006 EST. P ATIENT, LEVEL III Diagnosis: Shoulder pain[ICD9: 719.41] Diagnosis: ESSENTIAL HYPERTENSION[ICD9: 401.9] Diagnosis: PALPITATIONS[ICD9: 785.1] Giuliana Manuel MD, [facility] CPT-4: 44272 01/03/2015 ([id number]) 69981 EST. P ATIENT, LEVEL III Diagnosis: Sacroiliitis[ICD9: 720.2] Diagnosis: Back pain[ICD9: 724.5] Diagnosis: ESSENTIAL HYPERTENSION[ICD9: 401.9] Giuliana Manuel MD [facility] CPT- 4: 75594 09/16/2014 ([id number]) 30289 EST. P ATIENT, LEVEL IV Diagnosis: ESSENTIAL HYPERTENSION[ICD9: 401.9] Diagnosis: Arrhythmia[ICD9: 427.9] Diagnosis: Nausea[ICD9: 787.02] Giuliana Manuel MD, [facility] CPT-4: 37995 08/15/2014 ([id number]) 10646 EST. P ATIENT, LEVEL IV Diagnosis: ESSENTIAL HYPERTENSION[ICD9: 401.9] Diagnosis: Back pain[ICD9: 724.5] Diagnosis: Allergic reaction[ICD9: 995.3] Giuliana Manuel MD, [facility] CPT-4: 25023 06/12/2014 ([id number]) 52452 EST. P ATIENT, LEVEL III Diagnosis: Thoracic back pain[ICD9: 724.1] Diagnosis: MYALGIA AND MYOSITIS[ICD9: 729.1] Giuliana Manuel MD, [facility] CPT-4: 35591 03/20/2014 ([id number]) 55515 EST. P ATIENT, LEVEL IV Diagnosis: HYPERLIPIDEMIA[ICD9: 272.4] Diagnosis: ESSENTIAL HYPERTENSION[SNOMED: 42301392] Diagnosis: ABDOM PAIN NOS SITE[ICD9: 789.00] Giuliana Manuel MD, [facility] CPT-4: 71183 12/10/2013 ([id number]) 92199 EST. P ATIENT, LEVEL IV Diagnosis: ESSENTIAL HYPERTENSION[SNOMED: 66548390] Diagnosis: HYPERLIPIDEMIA[ICD9: 272.4] Giuliana Manuel MD, [facility] CPT-4: 96401 09/17/2013 ([id number]) 77733 EST. P ATIENT, LEVEL IV Diagnosis: ESSENTIAL HYPERTENSION[SNOMED: 60057048] Diagnosis: OBESITY[ICD9: 278.00] Diagnosis: Back pain[ICD9: 724.5] Giuliana Manuel MD, [facility] CPT-4: 25983 05/21/2013 ([id number]) 77127 EST. P ATIENT, LEVEL IV Diagnosis: ESSENTIAL HYPERTENSION[SNOMED: 98869906] Diagnosis: HYPERLIPIDEMIA[ICD9: 272.4] Diagnosis: Abdominal pain[ICD9: 789.00] Diagnosis: BENIGN PAROXYSMAL VERTIGO[ICD9: 386.11] Giuliana Manuel MD, [facility] CPT-4: 94449 01/17/2013 ([id number]) 50626 EST. P ATIENT, LEVEL IV Diagnosis: ESSENTIAL HYPERTENSION[SNOMED: 94794133] Diagnosis: BENIGN PAROXYSMAL VERTIGO[ICD9: 386.11] Diagnosis: Hair loss[ICD9: 704.00] Diagnosis: Vitamin d deficiency[ICD9: 268.9] Diagnosis: Bleeding from the nose[ICD9: 784.7] Giuliana Manuel MD, [facility] CPT- 4: 44522 09/20/2012 24029 EST. PATIENT, LEVEL IV Diagnosis: BPPV (benign paroxysmal positional vertigo)[ICD9: 386.11] Diagnosis: HYPERLIPIDEMIA[ICD9: 272.4] Diagnosis: ESSENTIAL HYPERTENSION[SNOMED: 84961723] Giuliana Manuel MD, [facility] CPT-4: 17699 06/08/2012 ([id number]) 27241 EST. P ATIENT, LEVEL IV Diagnosis: BPPV (benign paroxysmal positional vertigo)[ICD9: 386.11] Diagnosis: Diverticulitis[ICD9: 562.11] Diagnosis: Abdominal pain[ICD9: 789.00] Giuliana Manuel MD, [facility] CPT-4: 49894 04/10/2012 ([id number]) 12530 EST. P ATIENT, LEVEL III Diagnosis: Neck pain[ICD9: 723.1] Diagnosis: Acute upper back pain[ICD9: 724.1] Giuliana Manuel MD, [facility] CPT- 4: 47162 03/16/2012 ([id number]) 25921 EST. P ATIENT, LEVEL IV Diagnosis: HYPERLIPIDEMIA[ICD9: 272.4] Diagnosis: ESSENTIAL HYPERTENSION[SNOMED: 31033809] Diagnosis: Constipation - functional[ICD9: 564.09] Giuliana Manuel MD, [facility] CPT-4: 34955 02/03/2012 ([id number]) 21987 EST. P ATIENT, LEVEL IV Diagnosis: HYPERLIPIDEMIA[ICD9: 272.4] Diagnosis: VITAMIN DEFICIENCY[ICD9: 269.2] Diagnosis: ESSENTIAL HYPERTENSION[SNOMED: 48852445] Giuliana Manuel MD, [facility] CPT-4: 32296 11/04/2011 66417 EST. 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] Diagnosis: Seasonal allergies[ICD9: 477.9] Giuliana Manuel MD, [facility] CPT-4: 18527 07/13/2011 Plan of Care Planned Activity Notes C odes Status Date Appointment: (15 min) Moderate 08/14/2018 Patient Education: Patient Medication Summary Completed 08/14/2018 Appointment: Injection 07/06/2018 Patient Education: Patient Medication Summary Completed 07/06/2018 Appointment: Willow Garcia WPtel[facility] (15 min) Moderate 05/22/2018 Patient Education: Patient Medication Summary Completed 05/22/2018 Appointment: Giuliana Manuel WPtel: [address] [place], [place] [address] [place] (15 min) Moderate 11/18/2017 Patient Education: Patient Medication Summary Completed 11/18/2017 Appointment: Giuliana Manuel WPtel[facility] [place] (15 min) Moderate 11/07/2017 Appointment: Willow Garcia [facility] [phone] [facility] [place] (30 min) Complex 08/03/2017 Patient Education: Patient Medication Summary Completed 08/03/2017 Patient Education: Obesity Completed 08/03/2017 Appointment: [facility] [address] [facility] [place] (15 min) Moderate 07/05/2017 Patient Education: Patient Medication Summary Completed 07/05/2017 Patient Education: Obesity Completed 07/05/2017 Appointment: [facility] [address] [facility] [place] (15 min) Moderate 06/27/2017 App[facility]ment: [facility] [address] [facility] [place] (15 min) Moderate 06/21/2017 Appointment: Юлия Rojas [facility]Ptel[facility] [phone] [phone] [place] (30 min) Complex 12/23/2016 Appointment: [facility]лия Rojas [facility] [phone] [phone] [place] (30 min) Complex 12/02/2016 Patient Education: Patient Medication Summary Completed 12/02/2016 Patient Education: Obesity Completed 12/02/2016 Appointment: Giuliana Manuel WPtel: [facility] [place] (15 min) Moderate 11/22/2016 Patient Education: Patient Medication Summary Completed 11/22/2016 Patient Education: Obesity Completed 11/22/2016 Appointment: Willow Garcia [facility] [phone] [facility] [place] (30 min) Complex 11/05/2016 Patient Education: Patient Medication Summary Completed 11/05/2016 Referral: Duarte Catalan Patient info rmed. Referral info faxed. Completed 07/26/2016 Appointment: Giuliana Manuel WPtel: [facility] [place] (15 min) Moderate 07/22/2016 Patient Education: Patient Medication Summary Completed 07/22/2016 Patient Education: Obesity Completed 07/22/2016 Care Plan: Referral Order SNOMED-CT : [id number] Pending 07/22/2016 Patient Education: Patient Medication Summary Completed 05/19/2016 Patient Education: Obesity Completed 05/19/2016 Appointment: Giuliana Manuel WPtel: [phone] [facility] [place] (15 min) Moderate 05/17/2016 Appointment: Юлия Rojas WPtel: [phone] [phone] [place] (30 min) Complex 02/13/2016 Patient [...] EDUC & TRAIN 1 PT Ordered 01/02/2016 Patient Education: Patient Medication Summary Completed 12/18/2015 Patient Education: Obesity Completed 12/18/2015 Appointment: Giuliana Manuel [facility] [address] [facility] [place] (15 min) Moderate 12/08/2015 Referral: Jared Lafleur [address] [facility] [address] [id number] [place] Referral Completed 10/17/2015 Appointment: Giuliana Manuel [facility]Pt[facility] [address] [facility] [place] (15 min) Moderate 09/08/2015 Patient Education: Patient Medication Summary Completed 09/08/2015 Patient Education: .Cervicalgia Neck Pain Completed 09/08/2015 Care Plan: Referral Order SNOMED-CT : [id number] Ordered 09/08/2015 Appointment: Giuliana Manuel WPtel: [facility] (15 min) Moderate 07/09/2015 Patient Education: Patient Medication Summary Completed 07/09/2015 Appointment: Giuliana Manuel WPtel: [facility] (15 min) Moderate 07/07/2015 Appointment: Giuliana Manuel WPtel: [address] [place], [place] [phone] Follow up 03/17/2015 Appointment: Giuliana Manuel WPtel: [address] [place], [place] [phone] Other 01/16/2015 Patient Education: Patient Medication Summary Completed 01/16/2015 Patient Education: Hypertension Completed 01/16/2015 Appointment: Giuliana Manuel WPtel: [address] [place], [place] [phone] Follow up 01/03/2015 Patient Education: Patient Medication Summary Completed 01/03/2015 Patient Education: Hypertension Completed 01/03/2015 Patient Education: Patient Medication Summary Completed 09/16/2014 Patient Education: Hypertension Completed 09/16/2014 Appointment: Giuliana Manuel WPtel: [address] [place], [place] [phone] Follow up 09/09/2014 Appointment: Giuliana Manuel WPtel: [address] [place], [place] [phone] Sick 08/15/2014 Patient Education: Patient Medication Summary Completed 08/15/2014 Patient Education: Hypertension Completed 08/15/2014 Care Plan: Referral Order SNOMED-CT : [id number] Ordered 08/15/2014 Appointment: Giuliana Manuel WPtel: [address] [place], [place] [phone] Follow up 06/18/2014 Appointment: Giuliana Manuel WPtel: [address] [place], [place] [phone] Sick 06/12/2014 Patient Education: Patient Medication Summary Completed 06/12/2014 Patient Education: Hypertension Completed 06/12/2014 Care Plan: Referral Order SNOMED-CT : [id number] Ordered 06/12/2014 Appointment: Giuliana Manuel WPtel: [address] [place], [place] [phone] Follow up 03/20/2014 Patient Education: Patient Medication Summary Completed 03/20/2014 Appointment: Giuliana Manuel WPtel: [address] [place], [place] [phone] Follow up 12/10/2013 Patient Education: Patient Medication Summary Completed 12/10/2013 Patient Education: Hypertension Completed 12/10/2013 Appointment: Giuliana Manuel WPtel: [address] [place], [place] [phone] Follow up 09/17/2013 Patient Education: Patient Medication Summary Completed 09/17/2013 Patient Education: Hypertension Completed 09/17/2013 Appointment: Giuliana Manuel WPtel: [address] [place], [place] [phone] Follow up 05/21/2013 Patient Education: Patient Medication Summary Completed 05/21/2013 Patient Education: Hypertension Completed 05/21/2013 Appointment: Giuliana Manuel WPtel: [address] [place], [place] [phone] Follow up 01/17/2013 Patient Education: Patient Medication Summary Completed 01/17/2013 Patient Education: Hypertension Completed 01/17/2013 Appointment: Giuliana Manuel WPtel: [address] [place] [id number] Follow up 09/20/2012 Patient Education: Patient Medication Summary Completed 09/20/2012 Patient Education: Hypertension Completed 09/20/2012 Appointment: Giuliana Manuel WPtel: [address] [place], [place] [phone] Follow up 06/08/2012 Patient Education: Patient Medication Summary Completed 06/08/2012 Patient Education: High Blood Pressure: Essential Hypertension Completed 06/08/2012 Appointment: Giuliana Manuel WPtel: [address] [place], [place] [phone] Other 04/10/2012 Patient Education: Patient Medication Summary Completed 04/10/2012 Patient Education: .Amazing charts Parox ysmal positional vertigo Completed 04/10/2012 Patient Education: Diverticulosis Diet Completed 04/10/2012 Appointment: Giuliana Manuel WPtel: [address] [place], [place] [phone] Other 03/16/2012 Patient Education: Patient Medication Summary Completed 03/16/2012 Appointment: Giuliana Manuel WPtel: [address] [place], [place] [phone] Other 02/03/2012 Patient Education: Patient Medication Summary Completed 02/03/2012 Patient Education: High Blood Pressure: Essential Hypertension Completed 02/03/2012 Patient Education: .Amazing charts Power Pudding Completed 02/03/2012 Appointment: Giuliana Manuel WPtel: [address] [place] [address] Follow up 11/04/2011 Patient Education: Patient Medication Summary Completed 11/04/2011 Patient Education: High Blood Pressure: Essential Hypertension Completed 11/04/2011 Appointment: Giuliana Manuel WPtel: [address] [place], [place] [phone] Other 07/13/2011 Patient Education: Patient Medication Summary Completed 07/13/2011 Patient Education: .Amazing charts Diabe tic meal planning guide Completed 07/13/2011 Referral: Jared Lafleur [facility] [place] [address] [place] Referral Appointment Requested Referral: Duarte Catalan Referral Appointment Requested Referral: Dr. Willams WPtel: [address] [place] [address] [place] Referral Initiated Referral: [facility] WPtel: [address] [place] [address] [place] Referral Initiated Instructions No Instructions
--- OUTSIDE RECORDS SUMMARY | 2020-01-21 14:30 | XMS REPORT | CCD ---
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 09/08/2015 Marital status Unknown M arried 07/13/[address]: 784325497 Nonsmoker 07/13/[address]: 479067562 Never drinks alcohol 07/13/2011 Allergies, Adverse Reactions, Alerts Substance Reaction Codes Entered Date Inactivated Date Status Soy Unknown 07/13/2011 No Inactive Date Active Cardizem RxNorm: 267903 05/19/2016 No Inactive Date Active Metoprolol Succinate [...] pain ICD-9: 789.00 Active 07/13/2011 Unknown 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 Active 07/13/2011 Unknown OBESITY ICD-9: [...] Abdominal pain ICD-9: 789.00 07/13/2011 Active 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 07/13/2011 Active OBESITY ICD-9: 278.00 07/13/2011 Active Postprandial bloating ICD-9: 787.3 07/13/2011 Active Seasonal allergies ICD- 9: 477.9 07/13/2011 Active VAC STREP PNEUMONIAE -FLU ICD-9: V06.6 07/13/2011 Active Medications Medication Codes Instruc tions Start Date Stop Date Sta tus Fill Instructions amoxicillin 500 mg t ablet RxNorm: 998125 1 Tablet(s) PO TID 08/14/2018 08/20/2018 Active losartan 25 mg tablet RxNorm: 630536 1 Tablet(s) PO BID 05/02/2018 04/26/2019 Active losartan 25 mg tablet RxNorm: 634039 1 Tablet(s) PO BID 05/02/2018 05/01/2018 Inactive losartan 25 mg tablet RxNorm: 186583 1 Tablet(s) PO BID 01/30/2018 05/01/2018 Inactive Vitamin D 2,000 unit capsule RxNorm: 1 Capsule(s) PO daily 11/18/2017 No Stop Date Active clonidine HCl 0.1 mg tablet RxNorm: 395249 1/2 Tablet(s) PO BID 11/18/2017 11/12/2018 Active doxazosin 1 mg tablet RxNorm: 735779 1 Tablet(s) PO daily at midnight 11/18/2017 11/12/2018 Ac tive midnight hydrochlorothiazide 12.5 mg tablet RxNorm: 345431 1 Tablet(s) PO daily 11/18/2017 11/12/2018 Ac tive atenolol 25 mg tablet RxNorm: 160209 1 Tablet(s) PO daily 11/18/2017 11/12/2018 Active famotidine 40 mg tablet RxNorm: 712532 1 Tablet(s) PO daily TAKE 1 TABLET BY [facility] EVERY MORNING 11/18/2017 11/12/2018 Active - Ref: [id number] atenolol 25 mg tablet RxNorm: 090723 1 Tablet(s) PO BID managed by Dr Lafleur 11/18/2017 11/17/2017 In active losartan 25 mg tablet RxNorm: 617056 1 Tablet(s) PO BID 11/18/2017 01/29/2018 Inactive hydrochlorothiazide 12.5 mg tablet RxNorm: 047132 1 Tablet(s) PO daily 10/28/2017 11/17/2017 In active famotidine 40 mg tablet RxNorm: 685935 TAKE 1 TABLET BY MOUTH EVERY MORNING 10/04/2017 11/17/2017 In active - Ref: [id number] clonidine HCl 0.1 mg tablet RxNorm: 574303 1/2 Tablet(s) PO BID 07/05/2017 11/17/2017 Inactive doxazosin 1 mg tablet RxNorm: 343412 1 Tablet(s) PO daily at midnight 07/05/2017 11/17/2017 In active midnight doxazosin 1 mg tablet RxNorm: 051296 1 Tablet(s) PO BID 12/02/2016 2017 Inactive midnight prednisone 20 mg tablet RxNorm: 631718 3 Tablet(s) PO daily 11/22/2016 11/26/2016 Inactive Tessalon Perles 100 mg capsule RxNorm: 330924 1 -2 Capsule(s) PO TI D as needed cough 11/19/2016 No Stop Date Active Zithromax Z-Jeff 250 mg tablet RxNorm: 654998 1 Tablet(s) PO UD 11/19/2016 12/01/2016 Inactive z pack as directed Tamiflu 75 mg capsule RxNorm: 471725 1 Capsule(s) PO BID 11/05/2016 11/09/2016 Inactive Kenalog 40 mg/mL karl pension for injection RxNorm: 4092928 Milliliter(s) Inj 11/05/2016 11/05/2016 In active Tessalon Perles 100 mg capsule RxNorm: 884161 1 -2 Capsule(s) PO TI D as needed cough 11/04/2016 11/18/2016 Inactive famotidine 40 mg tablet RxNorm: 086350 1 Tablet(s) PO QAM 10/25/2016 10/03/2017 Inactive famotidine 40 mg tablet RxNorm: 166653 1 Tablet(s) PO QAM 08/02/2016 10/24/2016 Inactive Carafate 1 gram tablet RxNorm: 898351 1 Tablet(s) PO TID DISSOLVE THE PILL IN 10ML OF WATER 07/22/2016 10/19/2016 Inactive clonidine HCl 0.1 mg tablet RxNorm: 592648 1 Tablet(s) PO BID an d 1 tablet as needed 07/22/2016 12/01/2016 Inactive aspirin 81 mg tablet ,delayed release RxNorm: 750397 1 Tablet(s) PO QHS 05/19/2016 No Stop Date Active Cinnamon 1000 mg RxNorm: 1 PO daily 05/19/2016 No Stop Date Active losartan 25 mg tablet RxNorm: 167706 1 Tablet(s) PO BID 05/19/2016 11/17/2017 Inactive atenolol 25 mg tablet RxNorm: 335489 1.5 Tablet(s) PO BID 02/13/2016 07/21/2016 Inactive losartan 25 mg tablet RxNorm: 539645 2 Tablet(s) PO BID 01/13/2016 05/11/2016 Inactive Cardizem CD 240 mg c apsule,extended release RxNorm: 479896 1 Capsule(s) PO daily 01/13/2016 02/12/2016 In active losartan 100 mg tablet RxNorm: 132858 1/2 Tablet(s) PO BID 01/08/2016 01/12/2016 Inactive losartan 25 mg tablet RxNorm: 625643 2 Tablet(s) PO QPM 1 Tablet(s) PO QPM 12/18/2015 01/07/2016 In active atenolol 25 mg tablet RxNorm: 796643 1.5 Tablet(s) PO BID TAKE ONE TABLET BY MOUTH TWICE A DAY 12/18/2015 01/12/2016 Inactive atenolol 25 mg tablet RxNorm: 524259 Tablet(s) TAKE ONE TABLET BY MOUTH TWICE A DAY 11/14/2015 12/17/2015 Inactive losartan 25 mg tablet RxNorm: 022478 Tablet(s) 1 Tablet(s) PO QPM 11/14/2015 12/17/2015 Inactive spironolactone 25 mg tablet RxNorm: 593906 1 Tablet(s) PO daily 11/14/2015 12/14/2015 Inactive atenolol 25 mg tablet RxNorm: 520798 TAKE ONE TABLET BY MOUTH TWICE A DAY 08/07/2015 11/13/2015 In active atenolol 25 mg tablet RxNorm: 149780 1 Tablet(s) PO daily TAKE ONE TABLET BY MOUTH TWICE DAILY 08/06/2015 08/06/2015 Inactive Generic For:TENORMIN 25 MG TABLET 05/05/2015 10:00:22 AM atenolol 25 mg tablet RxNorm: 638205 1 Tablet(s) PO daily TAKE ONE TABLET BY MOUTH TWICE DAILY 08/06/2015 08/05/2015 Inactive Generic For:TENORMIN 25 MG TABLET 05/05/2015 10:00:22 AM betamethasone diprop ionate 0.05 % topical ointment RxNorm: 446506 1 TOP TID as needed rash 07/09/2015 05/18/2016 Inactive betamethasone diprop ionate 0.05 % topical ointment RxNorm: 653881 1 TOP TID as needed rash 07/09/2015 07/08/2015 Inactive spironolactone 25 mg tablet RxNorm: 059330 1 Tablet(s) PO daily 07/09/2015 07/08/2015 Inactive spironolactone 25 mg tablet RxNorm: 699230 1 Tablet(s) PO daily 07/09/2015 11/13/2015 Inactive losartan 25 mg tablet RxNorm: 578272 Tablet(s) 1 Tablet(s) PO QPM 05/27/2015 11/13/2015 Inactive atenolol 25 mg tablet RxNorm: 277289 TAKE ONE TABLET BY MOUTH TWICE DAILY 05/05/2015 08/05/2015 In active Generic For:TENORMIN 25 MG TABLET 05/05 10:00:22 AM hydrochlorothiazide 25 mg tablet RxNorm: 275164 1/2 Tablet(s) PO BID 02/17/2015 07/08/2015 Inactive Generic For:HYDRODIURIL 25 MG TABLET sulfamethoxazole 800 mg-trimethoprim 160 mg tablet RxNorm: 538341 1 Tablet(s) PO BID 01/16/2015 01/25/2015 Inactive losartan 25 mg tablet RxNorm: 421687 1 Tablet(s) PO QPM 12/09/2014 05/26/2015 Inactive Kenalog 40 mg/mL karl pension for injection RxNorm: 3131081 1 Milliliter(s) Inj 09/16/2014 09/16/2014 In active prednisone 20 mg tablet RxNorm: 430159 3 Tablet(s) PO daily 09/16/2014 09/18/2014 Inactive losartan 25 mg tablet RxNorm: 378306 1 Tablet(s) PO QPM 08/15/2014 12/08/2014 Inactive hydrochlorothiazide 25 mg tablet RxNorm: 619949 TAKE 1/2 TABLET BY [facility] TWICE DAILY 08/13/2014 02/08/2015 Inactive Generic For:HYDRODIURIL 25 MG TABLET atenolol 25 mg tablet RxNorm: 038526 TAKE ONE TABLET BY MOUTH TWICE DAILY 05/07/2014 05/01/2015 In active Generic For:TENORMIN 25 MG TABLET ketorolac 60 mg/2 mL intramuscular solution RxNorm: 364377 2 Milliliter(s) IM 03/20/2014 03/20/2014 In active hydrochlorothiazide 25 mg tablet RxNorm: 751264 Tablet(s) PO TAKE 1/2 TABLET BY MOUTH TWICE DAILY 02/14/2014 08/12/2014 Inactive Generic For:HYDRODIURIL 25 MG TABLET Generic For:HYDRODIURIL 25 MG TABLET 02/14/2014 3:45:03 PM atorvastatin 10 mg t ablet RxNorm: 182010 1 Tablet(s) PO TIW 09/17/2013 03/19/2014 Inactive atorvastatin 10 mg t ablet RxNorm: 195642 tablet oral 09/17/2013 06/04/2015 Inactive hydrochlorothiazide 25 mg tablet RxNorm: 739782 Tablet(s) PO TAKE 1/2 TABLET BY MOUTH TWICE DAILY 08/06/2013 02/13/2014 Inactive Generic For:HYDRODIURIL 25 MG TABLET Generic For:HYDRODIURIL 25 MG TABLET 08/06/2013 1:52:35 PM amoxicillin 500 mg t ablet RxNorm: 027891 2 Tablet(s) PO 2 tabl ets PO 1 hour before dental procedure. 07/26/2013 07/25/2013 Inactive amoxicillin 500 mg t ablet RxNorm: 329131 2 Tablet(s) PO 2 tabl ets PO 1 hour before dental procedure. 07/26/2013 07/26/2013 Inactive methotrexate sodium 2.5 mg tablet RxNorm: 311654 tablet oral 07/13/2013 01/15/2015 Inactive atenolol 25 mg tablet RxNorm: 606589 Tablet(s) PO TAKE ONE TABLET BY MOUTH TW ICE DAILY 05/01/2013 05/06/2014 Inactive Generic For:TENORMIN 25 MG TABLET hydrochlorothiazide 25 mg tablet RxNorm: 561666 Tablet(s) PO TAKE 1/2 TABLET BY MOUTH TWICE DAILY 11/21/2012 08/05/2013 Inactive Generic For:HYDRODIURIL 25 MG TABLET atenolol 25 mg tablet RxNorm: 393305 Tablet(s) PO TAKE ONE TABLET BY MOUTH TW ICE DAILY 10/02/2012 04/30/2013 Inactive Generic For:TENORMIN 25 MG TABLET gemfibrozil 600 mg t ablet RxNorm: 466483 1 Tablet(s) PO BID 06/08/2012 10/08/2012 Inactive meclizine 25 mg tablet RxNorm: 847329 1 Tablet(s) PO Q4 PRN 06/08/2012 09/05/2012 Inactive prednisone 10 mg Tab RxNorm: 996257 2 Tablet(s) PO daily 03/16/2012 03/20/2012 Inactive atorvastatin 10 mg Tab RxNorm: 938912 1 Tablet(s) PO daily 12/21/2011 12/20/2011 Inactive atorvastatin 10 mg Tab RxNorm: 419171 1 Tablet(s) PO daily 12/21/2011 06/08/2012 Inactive methotrexate sodium 2.5 mg Tab RxNorm: 593578 Tablet(s) PO 11/16/2011 06/12/2012 Inactive 3 on tuesday3 on hydrochlorothiazide 25 mg Tab RxNorm: 347476 1/2 Tablet(s) PO BID 11/01/2011 11/24/2012 Inactive hydrochlorothiazide 12.5 mg Cap RxNorm: 756214 Capsule(s) PO 11/01/2011 06/08/2012 Inactive TAKE ONE TABLET BY MOUTH TWICE DAILY;Gen sky For:MICROZIDE 12.5 MG CAPSULE hydrochlorothiazide 25 mg Tab RxNorm: 702246 1/2 Tablet(s) PO BID 11/01/2011 11/24/2012 Inactive hydrochlorothiazide 25 mg tablet RxNorm: 011958 1/2 Tablet(s) PO BID 11/01/2011 10/31/2011 Inactive hydrochlorothiazide 25 mg Tab RxNorm: 994296 1/2 Tablet(s) PO BID 11/01/2011 10/31/2011 Inactive atenolol 25 mg tablet RxNorm: 503385 Tablet(s) PO 10/04/2011 10/01/2012 Inactive TAKE ONE TABLET BY MOUTH TWICE DAILY;Generic For:TENORMIN 25 MG TABLET hydrochlorothiazide 12.5 mg Cap RxNorm: 265201 1 Capsule(s) PO BID 09/13/2011 10/31/2011 Inactive Influenza Virus Vacc ine 0.5 mL RxNorm: IM 07/13/2011 07/13/2011 Inactive Pneumovax 23 25 mcg/ 0.5 mL Injection RxNorm: 470780 Milliliter(s) Inj 07/13/2011 07/13/2011 In active Phenergan VC-Codeine 6.25 mg-5 mg-10 mg/5 mL syrup RxNorm: 775047 5 Milliliter(s) PO Q6 as needed No Start Date Active [place] 3 Cap RxNorm: 1 Capsule(s) PO BID No Start Date Active Cinnamon 1000 mg RxNorm: 2 PO daily No Start Date Active atenolol 25 mg Tab RxNorm: 566438 1 Tablet(s) PO BID No Start Date 10/03/2011 Inactive niacin ER 500 mg Cap RxNorm: 717530 1 Capsule(s) PO daily No Start Date 06/08/2012 Inactive gemfibrozil 600 mg t ablet RxNorm: 743910 1 Tablet(s) PO BID No Start Date 06/07/2012 Inactive Vitamin C 500 mg Tab RxNorm: 264577 1 Tablet(s) PO daily No Start Date 07/21/2016 Inactive Zithromax Z-Jeff 250 mg tablet RxNorm: 493860 1 Tablet(s) PO UD No Start Date 11/18/2016 Inactive z pack as directed doxazosin 1 mg tablet RxNorm: 544193 1 Tablet(s) PO BID No Start Date 12/01/2016 Inactive vitamin E (dl, aceta te) 400 unit Cap RxNorm: 333366 1 Capsule(s) PO daily No Start Date 07/21/2016 Inactive famotidine 40 mg tablet RxNorm: 553096 1 Tablet(s) PO QAM No Start Date 08/01/2016 Inactive hydrochlorothiazide 25 mg Tab RxNorm: 544131 1/2 Tablet(s) PO BID No Start Date 09/12/2011 Inactive Tessalon Perles 100 mg capsule RxNorm: 441899 1 -2 Capsule(s) PO TI D as needed cough No Start Date 11/03/2016 Inactive aspirin 81 mg Tab, D elayed Release RxNorm: 837122 1 Tablet(s) PO every other day No Start Date 05/18/2016 Inactive Cinnamon 1000 mg RxNorm: 2 PO daily No Start Date 05/18/2016 Inactive clonidine HCl 0.1 mg tablet RxNorm: 098465 1 Tablet(s) PO QHS an d 1 Tablet as needed No Start Date 07/21/2016 Inactive niacin 500 mg tablet RxNorm: 091396 1 Tablet(s) PO QHS No Start Date 01/01/2015 Inactive multivitamin Tab RxNorm: 1 Tablet(s) PO daily No Start Date 07/21/2016 Inactive methotrexate sodium 2.5 mg Tab RxNorm: 274870 Tablet(s) PO No Start Date 11/15/2011 Inactive 3 on tuesday3 on T-Bio RxNorm: 1 PO daily No Start Date 05/18/2016 Inactive Vitamin D 2,000 unit Cap RxNorm: 1 Capsule(s) PO daily No Start Date 07/21/2016 Inactive hydrochlorothiazide 12.5 mg tablet RxNorm: 487649 1 Tablet(s) PO daily No Start Date 10/27/2017 Inactive Medication Administered Medication Codes Instruc tions Start Date Status Kenalog 40 mg/mL suspension for injection RxNorm: 6135793 Milliliter 11/05/2016 No longer Active Kenalog 40 mg/mL suspension for injection RxNorm: 2991136 1Milliliter 09/16/2014 N o longer Active ketorolac 60 mg/2 mL intramuscular solution RxNorm: 799109 2Milliliter 03/20/2014 N o longer Active Pneumovax 23 25 mcg/0.5 mL Injection RxNorm: 216419 Milliliter 07/13/2011 No longer Active Influenza Virus [...] 02/03/2012 VITAMIN DEFICIENCY ICD-9: 269.2 11/04/2011 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 07/13/2011 Postprandial bloating ICD-9: 787.3 [...] Ord64 K 3.8 mEq/L 12/06/2016 Comp Metabolic Vwr661 NA 134 mEq/L 12/03/2016 Comp Metabolic Fke010 K Specimen 3+ Hemolyzed mEq/L 12/04/19 17 Comp Metabolic Xye845 CL 106 mEq/L 12/03/2016 Comp Metabolic Qat288 CO2 20.0 mEq/L 12/03/2016 Comp Metabolic Lsz653 AN ION GAP 16 12/03/2016 Comp Metabolic Cko018 GL UCOSE 93 mg/dL 12/03/2016 Comp Metabolic Tcz617 Cr eat 0.8 mg/dL 12/03/2016 Comp Metabolic Wjd817 eG FR 73 ml/min/1.73m2 12/03 Comp Metabolic Spn028 BUN 14 mg/dL 12/03/2016 Comp Metabolic Ynp704 B/ C Ratio 17.1 Ratio 12/03/2016 Comp Metabolic Qqm820 CA LCIUM 9.3 mg/dL 12/03/2016 Comp Metabolic Dkl882 AL K PHOS 63 U/L 12/03/2016 Comp Metabolic Tvg328 T(SGOT) 69 U/L 12/03/2016 Comp Metabolic Buj980 AL T(SGPT) 33 U/L 12/03/2016 Comp Metabolic Uxr000 BI LI T 1.0 mg/dL 12/03/2016 Comp Metabolic Nup355 AL BUMIN 4.3 g/dL 12/03/2016 Comp Metabolic Mzr993 TP RO 6.7 g/dL 12/03/2016 Comp Metabolic Fas343 GL OB 2.4 g/dL 12/03/2016 Comp Metabolic Slr892 A/ G Ratio 1.7 Ratio 12/03/2016 Comp Metabolic Lwp661 Os mo 268 mOsmo 12/03/2016 Comp Metabolic Pfc774 NA 138 mEq/L 12/18/2015 Comp Metabolic Lyn202 K 4.1 mEq/L 12/18/2015 Comp Metabolic Peh136 CL 104 mEq/L 12/18/2015 Comp Metabolic Iua848 CO2 22.0 mEq/L 12/18/2015 Comp Metabolic Jks415 AN ION GAP 16 12/18/2015 Comp Metabolic Wxn387 GL UCOSE 89 mg/dL 12/18/2015 Comp Metabolic Ebm630 Cr eat 0.6 mg/dL 12/18/2015 Comp Metabolic Fwd417 eG FR 99 ml/min/1.73m2 12/17 Comp Metabolic Sra335 BUN 15 mg/dL 12/18/2015 Comp Metabolic Gew223 B/ C Ratio 23.8 Ratio 12/18/2015 Comp Metabolic Jfc375 CA LCIUM 10.4 mg/dL 12/18/2015 Comp Metabolic Zzq471 AL K PHOS 77 U/L 12/18/2015 Comp Metabolic Mks096 T(SGOT) 19 U/L 12/18/2015 Comp Metabolic Cjl121 AL T(SGPT) 17 U/L 12/18/2015 Comp Metabolic Oan313 BI LI T 0.8 mg/dL 12/18/2015 Comp Metabolic Alz534 AL BUMIN 4.3 g/dL 12/18/2015 Comp Metabolic Jxg485 TP RO 6.7 g/dL 12/18/2015 Comp Metabolic Tno867 GL OB 2.4 g/dL 12/18/2015 Comp Metabolic Gaq607 A/ G Ratio 1.7 Ratio 12/18/2015 Comp Metabolic Jsd297 Os mo 276 mOsmo 12/18/2015 Cbc With [...] 29.5 pg 12/18/2015 Cbc With Differential Ord2 Yell% 9.4 % 12/18/2015 Cbc With Differential Ord2 [...] 2.57 K/ul 12/18/2015 Cbc With Differential Ord2 Yell ABS# 0.8 K/ul 12/18/2015 Cbc With Differential Ord2 Eos ABS# 0.1 K/ul 12/18/2015 Cbc With Differential Ord2 Baso ABS# 0.0 K/ul 12/18/2015 Cbc With Differential Ord2 New Analyzer Notice Please note new ref ranges s tarting 10-15-2015 due to implemntation of new five part differential hematolgy analyzer. 12/18/2015 Total T3 Ord42 TT3 1.0 ng/ml 07/10/2015 Free T4 Hpp399 FREE T4 0.90 ng/dL 07/09/2015 Free T3 Dij740 Free T3 2.92 pg/ml 07/09/2015 Tsh Ord6 hTSH II 1.18 uIU/mL 07/09/2015 URINALYSIS NONAUTO W/O SCOPE 50017 Specific [place] 1.005 DateTime(Free Text in Aprima) URINALYSIS NONAUTO W/O SCOPE 90687 PH 6 DateTime(Free Text in Aprima) URINALYSIS NONAUTO W/O SCOPE 46994 GLUCOSE neg DateTime(Free Dano t in Aprima) URINALYSIS NONAUTO W/O SCOPE 13288 Protein neg DateTime(Free Dano t in Aprima) URINALYSIS NONAUTO W/O SCOPE 86594 Blood neg DateTime(Free Dano t in Aprima) URINALYSIS NONAUTO W/O SCOPE 96444 Bilirubin neg DateTime(Free Dano t in Aprima) URINALYSIS NONAUTO W/O SCOPE 78972 Ketones neg DateTime(Free Dano t in Aprima) URINALYSIS NONAUTO W/O SCOPE 40914 Urobilinogen neg DateTime(Free Text in Aprima) URINALYSIS NONAUTO W/O SCOPE 90364 Nitrite neg DateTime(Free Dano t in Aprima) URINALYSIS NONAUTO W/O SCOPE 20729 Leukocytes neg DateTime(Free Text in Aprima) Review [...] accomodation 11/18/2017 None Full Exam - General 1995 Ears/Nose/Throat lips/teeth/gingiva Overall: benign lips 11/18/2017 None [...] rhythm 12/10/2013 None Full Exam - General 1995 Neurologic gait Conventional walking: wide-based 12/10/2013 None [...] Formatting Model/CDA Sections, Assigned to/Kimberley Fagan CPT-4: 71510Mrdfgbd 07/06/2018 ADMIN INFLUENZA VIRU S VAC CPT-4: G0008 07/05/2017 FLU VACC PRSV FREE I NC ANTIG CPT-4: 90010 07/05/2017 THER/PROPH/DIAG INJ SC/IM CPT-4: 79148 11/05/2016 TRIAMCINOLONE ACET I [place] NOS CPT-4: J3301 11/05/2016 TRIAMCINOLONE ACET I [place] NOS CPT-4: J3301 09/16/2014 DRAIN/INJECT JOINT/B URSA CPT-4: 12953 09/16/2014 KETOROLAC TROMETHAMI NE INJ CPT-4: J1885 03/20/2014 URINALYSIS NONAUTO W /O SCOPE CPT-4: 27273 12/10/2013 PRESCRIP TRANSMIT A ERX SY CPT-4: G8553 09/17/2013 PRESCRIP TRANSMIT A ERX SY CPT-4: G8553 06/08/2012 TRIAMCINOLONE ACET I [place] NOS CPT-4: J3301 03/16/2012 INJ TRIGGER POINT 1/ 2 MUSCL CPT-4: 90280 03/16/2012 PRESCRIP TRANSMIT A ERX SY CPT-4: G8553 03/16/2012 ADMIN INFLUENZA VIRU S VAC CPT-4: G0008 07/13/2011 FLULAVAL VACC, 3 YRS & >, IM CPT-4: Q2036 07/13/2011 ADMIN PNEUMOCOCCAL V ACCINE SNOMED CT: 78374377 CPT-4: G0009 07/13/2011 Pneumococcal Polysac charide Vaccine, 23-Valent, Ad CPT-4: 39054 07/13/2011 Vital Signs Date Vital 08/14/2018 Blood Pressure 1: 140/80 Code: 8480-6 BMI: 37.2 Code: 16253-6 Heart Rate 1: 76 bpm Height: 5'3" SpO2: 96% Weight: 210 lbs 05/22/2018 Blood Pressure 1: 150/62 Code: 8480-6 BMI: 36.7 Code: 04785-8 Heart Rate 1: 74 bpm Height: 5'3" SpO2: 98% Weight: 207 lbs 11/18/2017 Blood Pressure 1: 122/66 Code: 8480-6 BMI: 35.8 Code: 61902-6 Heart Rate 1: 59 bpm Height: 5'3" SpO2: 97% Weight: 202 lbs 08/03/2017 Blood Pressure 1: 122/60 Code: 8480-6 BMI: 36.0 Code: 49505-6 Heart Rate 1: 60 bpm Height: 5'3" SpO2: 97% Weight: 203 lbs 07/05/2017 Blood Pressure 1: 140/76 Code: 8480-6 BMI: 36.0 Code: 57554-2 Heart Rate 1: 58 bpm Height: 5'3" SpO2: 98% Weight: 203 lbs 12/02/2016 Blood Pressure 1: 122/70 Code: 8480-6 BMI: 34.4 Code: 51819-5 Heart Rate 1: 66 bpm Height: 5'3" SpO2: 99% Temperature: 36.4 (C ) / 97.5 (F) Weight: 194 lbs 11/22/2016 Blood Pressure 1: 102/60 Code: 8480-6 BMI: 34.2 Code: 26329-8 Heart Rate 1: 110 bpm Height: 5'3" SpO2: 98% Temperature: 36.7 (C ) / 98.0 (F) Weight: 193 lbs 11/05/2016 Blood Pressure 1: 140/62 Code: 8480-6 BMI: 36.1 Code: 75087-6 Heart Rate 1: 102 bpm Height: 5'3" SpO2: 97% Temperature: 37.1 (C ) / 98.7 (F) Weight: 204 lbs 07/22/2016 Blood Pressure 1: 158/80 Code: 8480-6 Blood Pressure 1: 160/76 Code: 8480-6 BMI: 36.8 Code: 49360-5 Heart Rate 1: 56 bpm Height: 5'3" SpO2: 98% Weight: 208 lbs 05/19/2016 Blood Pressure 1: 150/78 Code: 8480-6 Blood Pressure 1: 122/69 Code: 8480-6 BMI: 37.0 Code: 63507-9 Heart Rate 1: 61 bpm Height: 5'3" SpO2: 98% Weight: 209 lbs 02/13/2016 Blood Pressure 1: 140/76 Code: 8480-6 BMI: 36.8 Code: 35047-0 Heart Rate 1: 64 bpm Height: 5'3" SpO2: 97% Weight: 208 lbs 01/13/2016 Blood Pressure 1: 170/70 Code: 8480-6 BMI: 36.8 Code: 81852-3 Heart Rate 1: 65 bpm Height: 5'3" SpO2: 95% Weight: 208 lbs 01/02/2016 Blood Pressure 1: 150/88 Code: 8480-6 BMI: 36.8 Code: 10977-5 Heart Rate 1: 61 bpm Height: 5'3" SpO2: 98% Weight: 208 lbs 12/18/2015 Blood Pressure 1: 148/90 Code: 8480-6 BMI: 37.6 Code: 50435-6 Heart Rate 1: 64 bpm Height: 5'3" SpO2: 96% Weight: 212 lbs 09/08/2015 Blood Pressure 1: 130/88 Code: 8480-6 BMI: 37.0 Code: 62658-6 Heart Rate 1: 62 bpm Height: 5'3" SpO2: 97% Weight: 209 lbs 07/09/2015 Blood Pressure 1: 142/82 Code: 8480-6 BMI: 36.4 Code: 27999-7 Heart Rate 1: 66 bpm Height: 5'3" SpO2: 97% Weight: 205 lbs 5 oz 01/16/2015 Blood Pressure 1: 122/80 Code: 8480-6 BMI: 35.6 Code: 92195-5 Heart Rate 1: 67 bpm Height: 5'3" SpO2: 98% Weight: 201 lbs 01/03/2015 Blood Pressure 1: 122/70 Code: 8480-6 BMI: 35.6 Code: 79796-9 Heart Rate 1: 61 bpm Height: 5'3" Respiratory Rate: 16 bpm SpO2: 98% Weight: 201 lbs 09/16/2014 Blood Pressure 1: 132/78 Code: 8480-6 BMI: 34.9 Code: 05705-9 Heart Rate 1: 56 bpm Height: 5'3" Weight: 197 lbs 08/15/2014 Blood Pressure 1: 152/80 Code: 8480-6 Blood Pressure 2: 160/82 Code: 8480-6 BMI: 34.0 Code: 05241-3 Heart Rate 1: 75 bpm Height: 5'3" Weight: 192 lbs 06/12/2014 Blood Pressure 1: 136/82 Code: 8480-6 BMI: 34.9 Code: 17928-1 Heart Rate 1: 58 bpm Height: 5'3" SpO2: 96% Weight: 197 lbs 03/20/2014 Blood Pressure 1: 140/72 Code: 8480-6 BMI: 34.9 Code: 82754-8 Heart Rate 1: 60 bpm Height: 5'3" Weight: 197 lbs 12/10/2013 Blood Pressure 1: 132/78 Code: 8480-6 BMI: 35.1 Code: 60739-4 Heart Rate 1: 68 bpm Height: 5'3" Weight: 198 lbs 09/17/2013 Blood Pressure 1: 128/78 Code: 8480-6 BMI: 34.9 Code: 28854-0 Heart Rate 1: 68 bpm Height: 5'3" Weight: 197 lbs 05/21/2013 Blood Pressure 1: 128/82 Code: 8480-6 BMI: 35.6 Code: 85009-9 Heart Rate 1: 80 bpm Height: 5'3" Weight: 201 lbs 01/17/2013 Blood Pressure 1: 138/72 Code: 8480-6 BMI: 36.7 Code: 06002-5 Heart Rate 1: 60 bpm Height: 5'3" [...] 1: 140/78 Code: 8480-6 BMI: 40.0 Code: 47559-5 Heart Rate 1: 64 bpm Height: 5'3" Respiratory Rate: 16 bpm Weight: 226 lbs 11/04/2011 Blood Pressure 1: 136/76 Code: 8480-6 Heart Rate 1: 68 bpm Respiratory Rate: 16 bpm Weight: 226 lbs 07/13/2011 Blood Pressure 1: 142/80 Code: 8480-6 BMI: 40.0 Code: 79734-4 Heart Rate 1: 60 bpm Height: 5'4" [...] Encounters Encounter Performer Loca tion Codes Date ([id number]) [id number] EST. P ATIENT, LEVEL III Diagnosis: Acute recurrent maxillary sinusitis[ICD10: J01.01] [facility] CPT-4: 51679 08/14/2018 [id number] EST. PATIENT, LEVEL III Diagnosis: Pain in right shoulder[ICD10: M25.511] Diagnosis: Pain in right arm[ICD10: M79.601] [facility] CPT-4: 72909 05/22/2018 [id number]) [id number] EST. 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 PATIENT, LEVEL III Diagnosis: Other specified intestinal infections[ICD10: A08.8] Willow Manuel MD, [facility] CPT-4: 72138 08/03/2017 ([id number]) 23549 EST. 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 P ATIENT, LEVEL III Diagnosis: Essential (primary) hypertension[ICD10: I10] Юлия Manuel MD, [facility] CPT-4: 59475 12/02/2016 ([id number]) 20801 EST. P ATIENT, LEVEL III Diagnosis: Essential (primary) hypertension[ICD10: I10] Diagnosis: Allergic rhinitis due to pollen[ICD10: J30.1] Giuliana Manuel [facility] CPT-4: 70462 11/22/2016 [id number] EST. PATIENT, LEVEL III Diagnosis: Acute laryngopharyngitis[ICD10: J06.0] Diagnosis: Influenza due to unidentified influenza virus with other respiratory manifestations[ICD10: J11.1] Willow Manuel MD, [facility] CPT-4: 30500 11/05/2016 ([id number]) 64861 EST. P ATIENT, LEVEL III Diagnosis: Gastro-esophageal reflux disease without esophagitis[ICD10: K21.9] Diagnosis: Essential (primary) hypertension[ICD10: I10] Giuliana Manuel MD, C CPT-4: 20908 07/22/2016 ([id number]) 07517 EST. P ATIENT, LEVEL IV Diagnosis: Essential (primary) hypertension[ICD10: I10] Diagnosis: Abdominal distension (gaseous)[ICD10: R14.0] Giuliana Manuel MD, C CPT-4: 33563 05/19/2016 ([id number]) 06572 EST. P ATIENT, LEVEL III Diagnosis: Essential (primary) hypertension[ICD10: I10] Юлия Manuel MD, [facility] CPT-4: 31573 02/13/2016 ([id number]) 47097 EST. P ATIENT, LEVEL III Diagnosis: Essential (primary) hypertension[ICD10: I10] Юлия Manuel MD, [facility] CPT-4: 02479 01/13/2016 02643 EST. PATIENT, LEVEL IV Diagnosis: Essential (primary) hypertension[ICD10: I10] Diagnosis: Body mass index (BMI) 36.0-36.9, adult[ICD10: Z68.36] Willow Manuel MD, [facility] CPT-4: 48105 01/02/2016 ([id number]) 68495 EST. P ATIENT, LEVEL III Diagnosis: Essential (primary) hypertension[ICD10: I10] Юлия Manuel MD, [facility] CPT-4: 35230 12/18/2015 ([id number]) 18107 EST. P ATIENT, LEVEL IV Diagnosis: Essential (primary) hypertension[ICD10: I10] Diagnosis: Benign paroxysmal vertigo, bilateral[ICD10: H81.13] Diagnosis: Radiculopathy, cervical region[ICD10: M54.12] Giuliana Manuel MD, C CPT-4: 01061 09/08/2015 ([id number]) 47075 EST. P ATIENT, LEVEL IV Diagnosis: Other specified nonscarring hair loss[ICD10: L65.8] Diagnosis: Myositis, unspecified[ICD10: M60.9] Diagnosis: Psoriasis, unspecified[ICD10: L40.9] Diagnosis: Essential (primary) hypertension[ICD10: I10] Giuliana Manuel MD, C CPT-4: 20373 07/09/2015 ([id number]) 50783 EST. P ATIENT, LEVEL III Diagnosis: ESSENTIAL HYPERTENSION[ICD9: 401.9] Giuliana Manuel MD, [facility] CPT- 4: 08949 01/16/2015 ([id number]) 89669 EST. P ATIENT, LEVEL III Diagnosis: Shoulder pain[ICD9: 719.41] Diagnosis: ESSENTIAL HYPERTENSION[ICD9: 401.9] Diagnosis: PALPITATIONS[ICD9: 785.1] Giuliana Manuel MD [facility] CPT-4: 53102 01/03/2015 ([id number]) 69160 EST. P ATIENT, LEVEL III Diagnosis: Sacroiliitis[ICD9: 720.2] Diagnosis: Back pain[ICD9: 724.5] Diagnosis: ESSENTIAL HYPERTENSION[ICD9: 401.9] Giuliana Manuel MD [facility] CPT- 4: 16944 09/16/2014 ([id number]) 76269 EST. P ATIENT, LEVEL IV Diagnosis: ESSENTIAL HYPERTENSION[ICD9: 401.9] Diagnosis: Arrhythmia[ICD9: 427.9] Diagnosis: Nausea[ICD9: 787.02] Giuliana Manuel MD [facility] CPT-4: 88668 08/15/2014 ([id number]) 00620 EST. P ATIENT, LEVEL IV Diagnosis: ESSENTIAL HYPERTENSION[ICD9: 401.9] Diagnosis: Back pain[ICD9: 724.5] Diagnosis: Allergic reaction[ICD9: 995.3] Giuliana Manuel MD [facility] CPT-4: 70558 06/12/2014 ([id number]) 72887 EST. P ATIENT, LEVEL III Diagnosis: Thoracic back pain[ICD9: 724.1] Diagnosis: MYALGIA AND MYOSITIS[ICD9: 729.1] Giuliana Manuel MD [facility] CPT-4: 16145 03/20/2014 ([id number]) 97929 EST. P ATIENT, LEVEL IV Diagnosis: HYPERLIPIDEMIA[ICD9: 272.4] Diagnosis: ESSENTIAL HYPERTENSION[SNOMED: 11327051] Diagnosis: ABDOM PAIN NOS SITE[ICD9: 789.00] Giuliana Manuel MD [facility] CPT-4: 85737 12/10/2013 ([id number]) 59042 EST. P ATIENT, LEVEL IV Diagnosis: ESSENTIAL HYPERTENSION[SNOMED: 33219002] Diagnosis: HYPERLIPIDEMIA[ICD9: 272.4] Giuliana Manuel MD [facility] CPT-4: 51472 09/17/2013 ([id number]) 42349 EST. P ATIENT, LEVEL IV Diagnosis: ESSENTIAL HYPERTENSION[SNOMED: 80603243] Diagnosis: OBESITY[ICD9: 278.00] Diagnosis: Back pain[ICD9: 724.5] Giuliana Manuel MD, [facility] CPT-4: 38850 05/21/2013 ([id number]) 57522 EST. P ATIENT, LEVEL IV Diagnosis: ESSENTIAL HYPERTENSION[SNOMED: 61406940] Diagnosis: HYPERLIPIDEMIA[ICD9: 272.4] Diagnosis: Abdominal pain[ICD9: 789.00] Diagnosis: BENIGN PAROXYSMAL VERTIGO[ICD9: 386.11] Giuliana Manuel MD, [facility] CPT-4: 29983 01/17/2013 ([id number]) 21478 EST. P ATIENT, LEVEL IV Diagnosis: ESSENTIAL HYPERTENSION[SNOMED: 28292896] Diagnosis: BENIGN PAROXYSMAL VERTIGO[ICD9: 386.11] Diagnosis: Hair loss[ICD9: 704.00] Diagnosis: Vitamin d deficiency[ICD9: 268.9] Diagnosis: Bleeding from the nose[ICD9: 784.7] Giuliana Manuel MD, [facility] CPT- 4: 12155 09/20/2012 69582 EST. PATIENT, LEVEL IV Diagnosis: BPPV (benign paroxysmal positional vertigo)[ICD9: 386.11] Diagnosis: HYPERLIPIDEMIA[ICD9: 272.4] Diagnosis: ESSENTIAL HYPERTENSION[SNOMED: 35557281] Giuliana Manuel MD, [facility] CPT-4: 85327 06/08/2012 ([id number]) 39868 EST. P ATIENT, LEVEL IV Diagnosis: BPPV (benign paroxysmal positional vertigo)[ICD9: 386.11] Diagnosis: Diverticulitis[ICD9: 562.11] Diagnosis: Abdominal pain[ICD9: 789.00] Giuliana Manuel MD, [facility] CPT-4: 44344 04/10/2012 ([id number]) 84623 EST. P ATIENT, LEVEL III Diagnosis: Neck pain[ICD9: 723.1] Diagnosis: Acute upper back pain[ICD9: 724.1] Giuliana Manuel MD, [facility] CPT- 4: 40250 03/16/2012 ([id number]) 76304 EST. P ATIENT, LEVEL IV Diagnosis: HYPERLIPIDEMIA[ICD9: 272.4] Diagnosis: ESSENTIAL HYPERTENSION[SNOMED: 77345361] Diagnosis: Constipation - functional[ICD9: 564.09] Giuliana Manuel MD, [facility] CPT-4: 92952 02/03/2012 ([id number]) 15716 EST. P ATIENT, LEVEL IV Diagnosis: HYPERLIPIDEMIA[ICD9: 272.4] Diagnosis: VITAMIN DEFICIENCY[ICD9: 269.2] Diagnosis: ESSENTIAL HYPERTENSION[SNOMED: 52788747] Giuliana Manuel MD, [facility] CPT-4: 93207 11/04/2011 89871 EST. 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 Call if symptoms do not show improvement. 08/14/2018 Patient Education: Patient Medication Summary Completed 08/14/2018 Appointment: Injection 07/06/2018 Patient Education: Patient Medication Summary Completed 07/06/2018 Visit Plan: Right arm/shoulder pain - the patient was instructed in appropriate posture. The pt is to use prn antiinflammatories to manage acute pain. The patient is to call the office if the pain is worsening or does not improve. 05/22/2018 Appointment: Willow Garcia WPtel: [address] [place], [place] [address] (15 min) Moderate 05/22/2018 Patient Education: Patient [...] improving. 11/18/2017 Appointment: Giuliana Manuel WPtel: [address] [facility] (15 min) Moderate 11/18/2017 Patient Education: Patient Medication Summary Completed 11/18/2017 Appointment: Giuliana Manuel WPtel: [facility]8 [facility] (15 min) Moderate 11/07/2017 Visit Plan: Diarrhea [...] not improved. 08/03/2017 Appointment: Willow Garcia WPtel: [facility]9 [facility] (30 min) Complex 08/03/2017 Patient Education: [...] daily. 07/05/2017 Appointment: Giuliana Manuel WPtel: [phone] [facility] (15 min) Moderate 07/05/2017 Patient Education: Patient Medication Summary Completed 07/05/2017 Patient Education: Obesity Completed 07/05/2017 Appointment: Giuliana Manuel WPtel: [facility]5 [facility] (15 min) Moderate 06/27/2017 Appointment: Giuliana Manuel WPtel: [facility]5 [facility] (15 min) Moderate 06/21/2017 Appointment: Юлия Rojas WPtel: [facility]4 [phone] [place] (30 min) Complex 12/23/2016 Visit [...] RESTART HCTZ 12/02/2016 Appointment: Юлия Rojas WPtel: [phone] [place] (30 min) Complex 12/02/2016 Patient Education: [...] 7 days 11/22/2016 Appointment: Giul[facility] Manuel [facility]el: [phone] (15 min) Moderate 11/22/2016 Patient Education: Patient Medication Summary Completed 11/22/2016 Patient Education: Obesity Completed 11/22/2016 Visit Plan: Influenza - pt started on tamiflu - pt to start on anti-inflammatories, tylenol and monitor symptoms. Pt to call if not improving. Pt to alert any close contacts as to illness. 11/05/2016 Appointment: [facility] ([facility] min) Complex 11/05/2016 Patient [...] on carafate 07/22/2016 Appointment: Giuliana Manuel [facility]Ptel: [phone] (15 min) Moderate 07/22/2016 Patient Education: Patient Medication Summary Completed 07/22/2016 Patient Education: Obesity Completed 07/22/2016 Care Plan: Referral Order SNOMED-CT : [id number] Pending 07/22/2016 Visit Plan: Hypertension - well [...] Completed 05/19/2016 Appointment: Giuliana Manuel [facility]Ptel: [phone] (15 min) Moderate 05/17/2016 Visit Plan: Hypertension - well con trolled - continue with current medications, continue with no added salt diet. Pt has been encouraged to exercise daily. The pt has been advised to call the office if there are any acute concerns about change in blood pressure readings at home. 02/13/2016 Appointment: Юлия Rojas [phone] (30 min) Complex 02/13/2016 Patient [...] Obesity Completed 12/18/2015 Appointment: Giuliana Manuel WPtel: [facility]5 [facility] (15 min) Moderate 12/08/2015 Referral: Jared Lafleur [address] [facility] Referral Completed 10/17/2015 Visit Plan: Hypertension [...] test. 09/08/2015 Appointment: Giuliana Manuel WPtel: [phone] [facility] (15 min) Moderate 09/08/2015 Patient Education: Patient Medication Summary Completed 09/08/2015 Patient Education: .Cervicalgia Neck Pain Completed 09/08/2015 Care Plan: Referral Order SNOMED-CT : [id number] Ordered 09/08/2015 Visit Plan: Hypertension - uncontro [...] checked today. 07/09/2015 Appointment: Giuliana Manuel WPtel: [address] [place], [place] [phone] (15 min) Moderate 07/09/2015 Patient Education: Patient Medication Summary Completed 07/09/2015 Appointment: Giuliana Manuel WPtel: [address] [place], [place] [phone] (15 min) Moderate 07/07/2015 Appointment: Giuliana Manuel WPtel: [address] [place], [place] [phone] Follow up 03/17/2015 Visit Plan: Hypertension - well con trolled - continue with current medications, continue with no added salt diet. Pt has been encouraged to exercise daily. The pt has been advised to call the office if there are any acute concerns about change in blood pressure readings at home. Palpitations resolved. 01/16/2015 Appointment: Giuliana Manuel WPtel: [address] [place], [place] [phone] Other 01/16/2015 Patient Education: Patient Medication Summary [...] symptoms. 01/03/2015 Appointment: Giuliana Manuel [facility]Ptel: [phone] Follow up 01/03/2015 Patient Education: Patient Medication Summary Completed 01/03/2015 Patient Education: Hypertension Completed 01/03/2015 Visit Plan: Hypertension - well zoe de [...] [facility]Ptel: [phone] Follow up 09/09/2014 Visit Plan: Hypertension - [...] symptoms worsen. 08/15/2014 Appointment: Giuliana Manuel WPtel: [address] [place], [place] [phone] Sick 08/15/2014 Patient Education: Patient Medication Summary Completed 08/15/2014 Patient Education: Hypertension Completed 08/15/2014 Care Plan: Referral Order SNOMED-CT : [id number] Ordered 08/15/2014 Appointment: Giuliana Manuel WPtel: [address] [place], [place] [phone] Follow up 06/18/2014 Visit Plan: Back pain - referral to [facility] physical therapy. Rash - reaction [...] at home. 06/12/2014 Appointment: Giuliana Manuel WPtel: [address] [place], [place] [phone] Sick 06/12/2014 Patient Education: Patient Medication Summary Completed 06/12/2014 Patient Education: Hypertension Completed 06/12/2014 Care Plan: Referral Order SNOMED-CT : [id number] Ordered 06/12/2014 Visit Plan: Hypertension - well [...] spine xrays. 03/20/2014 Appointment: Giuliana Manuel WPtel: [address] [place], [place] [phone] Follow up 03/20/2014 Patient Education: Patient Medication [...] [facility]el: [phone] Follow up 12/10/2013 Patient Education: Patient Medication [...] weekly. 09/17/2013 Appointment: Giuliana Manuel WPtel: [phone] Follow up 09/17/2013 Patient Education: Patient Medication [...] [facility]Ptel: [phone] Follow up 05/21/2013 Patient Education: Patient Medication [...] the vertigo. 01/17/2013 Appointment: Giuliana Manuel WPtel: [phone] Follow up 01/17/2013 Patient Education: Patient Medication [...] if needed. 09/20/2012 Appointment: Giuliana Manuel WPtel: [address] [place], [place] [phone] Follow up 09/20/2012 Patient Education: Patient Medication [...] intolerance begin. 06/08/2012 Appointment: Giuliana Manuel WPtel: [address] [place], [place] [phone] Follow up 06/08/2012 Patient Education: Patient Medication [...] or popcorn. 04/10/2012 Appointment: Giuliana Manuel WPtel: [address] [place], [place] [phone] Other 04/10/2012 Patient Education: Patient Medication Summary [...] by Tuesday. 03/16/2012 Appointment: Giuliana Manuel WPtel: [address] [place], [place] [address] [facility] 03/16/2012 Patient Education: Patient Medication Summary Completed [...] regimen. 02/03/2012 Appointment: Giuliana Manuel WPtel: [phone] [facility] Other 02/03/2012 Patient Education: Patient Medication Summary Completed 02/03/2012 Patient Education: High Blood Pressure: Essential Hypertension Completed 02/03/2012 Patient Education: .Amazing yana Soni Completed 02/03/2012 Visit Plan: Hyperlipidemia - [...] a week. 11/04/2011 Appointment: Giuliana Manuel WPtel: [phone] Follow up 11/04/2011 Patient Education: Patient Medication [...] shot 07/13/2011 Appointment: Giuliana Manuel WPtel: [phone] [place] Other 07/13/2011 Patient Education: Patient Medication Summary Completed 07/13/2011 Patient Education: .Gage Wilder tic meal planning guide Completed 07/13/2011 Referral: Jared Lafleur [facility] [place] Referral Appointment Requested Referral: Duarte Catalan Referral Appointment Requested Referral: Dr. Willams WPtel: [address] [facility] [place] Referral Initiated Referral: [facility] WPtel: [address] [facility] [place] Referral Initiated Instructions Comment [...] . Back pain - referr al to [facility] physical therapy. Rash - reaction [...]
--- OUTSIDE RECORDS SUMMARY | 2020-01-21 14:32 | XMS REPORT | CCD ---
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 Marital status Unknown M arried 07/13/[address]: 744792521 Nonsmoker 07/13/[address]: 017244450 Never drinks alcohol 07/13/2011 Allergies, Adverse Reactions, Alerts Substance Reaction Codes Entered Date Inactivated Date Status Soy Unknown 07/13/2011 No Inactive Date Active Cardizem RxNorm: 075861 05/19/2016 No Inactive Date Active Metoprolol Succinate [...] pain ICD-9: 789.00 Active 07/13/2011 Unknown 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 Active 07/13/2011 Unknown OBESITY ICD-9: [...] Abdominal pain ICD-9: 789.00 07/13/2011 Active 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 07/13/2011 Active OBESITY ICD-9: 278.00 07/13/2011 Active Postprandial bloating ICD-9: 787.3 07/13/2011 Active Seasonal allergies ICD- 9: 477.9 07/13/2011 Active VAC STREP PNEUMONIAE -FLU ICD-9: V06.6 07/13/2011 Active Medications Medication Codes Instruc tions Start Date Stop Date Sta tus Fill Instructions amoxicillin 500 mg t ablet RxNorm: 871733 1 Tablet(s) PO TID 08/14/2018 08/20/2018 Active losartan 25 mg tablet RxNorm: 801147 1 Tablet(s) PO BID 05/02/2018 04/26/2019 Active losartan 25 mg tablet RxNorm: 390206 1 Tablet(s) PO BID 05/02/2018 05/01/2018 Inactive losartan 25 mg tablet RxNorm: 475519 1 Tablet(s) PO BID 01/30/2018 05/01/2018 Inactive Vitamin D 2,000 unit capsule RxNorm: 1 Capsule(s) PO daily 11/18/2017 No Stop Date Active clonidine HCl 0.1 mg tablet RxNorm: 256337 1/2 Tablet(s) PO BID 11/18/2017 11/12/2018 Active doxazosin 1 mg tablet RxNorm: 284061 1 Tablet(s) PO daily at midnight 11/18/2017 11/12/2018 Ac tive midnight hydrochlorothiazide 12.5 mg tablet RxNorm: 828092 1 Tablet(s) PO daily 11/18/2017 11/12/2018 Ac tive atenolol 25 mg tablet RxNorm: 799057 1 Tablet(s) PO daily 11/18/2017 11/12/2018 Active famotidine 40 mg tablet RxNorm: 517262 1 Tablet(s) PO daily TAKE 1 TABLET BY [facility] EVERY MORNING 11/18/2017 11/12/2018 Active - Ref: [id number] atenolol 25 mg tablet RxNorm: 264662 1 Tablet(s) PO BID managed by Dr Lafleur 11/18/2017 11/17/2017 In active losartan 25 mg tablet RxNorm: 275128 1 Tablet(s) PO BID 11/18/2017 01/29/2018 Inactive hydrochlorothiazide 12.5 mg tablet RxNorm: 545374 1 Tablet(s) PO daily 10/28/2017 11/17/2017 In active famotidine 40 mg tablet RxNorm: 960179 TAKE 1 TABLET BY MOUTH EVERY MORNING 10/04/2017 11/17/2017 In active - Ref: [id number] clonidine HCl 0.1 mg tablet RxNorm: 505077 1/2 Tablet(s) PO BID 07/05/2017 11/17/2017 Inactive doxazosin 1 mg tablet RxNorm: 174803 1 Tablet(s) PO daily at midnight 07/05/2017 11/17/2017 In active midnight doxazosin 1 mg tablet RxNorm: 696417 1 Tablet(s) PO BID 12/02/2016 2017 Inactive midnight prednisone 20 mg tablet RxNorm: 624074 3 Tablet(s) PO daily 11/22/2016 11/26/2016 Inactive Tessalon Perles 100 mg capsule RxNorm: 316028 1 -2 Capsule(s) PO TI D as needed cough 11/19/2016 No Stop Date Active Zithromax Z-Jeff 250 mg tablet RxNorm: 577589 1 Tablet(s) PO UD 11/19/2016 12/01/2016 Inactive z pack as directed Tamiflu 75 mg capsule RxNorm: 479798 1 Capsule(s) PO BID 11/05/2016 11/09/2016 Inactive Kenalog 40 mg/mL karl pension for injection RxNorm: 3933787 Milliliter(s) Inj 11/05/2016 11/05/2016 In active Tessalon Perles 100 mg capsule RxNorm: 928483 1 -2 Capsule(s) PO TI D as needed cough 11/04/2016 11/18/2016 Inactive famotidine 40 mg tablet RxNorm: 261780 1 Tablet(s) PO QAM 10/25/2016 10/03/2017 Inactive famotidine 40 mg tablet RxNorm: 713855 1 Tablet(s) PO QAM 08/02/2016 10/24/2016 Inactive Carafate 1 gram tablet RxNorm: 278939 1 Tablet(s) PO TID DISSOLVE THE PILL IN 10ML OF WATER 07/22/2016 10/19/2016 Inactive clonidine HCl 0.1 mg tablet RxNorm: 218854 1 Tablet(s) PO BID an d 1 tablet as needed 07/22/2016 12/01/2016 Inactive aspirin 81 mg tablet ,delayed release RxNorm: 745569 1 Tablet(s) PO QHS 05/19/2016 No Stop Date Active Cinnamon 1000 mg RxNorm: 1 PO daily 05/19/2016 No Stop Date Active losartan 25 mg tablet RxNorm: 257610 1 Tablet(s) PO BID 05/19/2016 11/17/2017 Inactive atenolol 25 mg tablet RxNorm: 710591 1.5 Tablet(s) PO BID 02/13/2016 07/21/2016 Inactive losartan 25 mg tablet RxNorm: 100250 2 Tablet(s) PO BID 01/13/2016 05/11/2016 Inactive Cardizem CD 240 mg c apsule,extended release RxNorm: 238806 1 Capsule(s) PO daily 01/13/2016 02/12/2016 In active losartan 100 mg tablet RxNorm: 115970 1/2 Tablet(s) PO BID 01/08/2016 01/12/2016 Inactive losartan 25 mg tablet RxNorm: 635390 2 Tablet(s) PO QPM 1 Tablet(s) PO QPM 12/18/2015 01/07/2016 In active atenolol 25 mg tablet RxNorm: 078107 1.5 Tablet(s) PO BID TAKE ONE TABLET BY MOUTH TWICE A DAY 12/18/2015 01/12/2016 Inactive atenolol 25 mg tablet RxNorm: 588375 Tablet(s) TAKE ONE TABLET BY MOUTH TWICE A DAY 11/14/2015 12/17/2015 Inactive losartan 25 mg tablet RxNorm: 830325 Tablet(s) 1 Tablet(s) PO QPM 11/14/2015 12/17/2015 Inactive spironolactone 25 mg tablet RxNorm: 733706 1 Tablet(s) PO daily 11/14/2015 12/14/2015 Inactive atenolol 25 mg tablet RxNorm: 192374 TAKE ONE TABLET BY MOUTH TWICE A DAY 08/07/2015 11/13/2015 In active atenolol 25 mg tablet RxNorm: 783457 1 Tablet(s) PO daily TAKE ONE TABLET BY MOUTH TWICE DAILY 08/06/2015 08/06/2015 Inactive Generic For:TENORMIN 25 MG TABLET 05/05/2015 10:00:22 AM atenolol 25 mg tablet RxNorm: 630568 1 Tablet(s) PO daily TAKE ONE TABLET BY MOUTH TWICE DAILY 08/06/2015 08/05/2015 Inactive Generic For:TENORMIN 25 MG TABLET 05/05/2015 10:00:22 AM betamethasone diprop ionate 0.05 % topical ointment RxNorm: 526264 1 TOP TID as needed rash 07/09/2015 05/18/2016 Inactive betamethasone diprop ionate 0.05 % topical ointment RxNorm: 861887 1 TOP TID as needed rash 07/09/2015 07/08/2015 Inactive spironolactone 25 mg tablet RxNorm: 927032 1 Tablet(s) PO daily 07/09/2015 07/08/2015 Inactive spironolactone 25 mg tablet RxNorm: 273736 1 Tablet(s) PO daily 07/09/2015 11/13/2015 Inactive losartan 25 mg tablet RxNorm: 509285 Tablet(s) 1 Tablet(s) PO QPM 05/27/2015 11/13/2015 Inactive atenolol 25 mg tablet RxNorm: 186514 TAKE ONE TABLET BY MOUTH TWICE DAILY 05/05/2015 08/05/2015 In active Generic For:TENORMIN 25 MG TABLET 05/05 10:00:22 AM hydrochlorothiazide 25 mg tablet RxNorm: 609960 1/2 Tablet(s) PO BID 02/17/2015 07/08/2015 Inactive Generic For:HYDRODIURIL 25 MG TABLET sulfamethoxazole 800 mg-trimethoprim 160 mg tablet RxNorm: 673395 1 Tablet(s) PO BID 01/16/2015 01/25/2015 Inactive losartan 25 mg tablet RxNorm: 229870 1 Tablet(s) PO QPM 12/09/2014 05/26/2015 Inactive Kenalog 40 mg/mL karl pension for injection RxNorm: 4198509 1 Milliliter(s) Inj 09/16/2014 09/16/2014 In active prednisone 20 mg tablet RxNorm: 229464 3 Tablet(s) PO daily 09/16/2014 09/18/2014 Inactive losartan 25 mg tablet RxNorm: 061714 1 Tablet(s) PO QPM 08/15/2014 12/08/2014 Inactive hydrochlorothiazide 25 mg tablet RxNorm: 814472 TAKE 1/2 TABLET BY [facility] TWICE DAILY 08/13/2014 02/08/2015 Inactive Generic For:HYDRODIURIL 25 MG TABLET atenolol 25 mg tablet RxNorm: 713244 TAKE ONE TABLET BY MOUTH TWICE DAILY 05/07/2014 05/01/2015 In active Generic For:TENORMIN 25 MG TABLET ketorolac 60 mg/2 mL intramuscular solution RxNorm: 760646 2 Milliliter(s) IM 03/20/2014 03/20/2014 In active hydrochlorothiazide 25 mg tablet RxNorm: 560041 Tablet(s) PO TAKE 1/2 TABLET BY MOUTH TWICE DAILY 02/14/2014 08/12/2014 Inactive Generic For:HYDRODIURIL 25 MG TABLET Generic For:HYDRODIURIL 25 MG TABLET 02/14/2014 3:45:03 PM atorvastatin 10 mg t ablet RxNorm: 059237 1 Tablet(s) PO TIW 09/17/2013 03/19/2014 Inactive atorvastatin 10 mg t ablet RxNorm: 674978 tablet oral 09/17/2013 06/04/2015 Inactive hydrochlorothiazide 25 mg tablet RxNorm: 301912 Tablet(s) PO TAKE 1/2 TABLET BY MOUTH TWICE DAILY 08/06/2013 02/13/2014 Inactive Generic For:HYDRODIURIL 25 MG TABLET Generic For:HYDRODIURIL 25 MG TABLET 08/06/2013 1:52:35 PM amoxicillin 500 mg t ablet RxNorm: 786725 2 Tablet(s) PO 2 tabl ets PO 1 hour before dental procedure. 07/26/2013 07/25/2013 Inactive amoxicillin 500 mg t ablet RxNorm: 626298 2 Tablet(s) PO 2 tabl ets PO 1 hour before dental procedure. 07/26/2013 07/26/2013 Inactive methotrexate sodium 2.5 mg tablet RxNorm: 117420 tablet oral 07/13/2013 01/15/2015 Inactive atenolol 25 mg tablet RxNorm: 715493 Tablet(s) PO TAKE ONE TABLET BY MOUTH TW ICE DAILY 05/01/2013 05/06/2014 Inactive Generic For:TENORMIN 25 MG TABLET hydrochlorothiazide 25 mg tablet RxNorm: 364605 Tablet(s) PO TAKE 1/2 TABLET BY MOUTH TWICE DAILY 11/21/2012 08/05/2013 Inactive Generic For:HYDRODIURIL 25 MG TABLET atenolol 25 mg tablet RxNorm: 071869 Tablet(s) PO TAKE ONE TABLET BY MOUTH TW ICE DAILY 10/02/2012 04/30/2013 Inactive Generic For:TENORMIN 25 MG TABLET gemfibrozil 600 mg t ablet RxNorm: 948069 1 Tablet(s) PO BID 06/08/2012 10/08/2012 Inactive meclizine 25 mg tablet RxNorm: 451599 1 Tablet(s) PO Q4 PRN 06/08/2012 09/05/2012 Inactive prednisone 10 mg Tab RxNorm: 994513 2 Tablet(s) PO daily 03/16/2012 03/20/2012 Inactive atorvastatin 10 mg Tab RxNorm: 902163 1 Tablet(s) PO daily 12/21/2011 12/20/2011 Inactive atorvastatin 10 mg Tab RxNorm: 418619 1 Tablet(s) PO daily 12/21/2011 06/08/2012 Inactive methotrexate sodium 2.5 mg Tab RxNorm: 258780 Tablet(s) PO 11/16/2011 06/12/2012 Inactive 3 on tuesday3 on hydrochlorothiazide 25 mg Tab RxNorm: 658689 1/2 Tablet(s) PO BID 11/01/2011 11/24/2012 Inactive hydrochlorothiazide 12.5 mg Cap RxNorm: 435025 Capsule(s) PO 11/01/2011 06/08/2012 Inactive TAKE ONE TABLET BY MOUTH TWICE DAILY;Gen sky For:MICROZIDE 12.5 MG CAPSULE hydrochlorothiazide 25 mg Tab RxNorm: 626987 1/2 Tablet(s) PO BID 11/01/2011 11/24/2012 Inactive hydrochlorothiazide 25 mg tablet RxNorm: 969584 1/2 Tablet(s) PO BID 11/01/2011 10/31/2011 Inactive hydrochlorothiazide 25 mg Tab RxNorm: 220101 1/2 Tablet(s) PO BID 11/01/2011 10/31/2011 Inactive atenolol 25 mg tablet RxNorm: 304502 Tablet(s) PO 10/04/2011 10/01/2012 Inactive TAKE ONE TABLET BY MOUTH TWICE DAILY;Generic For:TENORMIN 25 MG TABLET hydrochlorothiazide 12.5 mg Cap RxNorm: 335178 1 Capsule(s) PO BID 09/13/2011 10/31/2011 Inactive Influenza Virus Vacc ine 0.5 mL RxNorm: IM 07/13/2011 07/13/2011 Inactive Pneumovax 23 25 mcg/ 0.5 mL Injection RxNorm: 217283 Milliliter(s) Inj 07/13/2011 07/13/2011 In active Phenergan VC-Codeine 6.25 mg-5 mg-10 mg/5 mL syrup RxNorm: 612849 5 Milliliter(s) PO Q6 as needed No Start Date Active [place] 3 Cap RxNorm: 1 Capsule(s) PO BID No Start Date Active Cinnamon 1000 mg RxNorm: 2 PO daily No Start Date Active atenolol 25 mg Tab RxNorm: 852173 1 Tablet(s) PO BID No Start Date 10/03/2011 Inactive niacin ER 500 mg Cap RxNorm: 629897 1 Capsule(s) PO daily No Start Date 06/08/2012 Inactive gemfibrozil 600 mg t ablet RxNorm: 216986 1 Tablet(s) PO BID No Start Date 06/07/2012 Inactive Vitamin C 500 mg Tab RxNorm: 470879 1 Tablet(s) PO daily No Start Date 07/21/2016 Inactive Zithromax Z-Jeff 250 mg tablet RxNorm: 132904 1 Tablet(s) PO UD No Start Date 11/18/2016 Inactive z pack as directed doxazosin 1 mg tablet RxNorm: 351949 1 Tablet(s) PO BID No Start Date 12/01/2016 Inactive vitamin E (dl, aceta te) 400 unit Cap RxNorm: 321229 1 Capsule(s) PO daily No Start Date 07/21/2016 Inactive famotidine 40 mg tablet RxNorm: 813143 1 Tablet(s) PO QAM No Start Date 08/01/2016 Inactive hydrochlorothiazide 25 mg Tab RxNorm: 770232 1/2 Tablet(s) PO BID No Start Date 09/12/2011 Inactive Tessalon Perles 100 mg capsule RxNorm: 935629 1 -2 Capsule(s) PO TI D as needed cough No Start Date 11/03/2016 Inactive aspirin 81 mg Tab, D elayed Release RxNorm: 172029 1 Tablet(s) PO every other day No Start Date 05/18/2016 Inactive Cinnamon 1000 mg RxNorm: 2 PO daily No Start Date 05/18/2016 Inactive clonidine HCl 0.1 mg tablet RxNorm: 820722 1 Tablet(s) PO QHS an d 1 Tablet as needed No Start Date 07/21/2016 Inactive niacin 500 mg tablet RxNorm: 047541 1 Tablet(s) PO QHS No Start Date 01/01/2015 Inactive multivitamin Tab RxNorm: 1 Tablet(s) PO daily No Start Date 07/21/2016 Inactive methotrexate sodium 2.5 mg Tab RxNorm: 346401 Tablet(s) PO No Start Date 11/15/2011 Inactive 3 on tuesday3 on T-Bio RxNorm: 1 PO daily No Start Date 05/18/2016 Inactive Vitamin D 2,000 unit Cap RxNorm: 1 Capsule(s) PO daily No Start Date 07/21/2016 Inactive hydrochlorothiazide 12.5 mg tablet RxNorm: 753059 1 Tablet(s) PO daily No Start Date 10/27/2017 Inactive Medication Administered Medication Codes Instruc tions Start Date Status Kenalog 40 mg/mL suspension for injection RxNorm: 3459339 Milliliter 11/05/2016 No longer Active Kenalog 40 mg/mL suspension for injection RxNorm: 0159732 1Milliliter 09/16/2014 N o longer Active ketorolac 60 mg/2 mL intramuscular solution RxNorm: 276923 2Milliliter 03/20/2014 N o longer Active Pneumovax 23 25 mcg/0.5 mL Injection RxNorm: 059017 Milliliter 07/13/2011 No longer Active Influenza Virus [...] 02/03/2012 VITAMIN DEFICIENCY ICD-9: 269.2 11/04/2011 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 07/13/2011 Postprandial bloating ICD-9: 787.3 [...] Ord64 K 3.8 mEq/L 12/06/2016 Comp Metabolic Lrq660 NA 134 mEq/L 12/03/2016 Comp Metabolic Mqs282 K Specimen 3+ Hemolyzed mEq/L 12/04/19 17 Comp Metabolic Sag945 CL 106 mEq/L 12/03/2016 Comp Metabolic Vol625 CO2 20.0 mEq/L 12/03/2016 Comp Metabolic Hxa830 AN ION GAP 16 12/03/2016 Comp Metabolic Iat677 GL UCOSE 93 mg/dL 12/03/2016 Comp Metabolic Smj200 Cr eat 0.8 mg/dL 12/03/2016 Comp Metabolic Utg507 eG FR 73 ml/min/1.73m2 12/03 Comp Metabolic Dfc734 BUN 14 mg/dL 12/03/2016 Comp Metabolic Eui802 B/ C Ratio 17.1 Ratio 12/03/2016 Comp Metabolic Mnn701 CA LCIUM 9.3 mg/dL 12/03/2016 Comp Metabolic Afh119 AL K PHOS 63 U/L 12/03/2016 Comp Metabolic Oxj342 T(SGOT) 69 U/L 12/03/2016 Comp Metabolic Nvu228 AL T(SGPT) 33 U/L 12/03/2016 Comp Metabolic Wnr671 BI LI T 1.0 mg/dL 12/03/2016 Comp Metabolic Vwd714 AL BUMIN 4.3 g/dL 12/03/2016 Comp Metabolic Wfr348 TP RO 6.7 g/dL 12/03/2016 Comp Metabolic Qxf559 GL OB 2.4 g/dL 12/03/2016 Comp Metabolic Aes917 A/ G Ratio 1.7 Ratio 12/03/2016 Comp Metabolic Cat536 Os mo 268 mOsmo 12/03/2016 Comp Metabolic Qnb895 NA 138 mEq/L 12/18/2015 Comp Metabolic Oej690 K 4.1 mEq/L 12/18/2015 Comp Metabolic Uuj608 CL 104 mEq/L 12/18/2015 Comp Metabolic Xnw887 CO2 22.0 mEq/L 12/18/2015 Comp Metabolic Yyr132 AN ION GAP 16 12/18/2015 Comp Metabolic Cpe633 GL UCOSE 89 mg/dL 12/18/2015 Comp Metabolic Wms527 Cr eat 0.6 mg/dL 12/18/2015 Comp Metabolic Gvt807 eG FR 99 ml/min/1.73m2 12/17 Comp Metabolic Zzv419 BUN 15 mg/dL 12/18/2015 Comp Metabolic Tmj332 B/ C Ratio 23.8 Ratio 12/18/2015 Comp Metabolic Hfj676 CA LCIUM 10.4 mg/dL 12/18/2015 Comp Metabolic Oeh272 AL K PHOS 77 U/L 12/18/2015 Comp Metabolic Bog333 T(SGOT) 19 U/L 12/18/2015 Comp Metabolic Dwm470 AL T(SGPT) 17 U/L 12/18/2015 Comp Metabolic Maj985 BI LI T 0.8 mg/dL 12/18/2015 Comp Metabolic Eow652 AL BUMIN 4.3 g/dL 12/18/2015 Comp Metabolic Eeq535 TP RO 6.7 g/dL 12/18/2015 Comp Metabolic Pkr728 GL OB 2.4 g/dL 12/18/2015 Comp Metabolic Uys768 A/ G Ratio 1.7 Ratio 12/18/2015 Comp Metabolic Tlq927 Os mo 276 mOsmo 12/18/2015 Cbc With [...] 29.5 pg 12/18/2015 Cbc With Differential Ord2 [place]% 9.4 % 12/18/2015 Cbc With Differential Ord2 [...] 2.57 K/ul 12/18/2015 Cbc With Differential Ord2 [place] ABS# 0.8 K/ul 12/18/2015 Cbc With Differential Ord2 Eos ABS# 0.1 K/ul 12/18/2015 Cbc With Differential Ord2 Baso ABS# 0.0 K/ul 12/18/2015 Cbc With Differential Ord2 New Analyzer Notice Please note new ref ranges s tarting 10-15-2015 due to implemntation of new five part differential hematolgy analyzer. 12/18/2015 Total T3 Ord42 TT3 1.0 ng/ml 07/10/2015 Free T4 Lrx213 FREE T4 0.90 ng/dL 07/09/2015 Free T3 Fvt739 Free T3 2.92 pg/ml 07/09/2015 Tsh Ord6 hTSH II 1.18 uIU/mL 07/09/2015 URINALYSIS NONAUTO W/O SCOPE 83762 Specific [place] 1.005 DateTime(Free Text in Aprima) URINALYSIS NONAUTO W/O SCOPE 66997 PH 6 DateTime(Free Text in Aprima) URINALYSIS NONAUTO W/O SCOPE 68202 GLUCOSE neg DateTime(Free Dano t in Aprima) URINALYSIS NONAUTO W/O SCOPE 92437 Protein neg DateTime(Free Dano t in Aprima) URINALYSIS NONAUTO W/O SCOPE 48563 Blood neg DateTime(Free Dano t in Aprima) URINALYSIS NONAUTO W/O SCOPE 90720 Bilirubin neg DateTime(Free Dano t in Aprima) URINALYSIS NONAUTO W/O SCOPE 96450 Ketones neg DateTime(Free Dano t in Aprima) URINALYSIS NONAUTO W/O SCOPE 49816 Urobilinogen neg DateTime(Free Text in Aprima) URINALYSIS NONAUTO W/O SCOPE 56889 Nitrite neg DateTime(Free Dano t in Aprima) URINALYSIS NONAUTO W/O SCOPE 93064 Leukocytes neg DateTime(Free Text in Aprima) Review [...] Formatting Model/CDA Sections, Assigned to/Kimberley Fagan CPT-4: 94539Lpsbblz 07/06/2018 ADMIN INFLUENZA VIRU S VAC CPT-4: G0008 07/05/2017 FLU VACC PRSV FREE I NC ANTIG CPT-4: 74245 07/05/2017 THER/PROPH/DIAG INJ SC/IM CPT-4: 72553 11/05/2016 TRIAMCINOLONE ACET I [place] NOS CPT-4: J3301 11/05/2016 TRIAMCINOLONE ACET I [place] NOS CPT-4: J3301 09/16/2014 DRAIN/INJECT JOINT/B URSA CPT-4: 67137 09/16/2014 KETOROLAC TROMETHAMI NE INJ CPT-4: J1885 03/20/2014 URINALYSIS NONAUTO W /O SCOPE CPT-4: 40407 12/10/2013 PRESCRIP TRANSMIT A ERX SY CPT-4: G8553 09/17/2013 PRESCRIP TRANSMIT A ERX SY CPT-4: G8553 06/08/2012 TRIAMCINOLONE ACET I [place] NOS CPT-4: J3301 03/16/2012 INJ TRIGGER POINT 1/ 2 MUSCL CPT-4: 36068 03/16/2012 PRESCRIP TRANSMIT A ERX SY CPT-4: G8553 03/16/2012 ADMIN INFLUENZA VIRU S VAC CPT-4: G0008 07/13/2011 FLULAVAL VACC, 3 YRS & >, IM CPT-4: Q2036 07/13/2011 ADMIN PNEUMOCOCCAL V ACCINE SNOMED CT: 29388487 CPT-4: G0009 07/13/2011 Pneumococcal Polysac charide Vaccine, 23-Valent, Ad CPT-4: 04683 07/13/2011 Vital Signs Date Vital 08/14/2018 Blood Pressure 1: 140/80 Code: 8480-6 BMI: 37.2 Code: 97955-3 Heart Rate 1: 76 bpm Height: 5'3" SpO2: 96% Weight: 210 lbs 05/22/2018 Blood Pressure 1: 150/62 Code: 8480-6 BMI: 36.7 Code: 67115-2 Heart Rate 1: 74 bpm Height: 5'3" SpO2: 98% Weight: 207 lbs 11/18/2017 Blood Pressure 1: 122/66 Code: 8480-6 BMI: 35.8 Code: 78425-5 Heart Rate 1: 59 bpm Height: 5'3" SpO2: 97% Weight: 202 lbs 08/03/2017 Blood Pressure 1: 122/60 Code: 8480-6 BMI: 36.0 Code: 22996-3 Heart Rate 1: 60 bpm Height: 5'3" SpO2: 97% Weight: 203 lbs 07/05/2017 Blood Pressure 1: 140/76 Code: 8480-6 BMI: 36.0 Code: 95305-8 Heart Rate 1: 58 bpm Height: 5'3" SpO2: 98% Weight: 203 lbs 12/02/2016 Blood Pressure 1: 122/70 Code: 8480-6 BMI: 34.4 Code: 58068-3 Heart Rate 1: 66 bpm Height: 5'3" SpO2: 99% Temperature: 36.4 (C ) / 97.5 (F) Weight: 194 lbs 11/22/2016 Blood Pressure 1: 102/60 Code: 8480-6 BMI: 34.2 Code: 26376-7 Heart Rate 1: 110 bpm Height: 5'3" SpO2: 98% Temperature: 36.7 (C ) / 98.0 (F) Weight: 193 lbs 11/05/2016 Blood Pressure 1: 140/62 Code: 8480-6 BMI: 36.1 Code: 39819-6 Heart Rate 1: 102 bpm Height: 5'3" SpO2: 97% Temperature: 37.1 (C ) / 98.7 (F) Weight: 204 lbs 07/22/2016 Blood Pressure 1: 158/80 Code: 8480-6 Blood Pressure 1: 160/76 Code: 8480-6 BMI: 36.8 Code: 32781-0 Heart Rate 1: 56 bpm Height: 5'3" SpO2: 98% Weight: 208 lbs 05/19/2016 Blood Pressure 1: 150/78 Code: 8480-6 Blood Pressure 1: 122/69 Code: 8480-6 BMI: 37.0 Code: 74475-5 Heart Rate 1: 61 bpm Height: 5'3" SpO2: 98% Weight: 209 lbs 02/13/2016 Blood Pressure 1: 140/76 Code: 8480-6 BMI: 36.8 Code: 32156-6 Heart Rate 1: 64 bpm Height: 5'3" SpO2: 97% Weight: 208 lbs 01/13/2016 Blood Pressure 1: 170/70 Code: 8480-6 BMI: 36.8 Code: 67701-2 Heart Rate 1: 65 bpm Height: 5'3" SpO2: 95% Weight: 208 lbs 01/02/2016 Blood Pressure 1: 150/88 Code: 8480-6 BMI: 36.8 Code: 79480-1 Heart Rate 1: 61 bpm Height: 5'3" SpO2: 98% Weight: 208 lbs 12/18/2015 Blood Pressure 1: 148/90 Code: 8480-6 BMI: 37.6 Code: 89457-4 Heart Rate 1: 64 bpm Height: 5'3" SpO2: 96% Weight: 212 lbs 09/08/2015 Blood Pressure 1: 130/88 Code: 8480-6 BMI: 37.0 Code: 69463-1 Heart Rate 1: 62 bpm Height: 5'3" SpO2: 97% Weight: 209 lbs 07/09/2015 Blood Pressure 1: 142/82 Code: 8480-6 BMI: 36.4 Code: 45117-9 Heart Rate 1: 66 bpm Height: 5'3" SpO2: 97% Weight: 205 lbs 5 oz 01/16/2015 Blood Pressure 1: 122/80 Code: 8480-6 BMI: 35.6 Code: 86436-2 Heart Rate 1: 67 bpm Height: 5'3" SpO2: 98% Weight: 201 lbs 01/03/2015 Blood Pressure 1: 122/70 Code: 8480-6 BMI: 35.6 Code: 07315-0 Heart Rate 1: 61 bpm Height: 5'3" Respiratory Rate: 16 bpm SpO2: 98% Weight: 201 lbs 09/16/2014 Blood Pressure 1: 132/78 Code: 8480-6 BMI: 34.9 Code: 30616-5 Heart Rate 1: 56 bpm Height: 5'3" Weight: 197 lbs 08/15/2014 Blood Pressure 1: 152/80 Code: 8480-6 Blood Pressure 2: 160/82 Code: 8480-6 BMI: 34.0 Code: 83745-4 Heart Rate 1: 75 bpm Height: 5'3" Weight: 192 lbs 06/12/2014 Blood Pressure 1: 136/82 Code: 8480-6 BMI: 34.9 Code: 67875-6 Heart Rate 1: 58 bpm Height: 5'3" SpO2: 96% Weight: 197 lbs 03/20/2014 Blood Pressure 1: 140/72 Code: 8480-6 BMI: 34.9 Code: 76854-6 Heart Rate 1: 60 bpm Height: 5'3" Weight: 197 lbs 12/10/2013 Blood Pressure 1: 132/78 Code: 8480-6 BMI: 35.1 Code: 63535-3 Heart Rate 1: 68 bpm Height: 5'3" Weight: 198 lbs 09/17/2013 Blood Pressure 1: 128/78 Code: 8480-6 BMI: 34.9 Code: 45288-5 Heart Rate 1: 68 bpm Height: 5'3" Weight: 197 lbs 05/21/2013 Blood Pressure 1: 128/82 Code: 8480-6 BMI: 35.6 Code: 05423-5 Heart Rate 1: 80 bpm Height: 5'3" Weight: 201 lbs 01/17/2013 Blood Pressure 1: 138/72 Code: 8480-6 BMI: 36.7 Code: 96369-7 Heart Rate 1: 60 bpm Height: 5'3" [...] 1: 140/78 Code: 8480-6 BMI: 40.0 Code: 22880-8 Heart Rate 1: 64 bpm Height: 5'3" Respiratory Rate: 16 bpm Weight: 226 lbs 11/04/2011 Blood Pressure 1: 136/76 Code: 8480-6 Heart Rate 1: 68 bpm Respiratory Rate: 16 bpm Weight: 226 lbs 07/13/2011 Blood Pressure 1: 142/80 Code: 8480-6 BMI: 40.0 Code: 24483-9 Heart Rate 1: 60 bpm Height: 5'4" [...] Encounters Encounter Performer Loca tion Codes Date ([id number]) [id number] EST. P ATIENT, LEVEL III Diagnosis: Acute recurrent maxillary sinusitis[ICD10: J01.01] [facility] CPT-4: 63846 08/14/2018 [id number] EST. PATIENT, LEVEL III Diagnosis: Pain in right shoulder[ICD10: M25.511] Diagnosis: Pain in right arm[ICD10: M79.601] [facility] CPT-4: 09716 05/22/2018 [id number]) [id number] EST. 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 PATIENT, LEVEL III Diagnosis: Other specified intestinal infections[ICD10: A08.8] Willow Manuel MD, [facility] CPT-4: 34945 08/03/2017 ([id number]) 76713 EST. 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 P ATIENT, LEVEL III Diagnosis: Essential (primary) hypertension[ICD10: I10] Юлия Manuel MD, [facility] CPT-4: 51059 12/02/2016 ([id number]) 47739 EST. P ATIENT, LEVEL III Diagnosis: Essential (primary) hypertension[ICD10: I10] Diagnosis: Allergic rhinitis due to pollen[ICD10: J30.1] Giuliana [facility] CPT-4: 06680 11/22/2016 [id number] EST. PATIENT, LEVEL III Diagnosis: Acute laryngopharyngitis[ICD10: J06.0] Diagnosis: Influenza due to unidentified influenza virus with other respiratory manifestations[ICD10: J11.1] Willow Manuel MD, [facility] CPT-4: 14501 11/05/2016 ([id number]) 77874 EST. P ATIENT, LEVEL III Diagnosis: Gastro-esophageal reflux disease without esophagitis[ICD10: K21.9] Diagnosis: Essential (primary) hypertension[ICD10: I10] Giuliana Manuel MD, C CPT-4: 06455 07/22/2016 ([id number]) 15397 EST. P ATIENT, LEVEL IV Diagnosis: Essential (primary) hypertension[ICD10: I10] Diagnosis: Abdominal distension (gaseous)[ICD10: R14.0] Giuliana Manuel MD, C CPT-4: 01913 05/19/2016 ([id number]) 45985 EST. P ATIENT, LEVEL III Diagnosis: Essential (primary) hypertension[ICD10: I10] Юлия Manuel MD, [facility] CPT-4: 69128 02/13/2016 ([id number]) 46902 EST. P ATIENT, LEVEL III Diagnosis: Essential (primary) hypertension[ICD10: I10] Юлия Manuel MD, [facility] CPT-4: 57105 01/13/2016 81184 EST. PATIENT, LEVEL IV Diagnosis: Essential (primary) hypertension[ICD10: I10] Diagnosis: Body mass index (BMI) 36.0-36.9, adult[ICD10: Z68.36] Willow Manuel MD, [facility] CPT-4: 39075 01/02/2016 ([id number]) 17286 EST. P ATIENT, LEVEL III Diagnosis: Essential (primary) hypertension[ICD10: I10] Юлия Manuel MD, [facility] CPT-4: 74786 12/18/2015 ([id number]) 20285 EST. P ATIENT, LEVEL IV Diagnosis: Essential (primary) hypertension[ICD10: I10] Diagnosis: Benign paroxysmal vertigo, bilateral[ICD10: H81.13] Diagnosis: Radiculopathy, cervical region[ICD10: M54.12] Giuliana Manuel MD, C CPT-4: 93108 09/08/2015 ([id number]) 25319 EST. P ATIENT, LEVEL IV Diagnosis: Other specified nonscarring hair loss[ICD10: L65.8] Diagnosis: Myositis, unspecified[ICD10: M60.9] Diagnosis: Psoriasis, unspecified[ICD10: L40.9] Diagnosis: Essential (primary) hypertension[ICD10: I10] Giuliana Manuel MD, C CPT-4: 44748 07/09/2015 ([id number]) 24613 EST. P ATIENT, LEVEL III Diagnosis: ESSENTIAL HYPERTENSION[ICD9: 401.9] Giuliana Manuel MD, [facility] CPT- 4: 55059 01/16/2015 ([id number]) 80926 EST. P ATIENT, LEVEL III Diagnosis: Shoulder pain[ICD9: 719.41] Diagnosis: ESSENTIAL HYPERTENSION[ICD9: 401.9] Diagnosis: PALPITATIONS[ICD9: 785.1] Giuliana Manuel MD [facility] CPT-4: 46605 01/03/2015 ([id number]) 43505 EST. P ATIENT, LEVEL III Diagnosis: Sacroiliitis[ICD9: 720.2] Diagnosis: Back pain[ICD9: 724.5] Diagnosis: ESSENTIAL HYPERTENSION[ICD9: 401.9] Giuliana Manuel MD [facility] CPT- 4: 12290 09/16/2014 ([id number]) 48200 EST. P ATIENT, LEVEL IV Diagnosis: ESSENTIAL HYPERTENSION[ICD9: 401.9] Diagnosis: Arrhythmia[ICD9: 427.9] Diagnosis: Nausea[ICD9: 787.02] Giuliana Manuel MD [facility] CPT-4: 05488 08/15/2014 ([id number]) 29198 EST. P ATIENT, LEVEL IV Diagnosis: ESSENTIAL HYPERTENSION[ICD9: 401.9] Diagnosis: Back pain[ICD9: 724.5] Diagnosis: Allergic reaction[ICD9: 995.3] Giuliana Manuel MD [facility] CPT-4: 55691 06/12/2014 ([id number]) 08640 EST. P ATIENT, LEVEL III Diagnosis: Thoracic back pain[ICD9: 724.1] Diagnosis: MYALGIA AND MYOSITIS[ICD9: 729.1] Giuliana Manuel MD [facility] CPT-4: 36549 03/20/2014 ([id number]) 22352 EST. P ATIENT, LEVEL IV Diagnosis: HYPERLIPIDEMIA[ICD9: 272.4] Diagnosis: ESSENTIAL HYPERTENSION[SNOMED: 43336376] Diagnosis: ABDOM PAIN NOS SITE[ICD9: 789.00] Giuliana Manuel MD [facility] CPT-4: 94628 12/10/2013 ([id number]) 52135 EST. P ATIENT, LEVEL IV Diagnosis: ESSENTIAL HYPERTENSION[SNOMED: 94187528] Diagnosis: HYPERLIPIDEMIA[ICD9: 272.4] Giuliana Manuel MD [facility] CPT-4: 08380 09/17/2013 ([id number]) 12428 EST. P ATIENT, LEVEL IV Diagnosis: ESSENTIAL HYPERTENSION[SNOMED: 75539766] Diagnosis: OBESITY[ICD9: 278.00] Diagnosis: Back pain[ICD9: 724.5] Giuliana Manuel MD, [facility] CPT-4: 39408 05/21/2013 ([id number]) 15703 EST. P ATIENT, LEVEL IV Diagnosis: ESSENTIAL HYPERTENSION[SNOMED: 31865417] Diagnosis: HYPERLIPIDEMIA[ICD9: 272.4] Diagnosis: Abdominal pain[ICD9: 789.00] Diagnosis: BENIGN PAROXYSMAL VERTIGO[ICD9: 386.11] Giuliana Manuel MD, [facility] CPT-4: 36112 01/17/2013 ([id number]) 96858 EST. P ATIENT, LEVEL IV Diagnosis: ESSENTIAL HYPERTENSION[SNOMED: 13601543] Diagnosis: BENIGN PAROXYSMAL VERTIGO[ICD9: 386.11] Diagnosis: Hair loss[ICD9: 704.00] Diagnosis: Vitamin d deficiency[ICD9: 268.9] Diagnosis: Bleeding from the nose[ICD9: 784.7] Giuliana Manuel MD, [facility] CPT- 4: 24229 09/20/2012 40438 EST. PATIENT, LEVEL IV Diagnosis: BPPV (benign paroxysmal positional vertigo)[ICD9: 386.11] Diagnosis: HYPERLIPIDEMIA[ICD9: 272.4] Diagnosis: ESSENTIAL HYPERTENSION[SNOMED: 95043826] Giuliana Manuel MD, [facility] CPT-4: 68024 06/08/2012 ([id number]) 28673 EST. P ATIENT, LEVEL IV Diagnosis: BPPV (benign paroxysmal positional vertigo)[ICD9: 386.11] Diagnosis: Diverticulitis[ICD9: 562.11] Diagnosis: Abdominal pain[ICD9: 789.00] Giuliana Manuel MD, [facility] CPT-4: 98794 04/10/2012 ([id number]) 20917 EST. P ATIENT, LEVEL III Diagnosis: Neck pain[ICD9: 723.1] Diagnosis: Acute upper back pain[ICD9: 724.1] Giuliana Manuel MD, [facility] CPT- 4: 82644 03/16/2012 ([id number]) 38272 EST. P ATIENT, LEVEL IV Diagnosis: HYPERLIPIDEMIA[ICD9: 272.4] Diagnosis: ESSENTIAL HYPERTENSION[SNOMED: 74021153] Diagnosis: Constipation - functional[ICD9: 564.09] Giuliana Manuel MD, [facility] CPT-4: 09085 02/03/2012 ([id number]) 20870 EST. P ATIENT, LEVEL IV Diagnosis: HYPERLIPIDEMIA[ICD9: 272.4] Diagnosis: VITAMIN DEFICIENCY[ICD9: 269.2] Diagnosis: ESSENTIAL HYPERTENSION[SNOMED: 34669841] Giuliana Manuel MD, [facility] CPT-4: 36054 11/04/2011 27340 EST. 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 05/22/2018 Appointment: Willow Garcia WPtel: [address] [place], [place] [address] (15 min) Moderate 05/22/2018 Patient Education: Patient [...] improving. 11/18/2017 Appointment: Giuliana Manuel WPtel: [phone] [facility] (15 min) Moderate 11/18/2017 Patient Education: Patient Medication Summary Completed 11/18/2017 Appointment: Giuliana Manuel WPtel: [facility]7 [facility] (15 min) Moderate 11/07/2017 Visit Plan: Diarrhea [...] not improved. 08/03/2017 Appointment: Willow Garcia WPtel: [facility]7 [facility] (30 min) Complex 08/03/2017 Patient Education: Patient [...] daily. 07/05/2017 Appointment: Giuliana Manuel WPtel: [phone] [facility] (15 min) Moderate 07/05/2017 Patient Education: Patient Medication Summary Completed 07/05/2017 Patient Education: Obesity Completed 07/05/2017 Appointment: Giuliana Manuel WPtel: [facility]5 [facility] (15 min) Moderate 06/27/2017 Appointment: Giuliana Manuel WPtel: [facility]5 [facility] (15 min) Moderate 06/21/2017 Appointment: Юлия Rojas WPtel: [facility]9 [phone] [place] (30 [...] RESTART HCTZ 12/02/2016 Appointment: Юлия Rojas WPtel: [facility]7 [phone] [place] (30 [...] 7 days 11/22/2016 [facility]ment: [phone] ([facility] min) Moderate 11/22/2016 Patient Education: Patient Medication Summary Completed 11/22/2016 Patient Education: Obesity Completed 11/22/2016 Visit Plan: Influenza - pt started on tamiflu - pt to start on anti-inflammatories, tylenol and monitor symptoms. Pt to call if not improving. Pt to alert any close contacts as to illness. 11/05/2016 App[facility]ment: [facility] ([facility] min) Complex 11/05/2016 Patient Education: [...] on carafate 07/22/2016 Appointment: Giul[facility] (15 min) Moderate 07/22/2016 Patient Education: Patient Medication Summary Completed 07/22/2016 Patient Education: Obesity Completed 07/22/2016 Care Plan: Referral Order SNOMED-CT : [id number] Pending 07/22/2016 Visit Plan: Hypertension - well [...] Completed 05/19/2016 Appointment: [facility]el[facility] (15 min) Moderate 05/17/2016 Visit Plan: Hypertension - well con trolled - continue with current medications, continue with no added salt diet. Pt has been encouraged to exercise daily. The pt has been advised to call the office if there are any acute concerns about change in blood pressure readings at home. 02/13/2016 Appointment: [facility]jas [phone] (30 min) Complex 02/13/2016 Patient Education: [...] Obesity Completed 12/18/2015 Appointment: Giuliana Manuel WPtel: [facility]5 [facility] (15 min) Moderate 12/08/2015 Referral: Jared Lafleur [address] [facility] Referral Completed 10/17/2015 Visit Plan: Hypertension - [...] test. 09/08/2015 Appointment: Giuliana Manuel WPtel: [phone] [facility] (15 min) Moderate 09/08/2015 Patient Education: Patient Medication Summary Completed 09/08/2015 Patient Education: .Cervicalgia Neck Pain Completed 09/08/2015 Care Plan: Referral Order SNOMED-CT : [id number] Ordered 09/08/2015 Visit Plan: Hypertension - uncontro [...] today. 07/09/2015 Appointment: Giuliana Manuel WPtel: [address] [place], [place] [phone] (15 min) Moderate 07/09/2015 Patient Education: Patient Medication Summary Completed 07/09/2015 Appointment: Giuliana Manuel WPtel: [address] [place], [place] [phone] (15 min) Moderate 07/07/2015 Appointment: Giuliana Manuel WPtel: [address] [place], [place] [phone] Follow up 03/17/2015 Visit Plan: Hypertension - well con trolled - continue with current medications, continue with no added salt diet. Pt has been encouraged to exercise daily. The pt has been advised to call the office if there are any acute concerns about change in blood pressure readings at home. Palpitations resolved. 01/16/2015 Appointment: Giuliana Manuel WPtel: [address] [place], [place] [phone] Other 01/16/2015 Patient Education: Patient Medication Summary [...] symptoms. 01/03/2015 Appointment: Giul[facility] Manuel [facility]Ptel[phone] Follow up 01/03/2015 Patient Education: Patient Medication [...] Completed 09/16/2014 Appointment: Giul[facility]Ptel[phone] [facility] Follow up 09/09/2014 Visit Plan: Hypertension - [...] symptoms worsen. 08/15/2014 Appointment: Giuliana Manuel WPtel: [address] [place], [place] [phone] Sick 08/15/2014 Patient Education: Patient Medication Summary Completed 08/15/2014 Patient Education: Hypertension Completed 08/15/2014 Care Plan: Referral Order SNOMED-CT : [id number] Ordered 08/15/2014 Appointment: Giuliana Manuel WPtel: [address] [place], [place] [phone] Follow up 06/18/2014 Visit Plan: Back pain - referral to [facility]. Rash - reaction to soy [...] at home. 06/12/2014 Appointment: Giuliana Manuel WPtel: [address] [place], [place] [phone] Sick 06/12/2014 Patient Education: Patient Medication Summary Completed 06/12/2014 Patient Education: Hypertension Completed 06/12/2014 Care Plan: Referral Order SNOMED-CT : [id number] Ordered 06/12/2014 Visit Plan: Hypertension - well [...] spine xrays. 03/20/2014 Appointment: Giuliana Manuel WPtel: [address] [place], [place] [phone] Follow up 03/20/2014 Patient Education: Patient Medication [...] UTI 12/10/2013 Appointment: Giul[facility]el[phone] Follow up 12/10/2013 Patient Education: Patient [...] weekly. 09/17/2013 Appointment: Giul[facility]Ptel[phone] [facility] Follow up 09/17/2013 Patient Education: Patient [...] to start with muscle rub. 05/21/2013 Appointment: Giuliaan Manuel [facility]Ptel: [phone] [facility] Follow up 05/21/2013 Patient Education: Patient [...] vertigo. 01/17/2013 Appointment: Giul[facility]Ptel[phone] [facility] Follow up 01/17/2013 Patient Education: Patient [...] if needed. 09/20/2012 Appointment: Giuliana Manuel WPtel: [address] [place], [place] [phone] Follow up 09/20/2012 Patient Education: Patient Medication [...] begin. 06/08/2012 Appointment: Giuliana Manuel WPtel: [address] [place], [place] [phone] Follow up 06/08/2012 Patient Education: Patient Medication [...] or popcorn. 04/10/2012 Appointment: Giuliana Manuel WPtel: [address] [place], [place] [phone] Other 04/10/2012 Patient Education: Patient Medication Summary [...] by Tuesday. 03/16/2012 Appointment: Giuliana Manuel WPtel: [address] [place], [place] [id number] [facility] 03/16/2012 Patient Education: Patient Medication Summary Completed [...] regimen. 02/03/2012 Appointment: Giuliana Manuel WPtel: [phone] [facility] Other 02/03/2012 Patient Education: Patient Medication [...] week. 11/04/2011 Appointment: Giul[facility] Manuel [facility]Ptel[phone] Follow [facility] 11/04/2011 Patient Education: Patient [...] shot 07/13/2011 Appointment: Giuliana Manuel [facility]Ptel: [phone] [place] Other 07/13/2011 Patient Education: Patient Medication Summary Completed 07/13/2011 Patient Education: .Gage Wilder tic meal planning guide Completed 07/13/2011 Referral: [facility] [place] Referral Appointment Requested Referral: Duarte Catalan Referral Appointment Requested Referral: Dr. Willams WPtel: [phone] [facility] [place] Referral Initiated Referral: [facility] WPtel: [address] [facility] [place] Referral Initiated Instructions Comment Add a [...] . Back pain - referr al to [facility]. Rash - reaction to soy [...]
--- OUTSIDE RECORDS SUMMARY | 2020-01-21 14:34 | XMS REPORT | CCD ---
Author Author Narinder Manuel Organization Giuliana Manuel MD, [facility] Address [address] [place] [address] Phone Care Team Providers Care Lead Net Software Developer Name Role Phone PP Unavailable CCM Unavailable Summary Purpose Interface Exchange Insurance Providers Payer name Policy type / Coverage type Covered constitution party ID Effective Begin Date Effective End Date WPS Medicare Part B Medicare Part B [id number] Unknown [employer] Medicare Part B [id number] Unknown Family history Mother Diagnosis Age At [...] M arried 07/13/[address]: 426822328 Nonsmoker 07/13/[address]: 156860780 Never drinks alcohol 07/13/2011 Allergies, Adverse Reactions, Alerts Substance Reaction Codes Entered Date Inactivated Date Status Soy Unknown 07/13/2011 No Inactive Date Active Cardizem RxNorm: 192466 05/19/2016 No Inactive Date Active Metoprolol Succinate anaphylaxis, rash, RxNorm: 6918 02/13/2016 No Inactive Date Active Past Medical History Illness Codes Condition Status Onset Date Resolved Date Pain in right arm ICD-9: 729.5 ICD-10: [...] ICD-10: A08.8 Active 08/03/2017 Unknown Encounter for immuni zation ICD-9: V04.81 ICD-10: Z23 Active 07/05/2017 Unknown Myalgia ICD-9: 729.1 ICD-10: M79.1 Active [...] pain ICD-9: 789.00 Active 07/13/2011 Unknown 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 Active 07/13/2011 Unknown OBESITY ICD-9: 278.00 Active 07/13/2011 Unknow n Postprandial bloating ICD-9: 787.3 Active 07/13/2011 Unknown Seasonal allergies ICD- 9: 477.9 Active 07/13/2011 Unknown VAC STREP PNEUMONIAE -FLU ICD-9: V06.6 Active 07/03 Unknown Problems Condition Codes Effectiv e Dates Condition Status Pain in right arm ICD-9: 729.5 ICD-10: [...] 009.0 ICD-10: A08.8 08/03/2017 Active Encounter for immuni zation ICD-9: V04.81 ICD-10: Z23 07/05/2017 Active Myalgia ICD-9: 729.1 ICD-10: M79.1 07/05/2017 [...] Abdominal pain ICD-9: 789.00 07/13/2011 Active 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 07/13/2011 Active OBESITY ICD-9: 278.00 07/13/2011 Active Postprandial bloating ICD-9: 787.3 07/13/2011 Active Seasonal allergies ICD- 9: 477.9 07/13/2011 Active VAC STREP PNEUMONIAE -FLU ICD-9: V06.6 07/13/2011 Active Medications Medication Codes Instruc tions Start Date Stop Date Sta tus Fill Instructions losartan 25 mg tablet RxNorm: 243641 1 Tablet(s) PO BID 05/02/2018 04/26/2019 Active losartan 25 mg tablet RxNorm: 438417 1 Tablet(s) PO BID 05/02/2018 05/01/2018 Inactive losartan 25 mg tablet RxNorm: 630412 1 Tablet(s) PO BID 01/30/2018 05/01/2018 Inactive Vitamin D 2,000 unit capsule RxNorm: 1 Capsule(s) PO daily 11/18/2017 No Stop Date Active clonidine HCl 0.1 mg tablet RxNorm: 760450 1/2 Tablet(s) PO BID 11/18/2017 11/12/2018 Active doxazosin 1 mg tablet RxNorm: 941862 1 Tablet(s) PO daily at midnight 11/18/2017 11/12/2018 Ac tive midnight hydrochlorothiazide 12.5 mg tablet RxNorm: 182393 1 Tablet(s) PO daily 11/18/2017 11/12/2018 Ac tive atenolol 25 mg tablet RxNorm: 104553 1 Tablet(s) PO daily 11/18/2017 11/12/2018 Active famotidine 40 mg tablet RxNorm: 417643 1 Tablet(s) PO daily TAKE 1 TABLET BY [facility] EVERY MORNING 11/18/2017 11/12/2018 Active - Ref: [id number] atenolol 25 mg tablet RxNorm: 996611 1 Tablet(s) PO BID managed by Dr Lafleur 11/18/2017 11/17/2017 In active losartan 25 mg tablet RxNorm: 607391 1 Tablet(s) PO BID 11/18/2017 01/29/2018 Inactive hydrochlorothiazide 12.5 mg tablet RxNorm: 848776 1 Tablet(s) PO daily 10/28/2017 11/17/2017 In active famotidine 40 mg tablet RxNorm: 202491 TAKE 1 TABLET BY MOUTH EVERY MORNING 10/04/2017 11/17/2017 In active - Ref: [id number] clonidine HCl 0.1 mg tablet RxNorm: 851895 1/2 Tablet(s) PO BID 07/05/2017 11/17/2017 Inactive doxazosin 1 mg tablet RxNorm: 128193 1 Tablet(s) PO daily at midnight 07/05/2017 11/17/2017 In active midnight doxazosin 1 mg tablet RxNorm: 584323 1 Tablet(s) PO BID 12/02/2016 2017 Inactive midnight prednisone 20 mg tablet RxNorm: 454589 3 Tablet(s) PO daily 11/22/2016 11/26/2016 Inactive Tessalon Perles 100 mg capsule RxNorm: 190807 1 -2 Capsule(s) PO TI D as needed cough 11/19/2016 No Stop Date Active Zithromax Z-Jeff 250 mg tablet RxNorm: 901336 1 Tablet(s) PO UD 11/19/2016 12/01/2016 Inactive z pack as directed Tamiflu 75 mg capsule RxNorm: 745195 1 Capsule(s) PO BID 11/05/2016 11/09/2016 Inactive Kenalog 40 mg/mL karl pension for injection RxNorm: 5422818 Milliliter(s) Inj 11/05/2016 11/05/2016 In active Tessalon Perles 100 mg capsule RxNorm: 785765 1 -2 Capsule(s) PO TI D as needed cough 11/04/2016 11/18/2016 Inactive famotidine 40 mg tablet RxNorm: 866167 1 Tablet(s) PO QAM 10/25/2016 10/03/2017 Inactive famotidine 40 mg tablet RxNorm: 403808 1 Tablet(s) PO QAM 08/02/2016 10/24/2016 Inactive Carafate 1 gram tablet RxNorm: 271317 1 Tablet(s) PO TID DISSOLVE THE PILL IN 10ML OF WATER 07/22/2016 10/19/2016 Inactive clonidine HCl 0.1 mg tablet RxNorm: 412884 1 Tablet(s) PO BID an d 1 tablet as needed 07/22/2016 12/01/2016 Inactive aspirin 81 mg tablet ,delayed release RxNorm: 969747 1 Tablet(s) PO QHS 05/19/2016 No Stop Date Active Cinnamon 1000 mg RxNorm: 1 PO daily 05/19/2016 No Stop Date Active losartan 25 mg tablet RxNorm: 008501 1 Tablet(s) PO BID 05/19/2016 11/17/2017 Inactive atenolol 25 mg tablet RxNorm: 864662 1.5 Tablet(s) PO BID 02/13/2016 07/21/2016 Inactive losartan 25 mg tablet RxNorm: 246565 2 Tablet(s) PO BID 01/13/2016 05/11/2016 Inactive Cardizem CD 240 mg c apsule,extended release RxNorm: 135689 1 Capsule(s) PO daily 01/13/2016 02/12/2016 In active losartan 100 mg tablet RxNorm: 692497 1/2 Tablet(s) PO BID 01/08/2016 01/12/2016 Inactive losartan 25 mg tablet RxNorm: 434341 2 Tablet(s) PO QPM 1 Tablet(s) PO QPM 12/18/2015 01/07/2016 In active atenolol 25 mg tablet RxNorm: 385097 1.5 Tablet(s) PO BID TAKE ONE TABLET BY MOUTH TWICE A DAY 12/18/2015 01/12/2016 Inactive atenolol 25 mg tablet RxNorm: 840096 Tablet(s) TAKE ONE TABLET BY MOUTH TWICE A DAY 11/14/2015 12/17/2015 Inactive losartan 25 mg tablet RxNorm: 870460 Tablet(s) 1 Tablet(s) PO QPM 11/14/2015 12/17/2015 Inactive spironolactone 25 mg tablet RxNorm: 349555 1 Tablet(s) PO daily 11/14/2015 12/14/2015 Inactive atenolol 25 mg tablet RxNorm: 186314 TAKE ONE TABLET BY MOUTH TWICE A DAY 08/07/2015 11/13/2015 In active atenolol 25 mg tablet RxNorm: 388716 1 Tablet(s) PO daily TAKE ONE TABLET BY MOUTH TWICE DAILY 08/06/2015 08/06/2015 Inactive Generic For:TENORMIN 25 MG TABLET 05/05/2015 10:00:22 AM atenolol 25 mg tablet RxNorm: 196894 1 Tablet(s) PO daily TAKE ONE TABLET BY MOUTH TWICE DAILY 08/06/2015 08/05/2015 Inactive Generic For:TENORMIN 25 MG TABLET 05/05/2015 10:00:22 AM betamethasone diprop ionate 0.05 % topical ointment RxNorm: 650939 1 TOP TID as needed rash 07/09/2015 05/18/2016 Inactive betamethasone diprop ionate 0.05 % topical ointment RxNorm: 691007 1 TOP TID as needed rash 07/09/2015 07/08/2015 Inactive spironolactone 25 mg tablet RxNorm: 722695 1 Tablet(s) PO daily 07/09/2015 07/08/2015 Inactive spironolactone 25 mg tablet RxNorm: 479566 1 Tablet(s) PO daily 07/09/2015 11/13/2015 Inactive losartan 25 mg tablet RxNorm: 996466 Tablet(s) 1 Tablet(s) PO QPM 05/27/2015 11/13/2015 Inactive atenolol 25 mg tablet RxNorm: 427353 TAKE ONE TABLET BY MOUTH TWICE DAILY 05/05/2015 08/05/2015 In active Generic For:TENORMIN 25 MG TABLET 05/05 10:00:22 AM hydrochlorothiazide 25 mg tablet RxNorm: 960707 1/2 Tablet(s) PO BID 02/17/2015 07/08/2015 Inactive Generic For:HYDRODIURIL 25 MG TABLET sulfamethoxazole 800 mg-trimethoprim 160 mg tablet RxNorm: 089270 1 Tablet(s) PO BID 01/16/2015 01/25/2015 Inactive losartan 25 mg tablet RxNorm: 606786 1 Tablet(s) PO QPM 12/09/2014 05/26/2015 Inactive Kenalog 40 mg/mL karl pension for injection RxNorm: 3831811 1 Milliliter(s) Inj 09/16/2014 09/16/2014 In active prednisone 20 mg tablet RxNorm: 179816 3 Tablet(s) PO daily 09/16/2014 09/18/2014 Inactive losartan 25 mg tablet RxNorm: 577313 1 Tablet(s) PO QPM 08/15/2014 12/08/2014 Inactive hydrochlorothiazide 25 mg tablet RxNorm: 207263 TAKE 1/2 TABLET BY MO UTH TWICE DAILY 08/13/2014 02/08/2015 Inactive Generic For:HYDRODIURIL 25 MG TABLET atenolol 25 mg tablet RxNorm: 908006 TAKE ONE TABLET BY MOUTH TWICE DAILY 05/07/2014 05/01/2015 In active Generic For:TENORMIN 25 MG TABLET ketorolac 60 mg/2 mL intramuscular solution RxNorm: 280445 2 Milliliter(s) IM 03/20/2014 03/20/2014 In active hydrochlorothiazide 25 mg tablet RxNorm: 952754 Tablet(s) PO TAKE 1/2 TABLET BY MOUTH TWICE DAILY 02/14/2014 08/12/2014 Inactive Generic For:HYDRODIURIL 25 MG TABLET Generic For:HYDRODIURIL 25 MG TABLET 02/14/2014 3:45:03 PM atorvastatin 10 mg t ablet RxNorm: 418362 1 Tablet(s) PO TIW 09/17/2013 03/19/2014 Inactive atorvastatin 10 mg t ablet RxNorm: 990312 tablet oral 09/17/2013 06/04/2015 Inactive hydrochlorothiazide 25 mg tablet RxNorm: 743635 Tablet(s) PO TAKE 1/2 TABLET BY MOUTH TWICE DAILY 08/06/2013 02/13/2014 Inactive Generic For:HYDRODIURIL 25 MG TABLET Generic For:HYDRODIURIL 25 MG TABLET 08/06/2013 1:52:35 PM amoxicillin 500 mg t ablet RxNorm: 717511 2 Tablet(s) PO 2 tabl ets PO 1 hour before dental procedure. 07/26/2013 07/25/2013 Inactive amoxicillin 500 mg t ablet RxNorm: 006113 2 Tablet(s) PO 2 tabl ets PO 1 hour before dental procedure. 07/26/2013 07/26/2013 Inactive methotrexate sodium 2.5 mg tablet RxNorm: 072669 tablet oral 07/13/2013 01/15/2015 Inactive atenolol 25 mg tablet RxNorm: 466020 Tablet(s) PO TAKE ONE TABLET BY MOUTH TW ICE DAILY 05/01/2013 05/06/2014 Inactive Generic For:TENORMIN 25 MG TABLET hydrochlorothiazide 25 mg tablet RxNorm: 377360 Tablet(s) PO TAKE 1/2 TABLET BY MOUTH TWICE DAILY 11/21/2012 08/05/2013 Inactive Generic For:HYDRODIURIL 25 MG TABLET atenolol 25 mg tablet RxNorm: 786632 Tablet(s) PO TAKE ONE TABLET BY MOUTH TW ICE DAILY 10/02/2012 04/30/2013 Inactive Generic For:TENORMIN 25 MG TABLET gemfibrozil 600 mg t ablet RxNorm: 808035 1 Tablet(s) PO BID 06/08/2012 10/08/2012 Inactive meclizine 25 mg tablet RxNorm: 841349 1 Tablet(s) PO Q4 PRN 06/08/2012 09/05/2012 Inactive prednisone 10 mg Tab RxNorm: 390286 2 Tablet(s) PO daily 03/16/2012 03/20/2012 Inactive atorvastatin 10 mg Tab RxNorm: 047360 1 Tablet(s) PO daily 12/21/2011 12/20/2011 Inactive atorvastatin 10 mg Tab RxNorm: 887774 1 Tablet(s) PO daily 12/21/2011 06/08/2012 Inactive methotrexate sodium 2.5 mg Tab RxNorm: 094153 Tablet(s) PO 11/16/2011 06/12/2012 Inactive 3 on tuesday3 on hydrochlorothiazide 25 mg Tab RxNorm: 517573 1/2 Tablet(s) PO BID 11/01/2011 11/24/2012 Inactive hydrochlorothiazide 12.5 mg Cap RxNorm: 834004 Capsule(s) PO 11/01/2011 06/08/2012 Inactive TAKE ONE TABLET BY MOUTH TWICE DAILY;Gen swanson For:MICROZIDE 12.5 MG CAPSULE hydrochlorothiazide 25 mg Tab RxNorm: 352444 1/2 Tablet(s) PO BID 11/01/2011 11/24/2012 Inactive hydrochlorothiazide 25 mg tablet RxNorm: 480922 1/2 Tablet(s) PO BID 11/01/2011 10/31/2011 Inactive hydrochlorothiazide 25 mg Tab RxNorm: 753594 1/2 Tablet(s) PO BID 11/01/2011 10/31/2011 Inactive atenolol 25 mg tablet RxNorm: 571179 Tablet(s) PO 10/04/2011 10/01/2012 Inactive TAKE ONE TABLET BY MOUTH TWICE DAILY;Generic For:TENORMIN 25 MG TABLET hydrochlorothiazide 12.5 mg Cap RxNorm: 494640 1 Capsule(s) PO BID 09/13/2011 10/31/2011 Inactive Influenza Virus Vacc ine 0.5 mL RxNorm: IM 07/13/2011 07/13/2011 Inactive Pneumovax 23 25 mcg/ 0.5 mL Injection RxNorm: 519780 Milliliter(s) Inj 07/13/2011 07/13/2011 In active Phenergan VC-Codeine 6.25 mg-5 mg-10 mg/5 mL syrup RxNorm: 087500 5 Milliliter(s) PO Q6 as needed No Start Date Active Gobles 3 Cap RxNorm: 1 Capsule(s) PO BID No Start Date Active Cinnamon 1000 mg RxNorm: 2 PO daily No Start Date Active atenolol 25 mg Tab RxNorm: 517489 1 Tablet(s) PO BID No Start Date 10/03/2011 Inactive niacin ER 500 mg Cap RxNorm: 147346 1 Capsule(s) PO daily No Start Date 06/08/2012 Inactive gemfibrozil 600 mg t ablet RxNorm: 561232 1 Tablet(s) PO BID No Start Date 06/07/2012 Inactive Vitamin C 500 mg Tab RxNorm: 536093 1 Tablet(s) PO daily No Start Date 07/21/2016 Inactive Zithromax Z-Jeff 250 mg tablet RxNorm: 099542 1 Tablet(s) PO UD No Start Date 11/18/2016 Inactive z pack as directed doxazosin 1 mg tablet RxNorm: 592593 1 Tablet(s) PO BID No Start Date 12/01/2016 Inactive vitamin E (dl, aceta te) 400 unit Cap RxNorm: 291494 1 Capsule(s) PO daily No Start Date 07/21/2016 Inactive famotidine 40 mg tablet RxNorm: 058487 1 Tablet(s) PO QAM No Start Date 08/01/2016 Inactive hydrochlorothiazide 25 mg Tab RxNorm: 388622 1/2 Tablet(s) PO BID No Start Date 09/12/2011 Inactive Tessalon Perles 100 mg capsule RxNorm: 672543 1 -2 Capsule(s) PO TI D as needed cough No Start Date 11/03/2016 Inactive aspirin 81 mg Tab, D elayed Release RxNorm: 543669 1 Tablet(s) PO every other day No Start Date 05/18/2016 Inactive Cinnamon 1000 mg RxNorm: 2 PO daily No Start Date 05/18/2016 Inactive clonidine HCl 0.1 mg tablet RxNorm: 567321 1 Tablet(s) PO QHS an d 1 Tablet as needed No Start Date 07/21/2016 Inactive niacin 500 mg tablet RxNorm: 130760 1 Tablet(s) PO QHS No Start Date 01/01/2015 Inactive multivitamin Tab RxNorm: 1 Tablet(s) PO daily No Start Date 07/21/2016 Inactive methotrexate sodium 2.5 mg Tab RxNorm: 549447 Tablet(s) PO No Start Date 11/15/2011 Inactive 3 on tuesday3 on T-Bio RxNorm: 1 PO daily No Start Date 05/18/2016 Inactive Vitamin D 2,000 unit Cap RxNorm: 1 Capsule(s) PO daily No Start Date 07/21/2016 Inactive hydrochlorothiazide 12.5 mg tablet RxNorm: 041850 1 Tablet(s) PO daily No Start Date 10/27/2017 Inactive Medication Administered Medication Codes Instruc tions Start Date Status Kenalog 40 mg/mL suspension for injection RxNorm: 7473199 Milliliter 11/05/2016 No longer Active Kenalog 40 mg/mL suspension for injection RxNorm: 5950308 1Milliliter 09/16/2014 N o longer Active ketorolac 60 mg/2 mL intramuscular solution RxNorm: 035104 2Milliliter 03/20/2014 N o longer Active Pneumovax 23 25 mcg/0.5 mL Injection RxNorm: 712302 Milliliter 07/13/2011 No longer Active Influenza Virus Vaccine 0.5 mL RxNorm: 07/13/2011 No longer Active Immunizations Vaccine Codes Date Status Influenza CVX: 141 07/05 completed Influenza CVX: 141 07/22 completed Influenza CVX: 141 09/17 completed Influenza CVX: 141 10/13 completed Influenza CVX: 141 07/13 completed Pneumococcal (Adult) CVX: 33 07/13/2011 completed Assessments Condition Codes Effectiv e Dates Pain in right arm ICD-10: M79.601 ICD-9: [...] unspecified IC D-10: E55.9 ICD-9: 268.9 07/05/2017 Encounter for immunization ICD-10: Z 23 ICD-9: V04.81 07/05/2017 Personal history of poliomyelitis IC D-10: [...] 02/03/2012 VITAMIN DEFICIENCY ICD-9: 269.2 11/04/2011 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 07/13/2011 Postprandial bloating ICD-9: 787.3 07/13/2011 Seasonal allergies ICD-9: 477.9 07/13/2011 VAC STREP PNEUMONIAE-FLU ICD-9: V06.6 07/13/2011 Reason For Visit Reason For Visit Effective Dates Notes neck and arm pain 05/22/2018 hypertension 11/18/2017 [...] Ord64 K 3.8 mEq/L 12/06/2016 Comp Metabolic Yyt301 NA 134 mEq/L 12/03/2016 Comp Metabolic Yyu636 K Specimen 3+ Hemolyzed mEq/L 12/04/19 17 Comp Metabolic Fcw427 CL 106 mEq/L 12/03/2016 Comp Metabolic Rqm310 CO2 20.0 mEq/L 12/03/2016 Comp Metabolic Poq723 AN ION GAP 16 12/03/2016 Comp Metabolic Xwx898 GL UCOSE 93 mg/dL 12/03/2016 Comp Metabolic Nfs209 Cr eat 0.8 mg/dL 12/03/2016 Comp Metabolic Rhq579 eG FR 73 ml/min/1.73m2 12/03 Comp Metabolic Cdn423 BUN 14 mg/dL 12/03/2016 Comp Metabolic Whx496 B/ C Ratio 17.1 Ratio 12/03/2016 Comp Metabolic Kgi937 CA LCIUM 9.3 mg/dL 12/03/2016 Comp Metabolic Jgf091 AL K PHOS 63 U/L 12/03/2016 Comp Metabolic Uav116 T(SGOT) 69 U/L 12/03/2016 Comp Metabolic Jei916 AL T(SGPT) 33 U/L 12/03/2016 Comp Metabolic Rbp015 BI LI T 1.0 mg/dL 12/03/2016 Comp Metabolic Nla677 AL BUMIN 4.3 g/dL 12/03/2016 Comp Metabolic Hap042 TP RO 6.7 g/dL 12/03/2016 Comp Metabolic Ych725 GL OB 2.4 g/dL 12/03/2016 Comp Metabolic Paz948 A/ G Ratio 1.7 Ratio 12/03/2016 Comp Metabolic Tlf505 Os mo 268 mOsmo 12/03/2016 Comp Metabolic Jmf309 NA 138 mEq/L 12/18/2015 Comp Metabolic Wca780 K 4.1 mEq/L 12/18/2015 Comp Metabolic Gfd005 CL 104 mEq/L 12/18/2015 Comp Metabolic Kxl935 CO2 22.0 mEq/L 12/18/2015 Comp Metabolic Ecd983 AN ION GAP 16 12/18/2015 Comp Metabolic Hoi696 GL UCOSE 89 mg/dL 12/18/2015 Comp Metabolic Auq604 Cr eat 0.6 mg/dL 12/18/2015 Comp Metabolic Nlk098 eG FR 99 ml/min/1.73m2 12/17 Comp Metabolic Klc656 BUN 15 mg/dL 12/18/2015 Comp Metabolic Lvt034 B/ C Ratio 23.8 Ratio 12/18/2015 Comp Metabolic Akh324 CA LCIUM 10.4 mg/dL 12/18/2015 Comp Metabolic Xdw131 AL K PHOS 77 U/L 12/18/2015 Comp Metabolic Kni678 T(SGOT) 19 U/L 12/18/2015 Comp Metabolic Uft659 AL T(SGPT) 17 U/L 12/18/2015 Comp Metabolic Xmp830 BI LI T 0.8 mg/dL 12/18/2015 Comp Metabolic Xch050 AL BUMIN 4.3 g/dL 12/18/2015 Comp Metabolic Uao564 TP RO 6.7 g/dL 12/18/2015 Comp Metabolic Xux516 GL OB 2.4 g/dL 12/18/2015 Comp Metabolic Beg363 A/ G Ratio 1.7 Ratio 12/18/2015 Comp Metabolic Wba069 Os mo 276 mOsmo 12/18/2015 Cbc With [...] 29.5 pg 12/18/2015 Cbc With Differential Ord2 Mcintosh% 9.4 % 12/18/2015 Cbc With Differential Ord2 [...] 2.57 K/ul 12/18/2015 Cbc With Differential Ord2 Mcintosh ABS# 0.8 K/ul 12/18/2015 Cbc With Differential Ord2 Eos ABS# 0.1 K/ul 12/18/2015 Cbc With Differential Ord2 Baso ABS# 0.0 K/ul 12/18/2015 Cbc With Differential Ord2 New Analyzer Notice Please note new ref ranges s tarting 10-15-2015 due to implemntation of new five part differential hematolgy analyzer. 12/18/2015 Total T3 Ord42 TT3 1.0 ng/ml 07/10/2015 Free T4 Nsv334 FREE T4 0.90 ng/dL 07/09/2015 Free T3 Dgj055 Free T3 2.92 pg/ml 07/09/2015 Tsh Ord6 hTSH II 1.18 uIU/mL 07/09/2015 URINALYSIS NONAUTO W/O SCOPE 34039 Specific [place] 1.005 DateTime(Free Text in Aprima) URINALYSIS NONAUTO W/O SCOPE 64382 PH 6 DateTime(Free Text in Aprima) URINALYSIS NONAUTO W/O SCOPE 39267 GLUCOSE neg DateTime(Free Dano t in Aprima) URINALYSIS NONAUTO W/O SCOPE 74699 Protein neg DateTime(Free Dano t in Aprima) URINALYSIS NONAUTO W/O SCOPE 16185 Blood neg DateTime(Free Dano t in Aprima) URINALYSIS NONAUTO W/O SCOPE 58221 Bilirubin neg DateTime(Free Dano t in Aprima) URINALYSIS NONAUTO W/O SCOPE 52269 Ketones neg DateTime(Free Dano t in Aprima) URINALYSIS NONAUTO W/O SCOPE 66181 Urobilinogen neg DateTime(Free Text in ) URINALYSIS NONAUTO W/O SCOPE 86469 Nitrite neg DateTime(Free Dano t in ) URINALYSIS NONAUTO W/O SCOPE 25394 Leukocytes neg DateTime(Free Text in ) Review of Systems System Result Effective Dates Constitutional No recent illness 05/22/2018 Constitutional No [...] VACC PRSV FREE I NC ANTIG CPT-4: 05974 07/05/2017 THER/PROPH/DIAG INJ SC/IM CPT-4: 26990 11/05/2016 TRIAMCINOLONE ACET I [place] NOS CPT-4: J3301 11/05/2016 TRIAMCINOLONE ACET I [place] NOS CPT-4: J3301 09/16/2014 DRAIN/INJECT JOINT/B URSA CPT-4: 89044 09/16/2014 KETOROLAC TROMETHAMI NE INJ CPT-4: J1885 03/20/2014 URINALYSIS NONAUTO W /O SCOPE CPT-4: 51353 12/10/2013 PRESCRIP TRANSMIT A ERX SY CPT-4: G8553 09/17/2013 PRESCRIP TRANSMIT A ERX SY CPT-4: G8553 06/08/2012 TRIAMCINOLONE ACET I [place] NOS CPT-4: J3301 03/16/2012 INJ TRIGGER POINT 1/ 2 MUSCL CPT-4: 70163 03/16/2012 PRESCRIP TRANSMIT A ERX SY CPT-4: G8553 03/16/2012 ADMIN INFLUENZA VIRU S VAC CPT-4: G0008 07/13/2011 FLULAVAL VACC, 3 YRS & >, IM CPT-4: Q2036 07/13/2011 ADMIN PNEUMOCOCCAL V ACCINE SNOMED CT: 62633021 CPT-4: G0009 07/13/2011 Pneumococcal Polysac charide Vaccine, 23-Valent, Ad CPT-4: 77334 07/13/2011 Vital Signs Date Vital 05/22/2018 Blood Pressure 1: 150/62 Code: 8480-6 BMI: 36.7 Code: 70180-9 Heart Rate 1: 74 bpm Height: 5'3" SpO2: 98% Weight: 207 lbs 11/18/2017 Blood Pressure 1: 122/66 Code: 8480-6 BMI: 35.8 Code: 84383-7 Heart Rate 1: 59 bpm Height: 5'3" SpO2: 97% Weight: 202 lbs 08/03/2017 Blood Pressure 1: 122/60 Code: 8480-6 BMI: 36.0 Code: 45493-3 Heart Rate 1: 60 bpm Height: 5'3" SpO2: 97% Weight: 203 lbs 07/05/2017 Blood Pressure 1: 140/76 Code: 8480-6 BMI: 36.0 Code: 37022-5 Heart Rate 1: 58 bpm Height: 5'3" SpO2: 98% Weight: 203 lbs 12/02/2016 Blood Pressure 1: 122/70 Code: 8480-6 BMI: 34.4 Code: 89442-1 Heart Rate 1: 66 bpm Height: 5'3" SpO2: 99% Temperature: 36.4 (C ) / 97.5 (F) Weight: 194 lbs 11/22/2016 Blood Pressure 1: 102/60 Code: 8480-6 BMI: 34.2 Code: 18169-9 Heart Rate 1: 110 bpm Height: 5'3" SpO2: 98% Temperature: 36.7 (C ) / 98.0 (F) Weight: 193 lbs 11/05/2016 Blood Pressure 1: 140/62 Code: 8480-6 BMI: 36.1 Code: 98068-9 Heart Rate 1: 102 bpm Height: 5'3" SpO2: 97% Temperature: 37.1 (C ) / 98.7 (F) Weight: 204 lbs 07/22/2016 Blood Pressure 1: 158/80 Code: 8480-6 Blood Pressure 1: 160/76 Code: 8480-6 BMI: 36.8 Code: 43818-0 Heart Rate 1: 56 bpm Height: 5'3" SpO2: 98% Weight: 208 lbs 05/19/2016 Blood Pressure 1: 150/78 Code: 8480-6 Blood Pressure 1: 122/69 Code: 8480-6 BMI: 37.0 Code: 27169-7 Heart Rate 1: 61 bpm Height: 5'3" SpO2: 98% Weight: 209 lbs 02/13/2016 Blood Pressure 1: 140/76 Code: 8480-6 BMI: 36.8 Code: 08067-0 Heart Rate 1: 64 bpm Height: 5'3" SpO2: 97% Weight: 208 lbs 01/13/2016 Blood Pressure 1: 170/70 Code: 8480-6 BMI: 36.8 Code: 28498-2 Heart Rate 1: 65 bpm Height: 5'3" SpO2: 95% Weight: 208 lbs 01/02/2016 Blood Pressure 1: 150/88 Code: 8480-6 BMI: 36.8 Code: 87615-4 Heart Rate 1: 61 bpm Height: 5'3" SpO2: 98% Weight: 208 lbs 12/18/2015 Blood Pressure 1: 148/90 Code: 8480-6 BMI: 37.6 Code: 64772-6 Heart Rate 1: 64 bpm Height: 5'3" SpO2: 96% Weight: 212 lbs 09/08/2015 Blood Pressure 1: 130/88 Code: 8480-6 BMI: 37.0 Code: 68176-6 Heart Rate 1: 62 bpm Height: 5'3" SpO2: 97% Weight: 209 lbs 07/09/2015 Blood Pressure 1: 142/82 Code: 8480-6 BMI: 36.4 Code: 65196-4 Heart Rate 1: 66 bpm Height: 5'3" SpO2: 97% Weight: 205 lbs 5 oz 01/16/2015 Blood Pressure 1: 122/80 Code: 8480-6 BMI: 35.6 Code: 81134-3 Heart Rate 1: 67 bpm Height: 5'3" SpO2: 98% Weight: 201 lbs 01/03/2015 Blood Pressure 1: 122/70 Code: 8480-6 BMI: 35.6 Code: 88268-0 Heart Rate 1: 61 bpm Height: 5'3" Respiratory Rate: 16 bpm SpO2: 98% Weight: 201 lbs 09/16/2014 Blood Pressure 1: 132/78 Code: 8480-6 BMI: 34.9 Code: 48288-7 Heart Rate 1: 56 bpm Height: 5'3" Weight: 197 lbs 08/15/2014 Blood Pressure 1: 152/80 Code: 8480-6 Blood Pressure 2: 160/82 Code: 8480-6 BMI: 34.0 Code: 11699-9 Heart Rate 1: 75 bpm Height: 5'3" Weight: 192 lbs 06/12/2014 Blood Pressure 1: 136/82 Code: 8480-6 BMI: 34.9 Code: 52086-8 Heart Rate 1: 58 bpm Height: 5'3" SpO2: 96% Weight: 197 lbs 03/20/2014 Blood Pressure 1: 140/72 Code: 8480-6 BMI: 34.9 Code: 19750-3 Heart Rate 1: 60 bpm Height: 5'3" Weight: 197 lbs 12/10/2013 Blood Pressure 1: 132/78 Code: 8480-6 BMI: 35.1 Code: 18988-3 Heart Rate 1: 68 bpm Height: 5'3" Weight: 198 lbs 09/17/2013 Blood Pressure 1: 128/78 Code: 8480-6 BMI: 34.9 Code: 41454-0 Heart Rate 1: 68 bpm Height: 5'3" Weight: 197 lbs 05/21/2013 Blood Pressure 1: 128/82 Code: 8480-6 BMI: 35.6 Code: 79043-7 Heart Rate 1: 80 bpm Height: 5'3" Weight: 201 lbs 01/17/2013 Blood Pressure 1: 138/72 Code: 8480-6 BMI: 36.7 Code: 68221-8 Heart Rate 1: 60 bpm Height: 5'3" [...] 1: 140/78 Code: 8480-6 BMI: 40.0 Code: 17377-8 Heart Rate 1: 64 bpm Height: 5'3" Respiratory Rate: 16 bpm Weight: 226 lbs 11/04/2011 Blood Pressure 1: 136/76 Code: 8480-6 Heart Rate 1: 68 bpm Respiratory Rate: 16 bpm Weight: 226 lbs 07/13/2011 Blood Pressure 1: 142/80 Code: 8480-6 BMI: 40.0 Code: 61194-7 Heart Rate 1: 60 bpm Height: 5'4" Respiratory Rate: 16 bpm Weight: 233 lbs Functional Status No Functional Status data History of Present Illness Symptom Name Status Resu lt Effective Date Notes neck and arm pain Radiating down the [...] ago 03/16/2012 None shoulder pain Quality ac [place] 03/16/2012 None shoulder pain Quality sh kate [...] Encounters Encounter Performer Loca tion Codes Date [id number] EST. PATIENT, LEVEL III Diagnosis: Pain in right shoulder[ICD10: M25.511] Diagnosis: Pain in right arm[ICD10: M79.601] Willow Manuel MD, [facility] CPT-4: 48727 05/22/2018 ([id number]) [id number] EST. 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 PATIENT, LEVEL III Diagnosis: Other specified intestinal infections[ICD10: A08.8] Willow Manuel MD, [facility] CPT-4: 49203 08/03/2017 ([id number]) 04183 EST. 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 P ATIENT, LEVEL III Diagnosis: Essential (primary) hypertension[ICD10: I10] [facility] CPT-4: 49998 12/02/2016 ([id number]) 29992 EST. P ATIENT, LEVEL III Diagnosis: Essential (primary) hypertension[ICD10: I10] Diagnosis: Allergic rhinitis due to pollen[ICD10: J30.1] Giuliana Manuel MD, [facility] CPT-4: 82947 11/22/2016 02137 EST. PATIENT, LEVEL III Diagnosis: Acute laryngopharyngitis[ICD10: J06.0] Diagnosis: Influenza due to unidentified influenza virus with other respiratory manifestations[ICD10: J11.1] Willow Manuel MD, [facility] CPT-4: 93842 11/05/2016 ([id number]) 75636 EST. P ATIENT, LEVEL III Diagnosis: Gastro-esophageal reflux disease without esophagitis[ICD10: K21.9] Diagnosis: Essential (primary) hypertension[ICD10: I10] Giuliana Manuel MD, [facility] CPT-4: 34303 07/22/2016 ([id number]) 37964 EST. P ATIENT, LEVEL IV Diagnosis: Essential (primary) hypertension[ICD10: I10] Diagnosis: Abdominal distension (gaseous)[ICD10: R14.0] Giuliana Maunel MD, [facility] CPT-4: 28909 05/19/2016 ([id number]) 01462 EST. P ATIENT, LEVEL III Diagnosis: Essential (primary) hypertension[ICD10: I10] Юлия Manuel MD, [facility] CPT-4: 44790 02/13/2016 ([id number]) 65145 EST. P ATIENT, LEVEL III Diagnosis: Essential (primary) hypertension[ICD10: I10] Юлия Manuel MD, [facility] CPT-4: 01675 01/13/2016 22944 EST. PATIENT, LEVEL IV Diagnosis: Essential (primary) hypertension[ICD10: I10] Diagnosis: Body mass index (BMI) 36.0-36.9, adult[ICD10: Z68.36] Willow Manuel MD, [facility] CPT-4: 01767 01/02/2016 ([id number]) 18960 EST. P ATIENT, LEVEL III Diagnosis: Essential (primary) hypertension[ICD10: I10] Юлия Manuel MD, [facility] CPT-4: 04889 12/18/2015 ([id number]) 11944 EST. P ATIENT, LEVEL IV Diagnosis: Essential (primary) hypertension[ICD10: I10] Diagnosis: Benign paroxysmal vertigo, bilateral[ICD10: H81.13] Diagnosis: Radiculopathy, cervical region[ICD10: M54.12] Giuliana Manuel MD, [facility] CPT-4: 23971 09/08/2015 ([id number]) 91822 EST. P ATIENT, LEVEL IV Diagnosis: Other specified nonscarring hair loss[ICD10: L65.8] Diagnosis: Myositis, unspecified[ICD10: M60.9] Diagnosis: Psoriasis, unspecified[ICD10: L40.9] Diagnosis: Essential (primary) hypertension[ICD10: I10] Giuliana Manuel MD, [facility] CPT-4: 31437 07/09/2015 ([id number]) 44374 EST. P ATIENT, LEVEL III Diagnosis: ESSENTIAL HYPERTENSION[ICD9: 401.9] Giuliana Mnauel MD, [facility] CPT- 4: 35381 01/16/2015 ([id number]) 89924 EST. P ATIENT, LEVEL III Diagnosis: Shoulder pain[ICD9: 719.41] Diagnosis: ESSENTIAL HYPERTENSION[ICD9: 401.9] Diagnosis: PALPITATIONS[ICD9: 785.1] Giuliana Manuel MD, [facility] CPT-4: 50177 01/03/2015 ([id number]) 32832 EST. P ATIENT, LEVEL III Diagnosis: Sacroiliitis[ICD9: 720.2] Diagnosis: Back pain[ICD9: 724.5] Diagnosis: ESSENTIAL HYPERTENSION[ICD9: 401.9] Giuliana Manuel MD, [facility] CPT- 4: 59016 09/16/2014 ([id number]) 78710 EST. P ATIENT, LEVEL IV Diagnosis: ESSENTIAL HYPERTENSION[ICD9: 401.9] Diagnosis: Arrhythmia[ICD9: 427.9] Diagnosis: Nausea[ICD9: 787.02] Giuliana Manuel MD, [facility] CPT-4: 43812 08/15/2014 ([id number]) 13164 EST. P ATIENT, LEVEL IV Diagnosis: ESSENTIAL HYPERTENSION[ICD9: 401.9] Diagnosis: Back pain[ICD9: 724.5] Diagnosis: Allergic reaction[ICD9: 995.3] Giuliana Manuel MD, [facility] CPT-4: 91155 06/12/2014 ([id number]) 27185 EST. P ATIENT, LEVEL III Diagnosis: Thoracic back pain[ICD9: 724.1] Diagnosis: MYALGIA AND MYOSITIS[ICD9: 729.1] Giuliana Manuel MD, [facility] CPT-4: 97906 03/20/2014 ([id number]) 40460 EST. P ATIENT, LEVEL IV Diagnosis: HYPERLIPIDEMIA[ICD9: 272.4] Diagnosis: ESSENTIAL HYPERTENSION[SNOMED: 06578383] Diagnosis: ABDOM PAIN NOS SITE[ICD9: 789.00] Giuliana Manuel MD, [facility] CPT-4: 36432 12/10/2013 ([id number]) 92908 EST. P ATIENT, LEVEL IV Diagnosis: ESSENTIAL HYPERTENSION[SNOMED: 50379188] Diagnosis: HYPERLIPIDEMIA[ICD9: 272.4] Giuliana Manuel MD, [facility] CPT-4: 25157 09/17/2013 ([id number]) 36517 EST. P ATIENT, LEVEL IV Diagnosis: ESSENTIAL HYPERTENSION[SNOMED: 48136494] Diagnosis: OBESITY[ICD9: 278.00] Diagnosis: Back pain[ICD9: 724.5] Giuliana Manuel MD, [facility] CPT-4: 55745 05/21/2013 ([id number]) 41076 EST. P ATIENT, LEVEL IV Diagnosis: ESSENTIAL HYPERTENSION[SNOMED: 26567216] Diagnosis: HYPERLIPIDEMIA[ICD9: 272.4] Diagnosis: Abdominal pain[ICD9: 789.00] Diagnosis: BENIGN PAROXYSMAL VERTIGO[ICD9: 386.11] Giuliana Manuel MD, [facility] CPT-4: 56432 01/17/2013 ([id number]) 43304 EST. P ATIENT, LEVEL IV Diagnosis: ESSENTIAL HYPERTENSION[SNOMED: 00316690] Diagnosis: BENIGN PAROXYSMAL VERTIGO[ICD9: 386.11] Diagnosis: Hair loss[ICD9: 704.00] Diagnosis: Vitamin d deficiency[ICD9: 268.9] Diagnosis: Bleeding from the nose[ICD9: 784.7] Giuliana Manuel MD, [facility] CPT- 4: 48558 09/20/2012 33049 EST. PATIENT, LEVEL IV Diagnosis: BPPV (benign paroxysmal positional vertigo)[ICD9: 386.11] Diagnosis: HYPERLIPIDEMIA[ICD9: 272.4] Diagnosis: ESSENTIAL HYPERTENSION[SNOMED: 32094854] Giuliana Manuel MD, C CPT-4: 10506 06/08/2012 ([id number]) 67276 EST. P ATIENT, LEVEL IV Diagnosis: BPPV (benign paroxysmal positional vertigo)[ICD9: 386.11] Diagnosis: Diverticulitis[ICD9: 562.11] Diagnosis: Abdominal pain[ICD9: 789.00] Giuliana Manuel MD, [facility] CPT-4: 20619 04/10/2012 ([id number]) 30910 EST. P ATIENT, LEVEL III Diagnosis: Neck pain[ICD9: 723.1] Diagnosis: Acute upper back pain[ICD9: 724.1] Giuliana Manuel MD, [facility] CPT- 4: 96009 03/16/2012 ([id number]) 50458 EST. P ATIENT, LEVEL IV Diagnosis: HYPERLIPIDEMIA[ICD9: 272.4] Diagnosis: ESSENTIAL HYPERTENSION[SNOMED: 28709726] Diagnosis: Constipation - functional[ICD9: 564.09] Giuliana Manuel MD, [facility] CPT-4: 60087 02/03/2012 ([id number]) 39232 EST. P ATIENT, LEVEL IV Diagnosis: HYPERLIPIDEMIA[ICD9: 272.4] Diagnosis: VITAMIN DEFICIENCY[ICD9: 269.2] Diagnosis: ESSENTIAL HYPERTENSION[SNOMED: 27728754] Giuliaan Manuel MD, [facility] CPT-4: 48976 11/04/2011 30275 EST. 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 The pt is to use prn antiinflammatories to manage acute pain. The patient is to call the office if the pain is worsening or does not improve. 05/22/2018 Appointment: Willow Garcia WPtel: [address] [facility] [[email or web address]] (15 min) Moderate 05/22/2018 Patient Education: Patient [...] not improving. 11/18/2017 Appointment: Giuliana Manuel WPtel: [facility]5 [facility] (15 min) Moderate 11/18/2017 Patient Education: Patient Medication Summary Completed 11/18/2017 Appointment: Giuliana Manuel WPtel: [phone] [facility] (15 min) Moderate 11/07/2017 Visit Plan: [...] improved. 08/03/2017 Appointment: Willow Garcia WPtel: [phone] [phone] (30 min) Complex 08/03/2017 Patient Education: Patient [...] daily. 07/05/2017 Appointment: Giuliana Manuel WPtel: [phone] [facility] (15 min) Moderate 07/05/2017 Patient Education: Patient Medication Summary Completed 07/05/2017 Patient Education: Obesity Completed 07/05/2017 Appointment: Giuliana Manuel WPtel: [phone] [facility] (15 min) Moderate 06/27/2017 Appointment: Giuliana Manuel WPtel: [phone] [facility] (15 min) Moderate 06/21/2017 Appointment: Юлия Rojas WPtel: [phone] [phone] [place] (30 min) Complex 12/23/2016 Visit Plan: [...] RESTART HCTZ 12/02/2016 Appointment: Юлия Rojas WPtel: [facility]5 [phone] (30 min) Complex 12/02/2016 Patient Education: Patient [...] 7 days 11/22/2016 Appointment: Giuliana Manuel WPtel: [facility]5 [facility] [[email or web address]] (15 min) Moderate 11/22/2016 Patient Education: Patient Medication Summary Completed 11/22/2016 Patient Education: Obesity Completed 11/22/2016 Visit Plan: Influenza - pt started on tamiflu - pt to start on anti-inflammatories, tylenol and monitor symptoms. Pt to call if not improving. Pt to alert any close contacts as to illness. 11/05/2016 Appointment: Willow Garcia WPtel: [facility]5 [facility] [[email or web address]] (30 min) Complex 11/05/2016 Patient Education: Patient [...] carafate 07/22/2016 Appointment: [facility] (15 min) Moderate 07/22/2016 Patient Education: Patient Medication Summary Completed 07/22/2016 Patient Education: Obesity Completed 07/22/2016 Care Plan: Referral Order SNOMED-CT : [id number] Pending 07/22/2016 Visit Plan: Hypertension - well [...] Obesity Completed 05/19/2016 Appointment: Giuliana Manuel WPtel: [facility] [place] (15 min) Moderate 05/17/2016 Visit Plan: Hypertension - well con trolled - continue with current medications, continue with no added salt diet. Pt has been encouraged to exercise daily. The pt has been advised to call the office if there are any acute concerns about change in blood pressure readings at home. 02/13/2016 Appointment: [phone] [place] (30 min) Complex 02/13/2016 Patient Education: [...] Completed 12/18/2015 Appointment: Giuliana Manuel [facility]Ptel: [phone] (15 min) Moderate 12/08/2015 Referral: Jared Lafleur [address] [facility] D [id number] Referral Completed 10/17/2015 Visit Plan: Hypertension - [...] stress test. 09/08/2015 Appointment: Giuliana Manuel WPtel: [address] [place], [place] [address] [[email or web address]] (15 min) Moderate 09/08/2015 Patient Education: Patient Medication Summary Completed 09/08/2015 Patient Education: .Cervicalgia Neck Pain Completed 09/08/2015 Care Plan: Referral Order SNOMED-CT : [id number] Ordered 09/08/2015 Visit Plan: Hypertension - uncontro [...] checked today. 07/09/2015 Appointment: Giuliana Manuel WPtel: [address] [place], [place] [phone] (15 min) Moderate 07/09/2015 Patient Education: Patient Medication Summary Completed 07/09/2015 Appointment: Giuliana Manuel WPtel: [address] [place], [place] [phone] (15 min) Moderate 07/07/2015 Appointment: Giuliana Manuel WPtel: [address] [place], [place] [phone] Follow up 03/17/2015 Visit Plan: Hypertension - well con trolled - continue with current medications, continue with no added salt diet. Pt has been encouraged to exercise daily. The pt has been advised to call the office if there are any acute concerns about change in blood pressure readings at home. Palpitations resolved. 01/16/2015 Appointment: Giuliana Manuel WPtel: [address] [place], [place] [phone] Other 01/16/2015 Patient Education: Patient Medication Summary [...] pain symptoms. 01/03/2015 Appointment: Giuliana Manuel WPtel: [address] [place], [place] [phone] Follow up 01/03/2015 Patient Education: Patient Medication [...] Hypertension Completed 09/16/2014 Appointment: Giuliana Manuel WPtel: [address] [place], [place] [phone] Follow up 09/09/2014 Visit Plan: Hypertension - [...] worsen. 08/15/2014 Appointment: Giuliana Manuel WPtel: [address] [place] [address] Sick 08/15/2014 Patient Education: Patient Medication Summary Completed 08/15/2014 Patient Education: Hypertension Completed 08/15/2014 Care Plan: Referral Order SNOMED-CT : [id number] Ordered 08/15/2014 Appointment: Giuliana Manuel WPtel: [address] [place], [place] [phone] Follow up 06/18/2014 Visit Plan: Back pain [facility]. Rash - reaction to soy [...] at home. 06/12/2014 Appointment: Giuliana Manuel WPtel: [facility]3 [facility] Sick 06/12/2014 Patient Education: Patient Medication Summary Completed 06/12/2014 Patient Education: Hypertension Completed 06/12/2014 Care Plan: Referral Order SNOMED-CT : [id number] Ordered 06/12/2014 Visit Plan: Hypertension - well [...] xrays. 03/20/2014 Appointment: Giuliana Manuel WPtel: [phone] Follow up 03/20/2014 Patient Education: Patient Medication [...] UTI 12/10/2013 Appointment: Giuliana Manuel WPtel: [phone] Follow up 12/10/2013 Patient Education: Patient Medication [...] weekly. 09/17/2013 Appointment: Giuliana Manuel WPtel: [phone] [facility] Follow up 09/17/2013 Patient Education: Patient [...] muscle rub. 05/21/2013 Appointment: Giuliana Manuel WPtel: [phone] [facility] Follow up 05/21/2013 Patient Education: Patient [...] vertigo. 01/17/2013 Appointment: Giuliana Manuel WPtel: [address] [place] [address] Follow up 01/17/2013 Patient Education: Patient Medication [...] if needed. 09/20/2012 Appointment: Giuliana Manuel WPtel: [address] [place], [place] [phone] Follow up 09/20/2012 Patient Education: Patient Medication [...] begin. 06/08/2012 Appointment: Giuliana Manuel WPtel: [phone] Follow up 06/08/2012 Patient Education: Patient Medication [...] or popcorn. 04/10/2012 Appointment: Giuliana Manuel WPtel: [facility]5 [facility] Other 04/10/2012 Patient Education: Patient Medication [...] by Tuesday. 03/16/2012 Appointment: Giuliana Manuel WPtel: [address] [place], [place] [phone] Other 03/16/2012 Patient Education: Patient Medication Summary [...] this regimen. 02/03/2012 Appointment: Giuliana Manuel WPtel: [phone] Other 02/03/2012 Patient Education: Patient Medication [...] week. 11/04/2011 Appointment: Giuliana Manuel WPtel: [phone] Follow up 11/04/2011 Patient Education: Patient Medication [...] flu shot pneumonia shot 07/13/2011 Appointment: Giuliana Mnauel WPtel: [phone] [facility] Other 07/13/2011 Patient Education: Patient Medication Summary Completed 07/13/2011 Patient Education: .Gage [employer] tic meal planning guide Completed 07/13/2011 Referral: [facility]ur [facility] Referral Appointment Requested Referral: Duarte Catalan Referral Appointment Requested Referral: Dr. Willams WPtel: [address] [place], [place] [phone] Referral Initiated Referral: [facility] WPtel: [address] [facility] [place] Referral Initiated Instructions Comment Add a [...] xrays. . Hypertension - well controlled - jm nue with current medications, continue with no [...] Back pain - referr al to [facility] physical therapy. Rash - reaction to soy [...] office if the symptoms are not improving. STOP CLONIDINE INCREASE DOXAZOSIN TO TWICE DAILY [...] Pt given exercises for the vertigo. . Influenza - pt sta rted on tamiflu - pt to start on anti- inflammatories, tylenol and monitor symptoms. Pt to call if not improving. Pt to alert any close contacts as to illness. . BPPV - Benign Paro xysmal Positional [...] medication, or symptoms of intolerance begin. . Abdominal pain - G as and [...]
--- OUTSIDE RECORDS SUMMARY | 2020-01-21 14:36 | XMS REPORT | CCD ---
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/08/2015 Marital status Unknown M arried 07/13/[address]: 445942638 Nonsmoker 07/13/[address]: 406347921 Never drinks alcohol 07/13/2011 Allergies, Adverse Reactions, Alerts Substance Reaction Codes Entered Date Inactivated Date Status Soy Unknown 07/13/2011 No Inactive Date Active Cardizem RxNorm: 035937 05/19/2016 No Inactive Date Active Metoprolol Succinate [...] pain ICD-9: 789.00 Active 07/13/2011 Unknown 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 Active 07/13/2011 Unknown OBESITY [...] Abdominal pain ICD-9: 789.00 07/13/2011 Active 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 07/13/2011 Active OBESITY ICD-9: 278.00 07/13/2011 Active Postprandial bloating ICD-9: 787.3 07/13/2011 Active Seasonal allergies ICD- 9: 477.9 07/13/2011 Active VAC STREP PNEUMONIAE -FLU ICD-9: V06.6 07/13/2011 Active Medications Medication Codes Instruc tions Start Date Stop Date Sta tus Fill Instructions losartan 25 mg tablet RxNorm: 331227 1 Tablet(s) PO BID 05/02/2018 04/26/2019 Active losartan 25 mg tablet RxNorm: 438196 1 Tablet(s) PO BID 05/02/2018 05/01/2018 Inactive losartan 25 mg tablet RxNorm: 409388 1 Tablet(s) PO BID 01/30/2018 05/01/2018 Inactive Vitamin D 2,000 unit capsule RxNorm: 1 Capsule(s) PO daily 11/18/2017 No Stop Date Active clonidine HCl 0.1 mg tablet RxNorm: 894166 1/2 Tablet(s) PO BID 11/18/2017 11/12/2018 Active doxazosin 1 mg tablet RxNorm: 107601 1 Tablet(s) PO daily at midnight 11/18/2017 11/12/2018 Ac tive midnight hydrochlorothiazide 12.5 mg tablet RxNorm: 609082 1 Tablet(s) PO daily 11/18/2017 11/12/2018 Ac tive atenolol 25 mg tablet RxNorm: 028080 1 Tablet(s) PO daily 11/18/2017 11/12/2018 Active famotidine 40 mg tablet RxNorm: 511484 1 Tablet(s) PO daily TAKE 1 TABLET BY [facility] EVERY MORNING 11/18/2017 11/12/2018 Active - Ref: [id number] atenolol 25 mg tablet RxNorm: 329583 1 Tablet(s) PO BID managed by Dr Lafleur 11/18/2017 11/17/2017 In active losartan 25 mg tablet RxNorm: 503637 1 Tablet(s) PO BID 11/18/2017 01/29/2018 Inactive hydrochlorothiazide 12.5 mg tablet RxNorm: 848216 1 Tablet(s) PO daily 10/28/2017 11/17/2017 In active famotidine 40 mg tablet RxNorm: 910044 TAKE 1 TABLET BY MOUTH EVERY MORNING 10/04/2017 11/17/2017 In active - Ref: [id number] clonidine HCl 0.1 mg tablet RxNorm: 628272 1/2 Tablet(s) PO BID 07/05/2017 11/17/2017 Inactive doxazosin 1 mg tablet RxNorm: 635382 1 Tablet(s) PO daily at midnight 07/05/2017 11/17/2017 In active midnight doxazosin 1 mg tablet RxNorm: 814994 1 Tablet(s) PO BID 12/02/2016 2017 Inactive midnight prednisone 20 mg tablet RxNorm: 975127 3 Tablet(s) PO daily 11/22/2016 11/26/2016 Inactive Tessalon Perles 100 mg capsule RxNorm: 584755 1 -2 Capsule(s) PO TI D as needed cough 11/19/2016 No Stop Date Active Zithromax Z-Jeff 250 mg tablet RxNorm: 594412 1 Tablet(s) PO UD 11/19/2016 12/01/2016 Inactive z pack as directed Tamiflu 75 mg capsule RxNorm: 596607 1 Capsule(s) PO BID 11/05/2016 11/09/2016 Inactive Kenalog 40 mg/mL karl pension for injection RxNorm: 2510659 Milliliter(s) Inj 11/05/2016 11/05/2016 In active Tessalon Perles 100 mg capsule RxNorm: 825650 1 -2 Capsule(s) PO TI D as needed cough 11/04/2016 11/18/2016 Inactive famotidine 40 mg tablet RxNorm: 792327 1 Tablet(s) PO QAM 10/25/2016 10/03/2017 Inactive famotidine 40 mg tablet RxNorm: 341017 1 Tablet(s) PO QAM 08/02/2016 10/24/2016 Inactive Carafate 1 gram tablet RxNorm: 240124 1 Tablet(s) PO TID DISSOLVE THE PILL IN 10ML OF WATER 07/22/2016 10/19/2016 Inactive clonidine HCl 0.1 mg tablet RxNorm: 191487 1 Tablet(s) PO BID an d 1 tablet as needed 07/22/2016 12/01/2016 Inactive aspirin 81 mg tablet ,delayed release RxNorm: 735058 1 Tablet(s) PO QHS 05/19/2016 No Stop Date Active Cinnamon 1000 mg RxNorm: 1 PO daily 05/19/2016 No Stop Date Active losartan 25 mg tablet RxNorm: 746618 1 Tablet(s) PO BID 05/19/2016 11/17/2017 Inactive atenolol 25 mg tablet RxNorm: 803178 1.5 Tablet(s) PO BID 02/13/2016 07/21/2016 Inactive losartan 25 mg tablet RxNorm: 046518 2 Tablet(s) PO BID 01/13/2016 05/11/2016 Inactive Cardizem CD 240 mg c apsule,extended release RxNorm: 503890 1 Capsule(s) PO daily 01/13/2016 02/12/2016 In active losartan 100 mg tablet RxNorm: 226059 1/2 Tablet(s) PO BID 01/08/2016 01/12/2016 Inactive losartan 25 mg tablet RxNorm: 165680 2 Tablet(s) PO QPM 1 Tablet(s) PO QPM 12/18/2015 01/07/2016 In active atenolol 25 mg tablet RxNorm: 337321 1.5 Tablet(s) PO BID TAKE ONE TABLET BY MOUTH TWICE A DAY 12/18/2015 01/12/2016 Inactive atenolol 25 mg tablet RxNorm: 949555 Tablet(s) TAKE ONE TABLET BY MOUTH TWICE A DAY 11/14/2015 12/17/2015 Inactive losartan 25 mg tablet RxNorm: 902227 Tablet(s) 1 Tablet(s) PO QPM 11/14/2015 12/17/2015 Inactive spironolactone 25 mg tablet RxNorm: 100297 1 Tablet(s) PO daily 11/14/2015 12/14/2015 Inactive atenolol 25 mg tablet RxNorm: 860977 TAKE ONE TABLET BY MOUTH TWICE A DAY 08/07/2015 11/13/2015 In active atenolol 25 mg tablet RxNorm: 582376 1 Tablet(s) PO daily TAKE ONE TABLET BY MOUTH TWICE DAILY 08/06/2015 08/06/2015 Inactive Generic For:TENORMIN 25 MG TABLET 05/05/2015 10:00:22 AM atenolol 25 mg tablet RxNorm: 933836 1 Tablet(s) PO daily TAKE ONE TABLET BY MOUTH TWICE DAILY 08/06/2015 08/05/2015 Inactive Generic For:TENORMIN 25 MG TABLET 05/05/2015 10:00:22 AM betamethasone diprop ionate 0.05 % topical ointment RxNorm: 959968 1 TOP TID as needed rash 07/09/2015 05/18/2016 Inactive betamethasone diprop ionate 0.05 % topical ointment RxNorm: 564908 1 TOP TID as needed rash 07/09/2015 07/08/2015 Inactive spironolactone 25 mg tablet RxNorm: 134984 1 Tablet(s) PO daily 07/09/2015 07/08/2015 Inactive spironolactone 25 mg tablet RxNorm: 027976 1 Tablet(s) PO daily 07/09/2015 11/13/2015 Inactive losartan 25 mg tablet RxNorm: 210905 Tablet(s) 1 Tablet(s) PO QPM 05/27/2015 11/13/2015 Inactive atenolol 25 mg tablet RxNorm: 148870 TAKE ONE TABLET BY MOUTH TWICE DAILY 05/05/2015 08/05/2015 In active Generic For:TENORMIN 25 MG TABLET 05/05 10:00:22 AM hydrochlorothiazide 25 mg tablet RxNorm: 401887 1/2 Tablet(s) PO BID 02/17/2015 07/08/2015 Inactive Generic For:HYDRODIURIL 25 MG TABLET sulfamethoxazole 800 mg-trimethoprim 160 mg tablet RxNorm: 966024 1 Tablet(s) PO BID 01/16/2015 01/25/2015 Inactive losartan 25 mg tablet RxNorm: 139583 1 Tablet(s) PO QPM 12/09/2014 05/26/2015 Inactive Kenalog 40 mg/mL karl pension for injection RxNorm: 8232565 1 Milliliter(s) Inj 09/16/2014 09/16/2014 In active prednisone 20 mg tablet RxNorm: 823510 3 Tablet(s) PO daily 09/16/2014 09/18/2014 Inactive losartan 25 mg tablet RxNorm: 460707 1 Tablet(s) PO QPM 08/15/2014 12/08/2014 Inactive hydrochlorothiazide 25 mg tablet RxNorm: 689115 TAKE 1/2 TABLET BY MO UTH TWICE DAILY 08/13/2014 02/08/2015 Inactive Generic For:HYDRODIURIL 25 MG TABLET atenolol 25 mg tablet RxNorm: 120003 TAKE ONE TABLET BY MOUTH TWICE DAILY 05/07/2014 05/01/2015 In active Generic For:TENORMIN 25 MG TABLET ketorolac 60 mg/2 mL intramuscular solution RxNorm: 324019 2 Milliliter(s) IM 03/20/2014 03/20/2014 In active hydrochlorothiazide 25 mg tablet RxNorm: 527792 Tablet(s) PO TAKE 1/2 TABLET BY MOUTH TWICE DAILY 02/14/2014 08/12/2014 Inactive Generic For:HYDRODIURIL 25 MG TABLET Generic For:HYDRODIURIL 25 MG TABLET 02/14/2014 3:45:03 PM atorvastatin 10 mg t ablet RxNorm: 432229 1 Tablet(s) PO TIW 09/17/2013 03/19/2014 Inactive atorvastatin 10 mg t ablet RxNorm: 349236 tablet oral 09/17/2013 06/04/2015 Inactive hydrochlorothiazide 25 mg tablet RxNorm: 275368 Tablet(s) PO TAKE 1/2 TABLET BY MOUTH TWICE DAILY 08/06/2013 02/13/2014 Inactive Generic For:HYDRODIURIL 25 MG TABLET Generic For:HYDRODIURIL 25 MG TABLET 08/06/2013 1:52:35 PM amoxicillin 500 mg t ablet RxNorm: 661007 2 Tablet(s) PO 2 tabl ets PO 1 hour before dental procedure. 07/26/2013 07/25/2013 Inactive amoxicillin 500 mg t ablet RxNorm: 106239 2 Tablet(s) PO 2 tabl ets PO 1 hour before dental procedure. 07/26/2013 07/26/2013 Inactive methotrexate sodium 2.5 mg tablet RxNorm: 605301 tablet oral 07/13/2013 01/15/2015 Inactive atenolol 25 mg tablet RxNorm: 919439 Tablet(s) PO TAKE ONE TABLET BY MOUTH TW ICE DAILY 05/01/2013 05/06/2014 Inactive Generic For:TENORMIN 25 MG TABLET hydrochlorothiazide 25 mg tablet RxNorm: 135079 Tablet(s) PO TAKE 1/2 TABLET BY MOUTH TWICE DAILY 11/21/2012 08/05/2013 Inactive Generic For:HYDRODIURIL 25 MG TABLET atenolol 25 mg tablet RxNorm: 645970 Tablet(s) PO TAKE ONE TABLET BY MOUTH TW ICE DAILY 10/02/2012 04/30/2013 Inactive Generic For:TENORMIN 25 MG TABLET gemfibrozil 600 mg t ablet RxNorm: 205487 1 Tablet(s) PO BID 06/08/2012 10/08/2012 Inactive meclizine 25 mg tablet RxNorm: 577556 1 Tablet(s) PO Q4 PRN 06/08/2012 09/05/2012 Inactive prednisone 10 mg Tab RxNorm: 633036 2 Tablet(s) PO daily 03/16/2012 03/20/2012 Inactive atorvastatin 10 mg Tab RxNorm: 074167 1 Tablet(s) PO daily 12/21/2011 12/20/2011 Inactive atorvastatin 10 mg Tab RxNorm: 618261 1 Tablet(s) PO daily 12/21/2011 06/08/2012 Inactive methotrexate sodium 2.5 mg Tab RxNorm: 531816 Tablet(s) PO 11/16/2011 06/12/2012 Inactive 3 on tuesday3 on hydrochlorothiazide 25 mg Tab RxNorm: 881307 1/2 Tablet(s) PO BID 11/01/2011 11/24/2012 Inactive hydrochlorothiazide 12.5 mg Cap RxNorm: 638839 Capsule(s) PO 11/01/2011 06/08/2012 Inactive TAKE ONE TABLET BY MOUTH TWICE DAILY;Gen swanson For:MICROZIDE 12.5 MG CAPSULE hydrochlorothiazide 25 mg Tab RxNorm: 759887 1/2 Tablet(s) PO BID 11/01/2011 11/24/2012 Inactive hydrochlorothiazide 25 mg tablet RxNorm: 569945 1/2 Tablet(s) PO BID 11/01/2011 10/31/2011 Inactive hydrochlorothiazide 25 mg Tab RxNorm: 634190 1/2 Tablet(s) PO BID 11/01/2011 10/31/2011 Inactive atenolol 25 mg tablet RxNorm: 446603 Tablet(s) PO 10/04/2011 10/01/2012 Inactive TAKE ONE TABLET BY MOUTH TWICE DAILY;Generic For:TENORMIN 25 MG TABLET hydrochlorothiazide 12.5 mg Cap RxNorm: 610035 1 Capsule(s) PO BID 09/13/2011 10/31/2011 Inactive Influenza Virus Vacc ine 0.5 mL RxNorm: IM 07/13/2011 07/13/2011 Inactive Pneumovax 23 25 mcg/ 0.5 mL Injection RxNorm: 784891 Milliliter(s) Inj 07/13/2011 07/13/2011 In active Phenergan VC-Codeine 6.25 mg-5 mg-10 mg/5 mL syrup RxNorm: 794912 5 Milliliter(s) PO Q6 as needed No Start Date Active [place] 3 Cap RxNorm: 1 Capsule(s) PO BID No Start Date Active Cinnamon 1000 mg RxNorm: 2 PO daily No Start Date Active atenolol 25 mg Tab RxNorm: 415271 1 Tablet(s) PO BID No Start Date 10/03/2011 Inactive niacin ER 500 mg Cap RxNorm: 358576 1 Capsule(s) PO daily No Start Date 06/08/2012 Inactive gemfibrozil 600 mg t ablet RxNorm: 329173 1 Tablet(s) PO BID No Start Date 06/07/2012 Inactive Vitamin C 500 mg Tab RxNorm: 758463 1 Tablet(s) PO daily No Start Date 07/21/2016 Inactive Zithromax Z-Jeff 250 mg tablet RxNorm: 277452 1 Tablet(s) PO UD No Start Date 11/18/2016 Inactive z pack as directed doxazosin 1 mg tablet RxNorm: 925899 1 Tablet(s) PO BID No Start Date 12/01/2016 Inactive vitamin E (dl, aceta te) 400 unit Cap RxNorm: 811033 1 Capsule(s) PO daily No Start Date 07/21/2016 Inactive famotidine 40 mg tablet RxNorm: 415730 1 Tablet(s) PO QAM No Start Date 08/01/2016 Inactive hydrochlorothiazide 25 mg Tab RxNorm: 361967 1/2 Tablet(s) PO BID No Start Date 09/12/2011 Inactive Tessalon Perles 100 mg capsule RxNorm: 977992 1 -2 Capsule(s) PO TI D as needed cough No Start Date 11/03/2016 Inactive aspirin 81 mg Tab, D elayed Release RxNorm: 313392 1 Tablet(s) PO every other day No Start Date 05/18/2016 Inactive Cinnamon 1000 mg RxNorm: 2 PO daily No Start Date 05/18/2016 Inactive clonidine HCl 0.1 mg tablet RxNorm: 747993 1 Tablet(s) PO QHS an d 1 Tablet as needed No Start Date 07/21/2016 Inactive niacin 500 mg tablet RxNorm: 386201 1 Tablet(s) PO QHS No Start Date 01/01/2015 Inactive multivitamin Tab RxNorm: 1 Tablet(s) PO daily No Start Date 07/21/2016 Inactive methotrexate sodium 2.5 mg Tab RxNorm: 808209 Tablet(s) PO No Start Date 11/15/2011 Inactive 3 on tuesday3 on T-Bio RxNorm: 1 PO daily No Start Date 05/18/2016 Inactive Vitamin D 2,000 unit Cap RxNorm: 1 Capsule(s) PO daily No Start Date 07/21/2016 Inactive hydrochlorothiazide 12.5 mg tablet RxNorm: 196824 1 Tablet(s) PO daily No Start Date 10/27/2017 Inactive Medication Administered Medication Codes Instruc tions Start Date Status Kenalog 40 mg/mL suspension for injection RxNorm: 0584168 Milliliter 11/05/2016 No longer Active Kenalog 40 mg/mL suspension for injection RxNorm: 3791361 1Milliliter 09/16/2014 N o longer Active ketorolac 60 mg/2 mL intramuscular solution RxNorm: 114743 2Milliliter 03/20/2014 N o longer Active Influenza Virus Vaccine 0.5 mL RxNorm: 07/13/2011 No longer Active Pneumovax 23 25 mcg/0.5 mL Injection RxNorm: 174818 Milliliter 07/13/2011 No longer Active Immunizations Vaccine [...] 02/03/2012 VITAMIN DEFICIENCY ICD-9: 269.2 11/04/2011 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 07/13/2011 Postprandial bloating ICD-9: [...] Ord64 K 3.8 mEq/L 12/06/2016 Comp Metabolic Pri212 NA 134 mEq/L 12/03/2016 Comp Metabolic Mui588 K Specimen 3+ Hemolyzed mEq/L 12/04/19 17 Comp Metabolic Jva503 CL 106 mEq/L 12/03/2016 Comp Metabolic Ykh210 CO2 20.0 mEq/L 12/03/2016 Comp Metabolic Eva624 AN ION GAP 16 12/03/2016 Comp Metabolic Clk231 GL UCOSE 93 mg/dL 12/03/2016 Comp Metabolic Uen112 Cr eat 0.8 mg/dL 12/03/2016 Comp Metabolic Zbs402 eG FR 73 ml/min/1.73m2 12/03 Comp Metabolic Aod280 BUN 14 mg/dL 12/03/2016 Comp Metabolic Kfm970 B/ C Ratio 17.1 Ratio 12/03/2016 Comp Metabolic Exo046 CA LCIUM 9.3 mg/dL 12/03/2016 Comp Metabolic Www945 AL K PHOS 63 U/L 12/03/2016 Comp Metabolic Lqh350 T(SGOT) 69 U/L 12/03/2016 Comp Metabolic Xde323 AL T(SGPT) 33 U/L 12/03/2016 Comp Metabolic Hlk176 BI LI T 1.0 mg/dL 12/03/2016 Comp Metabolic Hie225 AL BUMIN 4.3 g/dL 12/03/2016 Comp Metabolic Jdo353 TP RO 6.7 g/dL 12/03/2016 Comp Metabolic Wwi313 GL OB 2.4 g/dL 12/03/2016 Comp Metabolic Img654 A/ G Ratio 1.7 Ratio 12/03/2016 Comp Metabolic Zva270 Os mo 268 mOsmo 12/03/2016 Comp Metabolic Jej067 NA 138 mEq/L 12/18/2015 Comp Metabolic Anh788 K 4.1 mEq/L 12/18/2015 Comp Metabolic Sdu233 CL 104 mEq/L 12/18/2015 Comp Metabolic Pjc582 CO2 22.0 mEq/L 12/18/2015 Comp Metabolic Sgr383 AN ION GAP 16 12/18/2015 Comp Metabolic Jvo814 GL UCOSE 89 mg/dL 12/18/2015 Comp Metabolic Bjr687 Cr eat 0.6 mg/dL 12/18/2015 Comp Metabolic Woa091 eG FR 99 ml/min/1.73m2 12/17 Comp Metabolic Rjc426 BUN 15 mg/dL 12/18/2015 Comp Metabolic Pta288 B/ C Ratio 23.8 Ratio 12/18/2015 Comp Metabolic Czv667 CA LCIUM 10.4 mg/dL 12/18/2015 Comp Metabolic Pdz810 AL K PHOS 77 U/L 12/18/2015 Comp Metabolic Eft900 T(SGOT) 19 U/L 12/18/2015 Comp Metabolic Kat597 AL T(SGPT) 17 U/L 12/18/2015 Comp Metabolic Rqe160 BI LI T 0.8 mg/dL 12/18/2015 Comp Metabolic Nln713 AL BUMIN 4.3 g/dL 12/18/2015 Comp Metabolic Sis143 TP RO 6.7 g/dL 12/18/2015 Comp Metabolic Mpv995 GL OB 2.4 g/dL 12/18/2015 Comp Metabolic Bhc082 A/ G Ratio 1.7 Ratio 12/18/2015 Comp Metabolic Vhk411 Os mo 276 mOsmo 12/18/2015 Cbc With [...] 29.5 pg 12/18/2015 Cbc With Differential Ord2 [place]% 9.4 % 12/18/2015 Cbc With Differential Ord2 [...] 2.57 K/ul 12/18/2015 Cbc With Differential Ord2 [place] ABS# 0.8 K/ul 12/18/2015 Cbc With Differential Ord2 E[place] ABS# 0.1 K/ul 12/18/2015 Cbc With Differential Ord2 Baso ABS# 0.0 K/ul 12/18/2015 Cbc With Differential Ord2 New Analyzer Notice Please note new ref ranges s tarting 10-15-2015 due to implemntation of new five part differential hematolgy analyzer. 12/18/2015 Total T3 Ord42 TT3 1.0 ng/ml 07/10/2015 Free T4 Msj249 FREE T4 0.90 ng/dL 07/09/2015 Free T3 Txj662 Free T3 2.92 pg/ml 07/09/2015 Tsh Ord6 hTSH II 1.18 uIU/mL 07/09/2015 URINALYSIS NONAUTO W/O SCOPE 24823 Specific [place] 1.005 DateTime(Free Text in Aprima) URINALYSIS NONAUTO W/O SCOPE 31755 PH 6 DateTime(Free Text in Aprima) URINALYSIS NONAUTO W/O SCOPE 86085 GLUCOSE neg DateTime(Free Dano t in Aprima) URINALYSIS NONAUTO W/O SCOPE 11394 Protein neg DateTime(Free Dano t in Aprima) URINALYSIS NONAUTO W/O SCOPE 07420 Blood neg DateTime(Free Dano t in Aprima) URINALYSIS NONAUTO W/O SCOPE 90144 Bilirubin neg DateTime(Free Dano t in Aprima) URINALYSIS NONAUTO W/O SCOPE 96366 Ketones neg DateTime(Free Dano t in Aprima) URINALYSIS NONAUTO W/O SCOPE 14412 Urobilinogen neg DateTime(Free Text in ) URINALYSIS NONAUTO W/O SCOPE 64385 Nitrite neg DateTime(Free Dano t in ) URINALYSIS NONAUTO W/O SCOPE 80339 Leukocytes neg DateTime(Free Text in ) Review [...] VACC PRSV FREE I NC ANTIG CPT-4: 25806 07/05/2017 THER/PROPH/DIAG INJ SC/IM CPT-4: 80816 11/05/2016 TRIAMCINOLONE ACET I [place] NOS CPT-4: J3301 11/05/2016 TRIAMCINOLONE ACET I [place] NOS CPT-4: J3301 09/16/2014 DRAIN/INJECT JOINT/B URSA CPT-4: 21631 09/16/2014 KETOROLAC TROMETHAMI NE INJ CPT-4: J1885 03/20/2014 URINALYSIS NONAUTO W /O SCOPE CPT-4: 04741 12/10/2013 PRESCRIP TRANSMIT A ERX SY CPT-4: G8553 09/17/2013 PRESCRIP TRANSMIT A ERX SY CPT-4: G8553 06/08/2012 TRIAMCINOLONE ACET I [place] NOS CPT-4: J3301 03/16/2012 INJ TRIGGER POINT 1/ 2 MUSCL CPT-4: 24095 03/16/2012 PRESCRIP TRANSMIT A ERX SY CPT-4: G8553 03/16/2012 ADMIN INFLUENZA VIRU S VAC CPT-4: G0008 07/13/2011 FLULAVAL VACC, 3 YRS & >, IM CPT-4: Q2036 07/13/2011 ADMIN PNEUMOCOCCAL V ACCINE SNOMED CT: 90469669 CPT-4: G0009 07/13/2011 Pneumococcal Polysac charide Vaccine, 23-Valent, Ad CPT-4: 25736 07/13/2011 Vital Signs Date Vital 05/22/2018 Blood Pressure 1: 150/62 Code: 8480-6 BMI: 36.7 Code: 67097-2 Heart Rate 1: 74 bpm Height: 5'3" SpO2: 98% Weight: 207 lbs 11/18/2017 Blood Pressure 1: 122/66 Code: 8480-6 BMI: 35.8 Code: 12193-3 Heart Rate 1: 59 bpm Height: 5'3" SpO2: 97% Weight: 202 lbs 08/03/2017 Blood Pressure 1: 122/60 Code: 8480-6 BMI: 36.0 Code: 99948-3 Heart Rate 1: 60 bpm Height: 5'3" SpO2: 97% Weight: 203 lbs 07/05/2017 Blood Pressure 1: 140/76 Code: 8480-6 BMI: 36.0 Code: 33007-8 Heart Rate 1: 58 bpm Height: 5'3" SpO2: 98% Weight: 203 lbs 12/02/2016 Blood Pressure 1: 122/70 Code: 8480-6 BMI: 34.4 Code: 99451-7 Heart Rate 1: 66 bpm Height: 5'3" SpO2: 99% Temperature: 36.4 (C ) / 97.5 (F) Weight: 194 lbs 11/22/2016 Blood Pressure 1: 102/60 Code: 8480-6 BMI: 34.2 Code: 16934-7 Heart Rate 1: 110 bpm Height: 5'3" SpO2: 98% Temperature: 36.7 (C ) / 98.0 (F) Weight: 193 lbs 11/05/2016 Blood Pressure 1: 140/62 Code: 8480-6 BMI: 36.1 Code: 34104-4 Heart Rate 1: 102 bpm Height: 5'3" SpO2: 97% Temperature: 37.1 (C ) / 98.7 (F) Weight: 204 lbs 07/22/2016 Blood Pressure 1: 158/80 Code: 8480-6 Blood Pressure 1: 160/76 Code: 8480-6 BMI: 36.8 Code: 46957-5 Heart Rate 1: 56 bpm Height: 5'3" SpO2: 98% Weight: 208 lbs 05/19/2016 Blood Pressure 1: 150/78 Code: 8480-6 Blood Pressure 1: 122/69 Code: 8480-6 BMI: 37.0 Code: 97650-9 Heart Rate 1: 61 bpm Height: 5'3" SpO2: 98% Weight: 209 lbs 02/13/2016 Blood Pressure 1: 140/76 Code: 8480-6 BMI: 36.8 Code: 11969-3 Heart Rate 1: 64 bpm Height: 5'3" SpO2: 97% Weight: 208 lbs 01/13/2016 Blood Pressure 1: 170/70 Code: 8480-6 BMI: 36.8 Code: 57418-3 Heart Rate 1: 65 bpm Height: 5'3" SpO2: 95% Weight: 208 lbs 01/02/2016 Blood Pressure 1: 150/88 Code: 8480-6 BMI: 36.8 Code: 39227-8 Heart Rate 1: 61 bpm Height: 5'3" SpO2: 98% Weight: 208 lbs 12/18/2015 Blood Pressure 1: 148/90 Code: 8480-6 BMI: 37.6 Code: 01261-3 Heart Rate 1: 64 bpm Height: 5'3" SpO2: 96% Weight: 212 lbs 09/08/2015 Blood Pressure 1: 130/88 Code: 8480-6 BMI: 37.0 Code: 57569-9 Heart Rate 1: 62 bpm Height: 5'3" SpO2: 97% Weight: 209 lbs 07/09/2015 Blood Pressure 1: 142/82 Code: 8480-6 BMI: 36.4 Code: 97031-4 Heart Rate 1: 66 bpm Height: 5'3" SpO2: 97% Weight: 205 lbs 5 oz 01/16/2015 Blood Pressure 1: 122/80 Code: 8480-6 BMI: 35.6 Code: 48969-0 Heart Rate 1: 67 bpm Height: 5'3" SpO2: 98% Weight: 201 lbs 01/03/2015 Blood Pressure 1: 122/70 Code: 8480-6 BMI: 35.6 Code: 90948-6 Heart Rate 1: 61 bpm Height: 5'3" Respiratory Rate: 16 bpm SpO2: 98% Weight: 201 lbs 09/16/2014 Blood Pressure 1: 132/78 Code: 8480-6 BMI: 34.9 Code: 78409-3 Heart Rate 1: 56 bpm Height: 5'3" Weight: 197 lbs 08/15/2014 Blood Pressure 1: 152/80 Code: 8480-6 Blood Pressure 2: 160/82 Code: 8480-6 BMI: 34.0 Code: 02678-3 Heart Rate 1: 75 bpm Height: 5'3" Weight: 192 lbs 06/12/2014 Blood Pressure 1: 136/82 Code: 8480-6 BMI: 34.9 Code: 93651-4 Heart Rate 1: 58 bpm Height: 5'3" SpO2: 96% Weight: 197 lbs 03/20/2014 Blood Pressure 1: 140/72 Code: 8480-6 BMI: 34.9 Code: 77335-0 Heart Rate 1: 60 bpm Height: 5'3" Weight: 197 lbs 12/10/2013 Blood Pressure 1: 132/78 Code: 8480-6 BMI: 35.1 Code: 19939-3 Heart Rate 1: 68 bpm Height: 5'3" Weight: 198 lbs 09/17/2013 Blood Pressure 1: 128/78 Code: 8480-6 BMI: 34.9 Code: 76315-0 Heart Rate 1: 68 bpm Height: 5'3" Weight: 197 lbs 05/21/2013 Blood Pressure 1: 128/82 Code: 8480-6 BMI: 35.6 Code: 73362-0 Heart Rate 1: 80 bpm Height: 5'3" Weight: 201 lbs 01/17/2013 Blood Pressure 1: 138/72 Code: 8480-6 BMI: 36.7 Code: 29471-3 Heart Rate 1: 60 bpm Height: 5'3" [...] 1: 140/78 Code: 8480-6 BMI: 40.0 Code: 74897-8 Heart Rate 1: 64 bpm Height: 5'3" Respiratory Rate: 16 bpm Weight: 226 lbs 11/04/2011 Blood Pressure 1: 136/76 Code: 8480-6 Heart Rate 1: 68 bpm Respiratory Rate: 16 bpm Weight: 226 lbs 07/13/2011 Blood Pressure 1: 142/80 Code: 8480-6 BMI: 40.0 Code: 50741-7 Heart Rate 1: 60 bpm Height: 5'4" [...] ago 03/16/2012 None shoulder pain Quality ac hoopa 03/16/2012 None shoulder pain Quality sh kate [...] Encounters Encounter Performer Loca tion Codes Date 12037 EST. PATIENT, LEVEL III Diagnosis: Pain in right shoulder[ICD10: M25.511] Diagnosis: Pain in right arm[ICD10: M79.601] Willow Manuel MD, [facility] CPT-4: 43944 05/22/2018 ([id number]) 18423 EST. 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 PATIENT, LEVEL III Diagnosis: Other specified intestinal infections[ICD10: A08.8] Willow Manuel MD, [facility] CPT-4: 58695 08/03/2017 ([id number]) 18591 EST. 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 P ATIENT, LEVEL III Diagnosis: Essential (primary) hypertension[ICD10: I10] [facility] CPT-4: 79891 12/02/2016 ([id number]) 43637 EST. P ATIENT, LEVEL III Diagnosis: Essential (primary) hypertension[ICD10: I10] Diagnosis: Allergic rhinitis due to pollen[ICD10: J30.1] Giuliana Manuel MD, [facility] CPT-4: 06517 11/22/2016 [id number] EST. PATIENT, LEVEL III Diagnosis: Acute laryngopharyngitis[ICD10: J06.0] Diagnosis: Influenza due to unidentified influenza virus with other respiratory manifestations[ICD10: J11.1] Willow Manuel MD, [facility] CPT-4: 07285 11/05/2016 ([id number]) 52730 EST. P ATIENT, LEVEL III Diagnosis: Gastro-esophageal reflux disease without esophagitis[ICD10: K21.9] Diagnosis: Essential (primary) hypertension[ICD10: I10] Giuliana Manuel MD, [facility] CPT-4: 75208 07/22/2016 ([id number]) 74389 EST. P ATIENT, LEVEL IV Diagnosis: Essential (primary) hypertension[ICD10: I10] Diagnosis: Abdominal distension (gaseous)[ICD10: R14.0] Giuliana Manuel MD, [facility] CPT-4: 56784 05/19/2016 ([id number]) 39569 EST. P ATIENT, LEVEL III Diagnosis: Essential (primary) hypertension[ICD10: I10] Юлия Manuel MD, [facility] CPT-4: 03745 02/13/2016 ([id number]) 82180 EST. P ATIENT, LEVEL III Diagnosis: Essential (primary) hypertension[ICD10: I10] Юлия Manuel MD, [facility] CPT-4: 77407 01/13/2016 89110 EST. PATIENT, LEVEL IV Diagnosis: Essential (primary) hypertension[ICD10: I10] Diagnosis: Body mass index (BMI) 36.0-36.9, adult[ICD10: Z68.36] Willow Manuel MD, [facility] CPT-4: 45955 01/02/2016 ([id number]) 00276 EST. P ATIENT, LEVEL III Diagnosis: Essential (primary) hypertension[ICD10: I10] Юлия Manuel MD, [facility] CPT-4: 96974 12/18/2015 ([id number]) 97960 EST. P ATIENT, LEVEL IV Diagnosis: Essential (primary) hypertension[ICD10: I10] Diagnosis: Benign paroxysmal vertigo, bilateral[ICD10: H81.13] Diagnosis: Radiculopathy, cervical region[ICD10: M54.12] Giuliana Manuel MD, C CPT-4: 19496 09/08/2015 ([id number]) 20314 EST. P ATIENT, LEVEL IV Diagnosis: Other specified nonscarring hair loss[ICD10: L65.8] Diagnosis: Myositis, unspecified[ICD10: M60.9] Diagnosis: Psoriasis, unspecified[ICD10: L40.9] Diagnosis: Essential (primary) hypertension[ICD10: I10] Giuliana Manuel MD, C CPT-4: 72803 07/09/2015 ([id number]) 47590 EST. P ATIENT, LEVEL III Diagnosis: ESSENTIAL HYPERTENSION[ICD9: 401.9] Giuliana Manuel MD, [facility] CPT- 4: 22931 01/16/2015 ([id number]) 97777 EST. P ATIENT, LEVEL III Diagnosis: Shoulder pain[ICD9: 719.41] Diagnosis: ESSENTIAL HYPERTENSION[ICD9: 401.9] Diagnosis: PALPITATIONS[ICD9: 785.1] Giuliana Manuel MD, [facility] CPT-4: 43166 01/03/2015 ([id number]) 13147 EST. P ATIENT, LEVEL III Diagnosis: Sacroiliitis[ICD9: 720.2] Diagnosis: Back pain[ICD9: 724.5] Diagnosis: ESSENTIAL HYPERTENSION[ICD9: 401.9] Giuliana Manuel MD, [facility] CPT- 4: 26322 09/16/2014 ([id number]) 15097 EST. P ATIENT, LEVEL IV Diagnosis: ESSENTIAL HYPERTENSION[ICD9: 401.9] Diagnosis: Arrhythmia[ICD9: 427.9] Diagnosis: Nausea[ICD9: 787.02] Giuliana Manuel MD, [facility] CPT-4: 12091 08/15/2014 ([id number]) 14738 EST. P ATIENT, LEVEL IV Diagnosis: ESSENTIAL HYPERTENSION[ICD9: 401.9] Diagnosis: Back pain[ICD9: 724.5] Diagnosis: Allergic reaction[ICD9: 995.3] Giuliana Manuel MD, [facility] CPT-4: 35825 06/12/2014 ([id number]) 44955 EST. P ATIENT, LEVEL III Diagnosis: Thoracic back pain[ICD9: 724.1] Diagnosis: MYALGIA AND MYOSITIS[ICD9: 729.1] Giuliana Manuel MD, [facility] CPT-4: 41264 03/20/2014 ([id number]) 35281 EST. P ATIENT, LEVEL IV Diagnosis: HYPERLIPIDEMIA[ICD9: 272.4] Diagnosis: ESSENTIAL HYPERTENSION[SNOMED: 55298735] Diagnosis: ABDOM PAIN NOS SITE[ICD9: 789.00] Giuliana Manuel MD, [facility] CPT-4: 40450 12/10/2013 ([id number]) 57005 EST. P ATIENT, LEVEL IV Diagnosis: ESSENTIAL HYPERTENSION[SNOMED: 98621012] Diagnosis: HYPERLIPIDEMIA[ICD9: 272.4] Giuliana Manuel MD, [facility] CPT-4: 43899 09/17/2013 ([id number]) 81322 EST. P ATIENT, LEVEL IV Diagnosis: ESSENTIAL HYPERTENSION[SNOMED: 74334695] Diagnosis: OBESITY[ICD9: 278.00] Diagnosis: Back pain[ICD9: 724.5] Giuliana Manuel MD, [facility] CPT-4: 49247 05/21/2013 ([id number]) 47684 EST. P ATIENT, LEVEL IV Diagnosis: ESSENTIAL HYPERTENSION[SNOMED: 27370505] Diagnosis: HYPERLIPIDEMIA[ICD9: 272.4] Diagnosis: Abdominal pain[ICD9: 789.00] Diagnosis: BENIGN PAROXYSMAL VERTIGO[ICD9: 386.11] Giuliana Manuel MD, [facility] CPT-4: 04132 01/17/2013 ([id number]) 58167 EST. P ATIENT, LEVEL IV Diagnosis: ESSENTIAL HYPERTENSION[SNOMED: 57766767] Diagnosis: BENIGN PAROXYSMAL VERTIGO[ICD9: 386.11] Diagnosis: Hair loss[ICD9: 704.00] Diagnosis: Vitamin d deficiency[ICD9: 268.9] Diagnosis: Bleeding from the nose[ICD9: 784.7] Giuliana Manuel MD, [facility] CPT- 4: 13580 09/20/2012 54440 EST. PATIENT, LEVEL IV Diagnosis: BPPV (benign paroxysmal positional vertigo)[ICD9: 386.11] Diagnosis: HYPERLIPIDEMIA[ICD9: 272.4] Diagnosis: ESSENTIAL HYPERTENSION[SNOMED: 04221862] Giuliana Manuel MD, C CPT-4: 18685 06/08/2012 ([id number]) 54551 EST. P ATIENT, LEVEL IV Diagnosis: BPPV (benign paroxysmal positional vertigo)[ICD9: 386.11] Diagnosis: Diverticulitis[ICD9: 562.11] Diagnosis: Abdominal pain[ICD9: 789.00] Giuliana Manuel MD, [facility] CPT-4: 96465 04/10/2012 ([id number]) 99395 EST. P ATIENT, LEVEL III Diagnosis: Neck pain[ICD9: 723.1] Diagnosis: Acute upper back pain[ICD9: 724.1] Giuliana Manuel MD, [facility] CPT- 4: 81168 03/16/2012 ([id number]) 85560 EST. P ATIENT, LEVEL IV Diagnosis: HYPERLIPIDEMIA[ICD9: 272.4] Diagnosis: ESSENTIAL HYPERTENSION[SNOMED: 69792823] Diagnosis: Constipation - functional[ICD9: 564.09] Giuliana Manuel MD, [facility] CPT-4: 30436 02/03/2012 ([id number]) 94226 EST. P ATIENT, LEVEL IV Diagnosis: HYPERLIPIDEMIA[ICD9: 272.4] Diagnosis: VITAMIN DEFICIENCY[ICD9: 269.2] Diagnosis: ESSENTIAL HYPERTENSION[SNOMED: 96038948] Giuliana Manuel MD, C CPT-4: 01940 11/04/2011 20325 EST. 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 The pt is to use prn antiinflammatories to manage acute pain. The patient is to call the office if the pain is worsening or does not improve. 05/22/2018 Appointment: Willow Garcia WPtel: [address] [facility] [address] (15 min) Moderate 05/22/2018 Patient Education: Patient [...] not improving. 11/18/2017 Appointment: Giuliana Manuel WPtel: [facility] (15 min) Moderate 11/18/2017 Patient Education: Patient Medication Summary Completed 11/18/2017 Appointment: Giuliana Manuel WPtel: [phone] [facility] (15 min) Moderate 11/07/2017 Visit Plan: [...] improved. 08/03/2017 Appointment: Willow Garcia WPtel: [address] [facility] [address] (30 min) Complex 08/03/2017 Patient Education: Patient [...] daily. 07/05/2017 Appointment: Giuliana Manuel WPtel: [phone] [facility] (15 min) Moderate 07/05/2017 Patient Education: Patient Medication Summary Completed 07/05/2017 Patient Education: Obesity Completed 07/05/2017 Appointment: Giuliana Manuel WPtel: [phone] [facility] (15 min) Moderate 06/27/2017 Appointment: Giuliana Manuel WPtel: [address] [facility] (15 min) Moderate 06/21/2017 Appointment: Юлия Rojas WPtel: [address] [facility] [phone] [place] (30 min) Complex 12/23/2016 Visit Plan: [...] RESTART HCTZ 12/02/2016 Appointment: Юлия Rojas WPtel: [facility]5 [facility] [phone] (30 min) Complex 12/02/2016 Patient Education: Patient [...] 7 days 11/22/2016 Appointment: Giuliana Manuel WPtel: [facility]5 [facility] (15 min) Moderate 11/22/2016 Patient Education: Patient Medication Summary Completed 11/22/2016 Patient Education: Obesity Completed 11/22/2016 Visit Plan: Influenza - pt started on tamiflu - pt to start on anti-inflammatories, tylenol and monitor symptoms. Pt to call if not improving. Pt to alert any close contacts as to illness. 11/05/2016 Appointment: Willow Garcia WPtel: [facility]5 [facility] [address] (30 min) Complex 11/05/2016 Patient Education: Patient [...] on carafate 07/22/2016 [facility]ment: [facility] (15 min) Moderate 07/22/2016 Patient Education: Patient Medication Summary Completed 07/22/2016 Patient Education: Obesity Completed 07/22/2016 Care Plan: Referral Order SNOMED-CT : [id number] Pending 07/22/2016 Visit Plan: Hypertension - well [...] Obesity Completed 05/19/2016 Appointment: Giuliana Manuel WPtel: [facility] [place] (15 min) Moderate 05/17/2016 Visit Plan: Hypertension - well con trolled - continue with current medications, continue with no added salt diet. Pt has been encouraged to exercise daily. The pt has been advised to call the office if there are any acute concerns about change in blood pressure readings at home. 02/13/2016 Appointment: [phone] [place] (30 min) Complex 02/13/2016 Patient [...] Completed 12/18/2015 Appointment: Giuliana Manuel [facility]Ptel[phone] (15 min) Moderate 12/08/2015 Referral: Jared Lafleur [address] [facility] [id number] Referral Completed 10/17/2015 Visit Plan: Hypertension - [...] stress test. 09/08/2015 Appointment: Giuliana Manuel WPtel: [address] [place], [place] [address] (15 min) Moderate 09/08/2015 Patient Education: Patient Medication Summary Completed 09/08/2015 Patient Education: .Cervicalgia Neck Pain Completed 09/08/2015 Care Plan: Referral Order SNOMED-CT : [id number] Ordered 09/08/2015 Visit Plan: Hypertension - uncontro [...] checked today. 07/09/2015 Appointment: Giuliana Manuel WPtel: [address] [place], [place] [phone] (15 min) Moderate 07/09/2015 Patient Education: Patient Medication Summary Completed 07/09/2015 Appointment: Giuliana Manuel WPtel: [address] [place], [place] [phone] (15 min) Moderate 07/07/2015 Appointment: Giuliana Manuel WPtel: [address] [place], [place] [phone] Follow up 03/17/2015 Visit Plan: Hypertension - well con trolled - continue with current medications, continue with no added salt diet. Pt has been encouraged to exercise daily. The pt has been advised to call the office if there are any acute concerns about change in blood pressure readings at home. Palpitations resolved. 01/16/2015 Appointment: Giuliana Manuel WPtel: [address] [place], [place] [phone] Other 01/16/2015 Patient Education: Patient Medication Summary [...] pain symptoms. 01/03/2015 Appointment: Giuliana Manuel WPtel: [address] [place], [place] [phone] Follow up 01/03/2015 Patient Education: Patient Medication [...] Hypertension Completed 09/16/2014 Appointment: Giuliana Manuel WPtel: [address] [place], [place] [phone] Follow up 09/09/2014 Visit Plan: Hypertension - [...] symptoms worsen. 08/15/2014 Appointment: Giuliana Manuel WPtel: [address] [place] [address] Sick 08/15/2014 Patient Education: Patient Medication Summary Completed 08/15/2014 Patient Education: Hypertension Completed 08/15/2014 Care Plan: Referral Order SNOMED-CT : [id number] Ordered 08/15/2014 Appointment: Giuliana Manuel WPtel: [address] [place], [place] [phone] Follow up 06/18/2014 Visit Plan: Back pain [...] at home. 06/12/2014 Appointment: Giuliana Manuel WPtel: [facility]8 [facility] Sick 06/12/2014 Patient Education: Patient Medication Summary Completed 06/12/2014 Patient Education: Hypertension Completed 06/12/2014 Care Plan: Referral Order SNOMED-CT : [id number] Ordered 06/12/2014 Visit Plan: Hypertension - well [...] xrays. 03/20/2014 Appointment: Giul[facility] Manuel [facility]Ptel: [phone] Follow up 03/20/2014 Patient Education: Patient [...] UTI 12/10/2013 Appointment: Giul[facility] Manuel [facility]Ptel: [phone] Follow up 12/10/2013 Patient Education: Patient [...] times weekly. 09/17/2013 Appointment: Giuliana Manuel WPtel: [phone] [facility] Follow up 09/17/2013 Patient Education: Patient [...] rub. 05/21/2013 Appointment: Giuliana Manuel WPtel: [phone] [facility] Follow up 05/21/2013 Patient Education: Patient [...] the vertigo. 01/17/2013 Appointment: Giuliana Manuel WPtel: [address] [place] [address] Follow up 01/17/2013 Patient Education: Patient Medication [...] if needed. 09/20/2012 Appointment: Giuliana Manuel WPtel: [address] [place], [place] [phone] Follow up 09/20/2012 Patient Education: Patient Medication [...] begin. 06/08/2012 Appointment: [facility]Ptel: [phone] Follow up 06/08/2012 Patient Education: Patient [...] or popcorn. 04/10/2012 Appointment: Giuliana Manuel WPtel: [facility]5 [facility] Other 04/10/2012 Patient Education: Patient Medication [...] by Tuesday. 03/16/2012 Appointment: Giuliana Manuel WPtel: [address] [place], [place] [phone] Other 03/16/2012 Patient Education: Patient Medication Summary [...] this regimen. 02/03/2012 Appointment: Giuliana Manuel [facility]Ptel: [phone] Other 02/03/2012 Patient Education: Patient Medication [...] D once a week. 11/04/2011 Appointment: Giuliana Mnauel WPtel: [phone] [facility] Follow up 11/04/2011 Patient Education: Patient [...] shot 07/13/2011 Appointment: Giuliana Manuel WPtel: [phone] [facility] Other 07/13/2011 Patient Education: Patient Medication Summary Completed 07/13/2011 Patient Education: .Gage [employer] tic meal planning guide Completed 07/13/2011 Referral: Jared Lafleur [address] [facility] Referral Appointment Requested Referral: Duarte Catalan Referral Appointment Requested Referral: Dr. Willams WPtel: [address] [place], [place] [phone] Referral Initiated Referral: [facility] WPtel: [address] [facility] [place] Referral Initiated Instructions Comment Add a [...] Back pain - referr al to [facility]. Rash - reaction to soy [...]
--- OUTSIDE RECORDS SUMMARY | 2020-01-21 14:37 | XMS REPORT | Continuity of Care Document ---
Author Organization Unknown Address Unknown Phone Unavailable Allergies Active Description Code Type Severity Reaction Onset Reported/Identified Relationship to Patient Clinical Status Yes NKANo Known Allergies NKA Miscellaneous Allergy Unknown N/A 05/03/2007 Yes etanercept [id number] Drug Allerg y Moderate HTN 01/22/2016 Yes metoprolol [id number] Drug Allerg y Mild N/A 01/22/2016 Yes triamterene [id number] Drug Aller gy Unknown N/A 07/28/2016 Medications There is no data. 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 9 URTICARIA NOS 06/09/2014 BO VARGAS MD Ot 782. 1 NONSPECIF SKIN ERUPT NEC 08/20/2014 MONICA GREGORIO MD Ot 427.9 10/02/2014 MONICA GREGORIO MD Ot 427.9 10/11/2014 JG RG, MONICA Reese Ot 427.9 11/17/2014 JG RG, MONICA Reese Ot 427.9 CARDIAC DYSRHYTHMIA NOS 01/02/2015 TOMI [...] RG, MONICA Reese Ot 427.9 12/11/2015 LORRAINE RG FACC, ALI FACP CCDS Ot E78.0 12/11/2015 LORRAINE RG FACC, ALI FACP CCDS Ot I10 12/11/2015 LORRAINE RG FACC, ALI FACP CCDS Ot R00.2 12/11/2015 LORRAINE RG FACC, ALI FACP CCDS Ot R07.89 12/30/2015 LORRAINE RG FACC, ALI FACP CCDS Ot E78.0 12/30/2015 LORRAINE RG FACC, ALI FACP CCDS Ot I10 12/30/2015 LORRAINE RG FACC, ALI FACP CCDS Ot R00.2 12/30/2015 LORRAINE RG FACC, ALI FACP CCDS Ot R07.89 12/30/2015 LORRAINE RG [facility], ALI FACP CCDS Ot E78.0 12/30/2015 LORRAINE LYNN, ALI FACP CCDS Ot I10 12/30/2015 LORRAINE LYNN, ALI FACP CCDS Ot R00.2 12/30/2015 LORRAINE RG [facility], ALI FACP CCDS Ot R07.89 01/18/2016 BELEN WONG MD Ot G14 POSTPOLIO SYNDROME 01/18/2016 BELEN WONG MD Ot I10 ESSENTIAL (PRIMARY) HYPERTENSION 01/18/2016 BELEN WONG MD Ot R00.0 TACHYCARDIA, UNSPECIFIED 01/20/2016 LORRAINE RG [facility], ALI FACP CCDS Ot E78.0 PURE HYPERCHOLESTEROLEMIA 01/20/2016 LORRAINE RG [facility], ALI FACP CCDS Ot I10 ESSENTIAL (PRIMARY) HYPERTENSION 01/20/2016 LORRAINE RG [facility], ALI FACP CCDS Ot R00.2 PALPITATIONS 01/20/2016 LORRAINE RG [facility], ALI FACP CCDS Ot R07.89 OTHER CHEST PAIN 01/20/2016 LORRAINE RG [facility], ALI FACP CCDS Ot E78.0 PURE HYPERCHOLESTEROLEMIA 01/20/2016 LORRAINE RG [facility], ALI FACP CCDS Ot I10 ESSENTIAL (PRIMARY) HYPERTENSION 01/20/2016 LORRAINE RG [facility], ALI FACP CCDS Ot R00.2 PALPITATIONS 01/20/2016 LORRAINE RG [facility], ALI FACP CCDS Ot R07.89 OTHER CHEST PAIN 01/22/2016 MONICA GREGORIO MD Ot 427.9 CARDIAC DYSRHYTHMIA NOS 01/22/2016 BELEN WONG MD Ot L50.0 ALLERGIC URTICARIA 01/22/2016 BELEN WONG MD Ot T44.7X5A ADVERSE EFFECT OF BETA-ADRENORECEPTOR AN 01/22/2016 Ot V76.12 OTH SCREEN MAMMO- MALIGN NEOPLASM OF GWEN 01/22/2016 Ot 715.95 OST EOARTHROS NOS- PELVIS 01/22/2016 Ot 959.6 HIP THIGH INJURY NOS 01/22/2016 Ot 959.7 LOWE R LEG INJURY NOS 01/22/2016 Ot E000.8 OTH ER EXTERNAL CAUSE STATUS 01/22/2016 Ot E849.0 ACC IDENT IN HOME 01/22/2016 Ot E888.9 FAL L NOS 01/22/2016 Ot V58.61 ANTICOAGULANTS,LT,CURRENT USE 01/22/2016 Ot V58.83 ENC OUNTER FOR THERAPEUTIC DRUG MONITORIN 01/22/2016 Ot V43.64 HIP JOINT REPLACEMENT STATUS 01/22/2016 Ot V58.61 ANTICOAGULANTS,LT,CURRENT USE 01/22/2016 Ot V58.83 ENC OUNTER FOR THERAPEUTIC DRUG MONITORIN 01/22/2016 Ot V43.64 HIP JOINT REPLACEMENT STATUS 01/22/2016 Ot V58.61 ANTICOAGULANTS,LT,CURRENT USE 01/22/2016 Ot V58.83 ENC OUNTER FOR THERAPEUTIC DRUG MONITORIN 01/22/2016 Ot 722.4 CERV ICAL DISC DEGEN 01/22/2016 Ot 780.4 DIZZ INESS AND GIDDINESS 01/22/2016 Ot V76.12 OTH SCREEN MAMMO- MALIGN NEOPLASM OF GWEN 01/22/2016 MONICA GREGORIO MD Ot V76.12 OTH SCREEN MAMMO-MALIGN NEOPLASM OF GWEN 01/22/2016 MONICA GREGORIO MD Ot 427.9 CARDIAC DYSRHYTHMIA NOS 01/22/2016 LORRAINE RG FACC, JAKUB FACP CCDS Ot E78.0 PURE HYPERCHOLESTEROLEMIA 01/22/2016 LORRAINE RG FACC, JAKUB FACP CCDS Ot I10 ESSENTIAL (PRIMARY) HYPERTENSION 01/22/2016 LORRAINE RG FACC, JAKUB FACP CCDS Ot R00.2 PALPITATIONS 01/22/2016 LORRAINE RG FACC, JAKUB FACP CCDS Ot R07.89 OTHER CHEST PAIN 01/22/2016 LORRAINE RG FACC, ALI FACP CCDS Ot E78.0 PURE HYPERCHOLESTEROLEMIA 01/22/2016 LORRAINE RG FACC, ALI FACP CCDS Ot I10 ESSENTIAL (PRIMARY) HYPERTENSION 01/22/2016 LORRAINE RG FACC, JAKUB FACP CCDS Ot R00.2 PALPITATIONS 01/22/2016 LORRAINE RG FACC, ALI FACP CCDS Ot R07.89 OTHER CHEST PAIN 04/02/2016 JAMAR DURAN DO Ot G47. 33 OBSTRUCTIVE SLEEP APNEA (ADULT) (PEDIATR 04/03/2016 JAMAR DURAN DO Ot G47. 33 OBSTRUCTIVE SLEEP APNEA (ADULT) (PEDIATR 04/03/2016 JAMAR DURAN DO Ot I10 ESSENTIAL (PRIMARY) HYPERTENSION 04/15/2016 JAMAR DURAN DO Ot G47. 33 OBSTRUCTIVE SLEEP APNEA (ADULT) (PEDIATR 04/15/2016 JAMAR DURAN DO Ot I10 ESSENTIAL (PRIMARY) HYPERTENSION 07/17/2016 TRAM ZAMORANO MD Ot I10 ESSENTIAL (PRIMARY) HYPERTENSION 07/17/2016 TRAM ZAMORANO MD Ot R07. 89 OTHER CHEST PAIN 07/17/2016 TRAM ZAMORANO MD Ot R10. 30 LOWER ABDOMINAL PAIN, UNSPECIFIED 07/17/2016 TRAM ZAMORANO MD Ot Z79. 82 RADIOLOGIC TECHNOLOGY INSTRUCTOR (CURRENT) USE OF ASPIRIN 07/17/2016 TRAM ZAMORANO MD Ot Z79.899 OTHER PENITENTIARY (CURRENT) DRUG THERAPY 07/19/2016 TRAM ZAMORANO MD Ot I10 ESSENTIAL (PRIMARY) HYPERTENSION 07/19/2016 TRAM ZAMORANO MD Ot R07. 89 OTHER CHEST PAIN 07/19/2016 TRAM ZAMORANO MD Ot R10. 30 LOWER ABDOMINAL PAIN, UNSPECIFIED 07/19/2016 TRAM ZAMORANO MD Ot Z79. 82 PENITENTIARY (CURRENT) USE OF ASPIRIN 07/19/2016 TRAM ZAMORANO MD Ot Z79.899 OTHER RADIOLOGIC TECHNOLOGY INSTRUCTOR (CURRENT) DRUG THERAPY 07/28/2016 JG RG, MONICA Reese Ot 427.9 CARDIAC DYSRHYTHMIA NOS 07/28/2016 JG RG, MONICA Reese Ot 427.9 CARDIAC DYSRHYTHMIA NOS 07/28/2016 TRAM PERALTA MD Ot K21. 9 GASTRO-ESOPHAGEAL REFLUX DISEASE WITHOUT 07/28/2016 TRAM PERALTA MD Ot R13. 10 DYSPHAGIA, UNSPECIFIED 07/28/2016 TRAM PERALTA MD Ot Z01.818 ENCOUNTER FOR OTHER PREPROCEDURAL EXAMIN 07/29/2016 TRAM PERALTA MD Ot K21. 9 GASTRO-ESOPHAGEAL REFLUX DISEASE WITHOUT 07/29/2016 TRAM PERALTA MD Ot R13. 10 DYSPHAGIA, UNSPECIFIED 07/29/2016 TRAM PERALTA MD Ot Z01.818 ENCOUNTER FOR OTHER PREPROCEDURAL EXAMIN 07/30/2016 TRAM PERALTA MD Ot K29. 50 UNSPECIFIED CHRONIC GASTRITIS WITHOUT BL 08/19/2016 TRAM PERALTA MD D Ot K29. 50 UNSPECIFIED CHRONIC GASTRITIS WITHOUT BL 10/28/2016 Ot V58.61 ANTICOAGULANTS,LT,CURRENT USE 10/28/2016 Ot V58.83 ENC OUNTER FOR THERAPEUTIC DRUG MONITORIN 10/28/2016 Ot V43.64 HIP JOINT REPLACEMENT STATUS 10/28/2016 Ot V58.61 ANTICOAGULANTS,LT,CURRENT USE 10/28/2016 Ot V58.83 ENC OUNTER FOR THERAPEUTIC DRUG MONITORIN 10/28/2016 Ot V43.64 HIP JOINT REPLACEMENT STATUS 10/28/2016 Ot V58.61 ANTICOAGULANTS,LT,CURRENT USE 10/28/2016 Ot V58.83 ENC OUNTER FOR THERAPEUTIC DRUG MONITORIN 10/28/2016 Ot 722.4 CERV ICAL DISC DEGEN 10/28/2016 Ot 780.4 DIZZ INESS AND GIDDINESS 10/28/2016 Ot V76.12 OTH SCREEN MAMMO- MALIGN NEOPLASM OF GWEN 10/28/2016 MONICA GREGORIO MD Ot V76.12 OTH SCREEN MAMMO-MALIGN NEOPLASM OF GWEN 10/28/2016 JG RG, MONICA Reese Ot 427.9 CARDIAC DYSRHYTHMIA NOS 10/28/2016 LORRAINE RG FAC, ALI FACP CCDS Ot E78.0 PURE HYPERCHOLESTEROLEMIA 10/28/2016 LORRAINE RG FACRojas, ALI FACP CCDS Ot I10 ESSENTIAL (PRIMARY) HYPERTENSION 10/28/2016 LORRAINE RG FAC, ALI FACP CCDS Ot R00.2 PALPITATIONS 10/28/2016 LORRAINE RG FAC, ALI FACP CCDS Ot R07.89 OTHER CHEST PAIN 10/28/2016 LORRAINE RG FACRojas, ALI FACP CCDS Ot E78.0 PURE HYPERCHOLESTEROLEMIA 10/28/2016 LORRAINE RG FAC, ALI FACP CCDS Ot I10 ESSENTIAL (PRIMARY) HYPERTENSION 10/28/2016 LORRAINE RG FACC, ALI FACP CCDS Ot R00.2 PALPITATIONS 10/28/2016 LORRAINE RG FACC, ALI FACP CCDS Ot R07.89 OTHER CHEST PAIN 10/28/2016 OLMAN NORTON APRN Ot Z12.31 ENCNTR SCREEN MAMMOGRAM FOR MALIGNANT NE 10/28/2016 OLMAN NORTON APRN Ot Z12.31 ENCNTR SCREEN MAMMOGRAM FOR MALIGNANT NE 11/01/2016 OLMAN NORTON APRN Ot Z12.31 ENCNTR SCREEN MAMMOGRAM FOR MALIGNANT NE 11/01/2016 OLMAN NORTON STONE CIRCULAR SAWYER Ot Z12.31 ENCNTR SCREEN MAMMOGRAM FOR MALIGNANT NE 11/23/2016 OLMAN NORTON APRN Ot Z12.31 ENCNTR SCREEN MAMMOGRAM FOR MALIGNANT NE 11/29/2016 BELEN WONG MD Ot E87.6 HYPOKALEMIA 11/29/2016 BELEN WONG MD Ot I10 ESSENTIAL (PRIMARY) HYPERTENSION 11/29/2016 BELEN WONG MD Ot J90 PLEURAL EFFUSION, NOT ELSEWHERE CLASSIFI 11/29/2016 BELEN WONG MD Ot R53.1 WEAKNESS 11/29/2016 BELEN WONG MD, Ot R55 SYNCOPE AND COLLAPSE 11/29/2016 BELEN WONG MD Ot R91.8 OTHER NONSPECIFIC ABNORMAL FINDING OF KOFI 11/29/2016 BELEN WONG MD Ot Z79.899 OTHER RADIOLOGIC TECHNOLOGY INSTRUCTOR (CURRENT) DRUG THERAPY 12/03/2016 BELEN WONG MD [...] 12/03/2016 BELEN WONG MD Ot Z79.899 OTHER RADIOLOGIC TECHNOLOGY INSTRUCTOR (CURRENT) DRUG THERAPY 04/13/2017 Ot 722.4 CERV ICAL DISC DEGEN 04/13/2017 Ot 780.4 DIZZ INESS AND GIDDINESS 04/13/2017 Ot V76.12 OTH SCREEN MAMMO- MALIGN NEOPLASM OF GWEN 04/13/2017 MONICA GREGORIO MD Ot V76.12 OTH SCREEN MAMMO-MALIGN NEOPLASM OF GWNE 04/13/2017 MONICA GREGORIO MD Ot 427.9 CARDIAC DYSRHYTHMIA NOS 04/13/2017 LORRAINE RG FACC, ALI FACP CCDS Ot E78.0 PURE HYPERCHOLESTEROLEMIA 04/13/2017 LORRAINE RG [facility], ALI FACP CCDS Ot I10 ESSENTIAL (PRIMARY) HYPERTENSION 04/13/2017 LORRAINE RG [facility], ALI FACP CCDS Ot R00.2 PALPITATIONS 04/13/2017 LORRAINE RG [facility], ALI FACP CCDS Ot R07.89 OTHER CHEST PAIN 04/13/2017 LORRAINE RG [facility], ALI FACP CCDS Ot E78.0 PURE HYPERCHOLESTEROLEMIA 04/13/2017 LORRAINE RG [facility], ALI FACP CCDS Ot I10 ESSENTIAL (PRIMARY) HYPERTENSION 04/13/2017 LORRAINE RG [facility], ALI FACP CCDS Ot R00.2 PALPITATIONS 04/13/2017 LORRAINE RG [facility], ALI FACP CCDS Ot R07.89 OTHER CHEST PAIN 04/13/2017 OLMAN NORTON STONE CIRCULAR SAWYER Ot Z12.31 ENCNTR SCREEN MAMMOGRAM FOR MALIGNANT NE 04/18/2017 JONI LAURENT BARMAID Ot R91.1 SOLITARY PULMONARY NODULE 05/06/2017 JONI LAURENT BARMAID Ot R91.1 SOLITARY PULMONARY NODULE 05/12/2017 JONI LAURENT BARMAID Ot R91.1 SOLITARY PULMONARY NODULE 01/03/2018 DAYAMI BRUMFIELD MD Ot E78. 00 PURE HYPERCHOLESTEROLEMIA, UNSPECIFIED 01/03/2018 DAYAMI BRUMFIELD MD Ot I10 ESSENTIAL (PRIMARY) HYPERTENSION 01/03/2018 DAYAMI BRUMFIELD MD Ot K21. 9 GASTRO-ESOPHAGEAL REFLUX DISEASE WITHOUT 01/03/2018 DAYAMI BRUMFIELD MD Ot K59. 09 OTHER CONSTIPATION 01/03/2018 DAYAMI BRUMFIELD MD Ot R00. 2 PALPITATIONS 01/03/2018 DAYAMI BRUMFIELD MD Ot R60. 0 LOCALIZED EDEMA 01/03/2018 DAYAMI BRUMFIELD MD Ot Z86.018 PERSONAL HISTORY OF OTHER BENIGN NEOPLAS 01/03/2018 DAYAMI BRUMFIELD MD Ot Z86. 73 PRSNL HX OF TIA (TIA), AND CEREB INFRC W 01/03/2018 DAYAMI BRUMFIELD MD Ot Z88. 8 ALLERGY STATUS TO OTH DRUG/MEDS/BIOL SUB 01/03/2018 DAYAMI BRUMFIELD MD Ot Z90.710 ACQUIRED ABSENCE OF BOTH CERVIX AND UTER 01/04/2018 BRISSA MD, DAYAMI J Ot E78. 00 PURE HYPERCHOLESTEROLEMIA, UNSPECIFIED 01/04/2018 DAYAMI BRUMFIELD MD Ot I10 ESSENTIAL (PRIMARY) HYPERTENSION 01/04/2018 DAYAMI BRUMFIELD MD Ot K21. 9 GASTRO-ESOPHAGEAL REFLUX DISEASE WITHOUT 01/04/2018 DAYAMI BRUMFIELD MD Ot K59. 09 OTHER CONSTIPATION 01/04/2018 DAYAMI BRUMFIELD MD Ot R00. 2 PALPITATIONS 01/04/2018 DAYAMI BRUMFIELD MD Ot R60. 0 LOCALIZED EDEMA 01/04/2018 DAYAMI BRUMFIELD MD Ot Z86.018 PERSONAL HISTORY OF OTHER BENIGN NEOPLAS 01/04/2018 DAYAMI BRUMFIELD MD Ot Z86. 73 PRSNL HX OF TIA (TIA), AND CEREB INFRC W 01/04/2018 DAYAMI BRUMFIELD MD Ot Z88. 8 ALLERGY STATUS TO OTH DRUG/MEDS/BIOL SUB 01/04/2018 DAYAMI BRUMFIELD MD Ot Z90.710 ACQUIRED ABSENCE OF BOTH CERVIX AND UTER 06/01/2018 Ot V76.12 OTH SCREEN MAMMO- MALIGN NEOPLASM OF GWEN 06/01/2018 MONICA GREGORIO MD Ot V76.12 OTH SCREEN MAMMO-MALIGN NEOPLASM OF GWEN 06/01/2018 MONICA GREGORIO MD Ot 427.9 CARDIAC DYSRHYTHMIA NOS 06/01/2018 LORRAINE RG FACC, ALI FACP CCDS Ot E78.0 PURE HYPERCHOLESTEROLEMIA 06/01/2018 LORRAINE LYNNC, ALI FACP CCDS Ot I10 ESSENTIAL (PRIMARY) HYPERTENSION 06/01/2018 LORRAINE LYNNC, ALI FACP CCDS Ot R00.2 PALPITATIONS 06/01/2018 LORRAINE RG FACC, ALI FACP CCDS Ot R07.89 OTHER CHEST PAIN 06/01/2018 LORRAINE RG FACC, ALI FACP CCDS Ot E78.0 PURE HYPERCHOLESTEROLEMIA 06/01/2018 LORRAINE LYNNC, ALI FACP CCDS Ot I10 ESSENTIAL (PRIMARY) HYPERTENSION 06/01/2018 LORRAINE RG FACC, ALI FACP CCDS Ot R00.2 PALPITATIONS 06/01/2018 LORRAINE LYNNC, ALI FACP CCDS Ot R07.89 OTHER CHEST PAIN 06/01/2018 OLMAN NORTON APRN Ot Z12.31 ENCNTR SCREEN MAMMOGRAM FOR MALIGNANT NE 06/01/2018 JONI LAURENT BARMAID Ot R91.1 SOLITARY PULMONARY NODULE 06/02/2018 OLMAN NORTON STONE CIRCULAR SAWYER Ot M67.813 OTHER SPECIFIED DISORDERS OF TENDON, RIG 06/02/2018 OLMAN NORTON STONE CIRCULAR SAWYER Ot S46.011A STRAIN OF MUSC/TEND THE ROTATOR CUFF OF 06/21/2018 OLMAN NORTON STONE CIRCULAR SAWYER Ot M67.813 OTHER SPECIFIED DISORDERS OF TENDON, RIG 06/21/2018 OLMAN NORTON STONE CIRCULAR SAWYER Ot S46.011A STRAIN OF MUSC/TEND THE ROTATOR CUFF OF 06/26/2018 OLMAN NORTON STONE CIRCULAR SAWYER Ot M67.813 OTHER SPECIFIED DISORDERS OF TENDON, RIG 06/26/2018 OLMAN NORTON STONE CIRCULAR SAWYER Ot S46.011A STRAIN OF MUSC/TEND THE ROTATOR CUFF OF 12/15/2018 STANLEY, MALIK E STONE CIRCULAR SAWYER Ot M25.511 PAIN IN RIGHT SHOULDER 12/15/2018 STANLEY, MALIK E STONE CIRCULAR SAWYER Ot Z98.890 OTHER SPECIFIED POSTPROCEDURAL STATES 01/02/2019 STANLEY, MALIK E STONE CIRCULAR SAWYER Ot M25.511 PAIN IN RIGHT SHOULDER 01/02/2019 STANLEY, MALIK E STONE CIRCULAR SAWYER Ot Z98.890 OTHER SPECIFIED POSTPROCEDURAL STATES 01/23/2019 OLMAN NORTON STONE CIRCULAR SAWYER Ot Z12.31 ENCNTR SCREEN MAMMOGRAM FOR MALIGNANT NE 02/13/2019 OLMAN NORTON STONE CIRCULAR SAWYER Ot Z12.31 ENCNTR SCREEN MAMMOGRAM FOR MALIGNANT NE 03/21/2019 JONI LAURENT BARMAID Ot M25.561 PAIN IN RIGHT KNEE 03/21/2019 JONI LAURENT BARMAID Ot M79.661 PAIN IN RIGHT LOWER LEG 03/21/2019 JONI LAURENT BARMAID Ot Z91.81 HISTORY OF FALLING 04/11/2019 JONI LAURENT BARMAID Ot M25.561 PAIN IN RIGHT KNEE 04/11/2019 JONI LAURENT BARMAID Ot M79.661 PAIN IN RIGHT LOWER LEG 04/11/2019 JONI LAURENT BARMAID Ot Z91.81 HISTORY OF FALLING 07/05/2019 REAGAN DAVENPORT MD Ot M54 .2 CERVICALGIA 07/05/2019 REAGAN DAVENPORT MD Ot M54 .5 LOW BACK PAIN 09/10/2019 Fritz ZUÑIGA MD Ot E78.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 09/10/2019 Fritz ZUÑIGA MD Ot E78 .1 PURE HYPERGLYCERIDEMIA 09/10/2019 Fritz ZUÑIGA MD Ot I10 ESSENTIAL (PRIMARY) HYPERTENSION 09/10/2019 Fritz ZUÑIGA MD Ot R06.02 SHORTNESS OF BREATH 09/10/2019 Fritz ZUÑIGA MD Ot R55 SYNCOPE AND COLLAPSE 10/01/2019 Fritz ZUÑIGA MD Ot E78.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 10/01/2019 Fritz ZUÑIGA MD Ot E78 .1 PURE HYPERGLYCERIDEMIA 10/01/2019 Fritz ZUÑIGA MD 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 10/01/2019 Fritz ZUÑIGA MD Ot I10 ESSENTIAL (PRIMARY) HYPERTENSION 10/01/2019 Fritz ZUÑIGA MD Ot R55 SYNCOPE AND COLLAPSE 10/01/2019 Fritz ZUÑIGA MD Ot E78.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 10/01/2019 Fritz ZUÑIGA MD Ot E78 .1 PURE HYPERGLYCERIDEMIA 10/01/2019 Fritz ZUÑIGA MD Ot I10 ESSENTIAL (PRIMARY) HYPERTENSION 10/01/2019 Fritz ZUÑIGA MD Ot R06.02 SHORTNESS OF BREATH 10/01/2019 Fritz ZUÑIGA MD Ot R55 SYNCOPE AND COLLAPSE 10/05/2019 Fritz ZUÑIGA MD Ot E78.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 10/05/2019 Fritz ZUÑIGA MD Ot E78 .1 PURE HYPERGLYCERIDEMIA 10/05/2019 Fritz ZUÑIGA MD 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 Results Test Result Range Complete blood count (CBC) with automate d white blood cell (WBC) differential - 07/17/16 16:55 Blood leukocytes automated count (number/volume) 8.7 10*3/uL 4.3-11.0 Blood erythrocytes automated count (number/volume) 4.39 10*6/uL 4.35-5.85 Venous blood hemoglobin measurement (mass/volume) 13.1 g/dL 11.5-16.0 Blood hematocrit (volume fraction) 38 % 35-52 Automated erythrocyte mean corpuscular volume 87 [ foz_us] 80-99 Automated erythrocyte mean corpuscular h emoglobin (mass per erythrocyte) 30 pg 25-34 Automated erythrocyte mean corpuscular h emoglobin concentration measurement (mass/volume) 34 g/dL 32-36 Automated erythrocyte distribution width ratio 13. 5 % 10.0- 14.5 Automated blood platelet count (count/volume) 233 10*3/uL [...] 10*3 1.0-4.0 Blood monocytes automated count (number/volume) 0. 8 10*3 0.0-1.0 Automated eosinophil count 0.1 10*3/uL 0 .0-0.3 Automated blood basophil count (count/volume) 0.0 10*3/uL 0.0-0.1 PT panel in platelet poor plasma by coag ulation assay - 07/17/16 16:55 Prothrombin time (PT) in platelet poor plasma by coagu lation assay 12.6 s 12.2-14.7 INR in platelet poor plasma or blood by coagulation as say 1.0 0.8-1.4 Activated partial thromboplastin time (a PTT) in platelet poor plasma bycoagulation assay - 07/17/16 16:55 Activated partial thromboplastin time (a PTT) in platelet poor plasma bycoagulation assay 25 s 24-35 Comprehensive metabolic panel - 07/17/16 16:55 Serum or plasma sodium measurement (moles/volume) 141 mmol/L 135-145 Serum or plasma potassium measurement (moles/volume) 3.8 mmol/L 3.6-5.0 Serum or plasma chloride measurement (moles/volume) 108 mmol/L 98-107 Carbon dioxide 24 mmol/L 21-32 Serum or plasma anion gap determination (moles/volume) 9 mmol/L 5-14 Serum or plasma urea nitrogen measurement (mass/volume ) 19 mg/dL 7-18 Serum or plasma creatinine measurement (mass/volume) 0.79 mg/dL 0.60-1.30 Serum or plasma urea nitrogen/creatinine mass ratio 24 NRG Serum or plasma creatinine measurement w ith calculation of estimated glomerular filtration rate > NRG Serum or plasma glucose measurement (mass/volume) 96 mg/dL 70-105 Serum or plasma calcium measurement (mass/volume) 9.3 mg/dL 8.5-10.1 Serum or plasma total bilirubin measurement (mass/volu me) 0.5 mg/dL 0.1-1.0 Serum or plasma alkaline phosphatase camron surement (enzymatic activity/volume) 56 U/L 40-136 Serum or plasma aspartate aminotransfera se measurement (enzymatic activity/volume) 22 U/L 5-34 Serum or plasma alanine aminotransferase measurement (enzymatic activity/volume) 24 U/L 0-55 Serum or plasma protein measurement (mass/volume) 6.0 g/dL 6.4-8.2 Serum or plasma albumin measurement (mass/volume) 3.7 g/dL 3.2-4.5 Magnesium - 07/17/16 16:55 Magnesium 2.0 mg/dL 1.8-2.4 Serum or plasma troponin i.cardiac measu rement (mass/volume) - 07/17/16 16:55 Serum or plasma troponin i.cardiac measurement (mass/v olume) < ng/mL <0.30 Myoglobin, serum - 07/17/16 16:55 Myoglobin, serum 46.3 ng/mL 10.0-92.0 Lipase - 07/17/16 16:55 Lipase 46 U/L 8-78 Complete blood count (CBC) with automate d white blood cell (WBC) differential - 11/29/16 11:05 Blood leukocytes automated count (number/volume) 11.1 10*3/uL 4.3-11.0 Blood erythrocytes automated count (number/volume) 4.92 10*6/uL 4.35-5.85 Venous blood hemoglobin measurement (mass/volume) 14.8 g/dL 11.5-16.0 Blood hematocrit (volume fraction) 42 % 35-52 Automated erythrocyte mean corpuscular volume 85 [ foz_us] 80-99 Automated erythrocyte mean corpuscular h emoglobin (mass per erythrocyte) 30 pg 25-34 Automated erythrocyte mean corpuscular h emoglobin concentration measurement (mass/volume) 35 g/dL 32-36 Automated erythrocyte distribution width ratio 13. 8 % 10.0- 14.5 Automated blood platelet count (count/volume) 226 10*3/uL [...] 10*3 1.0-4.0 Blood monocytes automated count (number/volume) 1. 2 10*3 0.0-1.0 Automated eosinophil count 0.0 10*3/uL 0 .0-0.3 Automated blood basophil count (count/volume) 0.0 10*3/uL 0.0-0.1 Fibrin D-dimer FEU measurement in platel et poor plasma (mass/volume) - 11/29/16 11:05 Fibrin D-dimer FEU measurement in platelet [...] 5-14 Serum or plasma urea nitrogen measurement (mass/volume ) 21 mg/dL 7-18 Serum or plasma creatinine measurement (mass/volume) 0.75 mg/dL 0.60-1.30 Serum or plasma urea nitrogen/creatinine mass ratio 28 NRG Serum or plasma creatinine measurement w ith calculation of estimated glomerular filtration rate > NRG Serum or plasma glucose measurement (mass/volume) 88 mg/dL 70-105 Serum or plasma calcium measurement (mass/volume) 9.7 mg/dL 8.5-10.1 Serum or plasma total bilirubin measurement (mass/volu me) 0.7 mg/dL 0.1-1.0 Serum or plasma alkaline phosphatase camron surement (enzymatic activity/volume) 68 U/L 40-136 Serum or plasma aspartate aminotransfera se measurement (enzymatic activity/volume) 26 U/L 5-34 Serum or plasma alanine aminotransferase measurement (enzymatic activity/volume) 39 U/L 0-55 Serum or plasma protein measurement (mass/volume) 6.3 g/dL 6.4-8.2 Serum or plasma albumin measurement (mass/volume) 3.7 g/dL 3.2-4.5 Magnesium - 11/29/16 11:05 Magnesium 2.0 mg/dL 1.8-2.4 Serum or plasma troponin i.cardiac measu rement (mass/volume) - 11/29/16 11:05 Serum or plasma troponin i.cardiac measurement (mass/v olume) < ng/mL <0.30 THYROID STIMULATING HORMONE - 11/29/16 1 1:05 THYROID STIMULATING HORMONE 3.23 u[iU]/mL 0.35-4.94 Serum or plasma C reactive protein measu rement (mass/volume) - 11/29/16 11:05 Serum or plasma C reactive protein measurement (mass/v olume) 0.36 mg/dL 0.00-0.50 Complete urinalysis with reflex to cultu re - 11/29/16 11:10 Urine color determination YELLOW NRG Urine clarity determination SLIGHTLY CLOUDY NRG Urine pH measurement by test strip 6.5 5-9 Specific gravity of urine by test strip 1.010 1.016-1.022 Urine protein assay by test strip, semi-quantitative NEGATIVE NEGATIVE Urine glucose detection by automated test strip NE GATIVE NEGATIVE Erythrocytes detection in urine sediment by light micr oscopy NEGATIVE NEGATIVE Urine ketones detection by automated test strip NE GATIVE NEGATIVE Urine nitrite detection by test strip NEGATIVE NEGATIVE Urine total bilirubin detection by test strip NEGA TIVE NEGATIVE Urine urobilinogen measurement by automated test strip (mass/volume) NORMAL NORMAL Urine leukocyte esterase detection by dipstick 1+ NEGATIVE Automated urine sediment erythrocyte cou nt by microscopy (number/high power field) NONE NRG Automated urine sediment leukocyte count by microscopy (number/high power field) NONE NRG Bacteria detection in urine sediment by light microsco py NEGATIVE NRG Squamous epithelial cells detection in u rine sediment by light microscopy 0-2 NRG Crystals detection in urine sediment by light microsco py NONE NRG Casts detection in urine sediment by light microscopy NONE NRG Mucus detection in urine sediment by light microscopy NEGATIVE NRG Complete urinalysis with reflex to culture NO NRG [facility] panel - 01/03/18 01:25 Blood leukocytes automated count (number/volume) 8.6 10*3/uL 4.3-11.0 Blood erythrocytes automated count (number/volume) 4.50 10*6/uL 4.35-5.85 Venous blood hemoglobin measurement (mass/volume) 13.8 g/dL 11.5-16.0 Blood hematocrit (volume fraction) 40 % 35-52 Automated erythrocyte mean corpuscular volume 89 [ foz_us] 80-99 Automated erythrocyte mean corpuscular h emoglobin (mass per erythrocyte) 31 pg 25-34 Automated erythrocyte mean corpuscular h emoglobin concentration measurement (mass/volume) 35 g/dL 32-36 Automated erythrocyte distribution width ratio 13. 9 % 10.0- 14.5 Automated blood platelet count (count/volume) 285 10*3/uL 130-400 Automated blood platelet mean volume measurement 10.6 [foz_us] 7.4-10.4 Comprehensive metabolic panel - 01/03/18 01:25 Serum or plasma sodium measurement (moles/volume) 140 mmol/L 135-145 Serum or plasma potassium measurement (moles/volume) 3.9 mmol/L 3.6-5.0 Serum or plasma chloride measurement (moles/volume) 106 mmol/L 98-107 Carbon dioxide 22 mmol/L 21-32 Serum or plasma anion gap determination (moles/volume) 12 mmol/L 5-14 Serum or plasma urea nitrogen measurement (mass/volume ) 19 mg/dL 7-18 Serum or plasma creatinine measurement (mass/volume) 0.88 mg/dL 0.60-1.30 Serum or plasma urea nitrogen/creatinine mass ratio 22 NRG Serum or plasma creatinine measurement w ith calculation of estimated glomerular filtration rate > NRG Serum or plasma glucose measurement (mass/volume) 108 mg/dL 70-105 Serum or plasma calcium measurement (mass/volume) 9.6 mg/dL 8.5-10.1 Serum or plasma total bilirubin measurement (mass/volu me) 0.6 mg/dL 0.1-1.0 Serum or plasma alkaline phosphatase camron surement (enzymatic activity/volume) 63 U/L 40-136 Serum or plasma aspartate aminotransfera se measurement (enzymatic activity/volume) 23 U/L 5-34 Serum or plasma alanine aminotransferase measurement (enzymatic activity/volume) 26 U/L 0-55 Serum or plasma protein measurement (mass/volume) 6.4 g/dL 6.4-8.2 Serum or plasma albumin measurement (mass/volume) 3.9 g/dL 3.2-4.5 Serum or plasma troponin i.cardiac measu rement (mass/volume) - 01/03/18 01:25 Serum or plasma troponin i.cardiac measurement (mass/v olume) < ng/mL <0.30 Encounters ACCT No. Visit Date/Time Discharge Status Pt. Type Provider Facility Loc./Unit Complaint [id number] 09/06/2019 07:33:00 23:59:59 CLS Outpatient Fritz ZUÑIGA MD [facility] CARD ESSENTIAL PRIMARY HYPER TENSION [id number] 09/04/2019 08:03:00 23:59:59 CLS Outpatient Fritz ZUÑIGA MD [facility] CARD ESSENTIAL PRIMARY HYPER TENSION [id number] 07/05/2019 13:35:00 16:14:00 DIS Outpatient REAGAN DAVENPORT MD [facility] REHAB NECK AND BACK PAIN;L4-5 ANTEROLISTHESIS [id number] 03/19/2019 16:07:00 23:59:59 CLS Outpatient JONI LAURENT [facility] RAD R KNEE AND LOWE R LEG PAIN [id number] 01/22/2019 09:51:00 23:59:59 CLS Outpatient OLMAN NORTON APRN [facility] RAD SCREENING [id number] 01/08/2019 12:49:00 13:30:00 DIS Outpatient MALIK ANGEL APRN [facility] REHAB S/P R RCT REPAIR;SAD;BI CEP TENOTOMY [id number] 10/25/2018 15:47:00 23:59:59 CLS Preadmit MONICA GREGORIO MD [facility] RAD SCREENING [id number] 06/01/2018 14:59:00 018 23:59:59 CLS Outpatient OLMAN NORTON APRN [facility] RAD RIGHT SHOULDER,ARM ALICE N [id number] 01/02/2018 23:58:00 018 02:46:00 DIS Emergency DAYAMI BRUMFIELD MD [facility] ER HIGH BLOOD PRESSURE 191 /87 [id number] 07/27/2017 09:35:00 017 23:59:59 CLS Preadmit MONICA GREGORIO MD [facility] RAD POSSIBLE CERVICAL CRUSH INJ [id number] 04/15/2017 13:40:00 017 23:59:59 CLS Outpatient JONI LAURENT [facility] RAD PULMONARY NODUL ES [id number] 11/29/2016 09:45:00 017 15:02:00 DIS Emergency SCAMMON BAY MD, BELEN D [facility] ER WEAKNESS [id number] 10/29/2016 13:45:00 23:59:59 CLS Outpatient OLMAN NORTON APRN [facility] RAD SCREENING [id number] 07/30/2016 07:07:00 10:25:00 DIS Outpatient TRAM PERALTA MD [facility] SDC REFLUX [id number] 07/28/2016 05:36:00 14:12:00 DIS Outpatient TRAM PERALTA MD [facility] PREOP GERD [id number] 07/17/2016 16:41:00 18:09:00 DIS Emergency TRAM ZAMORANO MD [facility] ER CHEST TIGHTNESS, SHAKIN G, ANXIETY POSS FROM MEDS [id number] 04/02/2016 20:13:00 06:30:00 DIS Outpatient JAMAR DURAN DO [facility] SLEEP SHONNA,HYPERSOMNIA,HTN,SLE EP DISTURBANCE [id number] 01/22/2016 21:44:00 23:03:00 DIS Emergency BELEN WONG MD [facility] ER ALERGIC REACTIO N [id number] 01/18/2016 10:36:00 13:40:00 DIS Emergency BELEN WONG MD [facility] ER ELEVATED HEART RATE,DIZZINESS, POSS MED REACTION [id number] 12/09/2015 11:34:00 23:59:59 CLS Outpatient JAKUB PETERS MD, FACC, FACP CC DS [facility] CARD PALPATATION S [id number] 12/08/2015 14:28:00 23:59:59 CLS Outpatient JAKUB PETERS MD, FACC, FACP CC DS [facility] CARD PALPATATION S [id number] 01/02/2015 13:29:00 15:05:00 DIS Emergency TOMI PARIS DO [facility] ER HEART PALPITATIONS [id number] 11/18/2014 08:00:00 015 23:59:59 CLS Preadmit MONICA GREGORIO MD [facility] CARD ARRYTHMIA [id number] 08/19/2014 07:52:00 015 00:01:00 DIS Outpatient MONICA GREGORIO MD [facility] CARD ARRYTHMIA [id number] 06/09/2014 22:47:00 014 23:50:00 DIS Emergency BO VARGAS MD [facility] ER ALLERGIC REACTION [id number] 05/07/2014 09:04:00 014 23:59:59 CLS Outpatient MONICA GREGORIO MD [facility] RAD SCREENING [id number] 12/08/2015 14:28:00 Document Registration [id number] 12/08/2015 14:28:00 Document Registration [id number] 01/19/2013 10:53:00 Document Registration [id number] 04/13/2012 10:08:00 Document Registration [id number] 09/09/2011 11:10:00 Document Registration [id number] 09/06/2011 11:00:00 Document Registration [id number] 09/03/2011 10:25:00 Document Registration [id number] 08/27/2011 14:58:00 Document Registration [id number] 05/04/2011 08:47:00 Document Registration [id number] 04/12/2011 14:35:00 Document Registration [id number] 06/26/2010 11:30:00 Document Registration
--- NOTE | 2020-01-21 16:00 | NUR ---
Repeat troponin sent to lab at 1600.
[2020-01-21] MEDS ORDERED: cloNIDine 0.2 MG (CATAPRES) TAB PO ONE (17:00)
[2020-01-21] MEDS ORDERED: PANTOPRAZOLE 40 MG (PROTONIX) VIAL IV ONE (17:15)
--- NOTE | 2020-01-21 17:45 | NUR ---
Assisted pt via ED w/c to restroom et back to room #5 with no difficulty.
--- NOTE | 2020-01-21 17:52 | Consultation-Cardiology ---
HPI-Cardiology Cardiology Consultation: Date of Consultation 01/21/20 Date of Admission Attending Physician Giuliana Manuel MD Admitting Physician Giuliana Manuel MD Consulting Physician Fritz EMERSON MD HPI: Time Seen by a Provider: 16:00 Chief Complaint: Palpitations This is a 74-year-old lady who complains of palpitations since morning. She had an echocardiogram and stress test in September 2019 which were within normal limits. She denies active smoking. She denies any significant pertinent family history. She denied chest pain or shortness of breath. Her first troponin was negative however her second troponin was borderline positive. Therefore she was admitted for observation. Review of Systems-Cardiology Review of Systems Constitutional: As described under HPI; No As described under HPI, No no symptoms reported, No chills, No fever, No lightheadedness Eyes: No As described under HPI, No no symptoms reported, No blindness, No blurred vision, No contact lenses, No drainage, No decreased acuity, No foreign body sensation, No pain, No vision change Ears/Nose/Throat: No As described under HPI, No no symptoms reported, No chronic hearing loss, No ear discharge, No ear pain, No nasal drainage, No ulcerations Respiratory: No no symptoms reported; As described under HPI; No As described under HPI, No cough, No orthopnea, No shortness of breath, No SOB with excertion Cardiovascular: No no symptoms reported; As described under HPI; No As described under HPI, No chest pain, No edema, No irregular heart rate, No lightheadedness; palpitations Gastrointestinal: No no symptoms reported, No As described under HPI, No abdomen distended, No abdominal pain, No blood streaked bowels, No constipation, No diarrhea, No nausea, No vomiting, No stool coloration changes Genitourinary: No As described under HPI, No burning, No dysuria, No discharge, No frequency, No flank pain, No hematuria, No urgency : Yes : No Skin: No rash, No skin related problems, No ulcerations Psychiatric/Neurological: No anxiety, No depression, No seizure, No focal weakness, No syncope Hematologic: No bleeding abnormalities All Other Systems Reviewed Negative Unless Noted: Yes JHM-Vrnrhh-Ccmuzf Hx Patient Social History Alcohol Use: Denies Use Recreational Drug Use: No Smoking Status: Never a Smoker 2nd Hand Smoke Exposure: No Recent Foreign Travel: No Recent Infectious Disease Expo: No Hospitalization with Isolation: Denies Immunizations Up To Date Tetanus Booster (TDap): Unknown Date of Influenza Vaccine: Jul 21, 2016 Past Medical History PMH As described under Assessment. Allergies and Home Medications Allergies Coded Allergies: etanercept (Verified Allergy, Intermediate, HTN, 01/22/16) metoprolol (Verified Allergy, Mild, 01/22/16) triamterene (Verified Allergy, Unknown, 07/28/16) Home Medications Apremilast 30 Mg Tablet, 30 MG PO BID, (Reported) PT WAS TOLD TO HOLD THIS MEDICATION STARTING 01-22-2020 X 7 DAYS Atenolol 25 Mg Tablet, 25 MG PO DAILY, (Reported) Atorvastatin Calcium 10 Mg Tablet, 10 MG PO DAILY, (Reported) Calcium Carbonate 400 Mg Tab.chew, 800 MG PO PRN PRN for INDIGESTION, (Reported) Cholecalciferol (Vitamin D3) 125 Mcg Capsule, 125 MCG PO MO,TUE,TUE, (Reported) Cinnamon Bark 500 Mg Capsule, 500 MG PO DAILY, (Reported) Clonidine HCl 0.1 Mg Tablet, 0.05 MG PO 0600,1800, (Reported) TAKES OF A 0.1MG TAB TWICE DAILY @0600 & 1800 Diphenhydramine HCl 25 Mg Capsule, 25-50 MG PO HS PRN for SLEEP, (Reported) Doxazosin Mesylate 1 Mg Tablet, 1 MG PO 0000, (Reported) Famotidine 40 Mg Tablet, 40 MG PO DAILY, (Reported) Hydrochlorothiazide 12.5 Mg Tablet, 12.5 MG PO 1200, (Reported) Losartan Potassium 25 Mg Tablet, 25 MG PO 0000,1200, (Reported) TAKES TWICE DAILY @ MIDNIGHT AND NOON Multivitamin 1 Each Tablet, 1 EACH PO DAILY, (Reported) Levan-3 Fatty Acids/Fish Oil 1 Each Capsule.dr, 1 EACH PO 1800, (Reported) Ubidecarenone 100 Mg Capsule, 100 MG PO DAILY, (Reported) Patient Home Medication List Home Medication List Reviewed: Yes Physical Exam-Cardiology Physical Exam Vital Signs/I&O 01/22/20 01/22/20 01/22/20 01/22/20 04:00 04:00 07:00 08:00 Temp 36.7 Pulse 64 64 Resp 11 B/P (MAP) 115/50 (71) Pulse Ox 97 97 97 O2 Delivery Room Air Room Air Room Air 01/22/20 01/22/20 01/22/20 08:00 09:00 13:06 Pulse 71 116 Resp 11 B/P (MAP) 115/50 (71) Pulse Ox 97 97 O2 Delivery Room Air Room Air 01/21/20 23:59 Intake Total 920 ml Output Total 300 ml Balance 620 ml Capillary Refill : Less Than 3 Seconds Constitutional: appears stated age, AAO x 3; No apparent distress; well- developed, well-nourished HEENT: PERRL; No discharge; hearing is well preserved, oral hygience is good; No ulceration, No xanthelasmas are seen Neck: No carotid bruit; carotid pulses are 2 + bilaterally Respiratory: chest is bilaterally symmetric, lungs clear to auscultation Cardiovascular: regular rate-rhythm, S1 and S2 Gastrointestinal: soft, audible bowel sounds; No spleenomegaly Rectal: deferred Extremities: normal range of motion, non-tender, normal inspection; No clubbing, No cyanosis; no lower extremity edema bilateral; No significant edema Neurologic/Psychiatric: no motor/sensory deficits, alert, normal mood/affect, oriented x 3, power is 5/5 both on sides Skin: normal color; No rash, No ulcerations Data Review Labs Laboratory Tests 01/21/20 16:00: Troponin I 0.036H 01/22/20 03:26: Troponin I < 0.028, White Blood Count 8.9, Red Blood Count 4.27L, Hemoglobin 13.0, Hematocrit 39, Mean Corpuscular Volume 90, Mean Corpuscular Hemoglobin 30, Mean Corpuscular Hemoglobin Concent 34, Red Cell Distribution Width 14.8H, Platelet Count 283, Mean Platelet Volume 9.8, Neutrophils (%) (Auto) 63, Lymphocytes (%) (Auto) 26, Monocytes (%) (Auto) 10, Eosinophils (%) (Auto) 1, Basophils (%) (Auto) 0, Neutrophils # (Auto) 5.6, Lymphocytes # (Auto) 2.3, Monocytes # (Auto) 0.9, Eosinophils # (Auto) 0.0, Basophils # (Auto) 0.0, Sodium Level 141, Potassium Level 3.6, Chloride Level 108H, Carbon Dioxide Level 21, Anion Gap 12, Blood Urea Nitrogen 10, Creatinine 0.72, Estimat Glomerular Filtration Rate > 60, BUN/Creatinine Ratio 14, Glucose Level 103, Calcium Level 9.0, Corrected Calcium 9.5, Total Bilirubin 0.6, Aspartate Amino Transf (AST/SGOT) 21, Alanine Aminotransferase (ALT/SGPT) 26, Alkaline Phosphatase 62, Total Protein 5.9L, Albumin 3.4 ECG Impression ECG Initial ECG Rhythm: S.Tach Initial ECG Impression: Normal A/P-Cardiology Assessment/Admission Diagnosis Sinus tachycardia, Palpitations, borderline positive troponin Plan Sinus tachycardia, very low risk for pulmonary embolism. Borderline positive troponin: Echo, Lexiscan nuclear stress test in the morning. Observe overnight. Thank you for your consultation. Please call me if you have any questions. Nicko Emerson MD, FACP, FACC, FSCAI, FHRS, CCDS Interventional Cardiology Cardiac Electrophysiology Vascular Medicine and Endovascular Interventions Clinical Quality Measures AMI/AHF: ASA po Prior to arrival: Fritz Sherwood MD Jan 21, 2020 17:52
[2020-01-21] MEDS ORDERED: REGADENOSON 0.4 MG/5 ML SYR (LEXISCAN) IV ONE (18:00)
[2020-01-21 18:15] VITALS: BP 116/88
[2020-01-21] MEDS ORDERED: ONDANSETRON 4 MG/2 ML (SDV) Z0FRAN IV PRN (18:30)
[2020-01-21] MEDS ORDERED: ACETAMINOPHEN 325 MG TABLET PO PRN (18:30)
[2020-01-21] MEDS ORDERED: CATHETER FLUSH 10 ML SYR IV PRN (18:30)
[2020-01-21 20:00] VITALS: BP 109/60
[2020-01-21 21:00] VITALS: BP 130/71
[2020-01-21 22:00] VITALS: BP 123/69
[2020-01-21] MEDS: CATHETER FLUSH 10 ML SYR IV SCH (22:00)
[2020-01-21 23:00] VITALS: BP 109/48
[2020-01-22] VITALS: BP 113/56
[2020-01-22 03:38] LABS: BASOPHILS % (AUTO) 0 % (0-10); EOSINOPHILS % (AUTO) 1 % (0-10); HEMATOCRIT 39 % (35-52); LYMPHOCYTES # (AUTO) 2.3 X 10^3 (1.0-4.0); LYMPHOCYTES % (AUTO) 26 % (12-44); MEAN CORPUSCULAR HEMOGLOBIN 30 PG (25-34); MEAN CORPUSCULAR HGB CONC 34 G/DL (32-36); MEAN CORPUSCULAR VOLUME 90 FL (80-99); MEAN PLATELET VOLUME 9.8 FL (7.4-10.4); MONOCYTES # (AUTO) 0.9 X 10^3 (0.0-1.0); MONOCYTES % (AUTO) 10 % (0-12); NEUTROPHILS # (AUTO) 5.6 X 10^3 (1.8-7.8); NEUTROPHILS % (AUTO) 63 % (42-75); PLATELET COUNT 283 10^3/uL (130-400); RED CELL DISTRIBUTION WIDTH 14.8 % (10.0-14.5); WHITE BLOOD COUNT 8.9 10^3/uL (4.3-11.0)
[2020-01-22 03:55] LABS: ALBUMIN 3.4 GM/DL (3.2-4.5); CHLORIDE 108 MMOL/L (98-107); POTASSIUM 3.6 MMOL/L (3.6-5.0); SODIUM 141 MMOL/L (135-145)
[2020-01-22 03:57] LABS: GLUCOSE 103 MG/DL (70-105)
[2020-01-22 03:58] LABS: TOTAL PROTEIN 5.9 GM/DL (6.4-8.2)
[2020-01-22 03:59] LABS: BILIRUBIN,TOTAL 0.6 MG/DL (0.1-1.0); CARBON DIOXIDE 21 MMOL/L (21-32)
[2020-01-22 04:00] VITALS: BP 115/50
[2020-01-22 04:01] LABS: ALKALINE PHOSPHATASE 62 U/L (40-136); CREATININE SERUM 0.72 MG/DL (0.60-1.30); GFR ESTIMATED > 60
[2020-01-22 04:02] LABS: BUN/CREATININE RATIO 14
[2020-01-22 04:04] LABS: ALANINE AMINOTRANSFERASE 26 U/L (0-55)
--- NOTE | 2020-01-22 05:04 | NUR ---
This RN attempted to obtain a second peripheral IV access X2, but unable to gain access. MENA Garces also tried X2 and unable to obtain second IV access at this time.
[2020-01-22] MEDS: CATHETER FLUSH 10 ML SYR IV SCH ×2 (06:00→14:00)
[2020-01-22 08:00] VITALS: BP 115/50
--- NOTE | 2020-01-22 09:09 | Short Stay Summary ---
History of Present Illness History of Present Illness Date of Admission Jan 21, 2020 at 16:45 Date of Discharge Attending Physician Giuliana Manuel MD Admitting Physician Giuliana Manuel MD Consult Allergies and Home Medications Allergies Coded Allergies: etanercept (Verified Allergy, Intermediate, HTN, 01/22/16) metoprolol (Verified Allergy, Mild, 01/22/16) triamterene (Verified Allergy, Unknown, 07/28/16) Home Medications Cholecalciferol (Vitamin D3) 5,000 Unit Tablet, 5,000 UNIT PO WEEKLY, (Reported) Cinnamon Bark 500 Mg Capsule, 500 MG PO DAILY, (Reported) Clonidine HCl 0.1 Mg Tablet, 0.1 MG PO BID Prescribed by: BELEN WONG on 01/18/16 1329 Diphenhydramine HCl 25 Mg Capsule, 25 MG PO PRN, (Reported) Doxazosin Mesylate 1 Mg Tablet, 1 MG PO BID, (Reported) Famotidine 40 Mg Tablet, 40 MG PO DAILY Prescribed by: TRAM ZAMORANO MD on 07/17/16 1802 Hydrochlorothiazide 12.5 Mg Cap, 12.5 MG PO DAILY, (Reported) Losartan Potassium 50 Mg Tablet, 50 MG PO BID, (Reported) Emmet-3 Fatty Acids/Fish Oil 1 Each Capsule.dr, 1 EACH PO DAILY, (Reported) Past Cwucfiu-Xmxvtv-Xyzorz Hx Patient Social History Alcohol Use: Denies Use Recreational Drug Use: No Smoking Status: Never a Smoker 2nd Hand Smoke Exposure: No Recent Foreign Travel: No Contact w/other who traveled: No Recent Hopitalizations: No Recent Infectious Disease Expo: No Immunizations Up To Date Tetanus Booster (TDap): Unknown Date of Influenza Vaccine: Jul 21, 2016 Seasonal Allergies Seasonal Allergies: No Surgeries Yes (EGD/COLONOSCOPY, BACK SURGERY) Gallbladder, Hysterectomy, Joint Replacement Respiratory No Cardiovascular Yes (ELEVATED TRIGLYCERIDES) Chronic Edema/Swelling, High Cholesterol, Hypertension, Palpitations Neurological Yes (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) TIA, Vertigo Reproductive System Hx Reproductive Disorders: Yes (BENIGN TUMOR -HYSTERECTOMY AGE 29) Sexually Transmitted Disease: No 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 Gastrointestinal Yes Gastroesophageal Reflux, Chronic Constipation Musculoskeletal Yes (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) Arthritis, Chronic Back Pain, Contracture Endocrine History of Endocrine Disorders: No HEENT Loss of Vision: Bilateral Hearing Impairment: Denies Cancer No Psychosocial History of Psychiatric Problem: No Integumentary History of Skin or Integumenta: Yes Skin/Integumentary Disorders: Psoriasis Blood Transfusions History of Blood Disorders: No Adverse Reaction to a Blood Tr: No (N/A) Family Medical History Significant Family History: No Pertinent Family Hx Physical Exam Vital Signs Vital Signs - First Documented 01/21/20 13:07 Temp 36.4 Pulse 131 Resp 20 B/P (MAP) 159/87 (111) Pulse Ox 94 O2 Delivery Room Air Capillary Refill : Less Than 3 Seconds Height, Weight, BMI Height: 5'4.00" Weight: 200lbs. 6.0oz. 90.464943ts; 36.04 BMI Method:Stated Clinical Quality Measures AMI/AHF: ASA po Prior to arrival: No DVT/VTE Risk/Contraindication: Risk Factor Score Per Nursin RFS Level Per Nursing on Admit: 2=Moderate Short Stay Diagnosis Conclusion Labs Laboratory Tests 01/21/20 13:19: White Blood Count 8.7, Red Blood Count 4.79, Hemoglobin 14.4, Hematocrit 43, Mean Corpuscular Volume 90, Mean Corpuscular Hemoglobin 30, Mean Corpuscular Hemoglobin Concent 33, Red Cell Distribution Width 14.7H, Platelet Count 316, Mean Platelet Volume 10.0, Neutrophils (%) (Auto) 63, Lymphocytes (%) (Auto) 29, Monocytes (%) (Auto) 8, Eosinophils (%) (Auto) 1, Basophils (%) (Auto) 0, Neutrophils # (Auto) 5.5, Lymphocytes # (Auto) 2.5, Monocytes # (Auto) 0.7, Eosinophils # (Auto) 0.0, Basophils # (Auto) 0.0, Prothrombin Time 12.7, INR Comment 0.9, Activated Partial Thromboplast Time 30, D-Dimer 0.28, Sodium Level 142, Potassium Level 3.6, Chloride Level 106, Carbon Dioxide Level 21, Anion Gap 15H, Blood Urea Nitrogen 14, Creatinine 0.80, Estimat Glomerular Filtration Rate > 60, BUN/Creatinine Ratio 18, Glucose Level 136H, Calcium Level 9.9, Corrected Calcium 9.9, Magnesium Level 1.8, Total Bilirubin 0.6, Aspartate Amino Transf (AST/SGOT) 30, Alanine Aminotransferase (ALT/SGPT) 32, Alkaline Phosphatase 74, Myoglobin 67.3, Troponin I < 0.028, B-Type Natriuretic Peptide 26.5, Total Protein 7.0, Albumin 4.0, Amylase Level 50, Lipase 51, TSH [place] Testing 1.00 01/21/20 16:00: Troponin I 0.036H 01/22/20 03:26: White Blood Count 8.9, Red Blood Count 4.27L, Hemoglobin 13.0, Hematocrit 39, Mean Corpuscular Volume 90, Mean Corpuscular Hemoglobin 30, Mean Corpuscular Hemoglobin Concent 34, Red Cell Distribution Width 14.8H, Platelet Count 283, Mean Platelet Volume 9.8, Neutrophils (%) (Auto) 63, Lymphocytes (%) (Auto) 26, Monocytes (%) (Auto) 10, Eosinophils (%) (Auto) 1, Basophils (%) (Auto) 0, Neutrophils # (Auto) 5.6, Lymphocytes # (Auto) 2.3, Monocytes # (Auto) 0.9, Eosinophils # (Auto) 0.0, Basophils # (Auto) 0.0, Sodium Level 141, Potassium Level 3.6, Chloride Level 108H, Carbon Dioxide Level 21, Anion Gap 12, Blood Urea Nitrogen 10, Creatinine 0.72, Estimat Glomerular Filtration Rate > 60, BUN/Creatinine Ratio 14, Glucose Level 103, Calcium Level 9.0, Corrected Calcium 9.5, Total Bilirubin 0.6, Aspartate Amino Transf (AST/SGOT) 21, Alanine Aminotransferase (ALT/SGPT) 26, Alkaline Phosphatase 62, Troponin I < 0.028, Total Protein 5.9L, Albumin 3.4 GIULIANA MANUEL MD Jan 22, 2020 09:09
[2020-01-22] MEDS ORDERED: ATOR10TA66 PO (09:44)
[2020-01-22] MEDS ORDERED: HYDR12.56 PO (09:44)
[2020-01-22] MEDS ORDERED: FAMO40TA6 PO (09:44)
[2020-01-22] MEDS ORDERED: ATEN25TA PO (09:44)
[2020-01-22] MEDS ORDERED: LOSA25TA41 PO (09:44)
[2020-01-22] MEDS ORDERED: CHOL500050 PO (09:46)
[2020-01-22] MEDS ORDERED: UBID100C17 PO (09:51)
[2020-01-22] MEDS ORDERED: CLON0.1T PO (09:51)
[2020-01-22] MEDS ORDERED: MULT-1136 PO (09:51)
[2020-01-22] MEDS ORDERED: CALC10009 PO (09:55)
[2020-01-22] MEDS ORDERED: APRE30TA2 PO ×2 (10:06→10:08)
--- NOTE | 2020-01-22 10:09 | NUR ---
SPOKE WITH THE PT AND WENT THRU THE EXT MED HISTORY TO COMPLETE THE MED REC PT WAS ABLE TO TELL ME ALL HER MEDICATION AND HOW/WHEN SHE TAKES EACH- THAT INFORMATION MATCHED THE EXT MED HISTORY. PT GETS SAMPLES OF OTEZLA 30MG FROM DR. MERRILL GIVEN ON 12-24-2019. SHE HAS COMPLETED THE STEP UP DOSE. OTC MEDS: COQ10 CINNAMON BARK MTV VIT D BENADRYL TUMS FISH OIL
--- OUTSIDE RECORDS SUMMARY | 2020-01-22 10:30 | XMS REPORT | Continuity of Care Document ---
Author Organization Unknown Address Unknown Phone Unavailable Allergies Active Description Code Type Severity Reaction Onset Reported/Identified Relationship to Patient Clinical Status Yes NKANo Known Allergies NKA Miscellaneous Allergy Unknown N/A 05/03/2007 Yes etanercept [id number] Drug Allerg y Moderate HTN 01/22/2016 Yes metoprolol [id number] Drug Allerg y Mild N/A 01/22/2016 Yes triamterene [id number] Drug Aller gy Unknown N/A 07/28/2016 Medications [...] FACP CCDS Ot R07.89 12/30/2015 LORRAINE RG [facility], ALI FACP CCDS Ot E78.0 12/30/2015 LORRAINE LYNN, ALI FACP CCDS Ot I10 12/30/2015 LORRAINE LYNN, ALI FACP CCDS Ot R00.2 12/30/2015 LORRAINE RG [facility], ALI FACP CCDS Ot R07.89 01/18/2016 BELEN WONG MD Ot G14 POSTPOLIO SYNDROME 01/18/2016 BEELN WONG MD Ot I10 ESSENTIAL (PRIMARY) HYPERTENSION 01/18/2016 BELEN WONG MD Ot R00.0 TACHYCARDIA, UNSPECIFIED 01/20/2016 LORRAINE RG [facility], ALI FACP CCDS Ot E78.0 PURE HYPERCHOLESTEROLEMIA 01/20/2016 LORRAINE RG [facility], ALI FACP CCDS Ot I10 ESSENTIAL (PRIMARY) HYPERTENSION 01/20/2016 LORRAINE RG [facility], ALI FACP CCDS Ot R00.2 PALPITATIONS 01/20/2016 LORRAINE RG [facility], ALI FACP CCDS Ot R07.89 OTHER CHEST PAIN 01/20/2016 LORRAINE RG [facility], ALI FACP CCDS Ot E78.0 PURE HYPERCHOLESTEROLEMIA 01/20/2016 LORRAINE RG [facility], ALI FACP CCDS Ot I10 ESSENTIAL (PRIMARY) HYPERTENSION 01/20/2016 LORRAINE RG [facility], ALI FACP CCDS Ot R00.2 PALPITATIONS 01/20/2016 LORRAINE RG [facility], ALI FACP CCDS Ot R07.89 OTHER CHEST [...] 07/17/2016 TRAM ZAMORANO MD Ot Z79. 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 89 OTHER CHEST PAIN 07/19/2016 TRAM ZAMORANO MD Ot R10. 30 LOWER ABDOMINAL PAIN, UNSPECIFIED 07/19/2016 TRAM ZAMORANO MD Ot Z79. 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 04/13/2017 Ot 780.4 DIZZ INESS AND GIDDINESS 04/13/2017 Ot V76.12 OTH SCREEN MAMMO- MALIGN NEOPLASM OF GWEN 04/13/2017 MONICA GREGORIO MD Ot V76.12 OTH SCREEN MAMMO-MALIGN NEOPLASM OF GWEN 04/13/2017 MONICA GREGORIO MD Ot 427.9 CARDIAC DYSRHYTHMIA NOS 04/13/2017 LORRAINE RG FACC, ALI FACP CCDS Ot E78.0 PURE HYPERCHOLESTEROLEMIA 04/13/2017 LORRAINE RG [facility], ALI FACP CCDS Ot I10 ESSENTIAL (PRIMARY) HYPERTENSION 04/13/2017 LORRAINE RG [facility], ALI FACP CCDS Ot R00.2 PALPITATIONS 04/13/2017 LORRAINE RG [facility], ALI FACP CCDS Ot R07.89 OTHER CHEST PAIN 04/13/2017 LORRAINE RG [facility], ALI FACP CCDS Ot E78.0 PURE HYPERCHOLESTEROLEMIA 04/13/2017 LORRAINE RG [facility], ALI FACP CCDS Ot I10 ESSENTIAL (PRIMARY) HYPERTENSION 04/13/2017 LORRAINE RG [facility], ALI FACP CCDS Ot R00.2 PALPITATIONS 04/13/2017 LORRAINE RG [facility], ALI FACP CCDS Ot R07.89 OTHER CHEST PAIN 04/13/2017 OLMAN NORTON [employer] PACK[employer] LEAK TESTER Ot Z12.31 ENCNTR SCREEN MAMMOGRAM FOR MALIGNANT NE 04/18/2017 JONI LAURENT PRODUCTION WEIGHER Ot R91.1 SOLITARY PULMONARY NODULE 05/06/2017 JONI LAURENT PRODUCTION WEIGHER Ot R91.1 SOLITARY PULMONARY NODULE 05/12/2017 JONI LAURENT PRODUCTION WEIGHER Ot R91.1 SOLITARY PULMONARY NODULE 01/03/2018 DAYAMI [...] MAMMOGRAM FOR MALIGNANT NE 06/01/2018 JONI LAURENT PRODUCTION WEIGHER Ot R91.1 SOLITARY PULMONARY NODULE 06/02/2018 OLMAN NORTON [employer] PACK[employer] LEAK TESTER Ot M67.813 OTHER SPECIFIED DISORDERS OF TENDON, RIG 06/02/2018 OLMAN NORTON [employer]IC[employer] PACKAGES LEAK TESTER Ot S46.011A STRAIN OF MUSC/TEND THE ROTATOR CUFF OF 06/21/2018 OLMAN NORTON SEMICONDUCTOR PACKAGES LEAK TESTER Ot M67.813 OTHER SPECIFIED DISORDERS OF TENDON, RIG 06/21/2018 OLMAN NORTON [employer]IC[employer] PACKAGES LEAK TESTER Ot S46.011A STRAIN OF MUSC/TEND THE ROTATOR CUFF OF 06/26/2018 OLMAN NORTON SEMICONDUCTOR PACKAGES LEAK TESTER Ot M67.813 OTHER SPECIFIED DISORDERS OF TENDON, RIG 06/26/2018 OLMAN NORTON SEMICOND[employer]CTOR PACKAGES LEAK TESTER Ot S46.011A STRAIN OF MUSC/TEND THE ROTATOR CUFF OF 12/15/2018 STANLEY, MALIK E SEMICONDUCTOR PACKAGES LEAK TESTER Ot M25.511 PAIN IN RIGHT SHOULDER 12/15/2018 STANLEY, MALIK E [employer] PACK[employer] LEAK TESTER Ot Z98.890 OTHER SPECIFIED POSTPROCEDURAL STATES 01/02/2019 STANLEY, MALIK E [employer]IC[employer] PACKAGES LEAK TESTER Ot M25.511 PAIN IN RIGHT SHOULDER 01/02/2019 STANLEY, MALIK E [employer]IC[employer]CTOR PACKAGES LEAK TESTER Ot Z98.890 OTHER SPECIFIED POSTPROCEDURAL STATES 01/08/2019 STANLEY, MALIK E [employer] PACKAGES LEAK TESTER Ot M25.511 PAIN IN RIGHT SHOULDER 01/08/2019 STANLEY, MALIK E [employer]IC[employer]CTOR PACKAGES LEAK TESTER Ot Z98.890 OTHER SPECIFIED POSTPROCEDURAL STATES 01/23/2019 OLMAN NORTON [employer]IC[employer]CTOR PACKAGES LEAK TESTER Ot Z12.31 ENCNTR SCREEN MAMMOGRAM FOR MALIGNANT NE 02/13/2019 OLMAN NORTON [employer]IC[employer]CTOR PACKAGES LEAK TESTER Ot Z12.31 ENCNTR SCREEN MAMMOGRAM FOR MALIGNANT NE 03/21/2019 JONI LAURENT PRODUCTION WEIGHER Ot M25.561 PAIN IN RIGHT KNEE 03/21/2019 JONI LAURENT PRODUCTION WEIGHER Ot M79.661 PAIN IN RIGHT LOWER LEG 03/21/2019 JONI LAURENT PRODUCTION WEIGHER Ot Z91.81 HISTORY OF FALLING 04/11/2019 JONI LAURENT PRODUCTION WEIGHER Ot M25.561 PAIN IN RIGHT KNEE 04/11/2019 JONI LAURENT PRODUCTION WEIGHER Ot M79.661 PAIN IN RIGHT LOWER LEG 04/11/2019 JONI LAURENT PRODUCTION WEIGHER Ot Z91.81 HISTORY OF FALLING 07/05/2019 REAGAN [...] MD Ot I10 ESSENTIAL (PRIMARY) HYPERTENSION 10/05/2019 YOGESH RG Fritz SHERWOOD Ot R55 SYNCOPE AND COLLAPSE 10/05/2019 YOGESH RG, Fritz SHERWOOD Ot E78.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 10/05/2019 YOGESH RG, Fritz SHERWOOD Ot E78 .1 PURE HYPERGLYCERIDEMIA 10/05/2019 YOGESH RG, Fritz SHERWOOD Ot I10 ESSENTIAL (PRIMARY) HYPERTENSION 10/05/2019 YOGESH RG, Fritz SHERWOOD Ot R06.02 SHORTNESS OF BREATH 10/05/2019 YOGESH RG, Fritz SHERWOOD Ot R55 SYNCOPE AND COLLAPSE 01/21/2020 JG RG, MONICA Reese Ot 427.9 CARDIAC DYSRHYTHMIA NOS 01/21/2020 LORRAINE RG FACC, ALI FACP CCDS Ot E78.0 PURE HYPERCHOLESTEROLEMIA 01/21/2020 LORRAINE RG FACC, ALI FACP CCDS Ot I10 ESSENTIAL (PRIMARY) HYPERTENSION 01/21/2020 LORRAINE RG FACC, ALI FACP CCDS Ot R00.2 PALPITATIONS 01/21/2020 LORRAINE RG FACC, ALI FACP CCDS Ot R07.89 OTHER CHEST PAIN 01/21/2020 LORRAINE RG FACC, ALI FACP CCDS Ot E78.0 PURE HYPERCHOLESTEROLEMIA 01/21/2020 LORRAINE RG FACC, ALI FACP CCDS Ot I10 ESSENTIAL (PRIMARY) HYPERTENSION 01/21/2020 LORRAINE RG FACC, ALI FACP CCDS Ot R00.2 PALPITATIONS 01/21/2020 LORRAINE RG FACC, ALI FACP CCDS Ot R07.89 OTHER CHEST PAIN 01/21/2020 OLMAN NORTON APRN Ot Z12.31 ENCNTR SCREEN MAMMOGRAM FOR MALIGNANT NE 01/21/2020 JONI LAURENT PRODUCTION WEIGHER Ot R91.1 SOLITARY PULMONARY NODULE 01/21/2020 OLMAN NORTON [employer]ICOND[employer] PACKAGES LEAK TESTER Ot M67.813 OTHER SPECIFIED DISORDERS OF TENDON, RIG 01/21/2020 OLMAN NORTON SEMICONDUCTOR PACKAGES LEAK TESTER Ot S46.011A STRAIN OF MUSC/TEND THE ROTATOR CUFF OF 01/21/2020 OLMAN NORTON SEMICONDUCTOR PACKAGES LEAK TESTER Ot Z12.31 ENCNTR SCREEN MAMMOGRAM FOR MALIGNANT NE 01/21/2020 JONI LAURENT PRODUCTION WEIGHER Ot M25.561 PAIN IN RIGHT KNEE 01/21/2020 JONI LAURENT PRODUCTION WEIGHER Ot M79.661 PAIN IN RIGHT LOWER LEG 01/21/2020 LAURENTJONI PRODUCTION WEIGHER Ot Z91.81 HISTORY OF FALLING 01/21/2020 Fritz ZUÑIGA MD, Ot E78.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 01/21/2020 YOGESH RG, Fritz SHERWOOD Ot E78 .1 PURE HYPERGLYCERIDEMIA 01/21/2020 YOGESH RG, Fritz SHERWOOD 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 01/21/2020 Fritz ZUÑIGA MD, Ot I10 ESSENTIAL (PRIMARY) HYPERTENSION 01/21/2020 Fritz ZUÑIGA MD, Ot R55 SYNCOPE AND COLLAPSE 01/21/2020 Fritz ZUÑIGA MD, Ot E78.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 01/21/2020 Fritz ZUÑIGA MD, Ot E78 .1 PURE HYPERGLYCERIDEMIA 01/21/2020 Fritz ZUÑIGA MD, Ot I10 ESSENTIAL (PRIMARY) HYPERTENSION 01/21/2020 YOGESH RG, Fritz SHERWOOD Ot R06.02 SHORTNESS OF BREATH 01/21/2020 Fritz ZUÑIGA MD, Ot R55 SYNCOPE AND [...] NO NRG Automated blood complete blood count (he mogram) panel - 01/03/18 01:25 Blood leukocytes automated [...] i.cardiac measurement (mass/v olume) < ng/mL <0.30 Complete blood count (CBC) with automate d white blood cell (WBC) differential - 01/21/20 13:19 Blood leukocytes automated count (number/volume) 8.7 10*3/uL 4.3-11.0 Blood erythrocytes automated count (number/volume) 4.79 10*6/uL 4.35-5.85 Venous blood hemoglobin measurement (mass/volume) 14.4 g/dL 11.5-16.0 Blood hematocrit (volume fraction) 43 % 35-52 Automated erythrocyte mean corpuscular volume 90 [ foz_us] 80-99 Automated erythrocyte mean corpuscular h emoglobin (mass per erythrocyte) 30 pg 25-34 Automated erythrocyte mean corpuscular h emoglobin concentration measurement (mass/volume) 33 g/dL 32-36 Automated erythrocyte distribution width ratio 14. 7 % 10.0- 14.5 Automated blood platelet count (count/volume) 316 10*3/uL 130-400 Automated blood platelet mean volume measurement 10.0 [foz_us] 7.4-10.4 Automated blood neutrophils/100 leukocytes 63 % 42-75 Automated blood lymphocytes/100 leukocytes 29 % 12-44 Blood monocytes/100 leukocytes 8 % 0-12 Automated blood eosinophils/100 leukocytes 1 % 0-10 Automated blood basophils/100 leukocytes 0 % 0-10 Blood neutrophils automated count (number/volume) 5.5 10*3 1.8-7.8 Blood lymphocytes automated count (number/volume) 2.5 10*3 1.0-4.0 Blood monocytes automated count (number/volume) 0. 7 10*3 0.0-1.0 Automated eosinophil count 0.0 10*3/uL 0 .0-0.3 Automated blood basophil count (count/volume) 0.0 10*3/uL 0.0-0.1 Comprehensive metabolic panel - 01/21/20 13:19 Serum or plasma sodium measurement (moles/volume) 142 mmol/L 135-145 Serum or plasma potassium measurement (moles/volume) 3.6 mmol/L 3.6-5.0 Serum or plasma chloride measurement (moles/volume) 106 mmol/L 98-107 Carbon dioxide 21 mmol/L 21-32 Serum or plasma anion gap determination (moles/volume) 15 mmol/L 5-14 Serum or plasma urea nitrogen measurement (mass/volume ) 14 mg/dL 7-18 Serum or plasma creatinine measurement (mass/volume) 0.80 mg/dL 0.60-1.30 Serum or plasma urea nitrogen/creatinine mass ratio 18 NRG Serum or plasma creatinine measurement w ith calculation of estimated glomerular filtration rate > NRG Serum or plasma glucose measurement (mass/volume) 136 mg/dL 70-105 Serum or plasma calcium measurement (mass/volume) 9.9 mg/dL 8.5-10.1 Serum or plasma total bilirubin measurement (mass/volu me) 0.6 mg/dL 0.1-1.0 Serum or plasma alkaline phosphatase camron surement (enzymatic activity/volume) 74 U/L 40-136 Serum or plasma aspartate aminotransfera se measurement (enzymatic activity/volume) 30 U/L 5-34 Serum or plasma alanine aminotransferase measurement (enzymatic activity/volume) 32 U/L 0-55 Serum or plasma protein measurement (mass/volume) 7.0 g/dL 6.4-8.2 Serum or plasma albumin measurement (mass/volume) 4.0 g/dL 3.2-4.5 CALCIUM CORRECTED 9.9 mg/dL 8.5-10.1 Magnesium - 01/21/20 13:19 Magnesium 1.8 mg/dL 1.6-2.4 PT panel in platelet poor plasma by coag ulation assay - 01/21/20 13:19 Prothrombin time (PT) in platelet poor plasma by coagu lation assay 12.7 s 12.2-14.7 INR in platelet poor plasma or blood by coagulation as say 0.9 0.8-1.4 Activated partial thromboplastin time (a PTT) in platelet poor plasma bycoagulation assay - 01/21/20 13:19 Activated partial thromboplastin time (a PTT) in platelet poor plasma bycoagulation assay 30 s 24-35 Myoglobin, serum - 01/21/20 13:19 Myoglobin, serum 67.3 ng/mL 10.0-92.0 Serum or plasma amylase measurement (enz ymatic activity/volume) - 01/21/20 13:19 Serum or plasma amylase measurement (enzymatic activit y/volume) 50 U/L 25-125 Serum or plasma lithium measurement (mol es/volume) - 01/21/20 13:19 BNP PT 26.5 pg/mL <100.0 Lipase - 01/21/20 13:19 Lipase 51 U/L 8-78 Serum or plasma troponin i.cardiac measu rement (mass/volume) - 01/21/20 13:19 Serum or plasma troponin i.cardiac measurement (mass/v olume) < ng/mL <0.028 Fibrin D-dimer FEU measurement in platel et poor plasma (mass/volume) - 01/21/20 13:19 Fibrin D-dimer FEU measurement in platelet poor plasma (mass/volume) 0.28 ug/mL 0.00-0.49 Serum or plasma thyrotropin measurement by detection limit <=0.05 miu/l (units/volume) - 01/21/20 13:19 Serum or plasma thyrotropin measurement by detection limit <=0.05 miu/l (units/volume) 1.00 u[iU]/mL 0.35-4.94 Serum or plasma troponin i.cardiac measu rement (mass/volume) - 01/21/20 16:00 Serum or plasma troponin i.cardiac measurement (mass/v olume) 0.036 ng/mL <0.028 Complete blood count (CBC) with automate d white blood cell (WBC) differential - 01/22/20 03:26 Blood leukocytes automated count (number/volume) 8.9 10*3/uL 4.3-11.0 Blood erythrocytes automated count (number/volume) 4.27 10*6/uL 4.35-5.85 Venous blood hemoglobin measurement (mass/volume) 13.0 g/dL 11.5-16.0 Blood hematocrit (volume fraction) 39 % 35-52 Automated erythrocyte mean corpuscular volume 90 [ foz_us] 80-99 Automated erythrocyte mean corpuscular h emoglobin (mass per erythrocyte) 30 pg 25-34 Automated erythrocyte mean corpuscular h emoglobin concentration measurement (mass/volume) 34 g/dL 32-36 Automated erythrocyte distribution width ratio 14. 8 % 10.0- 14.5 Automated blood platelet count (count/volume) 283 10*3/uL 130-400 Automated blood platelet mean volume measurement 9.8 [foz_us] 7.4-10.4 Automated blood neutrophils/100 leukocytes 63 % 42-75 Automated blood lymphocytes/100 leukocytes 26 % 12-44 Blood monocytes/100 leukocytes 10 % 0-12 Automated blood eosinophils/100 leukocytes 1 % 0-10 Automated blood basophils/100 leukocytes 0 % 0-10 Blood neutrophils automated count (number/volume) 5.6 10*3 1.8-7.8 Blood lymphocytes automated count (number/volume) 2.3 10*3 1.0-4.0 Blood monocytes automated count (number/volume) 0. 9 10*3 0.0-1.0 Automated eosinophil count 0.0 10*3/uL 0 .0-0.3 Automated blood basophil count (count/volume) 0.0 10*3/uL 0.0-0.1 Comprehensive metabolic panel - 01/22/20 03:26 Serum or plasma sodium measurement (moles/volume) 141 mmol/L 135-145 Serum or plasma potassium measurement (moles/volume) 3.6 mmol/L 3.6-5.0 Serum or plasma chloride measurement (moles/volume) 108 mmol/L 98-107 Carbon dioxide 21 mmol/L 21-32 Serum or plasma anion gap determination (moles/volume) 12 mmol/L 5-14 Serum or plasma urea nitrogen measurement (mass/volume ) 10 mg/dL 7-18 Serum or plasma creatinine measurement (mass/volume) 0.72 mg/dL 0.60-1.30 Serum or plasma urea nitrogen/creatinine mass ratio 14 NRG Serum or plasma creatinine measurement w ith calculation of estimated glomerular filtration rate > NRG Serum or plasma glucose measurement (mass/volume) 103 mg/dL 70-105 Serum or plasma calcium measurement (mass/volume) 9.0 mg/dL 8.5-10.1 Serum or plasma total bilirubin measurement (mass/volu me) 0.6 mg/dL 0.1-1.0 Serum or plasma alkaline phosphatase camron surement (enzymatic activity/volume) 62 U/L 40-136 Serum or plasma aspartate aminotransfera se measurement (enzymatic activity/volume) 21 U/L 5-34 Serum or plasma alanine aminotransferase measurement (enzymatic activity/volume) 26 U/L 0-55 Serum or plasma protein measurement (mass/volume) 5.9 g/dL 6.4-8.2 Serum or plasma albumin measurement (mass/volume) 3.4 g/dL 3.2-4.5 CALCIUM CORRECTED 9.5 mg/dL 8.5-10.1 Serum or plasma troponin i.cardiac measu rement (mass/volume) - 01/22/20 03:26 Serum or plasma troponin i.cardiac measurement (mass/v olume) < ng/mL <0.028 Encounters ACCT No. Visit Date/Time Discharge Status Pt. Type Provider Facility Loc./Unit Complaint [id number] 09/06/2019 07:33:00 23:59:59 CLS Outpatient Fritz ZUÑIGA MD [facility] CARD ESSENTIAL PRIMARY HYPER TENSION [id number] 09/04/2019 08:03:00 23:59:59 CLS Outpatient Fritz ZUÑIGA MD [facility] CARD ESSENTIAL PRIMARY HYPER TENSION [id number] 07/05/2019 13:35:00 16:14:00 DIS [facility] ANTEROLISTHESIS [id number] 03/19/2019 16:07:00 23:59:59 CLS Outpatient JONI LAURENT [facility] RAD R KNEE AND LOWE R LEG PAIN [id number] 01/22/2019 09:51:00 23:59:59 CLS Outpatient OLMAN NORTON APRN [facility] RAD SCREENING [id number] 01/08/2019 12:49:00 13:30:00 DIS Outpatient MALIK ANGEL APRN [facility] REHAB S/P R RCT REPAIR;SAD;BI CEP TENOTOMY [id number] 10/25/2018 15:47:00 23:59:59 CLS Preadmit MONICA GREGORIO MD [facility] RAD SCREENING [id number] 06/01/2018 14:59:00 018 23:59:59 CLS Outpatient OLMAN NORTON APRN [facility] RAD RIGHT SHOULDER,ARM ALICE N [id number] 01/02/2018 23:58:00 018 02:46:00 DIS Emergency BRISSA RG, DAYAMI Garcia [facility] ER HIGH BLOOD PRESSURE 191 /87 [id number] 07/27/2017 09:35:00 017 23:59:59 CLS Preadmit MONICA GREGORIO MD [facility] RAD POSSIBLE CERVICAL CRUSH INJ [id number] 04/15/2017 13:40:00 23:59:59 CLS Outpatient JONI LAURENT [facility] RAD PULMONARY NODUL ES [id number] 11/29/2016 09:45:00 017 15:02:00 DIS Emergency BELEN WONG MD [facility] ER WEAKNESS [id number] 10/29/2016 13:45:00 017 23:59:59 CLS Outpatient OLMAN NORTON APRN [facility] RAD SCREENING [id number] 07/30/2016 07:07:00 016 10:25:00 DIS Outpatient TRAM PERALTA MD [facility] SDC REFLUX [id number] 07/28/2016 05:36:00 14:12:00 DIS Outpatient TRAM PERALTA MD [facility] PREOP GERD [id number] 07/17/2016 16:41:00 18:09:00 DIS Emergency TRAM ZAMORANO MD [facility] ER CHEST TIGHTNESS, SHAKIN G, ANXIETY POSS FROM MEDS [id number] 04/02/2016 20:13:00 06:30:00 DIS Outpatient JAMAR DURAN DO [facility] SLEEP SHONNA,HYPERSOMNIA,HTN,SLE EP DISTURBANCE [id number] 01/22/2016 21:44:00 04/21/2 016 23:03:00 DIS Emergency BELEN WONG MD [facility] ER ALERGIC REACTIO N [id number] 01/18/2016 10:36:00 016 13:40:00 DIS Emergency BELEN WONG MD [facility] ER ELEVATED HEART RATE,DIZZINESS, POSS MED REACTION [id number] 12/09/2015 11:34:00 016 23:59:59 CLS Outpatient LORRAINE RG FACC, JAKUB LYNNP CC DS [facility] CARD PALPATATION S [id number] 12/08/2015 14:28:00 016 23:59:59 CLS Outpatient LORRAINE RG FACC, JAKUB DAVEY CC DS [facility] CARD PALPATATION S [id number] 01/02/2015 13:29:00 015 15:05:00 DIS Emergency TOMI PARIS DO [facility] ER HEART PALPITATIONS [id number] 11/18/2014 08:00:00 015 23:59:59 CLS Preadmit MONICA GREGORIO MD [facility] CARD ARRYTHMIA [id number] 08/19/2014 07:52:00 015 00:01:00 DIS Outpatient MONICA GREGORIO MD [facility] CARD ARRYTHMIA [id number] 06/09/2014 22:47:00 014 23:50:00 DIS Emergency BO VARGAS MD [facility] ER ALLERGIC REACTION [id number] 05/07/2014 09:04:00 014 23:59:59 CLS Outpatient MONICA GREGORIO MD [facility] RAD SCREENING [id number] 01/21/2020 16:45:[address] Inpatient MONICA GREGORIO MD [facility] ICU RACING HEART [id number] 12/08/2015 14:28:00 Document Registration [id number] 12/08/2015 14:28:00 Document Registration [id number] 01/19/2013 10:53:00 Document Registration [id number] 04/13/2012 10:08:00 Document Registration [id number] 09/09/2011 11:10:00 Document Registration [id number] 09/06/2011 11:00:00 Document Registration [id number] 09/03/2011 10:25:00 Document Registration [id number] 08/27/2011 14:58:00 Document Registration [id number] 05/04/2011 08:47:00 Document Registration [id number] 04/12/2011 14:35:00 Document Registration [id number] 06/26/2010 11:30:00 Document Registration
[2020-01-22] MEDS ORDERED: REGADENOSON 0.4 MG/5 ML SYR (LEXISCAN) IV ONE (11:28)
[2020-01-22 12:15] VITALS: BP 155/77
--- NOTE | 2020-01-22 13:23 | Cardiology Progress Note ---
Cardiology SOAP Progress Note Subjective: No further cardiac symptoms. Objective: I&O/Vital Signs 01/22/20 01/22/20 01/22/20 01/22/20 04:00 04:00 07:00 08:00 Temp 36.7 Pulse 64 64 Resp 11 B/P (MAP) 115/50 (71) Pulse Ox 97 97 97 O2 Delivery Room Air Room Air Room Air 01/22/20 01/22/20 01/22/20 08:00 09:00 13:06 Pulse 71 116 Resp 11 B/P (MAP) 115/50 (71) Pulse Ox 97 97 O2 Delivery Room Air Room Air 01/21/20 23:59 Intake Total 920 ml Output Total 300 ml Balance 620 ml Weight (Pounds): 200 Weight (Ounces): 6.0 Weight (Calculated Kilograms): 90.791379 Constitutional: appears stated age, AAO x 3; No apparent distress; well- developed, well-nourished Respiratory: chest is bilaterally symmetric, lungs clear to auscultation Cardiovascular: regular rate-rhythm, S1 and S2 Gastrointestional: soft, audible bowel sounds; No spleenomegaly Extremities: normal range of motion, non-tender, normal inspection; No clubbing, No cyanosis; no lower extremity edema bilateral; No significant edema Neurologic/Psychiatric: no motor/sensory deficits, alert, normal mood/affect, oriented x 3, power is 5/5 both on sides Skin: normal color; No rash, No ulcerations Results/Procedures: Labs Laboratory Tests 01/21/20 16:00: Troponin I 0.036H 01/22/20 03:26: Troponin I < 0.028, White Blood Count 8.9, Red Blood Count 4.27L, Hemoglobin 13.0, Hematocrit 39, Mean Corpuscular Volume 90, Mean Corpuscular Hemoglobin 30, Mean Corpuscular Hemoglobin Concent 34, Red Cell Distribution Width 14.8H, Platelet Count 283, Mean Platelet Volume 9.8, Neutrophils (%) (Auto) 63, Lymphocytes (%) (Auto) 26, Monocytes (%) (Auto) 10, Eosinophils (%) (Auto) 1, Basophils (%) (Auto) 0, Neutrophils # (Auto) 5.6, Lymphocytes # (Auto) 2.3, Monocytes # (Auto) 0.9, Eosinophils # (Auto) 0.0, Basophils # (Auto) 0.0, Sodium Level 141, Potassium Level 3.6, Chloride Level 108H, Carbon Dioxide Level 21, Anion Gap 12, Blood Urea Nitrogen 10, Creatinine 0.72, Estimat Glomerular Filtration Rate > 60, BUN/Creatinine Ratio 14, Glucose Level 103, Calcium Level 9.0, Corrected Calcium 9.5, Total Bilirubin 0.6, Aspartate Amino Transf (AST/SGOT) 21, Alanine Aminotransferase (ALT/SGPT) 26, Alkaline Phosphatase 62, Total Protein 5.9L, Albumin 3.4 A/P: Assessment/Dx: Sinus tachycardia, Palpitations, borderline positive troponin Plan: Sinus tachycardia, very low risk for pulmonary embolism. Borderline positive troponin: Echocardiogram done 01/22/2020 showed normal LV systolic function with no regional wall motion abnormalities. Nuclear stress test pending. If normal, the patient can be discharged to follow-up as an outpatient with Dr. Manuel and myself. Thank you for your consultation. Please call me if you have any questions. Nicko Emerson MD, FACP, FACC, FSCAI, FHRS, CCDS Interventional Cardiology Cardiac Electrophysiology Vascular Medicine and Endovascular Interventions Clinical Quality Measures AMI/AHF: ASA po Prior to arrival: Fritz Sherwood MD Jan 22, 2020 13:23
[2020-01-22] MEDS ORDERED: ATENOLOL 25 MG (TENORMIN) TAB ONE (14:36)
[2020-01-22] MEDS ORDERED: HYDROCHLOROTHIAZIDE 12.5 MG (HCTZ) CAP ONE (14:36)
[2020-01-22] MEDS ORDERED: LOSARTAN 25 MG (COZAAR) TAB ONE (14:36)
[2020-01-22] MEDS ORDERED: cloNIDine 0.1 MG (CATAPRES) TAB ONE (14:36)
[2020-01-22] MEDS ORDERED: HYDROCHLOROTHIAZIDE 12.5 MG (HCTZ) CAP PO SCH (14:45)
[2020-01-22] MEDS ORDERED: ATENOLOL 25 MG (TENORMIN) TAB PO SCH (14:45)
[2020-01-22] MEDS ORDERED: cloNIDine 0.1 MG (CATAPRES) TAB PO SCH (14:45)
--- NOTE | 2020-01-22 15:13 | Discharge Inst-Simple/Standard ---
Discharge Inst-Standard Reconcile Patient Problems Problems Reviewed?: Yes Patient Instructions/Follow Up Plan of Care/Instructions/FU: 1 wk [facility] via telemedicine Activity as Tolerated: Yes Discharge Diet: Regular Diet Return to The Hospital For: any concern for worsening symptoms, uncontrolled heart rate Medication List: Active Scripts Active Reported Otezla (Apremilast) 30 Mg Tablet 30 Mg PO BID PT WAS TOLD TO HOLD THIS MEDICATION STARTING 01-22-2020 X 7 DAYS Tums Ultra (Calcium Carbonate) 400 Mg Tab.chew 800 Mg PO PRN PRN Multivitamin 1 Each Tablet 1 Each PO DAILY Coq-10 (Ubidecarenone) 100 Mg Capsule 100 Mg PO DAILY Clonidine HCl 0.1 Mg Tablet 0.05 Mg PO 0600,1800 TAKES OF A 0.1MG TAB TWICE DAILY @0600 & 1800 Vitamin D3 (Cholecalciferol (Vitamin D3)) 125 Mcg Capsule 125 Mcg PO MO,WED,FRI Atorvastatin Calcium 10 Mg Tablet 10 Mg PO DAILY Hydrochlorothiazide 12.5 Mg Tablet 12.5 Mg PO 1200 Losartan Potassium 25 Mg Tablet 25 Mg PO 0000,1200 TAKES TWICE DAILY @ MIDNIGHT AND NOON Famotidine 40 Mg Tablet 40 Mg PO DAILY Atenolol 25 Mg Tablet 25 Mg PO DAILY Benadryl (Diphenhydramine HCl) 25 Mg Capsule 25-50 Mg PO HS PRN Cinnamon (Cinnamon Bark) 500 Mg Capsule 500 Mg PO DAILY Independence 3 Fish Oil Softgel (Independence-3 Fatty Acids/Fish Oil) 1 Each Capsule.dr 1 Each PO 1800 Doxazosin Mesylate 1 Mg Tablet 1 Mg PO 0000 Lab results: Laboratory Tests Test 01/21/20 16:00 01/22/20 03:26 Range/Units Troponin I 0.036 H < 0.028 <0.028 NG/ML White Blood Count 8.9 4.3-11.0 10^3/uL Red Blood Count 4.27 L 4.35-5.85 10^6/uL Hemoglobin 13.0 11.5-16.0 G/DL Hematocrit 39 35-52 % Mean Corpuscular Volume 90 80-99 FL Mean Corpuscular Hemoglobin 30 25-34 PG Mean Corpuscular Hemoglobin Concent 34 32-36 G/DL Red Cell Distribution Width 14.8 H 10.0-14.5 % Platelet Count 283 130-400 10^3/uL Mean Platelet Volume 9.8 7.4-10.4 FL Neutrophils (%) (Auto) 63 42-75 % Lymphocytes (%) (Auto) 26 12-44 % Monocytes (%) (Auto) 10 0-12 % Eosinophils (%) (Auto) 1 0-10 % Basophils (%) (Auto) 0 0-10 % Neutrophils # (Auto) 5.6 1.8-7.8 X 10^3 Lymphocytes # (Auto) 2.3 1.0-4.0 X 10^3 Monocytes # (Auto) 0.9 0.0-1.0 X 10^3 Eosinophils # (Auto) 0.0 0.0-0.3 10^3/uL Basophils # (Auto) 0.0 0.0-0.1 10^3/uL Sodium Level 141 135-145 MMOL/L Potassium Level 3.6 3.6-5.0 MMOL/L Chloride Level 108 H 98-107 MMOL/L Carbon Dioxide Level 21 21-32 MMOL/L Anion Gap 12 5-14 MMOL/L Blood Urea Nitrogen 10 7-18 MG/DL Creatinine 0.72 0.60-1.30 MG/DL Estimat Glomerular Filtration Rate > 60 BUN/Creatinine Ratio 14 Glucose Level 103 70-105 MG/DL Calcium Level 9.0 8.5-10.1 MG/DL Corrected Calcium 9.5 8.5-10.1 MG/DL Total Bilirubin 0.6 0.1-1.0 MG/DL Aspartate Amino Transf (AST/SGOT) 21 5-34 U/L Alanine Aminotransferase (ALT/SGPT) 26 0-55 U/L Alkaline Phosphatase 62 40-136 U/L Total Protein 5.9 L 6.4-8.2 GM/DL Albumin 3.4 3.2-4.5 GM/DL My orders: Orders - MONICA GREGORIO MD Admission Order(Inpt,Obs,Sdc) (01/21/20 18:16) Consult Cardiology (01/21/20 18:16) Telemetry (01/21/20 18:16) Neurological Checks Q3H (01/21/20 18:16) General/Regular (01/21/20 Dinner) Cbc With Automated Diff (01/22/20 03:00) Comprehensive Metabolic Panel (01/22/20 03:00) Troponin I (01/22/20 03:00) Echo W Doppler/Color Flow (01/22/20 08:00) Code/Resuscitation (01/21/20 18:16) Initiate Admission Nursing Pro .admission (01/21/20 18:16) Isolation Central Supply Req (01/21/20 18:16) Telemetry Nursing Assessment ( (01/21/20 18:16) Acetaminophen Tablet/Caplet (Tylenol T (01/21/20 18:30) Ondansetron Injection (Zofran Injectio (01/21/20 18:30) Sodium Chloride Flush (Catheter Flush Sy (01/21/20 18:30) Sodium Chloride Flush (Catheter Flush Sy (01/21/20 22:00) Ambulate 08,12, (01/21/20 18:37) Sequential Compression Device Q4H (01/21/20 18:37) Dvt/Vte Risk - Notifiy Physici Q4H (01/21/20 18:37) Pending Discharge Order (01/22/20 09:10) Regadenoson (Lexiscan (For Diagnostic Im (01/22/20 11:28) Losartan Tablet (Cozaar Tablet) (01/22/20 14:36) Atenolol Tablet (Tenormin Tablet) (01/22/20 14:36) Clonidine Tablet (Catapres Tablet) (01/22/20 14:36) Hydrochlorothiazide Cap/Tablet (Hctz Cap (01/22/20 14:36) MONICA GREGORIO MD Jan 22, 2020 15:13
[2020-01-22 16:00] VITALS: BP 158/82
[2020-01-22 18:46] VITALS: BP 158/82
[2020-01-22] MEDS ORDERED: LOSARTAN 25 MG (COZAAR) TAB PO SCH (21:00)
== END 2020-01-22 17:22 | disposition home or self-care (01) ==
LOC: EDUNIT# 13:07 → ER 13:08 → ICU 16:45
PROVIDERS: ADMIT Family Medicine; ATTEND Family Medicine
DX: R00.0 Tachycardia, unspecified (principal); I10 Essential (primary) hypertension; R60.9 Edema, unspecified; K21.9 Gastro-esophageal reflux disease without esophagitis; E78.00 Pure hypercholesterolemia, unspecified; K59.09 Other constipation; M19.90 Unspecified osteoarthritis, unspecified site; G89.29 Other chronic pain; M54.9 Dorsalgia, unspecified; L40.9 Psoriasis, unspecified; Z79.899 Other long term (current) drug therapy; Z88.8 Allergy status to other drugs, medicaments and biological substances; Z90.710 Acquired absence of both cervix and uterus; Z86.73 Personal history of transient ischemic attack (TIA), and cerebral infarction without residual deficits
CPT/HCPCS: 36415; 71045; 78452; 80053; 82150; 83690; 83735; 83874; 83880; 84443; 84484; 85025; 85379; 85610; 85730; 93005; 93017; 93041; 93306

== ENCOUNTER 2020-04-08 10:03 | Outpatient (RCR) | payer MEDICARE ==
[~2020-04-08 10:03] MED LIST changes: +APRE30TA2 PO; +ATOR10TA66 PO; +CALC10009 PO; +CHOL500050 PO; +FAMO40TA6 PO; +HYDR12.56 PO; +LOSA25TA41 PO; +MULT-1136 PO; +UBID100C17 PO
[2020-04-14] MEDS ORDERED: REGADENOSON 0.4 MG/5 ML SYR (LEXISCAN) IV ONE (12:32)
== END 2020-07-07 | disposition home or self-care (01) ==
LOC: CARD 10:03
PROVIDERS: ATTEND Internal Medicine Interventional Cardiology
DX: R00.2 Palpitations (principal); R06.02 Shortness of breath

== ENCOUNTER → 2021-02-02 | Outpatient (CLI) | payer MEDICARE ==
[~2021-02-02] MED LIST changes: +CATHETER FLUSH 10 ML SYR IV PRN; +CLN.1T PO; -CLON0.1T PO; +HOLD METFORMIN - RECEIVED CONTRAST 20 ML VIAL IV SCH; +IOHEXOL 350 MG/ML 100 ML (OMNIPAQUE 350) VIAL IV ONE; +NS 100 ML (IVPB) BAG IV ONE
--- NOTE | 2021-02-02 09:48 | Diagnostic Imaging Report ---
EXAMINATION: CT abdomen and pelvis with intravenous contrast. TECHNIQUE: Multiple contiguous axial images were obtained through the abdomen and pelvis after the uneventful administration of intravenous contrast. All CT scans use one or more of the following dose optimizing techniques: automated exposure control, MA and/or KvP adjustment based on patient size and exam type or iterative reconstruction. HISTORY: Persistent abdominal pain. COMPARISON: 04/15/2017. FINDINGS: The heart is unremarkable. A subpleural nodule seen in the left lung base measuring 0.7 cm, previously measuring 0.4 cm. There is focal bowel wall thickening in the proximal sigmoid colon. Numerous diverticuli are present without pericolonic inflammatory changes. No bowel obstruction. No free fluid or free air. There is hepatic steatosis. No focal hepatic lesions are seen. The portal vein is patent. The gallbladder surgically absent. No intra or extrahepatic biliary dilation. Stable nodule in the left adrenal gland measuring 1.7 cm. The right adrenal gland is unremarkable. The spleen, pancreas, and kidneys have a normal appearance. There is no pathologically enlarged mesenteric or retroperitoneal adenopathy. No acute osseous abnormalities. Chronic height loss is visualized in the L2 vertebral body. There is grade 1 anterolisthesis of L4 on L5. Ureters and bladder are grossly normal. There is no free air, loculated collection, or adenopathy in the pelvis. IMPRESSION: 1. Focal bowel wall thickening in the proximal sigmoid colon and area of numerous diverticuli. These findings likely represent sequelae of prior diverticulitis. No acute inflammatory changes are seen to suggest acute diverticulitis. Underlying malignancy is not excluded and correlation with colonoscopy findings is recommended if available. 2. Hepatic steatosis. No focal hepatic lesions. 3. Stable nodule in the left adrenal gland. 4. Subpleural nodule in the left lung base measuring 0.7 cm, previously measuring 0.[address] chest to further evaluate the remaining lungs and follow up in [address] 5. Chronic height loss in the L2 vertebral body. Dictated by: Dictated on workstation # [id number]
== END ==
LOC: RAD 08:45
PROVIDERS: ATTEND Family Medicine
DX: K63.89 Other specified diseases of intestine (principal); K76.0 Fatty (change of) liver, not elsewhere classified; E27.8 Other specified disorders of adrenal gland; M51.36 Other intervertebral disc degeneration, lumbar region; R91.1 Solitary pulmonary nodule
CPT/HCPCS: 74177

== ENCOUNTER 2021-02-10 05:37 | Outpatient (CLI) | payer MEDICARE ==
[~2021-02-10] VITALS: Ht 162.6 cm; Wt 95.3 kg
[~2021-02-10 05:37] MED LIST changes: -CATHETER FLUSH 10 ML SYR IV PRN; -HOLD METFORMIN - RECEIVED CONTRAST 20 ML VIAL IV SCH; -IOHEXOL 350 MG/ML 100 ML (OMNIPAQUE 350) VIAL IV ONE; -NS 100 ML (IVPB) BAG IV ONE
[2021-02-10] MEDS ORDERED: ASCO-129 PO (12:38)
[2021-02-10] MEDS ORDERED: ATEN25TA PO (12:38)
== END 2021-02-10 15:22 | disposition home or self-care (01) ==
LOC: PREOP 05:37
PROVIDERS: ATTEND Internal Medicine
DX: Z01.818 Encounter for other preprocedural examination (principal)

== ENCOUNTER → 2021-02-11 | Outpatient (CLI) | payer MEDICARE ==
[~2021-02-11] MED LIST changes: +ACHD5005 PO; +ASCO-129 PO; +TMSL.4C PO
--- NOTE | 2021-02-11 12:24 | Diagnostic Imaging Report ---
EXAMINATION: CT chest without contrast. TECHNIQUE: Multiple contiguous axial images were obtained through the chest without the use of intravenous contrast. All CT scans use one or more of the following dose optimizing techniques: automated exposure control, MA and/or KvP adjustment based on patient size and exam type or iterative reconstruction. HISTORY: PULMONARY NODULE COMPARISON: 02/02/2021 FINDINGS: There is no edema or pneumonia. No pleural effusion. No pneumothorax. The left lower lobe nodule is resolved and was likely atelectasis. There is mild lingular atelectasis. There is mild atelectasis in the right middle lobe. There is no axillary or supraclavicular lymphadenopathy. There is no mediastinal lymphadenopathy. Heart size is normal. There are mild coronary artery calcifications. There is a tiny pericardial effusion. Aorta is normal in caliber. Limited views of the upper abdomen show hepatic steatosis. There are no suspicious osseous lesions. IMPRESSION: 1. Left lower lobe pulmonary nodule has resolved consistent with a focal area of atelectasis. No suspicious nodules or specific follow-up is needed. 2. Tiny pericardial effusion and steatotic liver. Dictated by: Dictated on workstation # [id number]
== END ==
LOC: RAD 10:15
PROVIDERS: ATTEND Nurse Practitioner Family
DX: R91.1 Solitary pulmonary nodule (principal)
CPT/HCPCS: 71250

== ENCOUNTER 2021-02-13 09:17 | Day surgery (SDC) | payer MEDICARE ==
--- NOTE | 2021-02-10 06:01 | HISTORY AND PHYSICAL ---
DATE OF SERVICE: COLONOSCOPY HISTORY AND PHYSICAL HISTORY OF PRESENT ILLNESS: The patient is a 75-year-old white female referred by Dr. Manuel for screening colonoscopy. She is deemed to be of average risk as she is not aware of family history for colon cancer. She denies bright red blood per rectum, abdominal pain, change in bowel habit or change in weight. PAST MEDICAL HISTORY: Significant for hypertension and hyperlipidemia with no known history of coronary artery disease. She has a history of psoriasis for which she is on Enbrel and tolerating well. 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 PAST SURGICAL HISTORY: Significant for cholecystectomy many years ago, she had a vaginal hysterectomy for benign reasons, lumbar spine surgery and a total hip replacement many years ago for degenerative joint disease. FAMILY HISTORY: There is no known history for GI tract malignancy. Father had diabetes and prostate cancer, dying in his 80s. SOCIAL HISTORY: She is retired, with no past drinking or smoking history. REVIEW OF SYSTEMS: CONSTITUTIONAL: She denies change in weight, night sweats, chills or fever. She is fully COVID vaccinated. GASTROINTESTINAL: As noted in the HPI. PULMONARY: She denies cough, wheezing or dyspnea on exertion. CARDIOVASCULAR: She denies orthopnea, PND, pedal edema, chest pain, syncope or presyncope. PHYSICAL EXAMINATION: GENERAL: Reveals a pleasant overweight white female, in no acute distress. VITAL SIGNS: Blood pressure 130/80, weight 208 pounds, up 2.8 pounds from last office weight 5 years ago. HEENT: Unremarkable. CHEST: Clear to auscultation. CARDIOVASCULAR: Reveals a regular rate and rhythm without murmur, S3 or S4. ABDOMEN: Soft, supple without mass, organomegaly or tenderness. EXTREMITIES: Reveal no cyanosis, clubbing or edema. ASSESSMENT AND PLAN: The patient was set up for screening colonoscopy. Prep instructions with the Suprep kit were given and questions were answered. I thank you for the referral of this pleasant lady. Job ID: [id number] DocumentID: [id number] Dictated Date: 02/06/2021 10:45:05 X Ray Inspector Date: 02/06/2021 11:22:56 Dictated By: TRAM PERALTA MD
[~2021-02-13] VITALS: Ht 162.6 cm; Wt 95.3 kg
[~2021-02-13 09:17] MED LIST changes: -ACHD5005 PO; -TMSL.4C PO
--- NOTE | 2021-02-13 09:21 | Pre-Op Note & Conscious Sedat ---
Pre-Operative Progress Note H&P Reviewed The H&P was reviewed, patient examined and no changes noted. Date H&P Reviewed: February 13, 2021 Time H&P Reviewed: 09:20 Conscious Sedation Pre-Proced ASA Score 2 For ASA 3 and 4: Consider anesthesia and medical clearance. Also, for patients with a history of failed moderate sedation consider anesthesia. Airway Lungs Heart ASA score ASA 1: a normal healthy patient ASA 2: a patient with a mild systemic disease (mid diabetes, controlled hypertension, obesity ASA 3: a patient with a severe systemic disease that limits activity (angina, COPD, prior Myocardial infarction) ASA 4: a patient with an incapacitating disease that is a constant threat to life (CHF, renal failure) ASA 5: a moribund patient not expected to survive 24 hrs. (ruptured aneurysm) ASA 6: a declared brain- patient whose organs are being harvested. For emergent operations, add the letter E after the classification Mallampati Classification Grade 2 Sedation Plan Analgesia, Amnesia, Plan communicated to team members, Discussed options with patient/fam, Discussed risks with patient/fam The patient is an appropriate candidate to undergo the planned procedure, sedation, and anesthesia. The patient immediately re-assessed prior to indication. TRAM PERALTA MD February 13, 2021 09:21
[2021-02-13] MEDS ORDERED: LACTATED RINGERS 1,000 ML IV ONE (09:25)
[2021-02-13] MEDS ORDERED: LACTATED RINGERS 1,000 ML IV STA (09:38)
[2021-02-13] MEDS ORDERED: LIDOCAINE JELLY 2% 6 ML SYRINGE MM PRN (09:45)
[2021-02-13 10:03] VITALS: BP 138/88
[2021-02-13] MEDS ORDERED: LIDOCAINE JELLY 2% 6 ML SYRINGE ONE (10:17)
[2021-02-13] MEDS ORDERED: PROPOFOL INJECTION 50 ML IV ONE (10:24)
[2021-02-13] MEDS ORDERED: MIDAZOLAM 2 MG/2 ML (VERSED) VIAL ONE (10:24)
[2021-02-13] MEDS ORDERED: ONDANSETRON 4 MG/2 ML (SDV) Z0FRAN ONE (10:24)
[2021-02-13 11:05] VITALS: BP 124/66
[2021-02-13 11:10] VITALS: BP 129/57
[2021-02-13 11:15] VITALS: BP 112/53
[2021-02-13 11:45] VITALS: BP 124/64
[2021-02-13 12:00] VITALS: BP 124/64
--- NOTE | 2021-02-13 13:29 | Anesthesia-General Post-Op ---
MAC Patient Condition Mental Status/LOC: Same as Preop Cardiovascular: Satisfactory Nausea/Vomiting: Absent Respiratory: Satisfactory Pain: Controlled Complications: Absent Post Op Complications Complications None Follow Up Care/Instructions Patient Instructions None needed. Anesthesiology Discharge Order Discharge Order Patient is doing well, no complaints, stable vital signs, no apparent adverse anesthesia problems. No complications reported per nursing. ZORAN GRIJALVA CRNA February 13, 2021 13:29
--- NOTE | 2021-02-13 17:51 | OPERATIVE REPORT ---
DATE OF SERVICE: 02/13/2021 COLONOSCOPY SUMMARY INDICATION FOR THE PROCEDURE: History of polyps with abnormal CT scan with abnormal colon findings on CT scan. DESCRIPTION OF PROCEDURE: The patient was placed in the left lateral decubitus position. Prior to undergoing colonoscopy, digital rectal evaluation was performed. Anal sphincter tone was normal and the perianal reflexes intact. No abnormalities were noted on digital inspection of anal canal or distal rectal vault. The colonoscope was then inserted into the rectum and under direct visualization advanced to cecum. The cecum was identified by identification of ileocecal valve and cecal strap. Photographic documentation was obtained. Careful inspection was made as the colonoscope withdrawn. FINDINGS: There was no evidence for internal or external hemorrhoids and the rectum was unremarkable. Beginning in the mid sigmoid colon, there were moderate number of small to medium size sigmoid diverticulum with significant haustral hypertrophy. Present in the mid sigmoid colon was an inflammatory appearing 5 x 8 mm polyp, it was photographed and biopsied and ablated, it was friable with a small amount of blood loss estimated at 2 mL at most. Other than diverticular disease, the remainder of the sigmoid colon was unremarkable. No evidence for acute diverticulitis was noted. The descending colon, splenic flexure and transverse colon and hepatic flexure were unremarkable. Present in the distal ascending colon was a diminutive adenomatous appearing polyp 5 mm in size. It was photographed and biopsied and ablated with no subsequent blood loss. The remainder of the ascending colon and cecum were unremarkable. ASSESSMENT: Moderate diverticular disease with significant haustral hypertrophy confined to the sigmoid colon was noted without evidence for underlying cancer. There was an inflammatory appearing polyp noted in the mid sigmoid colon that was biopsied and ablated as well as an adenomatous appearing polyp noted in the distal ascending colon, which was biopsied and ablated. No other abnormalities noted on today's procedure. Considering the patient's age and medical comorbidities as long as there are no surprises on histopathology report, we will not advocate future surveillance colonoscopy. Job ID: [id number] DocumentID: [id number] Dictated Date: 02/13/2021 11:13:51 Dominatrix Date: 02/13/2021 17:51:25 Dictated By: TRAM PERALTA MD
== END 2021-02-13 12:10 | disposition home or self-care (01) ==
LOC: ENDO 09:17
PROVIDERS: ATTEND Internal Medicine
DX: D12.2 Benign neoplasm of ascending colon (principal); K63.5 Polyp of colon; R93.3 Abnormal findings on diagnostic imaging of other parts of digestive tract; K57.30 Diverticulosis of large intestine without perforation or abscess without bleeding; K59.39 Other megacolon; K21.9 Gastro-esophageal reflux disease without esophagitis; I10 Essential (primary) hypertension; E78.5 Hyperlipidemia, unspecified; M79.7 Fibromyalgia; G62.9 Polyneuropathy, unspecified; Z79.899 Other long term (current) drug therapy; Z86.79 Personal history of other diseases of the circulatory system; Z90.710 Acquired absence of both cervix and uterus; Z88.8 Allergy status to other drugs, medicaments and biological substances; Z86.12 Personal history of poliomyelitis; Z83.3 Family history of diabetes mellitus; Z80.42 Family history of malignant neoplasm of prostate

== ENCOUNTER 2021-02-16 17:30 | Emergency (ER) | payer MEDICARE ==
[~2021-02-16] VITALS: Ht 163 cm; Wt 95.3 kg
[2021-02-16 18:02] LABS: BASOPHILS # (AUTO) 0.1 10^3/uL (0.0-0.1); BASOPHILS % (AUTO) 1 % (0-10); EOSINOPHILS # (AUTO) 0.1 10^3/uL (0.0-0.3); EOSINOPHILS % (AUTO) 1 % (0-10); HEMATOCRIT 43 % (35-52); HEMOGLOBIN 14.4 g/dL (11.5-16.0); LYMPHOCYTES # (AUTO) 2.3 10^3/uL (1.0-4.0); LYMPHOCYTES % (AUTO) 22 % (12-44); MEAN CORPUSCULAR HEMOGLOBIN 30 pg (25-34); MEAN CORPUSCULAR HGB CONC 34 g/dL (32-36); MEAN CORPUSCULAR VOLUME 90 fL (80-99); MEAN PLATELET VOLUME 10.4 fL (9.0-12.2); MONOCYTES # (AUTO) 0.9 10^3/uL (0.0-1.0); MONOCYTES % (AUTO) 9 % (0-12); NEUTROPHILS # (AUTO) 6.7 10^3/uL (1.8-7.8); NEUTROPHILS % (AUTO) 67 % (42-75); PLATELET COUNT 290 10^3/uL (130-400); WHITE BLOOD COUNT 10.1 10^3/uL (4.3-11.0)
[2021-02-16 18:13] LABS: CHLORIDE 104 MMOL/L (98-107); POTASSIUM 3.6 MMOL/L (3.6-5.0); SODIUM 142 MMOL/L (135-145)
--- NOTE | 2021-02-16 18:13 | ED Abdominal Pain ---
General Chief Complaint: Abdominal/GI Problems Stated Complaint: BACK PAIN / ABD PAIN Nursing Triage Note: C/O L SIDED BACK PAIN THAT RADIATES TO THE FRONT. REPORTS HAVING A COLONSCOPY Sepsis Screen: No Definite Risk Source of Information: Patient Exam Limitations: No Limitations History of Present Illness Date Seen by Provider: February 16, 2021 Time Seen by Provider: 18:03 Initial Comments Patient is a 75-year-old female who presents to the emergency department today with a chief complaint of left flank pain. Patient states her pain started suddenly at about 4:00 this evening. She states it is in her back on the left side at about the level of L1-L2 and radiates around to the front. She states she has been a little bit nauseated but is not currently. She states she has been constipated not having any diarrhea. She denies any urinary complaints such as dysuria, urgency or frequency. Patient states that she had similar pain about a week ago last Tuesday but it resolved on its own. She denies fevers, chills, productive cough. She states laying flat seems to make her pain worse. Nothing makes it any better. She did try and take one of her husbands muscle relaxers but has not done anything for her pain. Patient states she has never had a kidney stone in the past. Patient states that she had a colonoscopy on the and had a couple of polyps removed. All other review of systems reviewed and negative except as stated above. Timing/Duration: 1-3 Hours Severity/Quality: Severe, Aching Location: LLQ, Flank Associated Symptoms: Back Pain, Nausea/Vomiting Allergies and Home Medications Allergies Coded Allergies: etanercept (Verified Allergy, Intermediate, HTN, 01/22/16) metoprolol (Verified Allergy, Mild, 01/22/16) triamterene (Verified Allergy, Unknown, 07/28/16) Home Medications Ascorbic Acid 500 Mg Tablet.er, 500 MG PO DAILY, (Reported) Atenolol 25 Mg Tablet, 25 MG PO BID, (Reported) Calcium Carbonate 400 Mg Tab.chew, 800 MG PO PRN PRN for INDIGESTION, (Reported) Cholecalciferol (Vitamin D3) 125 Mcg Capsule, 125 MCG PO MO,WED,FRI, (Reported) Clonidine HCl 0.1 Mg Tablet, 0.05 MG PO 0600,1800, (Reported) TAKES OF A 0.1MG TAB TWICE DAILY @0600 & 1800 Diphenhydramine HCl 25 Mg Capsule, 25-50 MG PO HS PRN for SLEEP, (Reported) Doxazosin Mesylate 1 Mg Tablet, 1 MG PO 0000, (Reported) Famotidine 40 Mg Tablet, 40 MG PO DAILY, (Reported) Hydrochlorothiazide 12.5 Mg Tablet, 12.5 MG PO 1200, (Reported) Losartan Potassium 25 Mg Tablet, 25 MG PO 0000,1200, (Reported) TAKES TWICE DAILY @ MIDNIGHT AND NOON Multivitamin 1 Each Tablet, 1 EACH PO DAILY, (Reported) [place]-3 Fatty Acids/Fish Oil 1 Each Capsule.dr, 1 EACH PO 1800, (Reported) Ubidecarenone 100 Mg Capsule, 100 MG PO DAILY, (Reported) Patient Home Medication List Home Medication List Reviewed: Yes Review of Systems Review of Systems Constitutional: see HPI EENTM: No Symptoms Reported Respiratory: No Symptoms Reported Cardiovascular: No Symptoms Reported Gastrointestinal: Abdominal Pain, Nausea Genitourinary: No Symptoms Reported Musculoskeletal: back pain All Other Systems Reviewed Negative Unless Noted: Yes Past Ivuhpgw-Juqgbp-Zmuwiv Hx Patient Social History Alcohol Use: Denies Use Smoking Status: Never a Smoker 2nd Hand Smoke Exposure: No Recent Infectious Disease Expo: No Recent Hopitalizations: No Immunizations Up To Date Tetanus Booster (TDap): Less than 5yrs Date of Influenza Vaccine: Jul 21, 2020 Seasonal Allergies Seasonal Allergies: No Past Medical History Surgeries: Yes (EGD/COLONOSCOPY, BACK SURGERY) Gallbladder, Hysterectomy, Joint Replacement Respiratory: No Cardiac: Yes (ELEVATED TRIGLYCERIDES) Chronic Edema/Swelling, High Cholesterol, Hypertension, Palpitations Neurological: Yes (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) TIA, Vertigo Reproductive Disorders: Yes (BENIGN TUMOR -HYSTERECTOMY AGE 29) 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 Sexually Transmitted Disease: No HIV/AIDS: No Gastrointestinal: Yes Gastroesophageal Reflux, Chronic Constipation Musculoskeletal: Yes (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) Arthritis, Chronic Back Pain, Contracture Endocrine: No Loss of Vision: Bilateral Hearing Impairment: Denies Cancer: No Psychosocial: No Integumentary: Yes Psoriasis Blood Disorders: No Adverse Reaction/Blood Tranf: No (N/A) Family Medical History Heart Disease, Diabetes, Hypertension Physical Exam Vital Signs Vital Signs - First Documented 02/16/21 17:36 Temp 36.4 Pulse 63 Resp 18 B/P (MAP) 197/100 (132) Pulse Ox 98 Capillary Refill : Less Than 3 Seconds Height/Weight/BMI Height: 5'4.00" Weight: 200lbs. 6.0oz. [id number]; 35.00 BMI Method:Stated General Appearance: WD/WN, mild distress HEENT: PERRL/EOMI Respiratory: lungs clear, normal breath sounds, no respiratory distress, no accessory muscle use Cardiovascular: regular rate, rhythm Gastrointestinal: normal bowel sounds, soft, tenderness (Left lower quadrant and left upper quadrant) Extremities: normal range of motion, non-tender, normal inspection, no pedal edema Neurologic/Psychiatric: alert, normal mood/affect, oriented x 3 Skin: normal color, warm/dry Progress/Results/Core Measures Results/Orders Lab Results Laboratory Tests Test 02/16/21 17:55 02/16/21 18:10 Range/Units White Blood Count 10.1 4.3-11.0 10^3/uL Red Blood Count 4.77 3.80-5.11 10^6/uL Hemoglobin 14.4 11.5-16.0 g/dL Hematocrit 43 35-52 % Mean Corpuscular Volume 90 80-99 fL Mean Corpuscular Hemoglobin 30 25-34 pg Mean Corpuscular Hemoglobin Concent 34 32-36 g/dL Red Cell Distribution Width 13.6 10.0-14.5 % Platelet Count 290 130-400 10^3/uL Mean Platelet Volume 10.4 9.0-12.2 fL Immature Granulocyte % (Auto) 0 % Neutrophils (%) (Auto) 67 42-75 % Lymphocytes (%) (Auto) 22 12-44 % Monocytes (%) (Auto) 9 0-12 % Eosinophils (%) (Auto) 1 0-10 % Basophils (%) (Auto) 1 0-10 % Neutrophils # (Auto) 6.7 1.8-7.8 10^3/uL Lymphocytes # (Auto) 2.3 1.0-4.0 10^3/uL Monocytes # (Auto) 0.9 0.0-1.0 10^3/uL Eosinophils # (Auto) 0.1 0.0-0.3 10^3/uL Basophils # (Auto) 0.1 0.0-0.1 10^3/uL Immature Granulocyte # (Auto) 0.0 0.0-0.1 10^3/uL Sodium Level 142 135-145 MMOL/L Potassium Level 3.6 3.6-5.0 MMOL/L Chloride Level 104 98-107 MMOL/L Carbon Dioxide Level 25 21-32 MMOL/L Anion Gap 13 5-14 MMOL/L Blood Urea Nitrogen 14 7-18 MG/DL Creatinine 0.86 0.60-1.30 MG/DL Estimat Glomerular Filtration Rate > 60 BUN/Creatinine Ratio 16 Glucose Level 114 H 70-105 MG/DL Calcium Level 9.8 8.5-10.1 MG/DL Corrected Calcium 9.8 8.5-10.1 MG/DL Total Bilirubin 0.4 0.1-1.0 MG/DL Aspartate Amino Transf (AST/SGOT) 26 5-34 U/L Alanine Aminotransferase (ALT/SGPT) 30 0-55 U/L Alkaline Phosphatase 62 40-136 U/L C-Reactive Protein High Sensitivity 1.29 H 0.00-0.50 MG/DL Total Protein 6.7 6.4-8.2 GM/DL Albumin 4.0 3.2-4.5 GM/DL Urine Color YELLOW Urine Clarity CLEAR Urine pH 6.0 5-9 Urine Specific [place] 1.020 1.016-1.022 Urine Protein NEGATIVE NEGATIVE Urine Glucose (UA) NEGATIVE NEGATIVE Urine Ketones NEGATIVE NEGATIVE Urine Nitrite NEGATIVE NEGATIVE Urine Bilirubin NEGATIVE NEGATIVE Urine Urobilinogen 0.2 < = 1.0 MG/DL Urine Leukocyte Esterase 1+ H NEGATIVE Urine RBC (Auto) 2+ H NEGATIVE Urine RBC 25-50 H /HPF Urine WBC 5-10 H /HPF Urine Squamous Epithelial Cells 2-5 /HPF Urine Crystals NONE /LPF Urine Bacteria NEGATIVE /HPF Urine Casts NONE /LPF Urine Mucus NEGATIVE /LPF Urine Culture Indicated NO My Orders Orders - LISA NAJERA MD Fentanyl Inj (Sublimaze Injection) (02/16/21 18:30) Ketorolac Injection (Toradol Injection) (02/16/21 18:30) Abdomen/Kub 1view (02/16/21 18:34) Ct Abd/Pelvis Wo(Kidney Stone) (02/16/21 18:34) Medications Given in ED Current Medications Medications Dose Ordered Sig/Cheng Route Start Time Stop Time Status Last Admin Dose Admin Fentanyl Citrate 50 mcg ONCE ONCE IVP 02/16/21 18:30 02/16/21 18:31 DC 02/16/21 18:39 50 MCG Ketorolac Tromethamine 10 mg ONCE ONCE IVP 02/16/21 18:30 02/16/21 18:31 DC 02/16/21 18:39 10 MG Vital Signs/I&O 02/16/21 17:36 Temp 36.4 Pulse 63 Resp 18 B/P (MAP) 197/100 (132) Pulse Ox 98 Blood Pressure Mean: 132 Progress Progress Note : Time: 19:42 Progress Note Patient reevaluated, sitting comfortably in the wheelchair at the bedside. Stat es that her pain is much improved. Patient states she feels comfortable to go home. Patient has normal renal function on her BM 7. She has evidence of hematuria on urinalysis with a few white blood cells but no overt evidence of urinary tract infection. She has a 2 mm left distal ureteral stone on CAT scan. I could not identify the stone on KUB. Patient is advised to drink lots of fluids at home to help flush the kidney stone. She will be given hydrocodone for home for pain management. She will also be placed on Flomax. Patient is given good return precautions. She verbalized understanding. All questions were sought and answered. Patient is stable for discharge. Diagnostic Imaging Diagonstic Imaging: Xray, CT Plain Films/CT/US/NM/MRI: abdomen Comments [facility] [place], [place] NAME: NARINDER SHAW [facility] REC#: [id number] PT STATUS: REG ER : 1945 PHYSICIAN: LISA NAJERA MD ADMIT DATE: 02/16/21/ER Draft Date of Exam:02/16/21 ABDOMEN/KUB 1VIEW EXAMINATION: Supine abdomen at 6:59 p.m. INDICATION: Left-sided pain. There is gas in both the large and small bowel in a nonspecific fashion. There also appears to be at least moderate amount of fecal material throughout the colon. These findings are similar to the CT abdomen/pelvis exam of 02/02/2021. There is no evidence for bowel obstruction. There is no mass or organomegaly appreciated. The osseous structures are intact. The total hip prosthesis on the right seen previously is again evident and no different. IMPRESSION: 1. The bowel gas pattern is nonspecific. There is no acute abnormality identified. 2. There is at least a moderate amount of fecal material throughout the colon. Dictated on workstation # [id number] Dict: 02/16/211911 Trans: 02/16/211915 [facility] [id number] Interpreted by: KELSIE PACHECO MD Electronically signed by: BRIAN [place]IA [place], [place] NAME: NARINDER SHAW [facility] REC#: [id number] PT STATUS: REG ER : 1945 PHYSICIAN: LISA NAJERA MD ADMIT DATE: 02/16/21/ER Draft Date of Exam:02/16/21 CT ABD/PELVIS WO(KIDNEY STONE) PROCEDURE: CT urinary tract, rule out kidney stone. TECHNIQUE: Multiple contiguous axial images were obtained through the abdomen and pelvis without the use of intravenous contrast. Auto Exposure Controls were utilized during the CT exam to meet ALARA standards for radiation dose reduction. DATE: February 16, 2021. COMPARISON: KUB February 16, 2021. CT abdomen and pelvis February 02, 2021. INDICATION: 75-year-old female, left flank pain. Hematuria. FINDINGS: There are limitations for evaluation of the abdominal organs, neoplastic processes, abscess, and limited evaluation of the vasculature relating to the lack of intravenous contrast. There are mild linear opacities in the visualized lung bases consistent with mild scarring and/or atelectasis. The heart is not enlarged. There is no pericardial effusion. The liver is unremarkable in size and contour. The patient is status post cholecystectomy. There is no biliary ductal dilation. The main pancreatic duct is not abnormally dilated. Limited noncontrast evaluation of the pancreatic parenchyma is unremarkable. The spleen is normal in size. There is a left adrenal nodule on axial image 29 which measures 1.9 cm in size. Internal attenuation measures 21 Hounsfield units. This is indeterminate. There is mild left hydronephrosis with inflammatory stranding along the length of the left ureter. There is a 2 mm stone in the left distal ureter on axial image 93. There is no right hydronephrosis. There is no identified right renal or ureteral stone. Urinary bladder is grossly unremarkable in appearance. The uterus is not seen and may be surgically absent. The intestinal tract is not distended. The appendix is unremarkable. There is no free intraperitoneal air. There is no drainable fluid collection. There is no free pelvic fluid. There are atherosclerotic calcifications. There is no abnormally enlarged lymph node in the abdomen or pelvis meeting CT size criteria for adenopathy. There is a right total hip prosthesis. There are multilevel degenerative changes of the spine. There is a remote prior compression deformity of L2. IMPRESSION: CT ABDOMEN AND PELVIS. 1. 2 mm stone in the left distal ureter with mild left hydronephrosis. Dictated on workstation # [id number] Dict: 02/16/211919 Trans: 02/16/211931 [facility] [id number] Interpreted by: NEERAJ VAUGHAN MD Electronically signed by: Departure Impression Primary Impression: Ureterolithiasis Disposition: 01 HOME, SELF-CARE Condition: Stable Departure-Patient Inst. Decision time for Depature: 19:43 Referrals: MONICA GREGORIO MD (PCP/Family) Primary Care Physician Patient Instructions: Kidney Stones in Adults Add. Discharge Instructions: Drink lots of fluids to stay well-hydrated and help to flush the kidney stone. Take the Flomax daily for the next 2 weeks until you passed the kidney stone. Strain your urine so that you can identify when you have passed her stone. I have given you a prescription for hydrocodone, take this 1 every 6 hours as needed for moderate to severe pain. Otherwise you can take Tylenol as needed for pain. Follow-up with your primary care physician. Return to the emergency room for reevaluation if you have any worsening pain that is not controlled with the pain medications, fever or any other emergent concerning symptoms. Scripts Hydrocodone/Acetaminophen (Hydrocodone-Acetamin 5-325 mg) 1 Each Tablet 1 TAB PO Q6H PRN for PAIN-MODERATE (5-7), #15 TAB Prov: LISA NAJERA MD 02/16/21 Tamsulosin HCl (Flomax) 0.4 Mg Cap 0.4 MG PO HS, #14 CAP Prov: LISA NAJERA MD 02/16/21 Copy Copies To 1: MONICA GREGORIO MD, KATHRYN M MD February 16, 2021 18:12
[2021-02-16 18:14] LABS: CALCIUM 9.8 MG/DL (8.5-10.1)
[2021-02-16 18:15] LABS: GLUCOSE 114 MG/DL (70-105); TOTAL PROTEIN 6.7 GM/DL (6.4-8.2)
[2021-02-16 18:17] LABS: BILIRUBIN,TOTAL 0.4 MG/DL (0.1-1.0); CARBON DIOXIDE 25 MMOL/L (21-32)
[2021-02-16 18:19] LABS: ALKALINE PHOSPHATASE 62 U/L (40-136); CREATININE SERUM 0.86 MG/DL (0.60-1.30); GFR ESTIMATED > 60
[2021-02-16 18:20] LABS: BUN/CREATININE RATIO 16
[2021-02-16 18:21] LABS: BILIRUBIN,URINE NEGATIVE (NEGATIVE); CLARITY,URINE CLEAR; COLOR,URINE YELLOW; GLUCOSE, URINE (UA) NEGATIVE (NEGATIVE); KETONES,URINE NEGATIVE (NEGATIVE); LEUKOCYTE ESTERASE ,URINE 1+ (NEGATIVE); NITRITE,URINE NEGATIVE (NEGATIVE); PROTEIN,URINE NEGATIVE (NEGATIVE)
[2021-02-16 18:22] LABS: ALANINE AMINOTRANSFERASE 30 U/L (0-55)
[2021-02-16] MEDS ORDERED: fentaNYL INJ 100 MCG/2 ML AMP IVP ONE (18:30)
[2021-02-16] MEDS ORDERED: KETOROLAC 30 MG/ML VIAL IVP ONE (18:30)
[2021-02-16 18:34] LABS: BACTERIA,URINE NEGATIVE /HPF; RBC,URINE 25-50 /HPF
--- NOTE | 2021-02-16 19:17 | Diagnostic Imaging Report ---
EXAMINATION: Supine abdomen at 6:59 p.m. INDICATION: Left-sided pain. There is gas in both the large and small bowel in a nonspecific fashion. There also appears to be at least moderate amount of fecal material throughout the colon. These findings are similar to the CT abdomen/pelvis exam of 02/02/2021. There is no evidence for bowel obstruction. There is no mass or organomegaly appreciated. The osseous structures are intact. The total hip prosthesis on the right seen previously is again evident and no different. IMPRESSION: 1. The bowel gas pattern is nonspecific. There is no acute abnormality identified. 2. There is at least a moderate amount of fecal material throughout the colon. Dictated by: Dictated on workstation # [id number]
--- NOTE | 2021-02-16 19:33 | Diagnostic Imaging Report ---
PROCEDURE: CT urinary tract, rule out kidney stone. TECHNIQUE: Multiple contiguous axial images were obtained through the abdomen and pelvis without the use of intravenous contrast. Auto Exposure Controls were utilized during the CT exam to meet ALARA standards for radiation dose reduction. DATE: February 16, 2021. COMPARISON: KUB February 16, 2021. CT abdomen and pelvis February 02, 2021. INDICATION: 75-year-old female, left flank pain. Hematuria. FINDINGS: There are limitations for evaluation of the abdominal organs, neoplastic processes, abscess, and limited evaluation of the vasculature relating to the lack of intravenous contrast. There are mild linear opacities in the visualized lung bases consistent with mild scarring and/or atelectasis. The heart is not enlarged. There is no pericardial effusion. The liver is unremarkable in size and contour. The patient is status post cholecystectomy. There is no biliary ductal dilation. The main pancreatic duct is not abnormally dilated. Limited noncontrast evaluation of the pancreatic parenchyma is unremarkable. The spleen is normal in size. There is a left adrenal nodule on axial image 29 which measures 1.9 cm in size. Internal attenuation measures 21 Hounsfield units. This is indeterminate. There is mild left hydronephrosis with inflammatory stranding along the length of the left ureter. There is a 2 mm stone in the left distal ureter on axial image 93. There is no right hydronephrosis. There is no identified right renal or ureteral stone. Urinary bladder is grossly unremarkable in appearance. The uterus is not seen and may be surgically absent. The intestinal tract is not distended. The appendix is unremarkable. There is no free intraperitoneal air. There is no drainable fluid collection. There is no free pelvic fluid. There are atherosclerotic calcifications. There is no abnormally enlarged lymph node in the abdomen or pelvis meeting CT size criteria for adenopathy. There is a right total hip prosthesis. There are multilevel degenerative changes of the spine. There is a remote prior compression deformity of L2. IMPRESSION: CT ABDOMEN AND PELVIS. 1. 2 mm stone in the left distal ureter with mild left hydronephrosis. Dictated by: Dictated on workstation # [id number]
[2021-02-16] MEDS ORDERED: TMSL.4C PO (19:45)
[2021-02-16] MEDS ORDERED: ACHD5005 PO (19:45)
[2021-02-16 19:51] VITALS: BP 155/98
[2021-02-16] MEDS ORDERED: HYDROcodone/APAP 5 MG/325 MG (LORTAB) TAB PO PRN (20:00)
== END 2021-02-16 19:55 | disposition home or self-care (01) ==
LOC: EDUNIT# 17:30 → ER 17:32
DX: N13.2 Hydronephrosis with renal and ureteral calculous obstruction (principal); I10 Essential (primary) hypertension; K21.9 Gastro-esophageal reflux disease without esophagitis; Z88.8 Allergy status to other drugs, medicaments and biological substances; Z79.899 Other long term (current) drug therapy
CPT/HCPCS: 36415; 74018; 74176; 80053; 81000; 85025; 86141

== ENCOUNTER → 2022-02-11 | Outpatient (CLI) | payer MEDICARE ==
[~2022-02-11] MED LIST changes: +ACHD5005 PO; +TMSL.4C PO
--- NOTE | 2022-02-11 16:07 | Diagnostic Imaging Report ---
PROCEDURE: CT head without contrast. TECHNIQUE: Multiple contiguous axial images were obtained through the brain without the use of intravenous contrast. Auto Exposure Controls were utilized during the CT exam to meet ALARA standards for radiation dose reduction. INDICATION: Injured in fall one week prior to study, presents with headache and blurred vision. COMPARISONS: None FINDINGS: Midline structures are not displaced. There are senescent changes of the brain with involutional changes and generalized atrophy. Few scattered background chronic areas of microvascular ischemic change seen. Hansen-white differentiation is maintained and there is no sulcal effacement. There are no abnormal extra-axial fluid collections or hemorrhage. Basilar cisterns appear normal. Sinuses, orbits and mastoid cells are unremarkable. Bone windows show no calvarial changes. There is some calcific atherosclerosis within the carotid siphons. IMPRESSION: The age-appropriate changes with some mild atrophy and few scattered areas of nonspecific white matter change. Overall however no acute findings identified by nonenhanced CT criteria. If symptoms warrant or persist an MRI may be of further value. Dictated by: Dictated on workstation # [id number]
== END ==
LOC: RAD 15:45
PROVIDERS: ATTEND Nurse Practitioner Family
DX: G31.1 Senile degeneration of brain, not elsewhere classified (principal)
CPT/HCPCS: 70450